=== PATIENT | female | born 1985 | race Caucasian/White ===

== ENCOUNTER 2020-04-01 18:28 | Outpatient (REF) | payer MEDICAID, SELFPAY ==
[2020-04-05 03:04] LABS: SARS-CoV-2 RNA Undetected (Undetected); SARS-CoV-2 Specimen Source Nasal
== END 2020-04-01 18:48 ==
LOC: NCHCN 18:28
PROVIDERS: Visit Provider Nurse Practitioner Community Health
DX: R05 Cough (principal); R06.02 Shortness of breath
CPT/HCPCS: U0003

== ENCOUNTER 2020-05-02 20:00 | Outpatient (REF) | payer MEDICAID, SELFPAY | END 2020-05-02 20:20 | LOC: NCHCN 20:00 | PROVIDERS: Visit Provider Nurse Practitioner Family | DX: R30.0 Dysuria (principal) | CPT/HCPCS: 87086 ==

== ENCOUNTER 2020-05-17 16:10 | Outpatient (REF) | payer MEDICAID, SELFPAY ==
[2020-05-22 02:01] LABS: SARS-CoV-2 RNA Undetected (Undetected); SARS-CoV-2 Specimen Source Nasal
== END 2020-05-17 16:30 ==
LOC: NCHCN 16:10
PROVIDERS: Visit Provider Family Medicine
DX: J02.9 Acute pharyngitis, unspecified (principal)
CPT/HCPCS: U0003

== ENCOUNTER 2020-07-09 11:34 | Outpatient (REF) | payer MEDICAID, SELFPAY ==
[2020-07-09 13:27] LABS: Abs Immature Grans 0.05 10^3/uL (0.0-0.06); Absolute Basophil Count 0.04 10^3/uL (0.0-0.2); Absolute Eosinophil Count 0.23 10^3/uL (0.0-0.7); Absolute Lymphocyte Count 3.92 10^3/uL (1.2-3.4); Absolute Neutrophil Count 7.29 10^3/uL (1.2-6.7); Basophils % 0.3; Eosinophils % 1.9; HCT 41.6 % (36.0-46.0); HGB 13.2 g/dL (11.2-15.7); Immature Grans % 0.4; Lymphocytes % 31.8; MCH 28.6 pg (27.0-33.0); MCHC 31.7 % (32.0-36.0); MPV 9.2 fL (8.0-11.0); Monocytes % 6.5; Neutrophils % 59.1; Nucleated RBC 0 %; Platelet Count 497 10^3/uL (130-400); RBC 4.62 10^6/uL (3.93-5.22); RDW 13.9 % (11.7-14.6); RDW-SD 45.8 fL; WBC 12.33 10^3/uL (4.4-10.8)
== END 2020-07-09 11:54 ==
LOC: NCHCN 11:34
PROVIDERS: PCP Nurse Practitioner Community Health; Visit Provider Internal Medicine Rheumatology
DX: M47.817 Spondylosis without myelopathy or radiculopathy, lumbosacral region (principal); Z79.899 Other long term (current) drug therapy
CPT/HCPCS: 85025

== ENCOUNTER 2020-09-02 16:57 | Outpatient (REF) | payer MEDICAID, SELFPAY ==
[2020-09-02 21:27] LABS: Abs Immature Grans 0.04 10^3/uL (0.0-0.06); Absolute Basophil Count 0.05 10^3/uL (0.0-0.2); Absolute Eosinophil Count 0.43 10^3/uL (0.0-0.7); Absolute Lymphocyte Count 3.86 10^3/uL (1.2-3.4); Absolute Monocyte Count 0.75 10^3/uL (0.1-0.8); Basophils % 0.4; Eosinophils % 3.7; HCT 41.7 % (36.0-46.0); HGB 13.6 g/dL (11.2-15.7); Immature Grans % 0.3; Lymphocytes % 33.5; MCH 29.2 pg (27.0-33.0); MCHC 32.6 % (32.0-36.0); MCV 89.5 fL (80-95); MPV 9.6 fL (8.0-11.0); Monocytes % 6.5; Neutrophils % 55.6; Nucleated RBC 0 %; Platelet Count 497 10^3/uL (130-400); RBC 4.66 10^6/uL (3.93-5.22); RDW-SD 45.8 fL; WBC 11.53 10^3/uL (4.4-10.8)
[2020-09-02 21:28] LABS: Absolute Neutrophil Count 6.41 10^3/uL (1.2-6.7)
[2020-09-02 21:34] LABS: C-Reactive Protein 1.12 mg/dL (0.0-0.3)
[2020-09-03 16:14] LABS: ESR 16 mm/hr (<or=20)
== END 2020-09-02 16:58 | disposition home or self-care (01) ==
LOC: NCHCN 16:57
PROVIDERS: PCP Nurse Practitioner Community Health; Visit Provider Nurse Practitioner Family
DX: R51.9 Headache, unspecified (principal); M47.9 Spondylosis, unspecified
CPT/HCPCS: 85652; 85025; 86140

== ENCOUNTER 2021-01-01 15:35 | Outpatient (REF) | payer MEDICAID, SELFPAY ==
[2021-01-01 22:05] LABS: Abs Immature Grans 0.09 10^3/uL (0.0-0.06); Absolute Basophil Count 0.06 10^3/uL (0.0-0.2); Absolute Monocyte Count 1.02 10^3/uL (0.1-0.8); Basophils % 0.4; Eosinophils % 2.4; HCT 38.7 % (36.0-46.0); HGB 12.8 g/dL (11.2-15.7); Immature Grans % 0.6; Lymphocytes % 32.1; MCH 29.5 pg (27.0-33.0); MCHC 33.1 % (32.0-36.0); MCV 89.2 fL (80-95); MPV 9.6 fL (8.0-11.0); Monocytes % 7.1; Neutrophils % 57.4; Nucleated RBC 0 %; Platelet Count 495 10^3/uL (130-400); RBC 4.34 10^6/uL (3.93-5.22); RDW-SD 45.8 fL; WBC 14.32 10^3/uL (4.4-10.8)
[2021-01-01 22:13] LABS: Absolute Eosinophil Count 0.34 10^3/uL (0.0-0.7); Absolute Neutrophil Count 8.22 10^3/uL (1.2-6.7)
== END 2021-01-01 15:36 | disposition home or self-care (01) ==
LOC: LBN 15:35
PROVIDERS: PCP Nurse Practitioner Community Health; Visit Provider Internal Medicine Rheumatology
DX: M47.817 Spondylosis without myelopathy or radiculopathy, lumbosacral region (principal); Z79.899 Other long term (current) drug therapy
CPT/HCPCS: 85025

== ENCOUNTER 2021-01-13 15:59 | Outpatient (CLI) | payer MEDICAID, SELFPAY ==
[2021-01-13] MEDS: Omnipaque 350 MG/ML 50 ML BTL IJ (14:37)
[2021-01-13] MEDS: Breeza Beverage 473 ML BTL PO (14:39)
[2021-01-13] MEDS: Normal Saline - Diluent 50 ML VIAL IV (16:32)
[2021-01-13] MEDS: Omnipaque 350 MG/ML 100 ML BTL IJ (16:33)
[2021-01-13] MEDS: Normal Saline Flush 10 ML SYR IVP (16:33)
--- NOTE | 2021-01-13 16:39 | DI.CT_ITS ---
Exam(s) CT ABDOMEN PELVIS W EXAM: CT ABDOMEN PELVIS W CLINICAL HISTORY: LLQ ABD PAIN R10.32 NO RF. TECHNIQUE: Imaging Protocol: Axial computed tomography images with coronal and sagittal reformatted images were created and reviewed CONTRAST MATERIAL: Intravenous: Omnipaque 350 Contrast volume:100 ml Oral: yes COMPARISON: No exams were available for comparison FINDINGS: ABDOMEN: Lung Bases: Normal where visualized. Liver: Moderate enlargement. Moderate hepatic steatosis.. No measurable mass. Gallbladder and biliary tract: Small stone dependent portion of gallbladder. No gallbladder wall thi ckening, biliary dilatation or pericholecystic fluid. Pancreas: Normal density, no abnormal calcifications or inflammatory process. Spleen: Normal. Kidneys: Normal size, contour and axis. 5 millimeter nonobstructing stone mid left kidney. No obstr uctive uropathy. No masses seen. Adrenal glands: No masses seen. Abdominal Aorta: Abdominal portion non-dilated. PELVIS: Bladder: No gross wall thickening. No calculi.No focal mass. Bowel: No obstruction or bowel wall thickening. Appendix normal. No diverticular changes visible. Peritoneal cavity: No ascites, collection or mesenteric inflammatory response. Bones: Within normal limits for age. Reproductive organs: Within normal limits. Lymph nodes: Unremarkable. Impression: 5 millimeter nonobstructing stone mid left kidney. No evidence of hydronephrosis. Bowel unremarkabl e. RADIATION DOSE DELIVERED: 1,421.41mGy.cm Total DLP DATA REPOSITORY: All CT scans at this facility are submitted to the National Radiology Data Registry (NRDR) Dose Index Registry (DIR) with the [employer] (ACR). RADIATION OPTIMIZATION: All CT scans at this facility use at least one of these dose optimization te chniques: automated exposure control; mA and/or kV adjustment per patient size (includes targeted exa ms where dose is matched to clinical indication); or iterative reconstruction.
--- NOTE | 2021-01-13 17:00 | DI.VRAD_ITS ---
PROCEDURE INFORMATION: Exam: CT Abdomen And Pelvis With Contrast Exam date and time: 01/13/2021 2:01 PM Age: 35 years old Clinical indication: Other: Llq pain TECHNIQUE: Imaging protocol: Computed tomography of the abdomen and pelvis with contrast. Total images: 1307 Contrast material: OMNIPAQUE 350; Contrast volume: 100 ml; Contrast route: INTRAVENOUS (IV); COMPARISON: No relevant prior studies available. FINDINGS: Liver: The liver is diffusely low in attenuation. Gallbladder and bile ducts: There is a tiny calcified gallstone. Pancreas: Normal. No ductal dilation. Spleen: Normal. No splenomegaly. Adrenal glands: Normal. No mass. Kidneys and ureters: There is a 0.5 cm left renal calculus. No hydronephrosis. Stomach and bowel: There is short-segment terminal ileal wall thickening (series 4, image 64). No dilated loops of bowel to suggest obstruction. Appendix: No evidence of appendicitis. Intraperitoneal space: Unremarkable. No free air. No significant fluid collection. Vasculature: Unremarkable. No abdominal aortic aneurysm. Lymph nodes: Unremarkable. No enlarged lymph nodes. Urinary bladder: Unremarkable as visualized. Reproductive: Unremarkable as visualized. Bones/joints: Unremarkable. No acute fracture. Soft tissues: Unremarkable. IMPRESSION: 1. Short segment terminal ileal wall thickening. No dilated loops of bowel to suggest obstruction. Differential considerations include inflammatory bowel disease and infectious etiology. 2. Left renal calculus 0.5 cm. No hydronephrosis. Dictated and Authenticated by: Philippe Calixto MD. Ordering:DEANDRA Trujillo MD
== END 2021-01-13 16:19 ==
PROVIDERS: PCP Nurse Practitioner Community Health; Visit Provider Nurse Practitioner Family
DX: N20.0 Calculus of kidney (principal); K63.89 Other specified diseases of intestine
CPT/HCPCS: 74177; J3490; Q9967

== ENCOUNTER 2021-01-13 19:40 | Outpatient (REF) | payer MEDICAID, SELFPAY ==
[2021-01-13 21:38] LABS: BUN 11 mg/dL (7-18); CREATININE 0.9 mg/dL (0.55-1.02); Calcium 8.8 mg/dL (8.5-10.1); Glucose 90 mg/dL (74-106); Potassium 3.9 mmol/L (3.5-5.1); Sodium 141 mmol/L (136-145)
[2021-01-13 21:39] LABS: Anion Gap 10.5 mmol/L (3-11); CO2 26.5 mmol/L (21.0-32.0); Chloride 104 mmol/L (98-107)
[2021-01-13 21:47] LABS: Abs Immature Grans 0.05 10^3/uL (0.0-0.06); Absolute Eosinophil Count 0.38 10^3/uL (0.0-0.7); Absolute Lymphocyte Count 4.06 10^3/uL (1.2-3.4); Absolute Monocyte Count 0.83 10^3/uL (0.1-0.8); Absolute Neutrophil Count 6.05 10^3/uL (1.2-6.7); Basophils % 0.4; Eosinophils % 3.3; HGB 13.1 g/dL (11.2-15.7); Immature Grans % 0.4; Lymphocytes % 35.6; MCH 29.2 pg (27.0-33.0); MCV 91.5 fL (80-95); MPV 9.6 fL (8.0-11.0); Monocytes % 7.3; Nucleated RBC 0 %; Platelet Count 534 10^3/uL (130-400); RBC 4.48 10^6/uL (3.93-5.22); RDW 13.4 % (11.7-14.6); RDW-SD 45.7 fL; WBC 11.41 10^3/uL (4.4-10.8)
[2021-01-13 21:48] LABS: Absolute Basophil Count 0.05 10^3/uL (0.0-0.2)
[2021-01-13 21:53] LABS: ESR 14 mm/hr (0-20)
[2021-01-14 16:56] LABS: CRP, High Sensitivity 4.16 mg/L (See Note)
== END 2021-01-13 19:41 | disposition home or self-care (01) ==
LOC: LBN 19:40
PROVIDERS: PCP Nurse Practitioner Community Health; Visit Provider Nurse Practitioner Family
DX: R10.32 Left lower quadrant pain (principal)
CPT/HCPCS: 80048; 85652; 86141; 85025

== ENCOUNTER 2021-06-10 10:55 | Outpatient (REF) | payer MEDICAID, SELFPAY ==
[2021-06-10 15:01] LABS: ALT 77 U/L (14-59); AST 59 U/L (15-37); Albumin 3.8 g/dL (3.4-5.0); Alkaline Phosphatase 76 U/L (46-116); Anion Gap 8.6 mmol/L (3-11); BUN 14 mg/dL (7-18); Bilirubin, Total 0.4 mg/dL (0.2-1.0); C-Reactive Protein 0.83 mg/dL (0.0-0.3); CO2 26.4 mmol/L (21.0-32.0); CREATININE 0.9 mg/dL (0.55-1.02); Calcium 8.9 mg/dL (8.5-10.1); Chloride 105 mmol/L (98-107); Glucose 90 mg/dL (74-106); Potassium 4.3 mmol/L (3.5-5.1); Sodium 140 mmol/L (136-145); Total Protein 7.1 g/dL (6.4-8.2)
== END 2021-06-10 10:56 | disposition home or self-care (01) ==
LOC: LBN 10:55
PROVIDERS: PCP Nurse Practitioner Community Health; Visit Provider Internal Medicine Rheumatology
DX: M06.9 Rheumatoid arthritis, unspecified (principal); Z79.899 Other long term (current) drug therapy
CPT/HCPCS: 80053; 86140

== ENCOUNTER 2021-06-19 15:08 | Outpatient (REF) | payer MEDICAID, SELFPAY ==
[2021-06-19 21:28] LABS: Abs Immature Grans 0.03 10^3/uL (0.0-0.06); Absolute Basophil Count 0.05 10^3/uL (0.0-0.2); Absolute Lymphocyte Count 3.56 10^3/uL (1.2-3.4); Absolute Monocyte Count 0.74 10^3/uL (0.1-0.8); Absolute Neutrophil Count 5.19 10^3/uL (1.2-6.7); Basophils % 0.5; HGB 12.7 g/dL (11.2-15.7); Immature Grans % 0.3; Lymphocytes % 36.1; MCHC 31.8 % (32.0-36.0); MCV 88.3 fL (80-95); MPV 9.4 fL (8.0-11.0); Monocytes % 7.5; Neutrophils % 52.6; Nucleated RBC 0 %; Platelet Count 555 10^3/uL (130-400); RBC 4.53 10^6/uL (3.93-5.22); RDW 13.6 % (11.7-14.6); WBC 9.87 10^3/uL (4.4-10.8)
[2021-06-23 10:27] LABS: Hepatitis B Surface Ag Negative (Negative)
== END 2021-06-19 15:09 | disposition home or self-care (01) ==
LOC: LBN 15:08
PROVIDERS: PCP Nurse Practitioner Community Health; Visit Provider Internal Medicine Rheumatology
DX: M06.9 Rheumatoid arthritis, unspecified (principal); Z79.899 Other long term (current) drug therapy
CPT/HCPCS: 87340; 85025

== ENCOUNTER 2021-07-02 16:16 | Outpatient (CLI) | payer MEDICAID, SELFPAY ==
--- NOTE | 2021-07-02 16:14 | DI.RAD_ITS ---
Exam(s) XR HAND LT COMPLETE EXAM: XR HAND LT COMPLETE CLINICAL HISTORY: PAIN LT HAND M79.642, TOOK A PUNCH TO THE LEFT HAND AND WRIST. TECHNIQUE: 2D digital imaging was performed. COMPARISON: No exams were available for comparison FINDINGS: There is no evidence of fracture or dislocation. No abnormal soft tissue densities. No osseous lesi ons. No radiopaque foreign body. IMPRESSION: DATA REPOSITORY: RADIATION DOSE DELIVERED:
--- NOTE | 2021-07-02 16:14 | DI.RAD_ITS ---
Exam(s) XR WRIST LT COMP NAVICULAR EXAM: XR WRIST LT COMP NAVICULAR CLINICAL HISTORY: PAIN LT HAND M79.642. TECHNIQUE: 2D digital imaging was performed. COMPARISON: CR XR HAND LT COMPLETE from 07/02/2021 FINDINGS: No evidence of acute fracture nor dislocation. Mild negative ulnar variance. Scapholunate distance is normal. No scaphoid fracture evident. IMPRESSION: No fracture evident. DATA REPOSITORY: RADIATION DOSE DELIVERED:
--- NOTE | 2021-07-02 16:28 | DI.VRAD_ITS ---
PROCEDURE INFORMATION: Exam: XR Left Wrist Exam date and time: 07/02/2021 4:15 PM Age: 36 years old Clinical indication: Wrist; Patient HX: Left hand pain TECHNIQUE: Imaging protocol: XR Left wrist. Views: 3 or more views. COMPARISON: CR XR HAND LT COMPLETE 07/02/2021 4:12 PM FINDINGS: Bones/joints: Normal. Soft tissues: Normal. IMPRESSION: No acute findings. Dictated and Authenticated by: Jazmin Noble MD. Ordering:ERNESTO Fernández MD
--- NOTE | 2021-07-02 16:37 | DI.VRAD_ITS ---
PROCEDURE INFORMATION: Exam: XR Left Hand Exam date and time: 07/02/2021 4:15 PM Age: 36 years old Clinical indication: Patient HX: Left hand pain TECHNIQUE: Imaging protocol: XR Left hand. Views: 3 or more views. COMPARISON: No relevant prior studies available. FINDINGS: Bones/joints: Normal. Soft tissues: Normal. IMPRESSION: No acute findings. Dictated and Authenticated by: Jazmin Noble MD. Ordering:ERNESTO Fernández MD
== END 2021-07-02 16:36 ==
PROVIDERS: PCP Nurse Practitioner Community Health; Visit Provider Physician Assistant Medical
DX: M79.642 Pain in left hand (principal); M25.532 Pain in left wrist
CPT/HCPCS: 73110; 73130

== ENCOUNTER 2021-08-06 09:50 | Outpatient (REF) | payer MEDICAID, SELFPAY ==
[2021-08-06 14:41] LABS: Abs Immature Grans 0.03 10^3/uL (0.0-0.06); Absolute Basophil Count 0.05 10^3/uL (0.0-0.2); Absolute Eosinophil Count 0.28 10^3/uL (0.0-0.7); Absolute Lymphocyte Count 3.35 10^3/uL (1.2-3.4); Absolute Monocyte Count 0.62 10^3/uL (0.1-0.8); Absolute Neutrophil Count 4.22 10^3/uL (1.2-6.7); Basophils % 0.6; Eosinophils % 3.3; HGB 12.6 g/dL (11.2-15.7); Immature Grans % 0.4; Lymphocytes % 39.2; MCH 28.3 pg (27.0-33.0); MCHC 31.5 % (32.0-36.0); MCV 89.9 fL (80-95); MPV 9.7 fL (8.0-11.0); Monocytes % 7.3; Neutrophils % 49.2; Nucleated RBC 0 %; Platelet Count 545 10^3/uL (130-400); RBC 4.45 10^6/uL (3.93-5.22); RDW 14.6 % (11.7-14.6); RDW-SD 48.5 fL; WBC 8.55 10^3/uL (4.4-10.8)
[2021-08-06 15:17] LABS: ALT 112 U/L (14-59); AST 78 U/L (15-37); Alkaline Phosphatase 80 U/L (46-116); Anion Gap 10.8 mmol/L (3-11); BUN 9 mg/dL (7-18); Bilirubin, Total 0.5 mg/dL (0.2-1.0); C-Reactive Protein 0.42 mg/dL (0.0-0.3); CO2 25.2 mmol/L (21.0-32.0); CREATININE 0.7 mg/dL (0.55-1.02); Calcium 8.8 mg/dL (8.5-10.1); Chloride 102 mmol/L (98-107); Glucose 91 mg/dL (74-106); Potassium 4.1 mmol/L (3.5-5.1); Sodium 138 mmol/L (136-145); Total Protein 7.5 g/dL (6.4-8.2)
== END 2021-08-06 09:51 | disposition home or self-care (01) ==
LOC: LBN 09:50
PROVIDERS: PCP Nurse Practitioner Community Health; Visit Provider Internal Medicine Rheumatology
DX: M06.8A Other specified rheumatoid arthritis, other specified site (principal); Z79.899 Other long term (current) drug therapy
CPT/HCPCS: 80053; 85025; 86140

== ENCOUNTER 2021-08-13 10:12 | Outpatient (REF) | payer MEDICAID, SELFPAY | END 2021-08-13 10:13 | disposition home or self-care (01) | LOC: NCHCN 10:12 | PROVIDERS: PCP Nurse Practitioner Community Health; Visit Provider Physician Assistant Medical | DX: J02.9 Acute pharyngitis, unspecified (principal) | CPT/HCPCS: 87070 ==

== ENCOUNTER 2021-08-21 18:56 | Outpatient (REF) | payer MEDICAID, SELFPAY ==
[2021-08-21 15:02] LABS: Abs Immature Grans 0.06 10^3/uL (0.0-0.06); Absolute Basophil Count 0.07 10^3/uL (0.0-0.2); Absolute Eosinophil Count 0.35 10^3/uL (0.0-0.7); Absolute Lymphocyte Count 3.12 10^3/uL (1.2-3.4); Absolute Neutrophil Count 7.05 10^3/uL (1.2-6.7); Basophils % 0.6; HCT 40.9 % (36.0-46.0); Immature Grans % 0.5; Lymphocytes % 26.8; MCH 28.4 pg (27.0-33.0); MCHC 31.8 % (32.0-36.0); MCV 89.5 fL (80-95); MPV 9.5 fL (8.0-11.0); Monocytes % 8.6; Neutrophils % 60.5; Nucleated RBC 0 %; Platelet Count 514 10^3/uL (130-400); RBC 4.57 10^6/uL (3.93-5.22); RDW 14.5 % (11.7-14.6); RDW-SD 47.3 fL; WBC 11.66 10^3/uL (4.4-10.8)
[2021-08-21 15:21] LABS: ALT 94 U/L (14-59); AST 65 U/L (15-37); Albumin 3.9 g/dL (3.4-5.0); Alkaline Phosphatase 83 U/L (46-116); Anion Gap 9.8 mmol/L (3-11); BUN 8 mg/dL (7-18); Bilirubin, Total 0.3 mg/dL (0.2-1.0); C-Reactive Protein 1.29 mg/dL (0.0-0.3); CO2 23.2 mmol/L (21.0-32.0); CREATININE 0.9 mg/dL (0.55-1.02); Chloride 105 mmol/L (98-107); Glucose 84 mg/dL (74-106); Sodium 138 mmol/L (136-145); TSH 0.95 uIU/mL (0.36-3.74); Total Protein 7.6 g/dL (6.4-8.2)
== END 2021-08-21 18:57 | disposition home or self-care (01) ==
LOC: LBN 18:56
PROVIDERS: PCP Nurse Practitioner Community Health; Visit Provider Internal Medicine Rheumatology
DX: Z13.29 Encounter for screening for other suspected endocrine disorder (principal); M06.0A Rheumatoid arthritis without rheumatoid factor, other specified site; Z79.899 Other long term (current) drug therapy
CPT/HCPCS: 80053; 84443; 85025; 86140

== ENCOUNTER 2021-09-15 10:40 | Outpatient (REF) | payer MEDICAID, SELFPAY ==
[2021-09-15 14:27] LABS: Abs Immature Grans 0.05 10^3/uL (0.0-0.06); Absolute Basophil Count 0.09 10^3/uL (0.0-0.2); Absolute Eosinophil Count 0.35 10^3/uL (0.0-0.7); Absolute Lymphocyte Count 2.93 10^3/uL (1.2-3.4); Basophils % 0.7; Eosinophils % 2.8; HCT 39.9 % (36.0-46.0); HGB 12.6 g/dL (11.2-15.7); Immature Grans % 0.4; Lymphocytes % 23.2; MCH 28.1 pg (27.0-33.0); MCHC 31.6 % (32.0-36.0); MCV 89.1 fL (80-95); MPV 9.6 fL (8.0-11.0); Monocytes % 7.4; Neutrophils % 65.5; Nucleated RBC 0 %; Platelet Count 594 10^3/uL (130-400); RBC 4.48 10^6/uL (3.93-5.22); RDW 14.5 % (11.7-14.6); RDW-SD 47.5 fL; WBC 12.65 10^3/uL (4.4-10.8)
[2021-09-15 14:28] LABS: Absolute Monocyte Count 0.94 10^3/uL (0.1-0.8); Absolute Neutrophil Count 8.29 10^3/uL (1.2-6.7)
[2021-09-15 15:02] LABS: ALT 40 U/L (14-59); AST 21 U/L (15-37); Albumin 3.6 g/dL (3.4-5.0); Alkaline Phosphatase 85 U/L (46-116); Bilirubin, Total 0.4 mg/dL (0.2-1.0); Ferritin 46 ng/mL (8-252); Total Protein 7.2 g/dL (6.4-8.2)
[2021-09-15 15:11] LABS: Bilirubin, Direct 0.2 mg/dL (0.0-0.2)
[2021-09-16 09:38] LABS: Hep A Total Ab w Rflx IgM Negative (Negative)
== END 2021-09-15 10:41 | disposition home or self-care (01) ==
LOC: NCHCN 10:40
PROVIDERS: Internal Medicine Rheumatology; PCP Nurse Practitioner Community Health; Visit Provider Nurse Practitioner Family
DX: R74.8 Abnormal levels of other serum enzymes (principal); K75.81 Nonalcoholic steatohepatitis (NASH)
CPT/HCPCS: 80076; 86709; 82728; 85025; 86140

== ENCOUNTER 2021-10-14 12:38 | Outpatient (REF) | payer MEDICAID, SELFPAY ==
[2021-10-14 17:01] LABS: Abs Immature Grans 0.02 10^3/uL (0.0-0.06); Absolute Basophil Count 0.05 10^3/uL (0.0-0.2); Absolute Eosinophil Count 0.31 10^3/uL (0.0-0.7); Absolute Lymphocyte Count 3.89 10^3/uL (1.2-3.4); Absolute Monocyte Count 0.77 10^3/uL (0.1-0.8); Absolute Neutrophil Count 3.91 10^3/uL (1.2-6.7); Basophils % 0.6; Eosinophils % 3.5; HCT 40.6 % (36.0-46.0); HGB 12.7 g/dL (11.2-15.7); Immature Grans % 0.2; Lymphocytes % 43.5; MCH 27.9 pg (27.0-33.0); MCHC 31.3 % (32.0-36.0); MCV 89.2 fL (80-95); MPV 9.4 fL (8.0-11.0); Monocytes % 8.6; Neutrophils % 43.6; Nucleated RBC 0 %; Platelet Count 492 10^3/uL (130-400); RBC 4.55 10^6/uL (3.93-5.22); RDW 14.3 % (11.7-14.6); RDW-SD 46.7 fL; WBC 8.95 10^3/uL (4.4-10.8)
[2021-10-14 17:12] LABS: ALT 53 U/L (14-59); AST 32 U/L (15-37); Albumin 3.9 g/dL (3.4-5.0); Alkaline Phosphatase 75 U/L (46-116); Bilirubin, Direct 0.1 mg/dL (0.0-0.2); Bilirubin, Total 0.5 mg/dL (0.2-1.0); C-Reactive Protein 0.62 mg/dL (0.0-0.3); CREATININE 0.8 mg/dL (0.55-1.02); Total Protein 7.2 g/dL (6.4-8.2)
== END 2021-10-14 12:39 | disposition home or self-care (01) ==
LOC: LBN 12:38
PROVIDERS: PCP Nurse Practitioner Community Health; Visit Provider Internal Medicine Rheumatology
DX: R74.8 Abnormal levels of other serum enzymes (principal); M06.0A Rheumatoid arthritis without rheumatoid factor, other specified site
CPT/HCPCS: 80076; 82565; 85025; 86140

== ENCOUNTER 2021-12-02 10:13 | Outpatient (REF) | payer MEDICAID, SELFPAY ==
[2021-12-02 14:37] LABS: Abs Immature Grans 0.03 10^3/uL (0.0-0.06); Absolute Basophil Count 0.05 10^3/uL (0.0-0.2); Absolute Eosinophil Count 0.52 10^3/uL (0.0-0.7); Absolute Lymphocyte Count 3.47 10^3/uL (1.2-3.4); Absolute Monocyte Count 0.64 10^3/uL (0.1-0.8); Absolute Neutrophil Count 4.42 10^3/uL (1.2-6.7); Basophils % 0.5; Eosinophils % 5.7; HCT 40.2 % (36.0-46.0); HGB 12.8 g/dL (11.2-15.7); Immature Grans % 0.3; MCHC 31.8 % (32.0-36.0); MCV 88 fL (80-95); MPV 9.6 fL (8.0-11.0); Neutrophils % 48.5; Platelet Count 537 10^3/uL (130-400); RBC 4.57 10^6/uL (3.93-5.22); RDW 14.6 % (11.7-14.6); RDW-SD 47.1 fL; WBC 9.13 10^3/uL (4.4-10.8)
[2021-12-02 15:59] LABS: ALT 70 U/L (14-59); AST 44 U/L (15-37); Albumin 3.8 g/dL (3.4-5.0); Alkaline Phosphatase 83 U/L (46-116); Bilirubin, Total 0.3 mg/dL (0.2-1.0); C-Reactive Protein 0.54 mg/dL (0.0-0.3); Calcium 8.6 mg/dL (8.5-10.1); Chloride 103 mmol/L (98-107); Glucose 99 mg/dL (74-106); Potassium 4.1 mmol/L (3.5-5.1); Sodium 139 mmol/L (136-145); Total Protein 7.3 g/dL (6.4-8.2)
[2021-12-02 16:18] LABS: BUN 10 mg/dL (7-18)
[2021-12-03 10:08] LABS: IgA 326 mg/dL (85-499)
[2021-12-03 18:18] LABS: Tissue Transglutaminase Ab IgA <1.2 U/mL
== END 2021-12-02 10:14 | disposition home or self-care (01) ==
LOC: LBN 10:13
PROVIDERS: PCP Nurse Practitioner Community Health; Visit Provider Internal Medicine Rheumatology
DX: M06.0A Rheumatoid arthritis without rheumatoid factor, other specified site (principal); Z79.899 Other long term (current) drug therapy; R14.0 Abdominal distension (gaseous)
CPT/HCPCS: 80053; 82784; 83516; 85025; 86140

== ENCOUNTER 2022-02-12 22:18 | Outpatient (REF) | payer MEDICAID, SELFPAY ==
[2022-02-12 22:23] LABS: Abs Immature Grans 0.03 10^3/uL (0.0-0.06); Absolute Basophil Count 0.06 10^3/uL (0.0-0.2); Absolute Eosinophil Count 0.19 10^3/uL (0.0-0.7); Absolute Lymphocyte Count 3.89 10^3/uL (1.2-3.4); Absolute Monocyte Count 0.96 10^3/uL (0.1-0.8); Absolute Neutrophil Count 7.78 10^3/uL (1.2-6.7); Basophils % 0.5; Eosinophils % 1.5; HCT 39.7 % (36.0-46.0); HGB 12.7 g/dL (11.2-15.7); Immature Grans % 0.2; Lymphocytes % 30.1; MCV 88 fL (80-95); MPV 9.6 fL (8.0-11.0); Monocytes % 7.4; Neutrophils % 60.3; Platelet Count 557 10^3/uL (130-400); RBC 4.53 10^6/uL (3.93-5.22); RDW 14.4 % (11.7-14.6); RDW-SD 46.5 fL; WBC 12.91 10^3/uL (4.4-10.8)
[2022-02-12 22:29] LABS: ALT 62 U/L (14-59); AST 42 U/L (15-37); Albumin 3.9 g/dL (3.4-5.0); Alkaline Phosphatase 73 U/L (46-116); Anion Gap 9.1 mmol/L (3-11); BUN 10 mg/dL (7-18); Bilirubin, Direct 0.1 mg/dL (0.0-0.2); Bilirubin, Total 0.4 mg/dL (0.2-1.0); CO2 27.9 mmol/L (21.0-32.0); CREATININE 0.9 mg/dL (0.55-1.02); Calcium 8.8 mg/dL (8.5-10.1); Chloride 103 mmol/L (98-107); Glucose 96 mg/dL (74-106); Sodium 140 mmol/L (136-145); Total Protein 7.8 g/dL (6.4-8.2)
== END 2022-02-12 22:19 | disposition home or self-care (01) ==
LOC: LBN 22:18
PROVIDERS: PCP Nurse Practitioner Community Health; Visit Provider Internal Medicine Rheumatology
DX: Z79.899 Other long term (current) drug therapy; Z13.828 Encounter for screening for other musculoskeletal disorder
CPT/HCPCS: 80053; 80076; 82728; 83540; 83550; 85025; 86140

== ENCOUNTER 2022-02-16 15:35 | Outpatient (REF) | payer MEDICAID, SELFPAY ==
[2022-02-16 21:13] LABS: Iron 31 ug/dL (50-170); Total Iron Binding Capacity 410 ug/dL (250-450); Transferrin Sat 8 % (15-50)
[2022-02-16 21:27] LABS: Ferritin 25 ng/mL (8-252)
== END 2022-02-16 15:36 | disposition home or self-care (01) ==
LOC: LBN 15:35
PROVIDERS: PCP Nurse Practitioner Community Health; Visit Provider Internal Medicine
DX: D75.838 Other thrombocytosis (principal)
CPT/HCPCS: 82728; 83540; 83550

== ENCOUNTER 2022-05-05 10:47 | Outpatient (REF) | payer MEDICAID, SELFPAY ==
[2022-05-05 15:12] LABS: Abs Immature Grans 0.06 10^3/uL (0.0-0.06); Absolute Basophil Count 0.05 10^3/uL (0.0-0.2); Absolute Eosinophil Count 0.14 10^3/uL (0.0-0.7); Absolute Monocyte Count 1.12 10^3/uL (0.1-0.8); Absolute Neutrophil Count 10.15 10^3/uL (1.2-6.7); Basophils % 0.3; Eosinophils % 0.9; HCT 43.5 % (36.0-46.0); HGB 14.1 g/dL (11.2-15.7); Immature Grans % 0.4; Lymphocytes % 24.8; MCH 28.2 pg (27.0-33.0); MCHC 32.4 % (32.0-36.0); MCV 87 fL (80-95); MPV 9.5 fL (8.0-11.0); Monocytes % 7.3; Neutrophils % 66.3; Platelet Count 612 10^3/uL (130-400); RDW 14.8 % (11.7-14.6); RDW-SD 47.9 fL; WBC 15.31 10^3/uL (4.4-10.8)
[2022-05-05 15:21] LABS: Iron 74 ug/dL (50-170); Total Iron Binding Capacity 424 ug/dL (250-450)
[2022-05-05 15:39] LABS: ALT 31 U/L (14-59); AST 25 U/L (15-37); Alkaline Phosphatase 77 U/L (46-116); Anion Gap 8.4 mmol/L (3-11); BUN 12 mg/dL (7-18); Bilirubin, Total 0.6 mg/dL (0.2-1.0); CO2 27.6 mmol/L (21.0-32.0); CREATININE 1.1 mg/dL (0.55-1.02); Calcium 9.1 mg/dL (8.5-10.1); Chloride 103 mmol/L (98-107); Estimated GFR 65.96 (mL/min/1.73m2); Glucose 89 mg/dL (74-106); Potassium 3.6 mmol/L (3.5-5.1); Sodium 139 mmol/L (136-145); Total Protein 8.1 g/dL (6.4-8.2)
[2022-05-05 16:09] LABS: Ferritin 37 ng/mL (8-252)
== END 2022-05-05 10:48 | disposition home or self-care (01) ==
LOC: LBN 10:47
PROVIDERS: PCP Nurse Practitioner Community Health; Visit Provider Internal Medicine Rheumatology
DX: M47.817 Spondylosis without myelopathy or radiculopathy, lumbosacral region (principal); Z79.899 Other long term (current) drug therapy; D75.838 Other thrombocytosis
CPT/HCPCS: 80053; 82728; 83540; 83550; 85025; 86140

== ENCOUNTER 2022-06-22 14:12 | Outpatient (REF) | payer MEDICAID, SELFPAY ==
[2022-06-22 15:06] LABS: Abs Immature Grans 0.04 10^3/uL (0.0-0.06); Absolute Basophil Count 0.06 10^3/uL (0.0-0.2); Absolute Eosinophil Count 0.29 10^3/uL (0.0-0.7); Absolute Lymphocyte Count 2.47 10^3/uL (1.2-3.4); Absolute Monocyte Count 0.68 10^3/uL (0.1-0.8); Absolute Neutrophil Count 5.57 10^3/uL (1.2-6.7); Basophils % 0.7; Eosinophils % 3.2; HCT 41.7 % (36.0-46.0); HGB 13.4 g/dL (11.2-15.7); Immature Grans % 0.4; Lymphocytes % 27.1; MCH 28.9 pg (27.0-33.0); MCHC 32.1 % (32.0-36.0); MCV 90 fL (80-95); MPV 9.2 fL (8.0-11.0); Monocytes % 7.5; Neutrophils % 61.1; Platelet Count 482 10^3/uL (130-400); RBC 4.63 10^6/uL (3.93-5.22); RDW 14.6 % (11.7-14.6); RDW-SD 48.4 fL; WBC 9.11 10^3/uL (4.4-10.8)
[2022-06-22 15:30] LABS: ALT 44 U/L (14-59); AST 32 U/L (15-37); Albumin 3.5 g/dL (3.4-5.0); Alkaline Phosphatase 69 U/L (46-116); Anion Gap 7.6 mmol/L (3-11); BUN 8 mg/dL (7-18); Bilirubin, Total 0.4 mg/dL (0.2-1.0); C-Reactive Protein 1.59 mg/dL (0.0-0.3); CO2 26.4 mmol/L (21.0-32.0); Calcium 8.9 mg/dL (8.5-10.1); Chloride 104 mmol/L (98-107); Estimated GFR 73.49 (mL/min/1.73m2); Glucose 100 mg/dL (74-106); Potassium 3.9 mmol/L (3.5-5.1); Sodium 138 mmol/L (136-145); Total Protein 7.5 g/dL (6.4-8.2)
== END 2022-06-22 14:13 | disposition home or self-care (01) ==
LOC: LBN 14:12
PROVIDERS: PCP Nurse Practitioner Community Health; Visit Provider Internal Medicine Rheumatology
DX: M06.061 Rheumatoid arthritis without rheumatoid factor, right knee (principal); Z79.899 Other long term (current) drug therapy
CPT/HCPCS: 80053; 85025; 86140

== ENCOUNTER 2022-08-17 16:33 | Outpatient (REF) | payer MEDICAID, SELFPAY ==
[2022-08-17 21:58] LABS: Abs Immature Grans 0.04 10^3/uL (0.0-0.06); Absolute Basophil Count 0.05 10^3/uL (0.0-0.2); Absolute Eosinophil Count 0.46 10^3/uL (0.0-0.7); Absolute Monocyte Count 0.72 10^3/uL (0.1-0.8); Basophils % 0.5; Eosinophils % 4.4; HGB 13.2 g/dL (11.2-15.7); Immature Grans % 0.4; Lymphocytes % 30.6; MCH 29.3 pg (27.0-33.0); MCHC 32.2 % (32.0-36.0); MCV 91 fL (80-95); MPV 9.2 fL (8.0-11.0); Monocytes % 6.9; Neutrophils % 57.2; Platelet Count 577 10^3/uL (130-400); RBC 4.51 10^6/uL (3.93-5.22); RDW-SD 46.9 fL; WBC 10.47 10^3/uL (4.4-10.8)
[2022-08-17 22:11] LABS: ALT 45 U/L (14-59); AST 32 U/L (15-37); Albumin 3.8 g/dL (3.4-5.0); Alkaline Phosphatase 89 U/L (46-116); Anion Gap 8.1 mmol/L (3-11); BUN 11 mg/dL (7-18); Bilirubin, Total 0.3 mg/dL (0.2-1.0); C-Reactive Protein 1.25 mg/dL (0.0-0.3); CO2 26.9 mmol/L (21.0-32.0); CREATININE 0.8 mg/dL (0.55-1.02); Calcium 8.9 mg/dL (8.5-10.1); Chloride 105 mmol/L (98-107); Estimated GFR 96.06 (mL/min/1.73m2); Glucose 108 mg/dL (74-106); LDH 284 U/L (81-234); Potassium 3.6 mmol/L (3.5-5.1); Sodium 140 mmol/L (136-145); Total Protein 7.5 g/dL (6.4-8.2)
== END 2022-08-17 16:34 | disposition home or self-care (01) ==
LOC: LBN 16:33
PROVIDERS: PCP Nurse Practitioner Community Health; Visit Provider Internal Medicine Rheumatology
DX: Z79.899 Other long term (current) drug therapy; D75.839 Thrombocytosis, unspecified; D72.820 Lymphocytosis (symptomatic)
CPT/HCPCS: 80053; 83615; 85025; 86140

== ENCOUNTER 2022-09-09 18:06 | Outpatient (REF) | payer MEDICAID, SELFPAY ==
[2022-09-09 21:47] LABS: Calculated LDL 116 mg/dL (<100); Cholesterol 188 mg/dL (<200); HDL Cholesterol 46 mg/dL (40-60); Triglyceride 132 mg/dL (<150)
[2022-09-11 10:31] LABS: Hepatitis C Ab w Rflx HCV PCR Negative (Negative)
== END 2022-09-09 18:07 | disposition home or self-care (01) ==
LOC: NCHCN 18:06
PROVIDERS: PCP Nurse Practitioner Community Health; Visit Provider Registered Nurse
DX: Z13.29 Encounter for screening for other suspected endocrine disorder (principal); Z13.220 Encounter for screening for lipoid disorders; Z11.59 Encounter for screening for other viral diseases; Z00.00 Encounter for general adult medical examination without abnormal findings
CPT/HCPCS: 80061; 86803; 84443

== ENCOUNTER 2022-10-22 17:50 | Outpatient (REF) | payer MEDICAID, SELFPAY | END 2022-10-22 17:51 | disposition home or self-care (01) | LOC: LBN 17:50 | PROVIDERS: PCP Nurse Practitioner Community Health; Visit Provider Physician Assistant Medical | DX: J02.9 Acute pharyngitis, unspecified (principal) | CPT/HCPCS: 87070 ==

== ENCOUNTER 2022-11-09 15:15 | Outpatient (CLI) | payer MEDICAID, SELFPAY ==
--- NOTE | 2022-11-09 | DI.RAD_ITS ---
Exam(s) XR KNEE LT 3V AP,LAT,JELENA EXAM: XR KNEE LT 3V AP,LAT,TUNz CLINICAL HISTORY: LT KNEE PAIN, M25.562. TECHNIQUE: 2D digital imaging was performed. Three views. COMPARISON: CR,XR XR WRIST LT COMP NAVICULAR from 07/02/2021 FINDINGS: BONES: No acute fracture is present. No bony destructive lesion is seen. JOINTS: There is no joint space narrowing. There is mild spurring at the medial femoral tibial joint and articular aspect of the patella. The knee is normally aligned. A small joint effusion is seen. SOFT TISSUE: Normal. IMPRESSION: Mild degenerative changes. DATA REPOSITORY: RADIATION DOSE DELIVERED:
--- NOTE | 2022-11-09 10:10 | DI.US_ITS ---
Exam(s) US LOWER EXTREMITY VENOUS LT EXAM: US LOWER EXTREMITY VENOUS LT CLINICAL HISTORY: LT LOWER LEG PAIN, M79.662. TECHNIQUE: Lower extremity venous ultrasound performed using grayscale, color-flow, and spectral Do ppler analysis. COMPARISON: No exams were available for comparison FINDINGS: The common femoral, femoral and popliteal veins demonstrate normal compressibility, augmentation, and color Doppler. The posterior tibial veins are patent. No saphenous vein thrombosis or other superfi cial venous thrombosis is seen. No hematoma or Leon's cyst is seen. IMPRESSION: Negative lower extremity ultrasound. No evidence of DVT. DATA REPOSITORY:
== END 2022-11-09 15:35 ==
LOC: DI 15:16
PROVIDERS: PCP Nurse Practitioner Community Health; Visit Provider Nurse Practitioner Family
DX: M79.662 Pain in left lower leg (principal)
CPT/HCPCS: 73562; 93971

== ENCOUNTER 2022-11-18 10:56 | Outpatient (REF) | payer MEDICAID, SELFPAY ==
[2022-11-18 16:07] LABS: Abs Immature Grans 0.08 10^3/uL (0.0-0.06); Absolute Basophil Count 0.06 10^3/uL (0.0-0.2); Absolute Eosinophil Count 0.25 10^3/uL (0.0-0.7); Absolute Lymphocyte Count 2.59 10^3/uL (1.2-3.4); Absolute Monocyte Count 0.69 10^3/uL (0.1-0.8); Basophils % 0.4; Eosinophils % 1.8; HCT 42.4 % (36.0-46.0); HGB 13.6 g/dL (11.2-15.7); Immature Grans % 0.6; Lymphocytes % 18.4; MCH 29.3 pg (27.0-33.0); MCHC 32.1 % (32.0-36.0); MCV 91 fL (80-95); MPV 9.4 fL (8.0-11.0); Monocytes % 4.9; Neutrophils % 73.9; Platelet Count 557 10^3/uL (130-400); RBC 4.64 10^6/uL (3.93-5.22); RDW 14.6 % (11.7-14.6); RDW-SD 49.2 fL; WBC 14.09 10^3/uL (4.4-10.8)
[2022-11-18 16:08] LABS: Absolute Neutrophil Count 10.41 10^3/uL (1.2-6.7)
[2022-11-18 16:41] LABS: ALT 25 U/L (14-59); AST 19 U/L (15-37); Albumin 3.5 g/dL (3.4-5.0); Alkaline Phosphatase 76 U/L (46-116); Anion Gap 11.9 mmol/L (3-11); BUN 10 mg/dL (7-18); Bilirubin, Total 0.4 mg/dL (0.2-1.0); C-Reactive Protein 0.52 mg/dL (0.0-0.3); CO2 24.1 mmol/L (21.0-32.0); Calcium 8.8 mg/dL (8.5-10.1); Chloride 102 mmol/L (98-107); Estimated GFR 73.49 (mL/min/1.73m2); Glucose 166 mg/dL (74-106); Potassium 3.7 mmol/L (3.5-5.1); Sodium 138 mmol/L (136-145); Total Protein 7.5 g/dL (6.4-8.2)
[2022-11-20 10:39] LABS: Lyme Ab w Rflx to Lyme Confirm Negative (Negative)
[2022-11-22 17:14] LABS: Anaplasma phagocytophilum Negative (Negative); B. miyamotoi PCR Negative (Negative); Babesia divergens/MO-1 Negative (Negative); Babesia duncani Negative (Negative); Babesia microti Negative (Negative); Ehrlichia chaffeensis Negative (Negative); Ehrlichia ewingii/canis Negative (Negative); Ehrlichia muris eauclairensis Negative (Negative)
[2022-11-23 15:15] LABS: Antistrep-O Titer 217 IU/mL (0 - 530)
== END 2022-11-18 10:57 | disposition home or self-care (01) ==
LOC: LBN 10:56
PROVIDERS: PCP Registered Nurse; Visit Provider Internal Medicine Rheumatology
DX: J02.0 Streptococcal pharyngitis (principal); M25.462 Effusion, left knee; M45.0 Ankylosing spondylitis of multiple sites in spine
CPT/HCPCS: 80053; 87798; 85025; 86060; 86140; 86618

== ENCOUNTER 2023-06-21 11:47 | Outpatient (REF) | payer MEDICAID, SELFPAY ==
--- OUTSIDE RECORDS SUMMARY | 2023-06-21 11:50 | XMS_ITS | CCD ---
Author Name Unknown Address [address] [place] [address] [id number] Organization Unknown Address [address] [place] [address] [phone] Care Team Providers Care Career Technology Teacher Name Role Phone GLEN WASHINGTON Attending Physician [phone] Vital Signs Unknown or Not Available. Allergies Allergy Code Allergy Type Reaction Status No Known Allergies 0 No known allergies Active Procedures Unknown or Not Available. History of Immunizations Unknown or Not Available. 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 Active Medications Unknown or Not Available. Medications Administered During Visit Unknown or Not Available. Encounters Encounter Diagnosis Diagnosis Code Start Date Pain in right knee [id number] 12/17/2022 Social History Smoking Status Code Start Date End Date Never smoker [id number] Patient Decision Aids Unknown or Not Available. Discharge Instructions You were admitted to [facility] on 12/17/2022 11:48 with a principal diagnosis of Pain in right knee You were discharged from [facility] on 12/17/2022 11:48 Should you have any questions prior to discharge, please contact a member of your healthcare team. If you have left the hospital and have any questions, please contact your primary care physician. Chief Complaint and Reason For Visit Unknown or Not Available. Function Status Unknown or Not Available. Plan of Care Unknown or Not Available. Referral/Transition of Care Unknown or Not Available.
--- OUTSIDE RECORDS SUMMARY | 2023-06-21 11:50 | XMS_ITS | CCD ---
Author Name Unknown Address [address] [place] [address] [id number] Organization Unknown Address [address] [place] [address] [phone] Care Team Providers Care Executive Candidate Developer Name Role Phone RAQUEL HENDERSON Attending Physician [phone] Vital Signs Unknown or Not Available. Allergies Allergy Code Allergy Type Reaction Status No Known Allergies 0 No known allergies Active Procedures Unknown or Not Available. History of Immunizations Unknown or Not Available. Problems Problem Code Start Date Resolved Date Status TMJ disorder 72210145 Active Results Unknown or Not Available. Active Medications Unknown or Not Available. Medications Administered During Visit Unknown or Not Available. Encounters Encounter Diagnosis Diagnosis Code Start Date Sprain of other ligament of left ankle, initial encounter [id number] 04/02/2023 Social History Smoking Status Code Start Date End Date Never smoker [id number] Patient Decision Aids Unknown or Not Available. Discharge Instructions You were admitted to [facility] on 04/02/2023 12:40 with a principal diagnosis of Sprain of other ligament of left ankle, initial encounter You were discharged from [facility] on 04/02/2023 12:40 Should you have any questions prior to discharge, please contact a member of your healthcare team. If you have left the hospital and have any questions, please contact your primary care physician. Chief Complaint and Reason For Visit Chief Complaint Date of Onset LT ANKLE Function Status Unknown or Not Available. Plan of Care Unknown or Not Available. Referral/Transition of Care Unknown or Not Available.
--- OUTSIDE RECORDS SUMMARY | 2023-06-21 11:51 | XMS_ITS | CCD ---
Author Name Unknown Address [address] [place] [address] [phone] Organization Unknown Address [address] [place] [address] [phone] Care Team Providers Care Nurse Practitioner Manager Name Role Phone YAQUELIN RAM Attending Physician [phone] YAUQELIN RAM Er Physician 3 [phone] ANNALISE Vaughn Registered Nurse [phone] Vital Signs Vital Sign Value Unit Date/Time Recent/Initial ? BMI (Body Mass Index) 40.35 kg/m^2 05/14/2022 13: 11 Initial VS Weight Measured 250 lbs 05/14/2022 13:11 Ini tial VS Height 66 in 05/14/2022 13:11 Initial VS BSA (Body Surface Area) 2.3 m^2 05/14/2022 1 3:11 Initial VS BP Systolic 173 mmHg 05/14/2022 13:11 Initial VS BP Diastolic 113 mmHg 05/14/2022 13:11 Initia l VS Respiratory Rate 18 bpm 05/14/2022 13:11 In itial VS Heart Rate 81 bpm 05/14/2022 13:11 Initial VS O2 % BldC Oximetry 100 % 05/14/2022 13:11 Initial VS Body Temperature 36.8 degrees 05/14/2022 13:11 In itial VS BP Systolic 163 mmHg 05/14/2022 15:30 Most Re cent VS BP Diastolic 94 mmHg 05/14/2022 15:30 Most R ecent VS Respiratory Rate 18 bpm 05/14/2022 15:[address] Recent VS Heart Rate 68 bpm 05/14/2022 15:30 Most Rec ent VS O2 % BldC Oximetry 94 % 05/14/2022 15:30 Most Recent VS Body Temperature 35.6 degrees 05/14/2022 15:[address] Recent VS Allergies Allergy Code Allergy Type Reaction Status No Known Allergies 0 No known allergies Active Procedures Unknown or Not Available. History of Immunizations Unknown or Not Available. Problems Problem Code Start Date Resolved Date Status TMJ disorder 07325473 Active Results Unknown or Not Available. Active Medications Medications Administered During Visit Medication Dose Units Frequency Route Date/Time of Last Dose PredniSONE TABLET: 20MG 20 MG X1 PO 05/14/2022 15:30 Encounters Encounter Diagnosis Diagnosis Code Start Date Left temporomandibular joint disorder, unspecifi ed [id number] 05/14/2022 Social History Smoking Status Code Start Date End Date Never smoker [id number] Patient Decision Aids Unknown or Not Available. Discharge Instructions You were admitted to [facility] on 05/14/2022 13:09 with a principal diagnosis of Left temporomandibular joint disorder, unspecified You were discharged from [facility] on 05/14/2022 15:31 Should you have any questions prior to discharge, please contact a member of your healthcare team. If you have left the hospital and have any questions, please contact your primary care physician. Chief Complaint and Reason For Visit Chief Complaint Date of Onset FACIAL SWELLING AND PAIN Function Status Unknown or Not Available. Plan of Care Unknown or Not Available. Referral/Transition of Care Unknown or Not Available.
--- OUTSIDE RECORDS SUMMARY | 2023-06-21 11:51 | XMS_ITS | CCD ---
Author Name Unknown Address [address] [place] [address] [phone] Organization Unknown Address [address] [place] [address] [phone] Care Team Providers Care Shale Miner Blasting Name Role Phone ABRAHAM RANGEL Attending Physician [phone] Vital Signs Unknown or Not Available. Allergies Allergy Code Allergy Type Reaction Status No Known Allergies 0 No known allergies Active Procedures Unknown or Not Available. History of Immunizations Unknown or Not Available. Problems Problem Code Start Date Resolved Date Status TMJ disorder 86744288 Active GERD 710495651 03/08/2022 Resolved Arthritis 8536127 03/08/2022 Resolved Anemia 210379568 03/08/2022 Resolved Dilatation and curettage planned [id number] 10/2021 Resolved Results Unknown or Not Available. Active Medications Unknown or Not Available. Medications Administered During Visit Unknown or Not Available. Encounters Encounter Diagnosis Diagnosis Code Start Date Fatty (change of) liver, not elsewhere classifie d K760 08/26/2021 Social History Smoking Status Code Start Date End Date Never smoker [id number] Patient Decision Aids Unknown or Not Available. Discharge Instructions You were admitted to [facility] on 08/26/2021 08:15 with a principal diagnosis of Fatty (change of) liver, not elsewhere classified You were discharged from [facility] on 08/26/2021 08:16 Should you have any questions prior to discharge, please contact a member of your healthcare team. If you have left the hospital and have any questions, please contact your primary care physician. Chief Complaint and Reason For Visit Chief Complaint Date of Onset ELEVATED LFTS Function Status Unknown or Not Available. Plan of Care Unknown or Not Available. Referral/Transition of Care Unknown or Not Available.
--- OUTSIDE RECORDS SUMMARY | 2023-06-21 11:51 | XMS_ITS | CCD ---
Author Name Unknown Address [address] [place] [address] [id number] Organization Unknown Address [address] [place] [address] [id number] Care Team Providers Care Dairy Consultant Name Role Phone YAQUELIN REINOSO Attending Physician [phone] YAQUELIN REINOSO Er Physician 4 [phone] MAXIME Ortega Registered Nurse [phone] Vital Signs Vital Sign Value Unit Date/Time Recent/Initial ? BMI (Body Mass Index) 43.58 kg/m^2 09/03/2022 06: 01 Initial VS Weight Measured 270 lbs 09/03/2022 06:01 Ini tial VS Height 66 in 09/03/2022 06:01 Initial VS BSA (Body Surface Area) 2.39 m^2 09/03/2022 0 6:01 Initial VS BP Systolic 132 mmHg 09/03/2022 06:01 Initial VS BP Diastolic 89 mmHg 09/03/2022 06:01 Initia l VS Respiratory Rate 14 bpm 09/03/2022 06:01 In itial VS Heart Rate 80 bpm 09/03/2022 06:01 Initial VS O2 % BldC Oximetry 99 % 09/03/2022 06:01 Initial VS Body Temperature 36.3 degrees 09/03/2022 06:01 In itial VS BP Systolic 119 mmHg 09/03/2022 06:35 Most Re cent VS BP Diastolic 74 mmHg 09/03/2022 06:35 Most R ecent VS Respiratory Rate 14 bpm 09/03/2022 06:[address] Recent VS Heart Rate 74 bpm 09/03/2022 06:35 Most Rec ent VS O2 % BldC Oximetry 99 % 09/03/2022 06:35 Most Recent VS Allergies Allergy Code Allergy Type Reaction Status No Known Allergies 0 No known allergies Active Procedures Unknown or Not Available. History of Immunizations Unknown or Not Available. Problems Problem Code Start Date Resolved Date Status TMJ disorder [id number] Active Results COMPREHENSIVE METABOLIC PANE L (CMP) - Collect Date/Time: 09/03/2022 06:04 Test Name Code Test Result Test Units Test Ref Rang e GLUCOSE 2345-7 109 mg/dL L=70 H=116 BUN 3094-0 9 mg/dL L=6 H=25 CREATININE 2160-0 0.93 mg/dL L=0.51 H=0.95 SODIUM SERUM 2951-2 137 mmol/L L=136 H=145 POTASSIUM SERUM 2823-3 3.8 mmol/L L=3.4 H=5 .2 CHLORIDE SERUM 2075-0 104 mmol/L L=96 H=110 CARBON DIOXIDE (CO2) 2028-9 27 mmol/L L=22 H=34 ANION GAP 74389-6 6.4 mmol/L CALCIUM SERUM 18132-6 8.8 mg/dL L=8.2 H=10. 2 BILIRUBIN TOTAL 1975-2 0.6 mg/dL L=0.0 H=1 .3 ALK. PHOS. 6768-6 76 U/L L=46 H=116 SGOT (AST) 1920-8 32 U/L L=15 H=37 SGPT (ALT) 1742-6 44 U/L L=12 H=78 TOTAL PROTEIN 2885-2 7.7 gm/dL L=6.0 H=8.0 ALBUMIN 1751-7 3.7 gm/dL L=3.4 H=5.0 AGE 37 years eGFR (non-Afr.Amer.) 93566-5 67 mL/min eGFR (Afr-Andorran) 01584-4 81 mL/min LIPASE* NEW - Collect Date/T rocky: 09/03/2022 06:04 Test Name Code Test Result Test Units Test Ref Rang e LIPASE. 31 U/L L=16 H=77 CBC W/ DIFFERENTIAL* - Colle ct Date/Time: 09/03/2022 06:04 Test Name Code Test Result Test Units Test Ref Rang e WBC 6690-2 11.62 th/cmm L=5.00 H=10.00 NEUT % 58.7 % L=40.0 H=80.0 LYMPH % 27.5 % L=10.0 H=50.0 MONO % 78256-0 8.3 % L=2.0 H=12.0 EOS % 4.4 % L=0.0 H=8.0 BASO % 0.8 % L=0.0 H=3.0 IG % 2514-8 0.3 % L=0.0 H=1.1 NRBC % 33334-6 0.0 % L=0.0 H=0.0 NEUT abs count 751-8 6.8 th/cmm L=1.6 H=8. 4 LYMPH abs count 731-0 3.2 th/cmm L=1.5 H=4 .0 MONO abs count 742-7 1.0 th/cmm L=0.2 H=1. 0 EOS abs count 711-2 0.5 th/cmm L=0.0 H=0.5 BASO abs count 704-7 0.1 th/cmm L=0.0 H=0. 2 IG abs count 84613-9 0.0 th/cmm L=0.0 H=0.1 NRBC abs count 04075-9 0.0 mil/cmm L=0.0 H=0. 0 RBC 789-8 4.72 mil/cmm L=3.90 H=5.40 HEMOGLOBIN 718-7 13.8 gm/dL L=12.0 H=16.0 HEMATOCRIT 4544-3 42 % L=37 H=47 MCV 787-2 90 fL L=82 H=92 MCH 785-6 29.2 pg L=27.0 H=31.0 MCHC 786-4 32.6 % L=32.0 H=36.0 RDW-SD 788-0 44.9 fL L=39.0 H=49.0 PLATELET COUNT 777-3 480 th/cmm L=150 H=45 0 TEST QUAL (URINE) - Collect Date/Time: 09/03/2022 06:04 Test Name Code Test Result Test Units Test Ref Rang e TEST 2105-3 NEGATIVE N/A URINALYSIS WITH REFLEX CULT IF POSITIVE* - Collect Date/Time: 09/03/2022 06:04 Test Name Code Test Result Test Units Test Ref Rang e COLLECTION MODE: 29725-7 CLEAN CATCH N/A Color 7378-6 STRAW N/A yellow Appearance 5067-9 CLEAR N/A clear Glucose urine 23491-4 NEGATIVE N/A negative mg /dl Bilirubin 5770-3 SMALL N/A negative Ketones 2514-8 NEGATIVE N/A negative mg/dl Spec gravity 5811-5 1.025 N/A 1.003 - 1.03 0 pH urine 2756-5 6.0 N/A 5.0 - 7.0 Protein 15915-3 NEGATIVE N/A negative mg/dl Urobilinogen 62034-9 0.2 N/A <or= 1 EU/dl Nitrite. 5802-4 NEGATIVE N/A negative Blood 5794-3 NEGATIVE N/A negative Leukocytes. NEGATIVE N/A negative MICROSCOPIC NOT INDICAT N/A Active Medications Medications Administered During Visit Medication Dose Units Frequency Route Date/Time of Last Dose ACETAMINOPHEN INJ IVPB: 1000MG/100ML 1000 MG X1 09/03/2022 06:1 5 ONDANSETRON INJ SDV: 4MG/2ML 4 MG X1 I ANIMAL SHELTER SUPERVISOR 09/03/2022 06:15 Encounters Encounter Diagnosis Diagnosis Code Start Date Right upper quadrant pain R1011 2022 Social History Smoking Status Code Start Date End Date Never smoker [id number] Patient Decision Aids Unknown or Not Available. Discharge Instructions You were admitted to [facility] on 09/03/2022 05:44 with a principal diagnosis of Right upper quadrant pain You had the following tests done:CBC W/ DIFFERENTIAL*COMPREHENSIVE METABOLIC PANEL (CMP)LIPASE* NEWPREGNANCY TEST QUAL (URINE)URINALYSIS WITH REFLEX CULT IF POSITIVE* You were discharged from [facility] on 09/03/2022 06:49 Should you have any questions prior to discharge, please contact a member of your healthcare team. If you have left the hospital and have any questions, please contact your primary care physician. Chief Complaint and Reason For Visit Chief Complaint Date of Onset ABDOMINAL PAIN Function Status Unknown or Not Available. Plan of Care Unknown or Not Available. Referral/Transition of Care Unknown or Not Available.
--- OUTSIDE RECORDS SUMMARY | 2023-06-21 11:51 | XMS_ITS | CCD ---
Author Name Unknown Address [address] [place] [address] [id number] Organization Unknown Address [address] [place] [address] [phone] Care Team Providers Care Land Surveyor Manager Name Role Phone LIZA SHAFFER Attending Physician [phone] Vital Signs Unknown or Not Available. Allergies Allergy Code Allergy Type Reaction Status No Known Allergies 0 No known allergies Active Procedures Unknown or Not Available. History of Immunizations Unknown or Not Available. Problems Problem Code Start Date Resolved Date Status TMJ disorder 11598838 Active Results Unknown or Not Available. Active Medications Unknown or Not Available. Medications Administered During Visit Unknown or Not Available. Encounters Encounter Diagnosis Diagnosis Code Start Date Encounter for other preprocedural examination Z0 1818 06/04/2022 Social History Smoking Status Code Start Date End Date Never smoker [id number] Patient Decision Aids Unknown or Not Available. Discharge Instructions You were admitted to [facility] on 06/04/2022 09:30 with a principal diagnosis of Encounter for other preprocedural examination You were discharged from [facility] on 06/04/2022 09:31 Should you have any questions prior to discharge, please contact a member of your healthcare team. If you have left the hospital and have any questions, please contact your primary care physician. Chief Complaint and Reason For Visit Chief Complaint Date of Onset CHRONIC BILATERAL TMJ PAIN PREOP Function Status Unknown or Not Available. Plan of Care Unknown or Not Available. Referral/Transition of Care Unknown or Not Available.
--- OUTSIDE RECORDS SUMMARY | 2023-06-21 11:51 | XMS_ITS | CCD ---
Author Name Unknown Address [address] [place] [address] [phone] Organization Unknown Address [address], [place] [phone] Care Team Providers Care Globe Mounter Name Role Phone RAQUEL HENDERSON Attending Physician [phone] RAQUEL HENDERSON Rounding (Secondary) Physician [phone] Vital Signs Unknown or Not Available. Allergies Allergy Code Allergy Type Reaction Status No Known Allergies 0 No known allergies Active Procedures Unknown or Not Available. History of Immunizations Unknown or Not Available. Problems Problem Code Start Date Resolved Date Status TMJ disorder 09850782 Active Results Unknown or Not Available. Active Medications Unknown or Not Available. Medications Administered During Visit Unknown or Not Available. Encounters Encounter Diagnosis Diagnosis Code Start Date Closed fracture of great toe [id number] Social History Smoking Status Code Start Date End Date Never smoker [id number] Patient Decision Aids Unknown or Not Available. Discharge Instructions You were admitted to [facility] on 11/27/2022 00:00 with a principal diagnosis of Displaced unspecified fracture of left great toe, initial encounter for closed fracture You were discharged from [facility] on 11/27/2022 00:00 Should you have any questions prior to [...]
--- OUTSIDE RECORDS SUMMARY | 2023-06-21 11:51 | XMS_ITS | CCD ---
Author Name Unknown Address [address] [place] [address] [id number] Organization Unknown Address [address] [place] [address] [phone] Care Team Providers Care Respiratory Support Technician Name Role Phone VIKI MEI Attending Physician [phone] Vital Signs Unknown or Not Available. Allergies Allergy Code Allergy Type Reaction Status No Known Allergies 0 No known allergies Active Procedures Unknown or Not Available. History of Immunizations Unknown or Not Available. 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 Medications Administered During Visit Unknown or Not Available. Encounters Encounter Diagnosis Diagnosis Code Start Date Exposure to SARS-CoV-2 876108026 Social History Smoking Status Code Start Date End Date Never smoker 484840276 Patient Decision Aids Unknown or Not Available. Discharge Instructions You were admitted to [facility] on 07/07/2021 22:33 with a principal diagnosis of Contact with and (suspected) exposure to COVID-19 You had the following tests done:YAYA COVID RHEONIX* You were discharged from [facility] on 07/07/2021 22:33 Should you have any questions prior to [...]
--- OUTSIDE RECORDS SUMMARY | 2023-06-21 11:51 | XMS_ITS | CCD ---
Author Name Unknown Address [address] [place] [address] [id number] Organization Unknown Address [address] [place] [address] [id number] Care Team Providers Care Cop Breaker Name Role Phone MICHELLE MYERS Attending Physician [phone] Vital Signs Unknown or Not Available. Allergies Allergy Code Allergy Type Reaction Status No Known Allergies 0 No known allergies Active Procedures Unknown or Not Available. History of Immunizations Unknown or Not Available. Problems Problem Code Start Date Resolved Date Status TMJ disorder 59403413 Active Results Unknown or Not Available. Active Medications Unknown or Not Available. Medications Administered During Visit Unknown or Not Available. Encounters Encounter Diagnosis Diagnosis Code Start Date Right upper quadrant pain 679210231 2022 Social History Smoking Status Code Start Date End Date Never smoker 450133805 Patient Decision Aids Unknown or Not Available. Discharge Instructions You were admitted to [facility] on 09/03/2022 07:35 with a principal diagnosis of Right upper quadrant pain You were discharged from [facility] on 09/03/2022 11:48 Should you have any questions prior to discharge, please contact a member of your healthcare team. If you have left the hospital and have any questions, please contact your primary care physician. Chief Complaint and Reason For Visit Chief Complaint Date of Onset RUQ PAIN Function Status Unknown or Not Available. Plan of Care Unknown or Not Available. Referral/Transition of Care Unknown or Not Available.
--- OUTSIDE RECORDS SUMMARY | 2023-06-21 11:51 | XMS_ITS | CCD ---
Author Name Unknown Address [address] [place] [address] [id number] Organization Unknown Address [address] [place] [address] [phone] Care Team Providers Care Fiber Artist Name Role Phone ATUL PHIPPS Attending Physician [phone] ATUL PHIPPS Er Physician 0 [phone] GRIS Gregory Registered Nurse [phone] Vital Signs Vital Sign Value Unit Date/Time Recent/Initial ? BMI (Body Mass Index) 41.65 kg/m^2 11/24/2022 20: 35 Initial VS Weight Measured 250 lbs 11/24/2022 20:35 Ini tial VS Height 64.96 in 11/24/2022 20:35 Initial VS BSA (Body Surface Area) 2.28 m^2 11/24/2022 2 0:35 Initial VS BP Systolic 143 mmHg 11/24/2022 20:35 Initial VS BP Diastolic 90 mmHg 11/24/2022 20:35 Initia l VS Respiratory Rate 18 bpm 11/24/2022 20:35 In itial VS Heart Rate 81 bpm 11/24/2022 20:35 Initial VS O2 % BldC Oximetry 100 % 11/24/2022 20:35 Initial VS Body Temperature 36.5 degrees 11/24/2022 20:35 In itial VS BP Systolic 131 mmHg 11/24/2022 21:44 Most Re cent VS BP Diastolic 98 mmHg 11/24/2022 21:44 Most R ecent VS Respiratory Rate 18 bpm 11/24/2022 21:[address] Recent VS Heart Rate 91 bpm 11/24/2022 21:44 Most Rec ent VS O2 % BldC Oximetry 97 % 11/24/2022 21:44 Most Recent VS Body Temperature 36.1 degrees 11/24/2022 21:[address] Recent VS Allergies Allergy Code Allergy Type Reaction Status No Known Allergies 0 No known allergies Active Procedures Unknown or Not Available. History of Immunizations Unknown or Not Available. Problems Problem Code Start Date Resolved Date Status TMJ disorder 66146335 Active Results Unknown or Not Available. Active Medications Unknown or Not Available. Medications Administered During Visit Medication Dose Units Frequency Route Date/Time of Last Dose IBUPROFEN TABLET: 600MG 600 MG X1 PO 11/24/2022 21:35 Encounters Encounter Diagnosis Diagnosis Code Start Date Sprain of unspecified ligame nt of left ankle, initial encounter [id number] 11/24/2022 Social History Smoking Status Code Start Date End Date Never smoker 899526902 Patient Decision Aids Unknown or Not Available. Discharge Instructions You were admitted to [facility] on 11/24/2022 20:30 with a principal diagnosis of Sprain of unspecified ligament of left ankle, initial encounter You were discharged from [facility] on 11/24/2022 21:50 Should you have any questions prior to discharge, please contact a member of your healthcare team. If you have left the hospital and have any questions, please contact your primary care physician. Chief Complaint and Reason For Visit Chief Complaint Date of Onset LEFT ANKLE INJURY 11/25/2022 Function Status Unknown or Not Available. Plan of Care Unknown or Not Available. Referral/Transition of Care Unknown or Not Available.
--- OUTSIDE RECORDS SUMMARY | 2023-06-21 11:51 | XMS_ITS | CCD ---
Author Name Unknown Address [address] [place] [address] [phone] Organization Unknown Address [address] [place], [place] [id number] Care Team Providers Care Emergency Dispatch Operator Name Role Phone ANGEL ART Attending Physician [phone] ANGEL ART Er Physician 2 [phone] TABATHA Rice Registered Nurse [phone] Vital Signs Vital Sign Value Unit Date/Time Recent/Initial ? BMI (Body Mass Index) 40.35 kg/m^2 03/08/2022 08: 13 Initial VS Weight Measured 250 lbs 03/08/2022 08:13 Ini tial VS Height 66 in 03/08/2022 08:13 Initial VS BSA (Body Surface Area) 2.3 m^2 03/08/2022 0 8:13 Initial VS BP Systolic 125 mmHg 03/08/2022 08:13 Initial VS BP Diastolic 95 mmHg 03/08/2022 08:13 Initia l VS Respiratory Rate 16 bpm 03/08/2022 08:13 In itial VS Heart Rate 89 bpm 03/08/2022 08:13 Initial VS O2 % BldC Oximetry 99 % 03/08/2022 08:13 Initial VS Body Temperature 36.2 degrees 03/08/2022 08:13 In itial VS Allergies Allergy Code Allergy Type Reaction Status No Known Allergies 0 No known allergies Active Procedures Unknown or Not Available. History of Immunizations Unknown or Not Available. Problems Problem Code Start Date Resolved Date Status TMJ disorder 39717833 Active GERD 363466184 03/08/2022 Resolved Arthritis 7020547 03/08/2022 Resolved Anemia 268540991 03/08/2022 Resolved Dilatation and curettage planned 157594508 10/2021 Resolved Results URINALYSIS WITH REFLEX CULT IF POSITIVE* - Collect Date/Time: 03/08/2022 08:03 Test Name Code Test Result Test Units Test Ref Rang e COLLECTION MODE: 97032-9 CLEAN CATCH N/A Color 5778-6 YELLOW N/A yellow Appearance 5767-9 CLOUDY N/A clear Glucose urine 42802-5 NEGATIVE N/A negative mg /dl Bilirubin 5770-3 NEGATIVE N/A negative Ketones 2514-8 NEGATIVE N/A negative mg/dl Spec gravity 5811-5 <=1.005 N/A 1.003 - 1.03 0 pH urine 2756-5 6.0 N/A 5.0 - 7.0 Protein 73852-9 NEGATIVE N/A negative mg/dl Urobilinogen 61557-6 0.2 N/A <or= 1 EU/dl Nitrite. 5802-4 NEGATIVE N/A negative Blood 5794-3 LARGE N/A negative Leukocytes. LARGE N/A negative MICROSCOPIC INDICATED N/A WBCs. 92323-6 >100 N/A 0-5 / hpf RBCs 24237-2 5-10 N/A 0-5 / hpf Epith cells 21239-8 10-25 N/A 0-5 / hpf Cell types squamous N/A Crystals none N/A none Bacteria moderate N/A none Mucus 8247-9 present N/A none Casts 76604-9 none N/A none /lpf TEST QUALITATIVE ( URINE) - Collect Date/Time: 03/08/2022 08:03 Test Name Code Test Result Test Units Test Ref Rang e TEST 2106-3 NEGATIVE N/A Active Medications Unknown or Not Available. Medications Administered During Visit Unknown or Not Available. Encounters Encounter Diagnosis Diagnosis Code Start Date Urinary tract infection, site not specified N390 03/08/2022 Social History Smoking Status Code Start Date End Date Never smoker 050226682 Patient Decision Aids Unknown or Not Available. Discharge Instructions You were admitted to [facility] on 03/08/2022 07:53 with a principal diagnosis of Urinary tract infection, site not specified You had the following tests done: TEST QUALITATIVE (URINE)URINALYSIS WITH REFLEX CULT IF POSITIVE* You were discharged from [facility] on 03/08/2022 09:32 Should you have any questions prior to discharge, please contact a member of your healthcare team. If you have left the hospital and have any questions, please contact your primary care physician. Chief Complaint and Reason For Visit Chief Complaint Date of Onset UTI PELVIC PAIN Function Status Unknown or Not Available. Plan of Care Unknown or Not Available. Referral/Transition of Care Unknown or Not Available.
--- OUTSIDE RECORDS SUMMARY | 2023-06-21 11:52 | XMS_ITS | CCD ---
Author Name Unknown Address [address] [place] [address] [phone] Organization Unknown Address [address] [place], [place] [phone] Care Team Providers Care Boil Off Worker Name Role Phone CHANDRIKA APONTE MD Attending Physician [phone] Vital Signs Unknown or Not Available. Allergies Unknown or Not Available. Procedures Unknown or Not Available. History of Immunizations Unknown or Not Available. Problems Problem Code Start Date Resolved Date Status TMJ disorder 47214958 Active GERD 814709880 03/08/2022 Resolved Arthritis 8764845 03/08/2022 Resolved Anemia 721970749 03/08/2022 Resolved Dilatation and curettage planned 810336535 10/2021 Resolved Results Unknown or Not Available. Active Medications Unknown or Not Available. Medications Administered During Visit Unknown or Not Available. 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 Discharge Instructions You were admitted to [facility] 01 on 03/06/2021 11:21 with a principal diagnosis of Benign neoplasm of rectum You were discharged from [facility] on 03/06/2021 11:21 Should you have any questions prior to [...]
--- OUTSIDE RECORDS SUMMARY | 2023-06-21 11:52 | XMS_ITS | CCD ---
Author Name Unknown Address [address] [place] [address] [phone] Organization Unknown Address [address] [place] [address] [phone] Care Team Providers Care Manager Animal Name Role Phone CHANDRIKA APONTE MD Attending Physician [phone] Vital Signs Unknown or Not Available. Allergies Unknown or Not Available. Procedures Procedure Code Procedure Type Date Colsc Flx w/[place] [address] CPT 03/06/2021 Colonoscopy, Flexible, Proxi mal To Splenic Flexure; w/Bx, Single/Multiple 26754 CPT 03/06/2021 History of Immunizations Unknown or Not Available. Problems Problem Code Start Date Resolved Date Status TMJ disorder 98826987 Active GERD 173735730 03/08/2022 Resolved Arthritis 2915672 03/08/2022 Resolved Anemia 544438883 03/08/2022 Resolved Dilatation and curettage planned 796080821 10/2021 Resolved Results Unknown or Not Available. Active Medications Unknown or Not Available. Medications Administered During Visit Unknown or Not Available. 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 Discharge Instructions You were admitted to [facility] on 03/06/2021 08:57 with a principal diagnosis of Benign neoplasm of rectum You had the following procedures done:Colsc Flx w/Rmvl Of Tumor Polyp Lesion Snare TqColonoscopy, Flexible, Proximal To Splenic Flexure; w/Bx, Single/Multiple You were discharged from [facility] on 03/06/2021 11:20 Should you have any questions prior to [...]
--- OUTSIDE RECORDS SUMMARY | 2023-06-21 11:52 | XMS_ITS | CCD ---
Author Name Unknown Address [address] [place] [address] [id number] Organization Unknown Address [address] [place], [place] [phone] Care Team Providers Care Lettuce Trimmer Name Role Phone CHANDRIKA APONTE MD Attending Physician [phone] Vital Signs Unknown or Not Available. Allergies Unknown or Not Available. Procedures Unknown or Not Available. History of Immunizations Unknown or Not Available. Problems Problem Code Start Date Resolved Date Status TMJ disorder 36280469 Active GERD 756369468 03/08/2022 Resolved Arthritis 6553432 03/08/2022 Resolved Anemia 669632961 03/08/2022 Resolved Dilatation and curettage planned 739354903 10/2021 Resolved Results Unknown or Not Available. Active Medications Unknown or Not Available. Medications Administered During Visit Unknown or Not Available. Encounters Encounter Diagnosis Diagnosis Code Start Date Left lower quadrant pain R1032 021 Social History Smoking Status Code Start Date End Date Never smoker 022130381 Patient Decision Aids Unknown or Not Available. Discharge Instructions You were admitted to [facility] on 02/25/2021 14:05 with a principal diagnosis of Left lower quadrant pain You were discharged from [facility] on 02/25/2021 14:05 Should you have any questions prior to [...]
--- OUTSIDE RECORDS SUMMARY | 2023-06-21 11:52 | XMS_ITS | CCD ---
Author Name Unknown Address [address] [place] [address] [id number] Organization Unknown Address [address] [place] [address] [phone] Care Team Providers Care Soldering Machine Operator Helper Name Role Phone YAQUELIN RAM Attending Physician [phone] SHAHRAM JAMA Er Physician 0 [phone] LAMAR Nguyen Registered Nurse [phone] Vital Signs Vital Sign Value Unit Date/Time Recent/Initial ? BMI (Body Mass Index) 41.96 kg/m^2 05/23/2023 10: 15 Initial VS Weight Measured 260 lbs 05/23/2023 10:15 Ini tial VS Height 66 in 05/23/2023 10:15 Initial VS BSA (Body Surface Area) 2.34 m^2 05/23/2023 1 0:15 Initial VS BP Systolic 130 mmHg 05/23/2023 10:15 Initial VS BP Diastolic 89 mmHg 05/23/2023 10:15 Initia l VS Respiratory Rate 18 bpm 05/23/2023 10:15 In itial VS Heart Rate 86 bpm 05/23/2023 10:15 Initial VS O2 % BldC Oximetry 98 % 05/23/2023 10:15 Initial VS Body Temperature 36 degrees 05/23/2023 10:15 In itial VS BP Systolic 125 mmHg 05/23/2023 12:03 Most Re cent VS BP Diastolic 83 mmHg 05/23/2023 12:03 Most R ecent VS Respiratory Rate 18 bpm 05/23/2023 12:[address] Recent VS Heart Rate 76 bpm 05/23/2023 12:03 Most Rec ent VS O2 % BldC Oximetry 97 % 05/23/2023 12:03 Most Recent VS Body Temperature 36.2 degrees 05/23/2023 12:[address] Recent VS Allergies Allergy Code Allergy Type Reaction Status No Known Allergies 0 No known allergies Active Procedures Unknown or Not Available. History of Immunizations Unknown or Not Available. Problems Problem Code Start Date Resolved Date Status TMJ disorder 98400494 Active Results YAYASARA WRIGHTIntroFly FLU RSV GENEXPE RT - Collect Date/Time: 05/23/2023 10:35 Test Name Code Test Result Test Units Test Ref Jordyn IBARRA 64406-6 NEGATIVE N/A Normal: Negati ve INFLUENZA A DNA 42518-8 NEGATIVE N/A Normal: N egative INFLUENZA B DNA 04004-4 NEGATIVE N/A Normal: N egative RSV DNA 89256-5 NEGATIVE N/A Normal: Negati ve Active Medications Unknown or Not Available. Medications Administered During Visit Medication Dose Units Frequency Route Date/Time of Last Dose IBUPROFEN TABLET: 600MG 600 MG X1 PO 05/23/2023 10:50 PSEUDOEPHRINE TABLET: 30MG 60 MG X1 PO 05/23/2023 10:50 Encounters Encounter Diagnosis Diagnosis Code Start Date Acute upper respiratory infection 00890712 05/23/2023 Social History Smoking Status Code Start Date End Date Never smoker 394693210 Patient Decision Aids Unknown or Not Available. Discharge Instructions You were admitted to [facility] on 05/23/2023 10:05 with a principal diagnosis of Acute upper respiratory infection, unspecified You had the following tests done:YAYAConsiderC FLU RSV GENEXPERT You were discharged from [facility] on 05/23/2023 12:09 Should you have any questions prior to discharge, please contact a member of your healthcare team. If you have left the hospital and have any questions, please contact your primary care physician. Chief Complaint and Reason For Visit Chief Complaint Date of Onset CONGESTION HEADACHE NAUSEA Function Status Unknown or Not Available. Plan of Care Unknown or Not Available. Referral/Transition of Care Unknown or Not Available.
[2023-06-21 16:53] LABS: COVID-19 PCR Negative (Negative); Influenza A PCR Negative (Negative); Influenza B PCR Negative (Negative); RSV PCR Negative (Negative)
[2023-06-21 16:54] LABS: Source Nasopharynx
== END 2023-06-21 11:48 | disposition home or self-care (01) ==
LOC: LBN 11:47
PROVIDERS: PCP Registered Nurse; Visit Provider Nurse Practitioner Family
DX: J02.9 Acute pharyngitis, unspecified (principal); Z20.822 Contact with and (suspected) exposure to COVID-19
CPT/HCPCS: 87637; 87070

== ENCOUNTER 2023-07-12 10:27 | Outpatient (REF) | payer MEDICAID, SELFPAY ==
--- OUTSIDE RECORDS SUMMARY | 2023-07-12 10:31 | XMS_ITS | CCD ---
Author Name Unknown Address [address] [place] [address] [phone] Organization Unknown Address [address] [place] [address] [phone] Care Team Providers Care Digital Content Coordinator Name Role Phone LIZA SHAFFER Attending Physician [phone] Vital Signs Unknown or Not Available. Allergies Allergy Code Allergy Type Reaction Status No Known Allergies 0 No known allergies Active Procedures Unknown or Not Available. History of Immunizations Unknown or Not Available. Problems Problem Code Start Date Resolved Date Status TMJ disorder 40337960 Active Results Unknown or Not Available. Active Medications Medication Code Dose Units Frequency Route Modificatio n Start Date/Time Zithromax 250MG Oral Tablet 718544 1 TABLET DAILY ORAL 07/04/20 23 07:41 Prescription Detail TAKE 1 TABLET ORAL DAILY Medications Administered During Visit Unknown or Not Available. Encounters Encounter Diagnosis Diagnosis Code Start Date Encounter for other preprocedural examination Z0 1818 06/04/2022 Social History Smoking Status Code Start Date End Date Never smoker 836029895 Patient Decision Aids Unknown or Not Available. Discharge Instructions You were admitted to [facility] on 06/04/2022 09:30 with a principal diagnosis of Encounter for other preprocedural examination You were discharged from [facility] on 06/04/2022 09:31 Should you have any [...]
--- OUTSIDE RECORDS SUMMARY | 2023-07-12 10:31 | XMS_ITS | CCD ---
Author Name Unknown Address [address] [place] [address] [id number] Organization Unknown Address [address] [place] [address] [phone] Care Team Providers Care Glass Processing Worker Name Role Phone ATUL PHIPPS Attending Physician [phone] ATUL PHIPPS Er Physician 7 [phone] GRIS Gregory Registered Nurse [phone] Vital Signs Vital Sign Value Unit Date/Time [...] Start Date Resolved Date Status TMJ disorder 14580116 Active Results Unknown or Not Available. Active Medications Medication Code Dose Units Frequency Route Modificatio n Start Date/Time Zithromax 250MG Oral Tablet 511704 1 TABLET DAILY ORAL 07/04/20 07:41 Prescription Detail TAKE 1 TABLET ORAL DAILY Medications Administered During Visit Medication Dose Units Frequency Route Date/Time of Last Dose IBUPROFEN TABLET: 600MG 600 MG X1 PO 11/24/2022 21:35 Encounters Encounter Diagnosis Diagnosis Code Start Date Sprain of unspecified ligame nt of left ankle, initial encounter C86555O 11/24/2022 Social History Smoking Status Code Start Date End Date Never smoker 900732666 Patient Decision Aids Unknown or Not Available. Discharge Instructions You were admitted to [facility] on 11/24/2022 20:30 with a principal diagnosis of Sprain of unspecified ligament of left ankle, initial encounter You were discharged from [facility] on 11/24/2022 21:50 Should you have [...]
--- OUTSIDE RECORDS SUMMARY | 2023-07-12 10:31 | XMS_ITS | CCD ---
Author Name Unknown Address [address] [place] [address] [id number] Organization Unknown Address [address] [place] [address] [phone] Care Team Providers Care Washing Machine Assembler Name Role Phone MICHELLE MYERS Attending Physician [phone] Vital Signs Unknown or Not Available. Allergies Allergy Code Allergy Type Reaction Status No Known Allergies 0 No known allergies Active Procedures Unknown or Not Available. History of Immunizations Unknown or Not Available. Problems Problem Code Start Date Resolved Date Status TMJ disorder 65875045 Active Results Unknown or Not Available. Active Medications Medication Code Dose Units Frequency Route Modificatio n Start Date/Time Zithromax 250MG Oral Tablet 900804 1 TABLET DAILY ORAL 07/04/20 07:41 Prescription Detail TAKE 1 TABLET ORAL DAILY Medications Administered During Visit Unknown or Not Available. Encounters Encounter Diagnosis Diagnosis Code Start Date Right upper quadrant pain 868923378 2022 Social History Smoking Status Code Start Date End Date Never smoker 551945252 Patient Decision Aids Unknown or Not Available. Discharge Instructions You were admitted to [facility] on 09/03/2022 07:35 with a principal diagnosis of Right upper quadrant pain You were discharged from [facility] on 09/03/2022 11:48 Should you have any [...]
--- OUTSIDE RECORDS SUMMARY | 2023-07-12 10:31 | XMS_ITS | CCD ---
Author Name Unknown Address [address] [place] [address] [phone] Organization Unknown Address [address] [place] [address] [phone] Care Team Providers Care Ict Quality Assurance Engineer Name Role Phone RAQUEL HENDERSON Attending Physician [phone] Vital Signs Unknown or Not Available. Allergies Allergy Code Allergy Type Reaction Status No Known Allergies 0 No known allergies Active Procedures Unknown or Not Available. History of Immunizations Unknown or Not Available. Problems Problem Code Start Date Resolved Date Status TMJ disorder 26117867 Active Results Unknown or Not Available. Active Medications Medication Code Dose Units Frequency Route Modificatio n Start Date/Time Zithromax 250MG Oral Tablet 304357 1 TABLET DAILY ORAL 07/04/20 07:41 Prescription Detail TAKE 1 TABLET ORAL DAILY Medications Administered During Visit Unknown or Not Available. Encounters Encounter Diagnosis Diagnosis Code Start Date Sprain of other ligament of left ankle, initial encounter [id number] 04/02/2023 Social History Smoking Status Code Start Date End Date Never smoker 500650136 Patient Decision Aids Unknown or Not Available. Discharge Instructions You were admitted to [facility] on 04/02/2023 12:40 with a principal diagnosis of Sprain of other ligament of left ankle, initial encounter You were discharged from [facility] on 04/02/2023 12:40 Should you have any [...]
--- OUTSIDE RECORDS SUMMARY | 2023-07-12 10:31 | XMS_ITS | CCD ---
Author Name Unknown Address [address] [place] [address] [phone] Organization Unknown Address [address] [place] [address] [phone] Care Team Providers Care Clinical Staff Educator Name Role Phone RAQUEL HENDERSON Attending Physician [phone] RAQUEL HENDERSON Rounding (Secondary) Physician [phone] Vital Signs Unknown or Not Available. Allergies Allergy Code Allergy Type Reaction Status No Known Allergies 0 No known allergies Active Procedures Unknown or Not Available. History of Immunizations Unknown or Not Available. Problems Problem Code Start Date Resolved Date Status TMJ disorder 96296336 Active Results Unknown or Not Available. Active Medications Medication Code Dose Units Frequency Route Modificatio n Start Date/Time Zithromax 250MG Oral Tablet 449362 1 TABLET DAILY ORAL 07/04/20 07:41 Prescription Detail TAKE 1 TABLET ORAL DAILY Medications Administered During Visit Unknown or Not Available. Encounters Encounter Diagnosis Diagnosis Code Start Date Closed fracture of great toe [id number] Social History Smoking Status Code Start Date End Date Never smoker [id number] Patient Decision Aids Unknown or Not Available. Discharge Instructions You were admitted to [facility] on 11/27/2022 00:00 with a principal diagnosis of Displaced unspecified fracture of left great toe, initial encounter for closed fracture You were discharged from [facility] on 11/27/2022 00:00 Should you have [...]
--- OUTSIDE RECORDS SUMMARY | 2023-07-12 10:31 | XMS_ITS | CCD ---
Author Name Unknown Address [address] [place] [address] [phone] Organization Unknown Address [address] [place] [address] [phone] Care Team Providers Care Camp Coordinator Name Role Phone GLEN WASHINGTON Attending Physician [phone] Vital Signs Unknown or Not Available. Allergies Allergy Code Allergy Type Reaction Status No Known Allergies 0 No known allergies Active Procedures Unknown or Not Available. History of Immunizations Unknown or Not Available. 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 Active Medications Medication Code Dose Units Frequency Route Modificatio n Start Date/Time Zithromax 250MG Oral Tablet 651342 1 TABLET DAILY ORAL 07/04/20 07:41 Prescription Detail TAKE 1 TABLET ORAL DAILY Medications Administered During Visit Unknown or Not Available. Encounters Encounter Diagnosis Diagnosis Code Start Date Pain in right knee U42116 12/17/2022 Social History Smoking Status Code Start Date End Date Never smoker 162229327 Patient Decision Aids Unknown or Not Available. Discharge Instructions You were admitted to [facility] on 12/17/2022 11:48 with a principal diagnosis of Pain in right knee You were discharged from [facility] on 12/17/2022 11:48 Should you [...]
--- OUTSIDE RECORDS SUMMARY | 2023-07-12 10:32 | XMS_ITS | CCD ---
Author Name Unknown Address [address] [place] [address] [phone] Organization Unknown Address [address] [place], [place] [phone] Care Team Providers Care Manager Cosmetics Name Role Phone ANGEL ART Attending Physician [phone] ANGEL ART Er Physician [phone] TABATHA Rice Registered Nurse [phone] Vital Signs Vital Sign Value Unit Date/Time [...] Start Date Resolved Date Status TMJ disorder 99307606 Active GERD 858659104 03/08/2022 Resolved Arthritis 0476903 03/08/2022 Resolved Anemia 957440689 03/08/2022 Resolved Dilatation and curettage planned 229974290 10/2021 Resolved Results URINALYSIS WITH REFLEX CULT IF POSITIVE* - Collect Date/Time: 03/08/2022 08:03 Test Name Code Test Result Test Units Test Ref Rang e COLLECTION MODE: 97499-4 CLEAN CATCH N/A Color 5778-6 YELLOW N/A yellow Appearance 5767-9 CLOUDY N/A clear Glucose urine 62506-5 NEGATIVE N/A negative mg /dl Bilirubin 5770-3 NEGATIVE N/A negative Ketones 2514-8 NEGATIVE N/A negative mg/dl Spec gravity 5811-5 <=1.005 N/A 1.003 - 1.03 0 pH urine 2756-5 6.0 N/A 5.0 - 7.0 Protein 00620-5 NEGATIVE N/A negative mg/dl Urobilinogen 08286-3 0.2 N/A <or= 1 EU/dl Nitrite. 5802-4 NEGATIVE N/A negative Blood 5794-3 LARGE N/A negative Leukocytes. LARGE N/A negative MICROSCOPIC INDICATED N/A WBCs. 81585-3 >100 N/A 0-5 / hpf RBCs 85991-0 5-10 N/A 0-5 / hpf Epith cells 47658-0 10-25 N/A 0-5 / hpf Cell types squamous N/A Crystals none N/A none Bacteria moderate N/A none Mucus 8247-9 present N/A none Casts 29495-2 none N/A none /lpf TEST QUALITATIVE ( [...] Code Start Date End Date Never smoker 962847264 Patient Decision Aids Unknown or Not Available. Discharge Instructions You were admitted to [facility] on 03/08/2022 07:53 with a principal diagnosis of Urinary tract infection, site not specified You had the following tests done: TEST QUALITATIVE (URINE)URINALYSIS WITH REFLEX CULT IF POSITIVE* You were discharged from [facility] on 03/08/2022 09:32 Should you have [...]
--- OUTSIDE RECORDS SUMMARY | 2023-07-12 10:32 | XMS_ITS | CCD ---
Author Name Unknown Address [address] [place] [address] [phone] Organization Unknown Address [address] [place] [address] [phone] Care Team Providers Care Audit Partner Name Role Phone YAQUELIN RAM Attending Physician [phone] YAQUELIN RAM Er Physician [phone] ANNALISE Vaughn Registered Nurse [phone] Vital Signs Vital Sign Value Unit Date/Time [...] Start Date Resolved Date Status TMJ disorder 53789847 Active Results Unknown or Not Available. Active Medications Medications Administered During Visit Medication Dose Units Frequency Route Date/Time of Last Dose PredniSONE TABLET: 20MG 20 MG X1 PO 05/14/2022 15:30 Encounters Encounter Diagnosis Diagnosis Code Start Date Left temporomandibular joint disorder, unspecifi ed S80201 05/14/2022 Social History Smoking Status Code Start Date End Date Never smoker 564324826 Patient Decision Aids Unknown or Not Available. Discharge Instructions You were admitted to [facility] on 05/14/2022 13:09 with a principal diagnosis of Left temporomandibular joint disorder, unspecified You were discharged from [facility] on 05/14/2022 15:31 Should you have [...]
--- OUTSIDE RECORDS SUMMARY | 2023-07-12 10:32 | XMS_ITS | CCD ---
Author Name Unknown Address [address] [place] [address] [phone] Organization Unknown Address [address] [place] [address] [phone] Care Team Providers Care Sequencing Machine Operator Name Role Phone ABRAHAM RANGEL Attending Physician [phone] Vital Signs Unknown or Not Available. Allergies Allergy Code Allergy Type Reaction Status No Known Allergies 0 No known allergies Active Procedures Unknown or Not Available. History of Immunizations Unknown or Not Available. Problems Problem Code Start Date Resolved Date Status TMJ disorder 82741282 Active GERD 372102271 03/08/2022 Resolved Arthritis 4372872 03/08/2022 Resolved Anemia 582992090 03/08/2022 Resolved Dilatation and curettage planned 396731860 10/2021 Resolved Results Unknown or Not Available. Active Medications Medication Code Dose Units Frequency Route Modificatio n Start Date/Time Zithromax 250MG Oral Tablet 120061 1 TABLET DAILY ORAL 07/04/20 07:41 Prescription Detail TAKE 1 TABLET ORAL DAILY Medications Administered During Visit Unknown or Not Available. Encounters Encounter Diagnosis Diagnosis Code Start Date Fatty (change of) liver, not elsewhere classifie d K760 08/26/2021 Social History Smoking Status Code Start Date End Date Never smoker 328993630 Patient Decision Aids Unknown or Not Available. Discharge Instructions You were admitted to [facility] [place] [facility] on 08/26/2021 08:15 with a principal diagnosis of Fatty (change of) liver, not elsewhere classified You were discharged from [facility] [place] [facility] on 08/26/2021 08:16 Should you have [...]
--- OUTSIDE RECORDS SUMMARY | 2023-07-12 10:33 | XMS_ITS | CCD ---
Author Name Unknown Address [address] [place] [address] [phone] Organization Unknown Address [address] [place], [place] [phone] Care Team Providers Care Shuttle Inspector Name Role Phone CHANDRIKA APONTE MD Attending Physician [phone] Vital Signs Unknown or Not Available. Allergies Unknown or Not Available. Procedures Unknown or Not Available. History of Immunizations Unknown or Not Available. Problems Problem Code Start Date Resolved Date Status TMJ disorder 71724941 Active GERD 724149866 03/08/2022 Resolved Arthritis 8383137 03/08/2022 Resolved Anemia 083816645 03/08/2022 Resolved Dilatation and curettage planned 384428840 10/2021 Resolved Results Unknown or Not Available. Active Medications Medication Code Dose Units Frequency Route Modificatio n Start Date/Time Zithromax 250MG Oral Tablet 917939 1 TABLET DAILY ORAL 07/04/20 07:41 Prescription Detail TAKE 1 TABLET ORAL DAILY Medications Administered During Visit Unknown or Not Available. Encounters Encounter Diagnosis Diagnosis Code Start Date Left lower quadrant pain R1032 021 Social History Smoking Status Code Start Date End Date Never smoker 849683403 Patient Decision Aids Unknown or Not Available. Discharge Instructions You were admitted to [facility] [place] [facility] on 02/25/2021 14:05 with a principal diagnosis of Left lower quadrant pain You were discharged from [facility] [place] [facility] on 02/25/2021 14:05 Should you have any [...]
--- OUTSIDE RECORDS SUMMARY | 2023-07-12 10:33 | XMS_ITS | CCD ---
Author Name Unknown Address [address] [place] [address] [phone] Organization Unknown Address [address] [place] [address] [phone] Care Team Providers Care Laborer Carpentry Dock Name Role Phone CHANDRIKA APONTE MD Attending Physician [phone] Vital Signs Unknown or Not Available. Allergies Unknown or Not Available. Procedures Procedure Code Procedure Type Date Colsc Flx w/[place] [address] CPT 03/06/2021 Colonoscopy, Flexible, Proxi mal To Splenic Flexure; w/Bx, Single/Multiple 17744 CPT 03/06/2021 History of Immunizations Unknown or Not Available. Problems Problem Code Start Date Resolved Date Status TMJ disorder 74933529 Active GERD 359446479 03/08/2022 Resolved Arthritis 4726438 03/08/2022 Resolved Anemia 848616967 03/08/2022 Resolved Dilatation and curettage planned 906410754 10/2021 Resolved Results Unknown or Not Available. Active Medications Medication Code Dose Units Frequency Route Modificatio n Start Date/Time Zithromax 250MG Oral Tablet 253486 1 TABLET DAILY ORAL 07/04/20 07:41 Prescription Detail TAKE 1 TABLET ORAL DAILY Medications Administered During Visit Unknown or Not Available. 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 Discharge Instructions You were admitted to [facility] on 03/06/2021 08:57 with a principal diagnosis of Benign neoplasm of rectum You had the following procedures done:Colsc Flx w/Rmvl Of Tumor Polyp Lesion Snare TqColonoscopy, Flexible, Proximal To Splenic Flexure; w/Bx, Single/Multiple You were discharged from [facility] on 03/06/2021 11:20 Should you have [...]
--- OUTSIDE RECORDS SUMMARY | 2023-07-12 10:33 | XMS_ITS | CCD ---
Author Name Unknown Address [address] [place] [address] [phone] Organization Unknown Address [address] [place], [place] [phone] Care Team Providers Care Footwear Sales Associate Name Role Phone CHANDRIKA APONTE MD Attending Physician [phone] Vital Signs Unknown or Not Available. Allergies Unknown or Not Available. Procedures Unknown or Not Available. History of Immunizations Unknown or Not Available. Problems Problem Code Start Date Resolved Date Status TMJ disorder 35679474 Active GERD 032471386 03/08/2022 Resolved Arthritis 9965606 03/08/2022 Resolved Anemia 156346971 03/08/2022 Resolved Dilatation and curettage planned 100458940 10/2021 Resolved Results Unknown or Not Available. Active Medications Medication Code Dose Units Frequency Route Modificatio n Start Date/Time Zithromax 250MG Oral Tablet 155054 1 TABLET DAILY ORAL 07/04/20 07:41 Prescription Detail TAKE 1 TABLET ORAL DAILY Medications Administered During Visit Unknown or Not Available. 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 Discharge Instructions You were admitted to [facility] on 03/06/2021 11:21 with a principal diagnosis of Benign neoplasm of rectum You were discharged from [facility] 01 on 03/06/2021 11:21 Should you have any [...]
--- OUTSIDE RECORDS SUMMARY | 2023-07-12 10:33 | XMS_ITS | CCD ---
Author Name Unknown Address [address] [place] [address] [phone] Organization Unknown Address [address] [place] [address] [phone] Care Team Providers Care Jeeper Operator Name Role Phone VIKI MEI Attending Physician [phone] Vital Signs Unknown or Not Available. Allergies Allergy Code Allergy Type Reaction Status No Known Allergies 0 No known allergies Active Procedures Unknown or Not Available. History of Immunizations Unknown or Not Available. Problems Problem Code Start Date Resolved Date Status TMJ disorder 58955222 Active GERD 216709241 03/08/2022 Resolved Arthritis 9624870 03/08/2022 Resolved Anemia 228857218 03/08/2022 Resolved Dilatation and curettage planned 640680703 10/2021 Resolved Results YAYA COVID RHEONIX* - Reinaldo ect Date/Time: 07/07/2021 22:56 Test Name Code Test Result Test Units Test Ref Rang e Tier- INPATIENT/ED N/A SARS COV2 RNA: 92619-4 NEGATIVE N/A REFERENCE RANGE: NEGAT Active Medications Medication Code Dose Units Frequency Route Modificatio n Start Date/Time Zithromax 250MG Oral Tablet 373825 1 TABLET DAILY ORAL 07/04/20 23 07:41 Prescription Detail TAKE 1 TABLET ORAL DAILY Medications Administered During Visit Unknown or Not Available. Encounters Encounter Diagnosis Diagnosis Code Start Date Exposure to SARS-CoV-2 740300243 Social History Smoking Status Code Start Date End Date Never smoker 056626652 Patient Decision Aids Unknown or Not Available. Discharge Instructions You were admitted to [facility] [place] [facility] on 07/07/2021 22:33 with a principal diagnosis of Contact with and (suspected) exposure to COVID-19 You had the following tests done:YAYA COVID RHEONIX* You were discharged from [facility] [place] [facility] on 07/07/2021 22:33 Should you have [...]
[2023-07-12 14:46] LABS: Abs Immature Grans 0.06 10^3/uL (0.0-0.06); Absolute Eosinophil Count 0.25 10^3/uL (0.0-0.7); Absolute Lymphocyte Count 3.63 10^3/uL (1.2-3.4); Absolute Monocyte Count 0.93 10^3/uL (0.1-0.8); Basophils % 0.5; Eosinophils % 2.3; HCT 41.6 % (36.0-46.0); HGB 13.8 g/dL (11.2-15.7); Immature Grans % 0.5; MCH 29.7 pg (27.0-33.0); MCHC 33.2 % (32.0-36.0); MCV 90 fL (80-95); MPV 9.1 fL (8.0-11.0); Monocytes % 8.5; Neutrophils % 55.2; Platelet Count 560 10^3/uL (130-400); RBC 4.65 10^6/uL (3.93-5.22); RDW 13.6 % (11.7-14.6); RDW-SD 44.6 fL; WBC 10.99 10^3/uL (4.4-10.8)
[2023-07-12 14:47] LABS: Absolute Basophil Count 0.05 10^3/uL (0.0-0.2); Absolute Neutrophil Count 6.07 10^3/uL (1.2-6.7)
[2023-07-12 14:56] LABS: ALT 32 U/L (14-59); AST 28 U/L (15-37); Albumin 3.4 g/dL (3.4-5.0); Alkaline Phosphatase 57 U/L (46-116); Anion Gap 5.2 mmol/L (3-11); BUN 8 mg/dL (7-18); Bilirubin, Total 0.3 mg/dL (0.2-1.0); C-Reactive Protein 0.39 mg/dL (0.0-0.3); CO2 26.8 mmol/L (21.0-32.0); CREATININE 0.9 mg/dL (0.55-1.02); Calcium 8.8 mg/dL (8.5-10.1); Chloride 105 mmol/L (98-107); Estimated GFR 82.88 (mL/min/1.73m2); Glucose 101 mg/dL (74-106); Potassium 3.9 mmol/L (3.5-5.1); Sodium 137 mmol/L (136-145); Total Protein 7.2 g/dL (6.4-8.2)
== END 2023-07-12 10:28 | disposition home or self-care (01) ==
LOC: LBN 10:27
PROVIDERS: PCP Registered Nurse; Visit Provider Internal Medicine Rheumatology
DX: M45.0 Ankylosing spondylitis of multiple sites in spine (principal)
CPT/HCPCS: 80053; 85025; 86140

== ENCOUNTER 2023-10-20 18:00 | Outpatient (REF) | payer MEDICAID, SELFPAY ==
[2023-10-20 21:21] LABS: HCT 42.8 % (36.0-46.0); HGB 14.3 g/dL (11.2-15.7); MCH 30.6 pg (27.0-33.0); MCHC 33.4 % (32.0-36.0); MCV 92 fL (80-95); MPV 9.3 fL (8.0-11.0); Platelet Count 418 10^3/uL (130-400); RBC 4.68 10^6/uL (3.93-5.22); RDW 12.9 % (11.7-14.6); RDW-SD 43.5 fL; WBC 9.21 10^3/uL (4.4-10.8)
[2023-10-20 21:29] LABS: C-Reactive Protein < 0.50 mg/dL (<or=0.5)
[2023-10-20 21:33] LABS: Absolute Basophil Count 0.18 10^3/uL (0.0-0.2); Absolute Eosinophil Count 0.46 10^3/uL (0.0-0.7); Absolute Lymphocyte Count 4.79 10^3/uL (1.2-3.4); Absolute Monocyte Count 0.37 10^3/uL (0.1-0.8); Absolute Neutrophil Count 3.41 10^3/uL (1.2-6.7); Atypical Lymphocytes % 7
[2023-10-20 21:34] LABS: ALT 79 U/L (14-59); AST 50 U/L (15-37); Albumin 3.9 g/dL (3.4-5.0); Alkaline Phosphatase 64 U/L (46-116); Anion Gap 10.4 mmol/L (3-11); BUN 11 mg/dL (7-18); Bilirubin, Total 0.5 mg/dL (0.2-1.0); CO2 26.6 mmol/L (21.0-32.0); CREATININE 0.9 mg/dL (0.55-1.02); Calcium 8.7 mg/dL (8.5-10.1); Chloride 104 mmol/L (98-107); Diff Comment Manual Differential; Estimated GFR 82.88 (mL/min/1.73m2); Glucose 100 mg/dL (74-106); Potassium 3.5 mmol/L (3.5-5.1); RBC Morphology Normal; Sodium 141 mmol/L (136-145); Total Protein 7.5 g/dL (6.4-8.2)
== END 2023-10-20 18:01 | disposition home or self-care (01) ==
LOC: NCHCN 18:00
PROVIDERS: PCP Registered Nurse; Referring Provider Family Medicine; Visit Provider Internal Medicine Rheumatology
DX: M45.5 Ankylosing spondylitis of thoracolumbar region
CPT/HCPCS: 80053; 85025; 86140

== ENCOUNTER 2024-03-14 17:48 | Outpatient (REF) | payer MEDICAID, SELFPAY ==
--- OUTSIDE RECORDS SUMMARY | 2024-03-14 17:49 | XMS_ITS ---
Author Organization Unknown Address [address] [place] [address] [phone] Phone Care Team Providers Care Crown Assembly Machine Operator Name Role Phone SIGIFREDO Wesley Attending Unavailable ANABEL ANTONIO Primary Unavailable Results YAYA STACEY REYEZYEHUDAX* - Reinaldo ect Date/Time: 07/07/2021 22:56 [facility] ID: [id number] [address] [place], [place], [id number] LOINC: 15961-1 Test Value Unit Reference Range Code Code System Flag Tier- INPATIENT/ED SARS COV2 RNA: NEGATIVE REFERENCE RAN GE: NEGAT 06050-9 LOINC Social History Type Status Start Date End Date Code Code Syst em Smoking History Never smoker (Never Smoked) 587383773 SNOMED CT Sex Female Medications Medication Start Date End Date Route Frequency Dose Code Code System Medication Instructions Home Meds Cefpodoxime Proxetil 200MG Oral Tablet 03/08/2022 05/14/2022 ORAL TWICE A DAY 1 TABLET 844179 RxNorm TAKE 1 TABLET ORAL TWICE A DAY Pyridium 100MG Oral Tablet 03/08/2022 05/14/2022 ORAL THREE TIMES A DAY 1 TABLET 6848476 RxNorm TAKE 1 TABLET ORAL THREE TIMES A DAY Zofran 4MG Oral Tablet 09/03/2022 05/23/2023 ORAL EVERY 6 HOURS 1 TABLET 484199 RxNorm TAKE 1 TABLET ORAL EVERY 6 HOURS FOR Nausea Zithromax 250MG Oral Tablet 07/04/2023 Unknown ORAL DAILY 1 TABLET 527367 RxNorm TAKE 1 TABLET ORAL DAILY Assessment You had the following problems:TMJ DISORDER Hospital Discharge Instructions Should you have any questions prior to discharge, please contact a member of your healthcare team. If you have left the hospital and have any questions, please contact your primary care physician. Reason For Referral No Data Found Problems Problem Start Date Resolved Date Status Code Code System TMJ DISORDER active 98531718 SNOMED- CT GERD 03/08/2022 resolved 680242428 SNOMED-CT ARTHRITIS 03/08/2022 resolved 4021002 SNOMED-CT ANEMIA 03/08/2022 resolved 477590081 SNOMED-CT DILATATION AND CURETTAGE PLANNED 03/08/2022 resolved 130643044 SNOMED-CT Allergies and Adverse Reactions Allergy Substance Reaction Severity Start Date Concern Status Co de Code System No Known Allergies Active 559449882 SNO MED-CT Plan of Treatment MRI UPPER EXT JOINT W/O CONTRAST 2023 MRI LOWER EXT JOINT W/O CONTRAST 2022 US ABDOMEN LIMITED 1 ORGAN 09/03/2022 MRI TMJ W/O CONTRAST 06/04/2022 US ABDOMEN LIMITED 1 ORGAN 08/26/2021 Encounters Encounter Diagnosis Start Date Code Code Sys tem Exposure to SARS-CoV-2 07/07/2021 038956725 SNOME D-CT Personal Care Team Section Performer Name Performer Role Active Date Inactive Da te
--- OUTSIDE RECORDS SUMMARY | 2024-03-14 17:50 | XMS_ITS ---
Author Organization Unknown Address [address] [place] [address] [phone] Phone Care Team Providers Care Staying Machine Operator Name Role Phone EDMUND ALVAREZ Primary Unavailable Results MR TEMPOROMANDIBULAR JOINTS WO CONTRAST - Completed: 06/04/2022 11:40 LOINC: [facility] [place], [place] [address] PACS ORDER ENTRY CLERK REPORT Patient Name: DEVIKA BEJARANO MRN: Sex: : Age: [id number] F 1985 [id number] Account: Accession: Admit: StayType: [id number] 06/04/2022 O/P Ordered: Order ID: Submitted: Ordering Provider: 06/04/2022 11:38 [id number] [facility] LIZA SHAFFER Completed: Technologist: Resulted: 06/04/2022 11:40 ALS 06/05/2022 08:03 Study Description: MR TEMPOROMANDIBULAR JOINTS WO CONTRAST Study Reason: CHRONIC BILATERAL TMJ PAIN TECHNIQUE: Multiplanar multisequence MRI performed COMPARISON: No exams were available for comparison FINDINGS: Left TM joint appears unremarkable and there appears to be normal anterior excursion of the condyle and articular disc on the open-mouth sequences. Right TM joint reveals decreased range of motion with decreased anterior excursion of the mandibular condyle on the open-mouth sequence. The articular disc appears displaced anteriorly in both the closed and open-mouth positions. There is no prominent degenerative change in the joint itself. IMPRESSION: 1. There is anterior displacement of the right TM joint articular disc. 2. The left TM joint appears unremarkable. 3. There are no prominent degenerative changes on either side. Report Digitally Signed by Branden Tran on 06/05/2022 08:03 AM EST 06/05/[email or web address] JUSTIN DALE via fax Social History Type Status Start Date End Date Code Code Syst em Smoking History Never smoker (Never Smoked) 719138653 SNOMED CT Sex Female Medications Medication Start Date End Date Route Frequency Dose Code Code System Medication Instructions Home Meds Zofran 4MG Oral Tablet 09/03/2022 05/23/2023 ORAL EVERY 6 HOURS 1 TABLET 096149 RxNorm TAKE 1 TABLET ORAL EVERY 6 HOURS FOR Nausea Zithromax 250MG Oral Tablet 07/04/2023 Unknown ORAL DAILY 1 TABLET 418122 RxNorm TAKE 1 TABLET ORAL DAILY Assessment [...] Status Code Code System TMJ DISORDER active 27787639 SNOMED- CT GERD 03/08/2022 resolved 381269054 SNOMED-CT ARTHRITIS 03/08/2022 resolved 2230092 SNOMED-CT ANEMIA 03/08/2022 resolved 467286103 SNOMED-CT DILATATION AND CURETTAGE PLANNED 03/08/2022 resolved 686880582 SNOMED-CT Allergies and Adverse Reactions Allergy Substance Reaction Severity Start Date Concern Status Co de Code System No Known Allergies Active 497615873 SNO MED-CT Plan of Treatment MRI UPPER EXT JOINT W/O CONTRAST 2023 MRI LOWER EXT JOINT W/O CONTRAST 2022 US ABDOMEN LIMITED 1 ORGAN 09/03/2022 MRI TMJ W/O CONTRAST 06/04/2022 US ABDOMEN LIMITED 1 ORGAN 08/26/2021 Encounters Encounter Diagnosis Start Date Code Code Sys tem Encounter for other preprocedural examination 06/04/20 SNOMED-CT Personal Care Team Section Performer Name Performer Role Active Date Inactive Da te
--- OUTSIDE RECORDS SUMMARY | 2024-03-14 17:50 | XMS_ITS ---
Author Organization Unknown Address [address] [place] [address] [phone] Phone Care Team Providers Care Vamp Seamer Name Role Phone TABATHA CHAPPELL Registered Nurse Unavailable RUBENS Wesley Attending Unavailable ANABEL ANTONIO Primary Unavailable UNLISTED PROVIDER - REQUESTED Xhandoff Un available Results TEST QUALITATIVE ( URINE) - Collect Date/Time: 03/08/2022 08:03 [facility] ID: [id number] [address] [place] [address], [address] LOINC: 2106-3 Test Value Unit Reference Range Code Code System Flag TEST NEGATIVE 2106-3 LOINC URINALYSIS WITH REFLEX CULT IF POSITIVE* - Collect Date/Time: 03/08/2022 08:03 [facility] ID: [id number] [address] [place] [address], [address] LOINC: 94257-1 Test Value Unit Reference Range Code Code System Flag COLLECTION MODE: CLEAN CATCH 91967-2 LOINC Color YELLOW yellow 5778-6 LOINC Appearance CLOUDY clear 5767-9 LOINC Glucose urine NEGATIVE negative mg/dl 25714-2 LOINC Bilirubin NEGATIVE negative 5770-3 LOINC Ketones NEGATIVE negative mg/dl 2514-8 LOINC Spec gravity <=1.005 1.003 - 1.030 5811-5 LOINC pH urine 6.0 5.0 - 7.0 2756-5 LOINC Protein NEGATIVE negative mg/dl 22236-7 LOINC Urobilinogen 0.2 <or= 1 EU/dl 72104-4 LOINC Nitrite. NEGATIVE negative 5802-4 LOINC Blood LARGE negative 5794-3 LOINC A Leukocytes. LARGE negative A MICROSCOPIC INDICATED WBCs. >100 0-5 / hpf 71518-7 LOINC RBCs 5-10 0-5 / hpf 67654-5 LOINC Epith cells 10-25 0-5 / hpf 99622-4 LOINC Cell types squamous Crystals none none Bacteria moderate none Mucus present none 8247-9 LOINC Casts none none /lpf 07745-8 LOINC Other 37039-0 LOINC Social History Type Status Start Date End Date Code Code Syst em Smoking History Never smoker (Never Smoked) 845472103 SNOMED CT Sex Female Vital Signs Vital Sign Value Unit [place] Value [place] Unit Date/Time Recent/Initial? Code Code System Body Mass Index 40.35 kg/m2 03/08/2022 08:13 Initial 52407 -5 INC Systolic Blood Pressure 125 mm[Hg] 03/08/2022 08:13 Initial 8480- 6 LOINC Diastolic Blood Pressure 95 mm[Hg] 03/08/2022 08:13 Initial 8462- 4 [facility] Body Surface Area 2.30 m2 03/08/2022 08:13 Initial 3140- 1 INC Height 167.640 0 cm 66.00 in 03/08/2022 08:13 Initial 8302- 2 INC O2 Saturation 99 % 2021 08:13 Initial 69551 -5 INC Pulse 89.0 /min 03/08/2022 08:13 Initial 8867- 4 INC Respiration 16 /min 03/08/20 22 08:13 Initial 9279- 1 INC Temperature 36.2 Rose 97.2 F 03/08/20 22 08:13 Initial 8310- 5 INC Weight 113.40 kg 250.00 lbs 03/08/2022 08:13 Initial 84264 -7 [facility] Medications Medication Start Date End Date Route Frequency Dose Code Code System Medication Instructions Home Meds Cefpodoxime Proxetil 200MG Oral Tablet 03/08/2022 05/14/2022 ORAL TWICE A DAY 1 TABLET 373737 RxNorm TAKE 1 TABLET ORAL TWICE A DAY Pyridium 100MG Oral Tablet 03/08/2022 05/14/2022 ORAL THREE TIMES A DAY 1 TABLET 1837292 RxNorm TAKE 1 TABLET ORAL THREE TIMES A DAY Zofran 4MG Oral Tablet 09/03/2022 05/23/2023 ORAL EVERY 6 HOURS 1 TABLET 326123 RxNorm TAKE 1 TABLET ORAL EVERY 6 HOURS FOR Nausea Zithromax 250MG Oral Tablet 07/04/2023 Unknown ORAL DAILY 1 TABLET 820978 RxNorm TAKE 1 TABLET ORAL DAILY Assessment You had the following problems:TMJ DISORDER Hospital Discharge Instructions Should you have any questions prior to discharge, please contact a member of your healthcare team. If you have left the hospital and have any questions, please contact your primary care physician. Reason For Referral No Data Found Procedures Procedure Name Date Status Code Code Олег m Ligation of fallopian tube completed 74918914 SNOMEDCT Problems Problem Start Date Resolved Date Status Code Code System TMJ DISORDER active 12488355 SNOMED- CT GERD 03/08/2022 resolved 960973526 SNOMED-CT ARTHRITIS 03/08/2022 resolved 5646454 SNOMED-CT ANEMIA 03/08/2022 resolved 187305358 SNOMED-CT DILATATION AND CURETTAGE PLANNED 03/08/2022 resolved 001617069 SNOMED-CT Allergies and Adverse Reactions Allergy Substance Reaction Severity Start Date Concern Status Co de Code System No Known Allergies Active 515275279 SNO MED-CT Plan of Treatment MRI UPPER EXT JOINT W/O CONTRAST 2023 MRI LOWER EXT JOINT W/O CONTRAST 2022 US ABDOMEN LIMITED 1 ORGAN 09/03/2022 MRI TMJ W/O CONTRAST 06/04/2022 US ABDOMEN LIMITED 1 ORGAN 08/26/2021 Encounters Encounter Diagnosis Start Date Code Code Sys tem Urinary tract infection, site not specified 03/08/2022 SNOMED-CT Personal Care Team Section Performer Name Performer Role Active Date Inactive Da romina
--- OUTSIDE RECORDS SUMMARY | 2024-03-14 17:50 | XMS_ITS ---
Author Organization Unknown Address [address] [place] [phone] Phone Care Team Providers Care Brick Paver Name Role Phone JUAN CARLOS ROSARIO Attending Unavailable ANABEL ANTONIO Primary Unavailable Results US ABD LIMITED ONE ORGAN - C ompleted: 08/26/2021 09:10 LOINC: ABDOMINAL ULTRASOUND:Prior C T scan of 01/13/21 was reviewed. There is no ascites. The liver is hypoechoic indicating steatosis as evident on the prior CT scan. There are no discrete focal hepatic lesions identified. There is a mobile gallstone noted, as seen on prior CT scan. No gallbladder wall edema nor pericholecystic fluid. The common hepatic duct is not dilated measuring 4-5 mm. Pancreas appears unremarkable as does the right kidney. IMPRESSION: 1. Cholelithiasis. No evidence of acute cholecystitis nor dilatation of the biliary tree. 2. Hepatic steatosis. Correlation with hepatic blood work recommended. 3. No ascites. Dictated by: KIERAN HILTON MD Transcribed by: KAYCEE 08/26/2111:27 D Thursday, August 26, 2021 9:04:57 AM [id number] Electronically Reviewed and Signed By: JULIO CÉSAR HILTON MD 08/27/21 07:29 Copy for: 185 [facility]ALTH INFORMATION MGMT Social History Type Status Start Date End Date Code Code Syst em Smoking History Never smoker (Never Smoked) 124309079 SNOMED CT Sex Female Medications Medication Start Date End Date Route Frequency Dose Code Code System Medication Instructions Home Meds Cefpodoxime Proxetil 200MG Oral Tablet 03/08/2022 05/14/2022 ORAL TWICE A DAY 1 TABLET 009666 RxNorm TAKE 1 TABLET ORAL TWICE A DAY Pyridium 100MG Oral Tablet 03/08/2022 05/14/2022 ORAL THREE TIMES A DAY 1 TABLET 6650519 RxNorm TAKE 1 TABLET ORAL THREE TIMES A DAY Zofran 4MG Oral Tablet 09/03/2022 05/23/2023 ORAL EVERY 6 HOURS 1 TABLET 091953 RxNorm TAKE 1 TABLET ORAL EVERY 6 HOURS FOR Nausea Zithromax 250MG Oral Tablet 07/04/2023 Unknown ORAL DAILY 1 TABLET 259178 RxNorm TAKE 1 TABLET ORAL DAILY Assessment [...] Status Code Code System TMJ DISORDER active 53796351 SNOMED- CT GERD 03/08/2022 resolved 109747798 SNOMED-CT ARTHRITIS 03/08/2022 resolved 0942762 SNOMED-CT ANEMIA 03/08/2022 resolved 622790244 SNOMED-CT DILATATION AND CURETTAGE PLANNED 03/08/2022 resolved 195917272 SNOMED-CT Allergies and Adverse Reactions Allergy Substance Reaction Severity Start Date Concern Status Co de Code System No Known Allergies Active 388390350 SNO MED-CT Plan of Treatment MRI UPPER EXT JOINT W/O CONTRAST 2023 MRI LOWER EXT JOINT W/O CONTRAST 2022 US ABDOMEN LIMITED 1 ORGAN 09/03/2022 MRI TMJ W/O CONTRAST 06/04/2022 US ABDOMEN LIMITED 1 ORGAN 08/26/2021 Encounters Encounter Diagnosis Start Date Code Code Sys tem Fatty (change of) liver, not elsewhere classified 08/06 SNOMED-CT Personal Care Team Section Performer Name Performer Role Active Date Inactive Da te
--- OUTSIDE RECORDS SUMMARY | 2024-03-14 17:50 | XMS_ITS ---
Author Organization Unknown Address [address] [place] [address] [phone] Phone Care Team Providers Care Route Service Representative Name Role Phone ANNALISE BARRAZA Registered Nurse Unavailable LEANNA Vazquez Attending Unavailable ANABEL ANTONIO Primary Unavailable UNLISTED PROVIDER - REQUESTED Xhandoff Un available Social History Type Status Start Date End Date Code Code Syst em Smoking History Never smoker (Never Smoked) 461401675 SNOMED CT Sex Female Vital Signs Vital Sign Value Unit [place] Value [place] Unit Date/Time Recent/Initial? Code Code System Body Mass Index 40.35 kg/m2 05/14/2022 13:11 Initial 21231 -5 LOINC Systolic Blood Pressure 163 mm[Hg] 05/14/2022 15:30 Most Recent 8480- 6 LOINC Diastolic Blood Pressure 94 mm[Hg] 05/14/2022 15:30 Most Recent 8462- 4 LOINC Systolic Blood Pressure 173 mm[Hg] 05/14/2022 13:11 Initial 8480- 6 LOINC Diastolic Blood Pressure 113 mm[Hg] 05/14/2022 13:11 Initial 8462- 4 LOINC Body Surface Area 2.30 m2 05/14/2022 13:11 Initial 3140- 1 LOINC Height 167.640 0 cm 66.00 in 05/14/2022 13:11 Initial 8302- 2 LOINC O2 Saturation 94 % 2021 15:30 Most Recent 91159 -5 LOINC O2 Saturation 100 % 2021 13:11 Initial 79502 -5 LOINC Pulse 68.0 /min 05/14/2022 15:30 Most Recent 8867- 4 LOINC Pulse 81.0 /min 05/14/2022 13:11 Initial 8867- 4 LOINC Respiration 18 /min 11/10/20 22 15:30 Most Recent 9279- 1 LOINC Respiration 18 /min 05/14/20 13:11 Initial 9279- 1 LOINC Temperature 35.6 Rose 96.1 F 05/14/20 15:30 Most Recent 8310- 5 LOINC Temperature 36.8 Rose 98.2 F 05/14/20 13:11 Initial 8310- 5 LOINC Weight 113.40 kg 250.00 lbs 05/14/2022 13:11 Initial 56456 -7 [facility] Medications Medication Start Date End Date Route Frequency Dose Code Code System Medication Instructions Home Meds Cefpodoxime Proxetil 200MG Oral Tablet 03/08/2022 05/14/2022 ORAL TWICE A DAY 1 TABLET 990715 RxNorm TAKE 1 TABLET ORAL TWICE A DAY Pyridium 100MG Oral Tablet 03/08/2022 05/14/2022 ORAL THREE TIMES A DAY 1 TABLET 7713944 RxNorm TAKE 1 TABLET ORAL THREE TIMES A DAY Zofran 4MG Oral Tablet 09/03/2022 05/23/2023 ORAL EVERY 6 HOURS 1 TABLET 266609 RxNorm TAKE 1 TABLET ORAL EVERY 6 HOURS FOR Nausea Zithromax 250MG Oral Tablet 07/04/2023 Unknown ORAL DAILY 1 TABLET 155617 RxNorm TAKE 1 TABLET ORAL DAILY Assessment [...] Status Code Code System TMJ DISORDER active 80797377 SNOMED- CT GERD 03/08/2022 resolved 486494517 SNOMED-CT ARTHRITIS 03/08/2022 resolved 3116166 SNOMED-CT ANEMIA 03/08/2022 resolved 141577774 SNOMED-CT DILATATION AND CURETTAGE PLANNED 03/08/2022 resolved 043698341 SNOMED-CT Allergies and Adverse Reactions Allergy Substance Reaction Severity Start Date Concern Status Co de Code System No Known Allergies Active 297268727 SNO MED-CT Plan of Treatment MRI UPPER EXT JOINT W/O CONTRAST 2023 MRI LOWER EXT JOINT W/O CONTRAST 2022 US ABDOMEN LIMITED 1 ORGAN 09/03/2022 MRI TMJ W/O CONTRAST 06/04/2022 US ABDOMEN LIMITED 1 ORGAN 08/26/2021 Encounters Encounter Diagnosis Start Date Code Code Sys tem Left temporomandibular joint disorder, unspecified 04/2022 SNOMED-CT Personal Care Team Section Performer Name Performer Role Active Date Inactive Da te
--- OUTSIDE RECORDS SUMMARY | 2024-03-14 17:51 | XMS_ITS ---
Author Organization Unknown Address [address] [place] [address] [phone] Phone Care Team Providers Care Visitor Services Associate Name Role Phone SANTIAGO Lancaster Attending Unavailable ANABEL ANTONIO Primary Unavailable Social History Type Status Start Date End Date Code Code Syst em Smoking History Never smoker (Never Smoked) 402562497 SNOMED CT Sex Female Medications Medication Start Date End Date Route Frequency Dose Code Code System Medication Instructions Home Meds Zofran 4MG Oral Tablet 09/03/2022 05/23/2023 ORAL EVERY 6 HOURS 1 TABLET 287088 RxNorm TAKE 1 TABLET ORAL EVERY 6 HOURS FOR Nausea Zithromax 250MG Oral Tablet 07/04/2023 Unknown ORAL DAILY 1 TABLET 252981 RxNorm TAKE 1 TABLET ORAL DAILY Assessment [...] Status Code Code System TMJ DISORDER active 87192959 SNOMED- CT GERD 03/08/2022 resolved 519905625 SNOMED-CT ARTHRITIS 03/08/2022 resolved 9982431 SNOMED-CT ANEMIA 03/08/2022 resolved 477499625 SNOMED-CT DILATATION AND CURETTAGE PLANNED 03/08/2022 resolved 868825003 SNOMED-CT Allergies and Adverse Reactions Allergy Substance Reaction Severity Start Date Concern Status Co de Code System No Known Allergies Active 720608651 SNO MED-CT Plan of Treatment MRI UPPER EXT JOINT W/O CONTRAST 2023 MRI LOWER EXT JOINT W/O CONTRAST 2022 US ABDOMEN LIMITED 1 ORGAN 09/03/2022 MRI TMJ W/O CONTRAST 06/04/2022 US ABDOMEN LIMITED 1 ORGAN 08/26/2021 Encounters Encounter Diagnosis Start Date Code Code Sys tem Closed fracture of great toe 11/27/2022 078790461 SNOMED-CT Personal Care Team Section Performer Name Performer Role Active Date Inactive Da te
--- OUTSIDE RECORDS SUMMARY | 2024-03-14 17:51 | XMS_ITS ---
Author Organization Unknown Address [address] [place] [address] [phone] Phone Care Team Providers Care Service Or Work Dispatcher Chief Name Role Phone MAXIME DE LA FUENTE Registered Nurse Unavailable KEMAR Hernández Attending Unavailable ANABEL ANTONIO Primary Unavailable UNLISTED PROVIDER - REQUESTED Xhandoff Un available Results LIPASE* NEW - Collect Date/T rocky: 09/03/2022 06:04 [facility] ID: [id number] [address] [place] [address], [id number] LOINC: 3040-3 Test Value Unit Reference Range Code Code System Flag LIPASE. 31 U/L L=16 H=77 CBC W/ DIFFERENTIAL* - Colle ct Date/Time: 09/03/2022 06:04 [facility] ID: [id number] [address] [place] [address], [address] LOINC: 32722-2 Test Value Unit Reference Range Code Code System Flag WBC 11.62 th/cmm L=5.00 H=10.00 6690-2 LOINC H NEUT % 58.7 % L=40.0 H=80.0 LYMPH % 27.5 % L=10.0 H=50.0 MONO % 8.3 % L=2.0 H=12.0 57916-4 LOINC EOS % 4.4 % L=0.0 H=8.0 BASO % 0.8 % L=0.0 H=3.0 IG % 0.3 % L=0.0 H=1.1 9784-8 LOINC NRBC % 0.0 % L=0.0 H=0.0 49702-2 LOINC NEUT abs count 6.8 th/cmm L=1.6 H=8.4 751-8 LOINC LYMPH abs count 3.2 th/cmm L=1.5 H=4.0 731-0 LOINC MONO abs count 1.0 th/cmm L=0.2 H=1.0 742-7 LOINC EOS abs count 0.5 th/cmm L=0.0 H=0.5 711-2 LOINC BASO abs count 0.1 th/cmm L=0.0 H=0.2 704-7 LOINC IG abs count 0.0 th/cmm L=0.0 H=0.1 35728-0 LOINC NRBC abs count 0.0 mil/cmm L=0.0 H=0.0 78273-2 LOINC RBC 4.72 mil/cmm L=3.90 H=5.40 789-8 LOINC HEMOGLOBIN 13.8 gm/dL L=12.0 H=16.0 718-7 LOINC HEMATOCRIT 42 % L=37 H=47 4544-3 LOINC MCV 90 fL L=82 H=92 787-2 LOINC MCH 29.2 pg L=27.0 H=31.0 785-6 LOINC MCHC 32.6 % L=32.0 H=36.0 786-4 LOINC RDW-SD 44.9 fL L=39.0 H=49.0 788-0 LOINC PLATELET COUNT 480 th/cmm L=150 H=450 777-3 LOINC H COMPREHENSIVE METABOLIC PANE L (CMP) - Collect Date/Time: 09/03/2022 06:04 [facility] ID: [id number] [address] [place], [place], [address] LOINC: 83926-2 Test Value Unit Reference Range Code Code System Flag GLUCOSE 109 mg/dL L=70 H=116 2345-7 LOINC BUN 9 mg/dL L=6 H=25 3094-0 LOINC CREATININE 0.93 mg/dL L=0.51 H=0.95 2160-0 LOINC SODIUM SERUM 137 mmol/L L=136 H=145 2951-2 LOINC POTASSIUM SERUM 3.8 mmol/L L=3.4 H=5.2 2823-3 LOINC CHLORIDE SERUM 104 mmol/L L=96 H=110 2075-0 LOINC CARBON DIOXIDE (CO2) 27 mmol/L L=22 H=34 2028-9 LOINC ANION GAP 6.4 mmol/L 75770-8 LOINC CALCIUM SERUM 8.8 mg/dL L=8.2 H=10.2 68525-1 LOINC BILIRUBIN TOTAL 0.6 mg/dL L=0.0 H=1.3 1975-2 LOINC ALK. PHOS. 76 U/L L=46 H=116 6768-6 LOINC SGOT (AST) 32 U/L L=15 H=37 1920-8 LOINC SGPT (ALT) 44 U/L L=12 H=78 1742-6 LOINC TOTAL PROTEIN 7.7 gm/dL L=6.0 H=8.0 2885-2 LOINC ALBUMIN 3.7 gm/dL L=3.4 H=5.0 1751-7 LOINC AGE 37 years eGFR (non-Afr.Amer.) 67 mL/min 40067-8 LOINC eGFR (Afr-Bermudian) 81 mL/min 96614-7 [facility] - Collect Date/Time: 09/03/2022 06:04 [facility] ID: [id number] [address] [place] [address], [address] LOINC: 2106-3 Test Value Unit Reference Range Code Code System Flag TEST NEGATIVE 2105-3 LOINC URINALYSIS WITH REFLEX CULT IF POSITIVE* - Collect Date/Time: 09/03/2022 06:04 [facility] ID: [id number] [address] [place] [address], [address] LOINC: 68882-5 Test Value Unit Reference Range Code Code System Flag COLLECTION MODE: CLEAN CATCH 22705-3 LOINC Color STRAW yellow 5778-6 LOINC Appearance CLEAR clear 5767-9 LOINC Glucose urine NEGATIVE negative mg/dl 73309-3 LOINC Bilirubin SMALL negative 5770-3 LOINC A Ketones NEGATIVE negative mg/dl 2514-8 LOINC Spec gravity 1.025 1.003 - 1.030 5811-5 LOINC pH urine 6.0 5.0 - 7.0 2756-5 LOINC Protein NEGATIVE negative mg/dl 02692-5 LOINC Urobilinogen 0.2 <or= 1 EU/dl 39943-5 LOINC Nitrite. NEGATIVE negative 5802-4 LOINC Blood NEGATIVE negative 5794-3 LOINC Leukocytes. NEGATIVE negative MICROSCOPIC NOT INDICAT Social History Type Status Start Date End Date Code Code Syst em Smoking History Never smoker (Never Smoked) 714872481 SNOMED CT Sex Female Vital Signs Vital Sign Value Unit [place] Value [place] Unit Date/Time Recent/Initial? Code Code System Body Mass Index 43.58 kg/m2 09/03/2022 06:01 Initial 88749 -5 LOINC Systolic Blood Pressure 119 mm[Hg] 09/03/2022 06:35 Most Recent 8480- 6 LOINC Diastolic Blood Pressure 74 mm[Hg] 09/03/2022 06:35 Most Recent 8462- 4 LOINC Systolic Blood Pressure 132 mm[Hg] 09/03/2022 06:01 Initial 8480- 6 LOINC Diastolic Blood Pressure 89 mm[Hg] 09/03/2022 06:01 Initial 8462- 4 LOINC Body Surface Area 2.39 m2 09/03/2022 06:01 Initial 3140- 1 LOINC Height 167.640 0 cm 66.00 in 09/03/2022 06:01 Initial 8302- 2 INC O2 Saturation 99 % 2022 06:35 Most Recent 22897 -5 LOINC O2 Saturation 99 % 2022 06:01 Initial 98967 -5 LOINC Pulse 74.0 /min 09/03/2022 06:35 Most Recent 8867- 4 LOINC Pulse 80.0 /min 09/03/2022 06:01 Initial 8867- 4 LOINC Respiration 14 /min 09/04/19 06:35 Most Recent 9279- 1 LOINC Respiration 14 /min 09/04/19 23 06:01 Initial 9279- 1 LOINC Temperature 36.3 Rose 97.3 F 09/04/19 23 06:01 Initial 8310- 5 LOINC Weight 122.47 kg 270.00 lbs 09/03/2022 06:01 Initial 60106 -7 [facility] Medications Medication Start Date End Date Route Frequency Dose Code Code System Medication Instructions Home Meds Zofran 4MG Oral Tablet 09/03/2022 05/23/2023 ORAL EVERY 6 HOURS 1 TABLET 235019 RxNorm TAKE 1 TABLET ORAL EVERY 6 HOURS FOR Nausea Zithromax 250MG Oral Tablet 07/04/2023 Unknown ORAL DAILY 1 TABLET 261446 RxNorm TAKE 1 TABLET ORAL DAILY Assessment [...] Status Code Code System TMJ DISORDER active 54369847 SNOMED- CT GERD 03/08/2022 resolved 963941454 SNOMED-CT ARTHRITIS 03/08/2022 resolved 4134241 SNOMED-CT ANEMIA 03/08/2022 resolved 430705607 SNOMED-CT DILATATION AND CURETTAGE PLANNED 03/08/2022 resolved 478198733 SNOMED-CT Allergies and Adverse Reactions Allergy Substance Reaction Severity Start Date Concern Status Co de Code System No Known Allergies Active 705542514 SNO MED-CT Plan of Treatment MRI UPPER EXT JOINT W/O CONTRAST 2023 MRI LOWER EXT JOINT W/O CONTRAST 2022 US ABDOMEN LIMITED 1 ORGAN 09/03/2022 MRI TMJ W/O CONTRAST 06/04/2022 US ABDOMEN LIMITED 1 ORGAN 08/26/2021 Encounters Encounter Diagnosis Start Date Code Code Sys tem Right upper quadrant pain 09/03/2022 SN OMED-CT Personal Care Team Section Performer Name Performer Role Active Date Inactive Da te
--- OUTSIDE RECORDS SUMMARY | 2024-03-14 17:51 | XMS_ITS ---
Author Organization Unknown Address [address] [place] [address] [phone] Phone Care Team Providers Care Precipitator Name Role Phone PISC MICHELLE Alonzo Attending Unavailable ANABEL ANTONIO Primary Unavailable Results US ABD LIMITED ONE ORGAN - C ompleted: 09/03/2022 10:15 LOINC: RADIOLOGY [place], [place] [address] PACS DISC INSPECTOR REPORT Patient Name: DEVIKA BEJARANO MRN: Sex: : Age: [id number] F 1985 [id number] Account: Accession: Admit: StayType: [id number] 09/03/2022 O/P Ordered: Order ID: Submitted: Ordering Provider: 09/03/2022 07:38 [id number] MICHELLE TORREZ Completed: Technologist: Resulted: 09/03/2022 10:15 ER 09/03/2022 15:54 Study Description: US ABD LIMITED ONE ORGAN Study Reason: RUQ PAIN TECHNIQUE: Ultrasound abdomen performed using standard protocol. COMPARISON: Prior CT scan January 2021. Also prior ultrasound August 2021. FINDINGS: There is no ascites evident. LIVER: The liver is enlarged and is again noted to be hyperechoic, indicating steatosis. There are no discrete focal hepatic lesions identified. GALLBLADDER/BILIARY: There are no gallstones identified on the present study.. No gallbladder wall edema nor pericholecystic fluid. The common hepatic duct isnot dilated, measuring 3-4mm at the level of aleena hepatis. PANCREAS: There is no evidence of pancreatic mass nor dilatation of the pancreatic duct. RIGHT KIDNEY:No evidence of solid mass, calculus, nor hydronephrosis. No cortical cysts evident. ABDOMINAL AORTA AND IVC: Visualized portions exhibit normal caliber. IMPRESSION: 1. Hepatic steatosis again noted. Correlation with appropriate hepatic blood work recommended. 2. No obvious gallstones evident on the present study. No ultrasound evidence of acute cholecystitis. Please note that prior ultrasound examination of August 2021 did reveal tiny gallstones. 3. No other right upper quadrant ultrasound findings. There is no ascites. Report Digitally Signed by Branden Tran on 09/03/2022 03:54 PM EST 09/03/[email or web address] .to JUSTIN DALE via fax Social History Type Status Start Date End Date Code Code Syst em Smoking History Never smoker (Never Smoked) 737918839 SNOMED CT Sex Female Medications Medication Start Date End Date Route Frequency Dose Code Code System Medication Instructions Home Meds Zofran 4MG Oral Tablet 09/03/2022 05/23/2023 ORAL EVERY 6 HOURS 1 TABLET 613469 RxNorm TAKE 1 TABLET ORAL EVERY 6 HOURS FOR Nausea Zithromax 250MG Oral Tablet 07/04/2023 Unknown ORAL DAILY 1 TABLET 579077 RxNorm TAKE 1 TABLET ORAL DAILY Assessment [...] Status Code Code System TMJ DISORDER active 15693201 SNOMED- CT GERD 03/08/2022 resolved 163838033 SNOMED-CT ARTHRITIS 03/08/2022 resolved 9849213 SNOMED-CT ANEMIA 03/08/2022 resolved 875465112 SNOMED-CT DILATATION AND CURETTAGE PLANNED 03/08/2022 resolved 666186644 SNOMED-CT Allergies and Adverse Reactions Allergy Substance Reaction Severity Start Date Concern Status Co de Code System No Known Allergies Active 934522615 SNO MED-CT Plan of Treatment MRI UPPER EXT JOINT W/O CONTRAST 2023 MRI LOWER EXT JOINT W/O CONTRAST 2022 US ABDOMEN LIMITED 1 ORGAN 09/03/2022 MRI TMJ W/O CONTRAST 06/04/2022 US ABDOMEN LIMITED 1 ORGAN 08/26/2021 Encounters Encounter Diagnosis Start Date Code Code Sys tem Right upper quadrant pain 09/03/2022 866485237 SN OMED-CT Personal Care Team Section Performer Name Performer Role Active Date Inactive Da te
--- OUTSIDE RECORDS SUMMARY | 2024-03-14 17:51 | XMS_ITS ---
Author Organization Unknown Address [address] [place] [address] [phone] Phone Care Team Providers Care Insulation Board Coater Operator Name Role Phone GRIS ORTIZ Registered Nurse Yang Murphy Attending Unavailable ANABEL ANTONIO Primary Unavailable UNLISTED PROVIDER - REQUESTED Xhandoff Un available Results XR ANKLE LT 3V* - Completed: 11/24/2022 20:52 LOINC: [place], [place] [address] PACS GAS TECHNICIAN REPORT Patient Name: DEVIKA BEJARANO MRN: Sex: : Age: [id number] F 1985 37 Account: Accession: Admit: StayType: [id number] 11/24/2022 E/R Ordered: Order ID: Submitted: Ordering Provider: 11/24/2022 20:39 [id number] ATUL SOLOMON Completed: Technologist: Resulted: 11/24/2022 20:52 KM 11/25/2022 09:30 Study Description: XR ANKLE LT 3V Study Reason: Trauma Technique: 2D digital imaging was performed. 3 images were obtained. COMPARISON: None. FINDINGS: Bones: There are 2 densities inferior to the distal fibula and lateral to the talus and calcaneus. They appear irregular suggesting acute avulsed fracture fragments. There is soft tissue swelling of the ankle laterally. No bony destructive lesion is seen. There is a small enthesophyte at the posterior calcaneus. There is a small plantar calcaneal spur. Joints: No dislocation is present. The joint spaces are well-maintained. Soft tissues: Unremarkable. IMPRESSION: 2 irregular densities lateral to the talus and calcaneus with associated soft tissue swelling suspicious for avulsed fracture fragments. Report Digitally Signed by Serafin Zapata on 11/25/2022 09:30 AM EDT Social History Type Status Start Date End Date Code Code Syst em Smoking History Never smoker (Never Smoked) 025721882 SNOMED CT Sex Female Vital Signs Vital Sign Value Unit [place] Value [place] Unit Date/Time Recent/Initial? Code Code System Body Mass Index 41.65 kg/m2 11/24/2022 20:35 Initial 37225 -5 LOINC Systolic Blood Pressure 131 mm[Hg] 11/24/2022 21:44 Most Recent 8480- 6 LOINC Diastolic Blood Pressure 98 mm[Hg] 11/24/2022 21:44 Most Recent 8462- 4 LOINC Systolic Blood Pressure 143 mm[Hg] 11/24/2022 20:35 Initial 8480- 6 LOINC Diastolic Blood Pressure 90 mm[Hg] 11/24/2022 20:35 Initial 8462- 4 LOINC Body Surface Area 2.28 m2 11/24/2022 20:35 Initial 3140- 1 LOINC Height 164.998 4 cm 64.96 in 11/24/2022 20:35 Initial 8302- 2 LOINC O2 Saturation 97 % 2022 21:44 Most Recent 65235 -5 LOINC O2 Saturation 100 % 2022 20:35 Initial 78298 -5 LOINC Pulse 91.0 /min 11/24/2022 21:44 Most Recent 8867- 4 LOINC Pulse 81.0 /min 11/24/2022 20:35 Initial 8867- 4 LOINC Respiration 18 /min 11/25/19 21:44 Most Recent 9279- 1 LOINC Respiration 18 /min 11/25/19 20:35 Initial 9279- 1 LOINC Temperature 36.1 Rose 97.0 F 11/25/19 21:44 Most Recent 8310- 5 LOINC Temperature 36.5 Rose 97.7 F 11/25/19 20:35 Initial 8310- 5 LOINC Weight 113.40 kg 250.00 lbs 11/24/2022 20:35 Initial 72002 -7 LOINC Medications Medication Start Date End Date Route Frequency Dose Code Code System Medication Instructions Home Meds Zofran 4MG Oral Tablet 09/03/2022 05/23/2023 ORAL EVERY 6 HOURS 1 TABLET 825540 RxNorm TAKE 1 TABLET ORAL EVERY 6 HOURS FOR Nausea Zithromax 250MG Oral Tablet 07/04/2023 Unknown ORAL DAILY 1 TABLET 650873 RxNorm TAKE 1 TABLET ORAL DAILY Assessment [...] Status Code Code System TMJ DISORDER active 62508994 SNOMED- CT GERD 03/08/2022 resolved 750562319 SNOMED-CT ARTHRITIS 03/08/2022 resolved 1354065 SNOMED-CT ANEMIA 03/08/2022 resolved 736942223 SNOMED-CT DILATATION AND CURETTAGE PLANNED 03/08/2022 resolved 076996783 SNOMED-CT Allergies and Adverse Reactions Allergy Substance Reaction Severity Start Date Concern Status Co de Code System No Known Allergies Active 089362323 SNO MED-CT Plan of Treatment MRI UPPER EXT JOINT W/O CONTRAST 2023 MRI LOWER EXT JOINT W/O CONTRAST 2022 US ABDOMEN LIMITED 1 ORGAN 09/03/2022 MRI TMJ W/O CONTRAST 06/04/2022 US ABDOMEN LIMITED 1 ORGAN 08/26/2021 Encounters Encounter Diagnosis Start Date Code Code Sys tem 11/24/2022 [id number] SNOMED-CT Personal Care Team Section Performer Name Performer Role Active Date Inactive Edward vanegas
--- OUTSIDE RECORDS SUMMARY | 2024-03-14 17:52 | XMS_ITS ---
Author Organization Unknown Address [address] [place] [address] [phone] Phone Care Team Providers Care Remelt Operator Name Role Phone FELIX Santamaria Attending Unavailable ANABEL ANTONIO Primary Unavailable Results XR KNEE 4V RT* - Completed: 12/17/2022 17:06 LOINC: [place], [place] [address] PACS PROCESS OPERATOR REPORT Patient Name: DEVIKA BEJARANO MRN: Sex: : Age: [id number] F 1985 37 Account: Accession: Admit: StayType: [id number] 12/17/2022 O/P Ordered: Order ID: Submitted: Ordering Provider: 12/17/2022 11:55 [id number] GLEN DRAPER Completed: Technologist: Resulted: 12/17/2022 17:06 BMM 12/17/2022 17:10 Study Description: XR KNEE 4V RT Study Reason: RT KNEE PAIN Technique: 2D digital imaging was performed. 4 images were obtained. COMPARISON: None FINDINGS: No acute fracture or dislocation. Mild degenerative changes. No joint effusion. IMPRESSION: No significant abnormality. Report Digitally Signed by Bong Grossman on 12/17/2022 05:10 PM EDT Social History Type Status Start Date End Date Code Code Syst em Smoking History Never smoker (Never Smoked) 988651900 SNOMED CT Sex Female Medications Medication Start Date End Date Route Frequency Dose Code Code System Medication Instructions Home Meds Zofran 4MG Oral Tablet 09/03/2022 05/23/2023 ORAL EVERY 6 HOURS 1 TABLET 125124 RxNorm TAKE 1 TABLET ORAL EVERY 6 HOURS FOR Nausea Zithromax 250MG Oral Tablet 07/04/2023 Unknown ORAL DAILY 1 TABLET 117179 RxNorm TAKE 1 TABLET ORAL DAILY Assessment [...] Status Code Code System TMJ DISORDER active 32775234 SNOMED- CT GERD 03/08/2022 resolved 438151188 SNOMED-CT ARTHRITIS 03/08/2022 resolved 0367424 SNOMED-CT ANEMIA 03/08/2022 resolved 753743564 SNOMED-CT DILATATION AND CURETTAGE PLANNED 03/08/2022 resolved 526755122 SNOMED-CT Allergies and Adverse Reactions Allergy Substance Reaction Severity Start Date Concern Status Co de Code System No Known Allergies Active 570111743 SNO MED-CT Plan of Treatment MRI UPPER EXT JOINT W/O CONTRAST 2023 MRI LOWER EXT JOINT W/O CONTRAST 2022 US ABDOMEN LIMITED 1 ORGAN 09/03/2022 MRI TMJ W/O CONTRAST 06/04/2022 US ABDOMEN LIMITED 1 ORGAN 08/26/2021 Encounters Encounter Diagnosis Start Date Code Code Sys tem Pain in right knee 12/17/2022 SNOMED-CT Personal Care Team Section Performer Name Performer Role Active Date Inactive Da te
--- OUTSIDE RECORDS SUMMARY | 2024-03-14 17:53 | XMS_ITS ---
Author Organization Unknown Address [address] [place] [address] [phone] Phone Care Team Providers Care Inspector Conveyor Line Name Role Phone SANTIAGO Lancaster Attending Unavailable ANABEL ANTONIO Primary Unavailable Social History Type Status Start Date End Date Code Code Syst em Smoking History Never smoker (Never Smoked) 809805067 SNOMED CT Sex Female Medications Medication Start Date End Date Route Frequency Dose Code Code System Medication Instructions Home Meds Zofran 4MG Oral Tablet 09/03/2022 05/23/2023 ORAL EVERY 6 HOURS 1 TABLET 901541 RxNorm TAKE 1 TABLET ORAL EVERY 6 HOURS FOR Nausea Zithromax 250MG Oral Tablet 07/04/2023 Unknown ORAL DAILY 1 TABLET 515177 RxNorm TAKE 1 TABLET ORAL DAILY Assessment [...] Status Code Code System TMJ DISORDER active 49493338 SNOMED- CT GERD 03/08/2022 resolved 468095485 SNOMED-CT ARTHRITIS 03/08/2022 resolved 4355628 SNOMED-CT ANEMIA 03/08/2022 resolved 123828491 SNOMED-CT DILATATION AND CURETTAGE PLANNED 03/08/2022 resolved 177124692 SNOMED-CT Allergies and Adverse Reactions Allergy Substance Reaction Severity Start Date Concern Status Co de Code System No Known Allergies Active 816360962 SNO MED-CT Plan of Treatment MRI UPPER EXT JOINT W/O CONTRAST 2023 MRI LOWER EXT JOINT W/O CONTRAST 2022 US ABDOMEN LIMITED 1 ORGAN 09/03/2022 MRI TMJ W/O CONTRAST 06/04/2022 US ABDOMEN LIMITED 1 ORGAN 08/26/2021 Encounters Encounter Diagnosis Start Date Code Code Sys tem Arthralgia of the ankle and/or foot 04/05/2023 55651 4009 SNOMED-CT Personal Care Team Section Performer Name Performer Role Active Date Inactive Da te
--- OUTSIDE RECORDS SUMMARY | 2024-03-14 17:53 | XMS_ITS ---
Author Organization Unknown Address [address] [place] [address] [phone] Phone Care Team Providers Care Personal Companion Name Role Phone LAMAR DOWELLESTELA Registered Nurse Unavailable LEANNA Vazquez Attending Unavailable EVITA Santamaria ER Unavailable ANABEL ANTONIO Primary Unavailable UNLISTED PROVIDER - REQUESTED Xhandoff Un available Results [facility] FLU RSV GENEXPE RT - Collect Date/Time: 05/23/2023 10:35 [facility] ID: [id number] [address] [place] [address], [id number] LOINC: 44481-3 Test Value Unit Reference Range Code Code System Flag COVID NEGATIVE Normal: Negative 63331-3 LOINC INFLUENZA A DNA NEGATIVE Normal: Negative 52701-8 LOINC INFLUENZA B DNA NEGATIVE Normal: Negative 90238-4 LOINC RSV DNA NEGATIVE Normal: Negative 08170-3 LOINC XR CHEST 2V PA AND LATERAL - Completed: 05/23/2023 10:42 LOINC: [facility] RADIOLOGY [place], [place] [address] PACS TECHNICAL ADMINISTRATOR REPORT Patient Name: DEVIKA BEJARANO MRN: Sex: : Age: [id number] F 1985 37 Account: Accession: Admit: StayType: [id number] 05/23/2023 E/R Ordered: Order ID: Submitted: Ordering Provider: 05/23/2023 10:30 [id number] SHAHRAM WYLIE Completed: Technologist: Resulted: 05/23/2023 10:42 KMD 05/23/2023 13:37 Study Description: XR CHEST 2V PA AND LATERAL Study Reason: Cough TECHNIQUE: 2D Digital imaging Number of views: 2 Views COMPARISON: 15 April 2020 FINDINGS: LUNGS: Clear. PLEURA: No pleural abnormality seen. HEART: Normal size. AORTA: Normal diameter. BONES: Unremarkable for age. SOFT TISSUES: Unremarkable. IMPRESSION: No acute findings. Report Digitally Signed by Yenny Peterson on 05/23/2023 01:37 PM EST Social History Type Status Start Date End Date Code Code Syst em Smoking History Never smoker (Never Smoked) 796651422 SNOMED CT Sex Female Vital Signs Vital Sign Value Unit [place] Value [place] Unit Date/Time Recent/Initial? Code Code System Body Mass Index 41.96 kg/m2 05/23/2023 10:15 Initial 24334 -5 LOINC Systolic Blood Pressure 125 mm[Hg] 05/23/2023 12:03 Most Recent 8480- 6 LOINC Diastolic Blood Pressure 83 mm[Hg] 05/23/2023 12:03 Most Recent 8462- 4 LOINC Systolic Blood Pressure 130 mm[Hg] 05/23/2023 10:15 Initial 8480- 6 LOINC Diastolic Blood Pressure 89 mm[Hg] 05/23/2023 10:15 Initial 8462- 4 LOINC Body Surface Area 2.34 m2 05/23/2023 10:15 Initial 3140- 1 LOINC Height 167.640 0 cm 66.00 in 05/23/2023 10:15 Initial 8302- 2 LOINC O2 Saturation 97 % 2022 12:03 Most Recent 96135 -5 LOINC O2 Saturation 98 % 2022 10:15 Initial 88751 -5 LOINC Pulse 76.0 /min 05/23/2023 12:03 Most Recent 8867- 4 LOINC Pulse 86.0 /min 05/23/2023 10:15 Initial 8867- 4 LOINC Respiration 18 /min 05/23/20 12:03 Most Recent 9279- 1 LOINC Respiration 18 /min 05/23/20 10:15 Initial 9279- 1 LOINC Temperature 36.2 Rose 97.2 F 05/23/20 12:03 Most Recent 8310- 5 LOINC Temperature 36.0 Rose 96.8 F 05/23/20 10:15 Initial 8310- 5 LOINC Weight 117.93 kg 260.00 lbs 05/23/2023 10:15 Initial 33270 -7 LOINC Medications Medication Start Date End Date Route Frequency Dose Code Code System Medication Instructions Home Meds Zofran 4MG Oral Tablet 09/03/2022 05/23/2023 ORAL EVERY 6 HOURS 1 TABLET 946923 RxNorm TAKE 1 TABLET ORAL EVERY 6 HOURS FOR Nausea Zithromax 250MG Oral Tablet 07/04/2023 Unknown ORAL DAILY 1 TABLET 797828 RxNorm TAKE 1 TABLET ORAL DAILY Assessment [...] Status Code Code System TMJ DISORDER active 74594408 SNOMED- CT GERD 03/08/2022 resolved 606282382 SNOMED-CT ARTHRITIS 03/08/2022 resolved 4759446 SNOMED-CT ANEMIA 03/08/2022 resolved 307334184 SNOMED-CT DILATATION AND CURETTAGE PLANNED 03/08/2022 resolved 263903511 SNOMED-CT Allergies and Adverse Reactions Allergy Substance Reaction Severity Start Date Concern Status Co de Code System No Known Allergies Active 330332622 SNO MED-CT Plan of Treatment MRI UPPER EXT JOINT W/O CONTRAST 2023 MRI LOWER EXT JOINT W/O CONTRAST 2022 US ABDOMEN LIMITED 1 ORGAN 09/03/2022 MRI TMJ W/O CONTRAST 06/04/2022 US ABDOMEN LIMITED 1 ORGAN 08/26/2021 Encounters Encounter Diagnosis Start Date Code Code Sys tem Acute upper respiratory infection 05/23/2023 9785977 5 SNOMED-CT Personal Care Team Section Performer Name Performer Role Active Date Inactive Da te
--- OUTSIDE RECORDS SUMMARY | 2024-03-14 17:53 | XMS_ITS ---
Author Organization Unknown Address [address] [place] [address] [phone] Phone Care Team Providers Care Special Tax Auditor Name Role Phone MELLISSA BELL Registered Nurse Unavailable QUINTON Vazquez Attending Unavailable ANABEL ANTONIO Primary Unavailable UNLISTED PROVIDER - REQUESTED Xhandoff Un available Social History Type Status Start Date End Date Code Code Syst em Smoking History Never smoker (Never Smoked) 684333026 SNOMED CT Sex Female Vital Signs Vital Sign Value Unit [place] Value [place] Unit Date/Time Recent/Initial? Code Code System Body Mass Index 42.77 kg/m2 07/04/2023 07:34 Initial 40477 -5 [facility] Systolic Blood Pressure 139 mm[Hg] 07/04/2023 07:34 Initial 8480- 6 LOINC Diastolic Blood Pressure 69 mm[Hg] 07/04/2023 07:34 Initial 8462- 4 [facility] Body Surface Area 2.37 m2 07/04/2023 07:34 Initial 3140- 1 LOINC Height 167.640 0 cm 66.00 in 07/04/2023 07:34 Initial 8302- 2 LOINC O2 Saturation 97 % 2022 07:34 Initial 48692 -5 [facility] Pulse 89.0 /min 07/04/2023 07:34 Initial 8867- 4 LOINC Respiration 16 /min 07/04/20 07:34 Initial 9279- 1 LOINC Temperature 36.3 Rose 97.3 F 07/04/20 07:34 Initial 8310- 5 LOINC Weight 120.20 kg 265.00 lbs 07/04/2023 07:34 Initial 38728 -7 [facility] Medications Medication Start Date End Date Route Frequency Dose Code Code System Medication Instructions Home Meds Zithromax 250MG Oral Tablet 07/04/2023 Unknown ORAL DAILY 1 TABLET 039853 RxNorm TAKE 1 T ABLET ORAL DAILY Assessment You had the following problems:TMJ DISORDER Hospital Discharge Instructions Should you have any questions prior to discharge, please contact a member of your healthcare team. If you have left the hospital and have any questions, please contact your primary care physician. Reason For Referral No Data Found Problems Problem Start Date Resolved Date Status Code Code System TMJ DISORDER active 24355700 SNOMED- CT GERD 03/08/2022 resolved 786744101 SNOMED-CT ARTHRITIS 03/08/2022 resolved 9344023 SNOMED-CT ANEMIA 03/08/2022 resolved 295593277 SNOMED-CT DILATATION AND CURETTAGE PLANNED 03/08/2022 resolved 068417026 SNOMED-CT Allergies and Adverse Reactions Allergy Substance Reaction Severity Start Date Concern Status Co de Code System No Known Allergies Active 304864262 SNO MED-CT Plan of Treatment MRI UPPER EXT JOINT W/O CONTRAST 2023 MRI LOWER EXT JOINT W/O CONTRAST 2022 US ABDOMEN LIMITED 1 ORGAN 09/03/2022 MRI TMJ W/O CONTRAST 06/04/2022 US ABDOMEN LIMITED 1 ORGAN 08/26/2021 Encounters Encounter Diagnosis Start Date Code Code Sys tem Bronchitis 07/04/2023 68662457 SNOMED-CT Personal Care Team Section Performer Name Performer Role Active Date Inactive Da romina
--- OUTSIDE RECORDS SUMMARY | 2024-03-14 17:53 | XMS_ITS ---
Author Organization Unknown Address [address] [place] [address] [phone] Phone Care Team Providers Care Mailer Apprentice Name Role Phone SANTIAGO Lancaster Attending Unavailable ANABEL ANTONIO Primary Unavailable Results MR LOWER EXT ANY JOINT LT WO CONTRAST - Completed: 04/02/2023 13:44 LOINC: [No content] Social History Type Status Start Date End Date Code Code Syst em Smoking History Never smoker (Never Smoked) 742808852 SNOMED CT Sex Female Medications Medication Start Date End Date Route Frequency Dose Code Code System Medication Instructions Home Meds Zofran 4MG Oral Tablet 09/03/2022 05/23/2023 ORAL EVERY 6 HOURS 1 TABLET 232135 RxNorm TAKE 1 TABLET ORAL EVERY 6 HOURS FOR Nausea Zithromax 250MG Oral Tablet 07/04/2023 Unknown ORAL DAILY 1 TABLET 894313 RxNorm TAKE 1 TABLET ORAL DAILY Assessment [...] Status Code Code System TMJ DISORDER active 70723300 SNOMED- CT GERD 03/08/2022 resolved 156388338 SNOMED-CT ARTHRITIS 03/08/2022 resolved 7099464 SNOMED-CT ANEMIA 03/08/2022 resolved 743058069 SNOMED-CT DILATATION AND CURETTAGE PLANNED 03/08/2022 resolved 182606095 SNOMED-CT Allergies and Adverse Reactions Allergy Substance Reaction Severity Start Date Concern Status Co de Code System No Known Allergies Active 426076501 SNO MED-CT Plan of Treatment MRI UPPER EXT JOINT W/O CONTRAST 2023 MRI LOWER EXT JOINT W/O CONTRAST 2022 US ABDOMEN LIMITED 1 ORGAN 09/03/2022 MRI TMJ W/O CONTRAST 06/04/2022 US ABDOMEN LIMITED 1 ORGAN 08/26/2021 Encounters Encounter Diagnosis Start Date Code Code Sys tem 04/02/2023 [id number] SNOMED-CT Personal Care Team Section Performer Name Performer Role Active Date Inactive Da te
--- OUTSIDE RECORDS SUMMARY | 2024-03-14 17:54 | XMS_ITS ---
Author Organization Unknown Address [address] [place] [address] [phone] Phone Care Team Providers Care Speaking Unit Assembler Name Role Phone GRIS ORTIZ Registered Nurse Familia GARRISON Attending Unavailable QUINTON BOONE Unavailable ANABEL ANTONIO Primary Unavailable UNLISTED PROVIDER - REQUESTED Xhandoff Un available Results XR FOOT 3V RT* - Completed: 01/21/2024 14:53 LOINC: [facility] RADIOLOGY [place], [place] [address] RADIOLOGY PACS SECURITY ASSURANCE ANALYST REPORT Patient Name: DEVIKA BEJARANO MRN: Sex: : Age: [id number] F 1985 38 Account: Accession: Admit: StayType: [id number] 01/21/2024 E Ordered: Order ID: Submitted: Ordering Provider: 01/21/2024 14:43 [id number] BLADIMIR SPRAGUE Completed: Technologist: Resulted: 01/21/2024 14:49 AXS 01/21/2024 15:02 FINAL REPORT EXAMINATION: XR FOOT 3V RT CLINICAL HISTORY: Reason for Extrem: Trauma Add'l Info: TECHNIQUE: 3 views RIGHT foot COMPARISON: None FINDINGS: Small curvilinear bone fragment adjacent to the tip the lateral malleolus on the AP view which is consistent with age-indeterminate avulsion injury. No other fracture or dislocation. Normal joint spacing. Normal alignment at tarsometatarsal joints on this nonweightbearing exam. Posterior calcaneal spur. IMPRESSION: Age-indeterminate small avulsion fracture at the tip of the lateral malleolus. Correlate clinically. No other fracture or dislocation. Thank you for letting us participate in the care of this patient. If you are a health care provider and have any questions regarding this report, please contact the number below. For patients who have questions please contact the health primary care physician that requested your imaging first. Electronically signed by: Milton Zhang MD [facility] ([phone]), at 01/21/2024 3:02 PM Social History Type Status Start Date End Date Code Code Syst em Smoking History Never smoker (Never Smoked) 152018941 SNOMED CT Sex Female Vital Signs Vital Sign Value Unit [place] Value [place] Unit Date/Time Recent/Initial? Code Code System Body Mass Index 43.27 kg/m2 01/21/2024 14:39 Initial 73748 -5 LOINC Systolic Blood Pressure 134 mm[Hg] 01/21/2024 14:39 Initial 8480- 6 LOINC Diastolic Blood Pressure 101 mm[Hg] 01/21/2024 14:39 Initial 8462- 4 LOINC Body Surface Area 2.33 m2 01/21/2024 14:39 Initial 3140- 1 LOINC Height 165.100 0 cm 65.00 in 01/21/2024 14:39 Initial 8302- 2 LOINC O2 Saturation 100 % 2023 14:39 Initial 27425 -5 LOINC Pulse 72.0 /min 01/21/2024 14:39 Initial 8867- 4 LOINC Respiration 15 /min 01/21/20 14:39 Initial 9279- 1 LOINC Temperature 36.3 Rose 97.3 F 01/21/20 14:39 Initial 8310- 5 LOINC Weight 117.93 kg 260.00 lbs 01/21/2024 14:39 Initial 46750 -7 LOINC Medications Medication Start Date End Date Route Frequency Dose Code Code System Medication Instructions Home Meds Zithromax 250MG Oral Tablet 07/04/2023 Unknown ORAL DAILY 1 TABLET 711980 RxNorm TAKE 1 T ABLET ORAL DAILY [...] Status Code Code System TMJ DISORDER active 24588700 SNOMED- CT GERD 03/08/2022 resolved 218871691 SNOMED-CT ARTHRITIS 03/08/2022 resolved 4013318 SNOMED-CT ANEMIA 03/08/2022 resolved 820822353 SNOMED-CT DILATATION AND CURETTAGE PLANNED 03/08/2022 resolved 550798919 SNOMED-CT Allergies and Adverse Reactions Allergy Substance Reaction Severity Start Date Concern Status Co de Code System No Known Allergies Active 291221358 SNO MED-CT Plan of Treatment MRI UPPER EXT JOINT W/O CONTRAST 2023 MRI LOWER EXT JOINT W/O CONTRAST 2022 US ABDOMEN LIMITED 1 ORGAN 09/03/2022 MRI TMJ W/O CONTRAST 06/04/2022 US ABDOMEN LIMITED 1 ORGAN 08/26/2021 Encounters Encounter Diagnosis Start Date Code Code Sys tem Sprain of unspecified ligame nt of right ankle, initial encounter 01/21/2024 SNOMED-CT Personal Care Team Section Performer Name Performer Role Active Date Inactive Da romina
--- OUTSIDE RECORDS SUMMARY | 2024-03-14 17:54 | XMS_ITS ---
Author Organization Unknown Address [address] [place] [address] [phone] Phone Care Team Providers Care Chopper Operator Name Role Phone ROOMET ALLAN Attending Unavailable ANABEL ANTONIO Primary Unavailable Social History Type Status Start Date End Date Code Code Syst em Smoking History Never smoker (Never Smoked) 880267644 SNOMED CT Sex Female Medications Medication Start Date End Date Route Frequency Dose Code Code System Medication Instructions Home Meds Zithromax 250MG Oral Tablet 07/04/2023 Unknown ORAL DAILY 1 TABLET 933185 RxNorm TAKE 1 T ABLET ORAL DAILY Assessment You had the following problems:TMJ DISORDER Hospital Discharge Instructions Should you have any questions prior to discharge, please contact a member of your healthcare team. If you have left the hospital and have any questions, please contact your primary care physician. Reason For Referral No Data Found Procedures Procedure Name Date Status Code Code Syste lisy Nerve Conduction Studies 7-8 Studies 01/04/2024 completed 47381 CPT Needle EMG Ea Extremity w/Pa raspinl Area Limited 01/04/2024 completed 50495 CPT Problems Problem Start Date Resolved Date Status Code Code System TMJ DISORDER active 25360335 SNOMED- CT GERD 03/08/2022 resolved 739219791 SNOMED-CT ARTHRITIS 03/08/2022 resolved 2576454 SNOMED-CT ANEMIA 03/08/2022 resolved 046258317 SNOMED-CT DILATATION AND CURETTAGE PLANNED 03/08/2022 resolved 324511239 SNOMED-CT Allergies and Adverse Reactions Allergy Substance Reaction Severity Start Date Concern Status Co de Code System No Known Allergies Active 375652492 SNO MED-CT Plan of Treatment MRI UPPER EXT JOINT W/O CONTRAST 2023 MRI LOWER EXT JOINT W/O CONTRAST 2022 US ABDOMEN LIMITED 1 ORGAN 09/03/2022 MRI TMJ W/O CONTRAST 06/04/2022 US ABDOMEN LIMITED 1 ORGAN 08/26/2021 Encounters Encounter Diagnosis Start Date Code Code Sys tem Carpal tunnel syndrome, bilateral upper limbs 01/04/20 24 SNOMED-CT Personal Care Team Section Performer Name Performer Role Active Date Inactive Da te
--- OUTSIDE RECORDS SUMMARY | 2024-03-14 17:54 | XMS_ITS ---
Author Organization Unknown Address [address] [place] [address] [phone] Phone Care Team Providers Care Sales Advisory Manager Name Role Phone LAMELL MAGDA Alonzo Attending Unavailable PROVOST ALVAREZ Primary Unavailable Results XR WRIST 3V RT* - Completed: 02/02/2024 15:38 LOINC: [facility] [place], [place] [address] RADIOLOGY TOW TRUCK DRIVER REPORT Patient Name: DEVIKA BEJARANO MRN: Sex: : Age: [id number] F 1985 38 Account: Accession: Admit: StayType: [id number] 02/02/2024 O Ordered: Order ID: Submitted: Ordering Provider: 02/02/2024 15:31 [id number] MAGDA BASS Completed: Technologist: Resulted: 02/02/2024 15:34 02/02/2024 17:02 EXAMINATION: XR WRIST 3V RT CLINICAL HISTORY: REASON: WRIST PAIN, RIGHT ADD'L INFO: PA, LAT, CARPAL TUNNEL VIEW TECHNIQUE: 3 views RIGHT wrist COMPARISON: None FINDINGS: Alinement at the carpus is anatomic. Joint spaces preserved. Osseous texture normal. The tunnel view demonstrates no definable calcified or osseous mass within the carpal tunnel. Follow-up with MRI may be helpful in evaluating for soft tissue process within the carpal tunnel if symptoms persist Thank you for letting us participate in the care of this patient. If you are a health care provider and have any questions regarding this report, please contact the number below. For patients who have questions please contact the health health care recruiter that requested your imaging first. Social History Type Status Start Date End Date Code Code Syst em Smoking History Never smoker (Never Smoked) 299520937 SNOMED CT Sex Female Medications Medication Start Date End Date Route Frequency Dose Code Code System Medication Instructions Home Meds Zithromax 250MG Oral Tablet 07/04/2023 Unknown ORAL DAILY 1 TABLET 156297 RxNorm TAKE 1 T ABLET ORAL DAILY [...] Status Code Code System TMJ DISORDER active 22679834 SNOMED- CT GERD 03/08/2022 resolved 023479283 SNOMED-CT ARTHRITIS 03/08/2022 resolved 0295821 SNOMED-CT ANEMIA 03/08/2022 resolved 932677228 SNOMED-CT DILATATION AND CURETTAGE PLANNED 03/08/2022 resolved 801631357 SNOMED-CT Allergies and Adverse Reactions Allergy Substance Reaction Severity Start Date Concern Status Co de Code System No Known Allergies Active 712307334 SNO MED-CT Plan of Treatment MRI UPPER EXT JOINT W/O CONTRAST 2023 MRI LOWER EXT JOINT W/O CONTRAST 2022 US ABDOMEN LIMITED 1 ORGAN 09/03/2022 MRI TMJ W/O CONTRAST 06/04/2022 US ABDOMEN LIMITED 1 ORGAN 08/26/2021 Encounters Encounter Diagnosis Start Date Code Code Sys tem 02/02/2024 [id number] SNOMED-CT Personal Care Team Section Performer Name Performer Role Active Date Inactive Da te
--- OUTSIDE RECORDS SUMMARY | 2024-03-14 17:55 | XMS_ITS ---
Author Organization Unknown Address [address] [place] [address] [phone] Phone Care Team Providers Care Finisher Merchant Products Name Role Phone DOROTHY Santamaria Attending Unavailable Social History Type Status Start Date End Date Code Code Syst em Smoking History Never smoker (Never Smoked) 522124480 SNOMED CT Sex Female Medications Medication Start Date End Date Route Frequency Dose Code Code System Medication Instructions Home Meds Zithromax 250MG Oral Tablet 07/04/2023 Unknown ORAL DAILY 1 TABLET 045633 RxNorm TAKE 1 T ABLET ORAL DAILY [...] Status Code Code System TMJ DISORDER active 90997623 SNOMED- CT GERD 03/08/2022 resolved 059666317 SNOMED-CT ARTHRITIS 03/08/2022 resolved 9926609 SNOMED-CT ANEMIA 03/08/2022 resolved 965175549 SNOMED-CT DILATATION AND CURETTAGE PLANNED 03/08/2022 resolved 514567722 SNOMED-CT Allergies and Adverse Reactions Allergy Substance Reaction Severity Start Date Concern Status Co de Code System No Known Allergies Active 279225440 SNO MED-CT Plan of Treatment MRI UPPER EXT JOINT W/O CONTRAST 2023 MRI LOWER EXT JOINT W/O CONTRAST 2022 US ABDOMEN LIMITED 1 ORGAN 09/03/2022 MRI TMJ W/O CONTRAST 06/04/2022 US ABDOMEN LIMITED 1 ORGAN 08/26/2021 Personal Care Team Section Performer Name Performer Role Active Date Inactive Da te
--- OUTSIDE RECORDS SUMMARY | 2024-03-14 17:55 | XMS_ITS ---
Author Organization Unknown Address [address] [place] [address] [phone] Phone Care Team Providers Care Fire Extinguisher Repairer Inspector Name Role Phone DOROTHY Santamaria Attending Unavailable ANABEL ANTONIO Primary Unavailable Social History Type Status Start Date End Date Code Code Syst em Smoking History Never smoker (Never Smoked) 282032129 SNOMED CT Sex Female Medications Medication Start Date End Date Route Frequency Dose Code Code System Medication Instructions Home Meds Zithromax 250MG Oral Tablet 07/04/2023 Unknown ORAL DAILY 1 TABLET 003536 RxNorm TAKE 1 T ABLET ORAL DAILY [...] Status Code Code System TMJ DISORDER active 82774290 SNOMED- CT GERD 03/08/2022 resolved 441010784 SNOMED-CT ARTHRITIS 03/08/2022 resolved 7022018 SNOMED-CT ANEMIA 03/08/2022 resolved 557634359 SNOMED-CT DILATATION AND CURETTAGE PLANNED 03/08/2022 resolved 893251098 SNOMED-CT Allergies and Adverse Reactions Allergy Substance Reaction Severity Start Date Concern Status Co de Code System No Known Allergies Active 006810172 SNO MED-CT Plan of Treatment MRI UPPER EXT JOINT W/O CONTRAST 2023 MRI LOWER EXT JOINT W/O CONTRAST 2022 US ABDOMEN LIMITED 1 ORGAN 09/03/2022 MRI TMJ W/O CONTRAST 06/04/2022 US ABDOMEN LIMITED 1 ORGAN 08/26/2021 Encounters Encounter Diagnosis Start Date Code Code Sys tem 03/02/2024 [id number] SNOMED-CT Personal Care Team Section Performer Name Performer Role Active Date Inactive Da te
--- OUTSIDE RECORDS SUMMARY | 2024-03-14 17:55 | XMS_ITS ---
Author Organization Unknown Address [address] [place] [address] [phone] Phone Care Team Providers Care Clinical Services Consultant Name Role Phone DOROTHY Santamaria Attending Unavailable ANABEL ANTONIO Primary Unavailable Social History Type Status Start Date End Date Code Code Syst em Smoking History Never smoker (Never Smoked) 894043527 SNOMED CT Sex Female Vital Signs Vital Sign Value Unit Sioux Value Sioux Unit Date/Time Recent/Initial? Code Code System Systolic Blood Pressure 148 mm[Hg] 03/09/2024 13:14 Initial 8480-6 LOINC Diastolic Blood Pressure 95 mm[Hg] 03/09/2024 13:14 Initial 8462-4 [facility] O2 Saturation 97 % 2023 13:14 Initial 13918- 5 LOINC Pulse 86.0 /min 03/09/2024 13:14 Initial 8867-4 LOINC Respiration 15 /min 03/09/20 24 13:14 Initial 9279-1 LOINC Temperature 36.0 Rose 96.8 F 03/09/20 24 13:14 Initial 8310-5 [facility] Medications Medication Start Date End Date Route Frequency Dose Code Code System Medication Instructions Home Meds Zithromax 250MG Oral Tablet 07/04/2023 Unknown ORAL DAILY 1 TABLET 513601 RxNorm TAKE 1 T ABLET ORAL DAILY [...] Status Code Code System TMJ DISORDER active 03449779 SNOMED- CT GERD 03/08/2022 resolved 973315484 SNOMED-CT ARTHRITIS 03/08/2022 resolved 4456751 SNOMED-CT ANEMIA 03/08/2022 resolved 139002988 SNOMED-CT DILATATION AND CURETTAGE PLANNED 03/08/2022 resolved 209757224 SNOMED-CT Allergies and Adverse Reactions Allergy Substance Reaction Severity Start Date Concern Status Co de Code System No Known Allergies Active 355764873 SNO MED-CT Plan of Treatment MRI UPPER EXT JOINT W/O CONTRAST 2023 MRI LOWER EXT JOINT W/O CONTRAST 2022 US ABDOMEN LIMITED 1 ORGAN 09/03/2022 MRI TMJ W/O CONTRAST 06/04/2022 US ABDOMEN LIMITED 1 ORGAN 08/26/2021 Personal Care Team Section Performer Name Performer Role Active Date Inactive Da te
--- OUTSIDE RECORDS SUMMARY | 2024-03-14 17:55 | XMS_ITS ---
Author Organization Unknown Address [address] [place] [address] [phone] Phone Care Team Providers Care Women'S Health Care Nurse Practitioner Name Role Phone DOROTHY Santamaria Attending Unavailable ANABEL ANTONIO Primary Unavailable Results MR UPPER EXT ANY JOINT RT WO CONTRAST - Completed: 03/01/2024 15:45 LOINC: [No content] Social History Type Status Start Date End Date Code Code Syst em Smoking History Never smoker (Never Smoked) 649706728 SNOMED CT Sex Female Medications Medication Start Date End Date Route Frequency Dose Code Code System Medication Instructions Home Meds Zithromax 250MG Oral Tablet 07/04/2023 Unknown ORAL DAILY 1 TABLET 281296 RxNorm TAKE 1 T ABLET ORAL DAILY [...] Status Code Code System TMJ DISORDER active 95746643 SNOMED- CT GERD 03/08/2022 resolved 559565093 SNOMED-CT ARTHRITIS 03/08/2022 resolved 2737417 SNOMED-CT ANEMIA 03/08/2022 resolved 904125651 SNOMED-CT DILATATION AND CURETTAGE PLANNED 03/08/2022 resolved 702860952 SNOMED-CT Allergies and Adverse Reactions Allergy Substance Reaction Severity Start Date Concern Status Co de Code System No Known Allergies Active 562328906 SNO MED-CT Plan of Treatment MRI UPPER EXT JOINT W/O CONTRAST 2023 MRI LOWER EXT JOINT W/O CONTRAST 2022 US ABDOMEN LIMITED 1 ORGAN 09/03/2022 MRI TMJ W/O CONTRAST 06/04/2022 US ABDOMEN LIMITED 1 ORGAN 08/26/2021 Encounters Encounter Diagnosis Start Date Code Code Sys tem 03/01/2024 513151301251497 SNOMED-CT Personal Care Team Section Performer Name Performer Role Active Date Inactive Da te
--- OUTSIDE RECORDS SUMMARY | 2024-03-14 17:56 | XMS_ITS | Referral Summary ---
Author Organization [facility] Address [address] [place] [address] Care Team Providers Care Food Broker Name Role Phone Corine Coulter Primary Care Provider [phone] Encounters Date Type Department Care Team Description 03/08/2024 Telephone [facility] [place] [address] [place] [address] [phone] Katt Stringer RN Follow-up; Medications Refill 03/07/2024 Specialty Pharmacy [facility] [address] [place] [phone] Van Phelps Herman Refill Coordination Outreach for Rheumatology 02/10/2024 Specialty Pharmacy [facility] [address] [place] [phone] Van Phelps RPH Refill Coordination Outreach for Rheumatology 01/13/2024 Specialty Pharmacy [facility] [address] [place] [phone] Van Phelps RP Refill Coordination Outreach for Rheumatology from Last 3 Months Allergies No known active allergies Medications Medication Sig Dispensed Refills Start Date End Date Status fluticasone propionate (FLONASE) 50 mcg/actuation nasal sprayIndications: Recurrent acute serous otitis media of both ears Instill 1 Geddes into both nostrils daily. 1 Bottle 2 05/15/2019 Active omeprazole (PRILOSEC) 40 mg capsule Take 1 Capsule by mouth daily. Active loratadine (CLARITIN) 10 mg tablet Take 1 Tablet by mouth daily. Active aspirin-acetamino phen-caffeine (EXCEDRIN MIGRAINE) 250-250-65 mg per tablet Take 1 Tablet by mouth every 12 hours as needed for Headaches. Active Sodium Fluoride 1.1 % gel 07/10/2022 Active ferrous sulfate 325 mg (65 mg iron) tablet Take 1 Tablet by mouth every 48 hours. Active ondansetron (ZOFRAN) 4 mg tabletIndications :Nausea Take 1 Tablet by mouth every 12 hours as needed for Nausea. 8 Tablet 07/13/2023 Active fluconazole (DIFLUCAN) 150 mg tabletIndications :Vaginal yeast infection 1 tablet for vaginal yeast infection may repeat x 1 for recurrence after 72 hours 2 Tablet 1 07/23/2023 Active gabapentin (NEURONTIN) 300 mg capsuleIndication s:Jaw pain Take 1 Capsule by mouth 2 times daily. 180 Capsule 1 07/27/2023 Active adalimumab (HUMIRA,CF, PEN) 40 mg/0.4 mL penIndications:Se ronegative rheumatoid arthritis ([facility]) Inject 0.4 mL into the skin every 7 days. 12 Each 1 12/09/2023 Active hydroxychloroquin e (PLAQUENIL) 200 mg tabletIndications :Ankylosing spondylitis of sacral region ([facility]) Take 1 Tablet by mouth 2 times daily. 180 Tablet 3 03/08/2024 Active hydrOXYchloroQUIN E (PLAQUENIL) 200 mg tabletIndications :Ankylosing spondylitis of sacral region ([facility]) Take 1 Tablet by mouth 2 times daily. 180 Tablet 3 02/02/2023 4 Discontinue d(Reorder) Active Problems Patient Care Coordination No te Formatting of this note migh t be different from the original. 7-20 Anjel Ojeda, (PERM TO SPEAK). BRENDAN Had hydroxychloroquine eye exam 10/2023. 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 Stopped 03/22 Seen Naturopathic clinic rx for Lyme. High risk medication use 07/07/2019 Lyme disease 07/07/2019 Overview: Treatment with naturopathy Antibiotics. Supplements and tinctures. Therapy from 02/19 to 06/22 Dr Wyatt at [facility]. 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[facility]) 01/04/2020 10/17/2021 Immunizations Name Administration Dates Next Due Influenza Vaccine =>3yo Split IM 03/14/2018,03/06,04/16/2016 Influenza Vaccine Quad PF 0. 5 ml IM (6 mos+) 04/13/2019 Pneumococcal Polysaccharide (PPSV23) Vaccine (PNEUMOVAX-23) =>2YO SQ/IM 03/29/2017 Tdap Vaccine =>7YO IM 02/25/2016 Social History Tobacco Use Types Packs/Day Years Used Date Smoking Tobacco: Never Smokeless Tobacco: Never Tobacco Cessation:Counseling Given: Not Answered Alcohol Use Standard Drinks/Week Comments Not Currently 0 (1 standard drink = 0.6 oz pur e alcohol) Humiliation, Afraid, Rape, and Kick questionnair e Answer Date Recorded Within the last year, have y ou been afraid of your partner or ex-partner? No 02/14/2020 Within the last year, have y ou been humiliated or emotionally abused in other ways by your partner or ex-partner? No Within the last year, have y ou been kicked, hit, slapped, or otherwise physically hurt by your partner or ex-partner? No 02/14/2020 Within the last year, have y ou been raped or forced to have any kind of sexual activity by your partner or ex-partner? No 02/14/2020 Interpersonal Safety Answer Date Record ed Physically Hurt Never 02/04/2020 Verbally Threaten Not on file 02/04/2020 Sex and Gender Information Value Date Recorded Sex Assigned at Not on file Gender Identity Female 07/04/2019 11:12 EST Sexual Orientation Not on file Last Filed Vital Signs Vital Sign Reading Time Taken Comments Blood Pressure 140/98 04/29/2022 1612 EDT Pulse 68 04/29/2022 1612 EDT Temperature 36.2 ??C (97.2 ??F) 04/29/2022 1 612 EDT Respiratory Rate 16 02/06/2021 1254 EDT Oxygen Saturation 96% 01/21/2020 130 8 EDT Inhaled Oxygen Concentration - - Weight 117.9 kg (260 lb) 07/23/2023 091 4 EST reported weight from home Height 170.2 cm (5' 7) 01/20/2023 0846 EDT Body Mass Index 40.72 01/20/2023 0846 EDT Functional Status Functional Status Response Date of Assess ment Because of a physical, menta l, or emotional condition, does this person have difficulty doing errands alone such as visiting a doctor's office or shopping? No 07/07/2019 Cognitive Status Response Date of Assessm ent Because of a physical, menta l, or emotional condition, does this person have serious difficulty concentrating, remembering, or making decisions? No 07/07/2019 Plan of Treatment Upcoming Encounters Date Type Department Care Team (Late st Contact Info) Description 03/23/2024 11:15 EDT Telemedicine [facility] Rheumatology [address] [place] [address] Venecia Vega MD [address] [facility] [address] [place] [phone] Procedures Procedure Name Priority Date/Time Associated Diagnosis Comments HEPATITIS C AB W REFLEX TO HCV RNA BY PCR Routine 09/09/2022 14:00 EST MA BREAST DIAGNOSTIC FLAVIA BILATERAL 10/14/2018 9:08 EDT HPV DNA DETECTION WITH GENOTYPING, PCR Routine 10/04/2018 9:49 EDT PAP TEST Routine 10/04/2018 from Last 3 Months or Most Recently Relevant to Health Maintenance Results * HEPATITIS C AB W REFLEX TO HCV RNA BY PCR (09/09/2022 14:00 EST) Hep C Antibody Negative Negative 09/11/2022 10:27 EST [facility] Blood VENOUS BLOOD / Unknown 09/09/2022 14:00 EST 09/10/2022 17:13 EST Provider Outr Resulting Lab CHEMISTRY & BLOOD GAS ORDERABLES Performing Organization Address City/State/RUST Co de Phone Number [facility] [address] [place] [address] * MA BREAST DIAGNOSTIC FLAVIA BILATERAL (10/14/2018 9:08 EDT) Anatomical Region Laterality Modality Breast Bilateral Other 10/14/2018 9:08 EDT Narrative 10/14/2018 9:08 EDT ? EXAM: MAMMOGRAM/MAMMO BILATERAL DX W FLAVIA EX. D/ (0831) ? CLINICAL INFORMATION: ? N64.4 (R) BREAST PAIN ? (L) BREAST SCREENING ? INDICATION: N64.4 (R) BREAST PAIN LLQ PAIN, RIGHT BREAST PAIN, LEFT ? SCREENING ? COMPARISON: None. Baseline study. ? TECHNIQUE: Full field digital whole breast 2D (C-view) and 3D CC and ? MLO views of both breasts were obtained. 3-D whole breast ML view of ? the right breast was also obtained. CAD technology was utilized. ? FINDINGS: ? LEFT BREAST: There are scattered areas of fibroglandular density. No ? dominant mass or suspicious microcalcification is seen. ? RIGHT BREAST: There are scattered areas of fibroglandular density. No ? dominant mass or suspicious microcalcification is seen. ? RIGHT BREAST ULTRASOUND: Sonographic examination of the upper outer ? quadrant of the right breast from 9-11 o'clock was performed. This ? includes the area of patient's pain at 10:00, 12 cm out from the ? nipple. ? Normal-appearing fibroglandular and fatty tissue is present at the ? site of patient's symptoms. No solid mass, cyst or abnormal shadowing ? is identified. ? FINAL ASSESSMENT: ??DIAGNOSTIC RIGHT BREAST MAMMOGRAM/ULTRASOUND - ? BI-RADS Category 1 - Negative. ? FINAL ASSESSMENT: ??SCREENING LEFT BREAST MAMMOGRAM - BI-RADS Category ? 1 - Negative. ? The findings were communicated to the patient by the wealth management advisor ? shortly following the examination . ? These results will be communicated to your patient via a lay letter ? from Radiology. ??If any additional imaging is needed we will contact ? your patient directly. ? REPORT SIGNED IN OTHER VENDOR SYSTEM 10/14/2018 ?Reported By: Luis Antonio Griffin MD ? CC: ? Transcribed Date/Time: 10/14/2018 (0908) ? Headend Technician: ? Printed Date/Time: 12/25/2018 (210) ? PAGE 1 ? Signed Report ? Procedure Note Luis Antonio Griffin MD - 05/11/2019 EXAM: MAMMOGRAM/MAMMO BILATERAL DX W FLAVIA EX. D/ (0831) CLINICAL INFORMATION: N64.4 (R) BREAST PAIN (L) BREAST SCREENING INDICATION: N64.4 (R) BREAST PAIN LLQ PAIN, RIGHT BREAST PAIN, LEFT SCREENING COMPARISON: None. Baseline study. TECHNIQUE: Full field digital whole breast 2D (C-view) and 3D CCand MLO views of both breasts were obtained. 3-D whole breast ML viewof the right breast was also obtained. CAD technology was utilized. FINDINGS: LEFT BREAST: There are scattered areas of fibroglandular density.No dominant mass or suspicious microcalcification is seen. RIGHT BREAST: There are scattered areas of fibroglandular density.No dominant mass or suspicious microcalcification is seen. RIGHT BREAST ULTRASOUND: Sonographic examination of the upper outer quadrant of the right breast from 9-11 o'clock was performed. This includes the area of patient's pain at 10:00, 12 cm out from the nipple. Normal-appearing fibroglandular and fatty tissue is present at the site of patient's symptoms. No solid mass, cyst or abnormalshadowing is identified. FINAL ASSESSMENT: DIAGNOSTIC RIGHT BREAST MAMMOGRAM/ULTRASOUND - BI-RADS Category 1 - Negative. FINAL ASSESSMENT: SCREENING LEFT BREAST MAMMOGRAM - BI-RADSCategory 1 - Negative. The findings were communicated to the patient by theultrasonographer shortly following the examination . These results will be communicated to your patient via a lay letter from Radiology. If any additional imaging is needed we willcontact your patient directly. REPORT SIGNED IN OTHER VENDOR SYSTEM 10/14/2018 Reported By: Luis Antonio Griffin MD CC: Transcribed Date/Time: 10/14/2018 (0908) Headend Technician: Printed Date/Time: 12/25/2018 (2738) PAGE 1 Signed Report Mary Braswell MD [facility] MAMMOGRAPHY [facility] * HUMAN PAPILLOMAVIRUS (HPV) DETECTION-HIGH RISK TYPES (10/04/2018 9:49 EDT) HPV other High Risk types, PCR NEG 10/07/2018 15:20 EDT [facility] Comment: Negative for HPV types 16, 18, 31, 33, 35, 39, 45, 51, 52, 56, 58, 59, 66, 68. Method: Cervista HPV HR (High Risk) DNA test. 10/04/2018 9:49 EDT 10/05/2018 9:49 EDT Mary Braswell MD MICROBIOLOGY - GENER AL ORDERABLES Performing Organization Address [facility]/State/ZIP Co de Phone Number [facility] * PAP TEST (10/04/2018) 10/04/2018 10/05/2018 9:4 9 EDT Narrative [facility] - 10/10/2018 8:13 EDT ----- ------- Name: ARABELLA OJEDA ? : [birth year] ?Age/Sex: 33/F ?Unit#: [id number] ? Loc: AGO ? Status: REG POV ?? Reg Date: 10/04/18 ? Pt.Phone Number: ? ----- ------- Specimen: [id number] ?STATUS: SOUT ?Spec Date:10/04/18 ? Physician Copies: ?Mary Braswell MD ? Tissues: ? Cervical/Endo Pap ?Serafin Saucedo MD CPT: 88035 ?? Units: ??1 ----- ------- ? CYTOLOGY DIAGNOSIS SPECIMEN ADEQUACY: ?Satisfactory for evaluation. Transformation zone component present. GENERAL CATEGORIZATION: ?Negative for Intraepithelial Lesion or Malignancy DESCRIPTIVE DIAGNOSIS: ? Negative for Intraepithelial Lesion or Malignancy. ----- ------- ?HPV DNA RESULTS ? LABORATORY ?? Date ? Time Test ?Result ?? Flag ?Normal Range ?? 10/04/18 0949 HPV DNA RESULT ??NEG ? Negative for HPV types 16, 18, 31, 33, 35, 39, 45, 51, 52, ? 56, 58, 59, 66, 68. ? Method: Cervista HPV HR (High Risk) DNA test. ----- ------- ORDER QUERIES: LMP: 09/11/18- ? N Post ? N ??PREVIOUS ATYPICAL: N BCP/HRT? N Rad Rx? N IUD? N ??PAP PLUS HPV? Y ??REFLEX TO HR-HPV IF ASCUS Y REFLEX TO HPV 16/18 IF HPV POS/PAP NEG Y HPV REGARDLESS? Y ??RFLX HPV IF LSIL ?? Signed Itz Goldman CT(ASCP) 10/10/18 By the signature above, the attending physician certifies that he/she has personally conducted a gross and/or microscopic examination of the described specimens and rendered or confirmed the above diagnosis. Test Performed by [facility], [address] [place] [address] Sales Performance Analyst: Rhona Brown MD PHD ----- ------- Mary Braswell MD PATHOLOGY ORDERABLES [facility] from Last 3 Months or Most Recently Relevant to Health Maintenance Advance Directives For more information, please contact: [phone] Documents on File Type Date Recorded Patient Supervisor Heading Expl anation Advance Directive 01/17/2020 14:32 09-21-17 Advance Directive Advance Directive 10/30/2021 13:08 09-01-21 Advance Directive Care Teams Food Broker Relationship Specialty Start Date End Date Corine Coulter [address] [place] [phone] PCP - General Family Medicine - Primary Care 03/08/24
--- OUTSIDE RECORDS SUMMARY | 2024-03-14 17:56 | XMS_ITS | Clinical Summary ---
Author Organization [facility] Address [address] [place] [address] Care Team Providers Care Business Quality Assurance Analyst Name Role Phone Corine Coulter Primary Care Provider [phone] Allergies No known active allergies Medications Medication Sig Dispensed Refills Start Date End Date Status fluticasone propionate (FLONASE) 50 mcg/actuation nasal sprayIndications: Recurrent acute serous otitis media of both ears Instill 1 Hammond into both nostrils daily. 1 Bottle 2 [...] 40 mg/0.4 mL penIndications:Se ronegative rheumatoid arthritis (HCC-CMS) Inject 0.4 mL into the skin every 7 days. 12 Each 1 12/09/2023 Active hydroxychloroquin e (PLAQUENIL) 200 mg tabletIndications :Ankylosing spondylitis of sacral region (HCC-CMS) Take 1 Tablet by mouth 2 times daily. 180 Tablet 3 03/08/2024 Active hydrOXYchloroQUIN E (PLAQUENIL) 200 mg tabletIndications :Ankylosing spondylitis of sacral region (HCC-CMS) Take 1 Tablet by mouth 2 times daily. 180 Tablet 3 02/02/2023 4 Discontinue d(Reorder) Active Problems Patient Care Coordination No te Formatting of this note migh t be different from the original. 01-04-20 Anjel Ojeda, (PERM TO SPEAK). BRENDAN Had hydroxychloroquine eye exam 10/2023. 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 Stopped 03/22 Seen Naturopathic clinic rx for Lyme. High risk medication use 07/07/2019 Lyme disease 07/07/2019 Overview: Treatment with naturopathy Antibiotics. Supplements and tinctures. Therapy from 02/19 to 06/22 Dr Wyatt at [facility]. 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[facility]) 01/04/2020 10/17/2021 Encounters Date Type Department Care Team Description 03/08/2024 Telephone [facility] Rheumatology [address] [place] [address] Katt Stringer RN Follow-up; Medications Refill 03/07/2024 Specialty Pharmacy [facility] [address] [place] [address] Van Phelps RP Refill Coordination Outreach for Rheumatology 02/10/2024 Specialty Pharmacy [facility] [address] [place] [address] Van Phelps RP Refill Coordination Outreach for Rheumatology 01/13/2024 Specialty Pharmacy [facility] [address] [place] [address] Van Phelps [facility] Refill Coordination Outreach for Rheumatology from Last 3 Months Immunizations Name Administration Dates Next Due Influenza Vaccine =>3yo Split IM 03/14/2018,03/06,04/16/2016 Influenza Vaccine Quad PF 0. 5 ml IM (6 mos+) 04/13/2019 Pneumococcal Polysaccharide (PPSV23) Vaccine (PNEUMOVAX-23) =>2YO SQ/IM 03/29/2017 Tdap Vaccine =>7YO IM 02/25/2016 Surgical History Surgery Date Site/Laterality Comments WRIST SURGERY 07/05/2001 - 07/04/2002 Left (De Quervain) WRIST SURGERY 03/05/2007 - 04/03/2007 Left (ganglion cyst) TUBAL LIGATION 07/05/2016 - 08/04/2016 Bilateral WRIST SURGERY 07/05/2008 - 07/04/2009 Left (cyst) DILATION AND CURETTAGE OF UTERUS 03/05/2005 - 04/03/[address] [facility] Medical History Medical History Date Comments Otitis media, recurrent, bilateral Obesity (BMI 30-39.9) Lyme disease 07/07/2019 Treatment with n aturopathy Antibiotics. Supplements and tinctures. Therapy from 02/19 to 06/22 Dr Wyatt at [facility]. Seronegative spondyloarthropathy 07/07/2019 Seronegative spondyloarthropathy 07/07/2019 Family History Medical History Relation Comments Thyroid Disease Maternal Grandmother Cancer Mother Cancer Paternal Grandfather Inflammatory Bowel Disease Sister Relation Status Comments Maternal Grandmother Mother Paternal Grandfather Sister Social History Tobacco Use Types Packs/Day Years [...] 11:12 EST Sexual Orientation Not on file Obstetrics History Para Term AB IAB SAB Ectopic Multiple Livin g Live Births 6 2 2 4 4 Date Outcome GA Total Labor Labor/2nd/3rd Weight Sex Type Anes PTL Joann A1 A5 Name Clin 2004 SAB 2005 M Vag-S pont Living 2008 M Vag-S pont Living 2012 M Vag-S pont Living 2015 M Vag-S pont Living Last Filed Vital Signs Vital Sign Reading [...] Body Mass Index 40.72 01/20/2023 0846 EDT Plan of Treatment Upcoming Encounters Date Type Department Care Team (Late st Contact Info) Description 03/23/2024 11:15 EDT Telemedicine [facility] Rheumatology [address] [place] [address] Venecia Vega MD [address] [place] [address] [place] [phone] Health Maintenance Due Date Last Done Comments Social Determinants Of Health (SDOH) 1983 COVID-19 Vaccine (#1) 1988 Depression Screening 1995 HIV Screening 1999 Hepatitis B Vaccine (1 of 3 - 19+ 3-dose series) 2002 Pap Smear (Cervical Cancer Screening) 10/04/2021 10/04/2018, 10/21/2015, 02/17/2013, Additional history exists Preventive Care Visit 02/06/2023 02/06/2021 Breast Cancer Screening 2023 10/14/2018 Cervical Cancer Screening 10/05/2023 HPV/Cotest (Cervical Cancer Screening) 10/05/2023 10/04/2018 Influenza Immunization (Adult) (#1) 2024 04/13/2019, 03/14/2018, 03/25/2017, Additional history exists Tetanus (Adult) Immunization 02/24/2026 02/25/2016 Pertussis (Adult) Immunization Completed 02/25/2016 Hepatitis C Screen Completed 09/09/2022, 09/17/2016 HPV Vaccines Aged Out No longer eligi ble based on patient's age to complete this topic Procedures Procedure Name Priority Date/Time Associated Diagnosis [...] C Antibody Negative Negative 09/11/2022 10:27 EST [facility] Blood VENOUS BLOOD / Unknown 09/09/2022 14:00 EST 09/10/2022 17:13 EST Provider Outr Resulting Lab CHEMISTRY & BLOOD GAS ORDERABLES [facility] [address] [place] [address] * MA BREAST DIAGNOSTIC FLAVIA BILATERAL (10/14/2018 [...] were communicated to the patient by the crown perforator operator ? shortly following the examination . ? These results will be communicated to your patient via a lay letter ? from Radiology. ??If any additional imaging is needed we will contact ? your patient directly. ? REPORT SIGNED IN OTHER VENDOR SYSTEM 10/14/2018 ?Reported By: Luis Antonio Griffin MD ? CC: ? Transcribed Date/Time: 10/14/2018 (0908) ? Oriental Rug Stretcher: ? Printed Date/Time: 12/25/2018 (2101) ? PAGE 1 ? Signed Report ? [...] Griffin MD CC: Transcribed Date/Time: 10/14/2018 (0908) Oriental Rug Stretcher: Printed Date/Time: 12/25/2018 (2107) PAGE 1 Signed Report Mary Braswell MD [facility] ENRIQUE OLSON * HUMAN PAPILLOMAVIRUS (HPV) DETECTION-HIGH RISK TYPES (10/04/2018 9:49 EDT) HPV other High Risk types, PCR NEG 10/07/2018 15:20 EDT [facility] Comment: Negative for HPV types 16, 18, 31, 33, 35, 39, 45, 51, 52, 56, 58, 59, 66, 68. Method: Cervista HPV HR (High Risk) DNA test. 10/04/2018 9:49 EDT 10/05/2018 9:49 EDT Mary Braswell MD MICROBIOLOGY - GENER AL ORDERABLES [facility] * PAP TEST (10/04/2018) 10/04/2018 10/05/2018 9:4 9 EDT Narrative [facility] - 10/10/2018 8:13 EDT ----- ------- Name: ARABELLA OJEDA ? : 81 ?Age/Sex: 33/F ?Unit#: [id number] ? Loc: AGO ? Status: REG POV ?? Reg Date: 10/04/18 ? Pt.Phone Number: ? ----- ------- Specimen: [id number] ?STATUS: SOUT ?Spec Date:10/04/18 ? Physician Copies: ?Mary Braswell MD ? Tissues: ? Cervical/Endo Pap ?Serafin Saucedo MD CPT: 16221 ?? Units: ??1 ----- ------- ? CYTOLOGY [...] confirmed the above diagnosis. Test Performed by [facility], [address] [place] [address] Orange Picking Supervisor: Rhona Brown MD PHD ----- ------- Mary Braswell MD PATHOLOGY ORDERABLES [facility] from Last 3 Months or Most Recently Relevant to Health Maintenance Advance Directives For more information, please contact: [phone] Documents on File Type Date Recorded Patient Home Care Giver Expl anation Advance Directive 01/17/2020 14:32 09-21-17 Advance Directive Advance Directive 10/30/2021 13:08 09-01-21 Advance Directive Care Teams Business Quality Assurance Analyst Relationship Specialty Start Date End Date Corine Coulter [address] [phone] PCP - General Family Medicine - Primary Care 03/08/24
--- OUTSIDE RECORDS SUMMARY | 2024-03-14 17:56 | XMS_ITS | Encounter Summary ---
Author Organization [facility] Address [address] [place] [address] Care Team Providers Care Vice President Compliance Name Role Phone PaulRebeca George AGUILERA Primary Care Provider Encounter Details Date Type Department Care Team (Late st Contact Info) Description 04/23/2023 Specialty Pharmacy [facility] [address] [place] [address] Van Phelps, [facility] Social History Tobacco Use Types Packs/Day Years Used Date Smoking Tobacco: Never Smokeless Tobacco: Never Alcohol Use Standard Drinks/Week Comments Not Currently [...] 11:12 EST Sexual Orientation Not on file documented as of this encounter Functional Status Functional Status Response Date of [...] concentrating, remembering, or making decisions? No 07/07/2019 documented as of this encounter Plan of Treatment Upcoming Encounters Date Type Department Care Team (Late st Contact Info) Description 03/23/2024 11:15 EDT Telemedicine [facility] Rheumatology [address] [place] [address] Venecia Vega MD [address] [facility] [address] [place] [address] documented as of this encounter Visit Diagnoses Not on filedocumented in this encounter Care Teams Vice President Compliance Relationship Specialty Start Date End Date Rebeca Miller APRN [address] [place] [phone] PCP - General Family Medicine - Primary Care 11/21/21 03/07/24 documented as of this encounter
--- OUTSIDE RECORDS SUMMARY | 2024-03-14 17:56 | XMS_ITS | Encounter Summary ---
Author Organization [facility] Address [address] [place] [address] Care Team Providers Care Information Coder Name Role Phone Paul Rebeca George AGUILERA Primary Care Provider Reason for Visit * Reason Onset Date Comments Medications Refill 07/26/2023 Encounter Details Date Type Department Care Team (Late st Contact Info) Description 07/26/2023 Refill [facility] Rhe[place]ology [address] [place], [place] [id number] Venecia Vega MD [address] [facility] [address] [place] [address] Medications Refill Social History Tobacco Use Types Packs/Day Years [...] No 07/07/2019 documented as of this encounter Ordered Prescriptions Prescription Sig Dispensed Refills Start Date End Da te gabapentin (NEURONTIN) 300 mg capsuleIndications:Jaw pain Take 1 Capsule by mouth 2 times daily. 180 Capsule 1 07/27/2023 documented in this encounter Miscellaneous Notes * Telephone Encounter - Emiliano Luna RN - 07/27/2023 0837 EST Medication(s) Requested: Gabapentin Preferred Pharmacy: [facility] Are visits in compliance? No, Needs to schedule f/u per notes of 07/23/2023 patient to RTC 3 months (10/27/2023) Last Refill Date: 02/03/2023 #180 with 1 refill Recent Visits Date Type Provider Dept 04/29/22 Office Visit Venecia Vega MD [facility] Rheumatology Showing recent visits within past 540 days with a meds authorizing provider and meeting all other requirements Future Appointments No visits were found meeting these conditions. Showing future appointments within next 150 days with a meds authorizing provider and meeting all other requirements EMILIANO LUNA RN 07/27/2023 8:37 documented in this encounter Plan of Treatment Upcoming Encounters Date Type Department Care Team (Late st Contact Info) Description 03/23/2024 11:15 EDT Telemedicine [facility] Rheumatology [address] [place] [address] Venecia Vega MD [address] [facility] [address] [place] [address] documented as of this encounter Visit Diagnoses Diagnosis Jaw pain- Primary documented in this encounter Discontinued Medications Medication Sig Discontinue Reason Start Date End Da te gabapentin (NEURONTIN) 300 mg capsuleIndications:Jaw pain Take 1 Capsule by mouth 2 times daily. Reorder 02/03/2023 07/26/2023 documented as of this encounter Care Teams Information Coder Relationship Specialty Start Date End Date Rebeca Miller APRN [address] [place] [phone] PCP - General Family Medicine - Primary Care 11/21/21 03/07/24 documented as of this encounter
--- OUTSIDE RECORDS SUMMARY | 2024-03-14 17:56 | XMS_ITS | Encounter Summary ---
Author Organization [facility] Address [address] [place] [address] Care Team Providers Care Health Safety Instructor Name Role Phone PaulRebeca George AGUILERA Primary Care Provider Encounter Details Date Type Department Care Team (Late st Contact Info) Description 02/26/2023 Specialty Pharmacy [facility] - [facility] [address] [place], [place] [id number] Van Phelps, [facility] Social History Tobacco Use Types Packs/Day Years [...] Contact Info) Description 03/23/2024 11:15 EDT Telemedicine [facility] Rheumatology [address] [place] [address] Venecia Vega MD [address] [facility] [address] [place] [address] documented as of this encounter Visit Diagnoses Not on filedocumented in this encounter Care Teams Health Safety Instructor Relationship Specialty Start Date End Date Rebeca Miller APRN [address] [place] [phone] PCP - General Family Medicine - Primary Care 11/21/21 03/07/24 documented as of this encounter
--- OUTSIDE RECORDS SUMMARY | 2024-03-14 17:56 | XMS_ITS | Encounter Summary ---
Author Organization [facility] Address [address] [place] [address] Care Team Providers Care Manager Cardiovascular Name Role Phone PaulRebeca juan George AGUILERA Primary Care Provider Encounter Details Date Type Department Care Team (Latest Contact Info) Description 06/17/[address] [facility] [address] [place], [place] [phone] Van Phelps [facility] Refill Coordination Outreach for Rheumatology Social History Tobacco Use Types Packs/Day Years [...] Contact Info) Description 03/23/2024 11:15 EDT Telemedicine [facility] Rheumatology [address] [place], [place] [address] Venecia Vega MD [address] [facility] [address] [place] [address] documented as of this encounter Visit Diagnoses Not on filedocumented in this encounter Care Teams Manager Cardiovascular Relationship Specialty Start Date End Date Rebeca Miller APRN [address] [place] [phone] PCP - General Family Medicine - Primary Care 11/21/21 03/07/24 documented as of this encounter
--- OUTSIDE RECORDS SUMMARY | 2024-03-14 17:56 | XMS_ITS | Encounter Summary ---
Author Organization [facility] Address [address] [place] [address] Care Team Providers Care Farm Crew Member Name Role Phone PaulRebeca juan George AGUILERA Primary Care Provider [phone] Encounter Details Date Type Department Care Team (Latest Contact Info) Description 02/10/2024 Specialty Pharmacy [facility] [address] [place], [place] [address] Van Phelps [facility] Refill Coordination Outreach for Rheumatology Social History [...] Contact Info) Description 03/23/2024 11:15 EDT Telemedicine [facility] Rheumatology [address] [place], [place] [address] Venecia Vega MD [address] [facility] [address] [place] [address] documented as of this encounter Visit Diagnoses Not on filedocumented in this encounter Care Teams Farm Crew Member Relationship Specialty Start Date End Date Rebeca Miller APRN [address] [place] [phone] PCP - General Family Medicine - Primary Care 11/21/21 03/07/24 documented as of this encounter
--- OUTSIDE RECORDS SUMMARY | 2024-03-14 17:56 | XMS_ITS | Encounter Summary ---
Author Organization [facility] Address [address] [place] [address] Care Team Providers Care Client Finance Analyst Name Role Phone PaulRebeca George AGUILERA Primary Care Provider Encounter Details Date Type Department Care Team (Latest Contact Info) Description 05/21/2023 Specialty Pharmacy [facility] [address] [place], [place] [address] Van Phelps [facility] Refill Coordination Outreach (1 time occurrence) for Rheumatology Social History Tobacco Use Types [...] Contact Info) Description 03/23/2024 11:15 EDT Telemedicine [facility] Rheumatology [address] [place] [address] Venecia Vega MD [address] [facility] [address] [place] [address] documented as of this encounter Visit Diagnoses Not on filedocumented in this encounter Care Teams Client Finance Analyst Relationship Specialty Start Date End Date Rebeca Miller APRN [address] [place] [phone] PCP - General Family Medicine - Primary Care 11/21/21 03/07/24 documented as of this encounter
--- OUTSIDE RECORDS SUMMARY | 2024-03-14 17:56 | XMS_ITS | Encounter Summary ---
Author Organization [facility] Address [address] [place] [address] Care Team Providers Care Market President Name Role Phone PaulRebeca juan George AGUILERA Primary Care Provider Encounter Details Date Type Department Care Team (Latest Contact Info) Description 03/07/[address] [facility] [address] [place], [place] [address] Van Phelps [facility] Refill Coordination Outreach for Rheumatology Social [...] Contact Info) Description 03/23/2024 11:15 EDT Telemedicine [facility] Rheumatology [address] [place], [place] [phone] Venecia Vega MD [address] [facility] [address] [place] [address] documented as of this encounter Visit Diagnoses Not on filedocumented in this encounter Care Teams Market President Relationship Specialty Start Date End Date Rebeca Miller APRN [address] [place] [phone] PCP - General Family Medicine - Primary Care 11/21/21 03/07/24 documented as of this encounter
--- OUTSIDE RECORDS SUMMARY | 2024-03-14 17:56 | XMS_ITS | Data Portability ---
Author Organization [place] - [facility], Historical Import Interface Address [address] [place] [address] Care Team Providers Care Television Station Manager Name Role Phone ANTONIO LITTLE Primary Care Provider Assessment Encounter Date Assessment Date Assessment LastModified by Organization Details LastModified Time 09/22/2022 09/22/2022 09/22/2022 Tx: Comp Flg #2-MO NHV: 6MR Apro, NICOLE, ORAL AND MAXILLOFACIAL SURGERY, FL? - BW #30 -D eval Completed Procedures D2392 - Resin-based composite - two surfaces, posterior Teeth: 2 (MO)?? CC: Pt presents for planned restorative appt?? HHx review: No changes reported and no contraindication to today's tx?Dhx: Pt is seeing Dr. Luna for appliance therapy - wearing lower TMJ splint Dx: #2 smooth surface caries to dentin ?? Anesthesia:?? 20% Benzocaine topical anesthesia?? 1 carp 4% Articaine w/1:200k epi via local infiltration ? Procedure: ?? Prep and removed primary caries Dry angle, Bite block,and suction isolation?? Matrix and wedge placed (Sectional)?? Limelite, Etch, G5 Desensitizer, Scotchbond [place], Beautifil Flow A2, Filtek [place]: A2 placed per manufacture instructions?? Finish and Kuwaiti?? Checked contact, margins and occl?? Post-op instructions reviewed with patient?? Disc with pt that filling is deep, placed medicine, may be sensitive for next few days but will likely heal itself. Pt aware to let us know is sx become extreme. Assisted by: Estela otto , 11:06 AM. I attest that the treatment rendered today is completed and treatment met the standard of care. , 11:17 AM. [id number] Not available 10/07/2022 14:05:27 01/07/2023 01/07/2023 01/07/23 APRO, NICOLE w/ Dr. Galvez, ORAL AND MAXILLOFACIAL SURGERY, BW RT, 5% NaF varnish NHV: 6M APRO, BWs, FL Completed Procedures D1206 - Topical application of fluoride varnish D1110 - Prophylaxis - adult D0270 - Bitewing - single radiographic image D0120 - Periodic oral evaluation - established patient D0603 - Caries risk assessment and documentation, with a finding of high risk CC: none HHX: Reviewed, upated med list. NKDA. No C/I to txt. BP: 124/88?? P: 83 EOE/IOE: No s/s of hard or soft tissue pathology. EXAM: Pt is 37yo, presents for 6M APRO. RT BW - reviewed by Dr Galvez, #30-D looks good, no tx indicated. No new caries noted. Existing tx plan for #13 crown.?? Reviewed diet w/pt, healthy diet recommended, minimal carbohydrates. Acid reflux, pt is on Omeprazole. Previously Rx for SF 1.1% gel - per pt hasn't been using it. Now has TMJ splint (appliance is on mandible) made by [facility]. Pt wears it full-time, noticed significant improvement in her TMJ discomfort. Didn't bring it in today. CARIES RISK: high- active decay, multisurface/IP restorations POH: SL plaque, LT-LT+ IP wale ant calculus, MOD generalized bleeding, pap redness OHI: Pt brushes 2x/daily, flosses most days. Stressed daily flossing. Stressed brushing or rinsing with water after eating and before placing TMJ splint back in mouth. PERIO: Stage I perio, generalized, Grade A; see perio chart from 01/07/23 - generalized 4mm pocketing. Recession: generalized 1-3mm. Reviewed w/pt. HYGIENE TX: Scaled/deplaqued all 4 quads with HI and USS, Polished, flossed. Due to high caries risk applied 5% NaF varnish to all teeth. Pt didn't bring her splint today. REFERRAL: None. 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 I attest that the treatment rendered today is completed and treatment met the standard of care. , 8:50 AM. [id number] Not available 01/27/2023 10:42:00 08/04/2023 08/04/2023 DOS:?? 08/04/23 Tx: APRO, 4BW, NICOLE w/? Lenny, 5% NaF varnish?? NHV: 6MR APRO, NICOLE, ORAL AND MAXILLOFACIAL SURGERY?? NV: ?? None?? Completed Procedures D0274 - Bitewings - four radiographic images D1206 - Topical application of fluoride varnish D1110 - Prophylaxis - adult D0120 - Periodic oral evaluation - established patient D0603 - Caries risk assessment and documentation, with a finding of high risk CC:?? None.?? HHX: Reviewed LIVAN, no changes. No CI to TX. ?? BP:?? 122/79? P:?? 76 EOE/IOE: No s/s of hard or soft tissue pathology. ?? Exam: ??Dr. Galvez examined pt and rev. BWX- no decay detected today. Still a rec. for a crown on #13 due to previous RCT.?? POH: good.? Brushinx/day.? Flossing: ??few times per week.?? Plaque:?? slight.?Calculus:?? light.? Stain: minimal.? Bleeding: light.? Gingival tissues: ?? gen pink, round, soft tissue.?? OHI: Recommended brushing 2x/daily, flossing 1x/daily, using NaF rinse daily.?? Perio: Stage I perio, generalized, Grade A; see perio chart from 01/07/23 - generalized 4mm pocketing. Recession: generalized 1-3mm.??Recommende d thorough OH, daily flossing to help improve and maintain gingival condition. ?? Scaled/deplaqued all 4 quads with HI and USS. Polished, flossed. ??4 BWX. Applied fl varnish?? Referral: None. ?? , 3:56 PM. I attest that the treatment rendered today is completed and treatment met the standard of care. , 3:56 PM. Billing Provider: Bakari Galvez DDS [email or web address] Not available 08/04/2023 21:53:35 Plan of Treatment Reminders Order Date Submit Date Provider Last Modified By Organization Details Last Modified Time Details Appointments None record ed. Lab None record ed. Referral None record ed. Procedures None record ed. Surgeries None record ed. Imaging None record ed. Medication Orders None record ed. Patient TargetsNo targets recorded. Patient InstructionsNo instructions recorded. Reason for Referral None Reported. Problems Name Problem SNOMED Code Status Onset Date Resolution Date Notes Provider Name and Address Organization Details Recorded Time Lyme disease 20176587 Active 2018 LYME DISEASE; Entered By: Christen shukla By: Bora East Annotate: March 2018 Not Available [facility] 3 13:58:05 Rheumatoid arthritis 88170064 Active 2018 Rheumatoid arthritis; Entered By: Christen shukla By: Bora East Not Available [facility] 3 13:58:05 Problem Notes None recorded. Medical Equipment None Reported. Allergies Allergen ID Allergen Name Allergen Category Reaction Reaction Severity Criticality Documentation Date Start Date Code Code System Note Provider Name and Address Organization Details Recorded Time 17729 No Allergy Informati on Available Not available Not available Not available Not available 08/15/2022 Not Available [facility] 3 04:40:26 No known drug allergies Medications Name Sig Start Date Stop Date Status Note LastModified by Organization Details LastModified Time prednison e 10 mg tablet 01/07 completed Not Available Not Available Not Available cefpodoxi me 200 mg tablet 01/07 completed Not Available Not Available Not Available azithromy prudence 250 mg tablet TAKE 1 TABLET BY MOUTH DAILY active Not Available Not Available No t Available tizanidin e 4 mg tablet 01/07 completed Not Available Not Available Not Available fluconazo le 150 mg tablet TAKE 1 TABLET BY MOUTH ONCE FOR VAGINAL YEAST INFECTIO N. MAY RPEAT DOSE AFTER 72 HOURS FOR RECURREN CE active Not Available Not Available No t Available benzonata te 200 mg capsule TAKE 1 CAPSULE BY MOUTH THREE TIMES DAILY FOR 5 DAYS NEEDED active Not Available Not Available No t Available ondansetr on HCl 4 mg tablet TAKE 1 TABLET BY MOUTH EVERY 12 HOURS NEEDED FOR NAUSEA active Not Available Not Available No t Available prednison e 20 mg tablet TAKE 2 TABLETS BY MOUTH EVERY DAY FOR 5 DAYS active Not Available Not Available No t Available prednison e 5 mg tablet TAKE THREE TABLETS BY MOUTH EVERY DAY active Not Available Not Available No t Available penicilli n V potassium 500 mg tablet TAKE 1 TABLET BY MOUTH TWICE A DAY active Not Available Not Available No t Available omeprazol e 40 mg capsule,d elayed release TAKE ONE CAPSULE BY MOUTH EVERY DAY active Not Available Not Available No t Available phenazopy ridine 100 mg tablet 01/07 completed Not Available Not Available Not Available oseltamiv ir 75 mg capsule TAKE ONE CAPSULE BY MOUTH TWICE A DAY active Not Available Not Available No t Available gabapenti n 300 mg capsule TAKE ONE CAPSULE BY MOUTH TWICE A DAY active Not Available Not Available No t Available omeprazol e 20 mg capsule,d elayed release 01/07 completed Entered By: Christen Busby Sig celestina By: Bora Lorenzana on Uncod ed: N BMN: N Not Available Not Available Not Available hydroxych loroquine 200 mg tablet TAKE ONE TABLET BY MOUTH TWICE A DAY active Not Available Not Available No t Available cefuroxim e axetil 500 mg tablet 06/04 completed Entered By: Estela Anthony Si gned By: Faustina Martínez DMD Unco ded: N BMN: N Not Available Not Available Not Available fluticaso ne propionat e 50 mcg/actua tion nasal spray,juli pension INSTILL 1 SPRAY INTO BOTH NOSTRILS ONCE DAILY active Not Available Not Available No t Available sodium fluoride 1.1 % dental gel Apply 1 a small amount to teeth at bedtime 01/07 completed Not Available Not Available Not Available iron every other day per pt active Entered By: Augustine Noble Signed By: Augustine Noble Uncoded : Y BMN: N Not Available Not Available Not Available hydroxych loroquine active Entered By: Augustine Noble Signed By: Augustine Noble Uncoded : Y BMN: N Not Available Not Available Not Available gabapenti n active Entered By: Augustine Noble Signed By: Augustine Noble Uncoded : Y BMN: N Not Available Not Available Not Available Humira active Entered By: Augustine Noble Signed By: Augustine Noble Uncoded : Y BMN: N Not Available Not Available Not Available diclofena c 1 % topical gel APPLY SMALL AMOUNT TOPICALL Y TO THE AFFECTED AREA THREE TIMES DAILY NEEDED active Not Available Not Available No t Available vitamin E mixed 400 unit capsule 06/04 completed Entered By: Estela Anthony Si gned By: Faustina Martínez DMD Unco ded: N BMN: N Not Available Not Available Not Available Xeljanz 5 mg tablet 01/07 completed Not Available Not Available Not Available acetylcys teine 500 mg capsule 06/04 completed Entered By: Estela Anthony Si gned By: Faustina Martínez DMD Unco ded: N BMN: N Not Available Not Available Not Available Humira(CF ) Pen 40 mg/0.4 mL subcutane ous kit active Not Available Not Available Not Available Xeljanz 10 mg tablet 01/07 completed Entered By: Estela Anthony Si gned By: Fausitna Martínez DMD Unco ded: N BMN: N Not Available Not Available Not Available Paxlovid 300 mg (150 mg x 2)-100 mg tablets in a dose pack TAKE 2 NIRMATRE LVIR TABLETS AND 1 RITONAVI R TABLET TOGETHER BY MOUTH TWICE DAILY FOR 5 DAYS 01/07 completed Not Available Not Available Not Available Vitals Date Recorded Heart rate Systolic blood pressure Diastolic blood pressure Provider Name and Address Organization Details Last Updated DateTime 01/07/2023 83 /min 124 mm[Hg] 88 mm[Hg] Not Available [facility] 01/07/2023 14:28:53 Social History None recorded. Functional Status None recorded. Mental Status None recorded. Family History Nothing Reported. Medical History No medical history recorded. Gynecological HistoryNo gynecological history recorded. Obstetrics History GPAL:G 0 P 0 0 0 0 Past Encounters Encounter ID Performer Location Encounter Start Date Encounter Closed Date Diagnosis/Indication Diagnosis SNOMED-CT Code Diagnosis ICD10 Code [id number] [facility] [address] [place] [address] 09/22/2022 10:13:02 10/07/2022 14:05:29 [id number] [facility] [address] [place] [address] 01/07/2023 13:06:37 01/27/2023 10:42:00 [id number] [facility] [address] [place] [address] 08/04/2023 14:41:20 08/04/2023 21:53:40 Health Concerns Section Related Observation LastModified by Organization Detai ls LastModified Time None Recorded Concern Status LastModified by Organization Details LastModified Time None Recorded Advance Directives Directive None Recorded Payers Encounter Date Sequence Insurance Name Policy Number Policy Vernon Covered Member ID Vernon Member ID Guarantor Name 09/22/2022 [employer] (MOVED TO HOLD) Arabella Luke [id number] Arabella Angelique Luke 09/22/2022 *SELF PAY* Arabella Luke Arabella Angelique Luke 01/07/2023 [employer] (MOVED TO HOLD) Arabella Luke [id number] Arabella Angelique Lynette 01/07/2023 *SELF PAY* Arabella Lynette Arabella Angelique Lynette 08/04/2023 [employer] (MOVED TO HOLD) Arabella Luke [id number] Arabella Angelique Luke 08/04/2023 *SELF PAY* Arabella Luke Arabella Angelique Luke OBGyn Episode No OBEpisode recorded.
--- OUTSIDE RECORDS SUMMARY | 2024-03-14 17:56 | XMS_ITS | Encounter Summary ---
Author Organization [facility] Address [address] [place] [address] Care Team Providers Care Patient Resource Coordinator Name Role Phone PaulRebeca George AGUILERA Primary Care Provider [phone] Reason for Visit * Reason Onset Date Comments Medications Refill 12/09/2023 Humira refill s needed Encounter Details Date Type Department Care Team (Late st Contact Info) Description 12/09/2023 Telephone [facility] - [facility] Rheumatology [address] [place] [address] Venecia Vega, DO [address] [facility] [address] [place] [address] Medications Refill (Humira refills needed) Social History Tobacco Use Types Packs/Day Years [...] Dispensed Refills Start Date End Da te adalimumab (HUMIRA,CF, PEN) 40 mg/0.4 mL penIndications:Seronegative rheumatoid arthritis ([facility]) Inject 0.4 mL into the skin every 7 days. 12 Each 1 12/09/2023 documented in this encounter Progress Notes * Jaleel Montano RPH - 12/09/2023 1325 EDT Renewal of Humira is required for continued use; order sent per refill protocol to [facility] for dispensing. Follow-up with Venecia Vega DO. Jaleel Montano, PharmD Ambulatory Pharmacist Clinician - Rheumatology 12/09/2023 documented in this encounter Miscellaneous Notes * Telephone Encounter - Selina Haq - 12/09/2023 1216 EDT Medication Refill Request Medication: Humira Patient needs medication by: ~12/18 Scheduled outreach date: 12/09 Pharmacy: [facility] ([facility]) [address] Next appt: Visit date not found documented in this encounter Plan of Treatment Upcoming Encounters Date Type Department Care Team (Late st Contact Info) Description 03/23/2024 11:15 EDT Telemedicine [facility] Rheumatology [address] [place] [address] Venecia Vega MD [address] [facility] [address] [place] [address] documented as of this encounter Visit Diagnoses Diagnosis Seronegative rheumatoid arthritis ([facility])- Primary Rheumatoid arthritis documented in this encounter Discontinued Medications Medication Sig Discontinue Reason Start Date End Da te adalimumab (HUMIRA,CF, PEN) 40 mg/0.4 mL penIndications:Seronegat jennifer rheumatoid arthritis ([facility]) Inject 0.4 mL into the skin every 7 days. Reorder 05/21/2023 12/09/2023 documented as of this encounter Care Teams Patient Resource Coordinator Relationship Specialty Start Date End Date Rebeca Miller APRN [address] [place] [phone] PCP - General Family Medicine - Primary Care 11/21/21 03/07/24 documented as of this encounter
--- OUTSIDE RECORDS SUMMARY | 2024-03-14 17:56 | XMS_ITS | Encounter Summary ---
Author Organization [facility] Address [address] [place] [address] Care Team Providers Care Software Developer Intern Name Role Phone PaulRebeca juan George AGUILERA Primary Care Provider [phone] Encounter Details Date Type Department Care Team (Latest Contact Info) Description 12/09/2023 Specialty Pharmacy [facility] [address] [place], [place] [id number] [place] Refill Coordination Outreach for Rheumatology Social [...] No 07/07/2019 documented as of this encounter Progress Notes * Selina Haq - 12/09/2023 1216 EDT Humira refills requested documented in this encounter Plan of Treatment Upcoming Encounters Date Type Department Care Team (Late st Contact Info) Description 03/23/2024 11:[address] [facility] Rheumatology [address] [place], [place] [address] Venecia Vega MD [address] [facility] [place] [phone] documented as of this encounter Visit Diagnoses Not on filedocumented in this encounter Care Teams Software Developer Intern Relationship Specialty Start Date End Date Rebeca Miller APRN [address] [place] [phone] PCP - General Family Medicine - Primary Care 11/21/21 03/07/24 documented as of this encounter
--- OUTSIDE RECORDS SUMMARY | 2024-03-14 17:56 | XMS_ITS | Encounter Summary ---
Author Organization [facility] Address [address] [place] [address] Care Team Providers Care Filtration Operator Name Role Phone Pepper Millerily George AGUILERA Primary Care Provider [phone] Reason for Referral * Office Procedure (Routine/Next Available) - Authorization Not Required Specialty Diagnoses / Procedures [facility] Referred To Contact Diagnoses Bilateral carpal tunnel syndrome Procedures EMG/NERVE CONDUCTION STUDY Venecia Vega MD [address] [place], [place] [address] [address] [place] [address] Referral ID Status Reason Start Date Expiration Date Visits Requested Visits Authorized [id number] Authorization Not Required Specialty Services Required 4 1 1 Reason for Visit * Reason Comments Telemedicine Video Visit Follow Up- Anky losing Spondylitis Encounter Details Date Type Department Care Team (Late st Contact Info) Description 10/26/2023 9:15 EDT Telemedicine [facility] Rheumatology [address] [place] [address] Venecia Vega MD [address] [place] [address] [address] [place] [address] Bilateral carpal tunnel syndrome (Primary Dx); Ankylosing spondylitis of sacral region (HCC-CMS); High risk medication use; Thrombocytosis Social History Tobacco Use Types Packs/Day Years [...] No 07/07/2019 documented as of this encounter Patient Instructions * Patient Instructions* Venecia Vega MD - 10/26/2023 9:15 EDT 1 Continue the Humira weekly 2 Hand pain suspicious for carpal tunnel Information and stretches Referral for [facility] area EMG to test hands. * Attachments The following attachments cannot be sent through Care Everywhere. * Carpal Tunnel Syndrome (Irish) * Carpal Tunnel Syndrome: Exercises (Irish) * EMG (Electromyogram) (Irish) documented in this encounter Progress Notes * Venecia Vega MD - 10/26/2023 0915 EDT [facility] Video Visit Today's visit was provided through telemedicine video conferencing: The location of the patient: Home The location of the provider: Office Verbal consent: The concept of ???Telemedicine?? has been described to the patient.Patient has been informed of the anticipated benefits and possible risks. Patient understands the information provided regarding telemedicine, has had the opportunity to ask questions about this information, and all questions have been answered to patient???s satisfaction. Patient consents for the use of telemedicine in his/her medical care and authorizes the transmission of any relevant medical information to providers and their staff involved in patient???s medical or mental health care. Verbal consent obtained by myself or auxiliary staff: yes. Subjective: Chief Complaint(s): Telemedicine Video Visit (Follow Up- Ankylosing Spondylitis ) HPI: Arabella Ojeda feels well Tolerates weekly Humira Ankles and knees ok, more active Hands are numb both sides. Last month. Wrists feel sore,some clicking started when stacking firewood Numb into hands. Sometimes at night. Symptoms radiate up the arms. ROS No recent illness. I have reviewed patient's tobacco history: reports that she has never smoked. She has never used smokeless tobacco. I have reviewed current problem list and current medications. Objective: Examination: Home Vitals: There were no vitals taken for this visit. Pertinent exam findings: appears well, neck supple and mood and affect appropriate no synovitis wrists or hands. Localizes dysthesia to right hand phalanges. NO thenar atrophy on video Data reviewed with patient Labs at [facility], nl crp Nl renal function mild elevation ast/aslt, refer to scans Prior note. Assessment & Plan: Arabella Ojeda is a 38 y.o. female with a history of seronegative spondyloathropathy. Doing well on Humira weekly New concern d/t her having hand numbness worse after stacking firewood, cts suspected Plan as below. 1. Bilateral carpal tunnel syndrome EMG/NERVE CONDUCTION STUDY EMG, consider braces Reviewed stretches 2. Ankylosing spondylitis of sacral region (HCC-CMS) stable on weekly Humira 3. High risk medication use labs ok, improved lfts likely d/t SH[facility] 4. Thrombocytosis improved reflection of improved arthritis control RTC 3 mo vide Patient Instructions 1 Continue the Humira weekly 2 Hand pain suspicious for carpal tunnel Information and stretches Referral for [facility] area EMG to test hands. Labs just prior cbc,c mp crp I spent a total of 33 minutes in discussion with the patient as described in the progress note on this encounter on the the day of this encounter. The following individuals and their role did participate in today's encounter visit: Provider: Venecia Vega MD Patient documented in this encounter Plan of Treatment Upcoming Encounters Date Type Department Care Team (Late st Contact Info) Description 03/23/2024 11:15 EDT Telemedicine [facility] Rheumatology [address] [place], [place] [phone] Venecia Vega MD [address] [facility] [address] [place] [address] Scheduled Orders Name Type Priority Associated Diagnoses Order Schedule EMG/NERVE CONDUCTION STUDY Procedures Routine/Next Available Bilateral carpal tunnel syndrome Expected: 01/25/2024 (Approximate), Expires: 10/25/2024 documented as of this encounter Visit Diagnoses Diagnosis Bilateral carpal tunnel syndrome- Primary Carpal tunnel syndrome Ankylosing spondylitis of sacral region (HCC-CMS) High risk medication use Encounter for long-term (current) use of other medications Thrombocytosis Essential thrombocythemia documented in this encounter Discontinued Medications Medication Sig Discontinue Reason Start Date End Da te predniSONE (DELTASONE) 5 mg tabletIndications:Ankylo sing spondylitis of multiple sites in spine (HCC-CMS) Take 3 Tablets by mouth daily. 07/23/2023 10/26/2023 documented as of this encounter Care Teams Filtration Operator Relationship Specialty Start Date End Date Rebeca Miller APRN [address] [place] [phone] PCP - General Family Medicine - Primary Care 11/21/21 03/07/24 documented as of this encounter
--- OUTSIDE RECORDS SUMMARY | 2024-03-14 17:56 | XMS_ITS | Encounter Summary ---
Author Organization [facility] Address [address] [place] [address] Care Team Providers Care Junior Accounting Clerk Name Role Phone Paul Rebeca Vazquez APRN Primary Care Provider [phone] Encounter Details Date Type Department Care Team (Latest Contact Info) Description 07/16/2023 Specialty Pharmacy [facility] [address] [place], [place] [phone] [facility] [place], [facility] Refill Coordination Outreach for Rheumatology [...] Contact Info) Description 03/23/2024 11:15 EDT Telemedicine [facility] Rheumatology [address] [place] [address] Venecia Vega MD [address] [facility] [address] [place] [address] documented as of this encounter Visit Diagnoses Not on filedocumented in this encounter Care Teams Junior Accounting Clerk Relationship Specialty Start Date End Date Rebeca Miller APRN [address] [place] [phone] PCP - General Family Medicine - Primary Care 11/21/21 03/07/24 documented as of this encounter
--- OUTSIDE RECORDS SUMMARY | 2024-03-14 17:56 | XMS_ITS | Encounter Summary ---
Author Organization [facility] Address [address] [place] [address] Care Team Providers Care Power Plant Operator Apprentice Name Role Phone PaulRebeca George AGUILERA Primary Care Provider [phone] Encounter Details Date Type Department Care Team (Late st Contact Info) Description 03/26/2023 Specialty Pharmacy [facility] - [facility] [address] [place] [address] [place], [facility] Social History Tobacco Use Types Packs/Day Years [...] Contact Info) Description 03/23/2024 11:15 EDT Telemedicine [facility] Rheumatology [address] [place] [address] Venecia Vega MD [address] [facility] [address] [place] [address] documented as of this encounter Visit Diagnoses Not on filedocumented in this encounter Care Teams Power Plant Operator Apprentice Relationship Specialty Start Date End Date Rebeca Miller APRN [address] [place] [phone] PCP - General Family Medicine - Primary Care 11/21/21 03/07/24 documented as of this encounter
--- OUTSIDE RECORDS SUMMARY | 2024-03-14 17:56 | XMS_ITS | Encounter Summary ---
Author Organization [facility] Address [address] [place] [address] Care Team Providers Care Molecular Geneticist Name Role Phone Rebeca Miller George AGUILERA Primary Care Provider [phone] Encounter Details Date Type Department Care Team (Late st Contact Info) Description 02/02/2023 Orders Only [facility] Rheumatology [address] [place] [address] Katt Stringer RN Ankylosing spondylitis of sacral region ([facility]) (Primary Dx) Social History Tobacco Use Types Packs/Day Years [...] Dispensed Refills Start Date End Da te hydrOXYchloroQUINE (PLAQUENIL) 200 mg tabletIndications:Ankylo sing spondylitis of sacral region (HCC-CMS) Take 1 Tablet by mouth 2 times daily. 180 Tablet 3 02/02/2023 03/08/2024 documented in this encounter Plan of Treatment Upcoming Encounters Date Type Department Care Team (Late st Contact Info) Description 03/23/2024 11:15 EDT Telemedicine [facility] Rheumatology [address] [place], [place] [phone] Venecia Vega MD [address] [place] [address] [address] [place] [phone] documented as of this encounter Visit Diagnoses Diagnosis Ankylosing spondylitis of sacral region (HCC-CMS)- Primary documented in this encounter Discontinued Medications Medication Sig Discontinue Reason Start Date End Da te hydrOXYchloroQUINE (PLAQUENIL) 200 mg tabletIndications:Ankylos ing spondylitis of sacral region (HCC-CMS) Take 1 Tablet by mouth 2 times daily. Reorder 01/20/2023 02/02/2023 documented as of this encounter Care Teams Molecular Geneticist Relationship Specialty Start Date End Date Rebeca Miller APRN [address] [place] [phone] PCP - General Family Medicine - Primary Care 11/21/21 03/07/24 documented as of this encounter
--- OUTSIDE RECORDS SUMMARY | 2024-03-14 17:56 | XMS_ITS | Encounter Summary ---
Author Organization [facility] Address [address] [place] [address] Care Team Providers Care Gold Blower Name Role Phone PaulRebeca George AGUILERA Primary Care Provider [phone] Encounter Details Date Type Department Care Team (Latest Contact Info) Description 11/11/[address] [facility] [address] [place], [place] [id number] [place] [facility] Refill Coordination Outreach for Rheumatology, Clinical Follow-up (2x annually) for Rheumatology Social History Tobacco Use Types [...] as of this encounter Progress Notes * Joanna Jurado RPH - 11/11/2023 1101 EDT Specialty medication: Dallasira I reviewed this patient's chart today. I conduct periodic chart reviews to identify any adherence issues and clinical response to specialty medications. The patient is using this medication appropriately and does not require any pharmacist intervention at this time. Joanna Jurado PharmD Ambulatory Clinical Pharmacist 11/11/2023 documented in this encounter Plan of Treatment Upcoming Encounters Date Type Department Care Team (Late st Contact Info) Description 03/23/2024 11:15 EDT Telemedicine [facility] Rheumatology [address] [place] [address] Venecia Vega MD 130 [facility] [address] [place] [phone] documented as of this encounter Visit Diagnoses Not on filedocumented in this encounter Care Teams Gold Blower Relationship Specialty Start Date End Date Rebeca Miller APRN [address] [place] [phone] PCP - General Family Medicine - Primary Care 11/21/21 03/07/24 documented as of this encounter
--- OUTSIDE RECORDS SUMMARY | 2024-03-14 17:56 | XMS_ITS | Encounter Summary ---
Author Organization [facility] Address [address] [place] [address] Care Team Providers Care Computer Clerk Name Role Phone Paul Rebeca Vazquez APRN Primary Care Provider Encounter Details Date Type Department Care Team (Latest Contact Info) Description 08/12/2023 Specialty Pharmacy [facility] Special[facility] [address] [place], [place] [id number] [place], [place] [facility] Refill Coordination Outreach for Rheumatology, One-time Clinical Outreach (1 time occurrence) for Rheumatology Social [...] Contact Info) Description 03/23/2024 11:15 EDT Telemedicine [facility] Rheumatology [address] [place] [address] Venecia Vega MD [address] [facility] [address] [place] [address] documented as of this encounter Visit Diagnoses Not on filedocumented in this encounter Care Teams Computer Clerk Relationship Specialty Start Date End Date Rebeca Miller APRN [address] [place] [phone] PCP - General Family Medicine - Primary Care 11/21/21 03/07/24 documented as of this encounter
--- OUTSIDE RECORDS SUMMARY | 2024-03-14 17:56 | XMS_ITS | Encounter Summary ---
Author Organization [facility] Address [address] [place] [address] Care Team Providers Care Plastic Surgery Coordinator Name Role Phone Corine Coulter Primary Care Provider [phone] Reason for Visit * Reason Onset Date Comments Follow-up 03/08/2024 Medications Refill 03/08/2024 Encounter Details Date Type Department Care Team (Late st Contact Info) Description 03/08/2024 Telephone [facility] Rhe[facility] [address] [place], [place] [phone] Pk Stringer RN Follow-up; Medications Refill Social History Tobacco Use Types [...] Dispensed Refills Start Date End Da te hydroxychloroquine (PLAQUENIL) 200 mg tabletIndications:Ankylos ing spondylitis of sacral region (HCC-CMS) Take 1 Tablet by mouth 2 times daily. 180 Tablet 3 03/08/2024 documented in this encounter Miscellaneous Notes * Addendum Note - Pk Stringer RN - 03/08/2024 0957 EDTAddended by: PK STRINGER on: 03/08/2024 09:57 Modules accepted: Orders * Telephone Encounter - Pk Stringer RN - 03/08/2024 0956 EDT Last visit note reviewed; follow up noted as recommended and eye exam up to date. Hydroxychloroquine refill sent per protocol. Order for CRP faxed internally to [facility]. * Telephone Encounter - Pk Stringer RN - 03/08/2024 0908 EDT We received a faxed refill request for hydroxychloroquine from [facility] in [place]. Last visit note of 10/26/23 reviewed and patient was to follow up in 3 months but this was not scheduled. [place]ulau schedule follow up please and when you call her, can you ask when her last eye exam was for monitoring for hydroxychloroquine? Once she is scheduled, please send this back to me so I can refill hydroxychloroquine. Thank you. documented in this encounter Plan of Treatment Upcoming Encounters Date Type Department Care Team (Late st Contact Info) Description 03/23/2024 11:15 EDT Telemedicine [facility] Rheumatology [address] [place] [address] Venecia Vega MD [address] [facility] [address] [place] [address] Scheduled Orders Name Type Priority Associated Diagnoses Orde r Schedule C REACTIVE PROTEIN Lab Routine Ankylosing spondylitis of sacral region (HCC-CMS) 4 Occurrences starting 03/08/2024 until 03/08/2025 documented as of this encounter Visit Diagnoses Diagnosis Ankylosing spondylitis of sacral region (HCC-CMS)- Primary documented in this encounter Discontinued Medications Medication Sig Discontinue Reason Start Date End Da te hydrOXYchloroQUINE (PLAQUENIL) 200 mg tabletIndications:Ankylos ing spondylitis of sacral region (HCC-CMS) Take 1 Tablet by mouth 2 times daily. Reorder 02/02/2023 03/08/2024 documented as of this encounter Care Teams Plastic Surgery Coordinator Relationship Specialty Start Date End Date Corine Coulter [address] [place] [phone] PCP - General Family Medicine - Primary Care 03/08/24 documented as of this encounter
--- OUTSIDE RECORDS SUMMARY | 2024-03-14 17:56 | XMS_ITS | Encounter Summary ---
Author Organization [facility] Address [address] [place] [address] Care Team Providers Care Academic Vice President Name Role Phone Paul Rebeca George AGUILERA Primary Care Provider Reason for Visit * Reason Comments Follow-up F/u Encounter Details Date Type Department Care Team (Late st Contact Info) Description 07/07/2023 15:15 EST Telemedicine [facility] Rhe[facility]ology [address] [place] [address] Venecia Vega MD 130 [facility] [address] [place] [address] Nausea (Primary Dx); Ankylosing spondylitis of multiple sites in spine ([facility]); 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[facility]) Social History Tobacco Use Types Packs/Day Years [...] * Patient Instructions* Venecia Vega MD - 07/07/2023 15:15 EST 1 Hold Humira this week Restart on 07/17 if feeling better 2 Ok to take robitussin Ok to take zofran as needed for nausea due to headache once you complete the zpack Don't take zofran if you are on fluconazole 3 Get labs in a couple of week documented in this encounter Ordered Prescriptions Prescription Sig Dispensed Refills Start Date End Da te ondansetron (ZOFRAN) 4 mg tabletIndications:Nausea Take 1 Tablet by mouth every 12 hours as needed for Nausea. 8 Tablet 07/07/2023 07/13/2023 documented in this encounter Progress Notes * Venecia Vega MD - 07/07/2023 1515 EST [facility] Video Visit Today's visit was provided through [...] or auxiliary staff: yes. Subjective: Chief Complaint(s): Follow-up (F/u ) HPI: Arabella Ojeda has been unwell Dx with influenza in June -she started to get sick on 06/28 Did not tolerate tamiflu She has been having fevers. 2 days ago she was seen in ER with bronchitis and started on azithromycin She has been a little better No weight change no mouth sores/no rash. Has been off of Humira for past week She is slowly getting better. Feels exhausted as well She has not been well enough to get in for her labs ROS Since she got sick she has been having headaches. She stopped having fevers She has been having migraines I have reviewed patient's tobacco history: reports that she has never smoked. She has never used smokeless tobacco. I have reviewed current problem list and current medications. Objective: Examination: Home Vitals: There were no vitals taken for this visit. Pertinent exam findings: appears well, neck supple and mood and affect appropriate Data reviewed with patient: labs from 11/18 showing bs 166 CRP elevated Her med list/prior notes/heme notes Assessment & Plan: Arabella Ojeda is a 38 y.o. female with a history of seronegative spondyloathropathy. Doing well on Humira, however, currently has infectious bronchitis following influenza a so med on hold. Plan as below. 1. Nausea ondansetron (ZOFRAN) 4 mg tablet zofran odt prn nausea. Don't take with azithromycin d/t qt interval risk (d/w patient) 2. Ankylosing spondylitis of multiple sites in spine ([facility]) Humira on hold due to acute bronchitis/post influenza syndrome Resume when recovers-approx 1 week. 3. 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 I spent a total of 23 minutes in discussion with the patient as described in the progress note on this encounter on the the day of this encounter. The following individuals and their role did participate in today's encounter visit: Provider: Venecia Vega MD Patient documented in this encounter Plan of Treatment Upcoming Encounters Date Type Department Care Team (Late st Contact Info) Description 03/23/2024 11:15 EDT Telemedicine [facility] Rheumatology [address] [place], [place] [address] Venecia Vega MD [address] [facility] [address] [place] [address] documented as of this encounter Visit Diagnoses Diagnosis Nausea- Primary Nausea alone Ankylosing spondylitis of multiple sites in spine (HCC-CMS) Ankylosing spondylitis 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[facility]) Unspecified disorder of immune mechanism documented in this encounter Care Teams Academic Vice President Relationship Specialty Start Date End Date Rebeca Miller APRN [address] [place] [phone] PCP - General Family Medicine - Primary Care 11/21/21 03/07/24 documented as of this encounter
--- OUTSIDE RECORDS SUMMARY | 2024-03-14 17:56 | XMS_ITS | Encounter Summary ---
Author Organization [facility] Address [address] [place] [address] Care Team Providers Care Research Computing Specialist Name Role Phone Paul Rebeca Vazquez APRN Primary Care Provider [phone] Reason for Visit * Reason Onset Date Comments Medications Refill 05/21/2023 Encounter Details Date Type Department Care Team (Late st Contact Info) Description 05/21/2023 Refill [facility] Rheumatology [address] [place], [place] [phone] Venecia Vega MD 130 [facility] [address] [place] [address] Medications Refill Social History Tobacco [...] te adalimumab (HUMIRA,CF, PEN) 40 mg/0.4 mL penIndications:Seronegativ e rheumatoid arthritis ([facility]) Inject 0.4 mL into the skin every 7 days. 4 Each 5 05/21/2023 12/09/2023 documented in this encounter Miscellaneous Notes * Telephone Encounter - Víctor Chu RN - 05/21/2023 1415 EST Reviewed office visit notes. Sent rx to requested pharmacy, per clinic refill protocol.. documented in this encounter Plan of Treatment Upcoming Encounters Date Type Department Care Team (Late st Contact Info) Description 03/23/2024 11:15 EDT Telemedicine [facility] Rheumatology [address] [place] [id number] Venecia Vega MD [address] [place] [address] [address] [place] [phone] documented as of this encounter Visit Diagnoses Diagnosis Seronegative rheumatoid arthritis ([facility])- Primary Rheumatoid arthritis documented in this encounter Discontinued Medications Medication Sig Discontinue Reason Start Date End Da te adalimumab (HUMIRA,CF, PEN) 40 mg/0.4 mL penIndications:Seronegat jennifer rheumatoid arthritis ([facility]) Inject 0.4 mL into the skin every 7 days. Reorder 01/08/2023 05/21/2023 documented as of this encounter Care Teams Research Computing Specialist Relationship Specialty Start Date End Date Rebeca Miller, WILLY [address] [place] [phone] PCP - General Family Medicine - Primary Care 11/21/21 03/07/24 documented as of this encounter
--- OUTSIDE RECORDS SUMMARY | 2024-03-14 17:56 | XMS_ITS | Encounter Summary ---
Author Organization [facility] Address [address] [place] [address] Care Team Providers Care Public Health Aide Name Role Phone PaulRebeca juan George AGUILERA Primary Care Provider [phone] Encounter Details Date Type Department Care Team (Latest Contact Info) Description 10/12/2023 Specialty Pharmacy [facility] Specialty Pharmacy [address] [place], [place] [address] [place] [facility] Refill Coordination Outreach for Rheumatology Social [...] Contact Info) Description 03/23/2024 11:[address] [facility] Rheumatology [address] [place], [place] [address] Venecia Vega MD [address] [facility] [address] [place] [address] documented as of this encounter Visit Diagnoses Not on filedocumented in this encounter Care Teams Public Health Aide Relationship Specialty Start Date End Date Rebeca Miller APRN [address] [place] [phone] PCP - General Family Medicine - Primary Care 11/21/21 03/07/24 documented as of this encounter
--- OUTSIDE RECORDS SUMMARY | 2024-03-14 17:56 | XMS_ITS | Encounter Summary ---
Author Organization [facility] Address [address] [place] [address] Care Team Providers Care Special Education Educational Assistant Name Role Phone PaulRebeca George AGUILERA Primary Care Provider Encounter Details Date Type Department Care Team (Late st Contact Info) Description 02/02/[address] [facility] - [facility] [address] [place], [place] [phone] [place], [facility] Social History Tobacco Use Types Packs/Day Years [...] as of this encounter Progress Notes * Shelley Cortes - 02/02/2023 1615 EDT Specialty Pharmacy Documentation Medication: Humira Clinic: [facility] Reason for Encounter: documentation Notes: Called pt to check in to see if she was able to reach [employer] on getting a replacement pen. She was able to reach them yesterday 02/02/23 and gave them all her info and told them what happened. She said it sounded like they were going to send a replacement, but was not sure yet. Follow up date: n/a Follow up reason: n/a * Tiarra Diallo - 02/02/2023 1615 EDT Florinda called requesting lot number for the Humira that was dispensed to patient. Lot number [id number]. The case # is [id number]. documented in this encounter Plan of Treatment Upcoming Encounters Date Type Department Care Team (Late st Contact Info) Description 03/23/2024 11:15 EDT Telemedicine [facility] Rheumatology [address] [place] [address] Venecia Vega MD 130 [facility] [address] [place] [address] documented as of this encounter Visit Diagnoses Not on filedocumented in this encounter Care Teams Special Education Educational Assistant Relationship Specialty Start Date End Date Rebeca Miller APRN [address] [place] [address] PCP - General Family Medicine - Primary Care 11/21/21 03/07/24 documented as of this encounter
--- OUTSIDE RECORDS SUMMARY | 2024-03-14 17:56 | XMS_ITS | Encounter Summary ---
Author Organization [facility] Address [address] [place] [address] Care Team Providers Care Cathodic Protection Technician Name Role Phone Rebeca Miller APRN Primary Care Provider [phone] Reason for Visit * Reason Comments Telemedicine Video Visit Encounter Details Date Type Department Care Team (Late st Contact Info) Description 07/23/2023 9:15 EST Telemedicine [facility] Rheumatology [address] [place] [address] Venecia Vega MD [address] [facility] [address] [place] [address] Ankylosing spondylitis of multiple sites in spine (HCC-CMS) (Primary Dx); Vaginal yeast infection; Thrombocytosis Social History Tobacco Use Types Packs/Day [...] on file documented as of this encounter Last Filed Vital Signs Vital Sign Reading Time Taken Comments Blood Pressure - - Pulse - - Temperature - - Respiratory Rate - - Oxygen Saturation - - Inhaled Oxygen Concentration - - Weight 117.9 kg (260 lb) 07/23/2023 0914 EST rep orted weight from home Height - - Body Mass Index 40.72 01/20/2023 0846 EDT documented in this encounter Functional Status Functional Status Response [...] Dispensed Refills Start Date End Da te fluconazole (DIFLUCAN) 150 mg tabletIndications:Vagin al yeast infection 1 tablet for vaginal yeast infection may repeat x 1 for recurrence after 72 hours 2 Tablet 1 07/23/2023 predniSONE (DELTASONE) 5 mg tabletIndications:Ankyl osing spondylitis of multiple sites in spine (HCC-CMS) Take 3 Tablets by mouth daily. 21 Tablet 1 07/23/2023 10/26/2023 documented in this encounter Progress Notes * Mercedes Almeida RN - 07/23/2023 0915 EST Call to patient in regards to this morning's visit which is via my chart. Call went to identified voice mail, I did leave a message asking for a call back to update chart. MERCEDES ALMEIDA RN 07/23/2023 8:57 Reached patient by phone, she has already signed on to my chart for visit. No changes to med list, allergies or pharmacy preference. * Venecia Vega MD - 07/23/2023 0915 EST [facility] Video Visit Today's visit was provided through [...] yes. Subjective: Chief Complaint(s): Telemedicine Video Visit HPI: Arabella Ojeda has been unwell Dx with influenza in June -she started to get sick on 06/28 and did not tolerate tamiflu and then got bronchitis and needed antibiotics. She had been off of her Humira for about 2 weeks She is finally feeling better and back on Humira for past week A bit achy. Noticing significant flare of her arthritis hands feet/knees am stiffness of several hours. Waiting for humira to kick in She has been having a yeast infection due to antibiotics and feels that if she goes on prednisone she may get another. Vaginal discharge is white OTC yeast cream helped. Concerned her symptoms will come back. Requesting fluconazole ROS She has vaginal discharge and used a topical vaginal I have reviewed patient's tobacco history: reports that she has never smoked. She has never used smokeless tobacco. I have reviewed current problem list and current medications. Objective: Examination: Home Vitals: There were no vitals taken for this visit. Pertinent exam findings: appears well, neck supple and mood and affect appropriate Data reviewed with patient Recently labs per [facility], see scans WBC 10.6 platelets elevated CRP CRP elevated Her med list/prior notes/heme notes Assessment & Plan: Arabella Ojeda is a 38 y.o. female with a history of seronegative spondyloathropathy. Doing well on Humira, however, currently just restarted rx after interruption for 14 + days of Humira therapy d/t infectious bronchitis following influenza a so med held and now has recovered and has flare d/t in terupted therapy. Concern for vaginal yeast infection discussed Plan as below. 1. Ankylosing spondylitis of multiple sites in spine ([facility]) predniSONE (DELTASONE) 5 mg tablet Humira weekly Flare rx with prednsione 15mgweek flare d/t influenza and interupted therapy. 2. Vaginal yeast infection fluconazole (DIFLUCAN) 150 mg tablet prn fluoconazole BS control/managed by pcp does not have dx of DM 3. Thrombocytosis chronic seen in [facility] No dx established attributed to her arthritis by [facility] RTC 3 mo Labs just prior cbc,c mp crp I spent a total of 23 minutes [...] Contact Info) Description 03/23/2024 11:15 EDT Telemedicine [facility] Rheumatology [address] [place], [place] [phone] Venecia Vega MD [address] [facility] [address] [place] [address] documented as of this encounter Visit Diagnoses Diagnosis Ankylosing spondylitis of multiple sites in spine ([facility])- Primary Ankylosing spondylitis Vaginal yeast infection Candidiasis of vulva and vagina Thrombocytosis Essential thrombocythemia documented in this encounter Discontinued Medications Medication Sig Discontinue Reason Start Date End Da te fluconazole (DIFLUCAN) 150 mg tabletIndications:Vagi nal yeast infection 1 tablet for vaginal yeast infection may repeat x 1 for recurrence after 72 hours Reorder 01/20/2023 07/23/2023 documented as of this encounter Care Teams Cathodic Protection Technician Relationship Specialty Start Date End Date Rebeca Miller APRN [address] [place] [phone] PCP - General Family Medicine - Primary Care 11/21/21 03/07/24 documented as of this encounter
--- OUTSIDE RECORDS SUMMARY | 2024-03-14 17:56 | XMS_ITS | Encounter Summary ---
Author Organization [facility] Address [address] [place] [address] Care Team Providers Care Cake Wrapper Name Role Phone Paul Rebeca Vazquez APRN Primary Care Provider [phone] Encounter Details Date Type Department Care Team (Latest Contact Info) Description 09/09/2023 Specialty Pharmacy [facility] [address] [place], [place] [address] [facility], [place], [facility] Refill Coordination Outreach for Rheumatology [...] Contact Info) Description 03/23/2024 11:15 EDT Telemedicine [facility] Rheumatology [address] [place] [address] Venecia Vega MD [address] [facility] [address] [place] [address] documented as of this encounter Visit Diagnoses Not on filedocumented in this encounter Care Teams Cake Wrapper Relationship Specialty Start Date End Date Rebeca Miller APRN [address] [place] [phone] PCP - General Family Medicine - Primary Care 11/21/21 03/07/24 documented as of this encounter
--- OUTSIDE RECORDS SUMMARY | 2024-03-14 17:56 | XMS_ITS | Encounter Summary ---
Author Organization [facility] Address [address] [place] [address] Care Team Providers Care Admission Specialist Name Role Phone PaulRebeca juan George AGUILERA Primary Care Provider Encounter Details Date Type Department Care Team (Latest Contact Info) Description 01/13/2024 Specialty Pharmacy [facility] [address] [place], [place] [address] [facility] Refill Coordination Outreach for Rheumatology [...] Contact Info) Description 03/23/2024 11:15 EDT Telemedicine [facility] Rheumatology [address] [place], [place] [address] Venecia Vega MD [address] [facility] [address] [place] [address] documented as of this encounter Visit Diagnoses Not on filedocumented in this encounter Care Teams Admission Specialist Relationship Specialty Start Date End Date Rebeca Miller APRN [address] [place] [phone] PCP - General Family Medicine - Primary Care 11/21/21 03/07/24 documented as of this encounter
--- OUTSIDE RECORDS SUMMARY | 2024-03-14 17:56 | XMS_ITS | Encounter Summary ---
Author Organization [facility] Address [address] [place] [address] Care Team Providers Care Equipment Mechanic Specialist Name Role Phone Rebeca Miller George AGUILERA Primary Care Provider [phone] Corine Coulter Primary Care Provider [phone] Reason for Visit * Reason Onset Date Comments Pre-visit Orders 06/24/2023 I called pt reg arding eye exams. She sees Dr. Vega, and states that [facility] says they have no standing orders for her upcoming blood work. This software writer isn't sure what the standing orders are for. Kindly advise. Encounter Details Date Type Department Care Team (Late st Contact Info) Description 06/24/2023 Telephone [facility] Rheumatology [address] [place] [address] Venecia Vega MD [address] [place] [address] [place] [address] Pre-visit Orders (I called pt regarding eye exams. She sees Dr. Vega, and states that [facility] says they have no standing orders for her upcoming blood work. This software writer isn't sure what the standing orders are for. Kindly advise.) Social History Tobacco Use Types Packs/Day Years [...] No 07/07/2019 documented as of this encounter Miscellaneous Notes * Telephone Encounter - Katt Stringer RN - 06/24/2023 8745 EST Orders placed for labs needed prior to next visit. Please fax to [facility]. Iron level is not included but the CBC does check for anemia and if anemia is present, an iron level may be added onto the the existing lab specimen. documented in this encounter Plan of Treatment Upcoming Encounters Date Type Department Care Team (Late st Contact Info) Description 03/23/2024 11:15 EDT Telemedicine [facility] Rheumatology [address] [place] [address] Venecia Vega MD [address] [facility] [place] [phone] Scheduled Orders Name Type Priority Associated Diagnoses Orde r Schedule COMPLETE BLOOD COUNT AND DIFFERENTIAL Lab Routine Ankylosing spondylitis of thoracolumbar region ([facility]) 2 Occurrences starting 06/24/2023 until 06/24/2024 COMPREHENSIVE METABOLIC PANEL (CMP) Lab Routine Ankylosing spondylitis of thoracolumbar region ([facility]) 2 Occurrences starting 06/24/2023 until 06/24/2024 documented as of this encounter Visit Diagnoses Diagnosis Ankylosing spondylitis of thoracolumbar region ([facility])- Primary Ankylosing spondylitis documented in this encounter Care Teams Equipment Mechanic Specialist Relationship Specialty Start Date End Date Rebeca Miller APRN [address] [place] [phone] PCP - General Family Medicine - Primary Care 11/21/21 03/07/24 Corine Coulter [address] [phone] PCP - General Family Medicine - Primary Care 03/08/24 documented as of this encounter
--- OUTSIDE RECORDS SUMMARY | 2024-03-14 17:57 | XMS_ITS | Encounter Summary ---
Author Organization [facility] Address [address] [place] [address] Care Team Providers Care Cooking Chef Name Role Phone Rebeca Miller APRN Primary Care Provider Corine Coulter Primary Care Provider [phone] Reason for Visit * Reason Onset Date Comments Medications Refill 01/07/2023 Encounter Details Date Type Department Care Team (Late st Contact Info) Description 01/07/2023 Telephone [facility] Rheumatology [address] [place], [place] [phone] Venecia Vega MD [address] [facility] [place] [address] Medications Refill Social History Tobacco [...] 40 mg/0.4 mL penIndications:Seronegativ e rheumatoid arthritis ([facility]) Inject 0.4 mL into the skin every 7 days. 4 Each 5 01/08/2023 05/21/2023 documented in this encounter Miscellaneous Notes * Telephone Encounter - Joanna Eisenberg - 01/07/2023 1639 EDT Medication Refill Request Medication: HUMIRA CF PEN 40mg/0.4ml PNKT Patient needs medication by: 01/17, approximately, according to last adherence screen Scheduled outreach date: 01/07/23 Pharmacy: [facility] ([facility]) [address] Next appt: Visit date not found documented in this encounter Plan of Treatment Upcoming Encounters Date Type Department Care Team (Late st Contact Info) Description 03/23/2024 11:15 EDT Telemedicine [facility] Rheumatology [address] [place] [address] Venecia Vega MD [address] [facility] [place] [phone] documented as of this encounter Visit Diagnoses Diagnosis Seronegative rheumatoid arthritis ([facility]) Rheumatoid arthritis documented in this encounter Discontinued Medications Medication Sig Discontinue Reason Start Date End Da te adalimumab (HUMIRA,CF, PEN) 40 mg/0.4 mL penIndications:Seronegat jennifer rheumatoid arthritis ([facility]) Inject 0.4 mL into the skin every 7 days. Reorder 07/22/2022 01/08/2023 documented as of this encounter Care Teams Cooking Chef Relationship Specialty Start Date End Date Rebeca Miller APRN [address] [place] [phone] PCP - General Family Medicine - Primary Care 11/21/21 03/07/24 Corine Coulter [address] [phone] PCP - General Family Medicine - Primary Care 03/08/24 documented as of this encounter
--- OUTSIDE RECORDS SUMMARY | 2024-03-14 17:57 | XMS_ITS | Encounter Summary ---
Author Organization [facility] Address [address] [place] [address] Care Team Providers Care Sports Betting Manager Name Role Phone PaulRebeca George AGUILERA Primary Care Provider [phone] Reason for Referral * Consult (See Order Priority) - Closed Specialty Diagnoses / Procedures [facility] Referred To Contact Pharmacy Diagnoses High risk medication use Seronegative spondyloarthropathy Venecia Vega MD [address] [place] [address] [address] [place] [address] [facility] [address] [place] [address] Referral ID Status Reason Start Date Expiration Date V isits Requested Visits Authorized [id number] Closed Specialty Services Required 04/29/2022 1 1 Question Answer PA Type: New Medication to be Prior Authorized: Humira sure click 40 mg weekly for seronegative spondyloarthropathy replaces xeljanz Comments The purpose of this request is to inform precertification staff that the requested service needs to be reviewed for prior-authorization. Reason for Visit * Reason Comments Follow-up Discuss meds; the Pt .states that both knees and ankles are painful and has some inflammation. Encounter Details Date Type Department Care Team (Late st Contact Info) Description 04/29/2022 16:15 EDT Office Visit [facility] [address] [place] [address] Venecia Vega MD [address] [place] [address] [address] [place] [id number] High risk medication use (Primary Dx); Seronegative spondyloarthropathy; Iron deficiency anemia, unspecified iron deficiency anemia type Social History Tobacco Use Types Packs/Day Years [...] Time Taken Comments Blood Pressure 140/98 04/29/2022 161 EDT Pulse 68 04/29/2022 161 EDT Temperature 36.2 ??C (97.2 ??F) 04/29/2022 161 EDT Respiratory Rate - - Oxygen Saturation - - Inhaled Oxygen Concentration - - Weight 121.1 kg (267 lb) 04/29/2022 161 EDT Height 170.2 cm (5' 7) 04/29/2022 161 EDT Body Mass Index 41.82 04/29/2022 161 EDT documented in this encounter Functional Status [...] * Patient Instructions* Venecia Vega MD - 04/29/2022 16:15 EDT Prednisone burst and taper for jaw pain, do feel likely jaw pain in part due to arthritis flare Send me the name of the medicine and an update when you feel better Will start Humira 40 mg every 2 weeks for arthritis and this will replace xeljanz Take xeljanz for Now and then just stop the day before you start Humira documented in this encounter Ordered Prescriptions Prescription Sig Dispensed Refills Start Date End Da te predniSONE (DELTASONE) 5 mg tabletIndications:Seronegati ve spondyloarthropathy Take 3 Tablets by mouth daily for 5 days, THEN 2 Tablets daily for 5 days, THEN 1 Tablet daily for 5 days. 30 Tablet 04/29/2022 05/14/2022 documented in this encounter Progress Notes * Venecia Vega MD - 04/29/2022 1615 EDT [facility] Rhe[facility] Follow Up Chief Complaint Patient presents with ??? Follow-up Discuss meds; the Pt.states that both knees and ankles are painful and has some inflammation. Seronegative rheumatoid arthritis ?? -did not tolerate methotrexate/arava/remicade/rinvoq -on tofacitinib 5 mg bid since 2020 ?? Overweight ?? Elevated liver functions -GI consultation NAFL - rx weight loss ?? Thrombocytosis -Heme eval ? D/t anemia vs active snra ?? HPI: Arabella Ojeda is struggling with jaw pain on the left wakes at night. Scared with regard to how severe pain is ? Due to arthritis back on xeljanz 2 weeks, however, has never been able to take consistently due to frequent illness.. Sees tmj clinic/mouth guard Struggles with stress. Son has been aggressive at home at age 16 and has had to have him leave house Stress for family and for patient. Feels that her arthritis is flaring d/t stress as well as d/t needing to stop xeljanz often due to illness. Will be able to do injections due to support from her , Anjel. He will do injections Arthritis main issue. No gi symptoms. Has dry skin left lower leg. No psoriasis Mostly in lower legs right ankle/knees/feet No wrist or hand pain AM stiffness several hours Seen heme d/t elevated platelets ? D/t iron deficiency on supplements had colonoscopy (ok) ROS Stress Sees counselor Some trouble sleeping Sad due to issues with her oldest son Good support at home from spouse Pain ankles/knees/jaw -left (worst) Am stiffness many hours Swollen joints knees, right ankle Xeljanz daily x 2 weeks not much better Allergies include: Patient has no known allergies. Current Outpatient Medications Medication ??? zoqokts-gdgovwoadvssb-anklmcwd (EXCEDRIN MIGRAINE) 250-250-65 mg per tablet ??? fluticasone propionate (FLONASE) 50 mcg/actuation nasal spray ??? hydrOXYchloroQUINE (PLAQUENIL) 200 mg tablet ??? loratadine (CLARITIN) 10 mg tablet ??? naproxen sodium (ALEVE) 220 mg capsule ??? omeprazole (PRILOSEC) 40 mg capsule ??? tofacitinib (XELJANZ) 5 mg tablet No current facility-administered medications for this visit. Past Medical History: Diagnosis Date ??? Lyme disease 07/07/2019 Treatment with naturopathy Antibiotics. Supplements and tinctures. Therapy from 02/19 to 06/22 Dr Wyatt at [facility] ??? Obesity (BMI 30-39.9) ??? Otitis media, recurrent, bilateral ??? Seronegative spondyloarthropathy 07/07/2019 ??? Seronegative spondyloarthropathy 07/07/2019 Social History Tobacco Use ??? Smoking status: Never Smoker ??? Smokeless tobacco: Never Used Vaping Use ??? Vaping Use: Never used Substance Use Topics ??? Alcohol use: Not Currently ??? Drug use: Never ROS Negative except as in hpi. PHYSICAL EXAMINATION: BP (!) 140/98 (BP Cuff Location: Right arm, BP Patient Position: Sitting, BP Cuff Sizes: Adult, regular) Pulse 68 Temp 36.2 ??C (97.2 ??F) Ht 170.2 cm (67) Wt (!) 121.1 kg (267 lb) BMI 41.82 kg/m?? Physical Exam Lab Results Component Value Date WBC PRESENT 05/22/2016 HGB 12.6 02/20/2020 MCV 90.3 02/20/2020 PLT 487 (H) 02/20/2020 RAPID3 SCORES AND INTERPRETATION 04/29/2022 Functional Status 1 Pain Tolerance 5.5 Global Estimate 2 RAPID3 8.5 Interpretation Moderate ASSESSMENT AND PLAN Arabella Ojeda is a 36 y.o. 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 Seronegative spondyloarthropathy Xeljanz not effective as therapy interrupted frequently. Also going through major life stressors due to son's mental health troubles stress is going to adversely effect arthritis. Remicade helped arthritis in past but made her ill for one week after each infusion. Humira not sure, had injection site reaction. Plaquenil not adequate/ssz not adequate. Methotrexate side effects (mouth issues) Plan retry Humira due to predominant joint issues. Anjel (spouse) can help D/W Arabella regarding side effects/injection reaction Would replace her Xeljanz (stop xeljanz day before starting Humira 40 mg every 14 days) Humira may take up to 3 mo for benefit (Arabella aware) If not better with Humira ? If may try Cosentyx Appt in 3 mo for recheck Thrombocytosis Likely d/t iron deficiency anemia + possible arthritis flare Seen in heme Repeat labs Iron supplements. Left sided jaw pain Likely a large component of her spondyloarthropathy contributing. Prednisone burst today for flare -risk benefits reviewed RTC 3 mo Impressions, diagnosis, treatment plan were reviewed. Patient questions and concerns were reviewed and answered. Patient agreeable to plan of care and will call if any addition concerns or questions arise. Med Orders Placed This Visit and Additions to the Medication List Medications ??? predniSONE (DELTASONE) 5 mg tablet Sig: Take 3 Tablets by mouth daily for 5 days, THEN 2 Tablets daily for 5 days, THEN 1 Tablet dailyfor 5 days. Dispense: 30 Tablet Refill: 0 Orders Placed This Encounter Procedures ??? Complete Blood Count and Differential Standing Status: Future Standing Expiration Date: 04/29/2023 Order Specific Question: Results Release to Patient (Note: Choosing Manual Release will only block results from tests performed at [facility] and does not apply for Miscellaneous Test Order) Answer: Immediate via MyChart Portal ??? Comprehensive Metabolic Panel (CMP) Standing Status: Future Standing Expiration Date: 04/29/2023 Scheduling Instructions: Blood Test and Fasting How long do I have to fast for before a blood test? - If a fasting blood test is ordered, you should not have anything to eat or drink (except water) for at least eight hours. This usually involves an overnight fast. - You should continue to take any prescription medications, unless your physician directed you not to take them. - Smoking and exercise may affect your results as well, so you should refrain from these activitiesas much as possible during this time. If you have any concerns about refraining from food for this period of time, talk to your physician. Order Specific Question: The lab recommends a fasting sample. Should phlebotomy collect the sample if the patient is NOT fasting? Answer: Yes Order Specific Question: Results Release to Patient (Note: Choosing Manual Release will only block results from tests performed at [facility] and does not apply for Miscellaneous Test Order) Answer: Immediate via MyChart Portal ??? C Reactive Protein (use to detect acute inflammation) Standing Status: Future Standing Expiration Date: 04/29/2023 Order Specific Question: Results Release to Patient (Note: Choosing Manual Release will only block results from tests performed at [facility] and does not apply for Miscellaneous Test Order) Answer: Immediate via Tweetflow[employer] Portal ??? Ambulatory Specialty Pharmacy Medication Prior Authorization Request ([id number]) The purpose of this request is to inform precertification staff that the requested service needs anthony reviewed for prior-authorization. Standing Status: Future Standing Expiration Date: 04/29/2023 Referral Priority: See Order Priority Referral Type: Consult Referral Reason: Specialty Services Required Number of Visits Requested: 1 Venecia Vega MD 04/29/2022 16:28 documented in this encounter Plan of Treatment Upcoming Encounters Date Type Department Care Team (Late st Contact Info) Description 03/23/2024 11:15 EDT Telemedicine [facility] Rhe[facility]ology [address] [place] [address] Venecia Vega MD [address] [place] [address] [address] [place] [phone] Scheduled Referrals Name Type Priority Associated Diagnoses Orde r Schedule AMB CONS/FOLLOW UP SPECIALTY PHARMACY MEDICATION PRIOR AUTHORIZATION REQUEST Outpatient Referral Routine/Next Available High risk medication use Seronegative spondyloarthropathy Expected: 05/06/2022 (Approximate) , Expires: 04/29/2023 documented as of this encounter Visit Diagnoses Diagnosis High risk medication use- Primary Encounter for long-term (current) use of other medications Seronegative spondyloarthropathy Spondylosis of unspecified site without mention of myelopathy Iron deficiency anemia, unspecified iron deficiency anemia type documented in this encounter Discontinued Medications Medication Sig Discontinue Reason Start Date End Da te naproxen sodium (ALEVE) 220 mg capsule Take 220 mg by mouth as needed. 04/29/2022 documented as of this encounter Care Teams Sports Betting Manager Relationship Specialty Start Date End Date Rebeca Miller APRN [address] [place] [id number] PCP - General Family Medicine - Primary Care 11/21/21 03/07/24 documented as of this encounter
--- OUTSIDE RECORDS SUMMARY | 2024-03-14 17:57 | XMS_ITS | Encounter Summary ---
Author Organization [facility] Address [address] [place] [address] Care Team Providers Care Licensed Clinician Name Role Phone PaulRebeca George AGUILERA Primary Care Provider [phone] Reason for Visit * Reason Comments Medication Management Humira weekly/plaq uenil 200 mg dayMedication management. Encounter Details Date Type Department Care Team (Late st Contact Info) Description 12/29/2022 8:45 EDT Telemedicine [facility] Rheumatology [address] [place] [address] Venecia Vega MD [address] [facility] [address] [place] [address] Chronic pain of right knee (Primary Dx); Spondyloarthropathy; Injury of left ankle, subsequent encounter Social History Tobacco Use Types Packs/Day Years [...] End Da te hydrOXYchloroQUINE (PLAQUENIL) 200 mg tabletIndications:Spondyl oarthropathy Take 1 Tablet by mouth daily. 90 Tablet 3 12/29/2022 01/20/2023 documented in this encounter Progress Notes * Venecia Vega MD - 12/29/2022 0845 EDT [facility] Video Visit Today's visit was provided through [...] or auxiliary staff: yes. Subjective: Chief Complaint(s): Medication Management (Humira weekly/plaquenil 200 mg day/Medication management.) Seronegative rheumatoid arthritis ?? -did not tolerate methotrexate/arava/remicade/rinvoq -Infliximab lead to headache -on tofacitinib 5 mg bid -Humira since Fall 2021, weekly since July 2022 -hydroxychloroquine 200 mg/week. ? Elevated liver functions -GI consultation NAFL - rx weight loss -neg GI work up /neg ruq us ?? Thrombocytosis -Heme eval ? D/t anemia vs active snra -iron supplementation Strep G pharyngitis -October 2022 HPI: Arabella Ojeda reports she is ok. Has been on weekly Humira and plaquenil No flares. Anemia being treated with iron. Had a fall, ramp was misaligned at a door, fell and has avulsion fracture left ankle about 3 + weeks ago. Seeing ortho MMO for management. Knees were hurt in fall, scratches and bruises. Has been in walking boot. Right knee sore about 2 weeks after fall, xray yovanny showed degenerative changes, no fracture, no effusion. Area is less sore, seems swollen farzaneh when bent at first, now not so bad No flares of joint swelling No medication side effects, injection site reactions have stopped Feels she is doing better overall with her arthritis Able to get around pretty well No recent illness. No specific concerns today. I have reviewed patient's tobacco history: reports that she has never smoked. She has never used smokeless tobacco. I have reviewed current problem list and current medications. Objective: Examination: Home Vitals: There were no vitals taken for this visit. Pertinent exam findings: appears well, mood and affect appropriate and Right knee via video link. Points to medial joint spp line. Flexion extenison intact. No rash visible no wound visible on left knee Data reviewed with patient: Last set of labs neg ASO titer, LABS SCANS [facility] wbc 14, heg 13.6 chronic thrombocytosis 577 From 5m22 crp 0.52 Assessment & Plan: Arabella Ojeda is a 37 y.o. female with a history of seronegative spondyloarthropathy with peripheral arthritis on Humira 40 mg weekly and plaquenil 200 mg/day Recent fall led to avulsion fracture of left ankle and now has mild right Knee pain medial joint line. 1. Chronic pain of right knee anterior likely d/t recent fall abnl gait d/t walking boot on left foot 2. Spondyloarthropathy hydrOXYchloroQUINE (PLAQUENIL) 200 mg tablet Hydroxychloroquine 200 mg/day Humira 40 mg /week 3. Injury of left ankle, subsequent encounter avulsion fracture, rx walking boot, works with pt happened after fall Plaquenil prescribed per current guidelines. Dose 5mg/Kg or less. Current guidelines recommend the following eye exam schedule- Exam sometime during the 1st year of therapy 2017, then 5 years later then every year there after. Due for annual exams, has eye exam fall 2022 I spent a total of 23minutes in discussion with the patient as described in the progress note on this encounter on the the day of this encounter. The following individuals and their role did participate in today's encounter visit: Provider: Venecia Vega MD Patient RTC 6 mo with labs cbc, cmp prior. 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 Reorder 12/28/2022 12/29/2022 predniSONE (DELTASONE) 5 mg tablet Take 3 tabs daily for 5 days, then 2 tabs for 5 days then 1 tab for 5 days. Therapy completed 10/15/2022 12/29/2022 documented as of this encounter Care Teams Licensed Clinician Relationship Specialty Start Date End Date Rebeca Miller APRN [address] [place] [place] [phone] PCP - General Family Medicine - Primary Care 11/21/21 03/07/24 documented as of this encounter
--- OUTSIDE RECORDS SUMMARY | 2024-03-14 17:57 | XMS_ITS | Encounter Summary ---
Author Organization [facility] Address [address] [place] [address] Care Team Providers Care Instructional Interventionist Name Role Phone Rebeca Miller APRN Primary Care Provider Corine Coulter Primary Care Provider [phone] Encounter Details Date Type Department Care Team (Late st Contact Info) Description 03/02/2022 Telephone [facility] [address] [place] [address] Catherine Silverio, RN Social History Tobacco Use Types Packs/Day Years [...] encounter Miscellaneous Notes * Telephone Encounter - Catherine Silverio, RN - 03/02/2022 1105 EDT Stool card results faxed from [facility]- Negative stool cards x3 Patient aware of results. documented in this encounter Plan of Treatment Upcoming Encounters Date Type Department Care Team (Late st Contact Info) Description 03/23/2024 11:15 EDT Telemedicine [facility] Rheumatology [address] [place] [address] Venecia Vega MD [address] [facility] [address] [place] [address] documented as of this encounter Visit Diagnoses Not on filedocumented in this encounter Care Teams Instructional Interventionist Relationship Specialty Start Date End Date Rebeca Miller APRN [address] [place] [address] PCP - General Family Medicine - Primary Care 11/21/21 03/07/24 Corine Coulter [address] [place] [address] PCP - General Family Medicine - Primary Care 03/08/24 documented as of this encounter
--- OUTSIDE RECORDS SUMMARY | 2024-03-14 17:57 | XMS_ITS | Encounter Summary ---
Author Organization [facility] Address [address] [place] [address] Care Team Providers Care Supervisor Type Disk Quality Control Name Role Phone Paul Rebeca George AGUILERA Primary Care Provider [phone] Reason for Visit * Reason Comments Joint Pain Flare up of her left knee persistent pain and swelling. Encounter Details Date Type Department Care Team (Late st Contact Info) Description 11/10/2022 13:00 EDT Telemedicine [facility] Rheumatology [address] [place] [address] Venecia Vega MD [address] [facility] [address] [place] [address] Effusion of left knee (Primary Dx); Ankylosing spondylitis of lumbar region (HCC-CMS); Strep pharyngitis Social History Tobacco Use Types Packs/Day Years [...] - Inhaled Oxygen Concentration - - Weight 113.4 kg (250 lb) 11/10/2022 1324 EDT Height - - Body Mass Index 39.16 04/29/2022 1612 EDT documented in this encounter Functional Status [...] * Patient Instructions* Venecia Vega MD - 11/10/2022 13:00 EDT Labs at [place] Trial of prednisone Message with update end of this week. documented in this encounter Ordered Prescriptions Prescription Sig Dispensed Refills Start Date End Da te predniSONE (DELTASONE) 5 mg tabletIndications:Effusi on of left knee Take 3 Tablets by mouth daily for 5 days, THEN 2 Tablets daily for 5 days, THEN 1 Tablet daily for 5 days. 30 Tablet 11/10/2022 11/25/2022 predniSONE (DELTASONE) 5 mg tabletIndications:Effusi on of left knee Take 3 Tablets by mouth daily for 5 days, THEN 2 Tablets daily for 5 days, THEN 1 Tablet daily for 5 days. 30 Tablet 11/10/2022 11/10/2022 documented in this encounter Progress Notes * Venecia Vega MD - 11/10/2022 1300 EDT [facility] Telephone Visit Today's visit was provided via telephone audio only. The location of the patient: Home The location of the provider: Office Verbal consent: The concept of ???Telemedicine?? has been described to the patient. Patient has been informed of the anticipated benefits and possible risks. Patient understands the information provided regarding telemedicine, has had the opportunity to ask questions about this information, and all questions havebeen answered to patient???s satisfaction. Patient consents for the use of telemedicine in his/her medical care and authorizes the transmission of any relevant medical information to providers and their staff involved in patient???s medical or mental health care. Verbal consent obtained by myself or auxiliary staff: yes. I have determined that an audio-only visit is appropriate due to: Patient request Subjective: Chief Complaint(s): Joint Pain (Flare up of her left knee persistent pain and swelling. ) Seronegative rheumatoid arthritis ?? -did not tolerate methotrexate/arava/remicade/rinvoq -Infliximab lead to headache -on tofacitinib 5 mg bid -Humira since Fall 2021, weekly since July 2022 ?? Overweight ?? Elevated liver functions -GI consultation NAFL - rx weight loss -neg GI work up /neg ruq us ?? Thrombocytosis -Heme eval ? D/t anemia vs active snra Strep G pharyngitis -October 2022 ? HPI: Arabella Martelbrook Interval issues Arabella reports her knee has swollen up she started with a flare up in her ankles and knees bilaterally. Started in October 2022 then went on steroids, tapered to prednisone 5 mg all other joints better then left knee swollen. Had no injury. Has been outside. NO attached ticks. Seen in urgent care, she had an evaluation. She was told her knee is ok but she has swelling Has to struggle to go up and down the stairs. She has pain and swelling. She has been out of doors more, doing more gardening. At the same time she was Strep G pharyngitis DX October 22, fever/sore throat. Treated with penicillin 10/27 She had resolution of her symptoms. She was already having a week or two of pain and swellingin her left knee at that time. She did not have to stop Humira. She has no recent fevers/chills/sweats. Has been feeling ok. I have reviewed patient's tobacco history: reports that she has never smoked. She has never used smokeless tobacco. I have reviewed current problem list and current medications. Objective: Examination: Home Vitals: Wt (!) 113.4 kg (250 lb) BMI 39.16 kg/m?? Pertinent exam findings: speaking in full sentences, no audible wheeze and mood and affect appropriate Data reviewed with patient: last labs, medication list/prior progress notes. Assessment & Plan Arabella Ojeda is a 37 y.o. female with a history of ankylosing spondylitis of lumbar spine and peripheral arthritis on Humira weekly. She has persistent pain and swelling in her left knee with large effusion past month. 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 Need to exclude Lyme as well. Trauma not likely and does not sound septic has no fevers/constitutionalsymptoms at this time. She was just seen in [facility] and examined with neg US, xray Plan Knee effusion ? D/t recent strep infection, flare arthritis, Lyme. No likely septic -labs as ordered to exclude above -consider aspiration -burst of prednisone for flare arthritis -continue Humira weekly -if symptoms continue ? Change to Simponi Aria (Nicki infusion) vs imaging MRI vs synovial biopsy Other Orders Placed This Visit Procedures ??? Lyme Antibody, IgG and IgM ??? Ehrlichia/Anaplasma PCR, Bld, Acute Disease ??? Complete Blood Count and Differential ??? C Reactive Protein (use to detect acute inflammation) ??? Anti Streptolysin O Screen Patient initiated phone contact with the office: yes. Patient is an established patient (parent, guardian) yes. E/M provided within previous 7 days for same medical assessment: no Anticipate E/M service within 24hrs or next available urgent appointment no. This visit was conducted by telephone. A total of 24 minutes was spent on this encounter on the dayof this encounter. documented in this encounter Plan of Treatment Upcoming Encounters Date Type Department Care Team (Late st Contact Info) Description 03/23/2024 11:15 EDT Telemedicine [facility] Rheumatology [address] [place] [address] Venecia Vega MD 130 [facility] [address] [place] [phone] documented as of this encounter Visit Diagnoses Diagnosis Effusion of left knee- Primary Effusion of lower leg joint Ankylosing spondylitis of lumbar region ([facility]) Ankylosing spondylitis Strep pharyngitis Streptococcal sore throat documented in this encounter Discontinued Medications Medication Sig Discontinue Reason Start Date End Da te predniSONE (DELTASONE) 5 mg tabletIndications:Effusi on of left knee Take 3 Tablets by mouth daily for 5 days, THEN 2 Tablets daily for 5 days, THEN 1 Tablet daily for 5 days. 11/10/2022 11/10/2022 documented as of this encounter Care Teams Supervisor Type Disk Quality Control Relationship Specialty Start Date End Date Rebeca Miller APRN [address] [place] [phone] PCP - General Family Medicine - Primary Care 11/21/21 03/07/24 documented as of this encounter
--- OUTSIDE RECORDS SUMMARY | 2024-03-14 17:57 | XMS_ITS | Encounter Summary ---
Author Organization [facility] Address [address] [place] [address] Care Team Providers Care Supervisor Ovens Name Role Phone Rebeca Miller APRN Primary Care Provider [phone] Corine Coulter Primary Care Provider [phone] Reason for Visit * Reason Onset Date Comments Medications Refill 08/14/2022 Encounter Details Date Type Department Care Team (Late st Contact Info) Description 08/14/2022 Telephone [facility] Rheumatology [address] [place], [place] [phone] Venecia Vega MD 130 [facility] [address] [place] [address] Medications Refill Social History Tobacco [...] encounter Miscellaneous Notes * Telephone Encounter - Madhavi Bejarano - 08/14/2022 1200 EST SPRX Request for PA/Funding Drug Name: Humira Next Injection Date: 08/28 RX Insurance: de medicaid Qty Remainin PA Required: Yes Funding Needed: No documented in this encounter Plan of Treatment Upcoming Encounters Date Type Department Care Team (Late st Contact Info) Description 03/23/2024 11:15 EDT Telemedicine [facility] Rheumatology [address] [place], [place] [phone] Venecia Vega MD 130 [facility] [address] [place] [phone] documented as of this encounter Visit Diagnoses Not on filedocumented in this encounter Care Teams Supervisor Ovens Relationship Specialty Start Date End Date Rebeca Miller APRN [address] [place] [address] PCP - General Family Medicine - Primary Care 11/21/21 03/07/24 Corine Coulter [address] [place] [address] PCP - General Family Medicine - Primary Care 03/08/24 documented as of this encounter
--- OUTSIDE RECORDS SUMMARY | 2024-03-14 17:57 | XMS_ITS | Encounter Summary ---
Author Organization [facility] Address [address] [place] [address] Care Team Providers Care Merchandise Appraiser Name Role Phone Rebeca Miller APRN Primary Care Provider [phone] Reason for Visit * Reason Comments Follow-up Seronegative spondyl itis. Pt states Encounter Details Date Type Department Care Team (Late st Contact Info) Description 09/18/2022 13:45 EDT Telemedicine [facility] Rheumatology [address] [place] [address] Venecia Vega MD [address] [facility] [address] [place] [address] Ankylosing spondylitis of multiple sites in spine ([facility]) (Primary Dx); Encounter for long-term (current) use of medications; RUQ pain Social History Tobacco Use Types Packs/Day Years [...] - Inhaled Oxygen Concentration - - Weight 116.1 kg (256 lb) 09/18/2022 1352 EDT Height - - Body Mass Index 40.1 04/29/2022 1612 EDT documented in this encounter [...] * Patient Instructions* Venecia Vega MD - 09/18/2022 13:45 EDT Continue current weekly Humira See you in 3 months labs just prior Continue with dietary changes. documented in this encounter Progress Notes * Venecia Vega MD - 09/18/2022 1345 EDT [facility] [place] Visit Today's visit was provided through [...] auxiliary staff: yes. Subjective: Chief Complaint(s): Follow-up (Seronegative spondylitis. Pt states) HPI: Arabella Ojeda reports she is doing ok today. Side pain improved with gabapentin. Neg RUQ US She has changed diet to lower fat lost weight also feels better. Staying with these changes Inflammation was down on her last labs, correlates with feeling well Recent rx for strep throat, now resolved Walking ok, sleep ok. Feels pretty well at this time. PCP saw for side pain ? Of muscle strain, on gabapentin and doing ok, might reduce dose. I have reviewed patient's tobacco history: reports that she has never smoked. She has never used smokeless tobacco. I have reviewed current problem list and current medications. Objective: Examination: Home Vitals: There were no vitals taken for this visit. Pertinent exam findings: appears well and mood and affect appropriate Data reviewed with patient: prior notes, scanned labs, yovanny ER note Assessment & Plan: Arabella Ojeda is a 37 y.o. female with a history of ankylosing spondylitis on Humira weekly 1. Ankylosing spondylitis of multiple sites in spine ([facility]) ([facility]) Humira weekly continues 2. Encounter for long-term (current) use of medications labs improved 3. RUQ pain US negative, ? muscle related-saw pcp Gabapentin for pain ok to taper RTC 3 mo cbc, cmp, crp prior I spent a total of 21 minutes in discussion with the patient as [...] Telemedicine [facility] Rheumatology [address] [place] [address] Venecia Vega MD [address] [place] [address] [place] [address] documented as of this encounter Visit Diagnoses Diagnosis Ankylosing spondylitis of multiple sites in spine ([facility])- Primary Ankylosing spondylitis Encounter for long-term (current) use of medications Encounter for long-term (current) use of other medications RUQ pain Abdominal pain, right upper quadrant documented in this encounter Care Teams Merchandise Appraiser Relationship Specialty Start Date End Date Rebeca Miller APRN [address] [place] [phone] PCP - General Family Medicine - Primary Care 11/21/21 03/07/24 documented as of this encounter
--- OUTSIDE RECORDS SUMMARY | 2024-03-14 17:57 | XMS_ITS | Encounter Summary ---
Author Organization [facility] Address [address] [place] [address] Care Team Providers Care Bait Tier Name Role Phone Paul Rebeca George AGUILERA Primary Care Provider [phone] Reason for Visit * Reason Comments Medication Management On Humira still so re tolerates the injections. Encounter Details Date Type Department Care Team (Late st Contact Info) Description 06/26/2022 15:45 EST Telemedicine [facility] Rheumatology [address] [place] [address] Venecia Vega MD 130 [facility] [address] [place] [address] Jaw pain (Primary Dx) Social History Tobacco Use Types [...] by mouth 2 times daily. 180 Capsule 3 06/26/2022 02/03/2023 documented in this encounter Progress Notes * Venecia Vega MD - 06/26/2022 1272 EST [place] Video Visit Today's visit was provided through [...] staff: yes. Subjective: Chief Complaint(s): Medication Management (On Humira still sore tolerates the injections./) Seronegative rheumatoid arthritis -did not tolerate methotrexate/arava/remicade/rinvoq -on tofacitinib 5 mg bid since 2020 Overweight Elevated liver functions -GI consultation NAFL - rx weight loss Thrombocytosis -Heme eval ? D/t anemia vs active snra HPI: Arabella Ojeda is here in follow up Tolerates Humira only a few injections, helps Jaw sore, better. Has tmj an dnerve pain, not for surgery Pain in knees/ankles stiffness. Getting better She has no mouth sores Stress better at home. Children do get viral infectios often. Hopeful she will be able to stay on the Humira usp. I have reviewed patient's tobacco history: reports that she has never smoked. She has never used smokeless tobacco. I have reviewed current problem list and current medications. Objective: Examination: Home Vitals: There were no vitals taken for this visit. Pertinent exam findings: appears well, neck supple, no rash on visible skin and mood and affect appropriate Data reviewed with patient: labs, gi note, hematology note, most recent labs, last rheumatology note medication list Assessment & Plan: Arabella Ojeda is a 37 y.o. female with a history of seronegative rheumatoid arthritis on xeljanzand hydroxychloroquine. Now changing to Humira therapy she has worsening jaw pain and carries a diagnosis of TMJ arthritis as well as syndrome Pain management not adequate. Suspect component of trigeminal or similar neurpathic pain Plan Continue Humira, if break though arthritis consider increase to weekly dosing Of of prednisone Jaw pain Nerve related small component of arthritis I spent a total of 23 minutes in discussion with the patient as described in the progress note on this encounter on the the day of this encounter. The following individuals and their role did participate in today's encounter visit: Provider: Venecia Vega MD Patient Started with video, transition to telephone due to video dysfunction. documented in this encounter Plan of Treatment Upcoming Encounters Date Type Department Care Team (Late st Contact Info) Description 03/23/2024 11:15 EDT Telemedicine [facility] Rheumatology [address] [place] [address] Venecia Vega MD 130 [facility] [address] [place] [address] documented as of this encounter Visit Diagnoses Diagnosis Jaw pain- Primary documented in this encounter Discontinued Medications Medication Sig Discontinue Reason Start Date End Da te gabapentin (NEURONTIN) 300 mg capsule Take 1 Capsule by mouth 3 times daily. Reorder 05/15/2022 06/26/2022 documented as of this encounter Care Teams Bait Tier Relationship Specialty Start Date End Date Rebeca Miller APRN [address] [place] [address] PCP - General Family Medicine - Primary Care 11/21/21 03/07/24 documented as of this encounter
--- OUTSIDE RECORDS SUMMARY | 2024-03-14 17:57 | XMS_ITS | Encounter Summary ---
Author Organization [facility] Address [address] [place] [address] Care Team Providers Care Pattern Marking Supervisor Name Role Phone Paul Rebeca George AGUILERA Primary Care Provider [phone] Reason for Visit * Reason Onset Date Comments Other 10/15/2022 Inlammation knee s/ankles Encounter Details Date Type Department Care Team (Late st Contact Info) Description 10/15/2022 Telephone [facility] Rheumatology [address] [place] [address] Venecia Vega MD 130 [facility] [address] [place] [address] Other (Inlammation knees/ankles) Social History Tobacco Use Types Packs/Day Years [...] End Da te predniSONE (DELTASONE) 5 mg tablet Take 3 tabs daily for 5 days, then 2 tabs for 5 days then 1 tab for 5 days. 30 Tablet 10/15/2022 12/29/2022 documented in this encounter Miscellaneous Notes * Addendum Note - Pk Stringer RN - 10/15/2022 1651 EDTAddended by: PK STRINGER on: 10/15/2022 16:51 Modules accepted: Orders * Telephone Encounter - Pk Stringer RN - 10/15/2022 1646 EDT Prednisone prescription sent to [facility] and patient notified with appreciation expressed. * Telephone Encounter - Pk Stringer RN - 10/15/2022 1446 EDT Arabella returned call and stated that she would like to try a course of prednisone as it has been since 05/2022 that she took one and that was helpful for her joint pain then. * Telephone Encounter - Pk Stringer RN - 10/15/2022 0938 EDT LM asking Arabella to call my direct line so I can ask if she feels a course of prednisone would be helpful. * Telephone Encounter - Lesly Elizabeth - 10/15/2022 0842 EDT Pt reports she has been haviing some inflammation in knees and ankles that started almost 1 week ago. Unsure if this could be weather related or not. She has been alternating using Tylenol and Ibuprofen and it seems to be helping a little but not a whole lot. She is also still on Humira once/week. Please advise. documented in this encounter Plan of Treatment Upcoming Encounters Date Type Department Care Team (Late st Contact Info) Description 03/23/2024 11:15 EDT Telemedicine [facility] Rheumatology [address] [place] [address] Venecia Vega MD [address] [facility] [address] [place] [address] documented as of this encounter Visit Diagnoses Not on filedocumented in this encounter Care Teams Pattern Marking Supervisor Relationship Specialty Start Date End Date Rebeca Miller APRN [address] [place] [phone] PCP - General Family Medicine - Primary Care 11/21/21 03/07/24 documented as of this encounter
--- OUTSIDE RECORDS SUMMARY | 2024-03-14 17:57 | XMS_ITS | Encounter Summary ---
Author Organization [facility] Address [address] [place] [address] Care Team Providers Care Printer'S Assistant Name Role Phone Paul Rebeca George AGUILERA Primary Care Provider Reason for Visit * Reason Comments Follow-up Ankylosing spondylit is. Encounter Details Date Type Department Care Team (Late st Contact Info) Description 01/20/2023 8:45 EDT Telemedicine [facility] [place] [address] [place], [place] [phone] Venecia Vega MD 130 [facility] [address] [place] [address] Vaginal yeast infection (Primary Dx); Ankylosing spondylitis of sacral region (HCC-CMS); Ankylosing spondylitis of multiple sites in spine (HCC-CMS); High risk medication use Social History Tobacco Use Types Packs/Day Years [...] - Inhaled Oxygen Concentration - - Weight - - Height 170.2 cm (5' 7) 01/20/2023 0846 EDT Body Mass Index - - documented in this encounter Functional Status Functional [...] End Da te hydrOXYchloroQUINE (PLAQUENIL) 200 mg tabletIndications:Anky losing spondylitis of sacral region (HCC-CMS) Take 1 Tablet by mouth 2 times daily. 180 Tablet 3 01/20/2023 02/02/2023 fluconazole (DIFLUCAN) 150 mg tabletIndications:Vagi nal yeast infection 1 tablet for vaginal yeast infection may repeat x 1 for recurrence after 72 hours 2 Tablet 01/20/2023 07/23/2023 documented in this encounter Progress Notes * Venecia Vega MD - 01/20/2023 0845 EDT [facility] [place] Today's visit was provided through [...] auxiliary staff: yes. Subjective: Chief Complaint(s): Follow-up (Ankylosing spondylitis.) HPI: Arabella Ojeda reports she had been doing well until a few months ago. She had a recent yeast infection. Has seen her primary care doctor, needed treatment and was seen. By pcp. DX confirmed. Had a flare just prior to her yeast infection. She wondered if the infection caused her to have a flare up of the arthritis. Has been having some pain and stiffness, her wrists are sore. Whole body flare up. No missed doses of Humira takes weekly Has flare up of arthritis in association with infections Worried as she wants to try to work, however, has unpredicted flares of arthritis Yeast infect dx by pcp. BS were checked states her hgAic was ok, not dm no hx gestational dm Doing ok now except am stifffness feet/knees/hands > 1 hour. Not at goal Some swelling ok with medication increase ROS No weight change no mouth sores/no rash. I have reviewed patient's tobacco history: reports that she has never smoked. She has never used smokeless tobacco. I have reviewed current problem list and current medications. Objective: Examination: Home Vitals: Ht 170.2 cm (67) BMI 39.16 kg/m?? Pertinent exam findings: appears well, neck supple and mood and affect appropriate Data reviewed with patient: labs from 11/18 showing bs 166 CRP elevated Her med list/prior notes/heme notes Assessment & Plan: Arabella Ojeda is a 37 y.o. female with a history of seronegative spondyloathropathy. Recent flare of arthritis following vaginal candidiasis. Notes flares coincide with infections which is c/w dx of spondyloarthropathy 1. Vaginal yeast infection fluconazole (DIFLUCAN) 150 mg tablet prn fluoconazole BS control/managed by pcp does not have dx of DM 2. Ankylosing spondylitis of sacral region (HCC-CMS) hydrOXYchloroQUINE (PLAQUENIL) 200 mg tablet Hydroxychloroquine 200 mm increase to bid Humira 40 mg /week 3. Ankylosing spondylitis of multiple sites in spine (HCC-CMS) 4. High risk medication use eye exam up todate Humira weekly cbc,cmp crp prior to next appt. I spent a total of 23 minutes [...] EDT Telemedicine [facility] Rheumatology [address] [place] [address] Venecia Vega MD 130 [facility] [address] [place] [phone] documented as of this encounter Visit Diagnoses Diagnosis Vaginal yeast infection- Primary Candidiasis of vulva and vagina Ankylosing spondylitis of sacral region ([facility]) Ankylosing spondylitis of multiple sites in spine ([facility]) Ankylosing spondylitis High risk medication use Encounter for long-term (current) use of other medications documented in this encounter Discontinued Medications Medication Sig Discontinue Reason Start Date End Da te hydrOXYchloroQUINE (PLAQUENIL) 200 mg tabletIndications:Spondy loarthropathy Take 1 Tablet by mouth daily. Reorder 12/29/2022 01/20/2023 documented as of this encounter Care Teams Printer'S Assistant Relationship Specialty Start Date End Date Rebeca Miller APRN [address] [place] [phone] PCP - General Family Medicine - Primary Care 11/21/21 03/07/24 documented as of this encounter
--- OUTSIDE RECORDS SUMMARY | 2024-03-14 17:57 | XMS_ITS | Encounter Summary ---
Author Organization [facility] Address [address] [place] [address] Care Team Providers Care Artificial Flowers Dyer Name Role Phone PaulRebeca George AGUILERA Primary Care Provider Reason for Visit * Reason Onset Date Comments Medications Refill 03/16/2022 Xeljanz Encounter Details Date Type Department Care Team (Late st Contact Info) Description 03/16/2022 Refill [facility] Rheumatology [address] [place], [place] [id number] Venecia Vega MD 130 [facility] [address] [place] [address] Medications Refill (Xeljanz) Social History Tobacco Use Types Packs/Day Years [...] Dispensed Refills Start Date End Da te tofacitinib (XELJANZ) 5 mg tabletIndications:rheumat oid arthritis Take 1 Tablet by mouth 2 times daily. 60 Tablet 2 03/16/2022 05/08/2022 documented in this encounter Progress Notes * Cortney Hopper RPH - 03/16/2022 1011 EDT Renewal of Xeljanz (tofacitinib) is required for continued use; order sent to [facility] for dispensing.3 month order sent as patient has been off and on therapy due to recurrent infections (UTI), may need to consider alternate therapy. Follow-up visit scheduled with Dr. Vega on 05/15/22. Cortney Hopper PharmD 03/16/2022 documented in this encounter Plan of Treatment Upcoming Encounters Date Type Department Care Team (Late st Contact Info) Description 03/23/2024 11:15 EDT Telemedicine [facility] Rheumatology [address] [place] [address] Venecia Vega MD [address] [facility] [address] [place] [phone] documented as of this encounter Visit Diagnoses Diagnosis Seronegative rheumatoid arthritis (HCC-CMS)- Primary Rheumatoid arthritis documented in this encounter Discontinued Medications Medication Sig Discontinue Reason Start Date End Da te tofacitinib (XELJANZ) 5 mg tabletIndications:rheuma toid arthritis Take 1 Tablet by mouth 2 times daily. Reorder 09/23/2021 03/16/2022 documented as of this encounter Care Teams Artificial Flowers Dyer Relationship Specialty Start Date End Date Rebeca Miller APRN [address] [place] [address] PCP - General Family Medicine - Primary Care 11/21/21 03/07/24 documented as of this encounter
--- OUTSIDE RECORDS SUMMARY | 2024-03-14 17:57 | XMS_ITS | Encounter Summary ---
Author Organization [facility] Address [address] [place] [address] Care Team Providers Care Manager Transplant Name Role Phone Rebeca Miller APRN Primary Care Provider Corine Coulter Primary Care Provider [phone] Reason for Visit * Reason Onset Date Comments Prior Auth, Medication 11/13/2022 Humira (r e-auth) Encounter Details Date Type Department Care Team (Late st Contact Info) Description 11/13/2022 Telephone [facility] Rhe[place] [address] [place] [address] Venecia Vega MD 130 [facility] [address] [place] [address] Prior Auth, Medication (Humira (re-auth)) Social History Tobacco Use Types Packs/Day Years [...] encounter Miscellaneous Notes * Telephone Encounter - Vivi Alanis - 11/16/2022 1056 EDT Prior Authorization Approval Medication: Humira 40mg/0.4mL Pen q 7 days Insurance Name: VTM Insurance Type: [place] Medicaid Approval Dates: 11/16/22--11/17/23 Authorization Number: [id number] Benefits Information: Required Pharmacy: [facility] able to fill?: YES Additional Info/Other Notes: Prior Authorization Submission Process - Urgent Re-Auth Medication: Humira 40mg/0.4mL Pen q 7 days Insurance: VTM Insurance Type: [place] Medicaid Date PA Request Received: 11/13/22 PA Submission Date: 11/16/22 Faxed: VTM Notes: Submitted by: Vivi Camarillo Phone: [phone] * Telephone Encounter - Edward Buenrostro - 11/13/2022 1333 EDT SPRX Request for PA/Funding Drug Name: Humira Next Injection Date: Unknown RX Insurance: [place] Medicaid Qty Remaining: Unknown PA Required: Yes Funding Needed: N/A documented in this encounter Plan of Treatment Upcoming Encounters Date Type Department Care Team (Late st Contact Info) Description 03/23/2024 11:15 EDT Telemedicine [facility] Rheumatology [address] [place] [address] Venecia Vega MD 130 [facility] [address] [place] [address] documented as of this encounter Visit Diagnoses Not on filedocumented in this encounter Care Teams Manager Transplant Relationship Specialty Start Date End Date Rebeca Miller, WILLY [address] [place] [address] PCP - General Family Medicine - Primary Care 11/21/21 03/07/24 Corine Coulter [address] [place] [address] PCP - General Family Medicine - Primary Care 03/08/24 documented as of this encounter
--- OUTSIDE RECORDS SUMMARY | 2024-03-14 17:57 | XMS_ITS | Encounter Summary ---
Author Organization [facility] Address [address] [place] [address] Care Team Providers Care Spring Former Name Role Phone Rebeca Miller APRN Primary Care Provider Corine Coulter Primary Care Provider [phone] Encounter Details Date Type Department Care Team (Late st Contact Info) Description 11/19/2022 Lab Requisition [facility] Pathology & Laboratory Medicine - [facility] [address] [place] [address] Outr Resulting Lab, Provider Social History Tobacco Use Types Packs/Day Years [...] Contact Info) Description 03/23/2024 11:15 EDT Telemedicine [facility] Rheumatology [address] [place] [address] Venecia Vega MD 130 [facility] [address] [place] [address] documented as of this encounter Procedures Procedure Name Priority Date/Time Associated Diagnosis Comments LYME AB Routine 11/18/2022 9:40 EDT documented in this encounter Results * LYME AB (11/18/2022 9:40 EDT) Lyme Ab Negative Negative 11/20/2022 10:34 EDT [facility] Blood VENOUS BLOOD / Unknown 11/18/2022 9:40 EDT 11/19/2022 17:24 EDT Provider Outr Resulting Lab IMMUNOLOGY A ND SEROLOGY ORDERABLES [facility] [address] [place] [address] documented in this encounter Visit Diagnoses Not on filedocumented in this encounter Care Teams Spring Former Relationship Specialty Start Date End Date Rebeca Miller APRN [address] [place] [phone] PCP - General Family Medicine - Primary Care 11/21/21 03/07/24 Corine Coulter [address] [place] [phone] PCP - General Family Medicine - Primary Care 03/08/24 documented as of this encounter
--- OUTSIDE RECORDS SUMMARY | 2024-03-14 17:57 | XMS_ITS | Encounter Summary ---
Author Organization [facility] Address [address] [place] [address] Care Team Providers Care Climatology Professor Name Role Phone Paul Rebeca Vazquez APRN Primary Care Provider Reason for Visit * Reason Onset Date Comments Medications Refill 12/28/2022 Encounter Details Date Type Department Care Team (Late st Contact Info) Description 12/28/2022 Refill [facility] Rheumatology [address] [place], [place] [phone] Venecia Vega MD 130 [facility] [address] [place] [address] Medications Refill Social History Tobacco [...] 1 Tablet by mouth daily. 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
--- OUTSIDE RECORDS SUMMARY | 2024-03-14 17:57 | XMS_ITS | Encounter Summary ---
Author Organization [facility] Address [address] [place] [address] Care Team Providers Care Director Call Name Role Phone PaulRebeca George AGUILERA Primary Care Provider [phone] Encounter Details Date Type Department Care Team (Late st Contact Info) Description 12/10/2022 Specialty Pharmacy [facility] [address] [place] [address] [place], [facility] Social History Tobacco Use Types Packs/Day [...] Contact Info) Description 03/23/2024 11:15 EDT Telemedicine [facility] Rheumatology [address] [place] [address] Venecia Vega MD 130 [facility] [address] [place] [address] documented as of this encounter Visit Diagnoses Not on filedocumented in this encounter Care Teams Director Call Relationship Specialty Start Date End Date Rebeca Miller APRN [address] [place] [phone] PCP - General Family Medicine - Primary Care 11/21/21 03/07/24 documented as of this encounter
--- OUTSIDE RECORDS SUMMARY | 2024-03-14 17:57 | XMS_ITS | Encounter Summary ---
Author Organization [facility] Address [address] [place] [address] Care Team Providers Care Air Pollution Compliance Inspector Name Role Phone PaulRebeca George AGUILERA Primary Care Provider [phone] Encounter Details Date Type Department Care Team (Late st Contact Info) Description 07/08/2022 Specialty Pharmacy [facility] Ambulatory Pharmacy - [facility] [address] [place] [address] [place], [facility] Social History Tobacco Use Types Packs/Day [...] as of this encounter Progress Notes * Celeste Velazquez - 07/08/2022 0942 EST Rx received 07/21/22, RTS until 08/01/22--profiled. documented in this encounter Plan of Treatment Upcoming Encounters Date Type Department Care Team (Late st Contact Info) Description 03/23/2024 11:15 EDT Telemedicine [facility] Rheumatology [address] [place] [id number] Venecia Vega MD [address] [facility] [address] [place] [phone] documented as of this encounter Visit Diagnoses Not on filedocumented in this encounter Care Teams Air Pollution Compliance Inspector Relationship Specialty Start Date End Date Rebeca Miller APRN [address] [place] [phone] PCP - General Family Medicine - Primary Care 11/21/21 03/07/24 documented as of this encounter
--- OUTSIDE RECORDS SUMMARY | 2024-03-14 17:57 | XMS_ITS | Encounter Summary ---
Author Organization [facility] Address [address] [place] [address] Care Team Providers Care Batch Maker Name Role Phone Rebeca Miller APRN Primary Care Provider [phone] Corine Coulter Primary Care Provider [phone] Reason for Visit * Reason Onset Date Comments Prior Auth, Medication 07/15/2022 Humira 40 mg/0.4mL Pen (Q 7 days) Encounter Details Date Type Department Care Team (Late st Contact Info) Description 07/15/2022 Refill [facility] Rheumatology [address] [place] [address] Venecia Vega MD 130 [facility] [address] [place] [phone] Prior Auth, Medication (Humira 40mg/0.4mL Pen (Q 7 days)) Social History Tobacco Use Types Packs/Day Years [...] e rheumatoid arthritis ([facility]) Inject 0.4 mL into the skin every 7 days. 4 Each 5 07/22/2022 01/08/2023 adalimumab (HUMIRA PEN) 40 mg/0.8 mL pen kitIndications:Seronegativ e rheumatoid arthritis ([facility]) Inject 1 Pen into the skin every 7 days. 4 Each 5 07/20/2022 07/22/2022 documented in this encounter Miscellaneous Notes * Telephone Encounter - Ester Spears RPH - 07/22/2022 1121 EST Humira prescription updated for Humira 40 mg/0.4 mL CF pens subcutaneous every 7 days and pended toDr. Vega for cosign. Ester Spears, PharmD, BCPS (covering for [place]) Pharmacist Ambulatory Clinician - Rheumatology 07/22/2022 * Telephone Encounter - Barbara Rosas - 07/15/2022 1241 EST Prior Authorization Approval Medication: Humira 40mg/0.4mL Pen (Q 7 days) Insurance Name:VTM Insurance Type: [place] Approval Dates: 07/20/2022 to 10/18/2022 Authorization Number: [id number] Tracking Number: [id number] Benefits Information: VTM [facility] able to fill? : Yes Required Pharmacy: [facility] Additional Info/Other Notes: An additional limited 3 month approval is authorized for increased dose. Continued approvals are contingent upon a positive response to therapy documented in the clinicalnotes. Please provide a copy of clinical notes with next PA. Prior Authorization Submission Process - Urgent Medication: Humira 40mg/0.4mL Pen (Q 7 days) Insurance: VTM Insurance Type: [place] Medicaid Date PA Request Received: 07/15/2022 PA Submission Date: 07/20/2022 CMM Monahan: FAX Notes: Submitted by: Barbara Phone: [phone] documented in this encounter Plan of Treatment Upcoming Encounters Date Type Department Care Team (Late st Contact Info) Description 03/23/2024 11:15 EDT Telemedicine [facility] Rheumatology [address] [place] [address] Venecia Vega MD [address] [facility] [address] [place] [phone] documented as of this encounter Visit Diagnoses Diagnosis Seronegative rheumatoid arthritis (HCC-CMS)- Primary Rheumatoid arthritis documented in this encounter Discontinued Medications Medication Sig Discontinue Reason Start Date End Da te adalimumab (HUMIRA,CF, PEN) 40 mg/0.4 mL penIndications:Seronegati ve spondylitis (HCC-CMS) Inject 0.4 mL into the skin every 14 days. Dose adjustment 05/08/2022 07/20/2022 adalimumab (HUMIRA PEN) 40 mg/0.8 mL pen kitIndications:Seronegati ve rheumatoid arthritis (HCC-CMS) Inject 1 Pen into the skin every 7 days. 07/20/2022 07/22/2022 documented as of this encounter Care Teams Batch Maker Relationship Specialty Start Date End Date Rebeca Miller APRN [address] [place] [phone] PCP - General Family Medicine - Primary Care 11/21/21 03/07/24 Corine Coulter [address] [place] [phone] PCP - General Family Medicine - Primary Care 03/08/24 documented as of this encounter
--- OUTSIDE RECORDS SUMMARY | 2024-03-14 17:57 | XMS_ITS | Encounter Summary ---
Author Organization [facility] Address [address] [place] [address] Care Team Providers Care Tour Conductor Name Role Phone PaulRebeca George AGUILERA Primary Care Provider [phone] Encounter Details Date Type Department Care Team (Late st Contact Info) Description 07/22/[address] [facility] Ambulatory Pharm[facility] - [facility] [address] [place] [address] [place], [facility] Social History Tobacco Use Types [...] Contact Info) Description 03/23/2024 11:15 EDT Telemedicine [facility] Rheumatology [address] [place] [address] Venecia Vega MD [address] [facility] [address] [place] [address] documented as of this encounter Visit Diagnoses Not on filedocumented in this encounter Care Teams Tour Conductor Relationship Specialty Start Date End Date Rebeca Miller APRN [address] [place] [phone] PCP - General Family Medicine - Primary Care 11/21/21 03/07/24 documented as of this encounter
--- OUTSIDE RECORDS SUMMARY | 2024-03-14 17:57 | XMS_ITS | Encounter Summary ---
Author Organization [facility] Address [address] [place] [address] Care Team Providers Care Adolescent Counselor Name Role Phone Rebeca Miller APRN Primary Care Provider [phone] Corine Coulter Primary Care Provider [phone] Reason for Visit * Reason Onset Date Comments Appointment Related 12/29/2022 Encounter Details Date Type Department Care Team (Late st Contact Info) Description 12/29/2022 Telephone [facility] [place] [address] [place], [place] [phone] Venecia Vega MD 130 [facility] [address] [place] [address] Appointment Related Social History Tobacco Use Types Packs/Day Years [...] encounter Miscellaneous Notes * Telephone Encounter - Sarina Hester - 12/29/2022 0936 EDT Pt is scheduled for 6 month follow up. Should she get her labs done before the 6 month appt? Has been doing about every 3 months. Can respond to Pt via [employer] portal. documented in this encounter Plan of Treatment Upcoming Encounters Date Type Department Care Team (Late st Contact Info) Description 03/23/2024 11:15 EDT Telemedicine [facility] Rheumatology [address] [place] [phone] Venecia Vega MD [address] [place] [address] [address] [place] [address] documented as of this encounter Visit Diagnoses Not on filedocumented in this encounter Care Teams Adolescent Counselor Relationship Specialty Start Date End Date Rebeca Miller APRN [address] [place] [address] PCP - General Family Medicine - Primary Care 11/21/21 03/07/24 Corine Coulter [address] [place] [address] PCP - General Family Medicine - Primary Care 03/08/24 documented as of this encounter
--- OUTSIDE RECORDS SUMMARY | 2024-03-14 17:57 | XMS_ITS | Encounter Summary ---
Author Organization [facility] Address [address] [place] [address] Care Team Providers Care Asbestos Worker Name Role Phone PaulRebeca George AGUILERA Primary Care Provider Encounter Details Date Type Department Care Team (Late st Contact Info) Description 10/13/2022 Specialty Pharmacy [facility] Ambulatory Pharmacy - [facility] [address] [place] [address] [place], [facility] Social History Tobacco Use Types [...] Contact Info) Description 03/23/2024 11:15 EDT Telemedicine [facility] Rheumatology [address] [place] [address] Venecia Vega MD 130 [facility] [address] [place] [address] documented as of this encounter Visit Diagnoses Not on filedocumented in this encounter Care Teams Asbestos Worker Relationship Specialty Start Date End Date Rebeca Miller APRN [address] [place] [phone] PCP - General Family Medicine - Primary Care 11/21/21 03/07/24 documented as of this encounter
--- OUTSIDE RECORDS SUMMARY | 2024-03-14 17:57 | XMS_ITS | Encounter Summary ---
Author Organization [facility] Address [address] [place] [address] Care Team Providers Care Circuit Clerk Name Role Phone PaulRebeca George AGUILERA Primary Care Provider [phone] Encounter Details Date Type Department Care Team (Late st Contact Info) Description 03/12/2022 Specialty Pharmacy [facility] - [facility] [address] [place] [address] [place], [facility] Social History Tobacco Use Types Packs/Day Years [...] as of this encounter Progress Notes * Soco Mckinney - 03/12/2022 1142 EDT [facility] Specialty Pharmacy Delivery Information Hours: Wednesday-Wednesday 8:30am - 5:00pm *Pharmacist available concert or lecture hall manager 25/01 Delivery Service: [employer] Delivery Window: None Specified Date of Delivery: 04/03/22 Tracking # : [id number] documented in this encounter Plan of Treatment Upcoming Encounters Date Type Department Care Team (Late st Contact Info) Description 03/23/2024 11:15 EDT Telemedicine [facility] Rheumatology [address] [place], [place] [address] Venecia Vega MD 130 [facility] [address] [place] [address] documented as of this encounter Visit Diagnoses Not on filedocumented in this encounter Care Teams Circuit Clerk Relationship Specialty Start Date End Date Rebeca Miller APRN [address] [place] [phone] PCP - General Family Medicine - Primary Care 11/21/21 03/07/24 documented as of this encounter
--- OUTSIDE RECORDS SUMMARY | 2024-03-14 17:57 | XMS_ITS | Encounter Summary ---
Author Organization [facility] Address [address] [place] [address] Care Team Providers Care Plant Equipment Engineer Name Role Phone PaulRebeca juan George AGUILERA Primary Care Provider [phone] Reason for Visit * Reason Comments Telemedicine Video Visit Encounter Details Date Type Department Care Team (Late st Contact Info) Description 08/24/2022 14:[address] [facility] Adult Hematology & Oncology [address] [place] [id number] Yoly Valencia MD [address] [place] [address] Thrombocytosis (Primary Dx); Lymphocytosis; Right upper quadrant abdominal pain Social History Tobacco Use Types Packs/Day [...] as of this encounter Progress Notes * Joan Bella LPN - 08/24/2022 1430 EST Patient reports that for the past week and a half she has been having some right-sided pain 2/10. She noticed that the pain gets worse when she lies down and at night it radiates to her mid back getting up to 8/10 pain. Patient rooming was completed remotely by JOAN BELLA LPN in compliance with efforts to reduceexposure to COVID19. Patient pharmacy verified: Yes - Updated primary pharmacy to [facility] Patient insurance verified: Yes Verbal consent given by patient to continue with telemedicine visit: Yes 08/24/22 14:06 * Yoly Valencia MD - 08/24/2022 1430 EST [facility] Telemedicine/Audio Note Arabella Clinton Ojeda :1985 Age: 37 y.o. Date of Service: 08/24/2022 I am conducting today's visit by telemedicine due to the COVID-19 pandemic, and by the recommendations from the [facility] to minimize patient exposure to our medical center. All patients who have routine follow up visits or are not on active cancer treatments will have visits postponed for an appropriate interval (as decided by the physician) or these visits may be offer ed by telemedicine or phone consultation. This consultation has been reviewed by appropriate clinical staff and has been deemed appropriate for a phone consultation. The patient consents to a phone visit, is at home/work, and I, their MD, am in a private area. The location of the patient: Home Time of telemedicine initiation:2:30 Time of telemedicine conclusion: 2:50 The location of the provider: Office private area. Verbal consent: The concept of ???Telemedicine?? has been described to the patient.? Patient has been informed of the anticipated benefits and possible risks.? Patient understands the information provided regardingtelemedicine, has had the opportunity to ask questions about this information, and all questions have been answered to patient???s satisfaction. Patient consents for the use of telemedicine in his/her medical care and authorizes the transmission of any relevant medical information to providers and their staff involved in patient???s medical or mental health care. The concept of ???Telemedicine?? has been described [...] in patient???s medical or mental health care. I have determined that an audio-only visit is appropriate due to: Patient request Internet access or other technical issue Physical exam not indicated based on available information Patient request due to travel and safety concerns Other HPI: 37 years old female with ankylosing spondylitis who has been seen in the clinic in the past for thrombocytosis as well as as slight iron deficiency. We are conducting this visit today at the patient request via Zoom. She complaints of RUQ pain that started few weeks ago , occasional nausea as well. She does have history of gallstones. Chief Complaint Patient presents with ??? Telemedicine Video Visit Subjective: RUQ abdominal pain ROS: Review of Systems Constitutional: Positive for malaise/fatigue. HENT: Negative. Eyes: Negative. Cardiovascular: Negative. Gastrointestinal: Positive for abdominal pain and nausea. Genitourinary: Negative. Musculoskeletal: Negative. Skin: Negative. Neurological: Negative. Endo/Heme/Allergies: Negative. Psychiatric/Behavioral: Negative. I have reviewed patient's past medical history, past surgical history, social and family history. Past Medical History: Diagnosis Date ??? Lyme disease 07/07/2019 Treatment with naturopathy Antibiotics. Supplements and tinctures. Therapy from 02/19 to 06/22 Dr Wyatt at [facility]. ??? Obesity (BMI 30-39.9) ??? Otitis media, recurrent, bilateral ??? Seronegative spondyloarthropathy 07/07/2019 ??? Seronegative spondyloarthropathy 07/07/2019 Past Surgical History: Procedure Laterality Date ??? DILATION AND CURETTAGE OF UTERUS 03/2005 for S[facility] ??? TUBAL LIGATION Bilateral 07/2016 ??? WRIST SURGERY Left 2001 ([place]) ??? WRIST SURGERY Left 03/2007 (ganglion cyst) ??? WRIST SURGERY Left 2008 (cyst) Social History Tobacco Use ??? Smoking status: Never ??? Smokeless tobacco: Never Vaping Use ??? Vaping Use: Never used Substance Use Topics ??? Alcohol use: Not Currently ??? Drug use: Never Social History Social History Narrative Lives in [place], [place] with her 4 children. 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 Family History Problem Relation Age of Onset ??? Cancer Mother ??? Thyroid Disease Maternal Grandmother ??? Cancer Paternal Grandfather ??? Inflammatory Bowel Disease Sister I have reviewed allergies No Known Allergies I have reviewed current medications Current Outpatient Medications Medication Sig Dispense Refill Last Dose ??? adalimumab (HUMIRA,CF, PEN) 40 mg/0.4 mL pen Inject 0.4 mL into the skin every 7 days. 4 Each 5Taking ??? mdufhzu-bltycaehewsot-krxvhveo (EXCEDRIN MIGRAINE) 250-250-65 mg per tablet Take 1 Tablet by mouth every 12 hours as needed for Headaches. Taking ??? cefpodoxime (VANTIN) 200 mg tablet (Patient not taking: Reported on 08/24/2022) Not Taking ??? ferrous sulfate 325 mg (65 mg iron) tablet Take 325 mg by mouth every 48 hours. Taking ??? fluticasone propionate (FLONASE) 50 mcg/actuation nasal spray Instill 1 [place] into both nostrils daily. 1 Bottle 2 Taking ??? gabapentin (NEURONTIN) 300 mg capsule Take 1 Capsule by mouth 2 times daily. 180 Capsule 3 Taking ??? hydrOXYchloroQUINE (PLAQUENIL) 200 mg tablet Take 1 Tablet by mouth daily. 90 Tablet 1 Taking ??? loratadine (CLARITIN) 10 mg tablet Take 10 mg by mouth daily. Taking ??? omeprazole (PRILOSEC) 40 mg capsule Take 40 mg by mouth daily. Taking ??? PAXLOVID, EUA, 300 mg (150 mg x 2)-100 mg tablet TAKE 2 NIRMATRELVIR TABLETS AND 1 RITONAVIR TABLET TOGETHER BY MOUTH TWICE DAILY FOR 5 DAYS (Patient not taking: Reported on 08/24/2022) Not Taking ??? Sodium Fluoride 1.1 % gel Taking No current facility-administered medications for this visit. Objective: No data found. There were no vitals taken for this visit. Examination: By history ECOG performance status: Maintaining all activities of daily living. General: Comfortable, cooperative and in no apparent distress NEURO: Alert and oriented x 3; Data reviewed with patient: Results for orders placed or performed in visit on 08/20/22 COMPREHENSIVE METABOLIC PANEL (CMP) Result Value Ref Range GFR, Calculated, External 96.06 60 Glucose, Serum, External 108 (A) 74 - 106 Albumin, External 3.8 3.4 - 5.0 Total Alkaline Phosphatase, External 89 46 - 116 ALT, External 45 14 - 59 AST, External 32 15 - 37 BUN, External 11 7 - 18 Calculated Calcium, External Calcium, External 8.9 8.5 - 10.1 Chloride, External 105 98 - 107 CO2, External 26.9 21.0 - 32.0 Creatinine, External 0.8 0.55 - 1.02 Fasting?, External Potassium, External 3.6 3.5 - 5.1 Sodium, External 140 136 - 145 Total Protein, External 7.5 6.4 - 8.2 Bilirubin, Total, External 0.3 0.2 - 1.0 COMPLETE BLOOD COUNT AND DIFFERENTIAL Result Value Ref Range WBC, External 10.47 4.4 - 10.8 RBC, External 4.51 3.93 - 5.22 Hemoglobin, External 13.2 11.2 - 15.7 HCT, External 41.0 36.0 - 46.0 MCV, External 91 80 - 95 MCH, External 29.3 27.0 - 33.0 MCHC, External 32.2 32.0 - 36.0 PLT, External 577 (A) 130 - 400 RDW-CV, External 14.0 11.7 - 14.6 Neutrophils, External 57.2 Lymphocytes, External 30.6 Monocytes, External 6.9 Eosinophils, External 4.4 Basophils, External 0.5 ABS Neutrophils, External 6.00 1.2 - 6.7 ABS Lymphs, External 3.20 1.2 - 3.4 ABS Monocytes, External 0.72 0.1 - 0.8 ABS Eosinophils, External 0.46 0.0 - 0.7 ABS Basophils, External 0.05 0.0 - 0.2 C REACTIVE PROTEIN Result Value Ref Range C-Reactive Protein, External 1.25 (A) 0.0 - 0.3 mg/dL Assessment & Plan: 37 years old female with thrombocytosis thought to be secondary to ankylosing spondylitis. Her platelet count remains very stable and slughtly elevated. At this point I do not believe that additionalfollow up and work up is indicated. She would prefer to have her PCP check her labs and needed she would return to see us. Her anemia have resolved and I advised her to continue with PO iron every other day. Regarding her abdominal pain I recommended an abdominal US. She stated she will review the results with her PCP. Patient initiated phone contact with the office Yes Is an established patient (parent, guardian) Yes E/M provided within previous 7 days for same Assessment No Anticipate E/M service within 24hrs or next available urgent appointment No I spent a total of 20 minutes on the date of this encounter which includes time with the patient, time reviewing medical records and reviewing imaging reports and laboratory results, time updating the chart information, and time composing this note. Yoly Valencia MD [facility] CC: Primary Care Provider: Rebeca Miller [address] [place] [phone] documented in this encounter Plan of Treatment Upcoming Encounters Date Type Department Care Team (Late st Contact Info) Description 03/23/2024 11:[address] [facility] Rheumatology [address] [place], [place] [id number] Venecia Vega MD [address] [place] [address] [address] [place] [phone] documented as of this encounter Visit Diagnoses Diagnosis Thrombocytosis- Primary Essential thrombocythemia Lymphocytosis Lymphocytosis (symptomatic) Right upper quadrant abdominal pain Abdominal pain, right upper quadrant documented in this encounter Historical Medications * This list may reflect changes made after this encounter. Medication Sig Dispensed Refills Start Date End Date ferrous sulfate 325 mg (65 mg iron) tablet Take 1 Tablet by mouth every 48 hours. added in this encounter Care Teams Plant Equipment Engineer Relationship Specialty Start Date End Date Rebeca Miller APRN [address] [place] [phone] PCP - General Family Medicine - Primary Care 11/21/21 03/07/24 documented as of this encounter
--- OUTSIDE RECORDS SUMMARY | 2024-03-14 17:57 | XMS_ITS | Encounter Summary ---
Author Organization [facility] Address [address] [place] [address] Care Team Providers Care Ticket Dispenser Changer Name Role Phone Rebeca Miller APRN Primary Care Provider [phone] Corine Coulter Primary Care Provider [phone] Encounter Details Date Type Department Care Team (Late st Contact Info) Description 04/27/2022 Specialty Pharmacy [facility] [address] [place] [address] [place], [facility] Social History Tobacco Use Types [...] Contact Info) Description 03/23/2024 11:15 EDT Telemedicine [facility] Rheumatology [address] [place] [address] Venecia Vega MD [address] [facility] [place] [address] documented as of this encounter Visit Diagnoses Not on filedocumented in this encounter Care Teams Ticket Dispenser Changer Relationship Specialty Start Date End Date Rebeca Miller APRN [address] [place] [address] PCP - General Family Medicine - Primary Care 11/21/21 03/07/24 Corine Coulter [address] [place] [address] PCP - General Family Medicine - Primary Care 03/08/24 documented as of this encounter
--- OUTSIDE RECORDS SUMMARY | 2024-03-14 17:57 | XMS_ITS | Encounter Summary ---
Author Organization [facility] Address [address] [place] [address] Care Team Providers Care Roll Tester Name Role Phone Rebeca Miller APRN Primary Care Provider [phone] Corine Coulter Primary Care Provider [phone] Encounter Details Date Type Department Care Team (Late st Contact Info) Description 08/14/2022 Specialty Pharmacy [facility] [address] [place] [address] [place], [facility] Social History Tobacco Use Types Packs/Day Years [...] Description 03/23/2024 11:15 EDT Telemedicine [facility] Rheumatology [address] [place] [address] Venecia Vega MD [address] [facility] [place] [address] documented as of this encounter Visit Diagnoses Not on filedocumented in this encounter Care Teams Roll Tester Relationship Specialty Start Date End Date Rebeca Miller APRN [address] [place] [address] PCP - General Family Medicine - Primary Care 11/21/21 03/07/24 Corine Coulter [address] [place] [address] PCP - General Family Medicine - Primary Care 03/08/24 documented as of this encounter
--- OUTSIDE RECORDS SUMMARY | 2024-03-14 17:57 | XMS_ITS | Encounter Summary ---
Author Organization [facility] Address [address] [place] [address] Care Team Providers Care Cruise Consultant Name Role Phone Paul Rebeca George AGUILERA Primary Care Provider [phone] Reason for Visit * Reason Comments Medication Management flares due to miss ashley patrick for infection. right now on antibitoics for a urinary tract infection. Encounter Details Date Type Department Care Team (Late st Contact Info) Description 03/11/2022 9:15 EDT Telemedicine [facility] [place] [place] [address] [place], [place] [id number] Venecia Vega MD [address] [facility] [address] [place] [address] Rheumatoid arthritis, seronegative, multiple sites (HCC-CMS) (HCC) (Primary Dx); Thrombocytosis; High risk medication use Social History Tobacco [...] * Patient Instructions* Venecia Vega MD - 03/11/2022 9:15 EDT If you aren't able to stay on Xeljanz consistently d/t infections we could consider making the switch to a monthly shot such as Simponi or Cimzia with your giving injection Update me with regard to how things go over the next month or two I will see you after your follow up appt with Hematology documented in this encounter Progress Notes * Venecia Vega MD - 03/11/2022 0915 EDT [facility] [place] Visit Today's visit was provided through [...] staff: yes. Subjective: Chief Complaint(s): Medication Management (flares due to missing xeljanz for infection. right now on antibitoics for a urinary tract infection. ) Seronegative rheumatoid arthritis -did not tolerate methotrexate/arava/remicade/rinvoq -on tofacitinib 5 mg bid since 2020 Overweight Elevated liver functions -GI consultation NAFL - rx weight loss Thrombocytosis -Heme eval ? D/t anemia vs active snra HPI: Arabella Ojeda reports she is doing okay. She has been off of her Xeljanz due to a urinary tract infection. Estimates that due to recurrent urinary tract infections or other sorts of infections shemisses about a week a month of Xeljanz. Medication has worked well for her. She has occasional kneeand ankle pain. Pain is much better than it was when her arthritis was out of control. Seen in hematology for thrombocytosis. Does have low iron, being treated for anemia. Also told thatactive arthritis may be contributing to her thrombocytosis. In the past developed severe headaches malaise after Remicade infusions. Did not tolerate methotrexate, arava, rinvoq. Struggles with injections, unable to tolerate injections with Enbrel, Humira in the past. Feels that perhaps if she has to keep stopping her Xeljanz she might be able to consider injectable medication to control her arthritis. very supportive, he would be able to deliver the injections. Remicade therapy was effective, however, caused her to feel sick for about a week afterward. For now is hopeful that she will recover from her infection and be able to remain on Xeljanz consistently. Does note significant benefit from medication. Review of systems - Some knee and foot pain - UTI, still experiences dysuria on day 4 of antibiotics. Missed Xeljanz following diagnosis of UTI. - No GI complaints such as diarrhea, however, some nausea which she attributes to her UTI and antibiotic therapy. I have reviewed patient's tobacco history: reports [...] Assessment & Plan: Arabella Ojeda is a 36 y.o. female with a history of seronegative rheumatoid arthritis on xeljanzand hydroxychloroquine. Knee issues, recent jaw pain Mild elevation lfts, GI advised weight loss. Has persistent elevation in platelets ? Etiology 1. Seronegative rheumatoid arthritis ([facility]) ([facility]) Xeljanz effective, misses a week a month due to infection/illness If not improving? change to a monthlyTNF would be to inject.will update me via portal 2. Thrombocytosis DDx anemia plus minus active seronegative RA. 3. High risk medication use weight loss for abnl lft elev wbc February d/t uti. RTC 3 months. Appt booked. I spent a total of 23 minutes [...] Description 03/23/2024 11:15 EDT Telemedicine [facility] Rheumatology [address] [place], [place] [address] Venecia Vega MD [address] [facility] [address] [place] [address] documented as of this encounter Visit Diagnoses Diagnosis Rheumatoid arthritis, seronegative, multiple sites ([facility])- Primary Thrombocytosis Essential thrombocythemia High risk medication use Encounter for long-term (current) use of other medications documented in this encounter Care Teams Cruise Consultant Relationship Specialty Start Date End Date Rebeca Miller APRN [address] [place] [phone] PCP - General Family Medicine - Primary Care 11/21/21 03/07/24 documented as of this encounter
--- OUTSIDE RECORDS SUMMARY | 2024-03-14 17:57 | XMS_ITS | Encounter Summary ---
Author Organization [facility] Address [address] [place] [address] Care Team Providers Care Lead Python Developer Name Role Phone PaulRebeca George AGUILERA Primary Care Provider Encounter Details Date Type Department Care Team (Late st Contact Info) Description 06/02/2022 Specialty Pharmacy [facility] - [facility] [address] [place] [address] [place], [facility] Social History Tobacco Use Types [...] as of this encounter Progress Notes * Jeff Garland RPH - 06/02/2022 1054 EST [facility] Specialty Pharmacy Delivery Information Hours: Wednesday-Wednesday 8:30am - 5:00pm *Pharmacist available oncology rn 25/01 Delivery Service: [employer] Delivery Window: None Specified Date of Delivery: 06/08/2022 Tracking # : [id number] documented in this encounter Plan of Treatment Upcoming Encounters Date Type Department Care Team (Late st Contact Info) Description 03/23/2024 11:15 EDT Telemedicine [facility] Rheumatology [address] [place], [place] [phone] Venecia Vega MD [address] [facility] [place] [address] documented as of this encounter Visit Diagnoses Not on filedocumented in this encounter Care Teams Lead Python Developer Relationship Specialty Start Date End Date Rebeca Miller APRN [address] [place] [phone] PCP - General Family Medicine - Primary Care 11/21/21 03/07/24 documented as of this encounter
--- OUTSIDE RECORDS SUMMARY | 2024-03-14 17:57 | XMS_ITS | Encounter Summary ---
Author Organization [facility] Address [address] [place] [address] Care Team Providers Care Fisher Trot Line Name Role Phone Rebeca Miller APRN Primary Care Provider Corine Coulter Primary Care Provider [phone] Encounter Details Date Type Department Care Team (Late st Contact Info) Description 09/10/2022 Lab Requisition [facility] Pathology & Laboratory Medicine - [facility] [address] [place] [address] Outr Resulting Lab, Provider Social History Tobacco [...] Contact Info) Description 03/23/2024 11:15 EDT Telemedicine [facility] Rheumatology [address] [place] [address] Venecia Vega MD [address] [facility] [address] [place] [address] documented as of this encounter Procedures Procedure Name Priority Date/Time Associated Diagnosis Comments HEPATITIS C AB W REFLEX TO HCV RNA BY PCR Routine 09/09/2022 14:00 EST documented in this encounter Results * HEPATITIS C AB W REFLEX TO HCV RNA BY PCR (09/09/2022 14:00 EST) Hep C Antibody Negative Negative 09/11/2022 10:27 EST [facility] Blood VENOUS BLOOD / Unknown 09/09/2022 14:00 EST 09/10/2022 17:13 EST Provider Outr Resulting Lab CHEMISTRY & BLOOD GAS ORDERABLES [facility] [address] [place] [address] documented in this encounter Visit Diagnoses Not on filedocumented in this encounter Care Teams Fisher Trot Line Relationship Specialty Start Date End Date Rebeca Miller APRN [address] [place] [address] PCP - General Family Medicine - Primary Care 11/21/21 03/07/24 Corine Coulter [address] [place] [address] PCP - General Family Medicine - Primary Care 03/08/24 documented as of this encounter
--- OUTSIDE RECORDS SUMMARY | 2024-03-14 17:57 | XMS_ITS | Encounter Summary ---
Author Organization [facility] Address [address] [place] [address] Care Team Providers Care Acds Block 1 Operator Name Role Phone Paul Rebeca George AGUILERA Primary Care Provider [phone] Encounter Details Date Type Department Care Team (Late st Contact Info) Description 12/07/2022 Transcribe Orders [facility] [place] Rheumatology [address] [place] [address] Venecia Vega MD [address] [facility] [address] [place] [address] Swelling of left knee joint (Primary Dx) Social History Tobacco Use Types [...] 03/23/2024 11:15 EDT Telemedicine [facility] Rheumatology [address] [place] [address] Venecia Vega MD [address] [facility] [address] [place] [phone] Scheduled Orders Name Type Priority Associated Diagnoses Orde r Schedule ANAPLASMA AND BABESIA TESTING BY PCR Lab Routine Swelling of left knee joint Ordered: 12/07/2022 documented as of this encounter Visit Diagnoses Diagnosis Swelling of left knee joint- Primary Effusion of lower leg joint documented in this encounter Care Teams Acds Block 1 Operator Relationship Specialty Start Date End Date Rebeca Miller APRN [address] [place] [address] PCP - General Family Medicine - Primary Care 11/21/21 03/07/24 documented as of this encounter
--- OUTSIDE RECORDS SUMMARY | 2024-03-14 17:57 | XMS_ITS | Encounter Summary ---
Author Organization [facility] Address [address] [place] [address] Care Team Providers Care Jewelry Finisher Name Role Phone Rebeca Miller APRN Primary Care Provider [phone] Reason for Visit * Reason Comments Rheumatoid Arthritis Jaw pain on the rig ht side. Very painful wakes at nightSeen in the ER. Encounter Details Date Type Department Care Team (Late st Contact Info) Description 05/15/2022 14:15 EST Telemedicine [facility] - [facility] Rheumatology [address], [place] [phone] Venecia Vega MD [address] [facility] [address] [place] [address] Seronegative spondylitis (HCC-CMS) (Primary Dx); High risk medication use Social History Tobacco [...] * Patient Instructions* Venecia Vega MD - 05/15/2022 14:15 EST Wondering about nerve pain triggered by your jaw arthritis as the cause of your severe left sided jaw pain -stop tizanidine -try gabapentin 300 mg at night increase to 300 mg three times a day (may make you sleepy/dry mouth) -prednisone 20 mg for 7 days then 10 mg x 7 days -for now delay start of Humira as we are trying to calm down this flare Please update me next week on Wednesday I am really sorry you are in pain and we will work together to get you feeling better Trigeminal neuralgia is a possible cause of the pain (this is a medical name for irritation of a nerve in the face (eye area/nose area/mouth area) * Attachments The following attachments cannot be sent through Care Everywhere. * Trigeminal Neuralgia (Romanian) documented in this encounter Ordered Prescriptions Prescription Sig Dispensed Refills Start Date End Da te predniSONE (DELTASONE) 10 mg tablet Take 2 Tablets by mouth daily for 7 days, THEN 1 Tablet daily for 7 days. 21 Tablet 1 05/15/2022 05/29/2022 predniSONE (DELTASONE) 10 mg tabletIndications:Serone gative spondylitis (HCC-CMS) Take 2 Tablets by mouth daily for 7 days, THEN 1 Tablet daily for 7 days. 30 Tablet 1 05/15/2022 05/15/2022 gabapentin (NEURONTIN) 300 mg capsule Take 1 Capsule by mouth 3 times daily. 90 Capsule 3 05/15/2022 06/26/2022 documented in this encounter Progress Notes * Venecia Vega MD - 05/15/2022 1415 EST [facility] Video Visit Today's visit was provided through [...] or auxiliary staff: yes. Subjective: Chief Complaint(s): Rheumatoid Arthritis (Jaw pain on the right side. Very painful wakes at night/Seen in the ER. ) Seronegative rheumatoid arthritis -did not tolerate methotrexate/arava/remicade/rinvoq -on tofacitinib 5 mg bid since 2020 Overweight Elevated liver functions -GI consultation NAFL - rx weight loss Thrombocytosis -Heme eval ? D/t anemia vs active snra HPI: Arabella Ojeda has been having severe pain in her jaw. Has been having more tmj pain Given muscle relaxer, not working. Pain left lower jaw, sore in her mouth sore into nose. Nose is sometimes runny Worse at night, hard to sleep Prednisone helped some, not sure if due to TMJ Feels really exhausted by lack of sleep. I have reviewed patient's tobacco history: reports [...] of trigeminal or similar neurpathic pain Plan Prednisone 20 mg/day x 7 day 10 mg x 7 days for arthritis Gabapentin 300 mg tid for neuropathic pain Update in 5 days Delay change to Humira while we work to control arthritis/flare likely start next week Continue infliximab RTC 3 months. Appt booked. I spent [...] Contact Info) Description 03/23/2024 11:15 EDT Telemedicine [facility] Rheumatology [address], [place] [phone] Venecia Vega MD [address] [facility] [address] [place] [address] documented as of this encounter Visit Diagnoses Diagnosis Seronegative spondylitis (HCC-CMS)- Primary Unspecified inflammatory spondylopathy High risk medication use Encounter for long-term (current) use of other medications documented in this encounter Discontinued Medications Medication Sig Discontinue Reason Start Date End Da te tiZANidine (ZANAFLEX) 4 mg tabletIndications:muscle spasm,tmj Take 4 mg by mouth at bedtime. Alternate therapy 05/15/2022 predniSONE (DELTASONE) 10 mg tablet Take 1 Tablet by mouth daily. Reorder 05/13/2022 05/15/2022 predniSONE (DELTASONE) 10 mg tabletIndications:Serone gative spondylitis (HCC-CMS) Take 2 Tablets by mouth daily for 7 days, THEN 1 Tablet daily for 7 days. Error 05/15/2022 05/15/2022 documented as of this encounter Historical Medications * This list may reflect changes made after this encounter. Medication Sig Dispensed Refills Start Date End Date tiZANidine (ZANAFLEX) 4 mg tabletIndications:muscle spasm,tmj Take 4 mg by mouth at bedtime. 05/15/2022 added in this encounter Care Teams Jewelry Finisher Relationship Specialty Start Date End Date Rebeca Miller APRN [address] [place] [phone] PCP - General Family Medicine - Primary Care 11/21/21 03/07/24 documented as of this encounter
--- OUTSIDE RECORDS SUMMARY | 2024-03-14 17:57 | XMS_ITS | Encounter Summary ---
Author Organization [facility] Address [address] [place] [address] Care Team Providers Care Marketing And Promotions Manager Name Role Phone PaulRebeca George AGUILERA Primary Care Provider Encounter Details Date Type Department Care Team (Late st Contact Info) Description 05/08/2022 Specialty Pharmacy [facility] - [facility] [address] [place] [address] [place], [facility] Social History Tobacco Use Types Packs/Day Years [...] as of this encounter Progress Notes * Sid Rucker - 05/08/2022 1416 EDT [facility] Specialty Pharmacy Delivery Information Hours: Wednesday-Wednesday 8:30am - 5:00pm *Pharmacist available associate software application engineer 25/01 Delivery Service: [employer] Delivery Window: None Specified Date of Delivery: 05/14 Tracking # : [id number] documented in this encounter Plan of Treatment Upcoming Encounters Date Type Department Care Team (Late st Contact Info) Description 03/23/2024 11:15 EDT Telemedicine [facility] Rheumatology [address] [place] [phone] Venecia Vega MD 130 [facility] [address] [place] [phone] documented as of this encounter Visit Diagnoses Not on filedocumented in this encounter Discontinued Medications Medication Sig Discontinue Reason Start Date End Da te tofacitinib (XELJANZ) 5 mg tabletIndications:rheuma toid arthritis Take 1 Tablet by mouth 2 times daily. Alternate therapy 03/16/2022 05/08/2022 documented as of this encounter Care Teams Marketing And Promotions Manager Relationship Specialty Start Date End Date Rebeca Miller APRN [address] [place] [phone] PCP - General Family Medicine - Primary Care 11/21/21 03/07/24 documented as of this encounter
--- OUTSIDE RECORDS SUMMARY | 2024-03-14 17:57 | XMS_ITS | Encounter Summary ---
Author Organization [facility] Address [address] [place] [address] Care Team Providers Care Extrusion Manager Name Role Phone PaulRebeca juan George AGUILERA Primary Care Provider [phone] Reason for Visit * Reason Onset Date Comments Results 09/07/2022 Encounter Details Date Type Department Care Team (Late st Contact Info) Description 09/07/2022 Telephone [facility] Hematology & Oncology [address] [place] [phone] Yoly Valencia MD [address] [place] [address] Results Social History Tobacco Use Types Packs/Day Years [...] encounter Miscellaneous Notes * Telephone Encounter - Geetha Becker - 09/07/2022 1131 EST Patient would like a call back about her US report. Report is in Dr Valencia box. Patient is in a lot of discomfort and very nauseous. Please call patient. Thanks. documented in this encounter Plan of Treatment Upcoming Encounters Date Type Department Care Team (Late st Contact Info) Description 03/23/2024 11:15 EDT Telemedicine [facility] Rheumatology [address] [place] [address] Venecia Vega MD 130 [facility] [address] [place] [address] documented as of this encounter Visit Diagnoses Not on filedocumented in this encounter Care Teams Extrusion Manager Relationship Specialty Start Date End Date Rebeca Miller APRN [address] [place] [phone] PCP - General Family Medicine - Primary Care 11/21/21 03/07/24 documented as of this encounter
--- OUTSIDE RECORDS SUMMARY | 2024-03-14 17:57 | XMS_ITS | Encounter Summary ---
Author Organization [facility] Address [address] [place] [address] Care Team Providers Care Event Sales Assistant Name Role Phone Paul Rebeca Vazquez APRN Primary Care Provider Reason for Visit * Reason Onset Date Comments Medications Refill 2022 Encounter Details Date Type Department Care Team (Late st Contact Info) Description 2022 Refill [facility] - [facility] Rheumatology [address] [place], [place] [phone] Venecia Vega MD [address] [facility] [address] [place] [address] Medications Refill Social History Tobacco [...] Tablet by mouth daily. 90 Tablet 1 06/15/2022 11/25/2022 documented in this encounter Miscellaneous Notes * Telephone Encounter - Cande Young RN - 06/15/[address] Vega patient should continue HCQ along with the Humira. See patient message from 06/14. * Telephone Encounter - Cande Young RN - 06/15/2022 0803 ESTFrom: Arabella Ojeda To: Office of Venecia Vega MD Sent: 2022 20:01 EST Subject: Medication Renewal Request Refills have been requested for the following medications: hydrOXYchloroQUINE (PLAQUENIL) 200 mg tablet [Venecia Vega] Preferred pharmacy: [id number] - [place], [place] - [address] [facility] documented in this encounter Plan of Treatment Upcoming Encounters Date Type Department Care Team (Late st Contact Info) Description 03/23/2024 11:15 EDT Telemedicine [facility] Rheumatology [address] [place] [address] Venecia Vega MD 130 [facility] [address] [place] [phone] documented as of this encounter Visit Diagnoses Diagnosis Spondyloarthropathy- Primary Spondylosis of unspecified site without mention of myelopathy documented in this encounter Discontinued Medications Medication Sig Discontinue Reason Start Date End Da te hydrOXYchloroQUINE (PLAQUENIL) 200 mg tabletIndications:Spondy loarthropathy TAKE ONE TABLET BY MOUTH ONE TIME DAILY Reorder 03/04/2022 2022 documented as of this encounter Care Teams Event Sales Assistant Relationship Specialty Start Date End Date Rebeca Miller APRN [address] [place] [address] PCP - General Family Medicine - Primary Care 11/21/21 03/07/24 documented as of this encounter
--- OUTSIDE RECORDS SUMMARY | 2024-03-14 17:57 | XMS_ITS | Encounter Summary ---
Author Organization [facility] Address [address] [place] [address] Care Team Providers Care Audio Tape Librarian Name Role Phone Paul Rebeca George AGUILERA Primary Care Provider Reason for Visit * Reason Onset Date Comments Prior Auth, Medication 05/01/2022 Humira Encounter Details Date Type Department Care Team (Late st Contact Info) Description 05/01/2022 Telephone [facility] Rhe[facility] [address] [place] [address] Venecia Vega MD [address] [facility] [address] [place] [address] Prior Auth, Medication (Humira) Social History Tobacco Use Types Packs/Day Years [...] (HUMIRA,CF, PEN) 40 mg/0.4 mL penIndications:Seronegativ e spondylitis ([facility]) Inject 0.4 mL into the skin every 14 days. 2 Each 5 05/08/2022 07/20/2022 documented in this encounter Miscellaneous Notes * Telephone Encounter - Chetna Low - 05/04/2022 1400 EDT Prior Authorization Approval Medication: Humira CF pen 40mg q14d Insurance Name: [place] Type: [place] Approval Dates: through 08/07/22 Authorization Number: [id number] [facility] able to fill? : Yes Required Pharmacy: - Prior Authorization Submission Process - Urgent Medication: Humira CF pen 40mg q14d Insurance: [place] Insurance Type: [place] Medicaid Date [place] Request Received: 04/29/22 [place] Submission Date: 05/04/22 [facility] [place]: N/A - submitted via fax Submitted by: Chetna Phone: [phone] documented in this encounter Plan of Treatment Upcoming Encounters Date Type Department Care Team (Late st Contact Info) Description 03/23/2024 11:15 EDT Telemedicine [facility] Rheumatology [address] [place] [address] Venecia Vega MD [address] [facility] [address] [place] [address] documented as of this encounter Visit Diagnoses Diagnosis Seronegative spondylitis ([facility])- Primary Unspecified inflammatory spondylopathy documented in this encounter Care Teams Audio Tape Librarian Relationship Specialty Start Date End Date Rebeca Miller APRN [address] [place] [address] PCP - General Family Medicine - Primary Care 11/21/21 03/07/24 documented as of this encounter
--- OUTSIDE RECORDS SUMMARY | 2024-03-14 17:57 | XMS_ITS | Encounter Summary ---
Author Organization [facility] Address [address] [place] [address] Care Team Providers Care Clinical Support Specialist Name Role Phone Rebeca Miller APRN Primary Care Provider [phone] Corine Coulter Primary Care Provider [phone] Reason for Visit * Reason Onset Date Comments Orders (Non Pre-visit) 09/18/2022 Encounter Details Date Type Department Care Team (Late st Contact Info) Description 09/18/2022 Telephone [facility] - [facility] Rheumatology [address] [place] [address] Katt Stringer RN Orders (Non Pre-visit) Social History Tobacco Use Types Packs/Day Years [...] Telephone Encounter - Katt Stringer RN - 09/18/2022 1607 EDT Standing orders for CBC with Diff, CRP and CMP faxed to [facility]. Please see scans for labs done at [facility] 09/03/22. * Telephone Encounter - Katt Stringer RN - 09/18/2022 1604 EDT ----- Message from Venecia Vega MD sent at 09/18/2022 14:23 EDT ----- Plz find most recent labs in [facility]IT[facility] Please ensure uptodate lab order for cbc, crp,cmp at [facility] Thx. CJ documented in this encounter Plan of Treatment Upcoming Encounters Date Type Department Care Team (Late st Contact Info) Description 03/23/2024 11:15 EDT Telemedicine [facility] - [facility] Rheumatology [address] [place], [place] [address] Venecia Vega MD [address] [facility] [address] [place] [address] documented as of this encounter Visit Diagnoses Diagnosis Ankylosing spondylitis of multiple sites in spine ([facility]-CMS)- Primary Ankylosing spondylitis documented in this encounter Care Teams Clinical Support Specialist Relationship Specialty Start Date End Date Rebeca Miller APRN [address] [place] [address] PCP - General Family Medicine - Primary Care 11/21/21 03/07/24 Corine Coulter [address] [phone] PCP - General Family Medicine - Primary Care 03/08/24 documented as of this encounter
--- OUTSIDE RECORDS SUMMARY | 2024-03-14 17:57 | XMS_ITS | Encounter Summary ---
Author Organization [facility] Address [address] [place] [address] Care Team Providers Care Poker Prop Player Name Role Phone PaulRebeca juan George AGUILERA Primary Care Provider [phone] Reason for Visit * Reason Comments Follow-up Belly and back pain last week. suggested d/t gall stones. Worse at night. ? If due to Humira Encounter Details Date Type Department Care Team (Late st Contact Info) Description 08/26/2022 13:45 EST Telemedicine [facility] Rheumatology [address] [place], [place] [phone] Venecia Vega MD [address] [facility] [address] [place] [address] RUQ pain (Primary Dx); Ankylosing spondylitis of multiple sites in spine ([facility]-CMS) Social History Tobacco Use Types Packs/Day Years [...] * Patient Instructions* Venecia Vega MD - 08/26/2022 13:45 EST I don't think Humira is causing your belly pain I agree with the hematology MD that pain in back/belly may be due to gallstones -eat a low fat diet -if pain worse go to ER for evaluation -update me /your pcp once you know more about ultrasound Read about low fat foods and risks for gall stones Hold Humira while the work up for your pain is ongoing. * Attachments The following attachments cannot be sent through Care Everywhere. * Gallbladder Disease: Low-Fat Diet (Armenian) * Gallstones: General Info (Armenian) documented in this encounter Progress Notes * Venecia Vega MD - 08/26/2022 6805 EST [facility] Telephone Visit Today's visit was provided via [...] an audio-only visit is appropriate due to: Internet access or other technical issue Subjective: Chief Complaint(s): Follow-up (Belly and back pain last week. suggested d/t gall stones. Worse at night. ? If due to Humira) HPI: Arabella Ojeda reports she is having back pain. Worried that the Humira weekly is causing. Had covid, stopped medication. Now back on Humira and pain is back. Belly sore in front worse at night goes into right side of back. Wakes her up. She uses an ice pack. Fears she won't be taken seriously if she goes into the ER. Feels sick at times when wakes at night. Last week or so quite bad. Vegetarian. Low fat diet already Ankles sore, snow shoeing with family Humira injection site reactions getting better Feels worried that back pain/belly pain could be due to Humira. ? What to do Weight stable no fevers I have reviewed patient's tobacco history: reports that she has never smoked. She has never used smokeless tobacco. I have reviewed current problem list and current medications. Objective: Examination: Home Vitals: There were no vitals taken for this visit. Pertinent exam findings: speaking in full sentences, no audible wheeze and mood and affect appropriate Data reviewed with patient: onc notes, last labs, last rheum noate Assessment & Plan: Arabella Ojeda is a 37 y.o. female with a history of seronegative spondyloarthropathy on weekly Humira She has increased belly and right sided back pain, especially worse last week Plan below D/w her that I am concerned about gall bladder disease agree with us Hold humira but do not feel this pain d/t Humira needs further work up. ER eval if worse pain 1. RUQ pain RUQ pain, last 10days Concern for gallstone disease Low fat diet/us ordered by onc to er if worse 2. Ankylosing spondylitis of multiple sites in spine ([facility]) ([facility]) continue humira Patient initiated phone contact with the office: yes. Patient is an established patient (parent, guardian) yes. E/M provided within previous 7 days for same medical assessment: no Anticipate E/M service within 24hrs or next available urgent appointment no. This visit was conducted by telephone. A total of 23 minutes was spent on this encounter on the dayof this encounter. documented in this encounter Plan of Treatment Upcoming Encounters Date Type Department Care Team (Late st Contact Info) Description 03/23/2024 11:15 EDT Telemedicine [facility] Rheumatology [address] [place], [place] [address] Venecia Vega MD 130 [facility] [address] [place] [address] documented as of this encounter Visit Diagnoses Diagnosis RUQ pain- Primary Abdominal pain, right upper quadrant Ankylosing spondylitis of multiple sites in spine (HCC-CMS) Ankylosing spondylitis documented in this encounter Discontinued Medications Medication Sig Discontinue Reason Start Date End Da te PAXLOVID, EUA, 300 mg (150 mg x 2)-100 mg tablet TAKE 2 NIRMATRELVIR TABLETS AND 1 RITONAVIR TABLET TOGETHER BY MOUTH TWICE DAILY FOR 5 DAYS Patient Stopped Taking 07/27/2022 08/26/2022 cefpodoxime (VANTIN) 200 mg tablet Patient Stopped Taking 05/13/2022 08/26/2022 documented as of this encounter Historical Medications * This list may reflect changes made after this encounter. Medication Sig Dispensed Refills Start Date End Date Sodium Fluoride 1.1 % gel 07/10/2022 PAXLOVID, EUA, 300 mg (150 mg x 2)-100 mg tablet TAKE 2 NIRMATRELVIR TABLETS AND 1 RITONAVIR TABLET TOGETHER BY MOUTH TWICE DAILY FOR 5 DAYS 07/27/2022 08/26/2022 cefpodoxime (VANTIN) 200 mg tablet 05/13/2022 08/26/2022 added in this encounter Care Teams Poker Prop Player Relationship Specialty Start Date End Date Rebeca Miller APRN [address] [place] [address] PCP - General Family Medicine - Primary Care 11/21/21 03/07/24 documented as of this encounter
--- OUTSIDE RECORDS SUMMARY | 2024-03-14 17:57 | XMS_ITS | Encounter Summary ---
Author Organization [facility] Address [address] [place] [address] Care Team Providers Care Hadoop Engineer Name Role Phone Rebeca Miller George AGUILERA Primary Care Provider [phone] Reason for Visit * Reason Onset Date Comments Pre-visit Orders 07/28/2022 Encounter Details Date Type Department Care Team (Late st Contact Info) Description 07/28/2022 Telephone [facility] Adult Hematology & Oncology [address] [place] [phone] Yoly Myers MD [address] [place] [address] Pre-visit Orders Social History Tobacco Use Types Packs/Day Years [...] encounter Miscellaneous Notes * Telephone Encounter - Jerrica Solitario RN - 07/28/[address] MYERS - Please advise what labs you would like prior to visit. Thanks! * Telephone Encounter - Geetha Becker - 07/28/2022 1150 EST Patient has scheduled appointment for 08/24/22. Needs labs. She will be going to [facility] to get these done. The orders are in Brett's name please change to Erik and I will fax to [facility]. Thanks. documented in this encounter Plan of Treatment Upcoming Encounters Date Type Department Care Team (Late st Contact Info) Description 03/23/2024 11:15 EDT Telemedicine [facility] Rheumatology [address] [place] [address] Venecia Vega MD 130 [facility] [address] [place] [address] documented as of this encounter Visit Diagnoses Diagnosis Thrombocytosis- Primary Essential thrombocythemia Lymphocytosis Lymphocytosis (symptomatic) documented in this encounter Care Teams Hadoop Engineer Relationship Specialty Start Date End Date Rebeca Miller APRN [address] [place] [address] PCP - General Family Medicine - Primary Care 11/21/21 03/07/24 documented as of this encounter
--- OUTSIDE RECORDS SUMMARY | 2024-03-14 17:57 | XMS_ITS | Encounter Summary ---
Author Organization [facility] Address [address] [place] [address] Care Team Providers Care Design Checker Name Role Phone Rebeca Miller APRN Primary Care Provider Corine Coulter Primary Care Provider [phone] Reason for Visit * Reason Onset Date Comments Appointment Related 04/23/2022 Encounter Details Date Type Department Care Team (Late st Contact Info) Description 04/23/[address] [facility] [address] [place] [address] Adriane West, NOEMI 130 [facility] [address] [place] [address] Appointment Related Social History Tobacco [...] Miscellaneous Notes * Telephone Encounter - Catherine Silverio RN - 04/23/2022 1618 EDT Geetha- Please call patient and schedule f/u in [address] West. Thank you * Telephone Encounter - Catherine Silverio RN - 04/23/2022 1613 EDT Patient aware and would like to know when she should come back to office for f/u? Patient seeing Arthritis Doctor and will be changing medication and will change her labs. * Telephone Encounter - Geetha Becker - 04/23/2022 1440 EDT Patient has an appointment next week with Dr Vega and is wondering if she can have labs draw to see about her iron levels and then schedule appointment out a few months to see if the changes that Yael is going to do will effect by levels. I told patient that the orders for labs are in the system. Please advise if this will be ok. Thanks. documented in this encounter Plan of Treatment Upcoming Encounters Date Type Department Care Team (Late st Contact Info) Description 03/23/2024 11:15 EDT Telemedicine [facility] Rheumatology [address] [place] [address] Venecia Vega MD 130 [facility] [address] [place] [address] documented as of this encounter Visit Diagnoses Not on filedocumented in this encounter Care Teams Design Checker Relationship Specialty Start Date End Date Rebeca Miller APRN [address] [place] [address] PCP - General Family Medicine - Primary Care 11/21/21 03/07/24 Corine Coulter [address] [place] [address] PCP - General Family Medicine - Primary Care 03/08/24 documented as of this encounter
--- OUTSIDE RECORDS SUMMARY | 2024-03-14 17:57 | XMS_ITS | Encounter Summary ---
Author Organization [facility] Address [address] [place] [address] Care Team Providers Care Workers Compensation Examiner Name Role Phone Rebeca Miller WILLY Primary Care Provider [phone] Encounter Details Date Type Department Care Team (Late st Contact Info) Description 08/20/2022 Abstract [facility] - [facility] [place] Rheumatology [address] [place], [place] [id number] Cande Young RN Social History Tobacco Use Types Packs/Day [...] EDT Telemedicine [facility] Rheumatology [address] [place], [place] [address] Venecia Vega MD 130 [facility] [address] [place] [address] documented as of this encounter Procedures Procedure Name Priority Date/Time Associated Diagnosis Comments COMPLETE BLOOD COUNT AND DIFFERENTIAL Routine 08/17/2022 C REACTIVE PROTEIN Routine 08/17/2022 COMPREHENSIVE METABOLIC PANEL (CMP) Routine 08/17/2022 documented in this encounter Results * (ABNORMAL) C REACTIVE PROTEIN (08/17/2022) Pathologist [facility] C-Reactive Protein, External 1.25(A) 0.0 - 0.3 mg/dL [facility] Blood VENOUS BLOOD / Unknown 08/17/2022 Venecia Vega MD CHEMISTRY & BLOO D GAS ORDERABLES [facility] * (ABNORMAL) COMPLETE BLOOD COUNT AND DIFFERENTIAL (08/17/2022) Pathologist [facility] WBC, External 10.47 4.4 - 10.8 [facility] RBC, External 4.51 3.93 - 5.22 [facility] Hemoglobin, External 13.2 11.2 - 15.7 [facility] HCT, External 41.0 36.0 - 46.0 [facility] MCV, External 91 80 - 95 [facility] MCH, External 29.3 27.0 - 33.0 [facility] MCHC, External 32.2 32.0 - 36.0 [facility] PLT, External 577(A) 130 - 400 [facility] RDW-CV, External 14.0 11.7 - 14.6 [facility] Neutrophils, External 57.2 [facility] Lymphocytes, External 30.6 [facility] Monocytes, External 6.9 [facility] Eosinophils, External 4.4 [facility] Basophils, External 0.5 [facility] ABS Neutrophils, External 6.00 1.2 - 6.7 [facility] ABS Lymphs, External 3.20 1.2 - 3.4 [facility] ABS Monocytes, External 0.72 0.1 - 0.8 [facility] ABS Eosinophils, External 0.46 0.0 - 0.7 [facility] ABS Basophils, External 0.05 0.0 - 0.2 [facility] Blood VENOUS BLOOD / Unknown 08/17/2022 Venecia Vega MD PACKAGES & DNA P SERENEE ORDERABLES [facility] * (ABNORMAL) COMPREHENSIVE METABOLIC PANEL (CMP) (08/17/2022) GFR, Calculated, External 96.06 60 [facility] Glucose, Serum, External 108(A) 74 - 106 [facility] Albumin, External 3.8 3.4 - 5.0 [facility] Total Alkaline Phosphatase, External 89 46 - 116 [facility] ALT, External 45 14 - 59 [facility] AST, External 32 15 - 37 [facility] BUN, External 11 7 - 18 [facility] Calculated Calcium, External [facility] Calcium, External 8.9 8.5 - 10.1 [facility] Chloride, External 105 98 - 107 [facility] CO2, External 26.9 21.0 - 32.0 [facility] Creatinine, External 0.8 0.55 - 1.02 [facility] Fasting?, External [facility] Potassium, External 3.6 3.5 - 5.1 [facility] Sodium, External 140 136 - 145 [facility] Total Protein, External 7.5 6.4 - 8.2 [facility] Bilirubin, Total, External 0.3 0.2 - 1.0 [facility] Blood VENOUS BLOOD / Unknown 08/17/2022 Venecia Vega MD CHEMISTRY & BLOO D GAS ORDERABLES [facility] documented in this encounter Visit Diagnoses Not on filedocumented in this encounter Care Teams Workers Compensation Examiner Relationship Specialty Start Date End Date Rebeca Miller APRN [address] [place] [phone] PCP - General Family Medicine - Primary Care 11/21/21 03/07/24 documented as of this encounter
--- OUTSIDE RECORDS SUMMARY | 2024-03-14 17:57 | XMS_ITS | Encounter Summary ---
Author Organization [facility] Address [address] [place] [address] Care Team Providers Care Oceanologist Name Role Phone PaulRebeca George AGUILERA Primary Care Provider [phone] Encounter Details Date Type Department Care Team (Late st Contact Info) Description 09/09/2022 Specialty Pharmacy [facility] Ambulatory Pharm[facility] - [facility] [address] [place] [address] [place], [facility] [...] Telemedicine [facility] Rheumatology [address] [place] [address] Venecia Vega MD 130 [facility] [address] [place] [address] documented as of this encounter Visit Diagnoses Not on filedocumented in this encounter Care Teams Oceanologist Relationship Specialty Start Date End Date Rebeca Miller APRN [address] [place] [phone] PCP - General Family Medicine - Primary Care 11/21/21 03/07/24 documented as of this encounter
--- OUTSIDE RECORDS SUMMARY | 2024-03-14 17:57 | XMS_ITS | Encounter Summary ---
Author Organization [facility] Address [address] [place] [address] Care Team Providers Care Floor Representative Name Role Phone Rebeca Miller APRN Primary Care Provider [phone] Corine Coulter Primary Care Provider [phone] Reason for Visit * Reason Onset Date Comments Other 11/09/2022 Encounter Details Date Type Department Care Team (Late st Contact Info) Description 11/09/2022 Telephone [facility] Rheumatology [address] [place], [place] [phone] Venecia Vega MD 130 [facility] [address] [place] [address] Other Social History Tobacco Use Types Packs/Day Years [...] encounter Miscellaneous Notes * Telephone Encounter - Lesly Elizabeth - 11/09/2022 1346 EDT Phone visit scheduled with for 1:00 on 11/10. * Telephone Encounter - Cande Young RN - 11/09/2022 1122 EDT Spoke with patient and she feels like her left knee pain and inflammation is back to the way it wasbefore the steroids in October, noting that it might even be a little worse now. She went Urgent Carethis morning to rule out anything non arthritis related but she was told it is like her arthritis flaring again. She took the prednisone as prescribed and has been very good about doing her weekly Humira doses. Please advise on further recommendations. * Telephone Encounter - Lesly Elizabeth - 11/09/2022 1106 EDT Pt requesting to speak with Dr. Vega nurse. States her left knee inflammation has gotten worse so that she limps when she walks. Went to Urgent Care this morning and they did x-rays and an ultrasound to rule out a clot. They believe it is arthritis related. documented in this encounter Plan of Treatment Upcoming Encounters Date Type Department Care Team (Late st Contact Info) Description 03/23/2024 11:15 EDT Telemedicine [facility] Rheumatology [address] [place], [place] [address] Venecia Vega MD 130 [facility] [address] [place] [phone] documented as of this encounter Visit Diagnoses Not on filedocumented in this encounter Care Teams Floor Representative Relationship Specialty Start Date End Date Rebeca Miller APRN [address] [place] [address] PCP - General Family Medicine - Primary Care 11/21/21 03/07/24 Corine Coulter [address] [place] [address] PCP - General Family Medicine - Primary Care 03/08/24 documented as of this encounter
--- OUTSIDE RECORDS SUMMARY | 2024-03-14 17:57 | XMS_ITS | Encounter Summary ---
Author Organization [facility] Address [address] [place] [address] Care Team Providers Care Automotive Technology Instructor Name Role Phone Paul Rebeca George AGUILERA Primary Care Provider [phone] Reason for Visit * Reason Comments Other Encounter Details Date Type Department Care Team (Late st Contact Info) Description 03/04/2022 Refill [facility] - [facility] Rheumatology [address] [place] [address] Venecia Vega MD 130 [facility] [address] [place] [phone] Other Social History Tobacco Use Types Packs/Day [...] te hydrOXYchloroQUINE (PLAQUENIL) 200 mg tabletIndications:Spondyl oarthropathy TAKE ONE TABLET BY MOUTH ONE TIME DAILY 90 Tablet 03/04/2022 2022 documented in this encounter Miscellaneous Notes * Telephone Encounter - Cande Young RN - 03/04/2022 1229 EDT Last visit note reviewed and follow up scheduled for 03/11/22. Labs up to date. Refill sent as noted. 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
--- OUTSIDE RECORDS SUMMARY | 2024-03-14 17:57 | XMS_ITS | Encounter Summary ---
Author Organization [facility] Address [address] [place] [address] Care Team Providers Care Human Resource Assistant Name Role Phone Rebeca Miller APRN Primary Care Provider [phone] Corine Coulter Primary Care Provider [phone] Reason for Visit * Reason Comments Medications Refill Encounter Details Date Type Department Care Team (Late st Contact Info) Description 11/25/2022 Refill [facility] Rheumatology [address] [place] [address] Venecia Vega MD 130 [facility] [address] [place] [address] Medications Refill Social History Tobacco [...] BY MOUTH ONE TIME DAILY 90 Tablet 11/25/2022 12/28/2022 documented in this encounter Miscellaneous Notes * Telephone Encounter - Cande Young RN - 11/25/2022 1621 EDT Last visit note reviewed and follow up scheduled for 12/29/22. Labs up to date. Refill sent as noted. 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 06/15/2022 11/25/2022 documented as of this encounter Care Teams Human Resource Assistant Relationship Specialty Start Date End Date Rebeca Miller APRN [address] [place] [address] PCP - General Family Medicine - Primary Care 11/21/21 03/07/24 Corine Coulter [address] [address] PCP - General Family Medicine - Primary Care 03/08/24 documented as of this encounter
--- OUTSIDE RECORDS SUMMARY | 2024-03-14 17:57 | XMS_ITS | Encounter Summary ---
Author Organization [facility] Address [address] [place] [address] Care Team Providers Care Locomotive Electrician Name Role Phone PaulRebeca George AGUILERA Primary Care Provider Encounter Details Date Type Department Care Team (Late st Contact Info) Description 11/13/2022 Specialty Pharmacy [facility] [address] [place], [place] [id number] [place], [facility] Social History Tobacco Use Types Packs/Day [...] as of this encounter Progress Notes * Edward Buenrostro - 11/13/2022 1329 EDT Specialty Pharmacy Documentation Medication: Humira [place] [facility] [place] Reason for Encounter: Outreach Notes: PA requested. Follow up date: 11/17/2022 Follow up reason: Outreach documented in this encounter Plan of Treatment Upcoming Encounters Date Type Department Care Team (Late st Contact Info) Description 03/23/2024 11:15 EDT Telemedicine [facility] Rheumatology [address] [place], [place] [address] Venecia Vega MD 130 [facility] [address] [place] [address] documented as of this encounter Visit Diagnoses Not on filedocumented in this encounter Care Teams Locomotive Electrician Relationship Specialty Start Date End Date Rebeca Miller APRN [address] [place] [phone] PCP - General Family Medicine - Primary Care 11/21/21 03/07/24 documented as of this encounter
--- OUTSIDE RECORDS SUMMARY | 2024-03-14 17:57 | XMS_ITS | Encounter Summary ---
Author Organization [facility] Address [address] [place] [address] Care Team Providers Care Stenotypist Name Role Phone PaulRebeca George AGUILERA Primary Care Provider [phone] Encounter Details Date Type Department Care Team (Late st Contact Info) Description 01/04/2023 Specialty Pharmacy [facility] Ambulatory [facility] - [facility] [address] [place] [address] [place], [facility] [...] of this encounter Progress Notes * Joanna Eisenberg - 01/04/2023 1249 EDT Medication Refill Request Medication: HUMIRA CF PEN 40mg/0.4ml PNKT Patient needs medication by: 01/17, approximately, according to last adherence screen Scheduled outreach date: 01/07/23 Pharmacy: [facility] [place] [facility] ([facility]) [address] Next appt: Visit date not found documented in this encounter Plan of Treatment Upcoming Encounters Date Type Department Care Team (Late st Contact Info) Description 03/23/2024 11:15 EDT Telemedicine [facility] Rheumatology [address] [place], [place] [address] Venecia Vega MD 130 [facility] [address] [place] [phone] documented as of this encounter Visit Diagnoses Not on filedocumented in this encounter Care Teams Stenotypist Relationship Specialty Start Date End Date Rebeca Miller APRN [address] [place] [phone] PCP - General Family Medicine - Primary Care 11/21/21 03/07/24 documented as of this encounter
--- OUTSIDE RECORDS SUMMARY | 2024-03-14 17:57 | XMS_ITS | Encounter Summary ---
Author Organization [facility] Address [address] [place] [address] Care Team Providers Care Foreign Language Teacher Name Role Phone Paul Rebeca George AGUILERA Primary Care Provider [phone] Reason for Visit * Reason Onset Date Comments Labs Only 05/06/2022 Encounter Details Date Type Department Care Team (Late st Contact Info) Description 05/06/2022 Telephone [facility] [place] & Oncology [address] [place] [address] Adriane West, NOEMI 130 [facility] [address] [place] [address] Labs Only Social History Tobacco Use Types Packs/Day Years [...] Telephone Encounter - Catherine Silverio RN - 05/06/2022 1238 EDT My chart message sent with information. * Telephone Encounter - Adriane West MBBS - 05/06/2022 1228 EDT Reviewed CBC from outside hospital (05/06/2022): WBC: 15.31 Hemoglobin: 14.1 Platelet count: 612 Serum ferritin: 37 Serum iron: 74 Iron binding capacity: 424 Transferrin saturation: 17.45%. Becerril, Please let the patient know that iron stores improved. Patient should continue to take ferrous sulfate, 1 tablet every other day. Geetha, patient needs follow-up in our clinic in 3 months. ThanksAdriane MBBS documented in this encounter Plan of Treatment Upcoming Encounters Date Type Department Care Team (Late st Contact Info) Description 03/23/2024 11:15 EDT Telemedicine [facility] Rheumatology [address] [place] [address] Venecia Vega MD 130 [facility] [address] [place] [phone] documented as of this encounter Visit Diagnoses Not on filedocumented in this encounter Care Teams Foreign Language Teacher Relationship Specialty Start Date End Date Rebeca Miller, WILLY [address] [place] [phone] PCP - General Family Medicine - Primary Care 11/21/21 03/07/24 documented as of this encounter
--- OUTSIDE RECORDS SUMMARY | 2024-03-14 17:58 | XMS_ITS | Encounter Summary ---
Author Organization [facility] Address [address] [place] [address] Care Team Providers Care Oil Well Services Supervisor Name Role Phone Phoebe Iyer ABHAY Primary Care Provider [phone] Encounter Details Date Type Department Care Team (Late st Contact Info) Description 10/16/2021 Abstract [facility] Rheumatology [address] [place], [place] [address] Cande Young RN Social History Tobacco Use [...] Contact Info) Description 03/23/2024 11:15 EDT Telemedicine [facility] Rheumatology [address] [place], [place] [address] Venecia Vega MD 130 [facility] [address] [place] [address] documented as of this encounter Procedures Procedure Name Priority Date/Time Associated Diagnosis Comments COMPLETE BLOOD COUNT AND DIFFERENTIAL Routine 10/14/2021 C REACTIVE PROTEIN Routine 10/14/2021 CREATININE Routine 10/14/2021 HEPATIC FUNCTION PANEL (ALB,ALK PHOS,ALT,AST,DBIL,TOT DEMIAN,TOT PROT) Routine 10/14/2021 documented in this encounter Results * (ABNORMAL) COMPLETE BLOOD COUNT AND DIFFERENTIAL (10/14/2021) WBC, External 8.95 4.4 - 10.8 [facility] RBC, External 4.55 3.93 - 5.22 [facility] Hemoglobin, External 12.7 11.2 - 15.7 [facility] HCT, External 40.6 36.0 - 46.0 [facility] MCV, External 89.2 80 - 95 [facility] MCH, External 27.9 27.0 - 33.0 [facility] MCHC, External 31.3(A) 32.0 - 36.0 [facility] PLT, External 492(A) 130 - 400 [facility] RDW-CV, External 14.3 11.7 - 14.6 [facility] Neutrophils, External 43.6 [facility] Lymphocytes, External 43.5 [facility] Monocytes, External 8.6 [facility] Eosinophils, External 3.5 [facility] Basophils, External 0.6 [facility] ABS Neutrophils, External 3.91 1.2 - 6.7 [facility] ABS Lymphs, External 3.89(A) 1.2 - 3.4 [facility] ABS Monocytes, External 0.77 0.1 - 0.8 [facility] ABS Eosinophils, External 0.31 0.0 - 0.7 [facility] ABS Basophils, External 0.05 0.0 - 0.2 [facility] Blood VENOUS BLOOD / Unknown 10/14/2021 Venecia Vega MD PACKAGES & DNA P ROBE ORDERABLES Performing Organization Address City/[facility] Co de Phone Number [facility] * HEPATIC FUNCTION PANEL (ALB,ALK PHOS,ALT,AST,DBIL,TOT DEMIAN,TOT PROT) (10/14/2021) Albumin, External 3.9 3.4 - 5.0 [facility] Total Protein, External 7.2 6.4 - 8.2 [facility] Alkaline Phosphatase, External 75 46 - 116 [facility] ALT, External 53 14 - 59 [facility] AST, External 32 15 - 37 [facility] Unconjugated Bilirubin [facility] Conjugated Bilirubin, External 0.1 0.0 - 0.2 [facility] Bilirubin, Total, External 0.5 0.2 - 1.0 [facility] Blood VENOUS BLOOD / Unknown 10/14/2021 Venecia Vega MD CHEMISTRY & BLOO D GAS ORDERABLES Performing Organization Address [facility]/ZIP Co de Phone Number [facility] * CREATININE (10/14/2021) Creatinine, External 0.8 0.55 - 1.02 [facility] GFR, Calculated, External >60 [facility] Blood VENOUS BLOOD / Unknown 10/14/2021 Venecia Vega MD CHEMISTRY & BLOO D GAS ORDERABLES [facility] * (ABNORMAL) C REACTIVE PROTEIN (10/14/2021) C-Reactive Protein, External 0.62(A) 0.0 - 0.3 mg/dL [facility] Blood VENOUS BLOOD / Unknown 10/14/2021 Venecia Vega MD CHEMISTRY & BLOO D GAS ORDERABLES Performing Organization Address City/[facility]/ZIP Co de Phone Number [facility] documented in this encounter Visit Diagnoses Not on filedocumented in this encounter Care Teams Oil Well Services Supervisor Relationship Specialty Start Date End Date Phoebe Iyer FNP PCP - General 07/09/20 11/20/21 documented as of this encounter
--- OUTSIDE RECORDS SUMMARY | 2024-03-14 17:58 | XMS_ITS | Encounter Summary ---
Author Organization [facility] Address [address] [place] [address] Care Team Providers Care Picture Frames Inspector Name Role Phone Phoebe Iyer ABHAY Primary Care Provider [phone] Rebeca Miller APRN Primary Care Provider [phone] Corine Coulter Primary Care Provider [phone] Reason for Visit * Reason Onset Date Comments Prior Auth, Medication 09/22/2021 Xeljanz 5 mg Encounter Details Date Type Department Care Team (Late st Contact Info) Description 09/22/2021 Telephone [facility] Rheumatology [address] [place] [address] Venecia Vega MD [address] [facility] [place] [address] Prior Auth, Medication (Xeljanz 5mg) Social History Tobacco Use Types Packs/Day Years [...] by mouth 2 times daily. 60 Tablet 5 09/23/2021 03/16/2022 documented in this encounter Miscellaneous Notes * Telephone Encounter - Chacha Riojas - 09/22/2021 1058 EDT Prior Authorization Approval Medication: Xeljanz 5mg, BID Insurance Name: VTM Insurance Type: [place] Approval Dates: 09/23/2021 to 09/23/2022 Authorization Number: [id number] Benefits Information: [facility] able to fill? : Yes Required Pharmacy: N/A Additional Info/Other Notes: Prior Authorization Submission Process - Routine Medication: Xeljanz 5mg, BID Insurance: [place] Insurance Type[place] Date [place] Request Received: 09/18/2021 PA Submission Date: 09/22/2021 CMM Monahan: N/A fax form to [facility] Notes: Submitted by: Chacha Phone: [phone] documented in this encounter Plan of Treatment Upcoming Encounters Date Type Department Care Team (Late st Contact Info) Description 03/23/2024 11:15 EDT Telemedicine [facility] Rheumatology [address] [place] [address] Venecia Vega MD [address] [facility] [place] [phone] documented as of this encounter Visit Diagnoses Not on filedocumented in this encounter Discontinued Medications Medication Sig Discontinue Reason Start Date End Da te tofacitinib (XELJANZ) 5 mg tabletIndications:rheumat oid arthritis Take 5 mg by mouth 2 times daily. Reorder 09/23/2021 documented as of this encounter Care Teams Picture Frames Inspector Relationship Specialty Start Date End Date Phoebe Iyer FNP PCP - General 07/09/20 11/20/21 Rebeca Miller APRN [address] [place] [address] PCP - General Family Medicine - Primary Care 11/21/21 03/07/24 Corine Coulter [address] [place] [address] PCP - General Family Medicine - Primary Care 03/08/24 documented as of this encounter
--- OUTSIDE RECORDS SUMMARY | 2024-03-14 17:58 | XMS_ITS | Encounter Summary ---
Author Organization [facility] Address [address] [place] [address] Care Team Providers Care Geographic Area Intelligence Officer Name Role Phone Phoebe Iyer ABHAY Primary Care Provider [phone] Rebeca Miller APRN Primary Care Provider [phone] Corine Coulter Primary Care Provider [phone] Encounter Details Date Type Department Care Team (Late st Contact Info) Description 02/14/2021 Results Only Imaging [facility] Radiology Results [address] [place] [address] Mila Morrell MD [address] [place] [address], [address] [place] [address] Social History Tobacco Use Types Packs/Day Years [...] Contact Info) Description 03/23/2024 11:15 EDT Telemedicine [facility] Rheumatology [address] [place] [phone] Venecia Vega MD [address] [place] [address] [address] [place] [phone] documented as of this encounter Procedures Procedure Name Priority Date/Time Associated Diagnosis Comments US PELVIS TRANSVAGINAL COMPLETE 02/14/2021 12:03 EDT documented in this encounter Results * US PELVIS TRANSVAGINAL (02/14/2021 12:03 EDT) Anatomical Region Laterality Modality Pelvis Ultrasound 02/14/2021 11:5 9 EDT Narrative 02/14/2021 12:03 EDT ? EXAM: ULTRASOUND/TRANSVAGINAL - RABBIT FANCIER W/ DO EX. D/ (1635) ? CLINICAL INFORMATION: ? R10.32 LLQ ABDOMINAL PAIN ? INDICATION: R10.32 LLQ ABDOMINAL PAIN. ? COMPARISON: Pelvic ultrasound 10/14/2018. ? DOPPLER: ? TECHNIQUE: Color and spectral Doppler imaging of the ovaries was ? performed. ? FINDINGS: ? RIGHT OVARY: ??Arterial and venous Doppler waveforms and color flow ? are present. ? LEFT OVARY: Arterial and venous Doppler waveforms and color flow are ? present. ? GRAYSCALE: ? TECHNIQUE: Endovaginal grayscale ultrasound of the pelvis was ? performed. ? FINDINGS: ? UTERUS: Uterus is normal in size, shape and echotexture. It measures ? 3.4 cm x 4.2 cm x 5.4 cm. No intramural mass. Endometrial stripe ? measures 2.5 mm. ? RIGHT OVARY: Normal right ovary containing a few tiny follicles. ? LEFT OVARY: Normal left ovary containing a few tiny follicles. ? PERITONEAL CAVITY: No free peritoneal fluid is identified. ? IMPRESSION: Normal ultrasound of the pelvis. ? REPORT SIGNED IN OTHER VENDOR SYSTEM 02/14/2021 ?Reported By: Luis Antonio Griffin MD ? CC: ? Transcribed Date/Time: 02/14/2021 (1203) ? Architectural Job Captain: ? Printed Date/Time: 02/14/2021 (1203) ? PAGE 1 ? Signed Report ? Procedure Note Luis Antonio Griffin MD - 02/14/2021 EXAM: ULTRASOUND/TRANSVAGINAL - RABBIT FANCIER W/ DO EX. D/ (1635) CLINICAL INFORMATION: R10.32 LLQ ABDOMINAL PAIN INDICATION: R10.32 LLQ ABDOMINAL PAIN. COMPARISON: Pelvic ultrasound 10/14/2018. DOPPLER: TECHNIQUE: Color and spectral Doppler imaging of the ovaries was performed. FINDINGS: RIGHT OVARY: Arterial and venous Doppler waveforms and color flow are present. LEFT OVARY: Arterial and venous Doppler waveforms and color floware present. GRAYSCALE: TECHNIQUE: Endovaginal grayscale ultrasound of the pelvis was performed. FINDINGS: UTERUS: Uterus is normal in size, shape and echotexture. Itmeasures 3.4 cm x 4.2 cm x 5.4 cm. No intramural mass. Endometrial stripe measures 2.5 mm. RIGHT OVARY: Normal right ovary containing a few tiny follicles. LEFT OVARY: Normal left ovary containing a few tiny follicles. PERITONEAL CAVITY: No free peritoneal fluid is identified. IMPRESSION: Normal ultrasound of the pelvis. REPORT SIGNED IN OTHER VENDOR SYSTEM 02/14/2021 Reported By: Luis Antonio Griffin MD CC: Transcribed Date/Time: 02/14/2021 (6382) Architectural Job Captain: Printed Date/Time: 02/14/2021 (3521) PAGE 1 Signed Report Mila Morrell MD IMG OB ORDERABLES documented in this encounter Visit Diagnoses Not on filedocumented in this encounter Care Teams Geographic Area Intelligence Officer Relationship Specialty Start Date End Date Phoebe Iyer FNP PCP - General 07/09/20 11/20/21 Rebeca Miller APRN [address] [place] [phone] PCP - General Family Medicine - Primary Care 11/21/21 03/07/24 Corine Coulter [address] [address] PCP - General Family Medicine - Primary Care 03/08/24 documented as of this encounter
--- OUTSIDE RECORDS SUMMARY | 2024-03-14 17:58 | XMS_ITS | Encounter Summary ---
Author Organization [facility] Address [address] [place] [address] Care Team Providers Care Websphere Administrator Name Role Phone Phoebe Iyer ABHAY Primary Care Provider Encounter Details Date Type Department Care Team (Late st Contact Info) Description 11/10/2021 Specialty Pharmacy [facility] [address] [place] [address] Cortney Hopper [facility] Social History Tobacco Use Types Packs/Day [...] as of this encounter Progress Notes * Madhavi Bejarano - 11/10/2021 1401 EDT Specialty Pharmacy Non-Outreach Documentation Medication:Xeljanz Clinic: [facility] Reason for Encounter: outreach Notes: NEXT FILL 11/14/21 Follow up date: 11/14 Follow up reason: refill documented in this encounter Plan of Treatment Upcoming Encounters Date Type Department Care Team (Late st Contact Info) Description 03/23/2024 11:15 EDT Telemedicine [facility] Rheumatology [address] [place] [address] Venecia Vega MD [address] [facility] [address] [place] [address] documented as of this encounter Visit Diagnoses Not on filedocumented in this encounter Care Teams Websphere Administrator Relationship Specialty Start Date End Date Phoebe Iyer FNP PCP - General 07/09/20 11/20/21 documented as of this encounter
--- OUTSIDE RECORDS SUMMARY | 2024-03-14 17:58 | XMS_ITS | Encounter Summary ---
Author Organization [facility] Address [address] [place] [address] Care Team Providers Care Rehab/Pre Vocational Counselor Name Role Phone Phoebe Iyer ABHAY Primary Care Provider Reason for Referral * Laboratory Services (Routine) - New Request Specialty Diagnoses / Procedures Referred By [facility] Care t Referred To Contact Diagnoses Immunosuppressed status (FORMERLY [facility]) Procedures PATHOLOGY APPROVAL FOR COVID IGG AB [facility] ONLY Venecia Vega MD [address] [place], [place] [address] [address] [address] Referral ID Status Reason Start Date Expiration Date V isits Requested Visits Authorized [id number] New Request 02/26/2021 1 1 Reason for Visit * Reason Comments Follow-up Televideo-Seronegati ve Sponyloarthropathy; Pt reports increased inflammation in wrists, she thinks this may be related to heat. Ankle and knees are sore. Encounter Details Date Type Department Care Team (Late st Contact Info) Description 02/26/2021 9:45 EDT Telemedicine [facility] Rheumatology [address] [place] [address] Venecia Vega MD [address] [place], [place] [address] [address] [place] [address] Immunosuppressed status ([facility]) (Primary Dx); Seronegative spondyloarthropathy; Encounter for long-term (current) use of other medications; Vaccine counseling Social History Tobacco Use Types Packs/Day Years [...] Sign Reading Time Taken Comments Blood Pressure 135/83 02/26/2021 0838 EDT Pulse - - Temperature - - Respiratory Rate - - Oxygen Saturation - - Inhaled Oxygen Concentration - - Weight - - Height - - Body Mass Index - - documented in [...] as of this encounter Progress Notes * Venecia Vega MD - 02/26/2021 0945 EDT [facility] Video Visit Today's visit was provided through telemedicine video conferencing: The location of the patient: Home The location of the provider: Home office Verbal consent: The concept of ???Telemedicine?? has [...] or auxiliary staff: yes. Subjective: Chief Complaint(s): Spondyloarthropathy Seronegative spondyloarthropathy -dx 2017 (son Vinod) knee effusion neg serology. Sister Crohns disease. Patient no gi issues, no uveitis - teeth dark on methotrexate (stopped) Humira (did not tolerate) enbrel (did not tolerate) ??Arava (did not tolerate?)2017 remicade infusions effective but stopped due to severe headaches lasting a week after infusions. ??In 2018 stopped allopathic care to pursue naturopathic care. Rx [id number] anti biotics/supplements prednisone from [place] . PT not effective. Re-eval rheum 06/22. Restart prednisone SSZ 06/22 added plaquenil. ??Added Xeljanz November 2019 with good result ?? FHX sister has Crohn's ( aunt inflammatory arthritis) HPI: Has been having some inflammation in Lower abdomen question if this is related to her bowels.. Going for a colonoscopy next week. Had some abdominal pain, lower belly. Has ct scan. Family members have already been diagnosed with colitis. She has had no blood in her stools. Also more pain in joints hands, knees, ankles. Overall feels Xeljanz is generally worked very well for her OB appt done, no signs of uterine/chief communications officer issue as cause of pain. She is otherwise doing well. Kids will all go back to school. She has been vaccinated -ChoicePass was done in October. Has 4 children. Youngest to not vaccinated. Alsothe children are exposed to their father who is likely not vaccinated and does not follow a mask. Children will be returning to school. is vaccinated. States she follows masking practices.. I have reviewed patient's tobacco history: reports that she has never smoked. She has never used smokeless tobacco. I have reviewed current problem list and current medications. ROS: ROS See HPI Objective: Examination: Home Vitals: BP 135/83 LMP 02/03/2021 Comment: tubal Pertinent exam findings: appears well, neck supple, non-labored breathing, no wheeze, no rash on visible skin and mood and affect appropriate Data reviewed with patient: Most recent labs, med list, past medical history. Allergies. Review of systems. Previous notes and visits. Results for DEVIKA BEJARANO ( ) as of 02/26/2021 10:16 Ref. Range 02/20/2020 15:10 01/13/2021 14:00 Sodium Latest Ref Range: 136 - 145 mEq/L 139 Potassium Latest Ref Range: 3.5 - 5.0 mEq/L 4.3 Chloride Latest Ref Range: 96 - 110 mmol/L 103 CO2 Latest Ref Range: 22 - 32 mEq/L 27 BUN Latest Ref Range: 10 - 26 mg/dL 9 (L) Creatinine Latest Ref Range: 0.52 - 1.04 mg/dL 0.66 Glucose, Serum Latest Ref Range: 70 - 100 mg/dL 89 Calcium Latest Ref Range: 8.5 - 10.5 mg/dL 9.2 Total Protein Latest Ref Range: 6.2 - 8.2 gm/dL 7.2 Albumin Latest Ref Range: 3.4 - 4.9 g/dL 4.0 BILIRUBIN TOTAL - [facility] Latest Ref Range: 0.2 - 1.3 mg/dL 0.3 ALKALINE PHOSPHATASE - [facility] Latest Ref Range: 38 - 126 U/L 69 C-Reactive Protein Latest Ref Range: <10.0 mg/L 13.1 (H) Anion Gap Latest Ref Range: 0 - 18 9 GFR, Calculated Unknown >60 SGOT/AST - [facility] Latest Ref Range: 14 - 36 U/L 23 SGPT/ALT - [facility] Latest Ref Range: 0 - 35 U/L 17 High Sensitivity CRP Latest Ref Range: See Note mg/L 4.16 THYROID STIM HORMONE - [facility] Latest Ref Range: 0.46 - 4.68 uIU/ml 1.10 WHITE BLOOD COUNT - [facility] Latest Ref Range: 4.0 - 12.4 10e3/ul 11.0 RED BLOOD COUNT - [facility] Latest Ref Range: 3.86 - 5.04 10e3/ul 4.32 Hemoglobin Latest Ref Range: 11.6 - 15.2 g/dl 12.6 HCT Latest Ref Range: 34.9 - 44.4 % 39.0 IG# - [facility] Latest Ref Range: 0 - 0.7 10e3/uL 0.04 IG% - [facility] Latest Ref Range: 0 - 0.9 % 0.4 MEAN CELL VOLUME - [facility] Latest Ref Range: 81 - 98 fl 90.3 RED CELL DISTRI WIDTH - [facility] Latest Ref Range: <14.7 % 14.5 MEAN CORPUSCULAR HGB - [facility] Latest Ref Range: 26.7 - 33.3 pg 29.2 MEAN CORPUSCULAR HGB CONC - [facility] Latest Ref Range: 32.1 - 35.9 g/dL 32.3 PLATELET COUNT Latest Ref Range: 141 - 377 10e3/ul 487 (H) Gran # Latest Ref Range: 2.2 - 8.85 10e3/uL 5.5 GRAN % - [facility] Latest Ref Range: 40 - 80 % 50.3 LYMPH% - [facility] Latest Ref Range: 20 - 40 % 38.5 MONO% - [facility] Latest Ref Range: 0 - 12 % 6.7 EOS % - [facility] Latest Ref Range: 0 - 5 % 4 BASO % - [facility] Latest Ref Range: 0 - 2 % 1 LYMPH # - [facility] Latest Ref Range: 1.09 - 3.3 10e3/ul 4.2 (H) MONO # - [facility] Latest Ref Range: 0.1 - 0.8 10e3/uL 0.7 EOS # - [facility] Latest Ref Range: 0.03 - 0.61 10e3/ul 0.40 BASO # - [facility] Latest Ref Range: 0.01 - 0.11 10e/uL 0.05 Assessment & Plan Patient is a 35-year-old woman with a history of seronegative spondyloarthropathy and peripheral arthritis Seronegative spondyloarthropathy -Continue current doses of hydroxychloroquine/Xeljanz Lower abdominal pain -Agree with evaluation for possible inflammatory bowel disease -Xeljanz has a role in treatment of this condition, however, adjustment in therapy may be useful. Vaccination counseling -Need to confirm that she is immune to COVID-19 -Recommend antibody testing -Patient has done what she can to protect herself and her family, however, 2 young children who arenot vaccinated at this time or eligible for vaccination and who were also exposed in their father'zabrina to unvaccinated individuals on a regular basis and will be attending school -Await results of antibody testing -Booster for COVID-19 may be of benefit Return appointment-3 months Contact our office if any concerns. The following individuals and their role did participate in today's encounter visit: Provider: Venecia Vega MD Patient documented in this encounter Plan of Treatment Upcoming Encounters Date Type Department Care Team (Late st Contact Info) Description 03/23/2024 11:15 EDT Telemedicine [facility] Rheumatology [address] [place] [address] Venecia Vega MD [address] [facility] [address] [place] [address] Scheduled Orders Name Type Priority Associated Diagnoses Orde r Schedule PATHOLOGY APPROVAL FOR COVID IGG AB [facility] ONLY Lab Routine Immunosuppressed status ([facility]ERLY [facility]) Ordered: 02/26/2021 documented as of this encounter Visit Diagnoses Diagnosis Immunosuppressed status (HCC-CMS)- Primary Unspecified disorder of immune mechanism Seronegative spondyloarthropathy Spondylosis of unspecified site without mention of myelopathy Encounter for long-term (current) use of other medications Vaccine counseling Other specified counseling documented in this encounter Care Teams Rehab/Pre Vocational Counselor Relationship Specialty Start Date End Date Phoebe Iyer FNP PCP - General 07/09/20 11/20/21 documented as of this encounter
--- OUTSIDE RECORDS SUMMARY | 2024-03-14 17:58 | XMS_ITS | Encounter Summary ---
Author Organization [facility] Address [address] [place] [address] Care Team Providers Care Mandolin Repair Person Name Role Phone Phoebe Iyer ABHAY Primary Care Provider [phone] Reason for Visit * Reason Onset Date Comments Prior Auth, Medication 06/13/2021 Encounter Details Date Type Department Care Team (Late st Contact Info) Description 06/13/2021 Telephone [facility] Rheumatology [address] [place], [place] [id number] Venecia Vega MD [address] [facility] [address] [place] [address] Prior Auth, Medication Social History Tobacco Use Types Packs/Day Years [...] Dispensed Refills Start Date End Da te upadacitinib (RINVOQ) 15 mg tablet extended release 24 hr Take 15 mg by mouth daily. Specialty. 30 Tablet 5 06/24/2021 09/18/2021 documented in this encounter Miscellaneous Notes * Addendum Note - Cortney Hopper RPH - 06/24/2021 0950 ESTAddended by: CORTNEY HOPPER on: 06/24/2021 09:50 Modules accepted: Orders * Telephone Encounter - Katt Stringer RN - 06/16/2021 1343 EST Hepatitis B surface antigen ordered and patient notified. She would like to get it done at [facility] so order faxed there. * Telephone Encounter - Katt Stringer RN - 06/16/2021 0831 EST Ciaran Barr, I checked [facility] and couldn't find any HepB labs. On 09/17/16 Dr. Vega ordered HCV and QTB but that'sit. If needed, I can place orders and call Arabella to let her know. * Telephone Encounter - Mai Iverson RPH - 06/13/2021 1120 EST Prior Authorization Approval Medication: Rinvoq 15mg daily Insurance [place] Approval Dates: 06/13/2021 - 09/11/2021 Authorization Number: [id number] [facility] able to fill? : Yes Required Pharmacy: [facility] Prior Authorization Submission Process - Routine Medication: Rinvoq 15mg daily [place] Insurance [place] Date [place] Request Received: 05/16/2021 [place] Submission Date: Pending [facility] Monahan: N/A - Fax Notes: Submitted by: Trinity Phone: [phone] documented in this encounter Plan of Treatment Upcoming Encounters Date Type Department Care Team (Late st Contact Info) Description 03/23/2024 11:15 EDT Telemedicine [facility] Rheumatology [address] [place] [address] Venecia Vega MD [address] [facility] [address] [place] [phone] documented as of this encounter Visit Diagnoses Diagnosis High risk medication use- Primary Encounter for long-term (current) use of other medications documented in this encounter Discontinued Medications Medication Sig Discontinue Reason Start Date End Da te tofacitinib (XELJANZ) 5 mg tablet Take 1 Tablet by mouth 2 times daily. 02/17/2021 06/24/2021 documented as of this encounter Care Teams Mandolin Repair Person Relationship Specialty Start Date End Date Phoebe Iyer FNP PCP - General 07/09/20 11/20/21 documented as of this encounter
--- OUTSIDE RECORDS SUMMARY | 2024-03-14 17:58 | XMS_ITS | Encounter Summary ---
Author Organization [facility] Address [address] [place] [address] Care Team Providers Care Web Content Manager Name Role Phone Rebeca Miller APRN Primary Care Provider Reason for Visit * Reason Comments New Patient Visit Telemedicine Video Visit * Consult (See Order Priority) - Order Cancelled Specialty Diagnoses / Procedures Referred By Nishant garcia Referred To Contact Hematology and Oncology Diagnoses Thrombocytosis Venecia Vega MD [address] [facility] [address] [place] [address] [facility] [address] [place] [id number] Referral ID Status Reason Start Date Expiration Date Visits Requested Visits Authorized [id number] Order Cancelled Specialty Services Required 12/12/2021 1 1 Encounter Details Date Type Department Care Team (Latest Contact Info) Description 02/02/2022 15:00 EDT Telemedicine [facility] [place] [facility] [place] [address] [place] [address] Adriane West MBBS [address] [facility] [address] [place] [address] Thrombocytosis (Primary Dx); Lymphocytosis; Seronegative spondyloarthropathy; Seronegative rheumatoid arthritis of multiple sites (HCC-CMS) (HCC) Social History Tobacco Use Types Packs/Day Years [...] as of this encounter Progress Notes * Adriane West MBBS - 02/02/2022 1500 EDT HEMATOLOGY CONSULT NOTE [facility] Video Visit I am conducting today's visit by Zoom Video due to the COVID-19 pandemic, and by the recommendations from the [facility] to minimize patient exposure to our medical center. All patients who have routine follow up visits or are not on active cancer treatments will have visits postponed for an appropriate interval (as decided by the physician) or these visits may be offered by telemedicine or phone consultation. This consultation has been reviewed by appropriate clinicalstaff and has been deemed appropriate for a video consultation. The patient consents to a video visit, is at home/work, and I, their MD, am in a private area. The location of the patient: Home The location of the provider: Home Office Verbal consent: The concept of ???Telemedicine?? has been described to the patient.? Patient has been informed of the anticipated benefits and possible risks.? Patient understands the information provided regardingtelemedicine, has had the opportunity to ask questions about this information, and all questions have been answered to patient's satisfaction. Patient consents for the use of telemedicine in his/her medical care and authorizes the transmission of any relevant medical information to providers and their staff involved in patient's medical or mental health care. PATIENT: Arabella Ojeda REFERRING PROVIDER: Venecia Vega, * CHIEF COMPLAINT New Patient Visit and Telemedicine Video Visit HISTORY OF PRESENT ILLNESS 05/13/2016: Platelet count: 464,000. 07/27/2016: Lymphocyte count: 3410. 12/02/2021: Platelet count: 537,000; lymphocyte count: 3470. Patient is being referred for chronic thrombocytosis and lymphocytosis. Patient mentions that she was diagnosed with autoimmune arthritis in June,. She was originally treated for Lyme's disease and did not get better. She continues to complain of stiffness in wrists, knees and ankles. She is currently taking hydroxychloroquine and tofacitinib for autoimmune arthritis. She hopes her symptoms could be better controlled. She does not smoke cigarettes. She occasionally takes steroids for flares of arthritis. She denies chronic infections or history of splenectomy in the past. She believes that she always has chronic health issues. She denies history of DVT/PE in the past. PROBLEM LIST: Patient Active Problem List Diagnosis ??? Seronegative spondyloarthropathy ??? High risk medication use ??? Lyme disease ??? Hepatic steatosis ??? Calcium pyrophosphate deposition disease ??? Liver lesion ??? Right carpal tunnel syndrome ??? Arthritis of knee ??? Seronegative rheumatoid arthritis of multiple sites (HCC-CMS) (HCC) PAST HISTORY: Past Medical History: Diagnosis Date ??? Lyme disease 07/07/2019 Treatment with naturopathy Antibiotics. Supplements and tinctures. Therapy from 02/19 to 06/22 Dr Wyatt at [facility]. ??? Obesity (BMI 30-39.9) ??? Otitis media, recurrent, bilateral ??? Seronegative spondyloarthropathy 07/07/2019 ??? Seronegative spondyloarthropathy 07/07/2019 Past Surgical History: Procedure Laterality Date ??? DILATION AND CURETTAGE OF UTERUS 03/2005 for [facility] Heart ??? TUBAL LIGATION Bilateral 07/2016 ??? WRIST SURGERY Left 2001 ([facility]) ??? WRIST SURGERY Left 03/2007 (ganglion cyst) ??? WRIST SURGERY Left 2008 (cyst) Family History Problem Relation Age of Onset ??? Cancer Mother ??? Thyroid Disease Maternal Grandmother ??? Cancer Paternal Grandfather ??? Inflammatory Bowel Disease Sister Social History Tobacco Use ??? Smoking status: Never Smoker ??? Smokeless tobacco: Never Used Vaping Use ??? Vaping Use: Never used Substance Use Topics ??? Alcohol use: Not Currently ??? Drug use: Never Social History Social History Narrative Lives in [place], [place] with her 4 children. 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 MEDICATIONS Current Outpatient Medications Medication Sig Dispense Refill Last Dose ??? mhbopam-gvgtbqjrcpaal-gcdolmak (EXCEDRIN MIGRAINE) 250-250-65 mg per tablet Take 1 Tablet by mouth every 12 hours as needed for Headaches. Taking ??? fluticasone propionate (FLONASE) 50 mcg/actuation nasal spray Instill 1 [place] into both nostrils daily. 1 Bottle 2 Taking ??? hydrOXYchloroQUINE (PLAQUENIL) 200 mg tablet TAKE ONE TABLET BY MOUTH ONE TIME DAILY 90 Tablet 0 Taking ??? loratadine (CLARITIN) 10 mg tablet Take 10 mg by mouth daily. Taking ??? naproxen sodium (ALEVE) 220 mg capsule Take 220 mg by mouth every 12 hours. Taking ??? omeprazole (PRILOSEC) 40 mg capsule Take 40 mg by mouth daily. Taking ??? tofacitinib (XELJANZ) 5 mg tablet Take 1 Tablet by mouth 2 times daily. 60 Tablet 5 Taking No current facility-administered medications for this visit. ALLERGIES No Known Allergies REVIEW OF SYSTEMS Constitutional: Negative for activity change, appetite change, fatigue and fever. HENT: Negative. Eyes: Negative. Respiratory: Negative. Negative for shortness of breath. Cardiovascular: Negative. Negative for chest pain and leg swelling. Gastrointestinal: Negative. Negative for abdominal distention. Endocrine: Negative. Genitourinary: Negative for difficulty urinating. Musculoskeletal: Positive for arthralgias (Stiffness in wrists, ankles and knees. ) and joint swelling. Skin: Negative. Negative for color change. Allergic/Immunologic: Negative for food allergies. Neurological: Negative. Hematological: Negative. Psychiatric/Behavioral: Negative for agitation. The patient is nervous/anxious. DIAGNOSTIC DATA Results for orders placed or performed in visit on 12/04/21 C REACTIVE PROTEIN Result Value Ref Range C-Reactive Protein, External 0.54 (A) 0.0 - 0.3 mg/dL COMPREHENSIVE METABOLIC PANEL (CMP) Result Value Ref Range GFR, Calculated, External >=60 60 Glucose, Serum, External 99 74 - 106 Albumin, External 3.8 3.4 - 5.0 Total Alkaline Phosphatase, External 83 46 - 116 ALT, External 70 (A) 14 - 59 AST, External 44 (A) 15 - 37 BUN, External 10 7 - 18 Calculated Calcium, External Calcium, External 8.6 8.5 - 10.1 Chloride, External 103 98 - 107 CO2, External 25.0 21.0 - 32.0 Creatinine, External 1.0 0.55 - 1.02 Fasting?, External Potassium, External 4.1 3.5 - 5.1 Sodium, External 139 136 - 145 Total Protein, External 7.3 6.4 - 8.2 Bilirubin, Total, External 0.3 0.2 - 1.0 COMPLETE BLOOD COUNT AND DIFFERENTIAL Result Value Ref Range WBC, External 9.13 4.4 - 10.8 RBC, External 4.57 3.93 - 5.22 Hemoglobin, External 12.8 11.2 - 15.7 HCT, External 40.2 36.0 - 46.0 MCV, External 88 80 - 95 MCH, External 28.0 27.0 - 33.0 MCHC, External 31.8 (A) 32.0 - 36.0 PLT, External 537 (A) 130 - 400 RDW-CV, External 14.6 11.7 - 14.6 Neutrophils, External 48.5% Lymphocytes, External 38.0% Monocytes, External 7.0% Eosinophils, External 5.7% Basophils, External 0.5% ABS Neutrophils, External 4.42 1.2 - 6.7 ABS Lymphs, External 3.47 (A) 1.2 - 3.4 ABS Monocytes, External 0.64 0.1 - 0.8 ABS Eosinophils, External 0.52 0.0 - 0.7 ABS Basophils, External 0.05 0.0 - 0.2 TISSUE TRANSGLUTAMINASE AB Result Value Ref Range Tissue Transglutaminase Ab, IGA, External <1.2 4.0 tTG Ab, IgA, S, External 326 85 - 499 Ref. Range 05/13/2016 07:59 05/22/2016 09:38 07/27/2016 08:30 08/05/2016 09:27 11/24/2016 14:53 06/04/2017 09:11 09/21/2017 07:00 11/17/2017 11:28 01/07/2018 15:29 01/26/2018 11:43 03/01/2018 16:00 09/20/2018 09:04 08/15/2019 08:58 11/23/2019 14:20 02/20/2020 15:10 PLATELET COUNT Latest Ref Range: 141 - 377 10e3/ul 464 (H) 509 (H) 505 (H) 493 (H) 425 (H) 441 (H) 398 391 494 (H) 424 (H) 465 (H) 496 (H) 464 (H) 434 (H) 487 (H) Ref. Range 08/21/2021 00:00 10/14/2021 00:00 12/02/2021 00:00 PLT, External Latest Ref Range: 130 - 400 514 (A) 492 (A) 537 (A) Ref. Range 05/13/2016 07:59 05/22/2016 09:38 07/27/2016 08:30 08/05/2016 09:27 11/24/2016 14:53 06/04/2017 09:11 09/21/2017 07:00 11/17/2017 11:28 01/07/2018 15:29 01/26/2018 11:43 03/01/2018 16:00 09/20/2018 09:04 08/15/2019 08:58 11/23/2019 14:20 02/20/2020 15:10 LYMPH # - [facility] Latest Ref Range: 1.09 - 3.3 10e3/ul 2.91 (H) 2.54 3.41 (H) 4.10 (H) 4.16 (H) 4.29 (H) 3.24 (H) 3.83 (H) 4.36 (H) 2.89 5.29 (H) 3.4 (H) 3.2 4.5 (H) 4.2 (H) VITALS There were no vitals taken for this visit. PHYSICAL EXAM General: Comfortable, cooperative and in no apparent distress NEURO: Alert and oriented x 3 Pertinent exam findings patient can observe: None DIAGNOSIS The primary encounter diagnosis was Thrombocytosis. Diagnoses of Lymphocytosis, Seronegative spondyloarthropathy, and Seronegative rheumatoid arthritis of multiple sites (HCC-CMS) ([facility]) were also pertinent to this visit. ASSESSMENT 36-year-old female with past medical history significant for seronegative rheumatoid arthritis on hydroxychloroquine and xeljanz. 1. Thrombocytosis: Thrombocytosis has been present since 2016. Differential diagnosis for thrombocytosis include reactive processes like autoimmune diseases, iron deficiency, splenectomy, chronic infections, primary bone marrow process. Given history of moderately controlled seronegative autoimmune arthritis, thrombocytosis is likely reactive in nature. I will check serum ferritin level to rule out iron deficiency. Patient denies history of splenectomy. At this age, concern for primary bone marrow process like essential thrombocythemia is low in the differential. 2. Lymphocytosis: Could be reactive in nature from underlying autoimmune arthritis. PLAN -Patient has chronic thrombocytosis since 2016 when she was diagnosed with autoimmune arthritis. -Thrombocytosis is likely reactive in nature. -Rule out iron deficiency. -Essential thrombocythemia is low in the differential. -Lymphocytosis could be reactive in nature from autoimmune arthritis. Follow-up: 3 months, in person visit. Patient initiated video contact with the office Yes Is an established patient (parent, guardian) No E/M provided within previous 7 days for same Assessment No Anticipate E/M service within 24hrs or next available urgent appointment No I spent a total of 45 minutes on the date of this encounter meeting with the patient and reviewing documentation/coordinating care as described in the above note. No procedures were performed at the time of the visit. The following individuals and their role did participate in today's encounter visit: Provider: NOEMI Oliver Patient Orders placed in this visit: Other Orders Placed This Visit Procedures ??? Ferritin ??? Iron ??? IBC Requested Prescriptions No prescriptions requested or ordered in this encounter Adriane West MD Clinical Practice Physician Hematology/ Medical Oncology [facility] Ph no: [phone] CC:Primary Care Provider: Rebeca Miller [address] [facility] [id number] Referring Provider: Venecia Vega MD [address] [place] [address] [address] [place] [address] * Joan Claudio, CHRISTIANO - 02/02/2022 1500 EDT Patient rooming was completed remotely by JOAN CLAUDIO, RN in compliance with efforts to reduceexposure to COVID19. Patient pharmacy verified: Yes Patient insurance verified: Yes Verbal consent given by patient to continue with telemedicine visit: Yes 02/02/22 14:16 * Joan Claudio, CHRISTIANO - 02/02/2022 1500 EDT Left detailed message asking patient to go to out patient lab to have labs drawn. documented in this encounter Plan of Treatment Upcoming Encounters Date Type Department Care Team (Late st Contact Info) Description 03/23/2024 11:15 EDT Telemedicine [facility] Rhe[place]ology [address] [place] [address] Venecia Vega MD [address] [place] [address] [address] [place] [address] Scheduled Orders Name Type Priority Associated Diagnoses Orde r Schedule FERRITIN Lab Routine Thrombocytosis Ordered: 02/02/2022 IRON Lab Routine Thrombocytosis Ordered: 02/02/2022 IBC Lab Routine Thrombocytosis Ordered: 02/02/2022 documented as of this encounter Visit Diagnoses Diagnosis Thrombocytosis- Primary Essential thrombocythemia Lymphocytosis Lymphocytosis (symptomatic) Seronegative spondyloarthropathy Spondylosis of unspecified site without mention of myelopathy Seronegative rheumatoid arthritis of multiple sites ([facility]-CMS) documented in this encounter Care Teams Web Content Manager Relationship Specialty Start Date End Date Rebeca Miller APRN [address] [place] [id number] PCP - General Family Medicine - Primary Care 11/21/21 03/07/24 documented as of this encounter
--- OUTSIDE RECORDS SUMMARY | 2024-03-14 17:58 | XMS_ITS | Encounter Summary ---
Author Organization [facility] Address [address] [place] [address] Care Team Providers Care Molding Utility Worker Name Role Phone Phoebe Iyer ABHAY Primary Care Provider Reason for Visit * Reason Onset Date Comments Labs Only 10/07/2021 Encounter Details Date Type Department Care Team (Late st Contact Info) Description 10/07/2021 Telephone [facility] [place] [place] Rheumatology [address] [place], [place] [phone] Venecia Vega MD [address] [facility] [address] [place] [address] Labs Only Social History Tobacco [...] Telephone Encounter - Cande Young RN - 10/07/2021 1216 EDT Per last visit note patient is to have LFT's and CBC done one month from when they were last drawn on 09/15, and then should have CMP and CBC drawn every 3 month thereafter. Left message with [facility] front end manager staff as Petty was not available. Lab orders re-faxed with notes on instructions for frequency and timing. * Telephone Encounter - Lesly Elizabeth - 10/07/2021 1151 EDT [facility] called back. They are all set, please disregard TE. * Telephone Encounter - Lesly Elizabeth - 10/07/2021 1145 EDT [facility] calling re: lab orders. Patient has been coming in every month for CRP, CBC and hepatic function. Should she be getting them this often? She had them last drawn on 09/15 and is scheduled for 10/14. Will need new standing order sent, along with a new creatinine order. documented in this encounter Plan of Treatment Upcoming Encounters Date Type Department Care Team (Late st Contact Info) Description 03/23/2024 11:15 EDT Telemedicine [facility] Rheumatology [address] [place], [place] [id number] Venecia Vega MD [address] [facility] [address] [place] [address] documented as of this encounter Visit Diagnoses Diagnosis Seronegative rheumatoid arthritis ([facility])- Primary Rheumatoid arthritis High risk medication use Encounter for long-term (current) use of other medications documented in this encounter Care Teams Molding Utility Worker Relationship Specialty Start Date End Date Phoebe Iyer FNP PCP - General 07/09/20 11/20/21 documented as of this encounter
--- OUTSIDE RECORDS SUMMARY | 2024-03-14 17:58 | XMS_ITS | Encounter Summary ---
Author Organization [facility] Address [address] [place] [address] Care Team Providers Care Mirror Installer Name Role Phone Phoebe Iyer ABHAY Primary Care Provider [phone] Reason for Visit * Reason Comments Follow-up For SN Spondyloarthr opathy patient reports ankles/knees still very sore everyday. got bloodwork done 10/14/21. Encounter Details Date Type Department Care Team (Late st Contact Info) Description 10/15/2021 9:45 EDT Telemedicine [facility] Rheumatology [address] [place] [address] Venecia Vega MD [address] [facility] [address] [place] [address] Seronegative rheumatoid arthritis (HCC-CMS) (HCC) (Primary Dx); High risk medication use; Immunocompromised (HCC-CMS) (HCC) (HCC-CMS) Social History Tobacco Use Types Packs/Day Years [...] - - Weight 121.1 kg (267 lb) 10/14/2021 1502 EDT Height 170.2 cm (5' 7) 10/14/2021 1502 EDT Body Mass Index 41.82 10/14/2021 1502 EDT documented in this encounter Functional Status [...] * Patient Instructions* Venecia Vega MD - 10/15/2021 9:45 EDT Prednisone 5 mg a day for 14 days Call if this is ineffective. Want to see you in person if possible in 3 months with labs CBC, CMP, CRP just prior. Contact our office if you have any concerns about not having updated lab request or urethritis. Please hold ibuprofen/naproxen when you are taking prednisone Consider EVUSHELD therapy to reduce your risk of COVID-19 infection none at disease always or higher. This medication is given in the form of intramuscular injection in our office. Please read about it below. Call our office if you have questions. [facility] Patient Instructions cilgavimab and tixagevimab Brand: Juvenal What is the most important information I should know about cilgavimab and tixagevimab? The [place] Food and Drug Administration (FDA) has authorized emergency use of cilgavimab in combinationwith another medicine called tixagevimab for the prevention before exposure of COVID-19 in adults and people 12 years of age and older (weighing at least 40 kg or 88 lbs). Cilgavimab and tixagevimab have not been approved to treat coronavirus or COVID-19. What is cilgavimab and tixagevimab? Cilgavimab in combination with tixagevimab is an experimental medicine being studied for the prevention before exposure of COVID-19. It is not yet known if this medicine is safe and effective. The [place] Food and Drug Administration (FDA) has authorized emergency use of cilgavimab in combinationwith another medicine called tixagevimab for the prevention before exposure of COVID-19 in adults and people 12 years of age and older (weighing at least 40 kg or 88 lbs) who are not currently infected with COVID-19 and: ?? who have not had a known recent exposure to someone infected with COVID-19; ?? who are moderately to severely immunocompromised and may not get an adequate immune response to COVID-19 vaccination; or ?? for whom vaccination with any COVID-19 vaccine is not recommended due to a history of severe adverse reaction to a COVID-19 vaccine. Cilgavimab and tixagevimab is not authorized for use in people: ?? for treatment of COVID-19; or ?? for prevention after exposure of COVID-19 in people who have been exposed to someone infected with COVID-19. Cilgavimab and tixagevimab is not a substitute for vaccination in people for whom COVID-19 vaccine is recommended. People who may benefit from COVID-19 vaccination should get vaccinated. In people who have received a COVID-19 vaccine, cilgavimab and tixagevimab should be given at least2 weeks after vaccination. Cilgavimab and tixagevimab may also be used for purposes not listed in this medication guide. What should I discuss with my healthcare provider before receiving cilgavimab and tixagevimab? You should not use cilgavimab and tixagevimab if you are allergic to it. Tell your doctor if: ?? you had a COVID-19 vaccine; ?? you have heart problems; ?? you have a coagulation disorder or thrombocytopenia (low levels of platelets in the blood); ?? you are or ; or ?? you have any serious or chronic disease. COVID-19 is more likely to cause serious illness or in a woman. Not all risks are known yet, but being treated with cilgavimab and tixagevimab is likely to be less harmful than being infected with COVID-19 during . How are cilgavimab and tixagevimab given? Cilgavimab and tixagevimab are injected into a muscle by a healthcare provider as two separate consecutive injections. Cilgavimab and tixagevimab can be given after 6 months of the initial consecutive injections. Follow your doctor's instructions about receiving a repeat dose if needed. You will be watched for at least 1 hour to make sure you do not have an allergic reaction. Being treated with cilgavimab and tixagevimab will not make you less contagious to other people. Keep using infection control methods such as self-isolation, social distancing, hand-washing, using protective face covering, disinfecting surfaces you touch a lot, and not sharing personal items with others. Cilgavimab and tixagevimab are still being studied and all of the risks are not yet known. What happens if I miss a dose? Cilgavimab is given with tixagevimab in two separate consecutive injections and does not have a daily dosing schedule. What happens if I overdose? In a medical setting an overdose would be treated quickly. What should I avoid while receiving cilgavimab and tixagevimab? Follow your doctor's instructions about any restrictions on food, beverages, or activity. What are the possible side effects of cilgavimab and tixagevimab? Get emergency medical help if you have signs of an allergic reaction: hives; difficult breathing; swelling of your face, lips, tongue, or throat. Some side effects may occur during the injection. Tell your medical caregivers right away if you have: ?? throat irritation, swelling in your face or throat; ?? dizziness, a light-headed feeling (like you might pass out); ?? chest pain, wheezing, shortness of breath; ?? fever, chills, sweating, nausea; ?? fast or slow heartbeats, headache, pounding in your neck or ears; ?? weakness, tiredness; ?? a rash or itching; or ?? muscle pain. Call your doctor if you have new or worsening symptoms after the injection, such as fever, confusion, weakness, tiredness, trouble breathing, or fast or slow heartbeats. Common side effects may include: ?? headache; ?? tiredness; or ?? cough. This is not a complete list of side effects and others may occur. Call your doctor for medical advice about side effects. You may report side effects to FDA at 4-084-LAG-6792. What other drugs will affect cilgavimab and tixagevimab? Other drugs may affect cilgavimab and tixagevimab, including prescription and zejg-zrb-cwydhck medicines, vitamins, and herbal products. Tell your doctor about all other medicines you use. Where can I get more information? Your doctor or pharmacist can provide more information about cilgavimab and tixagevimab. Remember, keep this and all other medicines out of the reach of children, never share your medicines with others, and use this medication only for the indication prescribed. Every effort has been made to ensure that the information provided by [employer]') is accurate, up-to-date, and complete, but no guarantee is made to that effect. Drug information contained herein may be time sensitive. [employer] information has been compiled for use by healthcare practitioners and consumers in the [place] and therefore [employer] does not warrant that uses outside of the [place] are appropriate, unless specifically indicated otherwise. [employer] drug information does not endorse drugs, diagnose patients or recommend therapy. [employer] drug information isan informational resource designed to assist licensed healthcare practitioners in caring for their p atients and/or to serve consumers viewing this service as a supplement to, and not a substitute for, the expertise, skill, knowledge and judgment of healthcare practitioners. The absence of a warningfor a given drug or drug combination in no way should be construed to indicate that the drug or drug combination is safe, effective or appropriate for any given patient. [facility] does not assume any responsibility for any aspect of healthcare administered with the aid of information [facility] provides. The information contained herein is not intended to cover all possible uses, directions, precautions, warnings, drug interactions, allergic reactions, or adverse effects. If you have questions about the drugs you are taking, check with your doctor, nurse or pharmacist. Copyright 6200-4550 [employer] Version: 1.01. Revision date: 06/17/2021. Care instructions adapted under license by [facility]. If you have questions about a medical condition or this instruction, always ask your healthcare professional. [employer] disclaims any warranty or liability for your use of this information. documented in this encounter Ordered Prescriptions Prescription Sig Dispensed Refills Start Date End Da te predniSONE (DELTASONE) 5 mg tabletIndications:Seroneg ative rheumatoid arthritis (HCC-CMS) Take 1 Tablet by mouth daily for 14 days. 14 Tablet 3 10/15/2021 10/29/2021 documented in this encounter Progress Notes * Venecia Vega MD - 10/15/2021 0945 EDT [facility] Video Visit Today's visit [...] auxiliary staff: yes. Subjective: Chief Complaint(s): Follow-up (For SN Spondyloarthropathy patient reports ankles/knees still very sore everyday. got bloodwork done 10/14/21. ) HPI: Arabella Ojeda reports she has been taking tofacitinib for roughly a month. Notes that she has experienced an increase in appetite on the medication. Arthritis slightly better but continues to struggle with pain in her knees, ankles. Swelling persists primarily in lower leg in the form of edema also some soreness around the joints. Sometimes feelsunsteady going downstairs. Labs done yesterday. Continues to use naproxen and ibuprofen alternating but not at the same time. Recovered completely from COVID-19 infection, has been vaccinated. Arthritis not at goal -Goals improve stiffness and swelling mobility. -Avoid falling, but concern right now due to her instability. -Has not had any falls. -Sleeps okay. Increased risk for serious infection with COVID-19 due to use of a Dontae inhibitor. -Masking regularly, has young children, all over age 5. All in public schools. Following social distancing children are vaccinated. Unsure as to whether she would want to participate in EvuSheld therapy. Does not like needles. Would like to think about it a bit more. I have reviewed patient's tobacco history: reports that she has never smoked. She has never used smokeless tobacco. I have reviewed current problem list and current medications. Objective: Examination: Home Vitals: Ht 170.2 cm (67) Wt (!) 121.1 kg (267 lb) BMI 41.82 kg/m?? Pertinent exam findings: appears well, neck supple, no rash on visible skin and mood and affect appropriate Data reviewed with patient: Medication list, allergy list, past medical history. Laboratory testingresults from 10/14/2021 at [facility] -LFTs normal, CBC normal. CRP elevated at 0.6 but improved from previous. Assessment & Plan: Arabella Ojeda is a 36 y.o. female with a history of seronegative spondyloarthropathy which I will recode as seronegative rheumatoid arthritis in order to reflect her peripheral arthritis within the limitations of ICD 10 coding. . She is on tofacitinib therapy. Has been on medication for about a m onth with some improvement but not complete resolution of joint swelling and pain. Not at goal at this time. Has unmet goals with regard to limitations on activity, pain, joint swelling. Due to her use of tofacitinib therapy she is a candidate for EVUSHELD therapy. CBC, CMP to be monitored with tofacitinib therapy. Drug placed to risk for mild increase in renal function, LFT CBC abnormalities as well as increased risk of infection. Patient aware of these risks. 1. Seronegative rheumatoid arthritis (HCC-CMS) ([facility]) predniSONE (DELTASONE) 5 mg tablet Continue to have significant 5 mg twice daily Expect improved control next 1 to 2 weeks -Prednisone burst 5 mg daily x14 days 2. High risk medication use Labs reviewed CRP improved -Repeat CBC, CMP CRP every 3 months -Hold NSAIDs while taking prednisone -Consider Evusheld therapy vs COVID 19 3. Immunocompromised (HCC-CMS) ([facility]) I spent a total of 23 minutes [...] Contact Info) Description 03/23/2024 11:15 EDT Telemedicine [facility] - [facility] Rheumatology [address], [place] [id number] Venecia Vega MD [address] [facility] [address] [place] [phone] documented as of this encounter Visit Diagnoses Diagnosis Seronegative rheumatoid arthritis (HCC-CMS)- Primary Rheumatoid arthritis High risk medication use Encounter for long-term (current) use of other medications Immunocompromised ([facility]-CMS) Unspecified immunity deficiency documented in this encounter Historical Medications * This list may reflect changes made after this encounter. Medication Sig Dispensed Refills Start Date End Date loratadine (CLARITIN) 10 mg tablet Take 1 Tablet by mouth daily. added in this encounter Care Teams Mirror Installer Relationship Specialty Start Date End Date Phoebe Iyer FNP PCP - General 07/09/20 11/20/21 documented as of this encounter
--- OUTSIDE RECORDS SUMMARY | 2024-03-14 17:58 | XMS_ITS | Encounter Summary ---
Author Organization [facility] Address [address] [place] [address] Care Team Providers Care Consultant Internship Name Role Phone Phoebe Iyer ABHAY Primary Care Provider Encounter Details Date Type Department Care Team (Late st Contact Info) Description 03/21/[address] [facility] [place] [address] [place] [address] Venecia Rangel MD [address] [facility] [address] [place] [address] Social History Tobacco Use Types Packs/Day Years [...] Contact Info) Description 03/23/2024 11:15 EDT Telemedicine [facility] Rheumatology [address] [place] [address] Venecia Rangel MD [address] [place] [address] [place] [address] documented as of this encounter Procedures Procedure Name Priority Date/Time Associated Diagnosis Comments TEST C[place]LLED [place] [facility] [place]ine 03/21/2021 11:33 EDT documented in this encounter Results * TEST CANCELLED - [facility] (03/21/2021 11:33 EDT) TEST C[place]LLED - [facility] SEE NOTE 03/21/2021 11:33 EDT [facility] Comment: The following test(s) have been cancelled: TEST: ??COVID ANTIBODY REASON FOR CANCELLATION: ??PER DR. CONTRERAS, DISCUSSED W/DR. RANGEL OFFICE/MD NOTIFIED ??DR. RANGEL 03/21/2021 11:3 3 EDT 03/21/2021 11:33 EDT Venecia Rangel MD CHEMISTRY & BLOO D GAS ORDERABLES [facility] [address] [place] [phone] documented in this encounter Visit Diagnoses Not on filedocumented in this encounter Care Teams Consultant Internship Relationship Specialty Start Date End Date Phoebe Iyer FNP PCP - General 07/09/20 11/20/21 documented as of this encounter
--- OUTSIDE RECORDS SUMMARY | 2024-03-14 17:58 | XMS_ITS | Encounter Summary ---
Author Organization [facility] Address [address] [place] [address] Care Team Providers Care Manager Style Name Role Phone Phoebe Iyer ABHAY Primary Care Provider Reason for Visit * Reason Comments Follow-up F/U Spondyloarhtropa thy.Pt states doing ok.Reports soreness ankles,knees and wrists. Encounter Details Date Type Department Care Team (Late st Contact Info) Description 05/16/2021 14:45 EST Telemedicine [facility] Rheumatology [address] [place], [place] [address] Venecia Vega MD [address] [facility] [address] [place] [address] Seronegative rheumatoid arthritis (HCC-CMS) (HCC) (Primary Dx); Encounter for long-term (current) use of other medications Social History Tobacco Use Types Packs/Day Years [...] - - Weight 121.1 kg (267 lb) 05/16/2021 1125 EST Height - - Body Mass Index 41.82 02/06/2021 1254 EDT documented in this encounter Functional Status [...] * Patient Instructions* Venecia Vega MD - 05/16/2021 14:45 EST Continue Xeljanz until you receive a new prescription for Rinvoq Rinvoq is a once daily medication for your arthritis. Please have laboratory testing drawn at [facility]. Laboratory testing requests have been faxed to their office. -Please continue your hydroxychloroquine for arthritis -I would like to see you in clinic in about 3 months. documented in this encounter Progress Notes * Venecia Vega MD - 05/16/2021 1445 EST [facility] [place] Today's visit was provided through [...] or auxiliary staff: yes. Subjective: Chief Complaint(s): Seronegative ra follow up. Meds losing effect. ? Other options due to hand swelling/pain Seronegative spondyloarthropathy -dx 2017 (son Vinod) knee effusion neg serology. Sister Crohns disease. Patient no gi issues, no uveitis - teeth dark on methotrexate (stopped) Humira (did not tolerate) enbrel (did not tolerate) ??Arava (did not tolerate?)2017 remicade infusions effective but stopped due to severe headaches lasting a week after infusions. ??In 2017 stopped allopathic care to pursue naturopathic care. Rx [id number] anti biotics/supplements prednisone from [place] . PT not effective. Re-eval rheum 06/22. Restart prednisone SSZ 06/22 added plaquenil. ??Added Xeljanz November 2019 with good result ?? FHX sister has Crohn's ( aunt inflammatory arthritis) HPI: Xeljanz does not seem as effective. Received both COVID-19 vaccinations in October. Uneventful. Sometime in January began to experience pain and swelling in knees and ankles. As well as intermittentpain and swelling in her hands. Laboratory testing drawn at that time revealed an elevated CRP, otherwise unremarkable labs. The patient states that recently she is having more joint pain. Did have her Covid booster 3 weeks ago. -Pain in her wrists and sometimes with swelling in the hands -Other times will experience pain and swelling in the ankles. -Knees which have been infected in the past are less swollen. -No recent illness -No interruptions in Xeljanz or hydroxychloroquine therapy. -No other changes in health. Review of systems -Denies change in weight or fevers or chills -No upper respiratory symptoms or shortness of breath -No skin rashes -No GI complaints. -Her 5-year-old son has been vaccinated. Her other 3 children are vaccinated with the exception of her 11-year-old who will soon be 12 years old. Patient and her are waiting until after this child's 12-year-old birthday so that he can receive a higher dose of the Pfizer vaccine and be better protected. I have reviewed patient's tobacco history: reports that she has never smoked. She has never used smokeless tobacco. I have reviewed current problem list and current medications. ROS: ROS Objective: Examination: Home Vitals: Wt (!) 121.1 kg (267 lb) BMI 41.82 kg/m?? Pertinent exam findings: appears well, neck supple, non-labored breathing, no wheeze, no rash on visible skin and mood and affect appropriate Reviewed hand examination via video link. Slight puffiness and dactylitis present of right third index finger with decreased flexion. Data reviewed with patient: Most recent labs, med list, past medical history. Allergies. Review of systems. Previous notes and visits. Assessment & Plan Arabella is 35-year-old woman with a history of seronegative spondyloarthropathy and peripheral arthritis Seronegative ra -Continue current doses of hydroxychloroquine -Recent breakthrough joint pain question triggered by booster dose of COVID-19 vaccine versus loss of efficacy of Xeljanz -Elevated CRP noted in January, dactylitis on exam -Due to needle concerns not a good candidate for injectable agents, infusion therapy not practical given her stated home role with 4 young children -Pursue Rinvoq therapy 15 mg daily replacement for Xeljanz High risk medication -Due for laboratory testing, CRP CBC, CMP -labs faxed to [facility]. Return appointment-3 months Contact our office if any concerns. The following individuals and their role did participate in today's encounter visit: Provider: Venecia Vega MD Patient documented in this encounter Plan of Treatment Upcoming Encounters Date Type Department Care Team (Late st Contact Info) Description 03/23/2024 11:[address] [facility] [place] [address] [place] [address] Venecia Vega MD [address] [place] [address] [place] [address] documented as of this encounter Visit Diagnoses Diagnosis Seronegative rheumatoid arthritis ([facility])- Primary Rheumatoid arthritis Encounter for long-term (current) use of other medications documented in this encounter Discontinued Medications Medication Sig Discontinue Reason Start Date End Da te predniSONE (DELTASONE) 5 mg tablet Take 3 Tablets by mouth daily. For 5 days. Therapy completed 04/21/2021 05/16/2021 omeprazole (PRILOSEC) 20 mg capsule Take 1 Cap by mouth daily. Alternate therapy 02/21/2020 05/16/2021 documented as of this encounter Historical Medications * This list may reflect changes made after this encounter. Medication Sig Dispensed Refills Start Date End Date omeprazole (PRILOSEC) 40 mg capsule Take 1 Capsule by mouth daily. added in this encounter Care Teams Manager Style Relationship Specialty Start Date End Date Phoebe Iyer FNP PCP - General 07/09/20 11/20/21 documented as of this encounter
--- OUTSIDE RECORDS SUMMARY | 2024-03-14 17:58 | XMS_ITS | Encounter Summary ---
Author Organization [facility] Address [address] [place] [address] Care Team Providers Care Restaurant Assistant Name Role Phone Phoebe Iyer ABHAY Primary Care Provider [phone] Reason for Visit * Reason Comments Other Encounter Details Date Type Department Care Team (Late st Contact Info) Description 10/12/2021 Refill [facility] Rheumatology [address] [place] [address] Venecia Vega MD [address] [facility] [address] [address] [place] [phone] Other Social History Tobacco Use Types Packs/Day [...] BY MOUTH ONE TIME DAILY 90 Tablet 10/13/2021 03/04/2022 documented in this encounter Miscellaneous Notes * Telephone Encounter - Cande Young RN - 10/13/2021 1622 EDT Last visit note reviewed and follow up scheduled for 12/12/21. Refill sent as noted. documented in this encounter Plan of Treatment Upcoming Encounters Date Type Department Care Team (Late st Contact Info) Description 03/23/2024 11:15 EDT Telemedicine [facility] Rheumatology [address] [place], [place] [phone] Venecia Vega MD [address] [facility] [address] [place] [phone] documented as of this encounter Visit Diagnoses Diagnosis Spondyloarthropathy- Primary Spondylosis of unspecified site without mention of myelopathy documented in this encounter Discontinued Medications Medication Sig Discontinue Reason Start Date End Da te hydrOXYchloroQUINE (PLAQUENIL) 200 mg tabletIndications:Spondyl oarthropathy Take 1 Tab by mouth daily. 11/29/2020 10/13/2021 documented as of this encounter Care Teams Restaurant Assistant Relationship Specialty Start Date End Date Phoebe Iyer FNP PCP - General 07/09/20 11/20/21 documented as of this encounter
--- OUTSIDE RECORDS SUMMARY | 2024-03-14 17:58 | XMS_ITS | Encounter Summary ---
Author Organization [facility] Address [address] [place] [address] Care Team Providers Care Process Improvement Engineer Name Role Phone Phoebe Iyer ABHAY Primary Care Provider [phone] Encounter Details Date Type Department Care Team (Late st Contact Info) Description 10/21/2021 Specialty Pharmacy [facility] Amb[facility] - [facility] [address] [place] [address] Cortney Hopper [facility] Social History Tobacco [...] Contact Info) Description 03/23/2024 11:15 EDT Telemedicine [facility] Rheumatology [address] [place] [address] Venecia Vega MD [address] [facility] [address] [place] [address] documented as of this encounter Visit Diagnoses Not on filedocumented in this encounter Care Teams Process Improvement Engineer Relationship Specialty Start Date End Date Phoebe Iyer FNP PCP - General 07/09/20 11/20/21 documented as of this encounter
--- OUTSIDE RECORDS SUMMARY | 2024-03-14 17:58 | XMS_ITS | Encounter Summary ---
Author Organization [facility] Address [address] [place] [address] Care Team Providers Care Dry Cure Worker Name Role Phone Phoebe Iyer ABHAY Primary Care Provider Reason for Visit * Reason Comments Follow-up For Spondyloarthropa thy. patient reports joints are inflammed/sore. Mostly knees, ankles, feet are painful. A consistent bothersome soreness, especially at night. seeing specialist for TMJ, wanted to make note of. Encounter Details Date Type Department Care Team (Late st Contact Info) Description 09/18/2021 10:45 EDT Telemedicine [facility] Rheumatology [address] [place] [address] Venecia Vega MD [address] [facility] [address] [place] [address] Seronegative rheumatoid arthritis of multiple sites ([facility]) ([facility]) (Primary Dx); High risk medication use Social [...] - - Weight 121.1 kg (267 lb) 09/17/2021 1558 EDT Height 170.2 cm (5' 7) 09/17/2021 1558 EDT Body Mass Index 41.82 09/17/2021 1558 EDT documented in this encounter Functional Status [...] * Patient Instructions* Venecia Vega MD - 09/18/2021 10:45 EDT Labs should be repeated in 1 month at [facility]. No further invoke Restart Xeljanz 5 mg twice a day Prior authorization sent Okay to use naproxen instead of ibuprofen for pain, new prescription sent through Please update me with any concerns. I had like to see you back in 3 months, someone will call to schedule his appointment documented in this encounter Ordered Prescriptions Prescription Sig Dispensed Refills Start Date End Da te naproxen (NAPROSYN) 500 mg tabletIndications:High risk medication use Take 1 Tablet by mouth 2 times daily as needed for Pain. 60 Tablet 5 09/18/2021 12/12/2021 documented in this encounter Progress Notes * Venecia Vega MD - 09/18/2021 1045 EDT [facility] – [...] staff: yes. Subjective: Chief Complaint(s): Follow-up (For Spondyloarthropathy. patient reports joints are inflammed/sore. Mostly knees, ankles, feet are painful. A consistent bothersome soreness, especially at night. seeing specialist for TMJ, wanted to make note of.) ?? Seronegative spondyloarthropathy -dx 2017 (son Vinod) -sacroiliitis, knee effusion -neg serology. -Sister Crohns disease. Patient no gi issues, no uveitis - teeth dark on methotrexate (stopped) -Humira (did not tolerate) -enbrel (did not tolerate) ??Arava (did not tolerate) -2018 remicade infusions effective but stopped due to severe headaches lasting a week after infusions. -2018 stopped allopathic care to pursue naturopathic care. Rx [id number] antibiotics/supplements prednisone from [place] not effective - PT not effective. - Re-eval rheum 06/22. Restart prednisone SSZ 06/22 added plaquenil. -??Added Xeljanz November 2019 with good result lost effect 2020 Rinvoq-2020 ?? COVID 19 infection -Jul 2021 -vaccinated and boosted. HPI: Arabella Ojeda reports she is experiencing a flareup of her arthritis. -Ankle swelling -Knee swelling -Increased pain and stiffness. -Off of Rinvoq x 1 month. Most recent liver function tests had returned to normal. -Appointment with hepatology scheduled based on abnormal ultrasound. Ultrasound showed gallstones, 1 of which is mobile. No biliary duct dilatation. She has not steatohepatitis. Endorses that at times she gets severe abdominal pain. Colonoscopy unrevealing. Develops cramping, worse at night. Sometimes associated with right or left-sided pain. -No GI upset. -For pain using naproxen 500 mg twice a day. Swollen joints -Bilateral feet knees -Morning stiffness several hours -Current DMARD therapy, hydroxychloroquine. Nonsteroidals. Recently seen by TMJ specialist -Frequent headaches jaw pain -Will be fitted for an oral appliance -Mentions that incidentally she was advised that she had a narrow airway unclear of the significance of this finding. -Sometimes does experience shortness of breath. -No chest pain I have reviewed patient's tobacco history: reports that she has never smoked. She has never used smokeless tobacco. I have reviewed current problem list and current medications. Objective: Examination: Home Vitals: Ht 170.2 cm (67) Wt (!) 121.1 kg (267 lb) BMI 41.82 kg/m?? Pertinent exam findings: appears well, no rash on visible skin and mood and affect appropriate Data reviewed with patient: Most recent labs, ultrasound results, previous notes, medication list allergies. Prior medications tried for arthritis Assessment & Plan: Arabella Ojeda is a 36 y.o. female with a history of seronegative rheumatoid arthritis. She had been on up dasatinib therapy, medication stopped due to abnormal LFTs. Experiencing a significant flare of arthritis. Previously treated with Xeljanz. Unable to tolerate injective therapy due to needlephobia. Methotrexate and leflunomide have been ineffective. She has been troubled by abnormal LFTs,has a known mobile gallstone of unclear significance and has experienced abdominal discomfort. Plan Seronegative rheumatoid arthritis Out of control with multijoint flare, elevated CRP off of therapy, hydroxychloroquine therapy alonenot adequate -Continue hydroxychloroquine -Restart Xeljanz 5 mg twice daily -No further Rinvoq therapy due to abnormal LFTs likely exacerbated by this medication based on temporal increase in LFTs, resolution of elevated LFTs with discontinuation of med -Repeat LFTs 1 month, CBC at that time as well. Then CBC CMP every 3 months for high risk medication. Abnormal ultrasound Has intermittent right upper quadrant pain abnormal LFTs fatty liver -GI referral pending -Hep A serology negative. -Previously hep C and hep B negative. TMJ diagnosis -Likely in some part related to her underlying arthritis -Airway narrowing of unclear significance, will be seeing PCP Return appointment 3 months. I spent a total of 30 minutes in discussion with the patient as described in the progress note on this encounter on the the day of this encounter. The following individuals and their role did participate in today's encounter visit: Provider: Venecia Vega MD Patient documented in this encounter Plan of Treatment Upcoming Encounters Date Type Department Care Team (Late st Contact Info) Description 03/23/2024 11:15 EDT Telemedicine [facility] [place] [address] [place] [address] Venecia Vega MD [address] [facility] [address] [place] [address] documented as of this encounter Visit Diagnoses Diagnosis Seronegative rheumatoid arthritis of multiple sites ([facility])- Primary High risk medication use Encounter for long-term (current) use of other medications documented in this encounter Discontinued Medications Medication Sig Discontinue Reason Start Date End Da te upadacitinib (RINVOQ) 15 mg tablet extended release 24 hr Take 15 mg by mouth daily. Specialty. Alternate therapy 06/24/2021 09/18/2021 naproxen (NAPROSYN) 500 mg tabletIndications:Seronegativ e spondyloarthropathy Take 1 Tab by mouth 2 times daily as needed for Pain. Reorder 07/07/2019 09/18/2021 documented as of this encounter Historical Medications * This list may reflect changes made after this encounter. Medication Sig Dispensed Refills Start Date End Date tofacitinib (XELJANZ) 5 mg tabletIndications:rheumat oid arthritis Take 5 mg by mouth 2 times daily. 09/23/2021 added in this encounter Care Teams Dry Cure Worker Relationship Specialty Start Date End Date Phoebe Iyer FNP PCP - General 07/09/20 11/20/21 documented as of this encounter
--- OUTSIDE RECORDS SUMMARY | 2024-03-14 17:58 | XMS_ITS | Encounter Summary ---
Author Organization [facility] Address [address] [place] [address] Care Team Providers Care Nurse Practitioner Physicians Assistant Name Role Phone Sihreen Phoebe BLANK Primary Care Provider [phone] Rebeca Miller APRN Primary Care Provider [phone] Corine Coulter Primary Care Provider [phone] Encounter Details Date Type Department Care Team (Late st Contact Info) Description 06/20/2021 Lab Requisition [facility] Pathology & Laboratory Medicine - [facility] [address] [place], [place] [id number] Outr Resulting Lab, Provider Social History Tobacco [...] Contact Info) Description 03/23/2024 11:15 EDT Telemedicine [facility] Rheumatology [address] [place] [id number] Venecia Vega MD [address] [place] [address] [address] [place] [address] documented as of this encounter Procedures Procedure Name Priority Date/Time Associated Diagnosis Comments HEPATITIS B SURFACE ANTIGEN Routine 06/19/2021 14:00 EST documented in this encounter Results * HEPATITIS B SURFACE ANTIGEN (06/19/2021 14:00 EST) Hep B Surface Ag Negative Negative 06/23/2021 10:22 EST [facility] Blood VENOUS BLOOD / Unknown 06/19/2021 14:00 EST 06/20/2021 16:50 EST Provider Outr Resulting Lab CHEMISTRY & BLOOD GAS ORDERABLES [facility] [address] [place] [address] documented in this encounter Visit Diagnoses Not on filedocumented in this encounter Care Teams Nurse Practitioner Physicians Assistant Relationship Specialty Start Date End Date Phoebe Iyer FNP PCP - General 07/09/20 11/20/21 Rebeca Miller APRN [address] [place] [address] PCP - General Family Medicine - Primary Care 11/21/21 03/07/24 Corine Coulter [address] [address] PCP - General Family Medicine - Primary Care 03/08/24 documented as of this encounter
--- OUTSIDE RECORDS SUMMARY | 2024-03-14 17:58 | XMS_ITS | Encounter Summary ---
Author Organization [facility] Address [address] [place] [address] Care Team Providers Care Personal Insurance Advisor Name Role Phone Shireen Phoebe BLANK Primary Care Provider [phone] Rebeca Miller APRN Primary Care Provider [phone] Corine Coulter Primary Care Provider [phone] Encounter Details Date Type Department Care Team (Late st Contact Info) Description 09/15/2021 Lab Requisition [facility] Pathology & Laboratory Medicine - [facility] [address], [place] [id number] Outr Resulting Lab, Provider Social History Tobacco [...] Info) Description 03/23/2024 11:[address] [facility] Rheumatology [address] [place], [place] [id number] Venecia Vega MD [address] [place] [address] [address] [place] [address] documented as of this encounter Procedures Procedure Name Priority Date/Time Associated Diagnosis Comments HEPATITIS A TOTAL ANTIBODY W REFLEX Routine 09/15/2021 8:30 EDT documented in this encounter Results * HEPATITIS A TOTAL ANTIBODY W REFLEX (09/15/2021 8:30 EDT) Hepatitis A Antibody, Total Negative Negative 09/16/2021 9:33 EDT [facility] Blood VENOUS BLOOD / Unknown 09/15/2021 8:30 EDT 09/15/2021 20:54 EDT Narrative [facility] - 09/16/2021 9:33 EDT The result of this assay can be falsely elevated (Positive) due to the consumption of Biotin. Provider Outr Resulting Lab CHEMISTRY & BLOOD GAS ORDERABLES [facility] [address] [place] [address] documented in this encounter Visit Diagnoses Not on filedocumented in this encounter Care Teams Personal Insurance Advisor Relationship Specialty Start Date End Date Phoebe Iyer FNP PCP - General 07/09/20 11/20/21 Rebeca Miller APRN [address] [place] [address] PCP - General Family Medicine - Primary Care 11/21/21 03/07/24 Corine Coulter [address] [address] PCP - General Family Medicine - Primary Care 03/08/24 documented as of this encounter
--- OUTSIDE RECORDS SUMMARY | 2024-03-14 17:58 | XMS_ITS | Encounter Summary ---
Author Organization [facility] Address [address] [place] [address] Care Team Providers Care Rn Oncology Name Role Phone Phoebe Iyer ABHAY Primary Care Provider Encounter Details Date Type Department Care Team (Late st Contact Info) Description 06/24/2021 Specialty Pharmacy [facility] Ambulatory Pharm[facility] - [facility] [address] [place] [address] Cortney Hopper [facility] Social History [...] as of this encounter Progress Notes * Cortney Hopper RPH - 06/24/2021 0903 EST Left voicemail requesting call back at clinic line. Calling to touch base regarding Rinvoq approval and offer [facility]. * Cortney Hopper RPH - 06/24/2021 0903 EST [facility] Rheumatology Medication Therapy Initiation Note Arabella Ojeda is a 36 y.o. female who will be starting treatment with Rinvoq for rheumatoid arthritis. Planned Start Date: 06/26/21, Duration: TBD I performed a complete review of the patient???s medical record, including medications, immunizations, and allergies. Clinically relevant drug interactions identified: None Drug Interaction management plan: Would need to re-assess with medication changes Potential barriers to therapy: No Assessment & Plan Indication, effectiveness, safety, and convenience of specialty medications were reviewed today. Method of Education: Telephone Taught to: Patient Counseled the patient on the following: Therapeutic rationale / Goals of therapy discussed Dosage and administration discussed - once daily dosing, Arabella was glad that she will not have BID dosing anymore Safe handling, storage, and disposal reviewed Therapy contraindications discussed Possible adverse effects and management discussed - reviewed major warnings and signs to watch for (serious infection risk, DVT/PE and CV events, diverticulitis, changes in blood work and cholesterollevels) Possible drug and prescription drug interactions discussed Adherence and missed doses discussed Adherence tools reviewed: directed education now once daily dosing, easier for her to remember Lab monitoring and follow-up discussed. Will plan on sending lab work (CBC and CMP) to [place] forcompletion with phone call follow up in ~1 month. Wait to send orders as lab was confused last timeon what orders to complete. Will plan on checking cholesterol levels around next appointment, 08/14/21 as this should be evaluated ~12 weeks after starting medication. Questioned high platelet levels and if due to inflammatory state from arthritis. Informed Arabella I would check with to verify, but that is a possibility. Information regarding Rinvoq provided to patient. Offered [facility] services, Arabella would like to enroll. Prescription sent to pharmacy and Arabella was told that pharmacy should be reaching out in a few days to schedule medication delivery. No further questions, encouraged Arabella to reach out if any comes up. Barriers to Education: None Outcomes of Education: Verbalized understanding Follow up: - Phone call: ~4 weeks - Labs: CBC and CMP in ~4 weeks; cholesterol levels in ~12 weeks - Clinic appointment: 08/14/[address]Jones Cortney Hopper, PharmD documented in this encounter Plan of Treatment Upcoming Encounters Date Type Department Care Team (Late st Contact Info) Description 03/23/2024 11:15 EDT Telemedicine [facility] Rheumatology [address] [place], [place] [address] Venecia Vega MD [address] [facility] [address] [place] [phone] documented as of this encounter Visit Diagnoses Not on filedocumented in this encounter Care Teams Rn Oncology Relationship Specialty Start Date End Date Phoebe Iyer FNP PCP - General 07/09/20 11/20/21 documented as of this encounter
--- OUTSIDE RECORDS SUMMARY | 2024-03-14 17:58 | XMS_ITS | Encounter Summary ---
Author Organization [facility] Address [address] [place] [address] Care Team Providers Care Engagement Engineer Name Role Phone PaulRebeca George AGUILERA Primary Care Provider Encounter Details Date Type Department Care Team (Late st Contact Info) Description 02/10/2022 Specialty Pharmacy [facility] Ambulatory Pharmacy - [facility] [address] [place] [address] Cortney Hopper [facility] Social History Tobacco Use Types Packs/Day [...] encounter Progress Notes * Shelley Cortes - 02/10/2022 0853 EDT [facility] Specialty Pharmacy Delivery Information Hours: Wednesday-Wednesday 8:30am - 5:00pm *Pharmacist available solution specialist 25/01 Delivery Service: [employer] Delivery Window: None Specified Date of Delivery: 02/13/22 Tracking # : [id number] documented in this encounter Plan of Treatment Upcoming Encounters Date Type Department Care Team (Late st Contact Info) Description 03/23/2024 11:15 EDT Telemedicine [facility] Rheumatology [address] [place], [place] [phone] Venecia Vega MD [address] [facility] [address] [place] [phone] documented as of this encounter Visit Diagnoses Not on filedocumented in this encounter Care Teams Engagement Engineer Relationship Specialty Start Date End Date Rebeca Miller APRN [address] [place] [phone] PCP - General Family Medicine - Primary Care 11/21/21 03/07/24 documented as of this encounter
--- OUTSIDE RECORDS SUMMARY | 2024-03-14 17:58 | XMS_ITS | Encounter Summary ---
Author Organization [facility] Address [address] [place] [address] Care Team Providers Care Revenue Integrity Analyst Name Role Phone Phoebe Iyer ABHAY Primary Care Provider Reason for Visit * Reason Comments Follow-up F/U SNRA.Pt reports jointts are very sore and soreness throughout her body.Just restarted Rinvoq last Wednesday because had Covid.Held it for a couple of weeks. Encounter Details Date Type Department Care Team (Latest Contact Info) Description 07/30/2021 15:15 EST Telemedicine [facility] [place] [address] [place] [address] Venecia Vega MD [address] [facility] [address] [place] [address] Seronegative spondyloarthropathy (Primary Dx); Sacroiliitis (HCC-CMS) (HCC) (HCC-CMS); High risk medication use Social History [...] - - Weight 121.1 kg (267 lb) 07/30/2021 1305 EST Height - - Body Mass Index [...] Progress Notes * Venecia Vega MD - 07/30/2021 1515 EST [facility] Video Visit Today's visit [...] swelling/pain Seronegative spondyloarthropathy -dx 2017 (son Vinod) -sacroiliitis, knee effusion -neg serology. -Sister Crohns disease. Patient no gi issues, no uveitis - teeth dark on methotrexate (stopped) -Humira (did not tolerate) -enbrel (did not tolerate) ??Arava (did not tolerate) -2018 remicade infusions effective but stopped due to severe headaches lasting a week after infusions. -2018 stopped allopathic care to pursue naturopathic care. Rx [id number] antibiotics/supplements prednisone from [place] not effective - PT not effective. - Re-eval rheum 06/22. Restart prednisone SSZ 06/22 added plaquenil. -??Added Xeljanz November 2019 with good result lost effect 2020 Rinvoq-2020 ?? COVID 19 infection -Jul 2021 -vaccinated and boosted. HPI: Arthritis Started back on the Rinvoq Missed two weeks of therapy Had COVID, infected in mid Jul, recovered Has lower back pain, seems to be getting worse Previously ? Endometriosis, but does not have. Some ovarian cysts on us Has low back pain at night. Stiff sore, bad lately, wakes at night. During am stiff, better when active very busy all day with 4 young sons. Then pain starts when she is recumbent Better with naproxen 500 mg at night Tylenol Off of rinvoq x 2 weeks due to COVID 19 Feels she is over COVID now, just a little congestion. Feels less sick and nauseated. Has noticed more pain in lower back, on top of chronic back pain. ? What to do Review of systems -Denies change in weight or fevers or chills -No upper respiratory symptoms or shortness of breath since recovery from COVID 19 infection Jul 2021 -No skin rashes -No GI complaints. I have reviewed patient's tobacco history: reports that she has never smoked. She has never used smokeless tobacco. I have reviewed current problem list and current medications. Objective: Examination: Home Vitals: Wt (!) 121.1 [...] notes and visits. Assessment & Plan Arabella Ojeda is a 36 y.o. female with a history of seronegative spondyloarthropathy and peripheral arthritis and sacroiliitis. Presents today with increased back pain at night, xray 2017 reviewed and shows SI arthritis. Seronegative spondyloarthropathy with sacroiliitis -Continue current doses of hydroxychloroquine -Recent breakthrough joint pain question triggered by booster dose of COVID-19 vaccine versus loss of efficacy of Xeljanz -Elevated CRP noted in June but was feeling better then on rinvoq -pain worse during COVID off of Rinvoq -Due to needle concerns not a good candidate for injectable agents at this time, infusion therapy not practical given her stated home role with 4 young children -Naproxen 500 mg at hs or up to bid -resume Rinvoq, will know benefit within a month of starting, fast onset of action High risk medication -Due for laboratory testing, CRP CBC, CMP in next 1-2 weeks Return appointment- September will call for appt Contact our office if any concerns. The following individuals and their role did participate in today's encounter visit: Provider: Venecia Vega MD Patient documented in this encounter Plan of Treatment Upcoming Encounters Date Type Department Care Team (Late st Contact Info) Description 03/23/2024 11:15 EDT Telemedicine [facility] Rheumatology [address] [place] [address] Venecia Vega MD [address] [place] [address] [address] [place] [address] documented as of this encounter Visit Diagnoses Diagnosis Seronegative spondyloarthropathy- Primary Spondylosis of unspecified site without mention of myelopathy Sacroiliitis ([facility]) Sacroiliitis, not elsewhere classified High risk medication use Encounter for long-term (current) use of other medications documented in this encounter Care Teams Revenue Integrity Analyst Relationship Specialty Start Date End Date Phoebe Iyer FNP PCP - General 07/09/20 11/20/21 documented as of this encounter
--- OUTSIDE RECORDS SUMMARY | 2024-03-14 17:58 | XMS_ITS | Encounter Summary ---
Author Organization [facility] Address [address] [place] [address] Care Team Providers Care Ground Water Technician Name Role Phone Rebeca Miller WILLY Primary Care Provider [phone] Encounter Details Date Type Department Care Team (Late st Contact Info) Description 02/16/2022 Abstract [facility] - [facility] [place] Rhe[place]ology [address] [place], [place] [id number] Katt Stringer RN Social History Tobacco Use Types Packs/Day [...] 11:15 EDT Telemedicine [facility] Rheumatology [address] [place], [place] [id number] Venecia Vega MD [address] [facility] [address] [place] [address] documented as of this encounter Procedures Procedure Name Priority Date/Time Associated Diagnosis Comments COMPLETE BLOOD COUNT AND DIFFERENTIAL Routine 02/13/2022 C REACTIVE PROTEIN Routine 02/13/2022 COMPREHENSIVE METABOLIC PANEL (CMP) Routine 02/13/2022 documented in this encounter Results * (ABNORMAL) COMPLETE BLOOD COUNT AND DIFFERENTIAL (02/13/2022) WBC, External 12.91(A) 4.4 - 10.8 [facility] RBC, External 4.53 3.93 - 5.22 [facility] Hemoglobin, External 12.7 11.2 - 15.7 [facility] HCT, External 39.7 36.0 - 46.0 [facility] MCV, External 88 80 - 95 [facility] MCH, External 28.0 27.0 - 33.0 [facility] MCHC, External 32.0 32.0 - 36.0 [facility] PLT, External 557(A) 130 - 400 [facility] RDW-CV, External 14.4 11.7 - 14.6 [facility] Neutrophils, External 60.3% [facility] Lymphocytes, External 30.1% [facility] Monocytes, External 7.4% [facility] Eosinophils, External 1.5% [facility] Basophils, External 0.5% [facility] ABS Neutrophils, External 7.78(A) 1.2 - 6.7 [facility] ABS Lymphs, External 3.89(A) 1.2 - 3.4 [facility] ABS Monocytes, External 0.96(A) 0.1 - 0.8 [facility] ABS Eosinophils, External 0.19 0.0 - 0.7 [facility] ABS Basophils, External 0.06 0.0 - 0.2 [facility] Blood VENOUS BLOOD / Unknown 02/13/2022 Venecia Vega MD PACKAGES & DNA P SERENEE ORDERABLES [facility] * (ABNORMAL) COMPREHENSIVE METABOLIC PANEL (CMP) (02/13/2022) GFR, Calculated, External >=60 60 [facility] Glucose, Serum, External 96 74 - 106 [facility] Albumin, External 3.9 3.4 - 5.0 [facility] Total Alkaline Phosphatase, External 73 46 - 116 [facility] ALT, External 62(A) 14 - 59 [facility] AST, External 42(A) 15 - 37 [facility] BUN, External 10 7 - 18 [facility] Calculated Calcium, External [facility] Calcium, External 8.8 8.5 - 10.1 [facility] Chloride, External 103 98 - 107 [facility] CO2, External 27.9 21.0 - 32.0 [facility] Creatinine, External 0.9 0.55 - 1.02 [facility] Fasting?, External [facility] Potassium, External 4.0 3.5 - 5.1 [facility] Sodium, External 140 136 - 145 [facility] Total Protein, External 7.8 6.4 - 8.2 [facility] Bilirubin, Total, External 0.4 0.2 - 1.0 [facility] Blood VENOUS BLOOD / Unknown 02/13/2022 Venecia Vega MD CHEMISTRY & BLOO D GAS ORDERABLES Performing Organization Address City/[facility]/ZIP Co de Phone Number [facility] * (ABNORMAL) C REACTIVE PROTEIN (02/13/2022) C-Reactive Protein, External 0.40(A) 0.0 - 0.3 [facility] Blood VENOUS BLOOD / Unknown 02/13/2022 Venecia Vega MD CHEMISTRY & BLOO D GAS ORDERABLES Performing Organization Address City/[facility]/ZIP Co de Phone Number [facility] documented in this encounter Visit Diagnoses Not on filedocumented in this encounter Care Teams Ground Water Technician Relationship Specialty Start Date End Date Rebeca Miller APRN [address] [place] [address] PCP - General Family Medicine - Primary Care 11/21/21 03/07/24 documented as of this encounter
--- OUTSIDE RECORDS SUMMARY | 2024-03-14 17:58 | XMS_ITS | Encounter Summary ---
Author Organization [facility] Address [address] [place] [address] Care Team Providers Care Painter Maintenance Name Role Phone Shireen Phoebe BLANK Primary Care Provider [phone] Rebeca Miller APRN Primary Care Provider [phone] Corine Coulter Primary Care Provider [phone] Encounter Details Date Type Department Care Team (Late st Contact Info) Description 01/14/2021 Lab Requisition [facility] Pathology & Laboratory Medicine - [facility] [address] [place], [place] [phone] Outr Resulting Lab, Provider Social History Tobacco [...] Contact Info) Description 03/23/2024 11:15 EDT Telemedicine [facility] Rheumatology [address] [place] [address] Venecia Vega MD [address] [facility] [address] [place] [address] documented as of this encounter Procedures Procedure Name Priority Date/Time Associated Diagnosis Comments HIGH SENSITIVITY C-REACTIVE PROTEIN (CARDIOVASCULAR DISEASE) Routine 01/13/2021 14:00 EDT documented in this encounter Results * HIGH SENSITIVITY C-REACTIVE PROTEIN (CARDIOVASCULAR DISEASE) (01/13/2021 14:00 EDT) [facility] High Sensitivity CRP 4.16 See Note mg/L 01/14/2021 16:52 EDT [facility] Comment: Reference Range: ??Source: [employer] Clinical Practice Recommendations, 2003 ??Low Risk: ? <1.0 mg/L ??Average Risk: ?? 1.0 - 3.0 mg/L ??High Risk: ?>3.0 mg/L ??Indeterminate*: >10.0 mg/L ??*May be an indication of another source of inflammation or infection Blood VENOUS BLOOD / Unknown 01/13/2021 14:00 EDT 01/14/2021 16:24 EDT Provider Outr Resulting Lab CHEMISTRY & BLOOD GAS ORDERABLES [facility] [address] [place] [address] documented in this encounter Visit Diagnoses Not on filedocumented in this encounter Care Teams Painter Maintenance Relationship Specialty Start Date End Date Phoebe Iyer FNP PCP - General 07/09/20 11/20/21 Rebeca Miller APRN [address] [place] [address] PCP - General Family Medicine - Primary Care 11/21/21 03/07/24 Corine Coulter [address] [place] [address] PCP - General Family Medicine - Primary Care 03/08/24 documented as of this encounter
--- OUTSIDE RECORDS SUMMARY | 2024-03-14 17:58 | XMS_ITS | Encounter Summary ---
Author Organization [facility] Address [address] [place] [address] Care Team Providers Care Continuous Mining Machine Company Miner Name Role Phone Phoebe Iyer ABHAY Primary Care Provider [phone] Reason for Visit * Reason Onset Date Comments Results 08/22/2021 Encounter Details Date Type Department Care Team (Late st Contact Info) Description 08/22/2021 Telephone [facility] - [facility] Rheumatology [address] [place] [phone] Katt Stringer RN Results Social History Tobacco Use Types Packs/Day [...] Telephone Encounter - Katt Stringer RN - 08/22/2021 1121 EST When I reviewed Arabella's labs with her she did say that she started Topiramate 25 mg TID for migraines one week ago. * Telephone Encounter - Katt Stringer RN - 08/22/2021 1045 EST Reviewed lab results with arabella. She has been holding Rinvoq and hasn't heard from [facility] about theRUQ ultrasound. Order refaxed and she will call today to schedule and let us know via the portal when it is scheduled. * Telephone Encounter - Katt Stringer RN - 08/22/2021 1044 EST ----- Message from Glenny Parks APRN sent at 08/22/2021 10:26 EST ----- Regarding: RE: Elevated LFTs Labs reviewed. Persistent elevation of AST/ALT despite holding Rinvoq. Continue to hold Rinvoq and schedule abdominal ultrasound. ----- Message ----- From: Katt Stringer RN Sent: 08/22/2021 8:30 EST To: Glenny Parks APRN Subject: Elevated LFTs LFTs were elevated when checked in June so Dr. Vega ordered a RUQ US which hasn't been done yet and Arabella was to stop her Rinvoq. LFTs are higher on recheck. Please advise on how I should reviewresults with Arabella. Thank you. ----- Message ----- From: Lesly Elizabeth Sent: 08/22/2021 8:08 EST To: [facility] Rheumatology Nurse documented in this encounter Plan of Treatment Upcoming Encounters Date Type Department Care Team (Late st Contact Info) Description 03/23/2024 11:15 EDT Telemedicine [facility] Rheumatology [address] [place] [address] Venecia Vega MD [address] [facility] [address] [place] [address] documented as of this encounter Visit Diagnoses Not on filedocumented in this encounter Care Teams Continuous Mining Machine Company Miner Relationship Specialty Start Date End Date Phoebe Iyer FNP PCP - General 07/09/20 11/20/21 documented as of this encounter
--- OUTSIDE RECORDS SUMMARY | 2024-03-14 17:58 | XMS_ITS | Encounter Summary ---
Author Organization [facility] Address [address] [place] [address] Care Team Providers Care Traveling Plant Operator Name Role Phone Phoebe Iyer ABHAY Primary Care Provider [phone] Encounter Details Date Type Department Care Team (Late st Contact Info) Description 06/23/2021 Orders Only [facility] - [facility] Rheumatology [address] [place], [place] [address] Cande Young RN Social History Tobacco Use [...] 03/23/2024 11:15 EDT Telemedicine [facility] Rheumatology [address] [place], [place] [address] Venecia Vega MD [address] [facility] [address] [place] [address] documented as of this encounter Visit Diagnoses Not on filedocumented in this encounter Care Teams Traveling Plant Operator Relationship Specialty Start Date End Date Phoebe Iyer FNP PCP - General 07/09/20 11/20/21 documented as of this encounter
--- OUTSIDE RECORDS SUMMARY | 2024-03-14 17:58 | XMS_ITS | Encounter Summary ---
Author Organization [facility] Address [address] [place] [address] Care Team Providers Care Angle Shear Operator Name Role Phone Phoebe Iyer ABHAY Primary Care Provider [phone] Reason for Visit * Reason Onset Date Comments Results 08/07/2021 Encounter Details Date Type Department Care Team (Late st Contact Info) Description 08/07/2021 Telephone [facility] - [facility] Rheumatology [address] [place], [place] [phone] Venecia Vega MD [address] [facility] [address] [place] [address] Results Social History Tobacco Use Types Packs/Day [...] Telephone Encounter - Cande Young RN - 08/07/2021 1102 EST Right Upper Quad US ordered to be done at [facility]. * Telephone Encounter - Cande Young RN - 08/07/2021 1027 EST Spoke with Arabella and advised her of abnormal labs per Dr. Vega. She is in agreement to stop the Rinvoq and recheck her labs in 2 weeks. She is also in agreement to get US done and would like order sent to [facility]. * Telephone Encounter - Venecia Vega MD - 08/07/2021 1012 EST Arabella's labs are abnormal Her liver enzymes are up and her platelet count is high again She will need to stop the Rinvoq as these changes are happening on the medication She needs to repeat the labs CBC lfts in 2 weeks -off of Rinvoq Also needs Right Upper quadrant US d/t abnormal lfts ? If she wants that at [facility] or [facility] -ok wherever works best for her. Please have her update us as to how she is doing in two weeks. * Telephone Encounter - Venecia Vega MD - 08/07/2021 1011 EST ----- Message from Cande Young RN sent at 08/07/2021 10:02 EST ----- Lab results for your review. ----- Message ----- From: Lesly Elizabeth Sent: 08/07/2021 8:26 EST To: [facility] Rheumatology Nurse documented in this encounter Plan of Treatment Upcoming Encounters Date Type Department Care Team (Late st Contact Info) Description 03/23/2024 11:15 EDT Telemedicine [facility] - [facility] Rheumatology [address] [place] [address] Venecia Vega MD [address] [facility] [address] [place] [phone] documented as of this encounter Visit Diagnoses Diagnosis Abnormal LFTs (liver function tests)- Primary Other abnormal blood chemistry documented in this encounter Care Teams Angle Shear Operator Relationship Specialty Start Date End Date Phoebe Iyer FNP PCP - General 07/09/20 11/20/21 documented as of this encounter
--- OUTSIDE RECORDS SUMMARY | 2024-03-14 17:58 | XMS_ITS | Encounter Summary ---
Author Organization [facility] Address [address] [place] [address] Care Team Providers Care Licensed Sales Producer Name Role Phone PaulRebeca George AGUILERA Primary Care Provider [phone] Encounter Details Date Type Department Care Team (Late st Contact Info) Description 01/09/2022 Specialty Pharmacy [facility] [address] [place] [address] Cortney Hopper [facility] Social History Tobacco Use [...] EDT Telemedicine [facility] Rheumatology [address] [place] [address] Venecia Vega MD 130 [facility] [address] [place] [address] documented as of this encounter Visit Diagnoses Not on filedocumented in this encounter Care Teams Licensed Sales Producer Relationship Specialty Start Date End Date Rebeca Miller APRN [address] [place] [phone] PCP - General Family Medicine - Primary Care 11/21/21 03/07/24 documented as of this encounter
--- OUTSIDE RECORDS SUMMARY | 2024-03-14 17:58 | XMS_ITS | Encounter Summary ---
Author Organization [facility] Address [address] [place] [address] Care Team Providers Care Epidemiology Investigator Name Role Phone Phoebe Iyer ABHAY Primary Care Provider Encounter Details Date Type Department Care Team (Late st Contact Info) Description 09/23/2021 Specialty Pharmacy [facility] - [facility] [address] [place] [address] Cortney Hopper [facility] Social History Tobacco Use Types Packs/Day Years [...] Contact Info) Description 03/23/2024 11:15 EDT Telemedicine [facility] Rheumatology [address] [place] [address] Venecia Vega MD [address] [facility] [address] [place] [address] documented as of this encounter Visit Diagnoses Not on filedocumented in this encounter Care Teams Epidemiology Investigator Relationship Specialty Start Date End Date Phoebe Iyer FNP PCP - General 07/09/20 11/20/21 documented as of this encounter
--- OUTSIDE RECORDS SUMMARY | 2024-03-14 17:58 | XMS_ITS | Encounter Summary ---
Author Organization [facility] Address [address] [place] [address] Care Team Providers Care Home Health Care Respiratory Therapist Name Role Phone Phoebe Iyer ABHAY Primary Care Provider [phone] Encounter Details Date Type Department Care Team (Late st Contact Info) Description 08/22/2021 Abstract [facility] [place] [address] [place], [place] [address] Katt Stringer RN Social History Tobacco Use [...] Contact Info) Description 03/23/2024 11:15 EDT Telemedicine [facility] Rheumatology [address] [place], [place] [address] Venecia Vega MD [address] [facility] [address] [place] [address] documented as of this encounter Procedures Procedure Name Priority Date/Time Associated Diagnosis Comments COMPLETE BLOOD COUNT AND DIFFERENTIAL Routine 08/21/2021 C REACTIVE PROTEIN Routine 08/21/2021 TSH Routine 08/21/2021 COMPREHENSIVE METABOLIC PANEL (CMP) Routine 08/21/2021 documented in this encounter Results * TSH (08/21/2021) Pathologist [facility] TSH, External 0.95 0.36 - 3.74 [facility] Blood VENOUS BLOOD / Unknown 08/21/2021 Venecia Vega MD CHEMISTRY & BLOO D GAS ORDERABLES [facility] * (ABNORMAL) COMPLETE BLOOD COUNT AND DIFFERENTIAL (08/21/2021) WBC, External 11.66(A) 4.4 - 10.8 [facility] RBC, External 4.57 3.93 - 5.22 [facility] Hemoglobin, External 13.0 11.2 - 15.7 [facility] HCT, External 40.9 36.0 - 46.0 [facility] MCV, External 89.5 80 - 95 [facility] MCH, External 28.4 27 - 33 [facility] MCHC, External 31.8(A) 32 - 36 [facility] PLT, External 514(A) 130 - 400 [facility] RDW-CV, External 14.5 11.7 - 14.6 [facility] Neutrophils, External 60.5 [facility] Lymphocytes, External 26.8 [facility] Monocytes, External 8.6 [facility] Eosinophils, External 3.0 [facility] Basophils, External 0.6 [facility] ABS Neutrophils, External 7.05(A) 1.2 - 6.7 [facility] ABS Lymphs, External 3.12 1.2 - 3.4 [facility] ABS Monocytes, External 1.0(A) 0.1 - 0.8 [facility] ABS Eosinophils, External 0.35 0 - 0.7 [facility] ABS Basophils, External 0.07 0 - 0.2 [facility] Blood VENOUS BLOOD / Unknown 08/21/2021 Venecia Vega MD PACKAGES & DNA P SERENEE ORDERABLES [facility] * (ABNORMAL) COMPREHENSIVE METABOLIC PANEL (CMP) (08/21/2021) GFR, Calculated, External >=60 60 [facility] Glucose, Serum, External 84 74 - 106 [facility] Albumin, External 3.9 3.4 - 5.0 [facility] Total Alkaline Phosphatase, External 83 46 - 116 [facility] ALT, External 94(A) 14 - 59 [facility] AST, External 65(A) 15 - 37 [facility] BUN, External 8 7 - 18 [facility] Calculated Calcium, External [facility] Calcium, External 9.0 8.5 - 10.1 [facility] Chloride, External 105 98 - 107 [facility] CO2, External 23.2 21 - 32 [facility] Creatinine, External 0.9 0.55 - 1.02 [facility] Fasting?, External [facility] Potassium, External 4.0 3.5 - 5.1 [facility] Sodium, External 138 136 - 145 [facility] Total Protein, External 7.6 6.4 - 8.2 [facility] Bilirubin, Total, External 0.3 0.2 - 1.0 [facility] Blood VENOUS BLOOD / Unknown 08/21/2021 Venecia Vega MD CHEMISTRY & BLOO D GAS ORDERABLES Performing Organization Address City/[facility]/ZIP Co de Phone Number [facility] * (ABNORMAL) C REACTIVE PROTEIN (08/21/2021) C-Reactive Protein, External 1.29(A) 0.0 - 0.3 [facility] Blood VENOUS BLOOD / Unknown 08/21/2021 Venecia Vega MD CHEMISTRY & BLOO D GAS ORDERABLES Performing Organization Address City/[facility]/ZIP Co de Phone Number [facility] documented in this encounter Visit Diagnoses Not on filedocumented in this encounter Care Teams Home Health Care Respiratory Therapist Relationship Specialty Start Date End Date Phoebe Iyer FNP PCP - General 07/09/20 11/20/21 documented as of this encounter
--- OUTSIDE RECORDS SUMMARY | 2024-03-14 17:58 | XMS_ITS | Encounter Summary ---
Author Organization [facility] Address [address] [place] [address] Care Team Providers Care Elevated Guard Name Role Phone PaulRebeca George AGUILERA Primary Care Provider Encounter Details Date Type Department Care Team (Late st Contact Info) Description 12/11/2021 Specialty Pharmacy [facility] Ambulatory [facility] - [facility] [address] [place] [address] Cortney Hopper [facility] [...] Contact Info) Description 03/23/2024 11:15 EDT Telemedicine [facility] Rheumatology [address] [place] [address] Venecia Vega MD [address] [facility] [address] [place] [address] documented as of this encounter Visit Diagnoses Not on filedocumented in this encounter Care Teams Elevated Guard Relationship Specialty Start Date End Date Rebeca Miller APRN [address] [place] [phone] PCP - General Family Medicine - Primary Care 11/21/21 03/07/24 documented as of this encounter
--- OUTSIDE RECORDS SUMMARY | 2024-03-14 17:58 | XMS_ITS | Encounter Summary ---
Author Organization [facility] Address [address] [place] [address] Care Team Providers Care Tape Librarian Name Role Phone Paul Rebeca George AGUILERA Primary Care Provider [phone] Reason for Visit * Reason Onset Date Comments Labs Only 02/24/2022 Encounter Details Date Type Department Care Team (Late st Contact Info) Description 02/24/2022 Telephone [facility] Adult Hematology & Oncology [address] [place] [address] Adriane West, NOEMI [address] [facility] [address] [place] [address] Labs Only Social History Tobacco [...] as of this encounter Miscellaneous Notes * Result Encounter Note - Adriane West MBBS - 03/02/2022 1320 EDT Please let the patient know that stool occult blood test is negative. NOEMI Oliver * Telephone Encounter - Catherine Silverio RN - 02/25/2022 0912 EDT Spoke with patient aware of below and agrees with plan. Patient requesting to have stool cards done at [facility] as it is a long way to travelto brain picker one day and drop off another. Spoke with Petty at [facility] states they can give patient cards and develop them at there clinic they would just need orders. Orders completed and faxed. [facility] will fax results to our office. Dr. West- Patient questioning dose of Ferrous Sulfate advised patient 325mg 1 tablet Every other day. Do you agree with dosing? * Telephone Encounter - Adriane West MBBS - 02/25/2022 0823 EDT I reviewed lab work from 02/16/2022: Transferrin saturation is low at 8%. Serum ferritin is low at 25. Please let the patient know that she has iron deficiency. This can cause mild thrombocytosis. She should take ferrous sulfate, 1 tablet every other day. I ordered stool occult blood test to rule out GI source of bleeding. Please ask her to get the test done. Thanks, NOEMI Oliver * Telephone Encounter - Mary Aldridge - 02/24/2022 110 EDT Patient called and request call back with lab results from 02/16/22. Call out to [facility] they will fax over results today. Please call patient at [phone]. documented in this encounter Plan of Treatment Upcoming Encounters Date Type Department Care Team (Late st Contact Info) Description 03/23/2024 11:15 EDT Telemedicine [facility] Rheumatology [address] [place] [address] Venecia Vega MD [address] [facility] [address] [place] [phone] documented as of this encounter Procedures Procedure Name Priority Date/Time Associated Diagnosis Comments ZZPOCT OCCULT BLOOD SLIDE TEST X 3 Routine 03/02/2022 Thrombocytosis documented in this encounter Results * POCT OCCULT BLOOD SLIDE TEST X 3 (03/02/2022) Developer Lot Number [facility] POINT OF CARE Developer Expiration Date [facility] POINT OF CARE Card/Slide Lot Number #1 [facility] POINT OF CARE Card/Slide Expiration Date #1 [facility] POINT OF CARE Card Slide #1 Collection Date: 02/27/22 [facility] POINT OF CARE Occult Blood Test Result #1 Negative Negative [facility] POINT OF CARE Positive Control Blue? #1 [facility] POINT OF CARE Negative Control Clear? #1 [facility] POINT OF CARE Card/Slide Lot Number #2 [facility] POINT OF CARE Card/Slide Expiration Date #2 [facility] POINT OF CARE Card Slide #2 Collection Date: 08/31/21 [facility] POINT OF CARE Occult Blood Test Result #2 Negative Negative [facility] POINT OF CARE Positive Control Blue? #2 [facility] POINT OF CARE Negative Control Clear? #2 [facility] POINT OF CARE Card/Slide Lot Number #3 [facility] POINT OF CARE Card/Slide Expiration Date #3 [facility] POINT OF CARE Card Slide #3 Collection Date: 03/01/22 [facility] POINT OF CARE Occult Blood Test Result #3 Negative Negative [facility] POINT OF CARE Positive Control Blue? #3 [facility] POINT OF CARE Negative Control Clear? #3 [facility] POINT OF CARE Feces SPECIMEN FROM RECTUM / Unknown 03/02/2022 Adriane FRANKLIN POINT OF CARE TEST ORDERABLES [facility] POINT OF CARE documented in this encounter Visit Diagnoses Diagnosis Thrombocytosis- Primary Essential thrombocythemia documented in this encounter Care Teams Tape Librarian Relationship Specialty Start Date End Date Rebeca Miller APRN [address] [place] [phone] PCP - General Family Medicine - Primary Care 11/21/21 03/07/24 documented as of this encounter
--- OUTSIDE RECORDS SUMMARY | 2024-03-14 17:58 | XMS_ITS | Encounter Summary ---
Author Organization [facility] Address [address] [place] [address] Care Team Providers Care Oil Field Laborer Name Role Phone Phoebe Iyer ABHAY Primary Care Provider [phone] Encounter Details Date Type Department Care Team (Late st Contact Info) Description 06/23/2021 Abstract [facility] - [facility] Rheumatology [address] [place], [place] [address] Cande Young RN Social History Tobacco Use [...] Info) Description 03/23/2024 11:15 EDT Telemedicine [facility] Rheumatology [address] [place], [place] [address] Venecia Vega MD [address] [facility] [address] [place] [address] documented as of this encounter Procedures Procedure Name Priority Date/Time Associated Diagnosis Comments COMPLETE BLOOD COUNT AND DIFFERENTIAL Routine 06/19/2021 C REACTIVE PROTEIN Routine 06/10/2021 COMPREHENSIVE METABOLIC PANEL (CMP) Routine 06/10/2021 documented in this encounter Results * (ABNORMAL) COMPLETE BLOOD COUNT AND DIFFERENTIAL (06/19/2021) WBC, External 9.87 4.4 - 10.8 [facility] RBC, External 4.53 3.93 - 5.22 [facility] Hemoglobin, External 12.7 11.2 - 15.7 [facility] HCT, External 40.0 36.0 - 46.0 [facility] MCV, External 88.3 80 - 95 [facility] MCH, External 28.0 27.0 - 33.0 [facility] MCHC, External 31.8(A) 32.0 - 36.0 [facility] PLT, External 555(A) 130 - 400 [facility] RDW-CV, External 13.6 11.7 - 14.6 [facility] Neutrophils, External 52.6 [facility] Lymphocytes, External 36.1 [facility] Monocytes, External 7.5 [facility] Eosinophils, External 3.0 [facility] Basophils, External 0.5 [facility] ABS Neutrophils, External 5.19 1.2 - 6.7 [facility] ABS Lymphs, External 3.56(A) 1.2 - 3.4 [facility] ABS Monocytes, External 0.74 0.1 - 0.8 [facility] ABS Eosinophils, External 0.30 0.0 - 0.7 [facility] ABS Basophils, External 0.05 0.0 - 0.2 [facility] Blood VENOUS BLOOD / Unknown 06/19/2021 Venecia Vega MD PACKAGES & DNA P ROBE ORDERABLES [facility] * (ABNORMAL) COMPREHENSIVE METABOLIC PANEL (CMP) (06/10/2021) GFR, Calculated, External >60 60 [facility] Glucose, Serum, External 90 74 - 106 [facility] Albumin, External 3.8 3.4 - 5.0 [facility] Total Alkaline Phosphatase, External 76 46 - 116 [facility] ALT, External 77(A) 14 - 59 [facility] AST, External 59(A) 15 - 37 [facility] BUN, External 14 7 - 18 [facility] Calculated Calcium, External [facility] Calcium, External 8.9 8.5 - 10.1 [facility] Chloride, External 105 98 - 107 [facility] CO2, External 26.4 21.0 - 32.0 [facility] Creatinine, External 0.9 0.55 - 1.02 [facility] Fasting?, External [facility] Potassium, External 4.3 3.5 - 5.1 [facility] Sodium, External 140 136 - 145 [facility] Total Protein, External 7.1 6.4 - 8.2 [facility] Bilirubin, Total, External 0.4 0.2 - 1.0 [facility] Blood VENOUS BLOOD / Unknown 06/10/2021 Venecia Vega MD CHEMISTRY & BLOO D GAS ORDERABLES Performing Organization Address City/[facility] Co de Phone Number [facility] * (ABNORMAL) C REACTIVE PROTEIN (06/10/2021) C-Reactive Protein, External 0.83(A) 0.0 - 0.3 mg/dL [facility] Blood VENOUS BLOOD / Unknown 06/10/2021 Venecia Vega MD CHEMISTRY & BLOO D GAS ORDERABLES Performing Organization Address City/[facility] Co de Phone Number [facility] documented in this encounter Visit Diagnoses Not on filedocumented in this encounter Care Teams Oil Field Laborer Relationship Specialty Start Date End Date Phoebe Iyer FNP PCP - General 07/09/20 11/20/21 documented as of this encounter
--- OUTSIDE RECORDS SUMMARY | 2024-03-14 17:58 | XMS_ITS | Encounter Summary ---
Author Organization [facility] Address [address] [place] [address] Care Team Providers Care Experimental Machining Lab Manager Name Role Phone Rebeca Miller APRN Primary Care Provider [phone] Reason for Visit * Reason Comments Follow-up For SPRA. left vm Encounter Details Date Type Department Care Team (Late st Contact Info) Description 12/12/2021 15:15 EDT Telemedicine [facility] Rheumatology [address] [place] [address] Venecia Vega MD [address] [facility] [address] [address] [place] [address] Seronegative rheumatoid arthritis (HCC-CMS) ([facility]) (Primary Dx); High risk medication use; Thrombocytosis Social History [...] * Patient Instructions* Venecia Vega MD - 12/12/2021 15:15 EDT Referring to [facility] Heme, cannot locate a web portal developer at [facility] just before next appointment Let me know how your jaw does after the pt. See you in the fall. Call/message if questions. documented in this encounter Progress Notes * Venecia Vega MD - 12/12/2021 1515 EDT [facility] Video Visit Today's visit was provided through [...] staff: yes. Subjective: Chief Complaint(s): Follow-up (For SPRA. left vm) Seronegative rheumatoid arthritis -failed methotrexate/arava/remicade/rinvoq -on tofacitinib 5 mg bid since 2020 Overweight Elevated liver functions -weight loss HPI: Arabella Ojeda reports she is doing ok overall with some new health issues affecting jaw. More pain in jaw. Seeing TMJ specialist [place] pain on left side of her face Also advised that she has some airway narrowing. Has no sob so no action For pain in jaw now takes Excedrin migraine and Aleve Doing pt for her jaw pain soon. Appliance for jaw pain. Arthritis seronegative arthritis Elsewhere she has less arthritis pain in knees Elbows Feels xeljanz works better than other meds LFTS She has been seen in GI Advised to lose 5% body weight Neg Celiac work up I have reviewed patient's tobacco history: reports that she has never smoked. She has never used smokeless tobacco. I have reviewed current problem list and current medications. Objective: Examination: Home Vitals: There were no vitals taken for this visit. Pertinent exam findings: appears well, neck supple, no rash on visible skin and mood and affect appropriate Data reviewed with patient: labs, gi note, medication list Assessment & Plan: Arabella Ojeda is a 36 y.o. female with a history of seronegative rheumatoid arthritis on xeljanzand hydroxychloroquine. Knee issues, recent jaw pain Mild elevation lfts, GI advised weight loss. Has persistent elevation in platelets ? Etiology 1. Seronegative rheumatoid arthritis (HCC-CMS) (HCC) stable on xeljanz. Has jaw pain ? related to arthritis 2. High risk medication use elevated lfts ? etiology Gi recs weight loss 5%Bodyweight 3. Thrombocytosis AMB CONS/FOLLOW UP HEMATOLOGY persistent elevation despite rx arthirits ? etiology > 500 Refer heme for eval other causes. I spent a total of 23 minutes [...] Contact Info) Description 03/23/2024 11:15 EDT Telemedicine [facility] Rheumatology [address] [place] [address] Venecia Vega MD [address] [facility] [address] [address] [place] [phone] documented as of this encounter Visit Diagnoses Diagnosis Seronegative rheumatoid arthritis ([facility]-CMS)- Primary Rheumatoid arthritis High risk medication use Encounter for long-term (current) use of other medications Thrombocytosis Essential thrombocythemia documented in this encounter Discontinued Medications Medication Sig Discontinue Reason Start Date End Da te naproxen (NAPROSYN) 500 mg tabletIndications:High risk medication use Take 1 Tablet by mouth 2 times daily as needed for Pain. Alternate therapy 09/18/2021 12/12/2021 ibuprofen (MOTRIN) 200 mg tablet Take 600 mg by mouth as needed for Pain. Takes 3 tabs twice a day. Alternate therapy 12/12/2021 acetaminophen (TYLENOL) 500 mg tablet Take 2 Tabs by mouth every 6 hours as needed. Alternate therapy 12/12/2021 documented as of this encounter Historical Medications * This list may reflect changes made after this encounter. Medication Sig Dispensed Refills Start Date End Date crzbyrq-oenhcfawqbdhl-caj feine (EXCEDRIN MIGRAINE) 250-250-65 mg per tablet Take 1 Tablet by mouth every 12 hours as needed for Headaches. naproxen sodium (ALEVE) 220 mg capsule Take 220 mg by mouth as needed. 04/29/2022 added in this encounter Care Teams Experimental Machining Lab Manager Relationship Specialty Start Date End Date Rebeca Miller APRN [address] [place] [phone] PCP - General Family Medicine - Primary Care 11/21/21 03/07/24 documented as of this encounter
--- OUTSIDE RECORDS SUMMARY | 2024-03-14 17:58 | XMS_ITS | Encounter Summary ---
Author Organization [facility] Address [address] [place] [address] Care Team Providers Care Superintendent Pier Name Role Phone Rebeca Miller WILLY Primary Care Provider [phone] Encounter Details Date Type Department Care Team (Late st Contact Info) Description 11/21/[address] [facility] [address] [place], [place] [phone] Miquel Haynes MD [address] [place] [address] [address] [place] [address] Social History Tobacco Use Types Packs/Day Years [...] as of this encounter Progress Notes * Miquel Haynes MD - 11/21/2021 0800 EDT Gastroenterology & Hepatology Clinic Note The Gastroenterology service was consulted to see Arabella Ojeda for fatty liver Requesting Physician: Phoebe Iyer HPI: 36 y.o.female with a history of seronegative RA and seronegative spondyloarthropathy who was referred for fatty liver. Patient has had intermittently elevated LFTs since 2017. She has had hepatic steatosis on imaging since 2017. She reports treatment with methotrexate in the past for at most 2-3 years. She more recently was on upadacitinib and had LFT elevation which resolved with discontinuationof the medication. No jaundice, scleral icterus, or edema. No alcohol use. No family history of liver disease. She has a grandfather with gallbladder cancer. No colon cancer in the family. She does report some intermittent RUQ/right lateral pain. This began a few months ago. The pain happens a few times a month. It tends to occur at night. It will wake her from sleep. Pain is sharp andlasts about 30 minutes before she falls back to sleep. It is often present, but more of a discomfort than pain by the time she wakes. It is sometimes associated with nausea. She has regularly been waking with nausea. Pain does not radiate to the back. It seems to get better with acetaminophen and warm packs. Patient has not noticed an association with positional changes or eating (usually begins 3-4 hours after eating). She does take omeprazole 40mg at bedtime. She also reports constant abdominal bloating which has been present for some time. ROS: Full review of systems was negative except as detailed above. Past Medical History: Diagnosis Date ??? Lyme disease 07/07/2019 Treatment with naturopathy Antibiotics. Supplements and tinctures. Therapy from 02/19 to 06/22 Dr Wyatt at [facility]. ??? Obesity (BMI 30-39.9) ??? Otitis media, recurrent, bilateral ??? Seronegative spondyloarthropathy 07/07/2019 ??? Seronegative spondyloarthropathy 07/07/2019 Past Surgical History: Procedure Laterality Date ??? DILATION AND CURETTAGE OF UTERUS 03/2005 for [facility] ??? TUBAL LIGATION Bilateral 07/2016 ??? WRIST SURGERY Left 2001 ([place] [facility]) ??? WRIST SURGERY Left 03/2007 (ganglion cyst) ??? WRIST SURGERY Left 2008 (cyst) MEDICATION LIST: Current Outpatient Medications Medication ??? acetaminophen (TYLENOL) 500 mg tablet ??? fluticasone propionate (FLONASE) 50 mcg/actuation nasal spray ??? hydrOXYchloroQUINE (PLAQUENIL) 200 mg tablet ??? ibuprofen (MOTRIN) 200 mg tablet ??? loratadine (CLARITIN) 10 mg tablet ??? naproxen (NAPROSYN) 500 mg tablet ??? omeprazole (PRILOSEC) 40 mg capsule ??? tofacitinib (XELJANZ) 5 mg tablet No current facility-administered medications for this visit. No Known Allergies Social History Tobacco Use ??? Smoking status: Never Smoker ??? Smokeless tobacco: Never Used Vaping Use ??? Vaping Use: Never used Substance Use Topics ??? Alcohol use: Not Currently ??? Drug use: Never Family History Problem Relation Age of Onset ??? Cancer Mother ??? Thyroid Disease Maternal Grandmother ??? Cancer Paternal Grandfather ??? Inflammatory Bowel Disease Sister PE: Gen: NAD. AAOx3 Skin: Warm. Dry. No rashes or lesions HEENT: Anicteric Sclera Neuro: Spontaneously moving bilateral upper and lower extremities without focal deficits Laboratory/Imaging/Procedures: TBili 0.5, AST 32, ALT 53, Alk Phos 75, albumin 3.9 WBC 8.95, Hb 12.7, PLT 492k FIB4 of 0.3 RUQ US (Aug 2021) - hepatic steatosis. Cholelithiasis Impression: 36 y.o. female with a history of seronegative RA and seronegative spondyloarthropathy who was referred for fatty liver due to NAFLD. We reviewed her low risk of significant hepatic fibrosis at this time based on a low FIB4 score and that this is something that should be monitored periodically going forward to assess for the progression of hepatic fibrosis. The dynamic changes in her LFTs may be explained by MTX and upacitinib use or they may alternatively be due to NAFLD. Autoimmune liver disease unlikely given normalization. I am not certain what is causing her RUQ pain. Pain description is atypical for biliary colic and her elevated LFTs do not correlate with the pain to suggest choledocholithiasis or sphincter of oddi dysfunction. Acid peptic disease unlikely as it occurred while on omeprazole 40mg daily. There's a very good possibility the pain is functional or musculoskeletal. We did review the importance of excluding celiac disease as a cause of bloating. We also reviewed the use of the low FODMAP diet to try and identify dietary causes of bloating. Recommendations: -Emphasized the importance of diet, exercise, and weight loss with goal weight reduction of 5% (reduces steatohepatitis) - 10% (reduces fibrosis) of body weight -Calorie deficit of 500kcal per day if BMI >25 -CBC and LFTs every 3-5 years to calculate FIB4. -If FIB4 becomes indeterminant (>1.45), refer back to GI for staging of hepatic fibrosis with Fibroscan -Would evaluate for autoimmune liver disease if LFTs persistently >100 -HepA and B vaccination if not previously administered -Statins are okay for use in NAFLD (would only avoid if decompensated cirrhosis) -Continued alcohol abstinence -TTG and IgA faxed to [facility] -Recommended taking omeprazole 30 minutes before breakfast -Low FODMAP diet reviewed and hand out provided -If persistent RUQ pain, it may be reasonable to see a surgeon -Follow up as needed The total time I spent on this new patient visit on 11/21/21 was 45 minutes. Miquel Haynes MD documented in this encounter Plan of Treatment Upcoming Encounters Date Type Department Care Team (Late st Contact Info) Description 03/23/2024 11:[address] [facility] Rheumatology [address] [place] [address] Venecia Vega MD [address] [facility] [address] [place] [address] documented as of this encounter Visit Diagnoses Not on filedocumented in this encounter Care Teams Superintendent Pier Relationship Specialty Start Date End Date Rebeca Miller APRN [address] [place] [address] PCP - General Family Medicine - Primary Care 11/21/21 03/07/24 documented as of this encounter
--- OUTSIDE RECORDS SUMMARY | 2024-03-14 17:58 | XMS_ITS | Encounter Summary ---
Author Organization [facility] Address [address] [place] [address] Care Team Providers Care Pump And Blower Operator Name Role Phone Phoebe Iyer ABHAY Primary Care Provider [phone] Encounter Details Date Type Department Care Team (Late st Contact Info) Description 09/18/2021 Orders Only [facility] Rhe[facility]ology [address] [place], [place] [id number] Cande Young RN Elevated liver enzymes (Primary Dx); Seronegative rheumatoid arthritis (HCC-CMS) (HCC) Social History Tobacco Use Types [...] as of this encounter Progress Notes * Cande Young, RN - 09/18/2021 1626 EDT Standing orders for LFTs, creatinine, and CBC placed per Dr. Vega instruction. To be drawn in a month and then every 3 months thereafter. Orders faxed to [facility] per patient preference. documented in this encounter Plan of Treatment Upcoming Encounters Date Type Department Care Team (Late st Contact Info) Description 03/23/2024 11:[address] [facility] Rheumatology [address] [place] [address] Venecia Vega MD 130 [facility] [address] [place] [phone] documented as of this encounter Visit Diagnoses Diagnosis Elevated liver enzymes- Primary Other nonspecific abnormal serum enzyme levels Seronegative rheumatoid arthritis (HCC-CMS) Rheumatoid arthritis documented in this encounter Care Teams Pump And Blower Operator Relationship Specialty Start Date End Date Phoebe Iyer FNP PCP - General 07/09/20 11/20/21 documented as of this encounter
--- OUTSIDE RECORDS SUMMARY | 2024-03-14 17:58 | XMS_ITS | Encounter Summary ---
Author Organization [facility] Address [address] [place] [address] Care Team Providers Care Facility Maintenance Technician Name Role Phone Phoebe Iyer ABHAY Primary Care Provider [phone] Reason for Visit * Reason Onset Date Comments Other 01/02/2021 Numbness in arms / hands Encounter Details Date Type Department Care Team (Late st Contact Info) Description 01/02/2021 Telephone [facility] [place] [address] [place] [address] Venecia Vega MD [address] [facility] [address] [place] [address] Other (Numbness in arms/ hands ) Social History Tobacco Use Types Packs/Day Years [...] Telephone Encounter - Cande Young RN - 01/02/2021 1443 EDT Patient advised per Dr. Paulino. She will plan to call the [facility] and get her remain standing labs drawn. She will also plan to pickling solution maker a couple of braces to wear at night to see if thatrelieves her symptoms. Advised we would plan to be in touch with her once we received the lab work and Dr. Vega was back in the office. Patient was agreeable with plan and verbalized understanding. * Telephone Encounter - Cande Young RN - 01/02/2021 1425 EDT LVM requesting callback on direct line. * Telephone Encounter - Selina Paulino MD - 01/02/2021 1416 EDT Patient with seroneg spondyloarthropathy. Last note of Dr Vega reviewed. Recent CBC with increase in WBC, rest wnl -- looks like patient has mildly chronic increase in WBC. Sounds like sxs of carpaltunnel. Probably from the overuse last month. Recommend she try carpal tunnel splinting/braces, at night. Can buy at local pharmacy. If not improving, then likely nerve conduction testing. Thanks. * Telephone Encounter - Cande Young RN - 01/02/2021 1235 EDT Spoke with patient and she states this has been happening for a few weeks now. Numbness is in her bilateral lower arms from her elbows down. She notes that about a month ago she was working on painting her barn and she is wondering if this could have aggravated her symptoms, or if her symptoms could be related to the heat. She says the more I do the more numb they feel, and then my hands get achy. She reports no discomfort in her knees and ankles, which is typically where she gets increased inflammation. She had her standing labs drawn yesterday but we have no yet receive those results. Attempted to call [facility] but the recording states that their office is closed. Called [facility] and they stated that the only lab drawn was a CBC unfortunately. * Telephone Encounter - Chacha Courtney MA - 01/02/2021 1206 EDT Patient called regarding numbness in her arms, down to her hands. She is also experiencing pain in her fingers when gripping. She did blood work at [facility] yesterday hoping that will give some answers. Please advise. documented in this encounter Plan of Treatment Upcoming Encounters Date Type Department Care Team (Late st Contact Info) Description 03/23/2024 11:15 EDT Telemedicine [facility] [address] [place] [address] Venecia Vega MD 130 [facility] [address] [place] [phone] documented as of this encounter Visit Diagnoses Not on filedocumented in this encounter Care Teams Facility Maintenance Technician Relationship Specialty Start Date End Date Rozendaal, Phoebe, GAS LEAK INSPECTOR HELPER PCP - General 07/09/20 11/20/21 documented as of this encounter
--- OUTSIDE RECORDS SUMMARY | 2024-03-14 17:58 | XMS_ITS | Encounter Summary ---
Author Organization [facility] Address [address] [place] [address] Care Team Providers Care Position Classification Manager Name Role Phone KalinaPhoebe velasquez ABHAY Primary Care Provider [phone] Rebeca Miller APRN Primary Care Provider [phone] Corine Coulter Primary Care Provider [phone] Encounter Details Date Type Department Care Team (Late st Contact Info) Description 08/11/2021 Specialty Pharmacy [facility] [address] [place], [place] [id number] Cortney Hopper RPH Social History Tobacco Use Types Packs/Day Years [...] 11:15 EDT Telemedicine [facility] Rheumatology [address] [place] [address] Venecia Vega MD [address] [place] [address]- [address] [place] [address] documented as of this encounter Visit Diagnoses Not on filedocumented in this encounter Care Teams Position Classification Manager Relationship Specialty Start Date End Date Phoebe Iyer FNP PCP - General 07/09/20 11/20/21 Rebeca Miller APRN [address] [place] [address] PCP - General Family Medicine - Primary Care 11/21/21 03/07/24 Corine Coulter [address] [place] [address] PCP - General Family Medicine - Primary Care 03/08/24 documented as of this encounter
--- OUTSIDE RECORDS SUMMARY | 2024-03-14 17:58 | XMS_ITS | Encounter Summary ---
Author Organization [facility] Address [address] [place] [address] Care Team Providers Care Associate Professor Of Forestry Name Role Phone Phoebe Iyer ABHAY Primary Care Provider Reason for Referral * OPHTHALMIC AIDE (Routine) - Closed Specialty Diagnoses / Procedures Referred By [facility] t Referred To Contact Diagnoses LLQ abdominal pain Procedures US PELVIS TRANSVAGINAL Mila Morrell MD [address] [place] [address], [address] [place] [address] Referral ID Status Reason Start Date Expiration Date Visits Re quested Visits Authorized [id number] Closed 02/06/2021 1 1 Reason for Visit * Reason Comments Gynecologic Exam pt having lower pelv ic pain. saw pcp and will have pt see physical therapist assistant and aslo wanted cloth designer to evaluate. periods irregular. Encounter Details Date Type Department Care Team (Latest Contact Info) Description 02/06/2021 12:40 EDT Office Visit [facility] OBGYN [address] [place] [address] Mila Morrell MD [address] [place], [place] [address], [address] [place] [address] Women's annual routine gynecological examination (Primary Dx); Encounter for breast cancer screening using non-mammogram modality; LLQ abdominal pain Social History Tobacco Use Types [...] Sign Reading Time Taken Comments Blood Pressure 130/90 02/06/2021 1254 EDT Pulse - - Temperature - - Respiratory Rate 16 02/06/2021 1254 EDT Oxygen Saturation - - Inhaled Oxygen Concentration - - Weight 121.1 kg (267 lb) 02/06/2021 1254 EDT Height 170.2 cm (5' 7) 02/06/2021 1254 EDT Body Mass Index 41.82 02/06/2021 1254 EDT [...] as of this encounter Progress Notes * Mila Morrell MD - 02/06/2021 1240 EDT [facility] Patient Name: Arabella Ojeda DOS: 02/06/2021 HPI: Arabella Ojeda is a 35 y.o. who presents for cloth designer exam. Declines STD check. Reports irregularmenses, but states menses are every 3-5 weeks. No BTB between menses. Has noted left sided lower abdominal discomfort for the past 6-8 weeks. It is present most of the time. Not related to menses. Sometimes IC is uncomfortable with pressure on the left side with man-on-top position. Has noted some nausea in the mornings. Has GI appointment scheduled in a couple weeks. ROS: All pertinent systems negative except as noted in HPI. OB History Para Term AB Living 6 2 4 SAB TAB Ectopic Multiple Live Births 2 4 # Outcome Date GA Lbr Stephan/2nd Weight Sex Delivery Anes PTL Lv 6 05/14/16 M Vag-Spont CHRISTOPHER 5 12/27/12 M Vag-Spont CHRISTOPHER 4 06/10/09 M Vag-Spont CHRISTOPHER 3 06/11/06 M Vag-Spont CHRISTOPHER 2 SAB 2004 1 SAB 2004 Menses: Patient's last menstrual period was 02/03/2021. Cervical cancer screenin10/2018 wnl, HPV neg Last mammogram: n/a Contraception: BTL Current Outpatient Medications Medication ??? acetaminophen (TYLENOL) 500 mg tablet ??? fluticasone propionate (FLONASE) 50 mcg/actuation nasal spray ??? hydrOXYchloroQUINE (PLAQUENIL) 200 mg tablet ??? ibuprofen (MOTRIN) 200 mg tablet ??? naproxen (NAPROSYN) 500 mg tablet ??? omeprazole (PRILOSEC) 20 mg capsule ??? tofacitinib (XELJANZ) 5 mg tablet No current facility-administered medications for this visit. No Known Allergies Past Medical History: Diagnosis Date ??? Lyme disease 07/07/2019 Treatment with naturopathy Antibiotics. Supplements and tinctures. Therapy from 02/19 to 06/22 Dr Wyatt at [facility]. ??? Obesity (BMI 30-39.9) ??? Otitis media, [...] Paternal Grandfather ??? Inflammatory Bowel Disease Sister Objective: BP 130/90 Resp 16 Ht 170.2 cm (67) Wt (!) 121.1 kg (267 lb) LMP 02/03/2021 Comment: tubal BMI 41.82 kg/m?? General Appearance: healthy, alert, cooperative, oriented, and in no acute distress HEENT: Normocephalic. No thyromegaly. Neck: supple, no lymphadenopathy. Breast: No palpable masses. No skin changes. No nipple discharge or bleeding. No nipple inversion or skin retraction. No axillary nodes or masses. Lungs: Lungs clear to auscultation. Unlabored. Heart: regular rate and rhythm, no murmurs. Abdomen: no masses palpable, bowel sounds normal, soft, non-tender, non- distended, obese Pelvic: Exam rubber goods inspector tester declined by patient. Female Genitalia: external genitalia with normal anatomy, normal urethral meatus without prolapse, vaginal mucosa healthy, pink and without lesions, scant menstrual discharge, cervix closed and normal in appearance and to palpation, uterus of normal size, shape and consistency, no adnexal masses ortenderness bilaterally. Benign pelvic exam. No rebound or guarding. Limited by body habitus. Rectal: no external lesions. Extremities: Extremities normal. No clubbing, cyanosis, deformities, or edema. Back: no CVA tenderness. Skin: Warm and dry. No rashes or lesions. Assessment/Plan: Arabella Ojeda is a 35 y.o. who presents for routine cloth designer exam. 1. Women's annual routine gynecological examination Reviewed 10/2018 pap wnl, HPV negative. No previously abnormal pap smears. Discussed recommendationsfor pap/HPV screening every 3-5 years. She is agreeable. Discussed diet, exercise and adequate calcium (1200 mg daily) and vitamin D (800 units daily) requirements. 2. Encounter for breast cancer screening using non-mammogram modality 3. LLQ abdominal pain Benign abdominal and pelvic exams today. Offered pelvic ultrasound to check ovaries and she is agreeable. Plan to call her with results when available. - US PELVIS TRANSVAGINAL; Future Mila Morrell MD documented in this encounter Plan of Treatment Upcoming Encounters Date Type Department Care Team (Late st Contact Info) Description 03/23/2024 11:15 EDT Telemedicine [facility] Rheumatology [address] [place] [address] Venecia Vega MD 130 [facility] [address] [place] [phone] Scheduled Orders Name Type Priority Associated Diagnoses Orde r Schedule US PELVIS TRANSVAGINAL Imaging Routine LLQ abdominal pain Expected: 02/13/2021 (Approximate), Expires: 04/08/2021 documented as of this encounter Visit Diagnoses Diagnosis Women's annual routine gynecological examination- Primary Encounter for breast cancer screening using non-mammogram modality LLQ abdominal pain Abdominal pain, left lower quadrant documented in this encounter Discontinued Medications Medication Sig Discontinue Reason Start Date End Da te loratadine (CLARITIN) 10 mg tablet Take 10 mg by mouth if needed. Patient Stopped Taking 02/06/2021 ondansetron (ZOFRAN) 8 mg tablet Take 8 mg by mouth every 8 hours as needed. Patient Stopped Taking 09/02/2020 02/06/2021 documented as of this encounter Care Teams Associate Professor Of Forestry Relationship Specialty Start Date End Date Phoebe Iyer FNP PCP - General 07/09/20 11/20/21 documented as of this encounter
--- OUTSIDE RECORDS SUMMARY | 2024-03-14 17:58 | XMS_ITS | Encounter Summary ---
Author Organization [facility] Address [address] [place] [address] Care Team Providers Care Scanner Operator Name Role Phone Phoebe Iyer ABHAY Primary Care Provider Encounter Details Date Type Department Care Team (Late st Contact Info) Description 07/15/2021 Specialty Pharmacy [facility] [address] [place] [address] Cortney Hopper [facility] Social History Tobacco Use Types [...] Info) Description 03/23/2024 11:15 EDT Telemedicine [facility] Rheumatology [address] [place] [address] Venecia Vega MD [address] [facility] [address] [place] [address] documented as of this encounter Visit Diagnoses Not on filedocumented in this encounter Care Teams Scanner Operator Relationship Specialty Start Date End Date Phoebe Iyer FNP PCP - General 07/09/20 11/20/21 documented as of this encounter
--- OUTSIDE RECORDS SUMMARY | 2024-03-14 17:58 | XMS_ITS | Encounter Summary ---
Author Organization [facility] Address [address] [place] [address] Care Team Providers Care Rubber Stamp Die Inspector Name Role Phone Rebeca Miller WILLY Primary Care Provider [phone] Encounter Details Date Type Department Care Team (Late st Contact Info) Description 12/04/2021 Abstract [facility] Rheumatology [address] [place], [place] [phone] Katt Stringer RN Social History Tobacco Use [...] EDT Telemedicine [facility] Rheumatology [address] [place], [place] [phone] Venecia Vega MD [address] [facility] [address] [place] [address] documented as of this encounter Procedures Procedure Name Priority Date/Time Associated Diagnosis Comments TISSUE TRANSGLUTAMINASE ANTIBODY, IGA Routine 12/02/2021 COMPLETE BLOOD COUNT AND DIFFERENTIAL Routine 12/02/2021 C REACTIVE PROTEIN Routine 12/02/2021 COMPREHENSIVE METABOLIC PANEL (CMP) Routine 12/02/2021 documented in this encounter Results * TISSUE TRANSGLUTAMINASE AB (12/02/2021) Tissue Transglutaminase Ab, IGA, External <1.2 4.0 [facility] tTG Ab, IgA, S, External 326 78 - 499 [facility] Blood VENOUS BLOOD / Unknown 12/02/2021 Venecia Vega MD IMMUNOLOGY AND S EROLOGY ORDERABLES [facility] * (ABNORMAL) COMPLETE BLOOD COUNT AND DIFFERENTIAL (12/02/2021) WBC, External 9.13 4.4 - 10.8 [facility] RBC, External 4.57 3.93 - 5.22 [facility] Hemoglobin, External 12.8 11.2 - 15.7 [facility] HCT, External 40.2 36.0 - 46.0 [facility] MCV, External 88 80 - 95 [facility] MCH, External 28.0 27.0 - 33.0 [facility] MCHC, External 31.8(A) 32.0 - 36.0 [facility] PLT, External 537(A) 130 - 400 [facility] RDW-CV, External 14.6 11.7 - 14.6 [facility] Neutrophils, External 48.5% [facility] Lymphocytes, External 38.0% [facility] Monocytes, External 7.0% [facility] Eosinophils, External 5.7% [facility] Basophils, External 0.5% [facility] ABS Neutrophils, External 4.42 1.2 - 6.7 [facility] ABS Lymphs, External 3.47(A) 1.2 - 3.4 [facility] ABS Monocytes, External 0.64 0.1 - 0.8 [facility] ABS Eosinophils, External 0.52 0.0 - 0.7 [facility] ABS Basophils, External 0.05 0.0 - 0.2 [facility] Blood VENOUS BLOOD / Unknown 12/02/2021 Venecia Vega MD PACKAGES & DNA Reshma LU ORDERABLES [facility] * (ABNORMAL) COMPREHENSIVE METABOLIC PANEL (CMP) (12/02/2021) GFR, Calculated, External >=60 60 [facility] Glucose, Serum, External 99 74 - 106 [facility] Albumin, External 3.8 3.4 - 5.0 [facility] Total Alkaline Phosphatase, External 83 46 - 116 [facility] ALT, External 70(A) 14 - 59 [facility] AST, External 44(A) 15 - 37 [facility] BUN, External 10 7 - 18 [facility] Calculated Calcium, External [facility] Calcium, External 8.6 8.5 - 10.1 [facility] Chloride, External 103 98 - 107 [facility] CO2, External 25.0 21.0 - 32.0 [facility] Creatinine, External 1.0 0.55 - 1.02 [facility] Fasting?, External [facility] Potassium, External 4.1 3.5 - 5.1 [facility] Sodium, External 139 136 - 145 [facility] Total Protein, External 7.3 6.4 - 8.2 [facility] Bilirubin, Total, External 0.3 0.2 - 1.0 [facility] Blood VENOUS BLOOD / Unknown 12/02/2021 Venecia Vega MD CHEMISTRY & BLOO D GAS ORDERABLES Performing Organization Address City[facility] Co de Phone Number [facility] * (ABNORMAL) C REACTIVE PROTEIN (12/02/2021) C-Reactive Protein, External 0.54(A) 0.0 - 0.3 mg/dL [facility] Blood VENOUS BLOOD / Unknown 12/02/2021 Venecia Vega MD CHEMISTRY & BLOO D GAS ORDERABLES Performing Organization Address [facility]/ZIP Co de Phone Number [facility] documented in this encounter Visit Diagnoses Not on filedocumented in this encounter Care Teams Rubber Stamp Die Inspector Relationship Specialty Start Date End Date Rebeca Miller APRN [address] [place] [address] PCP - General Family Medicine - Primary Care 11/21/21 03/07/24 documented as of this encounter
--- OUTSIDE RECORDS SUMMARY | 2024-03-14 17:58 | XMS_ITS | Encounter Summary ---
Author Organization [facility] Address [address] [place] [address] Care Team Providers Care Assistant Credit Manager Name Role Phone Rebeca Miller APRN Primary Care Provider Corine Coulter Primary Care Provider [phone] Encounter Details Date Type Department Care Team (Late st Contact Info) Description 12/02/2021 Lab Requisition [facility] Pathology & Laboratory Medicine - [facility] [address] [place] [address] Outr Resulting Lab, Provider Social History Tobacco [...] Contact Info) Description 03/23/2024 11:15 EDT Telemedicine [facility] Rheumatology [address] [place] [address] Venecia Vega MD [address] [facility] [address] [place] [address] documented as of this encounter Procedures Procedure Name Priority Date/Time Associated Diagnosis Comments IGA Routine 12/02/2021 9:10 EDT documented in this encounter Results * IGA (12/02/2021 9:10 EDT) IgA 326 85 - 499 mg/dL 12/03/2021 10:03 EDT [facility] Blood VENOUS BLOOD / Unknown 12/02/2021 9:10 EDT 12/02/2021 22:07 EDT Provider Outr Resulting Lab CHEMISTRY & BLOOD GAS ORDERABLES [facility] [address] [place] [address] documented in this encounter Visit Diagnoses Not on filedocumented in this encounter Care Teams Assistant Credit Manager Relationship Specialty Start Date End Date Rebeca Miller APRN [address] [place] [address] PCP - General Family Medicine - Primary Care 5/20/22 9/3/24 Corine Coulter 4 [facility] [place] [phone] PCP - General Family Medicine - Primary Care 03/08/24 documented as of this encounter
--- OUTSIDE RECORDS SUMMARY | 2024-03-14 17:58 | XMS_ITS | Encounter Summary ---
Author Organization [facility] Address [address] [place] [address] Care Team Providers Care Rangeland Management Specialist Name Role Phone Paul Rebeca Vazquez APRN Primary Care Provider [phone] Reason for Visit * Reason Onset Date Comments Pre-visit Orders 11/21/2021 Encounter Details Date Type Department Care Team (Late st Contact Info) Description 11/21/2021 Telephone [facility] Rheumatology [address] [place], [place] [phone] Venecia Vega MD 130 [facility] [address] [place] [address] Pre-visit Orders Social History Tobacco Use Types [...] encounter Miscellaneous Notes * Telephone Encounter - Allison Florentino MA - 11/24/2021 1034 EDT Orders faxed to [facility] per patient request. Pt aware to get labs done prior to upcoming appt * Telephone Encounter - Cande Young RN - 11/21/2021 [address] Vega and she would like CMP, CBC, and CRP done as standing labs every 3 months and would like these done prior to her upcoming visit. Please resend orders to patient's preferred lab draw location. * Telephone Encounter - Cande Young RN - 11/21/2021 1411 EDT Patient had CBC w/diff, hepatic panel, creatinine, and CRP done on 10/14. Would you like to have additional labs done prior to her upcoming visit on 12/12? * Telephone Encounter - Allison Florentino MA - 11/21/2021 1404 EDT Patient had several lab orders done recently on 10/14/21, should patient go and get a CMP done as itdoes not appear to have been drawn. Please advise. Thanks. documented in this encounter Plan of Treatment Upcoming Encounters Date Type Department Care Team (Late st Contact Info) Description 03/23/2024 11:15 EDT Telemedicine [facility] Rheumatology [address] [place], [place] [address] Venecia Vega MD 130 [facility] [address] [place] [address] documented as of this encounter Visit Diagnoses Diagnosis Seronegative rheumatoid arthritis ([facility])- Primary Rheumatoid arthritis High risk medication use Encounter for long-term (current) use of other medications documented in this encounter Care Teams Rangeland Management Specialist Relationship Specialty Start Date End Date Rebeca Miller APRN [address] [place] [address] PCP - General Family Medicine - Primary Care 11/21/21 03/07/24 documented as of this encounter
--- OUTSIDE RECORDS SUMMARY | 2024-03-14 17:59 | XMS_ITS | Encounter Summary ---
Author Organization [facility] Address [address] [place] [address] Care Team Providers Care Testing Tech Name Role Phone Serafin Saucedo MD Primary Care Provider [phone] Encounter Details Date Type Department Care Team (Late st Contact Info) Description 02/06/2020 Orders Only [facility] [place] [address] [place], [place] [phone] [facility] [address] [place], [place] [address] Social History Tobacco Use Types Packs/Day Years Used Date Smoking Tobacco: Never Smokeless Tobacco: Never Alcohol Use Standard Drinks/Week Comments Not Currently 0 (1 standard drink = 0.6 oz pur e alcohol) Interpersonal Safety Answer Date Record ed Physically [...] Contact Info) Description 03/23/2024 11:15 EDT Telemedicine [facility] Rheumatology [address] [place] [address] Venecia Vega MD [address] [facility] [address] [place] [address] documented as of this encounter Visit Diagnoses Not on filedocumented in this encounter Care Teams Testing Tech Relationship Specialty Start Date End Date Serafin Saucedo MD [address] [place] [phone] PCP - General 02/13/19 04/25/20 documented as of this encounter
--- OUTSIDE RECORDS SUMMARY | 2024-03-14 17:59 | XMS_ITS | Encounter Summary ---
Author Organization [facility] Address [address] [place] [address] Care Team Providers Care Division Sergeant Name Role Phone Phoebe Iyer ABHAY Primary Care Provider [phone] Reason for Visit * Reason Onset Date Comments Medications Refill 11/29/2020 Encounter Details Date Type Department Care Team (Late st Contact Info) Description 11/29/2020 Telephone [facility] [place] Rheumatology [address] [place] [address] Cecy Tate RN Medications Refill Social History Tobacco Use Types [...] End Da te hydrOXYchloroQUINE (PLAQUENIL) 200 mg tabletIndications:Spondylo arthropathy Take 1 Tab by mouth daily. 90 Tab 3 11/29/2020 10/13/2021 hydrOXYchloroQUINE (PLAQUENIL) 200 mg tabletIndications:Spondylo arthropathy Take 1 Tab by mouth daily. 90 Tab 3 11/29/2020 11/29/2020 documented in this encounter Miscellaneous Notes * Addendum Note - Cecy Taet RN - 11/29/2020 1353 EDTAddended by: CECY TATE on: 11/29/2020 13:53 Modules accepted: Orders * Telephone Encounter - Cecy Tate RN - 11/29/[address] [facility] * Telephone Encounter - Casandra Murray - 11/29/2020 1347 EDT Pt left a message and said her script was sent to [facility] in [place] but should have gone to [facility] in [place]. 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 Reorder 11/11/2020 11/29/2020 hydrOXYchloroQUINE (PLAQUENIL) 200 mg tabletIndications:Spondyl oarthropathy Take 1 Tab by mouth daily. Reorder 11/29/2020 11/29/2020 documented as of this encounter Care Teams Division Sergeant Relationship Specialty Start Date End Date Phoebe Iyer FNP PCP - General 07/09/20 11/20/21 documented as of this encounter
--- OUTSIDE RECORDS SUMMARY | 2024-03-14 17:59 | XMS_ITS | Encounter Summary ---
Author Organization [facility] Address [address] [place] [address] Care Team Providers Care Briefcase Sewer Name Role Phone Serafin Saucedo MD Primary Care Provider [phone] Reason for Visit * Reason Onset Date Comments Medications Refill 02/20/2020 omeprazole re fill Encounter Details Date Type Department Care Team ([facility] st Contact Info) Description 02/20/2020 Refill [facility] Primary [facility] - [place] [address] [place], [place] [address] Serafin Saucedo MD [address] [place] [address] Medications Refill (omeprazole refill ) Social History Tobacco Use Types Packs/Day [...] 11:12 EST Sexual Orientation Not on file COVID-19 Exposure Response Date Recorded In the last month, have you been in contact with someone who was confirmed or suspected to have Coronavirus / COVID-19? No / Unsure 02/20/2020 13:57 EDT documented as of this encounter Functional Status [...] Dispensed Refills Start Date End Da te omeprazole (PRILOSEC) 20 mg capsule Take 1 Cap by mouth daily. 90 Cap 3 02/21/2020 05/16/2021 documented in this encounter Miscellaneous Notes * Telephone Encounter - Oliva Wong RN - 02/21/2020 1006 EDT ANGEL 01/04/2020 Refill approved via e-scribe per office protocol * Telephone Encounter - Oliva Wong RN - 02/21/2020 1005 EDTFrom: Arabella Ojeda To: Office of Serafin Saucedo III, MD Sent: 02/20/2020 20:12 EDT Subject: Medication Renewal Request Refills have been requested for the following medications: omeprazole (PRILOSEC) 20 mg capsule [Serafin Saucedo III, MD] Preferred pharmacy: [id number] - [place], [place] - [address] [facility] Medication renewals requested in this message route d separately: hydroxychloroquine (PLAQUENIL) 200 mg tablet [Venecia Vega MD] documented in this encounter Plan of Treatment Upcoming Encounters Date Type Department Care Team (Late st Contact Info) Description 03/23/2024 11:15 EDT Telemedicine [facility] Rheumatology [address] [place] [address] Venecia Vega MD [address] [facility] [address] [place] [phone] documented as of this encounter Visit Diagnoses Not on filedocumented in this encounter Discontinued Medications Medication Sig Discontinue Reason Start Date End Da te omeprazole (PRILOSEC) 20 mg capsule TAKE ONE CAPSULE BY MOUTH DAILY NEEDED Reorder 11/28/2019 02/20/2020 documented as of this encounter Care Teams Briefcase Sewer Relationship Specialty Start Date End Date Serafin Saucedo MD [address] [place] [phone] PCP - General 02/13/19 04/25/20 documented as of this encounter
--- OUTSIDE RECORDS SUMMARY | 2024-03-14 17:59 | XMS_ITS | Encounter Summary ---
Author Organization [facility] Address [address] [place] [address] Care Team Providers Care Metal Storage Worker Name Role Phone Serafin Saucedo MD Primary Care Provider [phone] Encounter Details Date Type Department Care Team (Latest Contact Info) Description 01/03/2020 Travel Social History Tobacco Use Types Packs/Day Years Used Date Smoking Tobacco: Never Smokeless Tobacco: Never Alcohol Use Standard Drinks/Week Comments Not Currently 0 (1 standard drink = 0.6 oz pur e alcohol) Sex and Gender Information Value Date Recorded Sex Assigned at Not on file Gender Identity Female 07/04/2019 11:12 EST Sexual Orientation Not on file COVID-19 Exposure Response Date Recorded In the last month, have you been in contact with someone who was confirmed or suspected to have Coronavirus / COVID-19? No / Unsure 01/03/2020 8:29 EDT documented as of this encounter Functional [...] 11:15 EDT Telemedicine [facility] Rheumatology [address] [place] [address] Venecia Vega MD [address] [facility] [address] [place] [address] documented as of this encounter Visit Diagnoses Not on filedocumented in this encounter Care Teams Metal Storage Worker Relationship Specialty Start Date End Date Serafin Saucedo MD [address] [place] [address] PCP - General 02/13/19 04/25/20 documented as of this encounter
--- OUTSIDE RECORDS SUMMARY | 2024-03-14 17:59 | XMS_ITS | Encounter Summary ---
Author Organization [facility] Address [address] [place] [address] Care Team Providers Care Cotton Stripper Name Role Phone Serafin Saucedo MD Primary Care Provider [phone] Encounter Details Date Type Department Care Team (Latest Contact Info) Description 10/16/2019 Orders Only [facility] - [facility] Rheumatology [address] [place] [address] Germaine Irby RN Seronegative spondyloarthropathy ([facility]) (Primary Dx) Social History Tobacco Use Types [...] Dispensed Refills Start Date End Da te sulfaSALAzine (AZULFIDINE) 500 mg EC tabletIndications:Seronegative spondyloarthropathy Take 3 tabs in the AM and 2 tabs in the PM 450 Tab 1 10/16/2019 12/29/2019 documented in this encounter Progress Notes * Germaine Irby RN - 10/16/2019 7671 EDT Received insuarance fax requesting 90 day supply of Sulfasalazine.refill sent for 90 days. documented in this encounter Plan of Treatment Upcoming Encounters Date Type Department Care Team (Late st Contact Info) Description 03/23/2024 11:15 EDT Telemedicine [facility] Rheumatology [address] [place] [address] Venecia Vega MD [address] [facility] [address] [place] [address] documented as of this encounter Visit Diagnoses Diagnosis Seronegative spondyloarthropathy- Primary Spondylosis of unspecified site without mention of myelopathy documented in this encounter Discontinued Medications Medication Sig Discontinue Reason Start Date End Da te sulfaSALAzine (AZULFIDINE) 500 mg EC tabletIndications:Seronegative spondyloarthropathy Take 3 tabs in the AM and 2 tabs in the PM Reorder 10/13/2019 10/16/2019 documented as of this encounter Care Teams Cotton Stripper Relationship Specialty Start Date End Date Serafin Saucedo MD [address] [place] [phone] PCP - General 02/13/19 04/25/20 documented as of this encounter
--- OUTSIDE RECORDS SUMMARY | 2024-03-14 17:59 | XMS_ITS | Encounter Summary ---
Author Organization [facility] Address [address] [place] [address] Care Team Providers Care Roof Fitter Name Role Phone Serafin Saucedo MD Primary Care Provider [phone] Reason for Visit * Reason Onset Date Comments Other 04/22/2020 bilateral knee a nd ankle inflammation Encounter Details Date Type Department Care Team (Late st Contact Info) Description 04/22/2020 Telephone [facility] [place] Rhe[place]ology [address] [place] [address] Venecia Vega MD [address] [facility] [address] [place] [address] Other (bilateral knee and ankle inflammation) Social History Tobacco Use Types Packs/Day Years [...] have Coronavirus / COVID-19? No / Unsure 04/10/2020 8:12 EDT documented as of this encounter Functional [...] Da te predniSONE (DELTASONE) 10 mg tablet One tab daily for 7 days 7 Tab 04/23/2020 07/10/2020 documented in this encounter Miscellaneous Notes * Telephone Encounter - Katt Stringer RN - 04/23/2020 1053 EDT Instructions to resume xeljanz given with appreciation expressed. She would like to have prednisoneso Rx sent to [facility] at her request. * Telephone Encounter - Venecia Vega MD - 04/23/2020 0957 EDT Ok to resume Xeljanz If knee pain severe could rx prednisone 10 mg daily x 7 days while xeljanz takes effect [facility] * Telephone Encounter - Katt Stringer RN - 04/22/2020 1442 EDT Arabella called to ask if you think she can go back on the xeljanz. She saw her doctor last week and she ordered a chest x-ray which came back clear. Arabella has not had a fever and the cough is resolved but she still gets short of breath with exertion. Her knees are swollen like they were before she started xeljanz. * Telephone Encounter - Allison Florentino - 04/22/2020 1016 EDT Patient called to say she would like a nurse to call her back to discuss the inflammation and fluidretention she is having in her knees and ankles due to being off the Xeljanz. Patient states she isoff the Xeljanz due to having pnemonia but since she is not quite well enough to be back on the Xeljanz she would like Dr. Vega's recommendation on what she would like her to do to help ease the inflammation in her joints. Please advise. [phone]. Thanks. documented in this encounter Plan of Treatment Upcoming Encounters Date Type Department Care Team (Late st Contact Info) Description 03/23/2024 11:15 EDT Telemedicine [facility] [place] Rheumatology [address] [place] [address] Venecia Vega MD [address] [facility] [address] [place] [phone] documented as of this encounter Visit Diagnoses Not on filedocumented in this encounter Care Teams Roof Fitter Relationship Specialty Start Date End Date Serafin Saucedo MD [address] [place] [phone] PCP - General 02/13/19 04/25/20 documented as of this encounter
--- OUTSIDE RECORDS SUMMARY | 2024-03-14 17:59 | XMS_ITS | Encounter Summary ---
Author Organization [facility] Address [address] [place] [address] Care Team Providers Care Brand Strategist Name Role Phone Serafin Saucedo MD Primary Care Provider [phone] Reason for Visit * Reason Comments Ear Fullness 2-3 weeks of ear genoveva n, visit to PCP and Rx'd Amox, improved slightly and now worsening. PCP Rx'd another Amoxicillin and now pain worsening. Encounter Details Date Type Department Care Team (Late st Contact Info) Description 01/21/2020 12:30 EDT [facility] Acute Respiratory Clinic [address] [place], [place] [phone] Bobby Sheth, FIELD ASSESSOR [address] [facility] [address] [place], [place] [id number] Acute ear pain, bilateral (Primary Dx) Social History Tobacco Use Types [...] 8:29 EDT documented as of this encounter Last Filed Vital Signs Vital Sign Reading Time Taken Comments Blood Pressure - - Pulse 82 01/21/2020 1308 EDT Temperature 37.2 ??C (99 ??F) 01/21/2020 1308 EDT Respiratory Rate - - Oxygen Saturation 96% 01/21/2020 1308 EDT Inhaled Oxygen Concentration - - Weight - [...] this encounter Patient Instructions * Patient Instructions* Bobby Sheth, SPRING INSPECTOR - 01/21/2020 12:30 EDT Images from the original note were not included. [facility] Patient Instructions Earache: Care Instructions Your Care Instructions Even though infection is a common cause of ear pain, not all ear pain means an infection. If you have ear pain and don't have an infection, it could be because of a jaw problem, such as temporomandibular joint (TMJ) pain. Or it could be because of a neck problem. When ear discomfort or pain is mild or comes and goes without other symptoms, home treatment may raj you need. Follow-up care is a rodriguez part of your treatment and safety. Be sure to make and go to all appointments, and call your doctor if you are having problems. It's also a good idea to know your test resultsand keep a list of the medicines you take. How can you care for yourself at home? ?? Apply heat on the ear to ease pain. To apply heat, put a warm water bottle, a heating pad set onlow, or a warm cloth on your ear. Do not go to sleep with a heating pad on your skin. ?? Take an vijr-wpy-pmbacvu pain medicine, such as acetaminophen (Tylenol), ibuprofen (Advil, Motrin), or naproxen (Aleve). Be safe with medicines. Read and follow all instructions on the label. ?? Do not take two or more pain medicines at the same time unless the doctor told you to. Many painmedicines have acetaminophen, which is Tylenol. Too much acetaminophen (Tylenol) can be harmful. ?? Never insert anything, such as a cotton swab or a kristen pin, into the ear. When should you call for help? Call your doctor now or seek immediate medical care if: ? You have new or worse symptoms of infection, such as: ? Increased pain, swelling, warmth, or redness. ? Red streaks leading from the area. ? Pus draining from the area. ? A fever. ??Watch closely for changes in your health, and be sure to contact your doctor if: ? You have new or worse discharge coming from the ear. ? You do not get better as expected. Where can you learn more? Go to [email or web address].[email or web address]/[email or web address] or log into your [employer] account at [email or web address] Enter C927 in the search box to learn more about Earache: Care Instructions. Current as of: January 29, 2019Content Version: 12.4 ?? 5829-5926 [employer]. Care instructions adapted under license by [facility]. If you have questions about a medical condition or this instruction, always ask your healthcare professional. [employer] disclaims any warranty or liability for your use of this information. documented in this encounter Ordered Prescriptions Prescription Sig Dispensed Refills Start Date End Da te methocarbamoL (ROBAXIN) 500 mg tabletIndications:Acute ear pain, bilateral Take 2 Tabs by mouth 3 times daily as needed for up to 7 days for Pain. 21 Tab 01/21/2020 01/28/2020 documented in this encounter Progress Notes * Heriberto Polanco RN - 01/21/2020 1230 EDT CC: Has the patient contacted their PCP regarding this chief complaint? Yes Covid Screening: Fever, chills, body aches: No Vomiting or diarrhea: No, New or unusual cough, SOB: No Decrease/change in sense of taste or smell: NO Sore throat or headache: Headache Have you been in close contact (less than 6 ft for more than 15 minutes) with suspected or confirmed person with Covid-19 in past 14 days: NO Travel outside of [place] in last 14 days? NO If yes, was it to a low risk location? Reference [place] Travel Map to see if the location falls within a low risk area (<400 casesper million): https://accd.[place].gov/covid-19/restart/vvfxl-gwluw-ccjhmw * Telly Gilbert RN - 01/21/2020 1230 EDT Reason patient is referred to [facility]: Headache CC: Bilateral ear pain HPI: 2-3 weeks of ear pain, visit to PCP and Rx'd Amox, improved slightly and now worsening. PCP Rx'd another Amoxicillin and now pain worsening. 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 01/21/20 12:48 TELLY GILBERT RN * Bobby Sheth APRN - 01/21/2020 1230 EDT [facility] Chief Complaint(s): Ear Fullness (2-3 weeks of ear pain, visit to PCP and Rx'd Amox, improved slightly and now worsening. PCP Rx'd another Amoxicillin and now pain worsening. ) HPI: Reason for referral to [facility]: headache Where patient was examined: [facility] tent Screened from: [facility] Arabella presents for c/o ear pain. She reports a recent history of bilateral ear pain; she was treated for left AOM in early January withamoxicillin and felt like she had 50% improvement in pain. When she stopped, pain wasn't gone, so she was restarted on Amoxicillin 4 days ago, but presents here today because her ear pain is worse. Affecting both ears now. She denies otorrhea or hearing changes. No sore throat or swallowing challenges. No fever symptoms. She reports that she has a mild headache. She denies jaw pain specifically. No pain with opening/closing. Denies increased stress, but admits that life has been busy. Endorses history of polyarthropathy -- mostly in her knees. Taking 2 immune modulators, which are really helping this. I have reviewed current problem list and current medications. ROS: Review of Systems Constitutional: Negative for chills and fever. Examination: Vitals: Pulse 82 Temp 37.2 ??C (99 ??F) (Oral) SpO2 96% Physical Exam Constitutional: Vital signs are normal. She appears well-nourished. She is cooperative. She does not appear ill. No distress. HENT: Right Ear: Hearing, external ear and ear canal normal. No drainage or swelling. No mastoid tenderness. Tympanic membrane is not injected, not scarred, not erythematous, not retracted and not bulging.A middle ear effusion is present. Left Ear: Hearing, external ear and ear canal normal. No drainage or swelling. No mastoid tenderness. Tympanic membrane is not injected, not scarred, not erythematous, not retracted and not bulging. A middle ear effusion is present. Nose: Nose normal. Mouth/Throat: Uvula is midline, oropharynx is clear and moist and mucous membranes are normal. No oral lesions. No trismus in the jaw. No uvula swelling. Tonsils are 1+ on the right. Tonsils are 1+ on the left. Eyes: Conjunctivae are normal. Neck: Normal range of motion. Neck supple. Pulmonary/Chest: Effort normal. Lymphadenopathy: She has no cervical adenopathy. Neurological: She is alert. No cranial nerve deficit. Skin: Skin is warm and dry. She is not diaphoretic. Psychiatric: She has a normal mood and affect. Her behavior is normal. Nursing note reviewed. Assessment & Plan: 1. Acute ear pain, bilateral Arabella presents for c/o ear pain, but there is not an obvious pathology today. I do not see e/o infection. She was advised to optionally discontinue the amoxicillin. Discussed d/x of serous otitis, TMJ disorder. Recommended supportive measures for both. She has previously seen Dr. Buenrosrto for right OM, and I encouraged her to seek re-evaluation if she is having new symptoms. Follow up with PCP for questions/concerns/persistent symptoms. S/e and interactions with methocarbamol reviewed. Her concerns and questions today were sought and answered and she agrees to this plan of care today. - methocarbamoL (ROBAXIN) 500 mg tablet; Take 2 Tabs by mouth 3 times daily as needed for up to 7 days for Pain. Dispense: 21 Tab; Refill: 0 documented in this encounter Plan of Treatment Upcoming Encounters Date Type Department Care Team (Late st Contact Info) Description 03/23/2024 11:15 EDT Telemedicine [facility] Rheumatology [address] [place] [phone] Venecia Vega MD [address] [facility] [place] [phone] documented as of this encounter Visit Diagnoses Diagnosis Acute ear pain, bilateral- Primary documented in this encounter Care Teams Brand Strategist Relationship Specialty Start Date End Date Serafin Saucedo MD [address] [place] [phone] PCP - General 02/13/19 04/25/20 documented as of this encounter
--- OUTSIDE RECORDS SUMMARY | 2024-03-14 17:59 | XMS_ITS | Encounter Summary ---
Author Organization [facility] Address [address] [place] [address] Care Team Providers Care Railroad Commissioner Name Role Phone Serafin Saucedo MD Primary Care Provider [phone] Encounter Details Date Type Department Care Team (Latest Contact Info) Description 04/10/2020 Travel Social History Tobacco Use Types Packs/Day [...] Contact Info) Description 03/23/2024 11:15 EDT Telemedicine [facility] Rheumatology [address] [place], [place] [phone] Venecia Vega MD [address] [facility] [address] [place] [phone] documented as of this encounter Visit Diagnoses Not on filedocumented in this encounter Care Teams Railroad Commissioner Relationship Specialty Start Date End Date Serafin Saucedo MD [address] [place] [phone] PCP - General 02/13/19 04/25/20 documented as of this encounter
--- OUTSIDE RECORDS SUMMARY | 2024-03-14 17:59 | XMS_ITS | Encounter Summary ---
Author Organization [facility] Address [address] [place] [address] Care Team Providers Care Magisterial District Judge Name Role Phone Serafin Saucedo MD Primary Care Provider [phone] Phoebe Iyer Primary Care Provider [phone] Rebeca Miller APRN Primary Care Provider [phone] Corine Coulter Primary Care Provider [phone] Reason for Visit * Reason Comments Other Encounter Details Date Type Department Care Team (Late st Contact Info) Description 02/20/[address] [facility] - [facility] [facility] Rheumatology [address] [place] [address] Venecia Vega MD [address] [facility] [address] [place] [phone] Other Social History Tobacco Use [...] Contact Info) Description 03/23/2024 11:15 EDT Telemedicine [facility] Rheumatology [address] [place], [place] [phone] Venecia Vega MD [address] [place] [address] [address] [place] [phone] documented as of this encounter Visit Diagnoses Diagnosis Spondyloarthropathy Spondylosis of unspecified site without mention of myelopathy documented in this encounter Care Teams Magisterial District Judge Relationship Specialty Start Date End Date Serafin Saucedo MD [address] [place] [phone] PCP - General 02/13/19 04/25/20 Phoebe Iyer FNP [address] [place] [phone] PCP - General 07/09/20 11/20/21 Rebeca Miller APRN [address] [place] [phone] PCP - General Family Medicine - Primary Care 11/21/21 03/07/24 Corine Coulter [address] [phone] PCP - General Family Medicine - Primary Care 03/08/24 documented as of this encounter
--- OUTSIDE RECORDS SUMMARY | 2024-03-14 17:59 | XMS_ITS | Encounter Summary ---
Author Organization [facility] Address [address] [place] [address] Care Team Providers Care Home Service Director Name Role Phone Serafin Saucedo MD Primary Care Provider [phone] Reason for Visit * Reason Comments Follow-up Encounter Details Date Type Department Care Team (Late st Contact Info) Description 03/19/2020 15:00 EDT Office Visit [facility] [address] [place], [place] [phone] Deya Lyman, THEATER SET PRODUCTION DESIGNER [address] [facility] [address] [place] [address] Sprain of right ankle, unspecified ligament, subsequent encounter (Primary Dx) Social History Tobacco Use Types [...] as of this encounter Progress Notes * Deya Lyman, TURNING AND BEADING MACHINE OPERATOR - 03/19/2020 1500 EDT PROBLEM: Right ankle sprain - DOI 02/02 SUBJECTIVE: Arabella Ojeda is a 34 y.o. female who is here today for follow up of her right ankle inversion injury which occurred almost 7 weeks ago. She was evaluated on 02/19 at which time she was to continue with her walking boot and was referred to PT for right ankle sprain. She has had 1 PT session so far. She has been able to progress her activity and is able to walk 1 hour in the morning and 1 hour in the evening without her boot. She still has some mild discomfort with ankle inversion but she is working on that with therapy. The past medical, family and social history have been reviewed in the patient chart. OBJECTIVE: There were no vitals taken for this visit. General appearance: Well-developed, well nourished, no acute distress. pleasant and cooperative. HEENT: normocephalic, atraumatic Lungs: no increased work of breathing Skin: clean, dry and intact Msk: Exam of the right ankle with mild swelling over lateral ankle, no ecchymosis or erythema. Skinis intact. 5/5 ankle dorsiflexion and platarflexion. Good perfusion distally and endorses intact sensation. Very mild tenderness over ATFL and tip of lateral malleolus, no discomfort with palpation over CFL today. Minimally tender over medial malleolus, no pain with squeeze test. Mild discomfort with ankle inversion and eversion. DIAGNOSTICS: No XR obtained today ASSESSMENT/PLAN: 34yoF with right ankle injury ~7 weeks ago. Pain and ROM is improving with time and PT, she's now able to walk ~2 hours a day without her boot. Provided with a lace up ankle brace today. May wean from boot into her lace up as tolerated at thispoint. Continue PT. Follow up in 4-6 weeks for reevaluation. Arabella is pleased with the plan. This note was prepared using voice recognition software and the EMR. There may be inadvertent errors and omissions. Deya Lyman APRN 03/19/2020 documented in this encounter Plan of Treatment Upcoming Encounters Date Type Department Care Team (Late st Contact Info) Description 03/23/2024 11:15 EDT Telemedicine [facility] Rheumatology [address] [place] [phone] Venecia Vega MD [address] [facility] [address] [place] [phone] documented as of this encounter Visit Diagnoses Diagnosis Sprain of right ankle, unspecified ligament, subsequent encounter- Primary documented in this encounter Care Teams Home Service Director Relationship Specialty Start Date End Date Serafin Saucedo MD [address] [place] [phone] PCP - General 02/13/19 04/25/20 documented as of this encounter
--- OUTSIDE RECORDS SUMMARY | 2024-03-14 17:59 | XMS_ITS | Encounter Summary ---
Author Organization [facility] Address [address] [place] [address] Care Team Providers Care Sales/Marketing Name Role Phone Phoebe Iyer ABHAY Primary Care Provider [phone] Reason for Visit * Reason Onset Date Comments Prior Auth, Medication 10/22/2020 Encounter Details Date Type Department Care Team (Late st Contact Info) Description 10/22/2020 Telephone [facility] [place] Rhe[place]ology [address] [place], [place] [phone] Venecia Vega MD [address] [facility] [address] [place] [phone] Prior Auth, Medication Social History [...] encounter Miscellaneous Notes * Telephone Encounter - Denise Mayfield - 10/22/2020 0846 EDT Prior Authorization Approval Medication: Xeljanz 5mg bid renewal Approved: through 10/22/21 Authorization Number: [id number] Benefits Information or Other Notes: Required Pharmacy: Preferred Pharmacy: [facility] (eligible to fill with [facility] in the future if she would like) Prior Authorization Submission Process Medication: Xeljanz 5mg bid renewal Insurance: WIM Date PA Request Received: 10/18/20 [place] Submission Date: 10/22/20 [facility] [place]: n/a submitted via fax Submitted by: Denise Phone: [phone] documented in this encounter Plan of Treatment Upcoming Encounters Date Type Department Care Team (Late st Contact Info) Description 03/23/2024 11:15 EDT Telemedicine [facility] Rheumatology [address] [place] [phone] Venecia Vega MD [address] [facility] [address] [place] [phone] documented as of this encounter Visit Diagnoses Not on filedocumented in this encounter Care Teams Sales/Marketing Relationship Specialty Start Date End Date Phoebe Iyer FNP PCP - General 07/09/20 11/20/21 documented as of this encounter
--- OUTSIDE RECORDS SUMMARY | 2024-03-14 17:59 | XMS_ITS | Encounter Summary ---
Author Organization [facility] Address [address] [place] [address] Care Team Providers Care Outside Sales Engineer Name Role Phone Serafin Saucedo MD Primary Care Provider [phone] Reason for Visit * Reason Comments Pain * Consult (Routine/Next Available) - Closed Specialty Diagnoses / Procedures Referred By Nishant garcia Referred To Contact Orthopedic Surgery Diagnoses Acute right ankle pain Arlyn Curiel PA-C [address] [place] [phone] [facility] [place] [facility] [address] [place] [address] Referral ID Status Reason Start Date Expiration Date V isits Requested Visits Authorized [id number] Closed Specialty Services Required 02/03/2020 1 1 Encounter Details Date Type Department Care Team (Late st Contact Info) Description 02/08/2020 8:15 EDT Office Visit [facility] [place] Orthopedics & Sport Medicine [address] [place], [place] [phone] Deya Lyman, NIKKO [address] [facility] [address] [place] [address] Sprain of right ankle, unspecified ligament, initial encounter (Primary Dx) Social History Tobacco Use [...] have Coronavirus / COVID-19? No / Unsure 02/08/2020 8:15 EDT documented as of this encounter Functional [...] this encounter Progress Notes * Deya Lyman, EDUCATION PROGRAM COORDINATOR - 02/08/2020 0815 EDT CHIEF COMPLAINT: Right ankle injury - DOI 02/02 SUBJECTIVE: Arabella Ojeda is a 34 y.o. female who presents today for evaluation of her right ankleinjury which occurred when she tripped walking down some stairs with her puppy 5 days ago. She thinks she inverted her ankle but can't really remember it happened so quickly. She was evaluated in [facility] later that day, XR ready as negative for fracture and she was placed in a walking boot. She has beenusing crutches for comfort. She is still quite tender, mostly over her lateral ankle but swelling has decreased significantly. She used ibuprofen for 3 days but this caused stomach problems. She is elevating when she can. ROS: see HPI above The past medical, family and social history have been reviewed in the patient chart. She is a neversmoker. Past Medical History: Diagnosis Date ??? Lyme disease 07/07/2019 Treatment with naturopathy Antibiotics. Supplements and tinctures. Therapy from 02/19 to 06/22 Dr Wyatt at [facility]. ??? Obesity (BMI 30-39.9) ??? Otitis media, recurrent, bilateral ??? Seronegative spondyloarthropathy ([facility]) 07/07/2019 ??? Seronegative spondyloarthropathy ([facility]) 07/07/2019 Social History Tobacco Use ??? Smoking status: Never Smoker ??? Smokeless tobacco: Never Used Substance Use Topics ??? Alcohol use: Not Currently Past Surgical History: Procedure Laterality Date ??? DILATION AND CURETTAGE OF UTERUS 03/2005 for [facility] ??? TUBAL LIGATION Bilateral 07/2016 ??? WRIST SURGERY Left 2001 ([place] [facility]) ??? WRIST SURGERY Left 03/2007 (ganglion cyst) ??? WRIST SURGERY Left 2008 (cyst) No Known Allergies Medications Prior to Today's Visit Medication Sig ??? acetaminophen (TYLENOL) 500 mg tablet Take 2 Tabs by mouth every 6 hours as needed. ??? amoxicillin (AMOXIL) 500 mg capsule Take 1 Cap by mouth 3 times daily. ??? fluticasone propionate (FLONASE) 50 mcg/actuation nasal spray Instill 1 [place] into both nostrils daily. ??? hydroxychloroquine (PLAQUENIL) 200 mg tablet Take 1 Tab by mouth daily. ??? loratadine (CLARITIN) 10 mg tablet Take 10 mg by mouth if needed. ??? naproxen (NAPROSYN) 500 mg tablet Take 1 Tab by mouth 2 times daily as needed for Pain. ??? omeprazole (PRILOSEC) 20 mg capsule TAKE ONE CAPSULE BY MOUTH DAILY NEEDED (Patient taking differently: 40 mg. ) ??? sulfaSALAzine (AZULFIDINE) 500 mg [facility] tablet Take 3 tabs in the AM and 2 tabs in the PM ??? tofacitinib (XELJANZ) 5 mg tablet Take 1 Tab by mouth 2 times daily. No facility-administered medications prior to visit. OBJECTIVE: There were no vitals taken for this visit. On physical exam, the patient is found to be a very pleasant and cooperative female who appears to be alert and oriented x 3. She is well-developed, well- nourished and in no significant distress. Breathing is unlabored. Skin is warm pink and dry to inspection and palpation. Exam of the right ankle with moderate swelling about the ankle, moreso laterally. Mild ecchymosis over lateral ankle and lower anterior . She is anxious with exam. She is most tender over lateral ankle, lateral malleolus, ATFL and CFL. She has some mild tenderness medially and over anterior ankle. Discomfort with squeeze test. Radiographs of the right ankle from 02/02 were reviewed. Moderate soft tissue swelling. Possible small avulsion off lateral malleolus. Ankle mortise is congruent with no obvious widening. ASSESSMENT: 34yoF with right ankle injury 5 days ago. Exam consistent with ATFL and CFL sprain as well as high ankle sprain. Possible small avulsion fracture off the tip of lateral malleolus. PLAN: Educated on above diagnosis and all questions answered to patient's satisfaction. Recommend continuing with walking boot, partial weight bearing as tolerated with crutches. Ice/heat for comfort, compression with tubigrip and this was provided today and elevation whenever possible at home. Remove boot for gentle ankle ROM twice a day. Follow up in 2 weeks for reevalution. We discussed possible PT referral at future visit but will wait to see how she does with home exercises. Arabella is pleased with the plan. This note was prepared using voice recognition software and the EMR. There may be inadvertent errors and omissions. Deya Lyman APRN 02/08/2020 documented in this encounter Plan of Treatment Upcoming Encounters Date Type Department Care Team (Late st Contact Info) Description 03/23/2024 11:15 EDT Telemedicine [facility] Rheumatology [address] [place] [phone] Venecia Vega MD [address] [place] [address] [address] [place] [phone] documented as of this encounter Visit Diagnoses Diagnosis Sprain of right ankle, unspecified ligament, initial encounter- Primary documented in this encounter Care Teams Outside Sales Engineer Relationship Specialty Start Date End Date Serafin Saucedo MD [address] [place] [phone] PCP - General 02/13/19 04/25/20 documented as of this encounter
--- OUTSIDE RECORDS SUMMARY | 2024-03-14 17:59 | XMS_ITS | Encounter Summary ---
Author Organization [facility] Address [address] [place] [address] Care Team Providers Care Battery Technician Name Role Phone Serafin Saucedo MD Primary Care Provider [phone] Reason for Visit * Reason Comments Follow-up Doing better ,slight pain in knees and swelling resolved. Encounter Details Date Type Department Care Team (Latest Contact Info) Description 01/03/2020 9:45 EDT Telemedicine [facility] [place] [address] [place], [place] [phone] Venecia Vega MD [address] [place] [address] [address] [place] [phone] High risk medication use (Primary Dx); Seronegative spondyloarthropathy ([facility]) Social History Tobacco Use Types Packs/Day Years [...] - - Weight 117.9 kg (260 lb) 01/03/2020 0830 EDT Height - - Body Mass Index 40.72 11/30/2019 0832 EDT documented in this encounter Functional Status [...] * Patient Instructions* Venecia Vega MD - 01/03/2020 9:45 EDT Taper the sulfasalazine To 3 tabs in am, if supply availability remains low reduce to 1 A day Xeljanz 5 mg twice a day Continue the hydroxychlorquine Labs ok Follow up in 6 weeks documented in this encounter Ordered Prescriptions Prescription Sig Dispensed Refills Start Date End Da te sulfaSALAzine (AZULFIDINE) 500 mg EC tabletIndications:Seronegative spondyloarthropathy Take 3 tabs in the AM and 2 tabs in the PM 450 Tab 1 01/03/2020 02/14/2020 documented in this encounter Progress Notes * Venecia Vega MD - 01/03/2020 0945 EDT [facility] [place] Visit Today's visit was provided through [...] auxiliary staff: yes. Subjective: Chief Complaint(s): Follow-up (Doing better ,slight pain in knees and swelling resolved.) Seronegative spondyloarthropathy -dx 2017 knee effusion neg serology. Sister Crohns disease. Patient no gi issues, no uveitis - teeth dark on methotrexate (stopped) Humira (did not tolerate) enbrel (did not tolerate) Arava (did not tolerate?)2018 remicade infusions effective but stopped due to severe headaches lasting a week after infusions. In 2018 stopped allopathic care to pursue naturopathic care. Rx [id number] with 15months antibiotics/supplements prednisone from [facility] . PT not effective. Re-eval rheum 06/22. Restart prednisone SSZ 06/22 added plaquenil. Added Xeljanz November 2019 ?? HPI: I have reviewed patient's tobacco history: reports that she has never smoked. She has never used smokeless tobacco. I have reviewed current problem list and current medications. Patient has started Xejanz with improved Concern about shortage of sulfasalazine No rash No calf swelling NO rash. Energy good. Normal rom in knees but swelling has decreased. ROS: ROS See hpi. 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 No etoh no smoking Objective: Examination: Home Vitals: Wt (!) 117.9 kg (260 lb) BMI 40.72 kg/m?? Pertinent exam findings: appears well, no wheeze, no rash on visible skin and mood and affect appropriate Data reviewed with patient: most recent labs reviewed, request for medical records at outside institution not accessible through [facility] and [facility] 34 yo woman with seronegative spondyloarthropathy. Have to lower ssz due to lack of available pills(supply chain issues) Improved with Xeljanz will taper the ssz taper plaquenil. Assessment & Plan: 1. High risk medication use COMPLETE BLOOD COUNT AND DIFFERENTIAL COMPREHENSIVE METABOLIC PANEL (CMP) C REACTIVE PROTEIN labs ok. 2. Seronegative spondyloarthropathy (HCC-CMS) sulfaSALAzine (AZULFIDINE) 500 mg EC tablet COMPLETE BLOOD COUNT AND DIFFERENTIAL COMPREHENSIVE METABOLIC PANEL (CMP) C REACTIVE PROTEIN Ssz taper due to reduced availability Xeljanz working continue Continue hydroxychloroquine. A total of 25 minutes was spent on this encounter on the day of this encounter. The following individuals and their role did participate in today's encounter visit: Provider: Venecia Vega MD Patient documented in this encounter Plan of Treatment Upcoming Encounters Date Type Department Care Team (Late st Contact Info) Description 03/23/2024 11:15 EDT Telemedicine [facility] [place] [address] [place] [address] Venecia Vega MD [address] [facility] [address] [place] [phone] documented as of this encounter Visit Diagnoses [...] and 2 tabs in the PM Reorder 12/29/2019 01/03/2020 documented as of this encounter Care Teams Battery Technician Relationship Specialty Start Date End Date Serafin Saucedo MD [address] [place] [phone] PCP - General 02/13/19 04/25/20 documented as of this encounter
--- OUTSIDE RECORDS SUMMARY | 2024-03-14 17:59 | XMS_ITS | Encounter Summary ---
Author Organization [facility] Address [address] [place] [address] Care Team Providers Care Learning Coach Name Role Phone Serafin Saucedo MD Primary Care Provider [phone] Reason for Visit * Reason Onset Date Comments Otalgia 01/17/2020 Encounter Details Date Type Department Care Team ([facility] st Contact Info) Description 01/17/2020 Telephone [facility] - [place] [address] [place], [place] [phone] Serafin Saucedo MD [address] [place] [phone] Otalgia Social History Tobacco Use Types Packs/Day Years [...] Dispensed Refills Start Date End Da te amoxicillin (AMOXIL) 500 mg capsule Take 1 Cap by mouth 3 times daily. 30 Cap 01/17/2020 02/14/2020 documented in this encounter Miscellaneous Notes * Telephone Encounter - Serafin Saucedo III, MD - 01/17/2020 1638 EDT I had seen her on January 03 with bilateral ear pain. At that time, her right TM looked okay, the left was dulled and abnormal. I treated her with amoxicillin for 10 days, she improved, states 50% better, but, over the 3 days since she stopped that medication, the pain in her left ear is getting worse.I elected to treat her again with the amoxicillin. She will be in touch should that not be helpful.. There are still refills on her prior fluconazole * Telephone Encounter - Brooke Hagan - 01/17/2020 1632 EDT Ear pain is back. Out to Dr. Saucedo. documented in this encounter Plan of Treatment Upcoming Encounters Date Type Department Care Team (Late st Contact Info) Description 03/23/2024 11:15 EDT Telemedicine [facility] [place] Rheumatology [address] [place] [phone] Venecia Vega MD [address] [place] [address] [address] [place] [phone] documented as of this encounter Visit Diagnoses Not on filedocumented in this encounter Discontinued Medications Medication Sig Discontinue Reason Start Date End Da te amoxicillin (AMOXIL) 500 mg capsule Take 1 Cap by mouth 3 times daily. Reorder 01/04/2020 01/17/2020 documented as of this encounter Care Teams Learning Coach Relationship Specialty Start Date End Date Serafin Saucedo MD [address] [place] [phone] PCP - General 02/13/19 04/25/20 documented as of this encounter
--- OUTSIDE RECORDS SUMMARY | 2024-03-14 17:59 | XMS_ITS | Encounter Summary ---
Author Organization [facility] Address [address] [place] [address] Care Team Providers Care Applications Systems Analyst Name Role Phone Serafin Saucedo MD Primary Care Provider [phone] Encounter Details Date Type Department Care Team (Late st Contact Info) Description 02/20/2020 Results Only [facility] [place] [address] [place] [address] Venecia Vega MD [address] [facility] [address] [place] [phone] Social History Tobacco Use Types [...] EDT Telemedicine [facility] Rheumatology [address] [place] [phone] Venecia Vega MD [address] [place] [address] [address] [place] [phone] documented as of this encounter Procedures Procedure Name Priority Date/Time Associated Diagnosis Comments COMPLETE BLOOD COUNT WITH DIFFERENTIAL (AUTO) Routine 02/20/2020 15:10 EDT C REACTIVE PROTEIN Routine 02/20/2020 15 :10 EDT TSH Routine 02/20/2020 15:10 EDT COMPREHENSIVE METABOLIC PANEL (CMP) Routine 02/20/2020 15:10 EDT documented in this encounter Results * TSH (02/20/2020 15:10 EDT) THYROID STIM HORMONE - [facility] 1.10 0.46 - 4.68 uIU/ml 02/20/2020 17:31 EDT [facility] Comment: The results of this assay can be falsely lowered due to the consumption of Biotin. 02/20/2020 15:1 0 EDT 02/20/2020 15:10 EDT Narrative [facility] - 02/20/2020 17:31 EDT Does PT Have a Latex Allergy? NO Venecia Vega MD CHEMISTRY & BLOO D GAS ORDERABLES Performing Organization Address [facility]/ZIP Co de Phone Number [facility] [address] [place] [address] * (ABNORMAL) C REACTIVE PROTEIN (02/20/2020 15:10 EDT) Pathologist [facility] C-Reactive Protein 13.1(H) <10.0 mg/L 02/20/2020 17:03 EDT [facility] 02/20/2020 15:1 0 EDT 02/20/2020 15:10 EDT Narrative [facility] - 02/20/2020 17:03 EDT Does PT Have a Latex Allergy? NO Venecia Vega MD CHEMISTRY & BLOO D GAS ORDERABLES Performing Organization Address [facility] Co de Phone Number [facility] [address] [place] [address] * (ABNORMAL) COMPREHENSIVE METABOLIC PANEL (CMP) (02/20/2020 15:10 EDT) Pathologist [facility] Albumin % 4.0 3.4 - 4.9 g/dL 02/20/2020 17:03 EDT [facility] ALKALINE PHOSPHATASE - [facility] 69 38 - 126 U/L 02/20/2020 17:03 EDT [facility] BILIRUBIN TOTAL 0.3 0.2 - 1.3 mg/dL 02/20/2020 17:03 EDT [facility] BUN - [facility] 9(L) 10 - 26 mg/dL 02/20/2020 17:03 T [facility] CALCIUM - [facility] 9.2 8.5 - 10.5 mg/dL 02/20/2020 [facility] Ch[facility] 103 96 - 110 mmol/L 02/20/2020 17:03 EDT [facility] CO2 Total 27 22 - 32 mEq/L 02/20/2020 17:03 EDT [facility] CREATININE 0.66 0.52 - 1.04 mg/dL 02/20/2020 17:03 EDT [facility] eGFR >60 02/20/2020 17:03 EDT [facility] Comment: Chronic renal impairment is defined as GFR <60 Multiply result by 1.210 for patients. eGFR calculated using the IDMS-traceable MDRD Study Equation. ??(effective 05/07/2014) Anion Gap 9 0 - 18 02/20/2020 17:03 EDT [facility] GLUCOSE - [facility] 89 70 - 100 mg/dL 02/20/2020 17:03 [facility] Potassium 4.3 3.5 - 5.0 mEq/L 02/20/2020 17:03 [facility] Sodium 139 136 - 145 mEq/L 02/20[facility]2020 [facility] TOTAL PROTEIN - [facility] 7.2 6.2 - 8.2 gm/dL 02/20/2020 17:03 [facility] SGOT/AST - [facility] 23 14 - 36 U/L 02/20/2020 17:03 [facility] SGPT/ALT - [facility] 17 0 - 35 U/L 0 17:03 [facility] 02/20/2020 15:1 0 EDT 02/20/2020 15:10 EDT Narrative [facility] - 02/20/2020 17:03 EDT Does PT Have a Latex Allergy? NO Venecia Vega MD CHEMISTRY & BLOO D GAS ORDERABLES [facility] [address] [place] [address] * (ABNORMAL) COMPLETE BLOOD COUNT WITH DIFFERENTIAL (AUTO) (02/20/2020 15:10 EDT) Gran # 5.5 2.2 - 8.85 10e3/uL 02/20/2020 16:32 EDT [facility] BASO # - [facility] 0.05 0.01 - 0.11 10e/uL 02/20/2020 16:32 [facility] BASO % - [facility] 1 0 - 2 % 02/20/2020 16:32 [facility] EOS # - [facility] 0.40 0.03 - 0.61 10e3/ul 02/20/2020 16:32 [facility] EOS % - [facility] 4 0 - 5 % 02/20/2020 16:32 [facility] GRAN % - [facility] 50.3 40 - 80 % 02/20/2020 16:32 [facility] HEMATOCRIT - [facility] 39.0 34.9 - 44.4 % 02/20/2020 16:32 [facility] HEMOGLOBIN - [facility] 12.6 11.6 - 15.2 g/dl 02/20/2020 16:32 [facility] IG# - [facility] 0.04 0 - 0.7 10e3/uL 02/20/2020 16:32 [facility] IG% - [facility] 0.4 0 - 0.9 % 02/20/2020 16:32 [facility] LYMPH # - [facility] 4.2(H) 1.09 - 3.3 10e3/ul 02/20/2020 16:32 [facility] LYMPH% - [facility] 38.5 20 - 40 % 02/20/2020 16:32 [facility] MEAN CORPUSCULAR HGB - [facility] 29.2 26.7 - 33.3 pg 02/20/2020 16:32 [facility] MEAN CORPUSCULAR HGB CONC - [facility] 32.3 32.1 - 35.9 g/dL 02/20/2020 16:32 [facility] MEAN CELL VOLUME - [facility] 90.3 81 - 98 fl 02/20/2020 16:32 [facility] MONO # - [facility] 0.7 0.1 - 0.8 10e3/uL 02/20/2020 16:32 [facility] MONO% - [facility] 6.7 0 - 12 % 02/20/2020 16:32 [facility] PLATELET COUNT 487(H) 141 - 377 10e3/ul 02/20/2020 16:32 EDT [facility] RED BLOOD COUNT - [facility] 4.32 3.86 - 5.04 10e3/ul 02/20/2020 16:32 EDT [facility] RED CELL DISTRI WIDTH - [facility] 14.5 <14.7 % 02/20/2020 16:32 EDT [facility] WHITE BLOOD COUNT - [facility] 11.0 4.0 - 12.4 10e3/ul 02/20/2020 16:32 EDT [facility] 02/20/2020 15:1 0 EDT 02/20/2020 15:10 EDT Narrative [facility] - 02/20/2020 16:32 EDT Does PT Have a Latex Allergy? NO Venecia Vega MD HEMATOLOGY & PF4 ORDERABLES [facility] [address] [place] [address] documented in this encounter Visit Diagnoses Not on filedocumented in this encounter Care Teams Applications Systems Analyst Relationship Specialty Start Date End Date Serafin Saucedo MD [address] [place] [phone] PCP - General 02/13/19 04/25/20 documented as of this encounter
--- OUTSIDE RECORDS SUMMARY | 2024-03-14 17:59 | XMS_ITS | Encounter Summary ---
Author Organization [facility] Address [address] [place] [address] Care Team Providers Care Mechanical Door Repairer Name Role Phone Unavailable Primary Care Provider Unavailabl e Reason for Visit * Reason Onset Date Comments Other 07/08/2020 Encounter Details Date Type Department Care Team (Late st Contact Info) Description 07/08/2020 Telephone [facility] Rheumatology [address] [place] [address] Venecia Vega MD [address] [facility] [address] [place] [phone] Other Social History Tobacco Use [...] encounter Miscellaneous Notes * Telephone Encounter - Beth Carlisle - 07/08/2020 1327 EST Faxed standing order to [facility], is there any other orders for patient to have drawn prior to upcoming appointment? * Telephone Encounter - Katt Stringer RN - 07/08/2020 0936 EST M stating that Dr. Vega said in her last visit note that lab orders were faxed to [facility] and asked her to call there and let us know if they don't have the orders. * Telephone Encounter - Beth Carlisle - 07/08/2020 0843 EST Patient called regarding lab work she needs done before her appointment 07/10/2020. She says she needs the orders to be sent to [facility] ([phone]). Good call back [phone] documented in this encounter Plan of Treatment Upcoming Encounters Date Type Department Care Team (Late st Contact Info) Description 03/23/2024 11:15 EDT Telemedicine [facility] Rheumatology [address] [place] [address] Venecia Vega MD [address] [facility] [place] [phone] documented as of this encounter Visit Diagnoses Not on filedocumented in this encounter
--- OUTSIDE RECORDS SUMMARY | 2024-03-14 17:59 | XMS_ITS | Encounter Summary ---
Author Organization [facility] Address [address] [place] [address] Care Team Providers Care Clothes Marker Name Role Phone Serafin Saucedo MD Primary Care Provider [phone] Reason for Visit * Reason Comments Otalgia bilateral Encounter Details Date Type Department Care Team (Latest Contact Info) Description 01/04/2020 15:30 EDT Office Visit [facility] Adult Primary Care - [address] [phone] Serafin Saucedo MD [address] [place] [phone] Non-recurrent acute suppurative otitis media of left ear without spontaneous rupture of tympanic membrane (Primary Dx); Seronegative spondyloarthropathy (HCC-CMS); Weight gain Social History Tobacco Use Types Packs/Day Years [...] Sign Reading Time Taken Comments Blood Pressure 130/84 01/04/2020 1532 EDT Pulse 80 01/04/2020 1532 EDT Temperature - - Respiratory Rate 16 01/04/2020 1532 EDT Oxygen Saturation - - Inhaled Oxygen Concentration - - Weight 118.4 kg (261 lb) 01/04/2020 153 EDT Height 170.2 cm (5' 7) 01/04/2020 153 EDT Body Mass Index 40.88 01/04/2020 153 EDT documented in this encounter Functional Status [...] End Da te fluconazole (DIFLUCAN) 150 mg tablet Take 1 Tab by mouth once for 1 day. 1 Tab 2 01/04/2020 01/05/2020 amoxicillin (AMOXIL) 500 mg capsule Take 1 Cap by mouth 3 times daily. 30 Cap 01/04/2020 01/17/2020 documented in this encounter Progress Notes * Dorie Swenson - 01/04/2020 1530 EDT Fever: no Chills: no New or Unusual Cough: no SOB: no Body Aches: no Loss of smell/taste: no Sore Throat: no TEMP:98.7 Details on positives: * Serafin Saucedo III, MD - 01/04/20200 EDT Progress Note Patient ID: Arabella Ojeda Date of Service: 01/04/2020 Reason for Visit: Otalgia (bilateral) Subjective: Ms. Ojeda presents with a 3-day history of bilateral ear discomfort, no drainage or hearing loss. She has been using fluticasone nasal spray and loratadine, without apparent improvement. She denies any nasal congestion or rhinorrhea, denies any fever or chills. She does note an increased headache. Reviewing the record, she had been seen here 1 year ago with a right-sided earache. Over the years, she apparently has been treated repeatedly for apparent otitis media. A thorough exam by Dr. Phan February 2019 did not identify significant pathology. She had previously developed an acute inflammatory arthritis involving the left knee, subsequently took prolonged doxycycline for presumed chronic Lyme disease, subsequently developed arthritis involving the right knee as well. More recently, on Xeljanz, both knees are doing much better. Outpatient Medications Marked as Taking for the 01/04/20 encounter (Office Visit) with Serafin Saucedo III, MD Medication Sig Dispense Refill ??? acetaminophen (TYLENOL) 500 mg tablet Take 2 Tabs by mouth every 6 hours as needed. ??? fluticasone propionate (FLONASE) 50 mcg/actuation nasal spray Instill 1 [place] into both nostrils daily. (Patient taking differently: Instill 1 [place] into both nostrils if needed. ) 1 Bottle 2 ??? hydroxychloroquine (PLAQUENIL) 200 mg tablet Take 1 Tab by mouth daily. 30 Tab 3 ??? loratadine (CLARITIN) 10 mg tablet Take 10 mg by mouth if needed. ??? naproxen (NAPROSYN) 500 mg tablet Take 1 Tab by mouth 2 times daily as needed for Pain. 60 Tab 3 ??? omeprazole (PRILOSEC) 20 mg capsule TAKE ONE CAPSULE BY MOUTH DAILY NEEDED (Patient taking differently: 40 mg. ) 90 Cap 2 ??? sulfaSALAzine (AZULFIDINE) 500 mg EC tablet Take 3 tabs in the AM and 2 tabs in the PM 450 Tab 1 ??? tofacitinib (XELJANZ) 5 mg tablet Take 1 Tab by mouth 2 times daily. 60 Tab 5 No Known Allergies Review of Systems Constitutional: Her weight is up 8 pounds over the past year Musculoskeletal: As above Patient Active Problem List Diagnosis ??? Seronegative spondyloarthropathy (HCC-CMS) ??? High risk medication use ??? Lyme disease Past Surgical History: Procedure Laterality Date ??? [...] use: Not Currently ??? Drug use: Never Objective: VS: BP 130/84 Pulse 80 Resp 16 Ht 170.2 cm (67) Wt (!) 118.4 kg (261 lb) BMI 40.88 kg/m?? Physical Exam Constitutional: Pleasant heavyset young woman HENT: Ear canals free of cerumen, right TM appears normal, left TM is pale with indistinct landmarks. Hearing seems well preserved bilaterally, perhaps slightly worse on the left side Vitals reviewed. Assessment/Plan: 1. Non-recurrent acute suppurative otitis media of left ear without spontaneous rupture of tympanicmembrane Apparent left otitis media, cannot explain pain in the right ear. We will go with amoxicillin and fluconazole as needed 2. Seronegative spondyloarthropathy (HCC-CMS) Knee symptoms much improved on present Xeljanz and sulfasalazine 3. Weight gain Rule out hypothyroidism. She will be having lab work done soon to monitor her CRP. I suggested thatshe hold off on that until her ear infection is resolved. We will add in a TSH with it No follow-ups on file.. Serafin Saucedo MD documented in this encounter Plan of Treatment Upcoming Encounters Date Type Department Care Team (Late st Contact Info) Description 03/23/2024 11:15 EDT Telemedicine [facility] Rheumatology [address] [place], [place] [phone] Venecia Vega MD [address] [facility] [place] [phone] documented as of this encounter Visit Diagnoses Diagnosis Non-recurrent acute suppurative otitis media of left ear without spontaneous rupture of tympanic membrane- Primary Seronegative spondyloarthropathy Spondylosis of unspecified site without mention of myelopathy Weight gain Abnormal weight gain documented in this encounter Care Teams Clothes Marker Relationship Specialty Start Date End Date Serafin Saucedo MD [address] [place] [phone] PCP - General 02/13/19 04/25/20 documented as of this encounter
--- OUTSIDE RECORDS SUMMARY | 2024-03-14 17:59 | XMS_ITS | Encounter Summary ---
Author Organization [facility] Address [address] [place] [address] Care Team Providers Care Broaching Machine Set Up Operator Name Role Phone Serafin Saucedo MD Primary Care Provider [phone] Encounter Details Date Type Department Care Team (Latest Contact Info) Description 12/29/2019 Orders Only [facility] Rheumatology [address] [place] [address] Germaine Irby RN Seronegative spondyloarthropathy ([facility]) (Primary Dx) Social History Tobacco Use [...] tabs in the PM 450 Tab 1 12/29/2019 01/03/2020 documented in this encounter Plan of Treatment Upcoming Encounters Date Type Department Care Team (Late Contact Info) Description 03/23/2024 11:15 EDT Telemedicine [facility] Rheumatology [address] [place] [address] Venecia Vega MD [address] [facility] [place] [phone] documented as of this encounter Visit Diagnoses Diagnosis Seronegative spondyloarthropathy- Primary Spondylosis of unspecified site without mention of myelopathy documented in this encounter Discontinued Medications Medication Sig Discontinue Reason Start Date End Da te sulfaSALAzine (AZULFIDINE) 500 mg EC tabletIndications:Seronegative spondyloarthropathy Take 3 tabs in the AM and 2 tabs in the PM Reorder 10/16/2019 12/29/2019 documented as of this encounter Care Teams Broaching Machine Set Up Operator Relationship Specialty Start Date End Date Serafin Saucedo MD [address] [place] [phone] PCP - General 02/13/19 04/25/20 documented as of this encounter
--- OUTSIDE RECORDS SUMMARY | 2024-03-14 17:59 | XMS_ITS | Encounter Summary ---
Author Organization [facility] Address [address] [place] [address] Care Team Providers Care Health Promotion Manager Name Role Phone Serafin Saucedo MD Primary Care Provider [phone] Reason for Visit * Reason Comments Follow-up Televideo visit- Pat ient c/o mild bilateral knee pain. Encounter Details Date Type Department Care Team (Late st Contact Info) Description 11/10/2019 16:15 EDT Telemedicine [facility] [place] [address] [place] [address] Venecia Vega MD [address] [facility] [address] [place] [address] Encounter for long-term (current) use of medications (Primary Dx); Spondyloarthropathy Social History Tobacco Use Types Packs/Day Years [...] * Patient Instructions* Venecia Vega MD - 11/10/2019 16:15 EDT Add hydroxychloroquine 200 mg daily Prednisone 5 mg every other day. Call if you are having difficulty with his taper. Read about hydroxychloroquine [facility] Patient Instructions hydroxychloroquine Pronunciation: jonathan drox ee OTIS mosqueda kwin Brand: Plaquenil What is the most important information I should know about hydroxychloroquine? Taking hydroxychloroquine long-term or at high doses may cause irreversible damage to the retina ofyour eye. Stop taking hydroxychloroquine and call your doctor at once if you have trouble focusing,if you see light streaks or flashes in your vision, or if you notice any swelling or color changes in your eyes. What is hydroxychloroquine? Hydroxychloroquine is used to treat or prevent malaria, a disease caused by parasites that enter the body through the bite of a mosquito. Malaria is common in areas such as [place], [place], [facility]. This medicine is not effective against all strains of malaria. Hydroxychloroquine is also used to treat symptoms of rheumatoid arthritis and discoid or systemic lupus erythematosus. Hydroxychloroquine may also be used for purposes not listed in this medication guide. What should I discuss with my health care provider before taking hydroxychloroquine? You should not use hydroxychloroquine if you are allergic to it. Hydroxychloroquine should not be used for long-term treatment in children. To make sure hydroxychloroquine is safe for you, tell your doctor if you have: ?? a history of vision changes or damage to your retina caused by an anti- malaria medication; ?? heart disease, heart rhythm disorder (such as long QT syndrome); ?? diabetes; ?? a stomach disorder; ?? an allergy to quinine; ?? liver or kidney disease; ?? psoriasis; ?? alcoholism; or ?? a genetic enzyme disorder such as porphyria or awsayvy-2-cajvcujso dehydrogenase (G6PD) deficiency. It is not known whether this medicine will harm an unborn baby. Tell your doctor if you are or plan to become . Malaria is more likely to cause in a woman. If you are , talk with your doctor about the risks of traveling to areas where malaria is common. It is not known whether hydroxychloroquine passes into breast milk or if it could harm a nursing baby. Tell your doctor if you are breast-feeding a baby. Hydroxychloroquine is not approved for use by anyone younger than 18 years old. How should I take hydroxychloroquine? Follow all directions on your prescription label. Do not take this medicine in larger or smaller amounts or for longer than recommended. Hydroxychloroquine is sometimes given only once per week. Choose the same day each week to take this medicine if you are on a weekly dosing schedule. Take hydroxychloroquine with a meal or a glass of milk. To prevent malaria: Start taking the medicine 2 weeks before entering an area where malaria is common. Continue taking the medicine regularly during your stay and for at least 8 weeks after you leavethe area. To treat malaria: Hydroxychloroquine is usually given for 3 days, starting with one high dose followed by a smaller dose during the next 2 days in a row. Take this medicine for the full prescribed length of time for malaria. Your symptoms may improve before the infection is completely cleared. Use protective clothing, insect repellents, and mosquito netting around your bed to further preventmosquito bites that could cause malaria. Call your doctor as soon as possible if you have been exposed to malaria, or if you have fever or other symptoms of illness during or after a stay in an area where malaria is common. No medication is 100% effective in treating or preventing all types of malaria. For best results, keep using the medication as directed. Talk with your doctor if you have fever, vomiting, or diarrheaduring your treatment. When treating lupus or arthritis, hydroxychloroquine is usually given daily for several weeks or months. For best results, keep using the medication as directed. Talk with your doctor if your symptoms do not improve after 6 months of treatment. While using hydroxychloroquine, you may need frequent blood tests and vision exams. Store at room temperature away from moisture, heat, and light. What happens if I miss a dose? Take the missed dose as soon as you remember. Skip the missed dose if it is almost time for your next scheduled dose. Do not take extra medicine to make up the missed dose. What happens if I overdose? Seek emergency medical attention or call the Poison Help line at . An overdose of hydroxychloroquine can be fatal, especially in children. Hydroxychloroquine overdose must be treated quickly. You may be told to induce vomiting right away (at home, before transport to an emergency room). Ask the poison control center how to induce vomiting in the case of an overdose. Overdose symptoms may include drowsiness, vision changes, slow heart rate, chest pain, severe dizziness, seizure (convulsions), or shallow breathing. What should I avoid while taking hydroxychloroquine? Avoid taking an antacid or Kaopectate (kaolin-pectin) within 4 hours before or after you take hydroxychloroquine. Some antacids can make it harder for your body to absorb hydroxychloroquine. What are the possible side effects of hydroxychloroquine? Get emergency medical help if you have signs of an allergic reaction: hives; difficulty breathing; swelling of your face, lips, tongue, or throat. Taking hydroxychloroquine long-term or at high doses may cause irreversible damage to the retina ofyour eye. Stop taking hydroxychloroquine and call your doctor at once if you have trouble focusing,if you see light streaks or flashes in your vision, or if you notice any swelling or color changes in your eyes. Call your doctor at once if you have: ?? headache with chest pain and severe dizziness, fainting, fast or pounding heartbeats; ?? very slow heart rate, weak pulse; ?? muscle weakness, numbness or tingling; ?? low blood sugar --headache, hunger, sweating, irritability, dizziness, nausea, fast heart rate, and feeling anxious or shaky; or ?? low blood cell counts --fever, chills, sore throat, weakness or ill feeling, swollen gums, mouthsores, skin sores, rapid heart rate, pale skin, easy bruising, unusual bleeding, feeling light-headed. Common side effects may include: ?? headache, dizziness, ringing in your ears; ?? nausea, vomiting, stomach pain; ?? loss of appetite, weight loss; ?? mood changes, feeling nervous or irritable; ?? skin rash or itching; or ?? hair loss. This is not a complete list of side effects and others may occur. Call your doctor for medical advice about side effects. You may report side effects to FDA at 6-774-YTL-4951. What other drugs will affect hydroxychloroquine? Hydroxychloroquine can cause serious liver or heart problems, especially if you use certain medicines at the same time, including: ?? other medicines to treat malaria; ?? an antibiotic or antifungal medicine; ?? antiviral medicine to treat hepatitis or HIV/AIDS; ?? antidepressants or antipsychotic medicines; ?? control pills or hormone replacement therapy; ?? cancer medication; ?? cholesterol-lowering medication; ?? heart or blood pressure medicine; ?? pain or arthritis medicines (including aspirin, Tylenol, Advil, and Aleve); ?? seizure medication; ?? stomach acid reducers; or ?? tuberculosis medicine. This list is not complete and many other drugs can interact with hydroxychloroquine. This includes prescription and epoo-yey-zcbtzdl medicines, vitamins, and herbal products. Not all possible interactions are listed in this medication guide. Tell your doctor about all medicines you use, and those you start or stop using during your treatment with hydroxychloroquine. Give a list of all your medicines to any healthcare provider who treats you. Where can I get more information? Your pharmacist can provide more information about hydroxychloroquine. Remember, keep this and all other medicines out of the reach of children, never share your medicines with others, and use this medication only for the indication prescribed. Every effort has been made to ensure that the information provided by [employer]. ('[employer]') is accurate, up-to-date, and complete, but no guarantee is made to that effect. Drug information contained herein may be time sensitive. [employer] information has been compiled for use by healthcare practitioners and consumers in the [place] and therefore [employer] does not warrant that uses outside of the [place] are appropriate, unless specifically indicated otherwise. [employer] drug information does not endorse drugs, diagnose patients or recommend therapy. [employer] drug information isan informational resource designed to [...] effective or appropriate for any given patient. [employer] does not assume any responsibility for any aspect of healthcare administered with the aid of information [employer] provides. The information contained herein is not intended to cover all possible uses, directions, precautions, warnings, drug interactions, allergic reactions, or adverse effects. If you have questions about the drugs you are taking, check with your doctor, nurse or pharmacist. Copyright 6126-9540 [employer]. Version: 8.02. Revision date: 06/08/2017. Care instructions adapted under license by [facility]. If you have questions about a medical condition or this instruction, always ask your healthcare professional. [employer] disclaims any warranty or liability for your use of this information. documented in this encounter Ordered Prescriptions Prescription Sig Dispensed Refills Start Date End Da te hydroxychloroquine (PLAQUENIL) 200 mg tabletIndications:Spondylo arthropathy Take 1 Tab by mouth daily. 30 Tab 3 11/10/2019 02/20/2020 documented in this encounter Progress Notes * Venecia Vega MD - 11/10/2019 1615 EDT [facility] [place] Visit Today's visit was provided through [...] auxiliary staff: yes. Subjective: Chief Complaint(s): Follow-up (Televideo visit- Patient c/o mild bilateral knee pain. ) ?? Seronegative spondyloarthropathy -dx 2017 knee effusion neg serology. Sister Crohns - teeth dark on methotrexate (stopped) Humira (did not tolerate) enbrel (did not tolerate) remicadeinfusions effective stopped to pursue naturopathic care. Rx [id number] with 15 months antibiotics/supplements prednisone. PT not effective. Rtc 06/22. Restart prednisone SSZ 06/22 Add hydroxychloroquine November 2019 HPI: Patient states her knee is less swollen but still full. Range of motion gradually improving. Able to go up and down the stairs but has to take it easy. Finally able to sleep in bed rather than sleep in a recliner. No side effects from sulfasalazine tolerated increase in dose to 5 tabs daily. Feels ready to try to taper the prednisone from 5 mg daily to 5 mg every other day. Wanted to start hydroxychloroquine, shortage kept her from getting the medication but now that there is less of an issue she is willing to restart. No palpitations. No interactive medications. Denies any GI upset. No skin rashes. Otherwise feels she is gradually improving. I have reviewed patient's tobacco history: reports that she has never smoked. She has never used smokeless tobacco. I have reviewed current problem list and current medications. ROS: ROS See HPI otherwise review of systems negative. Objective: Examination: Home Vitals: There were no vitals taken for this visit. Pain 3 out of 10 left knee Pertinent exam findings: well woman in nad, small left knee effusion.ROM observed to be wnl. Right knee does not appear swollen. Data reviewed with patient: Reviewed and/or ordered medication list, allergies, family history, social history, notes from last encounter, lab results tests Assessment & Plan: 1. Encounter for long-term (current) use of medications Lab testing next week CBC, CMP CRP. 2. Spondyloarthropathy hydroxychloroquine (PLAQUENIL) 200 mg tablet SSZ dose 2500 mg daily Prednisone change to 5 mg every other day Add hq 200 mg daily eye exam when able A total of 25 minutes was spent on this encounter on the day of this encounter. At the time of thisencounter. Discussed sulfasalazine side effects, lab monitoring, prednisone taper, hydroxychloroquine side effects. RTC 2 months, ZOOM visit appropriate The following individuals and their role did participate in today's encounter visit: Provider: Venecia Vega MD Patient documented in this encounter Plan of Treatment Upcoming Encounters Date Type Department Care Team (Late st Contact Info) Description 03/23/2024 11:15 EDT Telemedicine [facility] Rheumatology [address] [place] [address] Venecia Vega MD [address] [facility] [address] [place] [phone] documented as of this encounter Visit Diagnoses Diagnosis Encounter for long-term (current) use of medications- Primary Encounter for long-term (current) use of other medications Spondyloarthropathy Spondylosis of unspecified site without mention of myelopathy documented in this encounter Discontinued Medications Medication Sig Discontinue Reason Start Date End Da te oseltamivir (TAMIFLU) 75 mg capsule Take 1 Cap by mouth 2 times daily. Therapy completed 07/12/2019 11/10/2019 ranitidine (ZANTAC) 300 mg tablet Take 300 mg by mouth if needed. Alternate therapy 07/23/2019 11/10/2019 tocopheryl acetate (VITAMIN E) 100 unit capsule Take 2 Caps by mouth daily. Error 11/10/2019 UNABLE TO FIND curaphem Therapy completed 11/10/2019 UNABLE TO FIND Other medication - -, Sig: Burburpinella 20 drops orally 2 times a day Therapy completed 11/10/2019 hydroxychloroquine (PLAQUENIL) 200 mg tabletIndications:Spo ndyloarthropathy Take 1 Tab by mouth daily. Reorder 10/12/2019 11/10/2019 documented as of this encounter Care Teams Health Promotion Manager Relationship Specialty Start Date End Date Serafin Saucedo MD [address] [place] [phone] PCP - General 02/13/19 04/25/20 documented as of this encounter
--- OUTSIDE RECORDS SUMMARY | 2024-03-14 17:59 | XMS_ITS | Encounter Summary ---
Author Organization [facility] Address [address] [place] [address] Care Team Providers Care Brush Cleaner Name Role Phone Unavailable Primary Care Provider Unavailabl e Reason for Visit * Reason Onset Date Comments Advice Only 04/30/2020 Encounter Details Date Type Department Care Team (Late st Contact Info) Description 04/30/2020 Telephone [facility] [place] [address] [place] [address] Venecia Vega MD [address] [facility] [address] [place] [phone] Advice Only Social History Tobacco Use Types Packs/Day [...] Telephone Encounter - Katt Stringer RN - 05/29/2020 0833 EST Talked with Arabella and she had already contacted her PCP and gotten the diflucan and yeast infectionis resolved. * Telephone Encounter - Katt Stringer RN - 05/27/[address] Vega reply to patient with understanding expressed. She had already gotten her flu shot and didn't hold xeljanz. * Telephone Encounter - Katt Stringer RN - 05/01/2020 1057 EDT Relayed information about OK for flu shot with xeljanz with understanding expressed. Arabella says that she has a vaginal yeast infection due to the recent course of prednisone and asked if you would prescribe a one time dose of diflucan as that has worked well in the past for her. * Telephone Encounter - Venecia Vega MD - 05/01/2020 0546 EDT No changes in dosing schedule. ONly applies to Methotrexate therapy at this time * Telephone Encounter - Katt Stringer RN - 04/30/2020 0956 EDT Any special instructions re: flu shot while taking xeljanz? * Telephone Encounter - Allison Florentino - 04/30/2020 0938 EDT Patient called to ask if it ok if is safe to get a flu shot while taking Xeljanz? Please call patient patient back when possible at [phone]. Thanks. documented in this encounter Plan of Treatment Upcoming Encounters Date Type Department Care Team (Late st Contact Info) Description 03/23/2024 11:15 EDT [facility] Rheumatology [address] [place], [place] [phone] Venecia Vega MD [address] [facility] [address] [place] [phone] documented as of this encounter Visit Diagnoses Not on filedocumented in this encounter
--- OUTSIDE RECORDS SUMMARY | 2024-03-14 17:59 | XMS_ITS | Encounter Summary ---
Author Organization [facility] Address [address] [place] [address] Care Team Providers Care Barrel Raiser Helper Name Role Phone Phoebe Iyer ABHAY Primary Care Provider [phone] Reason for Visit * Reason Comments Other Encounter Details Date Type Department Care Team (Late st Contact Info) Description 08/15/2020 Refill [facility] Rhe[place]ology [address] [place] [address] Venecia Vega MD [address] [facility] [address] [place] [phone] Other Social History Tobacco Use Types Packs/Day [...] te hydrOXYchloroQUINE (PLAQUENIL) 200 mg tabletIndications:Spondylo arthropathy TAKE ONE TABLET BY MOUTH ONE TIME DAILY 90 Tab 08/16/2020 11/11/2020 documented in this encounter Miscellaneous Notes * Telephone Encounter - Cande Young RN - 08/16/2020 0834 EST Last visit note reviewed and follow up noted. Refill sent as noted. 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 02/21/2020 08/16/2020 documented as of this encounter Care Teams Barrel Raiser Helper Relationship Specialty Start Date End Date Phoebe Iyer FNP PCP - General 07/09/20 11/20/21 documented as of this encounter
--- OUTSIDE RECORDS SUMMARY | 2024-03-14 17:59 | XMS_ITS | Encounter Summary ---
Author Organization [facility] Address [address] [place] [address] Care Team Providers Care Wrapper Hand Name Role Phone Phoebe Iyer ABHAY Primary Care Provider [phone] Reason for Visit * Reason Onset Date Comments Prior Auth, Medication 10/18/2020 Encounter Details Date Type Department Care Team (Late st Contact Info) Description 10/18/2020 Telephone [facility] Rhe[place] [address] [place], [place] [phone] Venecia Vega MD [address] [facility] [address] [place] [address] Prior Auth, Medication Social History [...] encounter Miscellaneous Notes * Telephone Encounter - Germaine Irby RN - 10/18/2020 1352 EDT PA request for Xeljanz sent to PA team. * Telephone Encounter - Natali Flores - 10/18/2020 1210 EDT Patient states Xeljanz needs prior auth documented in this encounter Plan of Treatment Upcoming Encounters Date Type Department Care Team (Late st Contact Info) Description 03/23/2024 11:15 EDT Telemedicine [facility] Rheumatology [address] [place] [address] Venecia Vega MD [address] [place] [address] [address] [place] [phone] documented as of this encounter Visit Diagnoses Not on filedocumented in this encounter Care Teams Wrapper Hand Relationship Specialty Start Date End Date Phoebe Iyer FNP PCP - General 07/09/20 11/20/21 documented as of this encounter
--- OUTSIDE RECORDS SUMMARY | 2024-03-14 17:59 | XMS_ITS | Encounter Summary ---
Author Organization [facility] Address [address] [place] [address] Care Team Providers Care Size Worker Name Role Phone Serafin Saucedo MD Primary Care Provider [phone] Encounter Details Date Type Department Care Team (Latest Contact Info) Description 02/08/2020 Travel Social History Tobacco Use Types Packs/Day [...] Contact Info) Description 03/23/2024 11:15 EDT Telemedicine [facility] [place] [address] [place], [place] [phone] Venecia Vega MD [address] [facility] [address] [place] [phone] documented as of this encounter Visit Diagnoses Not on filedocumented in this encounter Care Teams Size Worker Relationship Specialty Start Date End Date Serafin Saucedo MD [address] [place] [phone] PCP - General 02/13/19 04/25/20 documented as of this encounter
--- OUTSIDE RECORDS SUMMARY | 2024-03-14 17:59 | XMS_ITS | Encounter Summary ---
Author Organization [facility] Address [address] [place] [address] Care Team Providers Care Billet Examiner Name Role Phone Serafin Saucedo MD Primary Care Provider [phone] Reason for Visit * Reason Onset Date Comments Appointment Related 03/26/2020 Encounter Details Date Type Department Care Team (Late st Contact Info) Description 03/26/2020 Telephone [facility] [address] [place] [address] Milton Buenrostro MD [address] [facility] [address] [place] [address] Appointment Related Social History Tobacco Use Types [...] encounter Miscellaneous Notes * Telephone Encounter - Aziza Agarwal - 03/27/2020 1004 EDT Patient returned a call to reschedule her appointment. Cortney was not available to schedule at the time of the call, but states she will call the patient back to schedule. Patient states she will be out of service until 11:00am, but it is okay to leave a message for her. * Telephone Encounter - Aziza Agarwal - 03/26/2020 5394 EDT Patient needs to reschedule her appointment on 03/28. She has a conflict with that day. She has to take her son for braces ( which was unfortunately scheduled on the same day). She states he has already had to reschedule and she doesn't want to put it off further. Please call her at [phone] documented in this encounter Plan of Treatment Upcoming Encounters Date Type Department Care Team (Late st Contact Info) Description 03/23/2024 11:15 EDT Telemedicine [facility] Rheumatology [address] [place] [address] Venecia Vega MD [address] [facility] [address] [place] [phone] documented as of this encounter Visit Diagnoses Not on filedocumented in this encounter Care Teams Billet Examiner Relationship Specialty Start Date End Date Serafin Saucedo MD [address] [place] [phone] PCP - General 02/13/19 04/25/20 documented as of this encounter
--- OUTSIDE RECORDS SUMMARY | 2024-03-14 17:59 | XMS_ITS | Encounter Summary ---
Author Organization [facility] Address [address] [place] [address] Care Team Providers Care Division Toll Wire Chief Name Role Phone Phoebe Iyer ABHAY Primary Care Provider Reason for Visit * Reason Comments Medication Management doing well Encounter Details Date Type Department Care Team (Latest Contact Info) Description 07/10/2020 9:[address] [facility] Rheumatology [address] [place] [address] Venecia Vega MD [address] [facility] [address] [place] [address] Spondyloarthropathy (Primary Dx); Encounter for long-term (current) use of medications Social History Tobacco Use Types Packs/Day [...] - Inhaled Oxygen Concentration - - Weight 122 kg (269 lb) 07/10/2020 0955 EST Height - - Body Mass Index 42.13 02/14/2020 0823 EDT documented in this encounter Functional Status [...] * Patient Instructions* Venecia Vega MD - 07/10/2020 9:45 EST Continue current meds, labs just prior to next appointment in 4 months call if problems. documented in this encounter Progress Notes * Venecia Vega MD - 07/10/2020 0945 EST [facility] Video Visit Today's visit was provided through [...] enbrel (did not tolerate) ??Arava (did not tolerate?)2018 remicade infusions effective but stopped due to severe headaches lasting a week after infusions. ??In 2018 stopped allopathic care to pursue naturopathic care. Rx [id number] anti biotics/supplements prednisone from [place] . PT not effective. Re-eval rheum 06/22. Restart prednisone SSZ 06/22 added plaquenil. ??Added Xeljanz November 2019 with good result ?? FHX sister has Crohn's ( aunt inflammatory arthritis) HPI: Patient is doing well. Had an illness recently missed a couple of days of tofacitinib. Arthritis began to flareup so she restarted. Knees are doing well. Gained some weight, planning to do an exercise program. Wants to lose several pounds to reduce strain on knees. Ankles are getting better. PT was quite helpful she completed that and is now on a home program. Denies any other health changes. Mood is generally good. Very cautious about getting sick, for young children. Has not had any known exposure to COVID-19. Denies any stomach upset. Occasional ibuprofen use but no prednisone for many months at this time. Overall she is doing quite well from the standpoint of her arthritis and wishes to continue her tofacitinib therapy. Morning stiffness: Less than an hour Swollen joints: Knees a bit stiff but not visibly swollen like in the past. Sore joints tender joints knees ankles I have reviewed patient's tobacco history: reports that she has never smoked. She has never used smokeless tobacco. I have reviewed current problem list and current medications. ROS: ROS See HPI Objective: Examination: Home Vitals: There were no vitals taken for this visit. Pertinent exam findings: appears well, neck supple, non-labored breathing, no wheeze, no rash on visible skin and mood and affect appropriate Data reviewed with patient: most recent labs reviewed: CBC shows mild elevation in WBC otherwise unremarkable. Liver function tests are pending. These tests were drawn on 07/09/2020 at [facility]. and [facility]: Previous laboratory notes, progress notes, imaging were reviewed Assessment & Plan Problem List Items Addressed This Visit None Visit Diagnoses Spondyloarthropathy - Primary Does well with Xeljanz therapy. No adverse effects. Tests are pending at this time. Remains off prednisone. No concernsAlso taking hydroxychloroquine Encounter for long-term (current) use of medications Taking Covid precautions. LFTs pending. No DVTs reported. No hospitalizations A total of 30 minutes was spent on this encounter on the day of this encounter. 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
--- OUTSIDE RECORDS SUMMARY | 2024-03-14 17:59 | XMS_ITS | Encounter Summary ---
Author Organization [facility] Address [address] [place] [address] Care Team Providers Care Box Shook Patcher Name Role Phone Phoebe Iyer ABHAY Primary Care Provider [phone] Reason for Visit * Reason Onset Date Comments Medications Refill 11/11/2020 Faxed refill request for HCQ from [facility]. Encounter Details Date Type Department Care Team (Late st Contact Info) Description 11/11/2020 Refill [facility] Rheumatology [address] [place] [id number] Katt Stringer RN Medications Refill (Faxed refill request for HCQ from [facility].) Social History Tobacco Use Types Packs/Day Years [...] Tab by mouth daily. 90 Tab 3 11/11/2020 11/29/2020 documented in this encounter Miscellaneous Notes * Telephone Encounter - Katt Stringer RN - 11/11/2020 1521 EDT Last visit note reviewed and follow up noted. Refill sent as noted. 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
--- OUTSIDE RECORDS SUMMARY | 2024-03-14 17:59 | XMS_ITS | Encounter Summary ---
Author Organization [facility] Address [address] [place] [address] Care Team Providers Care Sleeper Cutter Name Role Phone Serafin Saucedo MD Primary Care Provider [phone] Reason for Referral * Referral (Routine/Next Available) - Closed Specialty Diagnoses / Procedures Referred By Nishant garcia Referred To Contact Diagnoses Acute right ankle pain Arlyn Curiel PA-C [address] [place] [address] Referral ID Status Reason Start Date Expiration Date V isits Requested Visits Authorized [id number] Closed Specialty Services Required 02/07/2020 1 1 Question Answer Reason for Request: Referral to [facility] as per patient request. Right ankle sprain- xray negative, can not exclude ligament injury. Reason for Visit * Reason Onset Date Comments Referral Request 02/06/2020 Encounter Details Date Type Department Care Team (Late st Contact Info) Description 02/06/[address] [facility] [address] [place], [place] [address] [facility] [address] [place] [address] Referral Request Social History Tobacco Use Types Packs/Day Years [...] encounter Miscellaneous Notes * Telephone Encounter - Justyn Avila - 02/06/2020 1052 EDT Patient called asking if she could get a referral sent to [facility]. There is a referral in her chart but is closed? documented in this encounter Plan of Treatment Upcoming Encounters Date Type Department Care Team (Late st Contact Info) Description 03/23/2024 11:15 EDT Telemedicine [facility] Rheumatology [address] [place], [place] [address] Venecia Vega MD [address] [facility] [address] [place] [phone] Scheduled Referrals Name Type Priority Associated Diagnoses Order Schedule AMB CONS/FOLLOW UP ORTHOPEDICS Outpatient Referral Routine Acute right ankle pain Ordered: 02/07/2020 documented as of this encounter Visit Diagnoses Diagnosis Acute right ankle pain- Primary documented in this encounter Care Teams Sleeper Cutter Relationship Specialty Start Date End Date Serafin Saucedo MD [address] [place] [address] PCP - General 02/13/19 04/25/20 documented as of this encounter
--- OUTSIDE RECORDS SUMMARY | 2024-03-14 17:59 | XMS_ITS | Encounter Summary ---
Author Organization [facility] Address [address] [place] [address] Care Team Providers Care Brake Repairer Bus Name Role Phone Serafin Saucedo MD Primary Care Provider [phone] Phoebe Iyer Primary Care Provider [phone] Rebeca Miller APRN Primary Care Provider [phone] Corine Coulter Primary Care Provider [phone] Reason for Visit * Reason Onset Date Comments Medications Refill 02/20/2020 Encounter Details Date Type Department Care Team (Late st Contact Info) Description 02/20/2020 Refill [facility] Rhe[facility]ology [address] [place] [address] Venecia Vega MD [address] [facility] [address] [place] [address] Medications Refill Social History Tobacco [...] 1 Tab by mouth daily. 90 Tab 1 02/21/2020 08/16/2020 documented in this encounter Miscellaneous Notes * Telephone Encounter - Germaine Irby RN - 02/21/2020 0849 EDTFrom: Arabella Ojeda To: Office of Venecia Vega MD Sent: 02/20/2020 20:13 EDT Subject: Medication Renewal Request Refills have been requested for the following medications: hydroxychloroquine (PLAQUENIL) 200 mg tablet [Venecia Vega MD] Preferred pharmacy: [id number] [place], [place] - [address] [facility] Medication renewals requested in this messag e routed separately: omeprazole (PRILOSEC) 20 mg capsule [Serafin Saucedo III, MD] documented in this encounter Plan of Treatment Upcoming Encounters Date Type Department Care Team (Late st Contact Info) Description 03/23/2024 11:15 EDT Telemedicine [facility] Rheumatology [address] [place], [place] [address] Venecia Vega MD [address] [facility] [address] [place] [phone] documented as of this encounter Visit Diagnoses Diagnosis 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 Reorder 11/10/2019 02/20/2020 documented as of this encounter Care Teams Brake Repairer Bus Relationship Specialty Start Date End Date Serafin Saucedo MD [address] [place] [address] PCP - General 02/13/19 04/25/20 Phoebe Iyer FNP [address] [place] [address] PCP - General 07/09/20 11/20/21 Rebeca Miller APRN [address] [place] [address] PCP - General Family Medicine - Primary Care 11/21/21 03/07/24 Corine Coulter [address] [place] [address] PCP - General Family Medicine - Primary Care 03/08/24 documented as of this encounter
--- OUTSIDE RECORDS SUMMARY | 2024-03-14 17:59 | XMS_ITS | Encounter Summary ---
Author Organization [facility] Address [address] [place] [address] Care Team Providers Care Rounder And Backer Name Role Phone Serafin Saucedo MD Primary Care Provider [phone] Reason for Referral * PT/OT/ST (Routine) - Specialty Report Received Specialty Diagnoses / Procedures Referred By Contcarl t Referred To Contact Diagnoses Sprain of right ankle, unspecified ligament, subsequent encounter Deya Lyman NP [address] [address] Referral ID Status Reason Start Date Expiration Date Visits Requested Visits Authorized [id number] Specialty Report Received Specialty Services Required 02/20/2020 1 1 Question Answer Reason for Request: right ankle sprain; high ankle sprain. please evaluate and treat Practice Site (External Referral Only): Cherri Pitt PT [facility] Reason for Visit * Reason Comments Follow-up Fracture Encounter Details Date Type Department Care Team (Late st Contact Info) Description 02/20/2020 14:00 EDT Office Visit [facility] [place] [place] Orthopedics & Sport Medicine [address], [address] [place] [address] Deya Lyman NP [address] [facility] [address] [place] [address] Sprain of right ankle, unspecified ligament, [...] of this encounter Progress Notes * Deya Lyman P, WILLY - 02/20/2020 1400 EDT PROBLEM: Right ankle sprain - DOI 02/02 SUBJECTIVE: Arabella Ojeda is a 34 y.o. female who is here today for follow up of her right ankle inversion injury which occurred over 2 weeks ago. She was seen on 02/07 at which time concern was for ATFL and CFL sprain as well as high ankle sprain. Plan was to continue in a walking boot and start some gentle ROM as tolerated. Since last visit she has been able to wean off crutches. She is able to weight bear but does still have significant pain. She is using her walking boot multimedia technician. The past medical, family and social history have been reviewed in the patient chart. OBJECTIVE: There were no vitals taken for this visit. General appearance: Well-developed, well nourished, no acute distress. pleasant and cooperative. HEENT: normocephalic, atraumatic Lungs: no increased work of breathing Skin: clean, dry and intact Msk: Exam of the right ankle with mild swelling over lateral ankle, ecchymosis has resolved. Skin is intact. Able to dorsiflex and plantarflex ankle against resistance. Good perfusion distally and endorses intact sensation. Tender over ATFL, CFL and slightly tender over tip of lateral malleolus. Tender over medial malleolus and anterior joint line. Discomfort with squeeze test. DIAGNOSTICS: Radiographs of the right ankle with gravity stress view were obtained today and reviewed by me. Significant soft tissue swelling medially and laterally. Ankle mortise remains congruent. ASSESSMENT: 34yoF with right ankle injury >2 weeks ago. Exam consistent with ATFL and CFL sprainas well as high ankle sprain. Ankle mortise remains congruent. She is slowly improving and is now able to walk without crutches. PLAN: Would recommend formal PT eval for strengthing, ROM and proprioception and patient agreeable to this. Referral placed to PT near her house in [place]. Continue with walking boot, OK to weight bear as tolerated. Follow up in 4 weeks for reevaluation. Arabella is pleased with the plan. This note was prepared using voice recognition software and the EMR. There may be inadvertent errors and omissions. Deya Lyman APRN 02/20/2020 documented in this encounter Plan of Treatment Upcoming Encounters Date Type Department Care Team (Late st Contact Info) Description 03/23/2024 11:15 EDT Telemedicine [facility] Rheumatology [address] [place], [place] [phone] Venecia Vega MD [address] [facility] [address] [place] [address] Scheduled Orders Name Type Priority Associated Diagnoses Orde r Schedule XR ANKLE RIGHT 3 OR MORE VIEWS Imaging Routine Sprain of right ankle, unspecified ligament, subsequent encounter Ordered: 02/20/2020 Scheduled Referrals Name Type Priority Associated Diagnoses Orde r Schedule AMB CONS/FOLLOW UP PHYSICAL THERAPY Outpatient Referral Routine Sprain of right ankle, unspecified ligament, subsequent encounter Ordered: 02/20/2020 documented as of this encounter Procedures Procedure Name Priority Date/Time Associated Diagnosis Comments XR ANKLE RIGHT 3 OR MORE VIEWS 02/20/2020 14:35 EDT documented in this encounter Results * XR ANKLE RIGHT 3 OR MORE VIEWS (02/20/2020 14:35 EDT) Anatomical Region Laterality Modality Lower Extremities, Ankle Right Compute d Radiography 02/20/2020 14:3 2 EDT Narrative 02/20/2020 14:35 EDT ? EXAM: RADIOLOGY/ANKLE RIGHT 3 + VIEW ?EX. D/ (1420) ? CLINICAL INFORMATION: ? S99.912D, INJURY OF LEFT ANKLE, WITH GRAVITY STRESS ? INDICATION: S99.912D, INJURY OF LEFT ANKLE, WITH GRAVITY STRESS 2 ? WEEK FOLLOWUP RIGHT ANKLE INJURY ? TECHNIQUE: 3 views right ankle. ? COMPARISON: 02/07/2016. ? FINDINGS: Diffuse ankle soft tissue edema is seen. There is a small ? bony fragment at the tip of the lateral malleolus. There is also a ? tiny fragment at the tip of the medial malleolus. The talar dome is ? unremarkable. ? IMPRESSION: ? 1. Diffuse ankle soft tissue edema with tiny bony fragments at the ? tip of the medial and lateral malleolus, likely reflecting a avulsion ? fractures. ? REPORT SIGNED IN OTHER VENDOR SYSTEM 02/20/2020 ?Reported By: Bong Mead MD ? CC: ? Transcribed Date/Time: 02/20/2020 (3640) ? Equipment Service Engineer: ? Printed Date/Time: 02/20/2020 (8135) ? PAGE 1 ? Signed Report ? Procedure Note Bong Mead MD - 02/20/2020 EXAM: RADIOLOGY/ANKLE RIGHT 3 + VIEW EX. D/ (1420) CLINICAL INFORMATION: S99.912D, INJURY OF LEFT ANKLE, WITH GRAVITY STRESS INDICATION: S99.912D, INJURY OF LEFT ANKLE, WITH GRAVITY STRESS 2 WEEK FOLLOWUP RIGHT ANKLE INJURY TECHNIQUE: 3 views right ankle. COMPARISON: 02/07/2016. FINDINGS: Diffuse ankle soft tissue edema is seen. There is a small bony fragment at the tip of the lateral malleolus. There is also a tiny fragment at the tip of the medial malleolus. The talar dome is unremarkable. IMPRESSION: 1. Diffuse ankle soft tissue edema with tiny bony fragments at the tip of the medial and lateral malleolus, likely reflecting aavulsion fractures. REPORT SIGNED IN OTHER VENDOR SYSTEM 02/20/2020 Reported By: Bong Mead MD CC: Transcribed Date/Time: 02/20/2020 (8813) Equipment Service Engineer: Printed Date/Time: 02/20/2020 (1263) PAGE 1 Signed Report Deya Lyman NP IMG DIAGNOSTIC IMAGI NG ORDERABLES documented in this encounter Visit Diagnoses Diagnosis Sprain of right ankle, unspecified ligament, subsequent encounter- Primary documented in this encounter Care Teams Rounder And Backer Relationship Specialty Start Date End Date Serafin Saucedo MD [address] [place] [phone] PCP - General 02/13/19 04/25/20 documented as of this encounter
--- OUTSIDE RECORDS SUMMARY | 2024-03-14 17:59 | XMS_ITS | Encounter Summary ---
Author Organization [facility] Address [address] [place] [address] Care Team Providers Care Leather Goods Maker Name Role Phone Serafin Saucedo MD Primary Care Provider [phone] Reason for Visit * Reason Onset Date Comments Medication Management 11/03/2019 Encounter Details Date Type Department Care Team (Late st Contact Info) Description 11/03/2019 Telephone [facility] [place] [address] [place], [place] [phone] Venecia Vega MD [address] [facility] [address] [place] [phone] Medication Management Social History Tobacco Use Types Packs/Day Years [...] Telephone Encounter - Germaine Irby RN - 11/03/2019 1312 EDT Called pt and reviewed the information below with good understanding expressed.She will continue calling pharmacies as she only contacted [facility] at this time. * Telephone Encounter - Venecia Vega MD - 11/03/2019 1259 EDT To be addressed at upcoming video visit. Very likely that other pharmacies will have it, * Telephone Encounter - Germaine Irby RN - 11/03/2019 1057 EDT Called pt.She states that [facility] cannot get Sulfasalazine at the moment.Pt will call other pharmacies to see if they stock it but she would like to know if she can switch to another medication. Please advise, Thank you * Telephone Encounter - Cortney Olmedo - 11/03/2019 0922 EDT Arabella [facility] pharmacy is unable to fill her medication- she did not leave the name of med- possibly HCQ. She wants to know what alternative there is. documented in this encounter Plan of Treatment Upcoming Encounters Date Type Department Care Team (Late st Contact Info) Description 03/23/2024 11:15 EDT Telemedicine [facility] Rheumatology [address] [place] [address] Venecia Vega MD [address] [facility] [address] [place] [address] documented as of this encounter Visit Diagnoses Not on filedocumented in this encounter Care Teams Leather Goods Maker Relationship Specialty Start Date End Date Serafin Saucedo MD [address] [place] [phone] PCP - General 02/13/19 04/25/20 documented as of this encounter
--- OUTSIDE RECORDS SUMMARY | 2024-03-14 17:59 | XMS_ITS | Encounter Summary ---
Author Organization [facility] Address [address] [place] [address] Care Team Providers Care Science Technicians Name Role Phone Serafin Saucedo MD Primary Care Provider [phone] Reason for Visit * Reason Comments Follow-up Inflammatory arthrit is; things feel good as far as arthritis. Xeljanz really helping. Got a severe ankle sprain 2 weeks ago so that is painful at level 4. Encounter Details Date Type Department Care Team (Latest Contact Info) Description 02/14/2020 9:45 EDT Telemedicine [facility] Rheumatology [address] [place] [address] Venecia Vega MD [address] [facility] [address] [place] [phone] Spondyloarthropathy (Primary Dx); High risk medication use Social [...] 8:15 EDT documented as of this encounter Last Filed Vital Signs Vital Sign Reading Time Taken Comments Blood Pressure - - Pulse - - Temperature - - Respiratory Rate - - Oxygen Saturation - - Inhaled Oxygen Concentration - - Weight 118.4 kg (261 lb) 02/14/2020822 EDT Height 170.2 cm (5' 7) 02/14/2020822 EDT Body Mass Index 40.88 02/14/2020822 EDT documented in this encounter Functional Status [...] * Patient Instructions* Venecia Vega MD - 02/14/2020 9:45 EDT Naproxen to continue Labs this week or next Continue plaquenil and xeljanz Flu shot documented in this encounter Progress Notes * Venecia Vega MD - 02/14/2020 0945 EDT [facility] [...] auxiliary staff: yes. Subjective: Chief Complaint(s): Follow-up (Inflammatory arthritis; things feel good as far as arthritis. Xeljanz really helping. Got a severe ankle sprain 2 weeks ago so that is painful at level 4.) HPI: Patient reports she had a severe ankle sprain 2 weeks ago and is on crutches. She was taking her new dog down stairs when she tripped over it. Was unable to bear weight and was seen in orthopedics. No fracture. Intense bruising but pain gradually improving. Fortunately the rest of her arthritis is doing well. Her knee effusions have completely resolved and range of motion has been good. She denies any adverse effects from Xeljanz. No longer on sulfasalazine due to lack of availability, however, does not think that the medication being discontinued as had any adverse effect Continues to tolerate hydroxychloroquine. Denies fever chills sweats. 4 small children who will be schooling at 3 different schools. May be looking into schooling at home. Aware of need for social distancing and masking and able to comply. No GI upset, no rash no other concern I have reviewed patient's tobacco history: reports that she has never smoked. She has never used smokeless tobacco. I have reviewed current problem list and current medications. ROS: ROS Objective: Examination: Home Vitals: Ht 170.2 cm (67) Wt (!) 118.4 kg (261 lb) BMI 40.88 kg/m?? Pertinent exam findings: appears well. Fluent speech, No skin rashes. Data reviewed with patient: most recent labs reviewed, most recent imaging reviewed and review and summarization of medical records through [facility] Assessment & Plan: 1. Spondyloarthropathy COMPLETE BLOOD COUNT AND DIFFERENTIAL COMPREHENSIVE METABOLIC PANEL (CMP) Continue Plaquenil and Xeljanz. Labs due. Drawn next week. Excellent improvement in symptom resolution of effusions and knees 2. High risk medication use COMPLETE BLOOD COUNT AND DIFFERENTIAL COMPREHENSIVE METABOLIC PANEL (CMP) Laboratory monitoring, if exposed to COVID-19 or other virus we will stop medication Recommend twice daily dosing with Xeljanz. Unclear whether taking both pi A total of 24 minutes was spent on this encounter on the day of this encounter. The following individuals and their role did participate in today's encounter visit: Provider: Venecia Vega MD Patient Her 3 year old son Vinod was also present. documented in this encounter Plan of Treatment Upcoming Encounters Date Type Department Care Team (Late st Contact Info) Description 03/23/2024 11:15 EDT Telemedicine [facility] Rheumatology [address] [place] [address] Venecia Vega MD [address] [facility] [address] [place] [phone] documented as of this encounter Visit Diagnoses Diagnosis Spondyloarthropathy- Primary Spondylosis of unspecified site without mention of myelopathy High risk medication use Encounter for long-term (current) use of other medications documented in this encounter Discontinued Medications Medication Sig Discontinue Reason Start Date End Da te amoxicillin (AMOXIL) 500 mg capsule Take 1 Cap by mouth 3 times daily. Therapy completed 01/17/2020 02/14/2020 sulfaSALAzine (AZULFIDINE) 500 mg EC tabletIndications:Seronegativ e spondyloarthropathy Take 3 tabs in the AM and 2 tabs in the PM Therapy completed 01/03/2020 02/14/2020 documented as of this encounter Care Teams Science Technicians Relationship Specialty Start Date End Date Serafin Saucedo MD [address] [place] [phone] PCP - General 02/13/19 04/25/20 documented as of this encounter
--- OUTSIDE RECORDS SUMMARY | 2024-03-14 17:59 | XMS_ITS | Encounter Summary ---
Author Organization [facility] Address [address] [place] [address] Care Team Providers Care Avionics Supervisor Name Role Phone Serafin Saucedo MD Primary Care Provider [phone] Encounter Details Date Type Department Care Team (Late st Contact Info) Description 11/23/2019 Results Only [facility] Rheumatology [address] [place] [address] Venecia Vega MD [address] [place] [address] [place] [address] Social History Tobacco Use Types [...] Contact Info) Description 03/23/2024 11:15 EDT Telemedicine [facility] Rheumatology [address] [place] [address] Venecia Vega MD [address] [place] [address] [address] [place] [phone] documented as of this encounter Procedures Procedure Name Priority Date/Time Associated Diagnosis Comments COMPLETE BLOOD COUNT WITH DIFFERENTIAL (AUTO) Routine 11/23/2019 14:20 EDT C REACTIVE PROTEIN Routine 11/23/2019 14 :20 EDT COMPREHENSIVE METABOLIC PANEL (CMP) Routine 11/23/2019 14:20 EDT documented in this encounter Results * (ABNORMAL) C REACTIVE PROTEIN (11/23/2019 14:20 EDT) [facility] C-Reactive Protein 20.2(H) <10.0 mg/L 11/23/2019 15:17 EDT [facility] 11/23/2019 14:2 0 EDT 11/23/2019 14:20 EDT Narrative [facility] - 11/23/2019 15:17 EDT Does PT Have a Latex Allergy? NO Venecia Vega MD CHEMISTRY & BLOO D GAS ORDERABLES [facility] * (ABNORMAL) COMPREHENSIVE METABOLIC PANEL (CMP) (11/23/2019 14:20 EDT) [facility] Albumin % 4.3 3.4 - 4.9 g/dL 11/23/2019 15:17 EDT [facility] ALKALINE PHOSPHATASE - [facility] 78 38 - 126 U/L 11/23/2019 15:17 EDT [facility] BILIRUBIN TOTAL 0.4 0.2 - 1.3 mg/dL 11/23/2019 15:17 EDT [facility] BUN - [facility] 10 10 - 26 mg/dL 11/23/2019 15:17 EDT [facility] CALCIUM - [facility] 9.4 8.5 - 10.5 mg/dL 11/23/2019 15:17 [facility] Chloride 103 96 - 110 mmol/L 11/23/2019 15:17 [facility] CO2 Total 23 22 - 32 mEq/L 11/23/2019 15:17 [facility] CREATININE 0.66 0.52 - 1.04 mg/dL 11/23/2019 15:17 [facility] eGFR >60 11/23/2019 15:17 [facility] Comment: Chronic renal impairment is defined as GFR <60 Multiply result by 1.210 for patients. eGFR calculated using the IDHI-traceable MDRD Study Equation. ??(effective 05/07/2014) Anion Gap 9 0 - 18 11/23/2019 15:17 [facility] GLUCOSE - [facility] 118(H) 70 - 100 mg/dL 11/23/2019 15:17 [facility] Potassium 4.2 3.5 - 5.0 mEq/L 11/23/2019 15:17 [facility] Sodium 135(L) 136 - 145 mEq/L 11/23/2019 15:17 [facility] TOTAL PROTEIN - [facility] 7.5 6.2 - 8.2 gm/dL 11/23/2019 15:17 [facility] SGOT/AST - [facility] 21 14 - 36 U/L 11/23/2019 15:17 [facility] SGPT/ALT - [facility] 18 0 - 35 U/L 0 15:17 [facility] 11/23/2019 14:2 0 EDT 11/23/2019 14:20 EDT Narrative [facility] - 11/23/2019 15:17 EDT Does PT Have a Latex Allergy? NO Venecia Vega MD CHEMISTRY & BLOO D GAS ORDERABLES [facility] * (ABNORMAL) COMPLETE BLOOD COUNT WITH DIFFERENTIAL (AUTO) (11/23/2019 14:20 EDT) Gran # 7.2 2.2 - 8.85 10e3/uL 11/23/2019 14:28 [facility] BASO # - [facility] 0.07 0.01 - 0.11 10e/uL 11/23/2019 14:28 [facility] BASO % - [facility] 1 0 - 2 % 11/23/2019 14:28 [facility] EOS # - [facility] 0.51 0.03 - 0.61 10e3/ul 11/23/2019 14:28 [facility] EOS % - [facility] 4 0 - 5 % 11/23/2019 14:28 [facility] GRAN % - [facility] 54.4 40 - 80 % 11/23/2019 14:28 [facility] HEMATOCRIT - [facility] 40.8 34.9 - 44.4 % 11/23/2019 14:28 [facility] HEMOGLOBIN - [facility] 13.0 11.6 - 15.2 g/dl 11/23/2019 14:28 [facility] IG# - [facility] 0.06 0 - 0.7 10e3/uL 11/23/2019 14:28 [facility] IG% - [facility] 0.5 0 - 0.9 % 11/23/2019 14:28 [facility] LYMPH # - [facility] 4.5(H) 1.09 - 3.3 10e3/ul 11/23/2019 14:28 [facility] LYMPH% - [facility] 33.7 20 - 40 % 11/23/2019 14:28 [facility] MEAN CORPUSCULAR HGB - [facility] 28.6 26.7 - 33.3 pg 11/23/2019 14:28 [facility] MEAN CORPUSCULAR HGB CONC - [facility] 31.9(L) 32.1 - 35.9 g/dL 11/23/2019 14:28 [facility] MEAN CELL VOLUME - [facility] 89.9 81 - 98 fl 11/23/2019 14:28 [facility] MONO # - [facility] 0.9(H) 0.1 - 0.8 10e3/uL 11/23/2019 14:28 EDT [facility] MONO% - [facility] 7.0 0 - 12 % 11/23/2019 14:28 EDT [facility] PLATELET COUNT 434(H) 141 - 377 10e3/ul 11/23/2019 14:28 EDT [facility] RED BLOOD COUNT - [facility] 4.54 3.86 - 5.04 10e3/ul 11/23/2019 14:28 EDT [facility] RED CELL DISTRI WIDTH - [facility] 14.6 <14.7 % 11/23/2019 14:28 EDT [facility] WHITE BLOOD COUNT - [facility] 13.2(H) 4.0 - 12.4 10e3/ul [facility]2 0 EDT 11/23/2019 14:21 EDT Narrative [facility] - 11/23/2019 14:28 EDT Does PT Have a Latex Allergy? NO Venecia Vega MD HEMATOLOGY & PF4 ORDERABLES [facility] documented in this encounter Visit Diagnoses Not on filedocumented in this encounter Care Teams Avionics Supervisor Relationship Specialty Start Date End Date Serafin Saucedo MD [address] [place] [phone] PCP - General 02/13/19 04/25/20 documented as of this encounter
--- OUTSIDE RECORDS SUMMARY | 2024-03-14 17:59 | XMS_ITS | Encounter Summary ---
Author Organization [facility] Address [address] [place] [address] Care Team Providers Care Radiology Asst Name Role Phone Serafin Saucedo MD Primary Care Provider [phone] Reason for Visit * Reason Comments Follow-up SNSA; Both knees swo llen the last 10 days; Right>than Left.Tapered off prednisone one week ago. Intermintently hands and feet get ice cold even when hot out. Encounter Details Date Type Department Care Team (Latest Contact Info) Description 11/30/2019 13:45 EDT Telemedicine [facility] [place] [address] [place] [address] Venecia Vega MD [address] [facility] [address] [place] [address] Seronegative spondyloarthropathy (HCC-CMS) (Primary Dx); High risk medication use; Bilateral knee effusions Social History Tobacco Use Types Packs/Day Years [...] - Inhaled Oxygen Concentration - - Weight 117.5 kg (259 lb) 11/30/2019 0832 EDT Height 170.2 cm (5' 7) 11/30/2019 0832 EDT Body Mass Index 40.57 11/30/2019 0832 EDT documented in this encounter [...] * Patient Instructions* Venecia Vega MD - 11/30/2019 13:45 EDT Read about xeljanz and side effects Continue SSZ/plaquenil Labs in a month cbc, cmp RTC 5 weeks (after on xeljanz a month or more) documented in this encounter Ordered Prescriptions Prescription Sig Dispensed Refills Start Date End Da te tofacitinib (XELJANZ) 5 mg tablet Take 1 Tab by mouth 2 times daily. 60 Tab 5 12/06/2019 02/17/2021 documented in this encounter Progress Notes * Venecia Vega MD - 11/30/2019 1345 EDT [facility] [place] Visit Today's visit was provided through [...] auxiliary staff: yes. Subjective: Chief Complaint(s): Follow-up (SNSA; Both knees swollen the last 10 days; Right>than Left.Tapered off prednisone one week ago. Intermintently hands and feet get ice cold even when hot out.) Seronegative spondyloarthropathy -dx 2017 knee effusion neg serology. Sister Crohns disease. Patient no gi issues, no uveitis - teeth dark on methotrexate (stopped) Humira (did not tolerate) enbrel (did not tolerate) Arava (did not tolerate?)2018 remicade infusions effective but stopped due to severe headaches lasting a week after infusions. In 2018 stopped allopathic care to pursue naturopathic care. Rx [id number] with 15months antibiotics/supplements prednisone from [employer] . PT not effective. Re-eval rheum 06/22. Restart prednisone SSZ 06/22 added plaquenil. ?? HPI: Patient has not been doing well. Knees are very sore and swollen. Feels losing ground. Hard to sleep Tapered off of prednisone and flare happened. Continue plaquenil and ssz. Had mouth sore x1 NO skin rash. ? If other cause of her persistent knee effusions. Knee on right has effusion now, new problem. Hadusually be left knee Am stiffness of hours. Feels could tolerate injections, could give to her if had to. Worried about retirement damage to her knees. Stomach ok. Weight stable. No recent illness. I have reviewed patient's tobacco history: reports that she has never smoked. She has never used smokeless tobacco. I have reviewed current problem list and current medications. ROS: ROS See hpi. 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 No etoh no smoking Objective: Examination: Home Vitals: Ht 170.2 cm (67) Wt (!) 117.5 kg (259 lb) BMI 40.57 kg/m?? Pertinent exam findings: appears well, no wheeze, no rash on visible skin and mood and affect appropriate Data reviewed with patient: most recent labs reviewed, request for medical records at outside [facility] 34 [facility] with seronegative spondyloarthropathy. Very persistent knee effusions, now worsening arthritis despite rx ssz and plaquenil. See above for various rx tried in past and reasons they were stopped. Will pursue tofacitinib therapy for patient. Discussed side effects : hair getting thicker, infection risk, slight increase risk dvt if susceptible. No concerns voiced. Last infectious diseaselabs reviewed Assessment & Plan: 1. Seronegative spondyloarthropathy (HCC-CMS) Patient has persistent knee effusions. Benefit from tnf but had se Pursue xeljanz ER 11 mg daily repeat labs one month rtc one month Continue SSZ/plaquenil 2. High risk medication use TB screen 2017 neg Pursue xeljanz Monitoring labs up to date. 3. Bilateral knee effusions due to her spondyloarthropathy A total of 25 minutes was spent on this encounter on the day of this encounter. The following individuals and their role did participate in today's encounter visit: Provider: Venecia Vega MD Patient * Dorie Pérez - 11/30/2019 1340 EDT PA was approved for Xeljanz 5mg twice daily ( spoke with Dr Vega before I submitted it as the Xeljanz 11mg daily was denied). Please let Arabella know it was approved and send to the correct pharmacy * Pk Stringer RN - 11/30/2019 1346 EDT Rx for xeljanz sent to [facility] and patient notified. documented in this encounter Miscellaneous Notes * Addendum Note - Pk Stringer RN - 11/30/2019 1910 EDTAddended by: PK STRINGER on: 12/06/2019 16:46 Modules accepted: Orders documented in this encounter Plan of Treatment Upcoming Encounters Date Type Department Care Team (Late st Contact Info) Description 03/23/2024 11:15 EDT Telemedicine [facility] [place] [address] [place] [address] Venecia Vega MD [address] [facility] [address] [place] [phone] documented as of this encounter Visit Diagnoses Diagnosis Seronegative spondyloarthropathy- Primary Spondylosis of unspecified site without mention of myelopathy High risk medication use Encounter for long-term (current) use of other medications Bilateral knee effusions Effusion of lower leg joint documented in this encounter Discontinued Medications Medication Sig Discontinue Reason Start Date End Da te Acetylcysteine (NAC) 600 mg capsule Take 1 Cap by mouth 2 times daily. Abstraction 11/30/2019 GRAPE SEED EXTRACT ORAL Take by mouth daily. as directed Abstraction 11/30/2019 predniSONE (DELTASONE) 5 mg tablet Take 1 Tab by mouth daily. Therapy completed 10/02/2019 11/30/2019 documented as of this encounter Care Teams Radiology Asst Relationship Specialty Start Date End Date Serafin Saucedo MD [address] [place] [phone] PCP - General 02/13/19 04/25/20 documented as of this encounter
--- OUTSIDE RECORDS SUMMARY | 2024-03-14 17:59 | XMS_ITS | Encounter Summary ---
Author Organization [facility] Address [address] [place] [address] Care Team Providers Care Town Justice Name Role Phone Serafin Saucedo MD Primary Care Provider [phone] Encounter Details Date Type Department Care Team (Latest Contact Info) Description 02/20/2020 Travel Social History Tobacco Use Types Packs/Day [...] [facility] Rheumatology [address] [place], [place] [phone] Venecia Vega MD [address] [facility] [address] [place] [phone] documented as of this encounter Visit Diagnoses Not on filedocumented in this encounter Care Teams Town Justice Relationship Specialty Start Date End Date Serafin Saucedo MD [address] [place] [phone] PCP - General 02/13/19 04/25/20 documented as of this encounter
--- OUTSIDE RECORDS SUMMARY | 2024-03-14 17:59 | XMS_ITS | Encounter Summary ---
Author Organization [facility] Address [address] [place] [address] Care Team Providers Care Core Java Engineer Name Role Phone Serafin Saucedo MD Primary Care Provider [phone] Reason for Referral * Consult (Routine/Next Available) - Closed Specialty Diagnoses / Procedures Referred By Nishant garcia Referred To Contact Orthopedic Surgery Diagnoses Acute right ankle pain Arlyn Curiel PA-C [address] [place] [phone] [facility] [address], [address] [place] [address] Referral ID Status Reason Start Date Expiration Date V isits Requested Visits Authorized [id number] Closed Specialty Services Required 02/03/2020 1 1 Question Answer Reason for Request: 34yo female with right ankle sprain. Xray is negative for fracture. Ligament injury can not be excluded. Walking boot is placed. Fitted with crutches Reason for Visit * Reason Comments Ankle Injury Encounter Details Date Type Department Care Team (Late st Contact Info) Description 02/03/2020 12:45 EDT [facility] [address] [place] [address] rAlyn Curiel PA-C [address] [place] [address] Acute right ankle pain (Primary Dx) Social History Tobacco Use [...] Sign Reading Time Taken Comments Blood Pressure 120/60 02/03/2020 1254 EDT Pulse 78 02/03/2020 1254 EDT Temperature 36.7 ??C (98.1 ??F) 02/03/2020 1254 EDT Respiratory Rate 16 02/03/2020 1254 EDT Oxygen Saturation - - Inhaled [...] this encounter Patient Instructions * Patient Instructions* Arlyn Curiel PA-C - 02/03/2020 12:45 EDT Wear the walking boot as directed, but do not weight bear at this time. Use crutches for ambulation. Rest, ice and elevate. Take ibuprofen or tylenol as directed for discomfort. You will contacted ifthe official xray result reveals a fracture. Follow-up with orthopedics. documented in this encounter Progress Notes * Lucía Guerra RN - 02/03/2020 1245 EDT CC: Has the patient contacted their PCP regarding this chief complaint?n Covid Screening: Fever, chills, body aches: n Vomiting or diarrhea: n New or unusual cough, SOB: n Decrease/change in sense of taste or smell: Sore throat or headache: Have you been in close contact (less than 6 ft for more than 15 minutes) with suspected or confirmed person withn Covid-19 in past 14 days: Travel outside of [place] in last 14 days? n If yes, was it to a low risk location? Reference [facility] Travel Map to see if the location falls within a low risk area (<400 casesper million): [email or web address]-19/[email or web address]/dhohs-xkhas-qbzuxj LUCÍA GUERRA RN 02/03/20 12:45 * Arlyn Curiel PA-C - 02/03/2020 1245 EDT [facility] Chief Complaint(s): Ankle Injury HPI: This is a 34yo female who presents to reporting right ankle pain after injury earlier today. Thepatient states that she tripped over her dog and twisted her right ankle in the process. Reports pain and swelling. Unable to weight bear. No previous ankle injury in the past. Took a naprosyn after the incident. I have reviewed current problem list, current medications and allergies ROS: Review of Systems Constitutional: Negative. HENT: Negative. Respiratory: Negative. Cardiovascular: Negative. Musculoskeletal: Right ankle pain Skin: Negative. Objective: Examination: Vitals: BP 120/60 (BP Cuff Location: Left arm, BP Patient Position: Sitting, BP Cuff Sizes: Adult, large) Pulse 78 Temp 36.7 ??C (98.1 ??F) (Oral) Resp 16 Physical Exam Constitutional: She appears well-developed. HENT: Head: Normocephalic. Musculoskeletal: Examination of the right ankle reveals moderate edema. Skin integrity intact. Decreased ROM. Tenderness of the medial and lateral malleolus to palpation. Distal sensation intact. Pulses intact. No proximal tib/fib tenderness to palpation. Neurological: She is alert. Nursing note and vitals reviewed. Procedures Assessment & Plan: 1. Acute right ankle pain 34yo female with right ankle pain after injury earlier today. Xray examination is negative for obvious fracture as reviewed by myself, official read is pending. Given the concern for ligament injury a walking boot is placed and the patient is fitted with crutches for ambulation. Orthopedic referralis made. - XR ANKLE RIGHT 3 OR MORE VIEWS Questions and concerns were answered. Patient expressed understanding of plan. documented in this encounter Plan of Treatment Upcoming Encounters Date Type Department Care Team (Late st Contact Info) Description 03/23/2024 11:15 EDT Telemedicine [facility] Rheumatology [address] [place], [place] [phone] Venecia Vega MD [address] [facility] [place] [address] Scheduled Orders Name Type Priority Associated Diagnoses Orde r Schedule XR ANKLE RIGHT 3 OR MORE VIEWS Imaging Routine Acute right ankle pain Ordered: 02/03/2020 Scheduled Referrals Name Type Priority Associated Diagnoses Order Schedule AMB CONS/FOLLOW UP ORTHOPEDICS Outpatient Referral Routine Acute right ankle pain Ordered: 02/03/2020 documented as of this encounter Procedures Procedure Name Priority Date/Time Associated Diagnosis Comments XR ANKLE RIGHT 3 OR MORE VIEWS 02/03/2020 14:01 EDT documented in this encounter Results * XR ANKLE RIGHT 3 OR MORE VIEWS (02/03/2020 14:01 EDT) Anatomical Region Laterality Modality Lower Extremities, Ankle Right Compute d Radiography 02/03/2020 14:0 1 EDT Narrative 02/03/2020 14:01 EDT ? EXAM: RADIOLOGY EXPRESS CARE/EXP CARE ANK EX. D/ (1322) ? CLINICAL INFORMATION: ? M25.571 ACUTE RIGHT ANKLE PAIN ? PROCEDURE INFORMATION: ? Exam: XR Right Ankle ? Exam date and time: 02/03/2020 1:03 PM ? Age: 34 years old ? Clinical indication: Injury or trauma; Fall; Initial encounter; ? Swelling (edema); Ankle; Right; Additional info: M25.571 acute right ? ankle pain ? TECHNIQUE: ? Imaging protocol: XR Right ankle. ? Views: 3 or more views. ? COMPARISON: ? CR ANKLE OBL 04/04/2015 10:08 AM ? FINDINGS: ? Bones/joints: No acute bony injury or malalignment in the visualized ? right ankle. ? Soft tissues: Prominent lateral soft tissue swelling. ? IMPRESSION: ? Prominent lateral soft tissue swelling. ? REPORT SIGNED IN OTHER VENDOR SYSTEM 02/03/2020 ?Reported By: Austin Bundy ? CC: ? Transcribed Date/Time: 02/03/2020 (1401) ? Audio Specialist: ? Printed Date/Time: 02/03/2020 (1401) ? PAGE 1 ? Signed Report ? Procedure Note Austin Bundy MD - 02/03/2020 EXAM: RADIOLOGY EXPRESS CARE/EXP CARE ANK EX. D/ (1322) CLINICAL INFORMATION: M25.571 ACUTE RIGHT ANKLE PAIN PROCEDURE INFORMATION: Exam: XR Right Ankle Exam date and time: 02/03/2020 1:03 PM Age: 34 years old Clinical indication: Injury or trauma; Fall; Initial encounter; Swelling (edema); Ankle; Right; Additional info: M25.571 acute right ankle pain TECHNIQUE: Imaging protocol: XR Right ankle. Views: 3 or more views. COMPARISON: CR ANKLE OBL 04/04/2015 10:08 AM FINDINGS: Bones/joints: No acute bony injury or malalignment in the visualized right ankle. Soft tissues: Prominent lateral soft tissue swelling. IMPRESSION: Prominent lateral soft tissue swelling. REPORT SIGNED IN OTHER VENDOR SYSTEM 02/03/2020 Reported By: Austin Bundy CC: Transcribed Date/Time: 02/03/2020 (8511) Audio Specialist: Printed Date/Time: 02/03/2020 (5593) PAGE 1 Signed Report Arlyn Curiel PA-C IMG DIAGNOST IC IMAGING ORDERABLES documented in this encounter Visit Diagnoses Diagnosis Acute right ankle pain- Primary documented in this encounter Care Teams Core Java Engineer Relationship Specialty Start Date End Date Serafin Saucedo MD [address] [place] [phone] PCP - General 02/13/19 04/25/20 documented as of this encounter
--- OUTSIDE RECORDS SUMMARY | 2024-03-14 17:59 | XMS_ITS | Encounter Summary ---
Author Organization [facility] Address [address] [place] [address] Care Team Providers Care Farm Instructor Name Role Phone Serafin Saucedo MD Primary Care Provider [phone] Phoebe Iyer Primary Care Provider [phone] Rebeca Miller APRN Primary Care Provider [phone] Corine Coulter Primary Care Provider [phone] Reason for Visit * Reason Comments Other Encounter Details Date Type Department Care Team (Late st Contact Info) Description 11/27/2019 Refill [facility] - [address] [address] Serafin Saucedo MD [address] [place] [address] Other Social History Tobacco Use Types Packs/Day [...] TAKE ONE CAPSULE BY MOUTH DAILY NEEDED 90 Cap 2 11/28/2019 02/20/2020 documented in this encounter Plan of Treatment Upcoming Encounters Date Type Department Care Team (Late st Contact Info) Description 03/23/2024 11:15 EDT Telemedicine [facility] Rheumatology [address] [place] [address] Venecia Vega MD [address] [facility] [address] [place] [address] documented as of this encounter Visit Diagnoses Not on filedocumented in this encounter Discontinued Medications Medication Sig Discontinue Reason Start Date End Da te omeprazole (PRILOSEC) 20 mg capsule 04/12/2019 11/28/2019 documented as of this encounter Care Teams Farm Instructor Relationship Specialty Start Date End Date Serafin Saucedo MD [address] [place] [phone] PCP - General 02/13/19 04/25/20 Phoebe Iyer FNP [address] [place] [phone] PCP - General 07/09/20 11/20/21 Rebeca Miller APRN [address] [place] [address] PCP - General Family Medicine - Primary Care 11/21/21 03/07/24 Corine Coulter [address] [place] [address] PCP - General Family Medicine - Primary Care 03/08/24 documented as of this encounter
--- OUTSIDE RECORDS SUMMARY | 2024-03-14 17:59 | XMS_ITS | Encounter Summary ---
Author Organization [facility] Address [address] [place] [address] Care Team Providers Care Science And Operations Officer Name Role Phone Phoebe Iyer ABHAY Primary Care Provider [phone] Encounter Details Date Type Department Care Team (Late st Contact Info) Description 10/18/2020 Orders Only [facility] Rhe[facility]ology [address] [place], [place] [address] Germaine Irby, RN Inflammatory polyarthropathy ([facility]) (Primary Dx) Social History Tobacco Use Types [...] as of this encounter Progress Notes * Germaine Irby, RN - 10/18/2020 1347 EDT PA request for Xeljanz continuation sent to PA team. documented in this encounter Plan of Treatment Upcoming Encounters Date Type Department Care Team (Late st Contact Info) Description 03/23/2024 11:15 EDT Telemedicine [facility] Rheumatology [address] [place], [place] [address] Venecia Vega MD [address] [facility] [address] [place] [phone] documented as of this encounter Visit Diagnoses Diagnosis Inflammatory polyarthropathy ([facility])- Primary Unspecified inflammatory polyarthropathy documented in this encounter Care Teams Science And Operations Officer Relationship Specialty Start Date End Date Phoebe Iyer FNP PCP - General 07/09/20 11/20/21 documented as of this encounter
--- OUTSIDE RECORDS SUMMARY | 2024-03-14 17:59 | XMS_ITS | Encounter Summary ---
Author Organization [facility] Address [address] [place] [address] Care Team Providers Care Senior Principal Architect Name Role Phone Serafin Saucedo MD Primary Care Provider [phone] Reason for Visit * Reason Onset Date Comments Medication Management 12/29/2019 Encounter Details Date Type Department Care Team (Late st Contact Info) Description 12/29/2019 Telephone [facility] Rheumatology [address] [place] [address] Venecia Vega MD [address] [facility] [address] [place] [phone] Medication Management Social History Tobacco Use Types [...] Telephone Encounter - Germaine Irby RN - 01/03/2020 0836 EDT See other TE.Refill sent to [facility] in [place]. * Telephone Encounter - Germaine Irby RN - 01/03/2020 0835 EDT Called pt.She just found out tht [facility] in [facility] got a shipment and Rx sent to [facility] for refill. * Telephone Encounter - Germaine Irby RN - 01/02/2020 1614 EDT Called pt.She states that no pharmacies have it.Called [facility] and they have 50 tablets of the immediate release.Would need new rx with same sig. and would last the pt a little longer. OK to refill ? * Telephone Encounter - Venecia Vega MD - 01/02/2020 1321 EDT Please fill as Below with 1 year refills * Telephone Encounter - Germaine Irby RN - 01/01/2020 1522 EDT Called pt.She states that [facility] just informed they cannot get Sulfasalazine due to backorder.She will try calling other pharmacies and will let us know. Please advise on any other options, Thank you * Telephone Encounter - Allison Florentino - 01/01/2020 1450 EDT Patient called to say [facility] has told her the prescription Sulfasalazine is on back order andthey are unclear on when it will be in. Patient states she would like to know what her other options are as she is unable to get the prescription through [facility] or [facility]. Please advise [phone]. * Telephone Encounter - Germaine Irby RN - 12/29/2019 1642 EDT Called pt and she confirms that she would like her Rx for Sulfasalazine sent to [facility] on [address].Refill sent. * Telephone Encounter - Cortney Olmedo - 12/29/2019 1609 EDT [facility] - pharmacy needs sulfasalazine rx needs to be a 90 day rx fr the insurance to cover it. Please let her know once it has been sent in. Thank you documented in this encounter Plan of Treatment Upcoming Encounters Date Type Department Care Team (Late st Contact Info) Description 03/23/2024 11:15 EDT Telemedicine [facility] Rheumatology [address] [place], [place] [address] Venecia Vega MD [address] [facility] [address] [place] [phone] documented as of this encounter Visit Diagnoses Not on filedocumented in this encounter Care Teams Senior Principal Architect Relationship Specialty Start Date End Date Serafin Saucedo MD [address] [place] [phone] PCP - General 02/13/19 04/25/20 documented as of this encounter
--- OUTSIDE RECORDS SUMMARY | 2024-03-14 17:59 | XMS_ITS | Encounter Summary ---
Author Organization [facility] Address [address] [place] [address] Care Team Providers Care Drawing In Machine Tender Name Role Phone Serafin Saucedo MD Primary Care Provider [phone] Reason for Visit * Reason Comments Follow-up Pt reports inflammat ion in knees and ankles.Stopped Xeljanz 03/29 after URI and dx with pneumonia by PCP.Neg Covid.Asking when she should restart Xeljanz Encounter Details Date Type Department Care Team (Latest Contact Info) Description 04/10/2020 11:[address] [facility] Rheumatology [address] [place] [address] Venecia Vega MD [address] [facility] [address] [place] [address] Spondyloarthropathy (Primary Dx); High risk [...] 8:12 EDT documented as of this encounter Last Filed Vital Signs Vital Sign Reading Time Taken Comments Blood Pressure - - Pulse - - Temperature - - Respiratory Rate - - Oxygen Saturation - - Inhaled Oxygen Concentration - - Weight 117 kg (258 lb) 04/10/2020 0815 EDT Height - - Body Mass Index 40.41 02/14/2020 0823 EDT documented in this encounter [...] * Patient Instructions* Venecia Vega MD - 04/10/2020 11:15 EDT Donny Coker this week Call with update on resp issues in one week Agree with plan to see pcp today re respiratory issues Labs at [facility] , new order sent documented in this encounter Progress Notes * Venecia Vega MD - 04/10/2020 1115 EDT [facility] Video Visit Today's visit was provided through [...] auxiliary staff: yes. Subjective: Chief Complaint(s): Follow-up (Pt reports inflammation in knees and ankles.Stopped Xeljanz 03/29 after URI and dx with pneumonia by PCP.Neg Covid.Asking when she should restart Xeljanz) ?? Seronegative spondyloarthropathy -dx 2017 knee effusion neg serology. Sister Crohns disease. Patient no gi issues, no uveitis - teeth dark on methotrexate (stopped) Humira (did not tolerate) enbrel (did not tolerate) Arava (did not tolerate?)2018 remicade infusions effective but stopped due to severe headaches lasting a week after infusions. In 2017 stopped allopathic care to pursue naturopathic care. Rx [id number] with 15months antibiotics/supplements prednisone from [employer] OF [employer]TER[employer]ATE[employer] . PT not effective. Re-eval rheum 06/22. Restart prednisone SSZ 06/22 added plaquenil. Added Xeljanz November 2019 ?? HPI: Stopped xeljanz. PCP dx her with fevers and possible pneumonia about 2 weeks ago. Took antibiotic ?Name for 5 days. 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 Had neg covid test last week. Kids in school, not sick. Ankles and knees sore, about 2 weeks off of xeljanz at this point. Cough is moist and minimal. Feels tired. Aches uses ibuprofen or aleve for pain.. No skin rashes. Will see pcp later today. Last labs were february Had been doing well on xeljanz Still on plaquenil with no side effects. I have reviewed patient's tobacco history: reports that she has never smoked. She has never used smokeless tobacco. I have reviewed current problem list and current medications. ROS: ROS Coughing, low grade temps. Feels achy. Objective: Examination: Home Vitals: Wt (!) 117 kg (258 lb) BMI 40.41 kg/m?? Pertinent exam findings: appears well, non-labored breathing, no rash on visible skin and mood and affect appropriate Occasional cough. NO wheezes Data reviewed with patient: most recent labs reviewed and review and summarization of medical records through [facility] Assessment & Plan: 1. Spondyloarthropathy xeljanz therapy effective. 2. High risk medication use Holding xeljanz today due to recent uri ? of pneumonia Seeing pcp Will wait one more week to restart Hold Xeljanz this week, patient to contact office in approx 7 days with update on resp condition. May restart at that time New pcp, will send updated standing order to [facility]. A total of 21 minutes was spent on this encounter on the day of this encounter. The following individuals and their role did participate in today's encounter visit: Provider: Venecia Vega MD Patient documented in this encounter Plan of Treatment Upcoming Encounters Date Type Department Care Team (Late st Contact Info) Description 03/23/2024 11:15 EDT Telemedicine [facility] Rheumatology [address] [place], [place] [phone] Venecia Vega MD [address] [facility] [address] [place] [phone] documented as of this encounter Visit Diagnoses Diagnosis Spondyloarthropathy- Primary Spondylosis of unspecified site without mention of myelopathy High risk medication use Encounter for long-term (current) use of other medications documented in this encounter Historical Medications * This list may reflect changes made after this encounter. Medication Sig Dispensed Refills Start Date End Date ibuprofen (MOTRIN) 200 mg tablet Take 600 mg by mouth as needed for Pain. Takes 3 tabs twice a day. 12/12/2021 added in this encounter Care Teams Drawing In Machine Tender Relationship Specialty Start Date End Date Serafin Saucedo MD [address] [place] [phone] PCP - General 02/13/19 04/25/20 documented as of this encounter
--- OUTSIDE RECORDS SUMMARY | 2024-03-14 17:59 | XMS_ITS | Encounter Summary ---
Author Organization [facility] Address [address] [place] [address] Care Team Providers Care Steam Blocker Name Role Phone Phoebe Iyer ABHAY Primary Care Provider [phone] Encounter Details Date Type Department Care Team (Latest Contact Info) Description 09/03/2020 Orders Only [facility] [place] [address] [place], [place] [phone] Germaine Irby RN Spondyloarthropathy (Primary Dx); Encounter for long-term (current) [...] Progress Notes * Germaine Irby, RN - 09/03/2020 1052 EST Standing lab orders renewed. documented in this encounter Plan of Treatment Upcoming Encounters Date Type Department Care Team (Late st Contact Info) Description 03/23/2024 11:15 EDT Telemedicine [facility] Rheumatology [address] [place], [place] [address] Venecia Vega MD [address] [facility] [address] [place] [phone] documented as of this encounter Visit Diagnoses Diagnosis Spondyloarthropathy- Primary Spondylosis of unspecified site without mention of myelopathy Encounter for long-term (current) use of other medications documented in this encounter Care Teams Steam Blocker Relationship Specialty Start Date End Date Phoebe Iyer FNP PCP - General 07/09/20 11/20/21 documented as of this encounter
--- OUTSIDE RECORDS SUMMARY | 2024-03-14 17:59 | XMS_ITS | Encounter Summary ---
Author Organization [facility] Address [address] [place] [address] Care Team Providers Care Jinriksha Driver Name Role Phone Serafin Saucedo MD Primary Care Provider [phone] Reason for Visit * Reason Onset Date Comments Other 11/16/2019 Question/concern regarding pause in medication Encounter Details Date Type Department Care Team (Late st Contact Info) Description 11/16/2019 Telephone [facility] Rheumatology [address] [place], [place] [phone] Venecia Vega MD [address] [facility] [address] [place] [address] Other (Question/concern regarding pause in medication) Social History Tobacco Use Types Packs/Day Years [...] Telephone Encounter - Katt Stringer RN - 11/17/2019 1616 EDT No return call so closing. * Telephone Encounter - Katt Stringer RN - 11/16/2019 1343 EDT LM for patient to call my direct line. * Telephone Encounter - Venecia Vega MD - 11/16/2019 1122 EDT She should treat the yeast infection. Generally sulfasalalzine is minimally suppressive of immune system and she has done well with it soI do not recommend stopping it. Do suggest that she reduce the prednisone (believe she is on 5 mg every other day now) as this is the medication that is the likely cause of yeast infections, and is notorious for causing them) * Telephone Encounter - Germaine Irby RN - 11/16/2019 0927 EDT Called pt .She states that she was off Sulfasalzine for 4 days as the pharmacy did not have it. Sherestarted last week on 11/08/2019 and started the HCQ Wednesday11/13/2019. She has vaginal yeast that ispersisting.She has had hx of the same and tx with oral Diflucan with good results. Please advise, Thank you * Telephone Encounter - Allison Florentino - 11/16/2019 0839 EDT Patient called to say about two weeks ago she had a brief stop in medication sulfasalizine and whenshe stopped the medication the patient states she develped a yeast infection. She treated the yeastinfection and has since resumed the medication and now has another yeast infection and patient is wondering if the initial pause in stopping the sulfasalizine caused the first yeast infection and if could have anything to do with the second yeast infection and how to proceed. Patient looking for advice and would like a nurse to call back at [phone]. documented in this encounter Plan of Treatment Upcoming Encounters Date Type Department Care Team (Late st Contact Info) Description 03/23/2024 11:15 EDT Telemedicine [facility] Rheumatology [address] [place] [address] Venecia Vega MD [address] [facility] [address] [place] [phone] documented as of this encounter Visit Diagnoses Not on filedocumented in this encounter Care Teams Jinriksha Driver Relationship Specialty Start Date End Date Serafin Saucedo MD [address] [place] [phone] PCP - General 02/13/19 04/25/20 documented as of this encounter
--- OUTSIDE RECORDS SUMMARY | 2024-03-14 17:59 | XMS_ITS | Encounter Summary ---
Author Organization [facility] Address [address] [place] [address] Care Team Providers Care E Commerce Marketing Analyst Name Role Phone Serafin Saucedo MD Primary Care Provider [phone] Reason for Visit * Reason Onset Date Comments Medication Management 11/22/2019 Encounter Details Date Type Department Care Team (Late st Contact Info) Description 11/22/2019 Telephone [facility] [place] [address] [place], [place] [phone] Venecia Vega MD 130 [facility] [address] [place] [phone] Medication Management Social History Tobacco Use Types [...] Telephone Encounter - Katt Stringer RN - 11/22/2019 [address] Vega' reply with understanding expressed. * Telephone Encounter - Katt Stringer RN - 11/22/2019 1629 EDT Arabella developed a sore on the roof of her mouth a couple of days ago and it is painful. She is afraid she is going to get more. She has been rinsing with warm salt water. * Telephone Encounter - Cortney Olmedo - 11/22/2019 1418 EDT Recently started sulfasalzine, question about poss side effect documented in this encounter Plan of Treatment Upcoming Encounters Date Type Department Care Team (Late st Contact Info) Description 03/23/2024 11:15 EDT Telemedicine [facility] Rheumatology [address] [place], [place] [phone] Venecia Vega MD [address] [facility] [place] [phone] documented as of this encounter Visit Diagnoses Not on filedocumented in this encounter Care Teams E Commerce Marketing Analyst Relationship Specialty Start Date End Date Serafin Saucedo MD [address] [place] [phone] PCP - General 02/13/19 04/25/20 documented as of this encounter
--- OUTSIDE RECORDS SUMMARY | 2024-03-14 17:59 | XMS_ITS | Encounter Summary ---
Author Organization [facility] Address [address] [place] [address] Care Team Providers Care Primer Press Operator Name Role Phone Phoebe Iyer ABHAY Primary Care Provider [phone] Reason for Visit * Reason Comments Follow-up Inflammatory arthrit is. Doing well, denies any concerns. Encounter Details Date Type Department Care Team (Latest Contact Info) Description 11/06/2020 9:45 EDT Telemedicine [facility] Rheumatology [address] [place] [address] Venecia Vega MD [address] [facility] [place] [phone] Seronegative spondyloarthropathy (Primary Dx); Bilateral knee effusions; Encounter for long-term (current) use of other [...] - Inhaled Oxygen Concentration - - Weight 115.7 kg (255 lb) 11/06/2020 0820 EDT Height - - Body Mass Index 39.94 02/14/2020 0823 EDT documented in this encounter [...] Progress Notes * Venecia Vega MD - 11/06/2020 0945 EDT [facility] Video Visit Today's visit was provided through [...] allopathic care to pursue naturopathic care. Rx [id number] anti biotics/supplements prednisone from [place] . PT not effective. Re-eval rheum 06/22. Restart prednisone SSZ 06/22 added plaquenil. ??Added Xeljanz November 2019 with good result ?? FHX sister has Crohn's ( aunt inflammatory arthritis) HPI: Patient is doing well. No side effects from medications. Received both doses of COVID-19 vaccination. Her children have allergies. Numerous tests for COVID-19 have ensued. All been negative. Knee sometimes feels sore if she is very active. No rashes. Mood is good. Denies any skin concerns.No blood clotting issues. No recent infections. Feels positive about benefits of meds. No ankle or other joint pain reported. I have reviewed patient's tobacco history: reports that she has never smoked. She has never used smokeless tobacco. I have reviewed current problem list and current medications. ROS: ROS See HPI Objective: Examination: Home Vitals: Wt (!) 115.7 kg (255 lb) BMI 39.94 kg/m?? Pertinent exam findings: appears well, neck supple, non-labored breathing, no wheeze, no rash on visible skin and mood and affect appropriate Data reviewed with patient: most recent labs reviewed: CBC shows mild elevation in WBC otherwise unremarkable. Liver function tests are pending. These tests were drawn on 07/09/2020 at [facility]. and review and summarization of medical records through [facility], summary: Previous laboratory notes, progress notes, imaging were reviewed Assessment & Plan Patient is a 35-year-old woman with a history of seronegative spondyloarthropathy and peripheral arthritis -Tolerates deficit neb 5 mg twice daily -Reviewed side effects of med including increased risk of DVT/blood clot, infection -Has completed COVID-19 vaccination -Encourage vaccination of all eligible household members to reduce risk -Due for CBC, CMP sometime in January -Last labs included CBC and CRP in September. High risk medication -CBC, CMP advised -Call if any flareups. Problem List Items Addressed This Visit Neurological Seronegative spondyloarthropathy - Primary Other Visit Diagnoses Bilateral knee effusions Encounter for long-term (current) use of other medications The following individuals and their role did participate in today's encounter visit: Provider: Venecia Vega MD Patient documented in this encounter Plan of Treatment Upcoming Encounters Date Type Department Care Team (Late st Contact Info) Description 03/23/2024 11:15 EDT Telemedicine [facility] Rheumatology [address] [place], [place] [phone] Venecia Vega MD [address] [facility] [address] [place] [phone] documented as of this encounter Visit Diagnoses Diagnosis Seronegative spondyloarthropathy- Primary Spondylosis of unspecified site without mention of myelopathy Bilateral knee effusions Effusion of lower leg joint Encounter for long-term (current) use of other medications documented in this encounter Discontinued Medications Medication Sig Discontinue Reason Start Date End Da te predniSONE (DELTASONE) 20 mg tablet TAKE 2 TABLETS BY MOUTH FOR 5 DAYS THEN STOP Therapy completed 09/02/2020 11/06/2020 documented as of this encounter Historical Medications * This list may reflect changes made after this encounter. Medication Sig Dispensed Refills Start Date End Date predniSONE (DELTASONE) 20 mg tablet TAKE 2 TABLETS BY MOUTH FOR 5 DAYS THEN STOP 09/02/2020 11/06/2020 ondansetron (ZOFRAN) 8 mg tablet Take 8 mg by mouth every 8 hours as needed. 09/02/2020 02/06/2021 added in this encounter Care Teams Primer Press Operator Relationship Specialty Start Date End Date Phoebe Iyer FNP PCP - General 07/09/20 11/20/21 documented as of this encounter
--- OUTSIDE RECORDS SUMMARY | 2024-03-14 17:59 | XMS_ITS | Encounter Summary ---
Author Organization [facility] Address [address] [place] [address] Care Team Providers Care Budget Clerk Name Role Phone Serafin Saucedo MD Primary Care Provider [phone] Reason for Visit * Reason Onset Date Comments Other 11/16/2019 yeast infection Encounter Details Date Type Department Care Team ([facility] st Contact Info) Description 11/16/2019 Telephone [facility] - [place] [address] [place], [place] [address] Serafin Saucedo MD [address] [place] [phone] Other (yeast infection) Social History Tobacco Use Types Packs/Day Years [...] mouth once for 1 day. 1 Tab 1 11/16/2019 11/17/2019 documented in this encounter Miscellaneous Notes * Telephone Encounter - Lucía Moreno RN - 11/16/2019 1508 EDT Diflucan escribed. * Telephone Encounter - Casandra Murray - 11/16/2019 1452 EDT Pt has a yeast infection caused by the the prednisone and Dr Vega suggested she call her pcp for ascript. Pt is requesting the pill for a yeast infection documented in this encounter Plan of Treatment Upcoming Encounters Date Type Department Care Team (Late st Contact Info) Description 03/23/2024 11:15 EDT Telemedicine [facility] Rheumatology [address] [place] [phone] Venecia Vega MD [address] [place] [address] [address] [place] [phone] documented as of this encounter Visit Diagnoses Not on filedocumented in this encounter Care Teams Budget Clerk Relationship Specialty Start Date End Date Serafin Saucedo MD [address] [place] [phone] PCP - General 02/13/19 04/25/20 documented as of this encounter
--- OUTSIDE RECORDS SUMMARY | 2024-03-14 18:00 | XMS_ITS | Encounter Summary ---
Author Organization [facility] Address [address] [place] [address] Care Team Providers Care Infusion Rn Name Role Phone Serafin Saucedo MD Primary Care Provider [phone] Reason for Visit * Reason Onset Date Comments Medication Problem 05/19/2019 Patient calll ed - medication not helping Encounter Details Date Type Department Care Team (Late st Contact Info) Description 05/19/2019 Telephone [facility] [address] [phone] Yolanda Clifford MD [address] [facility] [address] [place] [address] Medication Problem (Patient callled - medication not helping) Social History Tobacco Use Types Packs/Day Years Used Date Smoking Tobacco: Never Smokeless Tobacco: Never Alcohol Use Standard Drinks/Week Comments Not Currently 0 (1 standard drink = 0.6 oz pur e alcohol) Sex and Gender Information Value Date Recorded Sex Assigned at Not on file Gender Identity Female 07/04/2019 11:12 EST Sexual Orientation Not on file documented as of this encounter Ordered Prescriptions Prescription Sig Dispensed Refills Start Date End Da te amoxicillin-clavulanate (AUGMENTIN) 875-125 mg per tablet Take 1 Tab by mouth 2 times daily for 7 days. 14 Tab 05/20/2019 05/27/2019 documented in this encounter Miscellaneous Notes * Telephone Encounter - Jessy Templeton - 05/20/2019 1809 EST Spoke to pt - she confirmed that initial provider had advised her to call for a rx of Augmentin if the amoxicillin did not improve things by end of the week. She is aware Augmentin was sent to pharmacy and we be re-eval if the Augmentin does not improve things. * Telephone Encounter - Joanna Madera MD - 05/20/2019 1801 EST Reviewed chart. It appears this patient was tx with amoxicillin and that she's requesting augmentininstead. Will send in rx. Please let her know, and notify me if there were other concerns, otherwise OK to address encounter, thanks. * Telephone Encounter - Umm Leslie RN - 05/19/2019 1706 EST Called pt. She stated she if feeling a little bit better, but ears continue to hurt when laying down and if she does not take Tylenol. Pt denies fever. Pt requesting Augmentin since she has not improved. documented in this encounter Plan of Treatment Upcoming Encounters Date Type Department Care Team (Late st Contact Info) Description 03/23/2024 11:15 EDT Telemedicine [facility] Rheumatology [address] [place] [phone] Venecia Vega MD [address] [place] [address] [place] [phone] documented as of this encounter Visit Diagnoses Not on filedocumented in this encounter Discontinued Medications Medication Sig Discontinue Reason Start Date End Da te amoxicillin (AMOXIL) 875 mg tabletIndications:Recurre nt acute serous otitis media of both ears Take 1 Tab by mouth 2 times daily for 7 days. Alternate therapy 05/15/2019 05/20/2019 documented as of this encounter Care Teams Infusion Rn Relationship Specialty Start Date End Date Serafin Saucedo MD [address] [place] [phone] PCP - General 02/13/19 04/25/20 documented as of this encounter
--- OUTSIDE RECORDS SUMMARY | 2024-03-14 18:00 | XMS_ITS | Encounter Summary ---
Author Organization [facility] Address [address] [place] [address] Care Team Providers Care Program Clinician Name Role Phone Serafin Saucedo MD Primary Care Provider [phone] Reason for Visit * Reason Onset Date Comments Medication Management 10/12/2019 HCQ not in stock Encounter Details Date Type Department Care Team (Late st Contact Info) Description 10/12/2019 Telephone [facility] Rheumatology [address] [place] [address] Venecia Vega MD [address] [facility] [address] [place] [phone] Medication Management (HCQ not in stock) Social History Tobacco Use Types Packs/Day Years [...] AM and 2 tabs in the PM 150 Tab 5 10/13/2019 10/16/2019 documented in this encounter Miscellaneous Notes * Telephone Encounter - Katt Stringer RN - 10/13/[address] Vega SSZ instructions on Arabella's VM and sent dose increase Rx to [facility]. * Telephone Encounter - Katt Stringer RN - 10/13/[address] Vega' reply with Arabella. She can't remember why she stopped taking MTX so is afraid she won't tolerate it. She is asking which one you think would be more effective for her, increasing the SSZ or adding MTX? * Telephone Encounter - Katt Stringer RN - 10/13/2019 1034 EDT LVM for Arabella to call my direct line. * Telephone Encounter - Katt Stringer RN - 10/12/2019 1552 EDT The pharmacist at [facility] says that he won't be able to get anymore HCQ after his current limited supply is gone. Arabella told him that HCQ is relatively new for her. He is asking if you think he should fill it for a 7 day supply if he won't be able to get anymore after that? * Telephone Encounter - Allison Florentino - 10/12/2019 1510 EDT Pharmacy called to say that they only have a very limited supply of Hydroxychloroquine in stock andare not able to fill the full prescription of Hydroxychloroquine prescribed by Dr. Vega as they currently only have about 30 tablets available and unsure of when they are getting more. Pharmacy alsostated they need to confirm diagnosis. The pharmacy teacher is looking for a call back to discuss these concerns and states the best number to reach the pharmacy is [phone]. documented in this encounter Plan of Treatment Upcoming Encounters Date Type Department Care Team (Late st Contact Info) Description 03/23/2024 11:15 EDT Telemedicine [facility] Rheumatology [address] [place] [address] Venecia Vega MD [address] [facility] [address] [place] [phone] documented as of this encounter Visit Diagnoses Diagnosis Seronegative spondyloarthropathy- Primary Spondylosis of unspecified site without mention of myelopathy documented in this encounter Discontinued Medications Medication Sig Discontinue Reason Start Date End Da te sulfaSALAzine (AZULFIDINE) 500 mg EC tabletIndications:Seronegativ e spondyloarthropathy Take 2 Tabs by mouth 2 times daily. Reorder 10/02/2019 10/13/2019 documented as of this encounter Care Teams Program Clinician Relationship Specialty Start Date End Date Serafin Saucedo MD [address] [place] [phone] PCP - General 02/13/19 04/25/20 documented as of this encounter
--- OUTSIDE RECORDS SUMMARY | 2024-03-14 18:00 | XMS_ITS | Encounter Summary ---
Author Organization [facility] Address [address] [place] [address] Care Team Providers Care Disintegrator Feeder Name Role Phone Serafin Saucedo MD Primary Care Provider [phone] Reason for Visit * Reason Onset Date Comments Medication Management 08/24/2019 Encounter Details Date Type Department Care Team (Late st Contact Info) Description 08/24/2019 Telephone [facility] Rheumatology [address] [place] [address] Venecia Vega MD [address] [facility] [address] [place] [phone] Medication Management Social History Tobacco Use Types [...] Telephone Encounter - Katt Stringer RN - 08/24/[address] Vega' reply to Arabella with understanding expressed. * Telephone Encounter - Venecia Vega MD - 08/24/2019 1546 EST This is not a worrisome side effect. Normal and expected with sulfasalazine. Safe to continue the medication. * Telephone Encounter - Katt Stringer RN - 08/24/2019 1540 EST Arabella says that she was told that her urine could turn bright yellow with the SSZ and it has and this doesn't concern her. She has noticed yesterday and today that when she blows her nose, the mucousis very bright yellowish orange and if it gets on her skin, it stains the skin yellow and doesn't come off, even with scrubbing. Is this a worrisome side effect of the SSZ? She is currently taking 1 tab twice a day of SSZ. * Telephone Encounter - Michelle Ochoa - 08/24/2019 143 EST [facility] patient would like a call back to discuss medication side effects. documented in this encounter Plan of Treatment Upcoming Encounters Date Type Department Care Team (Late st Contact Info) Description 03/23/2024 11:15 EDT Telemedicine [facility] Rheumatology [address] [place] [address] Venecia Vega MD [address] [facility] [address] [place] [phone] documented as of this encounter Visit Diagnoses Not on filedocumented in this encounter Care Teams Disintegrator Feeder Relationship Specialty Start Date End Date Serafin Saucedo MD [address] [place] [phone] PCP - General 02/13/19 04/25/20 documented as of this encounter
--- OUTSIDE RECORDS SUMMARY | 2024-03-14 18:00 | XMS_ITS | Encounter Summary ---
Author Organization [facility] Address [address] [place] [address] Care Team Providers Care Casket Upholsterer Name Role Phone Serafin Saucedo MD Primary Care Provider [phone] Reason for Visit * Reason Onset Date Comments Labs Only 10/02/2019 Encounter Details Date Type Department Care Team (Late st Contact Info) Description 10/02/2019 Telephone [facility] Rheumatology [address] [place], [place] [phone] Venecia Vega MD [address] [facility] [address] [place] [phone] Labs Only Social History Tobacco Use Types [...] Telephone Encounter - Katt Stringer RN - 10/03/2019 0831 EDT Talked with Arabella and instructed her to get her labs done in about a month per Dr. Vega with appreciation expressed. Standing orders placed for CBC, CRP and CMP and instructed to get them done every3-4 months. * Telephone Encounter - Dorie Pérez - 10/02/2019 1401 EDT Arabella called to see about blood work. At her last visit you had said to do labs in 3-4 weeks. She is wondering if you would like her to do them now or wait? documented in this encounter Plan of Treatment Upcoming Encounters Date Type Department Care Team (Late st Contact Info) Description 03/23/2024 11:15 EDT Telemedicine [facility] Rheumatology [address] [place] [phone] Venecia Vega MD [address] [place] [address] [place] [phone] documented as of this encounter Visit Diagnoses Diagnosis Spondyloarthropathy- Primary Spondylosis of unspecified site without mention of myelopathy High risk medication use Encounter for long-term (current) use of other medications documented in this encounter Care Teams Casket Upholsterer Relationship Specialty Start Date End Date Serafin Saucedo MD [address] [place] [phone] PCP - General 02/13/19 04/25/20 documented as of this encounter
--- OUTSIDE RECORDS SUMMARY | 2024-03-14 18:00 | XMS_ITS | Encounter Summary ---
Author Organization [facility] Address [address] [place] [address] Care Team Providers Care Boat Carpenter Mechanic Name Role Phone None, Provider Primary Care Provider Unavailabl e Encounter Details Date Type Department Care Team (Latest Contact Info) Description 09/30/2018 14:15 EDT - 09/30/2018 23:59 EDT Hospital Encounter [address] [address] Unknown, Provider, Discharge Disposition: Home or Self Care Social History Tobacco Use Types Packs/Day Years Used Date Smoking Tobacco: Never Assessed Sex and Gender Information Value Date Recorded Sex Assigned at Not on file Gender Identity Female 07/04/2019 11:12 EST Sexual Orientation Not on file documented as of this encounter Medications at Time of Discharge Medication Sig Dispensed Refills Start Date End Date naproxen (NAPROSYN) 500 mg tablet Take 1 Tab by mouth 2 times daily as needed. for arthritis 05/10/2014 09/07/2019 documented as of this encounter Discharge Disposition Disposition Code Departure Means Destination Home or Self Residential documented in this encounter Plan of Treatment Upcoming Encounters Date Type Department Care Team (Late st Contact Info) Description 03/23/2024 11:15 EDT Telemedicine [facility] Rheumatology [address] [place], [place] [address] Venecia Vega MD [address] [facility] [address] [place] [phone] documented as of this encounter Visit Diagnoses Not on filedocumented in this encounter Care Teams Boat Carpenter Mechanic Relationship Specialty Start Date End Date None, Provider PCP - General 04/02/15 02/12/19 documented as of this encounter
--- OUTSIDE RECORDS SUMMARY | 2024-03-14 18:00 | XMS_ITS | Encounter Summary ---
Author Organization [facility] Address [address] [place] [address] Care Team Providers Care Spring Former Hand Name Role Phone None, Provider Primary Care Provider Serafin Zapata MD Primary Care Provider [phone] Encounter Details Date Type Department Care Team (Late st Contact Info) Description 04/14/2018 Historical Results Only [facility] Radiology Results [address] [place], [place] [address] Nancy Wyatt ND [address] [place] [phone] Social History Tobacco Use Types Packs/Day Years Used Date Smoking Tobacco: Never Assessed Sex and Gender Information Value Date Recorded Sex Assigned at Not on file Gender Identity Female 07/04/2019 11:12 EST Sexual Orientation Not on file documented as of this encounter Plan of Treatment Upcoming Encounters Date Type Department Care Team (Late st Contact Info) Description 03/23/2024 11:15 EDT Telemedicine [facility] Rheumatology [address] [place], [place] [phone] Venecia Vega MD [address] [facility] [address] [place] [address] documented as of this encounter Procedures Procedure Name Priority Date/Time Associated Diagnosis Comments XR CHEST 2 VIEWS 04/14/2018 16:4 2 EDT documented in this encounter Results * XR CHEST 2 VIEWS (04/14/2018 16:42 EDT) Anatomical Region Laterality Modality Other 04/14/2018 16:4 2 EDT Narrative 04/14/2018 16:42 EDT ? EXAM: RADIOLOGY/CHEST PA ?? LAT ?EX. D/ (1601) ? CLINICAL INFORMATION: ? CHEST PAIN AND DYSPNEA X 3 DAYS ? EXAM: ?XR Chest, 2 Views ? EXAM DATE/TIME: ?04/14/2018 3:23 PM ? CLINICAL HISTORY: ?32 years old, female; Pain; Chest pain; Type not specified; ? Additional info: Chest pain and dyspnea x 3 days ? TECHNIQUE: ?XR of the chest, 2 views. ? COMPARISON: ?CR CLAVICLE-LEFT 07/21/2013 5:40 PM ? FINDINGS: ?Lungs: Unremarkable. No consolidation. ?Pleural space: Unremarkable. No pleural effusion. No ? pneumothorax. ?Heart/Mediastinum: Unremarkable. No cardiomegaly. ?Bones/joints: Unremarkable for patient's age. ? IMPRESSION: ? No acute findings. ? REPORT SIGNED IN OTHER VENDOR SYSTEM 04/14/2018 ?Reported By: Suman Montesinos MD ? CC: ? Transcribed Date/Time: 04/14/2018 (1642) ? Vending Machine Collector: ? Printed Date/Time: 12/24/2018 (0750) ? PAGE 1 ? Signed Report ? Procedure Note Suman Montesinos T - 05/11/2019 EXAM: RADIOLOGY/CHEST PA LAT EX. D/ (1601) CLINICAL INFORMATION: CHEST PAIN AND DYSPNEA X 3 DAYS EXAM: XR Chest, 2 Views EXAM DATE/TIME: 04/14/2018 3:23 PM CLINICAL HISTORY: 32 years old, female; Pain; Chest pain; Type not specified; Additional info: Chest pain and dyspnea x 3 days TECHNIQUE: XR of the chest, 2 views. COMPARISON: CR CLAVICLE-LEFT 07/21/2013 5:40 PM FINDINGS: Lungs: Unremarkable. No consolidation. Pleural space: Unremarkable. No pleural effusion. No pneumothorax. Heart/Mediastinum: Unremarkable. No cardiomegaly. Bones/joints: Unremarkable for patient's age. IMPRESSION: No acute findings. REPORT SIGNED IN OTHER VENDOR SYSTEM 04/14/2018 Reported By: Suman Montesinos MD CC: Transcribed Date/Time: 04/14/2018 (9399) Vending Machine Collector: Printed Date/Time: 12/24/2018 (0756) PAGE 1 Signed Report Nancy Wyatt [facility] IMG DIAGNOSTIC IMAGI NG ORDERABLES documented in this encounter Visit Diagnoses Not on filedocumented in this encounter Care Teams Spring Former Hand Relationship Specialty Start Date End Date None, Provider PCP - General 04/02/15 02/12/19 Serafin Saucedo MD [address] [place] [phone] PCP - General 02/13/19 04/25/20 documented as of this encounter
--- OUTSIDE RECORDS SUMMARY | 2024-03-14 18:00 | XMS_ITS | Encounter Summary ---
Author Organization [facility] Address [address] [place] [address] Care Team Providers Care Private Sector Executive Name Role Phone None, Provider Primary Care Provider Serafin Zapata MD Primary Care Provider [phone] Encounter Details Date Type Department Care Team (Late st Contact Info) Description 01/07/2018 Historical Results Only [facility] - [place] [address] [place] [address] SuiterBianca MD [address] [place] [phone] Social History Tobacco Use Types Packs/Day Years Used Date Smoking Tobacco: Never Assessed Sex and Gender Information Value Date Recorded Sex Assigned at Not on file Gender Identity Female 07/04/2019 11:12 EST Sexual Orientation Not on file documented as of this encounter Plan of Treatment Upcoming Encounters Date Type Department Care Team (Late st Contact Info) Description 03/23/2024 11:15 EDT Telemedicine [facility] Rheumatology [address] [place] [phone] Venecia Vega MD [address] [place] [address] [address] [place] [address] documented as of this encounter Procedures Procedure Name Priority Date/Time Associated Diagnosis Comments COMPLETE BLOOD COUNT WITH DIFFERENTIAL (AUTO) Routine 01/07/2018 15:29 EDT C REACTIVE PROTEIN Routine 01/07/2018 15 :29 EDT COMPREHENSIVE METABOLIC PANEL (CMP) Routine 01/07/2018 15:29 EDT documented in this encounter Results * (ABNORMAL) C REACTIVE PROTEIN (01/07/2018 15:29 EDT) [facility] C-Reactive Protein 12.6(H) <10.0 mg/L 01/07/2018 18:11 [facility] 01/07/2018 15:2 9 EDT 01/07/2018 17:32 EDT Bianca Quarles MD CHEMISTRY & BLOOD GAS ORDERABLES [facility] * (ABNORMAL) COMPREHENSIVE METABOLIC PANEL (CMP) (01/07/2018 15:29 EDT) [facility] Albumin % 4.3 3.4 - 4.9 g/dL 01/07/2018 18:11 [facility] ALKALINE PHOSPHATASE - [facility] 83 38 - 126 U/L 01/07/2018 18:11 [facility] BILIRUBIN TOTAL 0.4 0.2 - 1.3 mg/dL 01/07/2018 18:11 [facility] BUN - [facility] 9(L) 10 - 26 mg/dL 01/07/2018 18:11 [facility] CALCIUM - [facility] 9.4 8.5 - 10.5 mg/dL 01/07/2018 18:11 [facility] Chloride 102 96 - 110 mmol/L 01/07/2018 18:11 [facility] CO2 Total 25 22 - 32 mEq/L 01/07/2018 18:11 [facility] CREATININE 0.70 0.52 - 1.04 mg/dL 01/07/2018 18:11 [facility] eGFR >60 01/07/2018 18:11 [facility] Comment: Chronic renal impairment is defined as GFR <60 Multiply result by 1.210 for patients. eGFR calculated using the IDMS-traceable MDRD Study Equation. ??(effective 05/07/2014) Anion Gap 11 0 - 18 01/07/2018 18:11 T [facility] GLUCOSE - [facility] 91 70 - 100 mg/dL 01/07/2018 18:11 [facility] Potassium 4.2 3.5 - 5.0 mEq/L 01/07/2018 18:11 [facility] Sodium 138 136 - 145 mEq/L 01/07/2018 18:11 [facility] TOTAL PROTEIN - [facility] 8.0 6.2 - 8.2 gm/dL 01/07/2018 18:11 [facility] SGOT/AST - [facility] 49(H) 14 - 36 U/L 01/07/2018 18:11 [facility] SGPT/ALT - [facility] 84(H) 9 - 52 U/L 8 18:11 [facility] 01/07/2018 15:2 9 EDT 01/07/2018 17:32 EDT Bianca Quarles MD CHEMISTRY & BLOOD GAS ORDERABLES [facility] * (ABNORMAL) COMPLETE BLOOD COUNT WITH DIFFERENTIAL (AUTO) (01/07/2018 15:29 EDT) ABSOLUTE NEUTROPHIL COUN - [facility] 5.39 1.7 - 7.0 10e3/ul 01/07/2018 18:05 EDT [facility] BASO # - [facility] 0.04 0.0 - 0.3 10e3/uL [facility] 0 0 - 2 % 01/07/2018 18:05 [facility] EOS # - [facility] 0.64(H) 0.05 - 0.5 10e3/uL [facility] % - [facility] 6(H) 0 - 5 % 01/07/2018 18:05 [facility] GRAN % - [facility] 48 40 - 80 % 01/07/2018 18:05 [facility] HEMATOCRIT - [facility] 40.9 34.0 - 47.0 % 01/07/2018 18:05 [facility] HEMOGLOBIN - [facility] 13.4 11.2 - 15.7 g/dl 01/07/2018 18:05 [facility] IG# - [facility] 0.02 0 - 0.07 10e3/uL 01/07/2018 18:05 [facility] IG% - [facility] 0.2 0 - 0.9 % 01/07/2018 18:05 [facility] LYMPH # - [facility] 4.36(H) 0.9 - 2.9 10e3/uL 01/07/2018 18:05 [facility] LYMPH% - [facility] 39 20 - 40 % 01/07/2018 18:05 [facility] MEAN CORPUSCULAR HGB - [facility] 28.5 26 - 34 pg 01/07/2018 18:05 [facility] MEAN CORPUSCULAR HGB CONC - [facility] 32.8 31 - 36 g/dL 01/07/2018 18:05 [facility] MEAN CELL VOLUME - [facility] 87.0 77 - 100 fl 01/07/2018 18:05 [facility] MONO # - [facility] 0.84 0.3 - 0.9 10e3/uL 01/07/2018 18:05 [facility] MONO% - [facility] 7 0 - 12 % 01/07/2018 18:05 [facility] PLATELET COUNT 494(H) 150 - 400 10e3/ul 01/07/2018 18:05 [facility] RED BLOOD COUNT - [facility] 4.70 3.8 - 5.2 10e6/ul 01/07/2018 18:05 [facility] RED CELL DISTRI WIDTH - [facility] 14.3 11.8 - 15.6 % 01/07/2018 18:05 [facility] WHITE BLOOD COUNT - [facility] 11.3(H) 3.5 - 10.5 10e3/ul 01/07/2018 18:05 EDT [facility] 01/07/2018 15:2 9 EDT 01/07/2018 17:33 EDT Bianca Quarles MD HEMATOLOGY & PF4 ORDERABLES [facility] documented in this encounter Visit Diagnoses Not on filedocumented in this encounter Care Teams Private Sector Executive Relationship Specialty Start Date End Date None, Provider PCP - General 04/02/15 02/12/19 Serafin Saucedo MD [address] [place] [phone] PCP - General 02/13/19 04/25/20 documented as of this encounter
--- OUTSIDE RECORDS SUMMARY | 2024-03-14 18:00 | XMS_ITS | Encounter Summary ---
Author Organization [facility] Address [address] [place] [address] Care Team Providers Care Hall Coordinator Name Role Phone Serafin Saucedo MD Primary Care Provider [phone] Reason for Visit * Reason Comments Ear Infection (Otitis Media) left ear in fections started in the spring was treated 3x in a row. still having popping and pain feels like it has to pop. started with allergies. * Consult (Routine) - Closed Specialty Diagnoses / Procedures Referred By Nishant garcia Referred To Contact Otolaryngology Diagnoses Ear pain Chun Stauffer MD [address] [place] [address] [place] [facility] [address] [place] [address] Referral ID Status Reason Start Date Expiration Date Visits Re quested Visits Authorized [id number] Closed 1 1 Encounter Details Date Type Department Care Team (Late st Contact Info) Description 02/14/2019 9:50 EDT Office Visit [facility] ENT - [address] [address] Milton Buenrostro MD [address] [place] [address] [address] [place] [address] Conductive hearing loss, bilateral (Primary Dx) Social History Tobacco Use [...] Sign Reading Time Taken Comments Blood Pressure 122/78 02/14/201958 EDT Pulse 101 02/14/2019957 EDT Temperature - - Respiratory Rate - - Oxygen Saturation - - Inhaled Oxygen Concentration - - Weight 113.4 kg (250 lb) 02/14/2019957 EDT Height 167.6 cm (5' 6) 02/14/2019957 EDT Body Mass Index 40.35 02/14/2019957 EDT documented in this encounter Progress Notes * Milton Buenrostro MD - 02/14/2019 0950 EDT Chun Stauffer This is a consult from Chun Stauffer for evaluation of ear fullness. Dear Dr Stauffer: History of Present Illness: This is a 33-year-old female with a history of recurrent otitis media, was treated 3 times in the past year. Has occasional popping and fullness, especially in the right ear. No drainage, vertigo, tinnitus or other ear symptoms. No family history of hearing loss. Symptoms are of mild severity, intermittent. No known modifying factors or other associated signs or symptoms. Past Medical History: Current medications include Claritin. She has no known drug allergies. She denies other medical illnesses. No previous surgeries. Family history is significant for cancer and thyroid disease. No family history of otosclerosis or other hearing loss. Social History: The patient is a nonsmoker. Review of Systems: Significant for numbness, blurred vision, light sensitivity, back pain, reflux. Otherwise, negative for a complete review of all systems. Physical Examination: General: Well-developed, well-nourished, alert, oriented, cooperative adult female in no acute distress. Normal voice. Vital signs: Height 66 inches, weight 250. Blood pressure 122/78, pulse 101. No reportable pain. The face is normal without lesions. Facial strength is symmetric. Eye exam is normal. Ears: External ears are normal. Canals are clear. The tympanic membranes are normal, translucent and mobile. An audiogram was performed which reveals a mild bilateral low frequency conductive hearing loss. SRTs are 25 dB bilaterally, excellent word discrimination and normal impedance with bilateral type A tympanograms. Nose: Nasal dorsum is midline. The airway is patent. Tu rbinates and mucosa within normal limits. Oral cavity: Lips, tongue, floor of mouth and buccal mucosa normal. Posterior pharynx is clear. Neck: No pathologic lymphadenopathy. Trachea is midline. Thyroid is normal. Chest is clear to auscultation. Heart: Regular rate and rhythm. Procedure: Fiberoptic nasal endoscopy was performed with topical anesthesia. This reveals some slight moisture around the opening in the right eustachian tube orifice but otherwise, nonobstructed, noinflammation. The left eustachian tube orifice is normal. The nasopharynx is clear. The base of tongue, epiglottis, vallecula, piriform sinuses, false vocal cords and true vocal cords are within normal limits. Impression: Mild bilateral low frequency conductive hearing loss, unclear etiology, possible early otosclerosis, mild eustachian tube dysfunction. Plan: Consider treatment for allergy such as antihistamine, decongestant and steroid nasal spray. Follow up with repeat audiogram in 1 year or p.r.n. cc: Chun Stauffer documented in this encounter Plan of Treatment Upcoming Encounters Date Type Department Care Team (Late st Contact Info) Description 03/23/2024 11:15 EDT Telemedicine [facility] Rhe[facility] [address] [place] [address] Venecia Vega MD [address] [place] [address] [place] [phone] documented as of this encounter Procedures Procedure Name Priority Date/Time Associated Diagnosis Comments PROCEDURE REPORTS - SCANNED 02/15/2019 15:35 EDT documented in this encounter Results * PROCEDURE REPORTS - SCANNED (02/15/2019 15:35 EDT) 02/15/2019 15:3 5 EDT Scan 2 Risk Control Officer PROCEDURE/MINOR HARINI GICAL ORDERABLES documented in this encounter Visit Diagnoses Diagnosis Conductive hearing loss, bilateral- Primary documented in this encounter Historical Medications * This list may reflect changes made after this encounter. Medication Sig Dispensed Refills Start Date End Date UNABLE TO FIND curaphem 11/10/2019 loratadine (CLARITIN) 10 mg tablet Take 10 mg by mouth if needed. 02/06/2021 added in this encounter Care Teams Hall Coordinator Relationship Specialty Start Date End Date Serafin Saucedo MD [address] [place] [phone] PCP - General 02/13/19 04/25/20 documented as of this encounter
--- OUTSIDE RECORDS SUMMARY | 2024-03-14 18:00 | XMS_ITS | Encounter Summary ---
Author Organization [facility] Address [address] [place] [address] Care Team Providers Care Threading Machine Operator Name Role Phone Serafin Saucedo MD Primary Care Provider [phone] Reason for Visit * Reason Comments Follow-up Arthritis. Patient c /o very mild pain in left knee today. Encounter Details Date Type Department Care Team (Latest Contact Info) Description 07/07/2019 14:15 EST Office Visit [facility] Rheumatology [address], [place] [phone] Venecia Vega MD [address] [facility] [address] [place] [address] Seronegative spondyloarthropathy ([facility]) (Primary Dx); High risk medication use Social [...] Sign Reading Time Taken Comments Blood Pressure 118/64 07/07/2019 1416 EST Pulse 67 07/07/2019 1416 EST Temperature - - Respiratory Rate - - Oxygen Saturation - - Inhaled Oxygen Concentration - - Weight 117.9 kg (260 lb) 07/07/2019 1416 EST Height 170.2 cm (5' 7) 07/07/2019 1416 EST Body Mass Index 40.72 07/07/2019 1416 EST documented in this encounter Functional Status Functional [...] * Patient Instructions* Venecia Vega MD - 07/07/2019 14:15 EST Start naproxen 500 mg every night with food. Ok to take up to twice a day Start sulfasalazine ec 500 g a day for a week then increase to 500 mg twice a day Call with update after labs in a month, if tolerating will increase the medication dose. Labs in a month then every 3 months. Read about sulfasalazine Lyme disease treatment has improved lyme related arthritis but underlying inflammation continues sothis is why we are adding sulfasalazine. documented in this encounter Ordered Prescriptions Prescription Sig Dispensed Refills Start Date End Da te sulfaSALAzine (AZULFIDINE) 500 mg EC tabletIndications:Seronegativ e spondyloarthropathy Take 1 Tab by mouth 2 times daily. 60 Tab 3 07/07/2019 09/07/2019 naproxen (NAPROSYN) 500 mg tabletIndications:Seronegativ e spondyloarthropathy Take 1 Tab by mouth 2 times daily as needed for Pain. 60 Tab 3 07/07/2019 09/18/2021 documented in this encounter Progress Notes * Venecia Vega MD - 07/07/2019 1415 EST Division of Rheumatology and Clinical Immunology Chief Complaint Patient presents with ??? Follow-up Arthritis. Patient c/o very mild pain in left knee today. HPI: 34-year-old woman last seen 10 February 2018. 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 Patient had been treated previously for seronegative spondyloarthropathy. Presented with persistent knee effusion during her fourth . Following delivery of her son Henrry, persistent left knee effusion. Did not tolerate methotrexate therapy, repeated arthrocentesis yielded inflammatory fluid. She did not tolerate Enbrel due to needle phobia, however, did improve with regard to knee effusion with use of Remicade therapy. Due to persistent arthralgias and pain as well as an equivocal Lyme test in 2018, infectious disease was consulted. Infectious disease at [facility] declined to evaluate the patient stating her labs were negative. Then patient sought evaluation in [facility] naturopathic clinic with Dr Wyatt in March 2018. Diagnosed with Lyme disease by . Underwent approximately 15 months of treatment which consisted of antibiotic therapy, supplements, tinctures. Patient states she has experienced a signi ficant improvement in her overall sense of wellbeing and joint pain but not complete resolution of her knee effusions. During the past 15 months the patient has also required intermittent doses of steroid. She reports she is been prescribed Medrol dose pack by her natural path 2-3 times. Indications for this Medrol Dosepak have been knee effusions. In the summer 2018 she had significant knee painand decreased mobility, x-rays confirm large knee effusions. She reports she took a Medrol Dosepak,went to physical therapy. Both of these interventions were helpful, however, relief was not sustained. Over the past month or 2 she has had increasing morning stiffness of 2 to 3 hours, knee pain which has woken her from night. She sometimes takes naproxen sodium 500 mg, however, still has knee stiffness. At home she has stopped climbing up the stairs because of her knee effusions. She has had repeated arthrocentesis in the past, however, does not feel this is successful way to manage her knee effusions as they have always recurred. Patient also endorses that 2 of her children have been treated for Lyme disease, 1 of her children had Lyme disease which had been causing seizures, however, aftersuccessful natural pathic intervention he is no longer having seizures. Another son had improvement in joint pain and arthralgias following treatment for Lyme disease. Her other 2 children have not seemed to have Lyme disease, her has not had Lyme disease. The patient denies any upper extremity pain but does report in the summer she fell injuring her left fourth finger. This finger pain has resolved with range of motion returning. She is not had iritis or episcleritis. She denies any oral ulcers. She has had some tinnitus she feels very fatigued. She struggled to lose weight, her mobility is significantly affected and she feels very tired and does not sleep that well. Morning stiffness lasts at least an hour. Sometimes she has upper body pain especially in the thoracic region, however, not usually in the low back. She has a sister with inflammatory bowel disease who takes Humira. The patient is concerned about the long-term prognosis for her knees. Particularly worried about eventually needing joint replacement if the inflammation is not controlled. She did have blood work drawn at the [facility] in March 2019. These labs revealed anelevated CRP of greater than 10, hemoglobin of 12.8 with platelets elevated at 492 and white count elevated at 12.2. A CMP was normal at that time. X-rays of her knees obtained January 2019 show bilateral knee arthritis she also has large effusions affecting both knees. Goals of this visit: Discussed medication which may improve her joint inflammation and arthritis. Patient is open to taking medications by prescription directed at her arthritis. Patient states she feels better after having been treated for her Lyme arthritis but still has significant arthritic symptoms which interfere with daily life. She also reports she was recently advised by her Lyme specialist that her Lyme disease has been cured based on recent laboratory testing. Current Outpatient Medications: acetaminophen (TYLENOL) 500 mg tablet Acetylcysteine (NAC) 600 mg capsule fluticasone propionate (FLONASE) 50 mcg/actuation nasal spray GRAPE SEED EXTRACT ORAL ibuprofen (MOTRIN) 200 mg tablet loratadine (CLARITIN) 10 mg tablet naproxen (NAPROSYN) 500 mg tablet naproxen (NAPROSYN) 500 mg tablet omeprazole (PRILOSEC) 20 mg capsule sulfaSALAzine (AZULFIDINE) 500 mg EC tablet tocopheryl acetate (VITAMIN E) 100 unit capsule UNABLE TO FIND UNABLE TO FIND No current facility-administered medications for this visit. Allergies include: Patient has no known allergies. Past Medical History: Diagnosis Date ??? Lyme disease 07/07/2019 Treatment with naturopathy Antibiotics. Supplements and tinctures. Therapy from 02/19 to 06/22 Dr Wyatt at [email or web address]. ??? Obesity (BMI 30-39.9) ??? Otitis media, recurrent, bilateral ??? Seronegative spondyloarthropathy (HCC-CMS) 07/07/2019 Past Surgical History: Procedure Laterality Date ??? DILATION AND CURETTAGE OF UTERUS 03/2005 for [facility] ??? TUBAL LIGATION Bilateral 07/2016 ??? WRIST SURGERY Left 2001 ([facility]) ??? WRIST SURGERY Left 03/2007 (ganglion cyst) ??? WRIST SURGERY Left 2008 (cyst) Family History Problem Relation Age of Onset ??? Cancer Mother ??? Thyroid Disease Maternal Grandmother ??? Cancer Paternal Grandfather Negative except as in hpi. Complete 12 point ros obtained- see scans for pertinent positive and negatives on intake sheet. PHYSICAL EXAMINATION: BP 118/64 (BP Cuff Sizes: Adult, large) Pulse 67 Ht 170.2 cm (67) Wt (!) 117.9 kg (260 lb) BMI 40.72 kg/m?? Physical Exam Constitutional: She is oriented to person, place, and time. She appears well- developed and well-nourished. No distress. HENT: Head: Normocephalic and atraumatic. Eyes: Pupils are equal, round, and reactive to light. Conjunctivae and EOM are normal. Neck: Normal range of motion. Neck supple. Cardiovascular: Normal rate, regular rhythm, normal heart sounds and intact distal pulses. Pulmonary/Chest: Effort normal and breath sounds normal. Abdominal: Soft. Bowel sounds are normal. Musculoskeletal: No synovitis in the upper extremities. Elbows and shoulders have free range of motion no SC arthritis. Tenderness in the thoracic region. No tenderness in the SI joints. Hip range of motion preserved. Left knee has a large effusion with decreased extension right knee and moderate effusion. Ankle onthe right is slightly full no Achilles tendon tenderness. Pes planus deformity without dactylitis. Neurological: She is alert and oriented to person, place, and time. Skin: Skin is warm and dry. Psychiatric: She has a normal mood and affect. Her behavior is normal. Judgment and thought contentnormal. Nursing note and vitals reviewed. Data reviewed: Knee x-rays from 01/2019 reveal osteoarthritic changes in both knees. Large knee effusions are visible on these x-rays. Images were personally reviewed and shared with the patient today. Outside data review: Laboratories include an elevated CRP in March 2019 normal CMP, elevated platelets white count March 2019. Previous testing evaluated: CCP negative HLA-B27 allele not identified rheumatoid factor negative. Equivocal Lyme serology felt to be positive when repeated at outside laboratory by her natural path. LABS No visits with results within 3 Month(s) from this visit. Latest known visit with results is: Historical Results Only on 12/04/2018 Component Date Value ??? CAN SPEC DESCRIPTI* 12/04/2018 Ear ??? VARIZELKESHIA ZOSTER DNA RES* 12/04/2018 Negative Assessment and plan: This is a 34-year-old woman who presents for reevaluation of persistent inflammatory monoarthritis affecting the right and left knees. I last saw her in February 2018. At that time she sought naturopathic evaluation for an equivocal Lyme test. Her light adjuster performed further testing. The patient wasdiagnosed with Lyme disease and completed 15 months of treatment for Lyme disease which consisted of antibiotic therapy, tinctures, supplements. The patient endorses improvement in stiffness, however, has required 2-3 courses of Medrol over the past 15 months for persistent knee effusions. The patient also did not improve with physical therapy. Previous treatment for inflammatory arthritis included Enbrel, however, she did not tolerate the needles, methotrexate which caused gum changes, infliximab therapy which did improve her synovitis, however, patient felt it was causing migraine headaches. Today she is open to restarting treatment for her persistent inflammation and synovitis and inflammatory arthritis. Options could include minocycline, sulfasalazine. Patient I spoke at length. I agree that we should not reaspirated her knees, the fluid has reaccumulated and she is undergone a minimum of 5 different aspirations without resolution of the left knee effusion in the past. The patient endorses poor sleep, several hours of morning stiffness. Due to the persistence of her synovitis I recommend treatment with sulfasalazine. I have also suggested she schedule her Naprosyn nightly. High risk medication use: Counseled about side effects of sulfasalazine. Labs recently obtained in March show she will be able to take this medication we will repeat CBC, CMP and CRP in 1 month. She will call me to see how she tolerates the medication we will escalate the dose to 2 pills twice a day if there are no adverse reactions. Problem List Items Addressed This Visit Musculoskeletal Seronegative spondyloarthropathy (HCC-CMS) - Primary Relevant Medications naproxen (NAPROSYN) 500 mg tablet sulfaSALAzine (AZULFIDINE) 500 mg EC tablet Other Relevant Orders COMPLETE BLOOD COUNT AND DIFFERENTIAL COMPREHENSIVE METABOLIC PANEL (CMP) Other High risk medication use Relevant Orders COMPLETE BLOOD COUNT AND DIFFERENTIAL COMPREHENSIVE METABOLIC PANEL (CMP) Patient Instructions Start naproxen 500 mg every night with food. Ok to take up to twice a day Start sulfasalazine ec 500 g a day for a week then increase to 500 mg twice a day Call with update after labs in a month, if tolerating will increase the medication dose. Labs in a month then every 3 months. Read about sulfasalazine Lyme disease treatment has improved lyme related arthritis but underlying inflammation continues sothis is why we are adding sulfasalazine. Impressions, diagnosis, treatment plan were reviewed. Patient questions and concerns were reviewed and answered. Patient agreeable to plan of care and will call if any addition concerns or questions arise. Venecia Vega MD 07/07/2019 14:41 documented in this encounter Plan of Treatment Upcoming Encounters Date Type Department Care Team (Late st Contact Info) Description 03/23/2024 11:15 EDT Telemedicine [facility] Rheumatology [address], [place] [address] Venecia Vega MD [address] [facility] [address] [place] [phone] documented as of this encounter Visit Diagnoses Diagnosis Seronegative spondyloarthropathy- Primary Spondylosis of unspecified site without mention of myelopathy High risk medication use Encounter for long-term (current) use of other medications documented in this encounter Care Teams Threading Machine Operator Relationship Specialty Start Date End Date Serafin Saucedo MD [address] [place] [phone] PCP - General 02/13/19 04/25/20 documented as of this encounter
--- OUTSIDE RECORDS SUMMARY | 2024-03-14 18:00 | XMS_ITS | Encounter Summary ---
Author Organization [facility] Address [address] [place] [address] Care Team Providers Care Online Marketing Strategist Name Role Phone None, Provider Primary Care Provider Serafin Zapata MD Primary Care Provider [phone] Encounter Details Date Type Department Care Team (Late st Contact Info) Description 01/10/2018 Historical Results Only [facility] Radiology Results [address], [place] [phone] SuiterBianca MD [address] [place] [phone] Social History Tobacco Use Types Packs/Day Years Used Date Smoking Tobacco: Never Assessed Sex and Gender Information Value Date Recorded Sex Assigned at Not on file Gender Identity Female 07/04/2019 11:12 EST Sexual Orientation Not on file documented as of this encounter Plan of Treatment Upcoming Encounters Date Type Department Care Team (Late st Contact Info) Description 03/23/2024 11:15 EDT Telemedicine [facility] Rheumatology [address] [place], [place] [address] Venecia Vega MD [address] [facility] [address] [place] [phone] documented as of this encounter Procedures Procedure Name Priority Date/Time Associated Diagnosis Comments US PELVIS TRANSVAGINAL COMPLETE 01/10/2018 17:43 EDT documented in this encounter Results * US PELVIS TRANSVAGINAL (01/10/2018 17:43 EDT) Anatomical Region Laterality Modality Pelvis Other 01/10/2018 17:4 3 EDT Narrative 01/10/2018 17:46 EDT ? EXAM: ULTRASOUND/TRANSVAGINAL - CAREER GUIDANCE COUNSELOR W/ DO EX. D/ (1615) ? CLINICAL INFORMATION: ? R10.31 LEFT LOWER QUADRANT PAIN. ??R/O MASS OR ? CYST. ? INDICATION: R10.31 LEFT LOWER QUADRANT PAIN. ??R/O MASS OR, CYST. LLQ ? PAIN X 1WK R/O MASS OR CYST ? TECHNIQUE: ?Transvaginal pelvic ultrasound. Arterial and venous ? spectral waveforms along with color imaging of the ovaries. ? COMPARISON: 03/08/2015. ? FINDINGS: ?The uterus measures 9.2 x 4.7 x 5.4 centimeters. The ? endometrium measures 10.2 mm in thickness. The uterine parenchyma is ? unremarkable. ??No free fluid is seen in the cul-de-sac. The right ? ovary measures 3.7 x 2.0 x 2.1 cm. ?The left ovary measures 4.1 x ? 2.6 x 3.7 cm. Within the left ovary, there is a 2.2 x 1.9 x 2.6 cm ? cyst, containing a single internal septation.. The ovarian parenchyma ? is otherwise normal in appearance. Symmetric ovarian blood flow is ? noted. ? IMPRESSION: ? 1. Left ovarian 2.6 x 1.9 x 2.2 cm cyst. This contains a single ? internal septation. ? 2. Unremarkable exam of the right ovary and uterus. ? REPORT SIGNED IN OTHER VENDOR SYSTEM 01/10/2018 ?Reported By: Bong Mead MD ? CC: ? Transcribed Date/Time: 01/10/2018 (3416) ? Bisque Cleaner: ? Printed Date/Time: 12/23/2018 (0915) ? PAGE 1 ? Signed Report ? Procedure Note Bong Mead MD - 05/10/2019 EXAM: ULTRASOUND/TRANSVAGINAL - CAREER GUIDANCE COUNSELOR W/ DO EX. D/ (6205) CLINICAL INFORMATION: R10.31 LEFT LOWER QUADRANT PAIN. R/O MASS OR CYST. INDICATION: R10.31 LEFT LOWER QUADRANT PAIN. R/O MASS OR, CYST.LLQ PAIN X 1WK R/O MASS OR CYST TECHNIQUE: Transvaginal pelvic ultrasound. Arterial and venous spectral waveforms along with color imaging of the ovaries. COMPARISON: 03/08/2015. FINDINGS: The uterus measures 9.2 x 4.7 x 5.4 centimeters. The endometrium measures 10.2 mm in thickness. The uterine parenchymais unremarkable. No free fluid is seen in the cul-de-sac. The right ovary measures 3.7 x 2.0 x 2.1 cm. The left ovary measures 4.1 x 2.6 x 3.7 cm. Within the left ovary, there is a 2.2 x 1.9 x 2.6 cm cyst, containing a single internal septation.. The ovarianparenchyma is otherwise normal in appearance. Symmetric ovarian blood flow is noted. IMPRESSION: 1. Left ovarian 2.6 x 1.9 x 2.2 cm cyst. This contains a single internal septation. 2. Unremarkable exam of the right ovary and uterus. REPORT SIGNED IN OTHER VENDOR SYSTEM 01/10/2018 Reported By: Bong Mead MD CC: Transcribed Date/Time: 01/10/2018 (0721) Bisque Cleaner: Printed Date/Time: 12/23/2018 (5655) PAGE 1 Signed Report Bianca Quarles MD IMG OB OR DERABLES documented in this encounter Visit Diagnoses Not on filedocumented in this encounter Care Teams Online Marketing Strategist Relationship Specialty Start Date End Date None, Provider PCP - General 04/02/15 02/12/19 Serafin Saucedo MD [address] [place] [phone] PCP - General 02/13/19 04/25/20 documented as of this encounter
--- OUTSIDE RECORDS SUMMARY | 2024-03-14 18:00 | XMS_ITS | Encounter Summary ---
Author Organization [facility] Address [address] [place] [address] Care Team Providers Care Office Lead Name Role Phone None, Provider Primary Care Provider Serafin Zapata MD Primary Care Provider [phone] Encounter Details Date Type Department Care Team (Late st Contact Info) Description 10/04/2018 Historical Results Only [facility] Lab - Main [place] [address] [place] [phone] Mary Braswell MD [address] [place] [address], [address] [place] [address] Social History Tobacco Use Types Packs/Day Years Used Date Smoking Tobacco: Never Assessed Sex and Gender Information Value Date Recorded Sex Assigned at Not on file Gender Identity Female 07/04/2019 11:12 EST Sexual Orientation Not on file documented as of this encounter Plan of Treatment Upcoming Encounters Date Type Department Care Team (Late st Contact Info) Description 03/23/2024 11:15 EDT Telemedicine [facility] Rheumatology [address] [place] [phone] Venecia Vega MD [address] [place] [address] [address] [place] [phone] documented as of this encounter Procedures Procedure Name Priority Date/Time Associated Diagnosis Comments URINE CHEMICAL (DIP) & SEDIMENT (MICRO) WITHOUT REFLEX TO CULTURE Routine 10/04/2018 15:38 EDT BACTERIAL CULTURE, URINE Routine 10/04/2018 15:38 EDT HPV DNA DETECTION WITH GENOTYPING, PCR Routine 10/04/2018 9:49 EDT PAP TEST Routine 10/04/2018 documented in this encounter Results * BACTERIAL CULTURE, URINE (10/04/2018 15:38 EDT) USUAL UROGENITAL BIENVENIDO - [facility] UUV 10/06/2018 11:10 EDT [facility] CitrateConcentration <10,000 CFU/ML 10/2018 11:10 EDT [facility] 10/04/2018 15:3 8 EDT 10/04/2018 17:53 EDT Comment:VOID Mary Braswell MD MICROBIOLOGY - GENER AL ORDERABLES [facility] * UA, CHEMICAL AND SEDIMENT ANALYSIS (DIPSTICK AND MICROSCOPIC) (10/04/2018 15:38 EDT) URINE APPEARANCE - [facility] Clear CLEAR 10/04/2018 18:10 [facility] URINE BILIRUBIN - DIPSTICK - [facility] Negative NEGATIVE 10/04/2018 18:10 [facility] URINE BLOOD - [facility] Negative NEG 10/04/2018 18:10 [facility] URINE COLOR - [facility] Yellow YELLOW 10/04/2018 18:10 [facility] URINE GLUCOSE - DIPSTICK - [facility] Negative NEGATIVE 10/04/2018 18:10 [facility] URINE KETONE - [facility] Negative NEGATIVE 10/04/2018 18:10 [facility] URINE LEUK ESTERASE - [facility] Negative NEG 10/04/2018 18:10 [facility] URINE NITRITE - DIPSTICK - [facility] Negative NEG 10/04/2018 18:10 [facility] URINE PH - [facility] 6.5 4.0 - 8.0 9 18:10 [facility] URINE PROTEIN - DIPSTICK - [facility] Negative NEG 10/04/2018 18:10 EDT [facility] URINE SPECIFIC GRAVITY - [facility] 1.010 1.001 - 1.035 10/04/2018 18:10 EDT [facility] URINE UROBILINOGEN - DIPSTICK - [facility] 0.2 0.2 - 1.0 10/04/2018 18:10 EDT [facility] 10/04/2018 15:3 8 EDT 10/04/2018 17:53 EDT Mary Braswell MD URINALYSIS ORDERABLE S [facility] * HUMAN PAPILLOMAVIRUS (HPV) DETECTION-HIGH RISK TYPES (10/04/2018 9:49 EDT) HPV other High Risk types, PCR NEG 10/07/2018 15:20 EDT [facility] Comment: Negative for HPV types 16, 18, 31, 33, 35, 39, 45, 51, 52, 56, 58, 59, 66, 68. Method: Cervista HPV HR (High Risk) DNA test. 10/04/2018 9:49 EDT 10/05/2018 9:49 EDT Mary Braswell MD MICROBIOLOGY - GENER AL ORDERABLES [facility] * PAP TEST (10/04/2018) 10/04/2018 10/05/2018 9:4 9 EDT Narrative [facility] - 10/10/2018 8:13 EDT ----- ------- Name: DEVIKA OJEDA ? : 81 ?Age/Sex: 33/F ?Unit#: [id number] ? Loc: AGO ? Status: REG POV ?? Reg Date: 10/04/18 ? Pt.Phone Number: ? ----- ------- Specimen: [id number] ?STATUS: SOUT ?Spec Date:10/04/18 ? Physician Copies: ?Mary Braswell MD ? Tissues: ? Cervical/Endo Pap ?Serafin Saucedo MD CPT: 31787 ?? Units: ??1 ----- ------- ? CYTOLOGY [...] confirmed the above diagnosis. Test Performed by [facility], [address] [place] [id number] Clip On Sunglasses Assembler: Rhona Brown MD PHD ----- ------- Mary Braswell MD PATHOLOGY ORDERABLES [facility] documented in this encounter Visit Diagnoses Not on filedocumented in this encounter Care Teams Office Lead Relationship Specialty Start Date End Date None, Provider PCP - General 04/02/15 02/12/19 Serafin Saucedo MD [address] [place] [phone] PCP - General 02/13/19 04/25/20 documented as of this encounter
--- OUTSIDE RECORDS SUMMARY | 2024-03-14 18:00 | XMS_ITS | Encounter Summary ---
Author Organization [facility] Address [address] [place] [address] Care Team Providers Care Sales Exhibitor Name Role Phone Serafin Saucedo MD Primary Care Provider [phone] Reason for Visit * Reason Onset Date Comments Influenza 08/10/2019 Encounter Details Date Type Department Care Team (Late st Contact Info) Description 08/10/2019 Telephone [facility] Adult Primary Care - [place] [address] [place], [place] [phone] Serafin Saucedo MD [address] [place] [phone] Influenza Social History Tobacco Use Types Packs/Day Years [...] Dispensed Refills Start Date End Da te oseltamivir (TAMIFLU) 75 mg capsule Take 1 Cap by mouth 2 times daily. 10 Cap 08/10/2019 09/07/2019 documented in this encounter Miscellaneous Notes * Telephone Encounter - Lucía Moreno, RN - 08/10/2019 9580 EST Spoke with Edgard. She is feeling quite ill. Quite sure she's got the flu. Tamiflu escribed to [facility] per Dr Saucedo's recommendation * Telephone Encounter - Mel Segura - 08/10/2019 1407 EST Son has been diagnosed with flu. She is not feeling well now. She was told to contact us for tamiflu. documented in this encounter Plan of Treatment Upcoming Encounters Date Type Department Care Team (Late st Contact Info) Description 03/23/2024 11:15 EDT Telemedicine [facility] Rheumatology [address] [place] [address] [phone] Venecia Vega MD [address] [facility] [address] [place] [phone] documented as of this encounter Visit Diagnoses Not on filedocumented in this encounter Care Teams Sales Exhibitor Relationship Specialty Start Date End Date Serafin Saucedo MD [address] [place] [phone] PCP - General 02/13/19 04/25/20 documented as of this encounter
--- OUTSIDE RECORDS SUMMARY | 2024-03-14 18:00 | XMS_ITS | Encounter Summary ---
Author Organization [facility] Address [address] [place] [address] Care Team Providers Care Chief Petroleum Engineer Name Role Phone Serafin Saucedo MD Primary Care Provider [phone] Reason for Visit * Reason Onset Date Comments Medication Management 07/24/2019 Encounter Details Date Type Department Care Team (Late st Contact Info) Description 07/24/2019 Telephone [facility] Rheumatology [address] [place], [place] [phone] Venecia Vega MD [address] [facility] [address] [place] [phone] Medication Management Social History Tobacco Use Types [...] Telephone Encounter - Germaine Irby RN - 07/24/2019 1352 EST Rx for Prednisone as ordered sent to [facility]. * Telephone Encounter - Germaine Irby RN - 07/24/2019 1351 EST Called pt and LM with the information below. * Telephone Encounter - Venecia Vega MD - 07/24/2019 1159 EST Sulfasalzine does not cause acne and is not a reason to avoid taking the medication or increasing the dose. She needs to increase the dose of the medication to 2 pills a day. She can add prednisone 5 mg a day if she is willing. She needs to give the sulfasalzine time to work and also needs to take a high enough dose to benefit. The fatigue is probably multifactorial,however, having her arthritis be out of control will not help so we are working to get the arthritis under control. If agrees to take prednisone rx is 5 mg daily with disp 30 pills and 3 refills. * Telephone Encounter - Germaine Irby RN - 07/24/2019 1117 EST Called pt and she states that she started Sulfasalazine 2 weeks Ago.She is still only taking 1 tablet a day because she started having skin breakout.She has acne on her face and lips and feels reallytired.She was wondering what to do? Please advise, Thank you * Telephone Encounter - Cortney Olmedo - 07/24/2019 1039 EST lvm- would like a nurse call back, has questions about medication Dr. Vega prescribed- did not leave medication name. documented in this encounter Plan of Treatment Upcoming Encounters Date Type Department Care Team (Late st Contact Info) Description 03/23/2024 11:15 EDT Telemedicine [facility] Rheumatology [address] [place], [place] [phone] Venecia Vega MD 130 [facility] [address] [place] [phone] documented as of this encounter Visit Diagnoses Not on filedocumented in this encounter Care Teams Chief Petroleum Engineer Relationship Specialty Start Date End Date Serafin Saucedo MD [address] [place] [phone] PCP - General 02/13/19 04/25/20 documented as of this encounter
--- OUTSIDE RECORDS SUMMARY | 2024-03-14 18:00 | XMS_ITS | Encounter Summary ---
Author Organization [facility] Address [address] [place] [address] Care Team Providers Care Metal Reclamation Kettle Tender Name Role Phone Serafin Saucedo MD Primary Care Provider [phone] Reason for Visit * Reason Onset Date Comments Medication Problem 08/10/2019 Encounter Details Date Type Department Care Team (Late st Contact Info) Description 08/10/2019 Telephone [facility] [place] [facility] - [place] [address] [place], [place] [phone] Serafin Saucedo MD [address] [place] [phone] Medication Problem Social History Tobacco Use Types Packs/Day Years [...] Telephone Encounter - Lucía Moreno RN - 08/11/2019 1108 EST PA approved. Fax'd notice to [facility] * Telephone Encounter - Silvana Pate - 08/10/2019 1520 EST Pt was given tamiflu in July 12, 2019 and will need a Prior Auth if needing to fill prior to 08/12/2019. Please call Yuly at [facility] [phone] documented in this encounter Plan of Treatment Upcoming Encounters Date Type Department Care Team (Late st Contact Info) Description 03/23/2024 11:15 EDT Telemedicine [facility] Rheumatology [address] [place] [address] Venecia Vega MD 130 [facility] [address] [place] [phone] documented as of this encounter Visit Diagnoses Not on filedocumented in this encounter Care Teams Metal Reclamation Kettle Tender Relationship Specialty Start Date End Date Serafin Saucedo MD [address] [place] [phone] PCP - General 02/13/19 04/25/20 documented as of this encounter
--- OUTSIDE RECORDS SUMMARY | 2024-03-14 18:00 | XMS_ITS | Encounter Summary ---
Author Organization [facility] Address [address] [place] [address] Care Team Providers Care Tank Builder Supervisor Name Role Phone None, Provider Primary Care Provider Serafin Zapata MD Primary Care Provider [phone] Encounter Details Date Type Department Care Team (Late st Contact Info) Description 09/20/[address] [facility] - Main [place] [address] [place] [phone] Nancy Wyatt ND [address] [place] [address] Social History Tobacco Use Types Packs/Day Years Used Date Smoking Tobacco: Never Assessed Sex and Gender Information Value Date Recorded Sex Assigned at Not on file Gender Identity Female 07/04/2019 11:12 EST Sexual Orientation Not on file documented as of this encounter Plan of Treatment Upcoming Encounters Date Type Department Care Team (Late st Contact Info) Description 03/23/2024 11:[address] [facility] Rheumatology [address] [place] [phone] Venecia Vega MD [address] [place] [address] [address] [place] [phone] documented as of this encounter Procedures Procedure Name Priority Date/Time Associated Diagnosis Comments THYROGLOBULIN AB Routine 09/20/2018 9:04 EDT documented in this encounter Results * THYROGLOBULIN AB (09/20/2018 9:04 EDT) THYROGLOBULIN ANTIBODY - [facility] 26 <61 U/mL 09/21/2018 16:20 EDT [facility] Comment: Test performed or referred by The [address] [address] 09/20/2018 9:04 EDT 09/20/2018 9:04 EDT Narrative [facility] - 09/21/2018 16:20 EDT Does PT Have a Latex Allergy? NO Nancy Wyatt ND CHEMISTRY & BLOOD GA S ORDERABLES [facility] documented in this encounter Visit Diagnoses Not on filedocumented in this encounter Care Teams Tank Builder Supervisor Relationship Specialty Start Date End Date None, Provider PCP - General 04/02/15 02/12/19 Serafin Saucedo MD [address] [place] [phone] PCP - General 02/13/19 04/25/20 documented as of this encounter
--- OUTSIDE RECORDS SUMMARY | 2024-03-14 18:00 | XMS_ITS | Encounter Summary ---
Author Organization [facility] Address [address] [place] [address] Care Team Providers Care Professor Computer Science Name Role Phone Serafin Saucedo MD Primary Care Provider [phone] Reason for Visit * Reason Onset Date Comments Other 07/12/2019 Encounter Details Date Type Department Care Team (Late st Contact Info) Description 07/12/2019 Telephone [facility] [place] - [place] [address] [place], [place] [phone] Serafin Saucedo MD [address] [place] [phone] Other Social History Tobacco Use [...] Telephone Encounter - Lucía Moreno RN - 07/13/2019 0951 EST Arabella didn't get a call back yesterday so she reached out to her arthritis doc and got a prescription called in for Tamiflu. I explained Dr Saucedo is off on wednesdays and apologized for no one getting back to her until today. * Telephone Encounter - Raudel Ortiz - 07/12/2019 1324 EST Pt isn't feeling super great, tired, achey so concerned the flu is starting on her * Telephone Encounter - Beth Moctezuma - 07/12/2019 1204 EST Arabella called and lmom saying that her son was just diagnosed with the flu. The branch examiner said that the whole family needs to start Tamiflu because he is contagious. She would like to call in a prescription for it. documented in this encounter Plan of Treatment Upcoming Encounters Date Type Department Care Team (Late st Contact Info) Description 03/23/2024 11:15 EDT Telemedicine [facility] Rheumatology [address] [place] [phone] Venecia Vega MD [address] [facility] [address] [place] [phone] documented as of this encounter Visit Diagnoses Not on filedocumented in this encounter Care Teams Professor Computer Science Relationship Specialty Start Date End Date Serafin Saucedo MD [address] [place] [phone] PCP - General 02/13/19 04/25/20 documented as of this encounter
--- OUTSIDE RECORDS SUMMARY | 2024-03-14 18:00 | XMS_ITS | Encounter Summary ---
Author Organization [facility] Address [address] [place] [address] Care Team Providers Care Sail Repair Person Name Role Phone None, Provider Primary Care Provider Serafin Zapata MD Primary Care Provider [phone] Encounter Details Date Type Department Care Team (Late st Contact Info) Description 12/04/2018 Historical Results Only [facility] Lab - Main [place] [address] [place] [address] Debra Burgos NP [address] [place] [phone] Social History Tobacco Use Types Packs/Day Years Used Date Smoking Tobacco: Never Assessed Sex and Gender Information Value Date Recorded Sex Assigned at Not on file Gender Identity Female 07/04/2019 11:12 EST Sexual Orientation Not on file documented as of this encounter Plan of Treatment Upcoming Encounters Date Type Department Care Team (Late st Contact Info) Description 03/23/2024 11:15 EDT Telemedicine [facility] Rheumatology [address] [place], [place] [address] Venecia Vega MD [address] [place] [address] [address] [place] [phone] documented as of this encounter Procedures Procedure Name Priority Date/Time Associated Diagnosis Comments VARICELLA ZOSTER VIRUS MOLECULAR DETECTION, PCR Routine 12/04/2018 17:34 EDT documented in this encounter Results * VARICELLA ZOSTER VIRUS MOLECULAR DETECTION, PCR (12/04/2018 17:34 EDT) CAN SPEC DESCRIPTION - [facility] Ear () 12/06/2018 13:03 EDT [facility] Comment:Right VARIZELLA ZOSTER DNA RESULT - [facility] Negative () 12/06/2018 13:03 EDT [facility] Comment: This test was developed and its performance characteristics determined by [facility]. It has not been cleared or approved by the US Food and Drug Administration. FDA does not require this test to go through premarket FDA review. This test is used for clinical purposes. It should not be regarded as investigational or for research. This laboratory is certified under the Clinical Laboratory Improvement Amendments (CLIA) as qualified to perform high complexity clinical laboratory testing. Test performed or referred by The [address] [address] 12/04/2018 17:3 4 EDT 12/04/2018 19:32 EDT Debra Burgos VENEER STOCK GRADER MICROBIOLOGY - GENER AL ORDERABLES [facility] documented in this encounter Visit Diagnoses Not on filedocumented in this encounter Care Teams Sail Repair Person Relationship Specialty Start Date End Date None, Provider PCP - General 04/02/15 02/12/19 Serafin Saucedo MD [address] [place] [phone] PCP - General 02/13/19 04/25/20 documented as of this encounter
--- OUTSIDE RECORDS SUMMARY | 2024-03-14 18:00 | XMS_ITS | Encounter Summary ---
Author Organization [facility] Address [address] [place] [address] Care Team Providers Care Yarding Engineer Name Role Phone None, Provider Primary Care Provider Serafin Zapata MD Primary Care Provider [phone] Encounter Details Date Type Department Care Team (Late st Contact Info) Description 12/04/2018 Historical Results Only [facility] Lab - Main [place] [address] [place] [address] Debra Burgos, NIKKO [address] [place] [phone] Social History Tobacco Use Types Packs/Day Years [...] EDT Telemedicine [facility] Rheumatology [address] [place], [place] [address] Venecia Vega MD [address] [place] [address] [address] [place] [phone] documented as of this encounter Procedures Procedure Name Priority Date/Time Associated Diagnosis Comments HERPES SIMPLEX VIRUS (HSV) BY RAPID PCR Routine 12/04/2018 17:34 EDT documented in this encounter Results * HERPES SIMPLEX VIRUS (HSV) BY RAPID PCR (12/04/2018 17:34 EDT) HSV 1 DNA RESULT Negative () 12/07/19 13:03 EDT [facility] HSV 2 DNA RESULT Negative () 12/07/19 13:03 EDT [facility] Comment: Test performed or referred by The [address] [address] SPECIMEN DESCRIPTION - [facility] Ear () 12/06/2018 13:03 EDT [facility] Comment:Right 12/04/2018 17:3 4 EDT 12/04/2018 19:32 EDT Debra Burgos UTILITY PERSON MICROBIOLOGY - GENER AL ORDERABLES [facility] documented in this encounter Visit Diagnoses Not on filedocumented in this encounter Care Teams Yarding Engineer Relationship Specialty Start Date End Date None, Provider PCP - General 04/02/15 02/12/19 Serafin Saucedo MD [address] [place] [phone] PCP - General 02/13/19 04/25/20 documented as of this encounter
--- OUTSIDE RECORDS SUMMARY | 2024-03-14 18:00 | XMS_ITS | Encounter Summary ---
Author Organization [facility] Address [address] [place] [address] Care Team Providers Care Marking Room Supervisor Name Role Phone None, Provider Primary Care Provider Serafin Zapata MD Primary Care Provider [phone] Encounter Details Date Type Department Care Team (Late st Contact Info) Description 09/30/2018 Historical Results Only [facility] Radiology Results [address] [place], [place] [address] Nancy Wyatt ND [address] [place] [phone] Social History Tobacco Use Types Packs/Day Years [...] 11:15 EDT Telemedicine [facility] Rheumatology [address] [place], [place] [address] Venecia Vega MD 130 [facility] [address] [place] [phone] documented as of this encounter Procedures Procedure Name Priority Date/Time Associated Diagnosis Comments US THYROID/NECK 09/30/2018 9:42 EDT US ABDOMEN COMPLETE 09/30/2018 9:38 EDT documented in this encounter Results * US THYROID/NECK (09/30/2018 9:42 EDT) Anatomical Region Laterality Modality Other 09/30/2018 9:42 EDT Narrative 09/30/2018 9:45 EDT ? EXAM: ULTRASOUND/THYROID ?EX. D/ (0743) ? CLINICAL INFORMATION: ? E07.9 DISORDER OF THYROID ? THYROID ? Signs and Symptoms/Comments: ??E07.9 DISORDER OF THYROID ? Comparison: 08/24/2017 ? Technique: Thyroid ultrasound was performed with color Doppler ? imaging. ? FINDINGS: ? Right Thyroid Lobe: Homogeneous in echotexture (measuring 5.6 x 1.7 x ? 1.8 cm). A 3 mm cystic nodule is unchanged.. ? Left Thyroid Lobe: Homogeneous in echotexture (measuring 5.2 x 1.6 x ? 1.8 cm). There is an unchanged 3 mm cystic nodule. There is also an ? unchanged 5 mm hypoechoic nodule within the anterior mid aspect of ? the left thyroid lobe. ? Thyroid Isthmus: Homogeneous in echotexture (measuring 0.4 cm in ? thickness). No focal lesion is identified. ? IMPRESSION: ? Stable examination. Unchanged hypoechoic and cystic thyroid nodules ? measuring up to 5 mm. ? REPORT SIGNED IN OTHER VENDOR SYSTEM 09/30/2018 ?Reported By: Trevor Olguin MD ? CC: ? Transcribed Date/Time: 09/30/2018 (944) ? Appliance Painter And Refinisher: ? Printed Date/Time: 12/25/2018 (2101) ? PAGE 1 ? Signed Report ? Procedure Note Trevor Olguin E - 05/11/2019 EXAM: ULTRASOUND/THYROID EX. D/ (0743) CLINICAL INFORMATION: E07.9 DISORDER OF THYROID THYROID Signs and Symptoms/Comments: E07.9 DISORDER OF THYROID Comparison: 08/24/2017 Technique: Thyroid ultrasound was performed with color Doppler imaging. FINDINGS: Right Thyroid Lobe: Homogeneous in echotexture (measuring 5.6 x 1.7x 1.8 cm). A 3 mm cystic nodule is unchanged.. Left Thyroid Lobe: Homogeneous in echotexture (measuring 5.2 x 1.6x 1.8 cm). There is an unchanged 3 mm cystic nodule. There is also an unchanged 5 mm hypoechoic nodule within the anterior mid aspect of the left thyroid lobe. Thyroid Isthmus: Homogeneous in echotexture (measuring 0.4 cm in thickness). No focal lesion is identified. IMPRESSION: Stable examination. Unchanged hypoechoic and cystic thyroid nodules measuring up to 5 mm. REPORT SIGNED IN OTHER VENDOR SYSTEM 09/30/2018 Reported By: Trevor Olguin MD CC: Transcribed Date/Time: 09/30/2018 (944) Appliance Painter And Refinisher: Printed Date/Time: 12/25/2018 (2101) PAGE 1 Signed Report Nancy Wyatt ND [facility] US ORDERABLES * US ABDOMEN COMPLETE (09/30/2018 9:38 EDT) Anatomical Region Laterality Modality Abdomen, Body Ultrasound 09/30/2018 9:38 EDT Narrative 09/30/2018 9:42 EDT ? EXAM: ULTRASOUND/ABDOMINAL MULTIPLE ORGAN EX. D/ (0743) ? CLINICAL INFORMATION: ? R10.84 GENERALIZED ABDOMINAL PAIN ? R10.814 LLQ ABDOMINAL TENDERNESS ? ABDOMINAL MULTIPLE ORGAN ? Signs and Symptoms/Comments: ??R10.84 GENERALIZED ABDOMINAL PAIN, ? R10.814 LLQ ABDOMINAL TENDERNESS ? Comparison: Abdominal CT 10/23/2016 ? Technique: Complete abdominal ultrasound was performed with color ? Doppler imaging. ? FINDINGS: ? Pancreas: The visible portion of the pancreas is grossly ? unremarkable. ? Liver: The liver is normal in size (measuring 17.8 cm). The liver is ? normal in echotexture. No focal hepatic mass is identified. ? Bile Ducts: ??The common bile duct measures 3.7 mm. ? Gallbladder: Cholelithiasis is present. The gallbladder wall is ? normal (1.6 mm). There is no pericholecystic fluid pericholecystic ? fluid is visible. No sonographic Phillip's sign was elicited. ? Right Kidney: The right kidney is normal in size, measuring 12.2 cm. ? There is no hydronephrosis. ? Left Kidney: The left kidney is normal in size, measuring 12.2 cm. ? There is no hydronephrosis. ? Spleen: The spleen is homogeneous in echotexture and normal in size ? measuring 11.7 cm x 4.8 cm x 4.1 cm (volume 120.7 cc). ? Vessels: No abnormalities. ? IMPRESSION: ? Cholelithiasis. ? REPORT SIGNED IN OTHER VENDOR SYSTEM 09/30/2018 ?Reported By: Trevor Olguin MD ? CC: ? Transcribed Date/Time: 09/30/2018 (0942) ? Appliance Painter And Refinisher: SCR ? Printed Date/Time: 12/25/2018 (2102) ? PAGE 1 ? Signed Report ? Procedure Note Trevor Olguin E - 05/11/2019 EXAM: ULTRASOUND/ABDOMINAL MULTIPLE ORGAN EX. D/ (0743) CLINICAL INFORMATION: R10.84 GENERALIZED ABDOMINAL PAIN R10.814 LLQ ABDOMINAL TENDERNESS ABDOMINAL MULTIPLE ORGAN Signs and Symptoms/Comments: R10.84 GENERALIZED ABDOMINAL PAIN, R10.814 LLQ ABDOMINAL TENDERNESS Comparison: Abdominal CT 10/23/2016 Technique: Complete abdominal ultrasound was performed with color Doppler imaging. FINDINGS: Pancreas: The visible portion of the pancreas is grossly unremarkable. Liver: The liver is normal in size (measuring 17.8 cm). The liveris normal in echotexture. No focal hepatic mass is identified. Bile Ducts: The common bile duct measures 3.7 mm. Gallbladder: Cholelithiasis is present. The gallbladder wall is normal (1.6 mm). There is no pericholecystic fluid pericholecystic fluid is visible. No sonographic Phillip's sign was elicited. Right Kidney: The right kidney is normal in size, measuring 12.2cm. There is no hydronephrosis. Left Kidney: The left kidney is normal in size, measuring 12.2 cm. There is no hydronephrosis. Spleen: The spleen is homogeneous in echotexture and normal in size measuring 11.7 cm x 4.8 cm x 4.1 cm (volume 120.7 cc). Vessels: No abnormalities. IMPRESSION: Cholelithiasis. REPORT SIGNED IN OTHER VENDOR SYSTEM 09/30/2018 Reported By: Trevor Olguin MD CC: Transcribed Date/Time: 09/30/2018 (1181) Appliance Painter And Refinisher: Printed Date/Time: 12/25/2018 (7845) PAGE 1 Signed Report Nancy Wyatt [facility] US ORDERABLES documented in this encounter Visit Diagnoses Not on filedocumented in this encounter Care Teams Marking Room Supervisor Relationship Specialty Start Date End Date None, Provider PCP - General 04/02/15 02/12/19 Serafin Saucedo MD [address] [place] [phone] PCP - General 02/13/19 04/25/20 documented as of this encounter
--- OUTSIDE RECORDS SUMMARY | 2024-03-14 18:00 | XMS_ITS | Encounter Summary ---
Author Organization [facility] Address [address] [place] [address] Care Team Providers Care Document Scanner Name Role Phone Serafin Saucedo MD Primary Care Provider [phone] Encounter Details Date Type Department Care Team (Late st Contact Info) Description 07/24/2019 Orders Only [facility] Rheumatology [address] [place] [address] Germaine Irby RN Social History Tobacco Use Types Packs/Day [...] te predniSONE (DELTASONE) 5 mg tablet Take 1 Tab by mouth daily. 30 Tab 3 07/24/2019 09/07/2019 documented in this encounter Plan of Treatment Upcoming Encounters Date Type Department Care Team (Late st Contact Info) Description 03/23/2024 11:15 EDT Telemedicine [facility] Rheumatology [address] [place] [address] Venecia Vega MD [address] [facility] [address] [place] [phone] documented as of this encounter Visit Diagnoses Not on filedocumented in this encounter Care Teams Document Scanner Relationship Specialty Start Date End Date Serafin Saucedo MD [address] [place] [phone] PCP - General 02/13/19 04/25/20 documented as of this encounter
--- OUTSIDE RECORDS SUMMARY | 2024-03-14 18:00 | XMS_ITS | Encounter Summary ---
Author Organization [facility] Address [address] [place] [address] Care Team Providers Care Payroll Accounting Specialist Name Role Phone None, Provider Primary Care Provider Unavailabl e Encounter Details Date Type Department Care Team (Latest Contact Info) Description 04/14/2018 13:31 EDT - 04/14/2018 23:59 EDT Hospital Encounter [address] [address] Unknown, Provider, Discharge Disposition: Home or Self [...] Code Departure Means Destination Home or Self Intermediate documented in this encounter Plan of Treatment Upcoming Encounters Date Type Department Care Team (Late st Contact Info) Description 03/23/2024 11:15 EDT Telemedicine [facility] Rheumatology [address] [place], [place] [id number] Venecia Vega MD [address] [facility] [address] [place] [phone] documented as of this encounter Visit Diagnoses Not on filedocumented in this encounter Care Teams Payroll Accounting Specialist Relationship Specialty Start Date End Date None, Provider PCP - General 04/02/15 02/12/19 documented as of this encounter
--- OUTSIDE RECORDS SUMMARY | 2024-03-14 18:00 | XMS_ITS | Encounter Summary ---
Author Organization [facility] Address [address] [place] [address] Care Team Providers Care Surface Miner Name Role Phone None, Provider Primary Care Provider Serafin Zapata MD Primary Care Provider [phone] Encounter Details Date Type Department Care Team (Late st Contact Info) Description 10/14/2018 Historical Results Only [facility] Radiology Results [address] [place], [place] [id number] Mary Braswell MD [address] [place], [place] [address]A, [address] [place] [address] Social History Tobacco Use Types Packs/Day Years Used Date Smoking Tobacco: Never Assessed Sex and Gender Information Value Date Recorded Sex Assigned at Not on file Gender Identity Female 07/04/2019 11:12 EST Sexual Orientation Not on file documented as of this encounter Plan of Treatment Upcoming Encounters Date Type Department Care Team (Late st Contact Info) Description 03/23/2024 11:15 EDT Telemedicine [facility] Rheumatology [address] [place], [place] [id number] Venecia Vega MD [address] [place] [address] [address] [place] [address] documented as of this encounter Procedures Procedure Name Priority Date/Time Associated Diagnosis Comments US PELVIS TRANSVAGINAL COMPLETE 10/14/2018 9:27 EDT US BREAST LIMITED UNILATERAL 10/14/2018 9:08 EDT MA BREAST DIAGNOSTIC FLAVIA BILATERAL 10/14/2018 9:08 EDT documented in this encounter Results * US PELVIS TRANSVAGINAL (10/14/2018 9:27 EDT) Anatomical Region Laterality Modality Pelvis Other 10/14/2018 9:27 EDT Narrative 10/14/2018 9:31 EDT ? EXAM: ULTRASOUND/TRANSVAGINAL - PHOTO OFFSET PRINTER W/ DO EX. D/ (0706) ? CLINICAL INFORMATION: ? R10.32 LLQ PAIN ? PELVIC PAIN ? INDICATION: R10.32 LLQ PAIN, PELVIC PAIN . ? COMPARISON: Pelvic ultrasound 01/10/2018. ? TECHNIQUE: Endovaginal and limited transabdominal ultrasound of the ? pelvis was performed. Color and Spectral Doppler imaging was also ? utilized with the assessment of both arterial and venous waveforms. ? FINDINGS: ? The uterus measures 8.3 cm x 4.4 cm x 5.2 cm. The endometrial stripe ? measures 2.2 mm. There is a 5 mm simple appearing cyst within the ? uterine fundus. Myometrial cysts may be seen with adenomyosis and ? possibly secondary to cystic degeneration of a leiomyoma. The uterus ? is otherwise normal in appearance. ? The right ovary measures 2.9 cm x 2.3 cm x 1.6 cm. The right ovary ? has a normal appearance. Arterial and venous spectral Doppler ? waveforms are documented within the right ovary. ? The left ovary is visible by transabdominal examination. The left ? ovary measures 2.8 cm x 2.0 cm x 1.8 cm. The left ovary has a normal ? appearance. Arterial and venous spectral Doppler waveforms are ? documented within the left ovary. ? No free intraperitoneal fluid or adnexal mass is identified.. ? IMPRESSION: ? 1. 5 mm myometrial cyst. ? 2. No acute abnormality. ? REPORT SIGNED IN OTHER VENDOR SYSTEM 10/14/2018 ?Reported By: Luis Antonio Griffin MD ? CC: ? Transcribed Date/Time: 10/14/2018 (0931) ? Site Project Manager: ? Printed Date/Time: 12/25/2018 (2101) ? PAGE 1 ? Signed Report ? Procedure Note Luis Antonio Griffin MD - 05/11/2019 EXAM: ULTRASOUND/TRANSVAGINAL - PHOTO OFFSET PRINTER W/ DO EX. D/ (0706) CLINICAL INFORMATION: R10.32 LLQ PAIN PELVIC PAIN INDICATION: R10.32 LLQ PAIN, PELVIC PAIN . COMPARISON: Pelvic ultrasound 01/10/2018. TECHNIQUE: Endovaginal and limited transabdominal ultrasound of the pelvis was performed. Color and Spectral Doppler imaging was also utilized with the assessment of both arterial and venous waveforms. FINDINGS: The uterus measures 8.3 cm x 4.4 cm x 5.2 cm. The endometrialstripe measures 2.2 mm. There is a 5 mm simple appearing cyst within the uterine fundus. Myometrial cysts may be seen with adenomyosis and possibly secondary to cystic degeneration of a leiomyoma. Theuterus is otherwise normal in appearance. The right ovary measures 2.9 cm x 2.3 cm x 1.6 cm. The right ovary has a normal appearance. Arterial and venous spectral Doppler waveforms are documented within the right ovary. The left ovary is visible by transabdominal examination. The left ovary measures 2.8 cm x 2.0 cm x 1.8 cm. The left ovary has anormal appearance. Arterial and venous spectral Doppler waveforms are documented within the left ovary. No free intraperitoneal fluid or adnexal mass is identified.. IMPRESSION: 1. 5 mm myometrial cyst. 2. No acute abnormality. REPORT SIGNED IN OTHER VENDOR SYSTEM 10/14/2018 Reported By: Luis Antonio Griffin MD CC: Transcribed Date/Time: 10/14/2018 (0931) Site Project Manager: Printed Date/Time: 12/25/2018 (7122) PAGE 1 Signed Report Mary Braswell MD IMG US OB ORDERABLES * US BREAST LIMITED UNILATERAL (10/14/2018 9:08 EDT) Anatomical Region Laterality Modality Breast Other 10/14/2018 9:08 EDT Narrative 10/14/2018 9:08 EDT ? EXAM: ULTRASOUND/UNILATERAL BREAST LIMITE EX. D/ (0834) ? CLINICAL INFORMATION: ? N64.4 (R) BREAST PAIN ? INDICATION: N64.4 (R) BREAST PAIN LLQ [...] were communicated to the patient by the rn complex care ? shortly following the examination . ? These results will be communicated to your patient via a lay letter ? from Radiology. ??If any additional imaging is needed we will contact ? your patient directly. ? REPORT SIGNED IN OTHER VENDOR SYSTEM 10/14/2018 ?Reported By: Luis Antonio Griffin MD ? CC: ? Transcribed Date/Time: 10/14/2018 (0908) ? Site Project Manager: ? Printed Date/Time: 12/25/2018 (2101) ? PAGE 1 ? Signed Report ? Procedure Note Luis Antonio Griffin MD - 05/11/2019 EXAM: ULTRASOUND/UNILATERAL BREAST LIMITE EX. D/ (0834) CLINICAL INFORMATION: N64.4 (R) BREAST PAIN INDICATION: N64.4 (R) BREAST PAIN LLQ PAIN, [...] Griffin MD CC: Transcribed Date/Time: 10/14/2018 (0908) Site Project Manager: Printed Date/Time: 12/25/2018 (3694) PAGE 1 Signed Report Mary Braswell MD [facility] US ORDERABLES * MA BREAST DIAGNOSTIC FLAVIA BILATERAL (10/14/2018 [...] were communicated to the patient by the rn complex care ? shortly following the examination . ? These results will be communicated to your patient via a lay letter ? from Radiology. ??If any additional imaging is needed we will contact ? your patient directly. ? REPORT SIGNED IN OTHER VENDOR SYSTEM 10/14/2018 ?Reported By: Luis Antonio Griffin MD ? CC: ? Transcribed Date/Time: 10/14/2018 (0908) ? Site Project Manager: ? Printed Date/Time: 12/25/2018 (210) ? PAGE [...] Griffin MD CC: Transcribed Date/Time: 10/14/2018 (0908) Site Project Manager: Printed Date/Time: 12/25/2018 (3026) PAGE 1 Signed Report Mary Braswell MD IMG MAMMOGRAPHY ENRI[facility] OLSON documented in this encounter Visit Diagnoses Not on filedocumented in this encounter Care Teams Surface Miner Relationship Specialty Start Date End Date None, Provider PCP - General 04/02/15 02/12/19 Serafin Saucedo MD [address] [place] [phone] PCP - General 02/13/19 04/25/20 documented as of this encounter
--- OUTSIDE RECORDS SUMMARY | 2024-03-14 18:00 | XMS_ITS | Encounter Summary ---
Author Organization [facility] Address [address] [place] [address] Care Team Providers Care Production Cloth Cutter Name Role Phone Serafin Saucedo MD Primary Care Provider [phone] Encounter Details Date Type Department Care Team (Late st Contact Info) Description 06/26/2019 Abstract [facility] Adult Primary Care - [address] [phone] Ambulatory, Community Engagement Specialist Social History Tobacco Use Types Packs/Day Years [...] Contact Info) Description 03/23/2024 11:15 EDT Telemedicine [facility] Rheumatology [address] [place], [place] [phone] Venecia Vega MD [address] [facility] [address] [place] [address] documented as of this encounter Visit Diagnoses Not on filedocumented in this encounter Discontinued Medications Medication Sig Discontinue Reason Start Date End Da te omeprazole (PRILOSEC) 20 mg capsule Take 1 Cap by mouth daily as needed. Error 06/26/2019 UNABLE TO FIND Other medication - -, Si cap curaphen orally 2 times a day Error 06/26/2019 documented as of this encounter Historical Medications * This list may reflect changes made after this encounter. Medication Sig Dispensed Refills Start Date End Date GRAPE SEED EXTRACT ORAL Take by mouth daily. as directed 11/30/2019 omeprazole (PRILOSEC) 20 mg capsule Take 1 Cap by mouth daily as needed. 06/26/2019 acetaminophen (TYLENOL) 500 mg tablet Take 2 Tabs by mouth every 6 hours as needed. 022 tocopheryl acetate (VITAMIN E) 100 unit capsule Take 2 Caps by mouth daily. 11/10/2019 Acetylcysteine (NAC) 600 mg capsule Take 1 Cap by mouth 2 times daily. 11/30/2019 naproxen (NAPROSYN) 500 mg tablet Take 1 Tab by mouth 2 times daily as needed. for arthritis 05/10/2014 09/07/2019 UNABLE TO FIND Other medication - -, Si cap curaphen orally 2 times a day 06/26/2019 UNABLE TO FIND Other medication - -, Sig: Burburpinella 20 drops orally 2 times a day 11/10/2019 added in this encounter Care Teams Production Cloth Cutter Relationship Specialty Start Date End Date Serafin Saucedo MD [address] [place] [phone] PCP - General 02/13/19 04/25/20 documented as of this encounter
--- OUTSIDE RECORDS SUMMARY | 2024-03-14 18:00 | XMS_ITS | Encounter Summary ---
Author Organization [facility] Address [address] [place] [address] Care Team Providers Care Pediatric Occupational Therapist Name Role Phone None, Provider Primary Care Provider Serafin Zapata MD Primary Care Provider [phone] Encounter Details Date Type Department Care Team (Late st Contact Info) Description 09/20/2018 Historical Results Only [facility] - Main [place] [address] [place] [id number] Nancy Wyatt ND [address] [place] [phone] Social History Tobacco Use Types Packs/Day Years Used Date Smoking Tobacco: Never Assessed Sex and Gender Information Value Date Recorded Sex Assigned at Not on file Gender Identity Female 07/04/2019 11:12 EST Sexual Orientation Not on file documented as of this encounter Plan of Treatment Upcoming Encounters Date Type Department Care Team (Late st Contact Info) Description 03/23/2024 11:15 EDT Telemedicine [facility] Rheumatology [address] [place], [place] [phone] Venecia Vega MD [address] [place] [address] [address] [place] [address] documented as of this encounter Procedures Procedure Name Priority Date/Time Associated Diagnosis Comments VIT D, 25-HYDROXY - CV Routine 09/20/2018 9:04 EDT COMPLETE BLOOD COUNT WITH DIFFERENTIAL (AUTO) Routine 09/20/2018 9:04 EDT THYROPEROXIDASE ANTIBODY Routine 09/20/2018 9:04 EDT C REACTIVE PROTEIN Routine 09/20/2018 9: 04 EDT TSH Routine 09/20/2018 9:04 EDT T4 FREE Routine 09/20/2018 9:04 EDT LIPASE Routine 09/20/2018 9:04 EDT HEMOGLOBIN A1C Routine 09/20/2018 9:04 EDT FOLATE Routine 09/20/2018 9:04 EDT VITAMIN B12 Routine 09/20/2018 9:04 EDT AMYLASE Routine 09/20/2018 9:04 EDT LIPID PROFILE (INCLUDES CHOLESTEROL, TRIGLYCERIDES, HDL, LDL) Routine 09/20/2018 9:04 EDT COMPREHENSIVE METABOLIC PANEL (CMP) Routine 09/20/2018 9:04 EDT documented in this encounter Results * (ABNORMAL) LIPID PROFILE (INCLUDES CHOLESTEROL, TRIGLYCERIDES, HDL, LDL) (09/20/2018 9:04 EDT) Triglyceride 117 <150 mg/dL 09/20/2018 14:09 EDT [facility] Comment: Adult: Normal: ?<150 mg/dl ? Borderline High: 150-199 mg/dl ? High: ?200-499 mg/dl ? Very High: >ww=487 Cholesterol 205(H) <200 mg/dL 09/20/2018 10:01 EDT [facility] Comment: Acceptable: ??<200 Borderline: ??200-239 High: ?> or = 240 Chol/HDL Ratio 4.1 0 - 4.5 09/20/2018 10:01 EDT [facility] Comment: DESIRABLE RATIO IS LESS THAN 4.1 PATIENTS ARE CONSIDERED AT RISK: WOMEN RATIO >5 MEN RATIO >6 FASTING? - [facility] Unknown 9 9:05 [facility] HDL 50 40 - 60 mg/dL 09/20/2018 10:01 [facility] Comment: ?? Reference Range Low: ? < 40 ??mg/dL Normal: ??40-60 mg/dL High: ?>= 60 mg/dL LDL CHOLESTEROL - [facility] 132(H) 60 - 100 mg/dL 09/20/2018 14:09 [facility] Non HDL Cholesterol 155 mg/dl 09/20/2018 10:01 [facility] Comment: Desirable: ?Less than 130 Borderline High: ??130-159 High: ? 160-189 Very High: ?Greater than or equal to 190 09/20/2018 9:04 EDT 09/20/2018 9:04 EDT Narrative [facility] - 09/20/2018 14:09 EDT Does PT Have a Latex Allergy? NO Nancy Wyatt ND CHEMISTRY & BLOOD GA S ORDERABLES Performing Organization Address City/[facility]/ZIP Co de Phone Number [facility] * LIPASE (09/20/2018 9:04 EDT) Lipase 81 <251 U/L 09/20/2018 10:01 EDT [facility] 09/20/2018 9:04 EDT 09/20/2018 9:04 EDT Narrative [facility] - 09/20/2018 14:09 EDT Does PT Have a Latex Allergy? NO Nancy Wyatt ND CHEMISTRY & BLOOD GA S ORDERABLES [facility] * (ABNORMAL) C REACTIVE PROTEIN (09/20/2018 9:04 EDT) [facility] [address] C-Reactive Protein 17.6(H) <10.0 mg/L 09/20/2018 10:01 [facility] 09/20/2018 9:04 EDT 09/20/2018 9:04 EDT Narrative [facility] - 09/20/2018 14:09 EDT Does PT Have a Latex Allergy? NO Nancy Wyatt ND CHEMISTRY & BLOOD GA S ORDERABLES [facility] * (ABNORMAL) COMPREHENSIVE METABOLIC PANEL (CMP) (09/20/2018 9:04 EDT) [facility] [address] Albumin % 4.3 3.4 - 4.9 g/dL 09/20/2018 10:01 [facility] ALKALINE PHOSPHATASE - [facility] 88 38 - 126 U/L 09/20/2018 10:01 [facility] BILIRUBIN TOTAL 0.8 0.2 - 1.3 mg/dL 09/20/2018 10:01 [facility] BUN - [facility] 10 10 - 26 mg/dL 09/20/2018 10:01 [facility] CALCIUM - [facility] 9.4 8.5 - 10.5 mg/dL 09/20/2018 10:01 [facility] Chloride 103 96 - 110 mmol/L 09/20/2018 10:01 [facility] CO2 Total 21(L) 22 - 32 mEq/L 09/20/2018 10:01 [facility] CREATININE 0.71 0.52 - 1.04 mg/dL 09/20/2018 10:01 [facility] eGFR >60 09/20/2018 10:01 [facility] Comment: Chronic renal impairment is defined as GFR <60 Multiply result by 1.210 for patients. eGFR calculated using the IDMS-traceable MDRD Study Equation. ??(effective 05/07/2014) Anion Gap 14 0 - 18 09/20/2018 10:01 [facility] GLUCOSE - [facility] 86 70 - 100 mg/dL 09/20/2018 10:01 EDT [facility] Potassium 4.4 3.5 - 5.0 mEq/L 09/20/2018 10:01 EDT [facility] Sodium 138 136 - 145 mEq/L 09/20/2018 10:01 EDT [facility] TOTAL PROTEIN - [facility] 7.9 6.2 - 8.2 gm/dL 09/20/2018 10:01 EDT [facility] SGOT/AST - [facility] 28 14 - 36 U/L 09/20/2018 10:01 EDT [facility] SGPT/ALT - [facility] 26 9 - 52 U/L 9 10:01 EDT [facility] 09/20/2018 9:04 EDT 09/20/2018 9:04 EDT [facility] - 09/20/2018 14:09 EDT Does PT Have a Latex Allergy? NO Nancy Wyatt ND CHEMISTRY & BLOOD GA S ORDERABLES [facility] * AMYLASE (09/20/2018 9:04 EDT) Amylase 64 30 - 110 U/L 09/20/2018 10:01 EDT [facility] 09/20/2018 9:04 EDT 09/20/2018 9:04 EDT Narrative [facility] - 09/20/2018 14:09 EDT Does PT Have a Latex Allergy? NO Nancy Wyatt [place] CHEMISTRY & BLOOD GA S ORDERABLES [facility] * VIT D, 25-HYDROXY - [facility] (09/20/2018 9:04 EDT) VIT D, 25 HYDROXY - [facility] 34.6 30 - 100 ng/ml 09/20/2018 11:00 EDT [facility] Comment: ? 25-Hydroxy D Total (D2+D3) ?Expected Values Deficient: ?<20 ng/ml Insufficient: ? 20- <30 ng/ml Sufficient: ? 30-100 ng/ml Potential intoxication: >100 ng/ml 09/20/2018 9:04 EDT 09/20/2018 9:04 EDT [facility] - 09/20/2018 11:00 EDT Does PT Have a Latex Allergy? NO Nancy Wyatt ND CHEMISTRY & BLOOD GA S ORDERABLES Performing Organization Address [facility]/ZIP Co de Phone Number [facility] * TSH (09/20/2018 9:04 EDT) [facility] [address] THYROID STIM HORMONE [facility] 1.26 0.46 - 4.68 uIU/ml 09/20/2018 11:00 EDT [facility] Comment: The results of this assay can be falsely lowered due to the consumption of Biotin. 09/20/2018 9:04 EDT 09/20/2018 9:04 EDT [facility] - 09/20/2018 11:00 EDT Does PT Have a Latex Allergy? NO Nancy Wyatt ND CHEMISTRY & BLOOD GA S ORDERABLES Performing Organization Address [facility]/ZIP Co de Phone Number [facility] * T4 FREE (09/20/2018 9:04 EDT) [facility] [address] [facility] FREE T4 [facility] 1.39 0.78 - 2.19 ng/dl 09/20/2018 11:00 EDT [facility] 09/20/2018 9:04 EDT 09/20/2018 9:04 EDT [facility] - 09/20/2018 11:00 EDT Does PT Have a Latex Allergy? NO Nancy Wyatt ND CHEMISTRY & BLOOD GA S ORDERABLES [facility] * FOLATE (09/20/2018 9:04 EDT) Pathologist [facility] FOLIC ACID - [facility] 19.70 2.76- >20.0 ng/mL 09/20/2018 11:00 EDT [facility] Comment: The results of this assay can be falsely elevated due to the consumption of Biotin. 09/20/2018 9:04 EDT 09/20/2018 9:04 EDT [facility] - 09/20/2018 11:00 EDT Does PT Have a Latex Allergy? NO Nancy Wyatt ND CHEMISTRY & BLOOD GA S ORDERABLES Performing Organization Address [facility] Co de Phone Number [facility] * VITAMIN B12 (09/20/2018 9:04 EDT) [facility] [address] [facility] VITAMIN B12 - [facility] 352 239 - 931 pg/mL 09/20/2018 11:00 EDT [facility] Comment: The results of this assay can be falsely elevated due to the consumption of Biotin. 09/20/2018 9:04 EDT 09/20/2018 9:04 EDT [facility] - 09/20/2018 11:00 EDT Does PT Have a Latex Allergy? NO Nancy Wyatt ND CHEMISTRY & BLOOD GA S ORDERABLES Performing Organization Address City/[facility]/ZIP Co de Phone Number [facility] * HEMOGLOBIN A1C (09/20/2018 9:04 EDT) [facility] [address] Hemoglobin A1c 5.7 4.0 - 6.0 % 09/20/2018 12:54 EDT [facility] Comment: > or =18 years: ??Increased risk for diabetes (prediabetes): 5.7-6.4% Diabetes: > or =6.5% Therapeutic goals for glycemic control (ADA) Adults: - Goal of therapy: <7.0% HbA1c - Action suggested: >8.0% HbA1c Pediatric patients: - Toddlers and preschoolers: <8.5% (but >7.5%) - School age (6-12 years): <8% - Adolescents and young adults (13-19 years): <7.5% Est Avg Glucose 117 mg/dL 9 12[facility] 09/20/2018 9:04 EDT 09/20/2018 9:04 EDT Narrative [facility] - 09/20/2018 12:54 EDT Does PT Have a Latex Allergy? NO Nancy Yoselin [place] CHEMISTRY & BLOOD GA S ORDERABLES [facility] * (ABNORMAL) COMPLETE BLOOD COUNT WITH DIFFERENTIAL (AUTO) (09/20/2018 9:04 EDT) ABSOLUTE NEUTROPHIL COUN - [facility] 6.1 2.2 - 8.85 10e3/uL 09/20/2018 9:33 [facility] BASO # - [facility] 0.04 0.01 - 0.11 10e/uL 09/20/2018 9:33 [facility] BASO % - [facility] 0 0 - 2 % 09/20/2018 9:33 [facility] EOS # - [facility] 0.22 0.03 - 0.61 10e3/ul 09/20/2018 9:33 [facility] EOS % - [facility] 2 0 - 5 % 09/20/2018 9:33 [facility] GRAN % - [facility] 58.1 40 - 80 % 09/20/2018 9:33 [facility] HEMATOCRIT - [facility] 43.3 34.9 - 44.4 % 09/20/2018 9:33 [facility] HEMOGLOBIN - [facility] 13.9 11.6 - 15.2 g/dl 09/20/2018 9:33 [facility] IG# - [facility] 0.03 0 - 0.7 10e3/uL 09/20/2018 9:33 [facility] IG% - [facility] 0.3 0 - 0.9 % 09/20/2018 9:33 [facility] LYMPH # - [facility] 3.4(H) 1.09 - 3.3 10e3/ul 09/20/2018 9:33 [facility] LYMPH% - [facility] 32.6 20 - 40 % 09/20/2018 9:33 [facility] MEAN CORPUSCULAR HGB - [facility] 27.4 26.7 - 33.3 pg 09/20/2018 9:33 [facility] MEAN CORPUSCULAR HGB CONC - [facility] 32.1 32.1 - 35.9 g/dL 09/20/2018 9:33 [facility] MEAN CELL VOLUME - [facility] 85.4 81 - 98 fl 09/20/2018 9:33 [facility] MONO # - [facility] 0.7 0.1 - 0.8 e3/uL 09/20/2018 9:33 [facility] MONO% - [facility] 6.5 0 - 12 % 09/20/2018 9:33 [facility] PLATELET COUNT 496(H) 141 - 377 e3/ul 09/20/2018 9:33 [facility] RED BLOOD COUNT - [facility] 5.07(H) 3.86 - 5.04 10e3/ul 09/20/2018 9:33 [facility] RED CELL DISTRI WIDTH - [facility] 14.4 <14.7 % 09/20/2018 9:33 [facility] WHITE BLOOD COUNT - [facility] 10.5 4.0 - 12.4 e3/ 09/20/2018 9:33 [facility] 09/20/2018 9:04 EDT 09/20/2018 9:04 EDT [facility] - 09/20/2018 9:33 EDT Does PT Have a Latex Allergy? NO Nancy Wyatt ND HEMATOLOGY & PF4 ORD ERABLES [facility] * THYROPEROXIDASE ANTIBODY (09/20/2018 9:04 EDT) Thyroperoxidase Ab <28 <61 U/mL 2018 16:20 EDT [facility] Comment: Test performed or referred by The [address] [address] 09/20/2018 9:04 EDT 09/20/2018 9:04 EDT Narrative [facility] - 09/21/2018 16:20 EDT Does PT Have a Latex Allergy? NO Nancy Wyatt ND CHEMISTRY & BLOOD GA S ORDERABLES [facility] documented in this encounter Visit Diagnoses Not on filedocumented in this encounter Care Teams Pediatric Occupational Therapist Relationship Specialty Start Date End Date None, Provider PCP - General 04/02/15 02/12/19 Serafin Saucedo MD [address] [place] [phone] PCP - General 02/13/19 04/25/20 documented as of this encounter
--- OUTSIDE RECORDS SUMMARY | 2024-03-14 18:00 | XMS_ITS | Encounter Summary ---
Author Organization [facility] Address [address] [place] [address] Care Team Providers Care Scientific Photographer Name Role Phone None, Provider Primary Care Provider Unavailabl e Encounter Details Date Type Department Care Team (Latest Contact Info) Description 01/10/2018 13:17 EDT - 01/10/2018 23:59 EDT Hospital Encounter [address] [address] Unknown, Provider, Discharge Disposition: Home or Self [...] Code Departure Means Destination Home or Self Jail documented in this encounter Plan of Treatment Upcoming Encounters Date Type Department Care Team (Late st Contact Info) Description 03/23/2024 11:15 EDT Telemedicine [facility] Rheumatology [address] [place], [place] [address] Venecia Vega MD [address] [facility] [address] [place] [phone] documented as of this encounter Visit Diagnoses Not on filedocumented in this encounter Care Teams Scientific Photographer Relationship Specialty Start Date End Date None, Provider PCP - General 04/02/15 02/12/19 documented as of this encounter
--- OUTSIDE RECORDS SUMMARY | 2024-03-14 18:00 | XMS_ITS | Encounter Summary ---
Author Organization [facility] Address [address] [place] [address] Care Team Providers Care Controller Repairer And Tester Name Role Phone Serafin Saucedo MD Primary Care Provider [phone] Encounter Details Date Type Department Care Team (Late st Contact Info) Description 08/15/2019 Results Only [facility] Rheumatology [address] [place] [address] Venecia Vega MD [address] [place] [address] [place] [address] Social History Tobacco Use Types [...] EDT Telemedicine [facility] Rheumatology [address] [place] [address] Venecia Vega MD [address] [facility] [address] [place] [address] documented as of this encounter Procedures Procedure Name Priority Date/Time Associated Diagnosis Comments COMPLETE BLOOD COUNT WITH DIFFERENTIAL (AUTO) Routine 08/15/2019 8:58 EST COMPREHENSIVE METABOLIC PANEL (CMP) Routine 08/15/2019 8:58 EST documented in this encounter Results * COMPREHENSIVE METABOLIC PANEL (CMP) (08/15/2019 8:58 EST) Albumin % 4.4 3.4 - 4.9 g/dL 08/15/2019 10:04 [facility] ALKALINE PHOSPHATASE - [facility] 71 38 - 126 U/L 08/15/2019 10:04 [facility] BILIRUBIN TOTAL 0.4 0.2 - 1.3 mg/dL 08/15/2019 10:04 [facility] BUN - [facility] 13 10 - 26 mg/dL 08/15/2019 10:04 [facility] CALCIUM - [facility] 9.4 8.5 - 10.5 mg/dL 08/15/2019 10:04 [facility] Chloride 103 96 - 110 mmol/L 08/15/2019 10:04 [facility] CO2 Total 25 22 - 32 mEq/L 08/15/2019 10:04 [facility] CREATININE 0.72 0.52 - 1.04 mg/dL 08/15/2019 10:04 [facility] eGFR >60 08/15/2019 10:04 [facility] Comment: Chronic renal impairment is defined as GFR <60 Multiply result by 1.210 for patients. eGFR calculated using the IDMS-traceable MDRD Study Equation. ??(effective 05/07/2014) Anion Gap 11 0 - 18 08/15/2019 10:04 [facility] GLUCOSE - [facility] [place] 90 70 - 100 mg/dL 08/15/2019 10:04 [facility] Potassium 4.6 3.5 - 5.0 mEq/L 08/15/2019 10:04 [facility] Sodium 139 136 - 145 mEq/L 08/15/2019 10:04 [facility] TOTAL PROTEIN - [facility] 7.8 6.2 - 8.2 gm/dL 08/15/2019 10:04 [facility] SGOT/AST - [facility] [place] 26 14 - 36 U/L 08/15/2019 10:04 [facility] SGPT/ALT - [facility] 24 0 - 35 U/L 0 10:04 [facility] 08/15/2019 8:58 EST 08/15/2019 9:03 [facility] - 08/15/2019 10:04 EST Does PT Have a Latex Allergy? NO Venecia Vega MD CHEMISTRY & BLOO D GAS ORDERABLES [facility] * (ABNORMAL) COMPLETE BLOOD COUNT WITH DIFFERENTIAL (AUTO) (08/15/2019 8:58 EST) Gran # 9.6(H) 2.2 - 8.85 10e3/uL 08/15/2019 9:59 [facility] BASO # - [facility] 0.06 0.01 - 0.11 10e/uL 08/15/2019 9:59 [facility] BASO % - [facility] 0 0 - 2 % 08/15/2019 9:59 [facility] EOS # - [facility] 0.45 0.03 - 0.61 10e3/ul 08/15/2019 9:59 [facility] EOS % - [facility] 3 0 - 5 % 08/15/2019 9:59 [facility] GRAN % - [facility] 67.2 40 - 80 % 08/15/2019 9:59 [facility] HEMATOCRIT - [facility] 41.5 34.9 - 44.4 % 08/15/2019 9:59 [facility] HEMOGLOBIN - [facility] 13.2 11.6 - 15.2 g/dl 08/15/2019 9:59 [facility] IG# - [facility] [place] 0.05 0 - 0.7 10e3/uL 08/15/2019 9:59 [facility] IG% - [facility] 0.3 0 - 0.9 % 08/15/2019 9:59 [facility] LYMPH # - [facility] 3.2 1.09 - 3.3 10e3/ul 08/15/2019 9:59 [facility] LYMPH% - [facility] 22.0 20 - 40 % 08/15/2019 9:59 [facility] MEAN CORPUSCULAR HGB - [facility] [place] 28.4 26.7 - 33.3 pg 08/15/2019 9:59 [facility] MEAN CORPUSCULAR HGB CONC - [facility] 31.8(L) 32.1 - 35.9 g/dL 08/15/2019 9:59 [facility] MEAN CELL VOLUME - [facility] 89.2 81 - 98 fl 08/15/2019 9:59 [facility] MONO # - [facility] 1.0(H) 0.1 - 0.8 10e3/uL 08/15/2019 9:59 [facility] MONO% - [facility] 7.0 0 - 12 % 08/15/2019 9:59 [facility] PLATELET COUNT 464(H) 141 - 377 10e3/ul 08/15/2019 9:59 [facility] RED BLOOD COUNT - [facility] [place] [place] 4.65 3.86 - 5.04 10e3/ul 08/15/2019 9:59 [facility] RED CELL DISTRI WIDTH - [facility] [place] 14.8 <14.7 % 08/15/2019 9:59 [facility] WHITE BLOOD COUNT - [facility] [place] 14.3(H) 4.0 - 12.4 10e3/ul 08/15/2019 9:59 [facility] 08/15/2019 8:58 EST 08/15/2019 9:03 EST [facility] - 08/15/2019 9:59 EST Does PT Have a Latex Allergy? NO Venecia Vega MD HEMATOLOGY & PF4 ORDERABLES [facility] documented in this encounter Visit Diagnoses Not on filedocumented in this encounter Care Teams Controller Repairer And Tester Relationship Specialty Start Date End Date Serafin Saucedo MD [address] [place] [address] PCP - General 02/13/19 04/25/20 documented as of this encounter
--- OUTSIDE RECORDS SUMMARY | 2024-03-14 18:00 | XMS_ITS | Encounter Summary ---
Author Organization [facility] Address [address] [place] [address] Care Team Providers Care Sheriff Name Role Phone None, Provider Primary Care Provider Serafin Zapata MD Primary Care Provider [phone] Encounter Details Date Type Department Care Team (Late st Contact Info) Description 03/01/2018 Historical Results Only [facility] - Main [place] [address] [place] [address] Venecia Vega MD [address] [place] [address] [address] Social History Tobacco Use Types Packs/Day [...] [facility] Rhe[facility] [address] [place] [address] Venecia Vega MD [address] [place] [address] [address] documented as of this encounter Procedures Procedure Name Priority Date/Time Associated Diagnosis Comments COMPLETE BLOOD COUNT WITH DIFFERENTIAL (AUTO) Routine 03/01/2018 16:00 EDT LYME AB Routine 03/01/2018 16:00 EDT ZZLYME IMMUNOBLOT CONFIRMATION Routine 03/01/2018 16:00 EDT TSH Routine 03/01/2018 16:00 EDT COMPREHENSIVE METABOLIC PANEL (CMP) Routine 03/01/2018 16:00 EDT documented in this encounter Results * (ABNORMAL) COMPREHENSIVE METABOLIC PANEL (CMP) (03/01/2018 16:00 EDT) [facility] Albumin % 3.9 3.4 - 4.9 g/dL 03/01/2018 17:42 [facility] ALKALINE PHOSPHATASE - [facility] 85 38 - 126 U/L 03/01/2018 17:42 [facility] BILIRUBIN TOTAL 0.3 0.2 - 1.3 mg/dL 03/01/2018 17:42 [facility] BUN - [facility] 8(L) 10 - 26 mg/dL 03/01/2018 17:42 [facility] CALCIUM - [facility] 8.9 8.5 - 10.5 mg/dL 03/01/2018 17:42 [facility] Chloride 105 96 - 110 mmol/L 03/01/2018 17:42 [facility] CO2 Total 25 22 - 32 mEq/L 03/01/2018 17:42 [facility] CREATININE 0.69 0.52 - 1.04 mg/dL 03/01/2018 17:42 [facility] eGFR >60 03/01/2018 17:42 [facility] Comment: Chronic renal impairment is defined as GFR <60 Multiply result by 1.210 for patients. eGFR calculated using the IDMS-traceable MDRD Study Equation. ??(effective 05/07/2014) Anion Gap 12 0 - 18 03/01/2018 17:42 [facility] GLUCOSE - [facility] 98 70 - 100 mg/dL 03/01/2018 17:42 [facility] Potassium 4.3 3.5 - 5.0 mEq/L 03/01/2018 17:42 EDT [facility] Sodium 142 136 - 145 mEq/L 03/01/2018 17:42 EDT [facility] TOTAL PROTEIN - [facility] 7.5 6.2 - 8.2 gm/dL 03/01/2018 17:42 EDT [facility] SGOT/AST - [facility] 47(H) 14 - 36 U/L 03/01/2018 17:42 EDT [facility] SGPT/ALT - [facility] 72(H) 9 - 52 U/L 8 17:42 EDT [facility] 03/01/2018 16:0 0 EDT 03/01/2018 16:[address] [facility] - 03/01/2018 17:42 EDT Does PT Have a Latex Allergy? NO Venecia Vega MD CHEMISTRY & BLOO D GAS ORDERABLES Performing Organization Address [facility]/ZIP Co de Phone Number [facility] * TSH (03/01/2018 16:00 EDT) [facility] THYROID STIM HORMONE - [facility] 1.18 0.46 - 4.68 uIU/ml 03/01/2018 18:14 EDT [facility] Comment: The results of this assay can be falsely lowered due to the consumption of Biotin. 03/01/2018 16:0 0 EDT 03/01/2018 16:[address] [facility] - 03/01/2018 18:14 EDT Does PT Have a Latex Allergy? NO Venecia Vega MD CHEMISTRY & BLOO D GAS ORDERABLES [facility] * LYME AB (03/01/2018 16:00 EDT) [facility] Lyme Ab IgG NEGATIVE 03/02/2018 12:26 EDT [facility] Lyme Ab POSITIVE 03/02/2018 12:26 EDT [facility] Comment:Reflex to Western Bl ot has been ordered. 03/01/2018 16:0 0 EDT 03/01/2018 16:00 EDT Narrative [facility] - 03/02/2018 12:26 EDT Does PT Have a Latex Allergy? NO Venecia Vega MD IMMUNOLOGY AND S EROLOGY ORDERABLES [facility] * (ABNORMAL) COMPLETE BLOOD COUNT WITH DIFFERENTIAL (AUTO) (03/01/2018 16:00 EDT) ABSOLUTE NEUTROPHIL COUN - [facility] 5.49 1.7 - 7.0 10e3/ul 03/01/2018 17:26 EDT [facility] BASO # - [facility] 0.05 0.0 - 0.3 10e3/uL 03/01/2018 17:26 [facility] BASO % - [facility] 0 0 - 2 % 03/01/2018 17:26 [facility] EOS # - [facility] 0.37 0.05 - 0.5 10e3/uL 03/01/2018 [facility] % [facility] 3 0 - 5 % 03/01/2018 17:26 [facility] GRAN % - [facility] 46 40 - 80 % 03/01/2018 17:26 [facility] HEMATOCRIT - [facility] 40.9 34.0 - 47.0 % 03/01/2018 17:26 [facility] HEMOGLOBIN - [facility] 13.1 11.2 - 15.7 g/dl 03/01/2018 17:26 T [facility] IG# - [facility] 0.02 0 - 0.07 10e3/uL 03/01/2018 17:26 [facility] IG% - [facility] 0.2 0 - 0.9 % 03/01/2018 17:26 [facility] LYMPH # - [facility] 5.29(H) 0.9 - 2.9 10e3/uL 03/01/2018 17:26 [facility] LYMPH% - [facility] 44(H) 20 - 40 % 03/01/2018 17:26 [facility] MEAN CORPUSCULAR HGB - [facility] 28.1 26 - 34 pg 03/01/2018 17:26 [facility] MEAN CORPUSCULAR HGB CONC - [facility] 32.0 31 - 36 g/dL 03/01/2018 17:26 [facility] MEAN CELL VOLUME - [facility] 87.6 77 - 100 fl 03/01/2018 17:26 [facility] MONO # - [facility] 0.82 0.3 - 0.9 10e3/uL 03/01/2018 17:26 [facility] MONO% - [facility] 7 0 - 12 % 03/01/2018 17:26 [facility] PLATELET COUNT 465(H) 150 - 400 10e3/ul 03/01/2018 17:26 [facility] RED BLOOD COUNT - [facility] 4.67 3.8 - 5.2 10e6/ul 03/01/2018 17:26 [facility] RED CELL DISTRI WIDTH - [facility] 14.3 11.8 - 15.6 % 03/01/2018 17:26 [facility] WHITE BLOOD COUNT - [facility] 12.0(H) 3.5 - 10.5 10e3/ul 03/01/2018 17:26 [facility] 03/01/2018 16:0 0 EDT 03/01/2018 16:00 EDT Narrative [facility] - 03/01/2018 17:26 EDT Does PT Have a Latex Allergy? NO Venecia Vega MD HEMATOLOGY & PF4 ORDERABLES [facility] * LYME IMMUNOBLOT CONFIRMATION (03/01/2018 16:00 EDT) Lyme IGG Bands SEE COMMENTS () kDa 03/04/20 18 16:05 [facility] Comment:No bands detected. Lyme IGM Band(s) p23 () kDa 03/04/20 18 16:05 [facility] Lyme IgM ImmunoBlot Negative () 03/04/2018 16:05 EDT [facility] Comment:Reference Range: Neg ative Lyme Immunoblot Interpretation SEE COMMENTS () 03/04/2018 16:05 EDT [facility] Comment: Specific serologic response to B. burgdorferi infection is not detected. ??This may indicate lack of infection, lack of seroconversion or low/undetectable antibody levels to B. burgdorferi. ??If clinically indicated, a new serum specimen should be submitted in 7-14 days. ?? CDC criteria requires >=5 bands for IgG or >=2 bands for IgM for the Western blot to be considered postiive. ??Bands may be detected in patients without Lyme disease. Patterns not meeting CDC criteria should be interpreted with caution. ?? Per CDC guidelines, Western blot testing should only be performed on specimens that are positive or equivocal by Immunoassay. Performing only the Western blot increases the possibility of false positive results. Results should be considered positive only when both the immunoassay and the Western blot are positive. Test Performed by: THE [address] [address] Lyme IGG ImmunoBlot Negative () 03/04/2018 16:05 EDT [facility] Comment:Reference Range: Neg ative 03/01/2018 16:0 0 EDT 03/01/2018 16:00 EDT Venecia Vega MD IMMUNOLOGY AND S EROLOGY ORDERABLES [facility] documented in this encounter Visit Diagnoses Not on filedocumented in this encounter Care Teams Sheriff Relationship Specialty Start Date End Date None, Provider PCP - General 04/02/15 02/12/19 Serafin Saucedo MD [address] [place] [phone] PCP - General 02/13/19 04/25/20 documented as of this encounter
--- OUTSIDE RECORDS SUMMARY | 2024-03-14 18:00 | XMS_ITS | Encounter Summary ---
Author Organization [facility] Address [address] [place] [address] Care Team Providers Care Street Light Inspector Name Role Phone Serafin Saucedo MD Primary Care Provider [phone] Reason for Visit * Reason Comments Otalgia Encounter Details Date Type Department Care Team (Late st Contact Info) Description 05/15/2019 13:15 EST Walk-In [facility] [address] [place] [phone] Yolanda Clifford MD [address] [facility] [address] [place] [address] Recurrent acute serous otitis media of both ears (Primary Dx) Social History Tobacco Use Types [...] Sign Reading Time Taken Comments Blood Pressure 120/80 05/15/2019 1318 EST Pulse 71 05/15/2019 1318 EST Temperature 36.9 ??C (98.5 ??F) 05/15/2019 1318 EST Respiratory Rate 16 05/15/2019 1318 EST Oxygen Saturation 98% 05/15/2019 1318 EST Inhaled Oxygen Concentration - - Weight - - Height - - Body Mass Index - - documented in this encounter Patient Instructions * Patient Instructions* Yolanda Clifford MD, MD - 05/15/2019 13:15 EST 1. Continue to encourage fluids. 2. Elevate head with rest. 3. I would use the nasal spray for at least 2 weeks, then recommence with onset of any nasal congestion. 4. RETURN TO CLINIC for fever of late onset, increasing ear or facial pain, recurrent vomiting. documented in this encounter Ordered Prescriptions Prescription Sig Dispensed Refills Start Date End Da te fluticasone propionate (FLONASE) 50 mcg/actuation nasal sprayIndications:Recurre nt acute serous otitis media of both ears Instill 1 Whittaker into both nostrils daily. 1 Bottle 2 05/15/2019 amoxicillin (AMOXIL) 875 mg tabletIndications:Recurr ent acute serous otitis media of both ears Take 1 Tab by mouth 2 times daily for 7 days. 14 Tab 05/15/2019 05/20/2019 documented in this encounter Progress Notes * Yolanda Clifford MD, - 05/15/2019 1315 EST [facility] Chief Complaint(s): Otalgia HPI: Arabella has had some postnasal drip the past few days. Her ears were a bit achy, uncomfortable at night. However, last night she woke up with bilateral ear pain. She used warm rice packs and 1000mg Tylenol with some relief. Took 600 mg Ibuprofen at [address] Buenrostro this past spring- he recommend FU with him if OM recurs...She DID have a nasal spray, which she hasn't used. Throat is a bit sore. No cough. Mild headache in bitemporal regions. I have reviewed current problem list and current medications. ROS: Review of Systems Constitutional: Negative for fever. Gastrointestinal: Negative for nausea and vomiting. Objective: Examination: Vitals: BP 120/80 (BP Cuff Location: Right arm) Pulse 71 Temp 36.9 ??C (98.5 ??F) (Oral) Resp 16 SpO2 98% There is no height or weight on file to calculate BMI. Physical Exam Arabella is a well-developed well-nourished woman who appears fatigued but nontoxic. HEENT exam reveals clear conjunctiva, both tympanic membranes have cloudy air- fluid levels. Bilateral maxillary sinuses are tender to palpate. Nose with boggy red turbinates and cloudy drainage. Throat has mild erythema without exudate. Neck is supple with shotty bilateral anterior cervical nodes. Heart is regular rate S1-S2 without murmur. Lungs are clear to auscultation. Extremities are without clubbing or edema. Skin is warm and dry. Assessment & Plan: 1. Recurrent acute serous otitis media of both ears - amoxicillin (AMOXIL) 875 mg tablet; Take 1 Tab by mouth 2 times daily for 7 days. Dispense: 14 Tab; Refill: 0 - fluticasone propionate (FLONASE) 50 mcg/actuation nasal spray; Instill 1 Whittaker into both nostrilsdaily. Dispense: 1 Bottle; Refill: 2 1. Continue to encourage fluids. 2. Elevate head with rest. 3. I would use the nasal spray for at least 2 weeks, then recommence with onset of any nasal congestion. 4. RETURN TO CLINIC for fever of late onset, increasing ear or facial pain, recurrent vomiting. documented in this encounter Plan of Treatment Upcoming Encounters Date Type Department Care Team (Late st Contact Info) Description 03/23/2024 11:15 EDT Telemedicine [facility] Rheumatology [address] [place] [address] Venecia Vega MD [address] [place] [address] [place] [address] documented as of this encounter Visit Diagnoses Diagnosis Recurrent acute serous otitis media of both ears- Primary Acute serous otitis media documented in this encounter Historical Medications * This list may reflect changes made after this encounter. Medication Sig Dispensed Refills Start Date End Date omeprazole (PRILOSEC) 20 mg capsule 04/12/2019 11/28/2019 ibuprofen (MOTRIN) 200 mg tabletIndications:pain Take 200 mg by mouth every 6 hours as needed. 09/07/2019 added in this encounter Care Teams Street Light Inspector Relationship Specialty Start Date End Date Serafin Saucedo MD [address] [place] [phone] PCP - General 02/13/19 04/25/20 documented as of this encounter
--- OUTSIDE RECORDS SUMMARY | 2024-03-14 18:00 | XMS_ITS | Encounter Summary ---
Author Organization [facility] Address [address] [place] [address] Care Team Providers Care Steam Plant Operator Name Role Phone Serafin Saucedo MD Primary Care Provider [phone] Reason for Visit * Reason Comments Medication Management Joint Pain Encounter Details Date Type Department Care Team (Latest Contact Info) Description 10/12/2019 15:15 EDT Telemedicine [facility] [place] [address] [place] [address] Venecia Vega MD [address] [facility] [address] [place] [phone] Spondyloarthropathy (Primary Dx); Encounter for long-term (current) [...] * Patient Instructions* Venecia Vega MD - 10/12/2019 15:15 EDT Add hq Video visit in 4 weeks . documented in this encounter Ordered Prescriptions Prescription Sig Dispensed Refills Start Date End Da te hydroxychloroquine (PLAQUENIL) 200 mg tabletIndications:Spondylo arthropathy Take 1 Tab by mouth daily. 30 Tab 3 10/12/2019 11/10/2019 documented in this encounter Progress Notes * Venecia Vega MD - 10/12/2019 1515 EDT [facility] [place] Verbal consent: The concept of ???Telemedicine?? has [...] medical or mental health care. Verbal consent obtained: yes. Spondyloarthropathy 2017 Knee effusions. Mouth issues methotexate/did not tolerate needles with enbrel/humira. Infliximab effective, caused headaches. Tug Captain [phone]. Allopath rx again Fall 2018 added sulfasalazine/low dose prednisone Subjective: Chief Complaint(s): Knee effusion HPI: Both knees are swollen. Prednisone 5 mg in am and no naprosyn.Some mild improvement in pain with prednisone. Swelling still present. Affects both. Willing to try plaquenil 200 mg day. Continues with sulfasalazine 2000 mg daily. Has been sleeping. Able to get up the stairs if she has to. Less mobile. Kids are helping. NO gi isses I have reviewed patient's tobacco history: reports that she has never smoked. She has never used smokeless tobacco. I have reviewed current problem list and current medications. ROS: ROS No rash, no fevers no chills. No sick contacts. Objective: Examination: Home Vitals: There were no vitals taken for this visit. Pertinent exam findings: previous photos of knees show bilateral large knee effusions. [place] those. States effusions slightly better. Data reviewed with patient: Reviewed chart/Labs Lab Results Component Value Date WBC PRESENT 05/22/2016 HGB 13.2 08/15/2019 MCV 89.2 08/15/2019 PLT 464 (H) 08/15/2019 Lab Results Component Value Date CREATININE 0.72 08/15/2019 Lab Results Component Value Date CRP 17.6 (H) 09/20/2018 Assessment & Plan: 1. Spondyloarthropathy hydroxychloroquine (PLAQUENIL) 200 mg tablet SSZ Prednisone 5 mgday Add hq 200 mg Aware needs COVID precautions (not clear Hq protects) 2. Encounter for long-term (current) use of medications Continue prednisone 5 mg add plaqeunil 200 mg daily (se rash/nausea/eyes) continue sulfasalazine Reviewed needs COVID precautions despite HQ Patient initiated phone contact with the office: yes. Patient is an established patient (parent, guardian) yes. E/M provided within previous 7 days for same medical assessment: no Anticipate E/M service within 24hrs or next available urgent appointment no. This visit was conducted by telephone. I spent a total of 12 minutes in discussion with the patientas described in the progress note. documented in this encounter Plan of Treatment Upcoming Encounters Date Type Department Care Team (Late st Contact Info) Description 03/23/2024 11:15 EDT Telemedicine [facility] Rheumatology [address] [place], [place] [address] Venecia Vega MD 130 [facility] [address] [place] [address] documented as of this encounter Visit Diagnoses Diagnosis Spondyloarthropathy- Primary Spondylosis of unspecified site without mention of myelopathy Encounter for long-term (current) use of medications Encounter for long-term (current) use of other medications documented in this encounter Care Teams Steam Plant Operator Relationship Specialty Start Date End Date Serafin Saucedo MD [address] [place] [phone] PCP - General 02/13/19 04/25/20 documented as of this encounter
--- OUTSIDE RECORDS SUMMARY | 2024-03-14 18:00 | XMS_ITS | Encounter Summary ---
Author Organization [facility] Address [address] [place] [address] Care Team Providers Care Nurse Researcher Name Role Phone None, Provider Primary Care Provider Serafin Zapata MD Primary Care Provider [phone] Encounter Details Date Type Department Care Team (Late st Contact Info) Description 12/06/2018 Historical Results Only [facility] Radiology Results [address] [place] [address] Agus Rutledge PA-C [address] [place] [phone] Social History Tobacco Use Types Packs/Day Years Used Date Smoking Tobacco: Never Assessed Sex and Gender Information Value Date Recorded Sex Assigned at Not on file Gender Identity Female 07/04/2019 11:12 EST Sexual Orientation Not on file documented as of this encounter Plan of Treatment Upcoming Encounters Date Type Department Care Team (Late st Contact Info) Description 03/23/2024 11:15 EDT Telemedicine [facility] Rheumatology [address] [place], [place] [phone] Venecia Vega MD 130 [facility] [address] [place] [phone] documented as of this encounter Procedures Procedure Name Priority Date/Time Associated Diagnosis Comments XR HAND LEFT 3 OR MORE VIEWS 12/06/2018 21:12 EDT documented in this encounter Results * XR HAND LEFT 3 OR MORE VIEWS (12/06/2018 21:12 EDT) Anatomical Region Laterality Modality Upper Extremities Left Other 12/06/2018 21:1 2 EDT Narrative 12/06/2018 21:13 EDT ? EXAM: RADIOLOGY/HAND LEFT 3+VIEW ?EX. D/ (2043) ? CLINICAL INFORMATION: ? left hand swelling 5 metacarpal, proximal ? EXAM: ?XR Left Hand ? EXAM DATE/TIME: ?12/06/2018 8:08 PM ? CLINICAL HISTORY: ?33 years old, female; Signs and symptoms; Swelling; Hand; Left; ? Additional info: Left hand swelling 5 metacarpal, proximal ? TECHNIQUE: ?Imaging protocol: XR Left hand. ?Views: 3 or more views. ? COMPARISON: ?No relevant prior studies available. ? FINDINGS: ?Bones/joints: Normal. ?Soft tissues: Normal. ? IMPRESSION: ? No acute findings. ? REPORT SIGNED IN OTHER VENDOR SYSTEM 12/06/2018 ?Reported By: Tahir Chau DO ? CC: ? Transcribed Date/Time: 12/06/2018 (2113) ? Brim Ironer Hand: ? Printed Date/Time: 03/22/2019 (5370) ? PAGE 1 ? Signed Report ? Procedure Note Tahir Chau DO - 05/09/2019 EXAM: RADIOLOGY/HAND LEFT 3+VIEW EX. D/ (2043) CLINICAL INFORMATION: left hand swelling 5 metacarpal, proximal EXAM: XR Left Hand EXAM DATE/TIME: 12/06/2018 8:08 PM CLINICAL HISTORY: 33 years old, female; Signs and symptoms; Swelling; Hand; Left; Additional info: Left hand swelling 5 metacarpal, proximal TECHNIQUE: Imaging protocol: XR Left hand. Views: 3 or more views. COMPARISON: No relevant prior studies available. FINDINGS: Bones/joints: Normal. Soft tissues: Normal. IMPRESSION: No acute findings. REPORT SIGNED IN OTHER VENDOR SYSTEM 12/06/2018 Reported By: Tahir Chau DO CC: Transcribed Date/Time: 12/06/2018 (4846) Brim Ironer Hand: Printed Date/Time: 03/22/2019 (2429) PAGE 1 Signed Report Agus Rutledge PA-C [facility] NG ORDERABLES documented in this encounter Visit Diagnoses Not on filedocumented in this encounter Care Teams Nurse Researcher Relationship Specialty Start Date End Date None, Provider PCP - General 04/02/15 02/12/19 Serafin Saucedo MD [address] [place] [phone] PCP - General 02/13/19 04/25/20 documented as of this encounter
--- OUTSIDE RECORDS SUMMARY | 2024-03-14 18:00 | XMS_ITS | Encounter Summary ---
Author Organization [facility] Address [address] [place] [address] Care Team Providers Care Boring Machine Set Up Operator Jig Name Role Phone Serafin Saucedo MD Primary Care Provider [phone] Reason for Visit * Reason Comments Follow-up Patient states she n otices some mild pain and discomfort in her left knee when she climbs stairs. Encounter Details Date Type Department Care Team (Latest Contact Info) Description 09/07/2019 13:45 EST Office Visit [facility] Rheumatology [address] [place], [place] [phone] Venecia Vega MD 130 [facility] [address] [place] [address] Seronegative spondyloarthropathy (HCC-CMS) (Primary Dx); High risk medication use [...] Sign Reading Time Taken Comments Blood Pressure 128/76 09/07/2019 1349 EST Pulse 81 09/07/2019 1349 EST Temperature - - Respiratory Rate - - Oxygen Saturation - - Inhaled Oxygen Concentration - - Weight 117.7 kg (259 lb 6.4 oz) 09/07/2019 1349 EST Height 170.2 cm (5' 7) 09/07/2019 1349 EST Body Mass Index 40.63 09/07/2019 1349 EST documented in this encounter Functional Status [...] * Patient Instructions* Venecia Vega MD - 09/07/2019 13:45 EST Increase the sulfasalazine to 3 pills a day - 1500 mg A day Prednisone can go to 5 mg every other day for a month then stop Minimize use of naproxen when taking prednisone due to risk of bleeding from the stomach Blood work about 3-4 weeks after increase in sulfasalazine dose. documented in this encounter Ordered Prescriptions Prescription Sig Dispensed Refills Start Date End Da te sulfaSALAzine (AZULFIDINE) 500 mg EC tabletIndications:Seronegativ e spondyloarthropathy Take 1 Tab by mouth 3 times daily. 270 Tab 3 09/07/2019 10/02/2019 predniSONE (DELTASONE) 5 mg tablet Take 1 Tab by mouth daily. Change to every other day. 30 Tab 3 09/07/2019 10/02/2019 documented in this encounter Progress Notes * Venecia Vega MD - 09/07/2019 1345 EST Division of Rheumatology and Clinical Immunology Chief Complaint Patient presents with ??? Follow-up Patient states she notices some mild pain and discomfort in her left knee when she climbs stairs. Seronegative spondyloarthropathy -dx 2017 knee effusion neg serology. Sister Crohns - teeth dark on methotrexate (stopped) Humira (did not tolerate) enbrel (did not tolerate) remicadeinfusions effective stopped to pursue naturopathic care. Rx [id number] with 15 months antibiotics/supplements prednisone. PT not effective. Rtc 06/22. Restart prednisone SSZ 06/22 HPI: 2 months on SSZ. Still pain and swelling in knees improved. Inflammation continues. Up stairs and down knee feels wobbly Added prednisone 5 mg a day. Some discoloration on nasal secretions. Recovered from influenza. Knee still feels sore on left. Still some fluid. Sleep ok. Will try more meds. Gradually getting stronger. No rash, no stomach upset Pleased to be feeling good. Wants to reduce prednisone. Current Outpatient Medications: acetaminophen (TYLENOL) 500 mg tablet Acetylcysteine (NAC) 600 mg capsule fluticasone propionate (FLONASE) 50 mcg/actuation nasal spray GRAPE SEED EXTRACT ORAL loratadine (CLARITIN) 10 mg tablet naproxen (NAPROSYN) 500 mg tablet omeprazole (PRILOSEC) 20 mg capsule oseltamivir (TAMIFLU) 75 mg capsule predniSONE (DELTASONE) 5 mg tablet ranitidine (ZANTAC) 300 mg tablet sulfaSALAzine (AZULFIDINE) 500 mg EC tablet tocopheryl acetate (VITAMIN E) 100 unit capsule UNABLE TO FIND UNABLE TO FIND No current facility-administered medications for this visit. Allergies include: Patient has no known allergies. Past Medical History: Diagnosis Date ??? Lyme disease 07/07/2019 Treatment with naturopathy Antibiotics. Supplements and tinctures. Therapy from 02/19 to 06/22 Dr Wyatt at [facility]. ??? Obesity (BMI 30-39.9) ??? Otitis media, recurrent, bilateral ??? Seronegative spondyloarthropathy ([facility]) 07/07/2019 ??? Seronegative spondyloarthropathy ([facility]) 07/07/2019 Past Surgical History: Procedure Laterality Date [...] Paternal Grandfather ??? Inflammatory Bowel Disease Sister Negative except as in hpi. Complete 12 point ros obtained- see scans for pertinent positive and negatives on intake sheet. PHYSICAL EXAMINATION: BP 128/76 (BP Cuff Sizes: Adult, large) Pulse 81 Ht 170.2 cm (67) Wt (!) 117.7 kg (259 lb 6.4 oz) BMI 40.63 kg/m?? Physical Exam Constitutional: She is oriented [...] of motion preserved. Left knee has a small effusion with decreased extension right knee has no effusion. Ankle on the right is slightly full no Achilles tendon [...] outside laboratory by her natural path. LABS Results Only on 08/15/2019 Component Date Value ??? Gran # 08/15/2019 9.6* ??? BASO # - [facility] 08/15/2019 0.06 ??? BASO % - [facility] 08/15/2019 0 ??? EOS # - [facility] 08/15/2019 0.45 ??? EOS % - [facility] 08/15/2019 3 ??? GRAN % - [facility] 08/15/2019 67.2 ??? HEMATOCRIT - [facility] 08/15/2019 41.5 ??? HEMOGLOBIN - [facility] 08/15/2019 13.2 ??? IG# - [facility] 08/15/2019 0.05 ??? IG% - [facility] 08/15/2019 0.3 ??? LYMPH # - [facility] 08/15/2019 3.2 ??? LYMPH% - [facility] 08/15/2019 22.0 ??? MEAN CORPUSCULAR HGB - C* 08/15/2019 28.4 ??? MEAN CORPUSCULAR HGB CON* 08/15/2019 31.8* ??? MEAN CELL VOLUME - [facility] 08/15/2019 89.2 ??? MONO # - [facility] 08/15/2019 1.0* ??? MONO% - [facility] 08/15/2019 7.0 ??? PLATELET COUNT - [facility] 08/15/2019 464* ??? RED BLOOD COUNT - [facility] 08/15/2019 4.65 ??? RED CELL DISTRI WIDTH - * 08/15/2019 14.8 ??? WHITE BLOOD COUNT - [facility] 08/15/2019 14.3* ??? ALBUMIN - [facility] 08/15/2019 4.4 ??? ALKALINE PHOSPHATASE - C* 08/15/2019 71 ??? BILIRUBIN TOTAL - CV 08/15/2019 0.4 ??? BUN - CV 08/15/2019 13 ??? CALCIUM - CV 08/15/2019 9.4 ??? Chloride 08/15/2019 103 ??? CO2 Total 08/15/2019 25 ??? Creatinine 08/15/2019 0.72 ? ? eGFR 08/15/2019 >60 ??? Anion Gap 08/15/2019 11 ??? GLUCOSE - [facility] 08/15/2019 90 ??? Potassium 08/15/2019 4.6 ??? Sodium 08/15/2019 139 ??? TOTAL PROTEIN - [facility] 08/15/2019 7.8 ??? SGOT/AST - [facility] 08/15/2019 26 ??? SGPT/ALT - [facility] 08/15/2019 24 Assessment and plan: This is a 34-year-old woman who presents for reevaluation of persistent inflammatory monoarthritis affecting the right and left knees. Seronegative spondyloarthropathy Continue sulfasalazine increase to 1500 mg Prednisone every other day High risk medication use: Labs every 3 months Arabella was seen today for follow-up. Diagnoses and all orders for this visit: Seronegative spondyloarthropathy ([facility]) Comments: Increase sulfasalazine to 1500 mg daily Prednisone every other day for a month then stop No nsaids when on prednisone due to gi bleed risk Orders: - COMPLETE BLOOD COUNT AND DIFFERENTIAL; Future - COMPREHENSIVE METABOLIC PANEL (CMP); Future - sulfaSALAzine (AZULFIDINE) 500 mg EC tablet; Take 1 Tab by mouth 3 times daily. High risk medication use - COMPLETE BLOOD COUNT AND DIFFERENTIAL; Future - COMPREHENSIVE METABOLIC PANEL (CMP); Future Other orders - predniSONE (DELTASONE) 5 mg tablet; Take 1 Tab by mouth daily. Change to every other day. Impressions, diagnosis, treatment plan were reviewed. Patient questions and concerns were reviewed and answered. Patient agreeable to plan of care and will call if any addition concerns or questions arise. Venecia Vega MD 09/07/2019 13:59 documented in this encounter Plan of Treatment Upcoming Encounters Date Type Department Care Team (Late st Contact Info) Description 03/23/2024 11:15 EDT Telemedicine [facility] Rheumatology [address] [place], [place] [phone] Venecia Vega MD 130 [facility] [address] [place] [phone] documented as of this encounter Visit Diagnoses Diagnosis Seronegative spondyloarthropathy- Primary Spondylosis of unspecified site without mention of myelopathy High risk medication use Encounter for long-term (current) use of other medications documented in this encounter Discontinued Medications Medication Sig Discontinue Reason Start Date End Da te naproxen (NAPROSYN) 500 mg tablet Take 1 Tab by mouth 2 times daily as needed. for arthritis Abstraction 05/10/2014 09/07/2019 oseltamivir (TAMIFLU) 75 mg capsule Take 1 Cap by mouth 2 times daily. Abstraction 08/10/2019 09/07/2019 ibuprofen (MOTRIN) 200 mg tabletIndications:pain Take 200 mg by mouth every 6 hours as needed. Alternate therapy 09/07/2019 predniSONE (DELTASONE) 5 mg tablet Take 1 Tab by mouth daily. Order modification 07/24/2019 09/07/2019 sulfaSALAzine (AZULFIDINE) 500 mg EC tabletIndications:Seronegat jennifer spondyloarthropathy Take 1 Tab by mouth 2 times daily. Reorder 09/07/2019 09/07/2019 documented as of this encounter Care Teams Boring Machine Set Up Operator Jig Relationship Specialty Start Date End Date Serafin Saucedo MD [address] [place] [phone] PCP - General 02/13/19 04/25/20 documented as of this encounter
--- OUTSIDE RECORDS SUMMARY | 2024-03-14 18:00 | XMS_ITS | Encounter Summary ---
Author Organization [facility] Address [address] [place] [address] Care Team Providers Care Health Information Technician Name Role Phone None, Provider Primary Care Provider Serafin Zapata MD Primary Care Provider [phone] Encounter Details Date Type Department Care Team (Late st Contact Info) Description 09/20/2018 Historical Results Only [facility] [place] [address] [place] [phone] Nancy Wyatt ND [address] [place] [phone] Social History Tobacco Use Types Packs/Day Years Used Date Smoking Tobacco: Never Assessed Sex and Gender Information Value Date Recorded Sex Assigned at Not on file Gender Identity Female 07/04/2019 11:12 EST Sexual Orientation Not on file documented as of this encounter Plan of Treatment Upcoming Encounters Date Type Department Care Team (Late st Contact Info) Description 03/23/2024 11:15 EDT Telemedicine [facility] Rheumatology [address] [place] [phone] Venecia Vega MD [address] [place] [address] [address] [place] [phone] documented as of this encounter Procedures Procedure Name Priority Date/Time Associated Diagnosis Comments T3 FREE Routine 09/20/2018 9:04 EDT documented in this encounter Results * (ABNORMAL) T3 FREE (09/20/2018 9:04 EDT) T3,FREE - [facility] 4.8(A) 2.8 - 4.4 pg/mL 09/21/2018 16:[address] [facility] Comment: Test Performed by: [facility] [address] [place] [address] 09/20/2018 9:04 EDT 09/20/2018 9:[address] [facility] - 09/21/2018 16:20 EDT Does PT Have a Latex Allergy? NO Nancy Wyatt ND CHEMISTRY & BLOOD GA S ORDERABLES [facility] documented in this encounter Visit Diagnoses Not on filedocumented in this encounter Care Teams Health Information Technician Relationship Specialty Start Date End Date None, Provider PCP - General 04/02/15 02/12/19 Serafin Saucedo MD [address] [place] [phone] PCP - General 02/13/19 04/25/20 documented as of this encounter
--- OUTSIDE RECORDS SUMMARY | 2024-03-14 18:00 | XMS_ITS | Encounter Summary ---
Author Organization [facility] Address [address] [place] [address] Care Team Providers Care Gluer Machine Setup Operator Name Role Phone Serafin Saucedo MD Primary Care Provider [phone] Encounter Details Date Type Department Care Team (Latest Contact Info) Description 09/07/[address] [facility] Rheumatology [address] [place] [address] Germaine Irby RN Seronegative spondyloarthropathy ([facility]) (Primary Dx) Social History Tobacco Use [...] (AZULFIDINE) 500 mg EC tabletIndications:Seronegative spondyloarthropathy Take 1 Tab by mouth 2 times daily. 180 Tab 1 09/07/2019 09/07/2019 documented in this encounter Progress Notes * Germaine Irby RN - 09/07/2019 0925 EST Received faxed from [facility] for request for 90 day Rx supply of Sulfasalazine.Rx sent for 90 supply. documented in this encounter Plan of Treatment Upcoming Encounters Date Type Department Care Team (Late st Contact Info) Description 03/23/2024 11:15 EDT Telemedicine [facility] Rheumatology [address] [place], [place] [phone] Venecia Vega MD [address] [facility] [address] [place] [phone] documented as of this encounter Visit Diagnoses Diagnosis Seronegative spondyloarthropathy- Primary Spondylosis of unspecified site without mention of myelopathy documented in this encounter Discontinued Medications Medication Sig Discontinue Reason Start Date End Da te sulfaSALAzine (AZULFIDINE) 500 mg EC tabletIndications:Seronegativ e spondyloarthropathy Take 1 Tab by mouth 2 times daily. Reorder 07/07/2019 09/07/2019 documented as of this encounter Care Teams Gluer Machine Setup Operator Relationship Specialty Start Date End Date Serafin Saucedo MD [address] [place] [phone] PCP - General 02/13/19 04/25/20 documented as of this encounter
--- OUTSIDE RECORDS SUMMARY | 2024-03-14 18:00 | XMS_ITS | Encounter Summary ---
Author Organization [facility] Address [address] [place] [address] Care Team Providers Care Modeling Director Name Role Phone Serafin Saucedo MD Primary Care Provider [phone] Reason for Visit * Reason Comments Ear Infection (Otitis Media) Encounter Details Date Type Department Care Team ([facility] Contact Info) Description 07/24/2019 14:30 EST Office Visit [facility] Adult [facility] - [place] [address] [place], [place] [id number] Katey Dunne, NIKKO [address] [place] [address] Viral upper respiratory illness (Primary Dx) Social History Tobacco Use Types [...] Sign Reading Time Taken Comments Blood Pressure 118/76 07/24/2019 1435 EST Pulse 72 07/24/2019 1435 EST Temperature 37 ??C (98.6 ??F) 07/24/2019 1435 EST Respiratory Rate - - Oxygen Saturation - [...] as of this encounter Progress Notes * Katey Dunne, CHOIR ACCOMPANIST - 07/24/2019 1430 EST Patient ID: Arabella Ojeda is a 34 y.o. female Date of Service: 07/24/2019 Reason for Visit: Ear Infection (Otitis Media) Subjective: HPI: A couple days ago she noticed bilateral ear pain, right > left. Pain seems to be worsening. No fevers. No sore throat. Mild nasal congestion. Has started using Flonase. Also takes tylenol in the am and Naproxen at night. ROS: Constitutional: Negative for fever and weight loss. Respiratory: Negative for cough and shortness of breath. Cardiovascular: Negative for chest pain and palpitations. Current Outpatient Medications on File Prior to Visit Medication Sig Dispense Refill ??? acetaminophen (TYLENOL) 500 mg tablet Take 2 Tabs by mouth every 6 hours as needed. ??? Acetylcysteine (NAC) 600 mg capsule Take 1 Cap by mouth 2 times daily. ??? fluticasone propionate (FLONASE) 50 mcg/actuation nasal spray Instill 1 [place] into both nostrils daily. (Patient taking differently: Instill 1 [place] into both nostrils if needed. ) 1 Bottle 2 ??? GRAPE SEED EXTRACT ORAL Take by mouth daily. as directed ??? ibuprofen (MOTRIN) 200 mg tablet Take 200 mg by mouth every 6 hours as needed. ??? loratadine (CLARITIN) 10 mg tablet Take 10 mg by mouth if needed. ??? naproxen (NAPROSYN) 500 mg tablet Take 1 Tab by mouth 2 times daily as needed for Pain. (Patient not taking: Reported on 07/24/2019) 60 Tab 3 ??? naproxen (NAPROSYN) 500 mg tablet Take 1 Tab by mouth 2 times daily as needed. for arthritis ??? omeprazole (PRILOSEC) 20 mg capsule ??? oseltamivir (TAMIFLU) 75 mg capsule Take 1 Cap by mouth 2 times daily. (Patient not taking: Reported on 07/24/2019) 14 Cap 0 ??? ranitidine (ZANTAC) 300 mg tablet Take 300 mg by mouth if needed. ??? sulfaSALAzine (AZULFIDINE) 500 mg EC tablet Take 1 Tab by mouth 2 times daily. 60 Tab 3 ??? tocopheryl acetate (VITAMIN E) 100 unit capsule Take 2 Caps by mouth daily. ??? UNABLE TO FIND Other medication - -, Sig: Burburpinella 20 drops orally 2 times a day ??? UNABLE TO FIND curaphem No current facility-administered medications on file prior to visit. Past Medical History: Diagnosis Date ??? Lyme disease 07/07/2019 Treatment with naturopathy Antibiotics. Supplements and tinctures. Therapy from 02/19 to 06/22 Dr Wyatt at [facility]. ??? Obesity (BMI 30-39.9) ??? Otitis media, recurrent, bilateral ??? Seronegative spondyloarthropathy ([facility] 07/07/2019 ??? Seronegative spondyloarthropathy ([facility]) 07/07/2019 Past Surgical History: Procedure Laterality Date [...] Paternal Grandfather ??? Inflammatory Bowel Disease Sister No Known Allergies Objective: VS: BP 118/76 (BP Cuff Location: Left arm, BP Patient Position: Sitting, BP Cuff Sizes: Adult, large) Pulse 72 Temp 37 ??C (98.6 ??F) (Oral) Physical Exam: GENERAL APPEARANCE: no acute distress, pleasant, cooperative. HEENT EYES:, conjunctiva clear, EARS:, TM's normal, NOSE:, unremarkable, THROAT:, pharynx and tonsils normal. NECK: supple, no lymphadenopathy. HEART: regular rate and rhythm, no murmurs. LUNGS: clear to auscultation, unlabored. SKIN: warm & dry. NEUROLOGIC EXAM: alert & oriented x3, gait normal. Assessment/Plan: Diagnoses and all orders for this visit: Viral upper respiratory illness Bilateral ear discomfort, nasal congestion. No signs of bacterial infection. TM normal. Recommendedcontinuing flonase, tylenol, naproxen, rest, fluids. Follow up if no improvement. Katey Dunne APRN documented in this encounter Plan of Treatment Upcoming Encounters Date Type Department Care Team (Late st Contact Info) Description 03/23/2024 11:15 EDT Telemedicine [facility] Rheumatology [address] [place], [place] [address] Venecia Vega MD [address] [facility] [address] [place] [address] documented as of this encounter Visit Diagnoses Diagnosis Viral upper respiratory illness- Primary Acute upper respiratory infections of unspecified site documented in this encounter Historical Medications * This list may reflect changes made after this encounter. Medication Sig Dispensed Refills Start Date End Date ranitidine (ZANTAC) 300 mg tablet Take 300 mg by mouth if needed. 07/23/2019 11/10/2019 added in this encounter Care Teams Modeling Director Relationship Specialty Start Date End Date Serafin Suacedo MD [address] [place] [phone] PCP - General 02/13/19 04/25/20 documented as of this encounter
--- OUTSIDE RECORDS SUMMARY | 2024-03-14 18:00 | XMS_ITS | Encounter Summary ---
Author Organization [facility] Address [address] [place] [address] Care Team Providers Care Closet Builder Name Role Phone Serafin Saucedo MD Primary Care Provider [phone] Reason for Visit * Reason Onset Date Comments Update 07/12/2019 Encounter Details Date Type Department Care Team (Late st Contact Info) Description 07/12/2019 Telephone [facility] [place] [address] [place] [address] Venecia Vega MD [address] [facility] [address] [place] [phone] Update Social History Tobacco Use Types Packs/Day Years [...] 1 Cap by mouth 2 times daily. 14 Cap 07/12/2019 11/10/2019 documented in this encounter Miscellaneous Notes * Telephone Encounter - Katt Stringer RN - 07/12/2019 1653 EST Rx sent for Tamiflu per Dr. Vega directions and patient notified with understanding expressed. Shedid get the flu shot. * Telephone Encounter - Venecia Vega MD - 07/12/2019 1636 EST We can send in Tamiflu rx 75 mg bid treat for 7 days Please ensure she had a flu shot and send in rx. * Telephone Encounter - Katt Stringer RN - 07/12/2019 1628 EST Forwarding you this question from [facility]. * Telephone Encounter - Cortney Olmedo - 07/12/2019 1617 EST Son tested positive for type B flu Dr. Vega told her if she is around anyone exposed should start tamillu. Does she get this through Dr. Vega documented in this encounter Plan of Treatment Upcoming Encounters Date Type Department Care Team (Late st Contact Info) Description 03/23/2024 11:15 EDT Telemedicine [facility] Rheumatology [address] [place] [address] Venecia Vega MD [address] [place] [address] [address] [place] [address] documented as of this encounter Visit Diagnoses Not on filedocumented in this encounter Care Teams Closet Builder Relationship Specialty Start Date End Date Serafin Saucedo MD [address] [place] [phone] PCP - General 02/13/19 04/25/20 documented as of this encounter
--- OUTSIDE RECORDS SUMMARY | 2024-03-14 18:00 | XMS_ITS | Encounter Summary ---
Author Organization [facility] Address [address] [place] [address] Care Team Providers Care Cabinet Mounter Name Role Phone None, Provider Primary Care Provider Serafin Zapata MD Primary Care Provider [phone] Encounter Details Date Type Department Care Team (Late st Contact Info) Description 01/26/2018 Historical Results Only [facility] Lab - Main [place] [address] [place] [address] Venecia Vega MD [address] [place] [address] [phone] Social History Tobacco Use Types [...] Description 03/23/2024 11:15 EDT Telemedicine [facility] Rheumatology [address] [place] [address] Venecia Vega MD [address] [place] [address] [phone] documented as of this encounter Procedures Procedure Name Priority Date/Time Associated Diagnosis Comments COMPLETE BLOOD COUNT WITH DIFFERENTIAL (AUTO) Routine 01/26/2018 11:43 EDT COMPREHENSIVE METABOLIC PANEL (CMP) Routine 01/26/2018 11:43 EDT documented in this encounter Results * (ABNORMAL) COMPREHENSIVE METABOLIC PANEL (CMP) (01/26/2018 11:43 EDT) Albumin % 4.1 3.4 - 4.9 g/dL 01/26/2018 12:19 [facility] ALKALINE PHOSPHATASE - [facility] 83 38 - 126 U/L 01/26/2018 12:19 [facility] BILIRUBIN TOTAL 0.4 0.2 - 1.3 mg/dL 01/26/2018 12:19 [facility] BUN - [facility] 10 10 - 26 mg/dL 01/26/2018 12:19 [facility] CALCIUM - [facility] 9.3 8.5 - 10.5 mg/dL 01/26/2018 12:19 [facility] Chloride 104 96 - 110 mmol/L 01/26/2018 12:19 [facility] CO2 Total 25 22 - 32 mEq/L 01/26/2018 12:19 [facility] CREATININE 0.74 0.52 - 1.04 mg/dL 01/26/2018 12:19 [facility] eGFR >60 01/26/2018 12:19 [facility] Comment: Chronic renal impairment is defined as GFR <60 Multiply result by 1.210 for patients. eGFR calculated using the IDMS-traceable MDRD Study Equation. ??(effective 05/07/2014) Anion Gap 12 0 - 18 01/26/2018 12:19 [facility] GLUCOSE - [facility] 97 70 - 100 mg/dL 01/26/2018 12:19 [facility] Potassium 4.3 3.5 - 5.0 mEq/L 01/26/2018 12:19 [facility] Sodium 141 136 - 145 mEq/L 01/26/2018 12:19 [facility] TOTAL PROTEIN - [facility] 7.5 6.2 - 8.2 gm/dL 01/26/2018 12:19 [facility] SGOT/AST - [facility] 52(H) 14 - 36 U/L 01/26/2018 12:19 EDT [facility] SGPT/ALT - [facility] 78(H) 9 - 52 U/L 8 12:19 [facility] 01/26/2018 11:4 3 EDT 01/26/2018 12:01 EDT Narrative [facility] - 01/26/2018 12:19 EDT Does PT Have a Latex Allergy? NO Venecia Vega MD CHEMISTRY & BLOO D GAS ORDERABLES [facility] * (ABNORMAL) COMPLETE BLOOD COUNT WITH DIFFERENTIAL (AUTO) (01/26/2018 11:43 EDT) ABSOLUTE NEUTROPHIL COUN - [facility] 3.86 1.7 - 7.0 10e3/ul 01/26/2018 12:37 [facility] BASO # - [facility] 0.03 0.0 - 0.3 10e3/uL 01/26/2018 12:37 [facility] BASO % - [facility] 0 0 - 2 % 01/26/2018 12:37 [facility] EOS # - [facility] 0.42 0.05 - 0.5 10e3/uL 01/26/2018 12:37 [facility] EOS % - [facility] 5 0 - 5 % 01/26/2018 12:37 [facility] GRAN % - [facility] 50 40 - 80 % 01/26/2018 12:37 [facility] HEMATOCRIT - [facility] 41.2 34.0 - 47.0 % 01/26/2018 12:37 [facility] HEMOGLOBIN - [facility] 13.6 11.2 - 15.7 g/dl 01/26/2018 12:37 [facility] IG# - [facility] 0.01 0 - 0.07 10e3/uL 01/26/2018 12:37 [facility] IG% - [facility] 0.1 0 - 0.9 % 01/26/2018 12:37 [facility] LYMPH # - [facility] 2.89 0.9 - 2.9 10e3/uL 01/26/2018 12:37 [facility] LYMPH% - [facility] 37 20 - 40 % 01/26/2018 12:37 [facility] MEAN CORPUSCULAR HGB - [facility] 28.8 26 - 34 pg 01/26/2018 12:37 [facility] MEAN CORPUSCULAR HGB CONC - [facility] 33.0 31 - 36 g/dL 01/26/2018 12:37 [facility] MEAN CELL VOLUME - [facility] 87.3 77 - 100 fl 01/26/2018 12:37 [facility] MONO # - [facility] 0.57 0.3 - 0.9 10e3/uL 01/26/2018 12:37 [facility] MONO% - [facility] 7 0 - 12 % 01/26/2018 12:37 [facility] PLATELET COUNT 424(H) 150 - 400 10e3/ul 01/26/2018 12:37 [facility] RED BLOOD COUNT - [facility] 4.72 3.8 - 5.2 10e6/ul 01/26/2018 12:37 [facility] RED CELL DISTRI WIDTH - [facility] 14.5 11.8 - 15.6 % 01/26/2018 12:37 [facility] WHITE BLOOD COUNT - [facility] 7.8 3.5 - 10.5 10e3/ul 01/26/2018 12:37 [facility] 01/26/2018 11:4 3 EDT 01/26/2018 12:01 EDT Narrative [facility] - 01/26/2018 12:37 EDT Does PT Have a Latex Allergy? NO Venecia Vega MD HEMATOLOGY & PF4 ORDERABLES [facility] documented in this encounter Visit Diagnoses Not on filedocumented in this encounter Care Teams Cabinet Mounter Relationship Specialty Start Date End Date None, Provider PCP - General 04/02/15 02/12/19 Serafin Saucedo MD [address] [place] [phone] PCP - General 02/13/19 04/25/20 documented as of this encounter
--- OUTSIDE RECORDS SUMMARY | 2024-03-14 18:00 | XMS_ITS | Encounter Summary ---
Author Organization [facility] Address [address] [place] [address] Care Team Providers Care Maintenance Supervisor Electrical Name Role Phone None, Provider Primary Care Provider Serafin Zapata MD Primary Care Provider [phone] Encounter Details Date Type Department Care Team (Late st Contact Info) Description 11/17/[address] [facility] Lab - Main [place] [address] [place] [address] Venecia Vega MD [address] [place] [address] [phone] Social History Tobacco Use Types [...] Info) Description 03/23/2024 11:[address] [facility] Rheumatology [address] [place] [address] Venecia Vega MD [address] [place] [address] [phone] documented as of this encounter Procedures Procedure Name Priority Date/Time Associated Diagnosis Comments COMPLETE BLOOD COUNT AND DIFFERENTIAL Routine 11/17/2017 11:28 EDT COMPREHENSIVE METABOLIC PANEL (CMP) Routine 11/17/2017 11:28 EDT documented in this encounter Results * (ABNORMAL) COMPREHENSIVE METABOLIC PANEL (CMP) (11/17/2017 11:28 EDT) Albumin % 4.2 3.4 - 4.9 g/dL 11/17/2017 12:26 [facility] ALKALINE PHOSPHATASE - [facility] 75 38 - 126 U/L 11/17/2017 12:26 [facility] BILIRUBIN TOTAL 0.5 0.2 - 1.3 mg/dL 11/17/2017 12:26 [facility] BUN - [facility] 13 10 - 26 mg/dL 11/17/2017 12:26 [facility] CALCIUM - [facility] 9.5 8.5 - 10.5 mg/dL 11/17/2017 12:26 [facility] Chloride 99 96 - 110 mmol/L 11/17/2017 12:26 [facility] CO2 Total 25 22 - 32 mEq/L 11/17/2017 12:26 [facility] CREATININE 0.68 0.52 - 1.04 mg/dL 11/17/2017 12:26 [facility] eGFR >60 11/17/2017 12:26 [facility] Comment: Chronic renal impairment is defined as GFR <60 Multiply result by 1.210 for patients. eGFR calculated using the IDMS-traceable MDRD Study Equation. ??(effective 05/07/2014) Anion Gap 13 0 - 18 11/17/2017 12:26 [facility] GLUCOSE - [facility] 89 70 - 100 mg/dL 11/17/2017 12:26 [facility] Potassium 3.5 3.5 - 5.0 mEq/L 11/17/2017 12:26 [facility] Sodium 137 136 - 145 mEq/L 11/17/2017 12:26 [facility] TOTAL PROTEIN - [facility] 7.6 6.2 - 8.2 gm/dL 11/17/2017 12:26 [facility] SGOT/AST - [facility] 61(H) 14 - 36 U/L 11/17/2017 12:[address] [facility] SGPT/ALT - [facility] 99(H) 9 - 52 U/L 8 12:26 [facility] 11/17/2017 11:2 8 EDT 11/17/2017 11:[address] [facility] - 11/17/2017 12:26 EDT Does PT Have a Latex Allergy? NO Venecia Vega MD CHEMISTRY & BLOO D GAS ORDERABLES [facility] * (ABNORMAL) COMPLETE BLOOD COUNT AND DIFFERENTIAL (11/17/2017 11:28 EDT) ABSOLUTE NEUTROPHIL COUN - [facility] 4.75 1.7 - 7.0 10e3/ul 11/17/2017 12:55 [facility] BASOPHILS - [facility] 0.20 0.0 - 0.3 10e3/uL 11/17/2017 12:55 [facility] BANDS - [facility] 3 0 - 3 % 11/17/2017 12:55 [facility] BASOPHIL - [facility] 2 0 - 2 % 8 12:55 [facility] EOS # - [facility] 0.70(H) 0.05 - 0.5 10e3/uL 11/17/2017 12:55 [facility] EOSINOPHILS - [facility] 7(H) 0 - 5 % 11/17/2017 12:55 [facility] HEMATOCRIT - [facility] 40.5 34.0 - 47.0 % 11/17/2017 11:50 [facility] HEMOGLOBIN - [facility] 13.6 11.2 - 15.7 g/dl 11/17/2017 11:50 [facility] LYMPH # - [facility] 3.83(H) 0.9 - 2.9 10e3/uL 11/17/2017 12:55 [facility] LYMPHOCYTES - [facility] 38 20 - 40 % 11/17/2017 12:55 [facility] Comment:FEW REACTIVE LYMPHS MEAN CORPUSCULAR HGB - [facility] 29.1 26 - 34 pg 11/17/2017 11:50 [facility] MEAN CORPUSCULAR HGB CONC - [facility] 33.6 31 - 36 g/dL 11/17/2017 11:50 [facility] MEAN CELL VOLUME - [facility] 86.7 77 - 100 fl 11/17/2017 11:50 [facility] MONO # - [facility] 0.60 0.3 - 0.9 10e3/uL 11/17/2017 12:55 [facility] MONOCYTE - [facility] 6 0 - 12 % 8 12:55 [facility] PLATELET COUNT 391 150 - 400 10e3/ul 11/17/2017 11:50 [facility] NEUTROPHILS - [facility] 44 40 - 80 % 11/17/2017 12:55 [facility] RED BLOOD COUNT - [facility] 4.67 3.8 - 5.2 10e6/ul 11/17/2017 11:50 [facility] RED CELL DISTRI WIDTH - [facility] 14.3 11.8 - 15.6 % 11/17/2017 11:50 [facility] WHITE BLOOD COUNT - [facility] 10.1 3.5 - 10.5 10e3/ul 11/17/2017 11:50 [facility] 11/17/2017 11:2 8 EDT 11/17/2017 11:[address] [facility] - 11/17/2017 12:55 EDT Does PT Have a Latex Allergy? NO Venecia Vega MD PACKAGES & DNA P ALY ORDERABLES [facility] documented in this encounter Visit Diagnoses Not on filedocumented in this encounter Care Teams Maintenance Supervisor Electrical Relationship Specialty Start Date End Date None, Provider PCP - General 04/02/15 02/12/19 Serafin Saucedo MD [address] [place] [phone] PCP - General 02/13/19 04/25/20 documented as of this encounter
--- OUTSIDE RECORDS SUMMARY | 2024-03-14 18:00 | XMS_ITS | Encounter Summary ---
Author Organization [facility] Address [address] [place] [address] Care Team Providers Care Lead Athlete Name Role Phone None, Provider Primary Care Provider Unavailabl e Encounter Details Date Type Department Care Team (Latest Contact Info) Description 01/12/2019 15:22 EDT - 01/12/2019 23:59 EDT Hospital Encounter [address] [address] Unknown, Provider, Discharge Disposition: Home or Self [...] Code Departure Means Destination Home or Self Skilled Nursing documented in this encounter Plan of Treatment Upcoming Encounters Date Type Department Care Team (Late st Contact Info) Description 03/23/2024 11:15 EDT Telemedicine [facility] Rheumatology [address] [place], [place] [address] Venecia Vega MD [address] [facility] [address] [place] [phone] documented as of this encounter Visit Diagnoses Not on filedocumented in this encounter Care Teams Lead Athlete Relationship Specialty Start Date End Date None, Provider PCP - General 04/02/15 02/12/19 documented as of this encounter
--- OUTSIDE RECORDS SUMMARY | 2024-03-14 18:00 | XMS_ITS | Encounter Summary ---
Author Organization [facility] Address [address] [place] [address] Care Team Providers Care Agency Owner Name Role Phone None, Provider Primary Care Provider Serafin Zapata MD Primary Care Provider [phone] Encounter Details Date Type Department Care Team (Late st Contact Info) Description 01/12/2019 Historical Results Only [facility] Radiology Results [address] [place], [place] [address] Nancy Wyatt ND [address] [place] [phone] Social History Tobacco Use Types Packs/Day Years Used Date Smoking Tobacco: Never Assessed Sex and Gender Information Value Date Recorded Sex Assigned at Not on file Gender Identity Female 07/04/2019 11:12 EST Sexual Orientation Not on file documented as of this encounter Plan of Treatment Upcoming Encounters Date Type Department Care Team (Late st Contact Info) Description 03/23/2024 11:15 EDT Telemedicine [facility] Rheumatology [address] [place], [place] [phone] Venecia Vega MD [address] [facility] [address] [place] [address] documented as of this encounter Procedures Procedure Name Priority Date/Time Associated Diagnosis Comments XR KNEE 4 OR MORE VIEWS 01/12/2019 16:01 EDT XR KNEE LEFT 4 OR MORE VIEWS 01/12/2019 16:01 EDT documented in this encounter Results * XR KNEE 4 OR MORE VIEWS (01/12/2019 16:01 EDT) Anatomical Region Laterality Modality Lower Extremities Other 01/12/2019 16:0 1 EDT Narrative 01/12/2019 16:04 EDT ? EXAM: RADIOLOGY/KNEE COMPLETE RT 4+VIEW ?? EX. D/ (1550) ? CLINICAL INFORMATION: ? BILATERAL KNEE PAIN AND SWELLING ? KNEE COMPLETE RT 4+VIEW, KNEE COMPLETE LT 4+VIEW ? Signs and Symptoms/Comments: ??BILATERAL KNEE PAIN AND SWELLING ? Comparison: Left knee radiographs on 03/17/2016. ? Findings: ? Right Knee: Standing AP, PA flexion, lateral and sunrise views were ? performed. No acute fracture or malalignment is identified. Mild ? tricompartmental osteoarthrosis is most advanced in the medial ? tibiofemoral compartment. A trace suprapatellar joint effusion is ? present. ? Left Knee: Standing AP, PA flexion, lateral and sunrise views were ? performed. No acute fracture or malalignment is identified. Mild ? tricompartmental osteoarthrosis remains most advanced in the medial ? tibiofemoral compartment, similar to 2016. A trace suprapatellar ? joint effusion is present. ? IMPRESSION: ? Mild bilateral knee tricompartmental osteoarthrosis. ? REPORT SIGNED IN OTHER VENDOR SYSTEM 01/12/2019 ?Reported By: Vasiliy Scott MD ? CC: ? Transcribed Date/Time: 01/12/2019 (0284) ? Financial Investigator: ? Printed Date/Time: 03/22/2019 (4968) ? PAGE 1 ? Signed Report ? Procedure Note Vasiliy Scott MD, MD - 05/09/2019 EXAM: RADIOLOGY/KNEE COMPLETE RT 4+VIEW EX. D/ (3080) CLINICAL INFORMATION: BILATERAL KNEE PAIN AND SWELLING KNEE COMPLETE RT 4+VIEW, KNEE COMPLETE LT 4+VIEW Signs and Symptoms/Comments: BILATERAL KNEE PAIN AND SWELLING Comparison: Left knee radiographs on 03/17/2016. Findings: Right Knee: Standing AP, PA flexion, lateral and sunrise views were performed. No acute fracture or malalignment is identified. Mild tricompartmental osteoarthrosis is most advanced in the medial tibiofemoral compartment. A trace suprapatellar joint effusion is present. Left Knee: Standing AP, PA flexion, lateral and sunrise views were performed. No acute fracture or malalignment is identified. Mild tricompartmental osteoarthrosis remains most advanced in the medial tibiofemoral compartment, similar to 2016. A trace suprapatellar joint effusion is present. IMPRESSION: Mild bilateral knee tricompartmental osteoarthrosis. REPORT SIGNED IN OTHER VENDOR SYSTEM 01/12/2019 Reported By: Vasiliy Scott MD CC: Transcribed Date/Time: 01/12/2019 (1852) Financial Investigator: Printed Date/Time: 03/22/2019 (2727) PAGE 1 Signed Report Nancy Wyatt ND IMG DIAGNOSTIC IMAGI NG ORDERABLES * XR KNEE LEFT 4 OR MORE VIEWS (01/12/2019 16:01 EDT) Anatomical Region Laterality Modality Lower Extremities Left Other 01/12/2019 16:0 1 EDT Narrative 01/12/2019 16:04 EDT ? EXAM: RADIOLOGY/KNEE COMPLETE LT 4+VIEW ?? EX. D/ (1550) ? CLINICAL INFORMATION: ? BILATERAL KNEE PAIN AND SWELLING ? KNEE COMPLETE RT 4+VIEW, KNEE COMPLETE LT 4+VIEW ? Signs and Symptoms/Comments: ??BILATERAL KNEE PAIN AND SWELLING ? Comparison: Left knee radiographs on 03/17/2016. ? Findings: ? Right Knee: Standing AP, PA flexion, lateral and sunrise views were ? performed. No acute fracture or malalignment is identified. Mild ? tricompartmental osteoarthrosis is most advanced in the medial ? tibiofemoral compartment. A trace suprapatellar joint effusion is ? present. ? Left Knee: Standing AP, PA flexion, lateral and sunrise views were ? performed. No acute fracture or malalignment is identified. Mild ? tricompartmental osteoarthrosis remains most advanced in the medial ? tibiofemoral compartment, similar to 2016. A trace suprapatellar ? joint effusion is present. ? IMPRESSION: ? Mild bilateral knee tricompartmental osteoarthrosis. ? REPORT SIGNED IN OTHER VENDOR SYSTEM 01/12/2019 ?Reported By: Vasiliy Scott MD ? CC: ? Transcribed Date/Time: 01/12/2019 (2084) ? Financial Investigator: ? Printed Date/Time: 03/22/2019 (6850) ? PAGE 1 ? Signed Report ? Procedure Note Vasiliy Scott MD, MD - 05/09/2019 EXAM: RADIOLOGY/KNEE COMPLETE LT 4+VIEW EX. D/ (1550) CLINICAL INFORMATION: BILATERAL KNEE PAIN AND SWELLING KNEE COMPLETE RT 4+VIEW, KNEE COMPLETE LT 4+VIEW Signs and Symptoms/Comments: BILATERAL KNEE PAIN AND SWELLING Comparison: Left knee radiographs on 03/17/2016. Findings: Right Knee: Standing AP, PA flexion, lateral and sunrise views were performed. No acute fracture or malalignment is identified. Mild tricompartmental osteoarthrosis is most advanced in the medial tibiofemoral compartment. A trace suprapatellar joint effusion is present. Left Knee: Standing AP, PA flexion, lateral and sunrise views were performed. No acute fracture or malalignment is identified. Mild tricompartmental osteoarthrosis remains most advanced in the medial tibiofemoral compartment, similar to 2016. A trace suprapatellar joint effusion is present. IMPRESSION: Mild bilateral knee tricompartmental osteoarthrosis. REPORT SIGNED IN OTHER VENDOR SYSTEM 01/12/2019 Reported By: Vasiliy Scott MD CC: Transcribed Date/Time: 01/12/2019 (8141) Financial Investigator: Printed Date/Time: 03/22/2019 (8705) PAGE 1 Signed Report Nancy Wyatt ND IMG DIAGNOSTIC IMAGI NG ORDERABLES documented in this encounter Visit Diagnoses Not on filedocumented in this encounter Care Teams Agency Owner Relationship Specialty Start Date End Date None, Provider PCP - General 04/02/15 02/12/19 Serafin Saucedo MD [address] [place] [phone] PCP - General 02/13/19 04/25/20 documented as of this encounter
--- OUTSIDE RECORDS SUMMARY | 2024-03-14 18:01 | XMS_ITS | Encounter Summary ---
Author Organization [facility] Address [address] [place] [address] Care Team Providers Care Emergency Man Name Role Phone Unknown, Provider Primary Care Provider Encounter Details Date Type Department Care Team (Latest Contact Info) Description 03/08/2015 15:55 EDT - 03/08/2015 23:59 EDT Hospital Encounter [address] [address] Unknown, Provider, Discharge Disposition: Home or Self [...] Description 03/23/2024 11:15 EDT Telemedicine [facility] Rheumatology [address] [place] [address] Venecia Vega MD 130 [facility] [address] [place] [phone] documented as of this encounter Visit Diagnoses Not on filedocumented in this encounter Care Teams Emergency Man Relationship Specialty Start Date End Date Unknown, Provider, PCP - General 07/31/13 04/01/15 documented as of this encounter
--- OUTSIDE RECORDS SUMMARY | 2024-03-14 18:01 | XMS_ITS | Encounter Summary ---
Author Organization [facility] Address [address] [place] [address] Care Team Providers Care Commercial Journeyman Electrician Name Role Phone None, Provider Primary Care Provider Serafin Zapata MD Primary Care Provider [phone] Encounter Details Date Type Department Care Team (Late st Contact Info) Description 08/05/[address] [facility] Lab - Main [place] [address] [place] [phone] Venecia Vega MD [address] [place] [address] [phone] Social History Tobacco Use Types [...] 11:[address] [facility] Rheumatology [address] [place] [address] Venecia Vega MD [address] [place] [address] [phone] documented as of this encounter Procedures Procedure Name Priority Date/Time Associated Diagnosis Comments C REACTIVE PROTEIN Routine 08/05/2016 9: 27 EST CREATININE Routine 08/05/2016 9:27 EST HEPATIC FUNCTION PANEL (ALB,ALK PHOS,ALT,AST,DBIL,TO T DEMIAN,TOT PROT) Routine 08/05/2016 9:27 EST documented in this encounter Results * HEPATIC FUNCTION PANEL (ALB,ALK PHOS,ALT,AST,DBIL,TOT DEMIAN,TOT PROT) (08/05/2016 9:27 EST) Albumin % 3.5 3.4 - 5.0 g/dL 08/05/2016 11:17 [facility] ALKALINE PHOSPHATASE - [facility] [place] 94 41 - 126 U/L 08/05/2016 11:17 [facility] BILIRUBIN TOTAL 0.3 0.0 - 1.0 mg/dL 08/05/2016 11:17 [facility] TOTAL PROTEIN - [facility] [place] 7.1 6.4 - 8.2 gm/dl 08/05/2016 11:17 [facility] SGOT/AST - [facility] [place] 20 10 - 37 U/L 08/05/2016 11:17 [facility] SGPT/ALT - [facility] [place] 42 12 - 78 U/L 08/05/2016 11:17 [facility] BILIRUBIN DIRECT - [facility] [place] 0.1 0.0 - 0.2 mg/dL 08/05/2016 11:17 [facility] 08/05/2016 9:27 EST 08/05/2016 9:27 EST Narrative [facility] - 08/05/2016 11:17 EST Does PT Have a Latex Allergy? NO Venecia Vega MD CHEMISTRY & BLOO D GAS ORDERABLES [facility] * CREATININE (08/05/2016 9:27 EST) Pathologist [facility] CREATININE 0.86 0.5 - 1.3 mg/dL 08/05/2016 11:17 [facility] eGFR >60 08/05/2016 11:17 [facility] Comment: Chronic renal impairment is defined as GFR <60 Multiply result by 1.210 for patients. eGFR calculated using the IDMS-traceable MDRD Study Equation. ??(effective 05/07/2014) 08/05/2016 9:27 EST 08/05/2016 9:27 EST Narrative [facility] - 08/05/2016 11:17 EST Does PT Have a Latex Allergy? NO Venecia Vega MD CHEMISTRY & BLOO D GAS ORDERABLES [facility] * (ABNORMAL) C REACTIVE PROTEIN (08/05/2016 9:27 EST) Pathologist [facility] SED RATE [facility] 52(H) 1 - 17 mm/hr 08/05/2016 10:47 EST [facility] 08/05/2016 9:27 EST 08/05/2016 9:27 EST Narrative [facility] - 08/05/2016 10:47 EST Does PT Have a Latex Allergy? NO Venecia Vega MD CHEMISTRY & BLOO D GAS ORDERABLES [facility] documented in this encounter Visit Diagnoses Not on filedocumented in this encounter Care Teams Commercial Journeyman Electrician Relationship Specialty Start Date End Date None, Provider PCP - General 04/02/15 02/12/19 Serafin Saucedo MD [address] [place] [phone] PCP - General 02/13/19 04/25/20 documented as of this encounter
--- OUTSIDE RECORDS SUMMARY | 2024-03-14 18:01 | XMS_ITS | Encounter Summary ---
Author Organization [facility] Address [address] [place] [address] Care Team Providers Care Residence Director Name Role Phone None, Provider Primary Care Provider Serafin Zapata MD Primary Care Provider [phone] Encounter Details Date Type Department Care Team (Late st Contact Info) Description 05/13/2016 Historical Results Only [facility] Lab - Main [place] [address] [place] [phone] Kellen Turner MD [address] [place], [place] [address]A, [address] [place] [address] Social History Tobacco Use Types [...] 11:15 EDT Telemedicine [facility] Rheumatology [address] [place] [phone] Venecia Vega MD [address] [place], [place] [address] [address] [place] [address] documented as of this encounter Procedures Procedure Name Priority Date/Time Associated Diagnosis Comments COMPLETE BLOOD COUNT WITH DIFFERENTIAL (AUTO) Routine 05/13/2016 7:59 EST BLOOD BANK HOLD Routine 05/13/2016 7:59 EST documented in this encounter Results * (ABNORMAL) COMPLETE BLOOD COUNT WITH DIFFERENTIAL (AUTO) (05/13/2016 7:59 EST) ABSOLUTE NEUTROPHIL COUN - [facility] 10.49(H) 1.7 - 7.0 10e3/ul 05/13/2016 8:28 [facility] BASO # - [facility] 0.02 0.0 - 0.3 10e3/uL 05/13/2016 8:28 [facility] BASO % - [facility] 0 0 - 2 % 05/13/2016 8:28 [facility] EOS # - [facility] 0.15 0.05 - 0.5 10e3/uL 05/13/2016 8:28 [facility] EOS % - [facility] 1 0 - 5 % 05/13/2016 8:28 [facility] GRAN % - [facility] 72 40 - 80 % 05/13/2016 8:28 [facility] HEMATOCRIT - [facility] 37.0 34.0 - 47.0 % 05/13/2016 8:28 [facility] HEMOGLOBIN - [facility] 11.7 11.2 - 15.7 g/dl 05/13/2016 8:28 [facility] IG# - [facility] 0.09(H) 0 - 0.07 10e3/uL 05/13/2016 8:28 [facility] IG% - [facility] 0.6 0 - 0.9 % 05/13/2016 8:28 [facility] LYMPH # - [facility] 2.91(H) 0.9 - 2.9 10e3/uL 05/13/2016 8:28 [facility] LYMPH% - [facility] 20 20 - 40 % 05/13/2016 8:28 [facility] MEAN CORPUSCULAR HGB - [facility] 26.2 26 - 34 pg 05/13/2016 8:28 [facility] MEAN CORPUSCULAR HGB CONC - [facility] 31.6 31 - 36 g/dL 05/13/2016 8:28 [facility] MEAN CELL VOLUME - [facility] 83.0 77 - 100 fl 05/13/2016 8:28 [facility] MONO # - [facility] 0.92(H) 0.3 - 0.9 10e3/uL 05/13/2016 8:28 [facility] MONO% - [facility] 6 0 - 12 % 05/13/2016 8:28 [facility] PLATELET COUNT 464(H) 150 - 400 10e3/ul 05/13/2016 8:28 [facility] RED BLOOD COUNT - [facility] 4.46 3.8 - 5.2 10e6/ul 05/13/2016 8:28 [facility] RED CELL DISTRI WIDTH - [facility] 17.0(H) 11.8 - 15.6 % 05/13/2016 8:28 [facility] WHITE BLOOD COUNT - [facility] 14.6(H) 3.5 - 10.5 10e3/ul 05/13/2016 8:28 [facility] 05/13/2016 7:59 EST 05/13/2016 8:17 EST Kellen Turner MD HEMATOLOGY & PF4 ORD ERABLES [facility] * BLOOD BANK HOLD (CLOT) (05/13/2016 7:59 EST) CLOT TO HOLD - [facility] See Note [facility] Comment: CLOT TO HOLD WILL IN 48 HOURS FROM DATE ?AND TIME OF COLLECTION ?BLOOD BANK HISTORY HAS BEEN CHECKED 05/13/2016 7:59 EST 05/13/2016 8:17 EST Kellen Turner MD BLOOD BANK TESTS [facility] documented in this encounter Visit Diagnoses Not on filedocumented in this encounter Care Teams Residence Director Relationship Specialty Start Date End Date None, Provider PCP - General 04/02/15 02/12/19 Serafin Saucedo MD [address] [place] [address] [place] [phone] PCP - General 02/13/19 04/25/20 documented as of this encounter
--- OUTSIDE RECORDS SUMMARY | 2024-03-14 18:01 | XMS_ITS | Encounter Summary ---
Author Organization [facility] Address [address] [place] [address] Care Team Providers Care Fur Stylist Name Role Phone None, Provider Primary Care Provider Serafin Zapata MD Primary Care Provider [phone] Encounter Details Date Type Department Care Team (Late st Contact Info) Description 06/06/2016 Historical Results Only [facility] Lab - Main [place] [address] [place] [address] Venecia Vega MD [address] [place] [address] [phone] Social History Tobacco Use Types [...] 11:15 EDT Telemedicine [facility] Rheumatology [address] [place] [address] Venecia Vega MD [address] [place] [address] [phone] documented as of this encounter Procedures Procedure Name Priority Date/Time Associated Diagnosis Comments C REACTIVE PROTEIN Routine 06/06/2016 9:38 EST C REACTIVE PROTEIN Routine 06/06/2016 9:38 EST documented in this encounter Results * (ABNORMAL) C REACTIVE PROTEIN (06/06/2016 9:38 EST) Pathologist [facility] C-Reactive Protein 28.1(H) 0.0 - 3.0 mg/L 06/06/2016 10:33 EST [facility] 06/06/2016 9:38 EST 06/06/2016 9:39 EST Narrative [facility] - 06/06/2016 10:33 EST Does PT Have a Latex Allergy? NO Venecia Vega MD CHEMISTRY & BLOO D GAS ORDERABLES [facility] * (ABNORMAL) C REACTIVE PROTEIN (06/06/2016 9:38 EST) Pathologist [facility] SED RATE - [facility] 69(H) 1 - 17 mm/hr 06/06/2016 10:17 EST [facility] 06/06/2016 9:38 EST 06/06/2016 9:39 EST [facility] - 06/06/2016 10:17 EST Does PT Have a Latex Allergy? NO Venecia Vega MD CHEMISTRY & BLOO D GAS ORDERABLES [facility] documented in this encounter Visit Diagnoses Not on filedocumented in this encounter Care Teams Fur Stylist Relationship Specialty Start Date End Date None, Provider PCP - General 04/02/15 02/12/19 Serafin Saucedo MD [address] [place] [phone] PCP - General 02/13/19 04/25/20 documented as of this encounter
--- OUTSIDE RECORDS SUMMARY | 2024-03-14 18:01 | XMS_ITS | Encounter Summary ---
Author Organization [facility] Address [address] [place] [address] Care Team Providers Care Draw String Knotter Name Role Phone None, Provider Primary Care Provider Unavailabl e Encounter Details Date Type Department Care Team (Latest Contact Info) Description 09/30/2015 9:13 EDT - 09/30/2015 23:59 EDT Hospital Encounter [address] [address] Unknown, Provider, Discharge Disposition: Home or Self [...] Code Departure Means Destination Home or Self Fdc documented in this encounter Plan of Treatment Upcoming Encounters Date Type Department Care Team (Late st Contact Info) Description 03/23/2024 11:[address] [facility] Rheumatology [address] [place], [place] [phone] Venecia Vega MD 130 [facility] [address] [place] [phone] documented as of this encounter Visit Diagnoses Not on filedocumented in this encounter Care Teams Draw String Knotter Relationship Specialty Start Date End Date None, Provider PCP - General 04/02/15 02/12/19 documented as of this encounter
--- OUTSIDE RECORDS SUMMARY | 2024-03-14 18:01 | XMS_ITS | Encounter Summary ---
Author Organization [facility] Address [address] [place] [address] Care Team Providers Care Baker Pastry Name Role Phone Unknown, Provider Primary Care Provider Encounter Details Date Type Department Care Team (Latest Contact Info) Description 06/17/2014 11:39 EST - 06/17/2014 23:59 EST Hospital Encounter [address] [address] Unknown, ProviderMD Discharge Disposition: Home or Self Care Social [...] Code Departure Means Destination Home or Self Detention documented in this encounter Plan of Treatment Upcoming Encounters Date Type Department Care Team (Late st Contact Info) Description 03/23/2024 11:15 EDT Telemedicine [facility] Rheumatology [address] [place], [place] [phone] Venecia Vega MD 130 [facility] [address] [place] [phone] documented as of this encounter Visit Diagnoses Not on filedocumented in this encounter Care Teams Baker Pastry Relationship Specialty Start Date End Date Unknown, Provider, PCP - General 07/31/13 04/01/15 documented as of this encounter
--- OUTSIDE RECORDS SUMMARY | 2024-03-14 18:01 | XMS_ITS | Encounter Summary ---
Author Organization [facility] Address [address] [place] [address] Care Team Providers Care Inspector Balance Wheel Motion Name Role Phone None, Provider Primary Care Provider Unavailabl e Encounter Details Date Type Department Care Team (Latest Contact Info) Description 12/31/2015 11:50 EDT - 12/31/2015 23:59 EDT Hospital Encounter [address] [address] Unknown, Provider, Discharge Disposition: Home or Self [...] Code Departure Means Destination Home or Self Snf documented in this encounter Plan of Treatment Upcoming Encounters Date Type Department Care Team (Late st Contact Info) Description 03/23/2024 11:[address] [facility] Rheumatology [address] [place], [place] [phone] Venecia Vega MD 130 [facility] [address] [place] [phone] documented as of this encounter Visit Diagnoses Not on filedocumented in this encounter Care Teams Inspector Balance Wheel Motion Relationship Specialty Start Date End Date None, Provider PCP - General 04/02/15 02/12/19 documented as of this encounter
--- OUTSIDE RECORDS SUMMARY | 2024-03-14 18:01 | XMS_ITS | Encounter Summary ---
Author Organization [facility] Address [address] [place] [address] Care Team Providers Care Outdoor Pursuits Instructor Name Role Phone None, Provider Primary Care Provider Serafin Zapata MD Primary Care Provider [phone] Encounter Details Date Type Department Care Team (Late st Contact Info) Description 11/11/2015 Historical Results Only [facility] Radiology Results [address] [place] [address] Arlyn Curiel PA-C [address] [place] [phone] Social History Tobacco Use Types Packs/Day Years Used Date Smoking Tobacco: Never Assessed Sex and Gender Information Value Date Recorded Sex Assigned at Not on file Gender Identity Female 07/04/2019 11:12 EST Sexual Orientation Not on file documented as of this encounter Plan of Treatment Upcoming Encounters Date Type Department Care Team (Late st Contact Info) Description 03/23/2024 11:15 EDT Telemedicine [facility] Rheumatology [address] [place], [place] [phone] Venecia Vega MD [address] [facility] [address] [place] [phone] documented as of this encounter Procedures Procedure Name Priority Date/Time Associated Diagnosis Comments US RENAL/BLADDER LIMITED 11/11/2015 15:17 EDT documented in this encounter Results * US RENAL/BLADDER LIMITED (11/11/2015 15:17 EDT) Anatomical Region Laterality Modality Abdomen, Body Other 11/11/2015 15:1 7 EDT Narrative 11/11/2015 15:22 EDT ? EXAM: ULTRASOUND/RENAL LIMITED ?EX. D/ (1515) ? CLINICAL INFORMATION: ? Indication: Nausea, dizziness, vomiting. ? Comparison: Renal ultrasound 11/03/2012. ? Technique: Sonographic examination of the kidneys was performed. ? Color Doppler imaging was also utilized. ? Findings: ? The right kidney is normal in size, shape and echotexture. It ? measures 12.0 cm in length. No right renal stone, focal renal lesion ? or hydronephrosis is identified. ? The left kidney is normal in size, shape and echotexture. It measures ? 11.7 cm in length. There is an echogenic focus within the left kidney ? midpole suspicious for a nonobstructing stone. No focal renal lesion ? or hydronephrosis is identified. ? IMPRESSION: ? 1. Findings suspicious for small nonobstructing stone in the left ? kidney midpole. ? 2. No hydronephrosis identified. ? REPORT SIGNED IN OTHER VENDOR SYSTEM 11/11/2015 ?Reported By: Luis Antonio Griffin MD ? CC: ? Transcribed Date/Time: 11/11/2015 (1522) ? Data Manager: ? Printed Date/Time: 12/15/2018 (2045) ? PAGE 1 ? Signed Report ? Procedure Note Luis Antonio Griffin MD - 05/10/2019 EXAM: ULTRASOUND/RENAL LIMITED EX. D/ (1515) CLINICAL INFORMATION: Indication: Nausea, dizziness, vomiting. Comparison: Renal ultrasound 11/03/2012. Technique: Sonographic examination of the kidneys was performed. Color Doppler imaging was also utilized. Findings: The right kidney is normal in size, shape and echotexture. It measures 12.0 cm in length. No right renal stone, focal renallesion or hydronephrosis is identified. The left kidney is normal in size, shape and echotexture. Itmeasures 11.7 cm in length. There is an echogenic focus within the leftkidney midpole suspicious for a nonobstructing stone. No focal renallesion or hydronephrosis is identified. IMPRESSION: 1. Findings suspicious for small nonobstructing stone in the left kidney midpole. 2. No hydronephrosis identified. REPORT SIGNED IN OTHER VENDOR SYSTEM 11/11/2015 Reported By: Luis Antonio Griffin MD CC: Transcribed Date/Time: 11/11/2015 (1522) Data Manager: Printed Date/Time: 12/15/2018 (2045) PAGE 1 Signed Report Arlyn Curiel PA-C IMPatsy US OB OR DERABLES documented in this encounter Visit Diagnoses Not on filedocumented in this encounter Care Teams Outdoor Pursuits Instructor Relationship Specialty Start Date End Date None, Provider PCP - General 04/02/15 02/12/19 Serafin Saucedo MD [address] [place] [phone] PCP - General 02/13/19 04/25/20 documented as of this encounter
--- OUTSIDE RECORDS SUMMARY | 2024-03-14 18:01 | XMS_ITS | Encounter Summary ---
Author Organization [facility] Address [address] [place] [address] Care Team Providers Care Mold Filler Plastic Dolls Name Role Phone None, Provider Primary Care Provider Unavailabl e Encounter Details Date Type Department Care Team (Latest Contact Info) Description 07/28/2016 8:29 EST - 07/28/2016 23:59 EST Hospital Encounter [facility] [address] [place] [address] Unknown, ProviderMD Discharge Disposition: Home or Self [...] Telemedicine [facility] Rheumatology [address] [place], [place] [phone] Venecia Vega MD 130 [facility] [address] [place] [phone] documented as of this encounter Visit Diagnoses Not on filedocumented in this encounter Care Teams Mold Filler Plastic Dolls Relationship Specialty Start Date End Date None, Provider PCP - General 04/02/15 02/12/19 documented as of this encounter
--- OUTSIDE RECORDS SUMMARY | 2024-03-14 18:01 | XMS_ITS | Encounter Summary ---
Author Organization [facility] Address [address] [place] [address] Care Team Providers Care Grocery Store Clerk Name Role Phone None, Provider Primary Care Provider Serafin Zapata MD Primary Care Provider [phone] Encounter Details Date Type Department Care Team (Late st Contact Info) Description 08/16/2017 Historical Results Only [facility] - Main [place] [address] [place] [phone] Serafin Saucedo MD [address] [place] [phone] Social History Tobacco Use Types Packs/Day Years [...] 11:15 EDT Telemedicine [facility] Rheumatology [address] [place], [place] [phone] Venecia Vega MD [address] [place] [address] [address] [place] [phone] documented as of this encounter Procedures Procedure Name Priority Date/Time Associated Diagnosis Comments THYROID CASCADE Routine 08/16/2017 11:07 EST MAGNESIUM Routine 08/16/2017 11:07 EST COMPREHENSIVE METABOLIC PANEL (CMP) Routine 08/16/2017 11:07 EST documented in this encounter Results * MAGNESIUM (08/16/2017 11:07 EST) Magnesium 1.90 1.7 - 2.8 mg/dL 08/16/2017 15:22 [facility] 08/16/2017 11:0 7 EST 08/16/2017 15:03 EST Serafin Saucedo MD CHEMISTRY & BLOOD G ORDERABLES [facility] * (ABNORMAL) COMPREHENSIVE METABOLIC PANEL (CMP) (08/16/2017 11:07 EST) Pathologist [facility] Albumin % 4.2 3.4 - 4.9 g/dL 08/16/2017 15:22 [facility] ALKALINE PHOSPHATASE - [facility] 68 38 - 126 U/L 08/16/2017 15:22 [facility] BILIRUBIN TOTAL 0.3 0.2 - 1.3 mg/dL 08/16/2017 15:22 [facility] BUN - [facility] 11 10 - 26 mg/dL 08/16/2017 15:22 [facility] CALCIUM - [facility] 9.9 8.5 - 10.5 mg/dL 08/16/2017 15:22 [facility] Chloride 103 96 - 110 mmol/L 08/16/2017 15:22 [facility] CO2 Total 25 22 - 32 mEq/L 08/16/2017 15:22 [facility] CREATININE 0.77 0.52 - 1.04 mg/dL 08/16/2017 15:22 [facility] eGFR >60 08/16/2017 15:22 [facility] Comment: Chronic renal impairment is defined as GFR <60 Multiply result by 1.210 for patients. eGFR calculated using the IDMS-traceable MDRD Study Equation. ??(effective 05/07/2014) Anion Gap 12 0 - 18 08/16/2017 15:22 [facility] GLUCOSE - [facility] 97 70 - 100 mg/dL 08/16/2017 15:22 [facility] Potassium 4.0 3.5 - 5.0 mEq/L 08/16/2017 15:22 [facility] Sodium 140 136 - 145 mEq/L 08/16/2017 15:22 [facility] TOTAL PROTEIN - [facility] 7.3 6.2 - 8.2 gm/dL 08/16/2017 15:22 [facility] SGOT/AST - [facility] 52(H) 14 - 36 U/L 08/16/2017 15:22 [facility] SGPT/ALT - [facility] 72(H) 9 - 52 U/L 8 15:22 [facility] 08/16/2017 11:0 7 EST 08/16/2017 15:03 EST Serafin Saucedo MD CHEMISTRY & BLOOD G ORDERABLES [facility] * THYROID CASCADE (08/16/2017 11:07 EST) TSH 1.38 0.46 - 4.68 uIU/mL 08/16/2017 15:52 [facility] 08/16/2017 11:0 7 EST 08/16/2017 15:03 EST Serafin Saucedo MD CHEMISTRY & BLOOD G ORDERABLES [facility] documented in this encounter Visit Diagnoses Not on filedocumented in this encounter Care Teams Grocery Store Clerk Relationship Specialty Start Date End Date None, Provider PCP - General 04/02/15 02/12/19 Serafin Saucedo MD [address] [place] [phone] PCP - General 02/13/19 04/25/20 documented as of this encounter
--- OUTSIDE RECORDS SUMMARY | 2024-03-14 18:01 | XMS_ITS | Encounter Summary ---
Author Organization [facility] Address [address] [place] [address] Care Team Providers Care Supervisor Slashing Department Name Role Phone Unknown, Provider Primary Care Provider None, Provider Primary Care Provider Serafin Zapata MD Primary Care Provider Encounter Details Date Type Department Care Team (Late st Contact Info) Description 03/08/[address] [facility] Radiology Results [address] [place] [address] Serafin Saucedo MD [address] [place] [phone] Social History Tobacco Use Types Packs/Day [...] [facility] [address] [place], [place] [address] Venecia Vega MD 130 [facility] [address] [place] [phone] documented as of this encounter Procedures Procedure Name Priority Date/Time Associated Diagnosis Comments US PELVIS TRANSVAGINAL COMPLETE 03/08/2015 15:10 EDT documented in this encounter Results * US PELVIS TRANSVAGINAL (03/08/2015 15:10 EDT) Anatomical Region Laterality Modality Pelvis Other 03/08/2015 15:1 0 EDT Narrative 03/08/2015 15:21 EDT ? EXAM: ULTRASOUND/TRANSVAGINAL - AUTOMATIC FANCY MACHINE OPERATOR W/ DO EX. D/ (1502) ? CLINICAL INFORMATION: ? PROGRESSIVE ABD DISTENTION, TENDER LOWER ABDOMEN ? TRANSVAGINAL - AUTOMATIC FANCY MACHINE OPERATOR W/ DOPPLER ??03/05/2015 1:39 PM ? Clinical History/Comments: Abdominal bloating and distention. ? Comparison: Pelvic ultrasound 06/01/[address] abdomen pelvis ? 03/14/2014 ? Technique: Ultrasound imaging of the pelvis was obtained ? transvaginally. ? Findings: The uterus measures 8.5 x 3.9 x 4.8 centimeters. The ? endometrium measures 6 mm in thickness. An IUD is present. The ? proximal portion of the IUD at the level of the lower uterine segment ? appears discontinuous, best seen on images 42 and 43. There are small ? nabothian cysts. This is also demonstrated on the cinematic images. ? The right ovary measures 2.8 x 1.9 x 2.5 centimeters. There is intact ? Doppler flow. There is a simple right ovarian cyst measuring 1.5 cm. ? The left ovary measures 3.8 x 1.9 x 1.9 centimeters. There is intact ? Doppler flow. ? Impression: ? 1. The proximal portion of the IUD appears discontinuous at the level ? of the lower uterine segment. This is suspicious for a fractured IUD. ? Radiographs of the pelvis are suggested for confirmation. FOOD PRODUCTS SALES REPRESENTATIVE ? referral is advised. ? 2. Intact Doppler flow to both ovaries. ? Case was reviewed with Dr. Saucedo by Dr. Singh at the time of ? interpretation. ? REPORT SIGNED IN OTHER VENDOR SYSTEM 03/08/2015 ?Reported By: Bahman Singh MD ? CC: ? Transcribed Date/Time: 03/08/2015 (1521) ? Auto Claims Adjuster: ? Printed Date/Time: 12/13/2018 (0844) ? PAGE 1 ? Signed Report ? Procedure Note Bahman Singh MD - 05/09/2019 EXAM: ULTRASOUND/TRANSVAGINAL - AUTOMATIC FANCY MACHINE OPERATOR W/ DO EX. D/ (1502) CLINICAL INFORMATION: PROGRESSIVE ABD DISTENTION, TENDER LOWER ABDOMEN TRANSVAGINAL - AUTOMATIC FANCY MACHINE OPERATOR W/ DOPPLER 03/05/2015 1:39 PM Clinical History/Comments: Abdominal bloating and distention. Comparison: Pelvic ultrasound 06/01/[address] abdomen pelvis 03/14/2014 Technique: Ultrasound imaging of the pelvis was obtained transvaginally. Findings: The uterus measures 8.5 x 3.9 x 4.8 centimeters. The endometrium measures 6 mm in thickness. An IUD is present. The proximal portion of the IUD at the level of the lower uterinesegment appears discontinuous, best seen on images 42 and 43. There aresmall nabothian cysts. This is also demonstrated on the cinematic images. The right ovary measures 2.8 x 1.9 x 2.5 centimeters. There isintact Doppler flow. There is a simple right ovarian cyst measuring 1.5cm. The left ovary measures 3.8 x 1.9 x 1.9 centimeters. There isintact Doppler flow. Impression: 1. The proximal portion of the IUD appears discontinuous at thelevel of the lower uterine segment. This is suspicious for a fracturedIUD. Radiographs of the pelvis are suggested for confirmation. FOOD PRODUCTS SALES REPRESENTATIVE referral is advised. 2. Intact Doppler flow to both ovaries. Case was reviewed with Dr. Saucedo by Dr. Singh at the time of interpretation. REPORT SIGNED IN OTHER VENDOR SYSTEM 03/08/2015 Reported By: Bahman Singh MD CC: Transcribed Date/Time: 03/08/2015 (1521) Auto Claims Adjuster: Printed Date/Time: 12/13/2018 (4328) PAGE 1 Signed Report Serafin Saucedo MD IMG OB ORDERABLE S documented in this encounter Visit Diagnoses Not on filedocumented in this encounter Care Teams Supervisor Slashing Department Relationship Specialty Start Date End Date Unknown, Provider, PCP - General 07/31/13 04/01/15 None, Provider PCP - General 04/02/15 02/12/19 Serafin Saucedo MD [address] [place] [phone] PCP - General 02/13/19 04/25/20 documented as of this encounter
--- OUTSIDE RECORDS SUMMARY | 2024-03-14 18:01 | XMS_ITS | Encounter Summary ---
Author Organization [facility] Address [address] [place] [address] Care Team Providers Care Grocery Stock Clerk Name Role Phone None, Provider Primary Care Provider Serafin Zapata MD Primary Care Provider [phone]- [phone] Encounter Details Date Type Department Care Team (Late st Contact Info) Description 10/23/2016 Historical Results Only [facility] Radiology Results [address] [place], [place] [phone] Serafin Saucedo MD [address] [place] [phone] Social History Tobacco Use Types Packs/Day [...] [facility] Rheumatology [address] [place] [address] Venecia Vega MD 130 [facility] [address] [place] [phone] documented as of this encounter Procedures Procedure Name Priority Date/Time Associated Diagnosis Comments MR ABDOMEN W CONTRAST 10/23/2016 18:05 EDT documented in this encounter Results * MR ABDOMEN W CONTRAST (10/23/2016 18:05 EDT) Anatomical Region Laterality Modality Other 10/23/2016 18:0 5 EDT Narrative 10/23/2016 18:25 EDT ? EXAM: CAT SCAN/ABDOMEN WITH CONTRAST ?EX. D/ (1717) ? CLINICAL INFORMATION: ? K76.89 LIVER NODULE, 2.5cm ? MRI DEGRADED BY RESPIRATORY MOTION ARTIFACT ? ABDOMEN WITH CONTRAST ? Signs and Symptoms/Comments: ??K76.89 LIVER NODULE, 2.5cm: MRI ? DEGRADED BY RESPIRATORY MOTION ARTIFACT ? Comparison: MR abdomen on 10/09/2016. Right upper quadrant ultrasound ? on 04/10/2016. CT abdomen pelvis on 03/10/2015. ? Technique: CT abdomen was performed with the administration of ? intravenous Omnipaque 350 and oral barium contrast. Hepatic arterial, ? portal venous, and delayed phases were acquired (Liver Protocol) ? Multiplanar reconstructions were performed. ? FINDINGS: ? Mild-moderate diffuse hepatosteatosis is present. No focal liver ? lesion is identified. Specifically, no CT correlate is identified to ? the 2 cm echogenic lesion in the right hepatic lobe on the comparison ? ultrasound of April 2016. The liver contour is smooth. No ? perihepatic ascites is present. No intra or extrahepatic biliary ? ductal dilatation is present. A tiny density in the dependent portion ? of the gallbladder fundus is suspicious for cholelithiasis (portal ? venous axial image 68). There is no CT evidence of acute ? cholecystitis. The pancreas is normal. The spleen is normal. The ? adrenal glands are normal. There is a 7 mm nonobstructing calculus in ? the mid left kidney (portal venous axial image 52, coronal image 84). ? No hydronephrosis is present. ? The stomach is normal. The visible small and large bowel are ? unremarkable. No intraperitoneal free fluid or free air is present in ? the visible abdomen. A tiny fat-containing umbilical hernia is ? present. ? No enlarged abdominal lymph nodes are present. The major vascular ? structures are unremarkable. The osseous structures are unremarkable. ? The visible lung bases are unremarkable. ? IMPRESSION: ? 1. ??No CT correlate identified to the 2 cm echogenic lesion on prior ? ultrasound. Given mild-moderate hepatosteatosis, I suspect this may ? have represented a small focus of focal fatty replacement. ? Regardless, the absence of a suspicious lesion on this multiphase CT ? argues against a concerning focal liver lesion. If desired, ? surveillance ultrasound may be performed in 6-12 months. ? 2. ??Cholelithiasis without evidence of acute cholecystitis. ? PAGE 1 ? Signed Report ? (CONTINUED) ? 3. ??Nonobstructing 7 mm left renal calculus. ? REPORT SIGNED IN OTHER VENDOR SYSTEM 10/23/2016 ?Reported By: Vasiliy Scott MD ? CC: ? Transcribed Date/Time: 10/23/2016 (1825) ? Hat Brusher Machine: ? Printed Date/Time: 12/17/2018 (0945) ? PAGE 2 ? Signed Report ? Procedure Note Vasiliy Scott MD - 05/10/2019 EXAM: CAT SCAN/ABDOMEN WITH CONTRAST EX. D/ (1717) CLINICAL INFORMATION: K76.89 LIVER NODULE, 2.5cm MRI DEGRADED BY RESPIRATORY MOTION ARTIFACT ABDOMEN WITH CONTRAST Signs and Symptoms/Comments: K76.89 LIVER NODULE, 2.5cm: MRI DEGRADED BY RESPIRATORY MOTION ARTIFACT Comparison: MR abdomen on 10/09/2016. Right upper quadrant ultrasound on 04/10/2016. CT abdomen pelvis on 03/10/2015. Technique: CT abdomen was performed with the administration of intravenous Omnipaque 350 and oral barium contrast. Hepaticarterial, portal venous, and delayed phases were acquired (Liver Protocol) Multiplanar reconstructions were performed. FINDINGS: Mild-moderate diffuse hepatosteatosis is present. No focal liver lesion is identified. Specifically, no CT correlate is identifiedto the 2 cm echogenic lesion in the right hepatic lobe on thecomparison ultrasound of April 2016. The liver contour is smooth. No perihepatic ascites is present. No intra or extrahepatic biliary ductal dilatation is present. A tiny density in the dependentportion of the gallbladder fundus is suspicious for cholelithiasis (portal venous axial image 68). There is no CT evidence of acute cholecystitis. The pancreas is normal. The spleen is normal. The adrenal glands are normal. There is a 7 mm nonobstructing calculusin the mid left kidney (portal venous axial image 52, coronal image84). No hydronephrosis is present. The stomach is normal. The visible small and large bowel are unremarkable. No intraperitoneal free fluid or free air is presentin the visible abdomen. A tiny fat-containing umbilical hernia is present. No enlarged abdominal lymph nodes are present. The major vascular structures are unremarkable. The osseous structures areunremarkable. The visible lung bases are unremarkable. IMPRESSION: 1. No CT correlate identified to the 2 cm echogenic lesion onprior ultrasound. Given mild-moderate hepatosteatosis, I suspect this may have represented a small focus of focal fatty replacement. Regardless, the absence of a suspicious lesion on this multiphaseCT argues against a concerning focal liver lesion. If desired, surveillance ultrasound may be performed in 6-12 months. 2. Cholelithiasis without evidence of acute cholecystitis. PAGE 1 Signed Report (CONTINUED) 3. Nonobstructing 7 mm left renal calculus. REPORT SIGNED IN OTHER VENDOR SYSTEM 10/23/2016 Reported By: Vasiliy Scott MD CC: Transcribed Date/Time: 10/23/2016 (0976) Hat Brusher Machine: Printed Date/Time: 12/17/2018 (5586) PAGE 2 Signed Report Serafin Saucedo MD IMG MRI ORDERABLES documented in this encounter Visit Diagnoses Not on filedocumented in this encounter Care Teams Grocery Stock Clerk Relationship Specialty Start Date End Date None, Provider PCP - General 04/02/15 02/12/19 Serafin Saucedo MD [address] [place] [phone] PCP - General 02/13/19 04/25/20 documented as of this encounter
--- OUTSIDE RECORDS SUMMARY | 2024-03-14 18:01 | XMS_ITS | Encounter Summary ---
Author Organization [facility] Address [address] [place] [address] Care Team Providers Care Office Administration Name Role Phone None, Provider Primary Care Provider Serafin Zapata MD Primary Care Provider [phone] Encounter Details Date Type Department Care Team (Late st Contact Info) Description 05/27/2016 Historical Results Only [facility] - Main [place] [address] [place] [phone] Serafin Saucedo MD [address] [place] [phone] Social History Tobacco Use Types Packs/Day [...] EDT Telemedicine [facility] Rheumatology [address] [place] [phone] Venecia Vega MD [address] [place] [address] [address] [place] [phone] documented as of this encounter Procedures Procedure Name Priority Date/Time Associated Diagnosis Comments CYCLIC CITRULLINATED PEPTIDE Routine 05/27/2016 15:16 EST ANTI NUCLEAR AB (FRANCESCO), IFA Routine 05/27/2016 15:16 EST documented in this encounter Results * ANTI NUCLEAR ANTIBODY (05/27/2016 15:16 EST) Antinuclear Ab, S <1:80 <1:80 06/02/2016 13:53 EST [facility] 05/27/2016 15:1 6 EST 05/27/2016 15:16 EST Narrative [facility] - 06/02/2016 13:53 EST Does PT Have a Latex Allergy? NO Serafin Saucedo MD IMMUNOLOGY AND SERO LOGY ORDERABLES Performing Organization Address City/[facility]/ZIP Co de Phone Number [facility] * CYCLIC CITRULLINATED PEPTIDE - [facility] (05/27/2016 15:16 EST) Cyclic Citrullinated Peptide Ab, S <15.6 () U 05/30/2016 7:13 EST [facility] Comment: REFERENCE VALUE <20.0 (Negative) Test Performed by: [facility] [place] [address] Fios Line Installer: Singh Small II, M.D., Ph.D. *CP = Citrullinated Peptide 05/27/2016 15:1 6 EST 05/27/2016 15:16 EST Narrative [facility] - 05/30/2016 7:13 EST Does PT Have a Latex Allergy? NO Serafin Saucedo MD CHEMISTRY & BLOOD G ORDERABLES Performing Organization Address City/[facility]/ZIP Co de Phone Number [facility] documented in this encounter Visit Diagnoses Not on filedocumented in this encounter Care Teams Office Administration Relationship Specialty Start Date End Date None, Provider PCP - General 04/02/15 02/12/19 Serafin Saucedo MD [address] [place] [phone] PCP - General 02/13/19 04/25/20 documented as of this encounter
--- OUTSIDE RECORDS SUMMARY | 2024-03-14 18:01 | XMS_ITS | Encounter Summary ---
Author Organization [facility] Address [address] [place] [address] Care Team Providers Care Senior Cost Analyst Name Role Phone Unknown, Provider Primary Care Provider None, Provider Primary Care Provider Serafin Zapata MD Primary Care Provider Encounter Details Date Type Department Care Team (Late st Contact Info) Description 03/10/2015 Historical Results Only [facility] Radiology Results [address] [place] [address] Víctor Edmonds MD [address] [place] [address] Social History Tobacco Use Types Packs/Day Years Used Date Smoking Tobacco: Never Assessed Sex and Gender Information Value Date Recorded Sex Assigned at Not on file Gender Identity Female 07/04/2019 11:12 EST Sexual Orientation Not on file documented as of this encounter Plan of Treatment Upcoming Encounters Date Type Department Care Team (Late st Contact Info) Description 03/23/2024 11:15 EDT Telemedicine [facility] Rheumatology [address] [place], [place] [id number] Venecia Vega MD [address] [facility] [address] [place] [address] documented as of this encounter Procedures Procedure Name Priority Date/Time Associated Diagnosis Comments CT ABDOMEN PELVIS W WO CONTRAST 03/10/2015 11:19 EDT documented in this encounter Results * CT ABDOMEN PELVIS W WO CONTRAST (03/10/2015 11:19 EDT) Anatomical Region Laterality Modality Other 03/10/2015 11:1 9 EDT Narrative 03/10/2015 11:19 EDT ? EXAM: CAT SCAN/ABDOMEN PELVIS W/WO CONTRA EX. D/ (1105) ? CLINICAL INFORMATION: ? FLANK PAIN AND TENDERNESS ? EXAM: ? CT Abdomen and Pelvis Without and With Intravenous Contrast. ? CLINICAL HISTORY: ? The patient is a 29 years ??female; Rt flank pain and tenderness ? 03/10/2015 10:19 AM ? TECHNIQUE: ? Axial computed tomography images of the abdomen and pelvis ? without and with intravenous contrast. ? Coronal and sagittal reformatted images were created and ? reviewed. ? CONTRAST: ? 75 mL of OMNI 350 administered intravenously. ? COMPARISON: ? CT - ABDOMEN PELVIS WITHOUT CONTRAS 03/14/2014 4:04:27 PM ? FINDINGS: ? Lower thorax: No acute findings. ? ABDOMEN: ? Liver: ??Unremarkable. ??No mass. ? Gallbladder and bile ducts: ??Unremarkable. ??No calcified stones. ?No ductal dilation. ? Pancreas: ??Unremarkable. ??No ductal dilation. ??No mass. ? Spleen: ??Unremarkable. ??No splenomegaly. ? Adrenals: ??Unremarkable. ??No mass. ? Kidneys and ureters: ??There is a nonobstructing 6 mm x 4 mm left ? intrarenal calculus.No right renal calculi are identified.There ? is no evidence of hydronephrosis or ureteral calculi.There is a ? symmetric renal enhancement pattern bilaterally.There is no ? perinephric stranding or fluid. ? PELVIS: ? Bladder: ??Unremarkable. ??No stones. ??No mass. ? Reproductive: ??The uterus and adnexal structures demonstrate no ? significant abnormalities. ??An intrauterine device is present in ? satisfactory position. ? Appendix: ??The appendix is normal in appearance and there are no ? periappendiceal inflammatory changes. ? ABDOMEN ?? PELVIS: ? Stomach and bowel: ??Unremarkable. ??No obstruction. ??No mucosal ? thickening. ? Peritoneum: ??There is a small amount of free pelvic fluid ? present. There is no free intraperitoneal air. There is no ? evidence of focal encapsulated fluid collections to suggest ? abscess formation. ? Lymph nodes: ??Unremarkable. ??No enlarged lymph nodes. ? Vasculature: ??Unremarkable. ??No aortic aneurysm. ? Bones: ??No acute fracture. ? PAGE 1 ? Signed Report ? (CONTINUED) ? IMPRESSION: ? 1. ??There is a nonobstructing left intrarenal calculus.No right ? renal calculi are identified. ??No evidence of hydronephrosis or ? pyelonephritis. ? 2. ??No acute intra-abdominal or pelvic abnormality is identified. ? Remainder of findings as described above. ? REPORT SIGNED IN OTHER VENDOR SYSTEM 03/10/2015 ?Reported By: Angela Gerardo MD ? CC: ? Transcribed Date/Time: 03/10/2015 (1119) ? Resident Services Manager: [id number] ? Printed Date/Time: 12/13/2018 (0844) ? PAGE 2 ? Signed Report ? Procedure Note Angela Gerardo - 05/09/2019 EXAM: CAT SCAN/ABDOMEN PELVIS W/WO CONTRA EX. D/ (1105) CLINICAL INFORMATION: FLANK PAIN AND TENDERNESS EXAM: CT Abdomen and Pelvis Without and With Intravenous Contrast. CLINICAL HISTORY: The patient is a 29 years female; Rt flank pain and tenderness 03/10/2015 10:19 AM TECHNIQUE: Axial computed tomography images of the abdomen and pelvis without and with intravenous contrast. Coronal and sagittal reformatted images were created and reviewed. CONTRAST: 75 mL of OMNI 350 administered intravenously. COMPARISON: CT - ABDOMEN PELVIS WITHOUT CONTRAS 03/14/2014 4:04:27 PM FINDINGS: Lower thorax: No acute findings. ABDOMEN: Liver: Unremarkable. No mass. Gallbladder and bile ducts: Unremarkable. No calcified stones. No ductal dilation. Pancreas: Unremarkable. No ductal dilation. No mass. Spleen: Unremarkable. No splenomegaly. Adrenals: Unremarkable. No mass. Kidneys and ureters: There is a nonobstructing 6 mm x 4 mm left intrarenal calculus.No right renal calculi are identified.There is no evidence of hydronephrosis or ureteral calculi.There is a symmetric renal enhancement pattern bilaterally.There is no perinephric stranding or fluid. PELVIS: Bladder: Unremarkable. No stones. No mass. Reproductive: The uterus and adnexal structures demonstrate no significant abnormalities. An intrauterine device is present in satisfactory position. Appendix: The appendix is normal in appearance and there are no periappendiceal inflammatory changes. ABDOMEN PELVIS: Stomach and bowel: Unremarkable. No obstruction. No mucosal thickening. Peritoneum: There is a small amount of free pelvic fluid present. There is no free intraperitoneal air. There is no evidence of focal encapsulated fluid collections to suggest abscess formation. Lymph nodes: Unremarkable. No enlarged lymph nodes. Vasculature: Unremarkable. No aortic aneurysm. Bones: No acute fracture. PAGE 1 Signed Report (CONTINUED) IMPRESSION: 1. There is a nonobstructing left intrarenal calculus.No right renal calculi are identified. No evidence of hydronephrosis or pyelonephritis. 2. No acute intra-abdominal or pelvic abnormality is identified. Remainder of findings as described above. REPORT SIGNED IN OTHER VENDOR SYSTEM 03/10/2015 Reported By: Angela Gerardo MD CC: Transcribed Date/Time: 03/10/2015 (1119) Resident Services Manager: Printed Date/Time: 12/13/2018 (0844) PAGE 2 Signed Report Víctor Edmonds MD IMG CT ORDERABLES documented in this encounter Visit Diagnoses Not on filedocumented in this encounter Care Teams Senior Cost Analyst Relationship Specialty Start Date End Date Unknown, Provider, PCP - General 07/31/13 04/01/15 None, Provider PCP - General 04/02/15 02/12/19 Serafin Saucedo MD [address] [place] [phone] PCP - General 02/13/19 04/25/20 documented as of this encounter
--- OUTSIDE RECORDS SUMMARY | 2024-03-14 18:01 | XMS_ITS | Encounter Summary ---
Author Organization [facility] Address [address] [place] [address] Care Team Providers Care Youth Services Librarian Name Role Phone None, Provider Primary Care Provider Serafin Zapata MD Primary Care Provider [phone] Encounter Details Date Type Department Care Team (Late st Contact Info) Description 06/04/2017 Historical Results Only [facility] Lab - Main [place] [address] [place] [address] Venecia Vega MD [address] [place] [address] [address] Social History Tobacco Use Types [...] EDT Telemedicine [facility] Rheumatology [address] [place] [address] Venecia Vega MD [address] [place] [address] [address] documented as of this encounter Procedures Procedure Name Priority Date/Time Associated Diagnosis Comments COMPLETE BLOOD COUNT WITH DIFFERENTIAL (AUTO) Routine 06/04/2017 9:11 EST LYME AB Routine 06/04/2017 9:11 EST ZZLYME IMMUNOBLOT CONFIRMATION Routine 06/04/2017 9:11 EST C REACTIVE PROTEIN Routine 06/04/2017 9: 11 EST C REACTIVE PROTEIN Routine 06/04/2017 9: 11 EST COMPREHENSIVE METABOLIC PANEL (CMP) Routine 06/04/2017 9:11 EST documented in this encounter Results * (ABNORMAL) C REACTIVE PROTEIN (06/04/2017 9:11 EST) C-Reactive Protein 12.6(H) <10.0 mg/L 06/04/2017 11:11 [facility] 06/04/2017 9:11 EST 06/04/2017 9:11 EST [facility] - 06/04/2017 11:11 EST Does PT Have a Latex Allergy? NO Venecia Vega MD CHEMISTRY & BLOO D GAS ORDERABLES [facility] * (ABNORMAL) COMPREHENSIVE METABOLIC PANEL (CMP) (06/04/2017 9:11 EST) Pathologist [facility] Albumin % 4.1 3.4 - 4.9 g/dL 06/04/2017 11:11 [facility] ALKALINE PHOSPHATASE - [facility] 73 38 - 126 U/L 06/04/2017 11:11 [facility] BILIRUBIN TOTAL 0.5 0.2 - 1.3 mg/dL 06/04/2017 11:11 [facility] BUN - [facility] 11 10 - 26 mg/dL 06/04/2017 11:11 [facility] CALCIUM - [facility] 9.4 8.5 - 10.5 mg/dL 06/04/2017 11:11 [facility] Chloride 100 96 - 110 mmol/L 06/04/2017 11:11 [facility] CO2 Total 27 22 - 32 mEq/L 06/04/2017 11:11 [facility] CREATININE 0.71 0.52 - 1.04 mg/dL 06/04/2017 11:11 [facility] eGFR >60 06/04/2017 11:11 [facility] Comment: Chronic renal impairment is defined as GFR <60 Multiply result by 1.210 for patients. eGFR calculated using the IDMS-traceable MDRD Study Equation. ??(effective 05/07/2014) Anion Gap 12 5 - 15 06/04/2017 11:11 [facility] GLUCOSE - [facility] 78 70 - 100 mg/dL 06/04/2017 11:11 [facility] Potassium 3.9 3.5 - 5.0 mEq/L 06/04/2017 11:11 [facility] Sodium 139 136 - 145 mEq/L 06/04/2017 11:11 [facility] TOTAL PROTEIN - [facility] 7.4 6.2 - 8.2 gm/dL 06/04/2017 11:11 [facility] SGOT/AST - [facility] 44(H) 14 - 36 U/L 06/04/2017 11:11 [facility] SGPT/ALT - [facility] 59(H) 9 - 52 U/L 7 11:11 [facility] 06/04/2017 9:11 EST 06/04/2017 9:11 [facility] - 06/04/2017 11:11 EST Does PT Have a Latex Allergy? NO Venecia Vega MD CHEMISTRY & BLOO D GAS ORDERABLES [facility] * LYME AB (06/04/2017 9:11 EST) Lyme Ab IgG NEGATIVE 06/04/2017 14:53 [facility] Lyme Ab POSITIVE 06/04/2017 14:53 [facility] Comment:Reflex to [place] Bl ot has been ordered. 06/04/2017 9:11 EST 06/04/2017 9:11 [facility] - 06/04/2017 14:53 EST Does PT Have a Latex Allergy? NO Venecia Vega MD IMMUNOLOGY AND S EROLOGY ORDERABLES [facility] * (ABNORMAL) C REACTIVE PROTEIN (06/04/2017 9:11 EST) SED RATE - [facility] 35(H) 1 - 17 mm/hr 06/04/2017 9:40 [facility] 06/04/2017 9:11 EST 06/04/2017 9:11 [facility] - 06/04/2017 9:40 EST Does PT Have a Latex Allergy? NO Venecia Vega MD CHEMISTRY & BLOO D GAS ORDERABLES Performing Organization Address City/[facility]/ZIP Co de Phone Number [facility] * (ABNORMAL) COMPLETE BLOOD COUNT WITH DIFFERENTIAL (AUTO) (06/04/2017 9:11 EST) Pathologist [facility] ABSOLUTE NEUTROPHIL COUN - [facility] 4.15 1.7 - 7.0 10e3/ul 06/04/2017 9:36 [facility] BASO # - [facility] 0.03 0.0 - 0.3 10e3/uL 06/04/2017 9:36 [facility] BASO % - [facility] 0 0 - 2 % 06/04/2017 9:36 [facility] EOS # - [facility] 0.35 0.05 - 0.5 10e3/uL 06/04/2017 9:36 [facility] EOS % - [facility] 4 0 - 5 % 06/04/2017 9:36 [facility] GRAN % - [facility] 44 40 - 80 % 06/04/2017 9:36 [facility] HEMATOCRIT - [facility] 41.4 34.0 - 47.0 % 06/04/2017 9:36 [facility] HEMOGLOBIN - [facility] 13.6 11.2 - 15.7 g/dl 06/04/2017 9:36 [facility] IG# - [facility] 0.03 0 - 0.07 10e3/uL 06/04/2017 9:36 [facility] IG% - [facility] 0.3 0 - 0.9 % 06/04/2017 9:36 [facility] LYMPH # - [facility] 4.29(H) 0.9 - 2.9 10e3/uL 06/04/2017 9:36 [facility] LYMPH% - [facility] 45(H) 20 - 40 % 06/04/2017 9:36 [facility] MEAN CORPUSCULAR HGB - [facility] 28.8 26 - 34 pg 06/04/2017 9:36 [facility] MEAN CORPUSCULAR HGB CONC - [facility] 32.9 31 - 36 g/dL 06/04/2017 9:36 [facility] MEAN CELL VOLUME - [facility] 87.7 77 - 100 fl 06/04/2017 9:36 [facility] MONO # - [facility] 0.69 0.3 - 0.9 10e3/uL 06/04/2017 9:36 [facility] MONO% - [facility] 7 0 - 12 % 06/04/2017 9:36 [facility] PLATELET COUNT 441(H) 150 - 400 10e3/ul 06/04/2017 9:36 [facility] RED BLOOD COUNT - [facility] 4.72 3.8 - 5.2 10e6/ul 06/04/2017 9:36 [facility] RED CELL DISTRI WIDTH - [facility] 13.7 11.8 - 15.6 % 06/04/2017 9:36 [facility] WHITE BLOOD COUNT - [facility] 9.5 3.5 - 10.5 10e3/ul 06/04/2017 9:36 [facility] 06/04/2017 9:11 EST 06/04/2017 9:11 [facility] - 06/04/2017 9:40 EST Does PT Have a Latex Allergy? NO Venecia Vega MD HEMATOLOGY & PF4 ORDERABLES [facility] * LYME IMMUNOBLOT CONFIRMATION (06/04/2017 9:11 EST) Lyme IGG Bands SEE COMMENTS () kDa 06/08/20 17 21:08 [facility] Comment:No bands detected. Lyme IGM Band(s) p23 () kDa 06/08/20 17 21:08 [facility] Lyme IgM ImmunoBlot Negative () 06/08/2017 21:08 [facility] Comment:Reference Range: Neg ative Lyme Immunoblot Interpretation SEE COMMENTS () 06/08/2017 21:08 [facility] Comment: Specific serologic response to B. [...] blot are positive. Test Performed by: [place] [address] Boot And Shoe Laborer: Navdeep Madera MD , Ph D Lyme IGG ImmunoBlot Negative () 06/08/2017 21:08 [facility] Comment:Reference Range: Neg ative 06/04/2017 9:11 EST 06/04/2017 9:11 EST Venecia Vega MD IMMUNOLOGY AND S EROLOGY ORDERABLES [facility] documented in this encounter Visit Diagnoses Not on filedocumented in this encounter Care Teams Youth Services Librarian Relationship Specialty Start Date End Date None, Provider PCP - General 04/02/15 02/12/19 Serafin Saucedo MD [address] [place] [phone] PCP - General 02/13/19 04/25/20 documented as of this encounter
--- OUTSIDE RECORDS SUMMARY | 2024-03-14 18:01 | XMS_ITS | Encounter Summary ---
Author Organization [facility] Address [address] [place] [address] Care Team Providers Care Relief Charge Nurse Name Role Phone None, Provider Primary Care Provider Serafin Zapata MD Primary Care Provider [phone] Encounter Details Date Type Department Care Team (Late st Contact Info) Description 08/24/[address] [facility] Radiology Results [address] [place] [address] Serafin Saucedo MD [address] [place] [phone] Social History Tobacco Use Types Packs/Day Years Used Date Smoking Tobacco: Never Assessed Sex and Gender Information Value Date Recorded Sex Assigned at Not on file Gender Identity Female 07/04/2019 11:12 EST Sexual Orientation Not on file documented as of this encounter Plan of Treatment Upcoming Encounters Date Type Department Care Team (Late st Contact Info) Description 03/23/2024 11:[address] [facility] Rheumatology [address] [place] [address] Venecia Vega MD [address] [facility] [address] [place] [phone] documented as of this encounter Visit Diagnoses Not on filedocumented in this encounter Care Teams Relief Charge Nurse Relationship Specialty Start Date End Date None, Provider PCP - General 04/02/15 02/12/19 Serafin Saucedo MD [address] [place] [phone] PCP - General 02/13/19 04/25/20 documented as of this encounter
--- OUTSIDE RECORDS SUMMARY | 2024-03-14 18:01 | XMS_ITS | Encounter Summary ---
Author Organization [facility] Address [address] [place] [address] Care Team Providers Care Wheel Press Operator Name Role Phone None, Provider Primary Care Provider Serafin Zapata MD Primary Care Provider [phone] Encounter Details Date Type Department Care Team (Late st Contact Info) Description 07/27/2016 Historical Results Only [facility] - Main [place] [address] [place] [address] Mary Braswell MD [address] [place], [place] [address], [address] [place] [address] Social History Tobacco Use Types Packs/Day Years Used Date Smoking Tobacco: Never Assessed Sex and Gender Information Value Date Recorded Sex Assigned at Not on file Gender Identity Female 07/04/2019 11:12 EST Sexual Orientation Not on file documented as of this encounter Plan of Treatment Upcoming Encounters Date Type Department Care Team (Late st Contact Info) Description 03/23/2024 11:15 EDT Telemedicine [facility] Rheumatology [address] [place] [phone] Venecia Vega MD [address] [place], [place] [address] [address] [place] [address] documented as of this encounter Procedures Procedure Name Priority Date/Time Associated Diagnosis Comments [facility] [place] SCREEN - [facility] Routine 07/27/2016 8: 30 EST COMPLETE BLOOD COUNT WITH DIFFERENTIAL (AUTO) Routine 07/27/2016 8:30 EST TYPE AND SCREEN Routine 07/27/2016 8:30 EST documented in this encounter Results * [place] SCREEN - [facility] (07/27/2016 8:30 EST) [place] SCREEN - [facility] NEG 07/27/2016 10:47 EST [facility] 07/27/2016 8:30 EST 07/27/2016 9:33 EST Narrative [facility] - 07/27/2016 10:47 EST Does PT Have a Latex Allergy? NO Enter/Edit CPT and ICD codes? N Mary Braswell MD HEMATOLOGY & PF4 ORD ERABLES [facility] * (ABNORMAL) COMPLETE BLOOD COUNT WITH DIFFERENTIAL (AUTO) (07/27/2016 8:30 EST) ABSOLUTE NEUTROPHIL COUN - [facility] 6.90 1.7 - 7.0 10e3/ul 07/27/2016 10:36 [facility] BASO # - [facility] 0.02 0.0 - 0.3 10e3/uL 07/27/2016 10:36 [facility] BASO % - [facility] 0 0 - 2 % 07/27/2016 10:36 [facility] EOS # - [facility] 0.37 0.05 - 0.5 10e3/uL 07/27/2016 10:36 [facility] EOS % - [facility] 3 0 - 5 % 07/27/2016 10:36 [facility] GRAN % - [facility] 60 40 - 80 % 07/27/2016 10:36 [facility] HEMATOCRIT - [facility] 42.8 34.0 - 47.0 % 07/27/2016 10:36 [facility] HEMOGLOBIN - [facility] 13.5 11.2 - 15.7 g/dl 07/27/2016 10:36 [facility] IG# - [facility] 0.06 0 - 0.07 10e3/uL 07/27/2016 10:36 [facility] IG% - [facility] 0.5 0 - 0.9 % 07/27/2016 10:36 [facility] LYMPH # - [facility] 3.41(H) 0.9 - 2.9 10e3/uL 07/27/2016 10:36 [facility] LYMPH% - [facility] 30 20 - 40 % 07/27/2016 10:36 [facility] MEAN CORPUSCULAR HGB - [facility] 26.3 26 - 34 pg 07/27/2016 10:36 [facility] MEAN CORPUSCULAR HGB CONC - [facility] 31.5 31 - 36 g/dL 07/27/2016 10:36 [facility] MEAN CELL VOLUME - [facility] 83.3 77 - 100 fl 07/27/2016 10:36 [facility] MONO # - [facility] 0.68 0.3 - 0.9 10e3/uL 07/27/2016 10:36 [facility] MONO% - [facility] 6 0 - 12 % 07/27/2016 10:36 [facility] PLATELET COUNT 505(H) 150 - 400 10e3/ul 07/27/2016 10:36 [facility] RED BLOOD COUNT - [facility] 5.14 3.8 - 5.2 10e6/ul 07/27/2016 10:36 [facility] RED CELL DISTRI WIDTH - [facility] 17.0(H) 11.8 - 15.6 % 07/27/2016 10:36 [facility] WHITE BLOOD COUNT - [facility] 11.4(H) 3.5 - 10.5 10e3/ul 07/27/2016 10:36 [facility] 07/27/2016 8:30 EST 07/27/2016 9:33 [facility] - 07/27/2016 10:36 EST Does PT Have a Latex Allergy? NO Mary Braswell MD HEMATOLOGY & PF4 ORD ERABLES [facility] * TYPE AND SCREEN (07/27/2016 8:30 EST) BLOOD TYPE - [facility] O Positive [facility] Antibody Screen NEGATIVE [facility] Specimen Expires: 07/30/16 [id number] [facility] Comment: PATIENT'S RESPONSES INDICATE A HISTORY OF SURGERY, TRANSFUSION OR WITHIN THE LAST 3 MONTHS. FOR BLOOD PRODUCTS, THIS SPECIMEN WILL OUTDATE 72 HOURS FROM THE TIME IT WAS COLLECTED. ??ANY BLOOD PRODUCTS ORDERED AFTER 72 HOURS MUST BE WORKED UP ON A NEW SPECIMEN. 07/27/2016 8:30 EST 07/27/2016 9:33 EST Narrative [facility] - 07/27/2016 9:19 EST Does PT Have a Latex Allergy? NO IS THIS A PREOPERATIVE PATIENT? N Mary Braswell MD BLOOD BANK TESTS [facility] documented in this encounter Visit Diagnoses Not on filedocumented in this encounter Care Teams Wheel Press Operator Relationship Specialty Start Date End Date None, Provider PCP - General 04/02/15 02/12/19 Serafin Saucedo MD [address] [place] [phone] PCP - General 02/13/19 04/25/20 documented as of this encounter
--- OUTSIDE RECORDS SUMMARY | 2024-03-14 18:01 | XMS_ITS | Encounter Summary ---
Author Organization [facility] Address [address] [place] [address] Care Team Providers Care Dependency Program Director Name Role Phone None, Provider Primary Care Provider Serafin Zapata MD Primary Care Provider [phone] Encounter Details Date Type Department Care Team (Late st Contact Info) Description 12/17/2016 Historical Results Only [facility] - Main [place] [address] [place] [phone] Serafin Saucedo MD [address] [place] [phone] Social History Tobacco Use Types Packs/Day [...] Description 03/23/2024 11:15 EDT Telemedicine [facility] Rheumatology [address] [place], [place] [phone] Venecia Vega MD [address] [place] [address] [address] [place] [address] documented as of this encounter Procedures Procedure Name Priority Date/Time Associated Diagnosis Comments LYME AB Routine 12/17/2016 9:10 EDT ZZLYME IMMUNOBLOT CONFIRMATION Routine 12/17/2016 9:10 EDT C REACTIVE PROTEIN Routine 12/17/2016 9: 10 EDT BASIC METABOLIC PANEL (BMP) Routine 12/17/2016 9:10 EDT documented in this encounter Results * (ABNORMAL) C REACTIVE PROTEIN (12/17/2016 9:10 EDT) [facility] C-Reactive Protein 7.38(H) 0.0 - 3.0 mg/L 12/17/2016 12:39 [facility] 12/17/2016 9:10 EDT 12/17/2016 11:41 EDT Serafin Saucedo MD CHEMISTRY & BLOOD G ORDERABLES [facility] * (ABNORMAL) BASIC METABOLIC PANEL (BMP) (12/17/2016 9:10 EDT) [facility] BUN - [facility] 6(L) 7 - 18 mg/dL 12/17/2016 12:39 [facility] CALCIUM - [facility] 8.7 8.5 - 10.1 mg/dL 12/17/2016 12:39 [facility] Chloride 106 98 - 107 mEq/L 12/17/2016 12:39 [facility] CO2 Total 27 21 - 32 mEq/L 12/17/2016 12:39 [facility] CREATININE 0.91 0.5 - 1.3 mg/dL 12/17/2016 12:39 [facility] eGFR >60 12/17/2016 12:39 [facility] Comment: Chronic renal impairment is defined as GFR <60 Multiply result by 1.210 for patients. eGFR calculated using the IDMS-traceable MDRD Study Equation. ??(effective 05/07/2014) Anion Gap 8 5 - 15 12/17/2016 12:39 [facility] GLUCOSE - [facility] 104(H) 70 - 100 mg/dL 12/17/2016 12:39 [facility] Potassium 3.8 3.5 - 5.0 mEq/L 12/17/2016 12:39 EDT [facility] Sodium 141 135 - 145 mEq/L 12/17/2016 12:39 EDT [facility] 12/17/2016 9:10 EDT 12/17/2016 11:41 EDT Serafin Saucedo MD CHEMISTRY & BLOOD G ORDERABLES Performing Organization Address [facility]/ZIP Co de Phone Number [facility] * LYME AB (12/17/2016 9:10 EDT) Lyme Ab IgG NEGATIVE 12/17/2016 14:53 EDT [facility] Lyme Ab POSITIVE 12/17/2016 14:53 EDT [facility] Comment:Reflex to Western Bl ot has been ordered. 12/17/2016 9:10 EDT 12/17/2016 11:41 EDT Serafin Saucedo MD IMMUNOLOGY AND SERO LOGY ORDERABLES Performing Organization Address [facility]/ZIP Co de Phone Number [facility] * LYME IMMUNOBLOT CONFIRMATION (12/17/2016 9:10 EDT) Pathologist [facility] Lyme IGG Bands SEE COMMENTS () kDa [facility]/19/19 [facility]No bands detected. Lyme IGM Band(s) p23 () kDa 12/19/19 17 21:28 EDT [facility] Lyme IgM ImmunoBlot Negative () 12/18/2016 21:28 T [facility] Comment:Reference Range: Neg ative Lyme Immunoblot Interpretation SEE COMMENTS () 12/18/2016 21:28 [facility] Comment: Specific serologic response to [...] blot are positive. Test Performed by: THE [address] [address] Watershed Engineer: Navdeep Madera MD , Ph D Lyme IGG ImmunoBlot Negative () 12/18/2016 21:28 EDT [facility] Comment:Reference Range: Neg ative 12/17/2016 9:10 EDT 12/17/2016 11:41 EDT Serafin Saucedo MD IMMUNOLOGY AND SERO LOGY ORDERABLES [facility] documented in this encounter Visit Diagnoses Not on filedocumented in this encounter Care Teams Dependency Program Director Relationship Specialty Start Date End Date None, Provider PCP - General 04/02/15 02/12/19 Serafin Saucedo MD [address] [place] [phone] PCP - General 02/13/19 04/25/20 documented as of this encounter
--- OUTSIDE RECORDS SUMMARY | 2024-03-14 18:01 | XMS_ITS | Encounter Summary ---
Author Organization [facility] Address [address] [place] [address] Care Team Providers Care Can Top Setter Name Role Phone None, Provider Primary Care Provider Serafin Zapata MD Primary Care Provider [phone] Encounter Details Date Type Department Care Team (Late st Contact Info) Description 05/22/2016 Historical Results Only [facility] - Main [place] [address] [place] [address] Reggie Wisdom MD [address] [facility] [address] [place] [address] Social History Tobacco Use Types Packs/Day Years [...] EDT Telemedicine [facility] Rheumatology [address] [place], [place] [address] Venecia Vega MD [address] [facility] [address] [place] [address] documented as of this encounter Procedures Procedure Name Priority Date/Time Associated Diagnosis Comments CYCLIC CITRULLINATED PEPTIDE Routine 05/22/2016 9:40 EST GC/CHLAMYDIA URINE [place] [facility] Routine 05/22/2016 9:38 EST RHEUMATOID SCREEN/TITRE Routine 05/22/2016 9:38 EST COMPLETE BLOOD COUNT WITH DIFFERENTIAL (AUTO) Routine 05/22/2016 9:38 EST LYME AB Routine 05/22/2016 9:38 EST ZZLYME IMMUNOBLOT CONFIRMATION Routine 05/22/2016 9:38 EST HIGH SENSITIVITY C-REACTIVE PROTEIN (CARDIOVASCULAR DISEASE) Routine 05/22/2016 9:38 EST C REACTIVE PROTEIN Routine 05/22/2016 9: 38 EST SYNOVIAL FLD CC/DIFF - CV Routine 05/22/2016 9:00 EST FLUID CULTURE - CV Routine 05/22/2016 9:00 EST SYNOVIAL FLUID CRYSTALS Routine 05/22/2016 9:00 EST documented in this encounter Results * CYCLIC CITRULLINATED PEPTIDE - [facility] (05/22/2016 9:40 EST) Cyclic Citrullinated Peptide Ab, S <15.6 () U 05/29/2016 8:56 EST [facility] Comment: REFERENCE VALUE <20.0 (Negative) Test Performed by: [facility] - [address] [address] [employer]: Singh Small II, M.D., Ph.D. *CP = Citrullinated Peptide 05/22/2016 9:40 EST 05/25/2016 8:51 EST [facility] - 05/29/2016 8:56 EST AOT: 05/25/16 0851: CCP Reggie Wisdom MD CHEMISTRY & BLOO D GAS ORDERABLES Performing Organization Address [facility]/ZIP Co de Phone Number [facility] * LYME AB (05/22/2016 9:38 EST) [facility] Lyme Ab IgG NEGATIVE 05/22/2016 12:25 EST [facility] Lyme Ab POSITIVE 05/22/2016 12:25 EST [facility] Comment:Reflex to Western Bl ot has been ordered. 05/22/2016 9:38 EST 05/22/2016 9:38 EST Narrative [facility] - 05/22/2016 12:25 EST Does PT Have a Latex Allergy? NO Reggie Wisdom MD IMMUNOLOGY AND S EROLOGY ORDERABLES Performing Organization Address [facility] Co de Phone Number [facility] * HIGH SENSITIVITY C-REACTIVE PROTEIN (CARDIOVASCULAR DISEASE) (05/22/2016 9:38 EST) [facility] CRP HIGH SENSITIVITY - [facility] 52.5 mg/L 05/22/2016 10:56 EST [facility] Comment: Risk ? usCRP (mg/L) Low ?<1.0 Average ?1.0-3.0 High ? >3.0 05/22/2016 9:38 EST 05/22/2016 9:38 EST Narrative [facility] - 05/22/2016 10:56 EST Does PT Have a Latex Allergy? NO Reggie Wisdom MD CHEMISTRY & BLOO D GAS ORDERABLES Performing Organization Address City/[facility]/ZIP Co de Phone Number [facility] * (ABNORMAL) C REACTIVE PROTEIN (05/22/2016 9:38 EST) Pathologist [facility] SED RATE - [facility] 64(H) 1 - 17 mm/hr 05/22/2016 10:53 EST [facility] 05/22/2016 9:38 EST 05/22/2016 9:38 EST Narrative [facility] - 05/22/2016 10:53 EST Does PT Have a Latex Allergy? NO Reggie Wisdom MD CHEMISTRY & BLOO D GAS ORDERABLES [facility] * (ABNORMAL) COMPLETE BLOOD COUNT WITH DIFFERENTIAL (AUTO) (05/22/2016 9:38 EST) ABSOLUTE NEUTROPHIL COUN - [facility] 6.13 1.7 - 7.0 10e3/ul 05/22/2016 10:23 [facility] BASO # - [facility] 0.04 0.0 - 0.3 10e3/uL 05/22/2016 10:23 [facility] BASO % - [facility] 0 0 - 2 % 05/22/2016 10:23 [facility] EOS # - [facility] 0.34 0.05 - 0.5 e3/uL 05/22/2016 10:23 [facility] EOS % - [facility] 4 0 - 5 % 05/22/2016 10:23 [facility] GRAN % - [facility] 63 40 - 80 % 05/22/2016 10:23 [facility] HEMATOCRIT - [facility] 38.6 34.0 - 47.0 % 05/22/2016 10:23 [facility] HEMOGLOBIN - [facility] 12.0 11.2 - 15.7 g/dl 05/22/2016 10:23 [facility] IG# - [facility] 0.06 0 - 0.07 10e3/uL 05/22/2016 10:23 [facility] IG% - [facility] 0.6 0 - 0.9 % 05/22/2016 10:23 [facility] LYMPH # - [facility] 2.54 0.9 - 2.9 10e3/uL 05/22/2016 10:23 [facility] LYMPH% - [facility] 26 20 - 40 % 05/22/2016 10:23 [facility] MEAN CORPUSCULAR HGB - [facility] 26.2 26 - 34 pg 05/22/2016 10:23 [facility] MEAN CORPUSCULAR HGB CONC - [facility] 31.1 31 - 36 g/dL 05/22/2016 10:23 [facility] MEAN CELL VOLUME - [facility] 84.3 77 - 100 fl 05/22/2016 10:23 [facility] MONO # - [facility] 0.67 0.3 - 0.9 10e3/uL 05/22/2016 10:23 [facility] MONO% - [facility] 7 0 - 12 % 05/22/2016 10:23 [facility] PLATELET COUNT 509(H) 150 - 400 10e3/ul 05/22/2016 10:23 [facility] RED BLOOD COUNT - [facility] 4.58 3.8 - 5.2 10e6/ul 05/22/2016 10:23 [facility] RED CELL DISTRI WIDTH - [facility] 17.2(H) 11.8 - 15.6 % 05/22/2016 10:23 [facility] WHITE BLOOD COUNT - [facility] 9.8 3.5 - 10.5 10e3/ul 05/22/2016 10:23 [facility] 05/22/2016 9:38 EST 05/22/2016 9:38 EST [facility] - 05/22/2016 10:53 EST Does PT Have a Latex Allergy? NO Reggie Wisdom MD HEMATOLOGY & PF4 ORDERABLES [facility] * GC/CHLAMYDIA URINE - [facility] (05/22/2016 9:38 EST) CHLAMYDIA URINE PCR - [facility] NOT DETECTED 05/22/2016 12:28 [facility] GONORRHEA URINE PCR - [facility] NOT DETECTED 05/22/2016 12:28 EST [facility] SOURCE URINE 05/22/2016 12:28 [facility] 05/22/2016 9:38 EST 05/22/2016 9:38 EST [facility] - 05/22/2016 12:28 EST Does PT Have a Latex Allergy? NO Reggie Wisdom MD CHEMISTRY & BLOO D GAS ORDERABLES Performing Organization Address City/[facility]/ZIP Co de Phone Number [facility] * LYME IMMUNOBLOT CONFIRMATION (05/22/2016 9:38 EST) Lyme IGG Bands SEE COMMENTS () kDa 05/27/20 16 8:09 [facility] Comment:No bands detected. Lyme IGM Band(s) p41 () kDa 05/27/20 16 8:09 [facility] Lyme IgM ImmunoBlot Negative () 05/27/2016 8:09 [facility] Comment:Reference Range: Neg ative Lyme Immunoblot Interpretation SEE COMMENTS () 05/27/2016 8:09 [facility] Comment: Specific serologic response to [...] blot are positive. Test Performed by: [place] [address] Cheese Wrapper: Navdeep Madera MD , Ph D Lyme IGG ImmunoBlot Negative () 05/27/2016 8:09 [facility] Comment:Reference Range: Neg ative 05/22/2016 9:38 EST 05/22/2016 9:38 EST Reggie Wisdom MD IMMUNOLOGY AND S EROLOGY ORDERABLES Performing Organization Address City/[facility]/ZIP Co de Phone Number [facility] * RHEUMATOID SCREEN/TITRE - [facility] (05/22/2016 9:38 EST) RHEUMATOID FACTOR SCREEN - [facility] NEG NEG 05/25/2016 9:51 EST [facility] 05/22/2016 9:38 EST 05/25/2016 8:51 EST Narrative [facility] - 05/25/2016 9:51 EST AOT: 05/25/16 0851: RA Reggie Wisdom MD CHEMISTRY & BLOO D GAS ORDERABLES [facility] * FLUID CULTURE - [facility] (05/22/2016 9:00 EST) FLUID CULTURE - [facility] 05/29/2016 7:19 EST [facility] FLUID CULTURE - [facility] No growth. 05/29/2016 7:19 [facility] BACTERIA SEEN - [facility] NO 05/22/2016 10:36 EST [facility] WBC PRESENT 05/22/2016 10:36 EST [facility] 05/22/2016 9:00 EST 05/22/2016 9:32 EST Comment:L Reggie Wisdom MD HEMATOLOGY & PF4 ORDERABLES [facility] * SYNOVIAL FLUID CRYSTALS - [facility] (05/22/2016 9:00 EST) EXTRACELLULAR - [facility] Few 05/22/2016 10:41 EST [facility] INTRACELLULAR - [facility] Few 05/22/2016 10:41 EST [facility] SYNOVIAL FLD CRYSTALS - [facility] Positive 05/22/2016 10:41 EST [facility] Comment:Calcium pyrophosphat e crystals. 05/22/2016 9:00 EST 05/22/2016 9:32 EST Reggie Wisdom MD CHEMISTRY & BLOO D GAS ORDERABLES [facility] * (ABNORMAL) SYNOVIAL FLD CC/DIFF - [facility] (05/22/2016 9:00 EST) SYNOVIAL FLD SOURCE - [facility] LEFT KNEE 05/22/2016 9:59 EST [facility] SYNOVIAL FLD WBC - [facility] 17,908(H) 0 - 200 /ul 05/22/2016 9:58 EST [facility] 05/22/2016 9:00 EST 05/22/2016 9:32 EST Reggie Wisdom MD CHEMISTRY & BLOO D GAS ORDERABLES [facility] documented in this encounter Visit Diagnoses Not on filedocumented in this encounter Care Teams Can Top Setter Relationship Specialty Start Date End Date None, Provider PCP - General 04/02/15 02/12/19 Serafin Saucedo MD [address] [place] [phone] PCP - General 02/13/19 04/25/20 documented as of this encounter
--- OUTSIDE RECORDS SUMMARY | 2024-03-14 18:01 | XMS_ITS | Encounter Summary ---
Author Organization [facility] Address [address] [place] [address] Care Team Providers Care Training Lead Name Role Phone None, Provider Primary Care Provider Serafin Zapata MD Primary Care Provider [phone] Encounter Details Date Type Department Care Team (Late st Contact Info) Description 09/22/2016 Historical Results Only [facility] Radiology Results [address] [place], [place] [id number] Radha Jacques, SENIOR CLERK [address] [place] [phone] Social History Tobacco Use Types Packs/Day Years Used Date Smoking Tobacco: Never Assessed Sex and Gender Information Value Date Recorded Sex Assigned at Not on file Gender Identity Female 07/04/2019 11:12 EST Sexual Orientation Not on file documented as of this encounter Plan of Treatment Upcoming Encounters Date Type Department Care Team (Late st Contact Info) Description 03/23/2024 11:15 EDT Telemedicine [facility] Rheumatology [address] [place], [place] [address] Venecia Vega MD [address] [facility] [address] [place] [phone] documented as of this encounter Procedures Procedure Name Priority Date/Time Associated Diagnosis Comments XR SACRUM COCCYX 2 OR MORE VIEWS 09/22/2016 9:40 EDT documented in this encounter Results * XR SACRUM COCCYX 2 OR MORE VIEWS (09/22/2016 9:40 EDT) Anatomical Region Laterality Modality Other 09/22/2016 9:40 EDT Narrative 09/22/2016 9:45 EDT ? EXAM: RADIOLOGY EXPRESS CARE/EXP CARE XR ??EX. D/ (0935) ? CLINICAL INFORMATION: ? TAILBONE PAIN S/P FALL - S39.92XA ? XRAYS DONE AT [facility] ? INDICATION: ??TAILBONE PAIN S/P FALL - S39.92XA: ?? FELL ON ICE, ? TAILBONE PAIN ? TECHNIQUE: ??Frontal and lateral views of the sacrum and coccyx. ? COMPARISON: None. ? FINDINGS: The alignment is anatomic. No acute fracture or acute ? osseous abnormality is detected. The visualized portions of the bony ? pelvis are intact. ? IMPRESSION: ? Normal radiographs of the sacrum and coccyx. ? REPORT SIGNED IN OTHER VENDOR SYSTEM 09/22/2016 ?Reported By: Trevor Olguin MD ? CC: ? Transcribed Date/Time: 09/22/2016 (0945) ? Trucking Manager: ? Printed Date/Time: 12/17/2018 (0949) ? PAGE 1 ? Signed Report ? Procedure Note Trevor Olguin E - 05/10/2019 EXAM: RADIOLOGY EXPRESS CARE/EXP CARE XR EX. D/ (0935) CLINICAL INFORMATION: TAILBONE PAIN S/P FALL - S39.92XA XRAYS DONE AT [facility] INDICATION: TAILBONE PAIN S/P FALL - S39.92XA: FELL ON ICE, TAILBONE PAIN TECHNIQUE: Frontal and lateral views of the sacrum and coccyx. COMPARISON: None. FINDINGS: The alignment is anatomic. No acute fracture or acute osseous abnormality is detected. The visualized portions of thebony pelvis are intact. IMPRESSION: Normal radiographs of the sacrum and coccyx. REPORT SIGNED IN OTHER VENDOR SYSTEM 09/22/2016 Reported By: Trevor Olguin MD CC: Transcribed Date/Time: 09/22/2016 (0945) Trucking Manager: Printed Date/Time: 12/17/2018 (0945) PAGE 1 Signed Report Radha Jacques SENIOR CLERK IMG DIAGNOSTIC IMAGI NG ORDERABLES documented in this encounter Visit Diagnoses Not on filedocumented in this encounter Care Teams Training Lead Relationship Specialty Start Date End Date None, Provider PCP - General 04/02/15 02/12/19 Serafin Saucedo MD [address] [place] [phone] PCP - General 02/13/19 04/25/20 documented as of this encounter
--- OUTSIDE RECORDS SUMMARY | 2024-03-14 18:01 | XMS_ITS | Encounter Summary ---
Author Organization Health system Address [address] [place] [address] Care Team Providers Care Social Insurance Analyst Name Role Phone None, Provider Primary Care Provider Serafin Zapata MD Primary Care Provider [phone] Encounter Details Date Type Department Care Team (Late st Contact Info) Description 12/31/[address] [facility] Radiology Results [address] [place] [address] Mary Braswell MD [address] [place], [place] [address], [address] [place] [address] Social History Tobacco Use Types [...] Info) Description 03/23/2024 11:[address] [facility] Rheumatology [address] [place] [address] Venecia Vega MD [address] [place] [address] [address] [place] [address] documented as of this encounter Procedures Procedure Name Priority Date/Time Associated Diagnosis Comments US OB ROUTINE (GREATER THAN 14 WEEKS) 12/31/2015 16:10 EDT documented in this encounter Results * US OB ROUTINE (GREATER THAN 14 WEEKS) (12/31/2015 16:10 EDT) Anatomical Region Laterality Modality Pelvis Other 12/31/2015 16:1 0 EDT Narrative 01/02/2016 9:57 EDT ? EXAM: ULTRASOUND/OB LEVEL 2 WITH TRANSVAG EX. D/ (1610) ? CLINICAL INFORMATION: ? Z34.92 CHECK GROWTH ?? DEVELOPMENT ? See attached report. ??Report also available in PACS. ? DIMENSION WAREHOUSE SUPERVISOR:cristina ?Reported By: Luis Antonio Griffin MD ? CC: ? Transcribed Date/Time: 01/02/2016 (956) ? Marketing Financial Analyst: LM ? Printed Date/Time: 12/15/2018 (2045) ? PAGE 1 ? Signed Report ? Procedure Note Luis Antonio Griffin MD - 05/10/2019 EXAM: ULTRASOUND/OB LEVEL 2 WITH TRANSVAG EX. D/ (1610) CLINICAL INFORMATION: Z34.92 CHECK GROWTH DEVELOPMENT See attached report. Report also available in PACS. DIMENSION WAREHOUSE SUPERVISOR:[email or web address] Reported By: Luis Antonio Griffin MD CC: Transcribed Date/Time: 01/02/2016 (956) Marketing Financial Analyst: LM Printed Date/Time: 12/15/2018 (2045) PAGE 1 Signed Report Mary Braswell MD IMG OB ORDERABLES documented in this encounter Visit Diagnoses Not on filedocumented in this encounter Care Teams Social Insurance Analyst Relationship Specialty Start Date End Date None, Provider PCP - General 04/02/15 02/12/19 Serafin Saucedo MD [address] [place] [phone] PCP - General 02/13/19 04/25/20 documented as of this encounter
--- OUTSIDE RECORDS SUMMARY | 2024-03-14 18:01 | XMS_ITS | Encounter Summary ---
Author Organization [facility] Address [address] [place] [address] Care Team Providers Care Cloth Printing Utility Worker Name Role Phone None, Provider Primary Care Provider Serafin Zapata MD Primary Care Provider [phone] Encounter Details Date Type Department Care Team (Late st Contact Info) Description 11/24/2016 Historical Results Only [facility] Lab - Main [address] [place] [address] Beth Hinson Ae, CLINICAL ASSISTANT PROFESSOR [address] [place], [place] [id number] Social History Tobacco Use Types Packs/Day Years Used Date Smoking Tobacco: Never Assessed Sex and Gender Information Value Date Recorded Sex Assigned at Not on file Gender Identity Female 07/04/2019 11:12 EST Sexual Orientation Not on file documented as of this encounter Plan of Treatment Upcoming Encounters Date Type Department Care Team (Late st Contact Info) Description 03/23/2024 11:15 EDT Telemedicine [facility] Rheumatology [address] [place], [place] [phone] Venecia Vega MD [address] [place] [address] [address] [place] [address] documented as of this encounter Procedures Procedure Name Priority Date/Time Associated Diagnosis Comments COMPLETE BLOOD COUNT WITH DIFFERENTIAL (AUTO) Routine 11/24/2016 14:53 EDT THYROID CASCADE Routine 11/24/2016 14:53 EDT COMPREHENSIVE METABOLIC PANEL (CMP) Routine 11/24/2016 14:53 EDT documented in this encounter Results * THYROID CASCADE (11/24/2016 14:53 EDT) Pathologist [facility] TSH 1.77 0.35 - 5.50 uIU/mL 11/24/2016 19:29 EDT [facility] 11/24/2016 14:5 3 EDT 11/24/2016 18:21 EDT Beth Hinson APRN CHEMISTRY & BLOOD GAS ORDERABLES [facility] * (ABNORMAL) COMPREHENSIVE METABOLIC PANEL (CMP) (11/24/2016 14:53 EDT) Pathologist [facility] Albumin % 3.9 3.4 - 5.0 g/dL 11/24/2016 19:21 [facility] ALKALINE PHOSPHATASE - [facility] 80 41 - 126 U/L 11/24/2016 19:21 [facility] BILIRUBIN TOTAL 0.4 0.0 - 1.0 mg/dL 11/24/2016 19:21 [facility] BUN - [facility] 8 7 - 18 mg/dL 11/24/2016 19:21 [facility] CALCIUM - [facility] 9.2 8.5 - 10.1 mg/dL 11/24/2016 19:21 [facility] Chloride 104 98 - 107 mEq/L 11/24/2016 19:24 [facility] CO2 Total 31 21 - 32 mEq/L 11/24/2016 19:24 [facility] CREATININE 0.75 0.5 - 1.3 mg/dL 11/24/2016 19:21 [facility] eGFR >60 11/24/2016 19:21 [facility] Comment: Chronic renal impairment is defined as GFR <60 Multiply result by 1.210 for patients. eGFR calculated using the IDMS-traceable MDRD Study Equation. ??(effective 05/07/2014) Anion Gap 5 5 - 15 11/24/2016 19:24 EDT [facility] GLUCOSE - [facility] 89 70 - 100 mg/dL 11/24/2016 19:21 EDT [facility] Potassium 3.9 3.5 - 5.0 mEq/L 11/24/2016 19:21 EDT [facility] Sodium 140 135 - 145 mEq/L 11/24/2016 19:24 EDT [facility] TOTAL PROTEIN - [facility] 7.4 6.4 - 8.2 gm/dl 11/24/2016 19:21 EDT [facility] SGOT/AST - [facility] 39(H) 10 - 37 U/L 11/24/2016 19:21 EDT [facility] SGPT/ALT - [facility] 61 12 - 78 U/L 11/24/2016 19:21 EDT [facility] 11/24/2016 14:5 3 EDT 11/24/2016 18:21 EDT Beth Hinson APRN CHEMISTRY & BLOOD GAS ORDERABLES [facility] * (ABNORMAL) COMPLETE BLOOD COUNT WITH DIFFERENTIAL (AUTO) (11/24/2016 14:53 EDT) ABSOLUTE NEUTROPHIL COUN - [facility] 6.42 1.7 - 7.0 10e3/ul 11/24/2016 18:33 EDT [facility] BASO # - [facility] 0.05 0.0 - 0.3 10e3/uL 11/24/2016 18:33 EDT [facility] BASO % - [facility] 0 0 - 2 % 11/24/2016 18:33 EDT [facility] EOS # - [facility] 0.61(H) 0.05 - 0.5 10e3/uL 11/24/2016 18:33 EDT [facility] EOS % - [facility] 5 0 - 5 % 11/24/2016 18:33 EDT [facility] GRAN % - [facility] 51 40 - 80 % 11/24/2016 18:33 EDT [facility] HEMATOCRIT - [facility] 42.3 34.0 - 47.0 % 11/24/2016 18:33 [facility] HEMOGLOBIN - [facility] 13.8 11.2 - 15.7 g/dl 11/24/2016 18:33 [facility] IG# - [facility] 0.03 0 - 0.07 10e3/uL 11/24/2016 18:33 [facility] IG% - [facility] 0.2 0 - 0.9 % 11/24/2016 18:33 [facility] LYMPH # - [facility] 4.16(H) 0.9 - 2.9 10e3/uL 11/24/2016 18:33 [facility] LYMPH% - [facility] 33 20 - 40 % 11/24/2016 18:33 [facility] MEAN CORPUSCULAR HGB - [facility] 28.8 26 - 34 pg 11/24/2016 18:33 [facility] MEAN CORPUSCULAR HGB CONC - [facility] 32.6 31 - 36 g/dL 11/24/2016 18:33 [facility] MEAN CELL VOLUME - [facility] 88.3 77 - 100 fl 11/24/2016 18:33 [facility] MONO # - [facility] 1.23(H) 0.3 - 0.9 10e3/uL 11/24/2016 18:33 [facility] MONO% - [facility] 10 0 - 12 % 11/24/2016 18:33 [facility] PLATELET COUNT 425(H) 150 - 400 10e3/ul 11/24/2016 18:33 [facility] RED BLOOD COUNT - [facility] 4.79 3.8 - 5.2 10e6/ul 11/24/2016 18:33 [facility] RED CELL DISTRI WIDTH - [facility] 15.3 11.8 - 15.6 % 11/24/2016 18:33 [facility] WHITE BLOOD COUNT - [facility] 12.5(H) 3.5 - 10.5 10e3/ul 11/24/2016 18:33 [facility] 11/24/2016 14:5 3 EDT 11/24/2016 18:22 EDT Beth Hinson CLINICAL ASSISTANT PROFESSOR HEMATOLOGY & PF4 ORDERABLES [facility] documented in this encounter Visit Diagnoses Not on filedocumented in this encounter Care Teams Cloth Printing Utility Worker Relationship Specialty Start Date End Date None, Provider PCP - General 04/02/15 02/12/19 Serafin Saucedo MD [address] [place] [phone] PCP - General 02/13/19 04/25/20 documented as of this encounter
--- OUTSIDE RECORDS SUMMARY | 2024-03-14 18:01 | XMS_ITS | Encounter Summary ---
Author Organization [facility] Address [address] [place] [address] Care Team Providers Care Environmental Service Aide Name Role Phone None, Provider Primary Care Provider Serafin Zapata MD Primary Care Provider [phone] Encounter Details Date Type Department Care Team (Late st Contact Info) Description 09/21/2017 Historical Results Only [facility] Lab - Main [place] [address] [place] [id number] Venecia Vega MD [address] [place] [address] [address] Social History Tobacco Use Types Packs/Day Years Used Date Smoking Tobacco: Never Assessed Sex and Gender Information Value Date Recorded Sex Assigned at Not on file Gender Identity Female 07/04/2019 11:12 EST Sexual Orientation Not on file documented as of this encounter Plan of Treatment Upcoming Encounters Date Type Department Care Team (Late st Contact Info) Description 03/23/2024 11:15 EDT Telemedicine [facility] Rheumatology [address] [place] [address] Venecia Vega MD [address] [place] [address] [phone] documented as of this encounter Procedures Procedure Name Priority Date/Time Associated Diagnosis Comments COMPLETE BLOOD COUNT WITH DIFFERENTIAL (AUTO) Routine 09/21/2017 7:00 EDT COMPREHENSIVE METABOLIC PANEL (CMP) Routine 09/21/2017 7:00 EDT documented in this encounter Results * (ABNORMAL) COMPREHENSIVE METABOLIC PANEL (CMP) (09/21/2017 7:00 EDT) Albumin % 4.0 3.4 - 4.9 g/dL 09/21/2017 7:34 [facility] Comment: Slight Hemolysis, Interpret results with caution. Verified Hemolysis Visually ALKALINE PHOSPHATASE - [facility] 64 38 - 126 U/L 09/21/2017 7:34 [facility] Comment: Slight Hemolysis, Interpret results with caution. Verified Hemolysis Visually BILIRUBIN TOTAL 0.5 0.2 - 1.3 mg/dL 09/21/2017 7:33 [facility] BUN - [facility] 7(L) 10 - 26 mg/dL 09/21/2017 7:34 [facility] Comment: Slight Hemolysis, Interpret results with caution. Verified Hemolysis Visually CALCIUM - [facility] 9.4 8.5 - 10.5 mg/dL 09/21/2017 7:33 [facility] Chloride 105 96 - 110 mmol/L 09/21/2017 7:33 [facility] CO2 Total 25 22 - 32 mEq/L 09/21/2017 7:33 [facility] CREATININE 0.73 0.52 - 1.04 mg/dL 09/21/2017 7:33 [facility] eGFR >60 09/21/2017 7:33 [facility] Comment: Chronic renal impairment is defined as GFR <60 Multiply result by 1.210 for patients. eGFR calculated using the IDMS-traceable MDRD Study Equation. ??(effective 05/07/2014) Anion Gap 11 0 - 18 09/21/2017 7:33 [facility] GLUCOSE - [facility] 122(H) 70 - 100 mg/dL 09/21/2017 7:33 [facility] Potassium 3.6 3.5 - 5.0 mEq/L 09/21/2017 7:34 [facility] Comment: Slight Hemolysis, Interpret results with caution. Verified Hemolysis Visually Sodium 141 136 - 145 mEq/L 09/21/2017 7:33 EDT [facility] TOTAL PROTEIN - [facility] 7.6 6.2 - 8.2 gm/dL 09/21/2017 7:33 EDT [facility] SGOT/AST - [facility] 67(H) 14 - 36 U/L [facility]21/2017 [facility]: Slight Hemolysis, Interpret results with caution. Verified Hemolysis Visually SGPT/ALT - [facility] 109(H) 9 - 52 U/L 8 7:34 EDT [facility] Comment: Slight Hemolysis, Interpret results with caution. Verified Hemolysis Visually 09/21/2017 7:00 EDT 09/21/2017 7:08 EDT Narrative [facility] - 09/21/2017 7:34 EDT Does PT Have a Latex Allergy? NO Venecia Vega MD CHEMISTRY & BLOO D GAS ORDERABLES [facility] * (ABNORMAL) COMPLETE BLOOD COUNT WITH DIFFERENTIAL (AUTO) (09/21/2017 7:00 EDT) ABSOLUTE NEUTROPHIL COUN - [facility] 2.63 1.7 - 7.0 10e3/ul 09/21/2017 7:26 [facility] BASO # - [facility] 0.03 0.0 - 0.3 10e3/uL 09/21/2017 7:26 [facility] BASO % - [facility] 0 0 - 2 % 09/21/2017 7:26 [facility] EOS # - [facility] 0.25 0.05 - 0.5 10e3/uL 09/21/2017 7:26 [facility] EOS % - [facility] 4 0 - 5 % 09/21/2017 7:26 [facility] GRAN % - [facility] 39(L) 40 - 80 % 09/21/2017 7:26 [facility] HEMATOCRIT - [facility] 43.3 34.0 - 47.0 % 09/21/2017 7:26 [facility] HEMOGLOBIN - [facility] 14.6 11.2 - 15.7 g/dl 09/21/2017 7:26 [facility] IG# - [facility] 0.01 0 - 0.07 10e3/uL 09/21/2017 7:26 [facility] IG% - [facility] 0.1 0 - 0.9 % 09/21/2017 7:26 [facility] LYMPH # - [facility] 3.24(H) 0.9 - 2.9 10e3/uL 09/21/2017 7:26 [facility] LYMPH% - [facility] 47(H) 20 - 40 % 09/21/2017 7:26 [facility] MEAN CORPUSCULAR HGB - [facility] 29.3 26 - 34 pg 09/21/2017 7:26 [facility] MEAN CORPUSCULAR HGB CONC - [facility] 33.7 31 - 36 g/dL 09/21/2017 7:26 [facility] MEAN CELL VOLUME - [facility] 86.9 77 - 100 fl 09/21/2017 7:26 [facility] MONO # - [facility] 0.67 0.3 - 0.9 10e3/uL 09/21/2017 7:26 [facility] MONO% - [facility] 10 0 - 12 % 09/21/2017 7:26 [facility] PLATELET COUNT 398 150 - 400 10e3/ul 09/21/2017 7:26 [facility] RED BLOOD COUNT - [facility] 4.98 3.8 - 5.2 10e6/ul 09/21/2017 7:26 [facility] RED CELL DISTRI WIDTH - [facility] 13.9 11.8 - 15.6 % 09/21/2017 7:26 [facility] WHITE BLOOD COUNT - [facility] 6.8 3.5 - 10.5 10e3/ul 09/21/2017 7:26 [facility] 09/21/2017 7:00 EDT 09/21/2017 7:08 [facility] - 09/21/2017 7:26 EDT Does PT Have a Latex Allergy? NO Venecia Vega MD HEMATOLOGY & PF4 ORDERABLES [facility] documented in this encounter Visit Diagnoses Not on filedocumented in this encounter Care Teams Environmental Service Aide Relationship Specialty Start Date End Date None, Provider PCP - General 04/02/15 02/12/19 Serafin Saucedo MD [address] [place] [phone] PCP - General 02/13/19 04/25/20 documented as of this encounter
--- OUTSIDE RECORDS SUMMARY | 2024-03-14 18:01 | XMS_ITS | Encounter Summary ---
Author Organization [facility] Address [address] [place] [address] Care Team Providers Care Casino Floor Walker Name Role Phone None, Provider Primary Care Provider Serafin Zapata MD Primary Care Provider [phone] Encounter Details Date Type Department Care Team (Late st Contact Info) Description 09/17/2016 Historical Results Only [facility] Lab - Main [place] [address] [place] [address] Venecia Vega MD [address] [place] [address] [phone] Social History Tobacco Use Types [...] 11:15 EDT Telemedicine [facility] Rheumatology [address] [place] [address] Venecia Vega MD [address] [place] [address] [phone] documented as of this encounter Procedures Procedure Name Priority Date/Time Associated Diagnosis Comments QUANTIFERON TB GOLD PLUS Routine 09/17/2016 9:32 EDT HEPATITIS C AB W REFLEX TO HCV RNA BY PCR Routine 09/17/2016 9:31 EDT C REACTIVE PROTEIN Routine 09/17/2016 9: 31 EDT C REACTIVE PROTEIN Routine 09/17/2016 9: 31 EDT documented in this encounter Results * QUANTIFERON TB GOLD PLUS (09/17/2016 9:32 EDT) Quantiferon Interpretation Negative NEGAT 09/21/2016 13:57 EDT [facility] Comment: Reference Range: Negative Resuls were obtained with the [employer] QuantiFERON-TB Gold DMITRY. Test Performed by: [place] [address] Milk Receiver: Navdeep Madera MD , Ph D M.TUBERCULOSIS ANTIGEN - [facility] 0.00 () IU/mL 09/21/2016 13:57 EDT [facility] Comment: This is a qualitative test. ??The TB antigen IU/mL value is required for documentation on certain government reporting forms (e.g., Form I-693), but the magnitude of this value cannot be correlated to stage or degree of infection, level of immune responsiveness, or likelihood for progression to active disease. Diagnosing or excluding tuberculosis disease, and assessing the probability of LTBI, requires a combination of epidemiological, historical, medical, and diagnostic findings that should be taken into account when interpreting QuantiFERON-TB results. 09/17/2016 9:32 EDT 09/17/2016 9:32 EDT Narrative [facility] - 09/21/2016 13:57 EDT Does PT Have a Latex Allergy? NO Venecia Vega MD CHEMISTRY & BLOO D GAS ORDERABLES [facility] * HEPATITIS C AB W REFLEX TO HCV RNA BY PCR (09/17/2016 9:31 EDT) HEPATITIS C AB W/REFLEX - [facility] Negative 09/17/2016 11:50 EDT [facility] Comment:Expected Values: Neg ative. 09/17/2016 9:31 EDT 09/17/2016 9:31 EDT [facility] - 09/17/2016 11:50 EDT Does PT Have a Latex Allergy? NO Enter/Edit CPT and ICD codes? N Venecia Vega MD CHEMISTRY & BLOO D GAS ORDERABLES Performing Organization Address City/[facility]/ZIP Co de Phone Number [facility] * (ABNORMAL) C REACTIVE PROTEIN (09/17/2016 9:31 EDT) [facility] C-Reactive Protein 7.63(H) 0.0 - 3.0 mg/L 09/17/2016 11:05 EDT [facility] 09/17/2016 9:31 EDT 09/17/2016 9:31 EDT [facility] - 09/17/2016 11:05 EDT Does PT Have a Latex Allergy? NO Venecia Vega MD CHEMISTRY & BLOO D GAS ORDERABLES Performing Organization Address City/[facility]/ZIP Co de Phone Number [facility] * (ABNORMAL) C REACTIVE PROTEIN (09/17/2016 9:31 EDT) Pathologist [facility] SED RATE - [facility] 22(H) 1 - 17 mm/hr 09/17/2016 10:49 EDT [facility] 09/17/2016 9:31 EDT 09/17/2016 9:31 EDT [facility] - 09/17/2016 10:49 EDT Does PT Have a Latex Allergy? NO Venecia Vega MD CHEMISTRY & BLOO D GAS ORDERABLES [facility] documented in this encounter Visit Diagnoses Not on filedocumented in this encounter Care Teams Casino Floor Walker Relationship Specialty Start Date End Date None, Provider PCP - General 04/02/15 02/12/19 Serafin Saucedo MD [address] [place] [phone] PCP - General 02/13/19 04/25/20 documented as of this encounter
--- OUTSIDE RECORDS SUMMARY | 2024-03-14 18:01 | XMS_ITS | Encounter Summary ---
Author Organization [facility] Address [address] [place] [address] Care Team Providers Care Autism Tutor Name Role Phone None, Provider Primary Care Provider Serafin Zapata MD Primary Care Provider [phone] Encounter Details Date Type Department Care Team (Late st Contact Info) Description 04/10/2016 Historical Results Only [facility] Results [address] [place] [address] Kellen Turner MD [address] [place] [address] [address] [place] [address] Social History Tobacco Use Types [...] 03/23/2024 11:15 EDT Telemedicine [facility] Rheumatology [address] [place] [address] Venecia Vega MD [address] [place] [address] [address] [place] [phone] documented as of this encounter Procedures Procedure Name Priority Date/Time Associated Diagnosis Comments US OB FOLLOWUP 04/10/2016 15:00 EDT US ABDOMEN LIMITED 04/10/2016 13 :30 EDT documented in this encounter Results * US OB FOLLOWUP (04/10/2016 15:00 EDT) Anatomical Region Laterality Modality Pelvis Other 04/10/2016 15:0 0 EDT Narrative 04/10/2016 16:39 EDT ? EXAM: ULTRASOUND/OB LEVEL 2 FOLLOW UP ? EX. D/ (1500) ? CLINICAL INFORMATION: ? CHECK ESTIMATED WEIGHT ? Z33.1 , INCIDENTAL STATE ? See attached report. ??Report also available in PACS. ? GOLD NIB GRINDER:cristina ?Reported By: Luis Antonio Griffin MD ? CC: ? Transcribed Date/Time: 04/10/2016 (3509) ? Fish Hatchery Laborer: LM ? Printed Date/Time: 12/16/2018 (0746) ? PAGE 1 ? Signed Report ? Procedure Note Luis Antonio Griffin MD - 05/10/2019 EXAM: ULTRASOUND/OB LEVEL 2 FOLLOW UP EX. D/ (1500) CLINICAL INFORMATION: CHECK ESTIMATED WEIGHT Z33.1 , INCIDENTAL STATE See attached report. Report also available in PACS. GOLD NIB GRINDER:cristina Reported By: Luis Antonio Griffin MD CC: Transcribed Date/Time: 04/10/2016 (9469) Fish Hatchery Laborer: LM Printed Date/Time: 12/16/2018 (3317) PAGE 1 Signed Report Kellen Turner MD IMG US OB ORDERABLES * US ABDOMEN LIMITED (04/10/2016 13:30 EDT) Anatomical Region Laterality Modality Abdomen, Body Other 04/10/2016 13:3 0 EDT Narrative 04/10/2016 13:37 EDT ? EXAM: ULTRASOUND/RIGHT UPPER QUADRANT ? EX. D/ (1054) ? CLINICAL INFORMATION: ? R10.11 Z33.1 RUQ PAIN IN ? INDICATION: R10.11 Z33.1 RUQ PAIN IN RUQ PAIN ? TECHNIQUE: ??Sonographic examination of the right upper quadrant was ? performed. Color and spectral waveform Doppler imaging was utilized. ? COMPARISON: None ? FINDINGS: The IVC appears patent. The visualized portions of the ? pancreatic head are unremarkable. The right hepatic lobe measures ? 16.9 cm in the craniocaudal dimension. Within the right hepatic lobe, ? there is a slightly irregular echogenic lesion which measures 2.3 x ? 2.5 x 2.1 cm. No other focal hepatic lesion is identified. The ? gallbladder wall is 1.3 mm in thickness. No gallstones are seen. No ? pericholecystic fluid is noted. The common bile duct measures 4.3 mm ? in diameter. The right kidney is 13.1 cm in length. No hydronephrosis ? is seen. No focal renal parenchymal abnormality is detected. ? IMPRESSION: ? 1. No acute abnormality detected. ? 2. 2.5 cm echogenic lesion in the right hepatic lobe. Echogenic liver ? lesions most frequently reflect benign hemangiomas, but other lesions ? are not excluded. Given reported , consider 6 month ? follow-up ultrasound to demonstrate stability. After completion of ? , recommend contrast-enhanced MRI for further ? characterization. ? REPORT SIGNED IN OTHER VENDOR SYSTEM 04/10/2016 ?Reported By: Trevor Olguin MD ? CC: ? Transcribed Date/Time: 04/10/2016 (1337) ? Fish Hatchery Laborer: ? Printed Date/Time: 12/16/2018 (0746) ? PAGE 1 ? Signed Report ? Procedure Note Trevor Olguin E - 05/10/2019 EXAM: ULTRASOUND/RIGHT UPPER QUADRANT EX. D/ (1054) CLINICAL INFORMATION: R10.11 Z33.1 RUQ PAIN IN INDICATION: R10.11 Z33.1 RUQ PAIN IN RUQ PAIN TECHNIQUE: Sonographic examination of the right upper quadrant was performed. Color and spectral waveform Doppler imaging wasutilized. COMPARISON: None FINDINGS: The IVC appears patent. The visualized portions of the pancreatic head are unremarkable. The right hepatic lobe measures 16.9 cm in the craniocaudal dimension. Within the right hepaticlobe, there is a slightly irregular echogenic lesion which measures 2.3 x 2.5 x 2.1 cm. No other focal hepatic lesion is identified. The gallbladder wall is 1.3 mm in thickness. No gallstones are seen. No pericholecystic fluid is noted. The common bile duct measures 4.3mm in diameter. The right kidney is 13.1 cm in length. Nohydronephrosis is seen. No focal renal parenchymal abnormality is detected. IMPRESSION: 1. No acute abnormality detected. 2. 2.5 cm echogenic lesion in the right hepatic lobe. Echogenicliver lesions most frequently reflect benign hemangiomas, but otherlesions are not excluded. Given reported , consider 6 month follow-up ultrasound to demonstrate stability. After completion of , recommend contrast-enhanced MRI for further characterization. REPORT SIGNED IN OTHER VENDOR SYSTEM 04/10/2016 Reported By: Trevor Olguin MD CC: Transcribed Date/Time: 04/10/2016 (1337) Fish Hatchery Laborer: Printed Date/Time: 12/16/2018 (5950) PAGE 1 Signed Report Kellen Turner MD IMG US ORDERABLES documented in this encounter Visit Diagnoses Not on filedocumented in this encounter Care Teams Autism Tutor Relationship Specialty Start Date End Date None, Provider PCP - General 04/02/15 02/12/19 Serafin Saucedo MD [address] [place] [phone] PCP - General 02/13/19 04/25/20 documented as of this encounter
--- OUTSIDE RECORDS SUMMARY | 2024-03-14 18:01 | XMS_ITS | Encounter Summary ---
Author Organization [facility] Address [address] [place] [address] Care Team Providers Care Icebox Man Name Role Phone None, Provider Primary Care Provider Serafin Zapata MD Primary Care Provider [phone] Encounter Details Date Type Department Care Team (Late st Contact Info) Description 02/07/2016 Historical Results Only [facility] Radiology Results [address] [place], [place] [id number] Angela Womack PA [address] [place] [phone] Social History Tobacco Use Types Packs/Day Years [...] EDT Telemedicine [facility] Rheumatology [address] [place], [place] [phone] Venecia Vega MD 130 [facility] [address] [place] [address] documented as of this encounter Procedures Procedure Name Priority Date/Time Associated Diagnosis Comments XR ANKLE RIGHT 3 OR MORE VIEWS 02/07/2016 15:09 EDT documented in this encounter Results * XR ANKLE RIGHT 3 OR MORE VIEWS (02/07/2016 15:09 EDT) Anatomical Region Laterality Modality Lower Extremities, Ankle Right Other 02/07/2016 15:0 9 EDT Narrative 02/07/2016 15:13 EDT ? EXAM: RADIOLOGY/ANKLE RIGHT-3 + VIEW ?EX. D/ (1504) ? CLINICAL INFORMATION: ? RIGHT ANKLE PAIN AFTER INJURY PT IS 6 MONTHS XR DONE AT [facility] ? -M25.571 ? INDICATION: RIGHT ANKLE PAIN AFTER INJURY PT IS 6 MONTHS XR ? DONE AT [facility]: -M25.571 ANKLE PAIN SP FALL 02/01/16 - CLEAR CHOICE NO ? XR D ? TECHNIQUE: 3 views right ankle. ? COMPARISON: 04/04/2008. ? FINDINGS: The right ankle is well aligned. No acute fractures seen. ? The talar dome is intact. The proximal head of the 5th metatarsal is ? unremarkable. ? IMPRESSION: ? 1.No acute osseous injury detected. ? REPORT SIGNED IN OTHER VENDOR SYSTEM 02/07/2016 ?Reported By: Bong Mead MD ? CC: ? Transcribed Date/Time: 02/07/2016 (1513) ? Media Traffic Manager: ? Printed Date/Time: 12/16/2018 (0745) ? PAGE 1 ? Signed Report ? Procedure Note Bong Mead MD - 05/10/2019 EXAM: RADIOLOGY/ANKLE RIGHT-3 + VIEW EX. D/ (1504) CLINICAL INFORMATION: RIGHT ANKLE PAIN AFTER INJURY PT IS 6 MONTHS XR DONE [facility] -M25.571 INDICATION: RIGHT ANKLE PAIN AFTER INJURY PT IS 6 MONTHS XR DONE AT [facility]: -M25.571 ANKLE PAIN SP FALL 02/01/16 - CLEAR CHOICE NO XR D TECHNIQUE: 3 views right ankle. COMPARISON: 04/04/2008. FINDINGS: The right ankle is well aligned. No acute fractures seen. The talar dome is intact. The proximal head of the 5th metatarsalis unremarkable. IMPRESSION: 1.No acute osseous injury detected. REPORT SIGNED IN OTHER VENDOR SYSTEM 02/07/2016 Reported By: Bong Mead MD CC: Transcribed Date/Time: 02/07/2016 (1513) Media Traffic Manager: Printed Date/Time: 12/16/2018 (8389) PAGE 1 Signed Report Angela RENEE IMPatsy DIAGNOSTIC I MAGING ORDERABLES documented in this encounter Visit Diagnoses Not on filedocumented in this encounter Care Teams Icebox Man Relationship Specialty Start Date End Date None, Provider PCP - General 04/02/15 02/12/19 Serafin Saucedo MD [address] [place] [phone] PCP - General 02/13/19 04/25/20 documented as of this encounter
--- OUTSIDE RECORDS SUMMARY | 2024-03-14 18:01 | XMS_ITS | Encounter Summary ---
Author Organization [facility] Address [address] [place] [address] Care Team Providers Care Record Press Supervisor Name Role Phone None, Provider Primary Care Provider Serafin Zapata MD Primary Care Provider [phone] Encounter Details Date Type Department Care Team (Late st Contact Info) Description 04/04/2015 Historical Results Only [facility] Radiology Results [address] [place] [address] Vivi Garcias MD [address] [facility] 2 [place] [address] Social History Tobacco Use Types Packs/Day Years [...] 03/23/2024 11:15 EDT Telemedicine [facility] Rheumatology [address] [place] [address] Venecia Vega MD 130 [facility] [address] [place] [address] documented as of this encounter Procedures Procedure Name Priority Date/Time Associated Diagnosis Comments XR FOOT LEFT 3 OR MORE VIEWS 04/04/2015 11:40 EDT XR ANKLE LEFT 2 VIEWS 04/04/2015 11:39 EDT documented in this encounter Results * XR FOOT LEFT 3 OR MORE VIEWS (04/04/2015 11:40 EDT) Anatomical Region Laterality Modality Lower Extremities Left Other 04/04/2015 11:4 0 EDT Narrative 04/04/2015 11:44 EDT ? EXAM: RADIOLOGY/FOOT-LEFT-2 VIEW ?EX. D/ (1009) ? CLINICAL INFORMATION: ? LEFT FOOT PAIN. AP/OBL ONLY. XRAYS DONE AT [facility] ? Indication: Lateral ankle and foot pain after acute inversion injury. ? Technique: 2 view imaging of the left foot. ? Comparison: None. ? Findings: ??No acute fracture is seen. The left foot is well aligned. ? The joint spaces are preserved. ? Impression: ? 1.No acute osseous injury detected. ? REPORT SIGNED IN OTHER VENDOR SYSTEM 04/04/2015 ?Reported By: Bong Mead MD ? CC: ? Transcribed Date/Time: 04/04/2015 (1144) ? Business Office Manager: ? Printed Date/Time: 12/13/2018 (0844) ? PAGE 1 ? Signed Report ? Procedure Note Bong Mead MD - 05/09/2019 EXAM: RADIOLOGY/FOOT-LEFT-2 VIEW EX. D/ (1009) CLINICAL INFORMATION: LEFT FOOT PAIN. AP/OBL ONLY. XRAYS DONE AT [facility] Indication: Lateral ankle and foot pain after acute inversioninjury. Technique: 2 view imaging of the left foot. Comparison: None. Findings: No acute fracture is seen. The left foot is wellaligned. The joint spaces are preserved. Impression: 1.No acute osseous injury detected. REPORT SIGNED IN OTHER VENDOR SYSTEM 04/04/2015 Reported By: Bong Mead MD CC: Transcribed Date/Time: 04/04/2015 (1144) Business Office Manager: Printed Date/Time: 12/13/2018 (6562) PAGE 1 Signed Report Vivi Garcias MD IMG DIAGNOSTIC IMAGING ORDERABLES * XR ANKLE LEFT 2 VIEWS (04/04/2015 11:39 EDT) Anatomical Region Laterality Modality Lower Extremities, Ankle Left Other 04/04/2015 11:3 9 EDT Narrative 04/04/2015 11:43 EDT ? EXAM: RADIOLOGY/ANKLE LEFT 2 VIEW ? EX. D/ (1005) ? CLINICAL INFORMATION: ? LEFT ANKLE PAIN. XRAYS DONE AT [facility] ? INDICATION:History of an ankle inversion with worsening pain. ? TECHNIQUE: One view left ankle. AP. ? COMPARISON: None. ? FINDINGS: Single view AP image of the ankle was obtained. The talar ? dome appears intact. On this single view, no acute fractures seen and ? alignment appears grossly unremarkable. ? Impression: ? 1. Limited single view. No acute osseous injury detected. ? REPORT SIGNED IN OTHER VENDOR SYSTEM 04/04/2015 ?Reported By: Bong Mead MD ? CC: ? Transcribed Date/Time: 04/04/2015 (1143) ? Business Office Manager: ? Printed Date/Time: 12/13/2018 (3961) ? PAGE 1 ? Signed Report ? Procedure Note Bong Mead MD - 05/09/2019 EXAM: RADIOLOGY/ANKLE LEFT 2 VIEW EX. D/ (1005) CLINICAL INFORMATION: LEFT ANKLE PAIN. XRAYS DONE AT [facility] INDICATION:History of an ankle inversion with worsening pain. TECHNIQUE: One view left ankle. AP. COMPARISON: None. FINDINGS: Single view AP image of the ankle was obtained. The talar dome appears intact. On this single view, no acute fractures seenand alignment appears grossly unremarkable. Impression: 1. Limited single view. No acute osseous injury detected. REPORT SIGNED IN OTHER VENDOR SYSTEM 04/04/2015 Reported By: Bong Mead MD CC: Transcribed Date/Time: 04/04/2015 (1143) Business Office Manager: Printed Date/Time: 12/13/2018 (1847) PAGE 1 Signed Report Vivi Garcias MD IMG DIAGNOSTIC IMAGING ORDERABLES documented in this encounter Visit Diagnoses Not on filedocumented in this encounter Care Teams Record Press Supervisor Relationship Specialty Start Date End Date None, Provider PCP - General 04/02/15 02/12/19 Serafin Saucedo MD [address] [place] [phone] PCP - General 02/13/19 04/25/20 documented as of this encounter
--- OUTSIDE RECORDS SUMMARY | 2024-03-14 18:01 | XMS_ITS | Encounter Summary ---
Author Organization [facility] Address [address] [place] [address] Care Team Providers Care Tie Maker Name Role Phone None, Provider Primary Care Provider Serafin Zapata MD Primary Care Provider [phone] Encounter Details Date Type Department Care Team (Late st Contact Info) Description 05/20/2016 Historical Results Only [facility] - Main [place] [address] [place] [phone] Naheed Jj PA-C [address] [place] [phone] Social History Tobacco Use Types Packs/Day Years Used Date Smoking Tobacco: Never Assessed Sex and Gender Information Value Date Recorded Sex Assigned at Not on file Gender Identity Female 07/04/2019 11:12 EST Sexual Orientation Not on file documented as of this encounter Plan of Treatment Upcoming Encounters Date Type Department Care Team (Late st Contact Info) Description 03/23/2024 11:15 EDT Telemedicine [facility] Rheumatology [address] [place] [address] Venecia Vega MD [address] [place] [address] [place] [phone] documented as of this encounter Procedures Procedure Name Priority Date/Time Associated Diagnosis Comments [place] [facility] Rout[place] 05/20/2016 16:30 EST SYNOVIAL FLUID CRYSTALS Routine 05/20/2016 16:30 EST documented in this encounter Results * [place] CULT[place] [facility] (05/20/2016 16:30 EST) [place] [facility] 05/27/2016 12:37 EST [facility] FLUID CULTURE [place] [facility] No growth. 05/27/2016 12:37 EST [facility] GRAM POSITIVE RODS - [facility] RARE 05/20/2016 21:28 EST [facility] WBC MANY 05/20/2016 21:28 EST [facility] 05/20/2016 16:3 0 EST 05/20/2016 17:58 EST Comment:L Narrative [facility] - 05/27/2016 12:37 EST AOT: 05/21/16 1219: SYCRY Naheed Jj PA-C HEMATOLOGY & PF 4 ORDERABLES [facility] * SYNOVIAL FLUID CRYSTALS [place] [facility] (05/20/2016 16:30 EST) EXTRACELLULAR [place] [facility] Not Present 05/21/2016 13:00 EST [facility] INTRACELLULAR - [facility] Not Present 05/21/2016 13:00 EST [facility] SYNOVIAL FLD CRYSTALS [place] [facility] Negative 05/21/2016 13:00 EST [facility] 05/20/2016 16:3 0 EST 05/20/2016 17:58 EST Naheed Jj PA-C CHEMISTRY & BLO OD GAS ORDERABLES [facility] documented in this encounter Visit Diagnoses Not on filedocumented in this encounter Care Teams Tie Maker Relationship Specialty Start Date End Date None, Provider PCP - General 04/02/15 02/12/19 Serafin Saucedo MD [address] [place] [phone] PCP - General 02/13/19 04/25/20 documented as of this encounter
--- OUTSIDE RECORDS SUMMARY | 2024-03-14 18:01 | XMS_ITS | Encounter Summary ---
Author Organization [facility] Address [address] [place] [address] Care Team Providers Care Portal Architect Name Role Phone None, Provider Primary Care Provider Serafin Zapata MD Primary Care Provider [phone] Encounter Details Date Type Department Care Team (Late st Contact Info) Description 09/29/2016 Historical Results Only [facility] - Main [place] [address] [place] [phone] Serafin Saucedo MD [address] [place] [phone] Social History Tobacco Use Types Packs/Day Years Used Date Smoking Tobacco: Never Assessed Sex and Gender Information Value Date Recorded Sex Assigned at Not on file Gender Identity Female 07/04/2019 11:12 EST Sexual Orientation Not on file documented as of this encounter Plan of Treatment Upcoming Encounters Date Type Department Care Team (Late st Contact Info) Description 03/23/2024 11:15 EDT Telemedicine [facility] Rheumatology [address] [place], [place] [phone] Venecia Vega MD [address] [place] [address] [address] [place] [phone] documented as of this encounter Procedures Procedure Name Priority Date/Time Associated Diagnosis Comments CREATININE Routine 09/29/2016 10:24 EDT documented in this encounter Results * CREATININE (09/29/2016 10:24 EDT) CREATININE 0.98 0.5 - 1.3 mg/dL 09/29/2016 16:10 EDT [facility] eGFR >60 09/29/2016 16:10 EDT [facility] Comment: Chronic renal impairment is defined as GFR <60 Multiply result by 1.210 for patients. eGFR calculated using the IDMS-traceable MDRD Study Equation. ??(effective 05/07/2014) 09/29/2016 10:2 4 EDT 09/29/2016 15:14 EDT Serafin Saucedo MD CHEMISTRY & BLOOD G ORDERABLES [facility] documented in this encounter Visit Diagnoses Not on filedocumented in this encounter Care Teams Portal Architect Relationship Specialty Start Date End Date None, Provider PCP - General 04/02/15 02/12/19 Serafin Saucedo MD [address] [place] [phone] PCP - General 02/13/19 04/25/20 documented as of this encounter
--- OUTSIDE RECORDS SUMMARY | 2024-03-14 18:01 | XMS_ITS | Encounter Summary ---
Author Organization [facility] [place] [facility] Address [address] [place] [address] Care Team Providers Care Office Lead Name Role Phone None, Provider Primary Care Provider Unavailabl e Encounter Details Date Type Department Care Team (Latest Contact Info) Description 04/10/2016 12:12 EDT - 04/10/2016 23:59 EDT Hospital Encounter [address] [address] Unknown, Provider, Discharge Disposition: Home or Self [...] Contact Info) Description 03/23/2024 11:15 EDT Telemedicine [facility] Rheumatology [address] [place], [place] [phone] Venecia Vega MD 130 [facility] [address] [place] [phone] documented as of this encounter Visit Diagnoses Not on filedocumented in this encounter Care Teams Office Lead Relationship Specialty Start Date End Date None, Provider PCP - General 04/02/15 02/12/19 documented as of this encounter
--- OUTSIDE RECORDS SUMMARY | 2024-03-14 18:01 | XMS_ITS | Encounter Summary ---
Author Organization [facility] Address [address] [place] [address] Care Team Providers Care Admittance Attendant Name Role Phone None, Provider Primary Care Provider Serafin Zapata MD Primary Care Provider [phone] Encounter Details Date Type Department Care Team (Late st Contact Info) Description 10/21/2015 Historical Results Only [facility] Radiology Results [address] [place] [address] Kellen Turner MD [address] [place] [address]A, [address] [place] [address] Social History Tobacco Use Types [...] 11:15 EDT Telemedicine [facility] Rheumatology [address] [place] [address] Venecia Vega MD [address] [place] [address] [address] [place] [phone] documented as of this encounter Procedures Procedure Name Priority Date/Time Associated Diagnosis Comments US OB FIRST TRIMESTER (LESS THAN 14 WEEKS) TRANSVAGINAL 10/21/2015 10:57 EDT PAP TEST Routine 10/21/2015 documented in this encounter Results * US OB FIRST TRIMESTER (LESS THAN 14 WEEKS) TRANSVAGINAL (10/21/2015 10:57 EDT) Anatomical Region Laterality Modality Pelvis Other 10/21/2015 10:5 7 EDT Narrative 10/22/2015 9:20 EDT ? EXAM: ULTRASOUND/TRANSVAGINAL - OB (LEVEL EX. D/ (1057) ? CLINICAL INFORMATION: ? Z33.1 STATE ? DATING ? See attached report. ??Report also available in PACS. ? ANNETTEP:[email or web address] ?Reported By: Bong Mead MD ? CC: ? Transcribed Date/Time: 10/22/2015 (0920) ? Fleet Coordinator: LM ? Printed Date/Time: 12/15/2018 (0849) ? PAGE 1 ? Signed Report ? Procedure Note Bong Mead MD - 05/10/2019 EXAM: ULTRASOUND/TRANSVAGINAL - OB (LEVEL EX. D/ (1057) CLINICAL INFORMATION: Z33.1 STATE DATING See attached report. Report also available in PACS. QUAN:[email or web address] Reported By: Bong Mead MD CC: Transcribed Date/Time: 10/22/2015 (0920) Fleet Coordinator: LM Printed Date/Time: 12/15/2018 (5680) PAGE 1 Signed Report Kellen Turner MD IMG US OB ORDERABLES * PAP TEST (10/21/2015) 10/21/2015 10/21/2015 17: 07 EDT Narrative [facility] - 10/24/2015 14:26 EDT ----- ------- Name: DEVIKA OJEDA ? : 81 ?Age/Sex: 33/F ?Unit#: [id number] ? Loc: AGO ? Status: REG POV ?? Reg Date: 10/21/15 ? Pt.Phone Number: ? ----- ------- Specimen: [id number] ?STATUS: SOUT ?Spec Date:10/21/15 ? Physician Copies: ?Kellen Turner MD ?? Tissues: ? Cervical/Endo Pap ?Serafin Saucedo MD CPT: 84604 ?? Units: ??1 ----- ------- ? CYTOLOGY DIAGNOSIS SPECIMEN ADEQUACY: ?Satisfactory for evaluation. Transformation zone component present. GENERAL CATEGORIZATION: ?Negative for Intraepithelial Lesion or Malignancy DESCRIPTIVE DIAGNOSIS: ? Negative for Intraepithelial Lesion or Malignancy. ----- ------- ?HPV DNA RESULTS ?? 04/18/16 1707 HPV DNA RESULT ??NEG ? Negative for HPV types 16, 18, 31, 33, 35, 39, 45, 51, 52, ? 56, 58, 59, 66, 68. ? Method: Cervista HPV HR (High Risk) DNA test. ----- ------- ORDER QUERIES: LMP: 08/12/15- ? Y Post ? N ??PREVIOUS ATYPICAL: N BCP/HRT? N Rad Rx? N IUD? N ??PAP PLUS HPV? Y ??REFLEX TO HR-HPV IF ASCUS N REFLEX TO HPV 16/18 IF HPV POS/PAP NEG N HPV REGARDLESS? Y ??RFLX HPV IF LSIL ?? Signed Itz Goldman CT(ASCP) 10/24/15 By the signature above, the attending physician certifies that he/she has personally conducted a gross and/or microscopic examination of the described specimens and rendered or confirmed the above diagnosis. Test Performed by [facility], [address] [place] [address] Laundry Machine Operator: Rhona Brown MD PHD ----- ------- Kellen Turner MD PATHOLOGY ORDERABLES [facility] documented in this encounter Visit Diagnoses Not on filedocumented in this encounter Care Teams Admittance Attendant Relationship Specialty Start Date End Date None, Provider PCP - General 04/02/15 02/12/19 Serafin Saucedo MD [address] [place] [phone] PCP - General 02/13/19 04/25/20 documented as of this encounter
--- OUTSIDE RECORDS SUMMARY | 2024-03-14 18:01 | XMS_ITS | Encounter Summary ---
Author Organization [facility] Address [address] [place] [address] Care Team Providers Care Form Tamping Machine Operator Name Role Phone None, Provider Primary Care Provider Serafin Zapata MD Primary Care Provider [phone] Encounter Details Date Type Department Care Team (Late st Contact Info) Description 09/30/2015 Historical Results Only [facility] Radiology Results [address] [place] [address] Matt Moncada MD Social History Tobacco Use Types Packs/Day Years Used Date Smoking Tobacco: Never Assessed Sex and Gender Information Value Date Recorded Sex Assigned at Not on file Gender Identity Female 07/04/2019 11:12 EST Sexual Orientation Not on file documented as of this encounter Plan of Treatment Upcoming Encounters Date Type Department Care Team (Late st Contact Info) Description 03/23/2024 11:15 EDT Telemedicine [facility] Rheumatology [address] [place] [address] Venecia Vega MD 130 [facility] [address] [place] [phone] documented as of this encounter Procedures Procedure Name Priority Date/Time Associated Diagnosis Comments US OB FIRST TRIMESTER (LESS THAN 14 WEEKS) TRANSVAGINAL 09/30/2015 18:58 EDT documented in this encounter Results * US OB FIRST TRIMESTER (LESS THAN 14 WEEKS) TRANSVAGINAL (09/30/2015 18:58 EDT) Anatomical Region Laterality Modality Pelvis Other 09/30/2015 18:5 8 EDT Narrative 09/30/2015 19:04 EDT ? EXAM: ULTRASOUND/TRANSVAGINAL - OB (LEVEL EX. D/ (1801) ? CLINICAL INFORMATION: ? 7 WEEK GESTATION, SPOTTING, RULE OUT ECTOPIC ? Indication: 7 week gestation. Spotting. Rule out ectopic. ? Comparison: None. ? Technique: Endovaginal ultrasound pelvis was performed. ? Findings: ? Early Assessment: ? Biometry: ? CRL ??10.5 ??mm ?? - ??7w1d ??(6w4d to 7w5d) ? Gestational Sac present. Yolk Sac present. Embryo present. ? Heart activity: present. Heart rate: 141 bpm. ? Maternal Structures: ? Uterus: normal. ? Cervix: normal. ? Right Ovary: ? Right Ovary size: 32 mm x 31 mm x 30 mm. Volume: 15.6 ml. ? Cysts Right Ovary: ? Cyst 1: ??Mean value: 22 mm. D1: 21 mm. D2: 19 mm. D3: 26 mm. Volume: ? 5 ml. Simple cyst. ? Left Ovary: not visible. ? Cul de Sac / Pouch of Heriberto: no free fluid visible. ? No ectopic identified. ? Impression: ? 1. Single intrauterine with crown rump length measuring 7 ? weeks, one day. ? 2. Normal cardiac activity observed. ? REPORT SIGNED IN OTHER VENDOR SYSTEM 09/30/2015 ?Reported By: Luis Antonio Griffin MD ? CC: ? Transcribed Date/Time: 09/30/2015 (190) ? Technical Publications Manager: ? Printed Date/Time: 12/15/2018 (0667) ? PAGE 1 ? Signed Report ? Procedure Note Luis Antonio Griffin MD - 05/10/2019 EXAM: ULTRASOUND/TRANSVAGINAL - OB (LEVEL EX. D/ (1801) CLINICAL INFORMATION: 7 WEEK GESTATION, SPOTTING, RULE OUT ECTOPIC Indication: 7 week gestation. Spotting. Rule out ectopic. Comparison: None. Technique: Endovaginal ultrasound pelvis was performed. Findings: Early Assessment: Biometry: CRL 10.5 mm - 7w1d (6w4d to 7w5d) Gestational Sac present. Yolk Sac present. Embryo present. Heart activity: present. Heart rate: 141 bpm. Maternal Structures: Uterus: normal. Cervix: normal. Right Ovary: Right Ovary size: 32 mm x 31 mm x 30 mm. Volume: 15.6 ml. Cysts Right Ovary: Cyst 1: Mean value: 22 mm. D1: 21 mm. D2: 19 mm. D3: 26 mm.Volume: 5 ml. Simple cyst. Left Ovary: not visible. Cul de Sac / Pouch of Heriberto: no free fluid visible. No ectopic identified. Impression: 1. Single intrauterine with crown rump length measuring 7 weeks, one day. 2. Normal cardiac activity observed. REPORT SIGNED IN OTHER VENDOR SYSTEM 09/30/2015 Reported By: Luis Antonio Griffin MD CC: Transcribed Date/Time: 09/30/2015 (1903) Technical Publications Manager: Printed Date/Time: 12/15/2018 (0840) PAGE 1 Signed Report Matt Moncada MD IMG OB ORDERABLES documented in this encounter Visit Diagnoses Not on filedocumented in this encounter Care Teams Form Tamping Machine Operator Relationship Specialty Start Date End Date None, Provider PCP - General 04/02/15 02/12/19 Serafin Saucedo MD [address] [place] [phone] PCP - General 02/13/19 04/25/20 documented as of this encounter
--- OUTSIDE RECORDS SUMMARY | 2024-03-14 18:01 | XMS_ITS | Encounter Summary ---
Author Organization [facility] Address [address] [place] [address] Care Team Providers Care Singer Songwriter Name Role Phone None, Provider Primary Care Provider Serafin Zapata MD Primary Care Provider [phone] Encounter Details Date Type Department Care Team (Late st Contact Info) Description 07/27/2017 Historical Results Only [facility] Lab - Main [place] [address] [place] [address] Venecia Vega MD [address] [place] [address] [phone] Social History Tobacco Use Types [...] [facility] Rheumatology [address] [place] [address] Venecia Vega MD [address] [place] [address] [phone] documented as of this encounter Procedures Procedure Name Priority Date/Time Associated Diagnosis Comments COMPREHENSIVE METABOLIC PANEL (CMP) Routine 07/27/2017 7:31 EST documented in this encounter Results * (ABNORMAL) COMPREHENSIVE METABOLIC PANEL (CMP) (07/27/2017 7:31 [facility]) Albumin % 3.8 3.4 - 4.9 g/dL 07/27/2017 8:10 [facility] ALKALINE PHOSPHATASE - [facility] 79 38 - 126 U/L 07/27/2017 8:10 [facility] BILIRUBIN TOTAL 0.6 0.2 - 1.3 mg/dL 07/27/2017 8:10 [facility] BUN - [facility] 14 10 - 26 mg/dL 07/27/2017 8:10 [facility] CALCIUM - [facility] 9.5 8.5 - 10.5 mg/dL 07/27/2017 8:10 [facility] Chloride 104 96 - 110 mmol/L 07/27/2017 8:10 [facility] CO2 Total 26 22 - 32 mEq/L 07/27/2017 8:10 [facility] CREATININE 0.73 0.52 - 1.04 mg/dL 07/27/2017 8:10 [facility] eGFR >60 07/27/2017 8:10 [facility] Comment: Chronic renal impairment is defined as GFR <60 Multiply result by 1.210 for patients. eGFR calculated using the IDMS-traceable MDRD Study Equation. ??(effective 05/07/2014) Anion Gap 12 0 - 18 07/27/2017 8:10 [facility] GLUCOSE - [facility] 132(H) 70 - 100 mg/dL 07/27/2017 8:10 [facility] Potassium 3.3(L) 3.5 - 5.0 mEq/L 07/27/2017 8:10 [facility] Sodium 142 136 - 145 mEq/L 07/27/2017 8:10 [facility] TOTAL PROTEIN - [facility] 7.2 6.2 - 8.2 gm/dL 07/27/2017 8:10 [facility] SGOT/AST - [facility] 43(H) 14 - 36 U/L 07/27/2017 8:10 [facility] SGPT/ALT - [facility] 62(H) 9 - 52 U/L 8 8:10 EST [facility] 07/27/2017 7:31 EST 07/27/2017 7:31 EST Narrative [facility] - 07/27/2017 8:10 EST Does PT Have a Latex Allergy? NO Venecia Vega MD CHEMISTRY & BLOO D GAS ORDERABLES [facility] documented in this encounter Visit Diagnoses Not on filedocumented in this encounter Care Teams Singer Songwriter Relationship Specialty Start Date End Date None, Provider PCP - General 04/02/15 02/12/19 Serafin Saucedo MD [address] [place] [phone] PCP - General 02/13/19 04/25/20 documented as of this encounter
--- OUTSIDE RECORDS SUMMARY | 2024-03-14 18:01 | XMS_ITS | Encounter Summary ---
Author Organization [facility] Address [address] [place] [address] Care Team Providers Care Linoleum Printer Name Role Phone None, Provider Primary Care Provider Serafin Zapata MD Primary Care Provider [phone] Encounter Details Date Type Department Care Team (Late st Contact Info) Description 08/25/2017 Historical Results Only [facility] Radiology Results [address] [place], [place] [address] Serafin Saucedo MD [address] [place] [phone] Social History Tobacco Use Types Packs/Day [...] 11:15 EDT Telemedicine [facility] Rheumatology [address] [place] [address] Venecia Vega MD [address] [facility] [address] [place] [address] documented as of this encounter Procedures Procedure Name Priority Date/Time Associated Diagnosis Comments US THYROID/NECK 08/25/2017 10:09 EST documented in this encounter Results * US THYROID/NECK (08/25/2017 10:09 EST) Anatomical Region Laterality Modality Other 08/25/2017 10:0 9 EST Narrative 08/25/2017 10:12 EST ? EXAM: ULTRASOUND/THYROID ?EX. D/ (1627) ? CLINICAL INFORMATION: ? E01.0 THYROMEGALY ? INDICATION: E01.0 THYROMEGALY. ? COMPARISON: None. ? TECHNIQUE: Sonographic examination of the thyroid was performed. ? Color Doppler imaging was also utilized. ? FINDINGS: ? Right thyroid lobe: The right thyroid lobe measures 5.5 cm x 2.0 cm x ? 1.9 cm. There is a 2 mm cyst within the right thyroid lobe midpole. ? The right thyroid lobe is otherwise normal in appearance. ? Left thyroid lobe: The left thyroid lobe measures 5.1 cm x 1.5 cm x ? 1.8 cm. Hypoechoic nodule measuring 6 mm within the left thyroid lobe ? midpole. Tiny colloid cyst measuring 3 mm within the left thyroid ? midpole. ? The thyroid isthmus measures 6 mm. ? IMPRESSION: ? 1. Tiny left thyroid lobe nodule in bilateral thyroid lobes tiny ? cysts. ? REPORT SIGNED IN OTHER VENDOR SYSTEM 08/25/2017 ?Reported By: Luis Antonio Griffin MD ? CC: ? Transcribed Date/Time: 08/25/2017 (1012) ? Automatic Silk Screen Printer: ? Printed Date/Time: 12/22/2018 (8334) ? PAGE 1 ? Signed Report ? Procedure Note Luis Antonio Griffin MD - 05/10/2019 EXAM: ULTRASOUND/THYROID EX. D/ (1627) CLINICAL INFORMATION: E01.0 THYROMEGALY INDICATION: E01.0 THYROMEGALY. COMPARISON: None. TECHNIQUE: Sonographic examination of the thyroid was performed. Color Doppler imaging was also utilized. FINDINGS: Right thyroid lobe: The right thyroid lobe measures 5.5 cm x 2.0 cmx 1.9 cm. There is a 2 mm cyst within the right thyroid lobe midpole. The right thyroid lobe is otherwise normal in appearance. Left thyroid lobe: The left thyroid lobe measures 5.1 cm x 1.5 cm x 1.8 cm. Hypoechoic nodule measuring 6 mm within the left thyroidlobe midpole. Tiny colloid cyst measuring 3 mm within the left thyroid midpole. The thyroid isthmus measures 6 mm. IMPRESSION: 1. Tiny left thyroid lobe nodule in bilateral thyroid lobes tiny cysts. REPORT SIGNED IN OTHER VENDOR SYSTEM 08/25/2017 Reported By: Luis Antonio Griffin MD CC: Transcribed Date/Time: 08/25/2017 (1012) Automatic Silk Screen Printer: Printed Date/Time: 12/22/2018 (0951) PAGE 1 Signed Report Serafin Saucedo MD [facility] ORDERABLES documented in this encounter Visit Diagnoses Not on filedocumented in this encounter Care Teams Linoleum Printer Relationship Specialty Start Date End Date None, Provider PCP - General 04/02/15 02/12/19 Serafin Saucedo MD [address] [place] [phone] PCP - General 02/13/19 04/25/20 documented as of this encounter
--- OUTSIDE RECORDS SUMMARY | 2024-03-14 18:01 | XMS_ITS | Encounter Summary ---
Author Organization [facility] Address [address] [place] [address] Care Team Providers Care Trust And Estates Attorney Name Role Phone None, Provider Primary Care Provider Serafin Zapata MD Primary Care Provider [phone] Encounter Details Date Type Department Care Team (Late st Contact Info) Description 03/10/2016 Historical Results Only [facility] Radiology Results [address] [place], [place] [id number] Mary Braswell MD [address] [place], [place] [address]A, [address] [place] [address] Social History Tobacco Use Types [...] EDT Telemedicine [facility] Rheumatology [address] [place], [place] [phone] Venecia Vega MD [address] [place] [address] [address] [place] [address] documented as of this encounter Procedures Procedure Name Priority Date/Time Associated Diagnosis Comments US OB LIMITED 03/10/2016 13:25 EDT documented in this encounter Results * US OB LIMITED (03/10/2016 13:25 EDT) Anatomical Region Laterality Modality Pelvis Other 03/10/2016 13:2 5 EDT Narrative 03/11/2016 16:11 EDT ? EXAM: ULTRASOUND/TRANSABDOMINAL OB LIMITE EX. D/ (1325) ? CLINICAL INFORMATION: ? F/U LOW LYING PLACENTA ? Z33.1 ? See attached report. ??Report also available in PACS. ? METAL BONDING ASSEMBLER:cristina ?Reported By: Luis Antonio Griffin MD ? CC: ? Transcribed Date/Time: 03/11/2016 (1611) ? Mattress Stuffer: LM ? Printed Date/Time: 12/16/2018 (1233) ? PAGE 1 ? Signed Report ? Procedure Note Luis Antonio Griffin MD - 05/10/2019 EXAM: ULTRASOUND/TRANSABDOMINAL OB LIMITE EX. D/ (1325) CLINICAL INFORMATION: F/U LOW LYING PLACENTA Z33.1 See attached report. Report also available in PACS. METAL BONDING ASSEMBLER:cristina Reported By: Luis Antonio Griffin MD CC: Transcribed Date/Time: 03/11/2016 (1611) Mattress Stuffer: LM Printed Date/Time: 12/16/2018 (1187) PAGE 1 Signed Report Mary Braswell MD IMG OB ORDERABLES documented in this encounter Visit Diagnoses Not on filedocumented in this encounter Care Teams Trust And Estates Attorney Relationship Specialty Start Date End Date None, Provider PCP - General 04/02/15 02/12/19 Serafin Saucedo MD [address] [place] [phone] PCP - General 02/13/19 04/25/20 documented as of this encounter
--- OUTSIDE RECORDS SUMMARY | 2024-03-14 18:01 | XMS_ITS | Encounter Summary ---
Author Organization [facility] Address [address] [place] [address] Care Team Providers Care Reception Clerk Name Role Phone None, Provider Primary Care Provider Serafin Zapata MD Primary Care Provider [phone] Encounter Details Date Type Department Care Team (Late st Contact Info) Description 07/20/2016 Historical Results Only [facility] Lab - Main [place] [address] [place] [address] Venecai Vega MD [address] [place] [address] [phone] Social History Tobacco Use Types [...] EDT Telemedicine [facility] Rheumatology [address] [place] [address] Venecia Vega MD [address] [place] [address] [phone] documented as of this encounter Procedures Procedure Name Priority Date/Time Associated Diagnosis Comments SYNOVIAL FLD CC/DIFF - [facility] Routine 07/20/2016 14:45 EST documented in this encounter Results * (ABNORMAL) SYNOVIAL FLD CC/DIFF - [facility] (07/20/2016 14:45 EST) SYNOVIAL FLD LYMPHOCYTE - CV 10 % 07/20/2016 16:11 EST [facility] SYNOVIAL FLD MONOCYTE - CV 10 % 07/20/2016 16:11 [facility] SYNOVIAL FLD SOURCE - CV LEFT KNEE 07/20/2016 15:46 EST [facility] SYNOVIAL FLD POLY - CV 80 % 07/20/2016 16:11 [facility] SYNOVIAL FLD WBC - [facility] 33,640(H) 0 - 200 /ul 07/20/2016 15:44 [facility] Comment: 07/20/2016 14:4 5 EST 07/20/2016 15:06 EST Venecia Vega MD CHEMISTRY & BLOO D GAS ORDERABLES [facility] documented in this encounter Visit Diagnoses Not on filedocumented in this encounter Care Teams Reception Clerk Relationship Specialty Start Date End Date None, Provider PCP - General 04/02/15 02/12/19 Serafin Saucedo MD [address] [place] [phone] PCP - General 02/13/19 04/25/20 documented as of this encounter
--- OUTSIDE RECORDS SUMMARY | 2024-03-14 18:01 | XMS_ITS | Encounter Summary ---
Author Organization [facility] Address [address] [place] [address] Care Team Providers Care Motor Vehicle Emissions Inspector Name Role Phone None, Provider Primary Care Provider Unavailabl e Encounter Details Date Type Department Care Team (Latest Contact Info) Description 08/24/2017 9:15 EST - 08/24/2017 23:59 EST Hospital Encounter [address] [address] Unknown, ProviderMD Discharge Disposition: Home or Self [...] Code Departure Means Destination Home or Self Usp documented in this encounter Plan of Treatment Upcoming Encounters Date Type Department Care Team (Late st Contact Info) Description 03/23/2024 11:15 EDT Telemedicine [facility] Rheumatology [address] [place], [place] [address] Venecia Vega MD [address] [facility] [address] [place] [phone] documented as of this encounter Visit Diagnoses Not on filedocumented in this encounter Care Teams Motor Vehicle Emissions Inspector Relationship Specialty Start Date End Date None, Provider PCP - General 04/02/15 02/12/19 documented as of this encounter
--- OUTSIDE RECORDS SUMMARY | 2024-03-14 18:01 | XMS_ITS | Encounter Summary ---
Author Organization [facility] Address [address] [place] [address] Care Team Providers Care Shell Maker Lockstitch Name Role Phone None, Provider Primary Care Provider Serafin Zapata MD Primary Care Provider [phone] Encounter Details Date Type Department Care Team (Late st Contact Info) Description 10/09/2016 Historical Results Only [facility] Radiology Results [address] [place], [place] [address] Serafin Saucedo MD [address] [place] [phone] Social History Tobacco Use Types Packs/Day Years Used Date Smoking Tobacco: Never Assessed Sex and Gender Information Value Date Recorded Sex Assigned at Not on file Gender Identity Female 07/04/2019 11:12 EST Sexual Orientation Not on file documented as of this encounter Plan of Treatment Upcoming Encounters Date Type Department Care Team (Late st Contact Info) Description 03/23/2024 11:15 EDT Telemedicine [facility] Rheumatology [address] [place] [address] Venecia Vega MD [address] [facility] [address] [place] [address] documented as of this encounter Procedures Procedure Name Priority Date/Time Associated Diagnosis Comments MR ABDOMEN W WO CONTRAST 10/09/2016 11:51 EDT documented in this encounter Results * MR ABDOMEN W WO CONTRAST (10/09/2016 11:51 EDT) Anatomical Region Laterality Modality Other 10/09/2016 11:5 1 EDT Narrative 10/09/2016 12:06 EDT ? EXAM: MAGNETIC RESONANCE IMAGING/ABDOMEN ??EX. D/ (0942) ? CLINICAL INFORMATION: ? K76.89 PRIOR INCENDENTALLY NOTED 2.5cm LIVER ? NODULE RIGHT HEPATIC LOBE, NOW POST ? SUSPECT HEMANGIOMA ? INDICATION: ? K76.89 PRIOR INCENDENTALLY NOTED 2.5cm LIVER : NODULE ? RIGHT HEPATIC LOBE, NOW POST LIVER NODULE ? TECHNIQUE: ??Multiplanar multisequence MR imaging of the abdomen was ? obtained with and without gadolinium contrast. ? COMPARISON: Right upper quadrant ultrasound 04/10/2016, CT abdomen ? 03/10/2015. CT abdomen 12/28/2012. ? FINDINGS: The quality of this study is significantly degraded by ? breathing motion artifact. The lung bases appear clear. The ? visualized portions of the spleen pancreas and adrenal glands appear ? unremarkable. No upper abdominal adenopathy is noted. The kidneys ? appear symmetric and unremarkable in appearance. No hydronephrosis is ? noted. Assessment of the liver is quite limited, due to in part due ? to the extensive motion artifact. I do not definitively see a focal ? hepatic lesion on the current exam. Overall, the hepatic parenchyma ? appears grossly unremarkable. Overall hepatic size is unremarkable. ? IMPRESSION: ? 1. The 2.5 cm echogenic lesion seen on the comparison ultrasound is ? not visible on this exam. This may be due to MRI technique, and also ? due to the extensive motion artifact on this exam. Please consider ? multiphase CT to further characterize this ultrasound finding. ? REPORT SIGNED IN OTHER VENDOR SYSTEM 10/09/2016 ?Reported By: Bong Mead MD ? CC: ? Transcribed Date/Time: 10/09/2016 (1206) ? Commercial Roofer: SCR ? Printed Date/Time: 12/17/2018 (0945) ? PAGE 1 ? Signed Report ? Procedure Note Bong Mead MD - 05/10/2019 EXAM: MAGNETIC RESONANCE IMAGING/ABDOMEN EX. D/ (0942) CLINICAL INFORMATION: K76.89 PRIOR INCENDENTALLY NOTED 2.5cm LIVER NODULE RIGHT HEPATIC LOBE, NOW POST SUSPECT HEMANGIOMA INDICATION: K76.89 PRIOR INCENDENTALLY NOTED 2.5cm LIVER :NODULE RIGHT HEPATIC LOBE, NOW POST LIVER NODULE TECHNIQUE: Multiplanar multisequence MR imaging of the abdomen was obtained with and without gadolinium contrast. COMPARISON: Right upper quadrant ultrasound 04/10/2016, CT abdomen 03/10/2015. CT abdomen 12/28/2012. FINDINGS: The quality of this study is significantly degraded by breathing motion artifact. The lung bases appear clear. The visualized portions of the spleen pancreas and adrenal glandsappear unremarkable. No upper abdominal adenopathy is noted. The kidneys appear symmetric and unremarkable in appearance. No hydronephrosisis noted. Assessment of the liver is quite limited, due to in part due to the extensive motion artifact. I do not definitively see a focal hepatic lesion on the current exam. Overall, the hepatic parenchyma appears grossly unremarkable. Overall hepatic size is unremarkable. IMPRESSION: 1. The 2.5 cm echogenic lesion seen on the comparison ultrasound is not visible on this exam. This may be due to MRI technique, andalso due to the extensive motion artifact on this exam. Please consider multiphase CT to further characterize this ultrasound finding. REPORT SIGNED IN OTHER VENDOR SYSTEM 10/09/2016 Reported By: Bong Mead MD CC: Transcribed Date/Time: 10/09/2016 (1206) Commercial Roofer: Printed Date/Time: 12/17/2018 (9396) PAGE 1 Signed Report Serafin Saucedo MD IMG MRI ORDERABLES documented in this encounter Visit Diagnoses Not on filedocumented in this encounter Care Teams Shell Maker Lockstitch Relationship Specialty Start Date End Date None, Provider PCP - General 04/02/15 02/12/19 Serafin Saucedo MD [address] [place] [phone] PCP - General 02/13/19 04/25/20 documented as of this encounter
--- OUTSIDE RECORDS SUMMARY | 2024-03-14 18:01 | XMS_ITS | Encounter Summary ---
Author Organization [facility] Address [address] [place] [address] Care Team Providers Care Network Systems Administrator Name Role Phone None, Provider Primary Care Provider Serafin Zapata MD Primary Care Provider [phone] Encounter Details Date Type Department Care Team (Late st Contact Info) Description 08/05/2016 Historical Results Only [facility] Lab - Main [place] [address] [place] [address] Venecia Vega MD [address] [place] [address] [phone] Social History Tobacco Use Types Packs/Day Years Used Date Smoking Tobacco: Never Assessed Sex and Gender Information Value Date Recorded Sex Assigned at Not on file Gender Identity Female 07/04/2019 11:12 EST Sexual Orientation Not on file documented as of this encounter Plan of Treatment Upcoming Encounters Date Type Department Care Team (Late st Contact Info) Description 03/23/2024 11:15 EDT Telemedicine [facility] Rheumatology [address] [place] [address] Venecia Vega MD [address] [place] [address] [phone] documented as of this encounter Procedures Procedure Name Priority Date/Time Associated Diagnosis Comments COMPLETE BLOOD COUNT WITH DIFFERENTIAL (AUTO) Routine 08/05/2016 9:27 EST documented in this encounter Results * (ABNORMAL) COMPLETE BLOOD COUNT WITH DIFFERENTIAL (AUTO) (08/05/2016 9:27 [facility]) ABSOLUTE NEUTROPHIL COUN - [facility] 6.78 1.7 - 7.0 10e3/ul 08/05/2016 10:39 [facility] BASO # - [facility] 0.03 0.0 - 0.3 10e3/uL 08/05/2016 10:39 [facility] BASO % - [facility] 0 0 - 2 % 08/05/2016 10:39 [facility] EOS # - [facility] 0.31 0.05 - 0.5 10e3/uL 08/05/2016 10:39 [facility] EOS % - [facility] 3 0 - 5 % 08/05/2016 10:39 [facility] GRAN % - [facility] 56 40 - 80 % 08/05/2016 10:39 [facility] HEMATOCRIT - [facility] 41.5 34.0 - 47.0 % 08/05/2016 10:39 [facility] HEMOGLOBIN - [facility] 13.0 11.2 - 15.7 g/dl 08/05/2016 10:39 [facility] IG# - [facility] 0.04 0 - 0.07 10e3/uL 08/05/2016 10:39 [facility] IG% - [facility] 0.3 0 - 0.9 % 08/05/2016 10:39 [facility] LYMPH # - [facility] 4.10(H) 0.9 - 2.9 10e3/uL 08/05/2016 10:39 [facility] LYMPH% - [facility] 34 20 - 40 % 08/05/2016 10:39 [facility] MEAN CORPUSCULAR HGB - [facility] 26.7 26 - 34 pg 08/05/2016 10:39 [facility] MEAN CORPUSCULAR HGB CONC - [facility] 31.3 31 - 36 g/dL 08/05/2016 10:39 [facility] MEAN CELL VOLUME - [facility] 85.4 77 - 100 fl 08/05/2016 10:39 [facility] MONO # - [facility] 0.89 0.3 - 0.9 10e3/uL 08/05/2016 10:39 [facility] MONO% - [facility] 7 0 - 12 % 08/05/2016 10:39 [facility] PLATELET COUNT 493(H) 150 - 400 10e3/ul 08/05/2016 10:39 [facility] RED BLOOD COUNT - [facility] 4.86 3.8 - 5.2 10e6/ul 08/05/2016 10:39 [facility] RED CELL DISTRI WIDTH - [facility] 18.0(H) 11.8 - 15.6 % 08/05/2016 10:39 [facility] WHITE BLOOD COUNT - [facility] 12.2(H) 3.5 - 10.5 10e3/ul 08/05/2016 10:39 [facility] 08/05/2016 9:27 EST 08/05/2016 9:27 EST [facility] - 08/05/2016 10:47 EST Does PT Have a Latex Allergy? NO Venecia Vega MD HEMATOLOGY & PF4 ORDERABLES [facility] documented in this encounter Visit Diagnoses Not on filedocumented in this encounter Care Teams Network Systems Administrator Relationship Specialty Start Date End Date None, Provider PCP - General 04/02/15 02/12/19 Serafin Saucedo MD [address] [place] [phone] PCP - General 02/13/19 04/25/20 documented as of this encounter
--- OUTSIDE RECORDS SUMMARY | 2024-03-14 18:01 | XMS_ITS | Encounter Summary ---
Author Organization [facility] Address [address] [place] [address] Care Team Providers Care Blood Tester Name Role Phone None, Provider Primary Care Provider Serafin Zapata MD Primary Care Provider [phone] Encounter Details Date Type Department Care Team (Late st Contact Info) Description 03/17/2016 Historical Results Only [facility] Radiology Results [address] [place] [address] Matt Moncada MD Social History Tobacco Use [...] Contact Info) Description 03/23/2024 11:15 EDT Telemedicine [facility] Rheumatology [address] [place] [address] Venecia Vega MD [address] [facility] [address] [place] [phone] documented as of this encounter Procedures Procedure Name Priority Date/Time Associated Diagnosis Comments XR KNEE LEFT 4 OR MORE VIEWS 03/17/2016 23:52 EDT US EXTREMITY 03/17/2016 21:34 EDT documented in this encounter Results * XR KNEE LEFT 4 OR MORE VIEWS (03/17/2016 23:52 EDT) Anatomical Region Laterality Modality Lower Extremities Left Other 03/17/2016 23:5 2 EDT Narrative 03/17/2016 23:52 EDT ? EXAM: RADIOLOGY/KNEE COMPLETE LT 4+VIEW ?? EX. D/ (2316) ? CLINICAL INFORMATION: ? SWELLING/PAIN/EFFUSION ? EXAM: ? XR Left Knee Complete, 4 or More Views. ? CLINICAL HISTORY: ? 30 years old, female; Pain; Knee; Left; Additional info: ? Swelling/pain/effusion ? TECHNIQUE: ? Four or more views of the left knee. ? COMPARISON: ? No relevant prior studies available. ? FINDINGS: ? Bones: ??No acute fracture. ? Joints: ??Early osteoarthrosis of patellofemoral compartment. ? Small joint effusion. ? Soft tissues: ??Unremarkable. ? IMPRESSION: ? 1. ??No fracture. ? 2. ??If pain persists, suggest MRI to evaluate for occult ? fracture/internal arrangement. ? REPORT SIGNED IN OTHER VENDOR SYSTEM 03/17/2016 ?Reported By: Cedric Rao MD ? CC: ? Transcribed Date/Time: 03/17/2016 (4822) ? General Milling Superintendent: ? Printed Date/Time: 12/16/2018 (0719) ? PAGE 1 ? Signed Report ? Procedure Note Cedric Rao MD - 05/10/2019 EXAM: RADIOLOGY/KNEE COMPLETE LT 4+VIEW EX. D/ (3179) CLINICAL INFORMATION: SWELLING/PAIN/EFFUSION EXAM: XR Left Knee Complete, 4 or More Views. CLINICAL HISTORY: 30 years old, female; Pain; Knee; Left; Additional info: Swelling/pain/effusion TECHNIQUE: Four or more views of the left knee. COMPARISON: No relevant prior studies available. FINDINGS: Bones: No acute fracture. Joints: Early osteoarthrosis of patellofemoral compartment. Small joint effusion. Soft tissues: Unremarkable. IMPRESSION: 1. No fracture. 2. If pain persists, suggest MRI to evaluate for occult fracture/internal arrangement. REPORT SIGNED IN OTHER VENDOR SYSTEM 03/17/2016 Reported By: Cedric Rao MD CC: Transcribed Date/Time: 03/17/2016 (2294) General Milling Superintendent: Printed Date/Time: 12/16/2018 (5486) PAGE 1 Signed Report Matt Moncada MD IMG DIAGNOSTIC IMAGI NG ORDERABLES * US EXTREMITY (03/17/2016 21:34 EDT) Anatomical Region Laterality Modality Other 03/17/2016 21:3 4 EDT Narrative 03/17/2016 21:35 EDT ? EXAM: ULTRASOUND/DOPPLER VEIN EXTREMITY L EX. D/ (717) ? CLINICAL INFORMATION: ? SLLL - Swelling left lower extr. ? EXAM: ? US Duplex Left Lower Extremity Veins. ? CLINICAL HISTORY: ? 30 years old, female; Signs and symptoms; Swelling of limb; ? Lower extremity, left; Additional info: Slll - swelling left ? lower extr. ? TECHNIQUE: ? Real-time ultrasound scan of the veins of the left lower ? extremity with color Doppler flow, spectral waveform analysis ? and compression. ? COMPARISON: ? No relevant prior studies available. ? FINDINGS: ? Deep veins: ??Normal color and spectral Doppler flow. ??Normal ? compressibility. ??No deep vein thrombosis from common femoral to ? popliteal vein. ? Superficial veins: ??No thrombosis. ? Soft tissues: ??No popliteal cyst. ? IMPRESSION: ? No evidence of DVT within LEFT lower extremity. ? REPORT SIGNED IN OTHER VENDOR SYSTEM 03/17/2016 ?Reported By: Cedric Rao MD ? CC: ? Transcribed Date/Time: 03/17/2016 (2135) ? General Milling Superintendent: ? Printed Date/Time: 12/16/2018 (0746) ? PAGE 1 ? Signed Report ? Procedure Note Cedric Rao MD - 05/10/2019 EXAM: ULTRASOUND/DOPPLER VEIN EXTREMITY L EX. D/ (2102) CLINICAL INFORMATION: SLLL - Swelling left lower extr. EXAM: US Duplex Left Lower Extremity Veins. CLINICAL HISTORY: 30 years old, female; Signs and symptoms; Swelling of limb; Lower extremity, left; Additional info: Slll - swelling left lower extr. TECHNIQUE: Real-time ultrasound scan of the veins of the left lower extremity with color Doppler flow, spectral waveform analysis and compression. COMPARISON: No relevant prior studies available. FINDINGS: Deep veins: Normal color and spectral Doppler flow. Normal compressibility. No deep vein thrombosis from common femoral to popliteal vein. Superficial veins: No thrombosis. Soft tissues: No popliteal cyst. IMPRESSION: No evidence of DVT within LEFT lower extremity. REPORT SIGNED IN OTHER VENDOR SYSTEM 03/17/2016 Reported By: Cedric Rao MD CC: Transcribed Date/Time: 03/17/2016 (4705) General Milling Superintendent: Printed Date/Time: 12/16/2018 (5084) PAGE 1 Signed Report Matt Moncada MD IMG US ORDERABLES documented in this encounter Visit Diagnoses Not on filedocumented in this encounter Care Teams Blood Tester Relationship Specialty Start Date End Date None, Provider PCP - General 04/02/15 02/12/19 Serafin Saucedo MD [address] [place] [phone] PCP - General 02/13/19 04/25/20 documented as of this encounter
--- OUTSIDE RECORDS SUMMARY | 2024-03-14 18:02 | XMS_ITS ---
Author Organization Unknown Address [address] [place] [phone] Phone Care Team Providers Care Dietary Clerk Name Role Phone FADI Alonzo MD Attending Nash CASE Primary Unavailable Social History Type Status Start Date End Date Code Code Syst em Smoking History Never smoker (Never Smoked) 879028544 SNOMED CT Sex Female Medications Medication Start Date End Date Route Frequency Dose Code Code System Medication Instructions Home Meds Cefpodoxime Proxetil 200MG Oral Tablet 03/08/2022 05/14/2022 ORAL TWICE A DAY 1 TABLET 017873 RxNorm TAKE 1 TABLET ORAL TWICE A DAY Pyridium 100MG Oral Tablet 03/08/2022 05/14/2022 ORAL THREE TIMES A DAY 1 TABLET 4709368 RxNorm TAKE 1 TABLET ORAL THREE TIMES A DAY Zofran 4MG Oral Tablet 09/03/2022 05/23/2023 ORAL EVERY 6 HOURS 1 TABLET 501682 RxNorm TAKE 1 TABLET ORAL EVERY 6 HOURS FOR Nausea Zithromax 250MG Oral Tablet 07/04/2023 Unknown ORAL DAILY 1 TABLET 691026 RxNorm TAKE 1 TABLET ORAL DAILY Assessment [...] Status Code Code System TMJ DISORDER active 02528281 SNOMED- CT GERD 03/08/2022 resolved 122027082 SNOMED-CT ARTHRITIS 03/08/2022 resolved 5616079 SNOMED-CT ANEMIA 03/08/2022 resolved 162852207 SNOMED-CT DILATATION AND CURETTAGE PLANNED 03/08/2022 resolved 430116860 SNOMED-CT Allergies and Adverse Reactions Allergy Substance Reaction Severity Start Date Concern Status Co de Code System No Known Allergies Active 338559341 SNO MED-CT Plan of Treatment MRI UPPER EXT JOINT W/O CONTRAST 2023 MRI LOWER EXT JOINT W/O CONTRAST 2022 US ABDOMEN LIMITED 1 ORGAN 09/03/2022 MRI TMJ W/O CONTRAST 06/04/2022 US ABDOMEN LIMITED 1 ORGAN 08/26/2021 Encounters Encounter Diagnosis Start Date Code Code Sys tem Left lower quadrant pain 02/25/2021 SNO MED-CT Personal Care Team Section Performer Name Performer Role Active Date Inactive Da te
--- OUTSIDE RECORDS SUMMARY | 2024-03-14 18:02 | XMS_ITS | Encounter Summary ---
Author Organization [facility] Address [address] [place] [address] Care Team Providers Care Filter Press Supervisor Name Role Phone Unknown, Provider Primary Care Provider None, Provider Primary Care Provider Serafin Zapata MD Primary Care Provider [phone] Encounter Details Date Type Department Care Team (Late st Contact Info) Description 06/17/2014 Historical Results Only [facility] Radiology Results [address] [place], [place] [phone] Singh Gilbert, DO [address] [facility] [address] [place] [address] Social History Tobacco Use Types Packs/Day Years [...] 03/23/2024 11:15 EDT Telemedicine [facility] Rheumatology [address] [place] [address] Venecia Vega MD [address] [facility] [address] [place] [address] documented as of this encounter Procedures Procedure Name Priority Date/Time Associated Diagnosis Comments XR LUMBAR SPINE 2-3 VIEWS 06/17/2014 10:41 EST documented in this encounter Results * XR LUMBAR SPINE 2-3 VIEWS (06/17/2014 10:41 EST) Anatomical Region Laterality Modality Other 06/17/2014 10:4 1 EST Narrative 06/17/2014 12:09 EST ? EXAM: RADIOLOGY EXPRESS CARE/EXP CARE XR ??EX. D/ (1041) ? CLINICAL INFORMATION: ? LOWER BACK PAIN. S/P FELL DOWN THE STAIRS. R/O COMPRESSION FX OF L2 ? Patient Name: Adam, Arabella ? Date of : 1985 ? Exam: XR LUMBAR SPINE 2 OR 3 VIEWS ? Date of Exam: 06/17/2014 ? Referring Physician: Vladimir Winters ? Clinical History: LOWER BACK PAIN. S/P FELL DOWN STAIRS. R/O ? COMPRESSION FX OF L2 ? FINAL REPORT ? EXAM: ? XR Lumbar Spine, 2 or 3 Views. ? CLINICAL HISTORY: ? 29 years old, female; Lower back pain. S/P Fell down stairs. r/o ? compression FX of l2 ? TECHNIQUE: ? Frontal and lateral views of the lumbar spine. ? EXAM DATE/TIME: ? Exam ordered 06/17/2014 10:35 AM ? COMPARISON: ? No relevant prior studies available. ? FINDINGS: ? Vertebrae: -No fracture -The facets are without acute process. Normal ? alignment. ? Disc spaces: -disk space height is well-maintained ? Soft tissues: no gross soft tissue abnormality. ? Other findings: -Five non-rib bearing lumbar segments in near ? anatomical ? alignment. -The alignment is normal. -no osteophytosis. No visualized ? pars defect. ? IMPRESSION: ? Normal lumbar spine series ? Dictated, Authenticated, and ?Reported By: Willie Maza ? CC: ? Transcribed Date/Time: 06/17/2014 (1209) ? Reacher: NELSON ? Printed Date/Time: 12/05/2018 (1029) ? PAGE 1 ? Signed Report ? Procedure Note Willie Maza MD - 05/09/2019 EXAM: RADIOLOGY EXPRESS CARE/EXP CARE XR EX. D/ (1041) CLINICAL INFORMATION: LOWER BACK PAIN. S/P FELL DOWN THE STAIRS. R/O COMPRESSION FX OF L2 Patient Name: Arabella Medina Date of : 1985 Exam: XR LUMBAR SPINE 2 OR 3 VIEWS Date of Exam: 06/17/2014 Referring Physician: Vladimir Winters Clinical History: LOWER BACK PAIN. S/P FELL DOWN STAIRS. R/O COMPRESSION FX OF L2 FINAL REPORT EXAM: XR Lumbar Spine, 2 or 3 Views. CLINICAL HISTORY: 29 years old, female; Lower back pain. S/P Fell down stairs. r/o compression FX of l2 TECHNIQUE: Frontal and lateral views of the lumbar spine. EXAM DATE/TIME: Exam ordered 06/17/2014 10:35 AM COMPARISON: No relevant prior studies available. FINDINGS: Vertebrae: -No fracture -The facets are without acute process. Normal alignment. Disc spaces: -disk space height is well-maintained Soft tissues: no gross soft tissue abnormality. Other findings: -Five non-rib bearing lumbar segments in near anatomical alignment. -The alignment is normal. -no osteophytosis. Novisualized pars defect. IMPRESSION: Normal lumbar spine series Dictated, Authenticated, and Reported By: Willie Maza CC: Transcribed Date/Time: 06/17/2014 (6697) Reacher: NELSON Printed Date/Time: 12/05/2018 (0448) PAGE 1 Signed Report Singh Gilbert DO IMG DIAGNOSTIC [place]AN GING ORDERABLES documented in this encounter Visit Diagnoses Not on filedocumented in this encounter Care Teams Filter Press Supervisor Relationship Specialty Start Date End Date Unknown, Provider, PCP - General 07/31/13 04/01/15 None, Provider PCP - General 04/02/15 02/12/19 Serafin Saucedo MD [address] [place] [phone] PCP - General 02/13/19 04/25/20 documented as of this encounter
--- OUTSIDE RECORDS SUMMARY | 2024-03-14 18:02 | XMS_ITS | Encounter Summary ---
Author Organization [facility] Address [address] [place] [address] Care Team Providers Care Program Developer Name Role Phone Unknown, Provider Primary Care Provider [phone] None, Provider Primary Care Provider Serafin Zapata MD Primary Care Provider Encounter Details Date Type Department Care Team (Late st Contact Info) Description 02/17/2013 Historical Results Only [facility] - Main [place] [address] [place] [address] Mila Morrell MD [address] [place], [place] [address], [address] [place] [address] Social History Tobacco Use Types [...] EDT Telemedicine [facility] Rheumatology [address] [place] [address] Venecia Vega MD [address] [place], [place] [address] [address] [place] [address] documented as of this encounter Procedures Procedure Name Priority Date/Time Associated Diagnosis Comments PAP TEST Routine 02/17/2013 documented in this encounter Results * PAP TEST (02/17/2013) 02/17/2013 02/18/2013 10: 32 EDT Narrative [facility] - 02/23/2013 9:13 EDT ----- ------- Name: DEVIKA VICENTE ?: [birth year] ?Age/Sex: 34/F ?Unit#: [id number] ? Loc: AGO ? Status: REG POV ?? Reg Date: 02/17/13 ? Pt.Phone Number: ? ----- ------- Specimen: [id number] ?STATUS: SOUT ?Spec Date:02/17/13 ? Physician Copies: ?Mila Morrell MD ?? Tissues: ? Cervical/Endo Pap ?Serafin Saucedo MD CPT: 72579 ?? Units: ??1 ----- ------- ? CYTOLOGY DIAGNOSIS SPECIMEN ADEQUACY: ?Satisfactory for evaluation. Transformation zone component present. GENERAL CATEGORIZATION: ?Negative for Intraepithelial Lesion or Malignancy DESCRIPTIVE DIAGNOSIS: ? Negative for Intraepithelial Lesion or Malignancy. RECOMMENDATIONS/COMMENTS: ?None. ----- ------- ORDER QUERIES: LMP: [id number] ?? - ? N Post ? Y ??PREVIOUS ATYPICAL: N BCP/HRT? N Rad Rx? N IUD? N ??PAP PLUS HPV? N ??REFLEX TO HR-HPV IF ASCUS ?? REFLEX TO HPV 16/18 IF HPV POS/PAP NEG ?? HPV REGARDLESS?RFLX HPV IF LSIL ?? IF ASCUS DO HPV? Y Signed ____(signature on file)____ Rhona Brown M.D. 02/23/13 By the signature above, the attending physician certifies that he/she has personally conducted a gross and/or microscopic examination of the described specimens and rendered or confirmed the above diagnosis. Test Performed by [facility], [address] [place], [place] [id number] Proposal Director: Rhona Brown MD PHD ----- ------- Mila Morrell MD PATHOLOGY ORDERABLES [facility] documented in this encounter Visit Diagnoses Not on filedocumented in this encounter Care Teams Program Developer Relationship Specialty Start Date End Date Unknown, Provider, PCP - General 07/31/13 04/01/15 None, Provider PCP - General 04/02/15 02/12/19 Serafin Saucedo MD [address] [place] [phone] PCP - General 02/13/19 04/25/20 documented as of this encounter
--- OUTSIDE RECORDS SUMMARY | 2024-03-14 18:02 | XMS_ITS | Encounter Summary ---
Author Organization [facility] Address [address] [place] [address] Care Team Providers Care Commercial Or Institutional Cleaner Name Role Phone Unavailable Primary Care Provider Unavailabl e Encounter Details Date Type Department Care Team (Late st Contact Info) Description 03/23/2006 Before PRISM Converted Visit (Maple) [facility] - Maple conversion [address] [place] [address] Ana Rai MD [address] [facility] [place] [phone] Social History Tobacco Use Types Packs/Day Years Used Date Smoking Tobacco: Never Assessed Sex and Gender Information Value Date Recorded Sex Assigned at Not on file Gender Identity Female 07/04/2019 11:12 EST Sexual Orientation Not on file documented as of this encounter Consult Notes * Ana Rai MD - 06/29/2009 0031 EST DIVISION OF MATERNAL MEDICINE CONSULTATION March 23, 2006 Amador Heart MD [address] [place] [address], [address] [place] [address] Dear Amador: Thank you for having Ms. Arabella Mariee come to the maternal medicine service for consultation.As you know, she is a 20-year-old, 2 para 0-0-1-0, who presents for echocardiographicexamination secondary to the question of a right ventricular prominence on prior ultrasound examination. The patient was approximately 29 weeks at the time of our evaluation. At the time of our scan, a single viable intrauterine was confirmed in cephalic position.The heart was appropriately oriented in the chest with normal axis, position, and contractility. The four-chamber view was noted to be intact, and AV valve function demonstrated no abnormalities. There was good AV biphasic inflow and no evidence of regurgitation. Outflow velocities weremeasured in both the aorta and main pulmonary artery, and these were well within normal limits without evidence for incompetence for either the pulmonic or aortic valves. The fetus inflow to the right atrium was identified in the form of both the superior and inferior vena cava. Return to the left atrium was seen with two pulmonary veins identified. This was felt to represent a normal anatomic study. The right ventricle did have a prominent moderator band as well as some prominence of the valvular musculature, but I saw no abnormalities, and the study was generally felt to be a normal study. There was a normal rate and rhythm throughout. Once again, I thank you for having Ms. Mariee come to the maternal medicine service. If you have any additional questions, please do not hesitate to contact me. Sincerely, Signed by Ana Rai MD 04/16/2006 08:05 Maribell Cox MD Ana Rai MD - Ana Rai MD P - lw Job ID: [id number] Document ID: [id number] cc: Amador Heart MD documented in this encounter Plan of Treatment Upcoming Encounters Date Type Department Care Team (Late st Contact Info) Description 03/23/2024 11:15 EDT Telemedicine [facility] Rheumatology [address] [place], [place] [phone] Venecia Vega MD [address] [facility] [address] [place] [phone] documented as of this encounter Visit Diagnoses Not on filedocumented in this encounter
--- OUTSIDE RECORDS SUMMARY | 2024-03-14 18:02 | XMS_ITS | Encounter Summary ---
Author Organization [facility] Address [address] [place] [address] Care Team Providers Care Under Ground Miner Name Role Phone Unknown, Provider Primary Care Provider [phone] None, Provider Primary Care Provider Serafin Zapata MD Primary Care Provider [phone] Encounter Details Date Type Department Care Team (Late st Contact Info) Description 06/01/2014 Historical Results Only [facility] Radiology Results [address] [place], [place] [phone] Lawanda Worthington, REGULATORY SERVICES CONSULTANT [address] [facility] [address] [place] [address] Social History Tobacco Use Types [...] Description 03/23/2024 11:15 EDT Telemedicine [facility] Rheumatology [address] [place] [address] Venecia Vega MD [address] [facility] [address] [place] [address] documented as of this encounter Procedures Procedure Name Priority Date/Time Associated Diagnosis Comments US PELVIS TRANSVAGINAL COMPLETE 06/01/2014 9:53 EST documented in this encounter Results * US PELVIS TRANSVAGINAL (06/01/2014 9:53 EST) Anatomical Region Laterality Modality Pelvis Other 06/01/2014 9:53 EST Narrative 06/01/2014 9:57 EST ? EXAM: ULTRASOUND/TRANSVAGINAL - ESTATE PLANNING PARALEGAL ? EX. D/ (0939) ? CLINICAL INFORMATION: ? 625.9 PELVIC PAIN IN FEMALE ? INDICATION: Pelvic pain ? TECHNIQUE: Transvaginal pelvic ultrasound. Color flow Doppler imaging ? was obtained. ? COMPARISON: None. ? FINDINGS: The uterus measures 7.8 x 4.0 x 5.2 centimeters. The ? endometrium measures 7 mm in thickness. An IUD is present within the ? endometrial cavity. The uterine parenchyma is unremarkable. No free ? fluid is seen in the cul-de-sac. The right ovary measures 3.2 x 2.1 x ? 2.5 cm. ?The left ovary measures 2.5 x 1.3 x 2.0 cm. ? The ? ovarian parenchyma is normal in appearance. ? IMPRESSION: ? No uterine or ovarian abnormality detected. ? REPORT SIGNED IN OTHER VENDOR SYSTEM 06/01/2014 ?Reported By: Bong Mead MD ? CC: ? Transcribed Date/Time: 06/01/2014 (0957) ? Soaker Hides: ? Printed Date/Time: 12/05/2018 (1029) ? PAGE 1 ? Signed Report ? Procedure Note Bong Mead MD - 05/09/2019 EXAM: ULTRASOUND/TRANSVAGINAL - ESTATE PLANNING PARALEGAL EX. D/ (0939) CLINICAL INFORMATION: 625.9 PELVIC PAIN IN FEMALE INDICATION: Pelvic pain TECHNIQUE: Transvaginal pelvic ultrasound. Color flow Dopplerimaging was obtained. COMPARISON: None. FINDINGS: The uterus measures 7.8 x 4.0 x 5.2 centimeters. The endometrium measures 7 mm in thickness. An IUD is present withinthe endometrial cavity. The uterine parenchyma is unremarkable. No free fluid is seen in the cul-de-sac. The right ovary measures 3.2 x 2.1x 2.5 cm. The left ovary measures 2.5 x 1.3 x 2.0 cm. The ovarian parenchyma is normal in appearance. IMPRESSION: No uterine or ovarian abnormality detected. REPORT SIGNED IN OTHER VENDOR SYSTEM 06/01/2014 Reported By: Bong Mead MD CC: Transcribed Date/Time: 06/01/2014 (0957) Soaker Hides: Printed Date/Time: 12/05/2018 (2214) PAGE 1 Signed Report Lawanda Worthington REGULATORY SERVICES CONSULTANT IMG US OB ORDERABLES documented in this encounter Visit Diagnoses Not on filedocumented in this encounter Care Teams Under Ground Miner Relationship Specialty Start Date End Date Unknown, Provider, PCP - General 07/31/13 04/01/15 None, Provider PCP - General 04/02/15 02/12/19 Serafin Saucedo MD [address] [place] [phone] PCP - General 02/13/19 04/25/20 documented as of this encounter
--- OUTSIDE RECORDS SUMMARY | 2024-03-14 18:02 | XMS_ITS ---
Author Organization Unknown Address [address] [place] [phone] Phone Care Team Providers Care Deckhand Name Role Phone FADI Alonzo MD Attending Nash CASE Primary Unavailable Social History Type Status Start Date End Date Code Code Syst em Smoking History Never smoker (Never Smoked) 673112522 SNOMED CT Sex Female Medications Medication Start Date End Date Route Frequency Dose Code Code System Medication Instructions Home Meds Cefpodoxime Proxetil 200MG Oral Tablet 03/08/2022 05/14/2022 ORAL TWICE A DAY 1 TABLET 944908 RxNorm TAKE 1 TABLET ORAL TWICE A DAY Pyridium 100MG Oral Tablet 03/08/2022 05/14/2022 ORAL THREE TIMES A DAY 1 TABLET 5643599 RxNorm TAKE 1 TABLET ORAL THREE TIMES A DAY Zofran 4MG Oral Tablet 09/03/2022 05/23/2023 ORAL EVERY 6 HOURS 1 TABLET 905290 RxNorm TAKE 1 TABLET ORAL EVERY 6 HOURS FOR Nausea Zithromax 250MG Oral Tablet 07/04/2023 Unknown ORAL DAILY 1 TABLET 836461 RxNorm TAKE 1 TABLET ORAL DAILY Assessment You had the following problems:TMJ DISORDER Hospital Discharge Instructions Should you have any questions prior to discharge, please contact a member of your healthcare team. If you have left the hospital and have any questions, please contact your primary care physician. Reason For Referral No Data Found Procedures Procedure Name Date Status Code Code Syste m Colsc Flx w/Rmvl Of Tumor Po lyp Lesion Snare Tq 03/06/2021 completed 21968 CPT Colonoscopy, Flexible, Proxi mal To Splenic Flexure; w/Bx, Single/Multiple 03/06/2021 completed 02898 C PT Problems Problem Start Date Resolved Date Status Code Code System TMJ DISORDER active 48812981 SNOMED- CT GERD 03/08/2022 resolved 833578469 SNOMED-CT ARTHRITIS 03/08/2022 resolved 3983893 SNOMED-CT ANEMIA 03/08/2022 resolved 955375334 SNOMED-CT DILATATION AND CURETTAGE PLANNED 03/08/2022 resolved 646336561 SNOMED-CT Allergies and Adverse Reactions Allergy Substance Reaction Severity Start Date Concern Status Co de Code System No Known Allergies Active 410542219 SNO MED-CT Plan of Treatment MRI UPPER EXT JOINT W/O CONTRAST 2023 MRI LOWER EXT JOINT W/O CONTRAST 2022 US ABDOMEN LIMITED 1 ORGAN 09/03/2022 MRI TMJ W/O CONTRAST 06/04/2022 US ABDOMEN LIMITED 1 ORGAN 08/26/2021 Encounters Encounter Diagnosis Start Date Code Code 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
--- OUTSIDE RECORDS SUMMARY | 2024-03-14 18:02 | XMS_ITS | Encounter Summary ---
Author Organization [facility] Address [address] [place] [address] Care Team Providers Care Continuous Drier Operator Name Role Phone Unavailable Primary Care Provider Unavailabl e Encounter Details Date Type Department Care Team (Late st Contact Info) Description 11/30/2003 Results Only [facility] - Maple conversion [address] [place] [address] Stephanie Monique, [address] [place] [address] Social History Tobacco Use Types Packs/Day Years [...] 11:15 EDT Telemedicine [facility] Rheumatology [address] [place], [place] [phone] Venecia Vega MD [address] [facility] [address] [place] [address] documented as of this encounter Procedures Procedure Name Priority Date/Time Associated Diagnosis Comments CYTOPATHOLOGY Routine 11/30/2003 0:00 EDT documented in this encounter Results * CYTOPATHOLOGY (11/30/2003 0:00 EDT) Pathology Report: CYTOPATHOLOGY REPORT Reports generated via electronic interface contain original data; however they are lacking the format of the original report. Caution should be taken when reading/interpreti ng unformatted reports. Name: ? DEVIKA SHABAZZ ? Accession #: ? [id number] : ? 1985 (Age: 18) ??F ?Collect Date: ? 11/30/2003 Location: ? [facility] ? Receive Date: ? 12/05/2003 Provider: ?STEPHANIE MONIQUE HOTEL SERVICE MANAGER Copy to: ? Specimen/Source: ?ThinPrep Pap Test, Cervix/Endocervix Last Menstrual Period: ? 11/16/03 Hormonal/Contracep tive Status: ? Oral contraceptives Other: ? HPVA - HPV testing requested if ASC-US on the current ThinPrep Pap test. ? SPECIMEN ADEQUACY ? Satisfactory for Evaluation - transformation zone component present - scant squamous epithelial component secondary to excessive blood GENERAL CATEGORIZATION ? Negative for Intraepithelial Lesion or Malignancy ? Document reviewed and electronically signed by: ? Lucía Ramon, SCT(ASCP) ? Report Date: ??12/10/2003 13:06 End of Report ELIZABETH RUSSELL 11/30/2003 12/05/2003 Stephanie Monique HOTEL SERVICE MANAGER PATHOLOGY ORDERABLES ELIZABETH RUSSELL [address] [place] [address] documented in this encounter Visit Diagnoses Not on filedocumented in this encounter
--- OUTSIDE RECORDS SUMMARY | 2024-03-14 18:02 | XMS_ITS | Encounter Summary ---
Author Organization [facility] Address [address] [place] [address] Care Team Providers Care Still Pump Operator Name Role Phone Unknown, Provider Primary Care Provider None, Provider Primary Care Provider Serafin Zapata MD Primary Care Provider Encounter Details Date Type Department Care Team (Late st Contact Info) Description 12/01/2011 Historical Results Only [facility] - Main [place] [address] [place] [address] Andi Lewis MD Social History Tobacco Use Types Packs/Day [...] EDT Telemedicine [facility] Rheumatology [address] [place], [place] [phone] Venecia Vega MD [address] [place] [address] [address] [place] [phone] documented as of this encounter Procedures Procedure Name Priority Date/Time Associated Diagnosis Comments PAP TEST Routine 12/01/2011 documented in this encounter Results * PAP TEST (12/01/2011) 12/01/2011 12/01/2011 20: 50 EDT Narrative [facility] - 12/03/2011 11:44 EDT ----- ------- Name: DEVIKA VICENTE ?: [birth year] ?Age/Sex: 34/F ?Unit#: [id number] ? Loc: AGO ? Status: REG POV ?? Reg Date: 12/01/11 ? Pt.Phone Number: ? ----- ------- Specimen: [id number] ?STATUS: SOUT ?Spec Date:12/01/11 ? Physician Copies: ?Andi Lewis MD ? Tissues: ? Cervical/Endo Pap ?Serafin Saucedo MD CPT: 01107 ?? Units: ??1 ----- ------- ? CYTOLOGY DIAGNOSIS SPECIMEN ADEQUACY: ?Satisfactory for evaluation. Transformation zone component ABSENT. GENERAL CATEGORIZATION: ?Negative for Intraepithelial Lesion or Malignancy DESCRIPTIVE DIAGNOSIS: ? Negative for Intraepithelial Lesion or Malignancy. RECOMMENDATIONS/COMMENTS: ?None. ----- ------- ORDER QUERIES: LMP: NONE WIT- IUD ? N Post ? N ??PREVIOUS ATYPICAL: N BCP/HRT? Y Rad Rx? N IUD? Y ??PAP PLUS HPV? N ??REFLEX TO HR-HPV IF ASCUS ?? REFLEX TO HPV 16/18 IF HPV POS/PAP NEG ?? HPV REGARDLESS?RFLX HPV IF LSIL ?? IF ASCUS DO HPV? Y Signed Dana Prince CT(ASCP) 12/03/11 ? By the signature above, the attending physician certifies that he/she has personally conducted a gross and/or microscopic examination of the described specimens and rendered or confirmed the above diagnosis. Test Performed by [facility], [address] [place] [address] Videogame Tester: Rhona Brown MD PHD ----- ------- Andi Lewis MD PATHOLOGY ORDERABLES Performing Organization Address City/State/[facility] Co de Phone Number [facility] documented in this encounter Visit Diagnoses Not on filedocumented in this encounter Care Teams Still Pump Operator Relationship Specialty Start Date End Date Unknown, Provider, PCP - General 07/31/13 04/01/15 None, Provider PCP - General 04/02/15 02/12/19 Serafin Saucedo MD [address] [place] [address] PCP - General 02/13/19 04/25/20 documented as of this encounter
--- OUTSIDE RECORDS SUMMARY | 2024-03-14 18:02 | XMS_ITS | Encounter Summary ---
Author Organization [facility] Address [address] [place] [address] Care Team Providers Care Visual Manager Name Role Phone Unknown, Provider Primary Care Provider None, Provider Primary Care Provider Serafin Zapata MD Primary Care Provider [phone] Encounter Details Date Type Department Care Team (Late st Contact Info) Description 12/22/[address] [facility] - Main [place] [address] [place], [place] [phone] Andi Lewis MD Social History Tobacco Use [...] EDT Telemedicine [facility] Rheumatology [address] [place] [address] Venecia Vega MD [address] [place] [address] [address] [place] [address] documented as of this encounter Procedures Procedure Name Priority Date/Time Associated Diagnosis Comments PAP TEST Routine 12/22/2010 15:49 EDT documented in this encounter Results * PAP TEST (12/22/2010 15:49 EDT) 12/22/2010 15:4 9 EDT 12/22/2010 17:28 EDT Narrative [facility] - 12/25/2010 11:51 EDT ----- ------- Name: DEVIKA VICENTE ?: [birth year] ?Age/Sex: 34/F ?Unit#: [id number] ? Loc: AGO ? Status: REG POV ?? Reg Date: 12/22/10 ? Pt.Phone Number: ? ----- ------- Specimen: [id number] ?STATUS: SOUT ?Spec Date:12/22/10 ? Physician Copies: ?Andi Lewis MD ? Tissues: ? Cervical/Endo Pap ?Serafin Saucedo MD CPT: 17742 ?? Units: ??1 ----- ------- ? CYTOLOGY DIAGNOSIS SPECIMEN ADEQUACY: ?Satisfactory for evaluation. Transformation zone component present. GENERAL CATEGORIZATION: ?Negative for Intraepithelial Lesion or Malignancy DESCRIPTIVE DIAGNOSIS: ? Negative for Intraepithelial Lesion or Malignancy. RECOMMENDATIONS/COMMENTS: ?None. ----- ------- ORDER QUERIES: LMP: SPORATIC- ? N Post ? N ??PREVIOUS ATYPICAL: N BCP/HRT? Y Rad Rx? N IUD? Y ??PAP PLUS HPV? N ??REFLEX TO HR-HPV IF ASCUS ?? REFLEX TO HPV 16/18 IF HPV POS/PAP NEG ?? HPV REGARDLESS?RFLX HPV IF LSIL ?? IF ASCUS DO HPV? Y Signed Maria Victoria Hines CT(ASCP) 12/25/10 By the signature above, the attending physician certifies that he/she has personally conducted a gross and/or microscopic examination of the described specimens and rendered or confirmed the above diagnosis. Test Performed by [facility], [address] [place] [address] Equip Tech: Rhona Brown MD PHD ----- ------- Andi Lewis MD PATHOLOGY ORDERABLES [facility] documented in this encounter Visit Diagnoses Not on filedocumented in this encounter Care Teams Visual Manager Relationship Specialty Start Date End Date Unknown, Provider, PCP - General 07/31/13 04/01/15 None, Provider PCP - General 04/02/15 02/12/19 Serafin Saucedo MD [address] [place] [phone] PCP - General 02/13/19 04/25/20 documented as of this encounter
--- OUTSIDE RECORDS SUMMARY | 2024-03-14 18:02 | XMS_ITS | Encounter Summary ---
Author Organization [facility] Address [address] [place] [address] Care Team Providers Care Solidworks Mechanical Designer Name Role Phone Unknown, Provider Primary Care Provider None, Provider Primary Care Provider Serafin Zapata MD Primary Care Provider Encounter Details Date Type Department Care Team (Late st Contact Info) Description 09/22/2012 Historical Results Only [facility] - Main [place] [address] [place], [place] [phone] Andi Lewis MD Social History Tobacco Use [...] [facility] Rheumatology [address] [place] [address] Venecia Vega MD [address] [place] [address] [address] [place] [phone] documented as of this encounter Procedures Procedure Name Priority Date/Time Associated Diagnosis Comments SURGICAL PATHOLOGY Routine 09/22/2012 documented in this encounter Results * SURGICAL PATHOLOGY (09/22/2012) 09/22/2012 09/22/2012 15: 49 EDT Narrative [facility] - 09/26/2012 10:38 EDT ----- ------- Name: DEVIKA VICENTE ?: [birth year] ?Age/Sex: 34/F ?Unit#: [id number] ? Loc: AGO ? Status: REG POV ?? Reg Date: 09/22/12 ? Pt.Phone Number: ? ----- ------- Specimen: [id number] ? STATUS: SOUT ?Spec Date:09/22/12 ? Physician Copies: ?Andi Lewis MD ? Tissues: A ?? Urinary Tract (KIDNEY STONE) ? Serafin Saucedo MD CPT: 74498 ?? Units: ??1 ?FINAL DIAGNOSIS ? Gross diagnosis; ? -Kidney stone. ? GROSS DESCRIPTION ? Received in a container and labeled kidney stone is a 0.1 cm tissue fragment ? suggestive of calculus and some pus-like material. ??Sent for stone analysis. ? BT ?? PREOP DX/CLINICAL HISTORY ?Kidney stone Signed ____(signature on file)____ Jeff Reyes M.D. 09/26/12 ?? By the signature above, the attending physician certifies that he/she has personally conducted a gross and/or microscopic examination of the described specimens and rendered or confirmed the above diagnosis. Test Performed by [facility], [address] [place] [address] Linen Clerk: Rhona Brown MD PHD ----- ------- Andi Lewis MD PATHOLOGY ORDERABLES Performing Organization Address City/State/[facility] Co de Phone Number [facility] documented in this encounter Visit Diagnoses Not on filedocumented in this encounter Care Teams Solidworks Mechanical Designer Relationship Specialty Start Date End Date Unknown, Provider, PCP - General 07/31/13 04/01/15 None, Provider PCP - General 04/02/15 02/12/19 Serafin Saucedo MD [address] [place] [phone] PCP - General 02/13/19 04/25/20 documented as of this encounter
--- OUTSIDE RECORDS SUMMARY | 2024-03-14 18:02 | XMS_ITS ---
Author Organization [facility] Address [address] [place] [address] Care Team Providers Care Director Of Financial Planning Name Role Phone Corine Coulter Primary Care Provider [phone] Rheumatology Status:Enrolled (Active) Start date:06/24/2021 Enrollment date:06/24/2021 Current support & services provided:Clinical Management, Refill Management Linked medications:adalimumab (Active) Linked problems:Ankylosing spondylitis of multiple sites in spine ([facility]) (Primary, Active), Seronegative spondylitis ([facility]) (Active), Spondyloarthropathy (Active) Case Team Name Relationship Phone [facility] (Responsible Staff) Continued Care and Services Coordination
--- OUTSIDE RECORDS SUMMARY | 2024-03-14 18:02 | XMS_ITS | Encounter Summary ---
Author Organization [facility] Address [address] [place] [address] Care Team Providers Care Supervisor Forming Department Name Role Phone Unknown, Provider Primary Care Provider [phone] None, Provider Primary Care Provider Serafin Zapata MD Primary Care Provider [phone] Phoebe Iyer Primary Care Provider [phone] Rebeca Miller APRN Primary Care Provider [phone] Corine Coulter Primary Care Provider [phone] Encounter Details Date Type Department Care Team (Late st Contact Info) Description 03/23/2006 Before PRISM Converted Visit (Maple) [facility] - Maple conversion [address] [place] [address] Amador Heart MD [facility] [address] [place] [address] Social History Tobacco Use Types Packs/Day Years [...] EDT Telemedicine [facility] Rheumatology [address] [place] [address] Venecia Vega MD [address] [facility] [address] [place] [address] documented as of this encounter Procedures Procedure Name Priority Date/Time Associated Diagnosis Comments [facility] ECHOCARDIOGRAM 03/23/2006 16:06 EDT documented in this encounter Results * [facility] ECHOCARDIOGRAM (03/23/2006 16:06 EDT) Anatomical Region Laterality Modality Other 03/23/2006 16:0 6 EDT Narrative 01/12/2009 1:46 EDT ECHO/ABNORMAL OUTSIDE U/S FINDING, Dr. Mancilla to do Please see separate Echocardiography report. Procedure Note Ana Rai MD - 01/12/2009 ECHO/ABNORMAL OUTSIDE U/S FINDING, Dr. Mancilla to do Please see separate Echocardiography report. Amador Heart MD [facility] ORDERABLE S documented in this encounter Visit Diagnoses Not on filedocumented in this encounter Care Teams Supervisor Forming Department Relationship Specialty Start Date End Date Unknown, Provider, PCP - General 07/31/13 04/01/15 None, Provider PCP - General 04/02/15 02/12/19 Serafin Saucedo MD [address] [place] [phone] PCP - General 02/13/19 04/25/20 Phoebe Iyer FNP [address] [place] [phone] PCP - General 07/09/20 11/20/21 Rebeca Miller APRN [address] [place] [phone] PCP - General Family Medicine - Primary Care 11/21/21 03/07/24 Corine Couletr [address] [phone] PCP - General Family Medicine - Primary Care 03/08/24 documented as of this encounter
--- OUTSIDE RECORDS SUMMARY | 2024-03-14 18:02 | XMS_ITS | Encounter Summary ---
Author Organization [facility] Address [address] [place] [address] Care Team Providers Care Piano Maker Name Role Phone Unknown, Provider Primary Care Provider [phone] Encounter Details Date Type Department Care Team (Latest Contact Info) Description 03/14/2014 14:43 EDT - 03/14/2014 23:59 EDT Hospital Encounter [address] [address] Unknown, ProviderMD Discharge Disposition: Home or Self Care Social History Tobacco Use Types Packs/Day Years Used Date Smoking Tobacco: Never Assessed Sex and Gender Information Value Date Recorded Sex Assigned at Not on file Gender Identity Female 07/04/2019 11:12 EST Sexual Orientation Not on file documented as of this encounter Discharge Disposition Disposition Code Departure Means Destination Home or Self [facility] documented in this encounter Plan of Treatment Upcoming Encounters Date Type Department Care Team (Late st Contact Info) Description 03/23/2024 11:15 EDT Telemedicine [facility] Rheumatology [address] [place] [address] Venecia Vega MD [address] [facility] [address] [place] [address] documented as of this encounter Visit Diagnoses Not on filedocumented in this encounter Care Teams Piano Maker Relationship Specialty Start Date End Date Unknown, ProviderMD PCP - General 07/31/13 04/01/15 documented as of this encounter
--- OUTSIDE RECORDS SUMMARY | 2024-03-14 18:02 | XMS_ITS ---
Author Organization Unknown Address [address] [place] [phone] Phone Care Team Providers Care Vocational Psychologist Name Role Phone FADI Alonzo MD Attending Nash CASE Primary Unavailable Social History Type Status Start Date End Date Code Code Syst em Smoking History Never smoker (Never Smoked) 767301123 SNOMED CT Sex Female Medications Medication Start Date End Date Route Frequency Dose Code Code System Medication Instructions Home Meds Cefpodoxime Proxetil 200MG Oral Tablet 03/08/2022 05/14/2022 ORAL TWICE A DAY 1 TABLET 240579 RxNorm TAKE 1 TABLET ORAL TWICE A DAY Pyridium 100MG Oral Tablet 03/08/2022 05/14/2022 ORAL THREE TIMES A DAY 1 TABLET 1176656 RxNorm TAKE 1 TABLET ORAL THREE TIMES A DAY Zofran 4MG Oral Tablet 09/03/2022 05/23/2023 ORAL EVERY 6 HOURS 1 TABLET 090898 RxNorm TAKE 1 TABLET ORAL EVERY 6 HOURS FOR Nausea Zithromax 250MG Oral Tablet 07/04/2023 Unknown ORAL DAILY 1 TABLET 228215 RxNorm TAKE 1 TABLET ORAL DAILY Assessment [...] Status Code Code System TMJ DISORDER active 13643307 SNOMED- CT GERD 03/08/2022 resolved 558132648 SNOMED-CT ARTHRITIS 03/08/2022 resolved 3250308 SNOMED-CT ANEMIA 03/08/2022 resolved 928586388 SNOMED-CT DILATATION AND CURETTAGE PLANNED 03/08/2022 resolved 514387770 SNOMED-CT Allergies and Adverse Reactions Allergy Substance Reaction Severity Start Date Concern Status Co de Code System No Known Allergies Active 212688111 SNO MED-CT Plan of Treatment MRI UPPER [...]
--- OUTSIDE RECORDS SUMMARY | 2024-03-14 18:02 | XMS_ITS | Encounter Summary ---
Author Organization [facility] Address [address] [place] [address] Care Team Providers Care Glass Cleaner Name Role Phone Unavailable Primary Care Provider Unavailabl e Encounter Details Date Type Department Care Team (Latest Contact Info) Description 07/21/2013 16:33 EST - 07/21/2013 23:59 EST Hospital Encounter [address] [address] Unknown, MD Umair Discharge Disposition: Home or Self Care Social History Tobacco Use Types Packs/Day Years Used Date Smoking Tobacco: Never Assessed Sex and Gender Information Value Date Recorded Sex Assigned at Not on file Gender Identity Female 07/04/2019 11:12 EST Sexual Orientation Not on file documented as of this encounter Discharge Disposition Disposition Code Departure Means Destination Home or Self Retirement documented in this encounter Plan of Treatment Upcoming Encounters Date Type Department Care Team (Late st Contact Info) Description 03/23/2024 11:15 EDT Telemedicine [facility] Rheumatology [address] [place] [address] Venecia Vega MD [address] [place] [address] [address] [place] [phone] documented as of this encounter Visit Diagnoses Not on filedocumented in this encounter
--- OUTSIDE RECORDS SUMMARY | 2024-03-14 18:02 | XMS_ITS | Encounter Summary ---
Author Organization [facility] Address [address] [place] [address] Care Team Providers Care Manager Field Sales Name Role Phone Unknown, Provider Primary Care Provider None, Provider Primary Care Provider Serafin Zapata MD Primary Care Provider Encounter Details Date Type Department Care Team (Late st Contact Info) Description 09/05/2009 Historical Results Only [facility] Lab - Main [place] [address] [place] [address] Andi Lewis MD Social History Tobacco Use [...] Contact Info) Description 03/23/2024 11:15 EDT Telemedicine [facility] Rheumatology [address] [place] [address] Venecia Vega MD [address] [place] [address] [address] [place] [phone] documented as of this encounter Procedures Procedure Name Priority Date/Time Associated Diagnosis Comments PAP TEST Routine 09/05/2009 documented in this encounter Results * PAP TEST (09/05/2009) 09/05/2009 09/09/2009 11: 52 EST Narrative [facility] - 09/11/2009 11:48 EST ----- ------- Name: DEVIKA SHABAZZ ? : [birth year] ?Age/Sex: 34/F ?Unit#: [id number] ? Loc: AGO ? Status: REG POV ?? Reg Date: 09/05/09 ? Pt.Phone Number: ? ----- ------- Specimen: [id number] ?STATUS: SOUT ?Spec Date:09/05/09 ? Physician Copies: ?Andi Lewis MD ? Tissues: ? Cervical/Endo Pap ?Serafin Saucedo MD CPT: 79918 ?? Units: ??1 ----- ------- ? CYTOLOGY DIAGNOSIS SPECIMEN ADEQUACY: ?Satisfactory for evaluation. Transformation zone component ABSENT. GENERAL CATEGORIZATION: ?Negative for Intraepithelial Lesion or Malignancy DESCRIPTIVE DIAGNOSIS: ? Negative for Intraepithelial Lesion or Malignancy. RECOMMENDATIONS/COMMENTS: ?None. ----- ------- ORDER QUERIES: LMP: ? - IUD ? N Post ? N ??PREVIOUS ATYPICAL: N BCP/HRT? Y Rad Rx? Y IUD? N ??PAP PLUS HPV? N ??REFLEX TO HR-HPV IF ASCUS ?? REFLEX TO HPV 16/18 IF HPV POS/PAP NEG ?? HPV REGARDLESS?RFLX HPV IF LSIL ?? IF ASCUS DO HPV? N Signed Dana Prince CT(ASCP) 09/11/09 ? By the signature above, the attending physician certifies that he/she has personally conducted a gross and/or microscopic examination of the described specimens and rendered or confirmed the above diagnosis. Test Performed by [facility], [address] [place] [address] Respooler: Rhona Brown MD PHD ----- ------- Andi Lewis MD PATHOLOGY ORDERABLES Performing Organization Address City/State/[facility] Co de Phone Number [facility] documented in this encounter Visit Diagnoses Not on filedocumented in this encounter Care Teams Manager Field Sales Relationship Specialty Start Date End Date Unknown, Provider, PCP - General 07/31/13 04/01/15 None, Provider PCP - General 04/02/15 02/12/19 Serafin Saucedo MD [address] [place] [phone] PCP - General 02/13/19 04/25/20 documented as of this encounter
[2024-03-14 19:07] LABS: Abs Immature Grans 0.03 10^3/uL (0.0-0.06); Absolute Basophil Count 0.06 10^3/uL (0.0-0.2); Absolute Eosinophil Count 0.46 10^3/uL (0.0-0.7); Absolute Lymphocyte Count 3.42 10^3/uL (1.2-3.4); Absolute Monocyte Count 0.66 10^3/uL (0.1-0.8); Absolute Neutrophil Count 3.76 10^3/uL (1.2-6.7); Basophils % 0.7 %; Eosinophils % 5.5 %; HCT 44.1 % (36.0-46.0); HGB 14.4 g/dL (11.2-15.7); Immature Grans % 0.4 %; Lymphocytes % 40.8 %; MCH 30.6 pg (27.0-33.0); MCHC 32.7 % (32.0-36.0); MCV 94 fL (80-95); MPV 9.6 fL (8.0-11.0); Monocytes % 7.9 %; Neutrophils % 44.7 %; Platelet Count 414 10^3/uL (130-400); RBC 4.71 10^6/uL (3.93-5.22); RDW 13.1 % (11.7-14.6); WBC 8.39 10^3/uL (4.4-10.8)
[2024-03-14 19:17] LABS: ALT 57 U/L (14-59); AST 49 U/L (15-37); Albumin 3.8 g/dL (3.4-5.0); Alkaline Phosphatase 67 U/L (46-116); Anion Gap 9.7 mmol/L (3-11); BUN 6 mg/dL (7-18); Bilirubin, Total 0.47 mg/dL (0.2-1.0); C-Reactive Protein 0.83 mg/dL (<or=0.5); CO2 25.3 mmol/L (21.0-32.0); CREATININE 0.9 mg/dL (0.55-1.02); Calcium 8.9 mg/dL (8.5-10.1); Chloride 105 mmol/L (98-107); Estimated GFR 82.88 (mL/min/1.73m2); Glucose 96 mg/dL (74-106); Potassium 3.9 mmol/L (3.5-5.1); Sodium 140 mmol/L (136-145); Total Protein 7.6 g/dL (6.4-8.2)
== END 2024-03-14 17:49 | disposition home or self-care (01) ==
LOC: LBN 17:48
PROVIDERS: PCP Registered Nurse; Visit Provider Internal Medicine Rheumatology
DX: M45.8 Ankylosing spondylitis sacral and sacrococcygeal region (principal); M45.5 Ankylosing spondylitis of thoracolumbar region
CPT/HCPCS: 80053; 85025; 86140

== ENCOUNTER 2024-05-25 12:32 | Outpatient (REF) | payer MEDICAID, SELFPAY ==
--- NOTE | 2024-05-25 09:00 | PAPFT_PTH ---
PATIENT: Arabella Ojeda LOC: [facility]#:[id number] AGE/SX: 38/F ROOM: RE05/25/[address]: JAXON: 1985 BED: DIS: 05/25/2024 SPEC #: [id number] RECD: 05/25/24 17:59 STATUS: CRISTI ERVIN #: [id number] TAYLOR: 05/25/24 09:[address]: Corine Coulter DEPT: [facility] Cytology RECD BY: Tatiana Bah ENTERED: 05/25/24 18:00 SP TYPE: PAPFT OTHR DR: Vero Bellamy Tissues: 1 - CX/ENDOCX FOR PAP SMEARS Procedures: PAP THIN PREP/[facility] Screening HPV DNA PROBE Comments: [id number] (HPV 16 & 18/45)
--- OUTSIDE RECORDS SUMMARY | 2024-05-25 12:36 | XMS_ITS ---
Author Organization Unknown Address [address] [place] [phone] Phone Care Team Providers Care Block Out Machine Operator Name Role Phone SIGIFREDO Wesley Attending Unavailable ANABEL ANTONIO Primary Unavailable Results [facility] - Reinaldo ect Date/Time: 07/07/2021 22:56 [facility] ID: [id number] [address] [place] [address], [id number] LOINC: 58240-3 Test Value Unit Reference Range Code Code System Flag Tier- INPATIENT/ED SARS COV2 RNA: NEGATIVE REFERENCE RAN GE: NEGAT 00080-8 LOINC Social History Type Status Start Date End Date Code Code Syst em Smoking History Never smoker (Never Smoked) 090069598 SNOMED CT Sex Female Medications Medication Start Date End Date Route Frequency Dose Code Code System Medication Instructions Home Meds Cefpodoxime Proxetil 200MG Oral Tablet 03/08/2022 05/14/2022 ORAL TWICE A DAY 1 TABLET 278212 RxNorm TAKE 1 TABLET ORAL TWICE A DAY Pyridium 100MG Oral Tablet 03/08/2022 05/14/2022 ORAL THREE TIMES A DAY 1 TABLET 2142074 RxNorm TAKE 1 TABLET ORAL THREE TIMES A DAY Zofran 4MG Oral Tablet 09/03/2022 05/23/2023 ORAL EVERY 6 HOURS 1 TABLET 464553 RxNorm TAKE 1 TABLET ORAL EVERY 6 HOURS FOR Nausea Zithromax 250MG Oral Tablet 07/04/2023 Unknown ORAL DAILY 1 TABLET 690039 RxNorm TAKE 1 TABLET ORAL DAILY Assessment [...] Status Code Code System TMJ DISORDER active 12114507 SNOMED- CT GERD 03/08/2022 resolved 392167915 SNOMED-CT ARTHRITIS 03/08/2022 resolved 9525598 SNOMED-CT ANEMIA 03/08/2022 resolved 498207923 SNOMED-CT DILATATION AND CURETTAGE PLANNED 03/08/2022 resolved 942453398 SNOMED-CT Allergies and Adverse Reactions Allergy Substance Reaction Severity Start Date Concern Status Co de Code System No Known Allergies Active 776015148 SNO MED-CT Plan of Treatment MRI UPPER EXT JOINT W/O CONTRAST 2023 MRI LOWER EXT JOINT W/O CONTRAST 2022 US ABDOMEN LIMITED 1 ORGAN 09/03/2022 MRI TMJ W/O CONTRAST 06/04/2022 US ABDOMEN LIMITED 1 ORGAN 08/26/2021 Encounters Encounter Diagnosis Start Date Code Code Sys tem Exposure to SARS-CoV-2 07/07/2021 663645304 SNOME D-CT Personal Care Team Section Performer Name Performer Role Active Date Inactive Da te
--- OUTSIDE RECORDS SUMMARY | 2024-05-25 12:36 | XMS_ITS ---
Author Organization Unknown Address [address] [place] [address] [phone] Phone Care Team Providers Care Activity Director Name Role Phone JUAN CARLOS ROSARIO Attending [...] D Thursday, August 26, 2021 9:04:57 AM [phone] Electronically Reviewed and Signed By: JULIO CÉSAR HILTON MD 08/27/21 07:29 Copy for: 185 HEALTH INFORMATION MGMT Social History Type Status Start Date End Date Code Code Syst em Smoking History Never smoker (Never Smoked) 100973268 SNOMED CT Sex Female Medications Medication Start Date End Date Route Frequency Dose Code Code System Medication Instructions Home Meds Cefpodoxime Proxetil 200MG Oral Tablet 03/08/2022 05/14/2022 ORAL TWICE A DAY 1 TABLET 194174 RxNorm TAKE 1 TABLET ORAL TWICE A DAY Pyridium 100MG Oral Tablet 03/08/2022 05/14/2022 ORAL THREE TIMES A DAY 1 TABLET 3432774 RxNorm TAKE 1 TABLET ORAL THREE TIMES A DAY Zofran 4MG Oral Tablet 09/03/2022 05/23/2023 ORAL EVERY 6 HOURS 1 TABLET 509688 RxNorm TAKE 1 TABLET ORAL EVERY 6 HOURS FOR Nausea Zithromax 250MG Oral Tablet 07/04/2023 Unknown ORAL DAILY 1 TABLET 794902 RxNorm TAKE 1 TABLET ORAL DAILY Assessment [...] Status Code Code System TMJ DISORDER active 53885642 SNOMED- CT GERD 03/08/2022 resolved 298223743 SNOMED-CT ARTHRITIS 03/08/2022 resolved 8362345 SNOMED-CT ANEMIA 03/08/2022 resolved 123779523 SNOMED-CT DILATATION AND CURETTAGE PLANNED 03/08/2022 resolved 933812328 SNOMED-CT Allergies and Adverse Reactions Allergy Substance Reaction Severity Start Date Concern Status Co de Code System No Known Allergies Active 022574612 SNO MED-CT Plan of Treatment MRI UPPER [...]
--- OUTSIDE RECORDS SUMMARY | 2024-05-25 12:37 | XMS_ITS ---
Author Organization Unknown Address [address] [place] [address] [phone] Phone Care Team Providers Care Change Release Manager Name Role Phone ANNALISE BARRAZA Registered Nurse Unavailable LEANNA Vazquez Attending Unavailable ANABEL ANTONIO Primary Unavailable UNLISTED PROVIDER - REQUESTED Xhandoff Un available Social History Type Status Start Date End Date Code Code Syst em Smoking History Never smoker (Never Smoked) 753503907 SNOMED CT Sex Female Vital Signs Vital Sign Value Unit [place] Value [place] Unit Date/Time Recent/Initial? Code Code System Body Mass Index 40.35 kg/m2 05/14/2022 13:11 Initial 38991 -5 LOINC Systolic Blood Pressure 163 mm[Hg] [...] Saturation 94 % 2021 15:30 Most Recent 42720 -5 LOINC O2 Saturation 100 % 2021 13:11 Initial 22681 -5 LOINC Pulse 68.0 /min 05/14/2022 15:30 [...] 113.40 kg 250.00 lbs 05/14/2022 13:11 Initial 13127 -7 [facility] Medications Medication Start Date End Date Route Frequency Dose Code Code System Medication Instructions Home Meds Cefpodoxime Proxetil 200MG Oral Tablet 03/08/2022 05/14/2022 ORAL TWICE A DAY 1 TABLET 477255 RxNorm TAKE 1 TABLET ORAL TWICE A DAY Pyridium 100MG Oral Tablet 03/08/2022 05/14/2022 ORAL THREE TIMES A DAY 1 TABLET 6564525 RxNorm TAKE 1 TABLET ORAL THREE TIMES A DAY Zofran 4MG Oral Tablet 09/03/2022 05/23/2023 ORAL EVERY 6 HOURS 1 TABLET 485421 RxNorm TAKE 1 TABLET ORAL EVERY 6 HOURS FOR Nausea Zithromax 250MG Oral Tablet 07/04/2023 Unknown ORAL DAILY 1 TABLET 666798 RxNorm TAKE 1 TABLET ORAL DAILY Assessment [...] Status Code Code System TMJ DISORDER active 23884817 SNOMED- CT GERD 03/08/2022 resolved 188604151 SNOMED-CT ARTHRITIS 03/08/2022 resolved 6340381 SNOMED-CT ANEMIA 03/08/2022 resolved 715677098 SNOMED-CT DILATATION AND CURETTAGE PLANNED 03/08/2022 resolved 062296100 SNOMED-CT Allergies and Adverse Reactions Allergy Substance Reaction Severity Start Date Concern Status Co de Code System No Known Allergies Active 831426878 SNO MED-CT Plan of Treatment MRI UPPER [...]
--- OUTSIDE RECORDS SUMMARY | 2024-05-25 12:37 | XMS_ITS ---
Author Organization Unknown Address [address] [place] [address] [phone] Phone Care Team Providers Care Proofer Apprentice Name Role Phone TABATHA CHAPPELL Registered Nurse Unavailable RUBENS Wesley Attending Unavailable ANABEL ANTONIO Primary Unavailable UNLISTED PROVIDER - REQUESTED Xhandoff Un available Results TEST QUALITATIVE ( URINE) - Collect Date/Time: 03/08/2022 08:03 [facility] ID: [id number] [address] [place] [address], [address] LOINC: 2106-3 Test Value Unit Reference Range Code Code System Flag TEST NEGATIVE 2106-3 LOINC URINALYSIS WITH REFLEX CULT IF POSITIVE* - Collect Date/Time: 03/08/2022 08:03 [facility] ID: [id number] [address] [place] [address], [address] LOINC: 81714-9 Test Value Unit Reference Range Code Code System Flag COLLECTION MODE: CLEAN CATCH 11460-3 LOINC Color YELLOW yellow 5778-6 LOINC Appearance CLOUDY clear 5767-9 LOINC Glucose urine NEGATIVE negative mg/dl 54813-3 LOINC Bilirubin NEGATIVE negative 5770-3 LOINC Ketones NEGATIVE negative mg/dl 2514-8 LOINC Spec gravity <=1.005 1.003 - 1.030 5811-5 LOINC pH urine 6.0 5.0 - 7.0 2756-5 LOINC Protein NEGATIVE negative mg/dl 32336-2 LOINC Urobilinogen 0.2 <or= 1 EU/dl 50247-4 LOINC Nitrite. NEGATIVE negative 5802-4 LOINC Blood LARGE negative 5794-3 LOINC A Leukocytes. LARGE negative A MICROSCOPIC INDICATED WBCs. >100 0-5 / hpf 54316-9 LOINC RBCs 5-10 0-5 / hpf 81849-7 LOINC Epith cells 10-25 0-5 / hpf 22173-6 LOINC Cell types squamous Crystals none none Bacteria moderate none Mucus present none 8247-9 LOINC Casts none none /lpf 10102-5 LOINC Other 33124-0 LOINC Social History Type Status Start Date End Date Code Code Syst em Smoking History Never smoker (Never Smoked) 847669720 SNOMED CT Sex Female Vital Signs Vital Sign Value Unit [place] Value [place] Unit Date/Time Recent/Initial? Code Code System Body Mass Index 40.35 kg/m2 03/08/2022 08:13 Initial 53841 -5 INC Systolic Blood Pressure 125 mm[Hg] 03/08/2022 08:13 Initial 8480- 6 LOINC Diastolic Blood Pressure 95 mm[Hg] 03/08/2022 08:13 Initial 8462- 4 [facility] Body Surface Area 2.30 m2 03/08/2022 08:13 Initial 3140- 1 INC Height 167.640 0 cm 66.00 in 03/08/2022 08:13 Initial 8302- 2 INC O2 Saturation 99 % 2021 08:13 Initial 00332 -5 INC Pulse 89.0 /min 03/08/2022 08:13 Initial 8867- 4 INC Respiration 16 /min 03/08/20 22 08:13 Initial 9279- 1 INC Temperature 36.2 Rose 97.2 F 03/08/20 22 08:13 Initial 8310- 5 INC Weight 113.40 kg 250.00 lbs 03/08/2022 08:13 Initial 46691 -7 [facility] Medications Medication Start Date End Date Route Frequency Dose Code Code System Medication Instructions Home Meds Cefpodoxime Proxetil 200MG Oral Tablet 03/08/2022 05/14/2022 ORAL TWICE A DAY 1 TABLET 528390 RxNorm TAKE 1 TABLET ORAL TWICE A DAY Pyridium 100MG Oral Tablet 03/08/2022 05/14/2022 ORAL THREE TIMES A DAY 1 TABLET 1312205 RxNorm TAKE 1 TABLET ORAL THREE TIMES A DAY Zofran 4MG Oral Tablet 09/03/2022 05/23/2023 ORAL EVERY 6 HOURS 1 TABLET 819273 RxNorm TAKE 1 TABLET ORAL EVERY 6 HOURS FOR Nausea Zithromax 250MG Oral Tablet 07/04/2023 Unknown ORAL DAILY 1 TABLET 692748 RxNorm TAKE 1 TABLET ORAL DAILY Assessment [...] Олег m Ligation of fallopian tube completed 77799627 SNOMEDCT Problems Problem Start Date Resolved Date Status Code Code System TMJ DISORDER active 06256355 SNOMED- CT GERD 03/08/2022 resolved 815000635 SNOMED-CT ARTHRITIS 03/08/2022 resolved 9252172 SNOMED-CT ANEMIA 03/08/2022 resolved 751178119 SNOMED-CT DILATATION AND CURETTAGE PLANNED 03/08/2022 resolved 160843098 SNOMED-CT Allergies and Adverse Reactions Allergy Substance Reaction Severity Start Date Concern Status Co de Code System No Known Allergies Active 365976583 SNO MED-CT Plan of Treatment MRI UPPER [...]
--- OUTSIDE RECORDS SUMMARY | 2024-05-25 12:38 | XMS_ITS ---
Author Organization Unknown Address [address] [place] [address] [phone] Phone Care Team Providers Care Hospice Volunteer Coordinator Name Role Phone MAXIME DE LA FUENTE Registered Nurse Unavailable KEMAR Hernández Attending Unavailable ANABEL ANTONIO Primary Unavailable UNLISTED PROVIDER - REQUESTED Xhandoff Un available Results LIPASE* NEW - Collect Date/T rocky: 09/03/2022 06:04 ID: [id number] [address] [place] [address], [id number] LOINC: 3040-3 Test Value Unit Reference Range Code Code System Flag LIPASE. 31 U/L L=16 H=77 CBC W/ DIFFERENTIAL* - Colle ct Date/Time: 09/03/2022 06:04 ID: [id number] [address] [place] [address], [address] LOINC: 43069-3 Test Value Unit Reference Range Code Code System Flag WBC 11.62 th/cmm L=5.00 H=10.00 6690-2 LOINC H NEUT % 58.7 % L=40.0 H=80.0 LYMPH % 27.5 % L=10.0 H=50.0 MONO % 8.3 % L=2.0 H=12.0 18051-1 LOINC EOS % 4.4 % L=0.0 H=8.0 BASO % 0.8 % L=0.0 H=3.0 IG % 0.3 % L=0.0 H=1.1 8274-8 LOINC NRBC % 0.0 % L=0.0 H=0.0 59363-2 LOINC NEUT abs count 6.8 th/cmm L=1.6 H=8.4 751-8 LOINC LYMPH abs count 3.2 th/cmm L=1.5 H=4.0 731-0 LOINC MONO abs count 1.0 th/cmm L=0.2 H=1.0 742-7 LOINC EOS abs count 0.5 th/cmm L=0.0 H=0.5 711-2 LOINC BASO abs count 0.1 th/cmm L=0.0 H=0.2 704-7 LOINC IG abs count 0.0 th/cmm L=0.0 H=0.1 53842-3 LOINC NRBC abs count 0.0 mil/cmm L=0.0 H=0.0 30635-3 LOINC RBC 4.72 mil/cmm L=3.90 H=5.40 789-8 [...] L (CMP) - Collect Date/Time: 09/03/2022 06:04 ID: [id number] [address] [place], [place], [address] LOINC: 80953-0 Test Value Unit Reference Range Code Code [...] H=34 2028-9 LOINC ANION GAP 6.4 mmol/L 32040-1 LOINC CALCIUM SERUM 8.8 mg/dL L=8.2 H=10.2 76674-8 LOINC BILIRUBIN TOTAL 0.6 mg/dL L=0.0 H=1.3 1975-2 LOINC ALK. PHOS. 76 U/L L=46 H=116 6768-6 LOINC SGOT (AST) 32 U/L L=15 H=37 1920-8 LOINC SGPT (ALT) 44 U/L L=12 H=78 1742-6 LOINC TOTAL PROTEIN 7.7 gm/dL L=6.0 H=8.0 2885-2 LOINC ALBUMIN 3.7 gm/dL L=3.4 H=5.0 1751-7 LOINC AGE 37 years eGFR (non-Afr.Amer.) 67 mL/min 66971-6 LOINC eGFR (Afr-Qatari) 81 mL/min 31391-9 [facility] - Collect Date/Time: 09/03/2022 06:04 ID: [id number] [address] [place] [address], [address] LOINC: 2106-3 Test Value Unit Reference Range Code Code System Flag TEST NEGATIVE 2105-3 LOINC URINALYSIS WITH REFLEX CULT IF POSITIVE* - Collect Date/Time: 09/03/2022 06:04 ID: [id number] [address] [place] [address], [address] LOINC: 80144-2 Test Value Unit Reference Range Code Code System Flag COLLECTION MODE: CLEAN CATCH 60238-4 LOINC Color STRAW yellow 5778-6 LOINC Appearance CLEAR clear 5767-9 LOINC Glucose urine NEGATIVE negative mg/dl 80953-9 LOINC Bilirubin SMALL negative 5770-3 LOINC A Ketones NEGATIVE negative mg/dl 2514-8 LOINC Spec gravity 1.025 1.003 - 1.030 5811-5 LOINC pH urine 6.0 5.0 - 7.0 2756-5 LOINC Protein NEGATIVE negative mg/dl 16961-1 LOINC Urobilinogen 0.2 <or= 1 EU/dl 55635-1 LOINC Nitrite. NEGATIVE negative 5802-4 LOINC Blood NEGATIVE negative 5794-3 LOINC Leukocytes. NEGATIVE negative MICROSCOPIC NOT INDICAT Social History Type Status Start Date End Date Code Code Syst em Smoking History Never smoker (Never Smoked) 103256134 SNOMED CT Sex Female Vital Signs Vital Sign Value Unit Stone Value Stone Unit Date/Time Recent/Initial? Code Code System Body Mass Index 43.58 kg/m2 09/03/2022 06:01 Initial 63434 -5 LOINC Systolic Blood Pressure 119 mm[Hg] [...] Saturation 99 % 2022 06:35 Most Recent 81054 -5 LOINC O2 Saturation 99 % 2022 06:01 Initial 64610 -5 LOINC Pulse 74.0 /min 09/03/2022 06:35 Most Recent 8867- 4 LOINC Pulse 80.0 /min 09/03/2022 06:01 Initial 8867- 4 LOINC Respiration 14 /min 09/04/19 06:35 Most Recent 9279- 1 LOINC Respiration 14 /min 09/04/19 23 06:01 Initial 9279- 1 LOINC Temperature 36.3 Rose 97.3 F 09/04/19 23 06:01 Initial 8310- 5 LOINC Weight 122.47 kg 270.00 lbs 09/03/2022 06:01 Initial 13250 -7 [facility] Medications Medication Start Date End Date Route Frequency Dose Code Code System Medication Instructions Home Meds Zofran 4MG Oral Tablet 09/03/2022 05/23/2023 ORAL EVERY 6 HOURS 1 TABLET 934410 RxNorm TAKE 1 TABLET ORAL EVERY 6 HOURS FOR Nausea Zithromax 250MG Oral Tablet 07/04/2023 Unknown ORAL DAILY 1 TABLET 833958 RxNorm TAKE 1 TABLET ORAL DAILY Assessment [...] Status Code Code System TMJ DISORDER active 29104346 SNOMED- CT GERD 03/08/2022 resolved 644830258 SNOMED-CT ARTHRITIS 03/08/2022 resolved 8977572 SNOMED-CT ANEMIA 03/08/2022 resolved 853553516 SNOMED-CT DILATATION AND CURETTAGE PLANNED 03/08/2022 resolved 175153365 SNOMED-CT Allergies and Adverse Reactions Allergy Substance Reaction Severity Start Date Concern Status Co de Code System No Known Allergies Active 665162791 SNO MED-CT Plan of Treatment MRI UPPER [...]
--- OUTSIDE RECORDS SUMMARY | 2024-05-25 12:38 | XMS_ITS ---
Author Organization Unknown Address [address] [place] [address] [phone] Phone Care Team Providers Care Drop Pit Worker Name Role Phone GRIS ORTIZ Registered Nurse Yang Murphy Attending Unavailable ANABEL ANTONIO Primary Unavailable UNLISTED PROVIDER - REQUESTED Xhandoff Un available Results XR ANKLE LT 3V* - Completed: 11/24/2022 20:52 LOINC: [place], [place] [address] PACS MANAGER INSIDE REPORT Patient Name: DEVIKA BEJARANO MRN: Sex: : Age: [id number] F 1985 37 Account: Accession: Admit: StayType: [id number] 11/24/2022 E/R Ordered: Order ID: Submitted: Ordering Provider: 11/24/2022 20:39 [id number] ATUL SOLOMON Completed: Technologist: Resulted: 11/24/2022 20:52 [...] em Smoking History Never smoker (Never Smoked) 238048348 SNOMED CT Sex Female Vital Signs Vital Sign Value Unit [place] Value [place] Unit Date/Time Recent/Initial? Code Code System Body Mass Index 41.65 kg/m2 11/24/2022 20:35 Initial 95448 -5 LOINC Systolic Blood Pressure 131 mm[Hg] [...] Saturation 97 % 2022 21:44 Most Recent 43099 -5 LOINC O2 Saturation 100 % 2022 20:35 Initial 44265 -5 LOINC Pulse 91.0 /min 11/24/2022 21:44 [...] 113.40 kg 250.00 lbs 11/24/2022 20:35 Initial 17203 -7 LOINC Medications Medication Start Date End Date Route Frequency Dose Code Code System Medication Instructions Home Meds Zofran 4MG Oral Tablet 09/03/2022 05/23/2023 ORAL EVERY 6 HOURS 1 TABLET 509493 RxNorm TAKE 1 TABLET ORAL EVERY 6 HOURS FOR Nausea Zithromax 250MG Oral Tablet 07/04/2023 Unknown ORAL DAILY 1 TABLET 870053 RxNorm TAKE 1 TABLET ORAL DAILY Assessment [...] Status Code Code System TMJ DISORDER active 72606894 SNOMED- CT GERD 03/08/2022 resolved 245473251 SNOMED-CT ARTHRITIS 03/08/2022 resolved 1889349 SNOMED-CT ANEMIA 03/08/2022 resolved 164614422 SNOMED-CT DILATATION AND CURETTAGE PLANNED 03/08/2022 resolved 601923777 SNOMED-CT Allergies and Adverse Reactions Allergy Substance Reaction Severity Start Date Concern Status Co de Code System No Known Allergies Active 071888981 SNO MED-CT Plan of Treatment MRI UPPER EXT JOINT W/O CONTRAST 2023 MRI LOWER EXT JOINT W/O CONTRAST 2022 US ABDOMEN LIMITED 1 ORGAN 09/03/2022 MRI TMJ W/O CONTRAST 06/04/2022 US ABDOMEN LIMITED 1 ORGAN 08/26/2021 Encounters Encounter Diagnosis Start Date Code Code Sys tem 11/24/2022 [id number] SNOMED-CT Personal Care Team Section Performer Name Performer Role Active Date Inactive Edward vanegas
--- OUTSIDE RECORDS SUMMARY | 2024-05-25 12:38 | XMS_ITS ---
Author Organization Unknown Address [address] [place] [address] [phone] Phone Care Team Providers Care Hoeing Row Boss Name Role Phone PISC MICHELLE Alonzo Attending Unavailable ANABEL ANTONIO Primary Unavailable Results US ABD LIMITED ONE ORGAN - C ompleted: 09/03/2022 10:15 LOINC: [facility] [place], [place] [address] PACS POLICE ARTIST REPORT Patient Name: DEVIKA BEJARANO MRN: Sex: : Age: [id number] F 1985 37 Account: Accession: Admit: StayType: [id number] 09/03/2022 O/P Ordered: Order ID: Submitted: Ordering Provider: 09/03/2022 07:38 [id number] MICHELLE TORREZ Completed: Technologist: Resulted: 09/03/2022 10:15 [...] em Smoking History Never smoker (Never Smoked) 805505612 SNOMED CT Sex Female Medications Medication Start Date End Date Route Frequency Dose Code Code System Medication Instructions Home Meds Zofran 4MG Oral Tablet 09/03/2022 05/23/2023 ORAL EVERY 6 HOURS 1 TABLET 327825 RxNorm TAKE 1 TABLET ORAL EVERY 6 HOURS FOR Nausea Zithromax 250MG Oral Tablet 07/04/2023 Unknown ORAL DAILY 1 TABLET 290235 RxNorm TAKE 1 TABLET ORAL DAILY Assessment [...] Status Code Code System TMJ DISORDER active 75911709 SNOMED- CT GERD 03/08/2022 resolved 691371565 SNOMED-CT ARTHRITIS 03/08/2022 resolved 8672548 SNOMED-CT ANEMIA 03/08/2022 resolved 209701826 SNOMED-CT DILATATION AND CURETTAGE PLANNED 03/08/2022 resolved 476149341 SNOMED-CT Allergies and Adverse Reactions Allergy Substance Reaction Severity Start Date Concern Status Co de Code System No Known Allergies Active 680637047 SNO MED-CT Plan of Treatment MRI UPPER EXT JOINT W/O CONTRAST 2023 MRI LOWER EXT JOINT W/O CONTRAST 2022 US ABDOMEN LIMITED 1 ORGAN 09/03/2022 MRI TMJ W/O CONTRAST 06/04/2022 US ABDOMEN LIMITED 1 ORGAN 08/26/2021 Encounters Encounter Diagnosis Start Date Code Code Sys tem Right upper quadrant pain 09/03/2022 224546912 SN OMED-CT Personal Care Team Section Performer Name Performer Role Active Date Inactive Da te
--- OUTSIDE RECORDS SUMMARY | 2024-05-25 12:38 | XMS_ITS ---
Author Organization Unknown Address [address] [place] [address] [phone] Phone Care Team Providers Care Customer Consultant Name Role Phone EDMUND ALVAREZ Primary Unavailable Results MR TEMPOROMANDIBULAR JOINTS WO CONTRAST - Completed: 06/04/2022 11:40 LOINC: [facility] [place], [place] [address] PACS BODY TRIMMER UPHOLSTERER REPORT Patient Name: DEVIKA BEJARANO MRN: Sex: : Age: [id number] F 1985 36 Account: Accession: Admit: StayType: [id number] 06/04/2022 O/P Ordered: Order ID: Submitted: Ordering Provider: 06/04/2022 11:38 [id number] [facility] LIZA SHAFFER Completed: Technologist: Resulted: [...] em Smoking History Never smoker (Never Smoked) 095193038 SNOMED CT Sex Female Medications Medication Start Date End Date Route Frequency Dose Code Code System Medication Instructions Home Meds Zofran 4MG Oral Tablet 09/03/2022 05/23/2023 ORAL EVERY 6 HOURS 1 TABLET 864688 RxNorm TAKE 1 TABLET ORAL EVERY 6 HOURS FOR Nausea Zithromax 250MG Oral Tablet 07/04/2023 Unknown ORAL DAILY 1 TABLET 840302 RxNorm TAKE 1 TABLET ORAL DAILY Assessment [...] Status Code Code System TMJ DISORDER active 94819494 SNOMED- CT GERD 03/08/2022 resolved 027036769 SNOMED-CT ARTHRITIS 03/08/2022 resolved 8969164 SNOMED-CT ANEMIA 03/08/2022 resolved 102033867 SNOMED-CT DILATATION AND CURETTAGE PLANNED 03/08/2022 resolved 439929270 SNOMED-CT Allergies and Adverse Reactions Allergy Substance Reaction Severity Start Date Concern Status Co de Code System No Known Allergies Active 208448421 SNO MED-CT Plan of Treatment MRI UPPER [...]
--- OUTSIDE RECORDS SUMMARY | 2024-05-25 12:39 | XMS_ITS ---
Author Organization Unknown Address [address] [place] [address] [phone] Phone Care Team Providers Care Firearms Specialist Name Role Phone SANTIAGO Lancaster Attending Unavailable ANABEL ANTONIO Primary Unavailable Social History Type Status Start Date End Date Code Code Syst em Smoking History Never smoker (Never Smoked) 979025787 SNOMED CT Sex Female Medications Medication Start Date End Date Route Frequency Dose Code Code System Medication Instructions Home Meds Zofran 4MG Oral Tablet 09/03/2022 05/23/2023 ORAL EVERY 6 HOURS 1 TABLET 098308 RxNorm TAKE 1 TABLET ORAL EVERY 6 HOURS FOR Nausea Zithromax 250MG Oral Tablet 07/04/2023 Unknown ORAL DAILY 1 TABLET 591330 RxNorm TAKE 1 TABLET ORAL DAILY Assessment [...] Status Code Code System TMJ DISORDER active 73167588 SNOMED- CT GERD 03/08/2022 resolved 170014191 SNOMED-CT ARTHRITIS 03/08/2022 resolved 7093154 SNOMED-CT ANEMIA 03/08/2022 resolved 383542165 SNOMED-CT DILATATION AND CURETTAGE PLANNED 03/08/2022 resolved 374666900 SNOMED-CT Allergies and Adverse Reactions Allergy Substance Reaction Severity Start Date Concern Status Co de Code System No Known Allergies Active 900011107 SNO MED-CT Plan of Treatment MRI UPPER EXT JOINT W/O CONTRAST 2023 MRI LOWER EXT JOINT W/O CONTRAST 2022 US ABDOMEN LIMITED 1 ORGAN 09/03/2022 MRI TMJ W/O CONTRAST 06/04/2022 US ABDOMEN LIMITED 1 ORGAN 08/26/2021 Encounters Encounter Diagnosis Start Date Code Code Sys tem Arthralgia of the ankle and/or foot 04/05/2023 08915 4009 SNOMED-CT Personal Care Team Section Performer Name Performer Role Active Date Inactive Da te
--- OUTSIDE RECORDS SUMMARY | 2024-05-25 12:39 | XMS_ITS ---
Author Organization Unknown Address [address] [place] [address] [phone] Phone Care Team Providers Care Storage Battery Inspector Name Role Phone SANTIAGO Lancaster Attending Unavailable ANABEL ANTONIO Primary Unavailable Results MR LOWER EXT ANY JOINT LT WO CONTRAST - Completed: 04/02/2023 13:44 LOINC: [No content] Social History Type Status Start Date End Date Code Code Syst em Smoking History Never smoker (Never Smoked) 399232110 SNOMED CT Sex Female Medications Medication Start Date End Date Route Frequency Dose Code Code System Medication Instructions Home Meds Zofran 4MG Oral Tablet 09/03/2022 05/23/2023 ORAL EVERY 6 HOURS 1 TABLET 562173 RxNorm TAKE 1 TABLET ORAL EVERY 6 HOURS FOR Nausea Zithromax 250MG Oral Tablet 07/04/2023 Unknown ORAL DAILY 1 TABLET 021595 RxNorm TAKE 1 TABLET ORAL DAILY Assessment [...] Status Code Code System TMJ DISORDER active 39637004 SNOMED- CT GERD 03/08/2022 resolved 670565696 SNOMED-CT ARTHRITIS 03/08/2022 resolved 0997988 SNOMED-CT ANEMIA 03/08/2022 resolved 176082700 SNOMED-CT DILATATION AND CURETTAGE PLANNED 03/08/2022 resolved 975776172 SNOMED-CT Allergies and Adverse Reactions Allergy Substance Reaction Severity Start Date Concern Status Co de Code System No Known Allergies Active 255438937 SNO MED-CT Plan of Treatment MRI UPPER EXT JOINT W/O CONTRAST 2023 MRI LOWER EXT JOINT W/O CONTRAST 2022 US ABDOMEN LIMITED 1 ORGAN 09/03/2022 MRI TMJ W/O CONTRAST 06/04/2022 US ABDOMEN LIMITED 1 ORGAN 08/26/2021 Encounters Encounter Diagnosis Start Date Code Code Sys tem 04/02/2023 [id number] SNOMED-CT Personal Care Team Section Performer Name Performer Role Active Date Inactive Da te
--- OUTSIDE RECORDS SUMMARY | 2024-05-25 12:39 | XMS_ITS ---
Author Organization Unknown Address [address] [place] [address] [phone] Phone Care Team Providers Care Personal Development Educator Name Role Phone FELIX Santamaria Attending Unavailable ANABEL ANTONIO Primary Unavailable Results XR KNEE 4V RT* - Completed: 12/17/2022 17:06 LOINC: [place], [place] [address] PACS HOUSE WIRER REPORT Patient Name: DEVIKA BEJARANO MRN: Sex: : Age: [id number] F 1985 37 Account: Accession: Admit: StayType: [id number] 12/17/2022 O/P Ordered: Order ID: Submitted: Ordering Provider: 12/17/2022 11:55 [id number] GLEN DRAPER Completed: Technologist: Resulted: 12/17/2022 17:06 [...] em Smoking History Never smoker (Never Smoked) 565945149 SNOMED CT Sex Female Medications Medication Start Date End Date Route Frequency Dose Code Code System Medication Instructions Home Meds Zofran 4MG Oral Tablet 09/03/2022 05/23/2023 ORAL EVERY 6 HOURS 1 TABLET 998864 RxNorm TAKE 1 TABLET ORAL EVERY 6 HOURS FOR Nausea Zithromax 250MG Oral Tablet 07/04/2023 Unknown ORAL DAILY 1 TABLET 254065 RxNorm TAKE 1 TABLET ORAL DAILY Assessment [...] Status Code Code System TMJ DISORDER active 23837363 SNOMED- CT GERD 03/08/2022 resolved 533195263 SNOMED-CT ARTHRITIS 03/08/2022 resolved 0177543 SNOMED-CT ANEMIA 03/08/2022 resolved 344837368 SNOMED-CT DILATATION AND CURETTAGE PLANNED 03/08/2022 resolved 516275871 SNOMED-CT Allergies and Adverse Reactions Allergy Substance Reaction Severity Start Date Concern Status Co de Code System No Known Allergies Active 703224618 SNO MED-CT Plan of Treatment MRI UPPER [...]
--- OUTSIDE RECORDS SUMMARY | 2024-05-25 12:39 | XMS_ITS ---
Author Organization Unknown Address [address] [place] [address] [phone] Phone Care Team Providers Care Contract Technical Writer Name Role Phone SANTIAGO Lancaster Attending Unavailable ANABEL ANTONIO Primary Unavailable Social History Type Status Start Date End Date Code Code Syst em Smoking History Never smoker (Never Smoked) 506055510 SNOMED CT Sex Female Medications Medication Start Date End Date Route Frequency Dose Code Code System Medication Instructions Home Meds Zofran 4MG Oral Tablet 09/03/2022 05/23/2023 ORAL EVERY 6 HOURS 1 TABLET 751181 RxNorm TAKE 1 TABLET ORAL EVERY 6 HOURS FOR Nausea Zithromax 250MG Oral Tablet 07/04/2023 Unknown ORAL DAILY 1 TABLET 512138 RxNorm TAKE 1 TABLET ORAL DAILY Assessment [...] Status Code Code System TMJ DISORDER active 84733500 SNOMED- CT GERD 03/08/2022 resolved 412305389 SNOMED-CT ARTHRITIS 03/08/2022 resolved 1517682 SNOMED-CT ANEMIA 03/08/2022 resolved 840952766 SNOMED-CT DILATATION AND CURETTAGE PLANNED 03/08/2022 resolved 624812884 SNOMED-CT Allergies and Adverse Reactions Allergy Substance Reaction Severity Start Date Concern Status Co de Code System No Known Allergies Active 286902771 SNO MED-CT Plan of Treatment MRI UPPER EXT JOINT W/O CONTRAST 2023 MRI LOWER EXT JOINT W/O CONTRAST 2022 US ABDOMEN LIMITED 1 ORGAN 09/03/2022 MRI TMJ W/O CONTRAST 06/04/2022 US ABDOMEN LIMITED 1 ORGAN 08/26/2021 Encounters Encounter Diagnosis Start Date Code Code Sys tem Closed fracture of great toe 11/27/2022 007625268 SNOMED-CT Personal Care Team Section Performer Name Performer Role Active Date Inactive Da te
--- OUTSIDE RECORDS SUMMARY | 2024-05-25 12:40 | XMS_ITS ---
Author Organization Unknown Address [address] [place] [address] [phone] Phone Care Team Providers Care Dormitory Supervisor Name Role Phone MELLISSA BELL Registered Nurse Unavailable QUINTON Vazquez Attending Unavailable ANABEL ANTONIO Primary Unavailable UNLISTED PROVIDER - REQUESTED Xhandoff Un available Social History Type Status Start Date End Date Code Code Syst em Smoking History Never smoker (Never Smoked) 867099058 SNOMED CT Sex Female Vital Signs Vital Sign Value Unit [place] Value [place] Unit Date/Time Recent/Initial? Code Code System Body Mass Index 42.77 kg/m2 07/04/2023 07:34 Initial 71674 -5 [facility] Systolic Blood Pressure 139 mm[Hg] 07/04/2023 07:34 Initial 8480- 6 LOINC Diastolic Blood Pressure 69 mm[Hg] 07/04/2023 07:34 Initial 8462- 4 [facility] Body Surface Area 2.37 m2 07/04/2023 07:34 Initial 3140- 1 LOINC Height 167.640 0 cm 66.00 in 07/04/2023 07:34 Initial 8302- 2 LOINC O2 Saturation 97 % 2022 07:34 Initial 10889 -5 [facility] Pulse 89.0 /min 07/04/2023 07:34 Initial 8867- 4 LOINC Respiration 16 /min 07/04/20 07:34 Initial 9279- 1 LOINC Temperature 36.3 Rose 97.3 F 07/04/20 07:34 Initial 8310- 5 LOINC Weight 120.20 kg 265.00 lbs 07/04/2023 07:34 Initial 33927 -7 [facility] Medications Medication Start Date End Date Route Frequency Dose Code Code System Medication Instructions Home Meds Zithromax 250MG Oral Tablet 07/04/2023 Unknown ORAL DAILY 1 TABLET 013623 RxNorm TAKE 1 T ABLET ORAL DAILY [...] Status Code Code System TMJ DISORDER active 51456690 SNOMED- CT GERD 03/08/2022 resolved 092572635 SNOMED-CT ARTHRITIS 03/08/2022 resolved 4547010 SNOMED-CT ANEMIA 03/08/2022 resolved 988129913 SNOMED-CT DILATATION AND CURETTAGE PLANNED 03/08/2022 resolved 295780587 SNOMED-CT Allergies and Adverse Reactions Allergy Substance Reaction Severity Start Date Concern Status Co de Code System No Known Allergies Active 855181416 SNO MED-CT Plan of Treatment MRI UPPER EXT JOINT W/O CONTRAST 2023 MRI LOWER EXT JOINT W/O CONTRAST 2022 US ABDOMEN LIMITED 1 ORGAN 09/03/2022 MRI TMJ W/O CONTRAST 06/04/2022 US ABDOMEN LIMITED 1 ORGAN 08/26/2021 Encounters Encounter Diagnosis Start Date Code Code Sys tem Bronchitis 07/04/2023 24037847 SNOMED-CT Personal Care Team Section Performer Name Performer Role Active Date Inactive Da romina
--- OUTSIDE RECORDS SUMMARY | 2024-05-25 12:40 | XMS_ITS ---
Author Organization Unknown Address [address] [place] [address] [phone] Phone Care Team Providers Care Senior Cost Estimator Name Role Phone LAMAR DOWELLESTELA Registered Nurse Unavailable LEANNA Vazquez Attending Unavailable EVITA Santamaria ER Unavailable ANABEL ANTONIO Primary Unavailable UNLISTED PROVIDER - REQUESTED Xhandoff Un available Results [facility] FLU RSV GENEXPE RT - Collect Date/Time: 05/23/2023 10:35 [facility] ID: [id number], [id number] LOINC: 99295-7 Test Value Unit Reference Range Code Code System Flag COVID NEGATIVE Normal: Negative 26598-6 LOINC INFLUENZA A DNA NEGATIVE Normal: Negative 42586-7 LOINC INFLUENZA B DNA NEGATIVE Normal: Negative 94517-4 LOINC RSV DNA NEGATIVE Normal: Negative 93326-5 LOINC XR CHEST 2V PA AND LATERAL - Completed: 05/23/2023 10:42 LOINC: [facility] RADIOLOGY [place], [place] [address] PACS MUSICAL INSTRUMENT MECHANIC REPORT Patient Name: DEVIKA BEJARANO MRN: Sex: : Age: [id number] F 1985 37 Account: Accession: Admit: StayType: [id number] 05/23/2023 E/R Ordered: Order ID: Submitted: Ordering Provider: 05/23/2023 10:30 [id number] SHAHRAM WYLIE Completed: Technologist: Resulted: 05/23/2023 10:42 [...] em Smoking History Never smoker (Never Smoked) 494727822 SNOMED CT Sex Female Vital Signs Vital Sign Value Unit [place] Value [place] Unit Date/Time Recent/Initial? Code Code System Body Mass Index 41.96 kg/m2 05/23/2023 10:15 Initial 31880 -5 [facility] Systolic Blood Pressure 125 mm[Hg] [...] Saturation 97 % 2022 12:03 Most Recent 47083 -5 LOINC O2 Saturation 98 % 2022 10:15 Initial 33619 -5 [facility] Pulse 76.0 /min 05/23/2023 12:03 [...] 117.93 kg 260.00 lbs 05/23/2023 10:15 Initial 55795 -7 LO[facility] Medications Medication Start Date End Date Route Frequency Dose Code Code System Medication Instructions Home Meds Zofran 4MG Oral Tablet 09/03/2022 05/23/2023 ORAL EVERY 6 HOURS 1 TABLET 000086 RxNorm TAKE 1 TABLET ORAL EVERY 6 HOURS FOR Nausea Zithromax 250MG Oral Tablet 07/04/2023 Unknown ORAL DAILY 1 TABLET 632368 RxNorm TAKE 1 TABLET ORAL DAILY Assessment [...] Status Code Code System TMJ DISORDER active 34072243 SNOMED- CT GERD 03/08/2022 resolved 551993300 SNOMED-CT ARTHRITIS 03/08/2022 resolved 8446455 SNOMED-CT ANEMIA 03/08/2022 resolved 688458074 SNOMED-CT DILATATION AND CURETTAGE PLANNED 03/08/2022 resolved 926283849 SNOMED-CT Allergies and Adverse Reactions Allergy Substance Reaction Severity Start Date Concern Status Co de Code System No Known Allergies Active 227924468 SNO MED-CT Plan of Treatment MRI UPPER EXT JOINT W/O CONTRAST 2023 MRI LOWER EXT JOINT W/O CONTRAST 2022 US ABDOMEN LIMITED 1 ORGAN 09/03/2022 MRI TMJ W/O CONTRAST 06/04/2022 US ABDOMEN LIMITED 1 ORGAN 08/26/2021 Encounters Encounter Diagnosis Start Date Code Code Sys tem Acute upper respiratory infection 05/23/2023 9067308 5 SNOMED-CT Personal Care Team Section Performer Name Performer Role Active Date Inactive Da te
--- OUTSIDE RECORDS SUMMARY | 2024-05-25 12:40 | XMS_ITS ---
Author Organization Unknown Address [address] [place] [address] [phone] Phone Care Team Providers Care Bankruptcy Processor Name Role Phone ROOMET ALLAN Attending Unavailable ANABEL ANTONIO Primary Unavailable Social History Type Status Start Date End Date Code Code Syst em Smoking History Never smoker (Never Smoked) 740553446 SNOMED CT Sex Female Medications Medication Start Date End Date Route Frequency Dose Code Code System Medication Instructions Home Meds Zithromax 250MG Oral Tablet 07/04/2023 Unknown ORAL DAILY 1 TABLET 687394 RxNorm TAKE 1 T ABLET ORAL DAILY [...] Nerve Conduction Studies 7-8 Studies 01/04/2024 completed 78667 CPT Needle EMG Ea Extremity w/Pa raspinl Area Limited 01/04/2024 completed 06136 CPT Problems Problem Start Date Resolved Date Status Code Code System TMJ DISORDER active 41121240 SNOMED- CT GERD 03/08/2022 resolved 654904598 SNOMED-CT ARTHRITIS 03/08/2022 resolved 2514464 SNOMED-CT ANEMIA 03/08/2022 resolved 719656084 SNOMED-CT DILATATION AND CURETTAGE PLANNED 03/08/2022 resolved 502676936 SNOMED-CT Allergies and Adverse Reactions Allergy Substance Reaction Severity Start Date Concern Status Co de Code System No Known Allergies Active 327209154 SNO MED-CT Plan of Treatment MRI UPPER [...]
--- OUTSIDE RECORDS SUMMARY | 2024-05-25 12:41 | XMS_ITS ---
Author Organization Unknown Address [address] [place] [address] [phone] Phone Care Team Providers Care Welder Fabricator Name Role Phone GRIS ORTIZ Registered Nurse Familia GARRISON Attending Unavailable QUINTON BOONE Unavailable ANABEL ANTONIO Primary Unavailable UNLISTED PROVIDER - REQUESTED Xhandoff Un available Results XR FOOT 3V RT* - Completed: 01/21/2024 14:53 LOINC: [facility] RADIOLOGY [place], [place] [address] RADIOLOGY PACS FIELD MERCHANDISER REPORT Patient Name: DEVIKA BEJARANO MRN: Sex: : Age: [id number] F 1985 38 Account: Accession: Admit: StayType: [id number] 01/21/2024 E Ordered: Order ID: Submitted: Ordering Provider: 01/21/2024 14:43 [id number] BLADIMIR SPRAGUE Completed: Technologist: Resulted: 01/21/2024 14:49 [...] who have questions please contact the health critical care specialist that requested your imaging first. Electronically signed by: Milton Zhang MD [facility] ([phone]), at 01/21/2024 3:02 PM Social History Type Status Start Date End Date Code Code Syst em Smoking History Never smoker (Never Smoked) 476841915 SNOMED CT Sex Female Vital Signs Vital Sign Value Unit [place] Value [place] Unit Date/Time Recent/Initial? Code Code System Body Mass Index 43.27 kg/m2 01/21/2024 14:39 Initial 92907 -5 LOINC Systolic Blood Pressure 134 mm[Hg] 01/21/2024 14:39 Initial 8480- 6 LOINC Diastolic Blood Pressure 101 mm[Hg] 01/21/2024 14:39 Initial 8462- 4 [facility] Body Surface Area 2.33 m2 01/21/2024 14:39 Initial 3140- 1 LOINC Height 165.100 0 cm 65.00 in 01/21/2024 14:39 Initial 8302- 2 LOINC O2 Saturation 100 % 2023 14:39 Initial 26755 -5 LOINC Pulse 72.0 /min 01/21/2024 14:39 Initial 8867- 4 LOINC Respiration 15 /min 01/21/20 14:39 Initial 9279- 1 LOINC Temperature 36.3 Rose 97.3 F 01/21/20 14:39 Initial 8310- 5 LOINC Weight 117.93 kg 260.00 lbs 01/21/2024 14:39 Initial 36954 -7 [facility] Medications Medication Start Date End Date Route Frequency Dose Code Code System Medication Instructions Home Meds Zithromax 250MG Oral Tablet 07/04/2023 Unknown ORAL DAILY 1 TABLET 436254 RxNorm TAKE 1 T ABLET ORAL DAILY [...] Status Code Code System TMJ DISORDER active 46294480 SNOMED- CT GERD 03/08/2022 resolved 639542438 SNOMED-CT ARTHRITIS 03/08/2022 resolved 0280652 SNOMED-CT ANEMIA 03/08/2022 resolved 463510877 SNOMED-CT DILATATION AND CURETTAGE PLANNED 03/08/2022 resolved 311631642 SNOMED-CT Allergies and Adverse Reactions Allergy Substance Reaction Severity Start Date Concern Status Co de Code System No Known Allergies Active 883646246 SNO MED-CT Plan of Treatment MRI UPPER [...]
--- OUTSIDE RECORDS SUMMARY | 2024-05-25 12:41 | XMS_ITS ---
Author Organization Unknown Address [address] [place] [address] [phone] Phone Care Team Providers Care Automobile Damage Appraiser Name Role Phone DOROTHY Santamaria Attending Unavailable ANABEL ANTONIO Primary Unavailable Results MR UPPER EXT ANY JOINT RT WO CONTRAST - Completed: 03/01/2024 15:45 LOINC: [No content] Social History Type Status Start Date End Date Code Code Syst em Smoking History Never smoker (Never Smoked) 480189619 SNOMED CT Sex Female Medications Medication Start Date End Date Route Frequency Dose Code Code System Medication Instructions Home Meds Zithromax 250MG Oral Tablet 07/04/2023 Unknown ORAL DAILY 1 TABLET 025936 RxNorm TAKE 1 T ABLET ORAL DAILY [...] Status Code Code System TMJ DISORDER active 37594739 SNOMED- CT GERD 03/08/2022 resolved 547399778 SNOMED-CT ARTHRITIS 03/08/2022 resolved 6419617 SNOMED-CT ANEMIA 03/08/2022 resolved 493708694 SNOMED-CT DILATATION AND CURETTAGE PLANNED 03/08/2022 resolved 633508602 SNOMED-CT Allergies and Adverse Reactions Allergy Substance Reaction Severity Start Date Concern Status Co de Code System No Known Allergies Active 746431136 SNO MED-CT Plan of Treatment MRI UPPER EXT JOINT W/O CONTRAST 2023 MRI LOWER EXT JOINT W/O CONTRAST 2022 US ABDOMEN LIMITED 1 ORGAN 09/03/2022 MRI TMJ W/O CONTRAST 06/04/2022 US ABDOMEN LIMITED 1 ORGAN 08/26/2021 Encounters Encounter Diagnosis Start Date Code Code Sys tem 03/01/2024 061032121048338 SNOMED-CT Personal Care Team Section Performer Name Performer Role Active Date Inactive Da te
--- OUTSIDE RECORDS SUMMARY | 2024-05-25 12:41 | XMS_ITS ---
Author Organization Unknown Address [address] [place] [address] [phone] Phone Care Team Providers Care Manager Security Name Role Phone LAMELL MAGDA Alonzo Attending Unavailable PROVOST ALVAREZ Primary Unavailable Results XR WRIST 3V RT* - Completed: 02/02/2024 15:38 LOINC: [facility] RADIOLOGY [place], [place] [address] RADIOLOGY INTERNATIONAL CONTROLLER REPORT Patient Name: DEVIKA BEJARANO MRN: Sex: : Age: [id number] F 1985 38 Account: Accession: Admit: StayType: [id number] 02/02/2024 O Ordered: Order ID: Submitted: Ordering Provider: 02/02/2024 15:31 [id number] MADGA BASS Completed: Technologist: Resulted: 02/02/2024 15:34 02/02/2024 [...] who have questions please contact the health child care aide that requested your imaging first. Electronically signed by: Bruce Davis MD [facility] ([phone]), at 02/02/2024 5:02 PM Social History Type Status Start Date End Date Code Code Syst em Smoking History Never smoker (Never Smoked) 260320557 SNOMED CT Sex Female Medications Medication Start Date End Date Route Frequency Dose Code Code System Medication Instructions Home Meds Zithromax 250MG Oral Tablet 07/04/2023 Unknown ORAL DAILY 1 TABLET 524165 RxNorm TAKE 1 T ABLET ORAL DAILY [...] Status Code Code System TMJ DISORDER active 11820615 SNOMED- CT GERD 03/08/2022 resolved 279778785 SNOMED-CT ARTHRITIS 03/08/2022 resolved 6598514 SNOMED-CT ANEMIA 03/08/2022 resolved 739388665 SNOMED-CT DILATATION AND CURETTAGE PLANNED 03/08/2022 resolved 622140113 SNOMED-CT Allergies and Adverse Reactions Allergy Substance Reaction Severity Start Date Concern Status Co de Code System No Known Allergies Active 761597100 SNO MED-CT Plan of Treatment MRI UPPER EXT JOINT W/O CONTRAST 2023 MRI LOWER EXT JOINT W/O CONTRAST 2022 US ABDOMEN LIMITED 1 ORGAN 09/03/2022 MRI TMJ W/O CONTRAST 06/04/2022 US ABDOMEN LIMITED 1 ORGAN 08/26/2021 Encounters Encounter Diagnosis Start Date Code Code Sys tem 02/02/2024 [id number] SNOMED-CT Personal Care Team Section Performer Name Performer Role Active Date Inactive Da te
--- OUTSIDE RECORDS SUMMARY | 2024-05-25 12:41 | XMS_ITS ---
Author Organization Unknown Address [address] [place] [address] [phone] Phone Care Team Providers Care Residential Building Inspector Name Role Phone DOROTHY Santamaria Attending Unavailable ANABEL ANTONIO Primary Unavailable Social History Type Status Start Date End Date Code Code Syst em Smoking History Never smoker (Never Smoked) 408098447 SNOMED CT Sex Female Medications Medication Start Date End Date Route Frequency Dose Code Code System Medication Instructions Home Meds Zithromax 250MG Oral Tablet 07/04/2023 Unknown ORAL DAILY 1 TABLET 666275 RxNorm TAKE 1 T ABLET ORAL DAILY [...] Status Code Code System TMJ DISORDER active 68782898 SNOMED- CT GERD 03/08/2022 resolved 970057807 SNOMED-CT ARTHRITIS 03/08/2022 resolved 8545306 SNOMED-CT ANEMIA 03/08/2022 resolved 364342609 SNOMED-CT DILATATION AND CURETTAGE PLANNED 03/08/2022 resolved 886176690 SNOMED-CT Allergies and Adverse Reactions Allergy Substance Reaction Severity Start Date Concern Status Co de Code System No Known Allergies Active 834208779 SNO MED-CT Plan of Treatment MRI UPPER EXT JOINT W/O CONTRAST 2023 MRI LOWER EXT JOINT W/O CONTRAST 2022 US ABDOMEN LIMITED 1 ORGAN 09/03/2022 MRI TMJ W/O CONTRAST 06/04/2022 US ABDOMEN LIMITED 1 ORGAN 08/26/2021 Encounters Encounter Diagnosis Start Date Code Code Sys tem 02/14/2024 703528912782550 SNOMED-CT Personal Care Team Section Performer Name Performer Role Active Date Inactive Da te
--- OUTSIDE RECORDS SUMMARY | 2024-05-25 12:42 | XMS_ITS ---
Author Organization Unknown Address [address] [place] [address] [phone] Phone Care Team Providers Care Process Area Supervisor Name Role Phone DOROTHY Santamaria Attending Unavailable Social History Type Status Start Date End Date Code Code Syst em Smoking History Never smoker (Never Smoked) 394106476 SNOMED CT Sex Female Medications Medication Start Date End Date Route Frequency Dose Code Code System Medication Instructions Home Meds Zithromax 250MG Oral Tablet 07/04/2023 Unknown ORAL DAILY 1 TABLET 710395 RxNorm TAKE 1 T ABLET ORAL DAILY [...] Status Code Code System TMJ DISORDER active 33865864 SNOMED- CT GERD 03/08/2022 resolved 610866319 SNOMED-CT ARTHRITIS 03/08/2022 resolved 8094604 SNOMED-CT ANEMIA 03/08/2022 resolved 083548413 SNOMED-CT DILATATION AND CURETTAGE PLANNED 03/08/2022 resolved 377661879 SNOMED-CT Allergies and Adverse Reactions Allergy Substance Reaction Severity Start Date Concern Status Co de Code System No Known Allergies Active 580416392 SNO MED-CT Plan of Treatment MRI UPPER EXT JOINT W/O CONTRAST 2023 MRI LOWER EXT JOINT W/O CONTRAST 2022 US ABDOMEN LIMITED 1 ORGAN 09/03/2022 MRI TMJ W/O CONTRAST 06/04/2022 US ABDOMEN LIMITED 1 ORGAN 08/26/2021 Encounters Encounter Diagnosis Start Date Code Code Sys tem 03/09/2024 850338131398442 SNOMED-CT Personal Care Team Section Performer Name Performer Role Active Date Inactive Da te
--- OUTSIDE RECORDS SUMMARY | 2024-05-25 12:42 | XMS_ITS ---
Author Organization Unknown Address [address] [place] [address] [phone] Phone Care Team Providers Care Actuarial Science Teacher Name Role Phone DOROTHY Santamaria Attending Unavailable ANABEL ANTONIO Primary Unavailable Social History Type Status Start Date End Date Code Code Syst em Smoking History Never smoker (Never Smoked) 857399239 SNOMED CT Sex Female Medications Medication Start Date End Date Route Frequency Dose Code Code System Medication Instructions Home Meds Zithromax 250MG Oral Tablet 07/04/2023 Unknown ORAL DAILY 1 TABLET 043533 RxNorm TAKE 1 T ABLET ORAL DAILY [...] Status Code Code System TMJ DISORDER active 81401986 SNOMED- CT GERD 03/08/2022 resolved 406572490 SNOMED-CT ARTHRITIS 03/08/2022 resolved 1941355 SNOMED-CT ANEMIA 03/08/2022 resolved 609767697 SNOMED-CT DILATATION AND CURETTAGE PLANNED 03/08/2022 resolved 913040915 SNOMED-CT Allergies and Adverse Reactions Allergy Substance Reaction Severity Start Date Concern Status Co de Code System No Known Allergies Active 022111568 SNO MED-CT Plan of Treatment MRI UPPER EXT JOINT W/O CONTRAST 2023 MRI LOWER EXT JOINT W/O CONTRAST 2022 US ABDOMEN LIMITED 1 ORGAN 09/03/2022 MRI TMJ W/O CONTRAST 06/04/2022 US ABDOMEN LIMITED 1 ORGAN 08/26/2021 Encounters Encounter Diagnosis Start Date Code Code Sys tem 03/02/2024 848291836751321 SNOMED-CT Personal Care Team Section Performer Name Performer Role Active Date Inactive Da te
--- OUTSIDE RECORDS SUMMARY | 2024-05-25 12:42 | XMS_ITS ---
Author Organization Unknown Address [address] [place] [address] [phone] Phone Care Team Providers Care Professional Fighter Name Role Phone DOROTHY Santamaria Attending Unavailable SHORTY Irene GENETIC ENGINEER Unavailable JENNIFER VIDES Physician Service Tech/Welder Unavailable ANABEL ANTONIO Primary Unavailable Social History Type Status Start Date End Date Code Code Syst em Smoking History Never smoker (Never Smoked) 355209091 SNOMED CT Sex Female Vital Signs Vital Sign Value Unit Ogle Value Ogle Unit Date/Time Recent/Initial? Code Code System Systolic Blood Pressure 148 mm[Hg] 03/09/2024 13:14 Initial 8480-6 INC Diastolic Blood Pressure 95 mm[Hg] 03/09/2024 13:14 Initial 8462-4 [facility] O2 Saturation 97 % 2023 13:14 Initial 26461- 5 [facility] Pulse 86.0 /min 03/09/2024 13:14 Initial 8867-4 LOINC Respiration 15 /min 03/09/20 13:14 Initial 9279-1 LOINC Temperature 36.0 Rose 96.8 F 03/09/20 24 13:14 Initial 8310-5 [facility] Medications Medication Start Date End Date Route Frequency Dose Code Code System Medication Instructions Home Meds Zithromax 250MG Oral Tablet 07/04/2023 Unknown ORAL DAILY 1 TABLET 816153 RxNorm TAKE 1 T ABLET ORAL DAILY [...] Name Date Status Code Code Syste m Neuroplasty &/Or Transpositi on; Median Nerve At Carpal Tunnel 03/09/2024 completed 79126 CPT Decompres Fasciotomy, Forear m &/Or Wrist, Flexor/Extensor Compart; w/o Debride Nonviable Muscle/Ner 03/09/2024 completed 79294 CPT Anesthesia, Nerves/Muscles/T endons/Fascia & Bursae, Lower Arm/Hand 03/09/2024 completed 79597 CPT Problems Problem Start Date Resolved Date Status Code Code System TMJ DISORDER active 32613674 SNOMED- CT GERD 03/08/2022 resolved 286295518 SNOMED-CT ARTHRITIS 03/08/2022 resolved 1983355 SNOMED-CT ANEMIA 03/08/2022 resolved 751043819 SNOMED-CT DILATATION AND CURETTAGE PLANNED 03/08/2022 resolved 904038366 SNOMED-CT Allergies and Adverse Reactions Allergy Substance Reaction Severity Start Date Concern Status Co de Code System No Known Allergies Active 834456377 SNO MED-CT Plan of Treatment MRI UPPER EXT JOINT W/O CONTRAST 2023 MRI LOWER EXT JOINT W/O CONTRAST 2022 US ABDOMEN LIMITED 1 ORGAN 09/03/2022 MRI TMJ W/O CONTRAST 06/04/2022 US ABDOMEN LIMITED 1 ORGAN 08/26/2021 Encounters Encounter Diagnosis Start Date Code Code Sys tem Carpal tunnel syndrome, right upper limb 03/09/2024 SNOMED-CT Personal Care Team Section Performer Name Performer Role Active Date Inactive Da romina
--- OUTSIDE RECORDS SUMMARY | 2024-05-25 12:43 | XMS_ITS ---
Author Organization Unknown Address [address] [place] [address] [phone] Phone Care Team Providers Care Manager Book Name Role Phone DOROTHY Santamaria Attending Unavailable SHELIA Alonzo Physician Finished Garment Inspector Unavailable ANABEL ANTONIO Primary Unavailable Social History Type Status Start Date End Date Code Code Syst em Smoking History Never smoker (Never Smoked) 852412860 SNOMED CT Sex Female Vital Signs Vital Sign Value Unit Butler Value Butler Unit Date/Time Recent/Initial? Code Code System Systolic Blood Pressure 133 mm[Hg] 04/20/2024 08:17 Initial 8480-6 INC Diastolic Blood Pressure 78 mm[Hg] 04/20/2024 08:17 Initial 8462-4 [facility] O2 Saturation 97 % 2023 08:17 Initial 54450- 5 LOINC Pulse 73.0 /min 04/20/2024 08:17 Initial 8867-4 LOINC Respiration 18 /min 04/20/20 08:17 Initial 9279-1 LOINC Temperature 2.2 Rose 36.0 F 04/20/20 08:17 Initial 8310-5 [facility] Medications Medication Start Date End Date Route Frequency Dose Code Code System Medication Instructions Home Meds Zithromax 250MG Oral Tablet 07/04/2023 Unknown ORAL DAILY 1 TABLET 443301 RxNorm TAKE 1 T ABLET ORAL DAILY [...] Transpositi on; Median Nerve At Carpal Tunnel 04/20/2024 completed 32946 CPT Problems Problem Start Date Resolved Date Status Code Code System TMJ DISORDER active 53581791 SNOMED- CT GERD 03/08/2022 resolved 464566726 SNOMED-CT ARTHRITIS 03/08/2022 resolved 4718433 SNOMED-CT ANEMIA 03/08/2022 resolved 915556829 SNOMED-CT DILATATION AND CURETTAGE PLANNED 03/08/2022 resolved 372081868 SNOMED-CT Allergies and Adverse Reactions Allergy Substance Reaction Severity Start Date Concern Status Co de Code System No Known Allergies Active 718221209 SNO MED-CT Plan of Treatment MRI UPPER EXT JOINT W/O CONTRAST 2023 MRI LOWER EXT JOINT W/O CONTRAST 2022 US ABDOMEN LIMITED 1 ORGAN 09/03/2022 MRI TMJ W/O CONTRAST 06/04/2022 US ABDOMEN LIMITED 1 ORGAN 08/26/2021 Encounters Encounter Diagnosis Start Date Code Code Sys tem Carpal tunnel syndrome, left upper limb 04/20/2024 SNOMED-CT Personal Care Team Section Performer Name Performer Role Active Date Inactive Da romina
--- OUTSIDE RECORDS SUMMARY | 2024-05-25 12:43 | XMS_ITS ---
Author Organization Unknown Address [address] [place] [phone] Phone Care Team Providers Care Foreign Clerk Name Role Phone LAMELL MAGDA Alonzo Attending Unavailable ANABEL ANTONIO Primary Unavailable Social History Type Status Start Date End Date Code Code Syst em Smoking History Never smoker (Never Smoked) 503660524 SNOMED CT Sex Female Medications Medication Start Date End Date Route Frequency Dose Code Code System Medication Instructions Home Meds Zithromax 250MG Oral Tablet 07/04/2023 Unknown ORAL DAILY 1 TABLET 387108 RxNorm TAKE 1 T ABLET ORAL DAILY [...] Status Code Code System TMJ DISORDER active 40783858 SNOMED- CT GERD 03/08/2022 resolved [id number] SNOMED-CT ARTHRITIS 03/08/2022 resolved [id number] SNOMED-CT ANEMIA 03/08/2022 resolved [id number] SNOMED-CT DILATATION AND CURETTAGE PLANNED 03/08/2022 resolved [id number] SNOMED-CT Allergies and Adverse Reactions Allergy Substance Reaction Severity Start Date Concern Status Co de Code System No Known Allergies Active 985960771 SNO MED-CT Plan of Treatment MRI UPPER EXT JOINT W/O CONTRAST 2023 MRI LOWER EXT JOINT W/O CONTRAST 2022 US ABDOMEN LIMITED 1 ORGAN 09/03/2022 MRI TMJ W/O CONTRAST 06/04/2022 US ABDOMEN LIMITED 1 ORGAN 08/26/2021 Encounters Encounter Diagnosis Start Date Code Code Sys tem Procedure on nervous system 03/22/2024 508522704 SNOMED-CT Personal Care Team Section Performer Name Performer Role Active Date Inactive Da te
--- OUTSIDE RECORDS SUMMARY | 2024-05-25 12:44 | XMS_ITS | Encounter Summary ---
Author Organization [facility] Address [address] [place] [address] Care Team Providers Care Meat Loiner Name Role Phone Corine Coulter Primary Care Provider [phone] Encounter Details Date Type Department Care Team (Latest Contact Info) Description 04/06/[address] [facility] [address] [place], [place] [id number] [place] [facility] Refill Coordination Outreach for Rheumatology Social History [...] 02/04/2020 Verbally Threaten Not on file 02/04/2020 Comments No Sex and Gender Information Value Date Recorded Sex Assigned at Not on file Legal Sex Female 17:38 EST Gender Identity Female 07/04/2019 11:12 EST Sexual Orientation Not on file documented as of this encounter Functional Status * Because of a physical, mental, or emotional condition, does this person have difficulty doing errands alone such as visiting a doctor's office or shopping? Answer Date of Assessment Author No 07/07/2019 14:22 EST documented as of this encounter Mental Status * Because of a physical, mental, or emotional condition, does this person have serious difficulty concentrating, remembering, or making decisions? Answer Entry Date Author No 07/07/2019 14:22 EST documented in this encounter Plan of Treatment Upcoming Encounters Date Type Department Care Team (Late st Contact Info) Description 09/21/2024 8:[address] [facility] Rheumatology [address] [place] [address] Venecia Vega MD [address] [facility] [address] [place] [address] documented as of this encounter Visit Diagnoses Not on filedocumented in this encounter Care Teams Meat Loiner Relationship Specialty Start Date End Date Corine Coulter [address] [place] [phone] PCP - General Family Medicine - Primary Care 03/08/24 documented as of this encounter
--- OUTSIDE RECORDS SUMMARY | 2024-05-25 12:44 | XMS_ITS | Encounter Summary ---
Author Organization [facility] Address [address] [place] [address] Care Team Providers Care Dj Instructor Name Role Phone PaulRebeca George AGUILERA Primary Care Provider [phone] Reason for Visit * Reason Onset Date Comments Medications Refill 12/09/2023 Humira refill s needed Encounter Details Date Type Department Care Team (Late st Contact Info) Description 12/09/2023 Telephone [facility] Rhe[facility] [address] [place] [address] Venecia Vega, DO [address] 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 12 Each 1 12/09/2023 documented in this encounter Progress Notes * Jaleel Montano RPH - 12/09/2023 1325 EDT Renewal of Humira is required for continued use; order sent per refill protocol to [facility] for dispensing. Follow-up with Venecia Vega DO. Jaleel Montano, PharmD Ambulatory Pharmacist Clinician - Rheumatology 12/09/2023 documented in this encounter Miscellaneous Notes * Telephone Encounter - Selina Haq - 12/09/2023 1216 EDT Medication Refill Request Medication: Humira Patient needs medication by: ~12/18 Scheduled outreach date: 12/09 Pharmacy: [facility] ([facility] [address] Next appt: Visit date not found documented in this encounter Plan of Treatment Upcoming Encounters Date Type Department Care Team (Late st Contact Info) Description 09/21/2024 8:[address] [facility] Rheumatology [address] [place], [place] [address] Venecia Vega MD [address] [facility] [address] [place] [address] documented as of this encounter Visit Diagnoses Diagnosis Seronegative rheumatoid arthritis ([facility])- Primary Rheumatoid arthritis documented in this encounter Discontinued Medications Medication Sig Discontinue Reason Start Date End Da te adalimumab (HUMIRA,CF, PEN) 40 mg/0.4 mL penIndications:Seronegat jennifer rheumatoid arthritis ([facility]) Inject 0.4 mL into the skin every 7 days. Reorder 05/21/2023 12/09/2023 documented as of this encounter Care Teams Dj Instructor Relationship Specialty Start Date End Date Rebeca Miller APRN [address] [place] [phone] PCP - General Family Medicine - Primary Care 11/21/21 03/07/24 documented as of this encounter
--- OUTSIDE RECORDS SUMMARY | 2024-05-25 12:44 | XMS_ITS | Encounter Summary ---
Author Organization [facility] Address [address] [place] [address] Care Team Providers Care Bicycle Designer Name Role Phone Rebeca Miller APRN Primary Care Provider Reason for Visit * Reason Comments Telemedicine Video Visit Encounter Details Date Type Department Care Team (Late st Contact Info) Description 07/23/2023 9:15 EST Telemedicine [facility] Rheumatology [address] [place] [address] Venecia Vega MD 130 [facility] [address] [place] [address] Ankylosing spondylitis of multiple sites [...] EDT documented in this encounter Functional Status * Because of [...] Refills Last Filled Start Date End Date predniSONE (DELTASONE) 5 mg tabletIndications: Ankylosing spondylitis of multiple sites in spine (HCC-CMS) Take 3 Tablets by mouth daily. 21 Tablet 1 07/23/2023 4 fluconazole (DIFLUCAN) 150 mg tabletIndications: Vaginal yeast infection 1 tablet for vaginal yeast infection may repeat x 1 for recurrence after 72 hours 2 Tablet 1 07/23/2023 4 documented in this encounter Progress Notes * [...] Venecia Vega MD - 07/23/2023 0915 EST [facility] Video Visit Today's visit [...] Data reviewed with patient Recently labs per [facility], see scans WBC 10.6 platelets elevated CRP [...] Ankylosing spondylitis of multiple sites in spine ([facility]) predniSONE (DELTASONE) 5 mg tablet Humira weekly Flare rx with prednsione 15mgweek flare d/t influenza and interupted therapy. 2. Vaginal yeast infection fluconazole (DIFLUCAN) 150 mg tablet prn fluoconazole BS control/managed by pcp does not have dx of DM 3. Thrombocytosis chronic seen in [facility] No dx established attributed to her arthritis by [facility] RTC 3 mo Labs just prior cbc,c [...] Contact Info) Description 09/21/2024 8:15 EDT Telemedicine [facility] Rheumatology [address] [place] [address] Venecia Vega MD 130 [facility] [address] [place] [phone] documented as of this encounter Visit Diagnoses Diagnosis Ankylosing spondylitis of multiple sites in spine ([facility])- Primary Ankylosing spondylitis Vaginal yeast infection Candidiasis of vulva and vagina Thrombocytosis Essential thrombocythemia documented in this encounter Discontinued Medications Medication Sig Discontinue Reason Start Date End Da te fluconazole (DIFLUCAN) 150 mg tabletIndications:Vagi nal yeast infection 1 tablet for vaginal yeast infection may repeat x 1 for recurrence after 72 hours Reorder 01/20/2023 07/23/2023 documented as of this encounter Care Teams Bicycle Designer Relationship Specialty Start Date End Date Rebeca Miller APRN [address] [place] [address] PCP - General Family Medicine - Primary Care 11/21/21 03/07/24 documented as of this encounter
--- OUTSIDE RECORDS SUMMARY | 2024-05-25 12:44 | XMS_ITS | Encounter Summary ---
Author Organization [facility] Address [address] [place] [address] Care Team Providers Care Aircraft Hydraulic Equipment Mechanic Name Role Phone PaulRebeca juan George AGUILERA Primary Care Provider [phone] Encounter Details Date Type Department Care Team (Late st Contact Info) Description 02/02/2023 Specialty Pharmacy [facility] - [facility] [address] [place] [address] [place], [facility] Social History Tobacco Use Types Packs/Day [...] 07/07/2019 14:22 EST documented in this encounter Progress Notes * Shelley Cortes - 02/02/2023 1615 EDT Specialty Pharmacy Documentation Medication: Humira Clinic: [facility] Reason for Encounter: documentation Notes: Called pt to check in to see if she was able to reach [employer] on getting a replacement pen. She was [...] that was dispensed to patient. Lot number [id number]. The case # is [id number]. documented in this encounter Plan of Treatment Upcoming Encounters Date Type Department Care Team (Late st Contact Info) Description 09/21/2024 8:15 EDT Telemedicine [facility] Rheumatology [address] [place], [place] [address] Venecia Vega MD 130 [facility] [address] [place] [phone] documented as of this encounter Visit Diagnoses Not on filedocumented in this encounter Care Teams Aircraft Hydraulic Equipment Mechanic Relationship Specialty Start Date End Date Rebeca Miller APRN [address] [place] [address] PCP - General Family Medicine - Primary Care 11/21/21 03/07/24 documented as of this encounter
--- OUTSIDE RECORDS SUMMARY | 2024-05-25 12:44 | XMS_ITS ---
Author Organization Unknown Address [address] [place] [phone] Phone Care Team Providers Care Fruit Or Nut Farmworker Name Role Phone DOROTHY Santamaria Attending Unavailable Social History Type Status Start Date End Date Code Code Syst em Smoking History Never smoker (Never Smoked) 570823631 SNOMED CT Sex Female Medications Medication Start Date End Date Route Frequency Dose Code Code System Medication Instructions Home Meds Zithromax 250MG Oral Tablet 07/04/2023 Unknown ORAL DAILY 1 TABLET 520802 RxNorm TAKE 1 T ABLET ORAL DAILY [...] Status Code Code System TMJ DISORDER active 55745806 SNOMED- CT GERD 03/08/2022 resolved 253821850 SNOMED-CT ARTHRITIS 03/08/2022 resolved 3672397 SNOMED-CT ANEMIA 03/08/2022 resolved 248125480 SNOMED-CT DILATATION AND CURETTAGE PLANNED 03/08/2022 resolved 296917520 SNOMED-CT Allergies and Adverse Reactions Allergy Substance Reaction Severity Start Date Concern Status Co de Code System No Known Allergies Active 953674568 SNO MED-CT Plan of Treatment MRI UPPER EXT JOINT W/O CONTRAST 2023 MRI LOWER EXT JOINT W/O CONTRAST 2022 US ABDOMEN LIMITED 1 ORGAN 09/03/2022 MRI TMJ W/O CONTRAST 06/04/2022 US ABDOMEN LIMITED 1 ORGAN 08/26/2021 Personal Care Team Section Performer Name Performer Role Active Date Inactive Da te
--- OUTSIDE RECORDS SUMMARY | 2024-05-25 12:44 | XMS_ITS | Encounter Summary ---
Author Organization [facility] Address [address] [place] [address] Care Team Providers Care Textbook Associate Name Role Phone Paul Rebeca Vazquez APRN Primary Care Provider [phone] Reason for Visit * Reason Onset Date Comments Medications Refill 05/21/2023 Encounter Details Date Type Department Care Team (Late st Contact Info) Description 05/21/2023 Refill [facility] Rheumatology [address] [place], [place] [phone] Venecia Vega MD 130 [facility] [address] [place] [address] Medications Refill Social History Tobacco [...] Date adalimumab (HUMIRA,CF, PEN) 40 mg/0.4 mL penIndications:Ser onegative rheumatoid arthritis ([facility]) Inject 0.4 mL into the skin [...] Contact Info) Description 09/21/2024 8:15 EDT Telemedicine [facility] Rheumatology [address] [place], [place] [phone] Venecia Vega MD [address] [facility] [address] [place] [address] documented as of this encounter Visit Diagnoses Diagnosis Seronegative rheumatoid arthritis ([facility])- Primary Rheumatoid arthritis documented in this encounter Discontinued Medications Medication Sig Discontinue Reason Start Date End Da te adalimumab (HUMIRA,CF, PEN) 40 mg/0.4 mL penIndications:Seronegat jennifer rheumatoid arthritis (HCC-CMS) Inject 0.4 mL into the skin every 7 days. Reorder 01/08/2023 05/21/2023 documented as of this encounter Care Teams Textbook Associate Relationship Specialty Start Date End Date Rebeca Miller APRN [address] [place] [address] PCP - General Family Medicine - Primary Care 11/21/21 03/07/24 documented as of this encounter
--- OUTSIDE RECORDS SUMMARY | 2024-05-25 12:44 | XMS_ITS | Encounter Summary ---
Author Organization [facility] Address [address] [place] [address] Care Team Providers Care Information Consultant Name Role Phone Rebeca Miller George AGUILERA Primary Care Provider Encounter Details Date Type Department Care Team (Latest Contact Info) Description 02/10/2024 Specialty Pharmacy [facility] Specialty Pharmacy [address] [place], [place] [address] [place] [...] Contact Info) Description 09/21/2024 8:15 EDT Telemedicine [facility] Rheumatology [address] [place] [address] Venecia Vega MD 130 [facility] [address] [place] [address] documented as of this encounter Visit Diagnoses Not on filedocumented in this encounter Care Teams Information Consultant Relationship Specialty Start Date End Date Rebeca Miller APRN [address] [place] [address] PCP - General Family Medicine - Primary Care 11/21/21 03/07/24 documented as of this encounter
--- OUTSIDE RECORDS SUMMARY | 2024-05-25 12:44 | XMS_ITS | Encounter Summary ---
Author Organization [facility] Address [address] [place] [address] Care Team Providers Care Recruitment Consultant Name Role Phone PaulRebeca juan George AGUILERA Primary Care Provider Encounter Details Date Type Department Care Team (Late st Contact Info) Description 03/26/2023 Specialty Pharmacy [facility] - [facility] [address] [place] [address] [place], [facility] Social History Tobacco Use Types Packs/Day Years [...] Contact Info) Description 09/21/2024 8:15 EDT Telemedicine [facility] Rheumatology [address] [place] [address] Venecia Vega MD [address] [facility] [address] [place] [address] documented as of this encounter Visit Diagnoses Not on filedocumented in this encounter Care Teams Recruitment Consultant Relationship Specialty Start Date End Date Rebeca Miller APRN [address] [place] [address] PCP - General Family Medicine - Primary Care 11/21/21 03/07/24 documented as of this encounter
--- OUTSIDE RECORDS SUMMARY | 2024-05-25 12:44 | XMS_ITS | Encounter Summary ---
Author Organization [facility] Address [address] [place] [address] Care Team Providers Care Chamber Worker Name Role Phone Paul Rebeca George AGUILERA Primary Care Provider Reason for Visit * Reason Onset Date Comments Medications Refill 07/26/2023 Encounter Details Date Type Department Care Team (Late st Contact Info) Description 07/26/[address] [facility] [address] [place], [place] [phone] Venecia Vega MD [address] [facility] [address] [place] [address] Medications Refill Social History Tobacco [...] Refills Last Filled Start Date End Date gabapentin (NEURONTIN) 300 mg capsuleIndications :Jaw pain Take 1 Capsule by mouth 2 times daily. 180 Capsule 1 07/27/2023 4 documented in this encounter Miscellaneous Notes * Telephone Encounter - Emiliano Luna RN - 07/27/2023 0837 EST Medication(s) Requested: Gabapentin Preferred Pharmacy: [facility] Are visits in compliance? No, Needs to schedule f/u per notes of 07/23/2023 patient to RTC 3 months (10/27/2023) Last Refill Date: 02/03/2023 #180 with 1 refill Recent Visits Date Type Provider Dept 04/29/22 Office Visit Venecia Vega MD [facility] Rheumatology Showing recent visits within past 540 [...] Info) Description 09/21/2024 8:[address] [facility] [address] [place] [address] Venecia Vega MD [address] [facility] [address] [place] [phone] documented as of this encounter Visit Diagnoses Diagnosis Jaw pain- Primary documented in this encounter Discontinued Medications Medication Sig Discontinue Reason Start Date End Da te gabapentin (NEURONTIN) 300 mg capsuleIndications:Jaw pain Take 1 Capsule by mouth 2 times daily. Reorder 02/03/2023 07/26/2023 documented as of this encounter Care Teams Chamber Worker Relationship Specialty Start Date End Date Rebeca Miller APRN [address] [place] [phone] PCP - General Family Medicine - Primary Care 11/21/21 03/07/24 documented as of this encounter
--- OUTSIDE RECORDS SUMMARY | 2024-05-25 12:44 | XMS_ITS | Encounter Summary ---
Author Organization [facility] Address [address] [place] [address] Care Team Providers Care Fastener Sewing Machine Operator Name Role Phone Paul Rebeca George AGUILERA Primary Care Provider [phone] Encounter Details Date Type Department Care Team (Latest Contact Info) Description 09/09/2023 Specialty Pharmacy [facility] [address] [place], [place] [address] [place], [place], [facility] Refill Coordination Outreach for Rheumatology Social History [...] Contact Info) Description 09/21/2024 8:15 EDT Telemedicine [facility] Rheumatology [address] [place] [address] Venecia Vega MD [address] [facility] [address] [place] [address] documented as of this encounter Visit Diagnoses Not on filedocumented in this encounter Care Teams Fastener Sewing Machine Operator Relationship Specialty Start Date End Date Rebeca Miller APRN [address] [place] [phone] PCP - General Family Medicine - Primary Care 11/21/21 03/07/24 documented as of this encounter
--- OUTSIDE RECORDS SUMMARY | 2024-05-25 12:44 | XMS_ITS | Clinical Summary ---
Author Organization [facility] Address [address] [place] [address] Care Team Providers Care Principal Trainer Name Role Phone Corine Coulter Primary Care Provider [phone] Allergies No known active allergies Medications fluticasone propionate (FLONASE) 50 mcg/actuation nasal sprayIndications :Recurrent acute serous otitis media of both ears Instill 1 Alexander into both nostrils daily. 1 Bottle 2 9 Active omeprazole (PRILOSEC) 40 mg capsule Take 1 Capsule by mouth daily. Active loratadine (CLARITIN) 10 mg tablet Take 1 Tablet by mouth daily. Active aspirin-acetamin ophen-caffeine (EXCEDRIN MIGRAINE) 250-250-65 mg per tablet Take 1 Tablet by mouth every 12 hours as needed for Headaches. Active Sodium Fluoride 1.1 % gel 3 Active ferrous sulfate 325 mg (65 mg iron) tablet Take 1 Tablet by mouth every 48 hours. Active ondansetron (ZOFRAN) 4 mg tabletIndication s:Nausea Take 1 Tablet by mouth every 12 hours as needed for Nausea. 8 Tablet 4 Active adalimumab (HUMIRA,CF, PEN) 40 mg/0.4 mL penIndications:S eronegative rheumatoid arthritis ([facility]) Inject 0.4 mL into the skin every 7 days. 12 Each 1 4 Active gabapentin (NEURONTIN) 300 mg capsuleIndicatio ns:Jaw pain Take 1 Capsule by mouth 2 times daily. 180 Capsule 1 4 Active hydroxychloroqui ne (PLAQUENIL) 200 mg tabletIndication s:Ankylosing spondylitis of sacral region ([facility]) Take 1 Tablet by mouth daily. 90 Tablet 3 4 Active Active Problems Patient Care Coordination No te Formatting of this note migh t be different from the original. 01-04-20 Anjel Ojeda, (PERM TO SPEAK). BRENDAN Had hydroxychloroquine eye exam 10/2023. 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 Stopped 03/22 Seen Naturopathic clinic rx for Lyme. High risk medication use 07/07/2019 Lyme disease 07/07/2019 Overview (07/07/2019): Treatment with naturopathy Antibiotics. Supplements and tinctures. Therapy from 02/19 to 06/22 Dr Wyatt at [facility]. 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[facility]) 01/04/2020 10/17/2021 Encounters Date Type Department Care Team Description 05/04/2024 Specialty Pharmacy [facility] [address] [place], [place] [phone] Van Phelps RPH Refill Coordination Outreach for Rheumatology 04/06/2024 Specialty Pharmacy [facility] [address] [place], [place] [id number] Van Phelps RPH Refill Coordination Outreach for Rheumatology 03/23/2024 11:15 EDT Telemedicine [facility] [address] [place] [address] Venecia Vega MD Carpal tunnel syndrome of right wrist (Primary Dx); Jaw pain; Ankylosing spondylitis of sacral region ([facility]) 03/16/2024 Abstract [facility] Rheumatology [address] [place] [address] Víctor Chu RN 03/08/2024 Telephone [facility] Rheumatology [address] [place] [address] Katt Stringer RN Follow-up; Medications Refill 03/07/2024 Specialty Pharmacy [facility] [address] [place] [address] Van Phelps, [facility] Refill Coordination Outreach for Rheumatology, Clinical Follow-up (2x annually) for Rheumatology from Last 3 Months Immunizations [...] from 02/19 to 06/22 Dr Wyatt at [facility]. Seronegative spondyloarthropathy 07/07/2019 Seronegative spondyloarthropathy 07/07/2019 [...] EDT Temperature 36.2 ??C (97.2 ??F) 04/29/2022 1612 EDT Respiratory Rate 16 02/06/2021 1254 EDT Oxygen Saturation 96% 01/21/2020 1308 EDT Inhaled Oxygen Concentration - - Weight 120.2 kg (265 lb) 03/23/2024 1055 EDT Height 170.2 cm (5' 7) 03/23/2024 1055 EDT Body Mass Index 41.5 03/23/2024 1055 EDT Plan of Treatment Upcoming Encounters Date Type Department Care Team (Late st Contact Info) Description 09/21/2024 8:15 EDT Telemedicine [facility] [address] [place], [place] [address] Venecia Vega MD [address] [facility] [address] [place] [address] Health Maintenance Due Date Last Done Comments [...] 02/24/2026 02/25/2016 Pertussis (Adult) Immunization Completed 02/25/2016 RETIRED Cervical Cancer Screening Discontinued 10/04/2018, 10/21/2015, 02/17/2013, Additional history exists Hepatitis C Screen Completed 09/09/2022, 09/17/2016 HPV Vaccines Aged Out No longer eligi ble based on patient's age to complete this topic Procedures Procedure Name Priority Date/Time Associated Diagnosis Comments COMPREHENSIVE METABOLIC PANEL (CMP) Routine 03/14/2024 C REACTIVE PROTEIN Routine 03/14/2024 COMPLETE BLOOD COUNT AND DIFFERENTIAL Routine 03/14/2024 HEPATITIS C AB W REFLEX TO HCV RNA BY PCR Routine 09/09/2022 14:00 EST MA BREAST DIAGNOSTIC FLAVIA BILATERAL 10/14/2018 9:08 EDT HPV DNA DETECTION WITH GENOTYPING, PCR Routine 10/04/2018 9:49 EDT PAP TEST Routine 10/04/2018 from Last 3 Months or Most Recently Relevant to Health Maintenance Results * (ABNORMAL) COMPLETE BLOOD COUNT AND DIFFERENTIAL (03/14/2024) WBC, External 8.39 4.4 - 10.8 EXTERNAL LAB RBC, External 4.71 3.93 - 5.22 EXTERNAL LAB Hemoglobin, External 14.4 11.2 - 15.7 % EXTERNAL LAB HCT, External 44.1 36.0 - 46.0 EXTERNAL LAB MCV, External 94 80 - 95 EXTERNAL LAB MCH, External 30.6 27.0 - 33.0 g/dL EXTERNAL LAB MCHC, External 32.7 32.0 - 36.0 g/dL EXTERNAL LAB PLT, External 414(A) 130 - 400 EXTERNAL LAB RDW-CV, External 13.1 11.7 - 14.6 EXTERNAL LAB Neutrophils, External 44.7 EXTERNAL LAB Lymphocytes, External 40.8 EXTERNAL LAB Monocytes, External 7.9 EXTERNAL LAB Eosinophils, External 5.5 EXTERNAL LAB Basophils, External 0.7 EXTERNAL LAB ABS Neutrophils, External 3.76 1.2 - 6.7 EXTERNAL LAB ABS Lymphs, External 3.42(A) 1.2 - 3.4 EXTERNAL LAB ABS Monocytes, External 0.66 0.1 - 0.8 EXTERNAL LAB ABS Eosinophils, External 0.46 0.0 - 0.7 EXTERNAL LAB ABS Basophils, External 0.06 0.0 - 0.2 EXTERNAL LAB Blood VENOUS BLOOD / Unknown 03/14/2024 us Venecia Vega MD PACKAGES & DNA PROBE ORD ERABLES Final Result EXTERNAL LAB * C REACTIVE PROTEIN (03/14/2024) C-Reactive Protein, External 0.83 EXTERNAL LAB Blood VENOUS BLOOD / Unknown 03/14/2024 Venecia Vega MD CHEMISTRY & BLOOD GAS OR DERABLES Edited Result - Final EXTERNAL LAB * (ABNORMAL) COMPREHENSIVE METABOLIC PANEL (CMP) (03/14/2024) GFR, Calculated, External 82.88 <60 EXTERNAL LAB Glucose, Serum, External 96 74 - 106 mg/dL EXTERNAL LAB Albumin, External 3.8 3.4 - 5.0 g/dL EXTERNAL LAB Total Alkaline Phosphatase, External 67 46 - 116 EXTERNAL LAB ALT, External 57 14 - 59 EXTERNAL LAB AST, External 49(A) 15 - 37 U/L EXTERNAL LAB BUN, External 6(A) 7 - 18 mg/dL EXTERNAL LAB Calculated Calcium, External EXTERNAL LAB Calcium, External 8.9 8.5 - 10.1 mg/dL EXTERNAL LAB Chloride, External 105 98 - 107 mmol/L EXTERNAL LAB CO2, External 25.3 21.0 - 32.0 mmol/L EXTERNAL LAB Creatinine, External 0.9 0.55 - 1.02 mg/dL EXTERNAL LAB Fasting?, External EXTERNAL LAB Potassium, External 3.9 3.5 - 5.1 mmol/L EXTERNAL LAB Sodium, External 140 136 - 145 mmol/L EXTERNAL LAB Total Protein, External 7.6 6.4 - 8.2 EXTERNAL LAB Bilirubin, Total, External 0.47 0.2 - 1.0 EXTERNAL LAB Blood VENOUS BLOOD / Unknown 03/14/2024 Venecia Vega MD CHEMISTRY & BLOOD GAS OR DERABLES Final Result EXTERNAL LAB * HEPATITIS C AB W REFLEX TO HCV RNA BY PCR (09/09/2022 14:00 EST) Hep C Antibody Negative Negative 09/11/2022 10:[address] [facility] Blood VENOUS BLOOD / Unknown 09/09/2022 14:00 EST 09/10/2022 17:13 EST Provider Outr Resulting Lab CHEMISTRY & BLOOD GA S ORDERABLES Final Result [facility] [address] [place] [address] * MA BREAST DIAGNOSTIC FLAVIA BILATERAL (10/14/2018 [...] were communicated to the patient by the air defense artillery officer ? shortly following the examination . ? These results will be communicated to your patient via a lay letter ? from Radiology. ??If any additional imaging is needed we will contact ? your patient directly. ? REPORT SIGNED IN OTHER VENDOR SYSTEM 10/14/2018 ?Reported By: Luis Antonio Griffin MD ? CC: ? Transcribed Date/Time: 10/14/2018 (0908) ? Coremaker Helper: R ? Printed Date/Time: 12/25/2018 (210) ? PAGE [...] Griffin MD CC: Transcribed Date/Time: 10/14/2018 (0908) Coremaker Helper: Printed Date/Time: 12/25/2018 (2100) PAGE 1 Signed Report Mary Braswell MD IMG MAMMOGRAPHY ORDERABLES Leia l Result * HUMAN PAPILLOMAVIRUS (HPV) DETECTION-HIGH RISK TYPES (10/04/2018 9:49 EDT) HPV other High Risk types, PCR NEG 10/07/2018 15:20 EDT [facility] Comment: Negative for HPV types 16, 18, 31, 33, 35, 39, 45, 51, 52, 56, 58, 59, 66, 68. Method: Cervista HPV HR (High Risk) DNA test. 10/04/2018 9:49 EDT 10/05/2018 9:49 EDT Mary Braswell MD MICROBIOLOGY - GENERAL ORDERABL ES Final Result [facility] * PAP TEST (10/04/2018) 10/04/2018 10/05/2018 9:4 9 EDT Narrative [facility] - 10/10/2018 8:13 EDT ----- ------- Name: ARABELLA OJEDA ? : 81 ?Age/Sex: 33/F ?Unit#: [id number] ? Loc: AGO ? Status: REG POV ?? Reg Date: 10/04/18 ? Pt.Phone Number: ? ----- ------- Specimen: [id number] ?STATUS: SOUT ?Spec Date:10/04/18 ? Physician Copies: ?Mary Braswell MD ? Tissues: ? Cervical/Endo Pap ?Serafin Saucedo MD CPT: 91294 ?? Units: ??1 ----- ------- ? CYTOLOGY [...] above diagnosis. Test Performed by [facility], [address] [place] [address] Principal Engineer: Rhona Brown MD PHD ----- ------- us Mary Braswell MD PATHOLOGY ORDERABLES Final Resu lt [facility] from Last 3 Months or Most Recently Relevant to Health Maintenance Insurance MEDICAID [facility] Address: [address] [address] MEDICAID [place] Advance Directives For more information, please contact: [phone] Documents on File Type Date Recorded Patient Tobacco Grower Expl anation Advance Directive 01/17/2020 14:32 09-21-17 Advance Directive Advance Directive 10/30/2021 13:08 09-01-21 Advance Directive Care Teams Principal Trainer Relationship Specialty Start Date End Date Corine Coulter [address] [place] [address] PCP - General Family Medicine - Primary Care 03/08/24
--- OUTSIDE RECORDS SUMMARY | 2024-05-25 12:44 | XMS_ITS | Encounter Summary ---
Author Organization [facility] Address [address] [place] [address] Care Team Providers Care Blending Supervisor Name Role Phone Rebeca Miller APRN Primary Care Provider Corine Coulter Primary Care Provider [phone] Encounter Details Date Type Department Care Team (Latest Contact Info) Description 03/07/2024 Specialty Pharmacy [facility] Special[facility] Pharmacy [address] [place], [place] [phone] Van Phelps [facility] Refill Coordination Outreach for Rheumatology, Clinical Follow-up [...] Contact Info) Description 09/21/2024 8:15 EDT Telemedicine [facility] Rheumatology [address] [place] [id number] Venecia Vega MD [address] [facility] [address] [place] [address] documented as of this encounter Visit Diagnoses Not on filedocumented in this encounter Care Teams Blending Supervisor Relationship Specialty Start Date End Date Rebeca Miller APRN [address] [place] [address] PCP - General Family Medicine - Primary Care 11/21/21 03/07/24 Corine Coulter [address] [place] [address] PCP - General Family Medicine - Primary Care 03/08/24 documented as of this encounter
--- OUTSIDE RECORDS SUMMARY | 2024-05-25 12:44 | XMS_ITS | Clinical Summary ---
Author Organization [facility] Address [facility] [place] [address] Care Team Providers Care Food Preparer Name Role Phone Serafin Saucedo MD Primary Care Provider Allergies No known active allergies Medications Medication Sig Dispensed Refills Start Date End Date Status infliximab (REMICADE IV) Inject into the vein Every 8 Weeks. Active omeprazole (PRILOSEC) 20 mg Capsule, Delayed Release(E.C.) Take 20 mg by mouth 2 times daily. Active Active Problems No known active problems Encounters Date Type Department Care Team Description 03/01/2024 Interpretation Only [facility] in [address] [address] Bong Alvarenga MD from Last 3 Months Social History Tobacco Use Types Packs/Day Years Used Date Smoking Tobacco: Never Smokeless Tobacco: Never Sex and Gender Information Value Date Recorded Sex Assigned at Not on file Gender Identity Not on file Sexual Orientation Not on file Last Filed Vital Signs Vital Sign Reading Time Taken Comments Blood Pressure 128/76 01/13/2018 2:54 PM EDT Pulse 81 01/13/2018 2:54 PM EDT Temperature - - Respiratory Rate - - Oxygen Saturation - - Inhaled Oxygen Concentration - - Weight 113.4 kg (250 lb) 01/13/2018 2:54 PM EDT Height 167.6 cm (5' 6) 01/13/2018 2:54 PM EDT Body Mass Index 40.35 01/13/2018 2:54 PM EDT Plan of Treatment Health Maintenance Due Date Last Done Comments HIV screen 2001 Hepatitis C Screening 2001 Hepatitis B vaccine (0-59 yrs) (1) 2002 Tetanus/Diphtheria/Pertussis Vaccines (1 - Tdap) 06/14 HPV test 2013 PAP Smear 2013 Breast Cancer Share Decision Needed 2023 Breast Cancer screening 2023 Covid-19 Vaccine ( season) 2024 Influenza (Flu) vaccine (1 o f 1 - Influenza standard series) 03/05/2024 Procedures Procedure Name Priority Date/Time Associated Diagnosis Comments MRI UPPER EXTREMITY JOINT WO CONTRAST RIGHT Routine 03/01/2024 3:45 PM EDT from Last 3 Months Results * MRI UPPER EXTREMITY JOINT WO CONTRAST RIGHT (03/01/2024 3:45 PM EDT) PT CLASS O RAD ADMITDTTM [id number] RAD PT RAD INFO [id number]^MCLAUG HLIN^BONG^S RAD EXAM DESC MRUEXJWOR^MR UPPER EXT ANY JOINT RT WO CONTRAST^RIS RAD WORKSTATION ID [id number] [facility] Anatomical Region Laterality Modality Other Impressions 03/01/2024 5:23 PM EDT 1. ??The pain marker overlies a focus of focal enlargement of the median nerve located proximal to the carpal tunnel. 2. ??The enlarged nerve and the nerve segment within the carpal tunnel have punctate bright T2 signal, concerning for nerve impingement. Consider EMG characterization if indicated. 3. ??Intact tendons and normal marrow signal. Thank you for letting us participate in the care of this patient. ??If you are a health care provider and have any questions regarding this report, please contact the number below. ??For patients who have questions please contact the health senior resident care director that requested your imaging first. ? Narrative 03/01/2024 5:23 PM EDT EXAMINATION: MR UPPER EXT ANY JOINT RT WO CONTRAST CLINICAL HISTORY: REASON: WRIST PAIN, RIGHT ADD'L INFO: VIA MEDICAID PORTAL CPT 14485 (MRI WRIST ??[id number] (MRI, , per ordering provider COMPARISON: Radiographs, February 02, 2024. TECHNIQUE: Noncontrast MRI of the RIGHT wrist was performed. FINDINGS: Pain marker: Overlies the palmar soft tissues overlying an enlarged median nerve. Median nerve: Fusiform enlargement of the median nerve proximal to the carpal tunnel. * ??Distal radius-the median nerve become large at 12 mm proximal to the radiocarpal joint line, series 3 image 27. * ??Proximal to carpal tunnel at radial carpal joint line-the enlarged nerve is 8 x 4 mm with heterogeneous punctate bright T2 signal, series 3 and 4 image 20. * ??At carpal tunnel-The nerves is flattened with bright T2 signal, series 3 image 11. * ??Distal to the carpal tunnel and at base of metacarpal:, the nerve is 5 x 3 mm.. Carpal tunnel: No mass lesion Flexor retinaculum: No interruption. Flexor tendons: No interruption. Peritendinous bright T2/fluid signal surrounds flexor pollicis and fifth flexor profunda tendons proximal to the carpal tunnel Guyon canal: Normal appearance. Intrinsic ligaments Scapholunate ligament: no tear. The volar component is irregular and heterogeneous representing ligament sprain. Lunotriquetral ligament: no tear Triangular fibrocartilage: no tear Extrinsic ligaments or joint capsule Volar: Intact radioscaphocapitate and radiolunate Dorsal: Intact dorsal intercarpal and radiotriquetral Extensor compartment no tear. Trace peritendinous fluid is surrounds tendons in the second extensor compartment and extensor carpi ulnaris [ECU]. Articulations Distal radioulnar joint: congruent Radio-carpal joint: Thumb carpometacarpal joint: Small osteophytes and mildly attenuated cartilage Scaphotrapezotrapezoidal joint: Subchondral degenerative cysts, osteophytes and attenuated cartilage covering the distal pole scaphoid. Pisiform-triquetral joint: Trace joint fluid. Bones: No acute fracture. Muscles: normal size and signal Procedure Note Erica Garcia MD - 03/01/2024 EXAMINATION: MR UPPER EXT ANY JOINT RT WO CONTRAST CLINICAL HISTORY: REASON: WRIST PAIN, RIGHT ADD'L INFO: VIA MEDICAIDPORTAL CPT 16213 (MRI WRIST [id number] (MRI, , per ordering provider COMPARISON: Radiographs, February 02, 2024. TECHNIQUE: Noncontrast MRI of the RIGHT wrist was performed. FINDINGS: Pain marker: Overlies the palmar soft tissues overlying an enlargedmedian nerve. Median nerve: Fusiform enlargement of the median nerve proximal to the carpal tunnel. * Distal radius-the median nerve become large at 12 mm proximal to the radiocarpal joint line, series 3 image 27. * Proximal to carpal tunnel at radial carpal joint line-the enlargednerve is 8 x 4 mm with heterogeneous punctate bright T2 signal, series 3 and 4 image20. * At carpal tunnel-The nerves is flattened with bright T2 signal, series3 image 11. * Distal to the carpal tunnel and at base of metacarpal:, the nerve is 5x 3 mm.. Carpal tunnel: No mass lesion Flexor retinaculum: No interruption. Flexor tendons: No interruption. Peritendinous bright T2/fluid signalsurrounds flexor pollicis and fifth flexor profunda tendons proximal to the carpaltunnel Guyon canal: Normal appearance. Intrinsic ligaments Scapholunate ligament: no tear. The volar component is irregular and heterogeneous representing ligament sprain. Lunotriquetral ligament: no tear Triangular fibrocartilage: no tear Extrinsic ligaments or joint capsule Volar: Intact radioscaphocapitate and radiolunate Dorsal: Intact dorsal intercarpal and radiotriquetral Extensor compartment no tear. Trace peritendinous fluid is surrounds tendons in the secondextensor compartment and extensor carpi ulnaris [ECU]. Articulations Distal radioulnar joint: congruent Radio-carpal joint: Thumb carpometacarpal joint: Small osteophytes and mildly attenuatedcartilage Scaphotrapezotrapezoidal joint: Subchondral degenerative cysts,osteophytes and attenuated cartilage covering the distal pole scaphoid. Pisiform-triquetral joint: Trace joint fluid. Bones: No acute fracture. Muscles: normal size and signal IMPRESSION 1. The pain marker overlies a focus of focal enlargement of the mediannerve located proximal to the carpal tunnel. 2. The enlarged nerve and the nerve segment within the carpal tunnelhave punctate bright T2 signal, concerning for nerve impingement. ConsiderEMG characterization if indicated. 3. Intact tendons and normal marrow signal. Thank you for letting us participate in the care of this patient. If youare a health care provider and have any questions regarding this report,please contact the number below. For patients who have questions please contactthe health senior resident care director that requested your imaging first. Electronically signed by: Erica Garcia MD, [facility]([phone]), at 03/01/2024 5:23 PM Bong Alvarenga MD PACS IMAGES from Last 3 Months Care Teams Food Preparer Relationship Specialty Start Date End Date Serafin Saucedo MD [address] [place] [phone] PCP - General General Internal Medicine 01/13/18
--- OUTSIDE RECORDS SUMMARY | 2024-05-25 12:44 | XMS_ITS | Encounter Summary ---
Author Organization [facility] Address [address] [place] [address] Care Team Providers Care Vice President Of Software Development Name Role Phone Rebeca Miller APRN Primary Care Provider [phone] Reason for Referral * Office Procedure (Routine/Next Available) - Authorization Not Required Specialty Diagnoses / [facility]erred To Contact Diagnoses Bilateral carpal tunnel syndrome Procedures EMG/NERVE CONDUCTION STUDY Venecia Vega MD [address] [place], [place] [address] [address] [place] [address] Phone: tel: fax: Referral ID Status Reason Start Date Expiration Date Visits Requested Visits Authorized [id number] Authorization Not Required Specialty Services Required 4 1 1 Reason for Visit * Reason Comments Telemedicine Video Visit Follow Up- Anky losing Spondylitis Encounter Details Date Type Department Care Team (Late st Contact Info) Description 10/26/2023 9:15 EDT Telemedicine [facility] Rheumatology [address] [place] [address] Venecia Vega MD [address] [place] [address] [address] [place] [address] Bilateral carpal tunnel syndrome (Primary [...] 07/07/2019 14:22 EST documented in this encounter Patient Instructions * Patient Instructions* Venecia Vega MD - 10/26/2023 9:15 EDT 1 Continue the Humira weekly 2 Hand pain suspicious for carpal tunnel Information and stretches Referral for [facility] area EMG to test hands. * Attachments The following attachments cannot be sent through Care Everywhere. * Carpal Tunnel Syndrome (Bahraini) * Carpal Tunnel Syndrome: Exercises (Bahraini) * EMG (Electromyogram) (Bahraini) documented in this encounter Progress Notes * Venecia Vega MD - 10/26/2023 0979 EDT [facility] Video Visit Today's visit was provided through [...] video Data reviewed with patient Labs at [facility], nl crp Nl renal function mild elevation [...] carpal tunnel Information and stretches Referral for [facility] area EMG to test hands. Labs just [...] Contact Info) Description 09/21/2024 8:15 EDT Telemedicine [facility] Rheumatology [address] [place], [place] [id number] Venecia Vega MD [address] [place] [address] [place] [address] Scheduled Orders Name Type Priority Associated Diagnoses Order Schedule EMG/NERVE CONDUCTION STUDY Procedures Routine/Next Available Bilateral carpal tunnel syndrome Expected: 01/25/2024 (Approximate), Expires: 10/25/2024 documented as of this encounter Visit Diagnoses Diagnosis Bilateral carpal tunnel syndrome- Primary Carpal tunnel syndrome Ankylosing spondylitis of sacral region ([facility]) High risk medication use Encounter for long-term (current) use of other medications Thrombocytosis Essential thrombocythemia documented in this encounter Discontinued Medications Medication Sig Discontinue Reason Start Date End Da te predniSONE (DELTASONE) 5 mg tabletIndications:Ankylo sing spondylitis of multiple sites in spine ([facility]) Take 3 Tablets by mouth daily. 07/23/2023 10/26/2023 documented as of this encounter Care Teams Vice President Of Software Development Relationship Specialty Start Date End Date Rebeca Miller APRN [address] [place] [phone] PCP - General Family Medicine - Primary Care 11/21/21 03/07/24 documented as of this encounter
--- OUTSIDE RECORDS SUMMARY | 2024-05-25 12:44 | XMS_ITS | Encounter Summary ---
Author Organization [facility] [place] [address] Care Team Providers Care Creeler Name Role Phone Serafin Saucedo MD Primary Care Provider [phone] Reason for Visit * Reason Comments Procedure * Surgical (Routine) - Specialty Diagnoses / Procedures Referred By Nishant garcia Referred To Contact Gastroenterology Diagnoses Elevated LFTs Procedures FibroScan Venecia Vega MD [address] [place] [address] [address] [place] [address] [facility] [address] [place] [address] Referral ID Status Reason Start Date Expiration Date V isits Requested Visits Authorized [id number] 12/10/2017 12/10/2018 1 1 Encounter Details Date Type Department Care Team (Latest Contact Info) Description 01/13/2018 2:30 PM EDT Procedure [place] [address] Maurice Olguin PA [address] [place] [address] [place] [address] Abnormal liver function tests; Fatty liver Social History Tobacco Use Types Packs/Day Years Used Date Smoking Tobacco: Never Smokeless Tobacco: Never Sex and Gender Information Value Date Recorded Sex Assigned at Not on file Gender Identity Not on file Sexual Orientation Not on file documented as [...] Mass Index 40.35 01/13/2018 2:54 PM EDT documented in this encounter Procedure Notes * Maurice Olguin PA - 01/13/2018 2:30 PM EDTAssociated Order(s): FIBROSCAN Procedure(s): FIBROSCAN Pre-Procedure Diagnose(s): Abnormal liver function tests; Fatty liver [facility] Liver Fibrosis Assessment Report 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 Discussed procedure including risks and potential complications. Questions answered. Patient verbalizes understanding and wishes to proceed with Fibroscan assessment. Patient was placed in the supine position with right arm in maximum abduction to allow optimal exposure of right lateral abdomen. Patient was briefly assessed. Testing was performed in the mid-axillary location. 50Hz Shear Wave pulses were applied and the resulting Shear Wave and Propagation Speed was detected with a 3.5MHz ultrasonic signal, using the Fibroscan probe. Skin to liver capsule distance and liver parenchyma were accessed during the entire examination with the Fibroscan probe. Patient was instructed to breathe normally and abstain from sudden movements during the procedure. At least ten Sheer Waves were produced; individual measurements of each Shear Wave were calculated. Patient tolerated the procedure well with no complications. Fibroscan Results: Median kPa: 7.4 Mean IQR: 12% (goal is <30 %) Number of valid measurements: 10 (at least 10 required) Number of invalid measurements: 0 Predicted fibrosis stage: F1 CAP (dB/m): 387 Estimated steatosis grade: 3/3 % hepatocytes affected: > 66% Interpretation: Based on this Fibroscan result, history, clinical examination and review of laboratory and radiological data, this patient likely has stage 1 liver fibrosis and grade 3 steatosis affecting greater than 66% of hepatocytes. Recommendations include weight loss (10-15% total body weight), portion control, and vitamin E 800 units daily if she is not diabetic. Vitamin E may be beneficial in nondiabetic patients with SHAH, which she may very well have although this is a histologic diagnosis. documented in this encounter Plan of Treatment Not on file documented as of this encounter Procedures Procedure Name Priority Date/Time Associated Diagnosis Comments [id number] Routine 01/13/2018 3:18 PM EDT Abnormal liver function tests Fatty liver documented in this encounter Results * [id number] (01/13/2018 3:18 PM EDT) Narrative Maurice Olguin PA - 01/13/2018 3:18 PM EDT Maurice Olguin PA ? 01/13/2018 ??3:18 PM [facility] Liver Fibrosis Assessment Report Indication: ?? 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 Discussed procedure including risks and potential complications. Questions answered. Patient verbalizes understanding and wishes to proceed with Fibroscan assessment. Patient was placed in the supine position with right arm in maximum abduction to allow optimal exposure of right lateral abdomen. Patient was briefly assessed. Testing was performed in the mid-axillary location. 50Hz Shear Wave pulses were applied and the resulting Shear Wave and Propagation Speed was detected with a 3.5MHz ultrasonic signal, using the Fibroscan probe. Skin to liver capsule distance and liver parenchyma were accessed during the entire examination with the Fibroscan probe. Patient was instructed to breathe normally and abstain from sudden movements during the procedure. At least ten Sheer Waves were produced; individual measurements of each Shear Wave were calculated. Patient tolerated the procedure well with no complications. Fibroscan Results: Median kPa: 7.4 Mean IQR: 12% (goal is <30 %) Number of valid measurements: 10 (at least 10 required) Number of invalid measurements: 0 Predicted fibrosis stage: F1 CAP (dB/m): 387 Estimated steatosis grade: 3/3 % hepatocytes affected: > 66% Interpretation: Based on this Fibroscan result, history, clinical examination and review of laboratory and radiological data, this patient likely has stage 1 liver fibrosis and grade 3 steatosis affecting greater than 66% of hepatocytes. Recommendations include weight loss (10-15% total body weight), portion control, and vitamin E 800 units daily if she is not diabetic. Vitamin E may be beneficial in nondiabetic patients with SHAH, which she may very well have although this is a histologic diagnosis. Amairani Radford MD PROCEDURE/MINOR SURG ICAL ORDERABLES documented in this encounter Visit Diagnoses Diagnosis Abnormal liver function tests Other abnormal blood chemistry Fatty liver Other chronic nonalcoholic liver disease documented in this encounter Care Teams Creeler Relationship Specialty Start Date End Date Serafin Saucedo MD [address] [place] [phone] PCP - General General Internal Medicine 01/13/18 documented as of this encounter
--- OUTSIDE RECORDS SUMMARY | 2024-05-25 12:44 | XMS_ITS | Encounter Summary ---
Author Organization [facility] Address [address] [place] [address] Care Team Providers Care Boston Cutter Name Role Phone PaulRebeca juan George AGUILERA Primary Care Provider Encounter Details Date Type Department Care Team (Late st Contact Info) Description 04/23/2023 Specialty Pharmacy [facility] Amb[facility] - [facility] [address] [place] [address] [place], [facility] Social History Tobacco Use Types [...] Contact Info) Description 09/21/2024 8:15 EDT Telemedicine [facility] Rheumatology [address] [place] [address] Venecia Vega MD [address] [facility] [place] [address] documented as of this encounter Visit Diagnoses Not on filedocumented in this encounter Care Teams Boston Cutter Relationship Specialty Start Date End Date Rebeca Miller APRN [address] [place] [address] PCP - General Family Medicine - Primary Care 11/21/21 03/07/24 documented as of this encounter
--- OUTSIDE RECORDS SUMMARY | 2024-05-25 12:44 | XMS_ITS | Encounter Summary ---
Author Organization [facility] [place] [address] Care Team Providers Care Food Service Specialist Name Role Phone Serafin Saucedo MD Primary Care Provider [phone] Encounter Details Date Type Department Care Team (Late st Contact Info) Description 03/01/2024 Interpretation Only [facility] in [facility] [address] [place] [address] Bong Alvarenga MD [address] [place] [address] Social History Tobacco Use Types Packs/Day Years Used Date Smoking Tobacco: Never Smokeless Tobacco: Never Sex and Gender Information Value Date Recorded Sex Assigned at Not on file Gender Identity Not on file Sexual Orientation Not on file documented as of this encounter Plan of Treatment Not on file documented as of this encounter Procedures Procedure Name Priority Date/Time Associated Diagnosis Comments MRI UPPER EXTREMITY JOINT WO CONTRAST RIGHT Routine 03/01/2024 3:45 PM EDT documented in this encounter Results * MRI UPPER EXTREMITY JOINT WO CONTRAST RIGHT (03/01/2024 3:45 PM EDT) PT CLASS O RAD ADMITDTTM [id number] RAD PT RAD INFO [id number]^MCLAUG HLIN^BONG^S RAD EXAM DESC MRUEXJWOR^MR UPPER EXT ANY JOINT RT WO CONTRAST^RIS RAD WORKSTATION ID [id number] RAD Anatomical Region Laterality Modality Other Impressions 03/01/2024 [...] who have questions please contact the health healthcare manager that requested your imaging first. ? Electronically signed by: Erica Garcia MD, [facility] ([phone]), at 03/01/2024 5:23 PM Narrative 03/01/2024 5:23 PM EDT EXAMINATION: MR UPPER EXT ANY JOINT RT WO CONTRAST CLINICAL HISTORY: REASON: WRIST PAIN, RIGHT ADD'L INFO: VIA MEDICAID PORTAL CPT 38291 (MRI WRIST ??26022 (MRI, , per ordering provider COMPARISON: Radiographs, [...] PAIN, RIGHT ADD'L INFO: VIA MEDICAIDPORTAL CPT 80981 (MRI WRIST 44723 (MRI, , per ordering provider COMPARISON: Radiographs, [...] patients who have questions please contactthe health healthcare manager that requested your imaging first. Electronically signed by: Erica Garcia MD, [facility]([phone]), at 03/01/2024 5:23 PM Bong Alvarenga MD PACS IMAGES documented in this encounter Visit Diagnoses Not on filedocumented in this encounter Care Teams Food Service Specialist Relationship Specialty Start Date End Date Serafin Saucedo MD [address] [place] [phone] PCP - General General Internal Medicine 01/13/18 documented as of this encounter
--- OUTSIDE RECORDS SUMMARY | 2024-05-25 12:44 | XMS_ITS | Encounter Summary ---
Author Organization [facility] Address [address] [place] [address] Care Team Providers Care Agricultural Sales Representative Name Role Phone PaulRebeca George AGUILERA Primary Care Provider [phone] Encounter Details Date Type Department Care Team (Latest Contact Info) Description 11/11/2023 Specialty Pharmacy [facility] Specialty Pharmacy [address] [place], [place] [address] [place], [facility] Refill Coordination Outreach for Rheumatology, Clinical Follow-up [...] documented in this encounter Progress Notes * Joanna Jurado [...] Contact Info) Description 09/21/2024 8:15 EDT Telemedicine [facility] Rheumatology [address] [place], [place] [phone] Venecia Vega MD [address] [facility] [address] [place] [address] documented as of this encounter Visit Diagnoses Not on filedocumented in this encounter Care Teams Agricultural Sales Representative Relationship Specialty Start Date End Date Rebeca Miller APRN [address] [place] [phone] PCP - General Family Medicine - Primary Care 11/21/21 03/07/24 documented as of this encounter
--- OUTSIDE RECORDS SUMMARY | 2024-05-25 12:44 | XMS_ITS | Encounter Summary ---
Author Organization [facility] Address [address] [place] [address] Care Team Providers Care Personal Banking Assistant Name Role Phone Paul Rebeca George AGUILERA Primary Care Provider Encounter Details Date Type Department Care Team (Latest Contact Info) Description 07/16/2023 Specialty Pharmacy [facility] Specialty Pharmacy [address] [place], [place] [address] [place], [place], [facility] Refill Coordination Outreach for Rheumatology [...] [facility] Rheumatology [address] [place] [address] Venecia Vega MD [address] [facility] [address] [place] [address] documented as of this encounter Visit Diagnoses Not on filedocumented in this encounter Care Teams Personal Banking Assistant Relationship Specialty Start Date End Date Rebeca Miller APRN [address] [place] [phone] PCP - General Family Medicine - Primary Care 11/21/21 03/07/24 documented as of this encounter
--- OUTSIDE RECORDS SUMMARY | 2024-05-25 12:44 | XMS_ITS | Encounter Summary ---
Author Organization [facility] Address [address] [place] [address] Care Team Providers Care Resolution Agent Name Role Phone Rebeca Miller George AGUILERA Primary Care Provider [phone] Encounter Details Date Type Department Care Team (Latest Contact Info) Description 10/12/2023 Specialty Pharmacy [facility] Specialty Pharmacy [address] [place], [place] [address] [place] [facility] Refill Coordination Outreach for Rheumatology Social [...] Contact Info) Description 09/21/2024 8:15 EDT Telemedicine [facility] Rheumatology [address] [place] [address] Venecia Vega MD [address] [facility] [address] [place] [address] documented as of this encounter Visit Diagnoses Not on filedocumented in this encounter Care Teams Resolution Agent Relationship Specialty Start Date End Date Rebeca Miller APRN [address] [place] [address] PCP - General Family Medicine - Primary Care 11/21/21 03/07/24 documented as of this encounter
--- OUTSIDE RECORDS SUMMARY | 2024-05-25 12:44 | XMS_ITS | Encounter Summary ---
Author Organization [facility] Address [address] [place] [address] Care Team Providers Care Credit Risk Modeler Name Role Phone Corine Coulter Primary Care Provider [phone] Reason for Visit * Reason Onset Date Comments Follow-up 03/08/2024 Medications Refill 03/08/2024 Encounter Details Date Type Department Care Team (Late st Contact Info) Description 03/08/2024 Telephone [facility] [address] [place] [address] Pk Stringer RN Follow-up; Medications Refill Social [...] Refills Last Filled Start Date End Date hydroxychloroquine (PLAQUENIL) 200 mg tabletIndications: Ankylosing spondylitis of sacral region (HCC-CMS) Take 1 Tablet by mouth 2 times daily. 180 Tablet 3 03/08/2024 03/23/2024 documented in this encounter Miscellaneous Notes * Addendum Note - Pk Stringer RN - 03/08/2024 0957 EDTAddended by: PK STRINGER on: 03/08/2024 09:57 Modules accepted: Orders * Telephone Encounter - Pk Stringer RN - 03/08/2024 0956 EDT Last visit note reviewed; follow up noted as recommended and eye exam up to date. Hydroxychloroquine refill sent per protocol. Order for CRP faxed internally to [facility]. * Telephone Encounter - Pk Stringer RN - 03/08/2024 0908 EDT We received a faxed refill request for hydroxychloroquine from [facility] in [place]. Last visit note of 10/26/23 reviewed and patient was to follow up in 3 months but this was not scheduled. Kanyogavin schedule follow up please and when you call her, can you ask when her last eye exam was for monitoring for hydroxychloroquine? Once she is scheduled, please send this back to me so I can refill hydroxychloroquine. Thank you. documented in this encounter Plan of Treatment Upcoming Encounters Date Type Department Care Team (Late st Contact Info) Description 09/21/2024 8:15 EDT Telemedicine [facility] Rheumatology [address] [place] [address] Venecia Vega MD [address] [facility] [address] [place] [phone] Scheduled Orders Name Type Priority Associated Diagnoses [...] documented as of this encounter Care Teams Credit Risk Modeler Relationship Specialty Start Date End Date Corine Coulter [address] [place] [address] PCP - General Family Medicine - Primary Care 03/08/24 documented as of this encounter
--- OUTSIDE RECORDS SUMMARY | 2024-05-25 12:44 | XMS_ITS | Encounter Summary ---
Author Organization [facility] Address [address] [place] [address] Care Team Providers Care Workforce Consultant Name Role Phone Rebeca Miller George AGUILERA Primary Care Provider [phone] Corine Coulter Primary Care Provider [phone] Reason for Visit * Reason Onset Date Comments Pre-visit Orders 06/24/2023 I called pt reg arding eye exams. She sees Dr. Vega, and states that [facility] says they have no standing orders for her upcoming blood work. This commercial insurance underwriter isn't sure what the standing orders are for. Kindly advise. Encounter Details Date Type Department Care Team (Late st Contact Info) Description 06/24/2023 Telephone [facility] [address] [place] [address] Venecia Vega MD [address] [place] [address] [place] [address] Pre-visit Orders (I called pt regarding eye exams. She sees Dr. Vega, and states that [facility] says they have no standing orders for her upcoming blood work. This commercial insurance underwriter isn't sure what the standing orders are [...] 07/07/2019 14:22 EST documented in this encounter Miscellaneous Notes * Telephone Encounter - Katt Stringer RN - 06/24/2023 2936 EST Orders placed for labs needed prior to next visit. Please fax to [facility]. Iron level is not included but the CBC does check for anemia and if anemia is present, an iron level may be added onto the the existing lab specimen. documented in this encounter Plan of Treatment Upcoming Encounters Date Type Department Care Team (Late st Contact Info) Description 09/21/2024 8:15 EDT Telemedicine [facility] Rheumatology [address] [place] [address] Venecia Vega MD [address] [facility] [address] [place] [address] Scheduled Orders Name Type Priority Associated Diagnoses Orde r Schedule COMPLETE BLOOD COUNT AND DIFFERENTIAL Lab Routine Ankylosing spondylitis of thoracolumbar region ([facility]) 2 Occurrences starting 06/24/2023 until 06/24/2024 COMPREHENSIVE METABOLIC PANEL (CMP) Lab Routine Ankylosing spondylitis of thoracolumbar region ([facility]) 2 Occurrences starting 06/24/2023 until 06/24/2024 documented as of this encounter Visit Diagnoses Diagnosis Ankylosing spondylitis of thoracolumbar region ([facility])- Primary Ankylosing spondylitis documented in this encounter Care Teams Workforce Consultant Relationship Specialty Start Date End Date Rebeca Miller APRN [address] [place] [phone] PCP - General Family Medicine - Primary Care 11/21/21 03/07/24 Corine Coulter [address] [place] [phone] PCP - General Family Medicine - Primary Care 03/08/24 documented as of this encounter
--- OUTSIDE RECORDS SUMMARY | 2024-05-25 12:44 | XMS_ITS | Encounter Summary ---
Author Organization [facility] Address [address] [place] [address] Care Team Providers Care Bridge Manager Name Role Phone PaulRebeca juan George AGUILERA Primary Care Provider [phone] Encounter Details Date Type Department Care Team (Late st Contact Info) Description 02/26/2023 Specialty Pharmacy [facility] Ambulatory Pharmacy - [facility] [address] [place] [address] [place], [facility] Social History [...] Info) Description 09/21/2024 8:[address] [facility] Rheumatology [address] [place] [address] Venecia Vega MD [address] [facility] [place] [address] documented as of this encounter Visit Diagnoses Not on filedocumented in this encounter Care Teams Bridge Manager Relationship Specialty Start Date End Date Rebeca Miller APRN [address] [place] [address] PCP - General Family Medicine - Primary Care 11/21/21 03/07/24 documented as of this encounter
--- OUTSIDE RECORDS SUMMARY | 2024-05-25 12:44 | XMS_ITS | Encounter Summary ---
Author Organization [facility] Address [address] [place] [address] Care Team Providers Care Card Grader Name Role Phone PaulRebeca juan George AGUILERA Primary Care Provider Encounter Details Date Type Department Care Team (Latest Contact Info) Description 05/21/2023 Specialty Pharmacy [facility] Specialty Pharmacy [address] [place], [place] [address] [place] [facility] Refill Coordination Outreach (1 time [...] Contact Info) Description 09/21/2024 8:15 EDT Telemedicine [facility] Rheumatology [address] [place] [address] Venecia Vega MD [address] [facility] [address] [place] [phone] documented as of this encounter Visit Diagnoses Not on filedocumented in this encounter Care Teams Card Grader Relationship Specialty Start Date End Date Rebeca Miller APRN [address] [place] [phone] PCP - General Family Medicine - Primary Care 11/21/21 03/07/24 documented as of this encounter
--- OUTSIDE RECORDS SUMMARY | 2024-05-25 12:44 | XMS_ITS | Encounter Summary ---
Author Organization [facility] [place] [address] Care Team Providers Care Automatic Vulcanizing Lead Operator Name Role Phone Serafin Saucedo MD Primary Care Provider [phone] Encounter Details Date Type Department Care Team (Late st Contact Info) Description 01/21/2024 Interpretation Only [facility] in [facility] [address] [place] [address] Daniele Velasquez MD [address] [place] [address] Social History Tobacco Use Types Packs/Day [...] Priority Date/Time Associated Diagnosis Comments XR FOOT MIN 3 VIEWS RIGHT STAT 01/21/2024 2:53 PM EDT documented in this encounter Results * XR Foot Min 3 views Right (Generic) (01/21/2024 2:53 PM EDT) PT CLASS E RAD ADMITDTTM [id number] RAD PT RAD INFO [id number]^CROW JOHNSON^DANIELE RAD EXAM DESC XRFTMTVR^XR FOOT 3V RT^RIS RAD WORKSTATION ID [id number] RAD Anatomical Region Laterality Modality Foot Right Radiographic Angelia ging Impressions 01/21/2024 3:02 PM EDT Age-indeterminate small avulsion fracture at the tip of the lateral malleolus. Correlate clinically. No other fracture or dislocation. Thank you for letting us participate in the care of this patient. ??If you are a health care provider and have any questions regarding this report, please contact the number below. ??For patients who have questions please contact the health resident care assistant that requested your imaging first. ? Narrative 01/21/2024 3:02 PM EDT EXAMINATION: XR FOOT 3V RT CLINICAL HISTORY: ??Reason for Extrem: ??Trauma ??Add'l Info: TECHNIQUE: 3 views RIGHT foot COMPARISON: None FINDINGS: Small curvilinear bone fragment adjacent to the tip the lateral malleolus on the AP view which is consistent with age-indeterminate avulsion injury. No other fracture or dislocation. Normal joint spacing. Normal alignment at tarsometatarsal joints on this nonweightbearing exam. Posterior calcaneal spur. Procedure Note Milton Zhang MD - 01/21/2024 EXAMINATION: XR FOOT 3V RT CLINICAL HISTORY: Reason for Extrem: Trauma Add'l Info: TECHNIQUE: 3 views RIGHT foot COMPARISON: None FINDINGS: Small curvilinear bone fragment adjacent to the tip the lateral malleoluson the AP view which is consistent with age-indeterminate avulsion injury. Noother fracture or dislocation. Normal joint spacing. Normal alignment at tarsometatarsal joints on this nonweightbearing exam. Posterior calcanealspur. IMPRESSION Age-indeterminate small avulsion fracture at the tip of the lateralmalleolus. Correlate clinically. No other fracture or dislocation. Thank you for letting us participate in the care of this patient. If youare a health care provider and have any questions regarding this report,please contact the number below. For patients who have questions please contactthe health resident care assistant that requested your imaging first. Daniele Velasquez MD IMG DX ORDERABLES documented in this encounter Visit Diagnoses Not on filedocumented in this encounter Care Teams Automatic Vulcanizing Lead Operator Relationship Specialty Start Date End Date Serafin Saucedo MD [address] [place] [phone] PCP - General General Internal Medicine 01/13/18 documented as of this encounter
--- OUTSIDE RECORDS SUMMARY | 2024-05-25 12:44 | XMS_ITS | Encounter Summary ---
Author Organization [facility] Address [address] [place] [address] Care Team Providers Care Equity Research Associate Name Role Phone Corine Coulter Primary Care Provider Encounter Details Date Type Department Care Team (Late st Contact Info) Description 03/16/2024 Abstract [facility] [address] [place] [address] Víctor Chu RN Social History Tobacco Use Types Packs/Day [...] documented in this encounter Progress Notes * Víctor Chu RN - 03/16/2024 1258 EDT Received DMARD labs from [facility]. Results entered in [employer]. documented in this encounter Plan of Treatment Upcoming Encounters Date Type Department Care Team (Late st Contact Info) Description 09/21/2024 8:15 EDT Telemedicine [facility] Rheumatology [address] [place] [address] Venecia Vega MD [address] [facility] [address] [place] [address] documented as of this encounter Procedures Procedure Name Priority Date/Time Associated Diagnosis Comments COMPLETE BLOOD COUNT AND DIFFERENTIAL Routine 03/14/2024 C REACTIVE PROTEIN Routine 03/14/2024 COMPREHENSIVE METABOLIC PANEL (CMP) Routine 03/14/2024 documented in this encounter Results * (ABNORMAL) COMPREHENSIVE METABOLIC PANEL (CMP) (03/14/2024) [...] & BLOOD GAS OR DERABLES Final Result Performing Organization Address City/[facility]/ZIP Co de Phone Number EXTERNAL LAB * C REACTIVE PROTEIN (03/14/2024) C-Reactive Protein, External 0.83 EXTERNAL LAB Blood VENOUS BLOOD / Unknown 03/14/2024 Venecia Vega MD CHEMISTRY & BLOOD GAS OR DERABLES Edited Result - Final EXTERNAL LAB * (ABNORMAL) COMPLETE BLOOD COUNT AND [...] PROBE ORD ERABLES Final Result EXTERNAL LAB documented in this encounter Visit Diagnoses Not on filedocumented in this encounter Care Teams Equity Research Associate Relationship Specialty Start Date End Date Corine Coulter [address] [phone] PCP - General Family Medicine - Primary Care 03/08/24 documented as of this encounter
--- OUTSIDE RECORDS SUMMARY | 2024-05-25 12:44 | XMS_ITS | Encounter Summary ---
Author Organization [facility] [place] [address] Care Team Providers Care Behavioral Services Tech Name Role Phone Serafin Saucedo MD Primary Care Provider [phone] Encounter Details Date Type Department Care Team (Late st Contact Info) Description 02/02/2024 Interpretation Only [facility] in [address] [phone] [place] [address] Social History Tobacco Use Types [...] Name Priority Date/Time Associated Diagnosis Comments XR WRIST 3 VIEWS RIGHT Routine 02/02/2024 3:38 PM EDT documented in this encounter Results * XR Wrist 3 Views Right (02/02/2024 3:38 PM EDT) PT CLASS O RAD ADMITDTTM [id number] RAD PT RAD INFO [id number]^LAMELL ^MAGDA^L RAD EXAM DESC [id number]^XR WRIST 3V RT^RIS RAD WORKSTATION ID [id number] RAD Anatomical Region Laterality Modality Right Radiographic Angelia ging Narrative 02/02/2024 5:02 PM EDT EXAMINATION: XR WRIST 3V RT CLINICAL HISTORY: [...] who have questions please contact the health care coordinator that requested your imaging first. ? Electronically signed by: Bruce Davis MD, [facility] ([phone]), at 02/02/2024 5:02 PM Procedure Note Bruce Davis MD - 02/02/2024 EXAMINATION: XR WRIST 3V RT CLINICAL HISTORY: REASON: WRIST PAIN, RIGHT ADD'L INFO: PA, LAT, CARPALTUNNEL VIEW TECHNIQUE: 3 views RIGHT wrist COMPARISON: None FINDINGS: Alinement at the carpus is anatomic. Joint spaces preserved. Osseoustexture normal. The tunnel view demonstrates no definable calcified or osseous mass withinthe carpal tunnel. Follow-up with MRI may be helpful in evaluating for softtissue process within the carpal tunnel if symptoms persist Thank you for letting us participate in the care of this patient. If youare a health care provider and have any questions regarding this report,please contact the number below. For patients who have questions please contactthe health care coordinator that requested your imaging first. Magda RENEE IMG DX ORDERABLES documented in this encounter Visit Diagnoses Not on filedocumented in this encounter Care Teams Behavioral Services Tech Relationship Specialty Start Date End Date Serafin Saucedo MD [address] [place] [phone] PCP - General General Internal Medicine 01/13/18 documented as of this encounter
--- OUTSIDE RECORDS SUMMARY | 2024-05-25 12:44 | XMS_ITS | Encounter Summary ---
Author Organization [facility] Address [address] [place] [address] Care Team Providers Care Hand Profiler Name Role Phone Paul Rebeca George AGUILERA Primary Care Provider Reason for Visit * Reason Comments Follow-up F/u Encounter Details Date Type Department Care Team (Late st Contact Info) Description 07/07/2023 15:15 EST Telemedicine [facility] [place] [address] [place] [address] Venecia Vega MD [address] [facility] [address] [place] [address] Nausea (Primary Dx); Ankylosing spondylitis of multiple sites in spine ([facility]); 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 8 Tablet 07/07/2023 07/13/2023 documented in this encounter Progress Notes * Venecia Vega MD - 07/07/2023 1515 EST [facility] [place] Today's visit was [...] spondylitis of multiple sites in spine ([facility]) Humira on hold due to acute bronchitis/post influenza syndrome Resume when recovers-approx 1 week. 3. 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
--- OUTSIDE RECORDS SUMMARY | 2024-05-25 12:44 | XMS_ITS | Encounter Summary ---
Author Organization [facility] Address [address] [place] [address] Care Team Providers Care Parachute Panel Joiner Name Role Phone Paul Rebeca Vazquez APRN Primary Care Provider [phone] Encounter Details Date Type Department Care Team (Latest Contact Info) Description 08/12/2023 Specialty Pharmacy [facility] [address] [place], [place] [phone] [place], [place] [facility] Refill Coordination Outreach for Rheumatology, One-time Clinical [...] Contact Info) Description 09/21/2024 8:15 EDT Telemedicine [facility] Rheumatology [address] [place], [place] [phone] Venecia Vega MD [address] [facility] [address] [place] [phone] documented as of this encounter Visit Diagnoses Not on filedocumented in this encounter Care Teams Parachute Panel Joiner Relationship Specialty Start Date End Date Rebeca Miller APRN [address] [place] [phone] PCP - General Family Medicine - Primary Care 11/21/21 03/07/24 documented as of this encounter
--- OUTSIDE RECORDS SUMMARY | 2024-05-25 12:44 | XMS_ITS | Encounter Summary ---
Author Organization [facility] Address [address] [place] [address] Care Team Providers Care Human Resources Clerk Name Role Phone Rebeca Miller George AGUILERA Primary Care Provider [phone] Encounter Details Date Type Department Care Team (Latest Contact Info) Description 06/17/2023 Specialty Pharmacy [facility] [address] [place], [place] [address] [place] Refill Coordination Outreach for Rheumatology Social [...] Contact Info) Description 09/21/2024 8:15 EDT Telemedicine [facility] Rheumatology [address] [place] [address] Venecia Vega MD [address] [facility] [address] [place] [address] documented as of this encounter Visit Diagnoses Not on filedocumented in this encounter Care Teams Human Resources Clerk Relationship Specialty Start Date End Date Rebeca Miller APRN [address] [place] [phone] PCP - General Family Medicine - Primary Care 11/21/21 03/07/24 documented as of this encounter
--- OUTSIDE RECORDS SUMMARY | 2024-05-25 12:44 | XMS_ITS | Encounter Summary ---
Author Organization [facility] Address [address] [place] [address] Care Team Providers Care Party Plan Sales Unit Advisor Name Role Phone Rebeca Miller George AGUILERA Primary Care Provider [phone] Encounter Details Date Type Department Care Team (Latest Contact Info) Description 01/13/2024 Specialty Pharmacy [facility] [address] [place], [place] [address] [place] [facility] Refill Coordination Outreach for Rheumatology [...] EDT Telemedicine [facility] Rheumatology [address] [place] [address] Venecia Vega MD [address] [facility] [address] [place] [address] documented as of this encounter Visit Diagnoses Not on filedocumented in this encounter Care Teams Party Plan Sales Unit Advisor Relationship Specialty Start Date End Date Rebeca Miller APRN [address] [place] [phone] PCP - General Family Medicine - Primary Care 11/21/21 03/07/24 documented as of this encounter
--- OUTSIDE RECORDS SUMMARY | 2024-05-25 12:44 | XMS_ITS | Encounter Summary ---
Author Organization [facility] Address [address] [place] [address] Care Team Providers Care Electrician Marine Name Role Phone Corine Coulter Primary Care Provider [phone] Reason for Visit * Reason Comments Follow-up Bilateral carpal link roro syndrome Encounter Details Date Type Department Care Team (Late st Contact Info) Description 03/23/2024 11:15 EDT Telemedicine [facility] Rheumatology [address] [place], [place] [address] Venecia Vega MD [address] [facility] [address] [place] [address] Carpal tunnel syndrome of right wrist (Primary Dx); Jaw pain; Ankylosing spondylitis of sacral region (HCC-CMS) Social History Tobacco Use Types Packs/Day [...] - Inhaled Oxygen Concentration - - Weight 120.2 kg (265 lb) 03/23/2024 1055 EDT Height 170.2 cm (5' 7) 03/23/2024 1055 EDT Body Mass Index 41.5 03/23/2024 1055 EDT documented in this encounter Functional Status [...] * Patient Instructions* Venecia Vega MD - 03/23/2024 11:15 EDT 1 Continue Humira weekly and hydroxychlorquine. 2 Flu and covid vaccines, consider RSV vaccine as well 3 If you get covid/get sick please call our office or your pcp for advice 4 Ok to take the tylenol 1000 mg up to three times a day and ibuprofen 800 mg three times a day as needed Labs ok, not concerned about the minor ast/alt changes in liver tests Next labs in 6 months. Call if you have a flare up documented in this encounter Ordered Prescriptions Prescription Sig Dispense Quantity Refills Last Filled Start Date End Date hydroxychloroquine (PLAQUENIL) 200 mg tabletIndications: Ankylosing spondylitis of sacral region (HCC-CMS) Take 1 Tablet by mouth daily. 90 Tablet 3 03/23/2024 gabapentin (NEURONTIN) 300 mg capsuleIndications :Jaw pain Take 1 Capsule by mouth 2 times daily. 180 Capsule 1 03/23/2024 hydroxychloroquine (PLAQUENIL) 200 mg tabletIndications: Ankylosing spondylitis of sacral region (HCC-CMS) Take 1 Tablet by mouth daily. 90 Tablet 3 03/23/2024 4 gabapentin (NEURONTIN) 300 mg capsuleIndications :Jaw pain Take 1 Capsule by mouth 2 times daily. 180 Capsule 1 03/23/2024 4 documented in this encounter Progress Notes * Venecia Vega MD - 03/23/2024 1115 EDT [facility] Video Visit Today's visit was provided [...] auxiliary staff: yes. Subjective: Chief Complaint(s): Follow-up (Bilateral carpal tunnel syndrome) HPI: Arabella Ojeda feels pretty well today Last visit My chart visit October 2023, doing well with weekly Humira, had pain in hands ? CTS, referred for emg[facility] Interval CTS release several weeks ago at [facility]. Doing well. Wound ok. Left hand also needs CTS release. Likely in a few weeks Feels knees are good. Some ankle pain. Working to lose weight Kids in school, sick with colds. So far she is well Med side effects -able to do injections of Humira, supports. Needle phobia managed Labs -reviewed, ? If post op use of tylenol and ibuprofen led to mild increase ast/alt She has no etoh use. ROS No recent illness. I have reviewed patient's tobacco history: reports that she has never smoked. She has never used smokeless tobacco. I have reviewed current problem list and current medications. Objective: Examination: Home Vitals: Ht 170.2 cm (67) Wt (!) 120.2 kg (265 lb) BMI 41.50 kg/m?? Pertinent exam findings: appears well, neck supple and mood and affect appropriate no synovitis wrists or hands. Localizes dysthesia to right hand phalanges. NO thenar atrophy on video Data reviewed with patient Labs at [facility], nl crp Nl renal function mild elevation ast/aslt, refer to scans Prior note. Assessment & Plan: Arabella Ojeda is a 38 y.o. female with a history of seronegative spondyloathropathy. Doing well on Humira weekly She has recently succeed with right ct release and is anticipating a left CT release Plan as below. 1. Carpal tunnel syndrome of right wrist 2. Jaw pain gabapentin (NEURONTIN) 300 mg capsule DISCONTINUED: gabapentin (NEURONTIN) 300 mg capsule 3. Ankylosing spondylitis of sacral region (HCC-CMS) hydroxychloroquine (PLAQUENIL) 200 mg tablet DISCONTINUED: hydroxychloroquine (PLAQUENIL) 200 mg tablet Hydroxychloroquine 200 mm increase to bid Humira 40 mg /week Patient Instructions 1 Continue Humira weekly 2 Flu and covid vaccines, consider RSV vaccine as well 3 If you get covid/get sick please call our office or your pcp for advice 4 Ok to take the tylenol 1000 mg up to three times a day and ibuprofen 800 mg three times a day as needed Labs ok, not concerned about the minor ast/alt changes in liver tests Next labs in 6 months. Call if you have a flare up Labs just prior cbc,c mp crp 6 months rtc I spent a total of 30 minutes [...] Contact Info) Description 09/21/2024 8:15 EDT Telemedicine [facility] Rheumatology [address] [place] [address] Venecia Vega MD [address] [facility] [address] [place] [phone] documented as of this encounter Visit Diagnoses Diagnosis Carpal tunnel syndrome of right wrist- Primary Carpal tunnel syndrome Jaw pain Ankylosing spondylitis of sacral region (HCC-CMS) documented in this encounter Discontinued Medications Medication Sig Discontinue Reason Start Date End Da te azithromycin (ZITHROMAX) 250 mg tablet Take 1 Tablet by mouth daily. Therapy completed 07/04/2023 03/23/2024 fluconazole (DIFLUCAN) 150 mg tabletIndications:Vagi nal yeast infection 1 tablet for vaginal yeast infection may repeat x 1 for recurrence after 72 hours Patient Stopped Taking 07/23/2023 03/23/2024 oseltamivir (TAMIFLU) 75 mg capsule Take 1 Capsule by mouth 2 times daily. Therapy completed 06/30/2023 03/23/2024 gabapentin (NEURONTIN) 300 mg capsuleIndications:Jaw pain Take 1 Capsule by mouth 2 times daily. Reorder 07/27/2023 03/23/2024 hydroxychloroquine (PLAQUENIL) 200 mg tabletIndications:Anky losing spondylitis of sacral region (HCC-CMS) Take 1 Tablet by mouth 2 times daily. Reorder 03/08/2024 03/23/2024 gabapentin (NEURONTIN) 300 mg capsuleIndications:Jaw pain Take 1 Capsule by mouth 2 times daily. 03/23/2024 03/23/2024 hydroxychloroquine (PLAQUENIL) 200 mg tabletIndications:Anky losing spondylitis of sacral region (HCC-CMS) Take 1 Tablet by mouth daily. Reorder 03/23/2024 03/23/2024 documented as of this encounter Historical Medications * This list may reflect changes made after this encounter. oseltamivir (TAMIFLU) 75 mg capsule Take 1 Capsule by mouth 2 times daily. 06/30/2023 03/23/2024 azithromycin (ZITHROMAX) 250 mg tablet Take 1 Tablet by mouth daily. 07/04/2023 03/23/2024 added in this encounter Care Teams Electrician Marine Relationship Specialty Start Date End Date Shaye Coultergail [address] [phone] PCP - General Family Medicine - Primary Care 03/08/24 documented as of this encounter
--- OUTSIDE RECORDS SUMMARY | 2024-05-25 12:44 | XMS_ITS | Referral Summary ---
Author Organization [facility] Address [address] [place] [address] Care Team Providers Care Pediatric Nurse Name Role Phone Corine Coulter Primary Care Provider [phone] Encounters Date Type Department Care Team Description 05/04/2024 Specialty Pharmacy [facility] [address] [place] [address] [phone] Van Phelps RPH Refill Coordination Outreach for Rheumatology 04/06/2024 Specialty Pharmacy [facility] [address] [place] [address] [phone] Van Phelps RPH Refill Coordination Outreach for Rheumatology 03/23/2024 11:15 EDT Telemedicine [facility] Rheumatology [address] [place] [address] Venecia Vega MD Carpal tunnel syndrome of right wrist (Primary Dx); Jaw pain; Ankylosing spondylitis of sacral region ([facility]) 03/16/2024 Abstract [facility] Rheumatology [address] [id number] Víctor Chu RN 03/08/2024 Telephone [facility] Rheumatology [address] [place] [address] Katt Stringer RN Follow-up; Medications Refill 03/07/2024 Specialty Pharmacy [facility] [address] [place] [address] [phone] Van Phelps RPH Refill Coordination Outreach for Rheumatology, Clinical Follow-up (2x annually) for Rheumatology from Last 3 Months Allergies No known active allergies Medications fluticasone propionate (FLONASE) 50 mcg/actuation nasal sprayIndications :Recurrent acute serous otitis media of both ears Instill 1 [place] into both nostrils daily. 1 Bottle 2 [...] 40 mg/0.4 mL penIndications:S eronegative rheumatoid arthritis ([facility]) Inject 0.4 mL into the skin every 7 days. 12 Each 1 4 Active gabapentin (NEURONTIN) 300 mg capsuleIndicatio ns:Jaw pain Take 1 Capsule by mouth 2 times daily. 180 Capsule 1 4 Active hydroxychloroqui ne (PLAQUENIL) 200 mg tabletIndication s:Ankylosing spondylitis of sacral region ([facility]) Take 1 Tablet by mouth daily. 90 Tablet 3 4 Active Active Problems Patient Care Coordination No te Formatting of this note migh t be different from the original. 01-04-20 Anjel Bejarano, (PERM TO SPEAK). BRENDAN Had hydroxychloroquine eye exam 10/2023. 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 Stopped 03/22 Seen Naturopathic clinic rx for Lyme. High risk medication use 07/07/2019 Lyme disease 07/07/2019 Overview (07/07/2019): Treatment with naturopathy Antibiotics. Supplements and tinctures. Therapy from 02/19 to 06/22 Dr Wyatt at [facility]. 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 Answer Date of Assessment Author No 07/07/2019 14:22 EST Mental Status * Because of a physical, mental, or emotional condition, does this person have serious difficulty concentrating, remembering, or making decisions? Answer Entry Date Author No 07/07/2019 14:22 EST Plan of Treatment Upcoming Encounters Date Type Department Care Team (Late st Contact Info) Description 09/21/2024 8:15 EDT Telemedicine [facility] Rheumatology [address] [place] [address] Venecia Vega MD [address] [facility] [address] [place] [phone] Procedures Procedure Name Priority Date/Time Associated Diagnosis [...] / Unknown 03/14/2024 us Venecia Vega MD CHEMISTRY & BLOOD GAS [...] / Unknown 03/14/2024 us Venecia Vega MD CHEMISTRY & BLOOD GAS OR DERABLES Final Result EXTERNAL LAB * HEPATITIS C AB W REFLEX TO HCV RNA BY PCR (09/09/2022 14:00 EST) Hep C Antibody Negative Negative 09/11/2022 10:27 EST [facility] Blood VENOUS BLOOD / Unknown 09/09/2022 14:00 EST 09/10/2022 17:13 EST us Provider Outr Resulting Lab CHEMISTRY & BLOOD GA S ORDERABLES Final Result [facility] [address] [place] [address] * MA BREAST DIAGNOSTIC FLAVIA BILATERAL (10/14/2018 [...] were communicated to the patient by the line service technician ? shortly following the examination . ? These results will be communicated to your patient via a lay letter ? from Radiology. ??If any additional imaging is needed we will contact ? your patient directly. ? REPORT SIGNED IN OTHER VENDOR SYSTEM 10/14/2018 ?Reported By: Luis Antonio Griffin MD ? CC: ? Transcribed Date/Time: 10/14/2018 (0908) ? Customer Service Correspondence Clerk: R ? Printed Date/Time: 12/25/2018 (210) ? PAGE 1 ? Signed Report ? Procedure Note Luis Antonio rGiffin MD - 05/11/2019 EXAM: MAMMOGRAM/MAMMO BILATERAL DX [...] Griffin MD CC: Transcribed Date/Time: 10/14/2018 (0908) Customer Service Correspondence Clerk: Printed Date/Time: 12/25/2018 (210) PAGE 1 Signed Report Mary Braswell MD IMG MAMMOGRAPHY ORDERABLES Leia l Result * HUMAN PAPILLOMAVIRUS (HPV) DETECTION-HIGH RISK TYPES (10/04/2018 9:49 EDT) HPV other High Risk types, PCR NEG 10/07/2018 15:20 EDT [facility] Comment: Negative for HPV types 16, 18, 31, 33, 35, 39, 45, 51, 52, 56, 58, 59, 66, 68. Method: Cervista HPV HR (High Risk) DNA test. 10/04/2018 9:49 EDT 10/05/2018 9:49 EDT Mary Braswell MD MICROBIOLOGY - GENERAL ORDERABL ES Final Result [facility] * PAP TEST (10/04/2018) 10/04/2018 10/05/2018 9:4 9 EDT Narrative [facility] - 10/10/2018 8:13 EDT ----- ------- Name: ARABELLA BEJARANO ? : 81 ?Age/Sex: 33/F ?Unit#: [id number] ? Loc: AGO ? Status: REG POV ?? Reg Date: 10/04/18 ? Pt.Phone Number: ? ----- ------- Specimen: [id number] ?STATUS: SOUT ?Spec Date:10/04/18 ? Physician Copies: ?Mary Braswell MD ? Tissues: ? Cervical/Endo Pap ?Serafin Saucedo MD CPT: 57688 ?? Units: ??1 ----- ------- ? CYTOLOGY DIAGNOSIS SPECIMEN ADEQUACY: ?Satisfactory for evaluation. Transformation zone component present. GENERAL CATEGORIZATION: ?Negative for Intraepithelial Lesion or Malignancy DESCRIPTIVE DIAGNOSIS: ? Negative for Intraepithelial Lesion or Malignancy. ----- ------- ?HPV DNA RESULTS ? LABORATORY ?? Date ? Time Test ?Result ?? Flag ?Normal Range ?? /08/23 0949 HPV DNA RESULT ??NEG ? Negative [...] confirmed the above diagnosis. Test Performed by [facility], [address] [place], [place] [id number] Supervisor [employer] Auxiliaries: Rhona Brown MD PHD ----- ------- us Mary Braswell MD PATHOLOGY ORDERABLES Final Resu lt [facility] from Last 3 Months or Most Recently Relevant to Health Maintenance Insurance [place] Advance Directives For more information, please contact: [phone] Documents on File Type Date Recorded Patient Tank Worker Expl anation Advance Directive 01/17/2020 14:32 09-21-17 Advance Directive Advance Directive 10/30/2021 13:08 09-01-21 Advance Directive Care Teams Pediatric Nurse Relationship Specialty Start Date End Date Corine Coulter [address] [place] [phone] PCP - General Family Medicine - Primary Care 03/08/24
--- OUTSIDE RECORDS SUMMARY | 2024-05-25 12:44 | XMS_ITS | Encounter Summary ---
Author Organization [facility] Address [address] [place] [address] Care Team Providers Care Airways Control Specialist Name Role Phone Rebeca Miller George AGUILERA Primary Care Provider Encounter Details Date Type Department Care Team (Latest Contact Info) Description 12/09/2023 Specialty Pharmacy [facility] [address] [place], [place] [phone] Van Phelps [facility] Refill Coordination Outreach for Rheumatology Social History [...] documented in this encounter Progress Notes * Selina Haq - 12/09/2023 1216 EDT Humira refills requested documented in this encounter Plan of Treatment Upcoming Encounters Date Type Department Care Team (Late st Contact Info) Description 09/21/2024 8:15 EDT Telemedicine [facility] Rheumatology [address] [place], [place] [address] Venecia Vega MD [address] [facility] [address] [place] [phone] documented as of this encounter Visit Diagnoses Not on filedocumented in this encounter Care Teams Airways Control Specialist Relationship Specialty Start Date End Date Rebeca Miller APRN [address] [place] [phone] PCP - General Family Medicine - Primary Care 11/21/21 03/07/24 documented as of this encounter
--- OUTSIDE RECORDS SUMMARY | 2024-05-25 12:45 | XMS_ITS | Encounter Summary ---
Author Organization [facility] Address [address] [place] [address] Care Team Providers Care Formulator Compounder Name Role Phone Rebeca Miller APRN Primary Care Provider Corine Coulter Primary Care Provider [phone] Reason for Visit * Reason Onset Date Comments Prior Auth, Medication 11/13/2022 Humira (r e-auth) Encounter Details Date Type Department Care Team (Late st Contact Info) Description 11/13/2022 Telephone [facility] Rheumatology [address] [place] [address] Venecia Vega MD [address] [facility] [address] [place] [address] Prior Auth, Medication (Humira (re-auth)) [...] [place] Medicaid Approval Dates: 11/16/22--11/17/23 Authorization Number: [id number] Benefits Information: Required Pharmacy: [facility] able to fill?: YES Additional Info/Other Notes: Prior Authorization Submission Process - Urgent Re-Auth Medication: Humira 40mg/0.4mL Pen q 7 days Insurance: VTM Insurance Type: [place] Medicaid Date PA Request Received: 11/13/22 PA Submission Date: 11/16/22 Faxed: VTM Notes: Submitted by: Vivi Camarillo Phone: [phone] * Telephone Encounter - Edward Buenrostro - 11/13/2022 4603 EDT SPRX Request for PA/Funding Drug Name: Humira Next Injection Date: Unknown RX Insurance: [place] Medicaid Qty Remaining: Unknown PA Required: Yes Funding Needed: N/A documented in this encounter Plan of Treatment Upcoming Encounters Date Type Department Care Team (Late st Contact Info) Description 09/21/2024 8:15 EDT Telemedicine [facility] Rheumatology [address] [place], [place] [address] Venecia Vega MD 130 [facility] [address] [place] [address] documented as of this encounter Visit Diagnoses Not on filedocumented in this encounter Care Teams Formulator Compounder Relationship Specialty Start Date End Date Rebeca Miller APRN [address] [place] [address] PCP - General Family Medicine - Primary Care 11/21/21 03/07/24 Corine Coulter [address] [place] [address] PCP - General Family Medicine - Primary Care 03/08/24 documented as of this encounter
--- OUTSIDE RECORDS SUMMARY | 2024-05-25 12:45 | XMS_ITS | Encounter Summary ---
Author Organization [facility] Address [address] [place] [address] Care Team Providers Care Toucher Up Name Role Phone PaulRebeca juan George AGUILERA Primary Care Provider [phone] Encounter Details Date Type Department Care Team (Late st Contact Info) Description 05/08/2022 Specialty Pharmacy [facility] Ambulatory Pharm[facility] - [facility] [address] [place] [address] Van Phelps, [facility] Social History Tobacco Use Types Packs/Day Years [...] documented in this encounter Progress Notes * Sid Rucker - 05/08/2022 1416 EDT [facility] Specialty Pharmacy Delivery Information Hours: Wednesday-Wednesday 8:30am - 5:00pm *Pharmacist available nylon mender 25/01 Delivery Service: [employer] Delivery Window: None Specified Date of Delivery: 05/14 Tracking # : [id number] documented in this encounter Plan of Treatment Upcoming Encounters Date Type Department Care Team (Late st Contact Info) Description 09/21/2024 8:15 EDT Telemedicine [facility] Rheumatology [address] [place], [place] [address] Venecia Vega MD 130 [facility] [address] [place] [phone] documented as of this encounter Visit Diagnoses Not on filedocumented in this encounter Discontinued Medications Medication Sig Discontinue Reason Start Date End Da te tofacitinib (XELJANZ) 5 mg tabletIndications:rheuma toid arthritis Take 1 Tablet by mouth 2 times daily. Alternate therapy 03/16/2022 05/08/2022 documented as of this encounter Care Teams Toucher Up Relationship Specialty Start Date End Date Rebeca Miller APRN [address] [place] [address] PCP - General Family Medicine - Primary Care 11/21/21 03/07/24 documented as of this encounter
--- OUTSIDE RECORDS SUMMARY | 2024-05-25 12:45 | XMS_ITS | Encounter Summary ---
Author Organization [facility] Address [address] [place] [address] Care Team Providers Care Baked Goods Stock Clerk Name Role Phone Rebeca Miller APRN Primary Care Provider [phone] Corine Coulter Primary Care Provider [phone] Encounter Details Date Type Department Care Team (Late st Contact Info) Description 09/10/2022 Lab Requisition [facility] Pathology & Laboratory Medicine - [facility] [address] [place] [address] Outr Resulting Lab, Provider Social History Tobacco [...] Contact Info) Description 09/21/2024 8:15 EDT Telemedicine [facility] Rheumatology [address] [place] [address] Venecia Vega MD 130 [facility] [address] [place] [address] documented as of this encounter Procedures Procedure Name Priority Date/Time Associated Diagnosis Comments HEPATITIS C AB W REFLEX TO HCV RNA BY PCR Routine 09/09/2022 14:00 EST documented in this encounter Results * HEPATITIS C AB W REFLEX TO HCV RNA BY PCR (09/09/2022 14:00 EST) Hep C Antibody Negative Negative 09/11/2022 10:27 EST [facility] Blood VENOUS BLOOD / Unknown 09/09/2022 14:00 EST 09/10/2022 17:13 EST us Provider Outr Resulting Lab CHEMISTRY & BLOOD GA S ORDERABLES Final Result [facility] [address] [place] [address] documented in this encounter Visit Diagnoses Not on filedocumented in this encounter Care Teams Baked Goods Stock Clerk Relationship Specialty Start Date End Date Rebeca Miller APRN [address] [place] [phone] PCP - General Family Medicine - Primary Care 11/21/21 03/07/24 Corine Coulter [address] [phone] PCP - General Family Medicine - Primary Care 03/08/24 documented as of this encounter
--- OUTSIDE RECORDS SUMMARY | 2024-05-25 12:45 | XMS_ITS | Encounter Summary ---
Author Organization [facility] Address [address] [place] [address] Care Team Providers Care Experimental Rocketsled Mechanic Name Role Phone PaulRebeca George AGUILERA Primary Care Provider Reason for Visit * Reason Onset Date Comments Medications Refill 03/16/2022 Xeljanz Encounter Details Date Type Department Care Team (Late st Contact Info) Description 03/16/2022 Refill [facility] Rheumatology [address] [place], [place] [phone] Venecia Vega MD 130 [facility] [address] [place] [address] Medications Refill (Xeljanz) Social History [...] Refills Last Filled Start Date End Date tofacitinib (XELJANZ) 5 mg tabletIndications: rheumatoid arthritis Take 1 Tablet by mouth 2 times daily. 60 Tablet 2 03/16/2022 05/08/2022 documented in this encounter Progress Notes * Cortney Hopper RPH - 03/16/2022 1011 EDT Renewal of Xeljanz (tofacitinib) is required for continued use; order sent to [facility] for dispensing.3 month order sent as patient has been off and on therapy due to recurrent infections (UTI), may need to consider alternate therapy. Follow-up visit scheduled with Dr. Vega on 05/15/22. Cortney Hopper, PharmD 03/16/2022 documented in this encounter Plan of Treatment Upcoming Encounters Date Type Department Care Team (Late st Contact Info) Description 09/21/2024 8:15 EDT Telemedicine [facility] Rheumatology [address] [place] [address] Venecia Vega MD [address] [facility] [address] [place] [phone] documented as of this encounter Visit Diagnoses Diagnosis Seronegative rheumatoid arthritis ([facility])- Primary Rheumatoid arthritis documented in this encounter Discontinued Medications Medication Sig Discontinue Reason Start Date End Da te tofacitinib (XELJANZ) 5 mg tabletIndications:rheuma toid arthritis Take 1 Tablet by mouth 2 times daily. Reorder 09/23/2021 03/16/2022 documented as of this encounter Care Teams Experimental Rocketsled Mechanic Relationship Specialty Start Date End Date Rebeca Miller APRN [address] [place] [phone] PCP - General Family Medicine - Primary Care 11/21/21 03/07/24 documented as of this encounter
--- OUTSIDE RECORDS SUMMARY | 2024-05-25 12:45 | XMS_ITS | Encounter Summary ---
Author Organization [facility] Address [address] [place] [address] Care Team Providers Care Audio Visual Specialist Name Role Phone PaulRebeca juan George AGUILERA Primary Care Provider [phone] Encounter Details Date Type Department Care Team (Late st Contact Info) Description 11/13/2022 Specialty Pharmacy [facility] Amb[facility] - [facility] [address] [place] [address] Van Phelps, [facility] Social History Tobacco Use Types [...] documented in this encounter Progress Notes * Edward Buenrostro - 11/13/2022 1329 EDT Specialty Pharmacy Documentation Medication: Humira Clinic: [facility] Reason for Encounter: Outreach Notes: PA requested. Follow up date: 11/17/2022 Follow up reason: Outreach documented in this encounter Plan of Treatment Upcoming Encounters Date Type Department Care Team (Late st Contact Info) Description 09/21/2024 8:15 EDT Telemedicine [facility] Rheumatology [address] [place] [address] Venecia Vega MD [address] [facility] [address] [place] [address] documented as of this encounter Visit Diagnoses Not on filedocumented in this encounter Care Teams Audio Visual Specialist Relationship Specialty Start Date End Date Rebeca Miller APRN 4 [facility] [place] [phone] PCP - General Family Medicine - Primary Care 11/21/21 03/07/24 documented as of this encounter
--- OUTSIDE RECORDS SUMMARY | 2024-05-25 12:45 | XMS_ITS | Encounter Summary ---
Author Organization [facility] Address [address] [place] [address] Care Team Providers Care Plant Floor Automation Manager Name Role Phone Rebeca Miller APRN Primary Care Provider Corine Coulter Primary Care Provider [phone] Reason for Visit * Reason Onset Date Comments Other 11/09/2022 Encounter Details Date Type Department Care Team (Late st Contact Info) Description 11/09/2022 Telephone [facility] [address] [place], [place] [phone] Venecia Vega MD 130 [facility] [address] [place] [address] Other Social History Tobacco Use [...] EDT Pt requesting to speak with Dr. Gary hirsch. States her left knee inflammation has gotten worse so that she limps when she walks. Went to Urgent Care this morning and they did x-rays and an ultrasound to rule out a clot. They believe it is arthritis related. documented in this encounter Plan of Treatment Upcoming Encounters Date Type Department Care Team (Late st Contact Info) Description 09/21/2024 8:15 EDT Telemedicine [facility] Rheumatology [address] [place] [address] Venecia Vega MD 130 [facility] [address] [place] [address] documented as of this encounter Visit Diagnoses Not on filedocumented in this encounter Care Teams Plant Floor Automation Manager Relationship Specialty Start Date End Date Rebeca Miller APRN [address] [place] [address] PCP - General Family Medicine - Primary Care 11/21/21 03/07/24 Corine Coulter [address] [place] [address] PCP - General Family Medicine - Primary Care 03/08/24 documented as of this encounter
--- OUTSIDE RECORDS SUMMARY | 2024-05-25 12:45 | XMS_ITS | Encounter Summary ---
Author Organization [facility] Address [address] [place] [address] Care Team Providers Care Trash Collector Name Role Phone PaulRebeca juan George AGUILERA Primary Care Provider [phone] Reason for Visit * Reason Comments Telemedicine Video Visit Encounter Details Date Type Department Care Team (Late st Contact Info) Description 08/24/2022 14:30 EST Telemedicine [facility] Oncology [address] [place] [phone] Yoly Valencia MD [address] [place] [address] Thrombocytosis (Primary Dx); Lymphocytosis; Right [...] documented in this encounter Progress Notes * Joan Bella [...] verified: Yes - Updated primary pharmacy to [facility] Patient insurance verified: Yes Verbal consent given by patient to continue with telemedicine visit: Yes 08/24/22 14:06 * Yoly Valencia MD - 08/24/2022 1430 EST [facility] Telemedicine/Audio Note Arabella Ojeda :1985 Age: 37 y.o. Date of Service: 08/24/2022 I am conducting today's visit by telemedicine due to the COVID-19 pandemic, and by the recommendations from the [facility] to minimize patient exposure to [...] from 02/19 to 06/22 Dr Wyatt at [facility]. ??? Obesity (BMI 30-39.9) ??? Otitis media, [...] Social History Social History Narrative Lives in [place], [place] with her 4 children. Stay home [...] every 7 days. 4 Each 5Taking ??? luxwghn-cxosfdplnzqpf-ivjwwsng (EXCEDRIN MIGRAINE) 250-250-65 mg per tablet Take 1 Tablet by mouth every 12 hours as needed for Headaches. Taking ??? cefpodoxime (VANTIN) 200 mg tablet (Patient not taking: Reported on 08/24/2022) Not Taking ??? ferrous sulfate 325 mg (65 mg iron) tablet Take 325 mg by mouth every 48 hours. Taking ??? fluticasone propionate (FLONASE) 50 mcg/actuation nasal spray Instill 1 [place] into both nostrils daily. 1 Bottle 2 [...] time composing this note. Yoly Valencia MD [facility] CC: Primary Care Provider: Rebeca Miller [address] [place] [phone] documented in this encounter Plan of Treatment Upcoming Encounters Date Type Department Care Team (Late st Contact Info) Description 09/21/2024 8:15 EDT Telemedicine [facility] Rheumatology [address] [place] [address] Venecia Vega MD 130 [facility] [address] [place] [address] documented as of this encounter Visit Diagnoses Diagnosis Thrombocytosis- Primary Essential thrombocythemia Lymphocytosis Lymphocytosis (symptomatic) Right upper quadrant abdominal pain Abdominal pain, right upper quadrant documented in this encounter Historical Medications * This list may reflect changes made after this encounter. ferrous sulfate 325 mg (65 mg iron) tablet Take 1 Tablet by mouth every 48 hours. added in this encounter Care Teams Trash Collector Relationship Specialty Start Date End Date Rebeca Miller APRN [address] [place] [address] PCP - General Family Medicine - Primary Care 11/21/21 03/07/24 documented as of this encounter
--- OUTSIDE RECORDS SUMMARY | 2024-05-25 12:45 | XMS_ITS | Encounter Summary ---
Author Organization [facility] Address [address] [place] [address] Care Team Providers Care Information Security Architect Name Role Phone Rebeca Miller APRN Primary Care Provider [phone] Corine Coulter Primary Care Provider [phone] Reason for Visit * Reason Comments Medications Refill Encounter Details Date Type Department Care Team (Late st Contact Info) Description 11/25/2022 Refill [facility] Rheumatology [address] [place] [address] Venecia Vega MD [address] [facility] [address] [place] [address] Medications Refill Social History Tobacco [...] Refills Last Filled Start Date End Date hydrOXYchloroQUINE (PLAQUENIL) 200 mg tabletIndications: Spondyloarthropath y TAKE ONE TABLET BY MOUTH ONE TIME [...] Contact Info) Description 09/21/2024 8:15 EDT Telemedicine [facility] Rheumatology [address] [place] [address] Venecia Vega MD [address] [facility] [address] [place] [phone] documented as of this encounter Visit Diagnoses Diagnosis 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 06/15/2022 11/25/2022 documented as of this encounter Care Teams Information Security Architect Relationship Specialty Start Date End Date Rebeca Miller APRN [address] [place] [address] PCP - General Family Medicine - Primary Care 11/21/21 03/07/24 Corine Coulter [address] [address] PCP - General Family Medicine - Primary Care 03/08/24 documented as of this encounter
--- OUTSIDE RECORDS SUMMARY | 2024-05-25 12:45 | XMS_ITS | Encounter Summary ---
Author Organization [facility] Address [address] [place] [address] Care Team Providers Care Public Service Director Name Role Phone Rebeca Miller APRN Primary Care Provider Corine Coulter Primary Care Provider [phone] Reason for Visit * Reason Onset Date Comments Medications Refill 08/14/2022 Encounter Details Date Type Department Care Team (Late st Contact Info) Description 08/14/2022 Telephone [facility] Rheumatology [address] [place], [place] [phone] Venecia Vega MD [address] [facility] [address] [place] [address] Medications Refill Social History [...] Humira Next Injection Date: 08/28 RX [place]: [place] Q[place] Rem[place] Required: Yes Funding Needed: No documented in this encounter Plan of Treatment Upcoming Encounters Date Type Department Care Team (Late st Contact Info) Description 09/21/2024 8:15 EDT Telemedicine [facility] Rheumatology [address] [place] [address] Venecia Vega MD [address] [facility] [address] [place] [phone] documented as of this encounter Visit Diagnoses Not on filedocumented in this encounter Care Teams Public Service Director Relationship Specialty Start Date End Date Rebeca Miller APRN [address] [place] [phone] PCP - General Family Medicine - Primary Care 11/21/21 03/07/24 Corine Coulter [address] [address] PCP - General Family Medicine - Primary Care 03/08/24 documented as of this encounter
--- OUTSIDE RECORDS SUMMARY | 2024-05-25 12:45 | XMS_ITS | Encounter Summary ---
Author Organization [facility] Address [address] [place] [address] Care Team Providers Care Investment Accounting Clerk Name Role Phone Paul Rebeca George AGUILERA Primary Care Provider Reason for Visit * Reason Comments Joint Pain Flare up of her left knee persistent pain and swelling. Encounter Details Date Type Department Care Team (Late st Contact Info) Description 11/10/2022 13:00 EDT Telemedicine [facility] Rheumatology [address] [place] [address] Venecia Vega MD [address] [facility] [address] [place] [address] Effusion of left knee (Primary [...] MD - 11/10/2022 13:00 EDT Labs at [place] Trial of prednisone Message with update end of this week. documented in this encounter Ordered Prescriptions Prescription Sig Dispense Quantity Refills Last Filled Start Date End Date predniSONE (DELTASONE) 5 mg tabletIndications: Effusion of left knee Take 3 Tablets by mouth daily for 5 days, THEN 2 Tablets daily for 5 days, THEN 1 Tablet daily for 5 days. 30 Tablet 11/10/2022 3 predniSONE (DELTASONE) 5 mg tabletIndications: Effusion of left knee Take 3 Tablets by mouth daily for 5 days, THEN 2 Tablets daily for 5 days, THEN 1 Tablet daily for 5 days. 30 Tablet 11/10/2022 3 documented in this encounter Progress Notes * Venecia Vega MD - 11/10/2022 1300 EDT [facility] [place] Telephone Visit Today's visit was provided via [...] G pharyngitis -October 2022 ? HPI: Arabella Alonzo [place] Interval issues Arabella reports her knee has [...] this time. She was just seen in [facility] and examined with neg US, xray [...] Contact Info) Description 09/21/2024 8:15 EDT Telemedicine [facility] Rheumatology [address] [place] [address] Venecia Vega MD [address] [facility] [address] [place] [phone] documented as of this encounter Visit Diagnoses Diagnosis Effusion of left knee- Primary Effusion of lower leg joint Ankylosing spondylitis of lumbar region (HCC-CMS) Ankylosing spondylitis Strep pharyngitis Streptococcal sore throat documented in this encounter Discontinued Medications Medication Sig Discontinue Reason Start Date End Da te predniSONE (DELTASONE) 5 mg tabletIndications:Effusi on of left knee Take 3 Tablets by mouth daily for 5 days, THEN 2 Tablets daily for 5 days, THEN 1 Tablet daily for 5 days. 11/10/2022 11/10/2022 documented as of this encounter Care Teams Investment Accounting Clerk Relationship Specialty Start Date End Date Rebeca Miller APRN [address] [place] [phone] PCP - General Family Medicine - Primary Care 11/21/21 03/07/24 documented as of this encounter
--- OUTSIDE RECORDS SUMMARY | 2024-05-25 12:45 | XMS_ITS | Encounter Summary ---
Author Organization [facility] Address [address] [place] [address] Care Team Providers Care Paint Spray Tender Name Role Phone Rebeca Miller APRN Primary Care Provider Corine Coulter Primary Care Provider [phone] Reason for Visit * Reason Onset Date Comments Appointment Related 12/29/2022 Encounter Details Date Type Department Care Team (Late st Contact Info) Description 12/29/2022 Telephone [facility] [place] [place] Rhe[place]ology [address] [place], [place] [phone] Venecia Vega MD [address] [facility] [address] [place] [address] Appointment Related Social History Tobacco [...] 3 months. Can respond to Pt via [employer] portal. documented in this encounter Plan of Treatment Upcoming Encounters Date Type Department Care Team (Late st Contact Info) Description 09/21/2024 8:15 EDT Telemedicine [facility] Rheumatology [address] [place] [address] Venecia Vega MD [address] [facility] [address] [place] [address] documented as of this encounter Visit Diagnoses Not on filedocumented in this encounter Care Teams Paint Spray Tender Relationship Specialty Start Date End Date Rebeca Miller APRN [address] [place] [phone] PCP - General Family Medicine - Primary Care 11/21/21 03/07/24 Corine Coulter [address] [address] PCP - General Family Medicine - Primary Care 03/08/24 documented as of this encounter
--- OUTSIDE RECORDS SUMMARY | 2024-05-25 12:45 | XMS_ITS | Encounter Summary ---
Author Organization [facility] Address [address] [place] [address] Care Team Providers Care Finish Rolls Operator Name Role Phone Paul Rebeca Vazquez APRN Primary Care Provider [phone] Reason for Visit * Reason Onset Date Comments Medications Refill 2022 Encounter Details Date Type Department Care Team (Late st Contact Info) Description 2022 Refill [facility] [place] Rheumatology [address] [place], [place] [phone] Venecia Vega MD [address] [facility] [address] [place] [address] Medications Refill Social History Tobacco [...] hydrOXYchloroQUINE (PLAQUENIL) 200 mg tabletIndications: Spondyloarthropath y Take 1 Tablet by mouth daily. 90 [...] 200 mg tablet [Venecia Vega] Preferred pharmacy: [id number] [place], [place] - [address] [facility] documented in this encounter Plan of Treatment Upcoming Encounters Date Type Department Care Team (Late st Contact Info) Description 09/21/2024 8:15 EDT Telemedicine [facility] Rheumatology [address] [place] [address] Venecia Vega MD [address] [facility] [address] [place] [address] documented as of this encounter Visit Diagnoses Diagnosis Spondyloarthropathy- Primary Spondylosis of unspecified site without mention of myelopathy documented in this encounter Discontinued Medications Medication Sig Discontinue Reason Start Date End Da te hydrOXYchloroQUINE (PLAQUENIL) 200 mg tabletIndications:Spondy loarthropathy TAKE ONE TABLET BY MOUTH ONE TIME DAILY Reorder 03/04/2022 2022 documented as of this encounter Care Teams Finish Rolls Operator Relationship Specialty Start Date End Date Rebeca Miller APRN [address] [place] [address] PCP - General Family Medicine - Primary Care 11/21/21 03/07/24 documented as of this encounter
--- OUTSIDE RECORDS SUMMARY | 2024-05-25 12:45 | XMS_ITS | Encounter Summary ---
Author Organization [facility] Address [address] [place] [address] Care Team Providers Care Cook'S Assistant Name Role Phone Rebeca Miller APRN Primary Care Provider Reason for Visit * Reason Comments Rheumatoid Arthritis Jaw pain on the rig ht side. Very painful wakes at nightSeen in the ER. Encounter Details Date Type Department Care Team (Late st Contact Info) Description 05/15/2022 14:15 EST Telemedicine [facility] [place] [address] [place], [place] [phone] Venecia Vega MD [address] [facility] [address] [place] [address] Seronegative spondylitis (HCC-CMS) (Primary Dx); [...] sent through Care Everywhere. * Trigeminal Neuralgia ([place]ymraes) documented in this encounter Ordered Prescriptions Prescription Sig Dispense Quantity Refills Last Filled Start Date End Date predniSONE (DELTASONE) 10 mg tablet Take 2 Tablets by mouth daily for 7 days, THEN 1 Tablet daily for 7 days. 21 Tablet 1 05/15/2022 2 predniSONE (DELTASONE) 10 mg tabletIndications: Seronegative spondylitis (HCC-CMS) Take 2 Tablets by mouth daily for 7 days, THEN 1 Tablet daily for 7 days. 30 Tablet 1 05/15/2022 2 gabapentin (NEURONTIN) 300 mg capsule Take 1 Capsule by mouth 3 times daily. 90 Capsule 3 05/15/2022 2 documented in this encounter Progress Notes * Venecia Vega MD - 05/15/2022 1415 EST [facility] [place] Visit [...] Contact Info) Description 09/21/2024 8:15 EDT Telemedicine [facility] Rheumatology [address] [place], [place] [address] Venecia Vega MD [address] [facility] [address] [place] [phone] documented as of this encounter Visit Diagnoses Diagnosis Seronegative spondylitis ([facility])- Primary Unspecified inflammatory spondylopathy High risk medication [...] may reflect changes made after this encounter. tiZANidine (ZANAFLEX) 4 mg tabletIndications :muscle spasm,tmj Take 4 mg by mouth at bedtime. 05/15/2022 added in this encounter Care Teams Cook'S Assistant Relationship Specialty Start Date End Date Rebeca Miller APRN [address] [place] [phone] PCP - General Family Medicine - Primary Care 11/21/21 03/07/24 documented as of this encounter
--- OUTSIDE RECORDS SUMMARY | 2024-05-25 12:45 | XMS_ITS | Encounter Summary ---
Author Organization [facility] Address [address] [place] [address] Care Team Providers Care Manager Store Name Role Phone PaulRebeca juan George AGUILERA Primary Care Provider [phone] Encounter Details Date Type Department Care Team (Late st Contact Info) Description 09/09/[address] [facility] [address] [place] [address] [place], [facility] Social History Tobacco Use Types Packs/Day [...] Contact Info) Description 09/21/2024 8:15 EDT Telemedicine [facility] Rheumatology [address] [place] [address] Venecia Vega MD [address] [facility] [place] [address] documented as of this encounter Visit Diagnoses Not on filedocumented in this encounter Care Teams Manager Store Relationship Specialty Start Date End Date Rebeca Miller APRN [address] [place] [address] PCP - General Family Medicine - Primary Care 11/21/21 03/07/24 documented as of this encounter
--- OUTSIDE RECORDS SUMMARY | 2024-05-25 12:45 | XMS_ITS | Encounter Summary ---
Author Organization [facility] Address [address] [place] [address] Care Team Providers Care Quarry Boss Name Role Phone PaulRebeca juan George AGUILERA Primary Care Provider Encounter Details Date Type Department Care Team (Late st Contact Info) Description 01/04/2023 Specialty Pharmacy [facility] - [facility] [address] [place] [address] [place], [facility] - [...] in this encounter Progress Notes * Joanna Eisenberg - 01/04/2023 1249 EDT Medication Refill Request Medication: HUMIRA CF PEN 40mg/0.4ml PNKT Patient needs medication by: 01/17, approximately, according to last adherence screen Scheduled outreach date: 01/07/23 Pharmacy: [facility] [place] [employer] [facility] ([facility]) [address] Next appt: Visit date not found documented in this encounter Plan of Treatment Upcoming Encounters Date Type Department Care Team (Late st Contact Info) Description 09/21/2024 8:15 EDT Telemedicine [facility] Rheumatology [address] [place] [address] Venecia Vega MD [address] [facility] [address] [place] [phone] documented as of this encounter Visit Diagnoses Not on filedocumented in this encounter Care Teams Quarry Boss Relationship Specialty Start Date End Date Rebeca Miller APRN [address] [place] [phone] PCP - General Family Medicine - Primary Care 11/21/21 03/07/24 documented as of this encounter
--- OUTSIDE RECORDS SUMMARY | 2024-05-25 12:45 | XMS_ITS | Encounter Summary ---
Author Organization [facility] Address [address] [place] [address] Care Team Providers Care Skein Inspector Name Role Phone Paul Rebeca George AGUILERA Primary Care Provider [phone] Reason for Visit * Reason Onset Date Comments Other 10/15/2022 Inlammation knee s/ankles Encounter Details Date Type Department Care Team (Late st Contact Info) Description 10/15/2022 Telephone [facility] Rheumatology [address] [place] [address] Venecia Vega MD [address] [facility] [address] [place] [address] Other (Inlammation knees/ankles) Social History [...] Date End Date predniSONE (DELTASONE) 5 mg tablet Take 3 [...] 10/15/2022 1646 EDT Prednisone prescription sent to [facility]' and patient notified with appreciation expressed. * Telephone Encounter - Pk Stringer RN - 10/15/2022 1446 EDT Arabella returned call and stated that she would like to try a course of prednisone as it has been since 05/2022 that she took one and that was helpful for her joint pain then. * Telephone Encounter - Pk Stringer CHRISTIANO - 10/15/2022 0938 EDT LM asking Arabella [...] Contact Info) Description 09/21/2024 8:15 EDT Telemedicine [facility] Rheumatology [address] [place], [place] [address] Venecia Vega MD [address] [facility] [place] [address] documented as of this encounter Visit Diagnoses Not on filedocumented in this encounter Care Teams Skein Inspector Relationship Specialty Start Date End Date Rebeca Miller APRN [address] [place] [phone] PCP - General Family Medicine - Primary Care 11/21/21 03/07/24 documented as of this encounter
--- OUTSIDE RECORDS SUMMARY | 2024-05-25 12:45 | XMS_ITS | Encounter Summary ---
Author Organization [facility] Address [address] [place] [address] Care Team Providers Care Housing Project Manager Name Role Phone Rebeca Miller APRN Primary Care Provider Corine Coulter Primary Care Provider [phone] Reason for Visit * Reason Onset Date Comments Appointment Related 04/23/2022 Encounter Details Date Type Department Care Team (Late st Contact Info) Description 04/23/2022 Telephone [facility] [place] [facility] [place] [facility] [address] [place] [address] Adriane Wset, NOEMI [address] [facility] [address] [place] [address] Appointment Related Social History Tobacco [...] Info) Description 09/21/2024 8:15 EDT Telemedicine [facility] Rheumatology [address] [facility] [place] [address] Venecia Vega MD [address] [facility] [address] [place] [address] documented as of this encounter Visit Diagnoses Not on filedocumented in this encounter Care Teams Housing Project Manager Relationship Specialty Start Date End Date Rebeca Miller APRN [address] [place] [address] PCP - General Family Medicine - Primary Care 11/21/21 03/07/24 Corine Coulter [address] [place] [address] PCP - General Family Medicine - Primary Care 03/08/24 documented as of this encounter
--- OUTSIDE RECORDS SUMMARY | 2024-05-25 12:45 | XMS_ITS | Encounter Summary ---
Author Organization [facility] Address [address] [place] [address] Care Team Providers Care Industry Consultant Name Role Phone PaulRebeca juan George AGUILERA Primary Care Provider [phone] Reason for Visit * Reason Comments Follow-up Belly and back pain last week. suggested d/t gall stones. Worse at night. ? If due to Humira Encounter Details Date Type Department Care Team (Late st Contact Info) Description 08/26/2022 13:[address] [facility] Rheumatology [address] [place], [place] [phone] Venecia Vega MD [address] [facility] [address] [place] [address] RUQ pain (Primary Dx); Ankylosing spondylitis of multiple sites in spine ([facility]) Social History Tobacco Use Types Packs/Day Years [...] Care Everywhere. * Gallbladder Disease: Low-Fat Diet (Fijian) * Gallstones: General Info (Fijian) documented in this encounter Progress Notes * Venecia Vega MD - 08/26/2022 0105 EST [facility] [place] Today's visit was provided via [...] Ankylosing spondylitis of multiple sites in spine (HCC-[facility]) ([facility]) bebeto huerta Patient initiated phone contact with the office: [...] Telemedicine [facility] Rheumatology [address] [place] [address] Venecia Vega MD [address] [place] [address]- [address] [place] [address] documented as of this encounter Visit Diagnoses Diagnosis RUQ pain- Primary Abdominal pain, right upper quadrant Ankylosing spondylitis of multiple sites in spine ([facility]) Ankylosing spondylitis documented in this encounter Discontinued [...] may reflect changes made after this encounter. Sodium Fluoride 1.1 % gel 07/10/2022 PAXLOVID, EUA, 300 mg (150 mg x 2)-100 mg tablet TAKE 2 NIRMATRELVIR TABLETS AND 1 RITONAVIR TABLET TOGETHER BY MOUTH TWICE DAILY FOR 5 DAYS 07/27/2022 3 cefpodoxime (VANTIN) 200 mg tablet 05/13/2022 3 added in this encounter Care Teams Industry Consultant Relationship Specialty Start Date End Date Rebeca Miller, PRICING COORDINATOR [address] [place] [phone] PCP - General Family Medicine - Primary Care 11/21/21 03/07/24 documented as of this encounter
--- OUTSIDE RECORDS SUMMARY | 2024-05-25 12:45 | XMS_ITS | Encounter Summary ---
Author Organization [facility] Address [address] [place] [address] Care Team Providers Care Hoist Cylinder Loader Name Role Phone Rebeca Miller APRN Primary Care Provider Corine Coulter Primary Care Provider [phone] Reason for Visit * Reason Onset Date Comments Medications Refill 01/07/2023 Encounter Details Date Type Department Care Team (Late st Contact Info) Description 01/07/2023 Telephone [facility] Rheumatology [address] [place], [place] [phone] Venecia Vega MD [address] [facility] [address] [place] [address] Medications Refill Social History Tobacco [...] 40 mg/0.4 mL penIndications:Ser onegative rheumatoid arthritis ([facility]) Inject 0.4 mL into the skin every 7 days. 4 Each 5 01/08/2023 05/21/2023 documented in this encounter Miscellaneous Notes * Telephone Encounter - Joanna Eisenberg - 01/07/2023 1639 EDT Medication Refill Request Medication: HUMIRA CF PEN 40mg/0.4ml PNKT Patient needs medication by: 01/17, approximately, according to last adherence screen Scheduled outreach date: 01/07/23 Pharmacy: [facility] ([facility]) [address] Next appt: Visit date not found documented in this encounter Plan of Treatment Upcoming Encounters Date Type Department Care Team (Late st Contact Info) Description 09/21/2024 8:15 EDT Telemedicine [facility] Rheumatology [address] [place] [address] Venecia Vega MD [address] [facility] [address] [place] [address] documented as of this encounter Visit Diagnoses Diagnosis Seronegative rheumatoid arthritis ([facility]) Rheumatoid arthritis documented in this encounter Discontinued Medications Medication Sig Discontinue Reason Start Date End Da te adalimumab (HUMIRA,CF, PEN) 40 mg/0.4 mL penIndications:Seronegat jennifer rheumatoid arthritis ([facility]) Inject 0.4 mL into the skin every 7 days. Reorder 07/22/2022 01/08/2023 documented as of this encounter Care Teams Hoist Cylinder Loader Relationship Specialty Start Date End Date Rebeca Miller APRN [address] [place] [phone] PCP - General Family Medicine - Primary Care 11/21/21 03/07/24 Corine Coulter [address] [place] [phone] PCP - General Family Medicine - Primary Care 03/08/24 documented as of this encounter
--- OUTSIDE RECORDS SUMMARY | 2024-05-25 12:45 | XMS_ITS | Encounter Summary ---
Author Organization [facility] Address [address] [place] [address] Care Team Providers Care Rubber Compounder Mixer Name Role Phone Rebeca Miller APRN Primary Care Provider Corine Coulter Primary Care Provider [phone] Reason for Visit * Reason Onset Date Comments Prior Auth, Medication 07/15/2022 Humira 40 mg/0.4mL Pen (Q 7 days) Encounter Details Date Type Department Care Team (Late st Contact Info) Description 07/15/2022 Refill [facility] Rheumatology [address] [place] [address] Venecia Vega MD [address] [facility] [address] [place] [phone] Prior Auth, Medication (Humira 40mg/0.4mL Pen (Q [...] 40 mg/0.4 mL penIndications:Ser onegative rheumatoid arthritis (HCC-CMS) Inject 0.4 mL into the skin every 7 days. 4 Each 5 07/22/2022 01/08/2023 adalimumab (HUMIRA PEN) 40 mg/0.8 mL pen kitIndications:Ser onegative rheumatoid arthritis (HCC-CMS) Inject 1 Pen into [...] Approval Dates: 07/20/2022 to 10/18/2022 Authorization Number: [id number] Tracking Number: [id number] Benefits Information: [facility] able to fill? : Yes Required Pharmacy: [facility] Additional Info/Other Notes: An additional limited 3 month approval is authorized for increased dose. Continued approvals are contingent upon a positive response to therapy documented in the clinicalnotes. Please provide a copy of clinical notes with next PA. Prior Authorization Submission Process - Urgent Medication: Humira 40mg/0.4mL Pen (Q 7 days) Insurance: VTM Insurance Type: [place] Medicaid PA Request Received: 07/15/2022 PA Submission Date: 07/20/2022 CMM Monahan: FAX Notes: Submitted by: Barbara Phone: [phone] documented in this encounter Plan of Treatment Upcoming Encounters Date Type Department Care Team (Late st Contact Info) Description 09/21/2024 8:15 EDT Telemedicine [facility] Rheumatology [address] [place] [phone] Venecia Vega MD [address] [place] [address]-[address] [place] [phone] documented as of this encounter Visit Diagnoses Diagnosis Seronegative rheumatoid arthritis ([facility])- Primary Rheumatoid arthritis documented in this encounter Discontinued Medications Medication Sig Discontinue Reason Start Date End Da te adalimumab (HUMIRA,CF, PEN) 40 mg/0.4 mL penIndications:Seronegati ve spondylitis ([facility]) Inject 0.4 mL into the skin every 14 days. Dose adjustment 05/08/2022 07/20/2022 adalimumab (HUMIRA PEN) 40 mg/0.8 mL pen kitIndications:Seronegati ve rheumatoid arthritis ([facility]) Inject 1 Pen into the skin every 7 days. 07/20/2022 07/22/2022 documented as of this encounter Care Teams Rubber Compounder Mixer Relationship Specialty Start Date End Date Rebeca Miller APRN [address] [place] [place] [address] PCP - General Family Medicine - Primary Care 11/21/21 03/07/24 Corine Coulter [address] [address] PCP - General Family Medicine - Primary Care 03/08/24 documented as of this encounter
--- OUTSIDE RECORDS SUMMARY | 2024-05-25 12:45 | XMS_ITS | Encounter Summary ---
Author Organization [facility] Address [address] [place] [address] Care Team Providers Care Track Leader Name Role Phone Rebeca Miller APRN Primary Care Provider [phone] Corine Coulter Primary Care Provider [phone] Encounter Details Date Type Department Care Team (Late st Contact Info) Description 08/14/2022 Specialty Pharmacy [facility] - [facility] [address] [place] [address] Van Phelps, [facility] Social History Tobacco [...] Contact Info) Description 09/21/2024 8:15 EDT Telemedicine [facility] Rheumatology [address] [place], [place] [phone] Venecia Vega MD 130 [facility] [address] [place] [address] documented as of this encounter Visit Diagnoses Not on filedocumented in this encounter Care Teams Track Leader Relationship Specialty Start Date End Date Rebeca Miller APRN [address] [place] [address] PCP - General Family Medicine - Primary Care 11/21/21 03/07/24 Corine Coulter [address] [place] [address] PCP - General Family Medicine - Primary Care 03/08/24 documented as of this encounter
--- OUTSIDE RECORDS SUMMARY | 2024-05-25 12:45 | XMS_ITS | Encounter Summary ---
Author Organization [facility] Address [address] [place] [address] Care Team Providers Care Rn Otolaryngology Name Role Phone Paul Rebeca George AGUILERA Primary Care Provider Reason for Visit * Reason Comments Medication Management On Humira still so re tolerates the injections. Encounter Details Date Type Department Care Team (Late st Contact Info) Description 06/26/2022 15:45 EST Telemedicine [facility] Rheumatology [address] [place] [address] Venecia Vega MD 130 [facility] [address] [place] [address] Jaw pain (Primary Dx) Social [...] 2 times daily. 180 Capsule 3 06/26/2022 3 documented in this encounter Progress Notes * Venecia Vega MD - 06/26/2022 9585 EST [facility] Video Visit Today's visit was provided through [...] D/t anemia vs active snra HPI: Arabella Ojdea is here in follow up Tolerates Humira only a few injections, helps Jaw sore, better. Has tmj an dnerve pain, not for surgery Pain in knees/ankles stiffness. Getting better She has no mouth sores Stress better at home. Children do get viral infectios often. Hopeful she will be able to stay on the Humira penitentiary. I have reviewed patient's tobacco history: reports [...] Contact Info) Description 09/21/2024 8:15 EDT Telemedicine [facility] Rheumatology [address] [place] [address] Venecia Vega MD 130 [facility] [address] [address] [place] [phone] documented as of this encounter Visit Diagnoses Diagnosis Jaw pain- Primary documented in this encounter Discontinued Medications Medication Sig Discontinue Reason Start Date End Da te gabapentin (NEURONTIN) 300 mg capsule Take 1 Capsule by mouth 3 times daily. Reorder 05/15/2022 06/26/2022 documented as of this encounter Care Teams Rn Otolaryngology Relationship Specialty Start Date End Date Rebeca Miller APRN [address] [place] [phone] PCP - General Family Medicine - Primary Care 11/21/21 03/07/24 documented as of this encounter
--- OUTSIDE RECORDS SUMMARY | 2024-05-25 12:45 | XMS_ITS | Encounter Summary ---
Author Organization [facility] Address [address] [place] [address] Care Team Providers Care Psychological Tests Sales Agent Name Role Phone PaulRebeca George AGUILERA Primary Care Provider [phone] Reason for Visit * Reason Comments Follow-up Discuss meds; the Pt .states that both knees and ankles are painful and has some inflammation. Encounter Details Date Type Department Care Team (Late st Contact Info) Description 04/29/2022 16:15 EDT Office Visit [facility] Rheumatology [address] [place], [place] [address] Venecia Vega MD 130 [facility] [address] [place] [address] High risk medication use (Primary [...] Reading Time Taken Comments Blood Pressure 140/98 04/29/20221611 EDT Pulse 68 04/29/20221611 EDT Temperature 36.2 ??C (97.2 ??F) 04/29/20221611 EDT Respiratory Rate - - Oxygen Saturation - - Inhaled Oxygen Concentration - - Weight 121.1 kg (267 lb) 04/29/20221611 EDT Height 170.2 cm (5' 7) 04/29/20221611 EDT Body Mass Index 41.82 04/29/2022 161 [...] Date End Date predniSONE (DELTASONE) 5 mg tabletIndications:Serone gative spondyloarthropathy Take 3 Tablets by mouth daily for 5 days, THEN 2 Tablets daily for 5 days, THEN 1 Tablet daily for 5 days. 30 Tablet 2 05/14/20 22 documented in this encounter Progress Notes * Venecia Vega MD - 04/29/2022 1615 EDT [facility] Rheumatology Follow Up Chief Complaint Patient presents [...] known allergies. Current Outpatient Medications Medication ??? kdaenbt-fpkfaingbvizs-aibzwfco (EXCEDRIN MIGRAINE) 250-250-65 mg per tablet ??? [...] from 02/19 to 06/22 Dr Wyatt [facility] ??? Obesity (BMI 30-39.9) ??? Otitis media, [...] only block results from tests performed at [facility] and does not apply for Miscellaneous Test Order) Answer: Immediate via [employer] Portal ??? Comprehensive Metabolic Panel (CMP) Standing [...] only block results from tests performed at [facility] and does not apply for Miscellaneous Test Order) Answer: Immediate via [facility] [employer] Portal ??? C Reactive Protein (use to detect acute inflammation) Standing Status: Future Standing Expiration Date: 04/29/2023 Order Specific Question: Results Release to Patient (Note: Choosing Manual Release will only block results from tests performed at [facility] and does not apply for Miscellaneous Test Order) Answer: Immediate via [employer] Portal ??? Ambulatory Specialty Pharmacy Medication Prior Authorization Request ([id number]) The purpose of this request is to [...] Contact Info) Description 09/21/2024 8:15 EDT Telemedicine [facility] - [facility] Rheumatology [address] [place], [place] [phone] Venecia Vega MD [address] [place] [address] [address] [place] [phone] documented as of this encounter Visit Diagnoses [...] documented as of this encounter Care Teams Psychological Tests Sales Agent Relationship Specialty Start Date End Date Rebeca Miller APRN [address] [place] [phone] PCP - General Family Medicine - Primary Care 11/21/21 03/07/24 documented as of this encounter
--- OUTSIDE RECORDS SUMMARY | 2024-05-25 12:45 | XMS_ITS | Encounter Summary ---
Author Organization [facility] Address [address] [place] [address] Care Team Providers Care Tattoo Identifier Name Role Phone Rebeca Miller APRN Primary Care Provider Corine Coulter Primary Care Provider [phone] Reason for Visit * Reason Onset Date Comments Orders (Non Pre-visit) 09/18/2022 Encounter Details Date Type Department Care Team (Late st Contact Info) Description 09/18/2022 Telephone [facility] - [facility] Rheumatology [address] [place] [address] Katt Stringer RN Orders (Non Pre-visit) Social [...] with Diff, CRP and CMP faxed to [facility]. Please see scans for labs done at [facility] 09/03/22. * Telephone Encounter - Katt Stringer RN - 09/18/2022 1604 EDT ----- Message from Venecia Vega MD sent at 09/18/2022 14:23 EDT ----- Plz find most recent labs in [facility] Please ensure uptodate lab order for cbc, crp,cmp at [facility] Thx. CJ documented in this encounter Plan of Treatment Upcoming Encounters Date Type Department Care Team (Late st Contact Info) Description 09/21/2024 8:15 EDT Telemedicine [facility] - [facility] Rheumatology [address] [place] [address] Venecia Vega MD [address] [facility] [address] [place] [phone] documented as of this encounter Visit Diagnoses Diagnosis Ankylosing spondylitis of multiple sites in spine (HCC-CMS)- Primary Ankylosing spondylitis documented in this encounter Care Teams Tattoo Identifier Relationship Specialty Start Date End Date Rebeca Miller APRN [address] [place] [address] PCP - General Family Medicine - Primary Care 11/21/21 03/07/24 Corine Coulter [address] [address] PCP - General Family Medicine - Primary Care 03/08/24 documented as of this encounter
--- OUTSIDE RECORDS SUMMARY | 2024-05-25 12:45 | XMS_ITS | Encounter Summary ---
Author Organization [facility] Address [address] [place] [address] Care Team Providers Care Inspector Sheet Metal Parts Name Role Phone PaulRebeca juan George AGUILERA Primary Care Provider Encounter Details Date Type Department Care Team (Late st Contact Info) Description 03/12/2022 Specialty Pharmacy [facility] - [facility] [address] [place] [address] [place], [facility] Social History Tobacco Use Types Packs/Day [...] documented in this encounter Progress Notes * Soco Mckinney - 03/12/2022 1142 EDT [facility] Delivery Information Hours: Wednesday-Wednesday 8:30am - 5:00pm *Pharmacist available sock ironer 25/01 Delivery Service: [employer] Delivery Window: None Specified Date of Delivery: 04/03/22 Tracking # : [id number] documented in this encounter Plan of Treatment Upcoming Encounters Date Type Department Care Team (Late st Contact Info) Description 09/21/2024 8:15 EDT Telemedicine [facility] Rheumatology [address] [place], [place] [phone] Venecia Vega MD [address] [facility] [address] [place] [phone] documented as of this encounter Visit Diagnoses Not on filedocumented in this encounter Care Teams Inspector Sheet Metal Parts Relationship Specialty Start Date End Date Rebeca Miller APRN [address] [place] [address] PCP - General Family Medicine - Primary Care 11/21/21 03/07/24 documented as of this encounter
--- OUTSIDE RECORDS SUMMARY | 2024-05-25 12:45 | XMS_ITS | Encounter Summary ---
Author Organization [facility] Address [address] [place] [address] Care Team Providers Care Junction Maker Name Role Phone Paul Rebeca George AGUILERA Primary Care Provider [phone] Reason for Visit * Reason Onset Date Comments Prior Auth, Medication 05/01/2022 Humira Encounter Details Date Type Department Care Team (Late st Contact Info) Description 05/01/2022 Telephone [facility] [address] [place] [address] Venecia Vega MD 130 [facility] [address] [place] [address] Prior Auth, Medication (Humira) Social [...] (HUMIRA,CF, PEN) 40 mg/0.4 mL penIndications:Ser onegative spondylitis ([facility]) Inject 0.4 mL into the skin every 14 days. 2 Each 5 05/08/2022 07/20/2022 documented in this encounter Miscellaneous Notes * Telephone Encounter - Chetna Low - 05/04/2022 1405 EDT Prior Authorization Approval Medication: Humira CF pen 40mg q14d Insurance Name: VTM Insurance Type: [place] Medicaid Approval Dates: through 08/07/22 Authorization Number: [id number] [facility] able to fill? : Yes Required Pharmacy: - Prior Authorization Submission Process - Urgent Medication: Humira CF pen 40mg q14d Insurance: VTM Insurance Type: [place] Medicaid Date PA Request Received: 04/29/22 PA Submission Date: 05/04/22 [facility] Monahan: N/A - submitted via fax Submitted by: Chetna Phone: [phone] documented in this encounter Plan of Treatment Upcoming Encounters Date Type Department Care Team (Late st Contact Info) Description 09/21/2024 8:15 EDT Telemedicine [facility] Rheumat[facility] [address] [place] [address] Venecia Vega MD 130 [facility] [address] [place] [address] documented as of this encounter Visit Diagnoses Diagnosis Seronegative spondylitis ([facility])- Primary Unspecified inflammatory spondylopathy documented in this encounter Care Teams Junction Maker Relationship Specialty Start Date End Date Rebeca Miller, OIL TANK CAR CLEANER [address] [place] [address] PCP - General Family Medicine - Primary Care 11/21/21 03/07/24 documented as of this encounter
--- OUTSIDE RECORDS SUMMARY | 2024-05-25 12:45 | XMS_ITS | Encounter Summary ---
Author Organization [facility] Address [address] [place] [address] Care Team Providers Care Solids Control Technician Name Role Phone Rebeca Miller APRN Primary Care Provider [phone] Reason for Visit * Reason Comments Follow-up Seronegative spondyl itis. Pt states Encounter Details Date Type Department Care Team (Late st Contact Info) Description 09/18/2022 13:45 EDT Telemedicine [facility] Rheumatology [address] [place] [address] Venecia Vega MD 130 [facility] [address] [address] [place] [address] Ankylosing spondylitis of multiple sites in spine ([facility]) (Primary Dx); Encounter for long-term (current) use [...] Venecia Vega MD - 09/18/2022 1345 EDT [facility] Video Visit Today's [...] Ankylosing spondylitis of multiple sites in spine ([facility] ([facility]) Humira weekly continues 2. Encounter for long-term [...] Contact Info) Description 09/21/2024 8:15 EDT Telemedicine [facility] Rheumatology [address] [place] [address] Venecia Vega MD 130 [facility] [address] [place] [phone] documented as of this encounter Visit Diagnoses Diagnosis Ankylosing spondylitis of multiple sites in spine ([facility])- Primary Ankylosing spondylitis Encounter for long-term (current) use of medications Encounter for long-term (current) use of other medications RUQ pain Abdominal pain, right upper quadrant documented in this encounter Care Teams Solids Control Technician Relationship Specialty Start Date End Date Rebeca Miller APRN [address] [place] [phone] PCP - General Family Medicine - Primary Care 11/21/21 03/07/24 documented as of this encounter
--- OUTSIDE RECORDS SUMMARY | 2024-05-25 12:45 | XMS_ITS | Encounter Summary ---
Author Organization [facility] Address [address] [place] [address] Care Team Providers Care Rotary Screen Printing Machine Operator Name Role Phone Rebeca Miller WILLY Primary Care Provider [phone] Encounter Details Date Type Department Care Team (Late st Contact Info) Description 08/20/2022 Abstract [facility] - [facility] Rheumatology [address] [place], [place] [phone] Cande Young RN Social History Tobacco Use [...] Contact Info) Description 09/21/2024 8:15 EDT Telemedicine [facility] Rheumatology [address] [place] [address] Venecia Vega MD 130 [facility] [address] [place] [address] documented as of this encounter Procedures Procedure Name Priority Date/Time Associated Diagnosis Comments COMPLETE BLOOD COUNT AND DIFFERENTIAL Routine 08/17/2022 C REACTIVE PROTEIN Routine 08/17/2022 COMPREHENSIVE METABOLIC PANEL (CMP) Routine 08/17/2022 documented in this encounter Results * (ABNORMAL) C REACTIVE PROTEIN (08/17/2022) C-Reactive Protein, External 1.25(A) 0.0 - 0.3 mg/dL [facility] Blood VENOUS BLOOD / Unknown 08/17/2022 us Venecia Vega MD CHEMISTRY & BLOOD GAS OR DERABLES Final Result [facility] * (ABNORMAL) COMPLETE BLOOD COUNT AND DIFFERENTIAL (08/17/2022) WBC, External 10.47 4.4 - 10.8 [facility] RBC, External 4.51 3.93 - 5.22 [facility] Hemoglobin, External 13.2 11.2 - 15.7 [facility] HCT, External 41.0 36.0 - 46.0 [facility] MCV, External 91 80 - 95 [facility] MCH, External 29.3 27.0 - 33.0 [facility] MCHC, External 32.2 32.0 - 36.0 [facility] PLT, External 577(A) 130 - 400 [facility] RDW-CV, External 14.0 11.7 - 14.6 [facility] Neutrophils, External 57.2 [facility] Lymphocytes, External 30.6 [facility] Monocytes, External 6.9 [facility] Eosinophils, External 4.4 [facility] Basophils, External 0.5 [facility] ABS Neutrophils, External 6.00 1.2 - 6.7 [facility] ABS Lymphs, External 3.20 1.2 - 3.4 [facility] ABS Monocytes, External 0.72 0.1 - 0.8 [facility] ABS Eosinophils, External 0.46 0.0 - 0.7 [facility] ABS Basophils, External 0.05 0.0 - 0.2 [facility] Blood VENOUS BLOOD / Unknown 08/17/2022 us Venecia Vega MD PACKAGES & DNA PROBE ORD ERABLES Final Result [facility] * (ABNORMAL) COMPREHENSIVE METABOLIC PANEL (CMP) (08/17/2022) GFR, Calculated, External 96.06 >=60 [facility] Glucose, Serum, External 108(A) 74 - 106 [facility] Albumin, External 3.8 3.4 - 5.0 [facility] Total Alkaline Phosphatase, External 89 46 - 116 [facility] ALT, External 45 14 - 59 [facility] AST, External 32 15 - 37 [facility] BUN, External 11 7 - [address] [facility] Calculated Calcium, External [facility] Calcium, External 8.9 8.5 - 10.1 [facility] Chloride, External 105 98 - 107 [facility] CO2, External 26.9 21.0 - 32.0 [facility] Creatinine, External 0.8 0.55 - 1.02 [facility] Fasting?, External [facility] Potassium, External 3.6 3.5 - 5.1 [facility] Sodium, External 140 136 - 145 [facility] Total Protein, External 7.5 6.4 - 8.2 [facility] Bilirubin, Total, External 0.3 0.2 - 1.0 [facility] Blood VENOUS BLOOD / Unknown 08/17/2022 us Venecia Vega MD CHEMISTRY & BLOOD GAS OR DERABLES Final Result Performing Organization Address City/State/[facility] Co de Phone Number [facility] documented in this encounter Visit Diagnoses Not on filedocumented in this encounter Care Teams Rotary Screen Printing Machine Operator Relationship Specialty Start Date End Date Rebeca Miller APRN [address] [place] [address] PCP - General Family Medicine - Primary Care 11/21/21 03/07/24 documented as of this encounter
--- OUTSIDE RECORDS SUMMARY | 2024-05-25 12:45 | XMS_ITS | Encounter Summary ---
Author Organization [facility] Address [address] [place] [address] Care Team Providers Care Environmental Services Manager Name Role Phone PaulRebeca George AGUILERA Primary Care Provider Reason for Visit * Reason Comments Medication Management Humira weekly/plaq uenil 200 mg dayMedication management. Encounter Details Date Type Department Care Team (Late st Contact Info) Description 12/29/2022 8:45 EDT Telemedicine [facility] [place] [address] [place] [address] Venecia Vega MD 130 [facility] [address] [place] [address] Chronic pain of right knee [...] Venecia Vega MD - 12/29/2022 0845 EDT [facility] Video Visit Today's visit was provided through [...] of labs neg ASO titer, LABS SCANS [facility] wbc 14, heg 13.6 chronic thrombocytosis 577 [...] Contact Info) Description 09/21/2024 8:15 EDT Telemedicine [facility] Rheumatology [address] [place], [place] [phone] Venecia Vega MD [address] [place] [address] [address] [place] [phone] documented as of this encounter Visit Diagnoses [...] documented as of this encounter Care Teams Environmental Services Manager Relationship Specialty Start Date End Date Rebeca Miller APRN [address] [place] [phone] PCP - General Family Medicine - Primary Care 5/20/22 9/3/24 documented as of this encounter
--- OUTSIDE RECORDS SUMMARY | 2024-05-25 12:45 | XMS_ITS | Encounter Summary ---
Author Organization [facility] Address [address] [place] [address] Care Team Providers Care Business Analysis Analyst Name Role Phone Rebeca Miller APRN Primary Care Provider Corine Coulter Primary Care Provider [phone] Encounter Details Date Type Department Care Team (Late st Contact Info) Description 04/27/2022 Specialty Pharmacy [facility] - [facility] [address] [place] [address] [place], [facility] Social History Tobacco Use Types [...] Contact Info) Description 09/21/2024 8:15 EDT Telemedicine [facility] Rheumatology [address] [place], [place] [phone] Venecia Vega MD [address] [facility] [address] [place] [address] documented as of this encounter Visit Diagnoses Not on filedocumented in this encounter Care Teams Business Analysis Analyst Relationship Specialty Start Date End Date Rebeca Miller APRN [address] [place] [address] PCP - General Family Medicine - Primary Care 11/21/21 03/07/24 Corine Coulter [address] [place] [address] PCP - General Family Medicine - Primary Care 03/08/24 documented as of this encounter
--- OUTSIDE RECORDS SUMMARY | 2024-05-25 12:45 | XMS_ITS | Encounter Summary ---
Author Organization [facility] Address [address] [place] [address] Care Team Providers Care Chief Clinical Dietitian Name Role Phone Paul Rebeca George AGUILERA Primary Care Provider Encounter Details Date Type Department Care Team (Late st Contact Info) Description 12/07/2022 Transcribe Orders [facility] [place] [place] Rheumatology [address] [place] [address] Venecia Vega MD 130 [facility] [address] [place] [address] Swelling of left knee joint [...] Contact Info) Description 09/21/2024 8:15 EDT Telemedicine [facility] Rheumatology [address] [place] [address] Venecia Vega MD [address] [place] [address]-[address] [place] [phone] Scheduled Orders Name Type Priority Associated Diagnoses Orde r Schedule ANAPLASMA AND BABESIA TESTING BY PCR Lab Routine Swelling of left knee joint Ordered: 12/07/2022 documented as of this encounter Visit Diagnoses Diagnosis Swelling of left knee joint- Primary Effusion of lower leg joint documented in this encounter Care Teams Chief Clinical Dietitian Relationship Specialty Start Date End Date Rebeca Miller APRN [address] [place] [place] [address] PCP - General Family Medicine - Primary Care 11/21/21 03/07/24 documented as of this encounter
--- OUTSIDE RECORDS SUMMARY | 2024-05-25 12:45 | XMS_ITS | Encounter Summary ---
Author Organization [facility] Address [address] [place] [address] Care Team Providers Care Soil Conservationist Name Role Phone Rebeca Miller George AGUILERA Primary Care Provider [phone] Encounter Details Date Type Department Care Team (Late st Contact Info) Description 02/02/2023 Orders Only [facility] Rhe[facility]ology [address] [place] [address] Katt Stringer RN Ankylosing spondylitis of sacral region ([facility]) (Primary Dx) Social History Tobacco Use Types [...] End Date hydrOXYchloroQUINE (PLAQUENIL) 200 mg tabletIndications: Ankylosing spondylitis of sacral region (HCC-CMS) Take 1 Tablet by mouth 2 times daily. 180 Tablet 3 02/02/2023 03/08/2024 documented in this encounter Plan of Treatment Upcoming Encounters Date Type Department Care Team (Late st Contact Info) Description 09/21/2024 8:15 EDT Telemedicine [facility] Rheumatology [address] [place] [address] Venecia Vega MD 130 [facility] [address] [place] [phone] documented as of this encounter Visit Diagnoses Diagnosis Ankylosing spondylitis of sacral region (HCC-CMS)- Primary documented in this encounter Discontinued Medications Medication Sig Discontinue Reason Start Date End Da te hydrOXYchloroQUINE (PLAQUENIL) 200 mg tabletIndications:Ankylos ing spondylitis of sacral region (HCC-CMS) Take 1 Tablet by mouth 2 times daily. Reorder 01/20/2023 02/02/2023 documented as of this encounter Care Teams Soil Conservationist Relationship Specialty Start Date End Date Rebeca Miller APRN [address] [place] [phone] PCP - General Family Medicine - Primary Care 11/21/21 03/07/24 documented as of this encounter
--- OUTSIDE RECORDS SUMMARY | 2024-05-25 12:45 | XMS_ITS | Encounter Summary ---
Author Organization [facility] Address [address] [place] [address] Care Team Providers Care Light Armored Vehicle Officer Name Role Phone Rebeca Miller George AGUILERA Primary Care Provider [phone] Reason for Visit * Reason Onset Date Comments Pre-visit Orders 07/28/2022 Encounter Details Date Type Department Care Team (Late st Contact Info) Description 07/28/2022 Telephone [facility] - [facility] Adult Hematology & Oncology [address] [place] [phone] Yoly Myers MD [address] [place] [address] Pre-visit Orders Social History Tobacco [...] Needs labs. She will be going to [facility] to get these done. The orders are in Brett's name please change to Erik and I will fax to [facility]. Thanks. documented in this encounter Plan of Treatment Upcoming Encounters Date Type Department Care Team (Late st Contact Info) Description 09/21/2024 8:15 EDT Telemedicine [facility] - [facility] Rheumatology [address] [place], [place] [phone] Venecia Vega MD 130 [facility] [address] [place] [phone] documented as of this encounter Visit Diagnoses Diagnosis Thrombocytosis- Primary Essential thrombocythemia Lymphocytosis Lymphocytosis (symptomatic) documented in this encounter Care Teams Light Armored Vehicle Officer Relationship Specialty Start Date End Date Rebeca Miller APRN [address] [place] [phone] PCP - General Family Medicine - Primary Care 11/21/21 03/07/24 documented as of this encounter
--- OUTSIDE RECORDS SUMMARY | 2024-05-25 12:45 | XMS_ITS | Encounter Summary ---
Author Organization [facility] Address [address] [place] [address] Care Team Providers Care Pharmacy Tech Customer Service Name Role Phone PaulRebeca juan George AGUILERA Primary Care Provider Encounter Details Date Type Department Care Team (Late st Contact Info) Description 06/02/2022 Specialty Pharmacy [facility] Ambulatory [facility] - [facility] [address] [place] [address] [place], [facility] Social History Tobacco Use Types Packs/Day [...] documented in this encounter Progress Notes * Jeff Garland RPH - 06/02/2022 1054 EST [facility] Specialty Pharmacy Delivery Information Hours: Wednesday-Wednesday 8:30am - 5:00pm *Pharmacist available clearing distribution clerk 25/01 Delivery Service: [employer] Delivery Window: None Specified Date of Delivery: 06/08/2022 Tracking # : [id number] Electronically signed by Jeff Garland [facility] at 06/02/2022 14:33 EST documented in this encounter Plan of Treatment Upcoming Encounters Date Type Department Care Team (Late st Contact Info) Description 09/21/2024 8:15 EDT Telemedicine [facility] Rheumatology [address] [place], [place] [phone] Venecia Vega MD [address] [facility] [address] [place] [phone] documented as of this encounter Visit Diagnoses Not on filedocumented in this encounter Care Teams Pharmacy Tech Customer Service Relationship Specialty Start Date End Date Rebeca Miller APRN 4 [facility] [place] [place] [address] PCP - General Family Medicine - Primary Care 11/21/21 03/07/24 documented as of this encounter
--- OUTSIDE RECORDS SUMMARY | 2024-05-25 12:45 | XMS_ITS | Encounter Summary ---
Author Organization [facility] Address [address] [place] [address] Care Team Providers Care Civil Preparedness Officer Name Role Phone PaulRebeca juan George AGUILERA Primary Care Provider Encounter Details Date Type Department Care Team (Late st Contact Info) Description 07/22/2022 Specialty Pharmacy [facility] - [facility] [address] [place] [address] [place], [facility] Social History Tobacco Use Types Packs/Day [...] Info) Description 09/21/2024 8:[address] [facility] Rheumatology [address] [place] [address] Venecia Vega MD 130 [facility] [address] [place] [address] documented as of this encounter Visit Diagnoses Not on filedocumented in this encounter Care Teams Civil Preparedness Officer Relationship Specialty Start Date End Date Rebeca Miller APRN [address] [place] [address] PCP - General Family Medicine - Primary Care 11/21/21 03/07/24 documented as of this encounter
--- OUTSIDE RECORDS SUMMARY | 2024-05-25 12:45 | XMS_ITS | Encounter Summary ---
Author Organization [facility] Address [address] [place] [address] Care Team Providers Care Industrial Economist Name Role Phone PaulRebeca juan George AGUILERA Primary Care Provider [phone] Encounter Details Date Type Department Care Team (Late st Contact Info) Description 10/13/2022 Specialty Pharmacy [facility] Ambulatory Pharmacy - [facility] [address] [place] [address] [place], [facility] Social History Tobacco Use [...] Contact Info) Description 09/21/2024 8:15 EDT Telemedicine [facility] Rheumatology [address] [place] [address] Venecia Vega MD 130 [facility] [place] [address] documented as of this encounter Visit Diagnoses Not on filedocumented in this encounter Care Teams Industrial Economist Relationship Specialty Start Date End Date Rebeca Miller APRN [address] [place] [address] PCP - General Family Medicine - Primary Care 11/21/21 03/07/24 documented as of this encounter
--- OUTSIDE RECORDS SUMMARY | 2024-05-25 12:45 | XMS_ITS | Encounter Summary ---
Author Organization [facility] Address [address] [place] [address] Care Team Providers Care Broom Builder Name Role Phone Rebeca Miller APRN Primary Care Provider Corine Coulter Primary Care Provider [phone] Encounter Details Date Type Department Care Team (Late st Contact Info) Description 11/19/2022 Lab Requisition [facility] Pathology & Laboratory Medicine - [facility] [address] [place] [address] Outr Resulting Lab, Provider Social History Tobacco [...] Contact Info) Description 09/21/2024 8:15 EDT Telemedicine [facility] Rheumatology [address] [place] [address] Venecia Vega MD [address] [place] [address]-[address] [place] [address] documented as of this encounter Procedures Procedure Name Priority Date/Time Associated Diagnosis Comments LYME AB Routine 11/18/2022 9:40 EDT documented in this encounter Results * LYME AB (11/18/2022 9:40 EDT) Lyme Ab Negative Negative 11/20/2022 10:34 EDT [facility] Blood VENOUS BLOOD / Unknown 11/18/2022 9:40 EDT 11/19/2022 17:24 EDT us Provider Outr Resulting Lab IMMUNOLOGY AND SEROL OGY ORDERABLES Final Result [facility] [address] [place] [address] documented in this encounter Visit Diagnoses Not on filedocumented in this encounter Care Teams Broom Builder Relationship Specialty Start Date End Date Rebeca Miller APRN [address] [place] [address] PCP - General Family Medicine - Primary Care 11/21/21 03/07/24 Corine Coulter [address] [place] [phone] PCP - General Family Medicine - Primary Care 03/08/24 documented as of this encounter
--- OUTSIDE RECORDS SUMMARY | 2024-05-25 12:45 | XMS_ITS | Encounter Summary ---
Author Organization [facility] Address [address] [place] [address] Care Team Providers Care Senior Chemical Process Engineer Name Role Phone Paul Rebeca Vazquez APRN Primary Care Provider Reason for Visit * Reason Onset Date Comments Medications Refill 12/28/2022 Encounter Details Date Type Department Care Team (Late st Contact Info) Description 12/28/2022 Refill [facility] [place] [address] [place], [place] [phone] Venecia Vega MD 130 [facility] [address] [place] [address] Medications Refill Social History Tobacco [...] Contact Info) Description 09/21/2024 8:15 EDT Telemedicine [facility] Rheumatology [address] [place], [place] [phone] Venecia Vega MD 130 [facility] [address] [place] [address] documented as of this encounter Visit Diagnoses Diagnosis 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
--- OUTSIDE RECORDS SUMMARY | 2024-05-25 12:45 | XMS_ITS | Encounter Summary ---
Author Organization [facility] Address [address] [place] [address] Care Team Providers Care Sustainability Project Coordinator Name Role Phone PaulRebeca juan George AGUILERA Primary Care Provider Encounter Details Date Type Department Care Team (Late st Contact Info) Description 07/08/2022 Specialty Pharmacy [facility] [address] [place] [address] [place], [facility] Social History Tobacco Use [...] documented in this encounter Progress Notes * Celeste Velazquez - 07/08/2022 0942 EST Rx received 07/21/22, RTS until 08/01/22--profiled. documented in this encounter Plan of Treatment Upcoming Encounters Date Type Department Care Team (Late st Contact Info) Description 09/21/2024 8:15 EDT Telemedicine [facility] Rheumatology [address] [place], [place] [address] Venecia Vega MD 130 [facility] [address] [place] [phone] documented as of this encounter Visit Diagnoses Not on filedocumented in this encounter Care Teams Sustainability Project Coordinator Relationship Specialty Start Date End Date Rebeca Miller APRN [address] [place] [phone] PCP - General Family Medicine - Primary Care 11/21/21 03/07/24 documented as of this encounter
--- OUTSIDE RECORDS SUMMARY | 2024-05-25 12:45 | XMS_ITS | Encounter Summary ---
Author Organization [facility] Address [address] [place] [address] Care Team Providers Care Tool Specialist Name Role Phone Paul Rebeca George AGUILERA Primary Care Provider Reason for Visit * Reason Comments Follow-up Ankylosing spondylit is. Encounter Details Date Type Department Care Team (Late st Contact Info) Description 01/20/2023 8:45 EDT Telemedicine [facility] Rheumatology [address] [place], [place] [phone] Venecia Vega MD 130 [facility] [address] [place] [address] Vaginal yeast infection (Primary Dx); [...] - documented in this encounter Functional Status * [...] 2 times daily. 180 Tablet 3 01/20/2023 3 fluconazole (DIFLUCAN) 150 mg tabletIndications: Vaginal yeast infection 1 tablet for vaginal yeast infection may repeat x 1 for recurrence after 72 hours 2 Tablet 01/20/2023 4 documented in this encounter Progress Notes * Venecia Vega MD - 01/20/2023 0873 EDT [facility] [...] Ankylosing spondylitis of multiple sites in spine ([facility]) 4. High risk medication use eye exam [...] Telemedicine [facility] Rheumatology [address] [place] [address] Venecia Vega MD [address] [place] [address]-[address] [place] [phone] documented as of this encounter Visit Diagnoses Diagnosis Vaginal yeast infection- Primary Candidiasis of vulva and vagina Ankylosing spondylitis of sacral region (HCC-CMS) Ankylosing spondylitis of multiple sites in spine ([facility]) Ankylosing spondylitis High risk medication use Encounter for long-term (current) use of other medications documented in this encounter Discontinued Medications Medication Sig Discontinue Reason Start Date End Da te hydrOXYchloroQUINE (PLAQUENIL) 200 mg tabletIndications:Spondy loarthropathy Take 1 Tablet by mouth daily. Reorder 12/29/2022 01/20/2023 documented as of this encounter Care Teams Tool Specialist Relationship Specialty Start Date End Date Rebeca Miller APRN [address] [place] [phone] PCP - General Family Medicine - Primary Care 11/21/21 03/07/24 documented as of this encounter
--- OUTSIDE RECORDS SUMMARY | 2024-05-25 12:45 | XMS_ITS | Encounter Summary ---
Author Organization [facility] Address [address] [place] [address] Care Team Providers Care New Car Driver Name Role Phone PaulRebeca juan George AGUILERA Primary Care Provider Encounter Details Date Type Department Care Team (Late st Contact Info) Description 12/10/2022 Specialty Pharmacy [facility] Ambulatory Pharmacy - [facility] [address] [place] [address] [place], [facility] Social History Tobacco Use Types Packs/Day Years [...] Contact Info) Description 09/21/2024 8:15 EDT Telemedicine [facility] Rheumatology [address] [place] [address] Venecia Vega MD 130 [facility]- [address] [place] [address] documented as of this encounter Visit Diagnoses Not on filedocumented in this encounter Care Teams New Car Driver Relationship Specialty Start Date End Date Rebeca Miller APRN [address] [place] [address] PCP - General Family Medicine - Primary Care 11/21/21 03/07/24 documented as of this encounter
--- OUTSIDE RECORDS SUMMARY | 2024-05-25 12:45 | XMS_ITS | Encounter Summary ---
Author Organization [facility] Address [address] [place] [address] Care Team Providers Care Pharmaceutical Compounding Supervisor Name Role Phone PaulRebeca juan George AGUILERA Primary Care Provider [phone] Reason for Visit * Reason Onset Date Comments Results 09/07/2022 Encounter Details Date Type Department Care Team (Late st Contact Info) Description 09/07/2022 Telephone [facility] [place] Hematology & Oncology [address] [place] [phone] Yoly Valencia MD [address] [place] [address] Results Social History Tobacco Use [...] Telemedicine [facility] Rheumatology [address] [place], [place] [address] Venecia Vega MD 130 [facility] [address] [place] [address] documented as of this encounter Visit Diagnoses Not on filedocumented in this encounter Care Teams Pharmaceutical Compounding Supervisor Relationship Specialty Start Date End Date Rebeca Miller APRN [address] [place] [phone] PCP - General Family Medicine - Primary Care 11/21/21 03/07/24 documented as of this encounter
--- OUTSIDE RECORDS SUMMARY | 2024-05-25 12:46 | XMS_ITS | Encounter Summary ---
Author Organization [facility] Address [address] [place] [address] Care Team Providers Care Contour Sander Name Role Phone Phoebe Iyer ABHAY Primary Care Provider Reason for Visit * Reason Comments Follow-up F/U SNRA.Pt reports jointts are very sore and soreness throughout her body.Just restarted Rinvoq last Wednesday because had Covid.Held it for a couple of weeks. Encounter Details Date Type Department Care Team (Latest Contact Info) Description 07/30/2021 15:15 EST Telemedicine [facility] Rheumatology [address] [place] [address] Venecia Vega MD 130 [facility] [address] [place] [address] Seronegative spondyloarthropathy (Primary Dx); Sacroiliitis [...] Venecia Vega MD - 07/30/2021 1515 EST [facility] Video Visit Today's visit was provided through [...] allopathic care to pursue naturopathic care. Rx [id number] antibiotics/supplements prednisone from [place] not effective - [...] with increased back pain at night, xray 2016 reviewed and shows SI arthritis. Seronegative spondyloarthropathy [...] Contact Info) Description 09/21/2024 8:15 EDT Telemedicine [facility] - [facility] Rheumatology [address] [place] [address] Venecia Vega MD [address] [place] [address] [address] [place] [address] documented as of this encounter Visit Diagnoses Diagnosis Seronegative spondyloarthropathy- Primary Spondylosis of unspecified site without mention of myelopathy Sacroiliitis (HCC-CMS) Sacroiliitis, not elsewhere classified High risk medication use Encounter for long-term (current) use of other medications documented in this encounter Care Teams Contour Sander Relationship Specialty Start Date End Date Phoebe Iyer FNP PCP - General 07/09/20 11/20/21 documented as of this encounter
--- OUTSIDE RECORDS SUMMARY | 2024-05-25 12:46 | XMS_ITS | Encounter Summary ---
Author Organization [facility] Address [address] [place] [address] Care Team Providers Care Matrix Bath Attendant Name Role Phone Phoebe Iyer ABHAY Primary Care Provider [phone] Reason for Visit * Reason Onset Date Comments Results 08/22/2021 Encounter Details Date Type Department Care Team (Late st Contact Info) Description 08/22/[address] [facility] Rheumatology [address] [place] [phone] Katt Stringer RN Results Social History Tobacco [...] been holding Rinvoq and hasn't heard from Nicki about theRUQ ultrasound. Order refaxed and she [...] Lesly Elizabeth Sent: 08/22/2021 8:08 EST To: [facility] Rheumatology Nurse documented in this encounter Plan of Treatment Upcoming Encounters Date Type Department Care Team (Late st Contact Info) Description 09/21/2024 8:[address] [facility] Rheumatology [address] [place] [address] Venecia Vega MD 130 [facility]- [address] [place] [address] documented as of this encounter Visit Diagnoses Not on filedocumented in this encounter Care Teams Matrix Bath Attendant Relationship Specialty Start Date End Date Phoebe Iyer FNP PCP - General 07/09/20 11/20/21 documented as of this encounter
--- OUTSIDE RECORDS SUMMARY | 2024-05-25 12:46 | XMS_ITS | Encounter Summary ---
Author Organization [facility] Address [address] [place] [address] Care Team Providers Care Machinery Engineer Name Role Phone Phoebe Iyer ABHAY Primary Care Provider [phone] Reason for Visit * Reason Comments Follow-up For SN Spondyloarthr opathy patient reports ankles/knees still very sore everyday. got bloodwork done 10/14/21. Encounter Details Date Type Department Care Team (Late st Contact Info) Description 10/15/2021 9:45 EDT Telemedicine [facility] Rheumatology [address] [place] [address] Venecia Vega MD [address] [facility] [address] [place] [address] Seronegative rheumatoid arthritis (HCC-CMS) (HCC) [...] Call our office if you have questions. [facility] Patient Instructions cilgavimab and tixagevimab Brand: Evusheld What is the most important information I [...] may report side effects to FDA at 1-495-AGK-1883. What other drugs will affect cilgavimab and tixagevimab? Other drugs may affect cilgavimab and tixagevimab, including prescription and upal-vps-bjepftw medicines, vitamins, and herbal products. Tell your [...] to ensure that the information provided by [employer] ('[employer]') is accurate, up-to-date, and complete, but no guarantee is made to that effect. Drug information contained herein may be time sensitive. [employer] information has been compiled for use by healthcare practitioners and consumers in the [place] and therefore [employer] does not warrant that uses outside of the [place] are appropriate, unless specifically indicated otherwise. [employer] drug information does not endorse drugs, diagnose patients or recommend therapy. [employer] drug information isan informational resource designed to [...] effective or appropriate for any given patient. [facility] does not assume any responsibility for any aspect of healthcare administered with the aid of information [facility] provides. The information contained herein is not intended to cover all possible uses, directions, precautions, warnings, drug interactions, allergic reactions, or adverse effects. If you have questions about the drugs you are taking, check with your doctor, nurse or pharmacist. Copyright 0513-9739 [facility] [employer]. Version: 1.01. Revision date: 06/17/2021. Care instructions adapted under license by [facility]. If you have questions about a medical condition or this instruction, always ask your healthcare professional. [employer] disclaims any warranty or liability for your use of this information. documented in this encounter Ordered Prescriptions Prescription Sig Dispense Quantity Refills Last Filled Start Date End Date predniSONE (DELTASONE) 5 mg tabletIndications: Seronegative rheumatoid arthritis (HCC-CMS) Take 1 Tablet by mouth daily for 14 days. 14 Tablet 3 10/15/2021 10/29/2021 documented in this encounter Progress Notes * Venecia Vega MD - 10/15/2021 0945 EDT [facility] Video Visit Today's visit was provided through [...] medical history. Laboratory testingresults from 10/14/2021 at [facility] -LFTs normal, CBC normal. CRP elevated [...] these risks. 1. Seronegative rheumatoid arthritis (HCC-CMS) ([facility]) predniSONE (DELTASONE) 5 mg tablet Continue to have significant 5 mg twice daily Expect improved control next 1 to 2 weeks -Prednisone burst 5 mg daily x14 days 2. High risk medication use Labs reviewed CRP improved -Repeat CBC, CMP CRP every 3 months -Hold NSAIDs while taking prednisone -Consider Evusheld therapy vs COVID 19 3. Immunocompromised (HCC-CMS) ([facility]) I spent a total of 23 minutes [...] Info) Description 09/21/2024 8:15 EDT Telemedicine [facility] Rheumatology [address] [place], [place] [address] Venecia Vega MD [address] [place] [address] [place] [phone] documented as of this encounter Visit Diagnoses Diagnosis Seronegative rheumatoid arthritis ([facility])- Primary Rheumatoid arthritis High risk medication use Encounter for long-term (current) use of other medications Immunocompromised ([facility]) Unspecified immunity deficiency documented in this encounter Historical Medications * This list may reflect changes made after this encounter. loratadine (CLARITIN) 10 mg tablet Take 1 Tablet by mouth daily. added in this encounter Care Teams Machinery Engineer Relationship Specialty Start Date End Date Phoebe Iyer FNP PCP - General 07/09/20 11/20/21 documented as of this encounter
--- OUTSIDE RECORDS SUMMARY | 2024-05-25 12:46 | XMS_ITS | Encounter Summary ---
Author Organization [facility] Address [address] [place] [address] Care Team Providers Care Director Of Coding Name Role Phone Paul Rebeca Vazquez APRN Primary Care Provider Reason for Visit * Reason Onset Date Comments Pre-visit Orders 11/21/2021 Encounter Details Date Type Department Care Team (Late st Contact Info) Description 11/21/2021 Telephone [facility] [address] [place], [place] [phone] Venecia Vega MD [address] [facility] [address] [place] [address] Pre-visit Orders Social History Tobacco [...] - 11/24/2021 1034 EDT Orders faxed to [facility] per patient request. Pt aware to get [...] Contact Info) Description 09/21/2024 8:15 EDT Telemedicine [facility] Rheumatology [address] [place] [address] Venecia Veag MD [address] [facility] [address] [place] [address] documented as of this encounter Visit Diagnoses Diagnosis Seronegative rheumatoid arthritis (HCC-CMS)- Primary Rheumatoid arthritis High risk medication use Encounter for long-term (current) use of other medications documented in this encounter Care Teams Director Of Coding Relationship Specialty Start Date End Date Rebeca Miller, WILLY [address] [place] [phone] PCP - General Family Medicine - Primary Care 11/21/21 03/07/24 documented as of this encounter
--- OUTSIDE RECORDS SUMMARY | 2024-05-25 12:46 | XMS_ITS | Encounter Summary ---
Author Organization [facility] Address [address] [place] [address] Care Team Providers Care Post Closing Specialist Name Role Phone Phoebe Iyer ABHAY Primary Care Provider [phone] Reason for Visit * Reason Onset Date Comments Labs Only 10/07/2021 Encounter Details Date Type Department Care Team (Late st Contact Info) Description 10/07/2021 Telephone [facility] [place] [address] [place], [place] [phone] Venecia Vega MD 130 [facility] [address] [place] [address] Labs Only Social History Tobacco [...] every 3 month thereafter. Left message with [facility] front office administrator staff as Petty was not available. Lab orders re-faxed with notes on instructions for frequency and timing. * Telephone Encounter - Lsely Elizabeth - 10/07/2021 1151 EDT [facility] called back. They are all set, please disregard TE. * Telephone Encounter - Lesly Elizabeth - 10/07/2021 1145 EDT [facility] calling re: lab orders. Patient [...] Contact Info) Description 09/21/2024 8:15 EDT Telemedicine [facility] Rheumatology [address] [place], [place] [address] Venecia Vega MD [address] [facility] [address] [place] [address] documented as of this encounter Visit Diagnoses Diagnosis Seronegative rheumatoid arthritis ([facility])- Primary Rheumatoid arthritis High risk medication use Encounter for long-term (current) use of other medications documented in this encounter Care Teams Post Closing Specialist Relationship Specialty Start Date End Date Phoebe Iyer FNP PCP - General 07/09/20 11/20/21 documented as of this encounter
--- OUTSIDE RECORDS SUMMARY | 2024-05-25 12:46 | XMS_ITS | Encounter Summary ---
Author Organization [facility] Address [address] [place] [address] Care Team Providers Care Addiction Social Worker Name Role Phone Phoebe Iyer ABHAY Primary Care Provider [phone] Rebeca Miller APRN Primary Care Provider [phone] Croine Coulter Primary Care Provider [phone] Reason for Visit * Reason Onset Date Comments Prior Auth, Medication 09/22/2021 Xeljanz 5 mg Encounter Details Date Type Department Care Team (Late st Contact Info) Description 09/22/2021 Telephone [facility] Rhe[facility] [address] [place] [address] Venecia Vega MD [address] [facility] [address] [place] [address] Prior Auth, Medication (Xeljanz 5mg) [...] Telephone Encounter - Chacha Riojas - 09/22/2021 1055 EDT Prior Authorization Approval Medication: Xeljanz 5mg, BID Insurance Name: [facility] Insurance Type: [place] Approval Dates: 09/23/2021 to 09/23/2022 Authorization Number: [id number] Benefits Information: [facility] able to fill? : Yes Required Pharmacy: N/A Additional Info/Other Notes: Prior Authorization Submission Process - Routine Medication: Xeljanz 5mg, BID [place] Request Received: 09/18/2021 [place] Submission Date: 09/22/2021 CMM Monahan: N/A fax form to [facility] Notes: Submitted by: Chacha Phone: [phone] documented in this encounter Plan of Treatment Upcoming Encounters Date Type Department Care Team (Late st Contact Info) Description 09/21/2024 8:15 EDT Telemedicine [facility] Rheumatology [address] [facility] [place] [phone] Venecia Vega MD [address] [facility] [address] [place] [address] documented as of this encounter Visit Diagnoses Not on filedocumented in this encounter Discontinued Medications Medication Sig Discontinue Reason Start Date End Da te tofacitinib (XELJANZ) 5 mg tabletIndications:rheumat oid arthritis Take 5 mg by mouth 2 times daily. Reorder 09/23/2021 documented as of this encounter Care Teams Addiction Social Worker Relationship Specialty Start Date End Date Phoebe Iyer FNP PCP - General 07/09/20 11/20/21 Rebeca Miller APRN [address] [place] [address] PCP - General Family Medicine - Primary Care 11/21/21 03/07/24 Corine Coulter [address] [place] [address] PCP - General Family Medicine - Primary Care 03/08/24 documented as of this encounter
--- OUTSIDE RECORDS SUMMARY | 2024-05-25 12:46 | XMS_ITS | Encounter Summary ---
Author Organization [facility] Address [address] [place] [address] Care Team Providers Care In Store Banker Name Role Phone Phoebe Iyer ABHAY Primary Care Provider [phone] Encounter Details Date Type Department Care Team (Late st Contact Info) Description 06/24/[address] [facility] [address] [place] [address] Cortney Uribe [facility] Social History [...] touch base regarding Rinvoq approval and offer [facility]. * Cortney Hopper RPH - 06/24/2021 0903 EST [facility] [place] Medication Therapy Initiation Note Arabella Ojeda [...] sending lab work (CBC and CMP) to [facility] forcompletion with phone call follow up in [...] Information regarding Rinvoq provided to patient. Offered [facility] SpRX services, Arabella would like [...] 8:15 EDT Telemedicine [facility] Rheumatology [address] [place] [address] Venecia Vega MD [address] [facility] [address] [place] [phone] documented as of this encounter Visit Diagnoses Not on filedocumented in this encounter Care Teams In Store Banker Relationship Specialty Start Date End Date Phoebe Iyer FNP PCP - General 07/09/20 11/20/21 documented as of this encounter
--- OUTSIDE RECORDS SUMMARY | 2024-05-25 12:46 | XMS_ITS | Encounter Summary ---
Author Organization [facility] Address [address] [place] [address] Care Team Providers Care Environmental Studies Professor Name Role Phone Paul Rebeca George AGUILERA Primary Care Provider [phone] Reason for Visit * Reason Comments Medication Management flares due to miss ashley patrick for infection. right now on antibitoics for a urinary tract infection. Encounter Details Date Type Department Care Team (Late st Contact Info) Description 03/11/2022 9:[address] [facility] Rheumatology [address] [place], [place] [phone] Venecia Vega MD [address] [facility] [address] [place] [address] Rheumatoid arthritis, seronegative, multiple sites [...] Venecia Vega MD - 03/11/2022 0915 EDT [facility] Video [...] platelets ? Etiology 1. Seronegative rheumatoid arthritis ([facility]) ([facility]) Xeljanz effective, misses a week a month [...] Description 09/21/2024 8:15 EDT Telemedicine [facility] Rheumatology [address] [place] [address] Venecia Vega MD [address] [facility] [address] [place] [address] documented as of this encounter Visit Diagnoses Diagnosis Rheumatoid arthritis, seronegative, multiple sites ([facility])- Primary Thrombocytosis Essential thrombocythemia High risk medication use Encounter for long-term (current) use of other medications documented in this encounter Care Teams Environmental Studies Professor Relationship Specialty Start Date End Date Rebeca Miller APRN [address] [place] [address] PCP - General Family Medicine - Primary Care 11/21/21 03/07/24 documented as of this encounter
--- OUTSIDE RECORDS SUMMARY | 2024-05-25 12:46 | XMS_ITS | Encounter Summary ---
Author Organization [facility] Address [address] [place] [address] Care Team Providers Care Nuclear Cardiology Technologist Name Role Phone Phoebe Iyer ABHAY Primary Care Provider [phone] Encounter Details Date Type Department Care Team (Late st Contact Info) Description 09/18/2021 Orders Only [facility] Rheumatology [address] [place], [place] [address] Cande Young RN Elevated liver enzymes (Primary [...] documented in this encounter Progress Notes * Cande Young, RN - 09/18/2021 1626 EDT Standing orders for LFTs, creatinine, and CBC placed per Dr. Vega instruction. To be drawn in a month and then every 3 months thereafter. Orders faxed to [facility] per patient preference. documented in this encounter Plan of Treatment Upcoming Encounters Date Type Department Care Team (Late st Contact Info) Description 09/21/2024 8:15 EDT Telemedicine [facility] Rheumatology [address] [place] [address] Venecia Vega MD [address] [facility] [address] [place] [phone] documented as of this encounter Visit Diagnoses Diagnosis Elevated liver enzymes- Primary Other nonspecific abnormal serum enzyme levels Seronegative rheumatoid arthritis ([facility]) Rheumatoid arthritis documented in this encounter Care Teams Nuclear Cardiology Technologist Relationship Specialty Start Date End Date Phoebe Iyer FNP PCP - General 07/09/20 11/20/21 documented as of this encounter
--- OUTSIDE RECORDS SUMMARY | 2024-05-25 12:46 | XMS_ITS | Encounter Summary ---
Author Organization [facility] Address [address] [place] [address] Care Team Providers Care Lead Pl Sql Developer Name Role Phone PaulRebeca George AGUILERA Primary Care Provider Encounter Details Date Type Department Care Team (Late st Contact Info) Description 02/10/2022 Specialty Pharmacy [facility] [address] [place] [address] Cortney Uribe [facility] Social History Tobacco Use Types [...] * Shelley Cortes - 02/10/2022 0853 EDT [facility] Specialty Pharmacy Delivery Information Hours: Wednesday-Wednesday 8:30am - 5:00pm *Pharmacist available auto suspension and steering mechanic 25/01 Delivery Service: [employer] Delivery Window: None Specified Date of Delivery: 02/13/22 Tracking # : [id number] documented in this encounter Plan of Treatment Upcoming Encounters Date Type Department Care Team (Late st Contact Info) Description 09/21/2024 8:15 EDT Telemedicine [facility] Rheumatology [address] [place], [place] [address] Venecia Vega MD [address] [facility] [address] [place] [phone] documented as of this encounter Visit Diagnoses Not on filedocumented in this encounter Care Teams Lead Pl Sql Developer Relationship Specialty Start Date End Date Rebeca Miller APRN [address] [place] [phone] PCP - General Family Medicine - Primary Care 11/21/21 03/07/24 documented as of this encounter
--- OUTSIDE RECORDS SUMMARY | 2024-05-25 12:46 | XMS_ITS | Encounter Summary ---
Author Organization [facility] Address [address] [place] [address] Care Team Providers Care Fur Ironer Name Role Phone Phoebe Iyer ABHAY Primary Care Provider Reason for Visit * Reason Comments Follow-up F/U Spondyloarhtropa thy.Pt states doing ok.Reports soreness ankles,knees and wrists. Encounter Details Date Type Department Care Team (Late st Contact Info) Description 05/16/2021 14:45 EST Telemedicine [facility] Rheumatology [address] [place], [place] [address] Venecia Vega MD 130 [facility] [address] [place] [address] Seronegative rheumatoid arthritis (HCC-CMS) (HCC) [...] arthritis. Please have laboratory testing drawn at [facility]. Laboratory testing requests have been faxed to their office. -Please continue your hydroxychloroquine for arthritis -I would like to see you in clinic in about 3 months. documented in this encounter Progress Notes * Venecia Vega MD - 05/16/2021 1445 EST [facility] Video Visit Today's visit was provided through [...] allopathic care to pursue naturopathic care. Rx [id number] anti biotics/supplements prednisone from [place] . PT [...] testing, CRP CBC, CMP -labs faxed to [facility]. Return appointment-3 months Contact our office if any concerns. The following individuals and their role did participate in today's encounter visit: Provider: Venecia Vega MD Patient documented in this encounter Plan of Treatment Upcoming Encounters Date Type Department Care Team (Late st Contact Info) Description 09/21/2024 8:15 EDT Telemedicine [facility] Rheumatology [address] [place] [address] Venecia Vega MD [address] [facility] [address] [place] [phone] documented as of this encounter Visit Diagnoses Diagnosis Seronegative rheumatoid arthritis ([facility])- Primary Rheumatoid arthritis Encounter for long-term (current) [...] may reflect changes made after this encounter. omeprazole (PRILOSEC) 40 mg capsule Take 1 Capsule by mouth daily. added in this encounter Care Teams Fur Ironer Relationship Specialty Start Date End Date Phoebe Iyer FNP PCP - General 07/09/20 11/20/21 documented as of this encounter
--- OUTSIDE RECORDS SUMMARY | 2024-05-25 12:46 | XMS_ITS | Encounter Summary ---
Author Organization [facility] Address [address] [place] [address] Care Team Providers Care Customer Relations Assistant Name Role Phone Phoebe Iyer ABHAY Primary Care Provider Encounter Details Date Type Department Care Team (Late st Contact Info) Description 11/10/2021 Specialty Pharmacy [facility] [address] [place] [address] Cortney Uribe [facility] Social History Tobacco Use Types [...] documented in this encounter Progress Notes * Madhavi Bejarano - 11/10/2021 1401 EDT Specialty Pharmacy Non-Outreach Documentation Medication:Xeljanz Clinic: [facility] Reason for Encounter: outreach Notes: NEXT FILL 11/14/21 Follow up date: 11/14 Follow up reason: refill documented in this encounter Plan of Treatment Upcoming Encounters Date Type Department Care Team (Late st Contact Info) Description 09/21/2024 8:15 EDT Telemedicine [facility] Rheumatology [address] [place] [address] Venecia Vega MD [address] [facility] [address] [place] [phone] documented as of this encounter Visit Diagnoses Not on filedocumented in this encounter Care Teams Customer Relations Assistant Relationship Specialty Start Date End Date Phoebe Iyer FNP PCP - General 07/09/20 11/20/21 documented as of this encounter
--- OUTSIDE RECORDS SUMMARY | 2024-05-25 12:46 | XMS_ITS | Encounter Summary ---
Author Organization [facility] Address [address] [place] [address] Care Team Providers Care Moto Mix Operator Name Role Phone Rebeca Miller WILLY Primary Care Provider [phone] Encounter Details Date Type Department Care Team (Late st Contact Info) Description 02/16/2022 Abstract [facility] [place] [address] [place], [place] [id number] Katt Stringer RN Social History Tobacco Use [...] EDT Telemedicine [facility] Rheumatology [address] [place] [address] Venecia Vega MD 130 [facility] [address] [place] [phone] documented as of this encounter Procedures Procedure Name Priority Date/Time Associated Diagnosis Comments COMPLETE BLOOD COUNT AND DIFFERENTIAL Routine 02/13/2022 C REACTIVE PROTEIN Routine 02/13/2022 COMPREHENSIVE METABOLIC PANEL (CMP) Routine 02/13/2022 documented in this encounter Results * (ABNORMAL) COMPLETE BLOOD COUNT AND DIFFERENTIAL (02/13/2022) WBC, External 12.91(A) 4.4 - 10.8 [facility] RBC, External 4.53 3.93 - 5.22 [facility] Hemoglobin, External 12.7 11.2 - 15.7 [facility] HCT, External 39.7 36.0 - 46.0 [facility] MCV, External 88 80 - 95 [facility] MCH, External 28.0 27.0 - 33.0 [facility] MCHC, External 32.0 32.0 - 36.0 [facility] PLT, External 557(A) 130 - 400 [facility] RDW-CV, External 14.4 11.7 - 14.6 [facility] Neutrophils, External 60.3% [facility] Lymphocytes, External 30.1% [facility] Monocytes, External 7.4% [facility] Eosinophils, External 1.5% [facility] Basophils, External 0.5% [facility] ABS Neutrophils, External 7.78(A) 1.2 - 6.7 [facility] ABS Lymphs, External 3.89(A) 1.2 - 3.4 [facility] ABS Monocytes, External 0.96(A) 0.1 - 0.8 [facility] ABS Eosinophils, External 0.19 0.0 - 0.7 [facility] ABS Basophils, External 0.06 0.0 - 0.2 [facility] Blood VENOUS BLOOD / Unknown 02/13/2022 us Venecia Vega MD PACKAGES & DNA PROBE ORD ERABLES Final Result [facility] * (ABNORMAL) COMPREHENSIVE METABOLIC PANEL (CMP) (02/13/2022) GFR, Calculated, External >=60 >=60 [facility] Glucose, Serum, External 96 74 - 106 [facility] Albumin, External 3.9 3.4 - 5.0 [facility] Total Alkaline Phosphatase, External 73 46 - 116 [facility] ALT, External 62(A) 14 - 59 [facility] AST, External 42(A) 15 - 37 [facility] BUN, External 10 7 - 18 [facility] Calculated Calcium, External [facility] Calcium, External 8.8 8.5 - 10.1 [facility] Chloride, External 103 98 - 107 [facility] CO2, External 27.9 21.0 - 32.0 [facility] Creatinine, External 0.9 0.55 - 1.02 [facility] Fasting?, External [facility] Potassium, External 4.0 3.5 - 5.1 [facility] Sodium, External 140 136 - 145 [facility] Total Protein, External 7.8 6.4 - 8.2 [facility] Bilirubin, Total, External 0.4 0.2 - 1.0 [facility] Blood VENOUS BLOOD / Unknown 02/13/2022 Venecia Vega MD CHEMISTRY & BLOOD GAS OR DERABLES Final Result Performing Organization Address City/[facility] Co de Phone Number [facility] * (ABNORMAL) C REACTIVE PROTEIN (02/13/2022) C-Reactive Protein, External 0.40(A) 0.0 - 0.3 [facility] Blood VENOUS BLOOD / Unknown 02/13/2022 Venecia Vega MD CHEMISTRY & BLOOD GAS OR DERABLES Final Result Performing Organization Address [facility] Co de Phone Number [facility] documented in this encounter Visit Diagnoses Not on filedocumented in this encounter Care Teams Moto Mix Operator Relationship Specialty Start Date End Date Rebeca Miller APRN [address] [place] [address] PCP - General Family Medicine - Primary Care 11/21/21 03/07/24 documented as of this encounter
--- OUTSIDE RECORDS SUMMARY | 2024-05-25 12:46 | XMS_ITS | Encounter Summary ---
Author Organization [facility] Address [address] [place] [address] Care Team Providers Care Knotting Machine Operator Name Role Phone Paul Rebeca George AGUILERA Primary Care Provider [phone] Reason for Visit * Reason Comments Other Encounter Details Date Type Department Care Team (Late st Contact Info) Description 03/04/2022 Refill [facility] [place] [facility] [place] [address] [place] [address] Venecia Vega MD [address] [facility] [place] [phone] Other Social History Tobacco Use Types Packs/Day [...] Contact Info) Description 09/21/2024 8:15 EDT Telemedicine [facility] Rheumatology [address] [place], [place] [address] Venecia Vega MD [address] [facility] [address] [place] [phone] documented as of this encounter Visit Diagnoses Diagnosis Spondyloarthropathy- Primary Spondylosis of unspecified site without mention of myelopathy documented in this encounter Discontinued Medications Medication Sig Discontinue Reason Start Date End Da te hydrOXYchloroQUINE (PLAQUENIL) 200 mg tabletIndications:Spondy loarthropathy TAKE ONE TABLET BY MOUTH ONE TIME DAILY 10/13/2021 03/04/2022 documented as of this encounter Care Teams Knotting Machine Operator Relationship Specialty Start Date End Date Rebeca Miller, WILLY [address] [place] [address] PCP - General Family Medicine - Primary Care 11/21/21 03/07/24 documented as of this encounter
--- OUTSIDE RECORDS SUMMARY | 2024-05-25 12:46 | XMS_ITS | Encounter Summary ---
Author Organization [facility] Address [address] [place] [address] Care Team Providers Care Chemical Etching Processor Name Role Phone Shireen Pohebe BLANK Primary Care Provider [phone] Rebeca Miller APRN Primary Care Provider [phone] Corine Coulter Primary Care Provider [phone] Encounter Details Date Type Department Care Team (Late st Contact Info) Description 06/20/2021 Lab Requisition [facility] Pathology & Laboratory Medicine - [facility] [address] [place], [place] [phone] Outr Resulting Lab, Provider Social History Tobacco [...] Contact Info) Description 09/21/2024 8:15 EDT Telemedicine [facility] Rheumatology [address] [place] [address] Venecia Vega MD [address] [place] [address] [address] [place] [phone] documented as of this encounter Procedures Procedure Name Priority Date/Time Associated Diagnosis Comments HEPATITIS B SURFACE ANTIGEN Routine 06/19/2021 14:00 EST documented in this encounter Results * HEPATITIS B SURFACE ANTIGEN (06/19/2021 14:00 EST) Hep B Surface Ag Negative Negative 06/23/2021 10:22 EST [facility] Blood VENOUS BLOOD / Unknown 06/19/2021 14:00 EST 06/20/2021 16:50 EST us Provider Outr Resulting Lab CHEMISTRY & BLOOD GA S ORDERABLES Final Result [facility] [address] [place] [address] documented in this encounter Visit Diagnoses Not on filedocumented in this encounter Care Teams Chemical Etching Processor Relationship Specialty Start Date End Date Phoebe Iyer FNP PCP - General 07/09/20 11/20/21 Rebeca Miller APRN [address] [place] [address] PCP - General Family Medicine - Primary Care 11/21/21 03/07/24 Corine Coulter [address] [place] [address] PCP - General Family Medicine - Primary Care 03/08/24 documented as of this encounter
--- OUTSIDE RECORDS SUMMARY | 2024-05-25 12:46 | XMS_ITS | Encounter Summary ---
Author Organization [facility] Address [address] [place] [address] Care Team Providers Care Public Relations Representative Name Role Phone Paul Rebeca George AGUILERA Primary Care Provider [phone] Reason for Visit * Reason Onset Date Comments Labs Only 02/24/2022 Encounter Details Date Type Department Care Team (Late st Contact Info) Description 02/24/2022 Telephone [facility] [place] Hematology & Oncology [address] [place] [address] Adriane West, NOEMI [address] [facility] [address] [place] [address] Labs Only Social History Tobacco [...] documented in this encounter Miscellaneous Notes * Result Encounter Note - Adriane West MBBS - 03/02/2022 1320 EDT Please let the patient know that stool occult blood test is negative. NOEMI Oliver * Telephone Encounter - Catherine Silverio RN - 02/25/2022 0912 EDT Spoke with patient aware of below and agrees with plan. Patient requesting to have stool cards done at [facility] as it is a long way to travelto pharmacy picking tech one day and drop off another. Spoke with Petty at [facility] states they can give patient cards and develop them at there clinic they would just need orders. Orders completed and faxed. [facility] will fax results to our office. Dr. [...] Telephone Encounter - Mary Aldridge - 02/24/2022 6649 EDT Patient called and request call back with lab results from 02/16/22. Call out to [facility] they will fax over results today. Please call patient at [phone]. documented in this encounter Plan of Treatment Upcoming Encounters Date Type Department Care Team (Late st Contact Info) Description 09/21/2024 8:15 EDT Telemedicine [facility] Rheumatology [address] [place] [phone] Venecia Vega MD [address] [facility] [address] [place] [address] documented as of this encounter Procedures Procedure Name Priority Date/Time Associated Diagnosis Comments ZZPOCT OCCULT BLOOD SLIDE TEST X 3 Routine 03/02/2022 Thrombocytosis documented in this encounter Results * POCT OCCULT BLOOD SLIDE TEST X 3 (03/02/2022) Developer Lot Number UVN POINT OF CARE Developer Expiration Date UVN [...] POINT OF CARE Card/Slide Lot Number #2 [facility] POINT OF CARE Card/Slide Expiration Date #2 [facility] POINT OF CARE Card Slide #2 Collection [...] Feces SPECIMEN FROM RECTUM / Unknown 03/02/2022 us Adriane West MBBS POINT OF CARE TEST ORDERAB LES Final Result [facility] documented in this encounter Visit Diagnoses Diagnosis Thrombocytosis- Primary Essential thrombocythemia documented in this encounter Care Teams Public Relations Representative Relationship Specialty Start Date End Date Rebeca Miller, WILLY [address] [place] [phone] PCP - General Family Medicine - Primary Care 11/21/21 03/07/24 documented as of this encounter
--- OUTSIDE RECORDS SUMMARY | 2024-05-25 12:46 | XMS_ITS | Encounter Summary ---
Author Organization [facility] Address [address] [place] [address] Care Team Providers Care Trust Accounts Supervisor Name Role Phone Phoebe Iyer ABHAY Primary Care Provider [phone] Encounter Details Date Type Department Care Team (Late st Contact Info) Description 06/23/2021 Orders Only [facility] [place] [facility] [place] [address] [place], [place] [address] Cande Young RN Social History Tobacco Use [...] Contact Info) Description 09/21/2024 8:15 EDT Telemedicine [facility] Rheumatology [address] [place] [address] Venecia Vega MD [address] [facility] [address] [place] [phone] documented as of this encounter Visit Diagnoses Not on filedocumented in this encounter Care Teams Trust Accounts Supervisor Relationship Specialty Start Date End Date Phoebe Iyer FNP PCP - General 07/09/20 11/20/21 documented as of this encounter
--- OUTSIDE RECORDS SUMMARY | 2024-05-25 12:46 | XMS_ITS | Encounter Summary ---
Author Organization [facility] Address [address] [place] [address] Care Team Providers Care Director Of Promotions Name Role Phone Shireen Phoebe BLANK Primary Care Provider [phone] Rebeca Miller APRN Primary Care Provider [phone] Corine Coulter Primary Care Provider [phone] Encounter Details Date Type Department Care Team (Late st Contact Info) Description 09/15/2021 Lab Requisition [facility] Pathology & Laboratory Medicine - [facility] [address] [place], [place] [address] Outr Resulting Lab, Provider Social History Tobacco [...] Contact Info) Description 09/21/2024 8:15 EDT Telemedicine [facility] Rheumatology [address] [place] [address] Venecia Vega MD [address] [place] [address] [address] [place] [phone] documented as of this encounter Procedures Procedure Name Priority Date/Time Associated Diagnosis Comments HEPATITIS A TOTAL ANTIBODY W REFLEX Routine 09/15/2021 8:30 EDT documented in this encounter Results * HEPATITIS A TOTAL ANTIBODY W REFLEX (09/15/2021 8:30 EDT) Hepatitis A Antibody, Total Negative Negative 09/16/2021 9:33 EDT [facility] Blood VENOUS BLOOD / Unknown 09/15/2021 8:30 EDT 09/15/2021 20:54 EDT Narrative [facility] - 09/16/2021 9:33 EDT The result of this assay can be falsely elevated (Positive) due to the consumption of Biotin. us Provider Outr Resulting Lab CHEMISTRY & BLOOD GA S ORDERABLES Final Result [facility] [address] [place] [address] documented in this encounter Visit Diagnoses Not on filedocumented in this encounter Care Teams Director Of Promotions Relationship Specialty Start Date End Date Phoebe Iyer FNP PCP - General 07/09/20 11/20/21 Rebeca Miller APRN [address] [place] [address] PCP - General Family Medicine - Primary Care 11/21/21 03/07/24 Corine Coulter [address] [place] [address] PCP - General Family Medicine - Primary Care 03/08/24 documented as of this encounter
--- OUTSIDE RECORDS SUMMARY | 2024-05-25 12:46 | XMS_ITS | Encounter Summary ---
Author Organization [facility] Address [address] [place] [address] Care Team Providers Care County Or City Auditor Name Role Phone Phoebe Iyer ABHAY Primary Care Provider [phone] Reason for Visit * Reason Onset Date Comments Prior Auth, Medication 06/13/2021 Encounter Details Date Type Department Care Team (Late st Contact Info) Description 06/13/2021 Telephone [facility] [place] [address] [place], [place] [phone] Venecia Vega MD 130 [facility] [address] [place] [address] Prior Auth, Medication Social History [...] Refills Last Filled Start Date End Date upadacitinib (RINVOQ) 15 mg tablet extended release [...] would like to get it done at [facility] so order faxed there. * Telephone Encounter [...] Approval Dates: 06/13/2021 - 09/11/2021 Authorization Number: [id number] [facility] able to fill? : Yes Required Pharmacy: [facility] Prior Authorization Submission Process - Routine Medication: Rinvoq 15mg daily Insurance[place] Insurance [place] Date [place] Request Received: 05/16/2021 [place] Submission Date: Pending [facility] [place]: N/A - Fax Notes: Submitted by: Trinity Phone: [phone] documented in this encounter Plan of Treatment Upcoming Encounters Date Type Department Care Team (Late st Contact Info) Description 09/21/2024 8:15 EDT Telemedicine [facility] Rheumatology [address] [place], [place] [address] Venecia Vega MD [address] [facility] [address] [place] [address] documented as of this encounter Visit Diagnoses Diagnosis High risk medication use- Primary Encounter for long-term (current) use of other medications documented in this encounter Discontinued Medications Medication Sig Discontinue Reason Start Date End Da te tofacitinib (XELJANZ) 5 mg tablet Take 1 Tablet by mouth 2 times daily. 02/17/2021 06/24/2021 documented as of this encounter Care Teams County Or City Auditor Relationship Specialty Start Date End Date Phoebe Iyer FNP PCP - General 07/09/20 11/20/21 documented as of this encounter
--- OUTSIDE RECORDS SUMMARY | 2024-05-25 12:46 | XMS_ITS | Encounter Summary ---
Author Organization [facility] Address [address] [place] [address] Care Team Providers Care General Passenger Agent Name Role Phone Rebeca Miller APRN Primary Care Provider [phone] Reason for Visit * Reason Comments New Patient Visit Telemedicine Video Visit * Consult (See Order Priority) - Order Cancelled Specialty Diagnoses / Procedures Referred By Nishant garcia Referred To Contact Hematology and Oncology Diagnoses Thrombocytosis Venecia Vega MD Phone: tel: fax: [facility] Adult Hematology & Oncology [address] [place] [address] Phone: tel: fax: Referral ID Status Reason Start Date Expiration Date Visits Requested Visits Authorized [id number] Order Cancelled Specialty Services Required 12/12/2021 1 1 Encounter Details Date Type Department Care Team (Latest Contact Info) Description 02/02/2022 15:00 EDT Telemedicine [facility] Adult Hematology & Oncology [address] [place] [address] Adriane West, NOEMI 130 [facility] [address] [place] [address] Thrombocytosis (Primary Dx); Lymphocytosis; Seronegative spondyloarthropathy; 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 ??? Obesity (BMI 30-39.9) ??? Otitis media, [...] Social History Social History Narrative Lives in [place], [place] with her 4 children. 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 MEDICATIONS Current Outpatient Medications Medication Sig Dispense Refill Last Dose ??? ewlvlqr-icpdbrfsbugkx-pdzzqgxv (EXCEDRIN MIGRAINE) 250-250-65 mg per tablet Take 1 Tablet by mouth every 12 hours as needed for Headaches. Taking ??? fluticasone propionate (FLONASE) 50 mcg/actuation nasal spray Instill 1 [place] into both nostrils daily. 1 Bottle 2 [...] rheumatoid arthritis of multiple sites (HCC-CMS) (HCC) were also pertinent to this visit. ASSESSMENT [...] MD Clinical Practice Physician Hematology/ Medical Oncology /[facility] Ph no: [phone] CC:Primary Care Provider: Rebeca Miller [address] [place] [phone] Referring Provider: Venecia Vega MD 130 [facility] [address] [place] [address] * Joan Claudio RN - 02/02/2022 1500 EDT Patient rooming was [...] Contact Info) Description 09/21/2024 8:15 EDT Telemedicine [facility] [place] Rheumatology [address] [place] [address] Venecia Vega MD [address] [facility] [address] [place] [address] Scheduled Orders Name Type Priority Associated Diagnoses Orde r Schedule FERRITIN Lab Routine Thrombocytosis Ordered: 02/02/2022 IRON Lab Routine Thrombocytosis Ordered: 02/02/2022 IBC Lab Routine Thrombocytosis Ordered: 02/02/2022 documented as of this encounter Visit Diagnoses Diagnosis Thrombocytosis- Primary Essential thrombocythemia Lymphocytosis Lymphocytosis (symptomatic) 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
--- OUTSIDE RECORDS SUMMARY | 2024-05-25 12:46 | XMS_ITS | Encounter Summary ---
Author Organization [facility] Address [address] [place] [address] Care Team Providers Care Meter Supervisor Name Role Phone Phoebe Iyer ABHAY Primary Care Provider [phone] Reason for Visit * Reason Onset Date Comments Results 08/07/2021 Encounter Details Date Type Department Care Team (Late st Contact Info) Description 08/07/2021 Telephone [facility] [place] [address] [place], [place] [phone] Venecia Vega MD 130 [facility] [address] [place] [address] Results Social History Tobacco Use [...] Quad US ordered to be done at [facility]. * Telephone Encounter - Cande Young RN - 08/07/2021 1027 EST Spoke with Arabella and advised her of abnormal labs per Dr. Vega. She is in agreement to stop the Rinvoq and recheck her labs in 2 weeks. She is also in agreement to get US done and would like order sent to [facility]. * Telephone Encounter - Venecia Vega MD [...] lfts ? If she wants that at [facility] or [facility] -ok wherever works best for her. Please have her update us as to how she is doing in two weeks. * Telephone Encounter - Venecia Vega MD - 08/07/2021 1011 EST ----- Message from Cande Young RN sent at 08/07/2021 10:02 EST ----- Lab results for your review. ----- Message ----- From: Lesly Elizabeth Sent: 08/07/2021 8:26 EST To: [facility] Rheumatology Nurse documented in this encounter Plan of Treatment Upcoming Encounters Date Type Department Care Team (Late st Contact Info) Description 09/21/2024 8:15 EDT Telemedicine [facility] [place] [address] [place], [place] [phone] Venecia Vega MD [address] [place] [address] [place] [phone] documented as of this encounter Visit Diagnoses Diagnosis Abnormal LFTs (liver function tests)- Primary Other abnormal blood chemistry documented in this encounter Care Teams Meter Supervisor Relationship Specialty Start Date End Date Phoebe Iyer FNP PCP - General 07/09/20 11/20/21 documented as of this encounter
--- OUTSIDE RECORDS SUMMARY | 2024-05-25 12:46 | XMS_ITS | Encounter Summary ---
Author Organization [facility] Address [address] [place] [address] Care Team Providers Care Brick Chimney Builder Name Role Phone Phoebe Iyer ABHAY Primary Care Provider [phone] Encounter Details Date Type Department Care Team (Late st Contact Info) Description 09/23/2021 Specialty Pharmacy [facility] - [facility] [address] [place] [address] Cortney Uribe [facility] Social History Tobacco Use Types Packs/Day [...] Contact Info) Description 09/21/2024 8:15 EDT Telemedicine [facility] Rheumatology [address] [place] [address] Venecia Vega MD [address] [place] [address] [address] [place] [phone] documented as of this encounter Visit Diagnoses Not on filedocumented in this encounter Care Teams Brick Chimney Builder Relationship Specialty Start Date End Date Phoebe Iyer FNP PCP - General 07/09/20 11/20/21 documented as of this encounter
--- OUTSIDE RECORDS SUMMARY | 2024-05-25 12:46 | XMS_ITS | Encounter Summary ---
Author Organization [facility] Address [address] [place] [address] Care Team Providers Care Player Manager Name Role Phone Rebeca Miller APRN Primary Care Provider Corine Coulter Primary Care Provider [phone] Encounter Details Date Type Department Care Team (Late st Contact Info) Description 12/02/2021 Lab Requisition [facility] Pathology & Laboratory Medicine - [facility] [address] [place] [address] Outr Resulting Lab, Provider Social History Tobacco [...] Contact Info) Description 09/21/2024 8:15 EDT Telemedicine [facility] Rheumatology [address] [place] [address] Venecia Vega MD [address] [place] [address] [place] [address] documented as of this encounter Procedures Procedure Name Priority Date/Time Associated Diagnosis Comments IGA Routine 12/02/2021 9:10 EDT documented in this encounter Results * IGA (12/02/2021 9:10 EDT) IgA 326 85 - 499 mg/dL 12/03/2021 10:03 EDT [facility] Blood VENOUS BLOOD / Unknown 12/02/2021 9:10 EDT 12/02/2021 22:07 EDT us Provider Outr Resulting Lab CHEMISTRY & BLOOD GA S ORDERABLES Final Result [facility] [address] [place] [address] documented in this encounter Visit Diagnoses Not on filedocumented in this encounter Care Teams Player Manager Relationship Specialty Start Date End Date Rebeca Miller APRN [address] [place] [phone] PCP - General Family Medicine - Primary Care 11/21/21 03/07/24 Corine Coulter [address] [place] [phone] PCP - General Family Medicine - Primary Care 03/08/24 documented as of this encounter
--- OUTSIDE RECORDS SUMMARY | 2024-05-25 12:46 | XMS_ITS | Encounter Summary ---
Author Organization [facility] Address [address] [place] [address] Care Team Providers Care Accounts Adjustable Clerk Name Role Phone Phoebe Iyer ABHAY Primary Care Provider [phone] Reason for Visit * Reason Comments Other Encounter Details Date Type Department Care Team (Late st Contact Info) Description 10/12/[address] [facility] - [facility] Rheumatology [address] [place] [address] Venecia Vega MD [address] [facility] [address] [place] [phone] Other Social History Tobacco Use Types Packs/Day [...] Info) Description 09/21/2024 8:[address] 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 11/29/2020 10/13/2021 documented as of this encounter Care Teams Accounts Adjustable Clerk Relationship Specialty Start Date End Date Phoebe Iyer FNP PCP - General 07/09/20 11/20/21 documented as of this encounter
--- OUTSIDE RECORDS SUMMARY | 2024-05-25 12:46 | XMS_ITS | Encounter Summary ---
Author Organization [facility] Address [address] [place] [address] Care Team Providers Care Manager Bar Name Role Phone Phoebe Iyer ABHAY Primary Care Provider [phone] Encounter Details Date Type Department Care Team (Late st Contact Info) Description 06/23/2021 Abstract [facility] Rhe[facility]ology [address] [place], [place] [phone] Cande Young RN Social History Tobacco Use [...] Contact Info) Description 09/21/2024 8:15 EDT Telemedicine [facility] Rheumatology [address] [place] [address] Venecia Vega MD [address] [facility] [address] [place] [address] documented as of this encounter Procedures Procedure Name Priority Date/Time Associated Diagnosis Comments COMPLETE BLOOD COUNT AND DIFFERENTIAL Routine 06/19/2021 C REACTIVE PROTEIN Routine 06/10/2021 COMPREHENSIVE METABOLIC PANEL (CMP) Routine 06/10/2021 documented in this encounter Results * (ABNORMAL) COMPLETE BLOOD COUNT AND DIFFERENTIAL (06/19/2021) WBC, External 9.87 4.4 - 10.8 [facility] RBC, External 4.53 3.93 - 5.22 [facility] Hemoglobin, External 12.7 11.2 - 15.7 [facility] HCT, External 40.0 36.0 - 46.0 [facility] MCV, External 88.3 80 - 95 [facility] MCH, External 28.0 27.0 - 33.0 [facility] MCHC, External 31.8(A) 32.0 - 36.0 [facility] PLT, External 555(A) 130 - 400 [facility] RDW-CV, External 13.6 11.7 - 14.6 [facility] Neutrophils, External 52.6 [facility] Lymphocytes, External 36.1 [facility] Monocytes, External 7.5 [facility] Eosinophils, External 3.0 [facility] Basophils, External 0.5 [facility] ABS Neutrophils, External 5.19 1.2 - 6.7 [facility] ABS Lymphs, External 3.56(A) 1.2 - 3.4 [facility] ABS Monocytes, External 0.74 0.1 - 0.8 [facility] ABS Eosinophils, External 0.30 0.0 - 0.7 [facility] ABS Basophils, External 0.05 0.0 - 0.2 [facility] Blood VENOUS BLOOD / Unknown 06/19/2021 us Venecia Vega MD PACKAGES & DNA PROBE ORD ERABLES Final Result [facility] * (ABNORMAL) COMPREHENSIVE METABOLIC PANEL (CMP) (06/10/2021) GFR, Calculated, External >60 >=60 [facility] Glucose, Serum, External 90 74 - 106 [facility] Albumin, External 3.8 3.4 - 5.0 [facility] Total Alkaline Phosphatase, External 76 46 - 116 [facility] ALT, External 77(A) 14 - 59 [facility] AST, External 59(A) 15 - 37 [facility] BUN, External 14 7 - 18 [facility] Calculated Calcium, External [facility] Calcium, External 8.9 8.5 - 10.1 [facility] Chloride, External 105 98 - 107 [facility] CO2, External 26.4 21.0 - 32.0 [facility] Creatinine, External 0.9 0.55 - 1.02 [facility] Fasting?, External [facility] Potassium, External 4.3 3.5 - 5.1 [facility] Sodium, External 140 136 - 145 [facility] Total Protein, External 7.1 6.4 - 8.2 [facility] Bilirubin, Total, External 0.4 0.2 - 1.0 [facility] Blood VENOUS BLOOD / Unknown 06/10/2021 Venecia Vega MD CHEMISTRY & BLOOD GAS OR DERABLES Final Result Performing Organization Address [facility] Co de Phone Number [facility] * (ABNORMAL) C REACTIVE PROTEIN (06/10/2021) C-Reactive Protein, External 0.83(A) 0.0 - 0.3 mg/dL [facility] Blood VENOUS BLOOD / Unknown 06/10/2021 us Venecia Vega MD CHEMISTRY & BLOOD GAS OR DERABLES Final Result Performing Organization Address [facility] Co de Phone Number [facility] documented in this encounter Visit Diagnoses Not on filedocumented in this encounter Care Teams Manager Bar Relationship Specialty Start Date End Date Phoebe Iyer FNP PCP - General 07/09/20 11/20/21 documented as of this encounter
--- OUTSIDE RECORDS SUMMARY | 2024-05-25 12:46 | XMS_ITS | Encounter Summary ---
Author Organization [facility] Address [address] [place] [address] Care Team Providers Care Fur Mixer Name Role Phone Rebeca Miller WILLY Primary Care Provider [phone] Encounter Details Date Type Department Care Team (Late st Contact Info) Description 12/04/2021 Abstract [facility] Rhe[place]ology [address] [place], [place] [address] Katt Stringer RN Social History Tobacco Use [...] Description 09/21/2024 8:15 EDT Telemedicine [facility] Rheumatology [address] [place] [address] Venecia Vega MD [address] [facility] [address] [place] [phone] documented as of this encounter Procedures Procedure Name Priority Date/Time Associated Diagnosis Comments TISSUE TRANSGLUTAMINASE ANTIBODY, IGA Routine 12/02/2021 COMPLETE BLOOD COUNT AND DIFFERENTIAL Routine 12/02/2021 C REACTIVE PROTEIN Routine 12/02/2021 COMPREHENSIVE METABOLIC PANEL (CMP) Routine 12/02/2021 documented in this encounter Results * TISSUE TRANSGLUTAMINASE AB (12/02/2021) Tissue Transglutaminase Ab, IGA, External <1.2 <=4.0 [facility] tTG Ab, IgA, S, External 326 50 - 211 [facility] Blood VENOUS BLOOD / Unknown 12/02/2021 us Venecia Vega MD IMMUNOLOGY AND SEROLOGY ORDERABLES Final Result [facility] * (ABNORMAL) COMPLETE BLOOD COUNT AND DIFFERENTIAL (12/02/2021) WBC, External 9.13 4.4 - 10.8 [facility] RBC, External 4.57 3.93 - 5.22 [facility] Hemoglobin, External 12.8 11.2 - 15.7 [facility] HCT, External 40.2 36.0 - 46.0 [facility] MCV, External 88 80 - 95 [facility] MCH, External 28.0 27.0 - 33.0 [facility] MCHC, External 31.8(A) 32.0 - 36.0 [facility] PLT, External 537(A) 130 - 400 [facility] RDW-CV, External 14.6 11.7 - 14.6 [facility] Neutrophils, External 48.5% [facility] Lymphocytes, External 38.0% [facility] Monocytes, External 7.0% [facility] Eosinophils, External 5.7% [facility] Basophils, External 0.5% [facility] ABS Neutrophils, External 4.42 1.2 - 6.7 [facility] ABS Lymphs, External 3.47(A) 1.2 - 3.4 [facility] ABS Monocytes, External 0.64 0.1 - 0.8 [facility] ABS Eosinophils, External 0.52 0.0 - 0.7 [facility] ABS Basophils, External 0.05 0.0 - 0.2 [facility] Blood VENOUS BLOOD / Unknown 12/02/2021 us Venecia Vega MD PACKAGES & DNA PROBE ORD ERABLES Final Result [facility] * (ABNORMAL) COMPREHENSIVE METABOLIC PANEL (CMP) (12/02/2021) GFR, Calculated, External >=60 >=60 [facility] Glucose, Serum, External 99 74 - 106 [facility] Albumin, External 3.8 3.4 - 5.0 [facility] Total Alkaline Phosphatase, External 83 46 - 116 [facility] ALT, External 70(A) 14 - 59 [facility] AST, External 44(A) 15 - 37 [facility] BUN, External 10 7 - 18 [facility] Calculated Calcium, External [facility] Calcium, External 8.6 8.5 - 10.1 [facility] Chloride, External 103 98 - 107 [facility] CO2, External 25.0 21.0 - 32.0 [facility] Creatinine, External 1.0 0.55 - 1.02 [facility] Fasting?, External [facility] Potassium, External 4.1 3.5 - 5.1 [facility] Sodium, External 139 136 - 145 [facility] Total Protein, External 7.3 6.4 - 8.2 [facility] Bilirubin, Total, External 0.3 0.2 - 1.0 [facility] Blood VENOUS BLOOD / Unknown 12/02/2021 us Venecia Vega MD CHEMISTRY & BLOOD GAS OR DERABLES Final Result [facility] * (ABNORMAL) C REACTIVE PROTEIN (12/02/2021) C-Reactive Protein, External 0.54(A) 0.0 - 0.3 mg/dL [facility] Blood VENOUS BLOOD / Unknown 12/02/2021 us Venecia Vega MD CHEMISTRY & BLOOD GAS OR DERABLES Final Result [facility] documented in this encounter Visit Diagnoses Not on filedocumented in this encounter Care Teams Fur Mixer Relationship Specialty Start Date End Date Rebeca Miller APRN [address] [place] [address] PCP - General Family Medicine - Primary Care 11/21/21 03/07/24 documented as of this encounter
--- OUTSIDE RECORDS SUMMARY | 2024-05-25 12:46 | XMS_ITS | Encounter Summary ---
Author Organization [facility] Address [address] [place] [address] Care Team Providers Care Category Consultant Name Role Phone Phoebe Iyer ABHAY Primary Care Provider [phone] Reason for Visit * Reason Comments Follow-up For Spondyloarthropa thy. patient reports joints are inflammed/sore. Mostly knees, ankles, feet are painful. A consistent bothersome soreness, especially at night. seeing specialist for TMJ, wanted to make note of. Encounter Details Date Type Department Care Team (Late st Contact Info) Description 09/18/2021 10:45 EDT Telemedicine [facility] Rheumatology [address] [place] [address] Venecia Vega MD [address] [facility] [address] [place] [address] Seronegative rheumatoid arthritis of multiple sites ([facility] ([facility]) (Primary Dx); High risk medication use Social [...] should be repeated in 1 month at [facility]. No further invoke Restart Xeljanz 5 mg [...] Refills Last Filled Start Date End Date naproxen (NAPROSYN) 500 mg tabletIndications: High risk medication use Take 1 Tablet by mouth 2 times daily as needed for Pain. 60 Tablet 5 09/18/2021 12/12/2021 documented in this encounter Progress Notes * Venecia Vega MD - 09/18/2021 1045 EDT [facility] [...] allopathic care to pursue naturopathic care. Rx [id number] antibiotics/supplements prednisone from [place] not effective - [...] Description 09/21/2024 8:15 EDT Telemedicine [facility] Rheumatology [address] [place] [address] Venecia Vega MD [address] [facility] [address] [place] [address] documented as of this encounter Visit Diagnoses Diagnosis Seronegative rheumatoid arthritis of multiple sites ([facility])- Primary High risk medication use Encounter for [...] may reflect changes made after this encounter. tofacitinib (XELJANZ) 5 mg tabletIndications :rheumatoid arthritis Take 5 mg by mouth 2 times daily. 09/23/2021 added in this encounter Care Teams Category Consultant Relationship Specialty Start Date End Date Phoebe Iyer FNP PCP - General 07/09/20 11/20/21 documented as of this encounter
--- OUTSIDE RECORDS SUMMARY | 2024-05-25 12:46 | XMS_ITS | Encounter Summary ---
Author Organization [facility] Address [address] [place] [address] Care Team Providers Care Budget Analyst Name Role Phone Phoebe Iyer ABHAY Primary Care Provider [phone] Encounter Details Date Type Department Care Team (Late st Contact Info) Description 08/22/2021 Abstract [facility] [place] [address] [place], [place] [id number] Katt Stringer RN Social History Tobacco Use [...] Contact Info) Description 09/21/2024 8:15 EDT Telemedicine [facility] Rheumatology [address] [place] [address] Venecia Vega MD [address] [facility] [address] [place] [address] documented as of this encounter Procedures Procedure Name Priority Date/Time Associated Diagnosis Comments COMPLETE BLOOD COUNT AND DIFFERENTIAL Routine 08/21/2021 C REACTIVE PROTEIN Routine 08/21/2021 TSH Routine 08/21/2021 COMPREHENSIVE METABOLIC PANEL (CMP) Routine 08/21/2021 documented in this encounter Results * TSH (08/21/2021) TSH, External 0.95 0.36 - 3.74 [facility] Blood VENOUS BLOOD / Unknown 08/21/2021 us Venecia Vega MD CHEMISTRY & BLOOD GAS OR DERABLES Final Result [facility] * (ABNORMAL) COMPLETE BLOOD COUNT AND DIFFERENTIAL (08/21/2021) WBC, External 11.66(A) 4.4 - 10.8 [facility] RBC, External 4.57 3.93 - 5.22 [facility] Hemoglobin, External 13.0 11.2 - 15.7 [facility] HCT, External 40.9 36.0 - 46.0 [facility] MCV, External 89.5 80 - 95 [facility] MCH, External 28.4 27 - 33 [facility] MCHC, External 31.8(A) 32 - 36 [facility] PLT, External 514(A) 130 - 400 [facility] RDW-CV, External 14.5 11.7 - 14.6 [facility] Neutrophils, External 60.5 [facility] Lymphocytes, External 26.8 [facility] Monocytes, External 8.6 [facility] Eosinophils, External 3.0 [facility] Basophils, External 0.6 [facility] ABS Neutrophils, External 7.05(A) 1.2 - 6.7 [facility] ABS Lymphs, External 3.12 1.2 - 3.4 [facility] Monocytes, External 1.0(A) 0.1 - 0.8 [facility] Eosinophils, External 0.35 0 - 0.7 [facility] Basophils, External 0.07 0 - 0.2 [facility] Blood VENOUS BLOOD / Unknown 08/21/2021 us Venecia Vega MD PACKAGES & DNA PROBE ORD ERABLES Final Result [facility] * (ABNORMAL) COMPREHENSIVE METABOLIC PANEL (CMP) (08/21/2021) GFR, Calculated, External >=60 >=60 [facility] Glucose, Serum, External 84 74 - 106 [facility] Albumin, External 3.9 3.4 - 5.0 [facility] Total Alkaline Phosphatase, External 83 46 - 116 [facility] ALT, External 94(A) 14 - 59 [facility] AST, External 65(A) 15 - 37 [facility] BUN, External 8 7 - 18 [facility] Calculated Calcium, External [facility] Calcium, External 9.0 8.5 - 10.1 [facility] Chloride, External 105 98 - 107 [facility] CO2, External 23.2 21 - 32 [facility] Creatinine, External 0.9 0.55 - 1.02 [facility] Fasting?, External [facility] Potassium, External 4.0 3.5 - 5.1 [facility] Sodium, External 138 136 - 145 [facility] Total Protein, External 7.6 6.4 - 8.2 [facility] Bilirubin, Total, External 0.3 0.2 - 1.0 [facility] Blood VENOUS BLOOD / Unknown 08/21/2021 Venecia Vega MD CHEMISTRY & BLOOD GAS OR DERABLES Final Result [facility] * (ABNORMAL) C REACTIVE PROTEIN (08/21/2021) C-Reactive Protein, External 1.29(A) 0.0 - 0.3 [facility] Blood VENOUS BLOOD / Unknown 08/21/2021 Venecia Vega MD CHEMISTRY & BLOOD GAS OR DERABLES Edited Result - Final [facility] documented in this encounter Visit Diagnoses Not on filedocumented in this encounter Care Teams Budget Analyst Relationship Specialty Start Date End Date Phoebe Iyer FNP PCP - General 07/09/20 11/20/21 documented as of this encounter
--- OUTSIDE RECORDS SUMMARY | 2024-05-25 12:46 | XMS_ITS | Encounter Summary ---
Author Organization [facility] Address [address] [place] [address] Care Team Providers Care Extension Service Specialist In Charge Name Role Phone Phoebe Iyer ABHAY Primary Care Provider [phone] Encounter Details Date Type Department Care Team (Late st Contact Info) Description 10/16/2021 Abstract [facility] Rheumatology [address] [place], [place] [phone] Cnade Young RN Social History Tobacco Use Types [...] Contact Info) Description 09/21/2024 8:15 EDT Telemedicine [facility] Rheumatology [address] [place] [address] Venecia Vega MD [address] [facility] [address] [place] [phone] documented as of this encounter Procedures Procedure Name Priority Date/Time Associated Diagnosis Comments COMPLETE BLOOD COUNT AND DIFFERENTIAL Routine 10/14/2021 C REACTIVE PROTEIN Routine 10/14/2021 CREATININE Routine 10/14/2021 HEPATIC FUNCTION PANEL (ALB,ALK PHOS,ALT,AST,DBIL,TOT DEMIAN,TOT PROT) Routine 10/14/2021 documented in this encounter Results * (ABNORMAL) COMPLETE BLOOD COUNT AND DIFFERENTIAL (10/14/2021) WBC, External 8.95 4.4 - 10.8 [facility] RBC, External 4.55 3.93 - 5.22 [facility] Hemoglobin, External 12.7 11.2 - 15.7 [facility] HCT, External 40.6 36.0 - 46.0 [facility] MCV, External 89.2 80 - 95 [facility] MCH, External 27.9 27.0 - 33.0 [facility] MCHC, External 31.3(A) 32.0 - 36.0 [facility] PLT, External 492(A) 130 - 400 [facility] RDW-CV, External 14.3 11.7 - 14.6 [facility] Neutrophils, External 43.6 [facility] Lymphocytes, External 43.5 [facility] Monocytes, External 8.6 [facility] Eosinophils, External 3.5 [facility] Basophils, External 0.6 [facility] ABS Neutrophils, External 3.91 1.2 - 6.7 [facility] ABS Lymphs, External 3.89(A) 1.2 - 3.4 [facility] ABS Monocytes, External 0.77 0.1 - 0.8 [facility] ABS Eosinophils, External 0.31 0.0 - 0.7 [facility] ABS Basophils, External 0.05 0.0 - 0.2 [facility] Blood VENOUS BLOOD / Unknown 10/14/2021 Venecia Vega MD PACKAGES & DNA PROBE ORD ERABLES Final Result [facility] * HEPATIC FUNCTION PANEL (ALB,ALK PHOS,ALT,AST,DBIL,TOT DEMIAN,TOT PROT) (10/14/2021) Albumin, External 3.9 3.4 - 5.0 [facility] Total Protein, External 7.2 6.4 - 8.2 [facility] Alkaline Phosphatase, External 75 46 - 116 [facility] ALT, External 53 14 - 59 [facility] AST, External 32 15 - 37 [facility] Unconjugated Bilirubin [facility] Conjugated Bilirubin, External 0.1 0.0 - 0.2 [facility] Bilirubin, Total, External 0.5 0.2 - 1.0 [facility] Blood VENOUS BLOOD / Unknown 10/14/2021 Venecia Vega MD CHEMISTRY & BLOOD GAS OR DERABLES Final Result [facility] * CREATININE (10/14/2021) Creatinine, External 0.8 0.55 - 1.02 [facility] GFR, Calculated, External >60 [facility] Blood VENOUS BLOOD / Unknown 10/14/2021 Venecia Vega MD CHEMISTRY & BLOOD GAS OR DERABLES Final Result [facility] * (ABNORMAL) C REACTIVE PROTEIN (10/14/2021) C-Reactive Protein, External 0.62(A) 0.0 - 0.3 mg/dL [facility] Blood VENOUS BLOOD / Unknown 10/14/2021 Venecia Vega MD CHEMISTRY & BLOOD GAS OR DERABLES Final Result [facility] documented in this encounter Visit Diagnoses Not on filedocumented in this encounter Care Teams Extension Service Specialist In Charge Relationship Specialty Start Date End Date Phoebe Iyer FNP PCP - General 07/09/20 11/20/21 documented as of this encounter
--- OUTSIDE RECORDS SUMMARY | 2024-05-25 12:46 | XMS_ITS | Encounter Summary ---
Author Organization [facility] Address [address] [place] [address] Care Team Providers Care Product Lister Name Role Phone PaulRebeca George AGUILERA Primary Care Provider Encounter Details Date Type Department Care Team (Late st Contact Info) Description 01/09/2022 Specialty Pharmacy [facility] - [facility] [address] [place] [address] Cortney Uribe [facility] Social History Tobacco Use Types Packs/Day [...] Contact Info) Description 09/21/2024 8:15 EDT Telemedicine [facility] Rheumatology [address] [place] [address] Venecia Vega MD [address] [facility] [address] [place] [address] documented as of this encounter Visit Diagnoses Not on filedocumented in this encounter Care Teams Product Lister Relationship Specialty Start Date End Date Rebeca Miller APRN [address] [place] [phone] PCP - General Family Medicine - Primary Care 11/21/21 03/07/24 documented as of this encounter
--- OUTSIDE RECORDS SUMMARY | 2024-05-25 12:46 | XMS_ITS | Encounter Summary ---
Author Organization [facility] Address [address] [place] [address] Care Team Providers Care Research Manufacturing Operator Name Role Phone Phoebe Iyer ABHAY Primary Care Provider Encounter Details Date Type Department Care Team (Late st Contact Info) Description 07/15/2021 Specialty Pharmacy [facility] Amb[facility] - [facility] [address] [place] [address] Cortney Uribe [facility] Social History Tobacco Use Types [...] 8:15 EDT Telemedicine [facility] Rheumatology [address] [place] [address] Venecia Vega MD [address] [place] [address]- [address] [place] [phone] documented as of this encounter Visit Diagnoses Not on filedocumented in this encounter Care Teams Research Manufacturing Operator Relationship Specialty Start Date End Date Phoebe Iyer FNP PCP - General 07/09/20 11/20/21 documented as of this encounter
--- OUTSIDE RECORDS SUMMARY | 2024-05-25 12:46 | XMS_ITS | Encounter Summary ---
Author Organization [facility] Address [address] [place] [address] Care Team Providers Care Lsat Instructor Name Role Phone Phoebe Iyer ABHAY Primary Care Provider [phone] Reason for Referral * Laboratory Services (Routine) - New Request Specialty Diagnoses / Procedures Referred By [facility] t Referred To Contact Diagnoses Immunosuppressed status ([facility]-CMS) Procedures PATHOLOGY APPROVAL FOR COVID IGG AB [facility] ONLY Venecia Vega MD Phone: tel: fax: Referral ID Status Reason Start Date Expiration Date V isits Requested Visits Authorized [id number] New Request 02/26/2021 1 1 Reason for Visit * Reason Comments Follow-up Televideo-Seronegati ve Sponyloarthropathy; Pt reports increased inflammation in wrists, she thinks this may be related to heat. Ankle and knees are sore. Encounter Details Date Type Department Care Team (Late st Contact Info) Description 02/26/2021 9:45 EDT Telemedicine [facility] Rheumatology [address] [place] [address] Venecia Vega MD [address] [place] [address]-[address] [place] [address] Immunosuppressed status (HCC-CMS) (Primary Dx); Seronegative spondyloarthropathy; Encounter for long-term [...] Venecia Vega MD - 02/26/2021 0945 EDT [facility] Video Visit Today's visit was provided through [...] allopathic care to pursue naturopathic care. Rx [id number] anti biotics/supplements prednisone from [place] . PT [...] in joints hands, knees, ankles. 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 She is otherwise doing well. Kids will all go back to school. She has been vaccinated -Pfizer was done in October. Has 4 children. [...] - 4.9 g/dL 4.0 BILIRUBIN TOTAL - [facility] Latest Ref Range: 0.2 - 1.3 mg/dL 0.3 ALKALINE PHOSPHATASE - [facility] Latest Ref Range: 38 - 126 U/L 69 C-Reactive Protein Latest Ref Range: <10.0 mg/L 13.1 (H) Anion Gap Latest Ref Range: 0 - 18 9 GFR, Calculated Unknown >60 SGOT/AST - [facility] Latest Ref Range: 14 - 36 U/L 23 SGPT/ALT - [facility] Latest Ref Range: 0 - 35 U/L 17 High Sensitivity CRP Latest Ref Range: See Note mg/L 4.16 THYROID STIM HORMONE - [facility] Latest Ref Range: 0.46 - 4.68 uIU/ml 1.10 WHITE BLOOD COUNT - [facility] Latest Ref Range: 4.0 - 12.4 10e3/ul 11.0 RED BLOOD COUNT - [facility] Latest Ref Range: 3.86 - 5.04 10e3/ul [...] Telemedicine [facility] Rheumatology [address] [place] [address] Venecia Vega MD 130 [facility]- [address] [place] [phone] Scheduled Orders Name Type Priority Associated Diagnoses Orde r Schedule PATHOLOGY APPROVAL FOR COVID IGG AB [facility] ONLY Lab Routine Immunosuppressed status ([facility]-CMS) Ordered: 02/26/2021 documented as of this encounter Visit Diagnoses Diagnosis Immunosuppressed status (HCC-CMS)- Primary Unspecified disorder of immune mechanism 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
--- OUTSIDE RECORDS SUMMARY | 2024-05-25 12:46 | XMS_ITS | Encounter Summary ---
Author Organization [facility] Address [address] [place] [address] Care Team Providers Care Electrical Troubleshooter Name Role Phone KalinaPhoebe velasquez ABHAY Primary Care Provider [phone] Rebeca Miller APRN Primary Care Provider [phone] Corine Coulter Primary Care Provider [phone] Encounter Details Date Type Department Care Team (Late st Contact Info) Description 08/11/2021 Specialty Pharmacy [facility] - [facility] [address] [place], [place] [id number] Cortney Uribe RPH Social History Tobacco Use Types Packs/Day [...] EDT Telemedicine [facility] Rheumatology [address] [place] [phone] Venecia Vega MD [address] [place] [address] [address] [place] [phone] documented as of this encounter Visit Diagnoses Not on filedocumented in this encounter Care Teams Electrical Troubleshooter Relationship Specialty Start Date End Date Phoebe Iyer FNP PCP - General 07/09/20 11/20/21 Rebeca Miller APRN [address] [place] [address] PCP - General Family Medicine - Primary Care 11/21/21 03/07/24 Corine Coulter [address] [place] [address] PCP - General Family Medicine - Primary Care 03/08/24 documented as of this encounter
--- OUTSIDE RECORDS SUMMARY | 2024-05-25 12:46 | XMS_ITS | Encounter Summary ---
Author Organization [facility] Address [address] [place] [address] Care Team Providers Care Sort Line Name Role Phone Rebeca Miller APRN Primary Care Provider [phone] Reason for Visit * Reason Comments Follow-up For SPRA. left vm Encounter Details Date Type Department Care Team (Late st Contact Info) Description 12/12/2021 15:15 EDT Telemedicine [facility] Rheumatology [address] [place] [address] Venecia Vega MD 130 [facility] [address] [place] [address] Seronegative rheumatoid arthritis (HCC-CMS) ([facility]) (Primary Dx); High risk medication use; Thrombocytosis [...] MD - 12/12/2021 15:15 EDT Referring to [facility] [place], cannot locate a airport duty manager at [facility] just before next appointment Let me know how your jaw does after the pt. See you in the fall. Call/message if questions. documented in this encounter Progress Notes * Venecia Vega MD - 12/12/2021 1515 EDT [facility] Video [...] pain in jaw. Seeing TMJ specialist in [place] Facial pain on left side of her [...] EDT Telemedicine [facility] Rheumatology [address] [place], [place] [address] Venecia Vega MD [address] [facility] [address] [place] [phone] documented as of this encounter Visit Diagnoses Diagnosis Seronegative rheumatoid arthritis ([facility])- Primary Rheumatoid arthritis High risk medication use [...] may reflect changes made after this encounter. aspirin-acetamino phen-caffeine (EXCEDRIN MIGRAINE) 250-250-65 mg per tablet Take 1 Tablet by mouth every 12 hours as needed for Headaches. naproxen sodium (ALEVE) 220 mg capsule Take 220 mg by mouth as needed. 04/29/2022 added in this encounter Care Teams Sort Line Relationship Specialty Start Date End Date Rebeca Miller APRN [address] [place] [address] PCP - General Family Medicine - Primary Care 11/21/21 03/07/24 documented as of this encounter
--- OUTSIDE RECORDS SUMMARY | 2024-05-25 12:46 | XMS_ITS | Encounter Summary ---
Author Organization [facility] Address [address] [place] [address] Care Team Providers Care Manager Managing Name Role Phone Rebeca Miller WILLY Primary Care Provider [phone] Encounter Details Date Type Department Care Team (Late st Contact Info) Description 11/21/2021 Documentation Visit [facility] [address] [place], [place] [address] Miquel Haynes MD [address] [place] [address] [address] [place] [address] Social History Tobacco Use Types [...] documented in this encounter Progress Notes * Miquel Haynes [...] from 02/19 to 06/22 Dr Wyatt at [facility]. ??? Obesity (BMI 30-39.9) ??? Otitis [...] alcohol abstinence -TTG and IgA faxed to [facility] -Recommended taking omeprazole 30 minutes before breakfast -Low FODMAP diet reviewed and hand out provided -If persistent RUQ pain, it may be reasonable to see a surgeon -Follow up as needed The total time I spent on this new patient visit on 11/21/21 was 45 minutes. Miquel Hanyes MD documented in this encounter Plan of Treatment Upcoming Encounters Date Type Department Care Team (Late st Contact Info) Description 09/21/2024 8:15 EDT Telemedicine [facility] Rheumatology [address] [place] [address] Venecia Vega MD [address] [facility] [address] [place] [address] documented as of this encounter Visit Diagnoses Not on filedocumented in this encounter Care Teams Manager Managing Relationship Specialty Start Date End Date Rebeca Miller APRN [address] [place] [address] PCP - General Family Medicine - Primary Care 11/21/21 03/07/24 documented as of this encounter
--- OUTSIDE RECORDS SUMMARY | 2024-05-25 12:46 | XMS_ITS | Encounter Summary ---
Author Organization [facility] Address [address] [place] [address] Care Team Providers Care Labor Relations Or Personnel Negotiator Name Role Phone PaulRebeca George AGUILERA Primary Care Provider Encounter Details Date Type Department Care Team (Late st Contact Info) Description 12/11/2021 Specialty Pharmacy [facility] Ambulatory Pharmacy - [facility] [address] [place] [address] Cortney Uribe [facility] Social History Tobacco [...] EDT Telemedicine [facility] Rheumatology [address] [place] [address] Venecia Vega MD 130 [facility] [address] [place] [address] documented as of this encounter Visit Diagnoses Not on filedocumented in this encounter Care Teams Labor Relations Or Personnel Negotiator Relationship Specialty Start Date End Date Rebeca Miller APRN [address] [place] [phone] PCP - General Family Medicine - Primary Care 11/21/21 03/07/24 documented as of this encounter
--- OUTSIDE RECORDS SUMMARY | 2024-05-25 12:46 | XMS_ITS | Encounter Summary ---
Author Organization [facility] Address [address] [place] [address] Care Team Providers Care Donor Processor Name Role Phone Rebeca Miller APRN Primary Care Provider Corine Coulter Primary Care Provider [phone] Encounter Details Date Type Department Care Team (Late st Contact Info) Description 03/02/2022 Telephone [facility] On[facility] [address] [place] [address] Catherine Silverio, RN Social History Tobacco [...] Telephone Encounter - Catherine Silverio RN - 03/02/2022 1105 EDT Stool card results faxed from [facility]- Negative stool cards x3 Patient aware of results. documented in this encounter Plan of Treatment Upcoming Encounters Date Type Department Care Team (Late st Contact Info) Description 09/21/2024 8:15 EDT Telemedicine [facility] Rheumatology [address] [place], [place] [address] Venecia Vega MD 130 [facility] [address] [place] [phone] documented as of this encounter Visit Diagnoses Not on filedocumented in this encounter Care Teams Donor Processor Relationship Specialty Start Date End Date Rebeca Miller APRN [address] [place] [address] PCP - General Family Medicine - Primary Care 11/21/21 03/07/24 Corine Coulter [address] [place] [address] PCP - General Family Medicine - Primary Care 03/08/24 documented as of this encounter
--- OUTSIDE RECORDS SUMMARY | 2024-05-25 12:46 | XMS_ITS | Encounter Summary ---
Author Organization [facility] Address [address] [place] [address] Care Team Providers Care Slitter Scorer Name Role Phone Phoebe Iyer ABHAY Primary Care Provider Encounter Details Date Type Department Care Team (Late st Contact Info) Description 10/21/2021 Specialty Pharmacy [facility] - [facility] [address] [place] [address] Cortney Uribe [facility] Social History Tobacco Use Types [...] Contact Info) Description 09/21/2024 8:15 EDT Telemedicine [facility] Rheumatology [address] [place] [address] Venecia Vega MD [address] [place] [address]- [address] [place] [phone] documented as of this encounter Visit Diagnoses Not on filedocumented in this encounter Care Teams Slitter Scorer Relationship Specialty Start Date End Date Phoebe Iyer FNP PCP - General 07/09/20 11/20/21 documented as of this encounter
--- OUTSIDE RECORDS SUMMARY | 2024-05-25 12:46 | XMS_ITS | Encounter Summary ---
Author Organization [facility] Address [address] [place] [address] Care Team Providers Care Healthcare Interpreter Name Role Phone Phoebe Iyer ABHAY Primary Care Provider [phone] Encounter Details Date Type Department Care Team (Late st Contact Info) Description 03/21/2021 Results Only [facility] Rheumatology [address] [place] [address] Venecia Rangel MD 130 [facility] [address] [place] [address] Social History Tobacco Use Types [...] EDT Telemedicine [facility] Rheumatology [address] [place] [address] Venecia Rangel MD [address] [place] [address] [place] [address] documented as of this encounter Procedures Procedure Name Priority Date/Time Associated Diagnosis Comments TEST CANCELLED - [facility] Routine 03/21/2021 11:33 EDT documented in this encounter Results * TEST CANCELLED - [facility] (03/21/2021 11:33 EDT) TEST CANCELLED [facility] SEE NOTE 03/21/2021 11:33 EDT [facility] Comment: The following test(s) have been cancelled: TEST: ??COVID ANTIBODY REASON FOR CANCELLATION: ??PER DR. CONTRERAS, ALEKSANDR W/DR. RANGEL OFFICE/MD NOTIFIED ??DR. RANGEL 03/21/2021 11:3 3 EDT 03/21/2021 11:33 EDT us Venecia Rangel MD CHEMISTRY & BLOOD GAS OR DERABLES Final Result [facility] [address] [place] [address] documented in this encounter Visit Diagnoses Not on filedocumented in this encounter Care Teams Healthcare Interpreter Relationship Specialty Start Date End Date Phoebe Iyer FNP PCP - General 07/09/20 11/20/21 documented as of this encounter
--- OUTSIDE RECORDS SUMMARY | 2024-05-25 12:47 | XMS_ITS | Encounter Summary ---
Author Organization [facility] Address [address] [place] [address] Care Team Providers Care Fuel Island Attendant Name Role Phone Serafin Saucedo MD Primary Care Provider [phone] Reason for Visit * Reason Comments Follow-up Doing better ,slight pain in knees and swelling resolved. Encounter Details Date Type Department Care Team (Latest Contact Info) Description 01/03/2020 9:45 EDT Telemedicine [facility] [place] [address] [place], [place] [phone] Venecia Vega MD [address] [place] [address] [address] [place] [address] High risk medication use (Primary Dx); Seronegative spondyloarthropathy ([facility]) Social History Tobacco Use Types Packs/Day Years Used Date Smoking Tobacco: Never Smokeless Tobacco: Never Alcohol Use Standard Drinks/Week Comments Not Currently 0 (1 standard drink = 0.6 oz pur e alcohol) Comments Unknown Sex and Gender Information Value Date Recorded [...] Refills Last Filled Start Date End Date sulfaSALAzine (AZULFIDINE) 500 mg EC tabletIndications:Seroneg ative spondyloarthropathy Take 3 tabs in the AM and 2 tabs in the PM 450 Tab 1 01/03/2020 0 documented in this encounter Progress Notes * Venecia Vega MD - 01/03/2020 0945 EDT [facility] [place] Visit Today's visit was provided through [...] allopathic care to pursue naturopathic care. Rx [id number] with 15months antibiotics/supplements prednisone from [facility] . PT not effective. Re-eval rheum 06/22. [...] records at outside institution not accessible through [facility] 34 [facility] with seronegative spondyloarthropathy. [...] Info) Description 09/21/2024 8:[address] [facility] Rheumatology [address] [place], [place] [address] Venecia Vega MD 130 [facility] [address] [place] [address] documented as of this encounter Visit Diagnoses [...] documented as of this encounter Care Teams Fuel Island Attendant Relationship Specialty Start Date End Date Serafin Saucedo MD [address] [place] [phone] PCP - General 02/13/19 04/25/20 documented as of this encounter
--- OUTSIDE RECORDS SUMMARY | 2024-05-25 12:47 | XMS_ITS | Encounter Summary ---
Author Organization [facility] Address [address] [place] [address] Care Team Providers Care Networking Technology Instructor Name Role Phone Serafin Saucedo MD Primary Care Provider [phone] Reason for Visit * Reason Onset Date Comments Appointment Related 03/26/2020 Encounter Details Date Type Department Care Team (Late st Contact Info) Description 03/26/2020 Telephone [facility] [place] [facility] [address] [place] [address] Milton Buenrostro MD 130 [facility] [address] [place] [address] Appointment Related Social History Tobacco [...] Verbally Threaten Not on file 02/04/2020 Comments Unknown Sex and Gender Information Value [...] Telephone Encounter - Aziza Agarwal - 03/27/2020 1008 EDT Patient returned a call to reschedule her appointment. Cortney was not available to schedule at the time of the call, but states she will call the patient back to schedule. Patient states she will be out of service until 11:00am, but it is okay to leave a message for her. * Telephone Encounter - Aziza Agarwal - 03/26/2020 5225 EDT Patient needs to reschedule her appointment on 03/28. She has a conflict with that day. She has to take her son for braces ( which was unfortunately scheduled on the same day). She states he has already had to reschedule and she doesn't want to put it off further. Please call her at [phone] documented in this encounter Plan of Treatment Upcoming Encounters Date Type Department Care Team (Late st Contact Info) Description 09/21/2024 8:[address] [facility] Rheumatology [address] [place], [place] [address] Venecia Vega MD 130 [facility] [address] [place] [phone] documented as of this encounter Visit Diagnoses Not on filedocumented in this encounter Care Teams Networking Technology Instructor Relationship Specialty Start Date End Date Serafin Saucedo MD [address] [place] [phone] PCP - General 02/13/19 04/25/20 documented as of this encounter
--- OUTSIDE RECORDS SUMMARY | 2024-05-25 12:47 | XMS_ITS | Encounter Summary ---
Author Organization [facility] Address [address] [place] [address] Care Team Providers Care Billing Manager Name Role Phone Phoebe Iyer ABHAY Primary Care Provider [phone] Rebeca Miller APRN Primary Care Provider [phone] Corine Coulter Primary Care Provider [phone] Encounter Details Date Type Department Care Team (Late st Contact Info) Description 02/14/2021 Results Only Imaging [facility] Radiology Results [address] [place] [address] Mila Morrell MD [address] [place] [address], [address] [place] [address] Social History Tobacco Use Types [...] Telemedicine [facility] Rheumatology [address] [place] [address] Venecia Vega MD [address] [place] [address]-[address] [place] [address] documented as of this encounter Procedures Procedure Name Priority Date/Time Associated Diagnosis Comments US PELVIS TRANSVAGINAL COMPLETE 02/14/2021 12:03 EDT documented in this encounter Results * US PELVIS TRANSVAGINAL (02/14/2021 12:03 EDT) Anatomical Region Laterality Modality Pelvis Ultrasound 02/14/2021 11:5 9 EDT Narrative 02/14/2021 12:03 EDT ? EXAM: ULTRASOUND/TRANSVAGINAL - TRAFFIC CONTROL TECHNICIAN W/ DO EX. D/ (1635) ? CLINICAL [...] CC: ? Transcribed Date/Time: 02/14/2021 (1203) ? Auto Bench Mechanic: ? Printed Date/Time: 02/14/2021 (1203) ? PAGE 1 ? Signed Report ? Procedure Note Luis Antonio Griffin MD - 02/14/2021 EXAM: ULTRASOUND/TRANSVAGINAL - TRAFFIC CONTROL TECHNICIAN W/ DO EX. D/ (1635) CLINICAL INFORMATION: [...] Antonio Griffin MD CC: Transcribed Date/Time: 02/14/2021 (2931) Auto Bench Mechanic: Printed Date/Time: 02/14/2021 (2981) PAGE 1 Signed Report Mila Morrell MD [facility] OB ORDERABLES Final Re sult documented in this encounter Visit Diagnoses Not on filedocumented in this encounter Care Teams Billing Manager Relationship Specialty Start Date End Date Phoebe Iyer FNP PCP - General 07/09/20 11/20/21 Rebeca Miller APRN [address] [place] [address] PCP - General Family Medicine - Primary Care 11/21/21 03/07/24 Corine Coulter [address] [facility] [address] PCP - General Family Medicine - Primary Care 03/08/24 documented as of this encounter
--- OUTSIDE RECORDS SUMMARY | 2024-05-25 12:47 | XMS_ITS | Encounter Summary ---
Author Organization [facility] Address [address] [place] [address] Care Team Providers Care Battery Charger Conveyor Line Name Role Phone Serafin Saucedo MD Primary Care Provider [phone] Encounter Details Date Type Department Care Team (Latest Contact Info) Description 12/29/2019 Orders Only [facility] - [facility] Rheumatology [address] [place] [address] Germaine Irby RN Seronegative spondyloarthropathy ([facility]) (Primary Dx) Social History Tobacco Use Types [...] in the PM 450 Tab 1 12/29/2019 0 documented in this encounter Plan of Treatment Upcoming Encounters Date Type Department Care Team (Late st Contact Info) Description 09/21/2024 8:15 EDT Telemedicine [facility] Rheumatology [address] [place] [address] Venecia Vega MD [address] [facility] [address] [place] [phone] documented as of this encounter Visit Diagnoses [...] as of this encounter Care Teams Battery Charger Conveyor Line Relationship Specialty Start Date End Date Serafin Saucedo MD [address] [place] [phone] PCP - General 02/13/19 04/25/20 documented as of this encounter
--- OUTSIDE RECORDS SUMMARY | 2024-05-25 12:47 | XMS_ITS | Encounter Summary ---
Author Organization [facility] Address [address] [place] [address] Care Team Providers Care Court Manager Name Role Phone Phoebe Iyer ABHAY Primary Care Provider [phone] Reason for Visit * Reason Onset Date Comments Other 01/02/2021 Numbness in arms / hands Encounter Details Date Type Department Care Team (Late st Contact Info) Description 01/02/2021 Telephone [facility] - [facility] Rheumatology [address] [place] [address] Venecia Vega MD 130 [facility] [address] [place] [address] Other (Numbness in arms/ hands [...] Paulino. She will plan to call the [facility] and get her remain standing labs drawn. She will also plan to sisal picker a couple of braces to wear at [...] yet receive those results. Attempted to call [facility] but the recording states that their office is closed. Called [facility] and they stated that the only lab drawn was a CBC unfortunately. * Telephone Encounter - Chacha Courtney MA - 01/02/2021 1206 EDT Patient called regarding numbness in her arms, down to her hands. She is also experiencing pain in her fingers when gripping. She did blood work at [facility] yesterday hoping that will give some answers. Please advise. documented in this encounter Plan of Treatment Upcoming Encounters Date Type Department Care Team (Late st Contact Info) Description 09/21/2024 8:15 EDT Telemedicine [facility] - [facility] Rheumatology [address] [place] [address] Venecia Vega MD 130 [facility] [address] [place] [address] documented as of this encounter Visit Diagnoses Not on filedocumented in this encounter Care Teams Court Manager Relationship Specialty Start Date End Date Phoebe Iyer FNP PCP - General 07/09/20 11/20/21 documented as of this encounter
--- OUTSIDE RECORDS SUMMARY | 2024-05-25 12:47 | XMS_ITS | Encounter Summary ---
Author Organization [facility] Address [address] [place] [address] Care Team Providers Care Phlebotomy Coordinator Name Role Phone Serafin Saucedo MD Primary Care Provider [phone] Reason for Visit * Reason Comments Pain * Consult (Routine/Next Available) - Closed Specialty Diagnoses / Procedures Referred By Nishant garcia Referred To Contact Orthopedic Surgery Diagnoses Acute right ankle pain Arlyn Curiel PA-C Phone: tel: fax: [facility] [address] [place] [address] Phone: tel: fax: Referral ID Status Reason Start Date Expiration Date V isits Requested Visits Authorized [id number] Closed Specialty Services Required 02/03/2020 1 1 Encounter Details Date Type Department Care Team (Late st Contact Info) Description 02/08/2020 8:15 EDT Office Visit [facility] [address] [place], [place] [phone] Deya Lyman NP [address] [facility] [address] [place] [address] Sprain of right ankle, unspecified [...] documented in this encounter Progress Notes * Deya Lyman, WILLY - 02/08/2020 0815 EDT CHIEF COMPLAINT: Right ankle injury - DOI 02/02 SUBJECTIVE: Arabella Ojeda is a 34 y.o. female who presents today for evaluation of her right ankleinjury which occurred when she tripped walking down some stairs with her puppy 5 days ago. She thinks she inverted her ankle but can't really remember it happened so quickly. She was evaluated in later that day, XR ready as negative [...] from 02/19 to 06/22 Dr Wyatt at [facility]. ??? Obesity (BMI 30-39.9) ??? Otitis media, recurrent, bilateral ??? Seronegative spondyloarthropathy (HCC-CMS) 07/07/2019 ??? Seronegative spondyloarthropathy (HCC-CMS) 07/07/2019 Social History Tobacco Use ??? Smoking [...] (FLONASE) 50 mcg/actuation nasal spray Instill 1 [place] into both nostrils daily. ??? hydroxychloroquine (PLAQUENIL) [...] 8:15 EDT Telemedicine [facility] - [facility] Rheumatology [address] [place] [address] Venecia Vega MD [address] [place] [address] [address] [place] [phone] documented as of this encounter Visit Diagnoses Diagnosis Sprain of right ankle, unspecified ligament, initial encounter- Primary documented in this encounter Care Teams Phlebotomy Coordinator Relationship Specialty Start Date End Date Serafin Saucedo MD [address] [place] [phone] PCP - General 02/13/19 04/25/20 documented as of this encounter
--- OUTSIDE RECORDS SUMMARY | 2024-05-25 12:47 | XMS_ITS | Encounter Summary ---
Author Organization [facility] Address [address] [place] [address] Care Team Providers Care Investigation Lieutenant Name Role Phone Serafin Saucedo MD Primary Care Provider [phone] Reason for Visit * Reason Onset Date Comments Medications Refill 02/20/2020 omeprazole re fill Encounter Details Date Type Department Care Team ([facility] st Contact Info) Description 02/20/2020 Refill [facility] [place] [address] [place], [place] [address] Serafin Saucedo MD [address] [place] [address] Medications Refill (omeprazole refill ) [...] Refills Last Filled Start Date End Date omeprazole (PRILOSEC) 20 mg capsule Take 1 [...] capsule [Serafin Saucedo III, MD] Preferred pharmacy: [id number] - [place], [place] - [address] [facility] Medication renewals requested in this message route d separately: hydroxychloroquine (PLAQUENIL) 200 mg tablet [Venecia Vega MD] documented in this encounter Plan of Treatment Upcoming Encounters Date Type Department Care Team (Late st Contact Info) Description 09/21/2024 8:15 EDT Telemedicine [facility] Rheumatology [address] [place] [address] Venecia Vega MD 130 [facility] [address] [place] [phone] documented as of this encounter Visit Diagnoses Not on filedocumented in this encounter Discontinued Medications Medication Sig Discontinue Reason Start Date End Da te omeprazole (PRILOSEC) 20 mg capsule TAKE ONE CAPSULE BY MOUTH DAILY NEEDED Reorder 11/28/2019 02/20/2020 documented as of this encounter Care Teams Investigation Lieutenant Relationship Specialty Start Date End Date Serafin Saucedo MD [address] [place] [address] PCP - General 02/13/19 04/25/20 documented as of this encounter
--- OUTSIDE RECORDS SUMMARY | 2024-05-25 12:47 | XMS_ITS | Encounter Summary ---
Author Organization [facility] Address [address] [place] [address] Care Team Providers Care Substation Mechanic Name Role Phone Serafin Saucedo MD Primary Care Provider [phone] Encounter Details Date Type Department Care Team [...] [facility] Rheumatology [address] [place] [address] Venecia Vega MD 130 [facility] [address] [place] [address] documented as of this encounter Visit Diagnoses Not on filedocumented in this encounter Care Teams Substation Mechanic Relationship Specialty Start Date End Date Serafin Saucedo MD [address] [place] [phone] PCP - General 02/13/19 04/25/20 documented as of this encounter
--- OUTSIDE RECORDS SUMMARY | 2024-05-25 12:47 | XMS_ITS | Encounter Summary ---
Author Organization [facility] Address [address] [place] [address] Care Team Providers Care Analytical Laboratory Technician Name Role Phone Serafin Saucedo MD Primary Care Provider [phone] Reason for Visit * Reason Comments Follow-up Encounter Details Date Type Department Care Team (Late st Contact Info) Description 03/19/2020 15:00 EDT Office Visit [facility]ics & Sport Medicine [address] [place], [place] [phone] Deya Lyman NP [address] [facility] [address] [place] [address] Sprain of right ankle, unspecified [...] this encounter Progress Notes * Deya Lyman, LITIGATION SECRETARY - 03/19/2020 1500 EDT PROBLEM: Right ankle [...] Contact Info) Description 09/21/2024 8:15 EDT Telemedicine [facility] Rheumatology [address] [place] [phone] Venecia Vega MD [address] [facility] [address] [place] [phone] documented as of this encounter Visit Diagnoses Diagnosis Sprain of right ankle, unspecified ligament, subsequent encounter- Primary documented in this encounter Care Teams Analytical Laboratory Technician Relationship Specialty Start Date End Date Serafin Saucedo MD [address] [place] [phone] PCP - General 02/13/19 04/25/20 documented as of this encounter
--- OUTSIDE RECORDS SUMMARY | 2024-05-25 12:47 | XMS_ITS | Encounter Summary ---
Author Organization [facility] Address [address] [place] [address] Care Team Providers Care Head Of Acquisitions Name Role Phone Serafin Saucedo MD Primary Care Provider [phone] Reason for Referral * Referral (Routine/Next Available) - Closed Specialty Diagnoses / Procedures Referred By Nishant garcia Referred To Contact Diagnoses Acute right ankle pain Arlyn Curiel PA-C Phone: tel: fax: Referral ID Status Reason Start Date Expiration Date V isits Requested Visits Authorized [id number] Closed Specialty Services Required 02/07/2020 1 1 Question Answer Reason for Request: Referral to [facility] as per patient request. Right ankle sprain- xray negative, can not exclude ligament injury. Reason for Visit * Reason Onset Date Comments Referral Request 02/06/2020 Encounter Details Date Type Department Care Team (Late st Contact Info) Description 02/06/2020 Telephone [facility] [address] [place] [address] Express Care, [facility] [address] [place] [address] Referral Request Social History Tobacco Use [...] she could get a referral sent to [facility]. There is a referral in her chart but is closed? documented in this encounter Plan of Treatment Upcoming Encounters Date Type Department Care Team (Late st Contact Info) Description 09/21/2024 8:15 EDT Telemedicine [facility] Rheumatology [address] [place] [address] Venecia Vega MD [address] [facility] [address] [place] [phone] Scheduled Referrals Name Type Priority Associated Diagnoses Order Schedule AMB CONS/FOLLOW UP ORTHOPEDICS Outpatient Referral Routine Acute right ankle pain Ordered: 02/07/2020 documented as of this encounter Visit Diagnoses Diagnosis Acute right ankle pain- Primary documented in this encounter Care Teams Head Of Acquisitions Relationship Specialty Start Date End Date Serafin Saucedo MD [address] [place] [address] PCP - General 02/13/19 04/25/20 documented as of this encounter
--- OUTSIDE RECORDS SUMMARY | 2024-05-25 12:47 | XMS_ITS | Encounter Summary ---
Author Organization [facility] Address [address] [place] [address] Care Team Providers Care Veterinary Physiologist Name Role Phone Phoebe Iyer ABHAY Primary Care Provider [phone] Reason for Visit * Reason Comments Other Encounter Details Date Type Department Care Team (Late st Contact Info) Description 08/15/2020 Refill [facility] [place] [address] [place] [address] Venecia Vega MD 130 [facility] [address] [place] [phone] Other Social History Tobacco Use Types Packs/Day [...] Info) Description 09/21/2024 8:15 EDT Telemedicine [facility] Rheumatology [address] [place] [address] Venecia Vega MD [address] [place] [address] [address] [place] [phone] documented as of this encounter Visit Diagnoses Diagnosis Spondyloarthropathy- Primary Spondylosis of unspecified site without mention of myelopathy documented in this encounter Discontinued Medications Medication Sig Discontinue Reason Start Date End Da te hydrOXYchloroQUINE (PLAQUENIL) 200 mg tabletIndications:Spondyl oarthropathy Take 1 Tab by mouth daily. 02/21/2020 08/16/2020 documented as of this encounter Care Teams Veterinary Physiologist Relationship Specialty Start Date End Date Phoebe Iyer FNP PCP - General 07/09/20 11/20/21 documented as of this encounter
--- OUTSIDE RECORDS SUMMARY | 2024-05-25 12:47 | XMS_ITS | Encounter Summary ---
Author Organization [facility] Address [address] [place] [address] Care Team Providers Care Podiatrist Name Role Phone Phoebe Iyer ABHAY Primary Care Provider [phone] Encounter Details Date Type Department Care Team (Late st Contact Info) Description 10/18/2020 Orders Only [facility] Rheumatology [address] [place], [place] [address] Germaine Irby, RN Inflammatory polyarthropathy ([facility]) (Primary Dx) Social History Tobacco Use Types [...] in this encounter Progress Notes * Germaine Irby, CHRISTIANO - 10/18/2020 1347 EDT THELMA request for Xedeepak continuation sent to PA team. documented in this encounter Plan of Treatment Upcoming Encounters Date Type Department Care Team (Late st Contact Info) Description 09/21/2024 8:15 EDT Telemedicine [facility] Rheumatology [address] [place] [address] Venecia Vega MD 130 [facility] [address] [place] [phone] documented as of this encounter Visit Diagnoses Diagnosis Inflammatory polyarthropathy (HCC-CMS)- Primary Unspecified inflammatory polyarthropathy documented in this encounter Care Teams Podiatrist Relationship Specialty Start Date End Date Phoebe Iyer FNP PCP - General 07/09/20 11/20/21 documented as of this encounter
--- OUTSIDE RECORDS SUMMARY | 2024-05-25 12:47 | XMS_ITS | Encounter Summary ---
Author Organization [facility] Address [address] [place] [address] Care Team Providers Care Photovoltaic Technician Name Role Phone Serafin Saucedo MD Primary Care Provider [phone] Reason for Referral * Consult (Routine/Next Available) - Closed Specialty Diagnoses / Procedures Referred By Nishant garcia Referred To Contact Orthopedic Surgery Diagnoses Acute right ankle pain Arlyn Curiel PA-C Phone: tel: fax: [facility] [address] [place] [address] Phone: tel: fax: Referral ID Status Reason Start Date Expiration Date V isits Requested Visits Authorized [id number] Closed Specialty Services Required 02/03/2020 1 1 Question Answer Reason for Request: 34yo female with right ankle sprain. Xray is negative for fracture. Ligament injury can not be excluded. Walking boot is placed. Fitted with crutches Reason for Visit * Reason Comments Ankle Injury Encounter Details Date Type Department Care Team (Late st Contact Info) Description 02/03/2020 12:45 EDT [facility] [address] [facility], [place] [address] Arlyn Curiel PA-C [address] [place] [address] Acute right ankle pain (Primary [...] in past 14 days: Travel outside of [place] in last 14 days? n If yes, was it to a low risk location? Reference [facility] Travel Map to see if the location falls within a low risk area (<400 casesper million): https://accd.[place].gov/covid-19/restart/dvzfy-xslux-vulkdo LUCÍA GUERRA RN 02/03/20 12:45 * Arlyn Curiel PA-C - 02/03/2020 1245 EDT [facility] Express Care Chief Complaint(s): Ankle Injury HPI: [...] Contact Info) Description 09/21/2024 8:15 EDT Telemedicine [facility] Rheumatology [address] [place] [address] Venecia Vega MD [address] [facility] [place] [address] Scheduled Orders Name Type Priority [...] CC: ? Transcribed Date/Time: 02/03/2020 (1401) ? Pelt Grader: ? Printed Date/Time: 02/03/2020 (1401) ? PAGE [...] By: Austin Bundy CC: Transcribed Date/Time: 02/03/2020 (0471) Pelt Grader: Printed Date/Time: 02/03/2020 (4249) PAGE 1 Signed Report us Arlyn Curiel PA-C IMG DIAGNOSTIC IMAGI NG ORDERABLES Final Result documented in this encounter Visit Diagnoses Diagnosis Acute right ankle pain- Primary documented in this encounter Care Teams Photovoltaic Technician Relationship Specialty Start Date End Date Serafin Saucedo MD [address] [place] [phone] PCP - General 02/13/19 04/25/20 documented as of this encounter
--- OUTSIDE RECORDS SUMMARY | 2024-05-25 12:47 | XMS_ITS | Encounter Summary ---
Author Organization [facility] Address [address] [place] [address] Care Team Providers Care Sales Executive Name Role Phone Serafin Saucedo MD Primary Care Provider [phone] Phoebe Iyer Primary Care Provider + [phone] Rebeca Miller APRN Primary Care Provider [phone] Corine Coulter Primary Care Provider [phone] Reason for Visit * Reason Onset Date Comments Medications Refill 02/20/2020 Encounter Details Date Type Department Care Team (Late st Contact Info) Description 02/20/2020 Refill [facility] Rheumatology [address] [place] [address] Venecia Vega MD 130 [facility] [address] [place] [address] Medications Refill Social History Tobacco [...] Date End Date hydrOXYchloroQUINE (PLAQUENIL) 200 mg tabletIndications:S pondyloarthropathy Take 1 Tab by mouth daily. 90 Tab 1 02/21/2020 08/16/2020 documented in this encounter Miscellaneous Notes * Telephone Encounter - Germaine Iryb RN - 02/21/2020 0849 EDTFrom: Arabella Ojeda To: Office of Venecia Vega MD Sent: 02/20/2020 20:13 EDT Subject: Medication Renewal Request Refills have been requested for the following medications: hydroxychloroquine (PLAQUENIL) 200 mg tablet [Venecia Vega MD] Preferred pharmacy: [id number] - [place], [place] - [address] [facility] Medication renewals requested in this messag e routed separately: omeprazole (PRILOSEC) 20 mg capsule [Serafin Saucedo III, MD] documented in this encounter Plan of Treatment Upcoming Encounters Date Type Department Care Team (Late st Contact Info) Description 09/21/2024 8:15 EDT Telemedicine [facility] Rheumatology [address] [place], [place] [address] Venecia Vega MD [address] [facility] [address] [place] [address] documented as of this encounter Visit Diagnoses Diagnosis 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 Reorder 11/10/2019 02/20/2020 documented as of this encounter Care Teams Sales Executive Relationship Specialty Start Date End Date Serafin Saucedo MD [address] [place] [phone] PCP - General 02/13/19 04/25/20 Phoebe Iyer FNP [address] [place] [phone] PCP - General 07/09/20 11/20/21 Rebeca Miller APRN [address] [place] [address] PCP - General Family Medicine - Primary Care 11/21/21 03/07/24 Corine Coulter [address] [place] [phone] PCP - General Family Medicine - Primary Care 03/08/24 documented as of this encounter
--- OUTSIDE RECORDS SUMMARY | 2024-05-25 12:47 | XMS_ITS | Encounter Summary ---
Author Organization [facility] Address [address] [place] [address] Care Team Providers Care Roundhouse Supervisor Name Role Phone Serafin Saucedo MD Primary Care Provider Phoebe Iyer Primary Care Provider + [phone] Rebeca Miller APRN Primary Care Provider [phone] Corine Coulter Primary Care Provider [phone] Reason for Visit * Reason Comments Other Encounter Details Date Type Department Care Team (Late st Contact Info) Description 11/27/2019 Refill [facility] Primary Care - [address] [address] Serafin Saucedo MD [address] [place] [address] Other Social History Tobacco Use [...] End Date omeprazole (PRILOSEC) 20 mg capsule TAKE ONE CAPSULE BY MOUTH DAILY NEEDED 90 Cap 2 11/28/2019 0 documented in this encounter Plan of Treatment Upcoming Encounters Date Type Department Care Team (Late st Contact Info) Description 09/21/2024 8:15 EDT Telemedicine [facility] Rheumatology [address] [place] [address] Venecia Vega MD 130 [facility] [address] [place] [address] documented as of this encounter Visit Diagnoses Not on filedocumented in this encounter Discontinued Medications Medication Sig Discontinue Reason Start Date End Da te omeprazole (PRILOSEC) 20 mg capsule 04/12/2019 11/28/2019 documented as of this encounter Care Teams Roundhouse Supervisor Relationship Specialty Start Date End Date Serafin Saucedo MD [address] [place] [address] PCP - General 02/13/19 04/25/20 Phoebe Iyer FNP [address] [place] [address] PCP - General 07/09/20 11/20/21 Rebeca Miller APRN [address] [place] [address] PCP - General Family Medicine - Primary Care 11/21/21 03/07/24 Corine Coulter [address] [place] [address] PCP - General Family Medicine - Primary Care 03/08/24 documented as of this encounter
--- OUTSIDE RECORDS SUMMARY | 2024-05-25 12:47 | XMS_ITS | Encounter Summary ---
Author Organization [facility] Address [address] [place] [address] Care Team Providers Care Volunteer Services Supervisor Name Role Phone Serafin Saucedo MD Primary Care Provider [phone] Phoebe Iyer Primary Care Provider + [phone] Rebeca Miller APRN Primary Care Provider + [phone] Corine Coulter Primary Care Provider [phone] Reason for Visit * Reason Comments Other Encounter Details Date Type Department Care Team (Late st Contact Info) Description 02/20/2020 Refill [facility] [place] [address] [place] [address] Venecia Vega MD [address] [facility] [address] [place] [phone] Other Social History Tobacco Use [...] Info) Description 09/21/2024 8:15 EDT Telemedicine [facility] Rheumatology [address] [place] [phone] Venecia Vega MD [address] [place] [address]- [address] [place] [phone] documented as of this encounter Visit Diagnoses Diagnosis Spondyloarthropathy Spondylosis of unspecified site without mention of myelopathy documented in this encounter Care Teams Volunteer Services Supervisor Relationship Specialty Start Date End Date Serafin Saucedo MD [address] [place] [phone] PCP - General 02/13/19 04/25/20 Phoebe Iyer FNP [address] [place] [phone] PCP - General 07/09/20 11/20/21 Rebeca Miller APR[place] [address] [place] [phone] PCP - General Family Medicine - Primary Care 11/21/21 03/07/24 Corine Coulter [address] [place] [phone] PCP - General Family Medicine - Primary Care 03/08/24 documented as of this encounter
--- OUTSIDE RECORDS SUMMARY | 2024-05-25 12:47 | XMS_ITS | Encounter Summary ---
Author Organization [facility] Address [address] [place] [address] Care Team Providers Care Oil Burner Technician Name Role Phone Phoebe Iyer ABHAY Primary Care Provider Encounter Details Date Type Department Care Team (Latest Contact Info) Description 09/03/2020 Orders Only [facility] Rhe[place]ology [address] [place], [place] [phone] Germaine Irby RN Spondyloarthropathy (Primary Dx); Encounter [...] Progress Notes * Germaine Irby RN - 09/03/2020 1052 EST Standing lab orders renewed. documented in this encounter Plan of Treatment Upcoming Encounters Date Type Department Care Team (Late st Contact Info) Description 09/21/2024 8:15 EDT Telemedicine [facility] Rheumatology [address] [place] [address] Venecia Vega MD 130 [facility] [address] [place] [phone] documented as of this encounter Visit Diagnoses Diagnosis Spondyloarthropathy- Primary Spondylosis of unspecified site without mention of myelopathy Encounter for long-term (current) use of other medications documented in this encounter Care Teams Oil Burner Technician Relationship Specialty Start Date End Date Phoebe Iyer FNP PCP - General 07/09/20 11/20/21 documented as of this encounter
--- OUTSIDE RECORDS SUMMARY | 2024-05-25 12:47 | XMS_ITS | Encounter Summary ---
Author Organization [facility] Address [address] [place] [address] Care Team Providers Care Gleason Gear Generator Name Role Phone Phoebe Iyer ABHAY Primary Care Provider [phone] Reason for Visit * Reason Onset Date Comments Prior Auth, Medication 10/18/2020 Encounter Details Date Type Department Care Team (Late st Contact Info) Description 10/18/2020 Telephone [facility] [place] Rheumatology [address] [place], [place] [phone] Venecia Vega MD 130 [facility] [address] [place] [phone] Prior Auth, Medication Social History [...] Contact Info) Description 09/21/2024 8:15 EDT Telemedicine [facility] Rheumatology [address] [place] [address] Venecia Vega MD 130 [facility] [address] [place] [phone] documented as of this encounter Visit Diagnoses Not on filedocumented in this encounter Care Teams Gleason Gear Generator Relationship Specialty Start Date End Date Phoebe Iyer FNP PCP - General 07/09/20 11/20/21 documented as of this encounter
--- OUTSIDE RECORDS SUMMARY | 2024-05-25 12:47 | XMS_ITS | Encounter Summary ---
Author Organization [facility] Address [address] [place] [address] Care Team Providers Care Business Project Analyst Name Role Phone Serafin Saucedo MD Primary Care Provider [phone] Encounter Details Date Type Department Care Team (Late st Contact Info) Description 11/23/2019 Results Only [facility] Rhe[facility] [address] [place], [place] [address] Venecia Vega MD 130 [facility] [address] [place] [phone] Social History Tobacco Use Types Packs/Day Years [...] Contact Info) Description 09/21/2024 8:15 EDT Telemedicine [facility] Rheumatology [address] [place] [address] Venecia Vega MD 130 [facility] [address] [place] [address] documented as of this encounter Procedures Procedure Name Priority Date/Time Associated Diagnosis Comments COMPLETE BLOOD COUNT WITH DIFFERENTIAL (AUTO) Routine 11/23/2019 14:20 EDT C REACTIVE PROTEIN Routine 11/23/2019 14 :20 EDT COMPREHENSIVE METABOLIC PANEL (CMP) Routine 11/23/2019 14:20 EDT documented in this encounter Results * (ABNORMAL) C REACTIVE PROTEIN (11/23/2019 14:20 EDT) Pathologist [facility] C-Reactive Protein 20.2(H) <10.0 mg/L 11/23/2019 15:17 EDT [facility] 11/23/2019 14:2 0 EDT 11/23/2019 14:20 EDT Narrative [facility] - 11/23/2019 15:17 EDT Does PT Have a Latex Allergy? NO us Venecia Vega MD CHEMISTRY & BLOOD GAS OR DERABLES Final Result [facility] * (ABNORMAL) COMPREHENSIVE METABOLIC PANEL (CMP) (11/23/2019 14:20 EDT) Pathologist [facility] Albumin % 4.3 3.4 - 4.9 g/dL 11/23/2019 15:17 EDT [facility] ALKALINE PHOSPHATASE - [facility] 78 38 - 126 U/L 11/23/2019 15:17 EDT [facility] BILIRUBIN TOTAL 0.4 0.2 - 1.3 mg/dL 11/23/2019 15:17 EDT [facility] BUN - [facility] 10 10 - 26 mg/dL 11/23/2019 15:17 EDT [facility] CALCIUM - [facility] 9.4 8.5 - 10.5 mg/dL 11/23/2019 15:17 [facility] Chloride 103 96 - 110 mmol/L 11/23/2019 15:17 [facility] CO2 Total 23 22 - 32 mEq/L 11/23/2019 15:17 [facility] CREATININE 0.66 0.52 - 1.04 mg/dL 11/23/2019 15:17 [facility] eGFR >60 11/23/2019 15:17 [facility] Comment: Chronic renal impairment is defined as GFR <60 Multiply result by 1.210 for patients. eGFR calculated using the [facility]-traceable MDRD Study Equation. ??(effective 05/07/2014) Anion Gap 9 0 - 18 11/23/2019 15:17 [facility] GLUCOSE - [facility] 118(H) 70 - 100 mg/dL 11/23/2019 15:17 [facility] Potassium 4.2 3.5 - 5.0 mEq/L 11/23/2019 15:17 [facility] Sodium 135(L) 136 - 145 mEq/L 11/23/2019 15:17 [facility] TOTAL PROTEIN - [facility] 7.5 6.2 - 8.2 gm/dL 11/23/2019 15:17 [facility] SGOT/AST - [facility] 21 14 - 36 U/L 11/23/2019 15:17 [facility] SGPT/ALT - [facility] 18 0 - 35 U/L 0 15:17 [facility] 11/23/2019 14:2 0 EDT 11/23/2019 14:20 [facility] - 11/23/2019 15:17 EDT Does PT Have a Latex Allergy? NO us Venecia Vega MD CHEMISTRY & BLOOD GAS OR DERABLES Final Result [facility] * (ABNORMAL) COMPLETE BLOOD COUNT WITH DIFFERENTIAL (AUTO) (11/23/2019 14:20 EDT) Gran # 7.2 2.2 - 8.85 10e3/uL 11/23/2019 14:28 [facility] BASO # - [facility] 0.07 0.01 - 0.11 10e/uL 11/23/2019 14:28 [facility] BASO % - [facility] 1 0 - 2 % 11/23/2019 14:28 [facility] EOS # - [facility] 0.51 0.03 - 0.61 10e3/ul 11/23/2019 14:28 [facility] EOS % - [facility] 4 0 - 5 % 11/23/2019 14:28 [facility] GRAN % - [facility] 54.4 40 - 80 % 11/23/2019 14:28 [facility] HEMATOCRIT - [facility] 40.8 34.9 - 44.4 % 11/23/2019 14:28 [facility] HEMOGLOBIN - [facility] 13.0 11.6 - 15.2 g/dl 11/23/2019 14:28 [facility] IG# - [facility] 0.06 0 - 0.7 10e3/uL 11/23/2019 14:28 [facility] IG% - [facility] 0.5 0 - 0.9 % 11/23/2019 14:28 [facility] LYMPH # - [facility] 4.5(H) 1.09 - 3.3 10e3/ul 11/23/2019 14:28 [facility] LYMPH% - [facility] 33.7 20 - 40 % 11/23/2019 14:28 [facility] MEAN CORPUSCULAR HGB - [facility] 28.6 26.7 - 33.3 pg 11/23/2019 14:28 [facility] MEAN CORPUSCULAR HGB CONC - [facility] 31.9(L) 32.1 - 35.9 g/dL 11/23/2019 14:28 [facility] MEAN CELL VOLUME - [facility] 89.9 81 - 98 fl 11/23/2019 14:28 [facility] MONO # - [facility] 0.9(H) 0.1 - 0.8 10e3/uL 11/23/2019 14:28 EDT [facility] MONO% - [facility] 7.0 0 - 12 % [facility]2019 [facility] 434(H) 141 - 377 10e3/ul 11/23/2019 14:28 EDT [facility] RED BLOOD COUNT - [facility] 4.54 3.86 - 5.04 10e3/ul 11/23/2019 14[facility] RED CELL DISTRI WIDTH - [facility] 14.6 <14.7 % 11/23/2019 14:28 [facility] WHITE BLOOD COUNT - [facility] 13.2(H) 4.0 - 12.4 10e3/ul 11/23/2019 14:28 [facility] 11/23/2019 14:2 0 EDT 11/23/2019 14:21 EDT Narrative [facility] - 11/23/2019 14:28 EDT Does PT Have a Latex Allergy? NO us Venecia Vega MD HEMATOLOGY & PF4 ORDERAB LES Final Result [facility] documented in this encounter Visit Diagnoses Not on filedocumented in this encounter Care Teams Business Project Analyst Relationship Specialty Start Date End Date Serafin Saucedo MD [address] [place] [phone] PCP - General 02/13/19 04/25/20 documented as of this encounter
--- OUTSIDE RECORDS SUMMARY | 2024-05-25 12:47 | XMS_ITS | Encounter Summary ---
Author Organization [facility] Address [address] [place] [address] Care Team Providers Care Lumber Yard Worker Name Role Phone Phoebe Iyer ABHAY Primary Care Provider [phone] Reason for Visit * Reason Comments Follow-up Inflammatory arthrit is. Doing well, denies any concerns. Encounter Details Date Type Department Care Team (Latest Contact Info) Description 11/06/2020 9:45 EDT Telemedicine [facility] [place] [address] [place] [address] Venecia Vega MD 130 [facility] [address] [place] [address] Seronegative spondyloarthropathy (Primary Dx); Bilateral [...] Venecia Vega MD - 11/06/2020 0945 EDT [facility] [place] Visit Today's visit was provided through [...] allopathic care to pursue naturopathic care. Rx [id number] anti biotics/supplements prednisone from [place] . PT [...] These tests were drawn on 07/09/2020 at [facility]. and review and summarization of medical records through CareEverywhere, summary: Previous laboratory notes, progress notes, imaging [...] Contact Info) Description 09/21/2024 8:15 EDT Telemedicine [facility] Rheumatology [address] [place], [place] [phone] Venecia Vega MD 130 [facility] [address] [place] [phone] documented [...] may reflect changes made after this encounter. predniSONE (DELTASONE) 20 mg tablet TAKE 2 TABLETS BY MOUTH FOR 5 DAYS THEN STOP 09/02/2020 11/06/2020 ondansetron (ZOFRAN) 8 mg tablet Take 8 mg by mouth every 8 hours as needed. 09/02/2020 02/06/2021 added in this encounter Care Teams Lumber Yard Worker Relationship Specialty Start Date End Date Phoebe Iyer FNP PCP - General 07/09/20 11/20/21 documented as of this encounter
--- OUTSIDE RECORDS SUMMARY | 2024-05-25 12:47 | XMS_ITS | Encounter Summary ---
Author Organization [facility] Address [address] [place] [address] Care Team Providers Care Desktop Architect Name Role Phone Serafin Saucedo MD Primary Care Provider [phone] Encounter Details Date Type Department Care Team [...] EDT Telemedicine [facility] Rheumatology [address] [place] [address] Venecia Vega MD [address] [facility] [address] [place] [phone] documented as of this encounter Visit Diagnoses Not on filedocumented in this encounter Care Teams Desktop Architect Relationship Specialty Start Date End Date Serafin Saucedo MD [address] [place] [phone] PCP - General 02/13/19 04/25/20 documented as of this encounter
--- OUTSIDE RECORDS SUMMARY | 2024-05-25 12:47 | XMS_ITS | Encounter Summary ---
Author Organization [facility] Address [address] [place] [address] Care Team Providers Care Animal Trainer Supervisor Name Role Phone Phoebe Iyer ABHAY Primary Care Provider [phone] Reason for Visit * Reason Onset Date Comments Prior Auth, Medication 10/22/2020 Encounter Details Date Type Department Care Team (Late st Contact Info) Description 10/22/2020 Telephone [facility] [place] [address] [place], [place] [phone] Venecia Vega MD 130 [facility] [address] [place] [address] Prior Auth, Medication Social History [...] bid renewal Approved: through 10/22/21 Authorization Number: [id number] Benefits Information or Other Notes: Required Pharmacy: Preferred Pharmacy: [facility] (eligible to fill with [facility] in the future if she would like) Prior Authorization Submission Process Medication: Xeljanz 5mg bid renewal Insurance: [facility] [place] Request Received: 10/18/20 [place] Submission Date: 10/22/20 [facility] [place]: n/a submitted via fax Submitted by: Denise Phone: [phone] documented in this encounter Plan of Treatment Upcoming Encounters Date Type Department Care Team (Late st Contact Info) Description 09/21/2024 8:15 EDT Telemedicine [facility] [place] [address] [place] [address] Venecia Vega MD 130 [facility] [address] [phone] documented as of this encounter Visit Diagnoses Not on filedocumented in this encounter Care Teams Animal Trainer Supervisor Relationship Specialty Start Date End Date Phoebe Iyer FNP PCP - General 07/09/20 11/20/21 documented as of this encounter
--- OUTSIDE RECORDS SUMMARY | 2024-05-25 12:47 | XMS_ITS | Encounter Summary ---
Author Organization [facility] Address [address] [place] [address] Care Team Providers Care Parts Consultant Name Role Phone Serafin Saucedo MD Primary Care Provider [phone] Reason for Visit * Reason Comments Ear Fullness 2-3 weeks of ear genoveva n, visit to PCP and Rx'd Amox, improved slightly and now worsening. PCP Rx'd another Amoxicillin and now pain worsening. Encounter Details Date Type Department Care Team (Late st Contact Info) Description 01/21/2020 12:30 EDT [facility] [address] [place], [place] [phone] Bobby Sheth, RECREATION SPECIALIST [address] [facility] [address] [place], [place] [phone] Acute ear pain, bilateral (Primary Dx) Social [...] Patient Instructions * Patient Instructions* Bobby Sheth, WILLY - 01/21/2020 12:30 EDT Images from the original note were not included. [facility] Patient Instructions Earache: Care Instructions Your [...] pad on your skin. ?? Take an [id number] pain medicine, such as acetaminophen (Tylenol), ibuprofen [...] Where can you learn more? Go to [email or web address] or log into your [employer] account at [email or web address] Enter C927 in the search box to learn more about Earache: Care Instructions. Current as of: January 29, 2019Content Version: 12.4 ?? [id number] [employer]. Care instructions adapted under license by [facility]. If you have questions about a medical condition or this instruction, always ask your healthcare professional. [employer] disclaims any warranty or liability for your use of this information. documented in this encounter Ordered Prescriptions Prescription Sig Dispense Quantity Refills Last Filled Start Date End Date methocarbamoL (ROBAXIN) 500 mg tabletIndications: Acute ear pain, bilateral Take 2 Tabs by [...] past 14 days: NO Travel outside of [place] in last 14 days? NO If yes, was it to a low risk location? Reference [place] Travel Map to see if the location falls within a low risk area (<400 casesper million): https://accd.[place].gov/covid-19/restart/bahqr-arjbf-beyhsk * Telly Gilbert RN - 01/21/2020 1230 [...] Bobby Sheth APRN - 01/21/2020 1230 EDT [facility] Chief Complaint(s): Ear Fullness (2-3 weeks of ear pain, visit to PCP and Rx'd Amox, improved slightly and now worsening. PCP Rx'd another Amoxicillin and now pain worsening. ) HPI: Reason for referral to [facility]: headache Where patient was examined: [facility] tent Screened from: [facility] Arabella presents for c/o ear pain. She [...] for both. She has previously seen Dr. Buenrostro for right OM, and I encouraged her [...] Info) Description 09/21/2024 8:15 EDT Telemedicine [facility] Rheumatology [address] [place], [place] [address] Venecia Vega MD 130 [facility] [address] [place] [phone] documented as of this encounter Visit Diagnoses Diagnosis Acute ear pain, bilateral- Primary documented in this encounter Care Teams Parts Consultant Relationship Specialty Start Date End Date Serafin Saucedo MD [address] [place] [phone] PCP - General 02/13/19 04/25/20 documented as of this encounter
--- OUTSIDE RECORDS SUMMARY | 2024-05-25 12:47 | XMS_ITS | Encounter Summary ---
Author Organization [facility] Address [address] [place] [address] Care Team Providers Care Polymerization Engineer Name Role Phone Serafin Saucedo MD Primary Care Provider [phone] Reason for Visit * Reason Onset Date Comments Medication Management 12/29/2019 Encounter Details Date Type Department Care Team (Late st Contact Info) Description 12/29/2019 Telephone [facility] [place] Rhe[place]ology [address] [place] [address] Venecia Vega MD 130 [facility] [address] [place] [phone] Medication Management Social History Tobacco Use Types [...] 0836 EDT See other TE.Refill sent to [facility] in [place]. * Telephone Encounter - Germaine Irby RN - 01/03/2020 0835 EDT Called pt.[facility] and Rx sent to [facility] for refill. * Telephone Encounter - Germaine Irby RN - 01/02/2020 1614 EDT Called pt.She states that no pharmacies have it.Called [facility] and they have 50 tablets of the [...] 01/01/2020 1450 EDT Patient called to say [facility] has told her the prescription Sulfasalazine is on back order andthey are unclear on when it will be in. Patient states she would like to know what her other options are as she is unable to get the prescription through [facility] or [facility] Please advise [phone]. * Telephone Encounter - Germaine Irby RN - 12/29/2019 1642 EDT Called pt and she confirms that she would like her Rx for Sulfasalazine sent to [facility] [address].Refill sent. * Telephone Encounter - Cortney Olmedo - 12/29/2019 1605 EDT [facility] needs sulfasalazine rx needs to be a 90 day rx fr the insurance to cover it. Please let her know once it has been sent in. Thank you documented in this encounter Plan of Treatment Upcoming Encounters Date Type Department Care Team (Late st Contact Info) Description 09/21/2024 8:15 EDT Telemedicine [facility] Rheumatology [address] [place] [phone] Venecia Vega MD [address] [place] [address]-[address] [place] [phone] documented as of this encounter Visit Diagnoses Not on filedocumented in this encounter Care Teams Polymerization Engineer Relationship Specialty Start Date End Date Serafin Saucedo MD [address] [place] [phone] PCP - General 02/13/19 04/25/20 documented as of this encounter
--- OUTSIDE RECORDS SUMMARY | 2024-05-25 12:47 | XMS_ITS | Encounter Summary ---
Author Organization [facility] Address [address] [place] [address] Care Team Providers Care Railroad Engineer Name Role Phone Serafin Saucedo MD Primary Care Provider [phone] Reason for Visit * Reason Comments Follow-up SNSA; Both knees swo llen the last 10 days; Right>than Left.Tapered off prednisone one week ago. Intermintently hands and feet get ice cold even when hot out. Encounter Details Date Type Department Care Team (Latest Contact Info) Description 11/30/2019 13:45 EDT Telemedicine [facility] Rheumatology [address] [place] [address] Venecia Vega MD [address] [facility] [address] [place] [address] Seronegative spondyloarthropathy (HCC-CMS) (Primary Dx); [...] Date End Date tofacitinib (XELJANZ) 5 mg tablet Take 1 Tab by mouth 2 times daily. 60 Tab 5 12/06/2019 02/17/2021 documented in this encounter Progress Notes * Venecia Vega MD - 11/30/2019 1345 EDT [facility] Video Visit [...] allopathic care to pursue naturopathic care. Rx [id number] with 15months antibiotics/supplements prednisone from [facility] . PT not effective. Re-eval rheum 06/22. [...] to her if had to. Worried about long filler cigar roller machine damage to her knees. Stomach ok. Weight [...] records at outside institution [facility] and [facility] 34 [facility] with seronegative spondyloarthropathy. Very [...] reviewed Assessment & Plan: 1. Seronegative spondyloarthropathy (HCC-[facility]) Patient has persistent knee effusions. Benefit from tnf but had se Pursue xeljanz ER 11 mg daily repeat labs one month rtc one month Continue SSZ/plaquenil 2. High risk medication use TB screen 2016 neg Pursue xeljanz Monitoring labs up to date. 3. Bilateral knee effusions due to her spondyloarthropathy A total of 25 minutes was spent on this encounter on the day of this encounter. The following individuals and their role did participate in today's encounter visit: Provider: Venecia Vega MD Patient * Dorie Pérez - 11/30/2019 1343 EDT PA was approved for Xeljanz 5mg twice daily ( spoke with Dr Vega before I submitted it as the Xeljanz 11mg daily was denied). Please let Arabella know it was approved and send to the correct pharmacy * Pk Stringer RN - 11/30/2019 1348 EDT Rx for xeljanz sent to [facility] and patient notified. documented in this encounter Miscellaneous Notes * Addendum Note - Pk Stringer RN - 11/30/2019 9242 EDTAddended by: PK STRINGER on: 12/06/2019 16:46 Modules accepted: Orders documented in this encounter Plan of Treatment Upcoming Encounters Date Type Department Care Team (Late st Contact Info) Description 09/21/2024 8:15 EDT Telemedicine [facility] Rheumatology [address] [place] [address] Venecia Vega MD [address] [facility] [address] [place] [phone] documented as of this encounter Visit Diagnoses [...] documented as of this encounter Care Teams Railroad Engineer Relationship Specialty Start Date End Date Serafin Saucedo MD [address] [place] [phone] PCP - General 02/13/19 04/25/20 documented as of this encounter
--- OUTSIDE RECORDS SUMMARY | 2024-05-25 12:47 | XMS_ITS | Encounter Summary ---
Author Organization [facility] Address [address] [place] [address] Care Team Providers Care Nc Manager Name Role Phone Serafin Saucedo MD Primary Care Provider [phone] Encounter Details Date Type Department Care Team (Late st Contact Info) Description 02/06/2020 Orders Only [facility] [address] [facility] [place], [place] [phone] [facility] [address] [place], [place] [address] Social History Tobacco Use Types Packs/Day Years [...] Contact Info) Description 09/21/2024 8:15 EDT Telemedicine [facility] Rheumatology [address] [place], [place] [address] Venecia Vega MD 130 [facility] [address] [place] [address] documented as of this encounter Visit Diagnoses Not on filedocumented in this encounter Care Teams Nc Manager Relationship Specialty Start Date End Date Serafin Saucedo MD [address] [place] [phone] PCP - General 02/13/19 04/25/20 documented as of this encounter
--- OUTSIDE RECORDS SUMMARY | 2024-05-25 12:47 | XMS_ITS | Encounter Summary ---
Author Organization [facility] Address [address] [place] [address] Care Team Providers Care Rat Farmer Name Role Phone Phoebe Iyer ABHAY Primary Care Provider Reason for Visit * Reason Onset Date Comments Medications Refill 11/29/2020 Encounter Details Date Type Department Care Team (Late st Contact Info) Description 11/29/2020 Telephone [facility] Rheumatology [address] [place] [address] Cecy Tate RN Medications Refill Social History [...] 3 11/29/2020 10/13/2021 hydrOXYchloroQUINE (PLAQUENIL) 200 mg tabletIndications:S pondyloarthropathy Take 1 Tab by mouth daily. 90 Tab 3 11/29/2020 11/29/2020 documented in this encounter Miscellaneous Notes * Addendum Note - Cecy Tate RN - 11/29/2020 1353 EDTAddended by: CECY TATE on: 11/29/2020 13:53 Modules accepted: Orders * Telephone Encounter - Cecy Tate RN - 11/29/2020 1352 EDT Resent to [facility] * Telephone Encounter - Casandra Murray - 11/29/2020 1347 EDT Pt left a message and said her script was sent to [facility] in [place] but should have gone to [facility] in [place]. * Telephone Encounter - Cecy Tate RN - 11/29/2020 1256 EDT Refilled 11/11/2020 for a year- resent same pharmacy documented in this encounter Plan of Treatment Upcoming Encounters Date Type Department Care Team (Late st Contact Info) Description 09/21/2024 8:15 EDT Telemedicine [facility] Rheumatology [address] [place] [address] Venecia Vega MD [address] [facility] [address] [place] [phone] documented as of this encounter Visit Diagnoses [...] documented as of this encounter Care Teams Rat Farmer Relationship Specialty Start Date End Date Phoebe Iyer FNP PCP - General 07/09/20 11/20/21 documented as of this encounter
--- OUTSIDE RECORDS SUMMARY | 2024-05-25 12:47 | XMS_ITS | Encounter Summary ---
Author Organization [facility] Address [address] [place] [address] Care Team Providers Care Spring Inspector Name Role Phone Shireen Phoebe BLNAK Primary Care Provider [phone] Rebeca Miller APRN Primary Care Provider [phone] Corine Coulter Primary Care Provider [phone] Encounter Details Date Type Department Care Team (Late st Contact Info) Description 01/14/2021 Lab Requisition [facility] Pathology & Laboratory Medicine - [facility] [address] [place], [place] [address] Outr Resulting Lab, Provider Social History Tobacco [...] Contact Info) Description 09/21/2024 8:15 EDT Telemedicine [facility] Rheumatology [address] [place] [phone] Venecia Vega MD [address] [place] [address]-[address] [place] [phone] documented as of this encounter Procedures Procedure Name Priority Date/Time Associated Diagnosis Comments HIGH SENSITIVITY C-REACTIVE PROTEIN (CARDIOVASCULAR DISEASE) Routine 01/13/2021 14:00 EDT documented in this encounter Results * HIGH SENSITIVITY C-REACTIVE PROTEIN (CARDIOVASCULAR DISEASE) (01/13/2021 14:00 EDT) High Sensitivity CRP 4.16 See Note mg/L 01/14/2021 16:52 EDT [facility] Comment: Reference Range: ??Source: The [employer] Clinical Practice Recommendations, 2003 ??Low Risk: ? <1.0 mg/L ??Average Risk: ?? 1.0 - 3.0 mg/L ??High Risk: ?>3.0 mg/L ??Indeterminate*: >10.0 mg/L ??*May be an indication of another source of inflammation or infection Blood VENOUS BLOOD / Unknown 01/13/2021 14:00 EDT 01/14/2021 16:24 EDT us Provider Outr Resulting Lab CHEMISTRY & BLOOD GA S ORDERABLES Final Result [facility] [address] [place] [address] documented in this encounter Visit Diagnoses Not on filedocumented in this encounter Care Teams Spring Inspector Relationship Specialty Start Date End Date Phoebe Iyer FNP PCP - General 07/09/20 11/20/21 Rebeca Miller APRN [address] [place] [phone] PCP - General Family Medicine - Primary Care 11/21/21 03/07/24 Corine Coulter [address] [place] [phone] PCP - General Family Medicine - Primary Care 03/08/24 documented as of this encounter
--- OUTSIDE RECORDS SUMMARY | 2024-05-25 12:47 | XMS_ITS | Encounter Summary ---
Author Organization [facility] Address [address] [place] [address] Care Team Providers Care Health Plan Manager Name Role Phone Phoebe Iyer ABHAY Primary Care Provider [phone] Reason for Visit * Reason Comments Medication Management doing well Encounter Details Date Type Department Care Team (Latest Contact Info) Description 07/10/2020 9:45 EST Telemedicine [facility] Rheumatology [address] [place] [address] Venecia Vega MD [address] [facility] [address] [place] [phone] Spondyloarthropathy (Primary Dx); Encounter for [...] Venecia Vega MD - 07/10/2020 0945 EST [facility] Video Visit Today's visit was [...] allopathic care to pursue naturopathic care. Rx [id number] anti biotics/supplements prednisone from [place] . PT [...] These tests were drawn on 07/09/2020 at [facility]. and review and [facility], [facility]: Previous laboratory notes, progress notes, imaging [...] Info) Description 09/21/2024 8:15 EDT Telemedicine [facility] Rheumatology [address] [place] [address] Venecia Vega MD [address] [place] [address]-[address] [place] [phone] documented as of this encounter Visit Diagnoses [...] as of this encounter Care Teams Health Plan Manager Relationship Specialty Start Date End Date Phoebe Iyer FNP PCP - General 07/09/20 11/20/21 documented as of this encounter
--- OUTSIDE RECORDS SUMMARY | 2024-05-25 12:47 | XMS_ITS | Encounter Summary ---
Author Organization [facility] Address [address] [place] [address] Care Team Providers Care Sales And Merchandising Associate Name Role Phone Serafin Saucedo MD Primary Care Provider [phone] Encounter Details Date Type Department Care Team (Late st Contact Info) Description 02/20/2020 Results Only [facility] Rheumatology [address] [place] [address] Venecia Vega MD [address] [facility] [address] [address] [place] [address] Social History Tobacco Use Types [...] EDT Telemedicine [facility] Rheumatology [address] [place] [phone] Venecia Vega MD [address] [place] [address]-[address] [place] [address] documented as of this encounter Procedures Procedure Name Priority Date/Time Associated Diagnosis Comments COMPLETE BLOOD COUNT WITH DIFFERENTIAL (AUTO) Routine 02/20/2020 15:10 EDT C REACTIVE PROTEIN Routine 02/20/2020 15 :10 EDT TSH Routine 02/20/2020 15:10 EDT COMPREHENSIVE METABOLIC PANEL (CMP) Routine 02/20/2020 15:10 EDT documented in this encounter Results * TSH (02/20/2020 15:10 EDT) [facility] THYROID STIM [facility] 1.10 0.46 - 4.68 uIU/ml 02/20/2020 17:31 EDT [facility] Comment: The results of this assay can be falsely lowered due to the consumption of Biotin. 02/20/2020 15:1 0 EDT 02/20/2020 15:10 EDT [facility] - 02/20/2020 17:31 EDT Does PT Have a Latex Allergy? NO Venecia Vega MD CHEMISTRY & BLOOD GAS OR DERABLES Final Result Performing Organization Address [facility] de Phone Number [facility] [address] [place] [address] * (ABNORMAL) C REACTIVE PROTEIN (02/20/2020 15:10 EDT) Pathologist [facility] C-Reactive Protein 13.1(H) <10.0 mg/L 02/20/2020 17:03 EDT [facility] 02/20/2020 15:1 0 EDT 02/20/2020 15:10 EDT [facility] - 02/20/2020 17:03 EDT Does PT Have a Latex Allergy? NO Venecia Vega MD CHEMISTRY & BLOOD GAS OR DERABLES Final Result Performing Organization Address [facility] Phone Number [facility] [address] [place] [address] * (ABNORMAL) COMPREHENSIVE METABOLIC PANEL (CMP) (02/20/2020 15:10 EDT) Albumin % 4.0 3.4 - 4.9 g/dL 02/20/2020 17:03 EDT [facility] ALKALINE PHOSPHATASE - [facility] 69 38 - 126 U/L 02/20/2020 17:03 EDT [facility] BILIRUBIN TOTAL 0.3 0.2 - 1.3 mg/dL 02/20/2020 17:03 EDT [facility] BUN - [facility] 9(L) 10 - 26 mg/dL 02/20/2020 17:03 EDT [facility] CALCIUM - [facility] 9.2 8.5 - 10.5 mg/dL 02/20/2020 17:03 EDT [facility] Chloride 103 96 - 110 mmol/L 02/20/2020 17:03 [facility] CO2 Total 27 22 - 32 mEq/L 02/20/2020 17:03 [facility] CREATININE 0.66 0.52 - 1.04 mg/dL 02/20/2020 17:03 [facility] eGFR >60 02/20/2020 17:03 [facility] Comment: Chronic renal impairment is defined as GFR <60 Multiply result by 1.210 for patients. eGFR calculated using the IDMS-traceable MDRD Study Equation. ??(effective 05/07/2014) Anion Gap 9 0 - 18 02/20/2020 17:03 [facility] GLUCOSE - [facility] 89 70 - 100 mg/dL 02/20/2020 17:03 [facility] Potassium 4.3 3.5 - 5.0 mEq/L 02/20/2020 17:03 [facility] Sodium 139 136 - 145 mEq/L 02/20/2020 17:03 [facility] TOTAL PROTEIN - [facility] 7.2 6.2 - 8.2 gm/dL 02/20/2020 17:03 [facility] SGOT/AST - [facility] 23 14 - 36 U/L 02/20/2020 17:03 [facility] SGPT/ALT - [facility] 17 0 - 35 U/L 0 17:03 [facility] 02/20/2020 15:1 0 EDT 02/20/2020 15:10 EDT Narrative [facility] - 02/20/2020 17:03 EDT Does PT Have a Latex Allergy? NO us Venecia Vega MD CHEMISTRY & BLOOD GAS OR DERABLES Final Result [facility] [address] [place] [address] * (ABNORMAL) COMPLETE BLOOD COUNT WITH DIFFERENTIAL (AUTO) (02/20/2020 15:10 EDT) Gran # 5.5 2.2 - 8.85 10e3/uL 02/20/2020 16:32 [facility] BASO # - [facility] 0.05 0.01 - 0.11 10e/uL 02/20/2020 16:32 [facility] BASO % - [facility] 1 0 - 2 % 02/20/2020 16:32 [facility] EOS # - [facility] 0.40 0.03 - 0.61 10e3/ul 02/20/2020 16:32 [facility] EOS % - [facility] 4 0 - 5 % 02/20/2020 16:32 [facility] GRAN % - [facility] 50.3 40 - 80 % 02/20/2020 16:32 [facility] HEMATOCRIT - [facility] 39.0 34.9 - 44.4 % 02/20/2020 16:32 [facility] HEMOGLOBIN - [facility] 12.6 11.6 - 15.2 g/dl 02/20/2020 16:32 [facility] IG# - [facility] 0.04 0 - 0.7 10e3/uL 02/20/2020 16:32 [facility] IG% - [facility] 0.4 0 - 0.9 % 02/20/2020 16:32 [facility] LYMPH # - [facility] 4.2(H) 1.09 - 3.3 10e3/ul 02/20/2020 16:32 [facility] LYMPH% - [facility] 38.5 20 - 40 % 02/20/2020 16:32 [facility] MEAN CORPUSCULAR HGB - [facility] 29.2 26.7 - 33.3 pg 02/20/2020 16:32 [facility] MEAN CORPUSCULAR HGB CONC - [facility] 32.3 32.1 - 35.9 g/dL 02/20/2020 16:32 [facility] MEAN CELL VOLUME - [facility] 90.3 81 - 98 fl 02/20/2020 16:32 [facility] MONO # - [facility] 0.7 0.1 - 0.8 10e3/uL 02/20/2020 16:32 [facility] MONO% - [facility] 6.7 0 - 12 % 02/20/2020 16:32 EDT [facility] PLATELET COUNT 487(H) 141 - 377 10e3/ul 02/20/2020 16:32 EDT [facility] RED BLOOD COUNT - [facility] 4.32 3.86 - 5.04 10e3/ul 02/20/2020 16:32 EDT [facility] RED CELL DISTRI WIDTH - [facility] 14.5 <14.7 % 02/20/2020 16:32 EDT [facility] WHITE BLOOD COUNT - [facility] 11.0 4.0 - 12.4 10e3/ul 02/20/2020 16:32 EDT [facility] 02/20/2020 15:1 0 EDT 02/20/2020 15:10 EDT Narrative [facility] - 02/20/2020 16:32 EDT Does PT Have a Latex Allergy? NO us Venecia Vega MD HEMATOLOGY & PF4 ORDERAB LES Final Result [facility] [address] [place] [address] documented in this encounter Visit Diagnoses Not on filedocumented in this encounter Care Teams Sales And Merchandising Associate Relationship Specialty Start Date End Date Serafin Saucedo MD [address] [place] [phone] PCP - General 02/13/19 04/25/20 documented as of this encounter
--- OUTSIDE RECORDS SUMMARY | 2024-05-25 12:47 | XMS_ITS | Encounter Summary ---
Author Organization [facility] Address [address] [place] [address] Care Team Providers Care Wax Bleacher Name Role Phone Serafin Saucedo MD Primary Care Provider [phone] Reason for Visit * Reason Comments Follow-up Pt reports inflammat ion in knees and ankles.Stopped Xeljanz 03/29 after URI and dx with pneumonia by PCP.Neg Covid.Asking when she should restart Xeljanz Encounter Details Date Type Department Care Team (Latest Contact Info) Description 04/10/2020 11:15 EDT Telemedicine [facility] Rhe[facility] [address] [place] [address] Venecia Vega MD 130 [facility] [address] [place] [address] Spondyloarthropathy (Primary Dx); High risk [...] Venecia Vega MD - 04/10/2020 11:15 EDT Hold Xeljanz this week Call with update on resp issues in one week Agree with plan to see pcp today re respiratory issues Labs at [facility] , new order sent documented in this encounter Progress Notes * Venecia Vega MD - 04/10/2020 1115 EDT [facility] Video Visit Today's visit was provided through [...] allopathic care to pursue naturopathic care. Rx [id number] with 15months antibiotics/supplements prednisone from [facility] . PT not effective. Re-eval rheum 06/22. Restart prednisone SSZ 06/22 added plaquenil. Added Xeljanz November 2019 ?? HPI: Stopped xeljanz. PCP dx her with fevers and possible pneumonia about 2 weeks ago. Took antibiotic ?Name for 5 days. Then restarted xeljanz 5 days SYSTEMS ANALYST, then feverish increased cough so stopped. Had [...] summarization of medical records through [facility] Assessment & Plan: 1. Spondyloarthropathy xeljanz therapy effective. 2. High risk medication use Holding xeljanz today due to recent uri ? of pneumonia Seeing pcp Will wait one more week to restart Hold Xeljanz this week, patient to contact office in approx 7 days with update on resp condition. May restart at that time New pcp, will send updated standing order to [facility]. A total of 21 minutes was spent on this encounter on the day of this encounter. The following individuals and their role did participate in today's encounter visit: Provider: Venecia Vega MD Patient documented in this encounter Plan of Treatment Upcoming Encounters Date Type Department Care Team (Late st Contact Info) Description 09/21/2024 8:15 EDT Telemedicine [facility] Rheumatology [address] [place] [phone] Venecia Vega MD [address] [place] [address]- [address] [place] [phone] documented as of this encounter Visit Diagnoses Diagnosis Spondyloarthropathy- Primary Spondylosis of unspecified site without mention of myelopathy High risk medication use Encounter for long-term (current) use of other medications documented in this encounter Historical Medications * This list may reflect changes made after this encounter. ibuprofen (MOTRIN) 200 mg tablet Take 600 mg by mouth as needed for Pain. Takes 3 tabs twice a day. 12/12/2021 added in this encounter Care Teams Wax Bleacher Relationship Specialty Start Date End Date Serafin Saucedo MD [address] [place] [phone] PCP - General 02/13/19 04/25/20 documented as of this encounter
--- OUTSIDE RECORDS SUMMARY | 2024-05-25 12:47 | XMS_ITS | Encounter Summary ---
Author Organization [facility] Address [address] [place] [address] Care Team Providers Care Room Service Manager Name Role Phone Unavailable Primary Care Provider Unavailabl e Reason for Visit * Reason Onset Date Comments Advice Only 04/30/2020 Encounter Details Date Type Department Care Team (Late st Contact Info) Description 04/30/2020 Telephone [facility] [place] [address] [place] [address] Venecia Vega MD [address] [facility] [address] [place] [phone] Advice Only Social History Tobacco Use Types [...] Encounter - Katt Stringer RN - 04/30/2020 0963 EDT Any special instructions re: flu shot while taking xeljanz? * Telephone Encounter - Allison Florentino - 04/30/2020 0966 EDT Patient called to ask if it ok if is safe to get a flu shot while taking Xeljanz? Please call patient patient back when possible at [phone]. Thanks. documented in this encounter Plan of Treatment Upcoming Encounters Date Type Department Care Team (Late st Contact Info) Description 09/21/2024 8:15 EDT Telemedicine [facility] Rheumatology [address] [place], [place] [phone] Venecia Vega MD 130 [facility] [address] [place] [phone] documented as of this encounter Visit Diagnoses Not on filedocumented in this encounter
--- OUTSIDE RECORDS SUMMARY | 2024-05-25 12:47 | XMS_ITS | Encounter Summary ---
Author Organization [facility] Address [address] [place] [address] Care Team Providers Care Post Framer Name Role Phone Serafin Saucedo MD Primary Care Provider [phone] Reason for Referral * PT/OT/ST (Routine) - Specialty Report Received Specialty Diagnoses / Procedures Referred By [facility] Referred To Contact Diagnoses Sprain of right ankle, unspecified ligament, subsequent encounter Deay Lyman NP Phone: tel: fax: Referral ID Status Reason Start Date Expiration Date Visits Requested Visits Authorized [id number] Specialty Report Received Specialty Services Required 02/20/2020 1 1 Question Answer Reason for Request: right ankle sprain; high ankle sprain. please evaluate and treat SITE [facility] Reason for Visit * Reason Comments Follow-up Fracture Encounter Details Date Type Department Care Team (Late st Contact Info) Description 02/20/2020 14:00 EDT Office Visit [facility] Orthopedics & Sport Medicine [address], [address] [place] [address] Deya Lyman NP [address] [facility] [address] [place] [address] Sprain of right ankle, unspecified [...] Progress Notes * Deya Lyman, WILLY - 02/20/2020 1400 EDT PROBLEM: Right [...] pain. She is using her walking boot time recorder. The past medical, family and social history [...] placed to PT near her house in [place]. Continue with walking boot, OK to weight [...] [facility] Rheumatology [address] [place] [address] Venecia Vega MD [address] [facility] [address] [place] [address] Scheduled Orders Name Type Priority Associated Diagnoses [...] MD ? CC: ? Transcribed Date/Time: 02/20/2020 (7075) ? Dock Superintendent: ? Printed Date/Time: 02/20/2020 (0223) ? PAGE 1 ? Signed Report ? [...] Bong Mead MD CC: Transcribed Date/Time: 02/20/2020 (4468) Dock Superintendent: Printed Date/Time: 02/20/2020 (8519) PAGE 1 Signed Report Deya Lyman NP IMG DIAGNOSTIC IMAGING ORDERAB LES Final Result documented in this encounter Visit Diagnoses Diagnosis Sprain of right ankle, unspecified ligament, subsequent encounter- Primary documented in this encounter Care Teams Post Framer Relationship Specialty Start Date End Date Serafin Saucedo MD [address] [place] [phone] PCP - General 02/13/19 04/25/20 documented as of this encounter
--- OUTSIDE RECORDS SUMMARY | 2024-05-25 12:47 | XMS_ITS | Encounter Summary ---
Author Organization [facility] Address [address] [place] [address] Care Team Providers Care Aws Developer Name Role Phone Serafin Saucedo MD Primary Care Provider [phone] Reason for Visit * Reason Comments Otalgia bilateral Encounter Details Date Type Department Care Team (Latest Contact Info) Description 01/04/2020 15:30 EDT Office Visit [facility] Adult Primary Care - [address] [phone] Serafin Saucedo MD [address] [place] [phone] Non-recurrent acute suppurative otitis media [...] EDT Height 170.2 cm (5' 7) 01/04/2020 1532 EDT Body Mass Index 40.88 01/04/2020 1532 EDT documented in this encounter Functional Status [...] Refills Last Filled Start Date End Date fluconazole (DIFLUCAN) 150 mg tablet Take 1 [...] positives: * Serafin Saucedo III, MD - 01/04/2020 1530 EDT Progress Note Patient ID: Arabella Ojeda [...] (FLONASE) 50 mcg/actuation nasal spray Instill 1 [place] into both nostrils daily. (Patient taking differently: Instill 1 [place] into both nostrils if needed. 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
--- OUTSIDE RECORDS SUMMARY | 2024-05-25 12:47 | XMS_ITS | Encounter Summary ---
Author Organization [facility] Address [address] [place] [address] Care Team Providers Care Ssis Developer Name Role Phone Serafin Saucedo MD Primary Care Provider [phone] Encounter Details Date Type Department Care Team [...] Contact Info) Description 09/21/2024 8:15 EDT Telemedicine [facility] Rheumatology [address] [place], [place] [address] Venecia Vega MD 130 [facility] [address] [place] [phone] documented as of this encounter Visit Diagnoses Not on filedocumented in this encounter Care Teams Ssis Developer Relationship Specialty Start Date End Date Serafin Saucedo MD [address] [place] [phone] PCP - General 02/13/19 04/25/20 documented as of this encounter
--- OUTSIDE RECORDS SUMMARY | 2024-05-25 12:47 | XMS_ITS | Encounter Summary ---
Author Organization [facility] Address [address] [place] [address] Care Team Providers Care Salesperson Sheet Music Name Role Phone Serafin Saucedo MD Primary Care Provider [phone] Reason for Visit * Reason Onset Date Comments Otalgia 01/17/2020 Encounter Details Date Type Department Care Team (Late st Contact Info) Description 01/17/2020 Telephone [facility] Adult Primary Care - [place] [address] [place], [place] [phone] Serafin Saucedo MD [address] [place] [phone] Otalgia Social History Tobacco Use Types Packs/Day [...] Refills Last Filled Start Date End Date amoxicillin (AMOXIL) 500 mg capsule Take 1 [...] Contact Info) Description 09/21/2024 8:15 EDT Telemedicine [facility] [place] [address] [place], [place] [address] Venecia Vega MD 130 [facility] [address] [place] [phone] documented as of this encounter Visit Diagnoses Not on filedocumented in this encounter Discontinued Medications Medication Sig Discontinue Reason Start Date End Da te amoxicillin (AMOXIL) 500 mg capsule Take 1 Cap by mouth 3 times daily. Reorder 01/04/2020 01/17/2020 documented as of this encounter Care Teams Salesperson Sheet Music Relationship Specialty Start Date End Date Serafin Saucedo MD [address] [place] [phone] PCP - General 02/13/19 04/25/20 documented as of this encounter
--- OUTSIDE RECORDS SUMMARY | 2024-05-25 12:47 | XMS_ITS | Encounter Summary ---
Author Organization [facility] Address [address] [place] [address] Care Team Providers Care Bridge Rigger Name Role Phone Serafin Saucedo MD Primary Care Provider [phone] Reason for Visit * Reason Comments Follow-up Inflammatory arthrit is; things feel good as far as arthritis. Xeljanz really helping. Got a severe ankle sprain 2 weeks ago so that is painful at level 4. Encounter Details Date Type Department Care Team (Latest Contact Info) Description 02/14/2020 9:45 EDT Telemedicine [facility] Rheumatology [address] [place] [address] Venecia Vega MD [address] [facility] [address] [place] [address] Spondyloarthropathy (Primary Dx); High risk [...] - - Weight 118.4 kg (261 lb) 02/14/2020 08 EDT Height 170.2 cm (5' 7) 02/14/2020 08 EDT Body Mass Index 40.88 02/14/2020 0823 EDT documented in this encounter [...] Venecia Vega MD - 02/14/2020 0945 EDT [facility] Video Visit Today's visit was [...] review and summarization of medical records through [facility] Assessment & Plan: 1. Spondyloarthropathy COMPLETE BLOOD [...] Contact Info) Description 09/21/2024 8:15 EDT Telemedicine [facility] Rheumatology [address] [place], [place] [address] Venecia Vega MD [address] [place] [address]- [address] [place] [phone] documented as of this encounter Visit Diagnoses [...] documented as of this encounter Care Teams Bridge Rigger Relationship Specialty Start Date End Date Serafin Saucedo MD [address] [place] [phone] PCP - General 02/13/19 04/25/20 documented as of this encounter
--- OUTSIDE RECORDS SUMMARY | 2024-05-25 12:47 | XMS_ITS | Encounter Summary ---
Author Organization [facility] Address [address] [place] [address] Care Team Providers Care General Freight Agent Name Role Phone Unavailable Primary Care Provider Unavailabl e Reason for Visit * Reason Onset Date Comments Other 07/08/2020 Encounter Details Date Type Department Care Team (Late st Contact Info) Description 07/08/2020 Telephone [facility] Rhe[place]ology [address] [place] [address] Venecia Vega MD [address] [facility] [address] [place] [address] Other Social History Tobacco Use [...] 07/08/2020 1327 EST Faxed standing order to [facility], is there any other orders for patient to have drawn prior to upcoming appointment? * Telephone Encounter - Katt Stringer RN - 07/08/2020 0936 EST [facility] stating that Dr. Vega said in her last visit note that lab orders were faxed to [facility] and asked her to call there and let us know if they don't have the orders. * Telephone Encounter - Beth Carlisle - 07/08/2020 0843 EST Patient called regarding lab work she needs done before her appointment 07/10/2020. She says she needs the orders to be sent to [facility] ([phone]). Good call back [phone] documented in this encounter Plan of Treatment Upcoming Encounters Date Type Department Care Team (Late st Contact Info) Description 09/21/2024 8:15 EDT Telemedicine [facility] Rheumatology [address] [place] [address] Venecia Vega MD [address] [place] [address] [address] [place] [phone] documented as of this encounter Visit Diagnoses Not on filedocumented in this encounter
--- OUTSIDE RECORDS SUMMARY | 2024-05-25 12:47 | XMS_ITS | Encounter Summary ---
Author Organization [facility] Address [address] [place] [address] Care Team Providers Care Customer Service Teller Name Role Phone KalinaPhoebe velasquez ABHAY Primary Care Provider [phone] Reason for Referral * INSTRUMENTATION ENGINEER (Routine) - Closed Specialty Diagnoses / Procedures [facility] To Contact Diagnoses LLQ abdominal pain Procedures US PELVIS TRANSVAGINAL Mila Morrell MD Phone: tel: fax: Referral ID Status Reason Start Date Expiration Date Visits Re quested Visits Authorized [id number] Closed 02/06/2021 1 1 Reason for Visit * Reason Comments Gynecologic Exam pt having lower pelv ic pain. saw pcp and will have pt see customer operations associate and aslo wanted batch analyst to evaluate. periods irregular. Encounter Details Date Type Department Care Team (Latest Contact Info) Description 02/06/2021 12:40 EDT Office Visit [facility] OBGYN [address] [place] [address] Mila Morrell MD [address] [facility] [place] [address] Women's annual routine gynecological examination [...] documented in this encounter Progress Notes * Mila Morrell MD - 02/06/2021 1240 EDT [facility] INSTRUMENTATION ENGINEER Clinic Patient Name: Arabella Ojeda DOS: 02/06/2021 HPI: Arabella Ojeda is a 35 y.o. who presents for batch analyst exam. Declines STD check. Reports irregularmenses, but [...] from 02/19 to 06/22 Dr Wyatt at [facility]. ??? Obesity (BMI 30-39.9) ??? Otitis media, [...] soft, non-tender, non- distended, obese Pelvic: Exam finance consultant declined by patient. Female Genitalia: external genitalia [...] a 35 y.o. who presents for routine batch analyst exam. 1. Women's annual routine gynecological examination [...] Contact Info) Description 09/21/2024 8:15 EDT Telemedicine [facility] Rheumatology [address] [place] [address] Venecia Vega MD [address] [facility] [address] [place] [phone] Scheduled Orders Name Type Priority Associated Diagnoses [...] documented as of this encounter Care Teams Customer Service Teller Relationship Specialty Start Date End Date Phoebe Iyer FNP PCP - General 07/09/20 11/20/21 documented as of this encounter
--- OUTSIDE RECORDS SUMMARY | 2024-05-25 12:47 | XMS_ITS | Encounter Summary ---
Author Organization [facility] Address [address] [place] [address] Care Team Providers Care Manager Trading Name Role Phone Serafin Saucedo MD Primary Care Provider [phone] Encounter Details Date Type Department Care Team [...] 09/21/2024 8:15 EDT Telemedicine [facility] [place] Rheumatology [address] [place] [address] Venecia Vega MD [address] [facility] [address] [place] [address] documented as of this encounter Visit Diagnoses Not on filedocumented in this encounter Care Teams Manager Trading Relationship Specialty Start Date End Date Serafin Saucedo MD [address] [place] [phone] PCP - General 02/13/19 04/25/20 documented as of this encounter
--- OUTSIDE RECORDS SUMMARY | 2024-05-25 12:47 | XMS_ITS | Encounter Summary ---
Author Organization [facility] Address [address] [place] [address] Care Team Providers Care Extruder Name Role Phone Serafin Saucedo MD Primary Care Provider [phone] Reason for Visit * Reason Onset Date Comments Other 04/22/2020 bilateral knee a nd ankle inflammation Encounter Details Date Type Department Care Team (Late st Contact Info) Description 04/22/2020 Telephone [facility] [place] Rheumatology [address] [place] [address] Venecia Vega MD 130 [facility] [address] [place] [address] Other (bilateral knee and ankle [...] End Date predniSONE (DELTASONE) 10 mg tablet One tab daily for 7 days 7 Tab 04/23/2020 07/10/2020 documented in this encounter Miscellaneous Notes * Telephone Encounter - Katt Stringer RN - 04/23/2020 1053 EDT Instructions to resume xeljanz given with appreciation expressed. She would like to have prednisoneso Rx sent to [facility] at her request. * Telephone Encounter - Venecia Vega MD - 04/23/2020 0927 EDT Ok to resume Xeljanz If knee [...] she started xeljanz. * Telephone Encounter - Katy Florentinola - 04/22/2020 1016 EDT Patient called to [...] the inflammation in her joints. Please advise. [phone]. Thanks. documented in this encounter Plan of Treatment Upcoming Encounters Date Type Department Care Team (Late st Contact Info) Description 09/21/2024 8:15 EDT Telemedicine [facility] Rheumatology [address] [place] [address] Venecia Vega MD [address] [facility] [address] [place] [phone] documented as of this encounter Visit Diagnoses Not on filedocumented in this encounter Care Teams Extruder Relationship Specialty Start Date End Date Serafin Saucedo MD [address] [place] [phone] PCP - General 02/13/19 04/25/20 documented as of this encounter
--- OUTSIDE RECORDS SUMMARY | 2024-05-25 12:48 | XMS_ITS | Encounter Summary ---
Author Organization [facility] Address [address] [place] [address] Care Team Providers Care Solar Photovoltaic Installer Name Role Phone None, Provider Primary Care Provider Serafin Zapata MD Primary Care Provider [phone] Encounter Details Date Type Department Care Team (Late st Contact Info) Description 12/06/2018 Historical Results Only [facility] Radiology Results [address] [place] [address] Agus Rutledge PA-C [address] [place] [address] Social History Tobacco Use Types Packs/Day Years Used Date Smoking Tobacco: Never Assessed Comments Unknown Sex and Gender Information Value Date Recorded Sex Assigned at Not on file Legal Sex Female 17:38 EST Gender Identity Female 07/04/2019 11:12 EST Sexual Orientation Not on file documented as of this encounter Plan of Treatment Upcoming Encounters Date Type Department Care Team (Late st Contact Info) Description 09/21/2024 8:15 EDT Telemedicine [facility] Rheumatology [address] [place] [address] Venecia Vega MD 130 [facility] [address] [place] [address] documented as of this encounter [...] DO ? CC: ? Transcribed Date/Time: 12/06/2018 (5863) ? Milieu Therapist: [employer] ? Printed Date/Time: 03/22/2019 (5970) ? PAGE 1 ? Signed Report ? [...] Tahir Chau DO CC: Transcribed Date/Time: 12/06/2018 (6939) Milieu Therapist: Printed Date/Time: 03/22/2019 (5422) PAGE 1 Signed Report us Agus Rutledge PA-C IMG DIAGNOSTIC IMAGING ORDERABLE S Final Result documented in this encounter Visit Diagnoses Not on filedocumented in this encounter Care Teams Solar Photovoltaic Installer Relationship Specialty Start Date End Date None, Provider PCP - General 04/02/15 02/12/19 Serafin Saucedo MD [address] [place] [phone] PCP - General 02/13/19 04/25/20 documented as of this encounter
--- OUTSIDE RECORDS SUMMARY | 2024-05-25 12:48 | XMS_ITS | Encounter Summary ---
Author Organization [facility] Address [address] [place] [address] Care Team Providers Care Seamless Tube Roller Name Role Phone None, Provider Primary Care Provider Serafin Zapata MD Primary Care Provider [phone] Encounter Details Date Type Department Care Team (Late st Contact Info) Description 09/20/2018 Historical Results Only [facility] - Main [place] [address] [place] [address] Nancy Wyatt, ADRIANO [address] [place] [phone] Social History Tobacco Use Types Packs/Day Years [...] Contact Info) Description 09/21/2024 8:15 EDT Telemedicine [facility] Rheumatology [address] [place], [place] [phone] Venecia Vega MD [address] [place] [address] [place] [address] documented as of this encounter Procedures Procedure Name Priority Date/Time Associated Diagnosis Comments THYROGLOBULIN AB Routine 09/20/2018 9:04 EDT documented in this encounter Results * THYROGLOBULIN AB (09/20/2018 9:04 EDT) THYROGLOBULIN ANTIBODY [place] [facility] [place] <61 U/mL 09/21/2018 16:20 EDT [facility] Comment: Test performed or referred by The [address] [address] 09/20/2018 9:04 EDT 09/20/2018 9:04 EDT Narrative [facility] - 09/21/2018 16:20 EDT Does PT Have a Latex Allergy? NO us Nancy Wyatt ND CHEMISTRY & BLOOD GAS ORDERABLES Final Result [facility] documented in this encounter Visit Diagnoses Not on filedocumented in this encounter Care Teams Seamless Tube Roller Relationship Specialty Start Date End Date None, Provider PCP - General 04/02/15 02/12/19 Serafin Saucedo MD [address] [place] [phone] PCP - General 02/13/19 04/25/20 documented as of this encounter
--- OUTSIDE RECORDS SUMMARY | 2024-05-25 12:48 | XMS_ITS | Encounter Summary ---
Author Organization [facility] Address [address] [place] [address] Care Team Providers Care Buncher Hand Name Role Phone None, Provider Primary Care Provider Serafin Zapata MD Primary Care Provider [phone] Encounter Details Date Type Department Care Team (Late st Contact Info) Description 12/04/2018 Historical Results Only [facility] - Main [place] [address] [place] [address] Debra Burgos NP [address] [place] [phone] Social History Tobacco Use Types Packs/Day Years [...] Telemedicine [facility] Rheumatology [address] [place], [place] [address] Venecia Vega MD 130 [facility] [address] [place] [address] documented as of this encounter Procedures Procedure Name Priority Date/Time Associated Diagnosis Comments HERPES SIMPLEX VIRUS (HSV) BY RAPID PCR Routine 12/04/2018 17:34 EDT documented in this encounter Results * HERPES SIMPLEX VIRUS (HSV) BY RAPID PCR (12/04/2018 17:34 EDT) HSV 1 DNA RESULT Negative () 12/07/19 13:03 EDT [facility] HSV 2 DNA RESULT Negative () 12/07/19 13:03 EDT [facility] Comment: Test performed or referred by The [address] [address] SPECIMEN DESCRIPTION - [facility] () 12/06/2018 13:03 EDT [facility] Comment:Right 12/04/2018 17:3 4 EDT 12/04/2018 19:32 EDT Debra Burgos EXPORT ADMINISTRATOR MICROBIOLOGY - GENERAL ORDERABL ES Final Result [facility] documented in this encounter Visit Diagnoses Not on filedocumented in this encounter Care Teams Buncher Hand Relationship Specialty Start Date End Date None, Provider PCP - General 04/02/15 02/12/19 Serafin Saucedo MD [address] [place] [phone] PCP - General 02/13/19 04/25/20 documented as of this encounter
--- OUTSIDE RECORDS SUMMARY | 2024-05-25 12:48 | XMS_ITS | Encounter Summary ---
Author Organization [facility] Address [address] [place] [address] Care Team Providers Care Cyber Workforce Developer And Manager Name Role Phone Serafin Saucedo MD Primary Care Provider [phone] Reason for Visit * Reason Onset Date Comments Medication Management 07/24/2019 Encounter Details Date Type Department Care Team (Late st Contact Info) Description 07/24/2019 Telephone [facility] [place] [place] Rheumatology [address] [place], [place] [phone] Venecia Vega MD 130 [facility] [address] [place] [phone] Medication Management Social History Tobacco Use Types [...] Rx for Prednisone as ordered sent to [facility]. * Telephone Encounter - Germaine Irby RN [...] EDT Telemedicine [facility] Rheumatology [address] [place], [place] [address] Venecia Vega MD [address] [facility] [address] [place] [address] documented as of this encounter Visit Diagnoses Not on filedocumented in this encounter Care Teams Cyber Workforce Developer And Manager Relationship Specialty Start Date End Date Serafin Saucedo MD [address] [place] [phone] PCP - General 02/13/19 04/25/20 documented as of this encounter
--- OUTSIDE RECORDS SUMMARY | 2024-05-25 12:48 | XMS_ITS | Encounter Summary ---
Author Organization [facility] Address [address] [place] [address] Care Team Providers Care Bingo Caller Name Role Phone Serafin Saucedo MD Primary Care Provider [phone] Reason for Visit * Reason Comments Otalgia Encounter Details Date Type Department Care Team (Late st Contact Info) Description 05/15/2019 13:15 EST Walk-In [facility] [address] [place] [phone] Yolanda Clifford MD [address] [facility] [address] [place] [address] Recurrent acute serous otitis media [...] Instructions * Patient Instructions* Yolanda Clifford MD, - 05/15/2019 13:15 EST 1. Continue to [...] Refills Last Filled Start Date End Date fluticasone propionate (FLONASE) 50 mcg/actuation nasal sprayIndications:R ecurrent acute serous otitis media of both ears Instill 1 Aspers into both nostrils daily. 1 Bottle 2 05/15/2019 amoxicillin (AMOXIL) 875 mg tabletIndications: Recurrent acute serous otitis media of both ears Take 1 Tab by mouth 2 times daily for 7 days. 14 Tab 05/15/2019 9 documented in this encounter Progress Notes * Yolanda Clifford MD, MD - 05/15/2019 1315 EST [facility] Express [facility] Chief Complaint(s): Otalgia HPI: Arabella [...] (FLONASE) 50 mcg/actuation nasal spray; Instill 1 Aspers into both nostrilsdaily. Dispense: 1 Bottle; Refill: [...] Contact Info) Description 09/21/2024 8:15 EDT Telemedicine [facility] Rheumatology [address] [place] [phone] Venecia Vega MD [address] [place] [address]-[address] [place] [phone] documented as of this encounter Visit Diagnoses Diagnosis Recurrent acute serous otitis media of both ears- Primary Acute serous otitis media documented in this encounter Historical Medications * This list may reflect changes made after this encounter. omeprazole (PRILOSEC) 20 mg capsule 04/12/2019 11/28/2019 ibuprofen (MOTRIN) 200 mg tabletIndications :pain Take 200 mg by mouth every 6 hours as needed. 09/07/2019 added in this encounter Care Teams Bingo Caller Relationship Specialty Start Date End Date Serafin Saucedo MD [address] [place] [phone] PCP - General 02/13/19 04/25/20 documented as of this encounter
--- OUTSIDE RECORDS SUMMARY | 2024-05-25 12:48 | XMS_ITS | Encounter Summary ---
Author Organization [facility] Address [address] [place] [address] Care Team Providers Care Health Evaluator Name Role Phone None, Provider Primary Care Provider Serafin Zapata MD Primary Care Provider [phone] Encounter Details Date Type Department Care Team (Late st Contact Info) Description 04/14/2018 Historical Results Only [facility] Radiology Results [address] [place], [place] [phone] Nancy Wyatt ND [address] [phone] Social History Tobacco Use Types Packs/Day Years [...] [facility] Rheumatology [address] [place], [place] [phone] Venecia Vega MD [address] [facility] [address] [place] [phone] documented as of this encounter [...] CC: ? Transcribed Date/Time: 04/14/2018 (1642) ? Disability Aide: ? Printed Date/Time: 12/24/2018 (0750) ? PAGE [...] Suman Montesinos MD CC: Transcribed Date/Time: 04/14/2018 (1642) Disability Aide: Printed Date/Time: 12/24/2018 (0750) PAGE 1 Signed Report Nancy Wyatt ND IM DIAGNOSTIC IMAGING ORDERABLE S Final Result documented in this encounter Visit Diagnoses Not on filedocumented in this encounter Care Teams Health Evaluator Relationship Specialty Start Date End Date None, Provider PCP - General 04/02/15 02/12/19 Serafin Saucedo MD [address] [place] [phone] PCP - General 02/13/19 04/25/20 documented as of this encounter
--- OUTSIDE RECORDS SUMMARY | 2024-05-25 12:48 | XMS_ITS | Encounter Summary ---
Author Organization [facility] Address [address] [place] [address] Care Team Providers Care Customer Experience Associate Name Role Phone Serafin Saucedo MD Primary Care Provider [phone] Encounter Details Date Type Department Care Team (Latest Contact Info) Description 09/07/2019 Orders Only [facility] - [facility] Rheumatology [address] [place], [place] [phone] Germaine Irby RN Seronegative spondyloarthropathy ([facility]) (Primary Dx) Social History Tobacco [...] End Date sulfaSALAzine (AZULFIDINE) 500 mg EC tabletIndications:Serone gative spondyloarthropathy Take 1 Tab by mouth 2 times daily. 180 Tab 1 09/07/2019 0 documented in this encounter Progress Notes * Germaine Irby, RN - 09/07/2019 0925 EST Received faxed from [place] for request for 90 day Rx supply of Sulfasalazine.Rx sent for 90 supply. documented in this encounter Plan of Treatment Upcoming Encounters Date Type Department Care Team (Late st Contact Info) Description 09/21/2024 8:15 EDT Telemedicine [facility] Rheumatology [address] [place] [address] Venecia Vega MD [address] [facility] [address] [place] [phone] documented as of this encounter Visit Diagnoses Diagnosis Seronegative spondyloarthropathy- Primary Spondylosis of unspecified site without mention of myelopathy documented in this encounter Discontinued Medications Medication Sig Discontinue Reason Start Date End Da te sulfaSALAzine (AZULFIDINE) 500 mg EC tabletIndications:Seronegativ e spondyloarthropathy Take 1 Tab by mouth 2 times daily. Reorder 07/07/2019 09/07/2019 documented as of this encounter Care Teams Customer Experience Associate Relationship Specialty Start Date End Date Serafin Saucedo MD [address] [place] [phone] PCP - General 02/13/19 04/25/20 documented as of this encounter
--- OUTSIDE RECORDS SUMMARY | 2024-05-25 12:48 | XMS_ITS | Encounter Summary ---
Author Organization [facility] Address [address] [place] [address] Care Team Providers Care Cooperative Extension Agent Name Role Phone None, Provider Primary Care Provider Unavailabl e Encounter Details Date Type Department Care Team (Latest Contact Info) Description 09/30/2018 14:15 EDT - 09/30/2018 23:59 EDT Hospital Encounter [address] [address] Unknown, Provider, Discharge Disposition: Home or Self Care Social History Tobacco Use Types Packs/Day Years Used Date Smoking Tobacco: Never Assessed Comments Unknown Sex and Gender Information Value Date Recorded Sex Assigned at Not on file Legal Sex Female 17:38 EST Gender Identity Female 07/04/2019 11:12 EST Sexual Orientation Not on file documented as of this encounter Medications at Time of Discharge naproxen (NAPROSYN) 500 mg tablet Take 1 Tab by mouth 2 times daily as needed. for arthritis 05/10/2014 0 documented as of this encounter Discharge Disposition Disposition Code Departure Means Destination Home or Self Alf documented in this encounter Plan of Treatment Upcoming Encounters Date Type Department Care Team (Late st Contact Info) Description 09/21/2024 8:15 EDT Telemedicine [facility] Rheumatology [address] [place], [place] [phone] Venecia Vega MD [address] [facility] [address] [place] [phone] documented as of this encounter Visit Diagnoses Not on filedocumented in this encounter Care Teams Cooperative Extension Agent Relationship Specialty Start Date End Date None, Provider PCP - General 04/02/15 02/12/19 documented as of this encounter
--- OUTSIDE RECORDS SUMMARY | 2024-05-25 12:48 | XMS_ITS | Encounter Summary ---
Author Organization [facility] Address [address] [place] [address] Care Team Providers Care Bank Vault Attendant Name Role Phone Serafin Saucedo MD Primary Care Provider [phone] Encounter Details Date Type Department Care Team (Latest Contact Info) Description 10/16/2019 Orders Only [facility] - [facility] Rheumatology [address] [place] [address] Germaine Irby RN Seronegative spondyloarthropathy ([facility]) (Primary Dx) Social History Tobacco Use Types [...] in the PM 450 Tab 1 10/16/2019 0 documented in this encounter Progress Notes * Germaine Irby, RN - 10/16/2019 1551 EDT Received insuarance fax requesting 90 day supply of Sulfasalazine.refill sent for 90 days. documented in this encounter Plan of Treatment Upcoming Encounters Date Type Department Care Team (Late st Contact Info) Description 09/21/2024 8:15 EDT Telemedicine [facility] Rheumatology [address] [place], [place] [address] Venecia Vega MD [address] [facility] [address] [place] [phone] documented as of this encounter Visit Diagnoses Diagnosis Seronegative spondyloarthropathy- Primary Spondylosis of unspecified site without mention of myelopathy documented in this encounter Discontinued Medications Medication Sig Discontinue Reason Start Date End Da te sulfaSALAzine (AZULFIDINE) 500 mg EC tabletIndications:Seronegative spondyloarthropathy Take 3 tabs in the AM and 2 tabs in the PM Reorder 10/13/2019 10/16/2019 documented as of this encounter Care Teams Bank Vault Attendant Relationship Specialty Start Date End Date Serafin Saucedo MD [address] [place] [phone] PCP - General 02/13/19 04/25/20 documented as of this encounter
--- OUTSIDE RECORDS SUMMARY | 2024-05-25 12:48 | XMS_ITS | Encounter Summary ---
Author Organization [facility] Address [address] [place] [address] Care Team Providers Care Meeting Planner Name Role Phone Serafin Saucedo MD Primary Care Provider [phone] Reason for Visit * Reason Comments Ear Infection (Otitis Media) left ear in fections started in the spring was treated 3x in a row. still having popping and pain feels like it has to pop. started with allergies. * Consult (Routine) - Closed Specialty Diagnoses / Procedures Referred By Nishant garcia Referred To Contact Otolaryngology Diagnoses Ear pain Chun Stauffer MD Phone: tel: fax: [address] [address] Phone: tel: fax: Referral ID Status Reason Start Date Expiration Date Visits Re quested Visits Authorized [id number] Closed 1 1 Encounter Details Date Type Department Care Team (Late st Contact Info) Description 02/14/2019 9:50 EDT Office Visit [address] [phone] [place] Buenrostro MD [address] [place] [address] [address] [place] [address] Conductive hearing loss, bilateral (Primary [...] Reading Time Taken Comments Blood Pressure 122/78 02/14/2019 0958 EDT Pulse 101 02/14/2019 0958 EDT Temperature - - Respiratory Rate - - Oxygen Saturation - - Inhaled Oxygen Concentration - - Weight 113.4 kg (250 lb) 02/14/2019 0958 EDT Height 167.6 cm (5' 6) 02/14/2019 09 EDT Body Mass Index 40.35 02/14/2019957 EDT [...] 09/21/2024 8:15 EDT Telemedicine [facility] Rheumatology [address] [place] [address] Venecia Vega MD [address] [place] [address] [address] [place] [phone] documented as of this encounter Procedures Procedure Name Priority Date/Time Associated Diagnosis Comments PROCEDURE REPORTS - SCANNED 02/15/2019 15:35 EDT documented in this encounter Results * PROCEDURE REPORTS - SCANNED (02/15/2019 15:35 EDT) 02/15/2019 15:3 5 EDT us Scan 2 Research Investigator PROCEDURE/MINOR SURGICAL OR DERABLES Final Result documented in this encounter Visit Diagnoses Diagnosis Conductive hearing loss, bilateral- Primary documented in this encounter Historical Medications * This list may reflect changes made after this encounter. UNABLE TO FIND curaphem 11/10/2019 loratadine (CLARITIN) 10 mg tablet Take 10 mg by mouth if needed. 02/06/2021 added in this encounter Care Teams Meeting Planner Relationship Specialty Start Date End Date Serafin Saucedo MD [address] [place] [phone] PCP - General 02/13/19 04/25/20 documented as of this encounter
--- OUTSIDE RECORDS SUMMARY | 2024-05-25 12:48 | XMS_ITS | Encounter Summary ---
Author Organization [facility] Address [address] [place] [address] Care Team Providers Care Heat And Frost Insulator Helper Name Role Phone None, Provider Primary Care Provider Serafin Zapata MD Primary Care Provider [phone] Encounter Details Date Type Department Care Team (Late st Contact Info) Description 10/04/2018 Historical Results [address] [facility] - Main [place] [address] [place] [address] Mary Braswell MD [address] [place] [address], [address] [place] [address] Social History Tobacco Use Types [...] Contact Info) Description 09/21/2024 8:[address] [facility] Rheumatology [address] [place] [address] Venecia Vega MD [address] [place], [place] [address] [address] [place] [phone] documented as of this encounter Procedures Procedure Name Priority Date/Time Associated Diagnosis Comments URINE CHEMICAL (DIP) & SEDIMENT (MICRO) WITHOUT REFLEX TO CULTURE Routine 10/04/2018 15:38 EDT BACTERIAL CULTURE, URINE Routine 10/04/2018 15:38 EDT HPV DNA DETECTION WITH GENOTYPING, PCR Routine 10/04/2018 9:49 EDT PAP TEST Routine 10/04/2018 documented in this encounter Results * BACTERIAL CULTURE, URINE (10/04/2018 15:38 EDT) Pathologist [facility] USUAL UROGENITAL BIENVENIDO - [facility] 10/06/2018 11:10 EDT [facility] CitrateConcentration <10,000 CFU/ML 10/2018 11:10 [facility] 10/04/2018 15:3 8 EDT 10/04/2018 17:53 EDT Comment:VOID Mary Braswell MD MICROBIOLOGY - GENERAL ORDERABL ES Final Result [facility] * UA, CHEMICAL AND SEDIMENT ANALYSIS (DIPSTICK AND MICROSCOPIC) (10/04/2018 15:38 EDT) Pathologist [facility] URINE APPEARANCE - [facility] Clear CLEAR 10/04/2018 18:10 [facility] BILIR[facility]IN - [facility] - [facility] Negative NEGATIVE 10/04/2018 18:10 [facility] URINE BLOOD - [facility] Negative NEG 10/04/2018 18:10 [facility] URINE COLOR - [facility] Yellow YELLOW 10/04/2018 18:10 [facility] URINE GLUCOSE - [facility] - [facility] Negative NEGATIVE 10/04/2018 18:10 [facility] URINE KETONE - [facility] Negative NEGATIVE 10/04/2018 18:10 [facility] URINE LEUK ESTERASE - [facility] Negative NEG 10/04/2018 18:10 [facility] URINE NITRITE - [facility] - [facility] Negative NEG 10/04/2018 18:10 [facility] URINE PH - [facility] 6.5 4.0 - 8.0 9 18:10 EDT [facility] URINE PROTEIN - [facility] - [facility] Negative NEG 10/04/2018 18:10 EDT [facility] URINE SPECIFIC GRAVITY - [facility] 1.010 1.001 - 1.035 10/04/2018 18:10 EDT [facility] URINE UROBILINOGEN - [facility] - [facility] 0.2 0.2 - 1.0 10/04/2018 18:10 EDT [facility] 10/04/2018 15:3 8 EDT 10/04/2018 17:53 EDT Mary Braswell MD URINALYSIS ORDERABLES Final Res ult Performing Organization Address [facility]/ZIP Co de Phone Number [facility] * HUMAN PAPILLOMAVIRUS (HPV) DETECTION-HIGH RISK TYPES (10/04/2018 9:49 EDT) HPV other High Risk types, PCR NEG 10/07/2018 15:20 EDT [facility] Comment: Negative for HPV types 16, 18, 31, 33, 35, 39, 45, 51, 52, 56, 58, 59, 66, 68. Method: Cervista HPV HR (High Risk) DNA test. 10/04/2018 9:49 EDT 10/05/2018 9:49 EDT Mary Braswell MD MICROBIOLOGY - GENERAL ORDERABL ES Final Result [facility] * PAP TEST (10/04/2018) 10/04/2018 10/05/2018 9:4 9 EDT Narrative [facility] - 10/10/2018 8:13 EDT ----- ------- Name: DARCI,RENEE Clinton ? : 81 ?Age/Sex: 33/F ?Unit#: [id number] ? Loc: AGO ? Status: REG POV ?? Reg Date: 10/04/18 ? Pt.Phone Number: ? ----- ------- Specimen: [id number] ?STATUS: SOUT ?Spec Date:10/04/18 ? Physician Copies: ?Mary Braswell MD ? Tissues: ? Cervical/Endo Pap ?Serafin Saucedo MD CPT: 63901 ?? Units: ??1 ----- ------- ? CYTOLOGY [...] 56, 58, 59, 66, 68. ? Method: Effieista HPV HR (High Risk) DNA test. ----- [...] confirmed the above diagnosis. Test Performed by [facility], [address] [place] [phone] Principal Technical Writer: Rhona Brown MD PHD ----- ------- us Mary Braswell MD PATHOLOGY ORDERABLES Final Resu lt [facility] documented in this encounter Visit Diagnoses Not on filedocumented in this encounter Care Teams Heat And Frost Insulator Helper Relationship Specialty Start Date End Date None, Provider PCP - General 04/02/15 02/12/19 Serafin Saucedo MD [address] [place] [phone] PCP - General 02/13/19 04/25/20 documented as of this encounter
--- OUTSIDE RECORDS SUMMARY | 2024-05-25 12:48 | XMS_ITS | Encounter Summary ---
Author Organization [facility] Address [address] [place] [address] Care Team Providers Care Aircraft Quality Control Inspector Name Role Phone None, Provider Primary Care Provider Serafin Zapata MD Primary Care Provider [phone] Encounter Details Date Type Department Care Team (Late st Contact Info) Description 09/20/2018 Historical Results Only [facility] - Main [place] [address] [place] [address] Nancy Wyatt, ADRIANO [address] [place] [phone] Social History Tobacco Use Types Packs/Day [...] Contact Info) Description 09/21/2024 8:15 EDT Telemedicine [facility] Rheumatology [address] [place], [place] [address] Venecia Vega MD [address] [place] [address] [place] [phone] documented as of this encounter Procedures Procedure Name Priority Date/Time Associated Diagnosis Comments VIT D, 25-HYDROXY - [facility] Routine 09/20/2018 9:04 EDT COMPLETE BLOOD COUNT [...] Triglyceride 117 <150 mg/dL 09/20/2018 14:09 EDT [facility] Comment: Adult: Normal: ?<150 mg/dl ? Borderline High: 150-199 mg/dl ? High: ?200-499 mg/dl ? Very High: >[id number] Cholesterol 205(H) <200 mg/dL 09/20/2018 10:01 EDT [facility] Comment: Acceptable: ??<200 Borderline: ??200-239 High: ?> or = 240 Chol/HDL Ratio 4.1 0 - 4.5 09/20/2018 10:01 EDT [facility] Comment: DESIRABLE RATIO IS LESS THAN 4.1 PATIENTS ARE CONSIDERED AT RISK: WOMEN RATIO >5 MEN RATIO >6 FASTING? - [facility] Unknown 9 9:05 EDT [facility] HDL 50 40 - 60 mg/dL 09/20/2018 10:01 [facility] Comment: ?? Reference Range Low: ? < 40 ??mg/dL Normal: ??40-60 mg/dL High: ?>= 60 mg/dL LDL CHOLESTEROL - [facility] 132(H) 60 - 100 mg/dL 09/20/2018 14:09 EDT [facility] Non HDL Cholesterol 155 mg/dl 09/20/2018 10:01 [facility] Comment: Desirable: ?Less than 130 Borderline High: ??130-159 High: ? 160-189 Very High: ?Greater than or equal to 190 09/20/2018 9:04 EDT 09/20/2018 9:04 EDT Narrative [facility] - 09/20/2018 14:09 EDT Does PT Have a Latex Allergy? NO Nancy Wyatt ND CHEMISTRY & BLOOD GAS ORDERABLES Final Result [facility] * LIPASE (09/20/2018 9:04 EDT) Lipase 81 <251 U/L 09/20/2018 10:01 EDT [facility] 09/20/2018 9:04 EDT 09/20/2018 9:04 EDT Narrative [facility] - 09/20/2018 14:09 EDT Does PT Have a Latex Allergy? NO Nancy Wyatt ND CHEMISTRY & BLOOD GAS ORDERABLES Final Result [facility] * (ABNORMAL) C REACTIVE PROTEIN (09/20/2018 9:04 EDT) [facility] C-Reactive Protein 17.6(H) <10.0 mg/L 09/20/2018 10:01 [facility] 09/20/2018 9:04 EDT 09/20/2018 9:04 EDT Narrative [facility] - 09/20/2018 14:09 EDT Does PT Have a Latex Allergy? NO us Nancy Wyatt ND CHEMISTRY & BLOOD GAS ORDERABLES Final Result [facility] * (ABNORMAL) COMPREHENSIVE METABOLIC PANEL (CMP) (09/20/2018 9:04 EDT) [facility] Albumin % 4.3 3.4 - 4.9 g/dL 09/20/2018 10:01 [facility] ALKALINE PHOSPHATASE - [facility] 88 38 - 126 U/L 09/20/2018 10:01 [facility] BILIRUBIN TOTAL 0.8 0.2 - 1.3 mg/dL 09/20/2018 10:01 [facility] BUN - [facility] 10 10 - 26 mg/dL 09/20/2018 10:01 [facility] CALCIUM - [facility] 9.4 8.5 - 10.5 mg/dL 09/20/2018 10:01 [facility] Chloride 103 96 - 110 mmol/L 09/20/2018 10:01 [facility] CO2 Total 21(L) 22 - 32 mEq/L 09/20/2018 10:01 [facility] CREATININE 0.71 0.52 - 1.04 mg/dL 09/20/2018 10:01 [facility] eGFR >60 09/20/2018 10:01 [facility] Comment: Chronic renal impairment is defined as GFR <60 Multiply result by 1.210 for patients. eGFR calculated using the IDMS-traceable MDRD Study Equation. ??(effective 05/07/2014) Anion Gap 14 0 - 18 09/20/2018 10:01 [facility] GLUCOSE - [facility] 86 70 - 100 mg/dL 09/20/2018 10:01 [facility] Potassium 4.4 3.5 - 5.0 mEq/L 09/20/2018 10:01 [facility] Sodium 138 136 - 145 mEq/L 09/20/2018 10:01 [facility] TOTAL PROTEIN - [facility] 7.9 6.2 - 8.2 gm/dL 09/20/2018 10:01 [facility] SGOT/AST - [facility] 28 14 - 36 U/L 09/20/2018 10:01 [facility] SGPT/ALT - [facility] 26 9 - 52 U/L 9 10:01 [facility] 09/20/2018 9:04 EDT 09/20/2018 9:04 EDT [facility] - 09/20/2018 14:09 EDT Does PT Have a Latex Allergy? NO Nancy Wyatt ND CHEMISTRY & BLOOD GAS ORDERABLES Final Result [facility] * AMYLASE (09/20/2018 9:04 EDT) Amylase 64 30 - 110 U/L 09/20/2018 10:01 EDT [facility] 09/20/2018 9:04 EDT 09/20/2018 9:04 EDT [facility] - 09/20/2018 14:09 EDT Does PT Have a Latex Allergy? NO Nancy Wyatt ND CHEMISTRY & BLOOD GAS ORDERABLES Final Result [facility] * VIT D, 25-HYDROXY - [facility] (09/20/2018 9:04 EDT) VIT D, 25 HYDROXY - [facility] 34.6 30 - 100 ng/ml 09/20/2018 11:00 EDT [facility] Comment: ? 25-Hydroxy D Total (D2+D3) ?Expected Values Deficient: ?<20 ng/ml Insufficient: ? 20- <30 ng/ml Sufficient: ? 30-100 ng/ml Potential intoxication: >100 ng/ml 09/20/2018 9:04 EDT 09/20/2018 9:04 EDT [facility] - 09/20/2018 11:00 EDT Does PT Have a Latex Allergy? NO [facility]Y & BLOOD GAS ORDERABLES Final Result Performing Organization Address [facility]/ZIP Co de Phone Number [facility] * TSH (09/20/2018 9:04 EDT) [facility] THYROID STIM HORMONE [facility] 1.26 0.46 - 4.68 uIU/ml 09/20/2018 11:00 EDT [facility] Comment: The results of this assay can be falsely lowered due to the consumption of Biotin. 09/20/2018 9:04 EDT 09/20/2018 9:04 EDT [facility] - 09/20/2018 11:00 EDT Does PT Have a Latex Allergy? NO [facility] CHEMISTRY & BLOOD GAS ORDERABLES Final Result Performing Organization Address [facility]/ZIP Co de Phone Number [facility] * T4 FREE (09/20/2018 9:04 EDT) [facility] FREE T4 [facility] 1.39 0.78 - 2.19 ng/dl 09/20/2018 11:00 EDT [facility] 09/20/2018 9:04 EDT 09/20/2018 9:04 EDT [facility] - 09/20/2018 11:00 EDT Does PT Have a Latex Allergy? NO Nancy Wyatt [place] CHEMISTRY & BLOOD GAS ORDERABLES Final Result Performing Organization Address [facility]/ZIP Co de Phone Number [facility] * FOLATE (09/20/2018 9:04 EDT) Pathologist [facility] FOLIC ACID - [facility] 19.70 2.76- >20.0 ng/mL 09/20/2018 11:00 EDT [facility] Comment: The results of this assay can be falsely elevated due to the consumption of Biotin. 09/20/2018 9:04 EDT 09/20/2018 9:04 EDT [facility] - 09/20/2018 11:00 EDT Does PT Have a Latex Allergy? NO [facility] CHEMISTRY & BLOOD GAS ORDERABLES Final Result Performing Organization Address [facility] de Phone Number [facility] * VITAMIN B12 (09/20/2018 9:04 EDT) Pathologist [facility] VITAMIN B12 - [facility] 352 239 - 931 pg/mL 09/20/2018 11:00 EDT [facility] Comment: The results of this assay can be falsely elevated due to the consumption of Biotin. 09/20/2018 9:04 EDT 09/20/2018 9:04 EDT [facility] - 09/20/2018 11:00 EDT Does PT Have a Latex Allergy? NO [facility] CHEMISTRY & BLOOD GAS ORDERABLES Final Result [facility] * HEMOGLOBIN A1C (09/20/2018 9:04 EDT) [facility] Hemoglobin A1c 5.7 4.0 - 6.0 % 09/20/2018 12:54 EDT [facility] Comment: > or =18 years: ??Increased [...] Est Avg Glucose 117 mg/dL 9 12:54 EDT [facility] 09/20/2018 9:04 EDT 09/20/2018 9:04 EDT Narrative [facility] - 09/20/2018 12:54 EDT Does PT Have a Latex Allergy? NO us Nancy Wyatt ND CHEMISTRY & BLOOD GAS ORDERABLES Final Result [facility] * (ABNORMAL) COMPLETE BLOOD COUNT WITH DIFFERENTIAL (AUTO) (09/20/2018 9:04 EDT) ABSOLUTE NEUTROPHIL COUN - [facility] 6.1 2.2 - 8.85 10e3/uL 09/20/2018 9:33 [facility] BASO # - [facility] 0.04 0.01 - 0.11 10e/uL 09/20/2018 9:33 [facility] BASO % - [facility] 0 0 - 2 % 09/20/2018 9:33 [facility] EOS # - [facility] 0.22 0.03 - 0.61 10e3/ul 09/20/2018 9:33 [facility] EOS % - [facility] 2 0 - 5 % 09/20/2018 9:33 [facility] GRAN % - [facility] 58.1 40 - 80 % 09/20/2018 9:33 [facility] HEMATOCRIT - [facility] 43.3 34.9 - 44.4 % 09/20/2018 9:33 [facility] HEMOGLOBIN - [facility] 13.9 11.6 - 15.2 g/dl 09/20/2018 9:33 [facility] IG# - [facility] 0.03 0 - 0.7 10e3/uL 09/20/2018 9:33 [facility] IG% - [facility] 0.3 0 - 0.9 % 09/20/2018 9:33 [facility] LYMPH # - [facility] 3.4(H) 1.09 - 3.3 10e3/ul 09/20/2018 9:33 [facility] LYMPH% - [facility] 32.6 20 - 40 % 09/20/2018 9:33 [facility] MEAN CORPUSCULAR HGB - [facility] 27.4 26.7 - 33.3 pg 09/20/2018 9:33 [facility] MEAN CORPUSCULAR HGB CONC - [facility] 32.1 32.1 - 35.9 g/dL 09/20/2018 9:33 [facility] MEAN CELL VOLUME - [facility] 85.4 81 - 98 fl 09/20/2018 9:33 [facility] MONO # - [facility] 0.7 0.1 - 0.8 10e3/uL 09/20/2018 9:33 [facility] MONO% - [facility] 6.5 0 - 12 % 09/20/2018 9:33 [facility] PLATELET COUNT 496(H) 141 - 377 10e3/ul 09/20/2018 9:33 [facility] RED BLOOD COUNT - [facility] 5.07(H) 3.86 - 5.04 10e3/ul 09/20/2018 9:33 [facility] RED CELL DISTRI WIDTH - [facility] 14.4 <14.7 % 09/20/2018 9:33 [facility] WHITE BLOOD COUNT - [facility] 10.5 4.0 - 12.4 10e3/ul 09/20/2018 9:33 [facility] 09/20/2018 9:04 EDT 09/20/2018 9:04 [facility] - 09/20/2018 9:33 EDT Does PT Have a Latex Allergy? NO us Nancy Wyatt ND HEMATOLOGY & PF4 ORDERABLES Leia l Result [facility] * THYROPEROXIDASE ANTIBODY (09/20/2018 9:04 EDT) Thyroperoxidase Ab <28 <61 U/mL 2018 16:20 EDT [facility] Comment: Test performed or referred by The [address] [address] 09/20/2018 9:04 EDT 09/20/2018 9:04 EDT Narrative [facility] - 09/21/2018 16:20 EDT Does PT Have a Latex Allergy? NO us Nancy Wyatt ND CHEMISTRY & BLOOD GAS ORDERABLES Final Result Performing Organization Address City/[facility]/ZIP Co de Phone Number [facility] documented in this encounter Visit Diagnoses Not on filedocumented in this encounter Care Teams Aircraft Quality Control Inspector Relationship Specialty Start Date End Date None, Provider PCP - General 04/02/15 02/12/19 Serafin Saucedo MD [address] [place] [phone] PCP - General 02/13/19 04/25/20 documented as of this encounter
--- OUTSIDE RECORDS SUMMARY | 2024-05-25 12:48 | XMS_ITS | Encounter Summary ---
Author Organization [facility] Address [address] [place] [address] Care Team Providers Care Secondary Education Professor Name Role Phone Serafin Saucedo MD Primary Care Provider [phone] Reason for Visit * Reason Onset Date Comments Influenza 08/10/2019 Encounter Details Date Type Department Care Team (Late st Contact Info) Description 08/10/2019 Telephone [facility] Adult Primary Care - [place] [address] [place], [place] [phone] Serafin Saucedo MD [address] [place] [phone] Influenza Social History Tobacco Use [...] Refills Last Filled Start Date End Date oseltamivir (TAMIFLU) 75 mg capsule Take 1 Cap by mouth 2 times daily. 10 Cap 08/10/2019 09/07/2019 documented in this encounter Miscellaneous Notes * Telephone Encounter - Lucía Moreno RN - 08/10/2019 2507 EST Spoke with Edgard. She is feeling [...] EDT Telemedicine [facility] Rheumatology [address] [place] [phone] Venecia Vega MD [address] [facility] [place] [phone] documented as of this encounter Visit Diagnoses Not on filedocumented in this encounter Care Teams Secondary Education Professor Relationship Specialty Start Date End Date Serafin Saucedo MD [address] [place] [phone] PCP - General 02/13/19 04/25/20 documented as of this encounter
--- OUTSIDE RECORDS SUMMARY | 2024-05-25 12:48 | XMS_ITS | Encounter Summary ---
Author Organization [facility] Address [address] [place] [address] Care Team Providers Care Stage Driver Name Role Phone Serafin Saucedo MD Primary Care Provider [phone] Reason for Visit * Reason Onset Date Comments Labs Only 10/02/2019 Encounter Details Date Type Department Care Team (Late st Contact Info) Description 10/02/2019 Telephone [facility] Rheumatology [address] [place], [place] [phone] Venecia Vega MD [address] [facility] [address] [place] [phone] Labs Only Social History Tobacco Use Types [...] Contact Info) Description 09/21/2024 8:15 EDT Telemedicine [facility] Rheumatology [address] [place], [place] [phone] Venecia Vega MD [address] [facility] [place] [phone] documented as of this encounter Visit Diagnoses Diagnosis Spondyloarthropathy- Primary Spondylosis of unspecified site 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
--- OUTSIDE RECORDS SUMMARY | 2024-05-25 12:48 | XMS_ITS | Encounter Summary ---
Author Organization [facility] Address [address] [place] [address] Care Team Providers Care Hot Car Charger Name Role Phone None, Provider Primary Care Provider Serafin Zapata MD Primary Care Provider [phone] Encounter Details Date Type Department Care Team (Late st Contact Info) Description 09/20/2018 Historical Results Only [facility] Lab - Main [place] [address] [place] [address] Nancy Wyatt, ADRIANO [address] [place] [phone] Social History Tobacco Use Types Packs/Day [...] Telemedicine [facility] Rheumatology [address] [place], [place] [phone] Venecia Vega MD [address] [place] [address] [place] [phone] documented as of this encounter Procedures Procedure Name Priority Date/Time Associated Diagnosis Comments T3 FREE Routine 09/20/2018 9:04 EDT documented in this encounter Results * (ABNORMAL) T3 FREE (09/20/2018 9:04 EDT) T3,FREE - [facility] 4.8(A) 2.8 - 4.4 pg/mL 09/21/2018 16:20 EDT [facility] Comment: Test Performed by: [facility] [address] [facility], [place] [address] 09/20/2018 9:04 EDT 09/20/2018 9:04 EDT Narrative [facility] - 09/21/2018 16:20 EDT Does PT Have a Latex Allergy? NO us Nancy Wyatt ND CHEMISTRY & BLOOD GAS ORDERABLES Final Result [facility] documented in this encounter Visit Diagnoses Not on filedocumented in this encounter Care Teams Hot Car Charger Relationship Specialty Start Date End Date None, Provider PCP - General 04/02/15 02/12/19 Serafin Saucedo MD [address] [place] [phone] PCP - General 02/13/19 04/25/20 documented as of this encounter
--- OUTSIDE RECORDS SUMMARY | 2024-05-25 12:48 | XMS_ITS | Encounter Summary ---
Author Organization [facility] Address [address] [place] [address] Care Team Providers Care Agent Contract Clerk Name Role Phone Serafin Saucedo MD Primary Care Provider [phone] Reason for Visit * Reason Onset Date Comments Medication Problem 05/19/2019 Patient calll ed - medication not helping Encounter Details Date Type Department Care Team (Late st Contact Info) Description 05/19/2019 Telephone [facility] [address] [phone] Yolanda Clifford MD [address] [facility] [address] [place] [address] Medication Problem (Patient callled - [...] of this encounter Ordered Prescriptions Prescription Sig Dispense Quantity Refills Last Filled Start Date End Date amoxicillin-clavula bree (AUGMENTIN) 875-125 mg per tablet Take 1 Tab by mouth 2 times daily for 7 days. 14 Tab 05/20/2019 05/27/2019 documented in this encounter Miscellaneous Notes * Telephone Encounter - Jessy Templeton - 05/20/2019 7780 EST Spoke to pt - she confirmed [...] Contact Info) Description 09/21/2024 8:15 EDT Telemedicine [facility] Rheumatology [address] [place] [phone] Venecia Vega MD [address] [place] [address] [address] [place] [phone] documented as of this encounter Visit Diagnoses Not on filedocumented in this encounter Discontinued Medications Medication Sig Discontinue Reason Start Date End Da te amoxicillin (AMOXIL) 875 mg tabletIndications:Recurre nt acute serous otitis media of both ears Take 1 Tab by mouth 2 times daily for 7 days. Alternate therapy 05/15/2019 05/20/2019 documented as of this encounter Care Teams Agent Contract Clerk Relationship Specialty Start Date End Date Serafin Saucedo MD [address] [place] [phone] PCP - General 02/13/19 04/25/20 documented as of this encounter
--- OUTSIDE RECORDS SUMMARY | 2024-05-25 12:48 | XMS_ITS | Encounter Summary ---
Author Organization [facility] Address [address] [place] [address] Care Team Providers Care Journal Clerk Name Role Phone Serafin Saucedo MD Primary Care Provider [phone] Reason for Visit * Reason Onset Date Comments Update 07/12/2019 Encounter Details Date Type Department Care Team (Late st Contact Info) Description 07/12/2019 Telephone [facility] Rheumatology [address] [place] [address] Venecia Vega MD [address] [facility] [address] [place] [phone] Update Social History Tobacco Use Types Packs/Day [...] 1628 EST Forwarding you this question from Arabella. * Telephone Encounter - Cortney Olmedo - 07/12/2019 1617 EST Son tested positive for type B flu Dr. Vega told her if she is around anyone exposed should start tamillu. Does she get this through Dr. Vega documented in this encounter Plan of Treatment Upcoming Encounters Date Type Department Care Team (Late st Contact Info) Description 09/21/2024 8:15 EDT Telemedicine [facility] - [facility] Rheumatology [address] [place] [address] Venecia Vega MD [address] [facility] [address] [place] [phone] documented as of this encounter Visit Diagnoses Not on filedocumented in this encounter Care Teams Journal Clerk Relationship Specialty Start Date End Date Serafin Saucedo MD [address] [place] [phone] PCP - General 02/13/19 04/25/20 documented as of this encounter
--- OUTSIDE RECORDS SUMMARY | 2024-05-25 12:48 | XMS_ITS | Encounter Summary ---
Author Organization [facility] Address [address] [place] [address] Care Team Providers Care Supervisor [employer] Name Role Phone Serafin Saucedo MD Primary Care Provider [phone] Reason for Visit * Reason Comments Follow-up Arthritis. Patient c /o very mild pain in left knee today. Encounter Details Date Type Department Care Team (Latest Contact Info) Description 07/07/2019 14:15 EST Office Visit [facility] Rheumatology [address] [place], [place] [phone] Venecia Vega MD [address] [facility] [address] [place] [phone] Seronegative spondyloarthropathy ([facility]) (Primary Dx); High risk medication use Social [...] EST documented in this encounter Functional Status * [...] 2 times daily. 60 Tab 3 07/07/2019 09/07/19 20 naproxen (NAPROSYN) 500 mg tabletIndications:Serone gative spondyloarthropathy Take 1 Tab by mouth 2 times daily as needed for Pain. 60 Tab 3 07/07/2019 09/19/19 22 documented in this encounter Progress Notes [...] infectious disease was consulted. Infectious disease at [facility] declined to evaluate the patient stating her labs were negative. Then patient sought evaluation in [facility] naturopathic clinic with Dr Wyatt in [...] from 02/19 to 06/22 Dr Wyatt at [employer]. ??? Obesity (BMI 30-39.9) ??? Otitis media, [...] ??? CAN SPEC DESCRIPTI* 12/04/2018 Ear ??? 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 I last saw her in February 2018. At that time she sought naturopathic evaluation for an equivocal Lyme test. Her research quality assurance specialist performed further testing. The patient wasdiagnosed with [...] Telemedicine [facility] Rheumatology [address] [place] [address] Venecia Vega MD [address] [facility] [address] [place] [phone] documented as of this encounter Visit Diagnoses Diagnosis Seronegative spondyloarthropathy- Primary Spondylosis of unspecified site without mention of myelopathy High risk medication use Encounter for long-term (current) use of other medications documented in this encounter Care Teams Supervisor [employer] Relationship Specialty Start Date End Date Serafin Saucedo MD [address] [place] [phone] PCP - General 02/13/19 04/25/20 documented as of this encounter
--- OUTSIDE RECORDS SUMMARY | 2024-05-25 12:48 | XMS_ITS | Encounter Summary ---
Author Organization [facility] Address [address] [place] [address] Care Team Providers Care Parts Designer Name Role Phone Serafin Saucedo MD Primary Care Provider [phone] Encounter Details Date Type Department Care Team (Late st Contact Info) Description 06/26/2019 Abstract [facility] Adult Primary Care - [address] [id number] Ambulatory, Medical Service Technician Social History Tobacco Use Types Packs/Day Years [...] 8:15 EDT Telemedicine [facility] Rheumatology [address] [place], [place] [address] Venecia Vega MD [address] [facility] [address] [place] [address] documented as of this encounter [...] may reflect changes made after this encounter. GRAPE SEED EXTRACT ORAL Take by mouth daily. as directed 0 omeprazole (PRILOSEC) 20 mg capsule Take 1 Cap by mouth daily as needed. 9 acetaminophen (TYLENOL) 500 mg tablet Take 2 Tabs by mouth every 6 hours as needed. 2 tocopheryl acetate (VITAMIN E) 100 unit capsule Take 2 Caps by mouth daily. 0 Acetylcysteine (NAC) 600 mg capsule Take 1 Cap by mouth 2 times daily. 0 naproxen (NAPROSYN) 500 mg tablet Take 1 Tab by mouth 2 times daily as needed. for arthritis 05/10/2014 0 UNABLE TO FIND Other medication - -, Si cap curaphen orally 2 times a day 9 UNABLE TO FIND Other medication - -, Sig: Burburpinella 20 drops orally 2 times a day 0 added in this encounter Care Teams Parts Designer Relationship Specialty Start Date End Date Serafin Saucedo MD [address] [place] [phone] PCP - General 02/13/19 04/25/20 documented as of this encounter
--- OUTSIDE RECORDS SUMMARY | 2024-05-25 12:48 | XMS_ITS | Encounter Summary ---
Author Organization [facility] Address [address] [place] [address] Care Team Providers Care Frame Expander Name Role Phone Serafin Saucedo MD Primary Care Provider [phone] Reason for Visit * Reason Onset Date Comments Medication Problem 08/10/2019 Encounter Details Date Type Department Care Team (Late st Contact Info) Description 08/10/2019 Telephone [facility] Adult Primary Care - [place] [address] [place], [place] [address] Serafin Saucedo MD [address] [place] [phone] Medication Problem Social History Tobacco Use Types [...] 1108 EST PA approved. Fax'd notice to [facility] * Telephone Encounter - Silvana Pate - 08/10/2019 1520 EST Pt was given tamiflu in July 12, 2019 and will need a Prior Auth if needing to fill prior to 08/12/2019. Please call Yuly at [facility] [phone] documented in this encounter Plan of Treatment Upcoming Encounters Date Type Department Care Team (Late st Contact Info) Description 09/21/2024 8:15 EDT Telemedicine [facility] Rheumatology [address] [place] [address] Venecia Vega MD [address] [place] [address] [place] [address] documented as of this encounter Visit Diagnoses Not on filedocumented in this encounter Care Teams Frame Expander Relationship Specialty Start Date End Date Serafin Saucedo MD [address] [place] [phone] PCP - General 02/13/19 04/25/20 documented as of this encounter
--- OUTSIDE RECORDS SUMMARY | 2024-05-25 12:48 | XMS_ITS | Encounter Summary ---
Author Organization [facility] Address [address] [place] [address] Care Team Providers Care Trust Evaluation Supervisor Name Role Phone None, Provider Primary Care Provider Serafin Zapata MD Primary Care Provider [phone] Encounter Details Date Type Department Care Team (Late st Contact Info) Description 10/14/[address] [facility] Radiology Results [address] [place] [address] Mary Braswell MD [address] [place], [place] [address], [address] [place] [address] Social History Tobacco Use Types [...] Description 09/21/2024 8:[address] [facility] Rheumatology [address] [place] [address] [facility] MD [address] [facility] [address] [place] [address] documented as of this encounter [...] 10/14/2018 9:31 EDT ? EXAM: ULTRASOUND/TRANSVAGINAL - PROTOTYPE CARPENTER W/ DO EX. D/ (0706) ? CLINICAL [...] CC: ? Transcribed Date/Time: 10/14/2018 (0931) ? Machine Tool Operator: [email or web address] ? Printed Date/Time: 12/25/2018 (210) ? PAGE 1 ? Signed Report ? Procedure Note Luis Antonio Griffin MD - 05/11/2019 EXAM: ULTRASOUND/TRANSVAGINAL - PROTOTYPE CARPENTER W/ DO EX. D/ (0706) CLINICAL INFORMATION: [...] Griffin MD CC: Transcribed Date/Time: 10/14/2018 (0931) Machine Tool Operator: Printed Date/Time: 12/25/2018 (2723) PAGE 1 Signed Report us Mary Braswell MD IMG OB ORDERABLES Final Resu lt * US BREAST LIMITED UNILATERAL (10/14/2018 9:08 [...] were communicated to the patient by the balloon pilot ? shortly following the examination . ? These results will be communicated to your patient via a lay letter ? from Radiology. ??If any additional imaging is needed we will contact ? your patient directly. ? REPORT SIGNED IN OTHER VENDOR SYSTEM 10/14/2018 ?Reported By: Luis Antonio Griffin MD ? CC: ? Transcribed Date/Time: 10/14/2018 (0908) ? Machine Tool Operator: ? Printed Date/Time: 12/25/2018 (2101) ? PAGE [...] Griffin MD CC: Transcribed Date/Time: 10/14/2018 (0908) Machine Tool Operator: Printed Date/Time: 12/25/2018 (4145) PAGE 1 Signed Report us Mary Braswell MD [facility] ORDERABLES Final Result * MA BREAST DIAGNOSTIC FLAVIA BILATERAL (10/14/2018 [...] were communicated to the patient by the balloon pilot ? shortly following the examination . ? These results will be communicated to your patient via a lay letter ? from Radiology. ??If any additional imaging is needed we will contact ? your patient directly. ? REPORT SIGNED IN OTHER VENDOR SYSTEM 10/14/2018 ?Reported By: Luis Antonio Griffin MD ? CC: ? Transcribed Date/Time: 10/14/2018 (0908) ? Machine Tool Operator: SCR ? Printed Date/Time: 12/25/2018 (2101) ? PAGE [...] Griffin MD CC: Transcribed Date/Time: 10/14/2018 (0908) Machine Tool Operator: Printed Date/Time: 12/25/2018 (7864) PAGE 1 Signed Report Mary Braswell MD IMG MAMMOGRAPHY ORDERABLES Leia l Result documented in this encounter Visit Diagnoses Not on filedocumented in this encounter Care Teams Trust Evaluation Supervisor Relationship Specialty Start Date End Date None, Provider PCP - General 04/02/15 02/12/19 Serafin Saucedo MD [address] [place] [phone] PCP - General 02/13/19 04/25/20 documented as of this encounter
--- OUTSIDE RECORDS SUMMARY | 2024-05-25 12:48 | XMS_ITS | Encounter Summary ---
Author Organization [facility] Address [address] [place] [address] Care Team Providers Care Informatics Specialist Name Role Phone Serafin Saucedo MD Primary Care Provider [phone] Reason for Visit * Reason Onset Date Comments Medication Management 11/22/2019 Encounter Details Date Type Department Care Team (Late st Contact Info) Description 11/22/2019 Telephone [facility] [place] [address] [place], [place] [phone] Venecia Vega MD 130 [facility] [address] [place] [phone] Medication Management Social History Tobacco Use Types [...] Encounter - Katt Stringer RN - 11/22/2019 1652 EDT Gave Arabella Vega' reply with understanding expressed. * Telephone [...] EDT Telemedicine [facility] Rheumatology [address] [place] [address] Venecia eVga MD [address] [facility] [place] [phone] documented as of this encounter Visit Diagnoses Not on filedocumented in this encounter Care Teams Informatics Specialist Relationship Specialty Start Date End Date Serafin Saucedo MD [address] [place] [phone] PCP - General 02/13/19 04/25/20 documented as of this encounter
--- OUTSIDE RECORDS SUMMARY | 2024-05-25 12:48 | XMS_ITS | Encounter Summary ---
Author Organization [facility] Address [address] [place] [address] Care Team Providers Care Regulatory Analyst Name Role Phone Serafin Saucedo MD Primary Care Provider [phone] Reason for Visit * Reason Onset Date Comments Other 11/16/2019 yeast infection Encounter Details Date Type Department Care Team ([facility] st Contact Info) Description 11/16/2019 Telephone [facility] Adult Primary Care - [place] [address] [place], [place] [address] Serafin Saucedo MD [address] [place] [phone] Other (yeast infection) Social History Tobacco Use [...] Telephone Encounter - Casandra Murray - 11/16/2019 1455 EDT Pt has a yeast infection caused by the the prednisone and Dr Vega suggested she call her pcp for ascript. Pt is requesting the pill for a yeast infection documented in this encounter Plan of Treatment Upcoming Encounters Date Type Department Care Team (Late st Contact Info) Description 09/21/2024 8:15 EDT Telemedicine [facility] Rheumatology [address] [place] [phone] Venecia Vega MD [address] [place] [address]-[address] [place] [phone] documented as of this encounter Visit Diagnoses Not on filedocumented in this encounter Care Teams Regulatory Analyst Relationship Specialty Start Date End Date Serafin Saucedo MD [address] [place] [phone] PCP - General 02/13/19 04/25/20 documented as of this encounter
--- OUTSIDE RECORDS SUMMARY | 2024-05-25 12:48 | XMS_ITS | Encounter Summary ---
Author Organization [facility] Address [address] [place] [address] Care Team Providers Care Stripper Preliminary Name Role Phone Serafin Saucedo MD Primary Care Provider [phone] Reason for Visit * Reason Onset Date Comments Medication Management 10/12/2019 HCQ not in stock Encounter Details Date Type Department Care Team (Late st Contact Info) Description 10/12/2019 Telephone [facility] [place] [address] [place], [place] [phone] Venecia Vega MD 130 [facility] [address] [place] [address] Medication Management (HCQ not in [...] in the PM 150 Tab 5 10/13/2019 0 documented in this encounter Miscellaneous Notes * Telephone Encounter - Katt Stringer RN - 10/13/[address] Vega SSZ instructions on Arabella's VM and sent dose increase Rx to [facility]. * Telephone Encounter - Katt Stringer [...] - 10/12/2019 1552 EDT The pharmacist at [facility] says that he won't be able [...] full prescription of Hydroxychloroquine prescribed by Dr. eVga as they currently only have about 30 tablets available and unsure of when they are getting more. Pharmacy alsostated they need to confirm diagnosis. The pharmacy benefit manager is looking for a call back to discuss these concerns and states the best number to reach the pharmacy is [phone]. documented in this encounter Plan of Treatment Upcoming Encounters Date Type Department Care Team (Late st Contact Info) Description 09/21/2024 8:15 EDT Telemedicine [facility] Rheumatology [address] [place], [place] [phone] Venecia Vega MD 130 [facility] [address] [place] [phone] documented as of this encounter Visit Diagnoses Diagnosis Seronegative spondyloarthropathy- Primary Spondylosis of unspecified site without mention of myelopathy documented in this encounter Discontinued Medications Medication Sig Discontinue Reason Start Date End Da te sulfaSALAzine (AZULFIDINE) 500 mg EC tabletIndications:Seronegativ e spondyloarthropathy Take 2 Tabs by mouth 2 times daily. Reorder 10/02/2019 10/13/2019 documented as of this encounter Care Teams Stripper Preliminary Relationship Specialty Start Date End Date Serafin Saucedo MD [address] [place] [phone] PCP - General 02/13/19 04/25/20 documented as of this encounter
--- OUTSIDE RECORDS SUMMARY | 2024-05-25 12:48 | XMS_ITS | Encounter Summary ---
Author Organization [facility] Address [address] [place] [address] Care Team Providers Care Reception Centre Manager Name Role Phone None, Provider Primary Care Provider Serafin Zapata MD Primary Care Provider [phone] Encounter Details Date Type Department Care Team (Late st Contact Info) Description 01/12/2019 Historical Results Only [facility] Radiology Results [address] [place], [place] [phone] Nancy Wyatt ND [address] [phone] Social History Tobacco Use Types Packs/Day Years [...] [facility] Rheumatology [address] [place], [place] [phone] Venecia Vega MD 130 [facility] [address] [place] [address] documented as of this encounter [...] MD ? CC: ? Transcribed Date/Time: 01/12/2019 (9147) ? Dry Lumber Grader: ? Printed Date/Time: 03/22/2019 (5961) ? PAGE 1 ? Signed Report ? Procedure Note Vasiliy Scott MD, MD - 05/09/2019 EXAM: RADIOLOGY/KNEE COMPLETE RT 4+VIEW EX. D/ (4250) CLINICAL INFORMATION: BILATERAL KNEE PAIN AND SWELLING [...] Vasiliy Scott MD CC: Transcribed Date/Time: 01/12/2019 (0038) Dry Lumber Grader: Printed Date/Time: 03/22/2019 (8523) PAGE 1 Signed Report Nancy Wyatt ND IMG DIAGNOSTIC IMAGING ORDERABLE S Final Result * XR KNEE LEFT 4 OR MORE [...] MD ? CC: ? Transcribed Date/Time: 01/12/2019 (1604) ? Dry Lumber Grader: [email or web address] ? Printed Date/Time: 03/22/2019 (5678) ? PAGE 1 ? Signed Report ? [...] Vasiliy Scott MD CC: Transcribed Date/Time: 01/12/2019 (6026) Dry Lumber Grader: Printed Date/Time: 03/22/2019 (6982) PAGE 1 Signed Report Nancy Wyatt ND IM DIAGNOSTIC IMAGING ORDERABLE S Final Result documented in this encounter Visit Diagnoses Not on filedocumented in this encounter Care Teams Reception Centre Manager Relationship Specialty Start Date End Date None, Provider PCP - General 04/02/15 02/12/19 Serafin Saucedo MD [address] [place] [phone] PCP - General 02/13/19 04/25/20 documented as of this encounter
--- OUTSIDE RECORDS SUMMARY | 2024-05-25 12:48 | XMS_ITS | Encounter Summary ---
Author Organization [facility] Address [address] [place] [address] Care Team Providers Care Calculus Tutor Name Role Phone Serafin Saucedo MD Primary Care Provider [phone] Reason for Visit * Reason Comments Follow-up Televideo visit- Pat ient c/o mild bilateral knee pain. Encounter Details Date Type Department Care Team (Late st Contact Info) Description 11/10/2019 16:15 EDT Telemedicine [facility] [place] [address] [place] [address] Venecia Vega MD 130 [facility] [address] [place] [address] Encounter for long-term (current) use [...] difficulty with his taper. Read about hydroxychloroquine [facility] Patient Instructions hydroxychloroquine Pronunciation: jonathan drox anuradha CAINDANIE hernandez Brand: Plaquenil What is the most important [...] in areas such as [place], [place], [facility]. This medicine is not effective against [...] genetic enzyme disorder such as porphyria or ufnpbaa-7-biqfrremc dehydrogenase (G6PD) deficiency. It is not known [...] may report side effects to FDA at 4-590-PBM-9478. What other drugs will affect hydroxychloroquine? Hydroxychloroquine [...] interact with hydroxychloroquine. This includes prescription and [id number]-[id number] medicines, vitamins, and herbal products. Not all [...] to ensure that the information provided by [employer]. ('[employer]') is accurate, up-to-date, and complete, but no guarantee is made to that effect. Drug information contained herein may be time sensitive. [employer] information has been compiled for use by healthcare practitioners and consumers in the [place] and therefore [employer] does not warrant that uses outside of the [place] are appropriate, unless specifically indicated otherwise. [employer] drug information does not endorse drugs, diagnose patients or recommend therapy. [employer] drug information isan informational resource designed to [...] effective or appropriate for any given patient. [employer] does not assume any responsibility for any aspect of healthcare administered with the aid of information [facility] provides. The information contained herein is not intended to cover all possible uses, directions, precautions, warnings, drug interactions, allergic reactions, or adverse effects. If you have questions about the drugs you are taking, check with your doctor, nurse or pharmacist. Copyright 3577-9477 [employer]. Version: 8.02. Revision date: 06/08/2017. Care instructions adapted under license by [facility]. If you have questions about a medical condition or this instruction, always ask your healthcare professional. [employer] disclaims any warranty or liability for your use of this information. documented in this encounter Ordered Prescriptions Prescription Sig Dispense Quantity Refills Last Filled Start Date End Date hydroxychloroquine (PLAQUENIL) 200 mg tabletIndications:S pondyloarthropathy Take 1 Tab by mouth daily. 30 Tab 3 11/10/2019 02/20/2020 documented in this encounter Progress Notes * Venecia Vega MD - 11/10/2019 1615 EDT [facility] Video Visit Today's visit [...] effective stopped to pursue naturopathic care. Rx [id number] with 15 months antibiotics/supplements prednisone. PT not [...] Contact Info) Description 09/21/2024 8:15 EDT Telemedicine [facility] Rheumatology [address] [place] [address] Venecia Vega MD [address] [facility] [address] [place] [phone] documented as of this encounter Visit Diagnoses [...] documented as of this encounter Care Teams Calculus Tutor Relationship Specialty Start Date End Date Serafin Saucedo MD [address] [place] [phone] PCP - General 02/13/19 04/25/20 documented as of this encounter
--- OUTSIDE RECORDS SUMMARY | 2024-05-25 12:48 | XMS_ITS | Encounter Summary ---
Author Organization [facility] Address [address] [place] [address] Care Team Providers Care Single Needle Tufting Machine Operator Name Role Phone None, Provider Primary Care Provider Serafin Zapata MD Primary Care Provider [phone] Encounter Details Date Type Department Care Team (Late st Contact Info) Description 03/01/2018 Historical Results Only [facility] - Main [place] [address] [place] [address] Venecia Veag MD [address] [place], [place] [address]B [facility] [address] [phone] Social History Tobacco Use Types [...] 8:15 EDT Telemedicine [facility] Rheumatology [address] [place] [address] Venecia Vega MD [address] [place] [address] [phone] documented as of this encounter [...] COMPREHENSIVE METABOLIC PANEL (CMP) (03/01/2018 16:00 EDT) Albumin % 3.9 3.4 - 4.9 g/dL 03/01/2018 17:42 [facility] ALKALINE PHOSPHATASE - [facility] 85 38 - 126 U/L 03/01/2018 17:42 [facility] BILIRUBIN TOTAL 0.3 0.2 - 1.3 mg/dL 03/01/2018 17:42 [facility] BUN - [facility] 8(L) 10 - 26 mg/dL 03/01/2018 17:42 [facility] CALCIUM - [facility] 8.9 8.5 - 10.5 mg/dL 03/01/2018 17:42 [facility] Chloride 105 96 - 110 mmol/L 03/01/2018 17:42 [facility] CO2 Total 25 22 - 32 mEq/L 03/01/2018 17:42 [facility] CREATININE 0.69 0.52 - 1.04 mg/dL 03/01/2018 17:42 [facility] eGFR >60 03/01/2018 17:42 [facility] Comment: Chronic renal impairment is defined as GFR <60 Multiply result by 1.210 for patients. eGFR calculated using the IDMS-traceable MDRD Study Equation. ??(effective 05/07/2014) Anion Gap 12 0 - 18 03/01/2018 17:42 [facility] GLUCOSE - [facility] 98 70 - 100 mg/dL 03/01/2018 17:42 [facility] Potassium 4.3 3.5 - 5.0 mEq/L 03/01/2018 17:42 EDT [facility] Sodium 142 136 - 145 mEq/L 03/01/2018 17:42 EDT [facility] TOTAL PROTEIN - [facility] 7.5 6.2 - 8.2 gm/dL 03/01/2018 17:42 EDT [facility] SGOT/AST - [facility] 47(H) 14 - 36 U/L 03/01/2018 17:42 T [facility] SGPT/ALT - [facility] 72(H) 9 - 52 U/L 8 17:42 EDT [facility] 03/01/2018 16:0 0 EDT 03/01/2018 16:00 EDT Narrative [facility] - 03/01/2018 17:42 EDT Does PT Have a Latex Allergy? NO Venecia Vega MD CHEMISTRY & BLOOD GAS OR DERABLES Final Result Performing Organization Address [facility] Co de Phone Number [facility] * TSH (03/01/2018 16:00 EDT) [facility] THYROID STIM HORMONE - [facility] 1.18 0.46 - 4.68 uIU/ml 03/01/2018 18:14 EDT [facility] Comment: The results of this assay can be falsely lowered due to the consumption of Biotin. 03/01/2018 16:0 0 EDT 03/01/2018 16:00 EDT Narrative [facility] - 03/01/2018 18:14 EDT Does PT Have a Latex Allergy? NO Venecia Vega MD CHEMISTRY & BLOOD GAS OR DERABLES Final Result Performing Organization Address [facility]/ZIP Co de Phone Number [facility] * LYME AB (03/01/2018 16:00 EDT) [facility] Lyme Ab IgG NEGATIVE 03/02/2018 12:26 EDT [facility] Lyme Ab POSITIVE 03/02/2018 12:26 [facility] Comment:Reflex to [place] ot has been ordered. 03/01/2018 16:0 0 EDT 03/01/2018 16:00 EDT Narrative [facility] - 03/02/2018 12:26 EDT Does PT Have a Latex Allergy? NO us Venecia Vega MD IMMUNOLOGY AND SEROLOGY ORDERABLES Final Result [facility] * (ABNORMAL) COMPLETE BLOOD COUNT WITH DIFFERENTIAL (AUTO) (03/01/2018 16:00 EDT) ABSOLUTE NEUTROPHIL COUN - [facility] 5.49 1.7 - 7.0 10e3/ul 03/01/2018 17:26 [facility] BASO # - [facility] 0.05 0.0 - 0.3 10e3/uL 03/01/2018 17:26 [facility] BASO % - [facility] 0 0 - 2 % 03/01/2018 17:26 [facility] EOS # - [facility] 0.37 0.05 - 0.5 10e3/uL 03/01/2018 17:26 [facility] EOS % - [facility] 3 0 - 5 % 03/01/2018 17:26 [facility] GRAN % - [facility] 46 40 - 80 % 03/01/2018 17:26 [facility] HEMATOCRIT - [facility] 40.9 34.0 - 47.0 % 03/01/2018 17:26 [facility] HEMOGLOBIN - [facility] 13.1 11.2 - 15.7 g/dl 03/01/2018 17:26 [facility] IG# - [facility] 0.02 0 - 0.07 10e3/uL 03/01/2018 17:26 [facility] IG% - [facility] 0.2 0 - 0.9 % 03/01/2018 17:26 [facility] LYMPH # - [facility] 5.29(H) 0.9 - 2.9 10e3/uL 03/01/2018 17:26 [facility] LYMPH% - [facility] 44(H) 20 - 40 % 03/01/2018 17:26 [facility] MEAN CORPUSCULAR HGB - [facility] 28.1 26 - 34 pg 03/01/2018 17:26 [facility] MEAN CORPUSCULAR HGB CONC - [facility] 32.0 31 - 36 g/dL 03/01/2018 17:26 [facility] MEAN CELL VOLUME - [facility] 87.6 77 - 100 fl 03/01/2018 17:26 [facility] MONO # - [facility] 0.82 0.3 - 0.9 10e3/uL 03/01/2018 17:26 [facility] MONO% - [facility] 7 0 - 12 % 03/01/2018 17:26 [facility] PLATELET COUNT 465(H) 150 - 400 10e3/ul 03/01/2018 17:26 [facility] RED BLOOD COUNT - [facility] 4.67 3.8 - 5.2 10e6/ul 03/01/2018 17:26 [facility] RED CELL DISTRI WIDTH - [facility] 14.3 11.8 - 15.6 % 03/01/2018 17:26 [facility] WHITE BLOOD COUNT - [facility] 12.0(H) 3.5 - 10.5 10e3/ul 03/01/2018 17:26 [facility] 03/01/2018 16:0 0 EDT 03/01/2018 16:00 EDT Narrative [facility] - 03/01/2018 17:26 EDT Does PT Have a Latex Allergy? NO us Venecia Vega MD HEMATOLOGY & PF4 ORDERAB LES Final Result [facility] * LYME IMMUNOBLOT CONFIRMATION (03/01/2018 16:00 EDT) [place] IGG Bands SEE COMMENTS () kDa 03/04/20 18 16:05 [facility] Comment:No bands detected. [place] IGM Band(s) p23 () kDa 03/04/20 18 16:05 EDT [facility] Lyme IgM ImmunoBlot Negative () 03/04/2018 16:05 EDT [facility] Comment:Reference Range: Neg ative [place] Immunoblot Interpretation SEE COMMENTS () 03/04/2018 16:05 EDT [facility] Comment: Specific serologic response to [...] blot are positive. Test Performed by: THE [address] [address] [place] IGG ImmunoBlot Negative () 03/04/2018 16:05 EDT [facility] Comment:Reference Range: Neg ative 03/01/2018 16:0 0 EDT 03/01/2018 16:00 EDT us Venecia Vega MD IMMUNOLOGY AND SEROLOGY ORDERABLES Final Result [facility] documented in this encounter Visit Diagnoses Not on filedocumented in this encounter Care Teams Single Needle Tufting Machine Operator Relationship Specialty Start Date End Date None, Provider PCP - General 04/02/15 02/12/19 Serafin Saucedo MD [address] [place] [phone] PCP - General 02/13/19 04/25/20 documented as of this encounter
--- OUTSIDE RECORDS SUMMARY | 2024-05-25 12:48 | XMS_ITS | Encounter Summary ---
Author Organization [facility] Address [address] [place] [address] Care Team Providers Care Machine Compositor Name Role Phone Serafin Saucedo MD Primary Care Provider [phone] Reason for Visit * Reason Onset Date Comments Other 07/12/2019 Encounter Details Date Type Department Care Team (Late st Contact Info) Description 07/12/2019 Telephone [facility] Adult Primary Care - [place] [address] [place], [place] [phone] Serafin Saucedo MD [address] [place] [phone] Other Social History Tobacco Use [...] was just diagnosed with the flu. The electrician deck said that the whole family needs to start Tamiflu because he is contagious. She would like to call in a prescription for it. documented in this encounter Plan of Treatment Upcoming Encounters Date Type Department Care Team (Late st Contact Info) Description 09/21/2024 8:15 EDT Telemedicine [facility] Rheumatology [address] [place] [phone] Venecia Vega MD [address] [place] [address] [place] [phone] documented as of this encounter Visit Diagnoses Not on filedocumented in this encounter Care Teams Machine Compositor Relationship Specialty Start Date End Date Serafin Saucedo MD [address] [place] [phone] PCP - General 02/13/19 04/25/20 documented as of this encounter
--- OUTSIDE RECORDS SUMMARY | 2024-05-25 12:48 | XMS_ITS | Encounter Summary ---
Author Organization [facility] Address [address] [place] [address] Care Team Providers Care Cork Mixer Name Role Phone Serafin Saucedo MD Primary Care Provider [phone] Reason for Visit * Reason Onset Date Comments Medication Management 11/03/2019 Encounter Details Date Type Department Care Team (Late st Contact Info) Description 11/03/2019 Telephone [facility] [place] [facility] [place] [address] [place], [place] [phone] Venecia Vega MD [address] [facility] [address] [place] [phone] Medication Management Social History Tobacco Use Types [...] continue calling pharmacies as she only contacted [facility] at this time. * Telephone Encounter - Venecia Vega MD - 11/03/2019 1259 EDT To be addressed at upcoming video visit. Very likely that other pharmacies will have it, * Telephone Encounter - Germaine Irby RN - 11/03/2019 1057 EDT Called pt.She states that [facility] cannot get Sulfasalazine at the moment.Pt will call other pharmacies to see if they stock it but she would like to know if she can switch to another medication. Please advise, Thank you * Telephone Encounter - Cortney Olmedo - 11/03/2019 0922 EDT [facility] pharmacy is unable to fill her medication- she did not leave the name of med- possibly HCQ. She wants to know what alternative there is. documented in this encounter Plan of Treatment Upcoming Encounters Date Type Department Care Team (Late st Contact Info) Description 09/21/2024 8:15 EDT Telemedicine [facility] [place] [facility] [place] [address] [place], [place] [address] Venecia Vgea MD [address] [facility] [address] [place] [phone] documented as of this encounter Visit Diagnoses Not on filedocumented in this encounter Care Teams Cork Mixer Relationship Specialty Start Date End Date Serafin Saucedo MD [address] [place] [phone] PCP - General 02/13/19 04/25/20 documented as of this encounter
--- OUTSIDE RECORDS SUMMARY | 2024-05-25 12:48 | XMS_ITS | Encounter Summary ---
Author Organization [facility] Address [address] [place] [address] Care Team Providers Care Incident Response Analyst Name Role Phone Serafin Saucedo MD Primary Care Provider [phone] Reason for Visit * Reason Comments Ear Infection (Otitis Media) Encounter Details Date Type Department Care Team ([facility] Contact Info) Description 07/24/2019 14:[address] [facility] Adult Primary Care - [place] [address] [place], [place] [phone] Katey Dunne, NIKKO [address] [place] [phone] Viral upper respiratory illness (Primary [...] documented in this encounter Progress Notes * Uzair Katey J, VEHICLE WASHER - 07/24/2019 1430 EST Patient ID: Arabella [...] (FLONASE) 50 mcg/actuation nasal spray Instill 1 [place] into both nostrils daily. (Patient taking differently: Instill 1 [place] into both nostrils if needed. ) 1 [...] 02/19 to 06/22 Dr Wyatt at [facility] dev[facility]ters. ??? Obesity (BMI 30-39.9) ??? Otitis media, recurrent, bilateral ??? Seronegative spondyloarthropathy ([facility]) 07/07/2019 ??? Seronegative spondyloarthropathy ([facility]) 07/07/2019 Past Surgical History: Procedure Laterality Date [...] Info) Description 09/21/2024 8:[address] [facility] Rheumatology [address] [place], [place] [phone] Venecia Vega MD [address] [facility]- [address] [place] [phone] documented as of this encounter Visit Diagnoses Diagnosis Viral upper respiratory illness- Primary Acute upper respiratory infections of unspecified site documented in this encounter Historical Medications * This list may reflect changes made after this encounter. ranitidine (ZANTAC) 300 mg tablet Take 300 mg by mouth if needed. 07/23/2019 11/10/2019 added in this encounter Care Teams Incident Response Analyst Relationship Specialty Start Date End Date Serafin Saucedo MD [address] [place] [phone] PCP - General 02/13/19 04/25/20 documented as of this encounter
--- OUTSIDE RECORDS SUMMARY | 2024-05-25 12:48 | XMS_ITS | Encounter Summary ---
Author Organization [facility] Address [address] [place] [address] Care Team Providers Care Software Quality Automation Engineer Name Role Phone Serafin Saucedo MD Primary Care Provider [phone] Encounter Details Date Type Department Care Team (Late st Contact Info) Description 07/24/2019 Orders Only [facility] [place] [address] [place] [address] Germaine Irby RN Social History Tobacco Use [...] Date predniSONE (DELTASONE) 5 mg tablet Take 1 Tab by mouth daily. 30 Tab 3 07/24/2019 09/07/2019 documented in this encounter Plan of Treatment Upcoming Encounters Date Type Department Care Team (Late st Contact Info) Description 09/21/2024 8:15 EDT Telemedicine [facility] [place] [address] [place], [place] [phone] Venecia Vega MD [address] [facility] [place] [phone] documented as of this encounter Visit Diagnoses Not on filedocumented in this encounter Care Teams Software Quality Automation Engineer Relationship Specialty Start Date End Date Serafin Saucedo MD [address] [place] [phone] PCP - General 02/13/19 04/25/20 documented as of this encounter
--- OUTSIDE RECORDS SUMMARY | 2024-05-25 12:48 | XMS_ITS | Encounter Summary ---
Author Organization [facility] Address [address] [place] [address] Care Team Providers Care Pest Control Service Representative Name Role Phone None, Provider Primary Care Provider Serafin Zapata MD Primary Care Provider [phone] Encounter Details Date Type Department Care Team (Late st Contact Info) Description 01/26/2018 Historical Results Only [facility] - Main [place] [address] [place] [address] Venecia Vega MD [address] [place], [place] [address]B [facility] [address] [phone] Social History Tobacco Use Types [...] Contact Info) Description 09/21/2024 8:15 EDT Telemedicine [facility] Rheumatology [address] [place] [phone] Venecia Vega MD [address] [place] [address] [phone] documented as of this encounter Procedures Procedure Name Priority Date/Time Associated Diagnosis Comments COMPLETE BLOOD COUNT WITH DIFFERENTIAL (AUTO) Routine 01/26/2018 11:43 EDT COMPREHENSIVE METABOLIC PANEL (CMP) Routine 01/26/2018 11:43 EDT documented in this encounter Results * (ABNORMAL) COMPREHENSIVE METABOLIC PANEL (CMP) (01/26/2018 11:43 EDT) Albumin % 4.1 3.4 - 4.9 g/dL 01/26/2018 12:19 [facility] ALKALINE PHOSPHATASE - [facility] 83 38 - 126 U/L 01/26/2018 12:19 [facility] BILIRUBIN TOTAL 0.4 0.2 - 1.3 mg/dL 01/26/2018 12:19 [facility] BUN - [facility] 10 10 - 26 mg/dL 01/26/2018 12:19 [facility] CALCIUM - [facility] 9.3 8.5 - 10.5 mg/dL 01/26/2018 12:19 [facility] Chloride 104 96 - 110 mmol/L 01/26/2018 12:19 [facility] CO2 Total 25 22 - 32 mEq/L 01/26/2018 12:19 [facility] CREATININE 0.74 0.52 - 1.04 mg/dL 01/26/2018 12:19 [facility] eGFR >60 01/26/2018 12:19 [facility] Comment: Chronic renal impairment is defined as GFR <60 Multiply result by 1.210 for patients. eGFR calculated using the IDMS-traceable MDRD Study Equation. ??(effective 05/07/2014) Anion Gap 12 0 - 18 01/26/2018 12:19 [facility] GLUCOSE - [facility] 97 70 - 100 mg/dL 01/26/2018 12:19 [facility] Potassium 4.3 3.5 - 5.0 mEq/L 01/26/2018 12:19 [facility] Sodium 141 136 - 145 mEq/L 01/26/2018 12:19 [facility] TOTAL PROTEIN - [facility] 7.5 6.2 - 8.2 gm/dL 01/26/2018 12:19 [facility] SGOT/AST - [facility] 52(H) 14 - 36 U/L 01/26/2018 12:19 EDT [facility] SGPT/ALT - [facility] 78(H) 9 - 52 U/L 8 12:19 [facility] 01/26/2018 11:4 3 EDT 01/26/2018 12:01 EDT Narrative [facility] - 01/26/2018 12:19 EDT Does PT Have a Latex Allergy? NO us Venecia Vega MD CHEMISTRY & BLOOD GAS OR DERABLES Final Result [facility] * (ABNORMAL) COMPLETE BLOOD COUNT WITH DIFFERENTIAL (AUTO) (01/26/2018 11:43 EDT) ABSOLUTE NEUTROPHIL COUN - [facility] 3.86 1.7 - 7.0 10e3/ul 01/26/2018 12:37 EDT [facility] BASO # - [facility] 0.03 0.0 - 0.3 10e3/uL 01/26/2018 12:37 [facility] BASO % - [facility] 0 0 - 2 % 01/26/2018 12:37 [facility] EOS # - [facility] 0.42 0.05 - 0.5 10e3/uL 01/26/2018 12:37 [facility] EOS % - [facility] 5 0 - 5 % 01/26/2018 12:37 [facility] GRAN % - [facility] 50 40 - 80 % 01/26/2018 12:37 [facility] HEMATOCRIT - [facility] 41.2 34.0 - 47.0 % 01/26/2018 12:37 [facility] HEMOGLOBIN - [facility] 13.6 11.2 - 15.7 g/dl 01/26/2018 12:37 [facility] IG# - [facility] 0.01 0 - 0.07 10e3/uL 01/26/2018 12:37 [facility] IG% - [facility] 0.1 0 - 0.9 % 01/26/2018 12:37 [facility] LYMPH # - [facility] 2.89 0.9 - 2.9 10e3/uL 01/26/2018 12:37 [facility] LYMPH% - [facility] 37 20 - 40 % 01/26/2018 12:37 [facility] MEAN CORPUSCULAR HGB - [facility] 28.8 26 - 34 pg 01/26/2018 12:37 [facility] MEAN CORPUSCULAR HGB CONC - [facility] 33.0 31 - 36 g/dL 01/26/2018 12:37 [facility] MEAN CELL VOLUME - [facility] 87.3 77 - 100 fl 01/26/2018 12:37 [facility] MONO # - [facility] 0.57 0.3 - 0.9 10e3/uL 01/26/2018 12:37 [facility] MONO% - [facility] 7 0 - 12 % 01/26/2018 12:37 [facility] PLATELET COUNT 424(H) 150 - 400 10e3/ul 01/26/2018 12:37 [facility] RED BLOOD COUNT - [facility] 4.72 3.8 - 5.2 10e6/ul 01/26/2018 12:37 [facility] RED CELL DISTRI WIDTH - [facility] 14.5 11.8 - 15.6 % 01/26/2018 12:37 [facility] WHITE BLOOD COUNT - [facility] 7.8 3.5 - 10.5 10e3/ul 01/26/2018 12:37 [facility] 01/26/2018 11:4 3 EDT 01/26/2018 12:01 EDT [facility] - 01/26/2018 12:37 EDT Does PT Have a Latex Allergy? NO us Venecia Vega MD HEMATOLOGY & PF4 ORDERAB LES Final Result [facility] documented in this encounter Visit Diagnoses Not on filedocumented in this encounter Care Teams Pest Control Service Representative Relationship Specialty Start Date End Date None, Provider PCP - General 04/02/15 02/12/19 Serafin Saucedo MD [address] [place] [phone] PCP - General 02/13/19 04/25/20 documented as of this encounter
--- OUTSIDE RECORDS SUMMARY | 2024-05-25 12:48 | XMS_ITS | Encounter Summary ---
Author Organization [facility] Address [address] [place] [address] Care Team Providers Care Consumer Loan Processor Name Role Phone Serafin Saucedo MD Primary Care Provider [phone] Reason for Visit * Reason Comments Follow-up Patient states she n otices some mild pain and discomfort in her left knee when she climbs stairs. Encounter Details Date Type Department Care Team (Latest Contact Info) Description 09/07/2019 13:45 EST Office Visit [facility] Rheumatology [address] [place], [place] [phone] Venecia Vega MD [address] [facility] [address] [place] [address] Seronegative spondyloarthropathy (HCC-CMS) (Primary Dx); [...] gative spondyloarthropathy Take 1 Tab by mouth 3 times daily. 270 Tab 3 09/07/2019 10/02/19 20 predniSONE (DELTASONE) 5 mg tablet Take 1 Tab by mouth daily. Change to every other day. 30 Tab 3 09/07/2019 10/02/19 20 documented in this encounter Progress Notes * [...] effective stopped to pursue naturopathic care. Rx [id number] with 15 months antibiotics/supplements prednisone. PT not [...] from 02/19 to 06/22 Dr Wyatt at [facility] [employer]. ??? Obesity (BMI 30-39.9) ??? Otitis media, recurrent, bilateral ??? Seronegative spondyloarthropathy ([facility]) 07/07/2019 ??? Seronegative spondyloarthropathy ([facility]) 07/07/2019 Past Surgical History: Procedure Laterality Date [...] [facility] 08/15/2019 0 ??? EOS # - [facility] 08/15/2019 0.45 ??? EOS % - [facility] 08/15/2019 3 ??? GRAN % - [facility] 08/15/2019 67.2 ??? HEMATOCRIT - [facility] 08/15/2019 41.5 ??? HEMOGLOBIN - [facility] 08/15/2019 13.2 ??? IG# - [facility] 08/15/2019 0.05 ??? IG% - [facility] 08/15/2019 0.3 ??? LYMPH # - [facility] 08/15/2019 3.2 ??? LYMPH% - [facility] 08/15/2019 22.0 ??? MEAN CORPUSCULAR HGB - C* 08/15/2019 28.4 ??? MEAN CORPUSCULAR HGB CON* 08/15/2019 31.8* ??? MEAN CELL VOLUME - [facility] 08/15/2019 89.2 ??? MONO # - [facility] 08/15/2019 1.0* ??? MONO% - [facility] 08/15/2019 7.0 ??? PLATELET COUNT - [facility] 08/15/2019 464* ??? RED BLOOD COUNT - [facility] 08/15/2019 4.65 ??? RED CELL DISTRI WIDTH - * 08/15/2019 14.8 ??? WHITE BLOOD COUNT - [facility] 08/15/2019 14.3* ??? ALBUMIN - [facility] 08/15/2019 4.4 ??? ALKALINE PHOSPHATASE - C* 08/15/2019 71 ??? BILIRUBIN TOTAL - [facility] 08/15/2019 0.4 ??? BUN - [facility] 08/15/2019 13 ??? CALCIUM - [facility] 08/15/2019 9.4 ??? Chloride 08/15/2019 103 ??? CO2 Total 08/15/2019 25 ??? Creatinine 08/15/2019 0.72 ? ? eGFR 08/15/2019 >60 ??? Anion Gap 08/15/2019 11 ??? GLUCOSE - [facility] 08/15/2019 90 ??? Potassium 08/15/2019 4.6 ??? Sodium 08/15/2019 139 ??? TOTAL PROTEIN - [facility] 08/15/2019 7.8 ??? SGOT/AST - [facility] 08/15/2019 26 ??? 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 Seronegative spondyloarthropathy Continue sulfasalazine increase to 1500 mg Prednisone every other day High risk medication use: Labs every 3 months Arabella was seen today for follow-up. Diagnoses and all orders for this visit: Seronegative spondyloarthropathy ([facility]) Comments: Increase sulfasalazine to 1500 mg daily [...] Telemedicine [facility] Rheumatology [address] [place], [place] [phone] Venecia Vega MD [address] [place] [address] [place] [phone] documented as of this encounter Visit Diagnoses [...] documented as of this encounter Care Teams Consumer Loan Processor Relationship Specialty Start Date End Date Serafin Saucedo MD [address] [place] [phone] PCP - General 02/13/19 04/25/20 documented as of this encounter
--- OUTSIDE RECORDS SUMMARY | 2024-05-25 12:48 | XMS_ITS | Encounter Summary ---
Author Organization [facility] Address [address] [place] [address] Care Team Providers Care Women'S Lacrosse Coach Name Role Phone None, Provider Primary Care Provider Serafin Zapata MD Primary Care Provider [phone] Encounter Details Date Type Department Care Team (Late st Contact Info) Description 12/04/2018 Historical Results Only [facility] [place] [address] [place], [place] [phone] Debra Burgos NP [address] [place] [address] [phone] Social History Tobacco Use Types Packs/Day Years [...] 8:15 EDT Telemedicine [facility] Rheumatology [address] [place], [place] [address] Venecia Vega MD 130 [facility] [address] [address] [place] [address] documented as of this encounter Procedures Procedure Name Priority Date/Time Associated Diagnosis Comments VARICELLA ZOSTER VIRUS MOLECULAR DETECTION, PCR Routine 12/04/2018 17:34 EDT documented in this encounter Results * VARICELLA ZOSTER VIRUS MOLECULAR DETECTION, PCR (12/04/2018 17:34 EDT) CAN SPEC DESCRIPTION - [facility] Ear () 12/06/2018 13:03 EDT [facility] Comment:Right VARIZELLA ZOSTER DNA RESULT - [facility] Negative () 12/06/2018 13:03 EDT [facility] Comment: This test was developed and its performance characteristics determined by [facility]. It has not been cleared or approved [...] testing. Test performed or referred by The [address] [id number] 12/04/2018 17:3 4 EDT 12/04/2018 19:32 EDT us Debra Burgos [facility] - GENERAL ORDERABL ES Final Result [facility] documented in this encounter Visit Diagnoses Not on filedocumented in this encounter Care Teams Women'S Lacrosse Coach Relationship Specialty Start Date End Date None, Provider PCP - General 04/02/15 02/12/19 Serafin Saucedo MD [address] [place] [address] [phone] PCP - General 02/13/19 04/25/20 documented as of this encounter
--- OUTSIDE RECORDS SUMMARY | 2024-05-25 12:48 | XMS_ITS | Encounter Summary ---
Author Organization [facility] Address [address] [place] [address] Care Team Providers Care Mover Name Role Phone Serafin Saucedo MD Primary Care Provider [phone] Reason for Visit * Reason Onset Date Comments Other 11/16/2019 Question/concern regarding pause in medication Encounter Details Date Type Department Care Team (Late st Contact Info) Description 11/16/2019 Telephone [facility] [place] [address] [place] [address] Venecia Vega MD 130 [facility] [address] [address] [place] [address] Other (Question/concern regarding pause in [...] like a nurse to call back at [phone]. documented in this encounter Plan of Treatment Upcoming Encounters Date Type Department Care Team (Late st Contact Info) Description 09/21/2024 8:15 EDT Telemedicine [facility] Rheumatology [address] [place] [address] Venecia Vega MD [address] [facility] [address] [address] [place] [address] documented as of this encounter Visit Diagnoses Not on filedocumented in this encounter Care Teams Mover Relationship Specialty Start Date End Date Serafin Saucedo MD [address] [place] [address] [phone] PCP - General 02/13/19 04/25/20 documented as of this encounter
--- OUTSIDE RECORDS SUMMARY | 2024-05-25 12:48 | XMS_ITS | Encounter Summary ---
Author Organization [facility] Address [address] [place] [address] Care Team Providers Care Printed Circuit Boards Solder Leveler Name Role Phone None, Provider Primary Care Provider Serafin Zapata MD Primary Care Provider Encounter Details Date Type Department Care Team (Late st Contact Info) Description 09/30/2018 Historical Results Only [facility] Radiology Results [address] [place], [place] [phone] Nancy Wyatt ND [address] [phone] Social History Tobacco Use Types Packs/Day Years [...] 8:15 EDT Telemedicine [facility] Rheumatology [address] [place] [address] Venecia Vega MD 130 [facility] [address] [address] [place] [address] documented as of this encounter [...] MD ? CC: ? Transcribed Date/Time: 09/30/2018 (45) ? Electrical & Instrumentation Supervisor: ? Printed Date/Time: 12/25/2018 (2101) ? PAGE [...] Olguin MD CC: Transcribed Date/Time: 09/30/2018 (944) Electrical & Instrumentation Supervisor: Printed Date/Time: 12/25/2018 (2101) PAGE 1 Signed Report Nancy Wyatt ND [facility] ORDERABLES Final Result * US ABDOMEN COMPLETE (09/30/2018 9:38 EDT) [...] CC: ? Transcribed Date/Time: 09/30/2018 (0942) ? Electrical & Instrumentation Supervisor: [email or web address] ? Printed Date/Time: 12/25/2018 (210) ? PAGE [...] Trevor Olguin MD CC: Transcribed Date/Time: 09/30/2018 (0942) Electrical & Instrumentation Supervisor: Printed Date/Time: 12/25/2018 (2270) PAGE 1 Signed Report Nancy Wyatt [facility] ORDERABLES Final Result documented in this encounter Visit Diagnoses Not on filedocumented in this encounter Care Teams Printed Circuit Boards Solder Leveler Relationship Specialty Start Date End Date None, Provider PCP - General 04/02/15 02/12/19 Serafin Saucedo MD [address] [place] [address] [phone] PCP - General 02/13/19 04/25/20 documented as of this encounter
--- OUTSIDE RECORDS SUMMARY | 2024-05-25 12:48 | XMS_ITS | Encounter Summary ---
Author Organization [facility] Address [address] [place] [address] Care Team Providers Care Rn Lactation Consultant Name Role Phone Serafin Saucedo MD Primary Care Provider [phone] Reason for Visit * Reason Onset Date Comments Medication Management 08/24/2019 Encounter Details Date Type Department Care Team (Late st Contact Info) Description 08/24/2019 Telephone [facility] Rheumatology [address] [place], [place] [phone] Venecia Vega MD 130 [facility] [address] [address] [place] [phone] Medication Management Social History Tobacco Use Types [...] Encounter - Katt Stringer RN - 08/24/[address] Vega' reply to Arabella [...] Telephone Encounter - Michelle Ochoa - 08/24/2019 1439 EST LVM patient would like a call back to discuss medication side effects. documented in this encounter Plan of Treatment Upcoming Encounters Date Type Department Care Team (Late st Contact Info) Description 09/21/2024 8:15 EDT Telemedicine [facility] Rheumatology [address] [place] [address] Venecia Vega MD 130 [facility] [address] [place] [address] documented as of this encounter Visit Diagnoses Not on filedocumented in this encounter Care Teams Rn Lactation Consultant Relationship Specialty Start Date End Date Serafin Saucedo MD [address] [place] [address] [phone] PCP - General 02/13/19 04/25/20 documented as of this encounter
--- OUTSIDE RECORDS SUMMARY | 2024-05-25 12:48 | XMS_ITS | Encounter Summary ---
Author Organization [facility] Address [address] [place] [address] Care Team Providers Care Labor Trainer Name Role Phone None, Provider Primary Care Provider Unavailabl e Encounter Details Date Type Department Care Team (Latest Contact Info) Description 01/12/2019 15:22 EDT - 01/12/2019 23:59 EDT Hospital Encounter [address] [address] Unknown, Provider, Discharge Disposition: Home or Self [...] Contact Info) Description 09/21/2024 8:15 EDT Telemedicine [facility] Rheumatology [address] [place], [place] [address] Venecia Vega MD 130 [facility] [address] [address] [place] [phone] documented as of this encounter Visit Diagnoses Not on filedocumented in this encounter Care Teams Labor Trainer Relationship Specialty Start Date End Date None, Provider PCP - General 04/02/15 02/12/19 documented as of this encounter
--- OUTSIDE RECORDS SUMMARY | 2024-05-25 12:48 | XMS_ITS | Encounter Summary ---
Author Organization [facility] Address [address] [place] [address] Care Team Providers Care Adjunct Writing Instructor Name Role Phone Serafin Saucedo MD Primary Care Provider [phone] Encounter Details Date Type Department Care Team (Late st Contact Info) Description 08/15/2019 Results Only [facility] Rhe[facility] [address] [place], [place] [address] Venecia Vega MD 130 [facility] [address] [address] [place] [phone] Social History Tobacco Use Types Packs/Day Years [...] Telemedicine [facility] Rheumatology [address] [place] [address] Venecia Vega MD [address] [facility] [address] [place] [phone] documented as of this encounter Procedures Procedure Name Priority Date/Time Associated Diagnosis Comments COMPLETE BLOOD COUNT WITH DIFFERENTIAL (AUTO) Routine 08/15/2019 8:58 EST COMPREHENSIVE METABOLIC PANEL (CMP) Routine 08/15/2019 8:58 EST documented in this encounter Results * COMPREHENSIVE METABOLIC PANEL (CMP) (08/15/2019 8:58 EST) Albumin % 4.4 3.4 - 4.9 g/dL 08/15/2019 10:04 [facility] ALKALINE PHOSPHATASE - [facility] 71 38 - 126 U/L 08/15/2019 10:04 [facility] BILIRUBIN TOTAL 0.4 0.2 - 1.3 mg/dL 08/15/2019 10:04 [facility] BUN - [facility] 13 10 - 26 mg/dL 08/15/2019 10:04 [facility] CALCIUM - [facility] 9.4 8.5 - 10.5 mg/dL 08/15/2019 10:04 [facility] Chloride 103 96 - 110 mmol/L 08/15/2019 10:04 [facility] CO2 Total 25 22 - 32 mEq/L 08/15/2019 10:04 [facility] CREATININE 0.72 0.52 - 1.04 mg/dL 08/15/2019 10:04 [facility] eGFR >60 08/15/2019 10:04 [facility] Comment: Chronic renal impairment is defined as GFR <60 Multiply result by 1.210 for patients. eGFR calculated using the IDMS-traceable MDRD Study Equation. ??(effective 05/07/2014) Anion Gap 11 0 - 18 08/15/2019 10:04 [facility] GLUCOSE - [facility] 90 70 - 100 mg/dL 08/15/2019 10:04 [facility] Potassium 4.6 3.5 - 5.0 mEq/L 08/15/2019 10:04 [facility] Sodium 139 136 - 145 mEq/L 08/15/2019 10:04 [facility] TOTAL PROTEIN - [facility] 7.8 6.2 - 8.2 gm/dL 08/15/2019 10:04 [facility] SGOT/AST - [facility] 26 14 - 36 U/L 08/15/2019 10:04 [facility] SGPT/ALT - [facility] 24 0 - 35 U/L 0 10:04 [facility] 08/15/2019 8:58 EST 08/15/2019 9:03 [facility] - 08/15/2019 10:04 EST Does PT Have a Latex Allergy? NO us Venecia Vega MD CHEMISTRY & BLOOD GAS OR DERABLES Final Result [facility] * (ABNORMAL) COMPLETE BLOOD COUNT WITH DIFFERENTIAL (AUTO) (08/15/2019 8:58 EST) Gran # 9.6(H) 2.2 - 8.85 10e3/uL 08/15/2019 9:59 [facility] BASO # - [facility] 0.06 0.01 - 0.11 10e/uL 08/15/2019 9:59 [facility] BASO % - [facility] 0 0 - 2 % 08/15/2019 9:59 [facility] EOS # - [facility] 0.45 0.03 - 0.61 10e3/ul 08/15/2019 9:59 [facility] EOS % - [facility] 3 0 - 5 % 08/15/2019 9:59 [facility] GRAN % - [facility] 67.2 40 - 80 % 08/15/2019 9:59 [facility] HEMATOCRIT - [facility] 41.5 34.9 - 44.4 % 08/15/2019 9:59 [facility] HEMOGLOBIN - [facility] 13.2 11.6 - 15.2 g/dl 08/15/2019 9:59 [facility] IG# - [facility] 0.05 0 - 0.7 10e3/uL 08/15/2019 9:59 [facility] IG% - [facility] 0.3 0 - 0.9 % 08/15/2019 9:59 [facility] LYMPH # - [facility] 3.2 1.09 - 3.3 10e3/ul 08/15/2019 9:59 [facility] LYMPH% - [facility] 22.0 20 - 40 % 08/15/2019 9:59 [facility] MEAN CORPUSCULAR HGB - [facility] 28.4 26.7 - 33.3 pg 08/15/2019 9:59 [facility] MEAN CORPUSCULAR HGB CONC - [facility] 31.8(L) 32.1 - 35.9 g/dL 08/15/2019 9:59 [facility] MEAN CELL VOLUME - [facility] 89.2 81 - 98 fl 08/15/2019 9:59 [facility] MONO # - [facility] 1.0(H) 0.1 - 0.8 10e3/uL 08/15/2019 9:59 [facility] MONO% - [facility] 7.0 0 - 12 % 08/15/2019 9:59 [facility] PLATELET COUNT 464(H) 141 - 377 10e3/ul 08/15/2019 9:59 [facility] RED BLOOD COUNT - [facility] 4.65 3.86 - 5.04 10e3/ul 08/15/2019 9:59 [facility] RED CELL DISTRI WIDTH - [facility] 14.8 <14.7 % 08/15/2019 9:59 [facility] WHITE BLOOD COUNT - [facility] 14.3(H) 4.0 - 12.4 10e3/ul 08/15/2019 9:59 [facility] 08/15/2019 8:58 [facility] 08/15/2019 9:03 [facility] - 08/15/2019 9:59 EST Does PT Have a Latex Allergy? NO us Venecia Vega MD HEMATOLOGY & PF4 ORDERAB LES Final Result [facility] documented in this encounter Visit Diagnoses Not on filedocumented in this encounter Care Teams Adjunct Writing Instructor Relationship Specialty Start Date End Date Serafin Saucedo MD [address] [place] [phone] PCP - General 02/13/19 04/25/20 documented as of this encounter
--- OUTSIDE RECORDS SUMMARY | 2024-05-25 12:48 | XMS_ITS | Encounter Summary ---
Author Organization [facility] Address [address] [place] [address] Care Team Providers Care Radiology Administrator Name Role Phone None, Provider Primary Care Provider Unavailabl e Encounter Details Date Type Department Care Team (Latest Contact Info) Description 04/14/2018 13:31 EDT - 04/14/2018 23:59 EDT Hospital Encounter [address] [address] Unknown, Provider, Discharge Disposition: Home or Self [...] Code Departure Means Destination Home or Self Shelter documented in this encounter Plan of Treatment Upcoming Encounters Date Type Department Care Team (Late st Contact Info) Description 09/21/2024 8:15 EDT Telemedicine [facility] Rheumatology [address] [place], [place] [address] Venecia Vega MD 130 [facility] [address] [address] [place] [phone] documented as of this encounter Visit Diagnoses Not on filedocumented in this encounter Care Teams Radiology Administrator Relationship Specialty Start Date End Date None, Provider PCP - General 04/02/15 02/12/19 documented as of this encounter
--- OUTSIDE RECORDS SUMMARY | 2024-05-25 12:49 | XMS_ITS | Encounter Summary ---
Author Organization [facility] Address [address] [place] [address] Care Team Providers Care Tile Mechanic Helper Name Role Phone None, Provider Primary Care Provider Serafin Zapata MD Primary Care Provider Encounter Details Date Type Department Care Team (Late st Contact Info) Description 09/30/2015 Historical Results Only [facility] Radiology Results [address] [place] [address] Matt Moncada MD Social History Tobacco Use [...] Contact Info) Description 09/21/2024 8:15 EDT Telemedicine [facility] Rheumatology [address] [place], [place] [phone] Venecia Vega MD 130 [facility] [address] [place] [phone] documented as of this encounter Procedures Procedure [...] MD ? CC: ? Transcribed Date/Time: 09/30/2015 (1903) ? Certified Fraud Examiner: ? Printed Date/Time: 12/15/2018 (0840) ? PAGE 1 ? Signed Report ? [...] Griffin MD CC: Transcribed Date/Time: 09/30/2015 (1903) Certified Fraud Examiner: Printed Date/Time: 12/15/2018 (6217) PAGE 1 Signed Report us Matt Moncada MD IMG US OB ORDERABLES Final Re sult documented in this encounter Visit Diagnoses Not on filedocumented in this encounter Care Teams Tile Mechanic Helper Relationship Specialty Start Date End Date None, Provider PCP - General 04/02/15 02/12/19 Serafin Saucedo MD [address] [place] [phone] PCP - General 02/13/19 04/25/20 documented as of this encounter
--- OUTSIDE RECORDS SUMMARY | 2024-05-25 12:49 | XMS_ITS | Encounter Summary ---
Author Organization [facility] Address [address] [place] [address] Care Team Providers Care Restaurant Maintenance Technician Name Role Phone None, Provider Primary Care Provider Serafin Zapata MD Primary Care Provider [phone] Encounter Details Date Type Department Care Team (Late st Contact Info) Description 04/10/[address] [facility] Radiology Results [address] [place] [address] Kellen Turner MD [address] [place], [place] [address], [address] [place] [address] Social History Tobacco Use Types [...] 09/21/2024 8:[address] [facility] Rheumatology [address] [place] [address] Venecia Vega MD [address] [place] [address] [address] [place] [phone] documented as of this [...] report. ??Report also available in PACS. ? MACHINE PACK ASSEMBLER:cristina ?Reported By: Luis Antonio Griffin MD ? CC: ? Transcribed Date/Time: 04/10/2016 (1639) ? Gis Software Developer: LM ? Printed Date/Time: 12/16/2018 (0746) ? PAGE 1 ? Signed Report ? Procedure Note Luis Antonio Griffin MD - 05/10/2019 EXAM: ULTRASOUND/OB LEVEL 2 FOLLOW UP EX. D/ (1500) CLINICAL INFORMATION: CHECK ESTIMATED WEIGHT Z33.1 , INCIDENTAL STATE See attached report. Report also available in PACS. MACHINE PACK ASSEMBLER:cristina Reported By: Luis Antonio Griffin MD CC: Transcribed Date/Time: 04/10/2016 (1639) Gis Software Developer: LM Printed Date/Time: 12/16/2018 (3520) PAGE 1 Signed Report us Kellen Turner MD IMG US OB ORDERABLES Final Re sult * US ABDOMEN LIMITED (04/10/2016 13:30 EDT) [...] CC: ? Transcribed Date/Time: 04/10/2016 (1337) ? Gis Software Developer: ? Printed Date/Time: 12/16/2018 (0746) ? PAGE [...] Olguin MD CC: Transcribed Date/Time: 04/10/2016 (1337) Gis Software Developer: Printed Date/Time: 12/16/2018 (2030) PAGE 1 Signed Report us Kellen Turner MD IMG US ORDERABLES Final Resul t documented in this encounter Visit Diagnoses Not on filedocumented in this encounter Care Teams Restaurant Maintenance Technician Relationship Specialty Start Date End Date None, Provider PCP - General 04/02/15 02/12/19 Serafin Saucedo MD [address] [place] [phone] PCP - General 02/13/19 04/25/20 documented as of this encounter
--- OUTSIDE RECORDS SUMMARY | 2024-05-25 12:49 | XMS_ITS | Encounter Summary ---
Author Organization [facility] Address [address] [place] [address] Care Team Providers Care Jewelry Bearing Maker Name Role Phone None, Provider Primary Care Provider Serafin Zapata MD Primary Care Provider [phone] Encounter Details Date Type Department Care Team (Late st Contact Info) Description 10/21/[address] [facility] Radiology Results [address] [place] [address] Kellen Turner MD [address] [place], [place] [address], [address] [place] [address] Social History Tobacco Use Types [...] [facility] Rheumatology [address] [place] [address] Venecia Vega MD [address] [place], [place] [address] [address] [place] [address] documented as of this encounter [...] report. ??Report also available in PACS. ? JSP:[email or web address] ?Reported By: Bong Mead MD ? CC: ? Transcribed Date/Time: 10/22/2015 (0920) ? Project Manager Senior: LM ? Printed Date/Time: 12/15/2018 (4397) ? PAGE 1 ? Signed Report ? Procedure Note Bong Mead MD - 05/10/2019 EXAM: ULTRASOUND/TRANSVAGINAL - OB (LEVEL EX. D/ (1057) CLINICAL INFORMATION: Z33.1 STATE DATING See attached report. Report also available in PACS. JSP:[email or web address] Reported By: Bong Mead MD CC: Transcribed Date/Time: 10/22/2015 (9673) Project Manager Senior: LM Printed Date/Time: 12/15/2018 (1897) PAGE 1 Signed Report us Kellen Turner MD IMG US OB ORDERABLES Final Re sult * PAP TEST (10/21/2015) 10/21/2015 10/21/2015 17: 07 EDT Narrative [facility] - 10/24/2015 14:26 EDT ----- ------- Name: DEVIKA OJEDA ? : 81 ?Age/Sex: 33/F ?Unit#: [id number] ? Loc: AGO ? Status: REG POV ?? Reg Date: 10/21/15 ? Pt.Phone Number: ? ----- ------- Specimen: [id number] ?STATUS: SOUT ?Spec Date:10/21/15 ? Physician Copies: ?Kellen Turner MD ?? Tissues: ? Cervical/Endo Pap ?Serafin Saucedo MD CPT: 01828 ?? Units: ??1 ----- ------- ? CYTOLOGY [...] Test Performed by [facility], [address] [place] [address] Statement Clerk: Rhona Brown MD PHD ----- ------- us Kellen Turner MD PATHOLOGY ORDERABLES Final Re sult [facility] documented in this encounter Visit Diagnoses Not on filedocumented in this encounter Care Teams Jewelry Bearing Maker Relationship Specialty Start Date End Date None, Provider PCP - General 04/02/15 02/12/19 Serafin Saucedo MD [address] [place] [phone] PCP - General 02/13/19 04/25/20 documented as of this encounter
--- OUTSIDE RECORDS SUMMARY | 2024-05-25 12:49 | XMS_ITS | Encounter Summary ---
Author Organization [facility] Address [address] [place] [address] Care Team Providers Care College President Name Role Phone None, Provider Primary Care Provider Serafin Zapata MD Primary Care Provider [phone]- [phone] Encounter Details Date Type Department Care Team (Late st Contact Info) Description 11/24/2016 Historical Results Only [facility] Lab - Main [place] [address] [place], [place] [address] Beth Hinson Ae, GOLD BURNISHER [address] [place], [place] [phone] Social History Tobacco Use Types Packs/Day Years [...] Telemedicine [facility] Rheumatology [address] [place], [place] [phone] Venecia Vega MD [address] [facility] [address] [place] [address] documented as of this encounter Procedures Procedure Name Priority Date/Time Associated Diagnosis Comments COMPLETE BLOOD COUNT WITH DIFFERENTIAL (AUTO) Routine 11/24/2016 14:53 EDT THYROID CASCADE Routine 11/24/2016 14:53 EDT COMPREHENSIVE METABOLIC PANEL (CMP) Routine 11/24/2016 14:53 EDT documented in this encounter Results * THYROID CASCADE (11/24/2016 14:53 EDT) Pathologist [facility] TSH 1.77 0.35 - 5.50 uIU/mL [facility]2016 [facility] 14:5 3 EDT 11/24/2016 18:21 EDT us Beth Hinson APRN CHEMISTRY & BLOOD GAS ORD ERABLES Final Result [facility] * (ABNORMAL) COMPREHENSIVE METABOLIC PANEL (CMP) (11/24/2016 14:53 EDT) Pathologist [facility] Albumin % 3.9 3.4 - 5.0 g/dL 11/24/2016 19:21 [facility] ALKALINE PHOSPHATASE - [facility] 80 41 - 126 U/L 11/24/2016 19:21 [facility] BILIRUBIN TOTAL 0.4 0.0 - 1.0 mg/dL 11/24/2016 19:21 [facility] BUN - [facility] 8 7 - 18 mg/dL 11/24/2016 19:21 [facility] CALCIUM - [facility] 9.2 8.5 - 10.1 mg/dL 11/24/2016 19:21 [facility] Chloride 104 98 - 107 mEq/L 11/24/2016 19:24 [facility] CO2 Total 31 21 - 32 mEq/L 11/24/2016 19:24 [facility] CREATININE 0.75 0.5 - 1.3 mg/dL 11/24/2016 19:21 [facility] eGFR >60 11/24/2016 19:21 [facility] Comment: Chronic renal impairment is defined as GFR <60 Multiply result by 1.210 for patients. eGFR calculated using the IDMS-traceable MDRD Study Equation. ??(effective 05/07/2014) Anion Gap 5 5 - 15 11/24/2016 19:24 EDT [facility] GLUCOSE - [facility] 89 70 - 100 mg/dL 11/24/2016 19:21 EDT [facility] Potassium 3.9 3.5 - 5.0 mEq/L 11/24/2016 19:21 EDT [facility] Sodium 140 135 - 145 mEq/L 11/24/2016 19:24 EDT [facility] TOTAL PROTEIN - [facility] 7.4 6.4 - 8.2 gm/dl 11/24/2016 19:21 T [facility] SGOT/AST - [facility] 39(H) 10 - 37 U/L 11/24/2016 19:21 [facility] SGPT/ALT - [facility] 61 12 - 78 U/L 11/24/2016 19:21 T [facility] 11/24/2016 14:5 3 EDT 11/24/2016 18:21 EDT us Beth Hinson APRN CHEMISTRY & BLOOD GAS ORD ERABLES Final Result [facility] * (ABNORMAL) COMPLETE BLOOD COUNT WITH DIFFERENTIAL (AUTO) (11/24/2016 14:53 EDT) ABSOLUTE NEUTROPHIL COUN - [facility] 6.42 1.7 - 7.0 10e3/ul 11/24/2016 18:33 EDT [facility] BASO # - [facility] 0.05 0.0 - 0.3 10e3/uL 11/24/2016 18:33 EDT [facility] BASO % - [facility] 0 0 - 2 % 11/24/2016 18:33 EDT [facility] EOS # - CV 0.61(H) 0.05 - 0.5 10e3/uL 11/24/2016 18:33 EDT [facility] EOS % - [facility] 5 0 - 5 % 11/24/2016 18:33 EDT [facility] GRAN % - CV 51 40 - 80 % 11/24/2016 18:33 [facility] HEMATOCRIT - [facility] 42.3 34.0 - 47.0 % 11/24/2016 18:33 [facility] HEMOGLOBIN - [facility] 13.8 11.2 - 15.7 g/dl 11/24/2016 18:33 [facility] IG# - [facility] 0.03 0 - 0.07 10e3/uL 11/24/2016 18:33 [facility] IG% - [facility] 0.2 0 - 0.9 % 11/24/2016 18:33 [facility] LYMPH # - [facility] 4.16(H) 0.9 - 2.9 10e3/uL 11/24/2016 18:33 [facility] LYMPH% - [facility] 33 20 - 40 % 11/24/2016 18:33 [facility] MEAN CORPUSCULAR HGB - [facility] 28.8 26 - 34 pg 11/24/2016 18:33 [facility] MEAN CORPUSCULAR HGB CONC - [facility] 32.6 31 - 36 g/dL 11/24/2016 18:33 [facility] MEAN CELL VOLUME - [facility] 88.3 77 - 100 fl 11/24/2016 18:33 [facility] MONO # - [facility] 1.23(H) 0.3 - 0.9 10e3/uL 11/24/2016 18:33 [facility] MONO% - [facility] 10 0 - 12 % 11/24/2016 18:33 [facility] PLATELET COUNT 425(H) 150 - 400 10e3/ul 11/24/2016 18:33 [facility] RED BLOOD COUNT - [facility] 4.79 3.8 - 5.2 10e6/ul 11/24/2016 18:33 [facility] RED CELL DISTRI WIDTH - [facility] 15.3 11.8 - 15.6 % 11/24/2016 18:33 [facility] WHITE BLOOD COUNT - [facility] 12.5(H) 3.5 - 10.5 10e3/ul 11/24/2016 18:33 EDT [facility] 11/24/2016 14:5 3 EDT 11/24/2016 18:22 EDT us Beth Wally Sravan GOLD BURNISHER HEMATOLOGY & PF4 ORDERABL ES Final Result [facility] documented in this encounter Visit Diagnoses Not on filedocumented in this encounter Care Teams College President Relationship Specialty Start Date End Date None, Provider PCP - General 04/02/15 02/12/19 Serafin Saucedo MD [address] [place] [phone] PCP - General 02/13/19 04/25/20 documented as of this encounter
--- OUTSIDE RECORDS SUMMARY | 2024-05-25 12:49 | XMS_ITS | Encounter Summary ---
Author Organization [facility] Address [address] [place] [address] Care Team Providers Care Photo Checker Name Role Phone None, Provider Primary Care Provider Serafin Zapata MD Primary Care Provider Encounter Details Date Type Department Care Team (Late st Contact Info) Description 08/16/2017 Historical Results Only [facility] - Main [place] [address] [place] [phone] Serafin Saucedo MD [address] [place] [phone] Social History Tobacco Use Types Packs/Day [...] 09/21/2024 8:15 EDT Telemedicine [facility] Rheumatology [address] [place] [address] [phone] Venecia Vega MD [address] [place] [address] [address] [place] [address] documented as of this encounter Procedures Procedure Name Priority Date/Time Associated Diagnosis Comments THYROID CASCADE Routine 08/16/2017 11:07 EST MAGNESIUM Routine 08/16/2017 11:07 EST COMPREHENSIVE METABOLIC PANEL (CMP) Routine 08/16/2017 11:07 EST documented in this encounter Results * MAGNESIUM (08/16/2017 11:07 EST) Pathologist [facility] Magnesium 1.90 1.7 - 2.8 mg/dL 08/16/2017 15:22 [facility] 08/16/2017 11:0 7 EST 08/16/2017 15:03 EST us Serafin Saucedo MD CHEMISTRY & BLOOD GAS ORDER RAMAN Final Result [facility] * (ABNORMAL) COMPREHENSIVE METABOLIC PANEL (CMP) (08/16/2017 11:07 EST) Pathologist [facility] Albumin % 4.2 3.4 - 4.9 g/dL 08/16/2017 15:22 [facility] ALKALINE PHOSPHATASE - [facility] 68 38 - 126 U/L 08/16/2017 15:22 [facility] BILIRUBIN TOTAL 0.3 0.2 - 1.3 mg/dL 08/16/2017 15:22 [facility] BUN - [facility] 11 10 - 26 mg/dL 08/16/2017 15:22 [facility] CALCIUM - [facility] 9.9 8.5 - 10.5 mg/dL 08/16/2017 15:22 [facility] Chloride 103 96 - 110 mmol/L 08/16/2017 15:22 [facility] CO2 Total 25 22 - 32 mEq/L 08/16/2017 15:22 [facility] CREATININE 0.77 0.52 - 1.04 mg/dL 08/16/2017 15:22 [facility] eGFR >60 08/16/2017 15:22 [facility] Comment: Chronic renal impairment is defined as GFR <60 Multiply result by 1.210 for patients. eGFR calculated using the IDMS-traceable MDRD Study Equation. ??(effective 05/07/2014) Anion Gap 12 0 - 18 08/16/2017 15:22 [facility] GLUCOSE - [facility] 97 70 - 100 mg/dL 08/16/2017 15:22 [facility] Potassium 4.0 3.5 - 5.0 mEq/L 08/16/2017 15:22 [facility] Sodium 140 136 - 145 mEq/L 08/16/2017 15:22 [facility] TOTAL PROTEIN - [facility] 7.3 6.2 - 8.2 gm/dL 08/16/2017 15:22 [facility] SGOT/AST - [facility] 52(H) 14 - 36 U/L 08/16/2017 15:22 [facility] SGPT/ALT - [facility] 72(H) 9 - 52 U/L 8 15:22 [facility] 08/16/2017 11:0 7 EST 08/16/2017 15:03 EST Serafin Saucedo MD CHEMISTRY & BLOOD GAS ORDER RAMAN Final Result [facility] * THYROID CASCADE (08/16/2017 11:07 EST) TSH 1.38 0.46 - 4.68 uIU/mL 08/16/2017 15:52 [facility] 08/16/2017 11:0 7 EST 08/16/2017 15:03 EST Serafin Saucedo MD CHEMISTRY & BLOOD GAS ORDER RAMAN Final Result [facility] documented in this encounter Visit Diagnoses Not on filedocumented in this encounter Care Teams Photo Checker Relationship Specialty Start Date End Date None, Provider PCP - General 04/02/15 02/12/19 Serafin Saucedo MD [address] [place] [address] [phone] PCP - General 02/13/19 04/25/20 documented as of this encounter
--- OUTSIDE RECORDS SUMMARY | 2024-05-25 12:49 | XMS_ITS | Encounter Summary ---
Author Organization [facility] Address [address] [place] [address] Care Team Providers Care Director Of Product Management Name Role Phone None, Provider Primary Care Provider Serafin Zapata MD Primary Care Provider Encounter Details Date Type Department Care Team (Late st Contact Info) Description 08/05/2016 Historical Results Only [facility] - Main [place] [address] [place] [address] Venecia Vega MD [address] [place], [place] [address]B [facility] [address] [address] Social History Tobacco Use Types [...] EDT Telemedicine [facility] Rheumatology [address] [place] [phone] Venecia Vega MD [address] [place] [address] [phone] documented as of this encounter [...] 3.5 3.4 - 5.0 g/dL 08/05/2016 11:17 [facility] ALKALINE PHOSPHATASE - [facility] 94 41 - 126 U/L 08/05/2016 11:17 [facility] BILIRUBIN TOTAL 0.3 0.0 - 1.0 mg/dL 08/05/2016 11:17 [facility] TOTAL PROTEIN - [facility] 7.1 6.4 - 8.2 gm/dl 08/05/2016 11:17 [facility] SGOT/AST - [facility] 20 10 - 37 U/L 08/05/2016 11:17 [facility] SGPT/ALT - [facility] 42 12 - 78 U/L 08/05/2016 11:17 [facility] BILIRUBIN DIRECT - [facility] 0.1 0.0 - 0.2 mg/dL 08/05/2016 11:17 [facility] 08/05/2016 9:27 EST 08/05/2016 9:27 EST Narrative [facility] - 08/05/2016 11:17 EST Does PT Have a Latex Allergy? NO us Venecia Vega MD CHEMISTRY & BLOOD GAS OR DERABLES Final Result [facility] * CREATININE (08/05/2016 9:27 EST) CREATININE 0.86 0.5 - 1.3 mg/dL 08/05/2016 11:17 [facility] eGFR >60 08/05/2016 11:17 [facility] Comment: Chronic renal impairment is defined as GFR <60 Multiply result by 1.210 for patients. eGFR calculated using the IDMS-traceable MDRD Study Equation. ??(effective 05/07/2014) 08/05/2016 9:27 EST 08/05/2016 9:27 EST Narrative [facility] - 08/05/2016 11:17 EST Does PT Have a Latex Allergy? NO Venecia Vega MD CHEMISTRY & BLOOD GAS OR DERABLES Final Result [facility] * (ABNORMAL) C REACTIVE PROTEIN (08/05/2016 9:27 EST) [facility] SED RATE [facility] 52(H) 1 - 17 mm/hr 08/05/2016 10:47 EST [facility] 08/05/2016 9:27 EST 08/05/2016 9:27 EST Narrative [facility] - 08/05/2016 10:47 EST Does PT Have a Latex Allergy? NO Venecia Vega MD CHEMISTRY & BLOOD GAS OR DERABLES Final Result [facility] documented in this encounter Visit Diagnoses Not on filedocumented in this encounter Care Teams Director Of Product Management Relationship Specialty Start Date End Date None, Provider PCP - General 04/02/15 02/12/19 Serafin Saucedo MD [address] [place] [address] [phone] PCP - General 02/13/19 04/25/20 documented as of this encounter
--- OUTSIDE RECORDS SUMMARY | 2024-05-25 12:49 | XMS_ITS | Encounter Summary ---
Author Organization [facility] Address [address] [place] [address] Care Team Providers Care Lower In Supervisor Name Role Phone None, Provider Primary Care Provider Serafin Zapata MD Primary Care Provider [phone]- [phone] Encounter Details Date Type Department Care Team (Late st Contact Info) Description 07/20/2016 Historical Results Only [facility] Lab - Main [place] [address] [place] [address] Venecia Vega MD [address] [place], [place] [address] [address] [phone] Social History Tobacco Use Types [...] Info) Description 09/21/2024 8:15 EDT Telemedicine [facility] Rheumatology [address] [place] [address] [phone] Venecia Vega MD [address] [place] [address] [phone] documented as of this encounter Procedures Procedure Name Priority Date/Time Associated Diagnosis Comments SYNOVIAL FLD CC/DIFF - [facility] Routine 07/20/2016 14:45 EST documented in this encounter Results * (ABNORMAL) SYNOVIAL FLD CC/DIFF - CV (07/20/2016 14:45 EST) SYNOVIAL FLD LYMPHOCYTE - CV 10 % 07/20/2016 16:[address] [facility] SYNOVIAL FLD MONOCYTE - [facility] 10 % 07/20/2016 16:11 [facility] SYNOVIAL FLD SOURCE - CV LEFT KNEE 07/20/2016 15:[address] [facility] SYNOVIAL FLD POLY - CV 80 % 07/20/2016 16:11 [facility] SYNOVIAL FLD WBC - CV 33,640(H) 0 - 200 /ul 07/20/2016 15:44 [facility] Comment: 07/20/2016 14:4 5 EST 07/20/2016 15:06 EST us Venecia Vega MD CHEMISTRY & BLOOD GAS OR DERABLES Final Result [facility] documented in this encounter Visit Diagnoses Not on filedocumented in this encounter Care Teams Lower In Supervisor Relationship Specialty Start Date End Date None, Provider PCP - General 04/02/15 02/12/19 Serafin Saucedo MD [address] [place] [address] [phone] PCP - General 02/13/19 04/25/20 documented as of this encounter
--- OUTSIDE RECORDS SUMMARY | 2024-05-25 12:49 | XMS_ITS | Encounter Summary ---
Author Organization [facility] Address [address] [place] [address] Care Team Providers Care Electron Beam Welding Machine Operator Name Role Phone None, Provider Primary Care Provider Serafin Zapata MD Primary Care Provider Encounter Details Date Type Department Care Team (Late st Contact Info) Description 08/25/2017 Historical Results Only [facility] Radiology Results [address] [place], [place] [phone] Serafin Saucedo MD [address] [place] [phone] Social History Tobacco Use Types Packs/Day [...] Contact Info) Description 09/21/2024 8:15 EDT Telemedicine [facility] Rheumatology [address] [place] [address] Venecia Vega MD [address] [facility] [address] [place] [address] documented as [...] CC: ? Transcribed Date/Time: 08/25/2017 (1012) ? Pressure Control Supervisor: ? Printed Date/Time: 12/22/2018 (2255) ? PAGE 1 ? Signed Report ? [...] Griffin MD CC: Transcribed Date/Time: 08/25/2017 (1012) Pressure Control Supervisor: Printed Date/Time: 12/22/2018 (3159) PAGE 1 Signed Report Serafin Saucedo MD IMG US ORDERABLES Final Res ult documented in this encounter Visit Diagnoses Not on filedocumented in this encounter Care Teams Electron Beam Welding Machine Operator Relationship Specialty Start Date End Date None, Provider PCP - General 04/02/15 02/12/19 Serafin Saucedo MD [address] [place] [address] [phone] PCP - General 02/13/19 04/25/20 documented as of this encounter
--- OUTSIDE RECORDS SUMMARY | 2024-05-25 12:49 | XMS_ITS | Encounter Summary ---
Author Organization [facility] Address [address] [place] [address] Care Team Providers Care Order Department Supervisor Name Role Phone None, Provider Primary Care Provider Serafin Zapata MD Primary Care Provider [phone]- [phone] Encounter Details Date Type Department Care Team (Late st Contact Info) Description 11/11/[address] [facility] Radiology Results [address] [place] [address] Arlyn Curiel PA-C [address] [place] [phone] Social History Tobacco Use Types Packs/Day Years [...] Description 09/21/2024 8:[address] [facility] Rheumatology [address] [place] [address] Venecia Vega MD [address] [facility] [address] [place] [address] documented as of this encounter [...] CC: ? Transcribed Date/Time: 11/11/2015 (1522) ? Poultry Raiser: ? Printed Date/Time: 12/15/2018 (2045) ? PAGE [...] Antonio Griffin MD CC: Transcribed Date/Time: 11/11/2015 (1521) Poultry Raiser: Printed Date/Time: 12/15/2018 (2045) PAGE 1 Signed Report us [facility]iel [facility] Final Result documented in this encounter Visit Diagnoses Not on filedocumented in this encounter Care Teams Order Department Supervisor Relationship Specialty Start Date End Date None, Provider PCP - General 04/02/15 02/12/19 Serafin Saucedo MD [address] [place] [address] [phone] PCP - General 02/13/19 04/25/20 documented as of this encounter
--- OUTSIDE RECORDS SUMMARY | 2024-05-25 12:49 | XMS_ITS | Encounter Summary ---
Author Organization [facility] Address [address] [place] [address] Care Team Providers Care Program Advocate Name Role Phone None, Provider Primary Care Provider Serafin Zapata MD Primary Care Provider [phone]- [phone] Encounter Details Date Type Department Care Team (Late st Contact Info) Description 09/22/2016 Historical Results Only [facility] Radiology Results [address] [place] [address] Radha Jacques, BUS GIRL [address] [place] [address] Social History Tobacco Use Types Packs/Day Years [...] EDT Telemedicine [facility] Rheumatology [address] [place], [place] [address] Venecia Vega MD 130 [facility] [address] [place] [address] documented as of this encounter [...] FALL - S39.92XA ? XRAYS DONE AT [facility] ? INDICATION: ??TAILBONE PAIN S/P [...] CC: ? Transcribed Date/Time: 09/22/2016 (0945) ? Chief Substation Operator: ? Printed Date/Time: 12/17/2018 (0945) ? PAGE 1 ? Signed Report ? Procedure Note Trevor Olguin E - 05/10/2019 EXAM: RADIOLOGY [facility] XR EX. D/ (0935) CLINICAL INFORMATION: TAILBONE PAIN S/P FALL - S39.92XA XRAYS DONE AT [facility] INDICATION: TAILBONE PAIN S/P FALL [...] Olguin MD CC: Transcribed Date/Time: 09/22/2016 (0945) Chief Substation Operator: Printed Date/Time: 12/17/2018 (0945) PAGE 1 Signed Report Radha Jacques BUS GIRL IMG DIAGNOSTIC IMAGING ORDERA BLES Final Result documented in this encounter Visit Diagnoses Not on filedocumented in this encounter Care Teams Program Advocate Relationship Specialty Start Date End Date None, Provider PCP - General 04/02/15 02/12/19 Serafin Saucedo MD [address] [place] [phone] PCP - General 02/13/19 04/25/20 documented as of this encounter
--- OUTSIDE RECORDS SUMMARY | 2024-05-25 12:49 | XMS_ITS | Encounter Summary ---
Author Organization [facility] Address [address] [place] [address] Care Team Providers Care Anodic Treater Name Role Phone None, Provider Primary Care Provider Unavailabl e Encounter Details Date Type Department Care Team (Latest Contact Info) Description 04/10/2016 12:12 EDT - 04/10/2016 23:59 EDT Hospital Encounter [address] [address] Unknown, Provider, Discharge Disposition: Home or Self [...] Contact Info) Description 09/21/2024 8:15 EDT Telemedicine [facility] Rheumatology [address] [place], [place] [phone] Venecia Vega MD 130 [facility] [address] [place] [phone] documented as of this encounter Visit Diagnoses Not on filedocumented in this encounter Care Teams Anodic Treater Relationship Specialty Start Date End Date None, Provider PCP - General 04/02/15 02/12/19 documented as of this encounter
--- OUTSIDE RECORDS SUMMARY | 2024-05-25 12:49 | XMS_ITS | Encounter Summary ---
Author Organization [facility] Address [address] [place] [address] Care Team Providers Care Vamp Cut Out Worker Name Role Phone None, Provider Primary Care Provider Unavailabl e Encounter Details Date Type Department Care Team (Latest Contact Info) Description 12/31/2015 11:50 EDT - 12/31/2015 23:59 EDT Hospital Encounter [address] [address] Unknown, Provider, Discharge Disposition: Home or Self [...] Code Departure Means Destination Home or Self [facility] documented in this encounter Plan of Treatment Upcoming Encounters Date Type Department Care Team (Late st Contact Info) Description 09/21/2024 8:15 EDT Telemedicine [facility] Rheumatology [address] [place], [place] [phone] Venecia Vega MD 130 [facility] [address] [place] [phone] documented as of this encounter Visit Diagnoses Not on filedocumented in this encounter Care Teams Vamp Cut Out Worker Relationship Specialty Start Date End Date None, Provider PCP - General 04/02/15 02/12/19 documented as of this encounter
--- OUTSIDE RECORDS SUMMARY | 2024-05-25 12:49 | XMS_ITS | Encounter Summary ---
Author Organization [facility] Address [address] [place] [address] Care Team Providers Care Test Director Name Role Phone None, Provider Primary Care Provider Serafin Zapata MD Primary Care Provider [phone]- [phone] Encounter Details Date Type Department Care Team (Late st Contact Info) Description 10/23/[address] [facility] Radiology Results [address] [place], [place] [id number] Serafin Saucedo MD [address] [place] [phone] Social History Tobacco Use Types Packs/Day [...] [facility] Rhe[facility] [address] [place] [address] Venecia Vega MD 130 [facility] [address] [place] [address] documented as of this encounter [...] CC: ? Transcribed Date/Time: 10/23/2016 (1825) ? Grounding Engineer: ? Printed Date/Time: 12/17/2018 (5745) ? PAGE 2 ? Signed Report ? Procedure Note Vasiliy Scott MD - 05/10/2019 EXAM: CAT SCAN/ABDOMEN WITH CONTRAST EX. D/ (4857) CLINICAL INFORMATION: K76.89 LIVER NODULE, 2.5cm MRI [...] Vasiliy Scott MD CC: Transcribed Date/Time: 10/23/2016 (9665) Grounding Engineer: [email or web address] Printed Date/Time: 12/17/2018 (7528) PAGE 2 Signed Report us Serafin Saucedo MD IMG MRI ORDERABLES Final Re sult documented in this encounter Visit Diagnoses Not on filedocumented in this encounter Care Teams Test Director Relationship Specialty Start Date End Date None, Provider PCP - General 04/02/15 02/12/19 Serafin Saucedo MD [address] [place] [phone] PCP - General 02/13/19 04/25/20 documented as of this encounter
--- OUTSIDE RECORDS SUMMARY | 2024-05-25 12:49 | XMS_ITS | Encounter Summary ---
Author Organization [facility] Address [address] [place] [address] Care Team Providers Care District Court Judge Name Role Phone None, Provider Primary Care Provider Serafin Zapata MD Primary Care Provider [phone]- [phone] Encounter Details Date Type Department Care Team (Late st Contact Info) Description 06/06/2016 Historical Results Only [facility] Lab - Main [place] [address] [place] [address] Venecia Vega MD [address] [place], [place] [address] [facility] [address] [phone] Social History Tobacco Use Types [...] Contact Info) Description 09/21/2024 8:15 EDT Telemedicine [facility] Rheumatology [address] [place] [phone] Venecia Vega MD [address] [place], [place] [address] [address] [phone] documented as of this encounter Procedures Procedure Name Priority Date/Time Associated Diagnosis Comments C REACTIVE PROTEIN Routine 06/06/2016 9:38 EST C REACTIVE PROTEIN Routine 06/06/2016 9:38 EST documented in this encounter Results * (ABNORMAL) C REACTIVE PROTEIN (06/06/2016 9:38 EST) [facility] C-Reactive Protein 28.1(H) 0.0 - 3.0 mg/L 06/06/2016 10:33 EST [facility] 06/06/2016 9:38 EST 06/06/2016 9:39 EST Narrative [facility] - 06/06/2016 10:33 EST Does PT Have a Latex Allergy? NO us Venecia Vega MD CHEMISTRY & BLOOD GAS OR DERABLES Final Result Performing Organization Address City/[facility]/ZIP Co de Phone Number [facility] * (ABNORMAL) C REACTIVE PROTEIN (06/06/2016 9:38 EST) [facility] SED RATE - [facility] 69(H) 1 - 17 mm/hr 06/06/2016 10:17 EST [facility] 06/06/2016 9:38 EST 06/06/2016 9:39 EST Narrative [facility] - 06/06/2016 10:17 EST Does PT Have a Latex Allergy? NO us Venecia Vega MD CHEMISTRY & BLOOD GAS OR DERABLES Final Result [facility] documented in this encounter Visit Diagnoses Not on filedocumented in this encounter Care Teams District Court Judge Relationship Specialty Start Date End Date None, Provider PCP - General 04/02/15 02/12/19 Serafin Saucedo MD [address] [place] [phone] PCP - General 02/13/19 04/25/20 documented as of this encounter
--- OUTSIDE RECORDS SUMMARY | 2024-05-25 12:49 | XMS_ITS | Encounter Summary ---
Author Organization [facility] Address [address] [place] [address] Care Team Providers Care Food Order Expediter Name Role Phone None, Provider Primary Care Provider Unavailabl e Encounter Details Date Type Department Care Team (Latest Contact Info) Description 01/10/2018 13:17 EDT - 01/10/2018 23:59 EDT Hospital Encounter [address] [address] Unknown, Provider, Discharge Disposition: Home or Self [...] Code Departure Means Destination Home or Self [facility] documented in this encounter Plan of Treatment Upcoming Encounters Date Type Department Care Team (Late st Contact Info) Description 09/21/2024 8:15 EDT Telemedicine [facility] Rheumatology [address] [place], [place] [address] Venecia Vega MD 130 [facility] [address] [place] [phone] documented as of this encounter Visit Diagnoses Not on filedocumented in this encounter Care Teams Food Order Expediter Relationship Specialty Start Date End Date None, Provider PCP - General 04/02/15 02/12/19 documented as of this encounter
--- OUTSIDE RECORDS SUMMARY | 2024-05-25 12:49 | XMS_ITS | Encounter Summary ---
Author Organization [facility] Address [address] [place] [address] Care Team Providers Care Outside Physical Damage Appraiser Name Role Phone None, Provider Primary Care Provider Serafin Zapata MD Primary Care Provider [phone]- [phone] Encounter Details Date Type Department Care Team (Late st Contact Info) Description 07/27/2016 Historical Results Only [facility] Lab - Main [place] [address] [place] [address] Mary Braswell MD [address] [place] [address], [address] [place] [address] Social History Tobacco Use Types [...] Contact Info) Description 09/21/2024 8:15 EDT Telemedicine [facility] Rheumatology [address] [place] [address] Venecia Vega MD [address] [place], [place] [address] [address] [place] [address] documented as of this encounter Procedures Procedure Name Priority Date/Time Associated Diagnosis Comments [facility] S[facility]EN - [facility] Routine 07/27/2016 8: 30 EST COMPLETE BLOOD COUNT WITH DIFFERENTIAL (AUTO) Routine 07/27/2016 8:30 EST TYPE AND SCREEN Routine 07/27/2016 8:30 EST documented in this encounter Results * [facility] - [facility] (07/27/2016 8:30 EST) [facility] SCREEN - [facility] NEG 07/27/2016 10:47 [facility] 07/27/2016 8:30 EST 07/27/2016 9:33 EST Narrative [facility] - 07/27/2016 10:47 EST Does PT Have a Latex Allergy? NO Enter/Edit CPT and ICD codes? N us Mary Braswell MD HEMATOLOGY & PF4 ORDERABLES Fin al Result [facility] * (ABNORMAL) COMPLETE BLOOD COUNT WITH DIFFERENTIAL (AUTO) (07/27/2016 8:30 EST) ABSOLUTE NEUTROPHIL COUN - [facility] 6.90 1.7 - 7.0 10e3/ul 07/27/2016 10:36 [facility] BASO # - [facility] 0.02 0.0 - 0.3 10e3/uL 07/27/2016 10:36 [facility] BASO % - [facility] 0 0 - 2 % 07/27/2016 10:36 [facility] EOS # - [facility] 0.37 0.05 - 0.5 10e3/uL 07/27/2016 10:36 [facility] EOS % - [facility] 3 0 - 5 % 07/27/2016 10:36 [facility] GRAN % - [facility] 60 40 - 80 % 07/27/2016 10:36 [facility] HEMATOCRIT - [facility] 42.8 34.0 - 47.0 % 07/27/2016 10:36 [facility] HEMOGLOBIN - CV 13.5 11.2 - 15.7 g/dl 07/27/2016 10:36 [facility] IG# - [facility] 0.06 0 - 0.07 10e3/uL 07/27/2016 10:36 [facility] IG% - [facility] 0.5 0 - 0.9 % 07/27/2016 10:36 [facility] LYMPH # - [facility] 3.41(H) 0.9 - 2.9 10e3/uL 07/27/2016 10:36 [facility] LYMPH% - [facility] 30 20 - 40 % 07/27/2016 10:36 [facility] MEAN CORPUSCULAR HGB - [facility] 26.3 26 - 34 pg 07/27/2016 10:36 [facility] MEAN CORPUSCULAR HGB CONC - [facility] 31.5 31 - 36 g/dL 07/27/2016 10:36 [facility] MEAN CELL VOLUME - [facility] 83.3 77 - 100 fl 07/27/2016 10:36 [facility] MONO # - [facility] 0.68 0.3 - 0.9 10e3/uL 07/27/2016 10:36 [facility] MONO% - [facility] 6 0 - 12 % 07/27/2016 10:36 [facility] PLATELET COUNT 505(H) 150 - 400 10e3/ul 07/27/2016 10:36 [facility] RED BLOOD COUNT - [facility] 5.14 3.8 - 5.2 10e6/ul 07/27/2016 10:36 [facility] RED CELL DISTRI WIDTH - [facility] 17.0(H) 11.8 - 15.6 % 07/27/2016 10:36 [facility] WHITE BLOOD COUNT - [facility] 11.4(H) 3.5 - 10.5 10e3/ul 07/27/2016 10:36 [facility] 07/27/2016 8:30 EST 07/27/2016 9:33 [facility] - 07/27/2016 10:36 EST Does PT Have a Latex Allergy? NO us Mary Braswell MD HEMATOLOGY & PF4 ORDERABLES Fin al Result Performing Organization Address City/[facility]/ZIP Co de Phone Number [facility] * TYPE AND SCREEN (07/27/2016 8:30 EST) BLOOD TYPE - [facility] O Positive [facility] Antibody Screen NEGATIVE [facility] Specimen Expires: 07/30/16 2359 [facility] Comment: PATIENT'S RESPONSES INDICATE A HISTORY OF SURGERY, TRANSFUSION OR WITHIN THE LAST 3 MONTHS. FOR BLOOD PRODUCTS, THIS SPECIMEN WILL OUTDATE 72 HOURS FROM THE TIME IT WAS COLLECTED. ??ANY BLOOD PRODUCTS ORDERED AFTER 72 HOURS MUST BE WORKED UP ON A NEW SPECIMEN. 07/27/2016 8:30 EST 07/27/2016 9:33 EST Narrative [facility] - 07/27/2016 9:19 EST Does PT Have a Latex Allergy? NO IS THIS A PREOPERATIVE PATIENT? N Mary Braswell MD BLOOD BANK TESTS Final Result Performing Organization Address [facility] Co de Phone Number [facility] documented in this encounter Visit Diagnoses Not on filedocumented in this encounter Care Teams Outside Physical Damage Appraiser Relationship Specialty Start Date End Date None, Provider PCP - General 04/02/15 02/12/19 Serafin Saucedo MD [address] [place] [phone] PCP - General 02/13/19 04/25/20 documented as of this encounter
--- OUTSIDE RECORDS SUMMARY | 2024-05-25 12:49 | XMS_ITS | Encounter Summary ---
Author Organization [facility] Address [address] [place] [address] Care Team Providers Care Client Administrator Name Role Phone None, Provider Primary Care Provider Serafin Zapata MD Primary Care Provider [phone] Encounter Details Date Type Department Care Team (Late st Contact Info) Description 03/17/2016 Historical Results Only [facility] Radiology Results [address] [place] [address] Matt Moncada MD Social History Tobacco Use [...] Telemedicine [facility] Rheumatology [address] [place], [place] [address] Venecia Vega MD 130 [facility] [address] [place] [phone] documented as of this encounter Procedures Procedure [...] MD ? CC: ? Transcribed Date/Time: 03/17/2016 (2352) ? Vocational School Teacher: ? Printed Date/Time: 12/16/2018 (0731) ? PAGE 1 ? Signed Report ? Procedure Note Cedric Rao MD - 05/10/2019 EXAM: RADIOLOGY/KNEE COMPLETE LT 4+VIEW EX. D/ (2316) CLINICAL INFORMATION: SWELLING/PAIN/EFFUSION EXAM: XR Left Knee [...] Cedric Rao MD CC: Transcribed Date/Time: 03/17/2016 (5912) Vocational School Teacher: Printed Date/Time: 12/16/2018 (8564) PAGE 1 Signed Report Matt Moncada MD IMG DIAGNOSTIC IMAGING ORDERA BLES Final Result * US EXTREMITY (03/17/2016 21:34 EDT) Anatomical Region Laterality Modality Other 03/17/2016 21:3 4 EDT Narrative 03/17/2016 21:35 EDT ? EXAM: ULTRASOUND/DOPPLER VEIN EXTREMITY L EX. D/ (2101) ? CLINICAL INFORMATION: ? SLLL - Swelling [...] CC: ? Transcribed Date/Time: 03/17/2016 (2135) ? Vocational School Teacher: ? Printed Date/Time: 12/16/2018 (0746) ? PAGE 1 ? Signed Report ? Procedure Note Cedric Rao MD - 05/10/2019 EXAM: ULTRASOUND/DOPPLER VEIN EXTREMITY L EX. D/ (210) CLINICAL INFORMATION: SLLL - Swelling left lower [...] Cedric Rao MD CC: Transcribed Date/Time: 03/17/2016 (3769) Vocational School Teacher: Printed Date/Time: 12/16/2018 (3544) PAGE 1 Signed Report us Matt [facility]cada MD [facility] Final Resul t documented in this encounter Visit Diagnoses Not on filedocumented in this encounter Care Teams Client Administrator Relationship Specialty Start Date End Date None, Provider PCP - General 04/02/15 02/12/19 Serafin Saucedo MD [address] [place] [phone] PCP - General 02/13/19 04/25/20 documented as of this encounter
--- OUTSIDE RECORDS SUMMARY | 2024-05-25 12:49 | XMS_ITS | Encounter Summary ---
Author Organization [facility] Address [address] [place] [address] Care Team Providers Care Manager Intern Name Role Phone None, Provider Primary Care Provider Serafin Zapata MD Primary Care Provider [phone] Encounter Details Date Type Department Care Team (Late st Contact Info) Description 10/09/2016 Historical Results Only [facility] Radiology Results [address] [place], [place] [phone] Serafin Saucedo MD [address] [place] [phone] Social History Tobacco Use Types Packs/Day [...] EDT Telemedicine [facility] Rheumatology [address] [place] [address] Venecia Vega MD 130 [facility] [address] [place] [address] documented as of this encounter [...] CC: ? Transcribed Date/Time: 10/09/2016 (1206) ? Sand Buffer: SCR ? Printed Date/Time: 12/17/2018 (0945) ? [...] Mead MD CC: Transcribed Date/Time: 10/09/2016 (1206) Sand Buffer: Printed Date/Time: 12/17/2018 (4898) PAGE 1 Signed Report us Serafin Saucedo MD IMG MRI ORDERABLES Final Re sult documented in this encounter Visit Diagnoses Not on filedocumented in this encounter Care Teams Manager Intern Relationship Specialty Start Date End Date None, Provider PCP - General 04/02/15 02/12/19 Serafin Saucedo MD [address] [place] [phone] PCP - General 02/13/19 04/25/20 documented as of this encounter
--- OUTSIDE RECORDS SUMMARY | 2024-05-25 12:49 | XMS_ITS | Encounter Summary ---
Author Organization [facility] Address [address] [place] [address] Care Team Providers Care Dental Hygienist Mobile Coordinator Name Role Phone None, Provider Primary Care Provider Unavailabl e Encounter Details Date Type Department Care Team (Latest Contact Info) Description 07/28/2016 8:29 EST - 07/28/2016 23:59 EST Hospital Encounter [address] [address], Provider, Discharge Disposition: Home or Self [...] Contact Info) Description 09/21/2024 8:15 EDT Telemedicine [facility] Rheumatology [address] [place] [address] Venecia Vega MD [address] [place] [address] [address] [place] [phone] documented as of this encounter Visit Diagnoses Not on filedocumented in this encounter Care Teams Dental Hygienist Mobile Coordinator Relationship Specialty Start Date End Date None, Provider PCP - General 04/02/15 02/12/19 documented as of this encounter
--- OUTSIDE RECORDS SUMMARY | 2024-05-25 12:49 | XMS_ITS | Encounter Summary ---
Author Organization [facility] Address [address] [place] [address] Care Team Providers Care Denture Processor Name Role Phone None, Provider Primary Care Provider Serafin Zapata MD Primary Care Provider [phone] Encounter Details Date Type Department Care Team (Late st Contact Info) Description 09/29/2016 Historical Results Only [facility] Lab - Main [place] [address] [place] [phone] Serafin Saucedo MD [address] [place] [phone] Social History Tobacco Use Types Packs/Day [...] 8:15 EDT Telemedicine [facility] Rheumatology [address] [place] [phone] Venecia Vega MD [address] [place] [address] [address] [place] [phone] documented as of this encounter Procedures Procedure Name Priority Date/Time Associated Diagnosis Comments CREATININE Routine 09/29/2016 10:24 EDT documented in this encounter Results * CREATININE (09/29/2016 10:24 EDT) CREATININE 0.98 0.5 - 1.3 mg/dL 09/29/2016 16:10 EDT [facility] eGFR >60 09/29/2016 16:10 EDT [facility] Comment: Chronic renal impairment is defined as GFR <60 Multiply result by 1.210 for patients. eGFR calculated using the IDMS-traceable MDRD Study Equation. ??(effective 05/07/2014) 09/29/2016 10:2 4 EDT 09/29/2016 15:14 EDT us Serafin Saucedo MD CHEMISTRY & BLOOD GAS ORDER RAMAN Final Result [facility] documented in this encounter Visit Diagnoses Not on filedocumented in this encounter Care Teams Denture Processor Relationship Specialty Start Date End Date None, Provider PCP - General 04/02/15 02/12/19 Serafin Saucedo MD [address] [place] [phone] PCP - General 02/13/19 04/25/20 documented as of this encounter
--- OUTSIDE RECORDS SUMMARY | 2024-05-25 12:49 | XMS_ITS | Encounter Summary ---
Author Organization [facility] Address [address] [place] [address] Care Team Providers Care Leather Whitener Name Role Phone None, Provider Primary Care Provider Unavailabl e Encounter Details Date Type Department Care Team (Latest Contact Info) Description 08/24/2017 9:15 EST - 08/24/2017 23:59 EST Hospital Encounter [address] [address] Unknown, Provider, Discharge Disposition: Home or Self [...] Telemedicine [facility] Rheumatology [address] [place] [address] Venecia Vega MD [address] [place] [address] [address] [place] [phone] documented as of this encounter Visit Diagnoses Not on filedocumented in this encounter Care Teams Leather Whitener Relationship Specialty Start Date End Date None, Provider PCP - General 04/02/15 02/12/19 documented as of this encounter
--- OUTSIDE RECORDS SUMMARY | 2024-05-25 12:49 | XMS_ITS | Encounter Summary ---
Author Organization [facility] Address [address] [place] [address] Care Team Providers Care Camp Coordinator Name Role Phone None, Provider Primary Care Provider Serafin Zapata MD Primary Care Provider [phone] Encounter Details Date Type Department Care Team (Late st Contact Info) Description 06/04/2017 Historical Results Only [facility] - Main [place] [address] [place] [address] Venecia Vega MD [address] [place], [place] [address]B [facility] [address] [phone] Social History Tobacco Use Types [...] 09/21/2024 8:15 EDT Telemedicine [facility] Rheumatology [address] [place] [address] Venecia Vega MD [address] [place] [address] [address] documented as of this encounter [...] (ABNORMAL) C REACTIVE PROTEIN (06/04/2017 9:11 EST) Pathologist [facility] C-Reactive Protein 12.6(H) <10.0 mg/L 06/04/2017 11:11 [facility] 06/04/2017 9:11 EST 06/04/2017 9:[address] [facility] - 06/04/2017 11:11 EST Does PT Have a Latex Allergy? NO us Venecia Vega MD CHEMISTRY & BLOOD GAS OR DERABLES Final Result [facility] * (ABNORMAL) COMPREHENSIVE METABOLIC PANEL (CMP) (06/04/2017 9:11 EST) Pathologist [facility] Albumin % 4.1 3.4 - 4.9 g/dL 06/04/2017 11:11 [facility] ALKALINE PHOSPHATASE - [facility] [place] 73 38 - 126 U/L 06/04/2017 11:11 [facility] BILIRUBIN TOTAL 0.5 0.2 - 1.3 mg/dL 06/04/2017 11:11 [facility] BUN - [facility] [place] 11 10 - 26 mg/dL 06/04/2017 11:11 [facility] CALCIUM - [facility] [place] 9.4 8.5 - 10.5 mg/dL 06/04/2017 11:11 [facility] Chloride 100 96 - 110 mmol/L 06/04/2017 11:11 [facility] CO2 Total 27 22 - 32 mEq/L 06/04/2017 11:11 [facility] CREATININE 0.71 0.52 - 1.04 mg/dL 06/04/2017 11:11 [facility] eGFR >60 06/04/2017 11:11 [facility] Comment: Chronic renal impairment is defined as GFR <60 Multiply result by 1.210 for patients. eGFR calculated using the IDMS-traceable MDRD Study Equation. ??(effective 05/07/2014) Anion Gap 12 5 - 15 06/04/2017 11:11 [facility] GLUCOSE - [facility] [place] 78 70 - 100 mg/dL 06/04/2017 11:11 [facility] Potassium 3.9 3.5 - 5.0 mEq/L 06/04/2017 11:11 [facility] Sodium 139 136 - 145 mEq/L 06/04/2017 11:11 [facility] TOTAL PROTEIN - [facility] [place] 7.4 6.2 - 8.2 gm/dL 06/04/2017 11:11 [facility] SGOT/AST - [facility] [place] 44(H) 14 - 36 U/L 06/04/2017 11:11 [facility] SGPT/ALT - [facility] [place] 59(H) 9 - 52 U/L 7 11:11 [facility] 06/04/2017 9:11 EST 06/04/2017 9:[address] [facility] - 06/04/2017 11:11 EST Does PT Have a Latex Allergy? NO us Venecia Vega MD CHEMISTRY & BLOOD GAS OR DERABLES Final Result [facility] * LYME AB (06/04/2017 9:11 EST) Lyme Ab IgG NEGATIVE 06/04/2017 14:53 [facility] Lyme Ab POSITIVE 06/04/2017 14:53 [facility] Comment:Reflex to [place] has been ordered. 06/04/2017 9:11 EST 06/04/2017 9:11 EST Narrative [facility] - 06/04/2017 14:53 EST Does PT Have a Latex Allergy? NO us Venecia Vega MD IMMUNOLOGY AND SEROLOGY ORDERABLES Final Result [facility] * (ABNORMAL) C REACTIVE PROTEIN (06/04/2017 9:11 EST) Pathologist [facility] SED RATE - [facility] 35(H) 1 - 17 mm/hr 06/04/2017 9:40 [facility] 06/04/2017 9:11 EST 06/04/2017 9:11 EST Narrative [facility] - 06/04/2017 9:40 EST Does PT Have a Latex Allergy? NO us Venecia Vega MD CHEMISTRY & BLOOD GAS OR DERABLES Final Result Performing Organization Address [facility]/ZIP Co de Phone Number [facility] * (ABNORMAL) COMPLETE BLOOD COUNT WITH DIFFERENTIAL (AUTO) (06/04/2017 9:11 EST) Pathologist [facility] ABSOLUTE NEUTROPHIL COUN - [facility] 4.15 1.7 - 7.0 10e3/ul 06/04/2017 9:36 [facility] BASO # - [facility] 0.03 0.0 - 0.3 10e3/uL 06/04/2017 9:36 [facility] BASO % - [facility] 0 0 - 2 % 06/04/2017 9:36 [facility] EOS # - [facility] 0.35 0.05 - 0.5 10e3/uL 06/04/2017 9:36 [facility] EOS % - [facility] 4 0 - 5 % 06/04/2017 9:36 [facility] GRAN % - [facility] 44 40 - 80 % 06/04/2017 9:36 [facility] HEMATOCRIT - [facility] 41.4 34.0 - 47.0 % 06/04/2017 9:36 [facility] HEMOGLOBIN - [facility] 13.6 11.2 - 15.7 g/dl 06/04/2017 9:36 [facility] IG# - [facility] 0.03 0 - 0.07 10e3/uL 06/04/2017 9:36 [facility] IG% - [facility] 0.3 0 - 0.9 % 06/04/2017 9:36 [facility] LYMPH # - [facility] 4.29(H) 0.9 - 2.9 10e3/uL 06/04/2017 9:36 [facility] LYMPH% - [facility] 45(H) 20 - 40 % 06/04/2017 9:36 [facility] MEAN CORPUSCULAR HGB - CV 28.8 26 - 34 pg 06/04/2017 9:36 [facility] MEAN CORPUSCULAR HGB CONC - [facility] [place] 32.9 31 - 36 g/dL 06/04/2017 9:36 [facility] MEAN CELL VOLUME - [facility] [place] 87.7 77 - 100 fl 06/04/2017 9:36 [facility] MONO # - [facility] 0.69 0.3 - 0.9 10e3/uL 06/04/2017 9:36 [facility] MONO% - [facility] 7 0 - 12 % 06/04/2017 9:36 [facility] PLATELET COUNT 441(H) 150 - 400 10e3/ul 06/04/2017 9:36 [facility] RED BLOOD COUNT - [facility] [place] 4.72 3.8 - 5.2 10e6/ul 06/04/2017 9:36 [facility] RED CELL DISTRI WIDTH - [facility] [place] 13.7 11.8 - 15.6 % 06/04/2017 9:36 [facility] WHITE BLOOD COUNT - [facility] [place] 9.5 3.5 - 10.5 10e3/ul 06/04/2017 9:36 [facility] 06/04/2017 9:11 EST 06/04/2017 9:11 [facility] - 06/04/2017 9:40 EST Does PT Have a Latex Allergy? NO Venecia Vega MD HEMATOLOGY & PF4 ORDERAB LES Final Result [facility] * LYME IMMUNOBLOT CONFIRMATION (06/04/2017 9:11 EST) Lyme IGG Bands SEE COMMENTS () kDa 06/08/20 17 21:08 [facility] Comment:No bands detected. Lyme IGM Band(s) p23 () kDa 06/08/20 17 21:08 [facility] Lyme IgM ImmunoBlot Negative () 06/08/2017 21:08 [facility] Comment:Reference Range: Neg ative Lyme Immunoblot Interpretation SEE COMMENTS () 06/08/2017 21:08 [facility] Comment: Specific serologic response to [...] blot are positive. Test Performed by: [place] [address] Assistant Front End Manager: Navdeep Madera MD , Ph D Lyme IGG ImmunoBlot Negative () 06/08/2017 21:08 EST [facility] Comment:Reference Range: Neg ative 06/04/2017 9:11 EST 06/04/2017 9:11 EST us Venecia Vega MD IMMUNOLOGY AND SEROLOGY ORDERABLES Final Result Performing Organization Address City/[facility]/ZIP Co de Phone Number [facility] documented in this encounter Visit Diagnoses Not on filedocumented in this encounter Care Teams Camp Coordinator Relationship Specialty Start Date End Date None, Provider PCP - General 04/02/15 02/12/19 Serafin Saucedo MD [address] [place] [phone] PCP - General 02/13/19 04/25/20 documented as of this encounter
--- OUTSIDE RECORDS SUMMARY | 2024-05-25 12:49 | XMS_ITS | Encounter Summary ---
Author Organization [facility] Address [address] [place] [address] Care Team Providers Care Inventory Administrator Name Role Phone None, Provider Primary Care Provider Serafin Zapata MD Primary Care Provider [phone]- [phone] Encounter Details Date Type Department Care Team (Late st Contact Info) Description 08/05/2016 Historical Results Only [facility] - Main [place] [address] [place] [address] Venecia Vega MD [address] [place], [place] [address]B [facility] [address] [address] Social History Tobacco Use Types [...] Contact Info) Description 09/21/2024 8:15 EDT Telemedicine [facility] Rheumatology [address] [place] [phone] Venecia Vega MD [address] [place] [address] [address] documented as of this encounter Procedures Procedure Name Priority Date/Time Associated Diagnosis Comments COMPLETE BLOOD COUNT WITH DIFFERENTIAL (AUTO) Routine 08/05/2016 9:27 EST documented in this encounter Results * (ABNORMAL) COMPLETE BLOOD COUNT WITH DIFFERENTIAL (AUTO) (08/05/2016 9:27 EST) ABSOLUTE NEUTROPHIL COUN - [facility] 6.78 1.7 - 7.0 10e3/ul 08/05/2016 10:39 [facility] BASO # - [facility] 0.03 0.0 - 0.3 10e3/uL 08/05/2016 10:39 [facility] BASO % - [facility] 0 0 - 2 % 08/05/2016 10:39 [facility] EOS # - [facility] 0.31 0.05 - 0.5 10e3/uL 08/05/2016 10:39 [facility] EOS % - [facility] 3 0 - 5 % 08/05/2016 10:39 [facility] GRAN % - [facility] 56 40 - 80 % 08/05/2016 10:39 [facility] HEMATOCRIT - [facility] 41.5 34.0 - 47.0 % 08/05/2016 10:39 [facility] HEMOGLOBIN - [facility] 13.0 11.2 - 15.7 g/dl 08/05/2016 10:39 [facility] IG# - [facility] 0.04 0 - 0.07 10e3/uL 08/05/2016 10:39 [facility] IG% - [facility] 0.3 0 - 0.9 % 08/05/2016 10:39 [facility] LYMPH # - [facility] 4.10(H) 0.9 - 2.9 10e3/uL 08/05/2016 10:39 [facility] LYMPH% - [facility] 34 20 - 40 % 08/05/2016 10:39 [facility] MEAN CORPUSCULAR HGB - [facility] 26.7 26 - 34 pg 08/05/2016 10:39 [facility] MEAN CORPUSCULAR HGB CONC - [facility] 31.3 31 - 36 g/dL 08/05/2016 10:39 [facility] MEAN CELL VOLUME - [facility] 85.4 77 - 100 fl 08/05/2016 10:39 [facility] MONO # - [facility] 0.89 0.3 - 0.9 10e3/uL 08/05/2016 10:39 EST [facility] MONO% [place] [facility] 7 0 - 12 % 08/05/2016 10:39 [facility] PLATELET COUNT 493(H) 150 - 400 10e3/ul 08/05/2016 10:39 EST [facility] RED BLOOD COUNT [place] [facility] 4.86 3.8 - 5.2 10e6/ul 08/05/2016 10:39 EST [facility] RED CELL DISTRI WIDTH - [facility] 18.0(H) 11.8 - 15.6 % 08/05/2016 10:39 [facility] WHITE BLOOD COUNT - [facility] 12.2(H) 3.5 - 10.5 10e3/ul 08/05/2016 10:39 [facility] 08/05/2016 9:27 EST 08/05/2016 9:27 EST Narrative [facility] - 08/05/2016 10:47 EST Does PT Have a Latex Allergy? NO us Venecia Vega MD HEMATOLOGY & PF4 ORDERAB LES Final Result [facility] documented in this encounter Visit Diagnoses Not on filedocumented in this encounter Care Teams Inventory Administrator Relationship Specialty Start Date End Date None, Provider PCP - General 04/02/15 02/12/19 Serafin Saucedo MD [address] [place] [phone] PCP - General 02/13/19 04/25/20 documented as of this encounter
--- OUTSIDE RECORDS SUMMARY | 2024-05-25 12:49 | XMS_ITS | Encounter Summary ---
Author Organization [facility] Address [address] [place] [address] Care Team Providers Care Film Or Videotape Editor Name Role Phone None, Provider Primary Care Provider Serafin Zapata MD Primary Care Provider [phone]- [phone] Encounter Details Date Type Department Care Team (Late st Contact Info) Description 03/10/2016 Historical Results Only [facility] Radiology Results [address] [place] [address] Mary Braswell MD [address] [place], [place] [address], [address] [place] [address] Social History Tobacco Use Types [...] Contact Info) Description 09/21/2024 8:15 EDT Telemedicine [facility] Rheumatology [address] [place] [address] Ven[facility] Vega MD [address] [facility] [address] [place] [address] documented as of this [...] report. ??Report also available in PACS. ? TRAILER CHIEF:cristina ?Reported By: Luis Antonio Griffin MD ? CC: ? Transcribed Date/Time: 03/11/2016 (1611) ? Lace Weaver: LM ? Printed Date/Time: 12/16/2018 (0745) ? PAGE 1 ? Signed Report ? Procedure Note Luis Antonio Griffin MD - 05/10/2019 EXAM: ULTRASOUND/TRANSABDOMINAL OB LIMITE EX. D/ (1325) CLINICAL INFORMATION: F/U LOW LYING PLACENTA Z33.1 See attached report. Report also available in PACS. TRAILER CHIEF:cristina Reported By: Luis Antonio Griffin MD CC: Transcribed Date/Time: 03/11/2016 (1611) Lace Weaver: LM Printed Date/Time: 12/16/2018 (6061) PAGE 1 Signed Report us Mary Braswell MD IMG OB ORDERABLES Final Resu lt documented in this encounter Visit Diagnoses Not on filedocumented in this encounter Care Teams Film Or Videotape Editor Relationship Specialty Start Date End Date None, Provider PCP - General 04/02/15 02/12/19 Serafin Saucedo MD [address] [place] [phone] PCP - General 02/13/19 04/25/20 documented as of this encounter
--- OUTSIDE RECORDS SUMMARY | 2024-05-25 12:49 | XMS_ITS | Encounter Summary ---
Author Organization [facility] Address [address] [place] [address] Care Team Providers Care Pipeline Controller Name Role Phone None, Provider Primary Care Provider Unavailabl e Encounter Details Date Type Department Care Team (Latest Contact Info) Description 09/30/2015 9:13 EDT - 09/30/2015 23:59 EDT Hospital Encounter [address] [address] Unknown, Provider, Discharge Disposition: Home or Self [...] Code Departure Means Destination Home or Self Long-Term documented in this encounter Plan of Treatment Upcoming Encounters Date Type Department Care Team (Late st Contact Info) Description 09/21/2024 8:15 EDT Telemedicine [facility] Rheumatology [address] [place], [place] [address] Venecia Vega MD [address] [facility] [address] [place] [phone] documented as of this encounter Visit Diagnoses Not on filedocumented in this encounter Care Teams Pipeline Controller Relationship Specialty Start Date End Date None, Provider PCP - General 04/02/15 02/12/19 documented as of this encounter
--- OUTSIDE RECORDS SUMMARY | 2024-05-25 12:49 | XMS_ITS | Encounter Summary ---
Author Organization [facility] Address [address] [place] [address] Care Team Providers Care Nib Inspector Name Role Phone None, Provider Primary Care Provider Serafin Zapata MD Primary Care Provider [phone]- [phone] Encounter Details Date Type Department Care Team (Late st Contact Info) Description 05/27/2016 Historical Results Only [facility] - Main [place] [address] [place] [phone] Serafin Saucedo MD [address] [place] [phone] Social History Tobacco Use Types Packs/Day [...] Contact Info) Description 09/21/2024 8:15 EDT Telemedicine [facility] Rheumatology [address] [place] [phone] Venecia Vega MD [address] [place] [address] [address] [place] [address] documented as of this encounter Procedures Procedure Name Priority Date/Time Associated Diagnosis Comments CYCLIC CITRULLINATED PEPTIDE Routine 05/27/2016 15:16 EST ANTI NUCLEAR AB (FRANCESCO), IFA Routine 05/27/2016 15:16 EST documented in this encounter Results * ANTI NUCLEAR ANTIBODY (05/27/2016 15:16 EST) Antinuclear Ab, S <1:80 <1:80 06/02/2016 13:53 EST [facility] 05/27/2016 15:1 6 EST 05/27/2016 15:16 EST Narrative [facility] - 06/02/2016 13:53 EST Does PT Have a Latex Allergy? NO Serafin Saucedo MD IMMUNOLOGY AND SEROLOGY ORD ERABLES Final Result Performing Organization Address [facility] Co de Phone Number [facility] * CYCLIC CITRULLINATED PEPTIDE - [facility] (05/27/2016 15:16 EST) Cyclic Citrullinated Peptide Ab, S <15.6 () U 05/30/2016 7:13 EST [facility] Comment: REFERENCE VALUE <20.0 (Negative) Test Performed by: [place] [address] Swamper: Singh Small II, M.D., Ph.D. *CP = Citrullinated Peptide 05/27/2016 15:1 6 EST 05/27/2016 15:16 EST Narrative [facility] - 05/30/2016 7:13 EST Does PT Have a Latex Allergy? NO Serafin Saucedo MD CHEMISTRY & BLOOD GAS ORDER RAMNA Final Result Performing Organization Address [facility] Co de Phone Number [facility] documented in this encounter Visit Diagnoses Not on filedocumented in this encounter Care Teams Nib Inspector Relationship Specialty Start Date End Date None, Provider PCP - General 04/02/15 02/12/19 Serafin Saucedo MD [address] [place] [phone] PCP - General 02/13/19 04/25/20 documented as of this encounter
--- OUTSIDE RECORDS SUMMARY | 2024-05-25 12:49 | XMS_ITS | Encounter Summary ---
Author Organization [facility] Address [address] [place] [address] Care Team Providers Care Glass Cut Off Supervisor Name Role Phone None, Provider Primary Care Provider Serafin Zapata MD Primary Care Provider [phone] Encounter Details Date Type Department Care Team (Late st Contact Info) Description 05/13/2016 Historical Results Only [facility] Lab - Main [place] [address] [place] [address] Kellen Turner MD [address] [place], [place] [address]A, [address] [place] [address] Social History Tobacco Use Types [...] Description 09/21/2024 8:15 EDT Telemedicine [facility] Rheumatology [address] [place] [address] Venecia Vega MD [address] [place], [place] [address] [address] [place] [address] documented as of this encounter Procedures Procedure Name Priority Date/Time Associated Diagnosis Comments COMPLETE BLOOD COUNT WITH DIFFERENTIAL (AUTO) Routine 05/13/2016 7:59 EST BLOOD BANK HOLD Routine 05/13/2016 7:59 EST documented in this encounter Results * (ABNORMAL) COMPLETE BLOOD COUNT WITH DIFFERENTIAL (AUTO) (05/13/2016 7:59 EST) ABSOLUTE NEUTROPHIL COUN - [facility] 10.49(H) 1.7 - 7.0 10e3/ul 05/13/2016 8:28 [facility] BASO # - [facility] 0.02 0.0 - 0.3 10e3/uL 05/13/2016 8:28 [facility] BASO % - [facility] 0 0 - 2 % 05/13/2016 8:28 [facility] EOS # - [facility] 0.15 0.05 - 0.5 10e3/uL 05/13/2016 8:28 [facility] EOS % - [facility] 1 0 - 5 % 05/13/2016 8:28 [facility] GRAN % - [facility] 72 40 - 80 % 05/13/2016 8:28 [facility] HEMATOCRIT - [facility] 37.0 34.0 - 47.0 % 05/13/2016 8:28 [facility] HEMOGLOBIN - [facility] 11.7 11.2 - 15.7 g/dl 05/13/2016 8:28 [facility] IG# - [facility] 0.09(H) 0 - 0.07 10e3/uL 05/13/2016 8:28 [facility] IG% - [facility] 0.6 0 - 0.9 % 05/13/2016 8:28 [facility] LYMPH # - [facility] 2.91(H) 0.9 - 2.9 10e3/uL 05/13/2016 8:28 [facility] LYMPH% - [facility] 20 20 - 40 % 05/13/2016 8:28 [facility] MEAN CORPUSCULAR HGB - [facility] 26.2 26 - 34 pg 05/13/2016 8:28 [facility] MEAN CORPUSCULAR HGB CONC - [facility] 31.6 31 - 36 g/dL 05/13/2016 8:28 [facility] MEAN CELL VOLUME [place] [facility] [place] 83.0 77 - 100 fl 05/13/2016 8:28 [facility] MONO # [place] [facility] [place] 0.92(H) 0.3 - 0.9 10e3/uL 05/13/2016 8:28 [facility] MONO% [place] [facility] [place] [place] 6 0 - 12 % 05/13/2016 8:28 [facility] PLATELET COUNT 464(H) 150 - 400 10e3/ul 05/13/2016 8:28 [facility] RED BLOOD COUNT - [facility] [place] 4.46 3.8 - 5.2 10e6/ul 05/13/2016 8:28 [facility] RED CELL DISTRI WIDTH - [facility] [place] 17.0(H) 11.8 - 15.6 % 05/13/2016 8:28 [facility] WHITE BLOOD COUNT [place] [facility] [place] 14.6(H) 3.5 - 10.5 10e3/ul 05/13/2016 8:28 [facility] 05/13/2016 7:59 EST 05/13/2016 8:17 EST Kellen Turner MD HEMATOLOGY & PF4 ORDERABLES F inal Result [facility] * BLOOD BANK HOLD (CLOT) (05/13/2016 7:59 EST) [place] [facility] [place] See Note [facility] Comment: CLOT TO HOLD WILL IN 48 HOURS FROM DATE ?AND TIME OF COLLECTION ?BLOOD BANK HISTORY HAS BEEN CHECKED 05/13/2016 7:59 EST 05/13/2016 8:17 EST us Kellen Turner MD BLOOD BANK TESTS Final Result [facility] documented in this encounter Visit Diagnoses Not on filedocumented in this encounter Care Teams Glass Cut Off Supervisor Relationship Specialty Start Date End Date None, Provider PCP - General 04/02/15 02/12/19 Serafin Saucedo MD [address] [place] [phone] PCP - General 02/13/19 04/25/20 documented as of this encounter
--- OUTSIDE RECORDS SUMMARY | 2024-05-25 12:49 | XMS_ITS | Encounter Summary ---
Author Organization [facility] Address [address] [place] [address] Care Team Providers Care Area Manager Name Role Phone None, Provider Primary Care Provider Serafin Zapata MD Primary Care Provider [phone]- [phone] Encounter Details Date Type Department Care Team (Late st Contact Info) Description 01/10/2018 Historical Results Only [facility] Radiology Results [address] [place] [address] SuiterBianca MD [address] [place] [address] Social History Tobacco Use Types [...] Telemedicine [facility] Rheumatology [address] [place], [place] [address] Venecia Vega MD [address] [facility] [address] [place] [address] documented as of this encounter Procedures Procedure Name Priority Date/Time Associated Diagnosis Comments US PELVIS TRANSVAGINAL COMPLETE 01/10/2018 17:43 EDT documented in this encounter Results * US PELVIS TRANSVAGINAL (01/10/2018 17:43 EDT) Anatomical Region Laterality Modality Pelvis Other 01/10/2018 17:4 3 EDT Narrative 01/10/2018 17:46 EDT ? EXAM: ULTRASOUND/TRANSVAGINAL - HOUSING MANAGEMENT OFFICER W/ DO EX. D/ (1615) ? CLINICAL [...] MD ? CC: ? Transcribed Date/Time: 01/10/2018 (1746) ? [employer]: ? Printed Date/Time: 12/23/2018 (0915) ? PAGE 1 ? Signed Report ? Procedure Note Bong Mead MD - 05/10/2019 EXAM: ULTRASOUND/TRANSVAGINAL - HOUSING MANAGEMENT OFFICER W/ DO EX. D/ (1615) CLINICAL INFORMATION: R10.31 LEFT LOWER QUADRANT PAIN. [...] Bong Mead MD CC: Transcribed Date/Time: 01/10/2018 (1746) [employer]: Printed Date/Time: 12/23/2018 (4092) PAGE 1 Signed Report Bianca Quarles MD [facility] OB ORDERABLES Final Result documented in this encounter Visit Diagnoses Not on filedocumented in this encounter Care Teams Area Manager Relationship Specialty Start Date End Date None, Provider PCP - General 04/02/15 02/12/19 Serafin Saucedo MD [address] [place] [phone] PCP - General 02/13/19 04/25/20 documented as of this encounter
--- OUTSIDE RECORDS SUMMARY | 2024-05-25 12:49 | XMS_ITS | Encounter Summary ---
Author Organization [facility] Address [address] [place] [address] Care Team Providers Care Thread Grinder Name Role Phone None, Provider Primary Care Provider Serafin Zapata MD Primary Care Provider Encounter Details Date Type Department Care Team (Late st Contact Info) Description 12/17/2016 Historical Results Only [facility] - Main [place] [address] [place] [address] [phone] Serafin Saucedo MD [address] [place] [phone] Social History Tobacco Use Types Packs/Day [...] Contact Info) Description 09/21/2024 8:15 EDT Telemedicine [facility] Rheumatology [address] [place] [address] [phone] Venecia Vega MD [address] [place] [address] [address] [place] [phone] documented as of this encounter Procedures Procedure Name Priority Date/Time Associated Diagnosis Comments LYME AB Routine 12/17/2016 9:10 EDT ZZLYME IMMUNOBLOT CONFIRMATION Routine 12/17/2016 9:10 EDT C REACTIVE PROTEIN Routine 12/17/2016 9: 10 EDT BASIC METABOLIC PANEL (BMP) Routine 12/17/2016 9:10 EDT documented in this encounter Results * (ABNORMAL) C REACTIVE PROTEIN (12/17/2016 9:10 EDT) [facility] C-Reactive Protein 7.38(H) 0.0 - 3.0 mg/L 12/17/2016 12:39 EDT [facility] 12/17/2016 9:10 EDT 12/17/2016 11:41 EDT us Serafin Saucedo MD CHEMISTRY & BLOOD GAS ORDER RAMAN Final Result [facility] * (ABNORMAL) BASIC METABOLIC PANEL (BMP) (12/17/2016 9:10 EDT) [facility] BUN - [facility] 6(L) 7 - 18 mg/dL 12/17/2016 12:39 [facility] CALCIUM - [facility] [place] 8.7 8.5 - 10.1 mg/dL 12/17/2016 12:39 [facility] Chloride 106 98 - 107 mEq/L 12/17/2016 12:39 [facility] CO2 Total 27 21 - 32 mEq/L 12/17/2016 12:39 [facility] CREATININE 0.91 0.5 - 1.3 mg/dL 12/17/2016 12:39 [facility] eGFR >60 12/17/2016 12:39 [facility] Comment: Chronic renal impairment is defined as GFR <60 Multiply result by 1.210 for patients. eGFR calculated using the IDMS-traceable MDRD Study Equation. ??(effective 05/07/2014) Anion Gap 8 5 - 15 12/17/2016 12:39 [facility] GLUCOSE - [facility] [place] 104(H) 70 - 100 mg/dL 12/17/2016 12:39 EDT [facility] Potassium 3.8 3.5 - 5.0 mEq/L 12/17/2016 12:39 EDT [facility] Sodium 141 135 - 145 mEq/L 12/17/2016 12:39 EDT [facility] 12/17/2016 9:10 EDT 12/17/2016 11:41 EDT Serafin Saucedo MD CHEMISTRY & BLOOD GAS ORDER RAMAN Final Result [facility] * LYME AB (12/17/2016 9:10 EDT) [facility] Lyme Ab IgG NEGATIVE 12/17/2016 14:53 EDT [facility] Lyme Ab POSITIVE 12/17/2016 14:53 EDT [facility] Comment:Reflex to [place] Bl ot has been ordered. 12/17/2016 9:10 EDT 12/17/2016 11:41 EDT Serafin Saucedo MD IMMUNOLOGY AND SEROLOGY ORD ERABLES Final Result Performing Organization Address City/[facility]/ZIP Co de Phone Number [facility] * LYME IMMUNOBLOT CONFIRMATION (12/17/2016 9:10 EDT) Pathologist [facility] Lyme IGG Bands SEE COMMENTS () kDa 12/19/19 17 21:28 T [facility] Comment:No bands detected. [place] IGM Band(s) p23 () kDa 12/19/19 17 21:28 EDT [facility] Lyme IgM ImmunoBlot Negative () 12/18/2016 21:28 T [facility] Comment:Reference Range: Neg ative [place] Immunoblot Interpretation SEE COMMENTS () 12/18/2016 21:28 [facility] Comment: Specific serologic response to [...] blot are positive. Test Performed by: THE [address] [address] Circus Performer: Navdeep Madera MD , Ph D [place] IGG ImmunoBlot Negative () 12/18/2016 21:28 EDT [facility] Comment:Reference Range: Neg ative 12/17/2016 9:10 EDT 12/17/2016 11:41 EDT Serafin Saucedo MD IMMUNOLOGY AND SEROLOGY ORD ERABLES Final Result [facility] documented in this encounter Visit Diagnoses Not on filedocumented in this encounter Care Teams Thread Grinder Relationship Specialty Start Date End Date None, Provider PCP - General 04/02/15 02/12/19 Serafin Saucedo MD [address] [place] [phone] PCP - General 02/13/19 04/25/20 documented as of this encounter
--- OUTSIDE RECORDS SUMMARY | 2024-05-25 12:49 | XMS_ITS | Encounter Summary ---
Author Organization [facility] Address [address] [place] [address] Care Team Providers Care Lock Corner Machine Operator Name Role Phone None, Provider Primary Care Provider Serafin Zapata MD Primary Care Provider [phone]- [phone] Encounter Details Date Type Department Care Team (Late st Contact Info) Description 12/31/2015 Historical Results Only [facility] Radiology Results [address] [place] [address] Mary Braswell MD [address] [place], [place] [address]A, [address] [place] [address] Social History Tobacco Use Types [...] [facility] Rheumatology [address] [place] [address] Venecia Vega MD [address] [facility] [address] [place] [address] documented as of this encounter [...] report. ??Report also available in PACS. ? COMMUNITY PROGRAM ASSISTANT:cristina ?Reported By: Luis Antonio Griffin MD ? CC: ? Transcribed Date/Time: 01/02/2016 (0957) ? Nursery School Attendant: LM ? Printed Date/Time: 12/15/2018 (2045) ? PAGE 1 ? Signed Report ? Procedure Note Luis Antonio Griffin MD - 05/10/2019 EXAM: ULTRASOUND/OB LEVEL 2 WITH TRANSVAG EX. D/ (1610) CLINICAL INFORMATION: Z34.92 CHECK GROWTH DEVELOPMENT See attached report. Report also available in PACS. COMMUNITY PROGRAM ASSISTANT:cristina Reported By: Luis Antonio Griffin MD CC: Transcribed Date/Time: 01/02/2016 (0957) Nursery School Attendant: LM Printed Date/Time: 12/15/2018 (6546) PAGE 1 Signed Report us Mary Barswell MD IMG OB ORDERABLES Final Resu lt documented in this encounter Visit Diagnoses Not on filedocumented in this encounter Care Teams Lock Corner Machine Operator Relationship Specialty Start Date End Date None, Provider PCP - General 04/02/15 02/12/19 Serafin Saucedo MD [address] [place] [phone] PCP - General 02/13/19 04/25/20 documented as of this encounter
--- OUTSIDE RECORDS SUMMARY | 2024-05-25 12:49 | XMS_ITS | Encounter Summary ---
Author Organization [facility] Address [address] [place] [address] Care Team Providers Care Rug Underlay Machine Operator Name Role Phone None, Provider Primary Care Provider Serafin Zapata MD Primary Care Provider [phone]- [phone] Encounter Details Date Type Department Care Team (Late st Contact Info) Description 07/27/2017 Historical Results Only [facility] - Main [place] [address] [place] [address] Venecia Vega MD [address] [place] [address] [phone] Social History Tobacco Use Types [...] EDT Telemedicine [facility] Rheumatology [address] [place] [address] [phone] Venecia Vega MD [address] [place] [address] [phone] documented as of this encounter Procedures Procedure Name Priority Date/Time Associated Diagnosis Comments COMPREHENSIVE METABOLIC PANEL (CMP) Routine 07/27/2017 7:31 EST documented in this encounter Results * (ABNORMAL) COMPREHENSIVE METABOLIC PANEL (CMP) (07/27/2017 7:31 EST) Albumin % 3.8 3.4 - 4.9 g/dL 07/27/2017 8:10 [facility] ALKALINE PHOSPHATASE - [facility] 79 38 - 126 U/L 07/27/2017 8:10 [facility] BILIRUBIN TOTAL 0.6 0.2 - 1.3 mg/dL 07/27/2017 8:10 [facility] BUN - [facility] 14 10 - 26 mg/dL 07/27/2017 8:10 [facility] CALCIUM - [facility] 9.5 8.5 - 10.5 mg/dL 07/27/2017 8:10 [facility] Chloride 104 96 - 110 mmol/L 07/27/2017 8:10 [facility] CO2 Total 26 22 - 32 mEq/L 07/27/2017 8:10 [facility] CREATININE 0.73 0.52 - 1.04 mg/dL 07/27/2017 8:10 [facility] eGFR >60 07/27/2017 8:10 [facility] Comment: Chronic renal impairment is defined as GFR <60 Multiply result by 1.210 for patients. eGFR calculated using the IDMS-traceable MDRD Study Equation. ??(effective 05/07/2014) Anion Gap 12 0 - 18 07/27/2017 8:10 [facility] GLUCOSE - [facility] 132(H) 70 - 100 mg/dL 07/27/2017 8:10 [facility] Potassium 3.3(L) 3.5 - 5.0 mEq/L 07/27/2017 8:10 [facility] Sodium 142 136 - 145 mEq/L 07/27/2017 8:10 [facility] TOTAL PROTEIN - [facility] 7.2 6.2 - 8.2 gm/dL 07/27/2017 8:10 [facility] SGOT/AST - [facility] 43(H) 14 - 36 U/L 07/27/2017 8:10 [facility] SGPT/ALT - [facility] 62(H) 9 - 52 U/L 8 8:10 EST [facility] 07/27/2017 7:31 EST 07/27/2017 7:31 EST Narrative [facility] - 07/27/2017 8:10 EST Does PT Have a Latex Allergy? NO us Venecia Vega MD CHEMISTRY & BLOOD GAS OR DERABLES Final Result [facility] documented in this encounter Visit Diagnoses Not on filedocumented in this encounter Care Teams Rug Underlay Machine Operator Relationship Specialty Start Date End Date None, Provider PCP - General 04/02/15 02/12/19 Serafin Saucedo MD [address] [place] [phone] PCP - General 02/13/19 04/25/20 documented as of this encounter
--- OUTSIDE RECORDS SUMMARY | 2024-05-25 12:49 | XMS_ITS | Encounter Summary ---
Author Organization [facility] Address [address] [place] [address] Care Team Providers Care Utility Tech Name Role Phone None, Provider Primary Care Provider Serafin Zapata MD Primary Care Provider [phone]- [phone] Encounter Details Date Type Department Care Team (Late st Contact Info) Description 01/07/2018 Historical Results Only [facility] - Main [place] [address] [place] [address] SuiterBianca MD [address] [place] [address] Social History Tobacco Use Types [...] EDT Telemedicine [facility] Rheumatology [address] [place], [place] [phone] Venecia Vega MD [address] [place] [address]-[address] [place] [address] documented as of this encounter Procedures Procedure Name Priority Date/Time Associated Diagnosis Comments COMPLETE BLOOD COUNT WITH DIFFERENTIAL (AUTO) Routine 01/07/2018 15:29 EDT C REACTIVE PROTEIN Routine 01/07/2018 15 :29 EDT COMPREHENSIVE METABOLIC PANEL (CMP) Routine 01/07/2018 15:29 EDT documented in this encounter Results * (ABNORMAL) C REACTIVE PROTEIN (01/07/2018 15:29 EDT) [facility] C-Reactive Protein 12.6(H) <10.0 mg/L 01/07/2018 18:11 [facility] 01/07/2018 15:2 9 EDT 01/07/2018 17:32 EDT iBanca Quarles MD CHEMISTRY & BLOOD GA S ORDERABLES Final Result [facility] * (ABNORMAL) COMPREHENSIVE METABOLIC PANEL (CMP) (01/07/2018 15:29 EDT) [facility] Albumin % 4.3 3.4 - 4.9 g/dL 01/07/2018 18:11 [facility] ALKALINE PHOSPHATASE - [facility] [place] 83 38 - 126 U/L 01/07/2018 18:11 [facility] BILIRUBIN TOTAL 0.4 0.2 - 1.3 mg/dL 01/07/2018 18:11 [facility] BUN - [facility] [place] 9(L) 10 - 26 mg/dL 01/07/2018 18:11 [facility] CALCIUM - [facility] [place] 9.4 8.5 - 10.5 mg/dL 01/07/2018 18:11 [facility] Chloride 102 96 - 110 mmol/L 01/07/2018 18:11 [facility] CO2 Total 25 22 - 32 mEq/L 01/07/2018 18:11 [facility] CREATININE 0.70 0.52 - 1.04 mg/dL 01/07/2018 18:11 [facility] eGFR >60 01/07/2018 18:11 [facility] Comment: Chronic renal impairment is defined as GFR <60 Multiply result by 1.210 for patients. eGFR calculated using the [facility]-traceable MDRD Study Equation. ??(effective 05/07/2014) Anion Gap 11 0 - 18 01/07/2018 18:11 [facility] GLUCOSE - [facility] [place] 91 70 - 100 mg/dL 01/07/2018 18:11 [facility] Potassium 4.2 3.5 - 5.0 mEq/L 01/07/2018 18:11 [facility] Sodium 138 136 - 145 mEq/L 01/07/2018 18:11 [facility] TOTAL PROTEIN - [facility] [place] 8.0 6.2 - 8.2 gm/dL 01/07/2018 18:11 [facility] SGOT/AST - [facility] [place] 49(H) 14 - 36 U/L 01/07/2018 18:11 [facility] SGPT/ALT - [facility] [place] 84(H) 9 - 52 U/L 8 18:11 [facility] 01/07/2018 15:2 9 EDT 01/07/2018 17:32 EDT Bianca Quarles MD CHEMISTRY & BLOOD GA S ORDERABLES Final Result [facility] * (ABNORMAL) COMPLETE BLOOD COUNT WITH DIFFERENTIAL (AUTO) (01/07/2018 15:29 EDT) ABSOLUTE NEUTROPHIL COUN - [facility] [place] 5.39 1.7 - 7.0 10e3/ul 01/07/2018 18:05 EDT [facility] BASO # - [facility] 0.04 0.0 - 0.3 10e3/uL 01/07/2018 18:05 [facility] BASO % - [facility] 0 0 - 2 % 01/07/2018 18:05 [facility] EOS # - [facility] [place] 0.64(H) 0.05 - 0.5 10e3/uL 01/07/2018 18:05 [facility] EOS % - [facility] 6(H) 0 - 5 % 01/07/2018 18:05 [facility] GRAN % - [facility] 48 40 - 80 % 01/07/2018 18:05 [facility] HEMATOCRIT - [facility] 40.9 34.0 - 47.0 % 01/07/2018 18:05 [facility] HEMOGLOBIN - [facility] [place] 13.4 11.2 - 15.7 g/dl 01/07/2018 18:05 [facility] IG# - [facility] 0.02 0 - 0.07 10e3/uL 01/07/2018 18:05 [facility] IG% - [facility] 0.2 0 - 0.9 % 01/07/2018 18:05 [facility] LYMPH # - [facility] 4.36(H) 0.9 - 2.9 10e3/uL 01/07/2018 18:05 [facility] LYMPH% - [facility] 39 20 - 40 % 01/07/2018 18:05 [facility] MEAN CORPUSCULAR HGB - [facility] [place] 28.5 26 - 34 pg 01/07/2018 18:05 [facility] MEAN CORPUSCULAR HGB CONC - [facility] [place] 32.8 31 - 36 g/dL 01/07/2018 18:05 [facility] MEAN CELL VOLUME - [facility] [place] 87.0 77 - 100 fl 01/07/2018 18:05 [facility] MONO # - [facility] 0.84 0.3 - 0.9 10e3/uL 01/07/2018 18:05 [facility] MONO% - [facility] 7 0 - 12 % 01/07/2018 18:05 [facility] PLATELET COUNT 494(H) 150 - 400 10e3/ul 01/07/2018 18:05 [facility] RED BLOOD COUNT - [facility] [place] 4.70 3.8 - 5.2 10e6/ul 01/07/2018 18:05 [facility] RED CELL DISTRI WIDTH - [facility] [place] 14.3 11.8 - 15.6 % 01/07/2018 18:05 [facility] WHITE BLOOD COUNT - [facility] [place] 11.3(H) 3.5 - 10.5 10e3/ul 01/07/2018 18:05 EDT [facility] 01/07/2018 15:2 9 EDT 01/07/2018 17:33 EDT us Bianca Quarles MD HEMATOLOGY & PF4 ORD ERABLES Final Result [facility] documented in this encounter Visit Diagnoses Not on filedocumented in this encounter Care Teams Utility Tech Relationship Specialty Start Date End Date None, Provider PCP - General 04/02/15 02/12/19 Serafin Saucedo MD [address] [place] [phone] PCP - General 02/13/19 04/25/20 documented as of this encounter
--- OUTSIDE RECORDS SUMMARY | 2024-05-25 12:49 | XMS_ITS | Encounter Summary ---
Author Organization [facility] Address [address] [place] [address] Care Team Providers Care Medical Physics Researcher Name Role Phone None, Provider Primary Care Provider Serafin Zapata MD Primary Care Provider [phone]- [phone] Encounter Details Date Type Department Care Team (Late st Contact Info) Description 09/17/2016 Historical Results Only [facility] - Main [place] [address] [place] [address] Venecia Vega MD [address] [place], [place] [address]B [facility] [address] [phone] Social History Tobacco Use Types [...] 8:15 EDT Telemedicine [facility] Rheumatology [address] [place] [address] [phone] Venecia Vega MD [address] [place], [place] [address] [address] [phone] documented as of this encounter [...] Quantiferon Interpretation Negative NEGAT 09/21/2016 13:57 EDT [facility] Comment: Reference Range: Negative Resuls were obtained with the [employer] QuantiFERON-TB Gold DMITRY. Test Performed by: [place] [address] Treater: Navdeep Madera MD , Ph D M.TUBERCULOSIS ANTIGEN - [facility] 0.00 () IU/mL 09/21/2016 13:57 EDT [facility] Comment: This is a qualitative test. [...] 09/17/2016 9:32 EDT 09/17/2016 9:32 EDT Narrative [facility] - 09/21/2016 13:57 EDT Does PT Have a Latex Allergy? NO us Venecia Vega MD CHEMISTRY & BLOOD GAS OR DERABLES Final Result [facility] * HEPATITIS C AB W REFLEX TO HCV RNA BY PCR (09/17/2016 9:31 EDT) HEPATITIS C AB W/REFLEX - [facility] Negative 09/17/2016 11:50 EDT [facility] Comment:Expected Values: Neg ative. 09/17/2016 9:31 EDT 09/17/2016 9:[address] [facility] - 09/17/2016 11:50 EDT Does PT Have a Latex Allergy? NO Enter/Edit CPT and ICD codes? N Venecia Vega MD CHEMISTRY & BLOOD GAS OR DERABLES Final Result [facility] * (ABNORMAL) C REACTIVE PROTEIN (09/17/2016 9:31 EDT) Pathologist [facility] [place] C-Reactive Protein 7.63(H) 0.0 - 3.0 mg/L 09/17/2016 11:05 EDT [facility] 09/17/2016 9:31 EDT 09/17/2016 9:[address] [facility] - 09/17/2016 11:05 EDT Does PT Have a Latex Allergy? NO us Venecia Vega MD CHEMISTRY & BLOOD GAS OR DERABLES Final Result Performing Organization Address [facility] Co de Phone Number [facility] * (ABNORMAL) C REACTIVE PROTEIN (09/17/2016 9:31 EDT) Pathologist [facility] SED RATE - [facility] 22(H) 1 - 17 mm/hr 09/17/2016 10:49 EDT [facility] 09/17/2016 9:31 EDT 09/17/2016 9:[address] [facility] - 09/17/2016 10:49 EDT Does PT Have a Latex Allergy? NO us Venecia Vega MD CHEMISTRY & BLOOD GAS OR DERABLES Final Result Performing Organization Address City/[facility]/ZIP Co de Phone Number [facility] documented in this encounter Visit Diagnoses Not on filedocumented in this encounter Care Teams Medical Physics Researcher Relationship Specialty Start Date End Date None, Provider PCP - General 04/02/15 02/12/19 Serafin Saucedo MD [address] [place] [phone] PCP - General 02/13/19 04/25/20 documented as of this encounter
--- OUTSIDE RECORDS SUMMARY | 2024-05-25 12:49 | XMS_ITS | Encounter Summary ---
Author Organization [facility] Address [address] [place] [address] Care Team Providers Care Production Gear Cutter Name Role Phone None, Provider Primary Care Provider Serafin Zapata MD Primary Care Provider [phone]- [phone] Encounter Details Date Type Department Care Team (Late st Contact Info) Description 11/17/2017 Historical Results Only [facility] - Main [place] [address] [place] [address] Venecia Vega MD [address] [place] [address] [address] Social History Tobacco Use Types [...] 8:15 EDT Telemedicine [facility] Rheumatology [address] [place] [address] [phone] Venecia Vega MD [address] [place] [address] [address] documented as of this encounter Procedures Procedure Name Priority Date/Time Associated Diagnosis Comments COMPLETE BLOOD COUNT AND DIFFERENTIAL Routine 11/17/2017 11:28 EDT COMPREHENSIVE METABOLIC PANEL (CMP) Routine 11/17/2017 11:28 EDT documented in this encounter Results * (ABNORMAL) COMPREHENSIVE METABOLIC PANEL (CMP) (11/17/2017 11:28 EDT) Albumin % 4.2 3.4 - 4.9 g/dL 11/17/2017 12:26 [facility] ALKALINE PHOSPHATASE - [facility] 75 38 - 126 U/L 11/17/2017 12:26 [facility] BILIRUBIN TOTAL 0.5 0.2 - 1.3 mg/dL 11/17/2017 12:26 [facility] BUN - [facility] 13 10 - 26 mg/dL 11/17/2017 12:26 [facility] CALCIUM - [facility] 9.5 8.5 - 10.5 mg/dL 11/17/2017 12:26 [facility] Chloride 99 96 - 110 mmol/L 11/17/2017 12:26 [facility] CO2 Total 25 22 - 32 mEq/L 11/17/2017 12:26 [facility] CREATININE 0.68 0.52 - 1.04 mg/dL 11/17/2017 12:26 [facility] eGFR >60 11/17/2017 12:26 [facility] Comment: Chronic renal impairment is defined as GFR <60 Multiply result by 1.210 for patients. eGFR calculated using the IDMS-traceable MDRD Study Equation. ??(effective 05/07/2014) Anion Gap 13 0 - 18 11/17/2017 12:26 [facility] GLUCOSE - [facility] 89 70 - 100 mg/dL 11/17/2017 12:26 [facility] Potassium 3.5 3.5 - 5.0 mEq/L 11/17/2017 12:26 [facility] Sodium 137 136 - 145 mEq/L 11/17/2017 12:26 [facility] TOTAL PROTEIN - [facility] 7.6 6.2 - 8.2 gm/dL 11/17/2017 12:26 [facility] SGOT/AST - CV 61(H) 14 - 36 U/L 11/17/2017 [facility] - [facility] 99(H) 9 - 52 U/L 8 12:26 [facility] 11/17/2017 11:2 8 EDT 11/17/2017 11:29 EDT [facility] - 11/17/2017 12:26 EDT Does PT Have a Latex Allergy? NO us Venecia Vega MD CHEMISTRY & BLOOD GAS OR DERABLES Final Result [facility] * (ABNORMAL) COMPLETE BLOOD COUNT AND DIFFERENTIAL (11/17/2017 11:28 EDT) ABSOLUTE NEUTROPHIL COUN - CV 4.75 1.7 - 7.0 10e3/ul 11/17/2017 12:55 [facility] BASOPHILS - CV 0.20 0.0 - 0.3 10e3/uL 11/17/2017 12:55 [facility] BANDS - [facility] 3 0 - 3 % 11/17/2017 12:55 [facility] BASOPHIL - [facility] 2 0 - 2 % 8 12:55 [facility] EOS # - CV 0.70(H) 0.05 - 0.5 10e3/uL 11/17/2017 12:55 [facility] EOSINOPHILS - [facility] 7(H) 0 - 5 % 11/17/2017 12:55 [facility] HEMATOCRIT - [facility] 40.5 34.0 - 47.0 % 11/17/2017 11:50 [facility] HEMOGLOBIN - [facility] 13.6 11.2 - 15.7 g/dl 11/17/2017 11:50 [facility] LYMPH # - [facility] 3.83(H) 0.9 - 2.9 10e3/uL 11/17/2017 12:55 [facility] LYMPHOCYTES - CV 38 20 - 40 % 11/17/2017 12:55 [facility] Comment:FEW REACTIVE LYMPHS MEAN CORPUSCULAR HGB - [facility] 29.1 26 - 34 pg 11/17/2017 11:50 [facility] MEAN CORPUSCULAR HGB CONC - [facility] 33.6 31 - 36 g/dL 11/17/2017 11:50 [facility] MEAN CELL VOLUME - [facility] 86.7 77 - 100 fl 11/17/2017 11:50 [facility] MONO # - [facility] 0.60 0.3 - 0.9 10e3/uL 11/17/2017 12:55 [facility] MONOCYTE - [facility] 6 0 - 12 % 8 12:55 [facility] PLATELET COUNT 391 150 - 400 10e3/ul 11/17/2017 11:50 [facility] NEUTROPHILS - [facility] 44 40 - 80 % 11/17/2017 12:55 [facility] RED BLOOD COUNT - [facility] 4.67 3.8 - 5.2 10e6/ul 11/17/2017 11:50 [facility] RED CELL DISTRI WIDTH - [facility] 14.3 11.8 - 15.6 % 11/17/2017 11:50 [facility] WHITE BLOOD COUNT - [facility] 10.1 3.5 - 10.5 10e3/ul 11/17/2017 11:50 [facility] 11/17/2017 11:2 8 EDT 11/17/2017 11:29 EDT Narrative [facility] - 11/17/2017 12:55 EDT Does PT Have a Latex Allergy? NO us Venecia Vega MD PACKAGES & DNA PROBE ORD ERABLES Final Result [facility] documented in this encounter Visit Diagnoses Not on filedocumented in this encounter Care Teams Production Gear Cutter Relationship Specialty Start Date End Date None, Provider PCP - General 04/02/15 02/12/19 Serafin Saucedo MD [address] [place] [phone] PCP - General 02/13/19 04/25/20 documented as of this encounter
--- OUTSIDE RECORDS SUMMARY | 2024-05-25 12:49 | XMS_ITS | Encounter Summary ---
Author Organization [facility] Address [address] [place] [address] Care Team Providers Care Nurse Specialist Name Role Phone None, Provider Primary Care Provider Serafin Zapata MD Primary Care Provider [phone]- [phone] Encounter Details Date Type Department Care Team (Late st Contact Info) Description 08/24/2017 Historical Results Only [facility] Radiology Results [address] [place] [address] Serafin Saucedo MD [address] [place] [address] Social History Tobacco Use Types [...] 8:15 EDT Telemedicine [facility] Rheumatology [address] [place] [address] Venecia Vega MD [address] [facility] [address] [place] [address] documented as of this encounter Visit Diagnoses Not on filedocumented in this encounter Care Teams Nurse Specialist Relationship Specialty Start Date End Date None, Provider PCP - General 04/02/15 02/12/19 Serafin Saucedo MD [address] [place] [address] PCP - General 02/13/19 04/25/20 documented as of this encounter
--- OUTSIDE RECORDS SUMMARY | 2024-05-25 12:49 | XMS_ITS | Encounter Summary ---
Author Organization [facility] Address [address] [place] [address] Care Team Providers Care Dry Sander Name Role Phone None, Provider Primary Care Provider Serafin Zapata MD Primary Care Provider +1- [phone] Encounter Details Date Type Department Care Team (Late st Contact Info) Description 02/07/2016 Historical Results Only [facility] Radiology Results [address] [place] [address] Angela Womack PA [address] [place] [address] Social History Tobacco Use Types Packs/Day Years [...] Contact Info) Description 09/21/2024 8:15 EDT Telemedicine [facility] Rheumatology [address] [place], [place] [address] Venecia Vega MD [address] [facility] [address] [place] [address] documented as of this encounter [...] PT IS 6 MONTHS XR DONE AT [facility] ? -M25.571 ? INDICATION: RIGHT ANKLE PAIN AFTER INJURY PT IS 6 MONTHS XR ? DONE AT [facility]: -M25.571 ANKLE PAIN SP FALL 02/01/16 - [...] CC: ? Transcribed Date/Time: 02/07/2016 (1513) ? Release Engineer: ? Printed Date/Time: 12/16/2018 (0745) ? PAGE [...] Mead MD CC: Transcribed Date/Time: 02/07/2016 (1513) Release Engineer: Printed Date/Time: 12/16/2018 (7985) PAGE 1 Signed Report us Angela RENEE IMG DIAGNOSTIC IMAGING O RDERABLES Final Result documented in this encounter Visit Diagnoses Not on filedocumented in this encounter Care Teams Dry Sander Relationship Specialty Start Date End Date None, Provider PCP - General 04/02/15 02/12/19 Serafin Saucedo MD [address] [place] [phone] PCP - General 02/13/19 04/25/20 documented as of this encounter
--- OUTSIDE RECORDS SUMMARY | 2024-05-25 12:49 | XMS_ITS | Encounter Summary ---
Author Organization [facility] Address [address] [place] [address] Care Team Providers Care Computer Installer Name Role Phone None, Provider Primary Care Provider Serafin Zapata MD Primary Care Provider [phone]- [phone] Encounter Details Date Type Department Care Team (Late st Contact Info) Description 05/20/[address] [facility] - Main [place] [address] [place] [address] Naheed Jj PA-C [address] [place] [phone] Social History Tobacco Use Types Packs/Day [...] EDT Telemedicine [facility] Rheumatology [address] [place], [place] [phone] Venecia Vega MD [address] [place] [address] [place] [address] documented as of this encounter Procedures Procedure Name Priority Date/Time Associated Diagnosis Comments FLUID CULTURE - [facility] Routine 05/20/2016 16:30 EST SYNOVIAL FLUID CRYSTALS Routine 05/20/2016 16:30 EST documented in this encounter Results * FLUID CULTURE - [facility] (05/20/2016 16:30 EST) FLUID CULTURE - [facility] 05/27/2016 12:37 EST [facility] FLUID CULTURE - [facility] No growth. 05/27/2016 12:37 EST [facility] GRAM POSITIVE RODS - [facility] RARE 05/20/2016 21:28 EST [facility] WBC MANY 05/20/2016 21:28 EST [facility] 05/20/2016 16:3 0 EST 05/20/2016 17:58 EST Comment:L Narrative [facility] - 05/27/2016 12:37 EST AOT: 05/21/16 1219: SYCRY Naheed Jj PA-C HEMATOLOGY & PF4 ORDERA BLES Edited Result - Final [facility] * SYNOVIAL FLUID CRYSTALS - [facility] (05/20/2016 16:30 EST) EXTRACELLULAR - [facility] Not Present 05/21/2016 13:00 EST [facility] INTRACELLULAR - [facility] Not Present 05/21/2016 13:00 EST [facility] SYNOVIAL FLD CRYSTALS - [facility] Negative 05/21/2016 13:00 EST [facility] 05/20/2016 16:3 0 EST 05/20/2016 17:58 EST us Naheed Jj PA-C CHEMISTRY & BLOOD GAS O RDERABLES Final Result [facility] documented in this encounter Visit Diagnoses Not on filedocumented in this encounter Care Teams Computer Installer Relationship Specialty Start Date End Date None, Provider PCP - General 04/02/15 02/12/19 Serafin Saucedo MD [address] [place] [phone] PCP - General 02/13/19 04/25/20 documented as of this encounter
--- OUTSIDE RECORDS SUMMARY | 2024-05-25 12:49 | XMS_ITS | Encounter Summary ---
Author Organization [facility] Address [address] [place] [address] Care Team Providers Care Electric Switch Repairer Name Role Phone None, Provider Primary Care Provider Serafin Zapata MD Primary Care Provider [phone]- [phone] Encounter Details Date Type Department Care Team (Late st Contact Info) Description 09/21/2017 Historical Results Only [facility] - Main [place] [address] [place] [address] Venecia Vega MD [address] [place], [place] [phone] [facility] [address] [address] Social History Tobacco Use Types [...] Contact Info) Description 09/21/2024 8:15 EDT Telemedicine [facility] Rheumatology [address] [place] [phone] Venecia Vega MD [address] [place] [address] [address] documented as of this encounter Procedures Procedure Name Priority Date/Time Associated Diagnosis Comments COMPLETE BLOOD COUNT WITH DIFFERENTIAL (AUTO) Routine 09/21/2017 7:00 EDT COMPREHENSIVE METABOLIC PANEL (CMP) Routine 09/21/2017 7:00 EDT documented in this encounter Results * (ABNORMAL) COMPREHENSIVE METABOLIC PANEL (CMP) (09/21/2017 7:00 EDT) Albumin % 4.0 3.4 - 4.9 g/dL 09/21/2017 7:34 [facility] Comment: Slight Hemolysis, Interpret results with caution. Verified Hemolysis Visually ALKALINE PHOSPHATASE - [facility] 64 38 - 126 U/L 09/21/2017 7:34 [facility] Comment: Slight Hemolysis, Interpret results with caution. Verified Hemolysis Visually BILIRUBIN TOTAL 0.5 0.2 - 1.3 mg/dL 09/21/2017 7:33 [facility] BUN - [facility] 7(L) 10 - 26 mg/dL 09/21/2017 7:34 [facility] Comment: Slight Hemolysis, Interpret results with caution. Verified Hemolysis Visually CALCIUM - [facility] 9.4 8.5 - 10.5 mg/dL 09/21/2017 7:33 [facility] Chloride 105 96 - 110 mmol/L 09/21/2017 7:33 [facility] CO2 Total 25 22 - 32 mEq/L 09/21/2017 7:33 [facility] CREATININE 0.73 0.52 - 1.04 mg/dL 09/21/2017 7:33 [facility] eGFR >60 09/21/2017 7:33 [facility] Comment: Chronic renal impairment is defined as GFR <60 Multiply result by 1.210 for patients. eGFR calculated using the IDMS-traceable MDRD Study Equation. ??(effective 05/07/2014) Anion Gap 11 0 - 18 09/21/2017 7:33 [facility] GLUCOSE - [facility] 122(H) 70 - 100 mg/dL 09/21/2017 7:33 [facility] Potassium 3.6 3.5 - 5.0 mEq/L 09/21/2017 7:34 [facility] Comment: Slight Hemolysis, Interpret results with caution. Verified Hemolysis Visually Sodium 141 136 - 145 mEq/L 09/21/2017 7:33 EDT [facility] TOTAL PROTEIN - [facility] 7.6 6.2 - 8.2 gm/dL 09/21/2017 7:33 EDT [facility] SGOT/AST - [facility] 67(H) 14 - 36 U/L 09/21/2017 7:34 EDT [facility] Comment: Slight Hemolysis, Interpret results with caution. Verified Hemolysis Visually SGPT/ALT - [facility] 109(H) 9 - 52 U/L 8 7:34 EDT [facility] Comment: Slight Hemolysis, Interpret results with caution. Verified Hemolysis Visually 09/21/2017 7:00 EDT 09/21/2017 7:08 EDT Narrative [facility] - 09/21/2017 7:34 EDT Does PT Have a Latex Allergy? NO us Venecia Vega MD CHEMISTRY & BLOOD GAS OR DERABLES Final Result [facility] * (ABNORMAL) COMPLETE BLOOD COUNT WITH DIFFERENTIAL (AUTO) (09/21/2017 7:00 EDT) ABSOLUTE NEUTROPHIL COUN - [facility] 2.63 1.7 - 7.0 10e3/ul 09/21/2017 7:26 EDT [facility] BASO # - [facility] 0.03 0.0 - 0.3 10e3/uL 09/21/2017 [facility] % [facility] 0 0 - 2 % 09/21/2017 [facility] EOS # - [facility] 0.25 0.05 - 0.5 10e3/uL 09/21/2017 7[facility]26 [facility] EOS % - [facility] 4 0 - 5 % 09/21/2017 7:26 EDT [facility] GRAN % - [facility] 39(L) 40 - 80 % 09/21/2017 7[facility]26 [facility] HEMATOCRIT - [facility] 43.3 34.0 - 47.0 % 09/21/2017 7:26 [facility] HEMOGLOBIN - [facility] 14.6 11.2 - 15.7 g/dl 09/21/2017 7:26 [facility] IG# - [facility] 0.01 0 - 0.07 10e3/uL 09/21/2017 7:26 [facility] IG% - [facility] 0.1 0 - 0.9 % 09/21/2017 7:26 [facility] LYMPH # - [facility] 3.24(H) 0.9 - 2.9 10e3/uL 09/21/2017 7:26 [facility] LYMPH% - [facility] 47(H) 20 - 40 % 09/21/2017 7:26 [facility] MEAN CORPUSCULAR HGB - [facility] 29.3 26 - 34 pg 09/21/2017 7:26 [facility] MEAN CORPUSCULAR HGB CONC - [facility] 33.7 31 - 36 g/dL 09/21/2017 7:26 [facility] MEAN CELL VOLUME - [facility] 86.9 77 - 100 fl 09/21/2017 7:26 [facility] MONO # - [facility] 0.67 0.3 - 0.9 10e3/uL 09/21/2017 7:26 [facility] MONO% - [facility] 10 0 - 12 % 09/21/2017 7:26 [facility] PLATELET COUNT 398 150 - 400 10e3/ul 09/21/2017 7:26 [facility] RED BLOOD COUNT - [facility] 4.98 3.8 - 5.2 10e6/ul 09/21/2017 7:26 [facility] RED CELL DISTRI WIDTH - [facility] 13.9 11.8 - 15.6 % 09/21/2017 7:26 [facility] WHITE BLOOD COUNT - [facility] 6.8 3.5 - 10.5 10e3/ul 09/21/2017 7:26 [facility] 09/21/2017 7:00 EDT 09/21/2017 7:08 EDT Narrative [facility] - 09/21/2017 7:26 EDT Does PT Have a Latex Allergy? NO us Venecia Vega MD HEMATOLOGY & PF4 ORDERAB LES Final Result [facility] documented in this encounter Visit Diagnoses Not on filedocumented in this encounter Care Teams Electric Switch Repairer Relationship Specialty Start Date End Date None, Provider PCP - General 04/02/15 02/12/19 Serafin Saucedo MD [address] [place] [phone] PCP - General 02/13/19 04/25/20 documented as of this encounter
--- OUTSIDE RECORDS SUMMARY | 2024-05-25 12:50 | XMS_ITS | Encounter Summary ---
Author Organization [facility] Address [address] [place] [address] Care Team Providers Care Global Compensation Analyst Name Role Phone Unknown, Provider Primary Care Provider Unava ilable None, Provider Primary Care Provider Serafin Zapata MD Primary Care Provider [phone]- [phone] Encounter Details Date Type Department Care Team (Late st Contact Info) Description 09/22/2012 Historical Results Only [facility] Lab - Main [place] [address] [place], [place] [address] Andi Lewis MD Social History Tobacco Use [...] Telemedicine [facility] Rheumatology [address] [place] [address] Venecia Vega MD [address] [place] [address] [address] [place] [address] documented as of this encounter Procedures Procedure Name Priority Date/Time Associated Diagnosis Comments SURGICAL PATHOLOGY Routine 09/22/2012 documented in this encounter Results * SURGICAL PATHOLOGY (09/22/2012) 09/22/2012 09/22/2012 15: 49 EDT Narrative [facility] - 09/26/2012 10:38 EDT ----- ------- Name: DEVIKA VICENTE ?: [birth year] ?Age/Sex: 34/F ?Unit#: [id number] ? Loc: AGO ? Status: REG POV ?? Reg Date: 09/22/12 ? Pt.Phone Number: ? ----- ------- Specimen: [id number] ? STATUS: SOUT ?Spec Date:09/22/12 ? Physician Copies: ?Andi Lewis MD ? Tissues: A ?? Urinary Tract (KIDNEY STONE) ? Serafin Saucedo MD CPT: 11041 ?? Units: ??1 ?FINAL DIAGNOSIS ? Gross [...] confirmed the above diagnosis. Test Performed by [facility], [address] [place] [address] Freight Receiver: Rhona Brown MD PHD ----- ------- us Andi Lewis MD PATHOLOGY ORDERABLES Final Resu lt [facility] documented in this encounter Visit Diagnoses Not on filedocumented in this encounter Care Teams Global Compensation Analyst Relationship Specialty Start Date End Date Unknown, Provider, PCP - General 07/31/13 04/01/15 None, Provider PCP - General 04/02/15 02/12/19 Serafin Saucedo MD [address] [place] [phone] PCP - General 02/13/19 04/25/20 documented as of this encounter
--- OUTSIDE RECORDS SUMMARY | 2024-05-25 12:50 | XMS_ITS | Encounter Summary ---
Author Organization [facility] Address [address] [place] [address] Care Team Providers Care Manager Business Name Role Phone Unknown, Provider Primary Care Provider Unava ilable None, Provider Primary Care Provider Serafin Zapata MD Primary Care Provider [phone]- [phone] Encounter Details Date Type Department Care Team (Late st Contact Info) Description 12/22/2010 Historical Results Only [facility] - Main [place] [address] [place], [place] [id number] Andi Lewis MD Social History Tobacco Use [...] [facility] Rhe[facility] [address] [place] [address] Venecia Vega MD [address] [place] [address] [address] [place] [address] documented as of this encounter Procedures Procedure Name Priority Date/Time Associated Diagnosis Comments PAP TEST Routine 12/22/2010 15:49 EDT documented in this encounter Results * PAP TEST (12/22/2010 15:49 EDT) 12/22/2010 15:4 9 EDT 12/22/2010 17:28 EDT Narrative [facility] - 12/25/2010 11:51 EDT ----- ------- Name: DEVIKA VICENTE ?: 81 ?Age/Sex: 34/F ?Unit#: [id number] ? Loc: AGO ? Status: REG POV ?? Reg Date: 12/22/10 ? Pt.Phone Number: ? ----- ------- Specimen: [id number] ?STATUS: SOUT ?Spec Date:12/22/10 ? Physician Copies: ?Andi Lewis MD ? Tissues: ? Cervical/Endo Pap ?Serafin Saucedo MD CPT: 12134 ?? Units: ??1 ----- ------- ? CYTOLOGY [...] diagnosis. Test Performed by [facility], [address] [place] [address] Gill Tender: Rhona Brown MD PHD ----- ------- us Andi Lewis MD PATHOLOGY ORDERABLES Final Resu lt [facility] documented in this encounter Visit Diagnoses Not on filedocumented in this encounter Care Teams Manager Business Relationship Specialty Start Date End Date Unknown, Provider, PCP - General 07/31/13 04/01/15 None, Provider PCP - General 04/02/15 02/12/19 Serafin Saucedo MD [address] [place] [phone] PCP - General 02/13/19 04/25/20 documented as of this encounter
--- OUTSIDE RECORDS SUMMARY | 2024-05-25 12:50 | XMS_ITS | Encounter Summary ---
Author Organization [facility] Address [address] [place] [address] Care Team Providers Care Assistant Manager Of Operations Name Role Phone Unknown, Provider Primary Care Provider Unava ilable None, Provider Primary Care Provider Serafin Zapata MD Primary Care Provider [phone] Encounter Details Date Type Department Care Team (Late st Contact Info) Description 06/01/2014 Historical Results Only [facility] Radiology Results [address] [place], [place] [phone] Lawanda Worthington NP [address] [facility] [address] [place] [address] Social History Tobacco Use Types [...] Telemedicine [facility] Rheumatology [address] [place] [address] Venecia Vega MD [address] [facility] [address] [place] [address] documented as of this encounter Procedures Procedure Name Priority Date/Time Associated Diagnosis Comments US PELVIS TRANSVAGINAL COMPLETE 06/01/2014 9:53 EST documented in this encounter Results * US PELVIS TRANSVAGINAL (06/01/2014 9:53 EST) Anatomical Region Laterality Modality Pelvis Other 06/01/2014 9:53 EST Narrative 06/01/2014 9:57 EST ? EXAM: ULTRASOUND/TRANSVAGINAL - CLINICAL OFFICE TECHNICIAN ? EX. D/ (0939) ? CLINICAL INFORMATION: [...] CC: ? Transcribed Date/Time: 06/01/2014 (0957) ? Industrial Maintenance Manager: ? Printed Date/Time: 12/05/2018 (4521) ? PAGE 1 ? Signed Report ? Procedure Note Bong Mead MD - 05/09/2019 EXAM: ULTRASOUND/TRANSVAGINAL - CLINICAL OFFICE TECHNICIAN EX. D/ (0939) CLINICAL INFORMATION: 625.9 PELVIC [...] Mead MD CC: Transcribed Date/Time: 06/01/2014 (0957) Industrial Maintenance Manager: Printed Date/Time: 12/05/2018 (5968) PAGE 1 Signed Report us Lawanda Worthington FOOT GATHERER IMG US OB ORDERABLES Final Re sult documented in this encounter Visit Diagnoses Not on filedocumented in this encounter Care Teams Assistant Manager Of Operations Relationship Specialty Start Date End Date Unknown, Provider, PCP - General 07/31/13 04/01/15 None, Provider PCP - General 04/02/15 02/12/19 Serafin Saucedo MD [address] [place] [phone] PCP - General 02/13/19 04/25/20 documented as of this encounter
--- OUTSIDE RECORDS SUMMARY | 2024-05-25 12:50 | XMS_ITS | Encounter Summary ---
Author Organization [facility] Address [address] [place] [address] Care Team Providers Care Field Cane Scaler Name Role Phone Unavailable Primary Care Provider Unavailabl e Encounter Details Date Type Department Care Team (Latest Contact Info) Description 07/21/2013 16:33 EST - 07/21/2013 23:59 EST Hospital Encounter [facility] [address] [place] [address] Unknown, Provider, Discharge Disposition: Home or Self [...] Code Departure Means Destination Home or Self Correction documented in this encounter Plan of Treatment Upcoming Encounters Date Type Department Care Team (Late st Contact Info) Description 09/21/2024 8:15 EDT Telemedicine [facility] Rheumatology [address] [place] [address] Venecia Vega MD 130 [facility] [address] [place] [address] documented as of this encounter Visit Diagnoses Not on filedocumented in this encounter
--- OUTSIDE RECORDS SUMMARY | 2024-05-25 12:50 | XMS_ITS | Encounter Summary ---
Author Organization [facility] Address [address] [place] [address] Care Team Providers Care Rotary Saw Operator Name Role Phone Unknown, Provider Primary Care Provider Unava ilable None, Provider Primary Care Provider Serafin Zapata MD Primary Care Provider [phone] Encounter Details Date Type Department Care Team (Late st Contact Info) Description 12/01/2011 Historical Results Only [facility] - [place] [address] [place] [address] Andi Lewis MD Social History Tobacco Use [...] Info) Description 09/21/2024 8:15 EDT Telemedicine [facility] Rheumatology [address] [place] [address] Venecia Vega MD [address] [place] [address] [address] [place] [address] documented as of this encounter Procedures Procedure Name Priority Date/Time Associated Diagnosis Comments PAP TEST Routine 12/01/2011 documented in this encounter Results * PAP TEST (12/01/2011) 12/01/2011 12/01/2011 20: 50 EDT Narrative [facility] - 12/03/2011 11:44 EDT ----- ------- Name: DEVIKA VICENTE ?: [birth year] ?Age/Sex: 34/F ?Unit#: [id number] ? Loc: AGO ? Status: REG POV ?? Reg Date: 12/01/11 ? Pt.Phone Number: ? ----- ------- Specimen: [id number] ?STATUS: SOUT ?Spec Date:12/01/11 ? Physician Copies: ?Andi Lewis MD ? Tissues: ? Cervical/Endo Pap ?Serafin Saucedo MD CPT: 10152 ?? Units: ??1 ----- ------- ? CYTOLOGY [...] diagnosis. Test Performed by [facility], [address] [place] [address] Lathe Operator: Rhona Brown MD PHD ----- ------- us Andi Lewis MD PATHOLOGY ORDERABLES Final Resu lt [facility] documented in this encounter Visit Diagnoses Not on filedocumented in this encounter Care Teams Rotary Saw Operator Relationship Specialty Start Date End Date Unknown, Provider, PCP - General 07/31/13 04/01/15 None, Provider PCP - General 04/02/15 02/12/19 Serafin Saucedo MD [address] [place] [phone] PCP - General 02/13/19 04/25/20 documented as of this encounter
--- OUTSIDE RECORDS SUMMARY | 2024-05-25 12:50 | XMS_ITS | Encounter Summary ---
Author Organization [facility] Address [address] [place] [address] Care Team Providers Care Playground Supervisor Name Role Phone Unknown, Provider Primary Care Provider Unava ilable None, Provider Primary Care Provider Serafin Zapata MD Primary Care Provider [phone] Encounter Details Date Type Department Care Team (Late st Contact Info) Description 03/08/2015 Historical Results Only [facility] Radiology Results [address] [place] [address] Serafin Saucedo MD [address] [place] [phone] Social History Tobacco Use Types Packs/Day [...] [facility] Rheumatology [address] [place] [address] Venecia Vega MD 130 [facility] [address] [place] [address] documented as of this encounter Procedures Procedure Name Priority Date/Time Associated Diagnosis Comments US PELVIS TRANSVAGINAL COMPLETE 03/08/2015 15:10 EDT documented in this encounter Results * US PELVIS TRANSVAGINAL (03/08/2015 15:10 EDT) Anatomical Region Laterality Modality Pelvis Other 03/08/2015 15:1 0 EDT Narrative 03/08/2015 15:21 EDT ? EXAM: ULTRASOUND/TRANSVAGINAL - UNIVERSAL BANKER W/ DO EX. D/ (1502) ? CLINICAL INFORMATION: ? PROGRESSIVE ABD DISTENTION, TENDER LOWER ABDOMEN ? TRANSVAGINAL - UNIVERSAL BANKER W/ DOPPLER ??03/05/2015 1:39 PM ? Clinical [...] of the pelvis are suggested for confirmation. ORDERING MACHINE OPERATOR ? referral is advised. ? 2. Intact Doppler flow to both ovaries. ? Case was reviewed with Dr. Saucedo by Dr. Singh at the time of ? interpretation. ? REPORT SIGNED IN OTHER VENDOR SYSTEM 03/08/2015 ?Reported By: Bahman Singh MD ? CC: ? Transcribed Date/Time: 03/08/2015 (1521) ? Rubber Goods Tester Water: ? Printed Date/Time: 12/13/2018 (0844) ? PAGE 1 ? Signed Report ? Procedure Note Bahman Singh MD - 05/09/2019 EXAM: ULTRASOUND/TRANSVAGINAL - UNIVERSAL BANKER W/ DO EX. D/ (1502) CLINICAL INFORMATION: PROGRESSIVE ABD DISTENTION, TENDER LOWER ABDOMEN TRANSVAGINAL - UNIVERSAL BANKER W/ DOPPLER 03/05/2015 1:39 PM Clinical History/Comments: [...] of the pelvis are suggested for confirmation. ORDERING MACHINE OPERATOR referral is advised. 2. Intact Doppler flow to both ovaries. Case was reviewed with Dr. Saucedo by Dr. Singh at the time of interpretation. REPORT SIGNED IN OTHER VENDOR SYSTEM 03/08/2015 Reported By: Bahman Singh MD CC: Transcribed Date/Time: 03/08/2015 (1521) Rubber Goods Tester Water: SCKatherine Printed Date/Time: 12/13/2018 (3869) PAGE 1 Signed Report Serafin Saucedo MD [facility] OB ORDERABLES Final Result documented in this encounter Visit Diagnoses Not on filedocumented in this encounter Care Teams Playground Supervisor Relationship Specialty Start Date End Date Unknown, Provider, PCP - General 07/31/13 04/01/15 None, Provider PCP - General 04/02/15 02/12/19 Serafin Saucedo MD [address] [place] [phone] PCP - General 02/13/19 04/25/20 documented as of this encounter
--- OUTSIDE RECORDS SUMMARY | 2024-05-25 12:50 | XMS_ITS ---
Author Organization Unknown Address [address] [place] [place] [phone] Phone Care Team Providers Care Repair Supervisor Name Role Phone FADI Alonzo MD Attending Nash CASE Primary Unavailable Social History Type Status Start Date End Date Code Code Syst em Smoking History Never smoker (Never Smoked) 304283935 SNOMED CT Sex Female Medications Medication Start Date End Date Route Frequency Dose Code Code System Medication Instructions Home Meds Cefpodoxime Proxetil 200MG Oral Tablet 03/08/2022 05/14/2022 ORAL TWICE A DAY 1 TABLET 881904 RxNorm TAKE 1 TABLET ORAL TWICE A DAY Pyridium 100MG Oral Tablet 03/08/2022 05/14/2022 ORAL THREE TIMES A DAY 1 TABLET 5511826 RxNorm TAKE 1 TABLET ORAL THREE TIMES A DAY Zofran 4MG Oral Tablet 09/03/2022 05/23/2023 ORAL EVERY 6 HOURS 1 TABLET 087710 RxNorm TAKE 1 TABLET ORAL EVERY 6 HOURS FOR Nausea Zithromax 250MG Oral Tablet 07/04/2023 Unknown ORAL DAILY 1 TABLET 871898 RxNorm TAKE 1 TABLET ORAL DAILY Assessment [...] Status Code Code System TMJ DISORDER active 49823308 SNOMED- CT GERD 03/08/2022 resolved 554495238 SNOMED-CT ARTHRITIS 03/08/2022 resolved 0511633 SNOMED-CT ANEMIA 03/08/2022 resolved 416724964 SNOMED-CT DILATATION AND CURETTAGE PLANNED 03/08/2022 resolved 936025475 SNOMED-CT Allergies and Adverse Reactions Allergy Substance Reaction Severity Start Date Concern Status Co de Code System No Known Allergies Active 568098397 SNO MED-CT Plan of Treatment MRI UPPER [...]
--- OUTSIDE RECORDS SUMMARY | 2024-05-25 12:50 | XMS_ITS ---
Author Organization [facility] Address [address] [place] [address] Care Team Providers Care Special Forces Senior Sergeant Name Role Phone Corine Coulter Primary Care Provider [phone] Rheumatology Status:Enrolled (Active) Start date:06/24/2021 Enrollment date:06/24/2021 Current support & services provided:Clinical Management, Refill Management Linked medications:adalimumab (Active) Linked problems:Ankylosing spondylitis of multiple sites in spine ([facility]) (Primary, Active), Seronegative spondylitis ([facility]) (Active), Spondyloarthropathy (Active) Case Team Name Relationship Phone [facility] (Responsible Staff) Continued Care and Services Coordination
--- OUTSIDE RECORDS SUMMARY | 2024-05-25 12:50 | XMS_ITS | Encounter Summary ---
Author Organization [facility] Address [address] [place] [address] Care Team Providers Care Marine Engine Driver Name Role Phone Unknown, Provider Primary Care Provider Unava ilable None, Provider Primary Care Provider Serafin Zapata MD Primary Care Provider [phone] Encounter Details Date Type Department Care Team (Late st Contact Info) Description 03/10/2015 Historical Results Only [facility] Radiology Results [address] [place], [place] [phone] Víctor Edmonds MD [address] [place] [address] Social History Tobacco Use Types [...] EDT Telemedicine [facility] Rheumatology [address] [place] [address] Venecia Vega MD 130 [facility] [address] [place] [address] documented as of this [...] CC: ? Transcribed Date/Time: 03/10/2015 (1119) ? Body Shop Mechanic: ? Printed Date/Time: 12/13/2018 (0844) ? PAGE [...] Gerardo MD CC: Transcribed Date/Time: 03/10/2015 (1119) Body Shop Mechanic: Printed Date/Time: 12/13/2018 (0872) PAGE 2 Signed Report us Víctor Edmonds MD IMG CT ORDERABLES Final Resul t documented in this encounter Visit Diagnoses Not on filedocumented in this encounter Care Teams Marine Engine Driver Relationship Specialty Start Date End Date Unknown, Provider, PCP - General 07/31/13 04/01/15 None, Provider PCP - General 04/02/15 02/12/19 Serafin Saucedo MD [address] [place] [phone] PCP - General 02/13/19 04/25/20 documented as of this encounter
--- OUTSIDE RECORDS SUMMARY | 2024-05-25 12:50 | XMS_ITS | Encounter Summary ---
Author Organization [facility] Address [address] [place] [address] Care Team Providers Care Interior Design Professional Name Role Phone Unavailable Primary Care Provider Unavailabl e Encounter Details Date Type Department Care Team (Late st Contact Info) Description 03/23/2006 Before PRISM Converted Visit (Maple) [facility] - Maple conversion [address] [place] [address] Ana Rai MD [address] [facility], [address] [place] [phone] Social History Tobacco Use Types Packs/Day Years [...] CONSULTATION March 23, 2006 Amador Heart MD [address] [place] [address], [address] [place] [address] Dear Amador: Thank you for having Ms. [...] Rai MD 04/16/2006 08:05 Maribell Cox MD Aan Rai MD - Ana Rai MD P - lw Job ID: [id number] Document ID: [id number] cc: Amador Heart MD documented in this encounter Plan of Treatment Upcoming Encounters Date Type Department Care Team (Late st Contact Info) Description 09/21/2024 8:[address] [facility] Rheumatology [address] [place] [address] Venecia Vega MD [address] [place] [address] [address] [place] [phone] documented as of this encounter Visit Diagnoses Not on filedocumented in this encounter
--- OUTSIDE RECORDS SUMMARY | 2024-05-25 12:50 | XMS_ITS | Encounter Summary ---
Author Organization [facility] Address [address] [place] [address] Care Team Providers Care Application Packaging Consultant Name Role Phone Unavailable Primary Care Provider Unavailabl e Encounter Details Date Type Department Care Team (Late st Contact Info) Description 11/30/2003 Results Only [facility] - Maple conversion [address] [place] [address] Stephanie Monique, [address] [place] [address] Social History Tobacco Use Types [...] Description 09/21/2024 8:[address] [facility] Rheumatology [address] [place], [place] [address] Venecia Vega MD [address] [facility] [address] [place] [address] documented as of this encounter [...] ? DEVIKA SHABAZZ ? Accession #: ? [id number] : ? 1985 (Age: 18) ??F ?Collect Date: ? 11/30/2003 Location: ? [facility] ? Receive Date: ? 12/05/2003 Provider: ?STEPHANIE MONIQUE DONOR RELATIONS MANAGER Copy to: ? Specimen/Source: ?ThinPrep Pap [...] End of Report ELIZABETH RUSSELL 11/30/2003 12/05/2003 us Stephanie Monique DONOR RELATIONS MANAGER PATHOLOGY ORDERABLES Final R esult ELIZABETH RUSSELL [address] [place] [address] documented in this encounter Visit Diagnoses Not on filedocumented in this encounter
--- OUTSIDE RECORDS SUMMARY | 2024-05-25 12:50 | XMS_ITS | Encounter Summary ---
Author Organization [facility] Address [address] [place] [address] Care Team Providers Care Security Developer Name Role Phone Unknown, Provider Primary Care Provider Unava ilable None, Provider Primary Care Provider Serafin Zapata MD Primary Care Provider [phone] Encounter Details Date Type Department Care Team (Late st Contact Info) Description 09/05/2009 Historical Results Only [facility] - Main [place] [address] [place] [address] Andi Lewis MD Social History Tobacco Use [...] EDT Telemedicine [facility] Rheumatology [address] [place] [address] Venecia Vega MD [address] [place] [address] [address] [place] [address] documented as of this encounter Procedures Procedure Name Priority Date/Time Associated Diagnosis Comments PAP TEST Routine 09/05/2009 documented in this encounter Results * PAP TEST (09/05/2009) 09/05/2009 09/09/2009 11: 52 EST Narrative [facility] - 09/11/2009 11:48 EST ----- ------- Name: DEVIKA SHABAZZ ? : [birth year] ?Age/Sex: 34/F ?Unit#: [id number] ? Loc: AGO ? Status: REG POV ?? Reg Date: 09/05/09 ? Pt.Phone Number: ? ----- ------- Specimen: [id number] ?STATUS: SOUT ?Spec Date:09/05/09 ? Physician Copies: ?Andi Lewis MD ? Tissues: ? Cervical/Endo Pap ?Serafin Saucedo MD CPT: 35207 ?? Units: ??1 ----- ------- ? CYTOLOGY [...] diagnosis. Test Performed by [facility], [address] [place] [address] Optical Instrument Repairer: Rhona Brown MD PHD ----- ------- us Andi Lewis MD PATHOLOGY ORDERABLES Final Resu lt [facility] documented in this encounter Visit Diagnoses Not on filedocumented in this encounter Care Teams Security Developer Relationship Specialty Start Date End Date Unknown, Provider, PCP - General 07/31/13 04/01/15 None, Provider PCP - General 04/02/15 02/12/19 Serafin Saucedo MD [address] [place] [phone] PCP - General 02/13/19 04/25/20 documented as of this encounter
--- OUTSIDE RECORDS SUMMARY | 2024-05-25 12:50 | XMS_ITS ---
Author Organization Unknown Address [address] [place] [phone] Phone Care Team Providers Care Assistant Paralegal Name Role Phone FADI Alonzo MD Attending Nash CASE Primary Unavailable Social History Type Status Start Date End Date Code Code Syst em Smoking History Never smoker (Never Smoked) [id number] SNOMED CT Sex Female Medications Medication Start Date End Date Route Frequency Dose Code Code System Medication Instructions Home Meds Cefpodoxime Proxetil 200MG Oral Tablet 03/08/2022 05/14/2022 ORAL TWICE A DAY 1 TABLET 129506 RxNorm TAKE 1 TABLET ORAL TWICE A DAY Pyridium 100MG Oral Tablet 03/08/2022 05/14/2022 ORAL THREE TIMES A DAY 1 TABLET 5214021 RxNorm TAKE 1 TABLET ORAL THREE TIMES A DAY Zofran 4MG Oral Tablet 09/03/2022 05/23/2023 ORAL EVERY 6 HOURS 1 TABLET 155801 RxNorm TAKE 1 TABLET ORAL EVERY 6 HOURS FOR Nausea Zithromax 250MG Oral Tablet 07/04/2023 Unknown ORAL DAILY 1 TABLET 404675 RxNorm TAKE 1 TABLET ORAL DAILY Assessment [...] Status Code Code System TMJ DISORDER active 74412406 SNOMED- CT GERD 03/08/2022 resolved 212057358 SNOMED-CT ARTHRITIS 03/08/2022 resolved 3225212 SNOMED-CT ANEMIA 03/08/2022 resolved 952531081 SNOMED-CT DILATATION AND CURETTAGE PLANNED 03/08/2022 resolved 951128971 SNOMED-CT Allergies and Adverse Reactions Allergy Substance Reaction Severity Start Date Concern Status Co de Code System No Known Allergies Active 836935071 SNO MED-CT Plan of Treatment MRI UPPER [...]
--- OUTSIDE RECORDS SUMMARY | 2024-05-25 12:50 | XMS_ITS | Encounter Summary ---
Author Organization [facility] Address [address] [place] [address] Care Team Providers Care Stucco Laborer Name Role Phone Unknown, Provider Primary Care Provider Unava ilrobe None, Provider Primary Care Provider Serafin Zapata MD Primary Care Provider Phoebe Iyer Primary Care Provider [phone] Rebeca Miller APRN Primary Care Provider [phone] Corine Coulter Primary Care Provider [phone] Encounter Details Date Type Department Care Team (Late st Contact Info) Description 03/23/2006 Before PRISM Converted Visit (Maple) [facility] - Maple conversion [address] [place] [address] Amador Heart MD [address] [place] [address] [address] [place] [address] Social History Tobacco Use Types [...] Info) Description 09/21/2024 8:15 EDT Telemedicine [facility] [place] [address] [place] [address] Venecia Vega MD 130 [facility] [address] [place] [phone] documented as of this encounter Procedures Procedure Name Priority Date/Time Associated Diagnosis Comments [facility] ECHOCARDIOGRAM 03/23/2006 16:06 EDT documented in this encounter Results * [facility] ECHOCARDIOGRAM (03/23/2006 16:06 EDT) Anatomical Region Laterality Modality Other 03/23/2006 16:0 6 EDT Narrative 01/12/2009 1:46 EDT ECHO/ABNORMAL OUTSIDE U/S FINDING, Dr. Mancilla to do Please see separate Echocardiography report. Procedure Note Ana Rai MD - 01/12/2009 ECHO/ABNORMAL OUTSIDE U/S FINDING, Dr. Mancilla to do Please see separate Echocardiography report. Amador Heart MD [facility] ORDERABLES Final Resu lt documented in this encounter Visit Diagnoses Not on filedocumented in this encounter Care Teams Stucco Laborer Relationship Specialty Start Date End Date Unknown, Provider, PCP - General 07/31/13 04/01/15 None, Provider PCP - General 04/02/15 02/12/19 Serafin Saucedo MD [address] [place] [phone] PCP - General 02/13/19 04/25/20 Phoebe Iyer FNP [address] [place] [phone] PCP - General 07/09/20 11/20/21 Rebeca Miller [place] [phone] PCP - General Family Medicine - Primary Care 11/21/21 03/07/24 Corine Coulter [address] [phone] PCP - General Family Medicine - Primary Care 03/08/24 documented as of this encounter
--- OUTSIDE RECORDS SUMMARY | 2024-05-25 12:50 | XMS_ITS | Encounter Summary ---
Author Organization [facility] Address [address] [place] [address] Care Team Providers Care Electro Optics Engineer Name Role Phone Unknown, Provider Primary Care Provider Unava ilable None, Provider Primary Care Provider Serafin Zapata MD Primary Care Provider [phone] Encounter Details Date Type Department Care Team (Late st Contact Info) Description 06/17/2014 Historical Results Only [facility] Radiology Results [address] [place], [place] [phone] Singh Gilbert, DO [address] [facility] [address] [place] [address] Social History Tobacco Use Types [...] [facility] Rhe[facility] [address] [place] [address] Venecia Vega MD 130 [facility] [address] [place] [address] documented as of this encounter [...] COMPRESSION FX OF L2 ? Patient Name: Arabella Medina ? Date of : 1985 ? Exam: [...] CC: ? Transcribed Date/Time: 06/17/2014 (1209) ? Career Guidance Counselor: NELSON ? Printed Date/Time: 12/05/2018 (1029) ? [...] By: Willie Maza CC: Transcribed Date/Time: 06/17/2014 (1209) Career Guidance Counselor: NELSON Printed Date/Time: 12/05/2018 (8967) PAGE 1 Signed Report Singh Gilbert DO IMG DIAGNOSTIC IMAGING ORD ERABLES Final Result documented in this encounter Visit Diagnoses Not on filedocumented in this encounter Care Teams Electro Optics Engineer Relationship Specialty Start Date End Date Unknown, Provider, PCP - General 07/31/13 04/01/15 None, Provider PCP - General 04/02/15 02/12/19 Serafin Saucedo MD [address] [place] [phone] PCP - General 02/13/19 04/25/20 documented as of this encounter
--- OUTSIDE RECORDS SUMMARY | 2024-05-25 12:50 | XMS_ITS | Encounter Summary ---
Author Organization [facility] Address [address] [place] [address] Care Team Providers Care Talend Etl Developer Name Role Phone Unknown, Provider Primary Care Provider Unava ilable Encounter Details Date Type Department Care Team (Latest Contact Info) Description 03/14/2014 14:43 EDT - 03/14/2014 23:59 EDT Hospital Encounter [address] [address] Unknown, ProviderMD Discharge Disposition: Home or Self [...] Contact Info) Description 09/21/2024 8:15 EDT Telemedicine [facility] Rheumatology [address] [place] [address] Venecia Vega MD 130 [facility] [address] [place] [phone] documented as of this encounter Visit Diagnoses Not on filedocumented in this encounter Care Teams Talend Etl Developer Relationship Specialty Start Date End Date Unknown, ProviderMD PCP - General 07/31/13 04/01/15 documented as of this encounter
--- OUTSIDE RECORDS SUMMARY | 2024-05-25 12:50 | XMS_ITS | Encounter Summary ---
Author Organization [facility] Address [address] [place] [address] Care Team Providers Care Operations Logistics Analyst Name Role Phone Unknown, Provider MD Primary Care Provider Unava ilable Encounter Details Date Type Department Care Team (Latest Contact Info) Description 03/08/2015 15:55 EDT - 03/08/2015 23:59 EDT Hospital Encounter [address] [address] Unknown, Provider, Discharge Disposition: Home or Self [...] Telemedicine [facility] Rheumatology [address] [place], [place] [address] Venecia Vega MD [address] [place] [address] [address] [place] [phone] documented as of this encounter Visit Diagnoses Not on filedocumented in this encounter Care Teams Operations Logistics Analyst Relationship Specialty Start Date End Date Unknown, Provider, PCP - General 07/31/13 04/01/15 documented as of this encounter
--- OUTSIDE RECORDS SUMMARY | 2024-05-25 12:50 | XMS_ITS | Encounter Summary ---
Author Organization [facility] Address [address] [place] [address] Care Team Providers Care Launch Leader Name Role Phone None, Provider Primary Care Provider Serafin Zapata MD Primary Care Provider [phone] Encounter Details Date Type Department Care Team (Late st Contact Info) Description 04/04/2015 Historical Results Only [facility] Radiology Results [address] [place] [address] Vivi Garcias MD [address] [facility] [address] [place] [address] Social History Tobacco Use Types [...] Description 09/21/2024 8:15 EDT Telemedicine [facility] Rheumatology [address] [place] [address] Venecia Vega MD [address] [facility] [address] [place] [address] documented as of this encounter [...] FOOT PAIN. AP/OBL ONLY. XRAYS DONE AT [facility] ? Indication: Lateral ankle and foot pain [...] CC: ? Transcribed Date/Time: 04/04/2015 (1144) ? Dock Associate: ? Printed Date/Time: 12/13/2018 (0844) ? PAGE 1 ? Signed Report ? Procedure Note Bong Mead MD - 05/09/2019 EXAM: RADIOLOGY/FOOT-LEFT-2 VIEW EX. D/ (1009) CLINICAL INFORMATION: LEFT FOOT PAIN. AP/OBL ONLY. XRAYS DONE AT [facility] Indication: Lateral ankle and foot pain after acute inversioninjury. Technique: 2 view imaging of the left foot. Comparison: None. Findings: No acute fracture is seen. The left foot is wellaligned. The joint spaces are preserved. Impression: 1.No acute osseous injury detected. REPORT SIGNED IN OTHER VENDOR SYSTEM 04/04/2015 Reported By: Bong Mead MD CC: Transcribed Date/Time: 04/04/2015 (1144) Dock Associate: Printed Date/Time: 12/13/2018 (8472) PAGE 1 Signed Report us Vivi Garcias MD IMG DIAGNOSTIC IMAGING ORDERABLES Final Result * XR ANKLE LEFT 2 VIEWS (04/04/2015 11:39 EDT) Anatomical Region Laterality Modality Lower Extremities, Ankle Left Other 04/04/2015 11:3 9 EDT Narrative 04/04/2015 11:43 EDT ? EXAM: RADIOLOGY/ANKLE LEFT 2 VIEW ? EX. D/ (1005) ? CLINICAL INFORMATION: ? LEFT ANKLE PAIN. XRAYS DONE AT [facility] ? INDICATION:History of an ankle inversion with [...] CC: ? Transcribed Date/Time: 04/04/2015 (1143) ? Dock Associate: ? Printed Date/Time: 12/13/2018 (0456) ? PAGE 1 ? Signed Report ? Procedure Note Bong Mead MD - 05/09/2019 EXAM: RADIOLOGY/ANKLE LEFT 2 VIEW EX. D/ (1005) CLINICAL INFORMATION: LEFT ANKLE PAIN. XRAYS DONE AT [facility] INDICATION:History of an ankle inversion with worsening [...] Mead MD CC: Transcribed Date/Time: 04/04/2015 (1143) Dock Associate: Printed Date/Time: 12/13/2018 (2384) PAGE 1 Signed Report Vivi Garcias MD IMG DIAGNOSTIC IMAGING ORDERABLES Final Result documented in this encounter Visit Diagnoses Not on filedocumented in this encounter Care Teams Launch Leader Relationship Specialty Start Date End Date None, Provider PCP - General 04/02/15 02/12/19 Serafin Saucedo MD [address] [place] [phone] PCP - General 02/13/19 04/25/20 documented as of this encounter
--- OUTSIDE RECORDS SUMMARY | 2024-05-25 12:50 | XMS_ITS | Encounter Summary ---
Author Organization [facility] Address [address] [place] [address] Care Team Providers Care Client Development Consultant Name Role Phone Unknown, Provider Primary Care Provider Unava ilable None, Provider Primary Care Provider Serafin Zapata MD Primary Care Provider [phone]- [phone] Encounter Details Date Type Department Care Team (Late st Contact Info) Description 02/17/2013 Historical Results Only [facility] - [facility] [place] [address] [place] [phone] Mila Morrell MD [address] [place] [address], [address] [place] [address] Social History Tobacco Use [...] Contact Info) Description 09/21/2024 8:15 EDT Telemedicine [facility] Rheumatology [address] [place] [address] Venecia Vega MD [address] [place] [address] [address] [place] [address] documented as of this encounter Procedures Procedure Name Priority Date/Time Associated Diagnosis Comments PAP TEST Routine 02/17/2013 documented in this encounter Results * PAP TEST (02/17/2013) 02/17/2013 02/18/2013 10: [address] [facility] - 02/23/2013 9:13 EDT ----- ------- Name: DEVIKA VICENTE ?: 81 ?Age/Sex: 34/F ?Unit#: [id number] ? Loc: AGO ? Status: REG POV ?? Reg Date: 02/17/13 ? Pt.Phone Number: ? ----- ------- Specimen: [id number] ?STATUS: SOUT ?Spec Date:02/17/13 ? Physician Copies: ?Glaess,Mila MTZ ?? Tissues: ? Cervical/Endo Pap ?Serafin Saucedo MD CPT: 46191 ?? Units: ??1 ----- ------- ? CYTOLOGY DIAGNOSIS SPECIMEN ADEQUACY: ?Satisfactory for evaluation. Transformation zone component present. GENERAL CATEGORIZATION: ?Negative for Intraepithelial Lesion or Malignancy DESCRIPTIVE DIAGNOSIS: ? Negative for Intraepithelial Lesion or Malignancy. RECOMMENDATIONS/COMMENTS: ?None. ----- ------- ORDER QUERIES: LMP: [id number] ?? - ? N Post ? Y [...] confirmed the above diagnosis. Test Performed by [facility], [address] [place] [id number] License Distributor: Rhona Brown MD PHD ----- ------- us Mila Morrell MD PATHOLOGY ORDERABLES Final Re sult [facility] documented in this encounter Visit Diagnoses Not on filedocumented in this encounter Care Teams Client Development Consultant Relationship Specialty Start Date End Date Unknown, Provider, PCP - General 07/31/13 04/01/15 None, Provider PCP - General 04/02/15 02/12/19 Serafin Saucedo MD [address] [place] [phone] PCP - General 02/13/19 04/25/20 documented as of this encounter
== END 2024-05-25 12:33 | disposition home or self-care (01) ==
LOC: NCHCN 12:32
PROVIDERS: PCP Registered Nurse; Visit Provider Family Medicine
DX: Z11.51 Encounter for screening for human papillomavirus (HPV) (principal); Z01.419 Encounter for gynecological examination (general) (routine) without abnormal findings
CPT/HCPCS: 88142; 87624

== ENCOUNTER 2024-09-18 13:44 | Outpatient (REF) | payer MEDICAID, SELFPAY ==
[2024-09-18 14:50] LABS: Abs Immature Grans 0.03 10^3/uL (0.0-0.06); Absolute Basophil Count 0.06 10^3/uL (0.0-0.2); Absolute Eosinophil Count 0.48 10^3/uL (0.0-0.7); Absolute Lymphocyte Count 3.87 10^3/uL (1.2-3.4); Absolute Monocyte Count 0.74 10^3/uL (0.1-0.8); Absolute Neutrophil Count 3.65 10^3/uL (1.2-6.7); Basophils % 0.7 %; Eosinophils % 5.4 %; HCT 44.8 % (36.0-46.0); HGB 14.9 g/dL (11.2-15.7); Immature Grans % 0.3 %; Lymphocytes % 43.8 %; MCH 30.7 pg (27.0-33.0); MCHC 33.3 % (32.0-36.0); MCV 92 fL (80-95); MPV 9.6 fL (8.0-11.0); Monocytes % 8.4 %; Neutrophils % 41.4 %; Platelet Count 424 10^3/uL (130-400); RBC 4.86 10^6/uL (3.93-5.22); RDW 13.6 % (11.7-14.6); RDW-SD 46.2 fL; WBC 8.83 10^3/uL (4.4-10.8)
[2024-09-18 15:04] LABS: ALT 50 U/L (14-59); AST 39 U/L (15-37); Alkaline Phosphatase 70 U/L (46-116); Anion Gap 8.8 mmol/L (3-11); BUN 7 mg/dL (7-18); Bilirubin, Total 0.7 mg/dL (0.2-1.0); C-Reactive Protein 0.58 mg/dL (<or=0.5); CO2 27.2 mmol/L (21.0-32.0); CREATININE 0.9 mg/dL (0.55-1.02); Calcium 9.3 mg/dL (8.5-10.1); Chloride 104 mmol/L (98-107); Estimated GFR 82.37 (mL/min/1.73m2); Glucose 101 mg/dL (74-106); Potassium 3.6 mmol/L (3.5-5.1); Sodium 140 mmol/L (136-145); Total Protein 7.9 g/dL (6.4-8.2)
[2024-09-18 15:11] LABS: TSH 1.35 uIU/mL (0.36-3.74)
[2024-09-18 22:03] LABS: T4, Free 1.2 ng/dL (0.8-2.2)
== END 2024-09-18 13:45 | disposition home or self-care (01) ==
LOC: LBN 13:44
PROVIDERS: Family Medicine; PCP Registered Nurse; Visit Provider Internal Medicine Rheumatology
DX: R94.6 Abnormal results of thyroid function studies (principal); M45.0 Ankylosing spondylitis of multiple sites in spine; Z79.899 Other long term (current) drug therapy
CPT/HCPCS: 80053; 84439; 84443; 85025; 86140

== ENCOUNTER 2025-02-06 16:19 | Outpatient (REF) | payer MEDICAID, SELFPAY | END 2025-02-06 16:20 | disposition home or self-care (01) | LOC: LBN 16:19 | PROVIDERS: PCP Registered Nurse; Visit Provider Nurse Practitioner Family | DX: L02.419 Cutaneous abscess of limb, unspecified (principal) | CPT/HCPCS: 87077; 87070; 87186; 87205 ==

== ENCOUNTER 2025-02-20 16:29 | Outpatient (REF) | payer MEDICAID, SELFPAY ==
[2025-02-20 17:45] LABS: Abs Immature Grans 0.03 10^3/uL (0.0-0.06); HCT 42.5 % (36.0-46.0); HGB 13.7 g/dL (11.2-15.7); Immature Grans % 0.3 %; MCH 30.2 pg (27.0-33.0); MCHC 32.2 % (32.0-36.0); MCV 94 fL (80-95); MPV 9.8 fL (8.0-11.0); Platelet Count 439 10^3/uL (130-400); RBC 4.53 10^6/uL (3.93-5.22); RDW 13.3 % (11.7-14.6); RDW-SD 45.9 fL; WBC 10.32 10^3/uL (4.4-10.8)
[2025-02-20 17:54] LABS: ALT 59 U/L (14-59); AST 33 U/L (15-37); Albumin 3.7 g/dL (3.4-5.0); Alkaline Phosphatase 70 U/L (46-116); Anion Gap 8.4 mmol/L (3-11); BUN 9 mg/dL (7-18); Bilirubin, Total 0.5 mg/dL (0.2-1.0); C-Reactive Protein 0.85 mg/dL (<or=0.5); CO2 28.6 mmol/L (21.0-32.0); Calcium 8.7 mg/dL (8.5-10.1); Chloride 104 mmol/L (98-107); Estimated GFR 111.36 (mL/min/1.73m2); Glucose 95 mg/dL (74-106); Potassium 4.1 mmol/L (3.5-5.1); Sodium 141 mmol/L (136-145); Total Protein 7.1 g/dL (6.4-8.2)
[2025-02-20 18:19] LABS: Ferritin 131 ng/mL (8-252)
== END 2025-02-20 16:30 | disposition home or self-care (01) ==
LOC: LBN 16:29
PROVIDERS: PCP Registered Nurse; Visit Provider Internal Medicine Rheumatology
DX: D50.8 Other iron deficiency anemias (principal); Z79.899 Other long term (current) drug therapy; M45.0 Ankylosing spondylitis of multiple sites in spine
CPT/HCPCS: 80053; 82728; 85025; 86140

== ENCOUNTER 2025-04-24 20:57 | Outpatient (REF) | payer MEDICAID, SELFPAY | END 2025-04-24 20:58 | disposition home or self-care (01) | LOC: NCHCN 20:57 | PROVIDERS: PCP Registered Nurse; Visit Provider Physician Assistant | DX: R30.0 Dysuria (principal) | CPT/HCPCS: 87086 ==

== ENCOUNTER 2025-05-02 21:03 | Outpatient (REF) | payer MEDICAID, SELFPAY ==
[2025-05-02 21:35] LABS: ESR 7 mm/hr (0-20)
[2025-05-02 21:36] LABS: Abs Immature Grans 0.04 10^3/uL (0.0-0.06); HCT 42.2 % (36.0-46.0); HGB 14.1 g/dL (11.2-15.7); Immature Grans % 0.3 %; MCH 31.0 pg (27.0-33.0); MCHC 33.4 % (32.0-36.0); MCV 93 fL (80-95); MPV 9.7 fL (8.0-11.0); Platelet Count 465 10^3/uL (130-400); RBC 4.55 10^6/uL (3.93-5.22); RDW 13.1 % (11.7-14.6); RDW-SD 44.9 fL; WBC 11.52 10^3/uL (4.4-10.8)
[2025-05-02 21:52] LABS: ALT 86 U/L (14-59); AST 48 U/L (15-37); Albumin 3.9 g/dL (3.4-5.0); Alkaline Phosphatase 74 U/L (46-116); Anion Gap 7.8 mmol/L (3-11); BUN 11 mg/dL (7-18); Bilirubin, Total 0.4 mg/dL (0.2-1.0); CO2 26.2 mmol/L (21.0-32.0); Calcium 9.0 mg/dL (8.5-10.1); Chloride 103 mmol/L (98-107); Estimated GFR 94.87 (mL/min/1.73m2); Glucose 98 mg/dL (74-106); Potassium 4.1 mmol/L (3.5-5.1); Sodium 137 mmol/L (136-145); TSH (W/Ref FT4) 1.30 uIU/mL (0.36-3.74); Total Protein 7.6 g/dL (6.4-8.2)
[2025-05-02 22:00] LABS: RBC Morphology Normal
[2025-05-03 17:59] LABS: CRP, High Sensitivity 2.94 mg/L (See Note)
== END 2025-05-02 21:04 | disposition home or self-care (01) ==
LOC: NCHCN 21:03
PROVIDERS: PCP Registered Nurse; Visit Provider Family Medicine
DX: R51.9 Headache, unspecified (principal)
CPT/HCPCS: 80053; 85652; 86141; 84443; 85025